=== PATIENT | female | born 1970 | race Caucasian/White ===

== ENCOUNTER 2019-05-10 12:49 | Emergency (ER) | payer OTHER, SELFPAY ==
[2019-05-10 13:05] VITALS: BP 131/86; PULSE 69; RESP 20; TEMP 37.6; O2SAT 100
--- NOTE | 2019-05-10 14:15 | ED.URI ---
HPI - URI/Sore Throat General Chief Complaint: Urogenital-Female Stated Complaint: chest cogestion/poss bladder infect Time Seen by Provider: 05/10/19 14:16 Source: patient and RN notes reviewed Mode of arrival: ambulatory Limitations: no limitations History of Present Illness HPI Narrative: 48 year old female who presents to express care with complaints of 3 day history of cough with expectoration of green mucous, itching ears, sinus congestion and headache, states that she has had some shortness of breath and wheezing when she lays down, has been taking Tylenol for her discomfort.She denies any shortness of breath or any wheezing at this time with lungs clear to auscultation, SAO2 100% on room air. Patient states also 3 days history of burning, frequency, urgency, dribbling,strong odor of urine and right lower abdomen pain which she rates as a 3/10. Patient denies any incidence of nausea or vomiting, or diarrhea or any flank pain, denies any known fevers at home.Patient denies any vaginal discharge or itching. MD elicited complaint: cough, rhinorrhea, nasal congestion and other (headache and UTI symptoms) Onset (ago): day(s) (3) Consistency: constant Severity: mild Pain scale (0-10): 3 Description of mucous: green Able to tolerate fluids by mouth: Yes Exacerbating factors: exertion and deep breaths Relieving factors: nothing Context: sick contacts (mother ill also) Associated symptoms: headache, rhinorrhea, nasal congestion, cough, abdominal pain, dysuria and other Treatments prior to arrival: acetaminophen Related Data Home Medications Medication Instructions Recorded Confirmed aripiprazole 20 mg PO DAILY 05/10/19 05/10/19 baclofen 20 mg PO TID 05/10/19 05/10/19 bupropion HCl 300 mg PO QAM 05/10/19 05/10/19 famotidine 20 mg PO BID 05/10/19 05/10/19 gabapentin 300 mg PO BID 05/10/19 05/10/19 levothyroxine 50 mcg PO DAILY 05/10/19 05/10/19 losartan 100 mg PO DAILY 05/10/19 05/10/19 mag [id number] rt xt tablet PO 05/10/19 omeprazole 40 mg PO DAILY 05/10/19 05/10/19 sertraline 100 mg PO DAILY 05/10/19 05/10/19 simvastatin 10 mg PO DAILY 05/10/19 05/10/19 trazodone 100 mg PO HS 05/10/19 05/10/19 triamterene-hydrochlorothiazid 1 tablet PO QAM 05/10/19 05/10/19 Allergies Allergy/AdvReac Type Severity Reaction Status Date / Time Sulfa (Sulfonamide Allergy Unknown Hives / Verified 09/15/18 11:47 Antibiotics) Red Face Review of Systems Review of Systems: Narrative: CONSTITUTIONAL: Reports no known fever, chills, or sweats. EYES: Denies visual changes, redness, or discharge. ENT:Positive rhinorrhea, congestion, no sore throat, itching ears. CARDIOVASCULAR: Denies chest pain, palpitations, or edema. RESPIRATORY:positive cough, reports dyspnea and wheezing when she lays down GASTROINTESTINAL: reports right lower abdominal pain,no nausea, vomiting, or diarrhea. GENITOURINARY: reports dysuria, urgency, dribbling strong odor to urine, no visible hematuria. SKIN: Denies rash or itching. MUSCULOSKELETAL: Denies back pain, joint pain, or myalgia. NEUROLOGIC:positive frontal headache, no numbness, or weakness. PSYCHIATRIC:History of anxiety or depression. All systems reviewed & are unremarkable except as noted in HPI and below PMFSH Past Medical History Medical History (Updated 05/13/19 @ 11:54 by Savanna Magallon NP) Arthritis Bipolar 1 disorder Chronic low back pain Depression GERD (gastroesophageal reflux disease) Hyperlipidemia Hypertension Hypothyroidism UTI (urinary tract infection) Vaginal yeast infection Surgical History Surgical History (Updated 05/13/19 @ 11:40 by Savanna Magallon NP) History of cholecystectomy Previous section Social History Social History (Updated 05/13/19 @ 11:46 by Savanna Magallon NP) Smoking status: Former smoker Living arrangements: with family Gender identity (if verbalized by the patient): Female Comments At time of signature, agree with nursing past me
--- NOTE | 2019-05-10 14:35 | PC.NURSE ---
NO UC ORDERED PER ANUEL
== END 2019-05-10 14:50 | disposition home or self-care (01) ==
PROVIDERS: Emergency Provider Registered Nurse; PCP Internal Medicine
DX: R30.0 Dysuria (principal); J06.9 Acute upper respiratory infection, unspecified; M19.90 Unspecified osteoarthritis, unspecified site; F32.9 Major depressive disorder, single episode, unspecified; K21.9 Gastro-esophageal reflux disease without esophagitis; E78.5 Hyperlipidemia, unspecified; I10 Essential (primary) hypertension; E03.9 Hypothyroidism, unspecified; Z87.891 Personal history of nicotine dependence
CPT/HCPCS: 81003; 87086; 87088; 99213; G0463

== ENCOUNTER 2021-07-02 15:39 | Emergency (ER) | payer OTHER, SELFPAY ==
--- NOTE | ~2021-07-02 | XR_ITS ---
EXAMINATION: XR chest 2V DATE: 07/02/2021 16:20 INDICATION: Cough TECHNIQUE: Frontal and lateral views of the chest are obtained COMPARISON: None available FINDINGS: The lungs are free of acute opacities. There is no pleural effusion or pneumothorax. The ca rdiomediastinal silhouette is normal. There is mild thoracic spondylosis. IMPRESSION: 1. No acute cardiopulmonary abnormality. Reviewed, dictated and finalized at location B.
[2021-07-02 15:47] VITALS: BP 130/82; PULSE 109; RESP 18; TEMP 36.8; O2SAT 98
--- NOTE | 2021-07-02 16:11 | ED.URI ---
HPI - URI/Sore Throat General Chief Complaint: Upper Respiratory Infection Stated Complaint: cough congestion Time Seen by Provider: 07/02/21 15:54 Source: patient and RN notes reviewed Mode of arrival: ambulatory Limitations: no limitations History of Present Illness HPI Narrative: Patient presents today complaining of a 4-day history of cough, mild shortness of breath, postnasal drip, nasal congestion. She has been taking Coricidin, Mucinex D with mild relief. Denies history of asthma, COPD. Denies fever. She is a non-smoker. MD elicited complaint: cough Related Data Home Medications Medication Instructions Recorded Confirmed aripiprazole 20 mg PO DAILY 05/10/19 07/02/21 baclofen 20 mg PO TID 05/10/19 07/02/21 levothyroxine 50 mcg PO DAILY 05/10/19 07/02/21 losartan 100 mg PO DAILY 05/10/19 07/02/21 simvastatin 10 mg PO DAILY 05/10/19 07/02/21 trazodone 100 mg PO HS 05/10/19 07/02/21 triamterene-hydrochlorothiazid 1 tablet PO QAM 05/10/19 07/02/21 diclofenac sodium 75 mg PO BID 07/02/21 07/02/21 dulaglutide [Trulicity] See Rx Instructions .ROUTE .COMPLEX 07/02/21 07/02/21 duloxetine [Cymbalta] 60 mg PO DAILY 07/02/21 07/02/21 fluconazole See Rx Instructions .ROUTE .COMPLEX 07/02/21 07/02/21 metoprolol succinate 12.5 mg PO DAILY 07/02/21 07/02/21 metronidazole See Rx Instructions .ROUTE .COMPLEX 07/02/21 07/02/21 omeprazole 40 mg PO DAILY 07/02/21 07/02/21 pregabalin 150 mg PO BID 07/02/21 07/02/21 sertraline 150 mg PO DAILY 07/02/21 07/02/21 Allergies Allergy/AdvReac Type Severity Reaction Status Date / Time Sulfa (Sulfonamide Allergy Unknown Hives / Verified 07/02/21 15:45 Antibiotics) Red Face Review of Systems Review of Systems: CONSTITUTIONAL: Denies body aches, fever, chills, or sweats. EYES: Denies visual changes, redness, or discharge. ENT: Denies rhinorrhea, sore throat, or otalgia.+ Congestion, postnasal drip CARDIOVASCULAR: Denies chest pain, palpitations, or edema. RESPIRATORY: + Cough, shortness of breath GASTROINTESTINAL: Denies abdominal pain, nausea, vomiting, or diarrhea. GENITOURINARY: Denies dysuria or hematuria. SKIN: Denies rash, itching, or wounds. MUSCULOSKELETAL: Denies back pain, joint pain, or myalgia. NEUROLOGIC: Denies headache, numbness, tingling, or weakness. PSYCH: Denies depression or anxiety. [facility] Past Medical History Medical History Arthritis Bipolar 1 disorder Chronic low back pain Depression GERD (gastroesophageal reflux disease) Hyperlipidemia Hypertension Hypothyroidism UTI (urinary tract infection) Vaginal yeast infection Surgical History Surgical History History of cholecystectomy Previous section Social History Social History Smoking status: Former smoker Gender identity (if verbalized by the patient): Female Comments At time of signature, I have reviewed and agree with nursing past medical, surgical, social and family history unless otherwise noted. Please see nursing chart for further information. There is no relevant family history pertinent to the presenting complaint Exam Narrative: GENERAL: Mildly ill-appearing, well-nourished, and in no acute distress. HEAD: Normocephalic, atraumatic. EYES: EOMI. No redness or drainage. Conjunctivae normal. ENT: Mucous membranes pink and moist. Nares clear. No rhinorrhea. TMs normal bilaterally. Throat normal. Uvula midline. NECK: Normal AROM. Supple. No lymphadenopathy. CHEST: No respiratory distress. Slight inspiratory wheeze in the left upper lobe. Slight end expiratory wheeze throughout. HEART: Regular rate and rhythm. No murmur appreciated. Normal peripheral pulses. EXTREMITIES: Normal range of motion. No edema. SKIN: Warm, dry, no rash. Capillary refill normal. Normal skin turgor. NEURO: No focal deficits
== END 2021-07-02 16:51 | disposition home or self-care (01) ==
PROVIDERS: Emergency Provider Nurse Practitioner; PCP Internal Medicine
DX: J40 Bronchitis, not specified as acute or chronic (principal); J06.9 Acute upper respiratory infection, unspecified; R05.9 Cough, unspecified; E78.5 Hyperlipidemia, unspecified; I10 Essential (primary) hypertension; E03.9 Hypothyroidism, unspecified; Z87.891 Personal history of nicotine dependence
CPT/HCPCS: 71046; 99213; G0463

== ENCOUNTER 2021-11-14 15:51 | Emergency (ER) | payer OTHER, SELFPAY ==
[2021-11-14 15:59] VITALS: PULSE 85; RESP 20; TEMP 36.4; O2SAT 100
[2021-11-14 16:00] VITALS: BP 150/70
--- NOTE | 2021-11-14 17:00 | ED.FEMALEGU ---
HPI - Female Genitourinary General Chief complaint: Urogenital-Female Stated complaint: poss bladder infection Source: patient, RN notes reviewed and old records reviewed Mode of arrival: ambulatory Limitations: no limitations History of Present Illness HPI Narrative: 50 year old female presents to express care with complaints of 3-week history of lower abdominal pain, burning with urination states history of urinary tract infections and trichomonas. Patient reports that she is sexually active without use of protection, denies present menses states has not had a period for 2 years. Patient reports that she has no vaginal discharge or any vaginal itching, denies any back pain. MD elicited complaint: dysuria, UTI and other (history of trichomonas) Onset (ago): week(s) (3) Severity scale (1-10): 5 Related Data Home Medications Medication Instructions Recorded Confirmed aripiprazole 20 mg tablet 20 mg PO DAILY 05/10/19 11/14/21 baclofen 5 mg tablet 20 mg PO TID 05/10/19 11/14/21 levothyroxine 50 mcg tablet 50 mcg PO DAILY 05/10/19 11/14/21 losartan 100 mg tablet 100 mg PO DAILY 05/10/19 11/14/21 simvastatin 10 mg tablet 10 mg PO DAILY 05/10/19 11/14/21 trazodone 100 mg tablet 100 mg PO HS 05/10/19 11/14/21 triamterene 37.5 1 tablet PO QAM 05/10/19 11/14/21 mg-hydrochlorothiazide 25 mg tablet diclofenac sodium 75 mg 75 mg PO BID 07/02/21 11/14/21 tablet,delayed release dulaglutide 0.75 mg/0.5 mL See Rx Instructions .Route .COMPLEX 07/02/21 11/14/21 subcutaneous pen injector (Trulicity) duloxetine 60 mg capsule,delayed 60 mg PO DAILY 07/02/21 11/14/21 release (Cymbalta) metoprolol succinate 25 mg 12.5 mg PO DAILY 07/02/21 11/14/21 tablet,extended release 24 hr metronidazole 500 mg tablet See Rx Instructions .Route .COMPLEX 07/02/21 11/14/21 omeprazole 40 mg capsule,delayed 40 mg PO DAILY 07/02/21 11/14/21 release pregabalin 150 mg capsule 150 mg PO BID 05/06/22 09/18/22 sertraline 150 mg capsule 150 mg PO DAILY 07/02/21 11/14/21 Allergies Allergy/AdvReac Type Severity Reaction Status Date / Time Sulfa (Sulfonamide Allergy Unknown Hives / Verified 11/14/21 16:21 Antibiotics) Red Face Review of Systems Review of Systems: CONSTITUTIONAL: Denies fever, chills, or sweats. EYES: Denies visual changes, redness, or discharge. ENT: Denies rhinorrhea, congestion, sore throat, or otalgia. CARDIOVASCULAR: Denies chest pain, palpitations, or edema. RESPIRATORY: Denies cough or dyspnea. GASTROINTESTINAL: lower medial abdominal pain, no nausea, vomiting, or diarrhea. GENITOURINARY: positive for dysuria no hematuria. SKIN: Denies rash or itching. MUSCULOSKELETAL: Denies back pain, joint pain, or myalgia. NEUROLOGIC: Denies headache, numbness, or weakness. PSYCHIATRIC:Positive history of anxiety or depression. All systems reviewed & are unremarkable except as noted in HPI and below PMFSH Past Medical History Medical History Arthritis Bipolar 1 disorder Chronic low back pain Depression GERD (gastroesophageal reflux disease) Hyperlipidemia Hypertension Hypothyroidism UTI (urinary tract infection) Vaginal yeast infection Surgical History Surgical History History of cholecystectomy Previous section Social History Social History Smoking status: Former smoker Gender identity (if verbalized by the patient): Female Comments At time of signature, agree with nursing past medical, surgical, social and family history. There is no relevant family history pertinent to the presenting complaint Exam Narrative: GENERAL: Well-appearing, well-nourished, and in no acute distress. HEAD: Normocephalic, atraumatic. EYES: PERRLA and EOMI. ENT: Nares clear, no rhinorrhea or epistaxis. Mucous membranes moist.TM's normal with good light reflex, throa
[2021-11-14] MEDS: cefTRIAXone 500 MG, LIDOCAINE HCL 1% LOCAL INJ 1 ML IM (17:16)
== END 2021-11-14 17:40 | disposition home or self-care (01) ==
PROVIDERS: Emergency Provider Registered Nurse; PCP Internal Medicine
DX: R30.0 Dysuria (principal); Z20.2 Contact with and (suspected) exposure to infections with a predominantly sexual mode of transmission; M19.90 Unspecified osteoarthritis, unspecified site; K21.9 Gastro-esophageal reflux disease without esophagitis; E78.5 Hyperlipidemia, unspecified; I10 Essential (primary) hypertension; E03.9 Hypothyroidism, unspecified; F32.A Depression, unspecified
CPT/HCPCS: 81003; 87077; 87086; 87186; 87491; 87591; 87661; 96372; 99214; G0463; J0696

== ENCOUNTER 2022-03-04 14:05 | Emergency (ER) | payer OTHER, SELFPAY ==
[2022-03-04 14:10] VITALS: BP 138/106; PULSE 123; RESP 24; TEMP 36.9; O2SAT 98
--- NOTE | 2022-03-04 14:15 | ED.URI ---
HPI - URI/Sore Throat General Chief Complaint: Upper Respiratory Infection Stated Complaint: cold cough Time Seen by Provider: 03/04/22 14:15 Source: patient Mode of arrival: ambulatory Limitations: no limitations History of Present Illness HPI Narrative: Alona is a 51-year-old female patient presenting to the clinic today with complaints of nasal congestion, cough, and sinus pressure x3 weeks. She reports she is having yellow nasal drainage and a productive cough with green phlegm. States she is slightly short of breath. MD elicited complaint: sore throat and nasal congestion Related Data Home Medications Medication Instructions Recorded Confirmed aripiprazole 20 mg tablet 20 mg PO DAILY 05/10/19 03/04/22 baclofen 5 mg tablet 20 mg PO TID 05/10/19 03/04/22 levothyroxine 50 mcg tablet 50 mcg PO DAILY 05/10/19 03/04/22 losartan 100 mg tablet 100 mg PO DAILY 05/10/19 03/04/22 simvastatin 10 mg tablet 10 mg PO DAILY 05/10/19 03/04/22 trazodone 100 mg tablet 100 mg PO HS 05/10/19 03/04/22 triamterene 37.5 1 tablet PO QAM 05/10/19 03/04/22 mg-hydrochlorothiazide 25 mg tablet diclofenac sodium 75 mg 75 mg PO BID 07/02/21 03/04/22 tablet,delayed release duloxetine 60 mg capsule,delayed 60 mg PO DAILY 07/02/21 03/04/22 release (Cymbalta) metoprolol succinate 25 mg 12.5 mg PO DAILY 07/02/21 03/04/22 tablet,extended release 24 hr omeprazole 40 mg capsule,delayed 40 mg PO DAILY 07/02/21 03/04/22 release pregabalin 150 mg capsule 150 mg PO BID 07/02/21 03/04/22 sertraline 150 mg capsule 150 mg PO DAILY 07/02/21 03/04/22 Allergies Allergy/AdvReac Type Severity Reaction Status Date / Time Sulfa (Sulfonamide Allergy Unknown Hives / Verified 03/04/22 14:15 Antibiotics) Red Face Review of Systems Review of Systems: Pertinent positives per HPI. Patient denies any fever, chills, rash, headache, visual changes, dizziness, cough, shortness of breath, chest pain, palpitations, nausea, vomiting, diarrhea, constipation, abdominal pain, or any urinary issues. PMFSH Past Medical History Medical History Arthritis Bipolar 1 disorder Chronic low back pain Depression GERD (gastroesophageal reflux disease) Hyperlipidemia Hypertension Hypothyroidism UTI (urinary tract infection) Vaginal yeast infection Surgical History Surgical History History of cholecystectomy Previous section Social History Social History Smoking status: Former smoker Gender identity (if verbalized by the patient): Female Comments At the time of my signature, I reviewed and agree with the nursing past medical, surgical, social, and family history. There is no relevant family history pertinent to the patient complaint. Exam Narrative: General: Well-developed, obese, in no apparent distress Head: Normocephalic, atraumatic Eyes: Pupils equally round and reactive to light bilaterally, EOM intact, sclera and conjunctive clear, no discharge, lids normal Ears: TMs intact and clear, ear canals clear, no drainage, grossly hearing normal. Nose: Nares patent, yellow nasal discharge, moderate inflammation, maxillary and frontal sinus tenderness. Mouth: Oral pharynx without lesions or masses, good dentition, MMM. postnasal drip, oropharynx red Neck: Supple, trachea midline, no enlargement of anterior or posterior cervical nodes, no thyroid masses or goiter palpable. Cardio: Regular rate and rhythm, s1 and s2 normal, no murmur appreciated. Resp: Clear to auscultation bilaterally, no rhonchi, rales, wheezing or rubs Course Course Emergency Course: Portions of this record may have been created with voice recognition software. Level of Care: Express Care Visit Vital Signs Vital signs: Vital Signs Temperature 36.9 C 03/04/22 14:10 Pulse Rate 1
== END 2022-03-04 14:28 | disposition home or self-care (01) ==
PROVIDERS: Emergency Provider Nurse Practitioner Family; PCP Internal Medicine
DX: J01.90 Acute sinusitis, unspecified (principal); M19.90 Unspecified osteoarthritis, unspecified site; K21.9 Gastro-esophageal reflux disease without esophagitis; E78.5 Hyperlipidemia, unspecified; I10 Essential (primary) hypertension; E03.9 Hypothyroidism, unspecified; F32.A Depression, unspecified
CPT/HCPCS: 99213; G0463

== ENCOUNTER 2022-07-13 14:11 | Emergency (ER) | payer OTHER, SELFPAY ==
[2022-07-13 14:15] VITALS: BP 130/80; PULSE 110; RESP 18; TEMP 37.4; O2SAT 98
--- NOTE | 2022-07-13 14:25 | ED.URI ---
HPI - URI/Sore Throat General Chief Complaint: Upper Respiratory Infection Stated Complaint: Headache/Congestion Time Seen by Provider: 07/13/22 14:25 Source: patient Mode of arrival: ambulatory Limitations: no limitations History of Present Illness HPI Narrative: 51 yo F presents with c/o nasal congestion, facial pain, bilateral ear pressure, PND and sore throat for 10 days. Has tried benadryl with no relief of symptoms. Afebrile. Also states had burning with urination this morning one time. No other urinary symptoms since. All systems reviewed and negative except as noted above. Related Data Home Medications Medication Instructions Recorded Confirmed aripiprazole 20 mg tablet 20 mg PO DAILY 05/10/19 03/04/22 baclofen 5 mg tablet 20 mg PO TID 05/10/19 03/04/22 levothyroxine 50 mcg tablet 50 mcg PO DAILY 05/10/19 03/04/22 losartan 100 mg tablet 100 mg PO DAILY 05/10/19 03/04/22 simvastatin 10 mg tablet 10 mg PO DAILY 05/10/19 03/04/22 trazodone 100 mg tablet 100 mg PO HS 05/10/19 03/04/22 triamterene 37.5 1 tablet PO QAM 05/10/19 03/04/22 mg-hydrochlorothiazide 25 mg tablet diclofenac sodium 75 mg 75 mg PO BID 07/02/21 03/04/22 tablet,delayed release duloxetine 60 mg capsule,delayed 60 mg PO DAILY 07/02/21 03/04/22 release (Cymbalta) metoprolol succinate 25 mg 12.5 mg PO DAILY 07/02/21 03/04/22 tablet,extended release 24 hr omeprazole 40 mg capsule,delayed 40 mg PO DAILY 07/02/21 03/04/22 release pregabalin 150 mg capsule 150 mg PO BID 07/02/21 03/04/22 sertraline 150 mg capsule 150 mg PO DAILY 07/02/21 03/04/22 Allergies Allergy/AdvReac Type Severity Reaction Status Date / Time Sulfa (Sulfonamide Allergy Unknown Hives / Verified 03/04/22 14:15 Antibiotics) Red Face Review of Systems Review of Systems: CONSTITUTIONAL: Denies fever, chills, or sweats. EYES: Denies visual changes, redness, or discharge. ENT: Reports rhinorrhea, congestion, facial pain sore throat, bilateral ear pressure. CARDIOVASCULAR: Denies chest pain, palpitations, or edema. RESPIRATORY: Denies cough or dyspnea. GASTROINTESTINAL: Denies abdominal pain, nausea, vomiting, or diarrhea. GENITOURINARY: Reports dysuria. Denies hematuria. SKIN: Denies rash or itching. MUSCULOSKELETAL: Denies back pain, joint pain, or myalgia. NEUROLOGIC: Denies headache, numbness, or weakness. PSYCHIATRIC: Denies anxiety or depression. All other systems reviewed are negative, except as documented in HPI. [facility] Past Medical History Medical History Arthritis Bipolar 1 disorder Chronic low back pain Depression GERD (gastroesophageal reflux disease) Hyperlipidemia Hypertension Hypothyroidism UTI (urinary tract infection) Vaginal yeast infection Surgical History Surgical History History of cholecystectomy Previous section Social History Social History Smoking status: Former smoker Living arrangements: with family Gender identity (if verbalized by the patient): Female Comments At time of signature, agree with nursing past medical, surgical, social and family history. There is no relevant family history pertinent to the presenting complaint. Exam Narrative: GENERAL: This is a well-nourished, well-developed patient, in no apparent distress. HEAD: normocephalic, atraumatic. EYES: PERRL. Sclera clear/white. Vision is grossly intact. EARS: External ears normal, auditory canals clear and without drainage, fluid bilateral TMs without perforation. NOSE: External nose normal with moderate congestion, clear nasal drainage. Bilateral maxillary sinus tenderness. THROAT: Mucous membranes moist, erythema with swelling, clear postnasal drainage. NECK: Neck supple, non-tender without lymphadenopathy, masses or thyromegaly. CARDIOVASCULAR: Regular rate a
== END 2022-07-13 14:39 | disposition home or self-care (01) ==
PROVIDERS: Emergency Provider Nurse Practitioner Family; PCP Internal Medicine
DX: J01.90 Acute sinusitis, unspecified (principal); R30.0 Dysuria; M19.90 Unspecified osteoarthritis, unspecified site; K21.9 Gastro-esophageal reflux disease without esophagitis; I10 Essential (primary) hypertension; E03.9 Hypothyroidism, unspecified; F32.A Depression, unspecified
CPT/HCPCS: 81003; 99213; G0463

== ENCOUNTER 2022-11-29 17:19 | Emergency (ER) | payer OTHER, SELFPAY ==
[2022-11-29 17:30] VITALS: BP 135/97; PULSE 89; RESP 20; TEMP 36.7; O2SAT 95
== END 2022-11-29 17:57 | disposition left against medical advice (07) ==
PROVIDERS: Emergency Provider Registered Nurse; PCP Internal Medicine
DX: R21 Rash and other nonspecific skin eruption (principal)
CPT/HCPCS: 99199

== ENCOUNTER 2023-05-10 14:05 | Emergency (ER) | payer OTHER, SELFPAY ==
[2023-05-10 14:10] VITALS: BP 143/119; PULSE 88; RESP 22; TEMP 36.5; O2SAT 99
[2023-05-10 14:16] VITALS: BP 153/109
[2023-05-10 14:24] VITALS: BP 153/109; PULSE 88; RESP 22; TEMP 36.5; O2SAT 99
--- NOTE | 2023-05-10 14:46 | ED.URI ---
HPI - URI/Sore Throat General Chief Complaint: Upper Respiratory Infection Stated Complaint: long time cold symptoms Time Seen by Provider: 05/10/23 14:40 Source: patient, RN notes reviewed and old records reviewed Mode of arrival: ambulatory Limitations: no limitations History of Present Illness HPI Narrative: 52 year old female who presents to [facility] care with complaints of being ill for about a month and was hospitalized at [facility] for low oxygen saturation and discharged home on . Patient reports that she was sent home with nebulizer machine and albuterol , tessalon Perles, and steroids. Patient reports that she has bad headache today and cough continues with sinus congestion and drainage, denies sore throat or recent fevers. Patient reports that she did nebulizer treatment at 0600 today and has been taking Mucinex, has completed steroids. MD elicited complaint: cough, sore throat, rhinorrhea and nasal congestion Pertinent past history: sinusitis Onset (ago): week(s) (sick she reports month) Severity: moderate Description of mucous: green Treatments prior to arrival: other (nebulizer this morning and mucinex) Related Data Home Medications Medication Instructions Recorded Confirmed levothyroxine 50 mcg tablet 50 mcg PO DAILY 05/10/19 05/10/23 simvastatin 10 mg tablet 10 mg PO DAILY 05/10/19 05/10/23 trazodone 100 mg tablet 100 mg PO HS 05/10/19 05/10/23 triamterene 37.5 1 tablet PO QAM 05/10/19 05/10/23 mg-hydrochlorothiazide 25 mg tablet duloxetine 60 mg capsule,delayed 60 mg PO DAILY 07/02/21 05/10/23 release (Cymbalta) metoprolol succinate 25 mg 25 mg PO DAILY 07/02/21 05/10/23 tablet,extended release 24 hr omeprazole 40 mg capsule,delayed 40 mg PO DAILY 07/02/21 05/10/23 release albuterol sulfate 2.5 mg/3 mL 2.5 mg continuous nebulization 05/10/23 05/10/23 (0.083 %) solution for nebulization Q4-6H PRN Shortness Of Breath Or Wheezing aripiprazole 400 mg intramuscular 400 mg IM MONTHLY 05/10/23 05/10/23 suspension,extended release (Fahad Gregorya) benzonatate 100 mg capsule 100 mg PO Q8H PRN Cough 05/10/23 05/10/23 benztropine 0.5 mg tablet 0.5 mg PO DAILY 05/10/23 05/10/23 gabapentin 600 mg tablet 600 mg PO TID 05/10/23 05/10/23 hydroxyzine HCl 25 mg tablet 25 mg PO BID 05/10/23 05/10/23 irbesartan 150 mg tablet 150 mg PO DAILY 05/10/23 05/10/23 metformin 500 mg tablet,extended 500 mg PO DAILY 05/10/23 05/10/23 release 24 hr tizanidine 4 mg tablet 4 mg PO TID PRN Muscle Spasm 05/10/23 05/10/23 Allergies Allergy/AdvReac Type Severity Reaction Status Date / Time Sulfa (Sulfonamide Allergy Unknown Hives / Verified 05/10/23 14:13 Antibiotics) Red Face Review of Systems Review of Systems: CONSTITUTIONAL: Reports malaise,no recent chills, sweats, or fever. EYES: Denies visual changes, redness, or discharge. ENT: Reports rhinorrhea, congestion, sinus pain,no otalgia and no sore throat. CARDIOVASCULAR: Denies chest pain, palpitations, or edema. RESPIRATORY: Reports acute cough.? Denies acute dyspnea. GASTROINTESTINAL: Denies abdominal pain, nausea, vomiting, diarrhea SKIN: Denies rash or itching. MUSCULOSKELETAL: Denies myalgia. NEUROLOGIC: Reports headache. All systems reviewed & are unremarkable except as noted in HPI and below PMFSH Past Medical History Medical History Arthritis Bipolar 1 disorder Chronic low back pain Depression GERD (gastroesophageal reflux disease) Hyperlipidemia Hypertension Hypothyroidism UTI (urinary tract infection) Vaginal yeast infection Surgical History Surgical History History of cholecystectomy Previous section Social History Social History Smoking status: Former smoker Living arrangements: with family Gender identity (if verbalize
== END 2023-05-10 15:10 | disposition home or self-care (01) ==
PROVIDERS: Emergency Provider Registered Nurse; PCP Internal Medicine
DX: J01.40 Acute pansinusitis, unspecified (principal); M19.90 Unspecified osteoarthritis, unspecified site; K21.9 Gastro-esophageal reflux disease without esophagitis; E78.5 Hyperlipidemia, unspecified; I10 Essential (primary) hypertension; E03.9 Hypothyroidism, unspecified; F32.A Depression, unspecified
CPT/HCPCS: 99213; G0463

== ENCOUNTER 2023-07-17 14:22 | Emergency (ER) | payer OTHER, SELFPAY | END 2023-07-17 14:55 | disposition left against medical advice (07) | LOC: EXPBETH 14:25 | PROVIDERS: Emergency Provider Nurse Practitioner Family; PCP Internal Medicine | DX: Z53.21 Procedure and treatment not carried out due to patient leaving prior to being seen by health care provider (principal) | CPT/HCPCS: 99199 ==

== ENCOUNTER 2023-09-18 12:01 | Emergency (ER) | payer OTHER, SELFPAY ==
[2023-09-18 12:06] VITALS: BP 152/100; PULSE 90; RESP 20; TEMP 37.5; O2SAT 97
--- NOTE | 2023-09-18 12:39 | ED.FEMALEGU ---
HPI - Female Genitourinary General Chief complaint: Urogenital-Female Stated complaint: Urinary Problem/Vaginal Issue Time Seen by Provider: 09/18/23 12:20 Source: patient, RN notes reviewed and old records reviewed Mode of arrival: ambulatory Limitations: no limitations History of Present Illness HPI Narrative: 52 year old female who [facility] with complaints of 3-4 day history of lower back discomfort and some frequency of urination, with burning with urination and some lower abdomen discomfort and some nausea. Patient reports that she has not taken any OTC medication for her symptoms.Patient reports that she does drink coffee and soda daily, encouraged her to increase water intake. MD elicited complaint: other (burning with urination, frequency of urination) Onset (ago): day(s) (3-4 days) Severity scale (1-10): 2 Vaginal discharge: none Vaginal bleeding: none Urinary symptoms: Dysuria and Frequency Treatment prior to arrival: none Related Data Home Medications Medication Instructions Recorded Confirmed levothyroxine 50 mcg tablet 50 mcg PO DAILY 05/10/19 05/10/23 simvastatin 10 mg tablet 10 mg PO DAILY 05/10/19 05/10/23 trazodone 100 mg tablet 100 mg PO HS 05/10/19 05/10/23 triamterene 37.5 1 tablet PO QAM 05/10/19 05/10/23 mg-hydrochlorothiazide 25 mg tablet duloxetine 60 mg capsule,delayed 60 mg PO DAILY 07/02/21 05/10/23 release (Cymbalta) metoprolol succinate 25 mg 25 mg PO DAILY 07/02/21 05/10/23 tablet,extended release 24 hr omeprazole 40 mg capsule,delayed 40 mg PO DAILY 07/02/21 05/10/23 release albuterol sulfate 2.5 mg/3 mL 2.5 mg continuous nebulization 05/10/23 05/10/23 (0.083 %) solution for nebulization Q4-6H PRN Shortness Of Breath Or Wheezing aripiprazole 400 mg intramuscular 400 mg IM MONTHLY 05/10/23 05/10/23 suspension,extended release (Abilify Maintena) benzonatate 100 mg capsule 100 mg PO Q8H PRN Cough 05/10/23 05/10/23 benztropine 0.5 mg tablet 0.5 mg PO DAILY 05/10/23 05/10/23 gabapentin 600 mg tablet 600 mg PO TID 05/10/23 05/10/23 hydroxyzine HCl 25 mg tablet 25 mg PO BID 05/10/23 05/10/23 irbesartan 150 mg tablet 150 mg PO DAILY 05/10/23 05/10/23 metformin 500 mg tablet,extended 500 mg PO DAILY 05/10/23 05/10/23 release 24 hr tizanidine 4 mg tablet 4 mg PO TID PRN Muscle Spasm 05/10/23 05/10/23 Allergies Allergy/AdvReac Type Severity Reaction Status Date / Time Sulfa (Sulfonamide Allergy Unknown Hives / Verified 05/10/23 14:13 Antibiotics) Red Face Review of Systems Review of Systems: CONSTITUTIONAL: Denies fever, chills, or sweats. CARDIOVASCULAR: Denies chest pain, palpitations, or edema. RESPIRATORY: Denies cough or dyspnea. GASTROINTESTINAL: Reports some suprapubic tenderness,positive nausea, no vomiting, or diarrhea. GENITOURINARY: Reports dysuria, frequency, urgency. Denies flank pain or hematuria. SKIN: Denies rash or itching. MUSCULOSKELETAL: Reports some lower back pain or myalgia. Denies CVA tenderness NEUROLOGIC: Denies headache All systems reviewed & are unremarkable except as noted in HPI and below PMFSH Past Medical History Medical History Arthritis Bipolar 1 disorder Chronic low back pain Depression GERD (gastroesophageal reflux disease) Hyperlipidemia Hypertension Hypothyroidism UTI (urinary tract infection) Vaginal yeast infection Surgical History Surgical History History of cholecystectomy Previous section Social History Social History Smoking status: Former smoker Living arrangements: with family Gender identity (if verbalized by the patient): Female Comments At time of signature, agree with nursing past medical, surgical, social and family history. There is no relevant family history pertinent to the presenting complaint Exam N
[2023-09-18 13:47] LABS: EDUAAPPEAR Clear; EDUABILI Negative; EDUABLOOD Negative; EDUACOLOR1 Yellow; EDUAGLUCOSE Negative; EDUAKETONE Negative; EDUALEUKO Negative; EDUANITRATE Negative; EDUAPH 7.5; EDUAPROTEIN Negative; EDUASPGRAVITY 1.015; EDUAUROBILI 0.2
== END 2023-09-18 13:06 | disposition home or self-care (01) ==
PROVIDERS: Emergency Provider Registered Nurse; PCP Internal Medicine
DX: R30.0 Dysuria (principal); R35.0 Frequency of micturition; R10.30 Lower abdominal pain, unspecified; Z87.891 Personal history of nicotine dependence; M19.90 Unspecified osteoarthritis, unspecified site; K21.9 Gastro-esophageal reflux disease without esophagitis; E78.5 Hyperlipidemia, unspecified; I10 Essential (primary) hypertension; E03.9 Hypothyroidism, unspecified
CPT/HCPCS: 81003; 87086; 87088; 99213; G0463

== ENCOUNTER 2023-11-28 15:42 | Emergency (ER) | payer OTHER, SELFPAY ==
--- NOTE | 2023-11-28 15:52 | ED.GENADULT ---
HPI - General Adult General Chief complaint: Dental/Oral Stated complaint: Tooth pain Time Seen by Provider: 11/28/23 15:53 Source: patient, RN notes reviewed and old records reviewed Mode of arrival: ambulatory Limitations: no limitations History of Present Illness HPI narrative: 52-year-old female to [facility] with complaint of right upper gingival pain with hypersensitivity to cold and heat since yesterday. Patient endorsing discomfort at 6 to 7/10. Patient reports treating at home with Tylenol with little relief. Patient denies dental caries, dental fractures, history of dental abscesses, Fever, recent illness, pertinent medical history. Patient hypertensive in triage. Patient resting in exam room in no acute distress. Respirations even and nonlabored. Patient able to speak in complete sentences without difficulty. Patient able to tolerate fluids by mouth. Related Data Home Medications Medication Instructions Recorded Confirmed levothyroxine 50 mcg tablet 50 mcg PO DAILY 05/10/19 11/28/23 simvastatin 10 mg tablet 10 mg PO DAILY 05/10/19 11/28/23 trazodone 100 mg tablet 100 mg PO HS 05/10/19 11/28/23 triamterene 37.5 1 tablet PO QAM 05/10/19 11/28/23 mg-hydrochlorothiazide 25 mg tablet duloxetine 60 mg capsule,delayed 60 mg PO DAILY 07/02/21 11/28/23 release (Cymbalta) metoprolol succinate 25 mg 25 mg PO DAILY 07/02/21 11/28/23 tablet,extended release 24 hr omeprazole 40 mg capsule,delayed 40 mg PO DAILY 07/02/21 11/28/23 release albuterol sulfate 2.5 mg/3 mL 2.5 mg continuous nebulization 05/10/23 11/28/23 (0.083 %) solution for nebulization Q4-6H PRN Shortness Of Breath Or Wheezing aripiprazole 400 mg intramuscular 400 mg IM MONTHLY 05/10/23 11/28/23 suspension,extended release (Abilifbritta Maintena) benztropine 0.5 mg tablet 0.5 mg PO DAILY 05/10/23 11/28/23 gabapentin 600 mg tablet 600 mg PO TID 05/10/23 11/28/23 hydroxyzine HCl 25 mg tablet 25 mg PO BID 05/10/23 11/28/23 irbesartan 150 mg tablet 150 mg PO DAILY 05/10/23 11/28/23 metformin 500 mg tablet,extended 500 mg PO DAILY 05/10/23 11/28/23 release 24 hr tizanidine 4 mg tablet 4 mg PO TID PRN Muscle Spasm 05/10/23 11/28/23 metformin 500 mg tablet,extended mg PO 11/28/23 11/28/23 release 24 hr Allergies Allergy/AdvReac Type Severity Reaction Status Date / Time Sulfa (Sulfonamide Allergy Unknown Hives / Verified 11/28/23 16:07 Antibiotics) Red Face Review of Systems Review of Systems: All systems reviewed & are unremarkable except as noted in HPI and below Constitutional: Constitutional: Reports no additional constitutional complaints Eyes: Eyes: Reports no additional eye complaints ENT: Reports system reviewed and no additional complaints, except as documented and Reports other ( Right upper gingival pain and sensitivity) Cardiovascular: Cardiovascular: Reports no additional cardiovascular complaints, Denies chest pain and Denies dyspnea Respiratory: Respiratory: Reports no additional respiratory complaints, Denies cough and Denies dyspnea Musculoskeletal: Musculoskeletal: Reports no additional musculoskeletal complaints Neurologic: Reports system reviewed and no additional complaints, except as documented Psychiatric: Psychiatric: Reports no additional psychiatric complaints [facility] Past Medical History Medical History Arthritis Bipolar 1 disorder Chronic low back pain Depression GERD (gastroesophageal reflux disease) Hyperlipidemia Hypertension Hypothyroidism UTI (urinary tract infection) Vaginal yeast infection Surgical History Surgical History History of cholecystectomy Previous section Social History Social History Smoking status: Former smoker Living arrangements: with family Gender identity (if verbalized
[2023-11-28 16:01] VITALS: BP 168/100; PULSE 99; RESP 20; O2SAT 98
== END 2023-11-28 16:30 | disposition home or self-care (01) ==
PROVIDERS: Emergency Provider Nurse Practitioner Family; PCP Internal Medicine
DX: K05.10 Chronic gingivitis, plaque induced (principal); Z87.891 Personal history of nicotine dependence; M19.90 Unspecified osteoarthritis, unspecified site; K21.9 Gastro-esophageal reflux disease without esophagitis; E78.5 Hyperlipidemia, unspecified; I10 Essential (primary) hypertension; E03.9 Hypothyroidism, unspecified; F32.A Depression, unspecified
CPT/HCPCS: 99211; G0463

== ENCOUNTER 2024-02-25 16:11 | Emergency (ER) | payer OTHER, SELFPAY ==
--- NOTE | 2024-02-25 16:30 | ED.FEMALEGU ---
HPI - Female Genitourinary General Chief complaint: Urogenital-Female Stated complaint: bladder inf History of Present Illness HPI Narrative: Patient is a 53-year-old female, past medical history significant for type 2 diabetes, obesity, hyperlipidemia and bipolar disorder, presents to [facility] with 2-3 day history of dysuria, increased frequency and urgency, without associated fevers chills or flank pain. She denies abnormal vaginal discharge or concern for STI. She does have history of UTI. She denies any additional associated symptoms modifying factors. Related Data Home Medications ?Medication ?Instructions ?Recorded ?Confirmed ?Last Taken ?Type levothyroxine 50 mcg tablet 50 mcg PO DAILY 05/10/19 11/28/23 Unknown History simvastatin 10 mg tablet 10 mg PO DAILY 05/10/19 11/28/23 Unknown History trazodone 100 mg tablet 100 mg PO HS 05/10/19 11/28/23 Unknown History triamterene 37.5 1 tablet PO QAM 05/10/19 11/28/23 Unknown History mg-hydrochlorothiazide 25 mg tablet duloxetine 60 mg capsule,delayed 60 mg PO DAILY 07/02/21 11/28/23 Unknown History release (Cymbalta) omeprazole 40 mg capsule,delayed 40 mg PO DAILY 07/02/21 11/28/23 Unknown History release aripiprazole 400 mg intramuscular 400 mg IM MONTHLY 05/10/23 11/28/23 Unknown History suspension,extended release (Abilify Maintena) benztropine 0.5 mg tablet 0.5 mg PO DAILY 05/10/23 11/28/23 Unknown History gabapentin 600 mg tablet 600 mg PO TID 05/10/23 11/28/23 Unknown History metformin 500 mg tablet,extended 500 mg PO DAILY 05/10/23 11/28/23 Unknown History release 24 hr tizanidine 4 mg tablet 4 mg PO TID PRN Muscle Spasm 05/10/23 11/28/23 Unknown History metformin 500 mg tablet,extended mg PO 11/28/23 11/28/23 Unknown History release 24 hr Allergies Allergy/AdvReac Type Severity Reaction Status Date / Time Sulfa (Sulfonamide Allergy Unknown Hives / Verified 02/25/24 16:23 Antibiotics) Red Face Review of Systems Genitourinary: Genitourinary: Reports as per [facility] Past Medical History Medical History Arthritis Bipolar 1 disorder Chronic low back pain Depression GERD (gastroesophageal reflux disease) Hyperlipidemia Hypertension Hypothyroidism UTI (urinary tract infection) Vaginal yeast infection Surgical History Surgical History History of cholecystectomy Previous section Social History Social History Smoking status: Former smoker Living arrangements: with family Gender identity (if verbalized by the patient): Female Exam Const: General: healthy appearing and no acute distress Nutritional Appearance: obese Orientation/consciousness: patient oriented x3 Limitations: no limitations HENMT: Head: normal to inspection Ears: external ears normal and TM's normal bilaterally Face/Nose/Sinus: Normal external nose present and Normal nares present Face and sinus: normal facial exam Mouth: Yes Normal oral and palatal mucosa present Teeth and gingiva: dentition normal Throat: posterior oropharynx normal Eyes: Conjunctivae: conjunctivae normal Pupils: Equal, round and reactive pupils present EOM: EOMs intact bilaterally Neck: Neck: normal visual inspection, no lymphadenopathy and no meningeal signs Chest: Chest palpation & inspection: normal inspection of the chest Resp: Effort & Inspection: normal respiratory effort Auscultation: clear to auscultation bilaterally Cardio: Rate: regular rate Rhythm: regular rhythm : General: Yes bladder normal to palpation Other: Mild suprapubic tenderness to palpation noted, no focal discomfort, no CVA tenderness to percussion Skin: General skin exam: normal color Rashes: no rashes Wounds: no wounds Neuro: General: patient oriented x3, moves all extremities, no meningeal signs, no focal motor deficits and CN's II-XI intact bilaterally Cranial nerves: Yes Nystagmus not present Speech: normal speech Gait exam (Neuro): Normal gait present Extrem: General: normal to inspection, no clubbing, cyanosis or edema and no pedal edema Psych: Appearance: grossly normal Course Course Emergency Course: Urine Culture Final 11/17/21 Q Organism 1 Escherichia Coli SOURCE: URINE, CLEAN CATCH STATUS: FINAL ISOLATE 1: 10,000-49,000 CFU/mL of Escherichia coli NOTE: THIS RESULT IS FLAGGED ABNORMAL THIS TEST WAS PERFORMED AT: [place] [address] PRATEEK KNUTSON MD 1. Escherichia Coli M.I.C. RX --------- --- Amoxicillin/Clavulanate 4 S Ampicillin <=2 S Ampicillin/Sulbactam <=2 S Cefazolin <=4 NR For infections other than uncomplicated UTI caused by E. coli, K. pneumoniae or P. mirabilis: Cefazolin is resistant if EZ > or = 8 mcg/mL. (Distinguishing susceptible versus intermediate for isolates with EZ < or = 4 mcg/mL requires additional testing.) For uncomplicated UTI caused by E. coli, K. pneumoniae or P. mirabilis: Cefazolin is susceptible if EZ <32 mcg/mL and predicts susceptible to the oral agents cefaclor, cefdinir, cefpodoxime, cefprozil, cefuroxime, cephalexin and loracarbef. Ceftazidime <=1 S Cefepime <=1 S Ceftriaxone <=1 S Ciprofloxacin <=0.25 S Levofloxacin <=0.12 S Gentamicin <=1 S Imipenem <=0.25 S Nitrofurantoin <=16 S Piperacillin/Tazobactam <=4 S Tobramycin <=1 S Trimethoprim/Sulfamethoxazole <=20 S Legend: S = Susceptible I = Intermediate R = Resistant NS = Not susceptible * = Not tested NR = Not reported NN = See antimicrobic comments Q - [facility] Microbiology Department Level of Care: Express Care Visit (04052) MDM - Female Genitourinary MDM Narrative Medical decision making narrative: will treat with Ceftin, urine culture will reflex, urinalysis is unremarkable here today However she does have a classic urinary tract infection symptoms. Patient is encouraged to follow-up with her PCP if symptoms are not improving to 3 days, ER if fevers or flank pain/vomiting arise or with any concerns or condition is worsening. Discharge Plan Discharge Clinical Impression: Dysuria Patient Disposition: Home, Self-Care Condition: Stable Instructions: Antibiotic Form, Dysuria (ED) Additional Instructions: PUSH FLUIDS AND REST, COMPLETE ANTIBIOTICS PRESCRIBED, CONTROL BLOOD SUGARS, ADHERE CLOSELY TO A DIABETIC DIET TO IMPROVE HEALING. SEE YOUR PRIMARY CARE PROVIDER IN 3 DAYS IF SYMPTOMS ARE NOT RESOLVING, ER IF YOU DEVELOP FEVERS, PAIN IN HER FLANK OR BEGAN VOMITING. Patient Language: Vietnamese Prescriptions: New cefuroxime axetil 500 mg tablet 500 mg PO Q12H Qty: 14 0RF No Action levothyroxine 50 mcg Tablet 50 mcg PO DAILY simvastatin 10 mg Tablet 10 mg PO DAILY trazodone 100 mg Tablet 100 mg PO HS triamterene-hydrochlorothiazid 37.5-25 mg Tablet 1 tablet PO QAM omeprazole 40 mg Capsule,Delayed Release(Dr/Ec) 40 mg PO DAILY duloxetine [Cymbalta] 60 mg Capsule,Delayed Release(Dr/Ec) 60 mg PO DAILY tizanidine 4 mg tablet 4 mg PO TID PRN (Reason: Muscle Spasm) metformin 500 mg tablet extended release 24 hr 500 mg PO DAILY benztropine 0.5 mg tablet 0.5 mg PO DAILY gabapentin 600 mg tablet 600 mg PO TID Abilify Maintena 400 mg suspension,extended rel recon 400 mg IM MONTHLY metformin 500 mg tablet extended release 24 hr PO Follow-up/Referrals: Concha,MD Daja [Primary Care Provider] - Time of Disposition: 16:52
[2024-02-25 16:38] LABS: EDUAAPPEAR Clear; EDUABILI Negative (Negative); EDUABLOOD Negative (Negative); EDUACOLOR1 Yellow; EDUAGLUCOSE Negative (Negative); EDUAKETONE Negative (Negative); EDUALEUKO Negative (Negative); EDUANITRATE Negative (Negative); EDUAPH 6.5; EDUAPROTEIN Negative (Negative); EDUAUROBILI 0.2
--- OUTSIDE RECORDS SUMMARY | 2024-03-03 19:25 | XMS_ITS | Encounter Summary ---
Author Organization [facility] Address [address] [place] [address] Phone Care Team Providers Care Client Application Support Engineer Name Role Phone Daja Kern MD Primary Care Provider [phone] Baron Vergara MD Unavailable Reason for Referral * Radiology Services (Routine) - Closed Specialty Diagnoses / Procedures Referred By Contac t Referred To Contact Radiology Diagnoses Mastodynia of left breast Procedures [facility] BREAST LIMITED Trupti Mejia MD [address] [place] [address] Phone: tel: fax: Referral ID Status Reason Start Date Expiration Date Visits Re quested Visits Authorized [id number] Closed 10/16/2023 1 1 Encounter Details Date Type Department Care Team (Late st Contact Info) Description 10/16/2023 Transcribe Orders [facility] Central Scheduling [address] [place] [address] Trupti Mejia MD [address] [place] [address] Mastodynia of left breast (Primary Dx) Social History Tobacco Use Types Packs/Day Years Used Date Smoking Tobacco: Never Smokeless Tobacco: Never Alcohol Use Standard Drinks/Week Comments No 0 (1 standard drink = 0.6 oz pur e alcohol) [facility] Utilities Answer Date Recorded In the past 12 months has th e electric, gas, oil, or water company threatened to shut off services in your home? Patient declined 05/22/2023 Social Connection and Isolation Panel [NHANES] A nswer Date Recorded In a typical week, how many times do you talk on the phone with family, friends, or neighbors? Patient declined 05/22/2023 How often do you get togethe r with friends or relatives? Patient declined 05/22/2023 How often do you attend bahai or taoist serv ices? Patient declined 05/22/2023 Do you belong to any clubs o r organizations such as bahai groups, unions, fraternal or athletic groups, or school groups? Patient declined 05/22/2023 How often do you attend meet ings of the clubs or organizations you belong to? Patient declined 05/22/2023 Are you , , di vorced, , never , or living with a partner? Patient declined 05/22/2023 AUDIT-C Answer Date Recorded Q1: How often do you have a drink containing alc ohol? Patient declined 05/22/2023 Q2: How many drinks containi ng alcohol do you have on a typical day when you are drinking? Patient declined 05/22/2023 Q3: How often do you have si x or more drinks on one occasion? Patient declined 05/22/2023 Overall Financial Resource Strain (CARDIA) Answe r Date Recorded How hard is it for you to pa y for the very basics like food, housing, medical care, and heating? Patient declined 05/22/2023 [facility] - Occupational Stress Questionnaire Answer Date Recorded Do you feel stress - tense, restless, nervous, or anxious, or unable to sleep at night because your mind is troubled all the time - these days? Patient declined 05/22/2023 Exercise Vital Sign Answer Date Recorde d On average, how many days pe r week do you engage in moderate to strenuous exercise (like a brisk walk)? Patient declined On average, how many minutes do you engage in exercise at this level? Patient declined 05/22/2023 Hunger Vital Sign Answer Date Recorded Within the past 12 months, y ou worried that your food would run out before you got the money to buy more. Patient declined Within the past 12 months, t he food you bought just didn't last and you didn't have money to get more. Patient declined PRAPARE - Transportation Answer Date Re corded In the past 12 months, has l ack of transportation kept you from medical appointments or from getting medications? Patient declined 05/22/2023 In the past 12 months, has l ack of transportation kept you from meetings, work, or from getting things needed for daily living? Patient declined 05/22/2023 Housing Stability Vital Sign Answer [place] e Recorded In the last 12 months, was t here a time when you were not able to pay the mortgage or rent on time? Patient declined 05/22/19 24 In the last 12 months, how many places have you lived? 1 05/22/2023 In the last 12 months, was t here a time when you did not have a steady place to sleep or slept in a custodial (including now)? Patient declined 05/22/2023 Sexually Active Control Partners Comments Yes None Male Comments No Sex and Gender Information Value Date Recorded Sex Assigned at Female 06/02/2023 1:39 AM CDT Legal Sex Female 11:06 PM CDT Gender Identity Female 06/02/2023 1:39 AM CDT Sexual Orientation Straight 06/02/2023 1: 39 AM CDT documented as of this encounter Plan of Treatment Upcoming Encounters Date Type Department Care Team (Late st Contact Info) Description 03/27/2024 8:30 AM ORDNANCE ENGINEER [facility] [address] [place] [address] Burt Eastman MD [address] [address] 03/27/2024 8:30 AM ORDNANCE ENGINEER - 03/27/2024 9:00 AM ORDNANCE ENGINEER [facility] [address] [place] [address] Burt Eastman MD [address] [address] COLONOSCOPY 04/09/2024 1:15 PM ORDNANCE ENGINEER Office Visit [facility] - Pulmonology & Sleep Medicine [facility] [address] [place] [address] Baron Vergara MD [address] [place] [address] Scheduled Procedures Name Priority Associated Diagnoses Date/Ti me COLONOSCOPY HISTORY OF COLON POLYPS 03/27/2024 8:30 AM ORDNANCE ENGINEER documented as of this encounter Results * KIMBERLY US BREAST LIMITED LT (11/16/2023 2:32 PM CDT) Anatomical Region Laterality Modality breast Left Ultrasound 11/16/2023 1:24 PM CDT Narrative 11/17/2023 10:26 AM CDT - KIMBERLY DIAG BILATERAL DIGITAL W CAD W CHELSEA - KIMBERLY US BREAST LIMITED LT BILATERAL DIGITAL DIAGNOSTIC MAMMOGRAM 3D/2D WITH CAD WITH MEDIOLATERAL OBLIQUE CRANIOCAUDAL AND LEFT ULTRASOUND: 11/16/2023 The study was acquired using digital technology and interpreted from soft copy. Current study was also evaluated with ICAD version 7.2. 2D digital mammographic views, as well as 3D digital tomosynthesis were performed in the CC and MLO projections. ?? CLINICAL: Diagnostic study. Focal pain left upper-outer breast near axilla, intermittent shooting pain to nipple also. Patient reports 30 pound weight increase since last mammogram. No personal history of cancer. No family history of breast cancer. ?? COMPARISONS: Comparison is made to exams dated: ??12/29/2018, 07/29/2020, and [facility]25/[facility]. ?? BREAST TISSUE:There are scattered areas of fibroglandular density. ?? FINDINGS: No significant masses or calcifications are seen in either breast on the mammogram or targeted left breast ultrasound. ??At the area of pain in the left axilla, benign-appearing lymph nodes are seen. IMPRESSION: OVERALL STUDY BIRADS: CATEGORY 1: NEGATIVE There is no mammographic or sonographic evidence of malignancy. A 1 year screening mammogram is recommended. ?? The results and recommendations were discussed with the patient. Electronically signed by: Nael Alvarenga M.D. ? ll/:11/16/2023 14:35:56 ?? Aging Room Operator(s): Tara ?? WELLINGTON DunnR)(M), [facility]; Rosemarie ??SEBASTIAN Villagran OBGYN, [facility] letter sent: Normal Exam ?? Reading location: [place] OVERALL STUDY BIRADS: Category 1: Negative Procedure Note Nael Alvarenga MD - 11/17/2023 - KIMBERLY DIAG BILATERAL DIGITAL W CAD W CHELSEA - KIMBERLY US BREAST LIMITED LT BILATERAL DIGITAL DIAGNOSTIC MAMMOGRAM 3D/2D WITH CAD WITH MEDIOLATERAL OBLIQUE CRANIOCAUDAL AND LEFT ULTRASOUND: 11/16/2023 The study was acquired using digital technology and interpreted from soft copy. Current study was also evaluated with ICAD version 7.2. 2D digital mammographic views, as well as 3D digital tomosynthesis were performed in the CC and MLO projections. CLINICAL: Diagnostic study. Focal pain left upper-outer breast near axilla, intermittent shooting pain to nipple also. Patient reports 30 pound weight increase since last mammogram. No personal history of cancer. No family history of breast cancer. COMPARISONS: Comparison is made to exams dated: 12/29/2018, 07/29/2020, and 08/25/2015 [facility]. BREAST TISSUE:There are scattered areas of fibroglandular density. FINDINGS: No significant masses or calcifications are seen in either breast on the mammogram or targeted left breast ultrasound. At the area of pain in the left axilla, benign-appearing lymph nodes are seen. IMPRESSION: OVERALL STUDY BIRADS: CATEGORY 1: NEGATIVE There is no mammographic or sonographic evidence of malignancy. A 1 year screening mammogram is recommended. The results and recommendations were discussed with the patient. Electronically signed by: Nael Alvarenga M.D. ll/:11/16/2023 14:35:56 Aging Room Operator(s): RT Maxine(R)(M), [facility]; Rosemarie Villagran, RDMS OBGYN, [facility] letter sent: Normal Exam Reading location: [place] OVERALL STUDY BIRADS: Category 1: Negative us Trupti Mejia MD IMG MAMMO ORDERABLES Final Re sult documented in this encounter Visit Diagnoses Diagnosis Mastodynia of left breast- Primary Mastodynia of left breast documented in this encounter Care Teams Client Application Support Engineer Relationship Specialty Start Date End Date Daja Kern MD [address] [place] [address] PCP - General Internal Medicine 03/13/15 Baron Vergara MD [address] [place] [address] Consulting Physician Pulmonary Disease 06/26/23 documented as of this encounter
--- OUTSIDE RECORDS SUMMARY | 2024-03-03 19:25 | XMS_ITS | Encounter Summary ---
Author Organization [facility] Address [facility]. [place], [place] [address] [place] [id number] Care Team Providers Care Switchman Name Role Phone None, Provider Primary Care Provider Unavaila ble Encounter Details Date Type Department Care Team (Latest Contact Info) Description 01/06/2023 Travel Social History Tobacco Use Types Packs/Day Years Used Date Smoking Tobacco: Never Assessed Comments No Sex and Gender Information Value Date Recorded Sex Assigned at Not on file Legal Sex Female 11:42 AM CAUSTICISER Gender Identity Not on file Sexual Orientation Not on file documented as of this encounter Plan of Treatment Not on file documented as of this encounter Visit Diagnoses Not on filedocumented in this encounter Care Teams Switchman Relationship Specialty Start Date End Date None, Provider, PCP - General UNKNOWN PHYSICIAN SPECIALTY 01/06/23 documented as of this encounter
--- OUTSIDE RECORDS SUMMARY | 2024-03-03 19:25 | XMS_ITS | Encounter Summary ---
Author Organization [facility] Address [address] [place] [address] Phone Care Team Providers Care Lab Support Tech Name Role Phone Daja Kern MD Primary Care Provider [phone] Baron Vergara MD Unavailable Encounter Details Date Type Department Care Team (Late st Contact Info) Description 11/16/2023 Telephone [facility] [address] [place] [address] Burt Eastman MD [address] [address] Social History Tobacco Use Types Packs/Day Years Used Date Smoking Tobacco: Never Smokeless Tobacco: Never Alcohol Use Standard Drinks/Week Comments No 0 (1 standard drink = 0.6 oz pur e alcohol) [facility] Utilities Answer Date Recorded In the past 12 months has [employer], gas, oil, or water [employer] threatened to shut off services in your home? Patient declined 05/22/2023 Social Connection and Isolation Panel [NHANES] A nswer Date Recorded In a typical week, how many times do you talk on the phone with family, friends, or neighbors? Patient declined 05/22/2023 How often do you get togethe r with friends or relatives? Patient declined 05/22/2023 How often do you attend mandaen or anabaptist serv ices? Patient declined 05/22/2023 Do you belong to any clubs o r organizations such as mandaen groups, unions, fraternal or athletic groups, or [...] medical care, and heating? Patient declined 05/22/2023 [facility] - Occupational Stress Questionnaire Answer Date Recorded [...] place to sleep or slept in a jail (including now)? Patient declined 05/22/2023 Sexually Active Control Partners Comments Yes None Male Comments No Sex and Gender Information Value Date Recorded Sex Assigned at Female 06/02/2023 1:39 AM CDT Legal Sex Female 11:06 PM CDT Gender Identity Female 06/02/2023 1:39 AM CDT Sexual Orientation Straight 06/02/2023 1: 39 AM CDT documented as of this encounter Miscellaneous Notes * Telephone Encounter - Eileen Pinedo CMA - 11/16/2023 8:32 AM CDT Colonoscopy prep instructions sent through [employer] documented in this encounter Plan of Treatment Upcoming Encounters Date Type Department Care Team (Late st Contact Info) Description 03/27/2024 8:30 AM CLOCK AND WATCH HANDS DIPPER [facility] [address] [place] [address] Burt Eastman MD [address] [address] 03/27/2024 8:30 AM CLOCK AND WATCH HANDS DIPPER - 03/27/2024 9:00 AM CLOCK AND WATCH HANDS DIPPER Surgery [facility] Per[facility] [address] [place] [address] Burt Eastman MD [address] [address] COLONOSCOPY 04/09/2024 1:15 PM CLOCK AND WATCH HANDS DIPPER [facility] - [place] [address] [place] [address] Baron Vergara MD [address] [place] [address] Scheduled Procedures Name Priority Associated Diagnoses Date/Ti me COLONOSCOPY HISTORY OF COLON POLYPS 03/27/2024 8:30 AM CLOCK AND WATCH HANDS DIPPER documented as of this encounter Visit Diagnoses Not on filedocumented in this encounter Care Teams Lab Support Tech Relationship Specialty Start Date End Date Daja Kern MD [address] [place], [place] [id number] PCP - General Internal Medicine 03/13/15 Baron Vergara MD [address] [place] [address] Consulting Physician Pulmonary Disease 06/26/23 documented as of this encounter
--- OUTSIDE RECORDS SUMMARY | 2024-03-03 19:25 | XMS_ITS | Encounter Summary ---
Author Organization [employer] Care Team Providers Care Strip Machine Tender Name Role Phone Daja Kern MD Primary Care Provider [phone] Baron Vergara MD Unavailable Encounter Details Date Type Department Care Team (Latest Contact Info) Description 11/16/2023 Travel Social History Tobacco Use Types Packs/Day Years Used Date Smoking Tobacco: Never Smokeless Tobacco: Never Alcohol Use Standard Drinks/Week Comments No 0 (1 standard drink = 0.6 oz pur e alcohol) [facility] Utilities Answer Date Recorded In the past 12 months has [employer] electric, gas, oil, or water company threatened [...] declined 05/22/2023 How often do you attend yarsanism or restoration serv ices? Patient declined 05/22/2023 Do you belong to any clubs o r organizations such as yarsanism groups, unions, fraternal or athletic groups, or [...] medical care, and heating? Patient declined 05/22/2023 [facility] - Occupational Stress Questionnaire Answer Date [...] place to sleep or slept in a prison (including now)? Patient declined 05/22/2023 Sexually Active [...] st Contact Info) Description 03/27/2024 8:30 AM FLOAT REMOVER [facility] 1 [place] [address] Burt Eastman MD [address] [address] 03/27/2024 8:30 AM FLOAT REMOVER - 03/27/2024 9:00 AM FLOAT REMOVER [facility] 1 [place] [address] Burt Eastman MD [address] [address] COLONOSCOPY 04/09/2024 1:15 PM FLOAT REMOVER Office Visit [facility] - Pulmonology & Sleep Medicine [facility] [address] [place] [address] Baron Vergara MD [address] [place] [address] Scheduled Procedures Name Priority Associated Diagnoses Date/Ti me COLONOSCOPY HISTORY OF COLON POLYPS 03/27/2024 8:30 AM FLOAT REMOVER documented as of this encounter Visit Diagnoses Not on filedocumented in this encounter Care Teams Strip Machine Tender Relationship Specialty Start Date End Date Daja Kern MD [address] [place] [address] PCP - General Internal Medicine 03/13/15 Baron Vergara MD [address] [place] [address] Consulting Physician Pulmonary Disease 06/26/23 documented as of this encounter
--- OUTSIDE RECORDS SUMMARY | 2024-03-03 19:25 | XMS_ITS | Encounter Summary ---
Author Organization [employer] Care Team Providers Care Railroad Car Truck Builder Name Role Phone Daja Kern MD Primary Care Provider [phone] Baron Vergara MD Unavailable Encounter Details Date Type Department Care Team (Latest Contact Info) Description 01/24/2024 Travel Social History Tobacco Use Types Packs/Day Years Used Date Smoking Tobacco: Never Smokeless Tobacco: Never Alcohol Use Standard Drinks/Week Comments No 0 (1 standard drink = 0.6 oz pur e alcohol) [facility] Utilities Answer Date Recorded In the past 12 months has [employer] electric, gas, oil, or water company threatened [...] declined 05/22/2023 How often do you attend adventist or holiness serv ices? Patient declined 05/22/2023 Do you belong to any clubs o r organizations such as adventist groups, unions, fraternal or athletic groups, or [...] medical care, and heating? Patient declined 05/22/2023 [facility] - Occupational Stress Questionnaire Answer Date [...] st Contact Info) Description 03/27/2024 8:30 AM PLANT WIRE CHIEF [facility] Per[facility] [address] [place] [address] Burt Eastman MD [address] [address] 03/27/2024 8:30 AM PLANT WIRE CHIEF - 03/27/2024 9:00 AM PLANT WIRE CHIEF [facility] Per[facility] [address] [place] [address] Burt Eastman MD [address] [address] COLONOSCOPY 04/09/2024 1:15 PM PLANT WIRE CHIEF Office Visit [facility] - Pulmonology & Sleep Medicine [facility] [address] [place] [address] Baron Vergara MD [address] [place] [address] Scheduled Procedures Name Priority Associated Diagnoses Date/Ti me COLONOSCOPY HISTORY OF COLON POLYPS 03/27/2024 8:30 AM PLANT WIRE CHIEF documented as of this encounter Visit Diagnoses Not on filedocumented in this encounter Care Teams Railroad Car Truck Builder Relationship Specialty Start Date End Date Daja Kern MD [address] [place] [address] PCP - General Internal Medicine 03/13/15 Baron Vergara MD [address] [place] [address] Consulting Physician Pulmonary Disease 06/26/23 documented as of this encounter
--- OUTSIDE RECORDS SUMMARY | 2024-03-03 19:25 | XMS_ITS | Clinical Summary ---
Author Organization [facility] Address [address] [place] [address] Phone Care Team Providers Care Commodity Analyst Name Role Phone Daja Kern MD Primary Care Provider [phone] Baron Vergara MD Unavailable Allergies Active Allergy Reactions Criticality Noted Date Comments Ziprasidone Hcl Other (see Comments) High 08/09/2017 Abnormal mouth movements Hydroxyzine Palpitations 01/29/2024 Risperidone Other (see Comments) High 08/09/2017 Violent and agitated. Sulfa Antibiotics Hives Medium 09/01/2015 Topiramate Other (see Comments) High 08/09/2017 Difficulty with speech and word finding. Medications * This document contains information received from the source organization and may not represent a complete record from that organization. traZODone (DESYREL) 50 MG Tablet Take 100 mg by mouth nightly. Active levothyroxine (SYNTHROID) 50 MCG TabletIndication s:Hypothyroidism Take 50 mcg by mouth daily. Indications: Underactive Thyroid 06/19/19 19 Active DULoxetine (CYMBALTA) [address] Particles Take 90 mg by mouth daily. Active irbesartan (AVAPRO) 150 MG Tablet Take 300 mg by mouth daily. 02/12/20 21 Active omeprazole (PriLOSEC) 40 MG CAPSULE DELAYED RELEASE Take 1 Capsule by mouth daily. 90 Capsule 06/03/19 22 Active metoprolol Succinate (TOPROL-XL) 25 MG TABLET SR 24 HR Take 50 mg by mouth daily. Active triamterene-hydr ochlorothiazide (DYAZIDE) 37.5-25 MG Capsule Take 1 Capsule by mouth every morning. Active simvastatin (ZOCOR) 10 MG Tablet Take 10 mg by mouth every evening. Active benztropine (COGENTIN) 0.5 MG Tablet Take 0.5 mg by mouth nightly. Active miconazole 2 % Powder Apply on the groin region. 71 g 01/06/20 Active Additional Information Patient taking differently: Topical PRN, Apply on the groin region and under breast., Reported on 01/29/2024 ondansetron (ZOFRAN-ODT) 4 MG TABLET DISPERSIBLE Take 1 Tablet by mouth every 6 hours as needed for Nausea - 1st line (for nausea or vomiting). 10 Tablet 01/06/20 Active albuterol (PROVENTIL, VENTOLIN) (2.5 MG/3ML) 0.083% Nebulizer SolnIndications: Acute respiratory failure with hypoxia (HCC),Asthma exacerbation 3 mL by Nebulization route every 6 hours as needed for Wheezing. 360 mL 05/02/19 24 Active ARIPiprazole extended release (Abilify Maintena) 400 MG Prefilled Syringe 400 mg by Intramuscular route every 28 days. Around the 8th of every month Active metFORMIN (GLUCOPHAGE-XR) 500 MG TABLET SR 24 HR Take 1,000 mg by mouth in the morning and at bedtime. 03/07/19 24 Active guaiFENesin (MUCINEX) 600 MG TABLET SR 12 HR Take 1 Tablet by mouth every 12 hours as needed for Cough or Congestion. 05/22/19 24 Active gabapentin (NEURONTIN) 300 MG Capsule Take 900 mg by mouth 3 times daily. Active diphenoxylate-at ropine (LOMOTIL) 2.5-0.025 MG/5ML LiquidIndication s:Diarrhea Take 5 mL by mouth 4 times daily as needed for Diarrhea. 60 mL 07/17/19 24 Active hydroCHLOROthiaz cintia 25 MG Tablet Take 1 Tablet by mouth daily. 01/26/20 24 Active albuterol 108 (90 Base) MCG/ACT Aerosol Solution take 2 Puffs by inhalation every 4 hours as needed for Wheezing or Cough. Active azithromycin (ZITHROMAX) 250 MG TabletIndication s:Community Acquired Pneumonia Take 1 Tablet by mouth daily for 3 days. Indications: Community Acquired Pneumonia 3 Tablet 02/01/20 24 024 cefdinir (OMNICEF) 300 MG Capsule Take 1 Capsule by mouth 2 times daily for 5 days. 10 Capsule 02/01/20 24 024 predniSONE (DELTASONE) 10 MG Tablet Take 3 Tablets by mouth daily for 2 days, THEN 2 Tablets daily for 2 days, THEN 1 Tablet daily for 2 days, THEN 0.5 Tablets daily for 2 days. 13 Tablet 02/02/20 24 024 Active Problems Problem Noted Date Diagnosed Date Vitamin D deficiency 01/02/2023 KWABENA (obstructive sleep apnea) 01/02/2023 Overview (01/02/2023): does not use cpap Nephrocalcinosis 01/02/2023 NAFLD (nonalcoholic fatty liver disease) 023 IBS (irritable bowel syndrome) 01/02/2023 Overview (01/02/2023): C/D HTN (hypertension) 01/02/2023 DDD (degenerative disc disease), lumbar 01/03/20 23 Overview (01/02/2023): back Cocaine abuse 01/02/2023 Adenomatous colon polyp 01/02/2023 Stimulant withdrawal 01/02/2023 Influenza A 02/09/2022 Influenza A H1N1 infection 02/08/2022 COVID-19 virus infection 02/08/2022 Small bowel obstruction 08/03/2021 Anxiety 08/03/2021 Type 2 diabetes mellitus, [facility] long-term current use of insulin 08/03/2021 Dehydration 08/03/2021 UTI (urinary tract infection) 08/03/2021 Morbid obesity 02/20/2021 Sepsis 10/03/2018 Enterocolitis 10/03/[address] scan 10/03/2018 SBO (small bowel obstruction) 09/27/2018 Lumbar pars defect 08/09/2017 Lumbar facet arthropathy 08/09/2017 GERD (gastroesophageal reflux disease) HLD (hyperlipidemia) Bipolar disorder Depression Hypothyroid Resolved Problems Problem Noted Date Diagnosed Date Resolved Date COPD exacerbation 01/29/2024 01/31/2024 COPD exacerbation 05/22/2023 05/22/2023 Asthma exacerbation 04/30/2023 05/02/19 Crack cocaine use 04/30/2023 10/03/2023 Morbid obesity 01/02/2023 06/26/2023 HLD (hyperlipidemia) 01/02/2023 Acute respiratory failure with hypoxia 02/08/2022 05/02/2023 SBO (small bowel obstruction) 02/20/2021 02/22/2021 Cocaine use 10/03/2018 10/03/2023 HTN (hypertension) Encounters Date Type Department Care Team Description 01/29/2024 9:04 AM TABLE KEEPER - 02/01/2024 12:53 PM [facility] Emergency [facility] Med Surg [address] [place] [phone] Sharon Quispe MD Patel, Satyen V, MD COPD exacerbation (HCC) Discharge Disposition: Discharged to home or Selfcare 01/29/2024 Travel 01/24/2024 5:02 AM TABLE KEEPER - 01/24/2024 8:40 AM [facility] Emergency [facility] Emergency [address] [place] [address] Cameron Aguilera MD Kuzelj, Denis, MD Vaginal bleeding Discharge Disposition: Discharged to home or Selfcare 01/24/2024 Travel 01/23/2024 1:12 PM TABLE KEEPER - 01/23/2024 1:41 PM [facility] Emergency [facility] Emergency [address] [place] [address] Discharge Disposition: LWBS 01/12/2024 5:21 PM TABLE KEEPER - 01/12/2024 7:04 PM [facility] Emergency [facility] Emergency [address] [place] [address] Discharge Disposition: LWBS from Last 3 Months Immunizations Immunization Administration Dates Next Due Influenza,Split Virus,Trivalent,Injectable,PF TDAP Vaccine 06/22/2022 Family History Medical History Relation Name Comments Depression Brother Obstructive Sleep Apnea Brother No Known Problems Daughter Diabetes Maternal Uncle Depression Mother Diabetes Mother Hypertension Mother Relation Name Status Comments Brother Alive Daughter gave her up for adoption Father Other unknown Maternal Uncle Mother Alive Social History Tobacco Use Types Packs/Day Years Used Date Smoking Tobacco: Never Smokeless Tobacco: Never Tobacco Cessation:Counseling Given: Not Answered Alcohol Use Standard Drinks/Week Comments No 0 (1 standard drink = 0.6 oz pur e alcohol) [facility] Utilities Answer Date Recorded In the past 12 months has e electric, gas, oil, or water company threatened to shut off services in your home? Patient declined 01/29/2024 Social Connection and Isolation Panel [NHANES] A nswer Date Recorded In a typical week, how many times do you talk on the phone with family, friends, or neighbors? Patient declined 01/29/2024 How often do you get togethe r with friends or relatives? Patient declined 01/29/2024 How often do you attend bahai or sabianism serv ices? Patient declined 01/29/2024 Do you belong to any clubs o r organizations such as bahai groups, unions, fraternal or athletic groups, or school groups? Patient declined 01/29/2024 How often do you attend meet ings of the clubs or organizations you belong to? Patient declined 01/29/2024 Are you , , di vorced, , never , or living with a partner? Patient declined 01/29/2024 AUDIT-C Answer Date Recorded Q1: How often do you have a drink containing alc ohol? Patient declined 01/29/2024 Q2: How many drinks containi ng alcohol do you have on a typical day when you are drinking? Patient declined 01/29/2024 Q3: How often do you have si x or more drinks on one occasion? Patient declined 01/29/2024 Overall Financial Resource Strain (CARDIA) Answe r Date Recorded How hard is it for you to pa y for the very basics like food, housing, medical care, and heating? Patient declined 01/29/2024 [facility] [place] [facility] - Occupational Stress Questionnaire Answer Date Recorded Do you feel stress - tense, restless, nervous, or anxious, or unable to sleep at night because your mind is troubled all the time - these days? Patient declined 01/29/2024 Exercise Vital Sign Answer Date Recorde d On average, how many days pe r week do you engage in moderate to strenuous exercise (like a brisk walk)? Patient declined On average, how many minutes do you engage in exercise at this level? Patient declined 01/29/2024 Hunger Vital Sign Answer Date Recorded Within the past 12 months, y ou worried that your food would run out before you got the money to buy more. Patient declined Within the past 12 months, t he food you bought just didn't last and you didn't have money to get more. Patient declined 03/2023 PRAPARE - Transportation Answer Date Re corded In the past 12 months, has l ack of transportation kept you from medical appointments or from getting medications? Patient declined 01/29/2024 In the past 12 months, has l ack of transportation kept you from meetings, work, or from getting things needed for daily living? Patient declined 01/29/2024 Housing Stability Vital Sign Answer [place] [...] place to sleep or slept in a half-way (including now)? Patient declined 05/22/2023 Housing Stability Vital Sign Answer [place] Recorded In the last 12 months, was t here a time when you were not able to pay the mortgage or rent on time? Patient declined 01/29/20 In the past 12 months, how m any times have you moved where you were living? 1 01/29/2024 At any time in the past 12 m [facility], were you homeless or living in a half-way (including now)? Patient declined 01/29/2024 Sexually Active Control Partners Comments Yes None Male Comments No Sex and Gender Information Value Date Recorded Sex Assigned at Female 06/02/2023 1:39 AM CDT Legal Sex Female 11:06 PM CDT Gender Identity Female 06/02/2023 1:39 AM CDT Sexual Orientation Straight 06/02/2023 1: 39 AM CDT Last Filed Vital Signs Vital Sign Reading Time Taken Comments Blood Pressure 150/90 02/01/2024 5:37 AM TABLE KEEPER Pulse 91 01/31/2024 1:09 PM TABLE KEEPER Temperature 35.6 ??C (96.1 ??F) 02/01/2024 5:37 AM CS T Respiratory Rate 18 02/01/2024 7:19 AM TABLE KEEPER Oxygen Saturation 97% 02/01/2024 7:19 AM TABLE KEEPER Inhaled Oxygen Concentration - - Weight 127 kg (280 lb) 01/29/2024 9:09 AM TABLE KEEPER Height 157.5 cm (5' 2 ) 01/29/2024 9:09 AM TABLE KEEPER Body Mass Index 51.21 01/29/2024 9:09 AM TABLE KEEPER Plan of Treatment Upcoming Encounters Date Type Department Care Team (Late st Contact Info) Description 03/27/2024 8:30 AM TABLE KEEPER Hospital Encounter [facility] Periop [address] [place] [address] Burt Eastman MD [address] [address] 03/27/2024 8:30 AM TABLE KEEPER - 03/27/2024 9:00 AM TABLE KEEPER Surgery [facility] Periop [address] [place] [address] Burt Eastman MD [address] [address] COLONOSCOPY 04/09/2024 1:15 PM TABLE KEEPER [facility] [address] [place] [address] Baron Vergara MD [address] [place] [address] Scheduled Procedures Name Priority Associated Diagnoses Date/Ti me COLONOSCOPY HISTORY OF COLON POLYPS 03/27/2024 8:30 AM TABLE KEEPER Health Maintenance Due Date Last Done Comments Diabetes: Eye Exam 1972 Diabetes: Foot Exam 1972 Hepatitis C Virus (HCV) Screening 1972 Hepatitis B Immunization (1 of 3 - 19+ 3-dose series) 12/16/1991 Pneumococcal Immunization (50+ years) (1 of 2 - PCV) 12/16/1991 Pap Smear 1993 Cervical Cancer Screening (CCS) 2002 HPV/Cotest 2002 Cologuard 2022 Immunochemical Fecal Occult Blood 2022 Zoster Immunization (1 of 2) 2022 SARS-COV-2 Immunization ( - season) 2023 02/10/2021, 08/05/2020 Colonoscopy 11/17/2023 11/16/2018, 11/16/2018 Colorectal Cancer Screening 11/17/2023 Diabetes: Hemoglobin A1c 07/29/2024 024, 05/01/2023, 02/13/2022, Additional history exists Diabetes: Nephropathy Screening 01/28/2025 01/29/2024, 01/24/2024, 08/13/2023, Additional history exists Mammogram 11/15/2025 11/16/2023, 06/0 03/2020, 12/29/2018, Additional history exists Colonoscopy High Risk 11/16/2028 11/16/2018, 019 Td Immunization Every 10 Years (Adults With 1 Tdap) 06/22/2032 06/22/2022, 08/13/2015 Respiratory Syncytial Virus (RSV) Immunization (Adult) (1 - 1-dose 75+ series) 12/16/2047 DTaP/Tdap/Td Immunization Discontinued 06/22/2022, Discussion re Starting/Frequency of Mammograms Discontinued 11/16/2023, 07/29/2020, 12/29/2018, Additional history exists Influenza Immunization Completed , 12/27/2022, 01/05/2021, Additional history exists Meningococcal Immunization (ACWY) Aged Out No longer eligible based on patient's age to complete this topic Rotavirus Immunization Aged Out No lo nger eligible based on patient's age to complete this topic Procedures Procedure Name Priority Date/Time Associated Diagnosis Comments POCT GLUCOSE Routine 02/01/2024 11:13 AM TABLE KEEPER POCT GLUCOSE Routine 02/01/2024 7:09 AM TABLE KEEPER CBC WITH AUTO DIFFERENTIAL Routine 02/01/2024 4:44 AM TABLE KEEPER COMPLETE BLOOD COUNT (CBC) WITH DIFF Routine 02/01/2024 4:44 AM TABLE KEEPER BASIC METABOLIC PANEL W/ CALCIUM TOTAL Routine 02/01/2024 4:44 AM TABLE KEEPER POCT GLUCOSE Routine 01/31/2024 7:41 PM TABLE KEEPER POCT GLUCOSE Routine 01/31/2024 5:01 PM TABLE KEEPER POCT GLUCOSE Routine 01/31/2024 11:03 AM TABLE KEEPER POCT GLUCOSE Routine 01/31/2024 7:35 AM TABLE KEEPER CBC WITH AUTO DIFFERENTIAL Routine 01/31/2024 5:31 AM TABLE KEEPER COMPLETE BLOOD COUNT (CBC) WITH DIFF Routine 01/31/2024 5:31 AM TABLE KEEPER BASIC METABOLIC PANEL W/ CALCIUM TOTAL Routine 01/31/2024 5:31 AM TABLE KEEPER POCT GLUCOSE Routine 01/30/2024 7:15 PM TABLE KEEPER POCT GLUCOSE Routine 01/30/2024 5:26 PM TABLE KEEPER POCT GLUCOSE Routine 01/30/2024 11:18 AM TABLE KEEPER POCT GLUCOSE Routine 01/30/2024 8:12 AM TABLE KEEPER CBC WITH AUTO DIFFERENTIAL Routine 01/30/2024 5:49 AM TABLE KEEPER LACTIC ACID (LACTATE) Routine 01/30/2024 5:49 AM TABLE KEEPER COMPLETE BLOOD COUNT (CBC) WITH DIFF Routine 01/30/2024 5:49 AM TABLE KEEPER BASIC METABOLIC PANEL W/ CALCIUM TOTAL Routine 01/30/2024 5:49 AM TABLE KEEPER TROPONIN I, HIGH SENSITIVITY (HSTRP) STAT 01/30/2024 5:49 AM TABLE KEEPER AEROSOL NEBULIZER-INITIAL Routine 01/30/2024 12:04 AM TABLE KEEPER POCT GLUCOSE Routine 01/29/2024 8:09 PM TABLE KEEPER POCT GLUCOSE Routine 01/29/2024 3:57 PM TABLE KEEPER GROUP A STREP BY PCR Routine 01/29/2024 3:43 PM TABLE KEEPER TROPONIN I, HIGH SENSITIVITY (HSTRP) STAT 01/29/2024 2:27 PM TABLE KEEPER B-TYPE NATRIURETIC PEPTIDE (BNP) STAT 01/29/2024 1:59 PM TABLE KEEPER CREATINE KINASE (CK) TOTAL STAT 01/29/2024 12:17 PM TABLE KEEPER C-REACTIVE PROTEIN (CRP) QUANT STAT 01/29/2024 12:17 PM TABLE KEEPER LACTIC ACID (LACTATE) STAT 01/29/2024 12:[address] ANGIO CHEST W/WO ABDOMEN PELVIS W CONTRAST Stat with Interpretation 01/29/2024 11:51 AM TABLE KEEPER UR LEGIONELLA ANTIGEN Routine 01/29/2024 11:34 AM TABLE KEEPER STREPTOCOCCUS PNEUMONIAE ANTIGEN, URINE Routine 01/29/2024 11:34 AM TABLE KEEPER URINALYSIS REFLEX IF INDICATED BY ABNORMAL RESULTS STAT 01/29/2024 11:34 AM TABLE KEEPER CULTURE, URINE STAT 01/29/2024 11:34 AM TABLE KEEPER XR CHEST SINGLE VIEW PORTABLE STAT 01/29/2024 10:29 AM TABLE KEEPER CULTURE, BLOOD STAT 01/29/2024 9:31 AM TABLE KEEPER GOLD TOP TUBE STAT 01/29/2024 9:22 AM TABLE KEEPER BLUE TOP TUBE STAT 01/29/2024 9:22 AM TABLE KEEPER EXTRA TUBES STAT 01/29/2024 9:22 AM TABLE KEEPER CULTURE, BLOOD STAT 01/29/2024 9:22 AM TABLE KEEPER CBC WITH AUTO DIFFERENTIAL STAT 01/29/2024 9:21 AM TABLE KEEPER HEMOGLOBIN A1C W/ ESTIMATED GLUCOSE STAT 01/29/2024 9:21 AM TABLE KEEPER LACTIC ACID (LACTATE) STAT 01/29/2024 9:21 AM TABLE KEEPER CMP (COMPREHENSIVE METABOLIC PANEL) STAT 01/29/2024 9:21 AM TABLE KEEPER COMPLETE BLOOD COUNT (CBC) WITH DIFF STAT 01/29/2024 9:21 AM TABLE KEEPER RSV,SARS-COV-2,INFL UENZA A&B BY PCR STAT 01/29/2024 9:21 AM TABLE KEEPER CRITICAL CARE Routine 01/29/2024 9:15 AM TABLE KEEPER EKG 12 LEAD STAT 01/29/2024 9:07 AM TABLE KEEPER RHYTHM STRIP 01/29/2024 12:00 AM TABLE KEEPER EKG SCAN 01/29/2024 12:00 AM TABLE KEEPER URINALYSIS REFLEX IF INDICATED BY ABNORMAL RESULTS STAT 01/24/2024 7:37 AM TABLE KEEPER APTT (PTT) STAT 01/24/2024 6:47 AM TABLE KEEPER PROTIME (PT) (PROTHROMBIN TIME) STAT 01/24/2024 6:47 AM TABLE KEEPER CBC WITH AUTO DIFFERENTIAL STAT 01/24/2024 5:31 AM TABLE KEEPER CMP (COMPREHENSIVE METABOLIC PANEL) STAT 01/24/2024 5:31 AM TABLE KEEPER COMPLETE BLOOD COUNT (CBC) WITH DIFF STAT 01/24/2024 5:31 AM TABLE KEEPER KIMBERLY DIAG BILATERAL DIGITAL W CAD W CHELSEA Routine 11/16/2023 1:57 PM CDT Breast pain, left from Last 3 Months or Most Recently Relevant to Health Maintenance Results * (ABNORMAL) POCT Glucose (02/01/2024 11:13 AM TABLE KEEPER) Only the most recent of12 resultswithin the time period is included. [facility] GLUCOSE,BEDSID E POCT 257(H) 70 - 99 mg/dL 02/01/2024 11:25 AM TABLE KEEPER [facility] Comment:Patient RN Performed Blood 02/01/2024 11:1 3 AM TABLE KEEPER 02/01/2024 11:25 AM TABLE KEEPER us None Provider POINT OF CARE TESTING Final Resu lt [facility] [address] [place] [address] * (ABNORMAL) CBC with Auto Differential (02/01/2024 4:44 AM TABLE KEEPER) Only the most recent of5 resultswithin the time period is included. [facility] WBC 15.31(H) 4.00 - 12.00 10(3)/mcL 02/01/2024 5:17 AM TABLE KEEPER [facility] RBC 4.48 3.80 - 5.30 10(6)/mcL 02/01/2024 5:17 AM TABLE KEEPER [facility] HEMOGLOBIN (HGB) 13.6 12.0 - 15.8 g/dL 02/01/2024 5:17 AM TABLE KEEPER [facility] HEMATOCRIT (HCT) 42.1 36.0 - 47.0 % 02/01/2024 5:17 AM [facility] MCV 94.0 82.0 - 96.0 fL 02/01/2024 5:17 AM [facility] MCH 30.4 26.0 - 34.0 pg 02/01/2024 5:17 AM [facility] MCHC 32.3 31.0 - 36.0 g/dL 02/01/2024 5:17 AM [facility] PLATELET COUNT 237 140 - 440 10(3)/[facility] 02/01/2024 5:17 AM [facility] RDW 13.0 11.8 - 15.5 % 02/01/2024 5:17 AM [facility] MPV 11.7 9.7 - 12.4 fL 02/01/2024 5:17 AM [facility] NEUTROPHILS 79.8(H) 47.0 - 73.0 % 02/01/2024 5:17 AM [facility] LYMPHOCYTES 14.1(L) 18.0 - 42.0 % 02/01/2024 5:17 AM [facility] MONOCYTES 5.6 4.0 - 12.0 % 02/01/2024 5:17 AM [facility] EOSINOPHILS 0.0 0.0 - 5.0 % 02/01/2024 5:17 AM [facility] BASOPHILS 0.5 0.0 - 1.0 % 02/01/2024 5:17 AM [facility] ABSOLUTE NEUTROPHILS 12.21(H) 1.60 - 7.70 10(3)/mcL 02/01/2024 5:17 AM [facility] ABSOLUTE LYMPHOCYTES 2.16 1.30 - 3.20 10(3)/mcL 02/01/2024 5:17 AM [facility] ABSOLUTE MONOCYTES 0.86 0.20 - 1.00 10(3)/mcL 02/01/2024 5:17 AM [facility] ABSOLUTE EOSINOPHIL 0.00 0.00 - 0.40 10(3)/mcL 02/01/2024 5:17 AM TABLE KEEPER [facility] ABSOLUTE BASOPHILS 0.08 0.00 - 0.10 10(3)/mcL 02/01/2024 5:17 AM [facility] NRBC PER 100 WBC 0 02/01/20 24 5:17 AM [facility] Blood BLOOD SPECIMEN / Unknown Venipuncture / Unknown 02/01/2024 4:44 AM TABLE KEEPER 02/01/2024 5:14 AM TABLE KEEPER us Alicia Sweet MD HEMATOLOGY ORDERABLES Final R esult [facility] [address] [place] [address] * (ABNORMAL) BMP AM (02/01/2024 4:44 AM TABLE KEEPER) Only the most recent of3 resultswithin the time period is included. SODIUM 135(L) 136 - 145 mmol/L 02/01/2024 5:38 AM [facility] POTASSIUM 4.5 3.5 - 5.1 mmol/L 02/01/2024 5:38 AM [facility] CHLORIDE 97(L) 98 - 107 mmol/L 02/01/2024 5:38 AM [facility] CO2, VENOUS 26 22 - 30 mmol/L 02/01/2024 5:38 AM [facility] ANION GAP 16.5 <18.0 mmol/L 02/01/2024 5:38 AM [facility] GLUCOSE 250(H) 70 - 99 mg/dL 02/01/2024 5:38 AM [facility] BUN 20 10 - 20 mg/dL 02/01/2024 5:38 AM [facility] CREATININE, BLOOD 0.79 0.60 - 1.00 mg/dL 02/01/2024 5:38 AM [facility] BUN/CREATININE RATIO 25(H) 12 - 20 ratio 02/01/2024 5:38 AM TABLE KEEPER [facility] CALCIUM 9.7 8.7 - 10.5 mg/dL 02/01/2024 5:38 AM TABLE KEEPER [facility] GFR, ESTIMATED >60 >=60 02/01/2024 5:38 AM TABLE KEEPER [facility] Comment: Creatinine Clearance is the preferred criteria for selecting drug dose adjustments in renally impaired patients. ??The GFR is provided as additional pertinent clinical information. GFR is reported in mL/min/1.73 sq m. Calculation based on the Chronic Kidney Disease Epidemiology Collaboration (CKD- EPI) equation refit without adjustment for race. GFR, EST. >60 >=60 024 5:38 AM TABLE KEEPER [facility] GFR, EST. NONAFRICAN >60 >=60 02/01/2024 5:38 AM TABLE KEEPER [facility] Blood BLOOD SPECIMEN / Unknown Venipuncture / Unknown 02/01/2024 4:44 AM TABLE KEEPER 02/01/2024 5:14 AM TABLE KEEPER us Alicai Sweet MD CHEMISTRY ORDERABLES Final Re sult [facility] [address] [place] [address] * TROPONIN I, HIGH SENSITIVITY (HSTRP) (01/30/2024 5:49 AM TABLE KEEPER) Only the most recent of2 resultswithin the time period is included. TROPONIN I, HIGH SENSITIVITY- [place] <3 <=14 ng/L 01/30/2024 6:54 AM TABLE KEEPER [facility] Comment: High-sensitivity troponin I results are reported in ng/L making the result appear to be 1,000 times higher than the contemporary troponin I value which is reported in ng/ml. Results from [facility]. Blood BLOOD SPECIMEN / Unknown Venipuncture / Unknown 01/30/2024 5:49 AM TABLE KEEPER 01/30/2024 5:54 AM TABLE KEEPER Alicia Sweet MD CHEMISTRY ORDERABLES Final Re sult Performing Organization Address [facility] Co de Phone Number [facility] [address] [place] [address] * Lactic Acid (Lactate) (01/30/2024 5:49 AM TABLE KEEPER) Only the most recent of3 resultswithin the time period is included. [facility] LACTIC ACID 1.9 0.7 - 2.0 mmol/L 01/30/2024 6:10 AM TABLE KEEPER [facility] Blood Venipuncture / Unknown 01/30/2024 5:49 AM TABLE KEEPER 01/30/2024 5:54 AM TABLE KEEPER Alicia Sweet MD CHEMISTRY ORDERABLES Final Re sult Performing Organization Address [facility] de Phone Number [facility] [address] [place] [address] * GROUP A STREP BY PCR (01/29/2024 3:43 PM TABLE KEEPER) [facility] GROUP A STREP BY PCR NOT DETECTED NOT DETECTED 01/29/2024 4:58 PM TABLE KEEPER [facility] Swab SPECIMEN FROM THROAT / Unknown Non-Phlebotomy Collection / Unknown 01/29/2024 3:43 PM TABLE KEEPER 01/29/2024 3:51 PM TABLE KEEPER Alicia Sweet MD MICROBIOLOGY - GENERAL ORDERA BLES Final Result Performing Organization Address [facility] Co de Phone Number [facility] [address] [place] [address] * B-Type Natriuretic Peptide (BNP) (01/29/2024 1:59 PM TABLE KEEPER) [facility] B TYPE NATRIURETIC PEPTIDE 43 <100 pg/mL 01/29/2024 2:27 PM TABLE KEEPER [facility] Blood Venipuncture / Unknown 01/29/2024 1:59 PM TABLE KEEPER 01/29/2024 2:13 PM TABLE KEEPER Alicia Sweet MD CHEMISTRY ORDERABLES Final Re sult Performing Organization Address [facility] Co de Phone Number [facility] [place] [address] * Creatine Kinase (CK) Total (01/29/2024 12:17 PM TABLE KEEPER) CK (CPK) 100 29 - 168 U/L 01/29/2024 2:31 PM TABLE KEEPER [facility] Blood Venipuncture / Unknown 01/29/2024 12:17 PM TABLE KEEPER 01/29/2024 1:42 PM TABLE KEEPER Alicia Sweet MD HEMATOLOGY ORDERABLES Final R esult Performing Organization Address [facility] Co de Phone Number [facility] [place] [address] * (ABNORMAL) C-Reactive Protein (CRP) Quant (01/29/2024 12:17 PM TABLE KEEPER) C-REACTIVE PROTEIN 6.96(H) <0.50 mg/dL 01/29/2024 2:11 PM TABLE KEEPER [facility] Blood Venipuncture / Unknown 01/29/2024 12:17 PM TABLE KEEPER 01/29/2024 1:42 PM TABLE KEEPER us Alicia Sweet MD CHEMISTRY ORDERABLES Final Re sult Performing Organization Address City/[facility] Co de Phone Number [facility] [place] [address] * CT ANGIO CHEST W/WO ABDOMEN PELVIS W CONTRAST (01/29/2024 11:51 AM TABLE KEEPER) Anatomical Region Laterality Modality Chest N/A Computed Tomogra phy 01/29/2024 12:5 6 PM TABLE KEEPER Impressions 01/29/2024 12:58 PM TABLE KEEPER IMPRESSION: Suboptimal opacification of the pulmonary arteries. The segmental pulmonary arteries are not well opacified and incompletely evaluated. No central pulmonary embolism. Diffuse bronchial wall thickening can be seen with bronchitis. No acute abnormality in the abdomen or pelvis. Hepatic steatosis. Narrative 01/29/2024 12:58 PM TABLE KEEPER EXAM DESCRIPTION: ?? CT ANGIO CHEST W/WO ABDOMEN PELVIS W CONTRAST REASON FOR STUDY: ?? Cough and shortness of breath for 3 days. ??Lower abdominal pain. TECHNIQUE: CTA scan of the chest and routine venous phase CT of the abdomen pelvis performed with intravenous and without oral contrast using helical scanning technique with dynamic intravenous contrast injection. Arterial phase images of the chest obtained as well as portal venous phase images of the abdomen and pelvis. Automated exposure control was used as a dose optimization technique for this examination. Reconstructed coronal and sagittal MPR images reviewed. All images stored on PACS. 3D MIP images were reviewed. CONTRAST TYPE/DOSE: ?? 100mL of IOPAMIDOL 76 % IV SOLN ??injected via ?? Intravenous COMPARISON: ?? CT abdomen and pelvis 09/06/2021 FINDINGS: VASCULATURE: ??Suboptimal opacification of the pulmonary arteries. ??The segmental pulmonary arteries are not well opacified and incompletely evaluated. ??No central pulmonary embolism. ??No thoracic aortic aneurysm. CHEST LUNGS: ?? Diffuse bronchial wall thickening. ??Expiratory exam. ?? Minimal ground-glass in the upper lobes likely related to atelectasis. PLEURAE: ?? No pleural effusion. No pneumothorax. MEDIASTINUM/REBA: ?? No mediastinal or hilar lymphadenopathy. ? HEART: ?? Heart size is normal with no pericardial effusion. AXILLAE: ?? No lymphadenopathy. CHEST WALL: ?? No masses. ??No subcutaneous air. HARDWARE/LINES/TUBES: ?? None. MUSCULOSKELETAL: ?? No significant abnormality. ABDOMEN/PELVIS LIVER: ?? Hepatic steatosis. ??Low-attenuation liver lesions are unchanged likely representing cysts or hemangiomas. ??No specific follow-up is required. GALLBLADDER: ?? Prior cholecystectomy. BILE DUCTS: ?? No intrahepatic or extrahepatic ductal dilatation. SPLEEN: ?? Normal size. ??No focal lesions. PANCREAS: ?? No masses. No adjacent inflammation or peripancreatic fluid collections. No pancreatic ductal dilatation. ?? ADRENALS: ?? Normal. KIDNEYS/URINARY TRACT: ?? No identified significant cystic or solid masses. No hydronephrosis or hydroureter. Symmetric nephrograms. ?? Urinary bladder is unremarkable. GI: ?? No dilated bowel loops. No obvious wall thickening. ??Normal appendix. ??No significant diverticular disease. PERITONEUM: ?? No ascites or free air. RETROPERITONEUM: ?? Prominent borderline enlarged inguinal lymph nodes are grossly similar and likely reactive. REPRODUCTIVE: ?? No significant abnormality. VASCULATURE: ?? No abdominal aortic aneurysm. MUSCULOSKELETAL: ?? Bilateral pars defects at L5 without significant associated spondylolisthesis. ??Severe endplate degenerative change at L5-S1 with vacuum disc phenomenon is grossly similar. ??Otherwise, mild diffuse thoracolumbar spondylosis. OTHER: ?? No other abnormality. ?? THIS IS AN ELECTRONICALLY VERIFIED FINAL REPORT 01/29/2024 12:56 PM - Electronically signed by ??Chuck Painter M.D. LB: ROSALEE D: ??01/29/2024 12:56 PM T: ??01/29/2024 12:56 PM Report ID: [id number] Reading Location: ??[id number] Procedure Note Chuck Painter MD - 01/29/2024 EXAM DESCRIPTION: CT ANGIO CHEST W/WO ABDOMEN PELVIS W CONTRAST REASON FOR STUDY: Cough and shortness of breath for 3 days. Lower abdominal pain. TECHNIQUE: CTA scan of the chest and routine venous phase CT of the abdomen pelvis performed with intravenous and without oral contrast using helical scanning technique with dynamic intravenous contrast injection. Arterial phase images of the chest obtained as well as portal venous phase images of the abdomen and pelvis. Automated exposure control was used as a dose optimization technique for this examination. Reconstructed coronal and sagittal MPR images reviewed. All images stored on PACS. 3D MIP images were reviewed. CONTRAST TYPE/DOSE: 100mL of IOPAMIDOL 76 % IV SOLN injected via Intravenous COMPARISON: CT abdomen and pelvis 09/06/2021 FINDINGS: VASCULATURE: Suboptimal opacification of the pulmonary arteries. The segmental pulmonary arteries are not well opacified and incompletely evaluated. No central pulmonary embolism. No thoracic aortic aneurysm. CHEST LUNGS: Diffuse bronchial wall thickening. Expiratory exam. Minimal ground-glass in the upper lobes likely related to atelectasis. PLEURAE: No pleural effusion. No pneumothorax. MEDIASTINUM/REBA: No mediastinal or hilar lymphadenopathy. HEART: Heart size is normal with no pericardial effusion. AXILLAE: No lymphadenopathy. CHEST WALL: No masses. No subcutaneous air. HARDWARE/LINES/TUBES: None. MUSCULOSKELETAL: No significant abnormality. ABDOMEN/PELVIS LIVER: Hepatic steatosis. Low-attenuation liver lesions are unchanged likely representing cysts or hemangiomas. No specific follow-up is required. GALLBLADDER: Prior cholecystectomy. BILE DUCTS: No intrahepatic or extrahepatic ductal dilatation. SPLEEN: Normal size. No focal lesions. PANCREAS: No masses. No adjacent inflammation or peripancreatic fluid collections. No pancreatic ductal dilatation. ADRENALS: Normal. KIDNEYS/URINARY TRACT: No identified significant cystic or solid masses. No hydronephrosis or hydroureter. Symmetric nephrograms. Urinary bladder is unremarkable. GI: No dilated bowel loops. No obvious wall thickening. Normal appendix. No significant diverticular disease. PERITONEUM: No ascites or free air. RETROPERITONEUM: Prominent borderline enlarged inguinal lymph nodes are grossly similar and likely reactive. REPRODUCTIVE: No significant abnormality. VASCULATURE: No abdominal aortic aneurysm. MUSCULOSKELETAL: Bilateral pars defects at L5 without significant associated spondylolisthesis. Severe endplate degenerative change at L5-S1 with vacuum disc phenomenon is grossly similar. Otherwise, mild diffuse thoracolumbar spondylosis. OTHER: No other abnormality. THIS IS AN ELECTRONICALLY VERIFIED FINAL REPORT 01/29/2024 12:56 PM - Electronically signed by Chuck Painter M.D. LB: ROSALEE Report ID: [id number] Reading Location: [id number] IMPRESSION: Suboptimal opacification of the pulmonary arteries. The segmental pulmonary arteries are not well opacified and incompletely evaluated. No central pulmonary embolism. Diffuse bronchial wall thickening can be seen with bronchitis. No acute abnormality in the abdomen or pelvis. Hepatic steatosis. us Sharon Quispe MD IMAustin CT ORDERABLES Final Resul t * (ABNORMAL) Urinalysis with Reflex (01/29/2024 11:34 AM TABLE KEEPER) Only the most recent of2 resultswithin the time period is included. SPECIFIC GRAVITY 1.005 1.003 - 1.030 01/29/2024 12:28 PM [facility] URINE PH 7.0 5.0 - 9.0 01/29/2024 12:28 PM [facility] WBC ESTERASE 25 /ul(A) Negative 01/29/2024 12:28 PM [facility] NITRITE Negative Negative 01/29/2024 12:28 PM [facility] PROTEIN, RANDOM URINE Negative Negative 01/29/2024 12:28 PM [facility] URINE GLUCOSE, QUAL Negative Negative 01/29/2024 12:28 PM [facility] URINE KETONES Negative Negative 01/29/2024 12:28 PM [facility] UROBILINOGEN Normal Normal mg/dL 01/29/2024 12:28 PM [facility] URINE BLOOD 150 /uL(A) Negative dylan/ul 01/29/2024 12:28 PM [facility] URINALYSIS COLOR Yellow 01/29/20 12:28 PM [facility] URINALYSIS CLARITY Slightly Cloudy 01/29/2024 12:28 PM [facility] WBC (Urine) 6-10(A) Negative, 0-5 /hpf 01/29/2024 12:28 PM [facility] URINE RBC'S 21-50(A) Negative, 0-2 /hpf 01/29/2024 12:28 PM [facility] EPITHELIAL CELLS Large amount squamous /lpf 01/29/2024 12:28 PM [facility] BACTERIA, URINE Few(A) Negative /hpf 01/29/2024 12:28 PM [facility] Urine URINE SPECIMEN / Unknown Non-Phlebotomy Collection / Unknown 01/29/2024 11:34 AM TABLE KEEPER 01/29/2024 11:44 AM [facility] us Sharon Quispe MD URINE ORDERABLES Final Result Performing Organization Address City/[facility]/ZIP Co de Phone Number [facility] [place] [address] * Streptococcus Pneumoniae Antigen, Urine (01/29/2024 11:34 AM TABLE KEEPER) STREP PNEUMO ANTIGEN Negative Negative 01/29/2024 9:58 PM TABLE KEEPER [facility] Comment:Negative result sugg ests no current or recent pneumococcal infection. Infection due to S. pneumoniae cannot be ruled out since the antigen present in the sample may be below the detection limit of the test. Other URINE SPECIMEN / Unknown Non-Phlebotomy Collection / Unknown 01/29/2024 11:34 AM TABLE KEEPER 01/29/2024 4:19 PM TABLE KEEPER Alicia Sweet MD URINE ORDERABLES Final Result Performing Organization Address [facility] Co de Phone Number [facility] [address] [place] [address], [place] * Ur Legionella Antigen (01/29/2024 11:34 AM TABLE KEEPER) LEGIONELLA URINE AG Negative Negative 01/29/2024 9:58 PM TABLE KEEPER [facility] Comment:Presumptive Negative for Legionella Pneumophila Serogroup 1 Antigen in urine, suggesting no recent or current infection. Infection due to Legionella cannot be ruled out since other serogroups and species may cause disease. Antigen may not be present in urine in early infection, and the level of antigen present in the urine may be below the detection limit of the test. Other Non-Phlebotomy Collection / Unknown 01/29/2024 11:34 AM TABLE KEEPER 01/29/2024 4:19 PM TABLE KEEPER Alicia Sweet MD URINE ORDERABLES Final Result Performing Organization Address City/[facility] Co de Phone Number [facility] [address] [place] [address], [place] * Culture, Urine (01/29/2024 11:34 AM TABLE KEEPER) CULTURE RESULTS Mixed Growth of One or More Distal Urethral Contaminants 01/31/2024 10:13 AM TABLE KEEPER [facility] Urine URINE SPECIMEN / Unknown Non-Phlebotomy Collection / Unknown 01/29/2024 11:34 AM TABLE KEEPER 01/29/2024 11:44 AM TABLE KEEPER Sharon Quispe MD MICROBIOLOGY - GENERAL ORDERA BLES Final Result [facility] [address] [place] [address], [place] * XR CHEST SINGLE VIEW PORTABLE (01/29/2024 10:29 AM TABLE KEEPER) Anatomical Region Laterality Modality Chest N/A Digital Radiogra phy 01/29/2024 10:5 4 AM TABLE KEEPER Impressions 01/29/2024 10:57 AM TABLE KEEPER IMPRESSION: No acute pulmonary process. Narrative 01/29/2024 10:57 AM TABLE KEEPER EXAM DESCRIPTION: XR CHEST SINGLE VIEW PORTABLE REASON FOR STUDY: cough, sob x 3 days, adb pain, diarreha hx. COPD, DM, HTN ?? TECHNIQUE: 1 ??radiographic view(s) of the chest. COMPARISON: 07/17/2023 FINDINGS: LUNGS: ??No focal opacity, pleural effusion, or pneumothorax. ?? HEART/MEDIASTINUM: ??Cardiac silhouette normal in size. Mediastinal and hilar contours appear normal. LINES/TUBES: ??None. BONES: ??No acute osseous abnormality. THIS IS AN ELECTRONICALLY VERIFIED FINAL REPORT 01/29/2024 10:54 AM - Electronically signed by ??Flynn Carrasco M.D. MM: MM D: ??01/29/2024 10:54 AM T: ??01/29/2024 10:54 AM Report ID: [id number] Reading Location: ??[id number] Procedure Note Flynn Carrasco MD - 01/29/2024 EXAM DESCRIPTION: XR CHEST SINGLE VIEW PORTABLE REASON FOR STUDY: cough, sob x 3 days, adb pain, diarreha hx. COPD, DM, HTN TECHNIQUE: 1 radiographic view(s) of the chest. COMPARISON: 07/17/2023 FINDINGS: LUNGS: No focal opacity, pleural effusion, or pneumothorax. HEART/MEDIASTINUM: Cardiac silhouette normal in size. Mediastinal and hilar contours appear normal. LINES/TUBES: None. BONES: No acute osseous abnormality. THIS IS AN ELECTRONICALLY VERIFIED FINAL REPORT 01/29/2024 10:54 AM - Electronically signed by Flynn Carrasco M.D. MM: MM Report ID: [id number] Reading Location: [id number] IMPRESSION: No acute pulmonary process. us Sharon Quispe MD IMG DIAGNOSTIC ORDERABLES Fin al Result * Blood Culture #2 (01/29/2024 9:31 AM TABLE KEEPER) Only the most recent of2 resultswithin the time period is included. CULTURE RESULTS NO GROWTH WITHIN 5 DAYS, FINAL RESULT 02/03/2024 10:01 AM TABLE KEEPER [facility] Culture BLOOD SPECIMEN / Unknown Venipuncture / Unknown 01/29/2024 9:31 AM TABLE KEEPER 01/29/2024 9:31 AM TABLE KEEPER us Sharon Quispe MD MICROBIOLOGY - GENERAL ORDERA BLES Final Result Performing Organization Address City/[facility]/ZIP Co de Phone Number [facility] [address] [place] [address], [place] * Gold Top Tube (01/29/2024 9:22 AM TABLE KEEPER) Blood No Phlebotomy Charged / Unknown 01/29/2024 9:22 AM TABLE KEEPER 01/29/2024 9:31 AM TABLE KEEPER us Sharon Quispe MD CHEMISTRY ORDERABLES Final Re sult [facility] [place] [address] * Blue Top Tube (01/29/2024 9:22 AM TABLE KEEPER) Blood No Phlebotomy Charged / Unknown 01/29/2024 9:22 AM TABLE KEEPER 01/29/2024 9:31 AM TABLE KEEPER us Sharon Quispe MD HEMATOLOGY ORDERABLES Final R esult Performing Organization Address City/[facility]/ZIP Co de Phone Number [facility] [place] [address] * (ABNORMAL) Hemoglobin A1C w/ Estimated Glucose (01/29/2024 9:21 AM TABLE KEEPER) HGB-A1C 7.5(H) 4.0 - 6.0 % 01/29/2024 5:21 PM TABLE KEEPER [facility] Est Average Glucose 168.6 mg/dL 01/29/2024 5:21 PM TABLE KEEPER [facility] Blood Venipuncture / Unknown 01/29/2024 9:21 AM TABLE KEEPER 01/29/2024 9:30 AM TABLE KEEPER Narrative [facility] - 01/29/2024 5:21 PM TABLE KEEPER HEMOGLOBIN A1C: DIABETIC PATIENTS: WELL-CONTROLLED: ?? 6.2 - 7.0 INTERMEDIATE WELL-CONTROLLED: ??7.0 - 9.0 POORLY-CONTROLLED: ??>9.0 us Alicia Sweet MD CHEMISTRY ORDERABLES Final Re sult Performing Organization Address City/[facility]/ZIP Co de Phone Number [facility] [place] [address] * RSV,SARS-COV-2,INFLUENZA A&B BY PCR (01/29/2024 9:21 AM TABLE KEEPER) FLU A Negative Negative, Error 01/29/2024 10:11 AM TABLE KEEPER [facility] FLU B Negative Negative 01/29/2024 10:11 AM TABLE KEEPER [facility] RESP SYNC VIRUS Negative Negative 10:11 AM [facility] SARSCOV2 NOT DETECTED (Reference Range for this test is Not Detected) 01/29/2024 10:11 AM [facility] Comment:This test was perfor med by a Reverse Engineering Faculty Member PCR Method. Swab NASOPHARYNGEAL SWAB / Unknown Non-Phlebotomy Collection / Unknown 01/29/2024 9:21 AM TABLE KEEPER 01/29/2024 9:29 AM TABLE KEEPER Narrative [facility] - 01/29/2024 10:11 AM TABLE KEEPER This test has not been FDA cleared or approved; the test has been authorized by FDA under an Emergency Use Authorization (EUA) for use by laboratories certified under the CLIA that meet the requirements to perform moderate, high or waived complexity tests. Authorized Fact Sheets about this test for providers and patients are available at: https://www.fda.gov/medical-devices/gwhdjqmpa-wikuiabkbf-faakjii-devices/emergen -us e-authorizations Result [facility] Sharon Quispe MD MICROBIOLOGY - GENERAL ORDERA BLES Final Result [facility] [place] [address] * (ABNORMAL) CMP (Comprehensive Metabolic Panel) (01/29/2024 9:21 AM TABLE KEEPER) Only the most recent of2 resultswithin the time period is included. SODIUM 138 136 - 145 mmol/L 01/29/2024 9:53 AM [facility] POTASSIUM 3.8 3.5 - 5.1 mmol/L 01/29/2024 9:53 AM [facility] CHLORIDE 97(L) 98 - 107 mmol/L 01/29/2024 9:53 AM [facility] CO2, VENOUS 29 22 - 30 mmol/L 01/29/2024 9:53 AM [facility] ANION GAP 15.8 <18.0 mmol/L 01/29/2024 9:53 AM [facility] GLUCOSE 155(H) 70 - 99 mg/dL 01/29/2024 9:53 AM [facility] BUN 9(L) 10 - 20 mg/dL 01/29/2024 9:53 AM [facility] CREATININE, BLOOD 0.70 0.60 - 1.00 mg/dL 01/29/2024 9:53 AM [facility] BUN/CREATININE RATIO 13 12 - 20 ratio 01/29/2024 9:53 AM [facility] TOTAL PROTEIN 7.1 6.3 - 8.2 g/dL 01/29/2024 9:53 AM [facility] ALBUMIN 4.0 3.5 - 5.0 g/dL 01/29/2024 9:53 AM [facility] A/G RATIO 1.3 1.0 - 2.2 01/29/2024 9:53 AM [facility] CALCIUM 10.2 8.7 - 10.5 mg/dL 01/29/2024 9:53 AM [facility] T BILI 0.9 0.2 - 1.2 mg/dL 01/29/2024 9:53 AM [facility] SGOT (AST) 20 5 - 34 U/L 01/29/2024 9:53 AM [facility] SGPT (ALT) 33 0 - 55 U/L 01/29/2024 9:53 AM [facility] ALKALINE PHOSPHATASE 84 40 - 150 U/L 01/29/2024 9:53 AM [facility] GFR, ESTIMATED >60 >=60 01/29/2024 9:53 AM [facility] Comment: Creatinine Clearance is the preferred criteria for selecting drug dose adjustments in renally impaired patients. ??The GFR is provided as additional pertinent clinical information. GFR is reported in mL/min/1.73 sq m. Calculation based on the Chronic Kidney Disease Epidemiology Collaboration (CKD- EPI) equation refit without adjustment for race. GFR, EST. >60 >=60 024 9:53 AM [facility] GFR, EST. NONAFRICAN >60 >=60 01/29/2024 9:53 AM TABLE KEEPER [facility] Blood Venipuncture / Unknown 01/29/2024 9:21 AM TABLE KEEPER 01/29/2024 9:30 AM TABLE KEEPER us Sharon Quispe MD CHEMISTRY ORDERABLES Final Re sult [facility] [address] [place] [address] * Critical Care (01/29/2024 9:15 AM TABLE KEEPER) Narrative Sharon Quispe MD - 01/29/2024 9:15 AM TABLE KEEPER Sharon Quispe MD ? 01/29/2024 ??6:47 PM Critical Care Performed by: Sharon Quispe MD Authorized by: Sharon Quispe MD ?? Critical care provider statement: ??Critical care time (minutes): ??35 ??Critical care time was exclusive of: ??Separately billable procedures and treating other patients ??Critical care was necessary to treat or prevent imminent or life-threatening deterioration of the following conditions: ??Sepsis ??Critical care was time spent personally by me on the following activities: ??Development of treatment plan with patient or surrogate, discussions with consultants, evaluation of patient's response to treatment, examination of patient, ordering and performing treatments and interventions, ordering and review of laboratory studies, ordering and review of radiographic studies, pulse oximetry and re-evaluation of patient's condition ??Care discussed with: admitting provider ?? Comments: ?? Blood culture and broad spectrum antibiotics us Sharon Quispe MD PROCEDURE/MINOR SURGICAL ORDE RABLES Final Result * EKG 12 LEAD (01/29/2024 9:07 AM TABLE KEEPER) Ventricular Rate 119 BPM EXTERNAL EKG Atrial Rate 119 BPM EXTERNAL EKG P-R Interval 136 ms EXTERNAL EKG QRS Duration 82 ms EXTERNAL EKG Q-T Duration 328 ms EXTERNAL EKG QTC CALCULATION 461 ms EXTERNAL EKG P [place] 41 degrees EXTERNAL EKG R [place] -20 degrees EXTERNAL EKG T [place] 46 degrees EXTERNAL EKG 01/29/2024 9:07 AM TABLE KEEPER Impressions EXTERNAL EKG - 02/03/2024 12:00 PM TABLE KEEPER Sinus tachycardia Minimal voltage criteria for LVH, may be normal variant ( R in aVL ) Borderline ECG No previous ECGs available Confirmed by Kizzy Darnell ([id number]) on 02/03/2024 12:00:02 PM Narrative Procedure Note Kizzy Darnell MD - 02/03/2024 IMPRESSION: Sinus tachycardia Minimal voltage criteria for LVH, may be normal variant ( R in aVL ) Borderline ECG No previous ECGs available Confirmed by Kizzy Darnell ([id number]) on 02/03/2024 12:00:02 PM us Sharon Quispe MD IMG ECG ORDERABLES Final Resu lt Performing Organization Address City/[facility]/ZIP Co de Phone Number EXTERNAL EKG * RHYTHM STRIP (01/29/2024 12:00 AM TABLE KEEPER) 01/29/2024 us Provider Scan IMG ECG ORDERABLES Final Result Performing Organization Address City/[facility]/ZIP Co de Phone Number RESULTING AGENCY * EKG SCAN (01/29/2024 12:00 AM TABLE KEEPER) 01/29/2024 us Provider Scan IMG ECG ORDERABLES Final Result Performing Organization Address City/[facility]/ZIP Co de Phone Number RESULTING AGENCY * PTT (01/24/2024 6:47 AM TABLE KEEPER) PTT 26 24 - 36 sec 01/24/2024 7:10 AM TABLE KEEPER [facility] Blood Venipuncture / Unknown 01/24/2024 6:47 AM TABLE KEEPER 01/24/2024 6:48 AM TABLE KEEPER Narrative [facility] - 01/24/2024 7:10 AM TABLE KEEPER Therapeutic range for unfractionated heparin at 0.3-0.7 U/mL is an aPTT value in the range of 71-100 seconds. Critical value for the PTT test is >= 122 seconds. John Prabhakar MD HEMATOLOGY ORDERABLES Final Resu lt Performing Organization Address [facility] de Phone Number [facility] [place] [address] * PT / INR (01/24/2024 6:47 AM TABLE KEEPER) PROTIME-PATIENT 14.2 11.6 - 14.8 sec 01/24/2024 7:10 AM TABLE KEEPER [facility] INR 1.0 0.9 - 1.2 01/24/2024 7:10 AM TABLE KEEPER [facility] Comment: Therapeutic Ranges INR = 2.0-3.0: Venous thromb, atrial fib, pul embolism, tissue heart valve, ami. INR = 2.5-3.5: Mechanical heart valve Critical value for INR is >/= 4.5 Blood Venipuncture / Unknown 01/24/2024 6:47 AM TABLE KEEPER 01/24/2024 6:48 AM TABLE KEEPER John Prabhakar MD HEMATOLOGY ORDERABLES Final Resu Performing Organization Address [facility] de Phone Number [facility] [place] [address] * KIMBERLY DIAG BILATERAL DIGITAL W CAD W CHELSEA (11/16/2023 1:57 PM CDT) Anatomical Region Laterality Modality breast Bilateral Mammography 11/16/2023 1:24 PM CDT Narrative 11/17/2023 10:26 [...] to exams dated: ??12/29/2018, 07/29/2020, and 08/25/2015 [facility]. ?? BREAST TISSUE:There are scattered areas of [...] Nael Alvarenga M.D. ? ll/:11/16/2023 14:35:56 ?? Chinchilla Farmer(s): Tara ?? RT Shaun(R)(M), [facility]; Rosemarie ??SEBASTAIN Villagran, [facility] letter sent: Normal Exam ?? Reading location: [...] to exams dated: 12/29/2018, 07/29/2020, and 08/25/2015 [facility]. BREAST TISSUE:There are scattered areas of fibroglandular [...] signed by: Nael Alvarenga M.D. ll/:11/16/2023 14:35:56 Chinchilla Farmer(s): Tara Dunn, RT(R)(M), [facility]; SEBASTIAN Bonds, [facility] letter sent: Normal Exam Reading location: [facility] BIRADS: Category 1: Negative Trupti Mejia MD IMG MAMMO ORDERABLES Final Re sult from Last 3 Months or Most Recently Relevant to Health Maintenance Insurance [place] Advance Directives * Full Code (Latest Code Status on File) Date Activated Date Inactivated Comments 01/29/2024 3:01 PM CPR-Full Treat ment: FULL ARREST: Attempt Resuscitation/CPR wit intubation and mechanical ventilation. PRE-ARREST: Use entire range of life support measures to stabilize the patient. * Full Code Date Activated Date Inactivated Comments 05/22/2023 12:30 AM 05/22/2023 7:33 PM CPR-Full Tr eatment: FULL ARREST: Attempt Resuscitation/CPR wit intubation and mechanical ventilation. PRE-ARREST: Use entire range of life support measures to stabilize the patient. * Full Code Date Activated Date Inactivated Comments 04/30/2023 7:12 PM 05/02/2023 3:32 PM CPR-Full Treat ment: FULL ARREST: Attempt Resuscitation/CPR wit intubation and mechanical ventilation. PRE-ARREST: Use entire range of life support measures to stabilize the patient. * Full Code Date Activated Date Inactivated Comments 01/05/2023 12:23 PM 01/05/2023 6:30 PM CPR-Full Tr eatment: FULL ARREST: Attempt Resuscitation/CPR wit intubation and mechanical ventilation. PRE-ARREST: Use entire range of life support measures to stabilize the patient. * Full Code Date Activated Date Inactivated Comments 02/18/2022 7:21 AM 04/29/2022 3:28 PM Healthcare Agents on File Name Relationship Healthcare Agent [facility] Communication [facility] POA Care Teams Commodity Analyst Relationship Specialty Start Date End Date Daja Kern MD [address] [place] [address] PCP - General Internal Medicine 03/13/15 Baron Vergara MD [address] [facility] [place] [address] Consulting Physician Pulmonary Disease 06/26/23
--- OUTSIDE RECORDS SUMMARY | 2024-03-03 19:25 | XMS_ITS | Clinical Summary ---
Author Organization [facility] Address [address] [place] [address]. [place], [place] [address] [place] [id number] Care Team Providers Care Braille Duplicating Machine Operator Name Role Phone None, Provider MD Primary Care Provider Unavaila ble Allergies Active Allergy Reactions Criticality Noted Date Comments Ziprasidone Hives 01/06/2023 Risperidone Hives 01/06/2023 Sulfa Antibiotics Hives 01/06/2023 Topiramate Hives 01/06/2023 Medications No known medications Social History Tobacco Use Types Packs/Day Years Used Date Smoking Tobacco: Never Assessed Comments No Sex and Gender Information Value Date Recorded Sex Assigned at Not on file Legal Sex Female 11:42 AM THEOLOGY PROFESSOR Gender Identity Not on file Sexual Orientation Not on file Last Filed Vital Signs Vital Sign Reading Time Taken Comments Blood Pressure 152/100 01/06/2023 11:46 AM THEOLOGY PROFESSOR Pulse 89 01/06/2023 1:25 PM THEOLOGY PROFESSOR Temperature 36.7 ??C (98.1 ??F) 01/06/2023 1 1:46 AM THEOLOGY PROFESSOR Respiratory Rate 20 01/06/2023 1:25 PM THEOLOGY PROFESSOR Oxygen Saturation 96% 01/06/2023 1:25 PM THEOLOGY PROFESSOR Inhaled Oxygen Concentration - - Weight 131.9 kg (290 lb 12.6 oz) 2022 11:46 AM THEOLOGY PROFESSOR Height 157.5 cm (5' 2 ) 01/06/2023 11:4 6 AM THEOLOGY PROFESSOR Body Mass Index 53.19 01/06/2023 11:46 AM THEOLOGY PROFESSOR Plan of Treatment Health Maintenance Due Date Last Done Comments Cervical Cancer Screening Pap Smear (Age 30 to 64) Every 3 Years 1972 Colorectal Cancer Screening Colonoscopy (10 Years) 1972 Annual Physical 12/16/1975 Hepatitis C 1990 Hepatitis B Vaccines (1 of 3 - 19+ 3-dose series) 12/16/1991 Cervical Cancer Screening Pap with HPV Testing (Age 30 to 64) Every 5 Years 2002 Cervical Cancer Screening with HPV 2002 Mammogram Screening 2012 Zoster Vaccines (1 of 2) 2022 COVID-19 Vaccine (3 - season) 2023 02/10/2021, 08/05/2020 Influenza Adult (#1) 2023 12/27/2022, 01/05/2021, 12/20/2017, Additional history exists DTaP, Tdap and Td Vaccines (3 - Td or Tdap) 06/22/2032 06/22/2022, 08/13/2015 Meningococcal Vaccine Aged Out No efrain curt eligible based on patient's age to complete this topic Pneumococcal Vaccine: Pediatrics (0 to 5 Years) and At-Risk Patients (6 to 64 Years) Aged Out No longer eligible based on patient's age to complete this topic RSV Immunizations Under 20 Months Aged Out No longer eligible based on patient's age to complete this topic Insurance [employer] Care Teams Braille Duplicating Machine Operator Relationship Specialty Start Date End Date None, Provider, MD PCP - General UNKNOWN PHYSICIAN SPECIALTY 01/06/23
--- OUTSIDE RECORDS SUMMARY | 2024-03-03 19:25 | XMS_ITS | Encounter Summary ---
Author Organization [employer] Care Team Providers Care Photo Booth Operator Name Role Phone Daja Kern MD Primary Care Provider [phone] Baron Vergara MD Unavailable Encounter Details Date Type Department Care Team (Latest Contact Info) Description 01/29/2024 Travel Social History Tobacco Use Types Packs/Day Years Used Date Smoking Tobacco: Never Smokeless Tobacco: Never Alcohol Use Standard Drinks/Week Comments No 0 (1 standard drink = 0.6 oz pur e alcohol) [facility] Utilities Answer Date Recorded In the past 12 months has [employer] electric, gas, oil, or water company threatened [...] declined 01/29/2024 How often do you attend worship or pentecostal serv ices? Patient declined 01/29/2024 Do you belong to any clubs o r organizations such as worship groups, unions, fraternal or athletic groups, or [...] medical care, and heating? Patient declined [facility] - Occupational Stress Questionnaire Answer [...] place to sleep or slept in a fpc (including now)? Patient declined 05/22/2023 Housing Stability Vital Sign Answer [place] e Recorded In the last 12 months, was t here a time when you were not able to pay the mortgage or rent on time? Patient declined 01/29/20 24 In the past 12 months, how m any times have you moved where you were living? 1 01/29/2024 At any time in the past 12 m onths, were you homeless or living in a fpc (including now)? Patient declined 01/29/2024 Sexually Active Control Partners Comments Yes None Male Comments No Sex and Gender Information Value Date Recorded Sex Assigned at Female 06/02/2023 1:39 AM CDT Legal Sex Female 11:06 PM CDT Gender Identity Female 06/02/2023 1:39 AM CDT Sexual Orientation Straight 06/02/2023 1: 39 AM CDT documented as of this encounter Functional Status * Audit-C Score Answer Date of Assessment Author -1 01/29/2024 3:24 PM Andria Jaimes RN * Within the last year, have you been humiliated or emotionally abused in other ways by your partner or ex-partner? Answer Date of Assessment Author Patient declined 01/29/2024 3:24 PM Andria Jaimes RN * Within the last year, have you been afraid of your partner or ex-partner? Answer Date of Assessment Author Patient declined 01/29/2024 3:24 PM Andria Jaimes RN * Within the last year, have you been raped or forced to have any kind of sexual activity by your partner or ex-partner? Answer Date of Assessment Author Patient declined 01/29/2024 3:24 PM Andria Jaimes RN * Within the last year, have you been kicked, hit, slapped, or otherwise physically hurt by your partner or ex-partner? Answer Date of Assessment Author Patient declined 01/29/2024 3:24 PM Andria Jaimes RN * Question Answer Date of Assessment Author Q1: How often do you have a drink containing alcohol? Patient declined 01/29/2024 3:24 PM Andria Jaimes RN Q2: How many drinks containing alcohol do you have on a typical day when you are drinking? Patient declined 01/29/2024 3:24 PM INFORMATICS DEVELOPER Claudine, Ramiro a L, RN Q3: How often do you have six or more drinks on one occasion? Patient declined 01/29/2024 3:24 PM INFORMATICS DEVELOPER Andria Chow RN documented as of this encounter Plan of Treatment Upcoming Encounters Date Type Department Care Team (Late st Contact Info) Description 03/27/2024 8:30 AM INFORMATICS DEVELOPER Hospital Encounter [facility] [address] [place] [address] Burt Eastman MD [address] [address] 03/27/2024 8:30 AM INFORMATICS DEVELOPER - 03/27/2024 9:00 AM INFORMATICS DEVELOPER Surgery [facility] [address] [address] [place] [address] Burt Eastman MD [address] [address] COLONOSCOPY 04/09/2024 1:15 PM INFORMATICS DEVELOPER Office Visit [facility] - Pulmonology & Sleep Medicine [facility] [address] [place] [phone] Baron Vergara MD [address] [place] [address] Scheduled Procedures Name Priority Associated Diagnoses Date/Ti me COLONOSCOPY HISTORY OF COLON POLYPS 03/27/2024 8:30 AM INFORMATICS DEVELOPER documented as of this encounter Visit Diagnoses Not on filedocumented in this encounter Additional Health Concerns Infection Onset Date Last Indicated Resolved Time COVID - 19 01/29/2024 01/29/2024 01/29/2024 10:1 1 AM INFORMATICS DEVELOPER documented as of this encounter Care Teams Photo Booth Operator Relationship Specialty Start Date End Date Daja Kern MD [address] [place], [place] [id number] PCP - General Internal Medicine 03/13/15 Baron Vergara MD [address] [place] [address] Consulting Physician Pulmonary Disease 06/26/23 documented as of this encounter
--- OUTSIDE RECORDS SUMMARY | 2024-03-03 19:25 | XMS_ITS | Encounter Summary ---
Author Organization [facility] Address [address] [place] [address] Phone Care Team Providers Care Camera Machinist Name Role Phone Daja Kern MD Primary Care Provider [phone] Baron Vergara MD Unavailable Reason for Referral * Radiology Services (Routine) - Closed Specialty Diagnoses / Procedures Referred By Contac t Referred To Contact Radiology Diagnoses Mastodynia of left breast Procedures [facility] BREAST LIMITED LT Trupti Mejia MD [address] [place] [address] Phone: tel: fax: Referral ID Status Reason Start Date Expiration Date Visits Re quested Visits Authorized [id number] Closed 10/16/2023 1 1 Reason for Visit * Radiology Services (Routine) - Closed Specialty Diagnoses / Procedures Referred By Ladi aguilar Referred To Contact Radiology Diagnoses Mastodynia of left breast Procedures [facility] BREAST LIMITED Trupti Mejia MD [address] [place] [address] Phone: tel: fax: Referral ID Status Reason Start Date Expiration Date Visits Re quested Visits Authorized [id number] Closed 10/16/2023 1 1 Encounter Details Date Type Department Care Team (Latest Contact Info) Description 11/16/2023 1:56 PM CDT - 11/16/2023 11:59 PM CDT Hospital Encounter [facility] Ultrasound [address] [facility] [place] [address] Trupti Mejia MD [address] [place] [address] Discharge Disposition: Discharged to home or Selfcare Social History Tobacco Use Types Packs/Day Years Used Date Smoking Tobacco: Never Smokeless Tobacco: Never Alcohol Use Standard Drinks/Week Comments No 0 (1 standard drink = 0.6 oz pur e alcohol) [facility] Utilities Answer Date Recorded In the past [...] declined 05/22/2023 How often do you attend sikhism or shinto serv ices? Patient declined 05/22/2023 Do you belong to any clubs o r organizations such as sikhism groups, unions, fraternal or athletic groups, or [...] medical care, and heating? Patient declined 05/22/2023 [facility] - Occupational Stress [...] place to sleep or slept in a skilled nursing (including now)? Patient declined 05/22/2023 Sexually Active Control Partners Comments Yes None Male Comments No Sex and Gender Information Value Date Recorded Sex Assigned at Female 06/02/2023 1:39 AM CDT Legal Sex Female 11:06 PM CDT Gender Identity Female 06/02/2023 1:39 AM CDT Sexual Orientation Straight 06/02/2023 1: 39 AM CDT documented as of this encounter Medications at Time of Discharge albuterol (PROVENTIL, VENTOLIN) (2.5 MG/3ML) 0.083% Nebulizer SolnIndications:A cute respiratory failure with hypoxia (HCC),Asthma exacerbation 3 mL by Nebulization route every 6 hours as needed for Wheezing. 360 mL 05/02/2023 ARIPiprazole extended release (Abilify Maintena) 400 MG Prefilled Syringe 400 mg by Intramuscular route every 28 days. Around the 8th of every month benztropine (COGENTIN) 0.5 MG Tablet Take 0.5 mg by mouth nightly. diphenoxylate-atr opine (LOMOTIL) 2.5-0.025 MG/5ML LiquidIndications :Diarrhea Take 5 mL by mouth 4 times daily as needed for Diarrhea. 60 mL 07/17/2023 DULoxetine (CYMBALTA) [address] Particles Take 90 mg by mouth daily. gabapentin (NEURONTIN) 300 MG Capsule Take 900 mg by mouth 3 times daily. guaiFENesin (MUCINEX) 600 MG TABLET SR 12 HR Take 1 Tablet by mouth every 12 hours as needed for Cough or Congestion. 05/22/2023 irbesartan (AVAPRO) 150 MG Tablet Take 300 mg by mouth daily. 02/11/2021 levothyroxine (SYNTHROID) 50 MCG TabletIndications :Hypothyroidism Take 50 mcg by mouth daily. Indications: Underactive Thyroid 06/18/2018 metFORMIN (GLUCOPHAGE-XR) 500 MG TABLET SR 24 HR Take 1,000 mg by mouth in the morning and at bedtime. 03/07/2023 metoprolol Succinate (TOPROL-XL) 25 MG TABLET SR 24 HR Take 50 mg by mouth daily. miconazole 2 % Powder Apply on the groin region. 71 g 01/05/2023 omeprazole (PriLOSEC) 40 MG CAPSULE DELAYED RELEASE Take 1 Capsule by mouth daily. 90 Capsule 06/02/2021 ondansetron (ZOFRAN-ODT) 4 MG TABLET DISPERSIBLE Take 1 Tablet by mouth every 6 hours as needed for Nausea - 1st line (for nausea or vomiting). 10 Tablet 01/05/2023 simvastatin (ZOCOR) 10 MG Tablet Take 10 mg by mouth every evening. traZODone (DESYREL) 50 MG Tablet Take 100 mg by mouth nightly. triamterene-hydro chlorothiazide (DYAZIDE) 37.5-25 MG Capsule Take 1 Capsule by mouth every morning. ALBUTEROL IN take by inhalation. 01/29/20 folic acid (FOLVITE) 1 MG Tablet Take 1 Tablet by mouth daily. 30 Tablet 01/06/2023 01/29/20 24 furosemide (LASIX) 20 MG Tablet Take 1 Tablet by mouth daily. 14 Tablet 01/07/2023 01/29/20 24 hydrOXYzine (ATARAX) 50 MG Tablet Take 1 Tablet by mouth every 6 hours as needed for Anxiety (Mild anxiety). 30 Tablet 01/05/2023 01/29/20 24 rOPINIRole (REQUIP) 0.5 MG Tablet Take 1 Tablet by mouth every 12 hours as needed for Other (For restless legs). 90 Tablet 01/05/2023 01/29/20 24 senna 8.6 MG Tablet Take 2 Tablets by mouth nightly as needed for Constipation - 1st line. 30 Tablet 01/05/2023 01/29/20 24 documented as of this encounter Plan of Treatment Upcoming Encounters Date Type Department Care Team (Late st Contact Info) Description 03/27/2024 8:30 AM FOSTER CARE CASE MANAGER [facility] [address] [place] [address] Burt Eastman MD [address] [address] 03/27/2024 8:30 AM FOSTER CARE CASE MANAGER - 03/27/2024 9:00 AM FOSTER CARE CASE MANAGER [facility] [address] [place] [address] Burt Eastman MD [address] [address] COLONOSCOPY 04/09/2024 1:15 PM FOSTER CARE CASE MANAGER Office Visit [facility] - Pulmonology & Sleep Medicine - [place] [address] [place] [phone] Baron Vergara MD [address] [place] [address] Scheduled Procedures Name Priority Associated Diagnoses Date/Ti me COLONOSCOPY HISTORY OF COLON POLYPS 03/27/2024 8:30 AM FOSTER CARE CASE MANAGER documented as of this encounter Procedures Procedure Name Priority Date/Time Associated Diagnosis Comments [facility] US BREAST LIMITED LT Routine 11/16/2023 2:32 PM CDT Mastodynia of left breast documented in this encounter Results * [facility] US BREAST LIMITED LT (11/16/2023 2:32 PM CDT) Anatomical Region Laterality Modality breast Left Ultrasound 11/16/2023 1:24 PM CDT Narrative 11/17/2023 10:26 AM CDT - [facility] DIAG BILATERAL DIGITAL W CAD W [place] - [facility] US BREAST LIMITED LT BILATERAL DIGITAL DIAGNOSTIC MAMMOGRAM 3D/2D WITH CAD WITH MEDIOLATERAL OBLIQUE CRANIOCAUDAL AND LEFT ULTRASOUND: 11/16/2023 The study was acquired using digital technology and interpreted from soft copy. Current study was also evaluated with [employer] version 7.2. 2D digital mammographic views, as [...] to exams dated: ??12/29/2018, 07[facility]29[facility]2020, [facility] ?? BREAST TISSUE:There are scattered areas of [...] Nael Alvarenga M.D. ? ll/:11/16/2023 14:35:56 ?? Software Requirements Engineer(s): Tara ?? RT Shaun(R)(M), [facility]; Rosemarie Ivy?SEBASTIAN Villagran, [facility] letter sent: Normal Exam ?? Reading location: [...] copy. Current study was also evaluated with [employer] version 7.2. 2D digital mammographic views, as [...] to exams dated: 12/29/2018, 07/29/2020, and 08/25/2015 [facility]. BREAST TISSUE:There are scattered areas of fibroglandular [...] signed by: Nael Alvarenga M.D. ll/:11/16/2023 14:35:56 Software Requirements Engineer(s): RT Maxine(R)(M), [facility]; SEBASTIAN Bonds, [facility] letter sent: Normal Exam Reading location: [facility] BIRADS: Category 1: Negative us Trupti Mejia MD IMG MAMMO ORDERABLES Final Re sult documented in this encounter Visit Diagnoses Diagnosis Mastodynia of left breast documented in this encounter Care Teams Camera Machinist Relationship Specialty Start Date End Date Daja Kern MD [address] [place] [address] PCP - General Internal Medicine 03/13/15 Baron Vergara MD [address] [place] [address] Consulting Physician Pulmonary Disease 06/26/23 documented as of this encounter
--- OUTSIDE RECORDS SUMMARY | 2024-03-03 19:25 | XMS_ITS | Encounter Summary ---
Author Organization [facility] Address [address] [place] [address] Phone Care Team Providers Care Handle Maker Name Role Phone Daja Carballo MD Primary Care Provider [phone] Baron Vergara MD Unavailable Reason for Visit * Reason Comments Shortness of Breath Cough * Auth/Cert (Routine) Specialty Diagnoses / Procedures Referred By Contac t Referred To Contact Diagnoses COPD exacerbation (HCC) Sepsis (HCC) Alicia Romero MD [address] [place] [address] Phone: tel: fax: Referral ID Status Reason Start Date Expiration Date Visits Re quested Visits Authorized [id number] 1 1 Encounter Details Date Type Department Care Team (Late st Contact Info) Description 01/29/2024 9:04 AM METEOROLOGIST LIAISON - 02/01/2024 12:53 PM METEOROLOGIST LIAISON Emergency [facility] Med Surg [address] [place] [address] Sharon Quispe MD [address] [place] [address] Alicia Romero MD [address] [place] [address] COPD exacerbation (HCC) Discharge Disposition: Discharged to home or Selfcare Social History Tobacco Use Types Packs/Day Years Used Date Smoking Tobacco: Never Smokeless Tobacco: Never Alcohol Use Standard Drinks/Week Comments No 0 (1 standard drink = 0.6 oz pur e alcohol) [facility] Utilities Answer Date Recorded In [...] declined 01/29/2024 How often do you attend rastafarian or anabaptism serv ices? Patient declined 01/29/2024 Do you belong to any clubs o r organizations such as rastafarian groups, unions, fraternal or athletic groups, or [...] medical care, and heating? Patient declined 01/29/2024 [facility] - [...] or rent on time? Patient declined 05/22/19 In the last 12 months, how many places have you lived? 1 05/22/2023 In the last 12 months, was t here a time when you did not have a steady place to sleep or slept in a fdc (including now)? Patient declined 05/22/2023 Housing Stability [...] any time in the past 12 m [facility], were you homeless or living in a fdc (including now)? Patient declined 01/29/2024 Sexually Active Control Partners Comments Yes None Male Comments No Sex and Gender Information Value Date Recorded Sex Assigned at Female 06/02/2023 1:39 AM CDT Legal Sex Female 11:06 PM CDT Gender Identity Female 06/02/2023 1:39 AM CDT Sexual Orientation Straight 06/02/2023 1: 39 AM CDT documented as of this encounter Last Filed Vital Signs Vital Sign Reading Time Taken Comments Blood Pressure 150/90 02/01/2024 5:37 AM METEOROLOGIST LIAISON Pulse 91 01/31/2024 1:09 PM METEOROLOGIST LIAISON Temperature 35.6 ??C (96.1 ??F) 02/01/2024 5:37 AM CS T Respiratory Rate 18 02/01/2024 7:19 AM METEOROLOGIST LIAISON Oxygen Saturation 97% 02/01/2024 7:19 AM METEOROLOGIST LIAISON Inhaled Oxygen Concentration - - Weight 127 kg (280 lb) 01/29/2024 9:09 AM METEOROLOGIST LIAISON Height 157.5 cm (5' 2 ) 01/29/2024 9:09 AM METEOROLOGIST LIAISON Body Mass Index 51.21 01/29/2024 9:09 AM METEOROLOGIST LIAISON documented in this encounter Functional Status * Audit-C Score [...] are drinking? Patient declined 01/29/2024 3:24 PM Ramiro Jaimes RN Q3: How often do you have six or more drinks on one occasion? Patient declined 01/29/2024 3:24 PM Andria Jaimes RN documented as of this encounter Discharge Summaries * Alicia Romero MD - 02/01/2024 9:59 AM CST Images from the original note were not included. [facility] DISCHARGE SUMMARY Name: Alona Kemp Age: 53 y.o. : 1970 Attending Physician: Alicia Romero MD Admission Date/Time: 01/29/2024 Discharge Date: 02/01/2024 Primary Care Physician: DAJA CARBALLO MD Discharging Provider: Alicia Romero MD INSTRUCTIONS FOR PHYSICIANS ON FOLLOW UP AFTER DISCHARGE: Follow-up with PCP: DAJA CARBALLO MD in 1 week Recommended Tests/Labs to order at follow-up: None Pending Labs/Path/Imaging: Blood culture x2 and urine culture x1 (all from 01/29/2024) Discharge Instructions: Discharge Condition: improved Disposition: Home Diet: Cardiac Diet Activity: activity as tolerated Primary Discharge Diagnosis: COPD exacerbation (HCC), sepsis, bronchitis, diabetes, hypothyroidism,BMI 51.21, hypertension Discharge Diagnoses: As above Active Hospital Problems No active problems to display. Resolved Hospital Problems Diagnosis Date Noted Date Resolved COPD exacerbation (HCC) [J44.1] 01/29/2024 01/31/2024 Admitting Diagnoses: As above HOSPITAL COURSE: Alona Kemp was admitted 01/29/2024 with COPD exacerbation (HCC) . Surgeries performed during stay: * No surgery found * Consults: A Patient was admitted on 01/29/2024 for evaluation of shortness of breath symptoms. Physical examination, laboratory testing imaging studies have identified patient suffering from acute COPD exacerbation and suspected sepsis related to bronchitis. With supportive management, breathing abilities havesince stabilized and was able to be discharged home on oral antibiotics and prednisone taper. Patient follow-up with blood culture x2 and urine culture testings (all from 01/29/2024) with PCP. Patient see PCP in 1 week. Prednisone taper and prescription for azithromycin Omnicef for provided as partof discharge management. Exam Day of Discharge: Temp Av.2 ??F (36.2 ??C) Min: 96.1 ??F (35.6 ??C) Max: 98.1 ??F (36.7 ??C) BP Min: 150/90 Max: 154/108 Pulse Av Min: 91 Max: 91 Heart Rate (Monitor) Av.5 Min: 86 Max: 104 Resp Av.8 Min: 18 Max: 20 SpO2 Av.4 % Min: 94 % Max: 100 % O2 Flow Rate (l/min): 2 l/min General: alert, and in no distress. Neck: No JVD. CVS: RRR, no murmur. Chest: clear to auscultation, no wheezes, rales or rhonchi, symmetric air entry. Heart: regular rate and rhythm, S1, S2 normal, no murmur, click, rub or gallop Abdominal: soft, nontender, nondistended. Positive Bowel sounds. Extremities: no edema, no clubbing or cyanosis. Urology: deferred Lab / Imaging Review: Lab Results Component Value Date WBC 15.31 (H) 02/01/2024 HEMOGLOBIN 13.6 02/01/2024 PLATELETCNT 237 02/01/2024 MCV 94.0 02/01/2024 Lab Results Component Value Date SODIUM 135 (L) 02/01/2024 POTASSIUM 4.5 02/01/2024 CHLORIDE 97 (L) 02/01/2024 CO2VEN 26 02/01/2024 ANIONGAP 16.5 02/01/2024 GLUCOSE 250 (H) 02/01/2024 BUN 20 02/01/2024 CREATININE 0.79 02/01/2024 BCRATIO8 25 (H) 02/01/2024 TOTALPROTEIN 7.1 01/29/2024 ALBUMIN 4.0 01/29/2024 CALCIUM 9.7 02/01/2024 TBIL 0.9 01/29/2024 SGOTAST 20 01/29/2024 SGPTALT 33 01/29/2024 ALKALINEPHO 84 01/29/2024 GFRNA >60 02/01/2024 GFRA >60 02/01/2024 Lab Results Component Value Date GLUCOSEPOCT 169 (H) 02/01/2024 Lab Results Component Value Date INR 1.0 01/24/2024 PTP 14.2 01/24/2024 Lab Results Component Value Date HGBA1C 7.5 (H) 01/29/2024 Lab Results Component Value Date [id number] 251 08/25/2015 Lab Results Component Value Date CPK 100 01/29/2024 CPK 67 10/02/2022 TROPONINI <0.300 02/08/2022 Lab Results Component Value Date FERRITIN 18 08/25/2015 No results found for: FOLATE Lab Results Component Value Date PHARTERIAL 7.37 04/30/2023 PO2ART 66 (L) 04/30/2023 [id number] 59 (H) 04/30/2023 O2ART 89 (L) 04/30/2023 Lab Results Component Value Date LACTICA 1.9 01/30/2024 CT ANGIO CHEST W/WO ABDOMEN PELVIS W CONTRAST Result Date: 01/29/2024 IMPRESSION: Suboptimal opacification of the pulmonary arteries. The segmental pulmonary arteries are not well opacified and incompletely evaluated. No central pulmonary embolism. Diffuse bronchial wall thickening can be seen with bronchitis. No acute abnormality in the abdomen or pelvis. Hepatic steatosis. XR CHEST SINGLE VIEW PORTABLE Result Date: 01/29/2024 IMPRESSION: No acute pulmonary process. XR Spine Lumbar Ap Lat Flex Ext min 4 Views Result Date: 01/03/2024 1. 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 Indications: Community Acquired Pneumonia cefdinir 300 MG Caps Commonly known as: OMNICEF Take 1 Capsule by mouth 2 times daily for 5 days. predniSONE 10 MG Tabs Commonly known as: DELTASONE Take 3 Tablets by mouth daily for 2 days, THEN 2 Tablets daily for 2 days, THEN 1 Tablet daily for 2 days, THEN 0.5 Tablets daily for 2 days. Start taking on: February 02, 2024 CHANGE how you take these medications miconazole 2 % Powd Apply on the groin region. What changed: how to take this when to take this reasons to take this additional instructions CONTINUE taking these medications Abilify Maintena 400 MG Prsy Generic drug: ARIPiprazole extended release * albuterol (2.5 MG/3ML) 0.083% Nebu Commonly known as: PROVENTIL, VENTOLIN 3 mL by Nebulization route every 6 hours as needed for Wheezing. * albuterol 108 (90 Base) MCG/ACT Aers Commonly known as: PROVENTIL HFA, VENTOLIN HFA benztropine 0.5 MG Tabs Commonly known as: COGENTIN diphenoxylate-atropine 2.5-0.025 MG/5ML Liqd Commonly known as: LOMOTIL Take 5 mL by mouth 4 times daily as needed for Diarrhea. DULoxetine 20 MG Cpep Commonly known as: CYMBALTA gabapentin 300 MG Caps Commonly known as: NEURONTIN guaiFENesin 600 MG Tab-sr-12hr Commonly known as: MUCINEX Take 1 Tablet by mouth every 12 hours as needed for Cough or Congestion. hydroCHLOROthiazide 25 MG Tabs irbesartan 150 MG Tabs Commonly known as: AVAPRO levothyroxine 50 MCG Tabs Commonly known as: SYNTHROID metFORMIN 500 MG Tab-sr-24hr Commonly known as: GLUCOPHAGE-XR metoprolol Succinate 25 MG Tab-sr-24hr Commonly known as: TOPROL-XL omeprazole 40 MG Cap-del-rel Commonly known as: PriLOSEC Take 1 Capsule by mouth daily. ondansetron 4 MG Tab-disperse Commonly known as: ZOFRAN-ODT Take 1 Tablet by mouth every 6 hours as needed for Nausea - 1st line (for nausea or vomiting). simvastatin 10 MG Tabs Commonly known as: ZOCOR traZODone 50 MG Tabs Commonly known as: DESYREL triamterene-hydrochlorothiazide 37.5-25 MG Caps Commonly known as: DYAZIDE * This list has 2 medication(s) that are the same as other medications prescribed for you. Read thedirections carefully, and ask your doctor or other care provider to review them with you. Where to Get Your Medications Information about where to get these medications is not yet available Ask your nurse or doctor about these medications azithromycin 250 MG Tabs cefdinir 300 MG Caps predniSONE 10 MG Tabs Time spent on interview, examination, final orders, recommendations, and care coordination for thishospital discharge: Greater than 30 minutes spent in coordinating care --- 33 minutes Thank you very much for allowing the [facility] Adult Hospitalist Service to participate in the care of this patient. If you have any questions, please don't hesitate to call. Signed: Alicia Romero MD, 02/01/2024, 9:59 AM METEOROLOGIST LIAISON OROLOGIST LIAISON documented in this encounter Discharge Instructions * Appointments* Alicia Romero MD - 01/31/2024 8:00 AM METEOROLOGIST LIAISON COPD exac --- prednisone taper. Pna --- treated with Rocephin and azithromycin. Discharge on azithromycin and Omnicef. Follow-up blood culture x2 and urine culture (01/29/2024) with PCP Follow up with PCP in 1 week OROLOGIST LIAISON documented in this encounter Medications at Time of Discharge albuterol (PROVENTIL, VENTOLIN) (2.5 MG/3ML) 0.083% Nebulizer SolnIndications:A cute respiratory failure with hypoxia (HCC),Asthma exacerbation 3 mL by Nebulization route every 6 hours as needed for Wheezing. 360 mL 05/02/2023 albuterol 108 (90 Base) MCG/ACT Aerosol Solution take 2 Puffs by inhalation every 4 hours as needed for Wheezing or Cough. ARIPiprazole extended release (Abilify Maintena) 400 MG [...] as needed for Cough or Congestion. 05/22/2023 hydroCHLOROthiazi de 25 MG Tablet Take 1 Tablet by mouth daily. 01/26/2024 irbesartan (AVAPRO) 150 MG Tablet Take 300 [...] Take 1 Capsule by mouth every morning. azithromycin (ZITHROMAX) 250 MG TabletIndications :Community Acquired Pneumonia Take 1 Tablet by mouth daily for 3 days. Indications: Community Acquired Pneumonia 3 Tablet 02/01/2024 02/04/20 24 cefdinir (OMNICEF) 300 MG Capsule Take 1 Capsule by mouth 2 times daily for 5 days. 10 Capsule 02/01/2024 02/06/20 24 predniSONE (DELTASONE) 10 MG Tablet Take 3 Tablets by mouth daily for 2 days, THEN 2 Tablets daily for 2 days, THEN 1 Tablet daily for 2 days, THEN 0.5 Tablets daily for 2 days. 13 Tablet 02/02/2024 02/10/20 24 documented as of this encounter Progress Notes * Alicia Romero MD - 01/31/2024 5:05 PM CST [facility] DAILY PROGRESS NOTE Alona Kemp is a 53 y.o. female at Hospital LOS: 2 days Assessment: Active Hospital Problems No active problems to display. Resolved Hospital Problems Diagnosis Date Noted Date Resolved COPD exacerbation (HCC) 01/29/2024 01/31/2024 Vitals: 01/31/24 0545 01/31/24 0708 01/31/24 0851 01/31/24 1309 Temp: 97.4 ??F (36.3 ??C) 97.4 ??F (36.3 ??C) 98.1 ??F (36.7 ??C) TempSrc: Tympanic Heart Rate (Monitor): 86 85 Pulse: 91 Resp: 20 16 20 BP: (!) 161/104 (!) 151/95 Height: Weight: SpO2: 95% 96% 96% I/O last 3 completed shifts: In: 240 [P.O.:240] Out: - Plan: Plan Sepsis Likely associated with bronchitis etiology versus other URI WBC 10.38K, lactic acid 2.9, heart rate 122, respiratory rate 26, CRP 6.96 Repeat lactate 2.5 Blood culture testing x2 sets sent Urine antigen markers pending Through swab pending IV fluid IV antibiotic with Rocephin and azithromycin 01/31/2024 --- no growth to date on blood culture testing x2 by day 2 Bronchitis Greenish phlegm production referred and sore throat IV antibiotics Pending follow-up blood culture results Pending follow-up of throat culture 01/30/2024 --- clinically improving. Continue current management. No growth to date and blood culture testing x2 Acute COPD exacerbation Patient not requiring oxygen supplementation Physical examination identifies coarse breath sounds bilaterally IV Solu-Medrol DuoNebs 01/30/2024 --- clinically improving, pending deescalation of steroid supplementation 01/31/2024 --- worsening COPD findings noted. Supplement IV Solu-Medrol and hold discharge Diabetes Hold home regimen of metformin, status post CT imaging with contrast Lantus insulin protocol Fingersticks q.a.c. and HS with sliding scale coverage at mealtime insulin A1c level add on test requested 01/30/2024 --- A1c 7.5 Hypothyroidism Continue home regimen Hypertension Continue home regimen IV hydralazine p.r.n. Monitor vital signs closely EKG pending Disposition: Possible discharge home in 1 days Code Status: Code Status: Full code 4. VTE Prophylaxis: Lovenox Expected discharge date: 02/02/2024 Subjective: Interval History: Patient seen at chair side. Slight worsening of COPD on evaluation of patient. Discharge will be held Review of Systems: A 14 point comprehensive review of systems was negative, except as documented in HPI. Objective: Exam: General: alert, oriented and in no acute distress. Skin: normal coloration and turgor, no rashes. HEENT: normocephalic, atraumatic. Pupils equal, round and reactive to light. Extraocular movements intact. Oronasopharynx pink and moist, no lesion or exudate. Neck: Supple. No JVD, lymphadenopathy thyromegaly or carotid bruits auscultated. CVS: RRR, S1/S2 normal, no murmurs, gallops or rubs. Chest: Room air, moderate rhonchi bilaterally. Abdominal: soft, nontender, nondistended. Positive Bowel sounds, no organomegaly appreciated. Extremities: no edema, no clubbing or cyanosis. Neuro: CN 2-12 grossly intact, normal speech, no focal findings or movement disorder noted. Gait not tested.. Lab Results: Lab Results Component Value Date PHARTERIAL 7.37 04/30/2023 PO2ART 66 (L) 04/30/2023 [id number] 59 (H) 04/30/2023 O2ART 89 (L) 04/30/2023 Lab Results Component Value Date WBC 11.21 01/31/2024 HEMOGLOBIN 12.6 01/31/2024 PLATELETCNT 217 01/31/2024 MCV 96.4 (H) 01/31/2024 Lab Results Component Value Date SODIUM 138 01/31/2024 POTASSIUM 4.0 01/31/2024 CHLORIDE 103 01/31/2024 CO2VEN 27 01/31/2024 ANIONGAP 12.0 01/31/2024 GLUCOSE 132 (H) 01/31/2024 BUN 17 01/31/2024 CREATININE 0.71 01/31/2024 BCRATIO8 24 (H) 01/31/2024 TOTALPROTEIN 7.1 01/29/2024 ALBUMIN 4.0 01/29/2024 CALCIUM 9.3 01/31/2024 TBIL 0.9 01/29/2024 SGOTAST 20 01/29/2024 SGPTALT 33 01/29/2024 ALKALINEPHO 84 01/29/2024 GFRNA >60 01/31/2024 GFRA >60 01/31/2024 Lab Results Component Value Date CPK 100 01/29/2024 TROPONINI <0.300 02/08/2022 No results found for: FOLATE Lab Results Component Value Date LACTICA 1.9 01/30/2024 Lab Results Component Value Date [id number] 251 08/25/2015 Lab Results Component Value Date FERRITIN 18 08/25/2015 Lab Results Component Value Date GLUCOSEPOCT 248 (H) 01/31/2024 EKG: EKG 12 LEAD Result Date: 08/18/2023 Normal sinus rhythm Moderate voltage criteria for LVH, may be normal variant ( R in aVL , Magnolia product ) Cannot rule out Anterior infarct , age undetermined Abnormal ECG When compared with ECG of 30-MAY-2023 13:11, No significant change was found Confirmed by James Brunson ([id number]) on 08/18/2023 12:45:32 PM EKG 12 LEAD Result Date: 05/30/2023 Normal sinus rhythm with sinus arrhythmia Moderate voltage criteria for LVH, may be normal variant ( R in aVL , Magnolia product ) Borderline ECG When compared with ECG of 21-MAY-2023 21:22, No significant change was found Confirmed by Antonio Kim ([id number]) on 05/30/2023 10:01:43 PM EKG 12 LEAD Result Date: 05/22/2023 Sinus tachycardia Minimal voltage criteria for LVH, may be normal variant ( R in aVL ) Borderline ECG When compared with ECG of 07-JAN-2023 09:12, No significant change was found Confirmed by Blane Sawyer ([id number]) on 05/22/2023 6:29:06 PM Imaging: No results found. By: Alicia Romero MD, 01/31/2024 5:05 PM METEOROLOGIST LIAISON OROLOGIST LIAISON * Alicia Romero MD - 01/30/2024 9:29 PM CST [facility] PROGRESS NOTE Alona Kemp is a 53 y.o. female at Hospital LOS: 1 day Assessment: Active Hospital Problems Diagnosis Date Noted COPD exacerbation (HCC) 01/29/2024 Resolved Hospital Problems No resolved problems to display. Vitals: 01/30/24 1315 01/30/24 1337 01/30/24 1600 01/30/24 1933 Temp: 98.6 ??F (37 ??C) 98.1 ??F (36.7 ??C) 98 ??F (36.7 ??C) TempSrc: Tympanic Tympanic Heart Rate (Monitor): (!) 116 Pulse: 102 96 87 Resp: 18 16 18 22 BP: (!) 139/99 141/76 (!) 150/92 Height: Weight: SpO2: 96% 95% 94% 96% I/O last 3 completed shifts: In: 2470 [P.O.:720; I.V.:1500; IV Piggyback:250] Out: - Plan: Plan Sepsis Likely associated with bronchitis etiology versus other URI WBC 10.38K, lactic acid 2.9, heart rate 122, respiratory rate 26, CRP 6.96 Repeat lactate 2.5 Blood culture testing x2 sets sent Urine antigen markers pending Through swab pending IV fluid IV antibiotic with Rocephin and azithromycin Bronchitis Greenish phlegm production referred and sore throat IV antibiotics Pending follow-up blood culture results Pending follow-up of throat culture 01/30/2024 --- clinically improving. Continue current management. No growth to date and blood culture testing x2 Acute COPD exacerbation Patient not requiring oxygen supplementation Physical examination identifies coarse breath sounds bilaterally IV Solu-Medrol DuoNebs 01/30/2024 --- clinically improving, pending deescalation of steroid supplementation Diabetes Hold home regimen of metformin, status post CT imaging with contrast Lantus insulin protocol Fingersticks q.a.c. and HS with sliding scale coverage at mealtime insulin A1c level add on test requested 01/30/2024 --- A1c 7.5 Hypothyroidism Continue home regimen Hypertension Continue home regimen IV hydralazine p.r.n. Monitor vital signs closely EKG pending Disposition: Possible discharge home in 1-2 days Code Status: Code Status: Full code 4. VTE Prophylaxis: Lovenox Expected discharge date: 02/02/2024 Subjective: Interval History: Patient seen at chair side. Improved breathing over prior day. Review of Systems: A 14 point comprehensive review of systems was negative, except as documented in HPI. Objective: Exam: General: alert, oriented and in no acute distress. Skin: normal coloration and turgor, no rashes. HEENT: normocephalic, atraumatic. Pupils equal, round and reactive to light. Extraocular movements intact. Oronasopharynx pink and moist, no lesion or exudate. Neck: Supple. No JVD, lymphadenopathy thyromegaly or carotid bruits auscultated. CVS: RRR, S1/S2 normal, no murmurs, gallops or rubs. Chest: Mild rhonchi bilaterally, no focal consolidation, on room air. Abdominal: soft, nontender, nondistended. Positive Bowel sounds, no organomegaly appreciated. Extremities: no edema, no clubbing or cyanosis. Neuro: CN 2-12 grossly intact, normal speech, no focal findings or movement disorder noted. Gait not tested.. Lab Results: Lab Results Component Value Date PHARTERIAL 7.37 04/30/2023 PO2ART 66 (L) 04/30/2023 [id number] 59 (H) 04/30/2023 O2ART 89 (L) 04/30/2023 Lab Results Component Value Date WBC 14.16 (H) 01/30/2024 HEMOGLOBIN 12.3 01/30/2024 PLATELETCNT 221 01/30/2024 MCV 95.6 01/30/2024 Lab Results Component Value Date SODIUM 137 01/30/2024 POTASSIUM 4.5 01/30/2024 CHLORIDE 104 01/30/2024 CO2VEN 22 01/30/2024 ANIONGAP 15.5 01/30/2024 GLUCOSE 266 (H) 01/30/2024 BUN 16 01/30/2024 CREATININE 0.72 01/30/2024 BCRATIO8 22 (H) 01/30/2024 TOTALPROTEIN 7.1 01/29/2024 ALBUMIN 4.0 01/29/2024 CALCIUM 9.6 01/30/2024 TBIL 0.9 01/29/2024 SGOTAST 20 01/29/2024 SGPTALT 33 01/29/2024 ALKALINEPHO 84 01/29/2024 GFRNA >60 01/30/2024 GFRA >60 01/30/2024 Lab Results Component Value Date CPK 100 01/29/2024 TROPONINI <0.300 02/08/2022 No results found for: FOLATE Lab Results Component Value Date LACTICA 1.9 01/30/2024 Lab Results Component Value Date [id number] 251 08/25/2015 Lab Results Component Value Date FERRITIN 18 08/25/2015 Lab Results Component Value Date GLUCOSEPOCT 295 (H) 01/30/2024 EKG: EKG 12 LEAD Result Date: 08/18/2023 Normal sinus rhythm Moderate voltage criteria for LVH, may be normal variant ( R in aVL , Magnolia product ) Cannot rule out Anterior infarct , age undetermined Abnormal ECG When compared with ECG of 30-MAY-2023 13:11, No significant change was found Confirmed by James Brunson ([id number]) on 08/18/2023 12:45:32 PM EKG 12 LEAD Result Date: 05/30/2023 Normal sinus rhythm with sinus arrhythmia Moderate voltage criteria for LVH, may be normal variant ( R in aVL , Magnolia product ) Borderline ECG When compared with ECG of 21-MAY-2023 21:22, No significant change was found Confirmed by Antonio Kim ([id number]) on 05/30/2023 10:01:43 PM EKG 12 LEAD Result Date: 05/22/2023 Sinus tachycardia Minimal voltage criteria for LVH, may be normal variant ( R in aVL ) Borderline ECG When compared with ECG of 07-JAN-2023 09:12, No significant change was found Confirmed by Blane Sawyer ([id number]) on 05/22/2023 6:29:06 PM Imaging: No results found. By: Alicia Romero MD, 01/30/2024 9:29 PM METEOROLOGIST LIAISON OROLOGIST LIAISON * Alicia Romero MD - 01/30/2024 12:40 PM CST Request for Documentation Clarification [facility] Alona Kemp ; VISIT [id number] Query Response Sent: 01/30/24 12:40 METEOROLOGIST LIAISON From: ALICIA ROMERO MD Query question: Based on the clinical indicators listed below and your professional judgement, can an associated diagnosis be provided? Please complete by selecting one of the options below. Provider response: Other explanation of clinical findings (please specify) Sepsis OROLOGIST LIAISON Original Query Sent: 01/30/24 12:38 METEOROLOGIST LIAISON From: Char Martinez To: ALICIA ROMERO MD By submitting this query, we are seeking further clarification of documentation to accurately reflect all conditions that you monitored, evaluated, treated, or that may have extended the hospitalization or utilization of additional resources for care. Reason for Clarification H&P by Alicia Romero at 01/29/2024 17:15 lactic acid 2.9 H&P by Alicia Romero at 01/29/2024 17:15 Repeat lactate 2.5 Based on the clinical indicators listed below and your professional judgement, can an associated diagnosis be provided? Please complete by selecting one of the options below. * Lactic acidosis * Metabolic acidosis (please clarify if acute or chronic) * No clinical significance of abnormal lab findings * Other explanation of clinical findings (please specify) Clinical Information * Signs and Symptoms * Shortness of breath: ED Provider Notes by Sharon Quispe at 01/29/2024 18:47 SOB * Labs: Lactic Acid 2.9 01/29/2024 09:21 Lactic Acid 2.5 01/29/2024 12:17 Lactic Acid 1.9 01/30/2024 05:49 * Risk Factors * COPD: H&P by Alicia Romero at 01/29/2024 17:15 Acute COPD exacerbation * Treatment * Normal saline: MEDICATION ADMINISTRATION sodium chloride 0.9 % 1,000 mL IV bolus MEDICATION ORDER SODIUM CHLORIDE 0.9 % IV SOLN - Dose: 100ml/hr - Route: IV Referenced Documents * ED Provider Notes [19] - 01/29/24 18:47 * H&P [4] - 01/29/24 17:15 OROLOGIST LIAISON documented in this encounter H&P Notes * Alicia Romero MD - 01/29/2024 1:39 PM CST [facility] ADMISSION HISTORY & PHYSICAL Aggregate [id number] time was spent discussing end-of-life care planning with patient/family and/or Power of Pull Up Hand. Approximately 20 was spent. Discussed CPR, Intubation, treatment goals, and Quality of life/Intensity of care. Patient desires CPR-Full Treatment Chief Complaint: Shortness of breath Assessment/Plan: There are no hospital problems to display for this patient. Plan Plan: Sepsis Likely associated with bronchitis etiology versus other URI WBC 10.38K, lactic acid 2.9, heart rate 122, respiratory rate 26, CRP 6.96 Repeat lactate 2.5 Blood culture testing x2 sets sent Urine antigen markers pending Through swab pending IV fluid IV antibiotic with Rocephin and azithromycin Bronchitis Greenish phlegm production referred and sore throat IV antibiotics Pending follow-up blood culture results Pending follow-up of throat culture Acute COPD exacerbation Patient not requiring oxygen supplementation Physical examination identifies coarse breath sounds bilaterally IV Solu-Medrol DuoNebs Diabetes Hold home regimen of metformin, status post CT imaging with contrast Lantus insulin protocol Fingersticks q.a.c. and HS with sliding scale coverage at mealtime insulin A1c level add on test requested Hypothyroidism Continue home regimen Hypertension Continue home regimen IV hydralazine p.r.n. Monitor vital signs closely EKG pending Disposition: Possible discharge home in 4 days Code Status: Code Status: Full code 4. VTE Prophylaxis: Lovenox Thank you very much for allowing the [facility] to participate in the care of this patient HPI: Alona Kemp is a 53 y.o. female who presented to [facility] with complaints of shortness of breath symptoms have been worsening since yesterday. Patient has indicated experiencing fever spike of 101?? F while in route with EMS personnel. Separately, chills and sweats have also been noted by patient, in addition to having nausea symptoms. A cough with green phlegm production hasdeveloped over the past several days, and during which time patient has had experienced chest discomfort primarily with deep inspiration on right side chest wall. Diarrhea symptoms were noted by patient several days ago and have since resolved. During this time patient has not experienced abdominal pain or bloating sensation. No urinary symptoms referred by patient. Patient has denied the presence of swelling of abdomen nor legs, however mild cramping pain symptoms on thighs and calves have persisted and have not changed from baseline. No recent travel history is referred, however patient hasbeen exposed to her mother who was ill with pneumonia in the past week. At present time patient also refers sore throat, nasal congestion and slight hoarseness to voice. There are no complaints of difficulty with chewing or swallowing. Recent treatment for urinary tract infection in the past month has noted, for which patient has completed antibiotic therapy. Separately, depression medication has been adjusted/reduced recently. Allergies: is allergic to geodon [ziprasidone hcl], risperdal [risperidone], topamax [topiramate], and sulfa antibiotics. As noted Home Medications: Prior to Admission Medications Prescriptions Last Dose Informant Patient Reported? Taking? ALBUTEROL IN Yes No Sig: take by inhalation. ARIPiprazole extended release (Abilify Maintena) 400 MG Prefilled Syringe Yes No Si mg by Intramuscular route every 28 days. Around the 8th of every month DULoxetine (CYMBALTA) [address] Particles Yes No Sig: Take 60 mg by mouth 2 times daily. albuterol (PROVENTIL, VENTOLIN) (2.5 MG/3ML) 0.083% Nebulizer Soln No No Si mL by Nebulization route every 6 hours as needed for Wheezing. benztropine (COGENTIN) 0.5 MG Tablet Yes No Sig: Take 0.5 mg by mouth 2 times daily. diphenoxylate-atropine (LOMOTIL) 2.5-0.025 MG/5ML Liquid No No Sig: Take 5 mL by mouth 4 times daily as needed for Diarrhea. folic acid (FOLVITE) 1 MG Tablet No No Sig: Take 1 Tablet by mouth daily. Patient not taking: Reported on 06/26/2023 furosemide (LASIX) 20 MG Tablet No No Sig: Take 1 Tablet by mouth daily. Patient not taking: Reported on 06/26/2023 gabapentin (NEURONTIN) 300 MG Capsule Yes No Sig: Take 900 mg by mouth 3 times daily. guaiFENesin (MUCINEX) 600 MG TABLET SR 12 HR No No Sig: Take 1 Tablet by mouth every 12 hours as needed for Cough or Congestion. hydrOXYzine (ATARAX) 50 MG Tablet No No Sig: Take 1 Tablet by mouth every 6 hours as needed for Anxiety (Mild anxiety). irbesartan (AVAPRO) 150 MG Tablet Yes No Sig: Take 300 mg by mouth daily. levothyroxine (SYNTHROID) 50 MCG Tablet Pharmacy Yes No Sig: Take 50 mcg by mouth daily. Indications: Underactive Thyroid metFORMIN (GLUCOPHAGE-XR) 500 MG TABLET SR 24 HR Yes No Sig: Take 500 mg by mouth 3 times daily. metoprolol Succinate (TOPROL-XL) 25 MG TABLET SR 24 HR Yes No Sig: Take 25 mg by mouth daily. miconazole 2 % Powder No No Sig: Apply on the groin region. Patient not taking: Reported on 06/26/2023 omeprazole (PriLOSEC) 40 MG CAPSULE DELAYED RELEASE No No Sig: Take 1 Capsule by mouth daily. ondansetron (ZOFRAN-ODT) 4 MG TABLET DISPERSIBLE No No Sig: Take 1 Tablet by mouth every 6 hours as needed for Nausea - 1st line (for nausea or vomiting). rOPINIRole (REQUIP) 0.5 MG Tablet No No Sig: Take 1 Tablet by mouth every 12 hours as needed for Other (For restless legs). Patient not taking: Reported on 06/26/2023 senna 8.6 MG Tablet No No Sig: Take 2 Tablets by mouth nightly as needed for Constipation - 1st line. Patient not taking: Reported on 06/26/2023 simvastatin (ZOCOR) 10 MG Tablet Yes No Sig: Take 10 mg by mouth every evening. traZODone (DESYREL) 50 MG Tablet Yes No Sig: Take 100 mg by mouth nightly. triamterene-hydrochlorothiazide (DYAZIDE) 37.5-25 MG Capsule Yes No Sig: Take 1 Capsule by mouth every morning. Facility-Administered Medications: None Past Medical History: She has a past medical history of Adenomatous colon polyp, Anxiety, Bipolar disorder ([facility]), Cocaine abuse ([facility]), COPD (chronic obstructive pulmonary disease) ([facility]), DDD (degenerative disc disease), lumbar, Depression, Diabetes mellitus ([facility]), GERD (gastroesophageal reflux disease), HLD (hyperlipidemia), HTN (hypertension), Hypothyroid, IBS (irritable bowel syndrome), Morbid obesity ([facility]), NAFLD (nonalcoholic fatty liver disease), Nephrocalcinosis, KWABENA (obstructive sleep apnea), SBO (small bowel obstruction) ([facility]) (09/2018), and Vitamin D deficiency. As noted Surgical History: has a past surgical history that includes Section (1994); Cholecystectomy (2004); EGD (2012?); Colonoscopy; [place] Tooth Extraction (1991); Colonoscopy (N/A, 11/16/2018); and Upper Gastrointestinal Endoscopy (N/A, 02/06/2019). As noted Social History: reports that she has never smoked. She has never used smokeless tobacco. She reports current drug use. Drug: Crack cocaine. She reports that she does not drink alcohol. Lives family, not working, positive smoking history secondary exposure from her mother and stepfather, no alcohol history, positive drug use for cocaine only Family History: family history includes Depression in her brother and mother; Diabetes in her maternal uncle and mother; Hypertension in her mother; No Known Problems in her daughter; Obstructive Sleep Apnea in her brother. Mother with skin cancer Review of Systems: All systems reviewed and are negative except what is mentioned in HPI. Physical Exam: VITALS:Temp Av ??F (37.2 ??C) Min: 99 ??F (37.2 ??C) Max: 99 ??F (37.2 ??C) BP Min: 121/95 Max: 186/100 Pulse Av.9 Min: 110 Max: 130 Heart Rate (Monitor) Av.9 Min: 112 Max: 134 Resp Av.2 Min: 13 Max: 29 SpO2 Av.4 % Min: 85 % Max: 99 % O2 Flow Rate (l/min): 2 l/min No intake/output data recorded. Weight: Wt Readings from Last 1 Encounters: 01/29/24 280 lb (127 kg) General: Morbidly obese and alert, oriented and in no acute distress. Skin: normal coloration and turgor, no rashes. HEENT: normocephalic, atraumatic. Pupils equal, round and reactive to light. Extraocular movements intact. Oronasopharynx pink and moist, no lesion or exudate, no erythema or discharge in either middle ear, mild tenderness to palpation of external ears bilaterally without signs of lesions or bleeding or discharge, tenderness to palpation on maxillary and frontal sinuses bilaterally Neck: Supple. No JVD, lymphadenopathy thyromegaly or carotid bruits auscultated. CVS: Rapid rate and rhythm. Chest: Moderate coarse breath sounds bilaterally, no focal consolidation. Abdominal: soft, nontender, nondistended. Positive Bowel sounds, no organomegaly appreciated. Extremities: Trace edema lower extremities bilaterally, nontender palpation of thighs or calves, distal pulses 1+ bilaterally full range motion of upper and lower extremities. Neuro: CN 2-12 grossly intact, normal speech, no focal findings or movement disorder noted. Gait not tested.. Data Review: CT ANGIO CHEST W/WO ABDOMEN PELVIS W CONTRAST Result Date: 01/29/2024 IMPRESSION: Suboptimal opacification of the pulmonary arteries. The segmental pulmonary arteries are not well opacified and incompletely evaluated. No central pulmonary embolism. Diffuse bronchial wall thickening can be seen with bronchitis. No acute abnormality in the abdomen or pelvis. Hepatic steatosis. XR CHEST SINGLE VIEW PORTABLE Result Date: 01/29/2024 IMPRESSION: No acute pulmonary process. XR Spine Lumbar Ap Lat Flex Ext min 4 Views Result Date: 01/03/2024 1. Severe L5-S1 spondylosis with grade 2 spondylolytic spondylolisthesis Electronically signed by: Shikha Barnes MD Lab Results Component Value Date WBC 10.38 01/29/2024 HEMOGLOBIN 13.2 01/29/2024 PLATELETCNT 212 01/29/2024 MCV 92.4 01/29/2024 Lab Results Component Value Date SODIUM 138 01/29/2024 POTASSIUM 3.8 01/29/2024 CHLORIDE 97 (L) 01/29/2024 CO2VEN 29 01/29/2024 ANIONGAP 15.8 01/29/2024 GLUCOSE 155 (H) 01/29/2024 BUN 9 (L) 01/29/2024 CREATININE 0.70 01/29/2024 BCRATIO8 13 01/29/2024 TOTALPROTEIN 7.1 01/29/2024 ALBUMIN 4.0 01/29/2024 CALCIUM 10.2 01/29/2024 TBIL 0.9 01/29/2024 SGOTAST 20 01/29/2024 SGPTALT 33 01/29/2024 ALKALINEPHO 84 01/29/2024 GFRNA >60 01/29/2024 GFRA >60 01/29/2024 Lab Results Component Value Date PHARTERIAL 7.37 04/30/2023 PO2ART 66 (L) 04/30/2023 UBV2BQG 59 (H) 04/30/2023 O2ART 89 (L) 04/30/2023 Lab Results Component Value Date CPK 67 10/02/2022 TROPONINI <0.300 02/08/2022 No results found for: AMYL , AMYLASE Lab Results Component Value Date LIPASE 20 07/17/2023 Lab Results Component Value Date CHOLESTEROL 131 02/21/2021 TRIGLYCRIDES 203 (H) 02/21/2021 HDLCHOLESTE 27.6 (L) 02/21/2021 LDL 63 02/21/2021 By: Alicia Romero MD, 01/29/2024, 1:40 PM METEOROLOGIST LIAISON Primary Care Physician: DAJA CARBALLO MD OROLOGIST LIAISON documented in this encounter ED Notes * Hernando Warren RN - 01/29/2024 2:51 PM CST Patient admitted. Patient is being taken up via stretcher by tech intern. No change in condition, all of thge pt's belongings are with the pt. Cardiac stripes printed off and scanned into pt's chart OROLOGIST LIAISON OROLOGIST LIAISON * Bethany Hernandez RN - 01/29/2024 12:18 PM CST Pt requesting to have something to eat. Provider aware and states that pt will need to wait till after her CT scan results. Pt aware and verbalizes understanding. Call light remains within reach. OROLOGIST LIAISON * Hernando Warren RN - 01/29/2024 9:57 AM CST Pt medicated per provider orders. Pt educated on intended effects and side effects of medication and verbalized understanding, able to provide teach back of education. OROLOGIST LIAISON * Hernando Warren RN - 01/29/2024 9:43 AM CST Pt medicated per provider orders. Pt educated on intended effects and side effects of medication and verbalized understanding, able to provide teach back of education. OROLOGIST LIAISON * Felicia Robert RN - 01/29/2024 9:17 AM CST Patient arrives via EMS from home with complaints of increased SOB since Monday. Patient endorsesproductive cough, fever, diarrhea with intermittent nausea, and occasional abdominal pain. Patient was administered 125mg solu- medrol, duo neb treatment, and 4mg oral Zofran via EMS. 18g LAC present. OROLOGIST LIAISON * Sharon Quispe MD - 01/29/2024 9:15 AM CSTAssociated Order(s): EKG 12 LEAD; Critical Care Chief Complaint Patient presents with Shortness of Breath Cough Patient is a 53 y/o female complaining of cough and SOB for last 3 days. She also has a fever. She has some lower abdominal pain and diarrhea. She has not chest pain. She was given Neb and Solumedrolby EMS. Shortness of Breath Associated symptoms: abdominal pain, cough and fever Associated symptoms: no chest pain, no headaches, no neck pain, no rash, no sore throat and no vomiting Cough Associated symptoms: chills, fever and shortness of breath Associated symptoms: no chest pain, no headaches, no rash and no sore throat No current facility-administered medications for this encounter. Current Outpatient Medications Medication Sig Dispense Refill albuterol (PROVENTIL, VENTOLIN) (2.5 MG/3ML) 0.083% Nebulizer Soln 3 mL by Nebulization route every6 hours as needed for Wheezing. 360 mL 0 ALBUTEROL IN take by inhalation. ARIPiprazole extended release (Abilify Maintena) 400 MG Prefilled Syringe 400 mg by Intramuscular route every 28 days. Around the 8th of every month benztropine (COGENTIN) 0.5 MG Tablet Take 0.5 mg by mouth 2 times daily. diphenoxylate-atropine (LOMOTIL) 2.5-0.025 MG/5ML Liquid Take 5 mL by mouth 4 times daily as neededfor Diarrhea. 60 mL 0 DULoxetine (CYMBALTA) [address] Particles Take 60 mg by mouth 2 times daily. folic acid (FOLVITE) 1 MG Tablet Take 1 Tablet by mouth daily. (Patient not taking: Reported on 06/26/2023) 30 Tablet 0 furosemide (LASIX) 20 MG Tablet Take 1 Tablet by mouth daily. (Patient not taking: Reported on 06/26/2023) 14 Tablet 0 gabapentin (NEURONTIN) 300 MG Capsule Take 900 mg by mouth 3 times daily. guaiFENesin (MUCINEX) 600 MG TABLET SR 12 HR Take 1 Tablet by mouth every 12 hours as needed for Cough or Congestion. hydrOXYzine (ATARAX) 50 MG Tablet Take 1 Tablet by mouth every 6 hours as needed for Anxiety (Mild anxiety). 30 Tablet 0 irbesartan (AVAPRO) 150 MG Tablet Take 300 mg by mouth daily. levothyroxine (SYNTHROID) 50 MCG Tablet Take 50 mcg by mouth daily. Indications: Underactive Thyroid metFORMIN (GLUCOPHAGE-XR) 500 MG TABLET SR 24 HR Take 500 mg by mouth 3 times daily. metoprolol Succinate (TOPROL-XL) 25 MG TABLET SR 24 HR Take 25 mg by mouth daily. miconazole 2 % Powder Apply on the groin region. (Patient not taking: Reported on 06/26/2023) 71 g 0 omeprazole (PriLOSEC) 40 MG CAPSULE DELAYED RELEASE Take 1 Capsule by mouth daily. 90 Capsule 0 ondansetron (ZOFRAN-ODT) 4 MG TABLET DISPERSIBLE Take 1 Tablet by mouth every 6 hours as needed forNausea - 1st line (for nausea or vomiting). 10 Tablet 0 rOPINIRole (REQUIP) 0.5 MG Tablet Take 1 Tablet by mouth every 12 hours as needed for Other (For restless legs). (Patient not taking: Reported on 06/26/2023) 90 Tablet 0 senna 8.6 MG Tablet Take 2 Tablets by mouth nightly as needed for Constipation - 1st line. (Patientnot taking: Reported on 06/26/2023) 30 Tablet 0 simvastatin (ZOCOR) 10 MG Tablet Take 10 mg by mouth every evening. traZODone (DESYREL) 50 MG Tablet Take 100 mg by mouth nightly. triamterene-hydrochlorothiazide (DYAZIDE) 37.5-25 MG Capsule Take 1 Capsule by mouth every morning. Allergies Allergen Reactions Geodon [Ziprasidone Hcl] Other (see Comments) Abnormal mouth movements Risperdal [Risperidone] Other (see Comments) Violent and agitated. Topamax [Topiramate] Other (see Comments) Difficulty with speech and word finding. Sulfa Antibiotics Hives Past Medical History Positives Diagnosis Date Adenomatous colon polyp Anxiety Bipolar disorder (HCC) Cocaine abuse (HCC) COPD (chronic obstructive pulmonary disease) (HCC) DDD (degenerative disc disease), lumbar back Depression Diabetes mellitus (HCC) GERD (gastroesophageal reflux disease) HLD (hyperlipidemia) HTN (hypertension) Hypothyroid IBS (irritable bowel syndrome) C/D Morbid obesity ([facility]) NAFLD (nonalcoholic fatty liver disease) Nephrocalcinosis KWABENA (obstructive sleep apnea) does not use cpap SBO (small bowel obstruction) ([facility]) 09/2018 Vitamin D deficiency Past Surgical History: Procedure Laterality Date SECTION 1994 CHOLECYSTECTOMY [address] [facility] (Does not remember the ) COLONOSCOPY N/A 11/16/2018 Procedure: COLONOSCOPY - POLYPS, BIOPSIES; Surgeon: Damian Gallardo DO; Location: [facility]; Service: Gastroenterology EGD 2012? [facility] UPPER GASTROINTESTINAL ENDOSCOPY N/A 02/06/2019 Procedure: EGD, SMALL BOWEL BIOSY, GASTRIC POLYP, SAMANTHA TEST; Surgeon: Damian Gallardo DO; Location: [facility]; Service: Gastroenterology [place] TOOTH EXTRACTION 1991 4 wisdom teeth removed. Social History Socioeconomic History Marital status: Spouse name: Not on file Number of children: Not on file Years of education: Not on file Highest education level: Not on file Occupational History Not on file Tobacco Use Smoking status: Never Smokeless tobacco: Never Vaping Use Vaping status: Never Used Substance and Sexual Activity Alcohol use: No Drug use: Yes Types: Crack cocaine Sexual activity: Yes Partners: Male control/protection: None Other Topics Concern Not on file Social History Narrative Not on file Social Determinants of Health Financial Resource Needs: Patient Declined (05/22/2023) Overall Financial Resource Strain (CARDIA) Difficulty of Paying Living Expenses: Patient declined Food Insecurity Needs: Patient Declined (05/22/2023) Hunger Vital Sign Worried About Running Out of Food in the Last Year: Patient declined Ran Out of Food in the Last Year: Patient declined Transportation Needs: Patient Declined (05/22/2023) PRAPARE - Transportation Lack of Transportation (Medical): Patient declined Lack of Transportation (Non-Medical): Patient declined Physical Activity: Patient Declined (05/22/2023) Exercise Vital Sign Days of Exercise per Week: Patient declined Minutes of Exercise per Session: Patient declined Stress: Patient Declined (05/22/2023) [employer] [place] [employer] - Occupational Stress Questionnaire Feeling of Stress : Patient declined Social Integration: Patient Declined (05/22/2023) Social Connection and Isolation Panel [NHANES] Frequency of Communication with Friends and Family: Patient declined Frequency of Social Gatherings with Friends and Family: Patient declined Attends Je[employer] Services: Patient declined Active Member of Clubs or Organizations: Patient declined Attends Club or Organization Meetings: Patient declined Marital Status: Patient declined Intimate Partner Violence: Patient Declined (05/22/2023) Humiliation, Afraid, Rape, and Kick questionnaire Fear of Current or Ex-Partner: Patient declined Emotionally Abused: Patient declined Physically Abused: Patient declined Sexually Abused: Patient declined Housing Stability: Patient Declined (05/22/2023) Housing Stability Vital Sign Unable to Pay for Housing in the Last Year: Patient declined Number of Places Lived in the Last Year: 1 Unstable Housing in the Last Year: Patient declined BP (!) 175/95 Pulse (!) 122 Temp 99 ??F (37.2 ??C) (Tympanic) Resp 26 Ht 5' 2 (1.575 m) Wt 280 lb (127 kg) LMP 11/12/2019 SpO2 95% BMI 51.21 kg/m?? Review of Systems Constitutional: Positive for chills and fever. HENT: Negative for congestion and sore throat. Eyes: Negative for visual disturbance. Respiratory: Positive for cough and shortness of breath. Cardiovascular: Negative for chest pain and palpitations. Gastrointestinal: Positive for abdominal pain and diarrhea. Negative for nausea and vomiting. Genitourinary: Negative for dysuria, frequency and vaginal bleeding. Musculoskeletal: Negative for back pain and neck pain. Skin: Negative for rash. Neurological: Negative for weakness and headaches. Psychiatric/Behavioral: Negative for hallucinations and suicidal ideas. Physical Exam Constitutional: General: She is not in acute distress. Appearance: She is obese. HENT: Head: Normocephalic and atraumatic. Nose: Nose normal. Eyes: Conjunctiva/sclera: Conjunctivae normal. Cardiovascular: Rate and Rhythm: Regular rhythm. Tachycardia present. Pulmonary: Effort: Pulmonary effort is normal. Breath sounds: Decreased air movement present. Wheezing present. Abdominal: Palpations: Abdomen is soft. Tenderness: There is no abdominal tenderness. Musculoskeletal: General: Normal range of motion. Cervical back: Normal range of motion. Skin: General: Skin is warm and dry. Neurological: General: No focal deficit present. Mental Status: She is alert and oriented to person, place, and time. Psychiatric: Mood and Affect: Mood normal. Sepsis Reassessment of Volume Status and Tissue Perfusion BP 138/64 Pulse (!) 119 Temp 99 ??F (37.2 ??C) (Tympanic) Resp 23 Ht 5' 2 (1.575 m) Wt 280 lb (127 kg) LMP 11/12/2019 SpO2 90% BMI 51.21 kg/m?? Heart: regular rate and rhythm Lungs: normal air entry Peripheral Perfusion: warm, well perfused, brisk capillary refill Recent Labs Units 01/29/24 1217 01/29/24 0921 LACTICA mmol/L 2.5* 2.9* Sepsis re-evaluation was performed. 01/29/2024 at 1:52 PM METEOROLOGIST LIAISON. EKG 12 LEAD Performed by: Sharon Quispe MD Authorized by: Sharon Quispe MD ECG interpreted by ED Physician in the absence of a shine worker: yes Interpretation: Interpretation: non-specific Details: Time 9:07 Rate: ECG rate: 119 ECG rate assessment: normal Rhythm: Rhythm: sinus tachycardia Ectopy: Ectopy: none QRS: QRS axis: Normal ST segments: ST segments: Normal Critical Care Performed by: Sharon Quispe MD Authorized by: Sharon Quispe MD Critical care provider statement: Critical care time (minutes): 35 Critical care time was exclusive of: Separately billable procedures and treating other patients Critical care was necessary to treat or prevent imminent or life-threatening deterioration of the following conditions: Sepsis Critical care was time spent personally by me on the following activities: Development of treatmentplan with patient or surrogate, discussions with consultants, evaluation of patient's response to treatment, examination of patient, ordering and performing treatments and interventions, ordering and review of laboratory studies, ordering and review of radiographic studies, pulse oximetry and re-evaluation of patient's condition Care discussed with: admitting provider Comments: Blood culture and broad spectrum antibiotics Recent Results (from the past 24 hour(s)) CMP (Comprehensive Metabolic Panel) Collection Time: 01/29/24 9:21 AM Result Value Ref Range SODIUM 138 136 - 145 mmol/L POTASSIUM 3.8 3.5 - 5.1 mmol/L CHLORIDE 97 (L) 98 - 107 mmol/L CO2, VENOUS 29 22 - 30 mmol/L ANION GAP 15.8 <18.0 mmol/L GLUCOSE 155 (H) 70 - 99 mg/dL BUN 9 (L) 10 - 20 mg/dL CREATININE, BLOOD 0.70 0.60 - 1.00 mg/dL BUN/CREATININE RATIO 13 12 - 20 ratio TOTAL PROTEIN 7.1 6.3 - 8.2 g/dL ALBUMIN 4.0 3.5 - 5.0 g/dL A/G RATIO 1.3 1.0 - 2.2 CALCIUM 10.2 8.7 - 10.5 mg/dL T BILI 0.9 0.2 - 1.2 mg/dL SGOT (AST) 20 5 - 34 U/L SGPT (ALT) 33 0 - 55 U/L ALKALINE PHOSPHATASE 84 40 - 150 U/L GFR, ESTIMATED >60 >=60 GFR, EST. >60 >=60 GFR, EST. NONAFRICAN >60 >=60 Lactic Acid (Lactate) Collection Time: 01/29/24 9:21 AM Result Value Ref Range LACTIC ACID 2.9 (H) 0.7 - 2.0 mmol/L RSV,SARS-COV-2,INFLUENZA A&B BY PCR Collection Time: 01/29/24 9:21 AM Specimen: Nasopharyngeal; Swab Result Value Ref Range FLU A Negative Negative, Error FLU B Negative Negative RESP SYNC VIRUS Negative Negative SARSCOV2 NOT DETECTED (Reference Range for this test is Not Detected) CBC with Auto Differential Collection Time: 01/29/24 9:21 AM Result Value Ref Range WBC 10.38 4.00 - 12.00 10(3)/mcL RBC 4.32 3.80 - 5.30 10(6)/mcL HEMOGLOBIN (HGB) 13.2 12.0 - 15.8 g/dL HEMATOCRIT (HCT) 39.9 36.0 - 47.0 % MCV 92.4 82.0 - 96.0 fL MCH 30.6 26.0 - 34.0 pg MCHC 33.1 31.0 - 36.0 g/dL PLATELET COUNT 212 140 - 440 10(3)/mcL RDW 13.2 11.8 - 15.5 % MPV 11.4 9.7 - 12.4 fL NEUTROPHILS 75.8 (H) 47.0 - 73.0 % LYMPHOCYTES 13.6 (L) 18.0 - 42.0 % MONOCYTES 6.3 4.0 - 12.0 % EOSINOPHILS 3.9 0.0 - 5.0 % BASOPHILS 0.4 0.0 - 1.0 % ABSOLUTE NEUTROPHILS 7.88 (H) 1.60 - 7.70 10(3)/mcL ABSOLUTE LYMPHOCYTES 1.41 1.30 - 3.20 10(3)/mcL ABSOLUTE MONOCYTES 0.65 0.20 - 1.00 10(3)/mcL ABSOLUTE EOSINOPHIL 0.40 0.00 - 0.40 10(3)/mcL ABSOLUTE BASOPHILS 0.04 0.00 - 0.10 10(3)/mcL NRBC PER 100 WBC 0 Hemoglobin A1C w/ Estimated Glucose Collection Time: 01/29/24 9:21 AM Result Value Ref Range HGB-A1C 7.5 (H) 4.0 - 6.0 % Est Average Glucose 168.6 mg/dL Urinalysis with Reflex Collection Time: 01/29/24 11:34 AM Result Value Ref Range SPECIFIC GRAVITY 1.005 1.003 - 1.030 URINE PH 7.0 5.0 - 9.0 WBC ESTERASE 25 /ul (A) Negative NITRITE Negative Negative PROTEIN, RANDOM URINE Negative Negative URINE GLUCOSE, QUAL Negative Negative URINE KETONES Negative Negative UROBILINOGEN Normal Normal mg/dL URINE BLOOD 150 /uL (A) Negative dylan/ul URINALYSIS COLOR Yellow URINALYSIS CLARITY Slightly Cloudy WBC (Urine) 6-10 (A) Negative, 0-5 /hpf URINE RBC'S 21-50 (A) Negative, 0-2 /hpf EPITHELIAL CELLS Large amount squamous /lpf BACTERIA, URINE Few (A) Negative /hpf Lactic Acid (Lactate) Collection Time: 01/29/24 12:17 PM Result Value Ref Range LACTIC ACID 2.5 (H) 0.7 - 2.0 mmol/L C-Reactive Protein (CRP) Quant Collection Time: 01/29/24 12:17 PM Result Value Ref Range C-REACTIVE PROTEIN 6.96 (H) <0.50 mg/dL Creatine Kinase (CK) Total Collection Time: 01/29/24 12:17 PM Result Value Ref Range CK (CPK) 100 29 - 168 U/L B-Type Natriuretic Peptide (BNP) Collection Time: 01/29/24 1:59 PM Result Value Ref Range B TYPE NATRIURETIC PEPTIDE 43 <100 pg/mL TROPONIN I, HIGH SENSITIVITY (HSTRP) Collection Time: 01/29/24 2:27 PM Result Value Ref Range TROPONIN I, HIGH SENSITIVITY- TREVINO 3 <=14 ng/L GROUP A STREP BY PCR Collection Time: 01/29/24 3:43 PM Specimen: Throat; Swab Result Value Ref Range GROUP A STREP BY PCR NOT DETECTED NOT DETECTED POCT Glucose Collection Time: 01/29/24 3:57 PM Result Value Ref Range GLUCOSE,BEDSIDE POCT 307 (H) 70 - 99 mg/dL Imaging Results CT ANGIO CHEST W/WO ABDOMEN PELVIS W CONTRAST (Final result) Result time 01/29/24 12:58:[address] ANGIO CHEST W/WO CONTRAST WITH PP (POST PROCESSING) Final result by Chuck Painter MD (01/29/24 12:58:42) Impression: IMPRESSION: Suboptimal opacification of the pulmonary arteries. The segmental pulmonary arteries are not well opacified and incompletely evaluated. No central pulmonary embolism. Diffuse bronchial wall thickening can be seen with bronchitis. No acute abnormality in the abdomen or pelvis. Hepatic steatosis. Narrative: EXAM DESCRIPTION: CT ANGIO CHEST W/WO ABDOMEN [...] Chuck Painter M.D. LB: [facility]AL[facility] Report ID: [id number] Reading Location: [id number] CT ANGIO CHEST W/WO CONTRAST WITH PP (POST PROCESSING) (Canceled) CT ABDOMEN PELVIS W/ CONTRAST (Canceled) XR CHEST SINGLE VIEW PORTABLE (Final result) Result time 01/29/24 10:57:16 Final result by Flynn Carrasco MD (01/29/24 10:57:16) Impression: IMPRESSION: No acute pulmonary process. Narrative: EXAM DESCRIPTION: XR CHEST SINGLE VIEW PORTABLE [...] Flynn Carrasco M.D. MM: MM Report ID: [id number] Reading Location: [place] [address] Medical Decision Making Problems Addressed: COPD exacerbation (HCC): chronic illness or injury with exacerbation, progression, or side effects of treatment Sepsis (HCC): acute illness or injury Amount and/or Complexity of Data Reviewed Labs: ordered. Radiology: ordered. ECG/medicine tests: ordered. Risk Prescription drug management. Decision regarding hospitalization. Critical Care Total time providing critical care: 35 minutes 1:[address] Romero, who agrees to admit. Clinical Impression 1. COPD exacerbation (HCC) 2. Sepsis (HCC) Disposition: Admit OROLOGIST LIAISON * Wendy Mobley - 01/29/2024 9:04 AM CST Bed: [place] [address] Expected date: 01/29/24 Expected time: 8:58 AM Means of arrival: Ambulance ([facility]) Comments: 4A72 [facility] 53F SOB X 1 DAY COUGH OROLOGIST LIAISON documented in this encounter Miscellaneous Notes * Interdisciplinary - Savanna Siu RN - 02/01/2024 12:52 PM CST Pt left per wheelchair to private car with staff. OROLOGIST LIAISON * Interdisciplinary - Marina Vázquez RN - 02/01/2024 11:08 AM CST Discharge instructions explained to patient. Specifically highlighted on COPD diagnosis. Education provided on activity, pursed lip breathing, and medications. Medication tool provided with patients home medications and new medications prescribed. Patient informed of what they are taking the medication for and possible side effects. Patient verbalized understanding. Patient given a folder with Discharge Navigator's phone number for any questions or concerns about discharge instructions. OROLOGIST LIAISON * [facility] Patient Instructions - Marina Vázquez RN - 02/01/2024 10:47 AM CST Images from the original note were not included. Patient Education Table of Contents Chronic Obstructive Pulmonary Disease Exacerbation To view videos and all your education online visit, [email or web address] or scan this QR code with your smartphone. Access to this content will in one year. Chronic Obstructive Pulmonary Disease Exacerbation Chronic obstructive pulmonary disease (COPD) is a long-term (chronic) lung problem. When you have COPD, it can feel harder to breathe in or out. COPD exacerbation is a flare-up of symptoms when breathing gets worse and more treatment may be needed. Without treatment, flare-ups can be life-threatening. If they happen often, your lungs can become more damaged. What are the causes? Not taking your usual COPD medicines as told by your health care provider. A cold or the flu, which can cause infection in your lungs. Being exposed to things that make your breathing worse, such as: ? Smoke. ? Air pollution. ? Fumes. ? Dust. ? Allergies. ? Weather changes. What are the signs or symptoms? Symptoms do not get better or get worse even if you take your medicines as told by your provider. Symptoms may include: More shortness of breath. You may only be able to speak one or two words at a time. More coughing or mucus from your lungs. More wheezing or chest tightness. Being more tired and having less energy. Confusion. How is this diagnosed? This condition is diagnosed based on: Symptoms that get worse. Your medical history. A physical exam. You may also have tests, including: A chest X-ray. Blood or mucus tests. How is this treated? You may be able to stay home or you may need to go to the hospital. Treatment may include: Taking medicines. These may include: ? Inhalers. These have medicines in them that you breathe in. These may be more of what you alreadytake or they may be new. ? Steroids. These reduce inflammation in the airways. These may be inhaled, taken by mouth, or given in an IV. ? Antibiotics. These treat infection. Using oxygen. Using a device to help you clear mucus. Follow these instructions at home: Medicines Take your medicines only as told by your provider. If you were given antibiotics or steroids, take them as told by your provider. Do not stop taking them even if you start to feel better. Lifestyle Several times a day, wash your hands with soap and water for at least 20 seconds. ? If you cannot use soap and water, use hand director of residence life. ? This may help keep you from getting an infection. Avoid being around crowds or people who are sick. Do not smoke or use any products that contain nicotine or tobacco. If you need help quitting, ask your provider. Return to your normal activities when your provider says that it's safe. Use breathing methods to control your stress and catch your breath. How is this prevented? Follow your COPD action plan. The action plan tells you what to do if you're feeling good and what to do when you start feeling worse. Discuss the plan often with your provider. Make sure you get all the shots, also called vaccines, that your provider recommends. Ask your provider about a flu shot and a pneumonia shot. Use oxygen therapy if told by your provider. If you need home oxygen therapy, ask your provider howoften to check your oxygen level with a device called an oximeter. Keep all follow-up visits to review your COPD action plan. Your provider will want to check on yourcondition often to keep you healthy and out of the hospital. Contact a health care provider if: Your COPD symptoms get worse. You have a fever or chills. You have trouble doing daily activities. You have trouble breathing even when you are resting. Get help right away if: You are short of breath and cannot: ? Talk in full sentences. ? Do normal activities. You have chest pain. You feel confused. These symptoms may be an emergency. Call 911 right away. Do not wait to see if the symptoms will go away. Do not drive yourself to the hospital. This information is not intended to replace advice given to you by your health care provider. Make sure you discuss any questions you have with your health care provider. Document Released: 2007-12-11 Document Updated: 2023-11-16 Document Reviewed: 2023-05-01 [employer] Patient Education ? 2023 [employer] OROLOGIST LIAISON * Bethany Johnston - 02/01/2024 10:44 AM CST Case Management Discharge Readiness Note Alona's readmission risk level (if calculated) is: 2-Medium Low Patient Class: Inpatient Consecutive Inpatient Midnights 3 Actual day(s) of hospital stay (compare to working DRG): 3 Discharge: Final home discharge arrangements: home with no services Mode of transportation at discharge:: Family car Additional Information regarding DC Plan: Patient is returning home without any discharge needs Discharge Plan Notification/ Verification Patient's Phone numbers: [phone] (home) Patient's preferred discharge phone number for follow up appointments, etc: (if different from above): N/A Information for bedside nurse to call report and fax PACT Document in Sticky Note?: Not applicable - no external home care agencies or hemodialysis Nursing notified: YES Savanna SHEEHAN and Marina RN via Circular Decision Maker / Caregiver Information Decision Maker: Patient is assumed to be the medical decision maker [employer]/Technical Healthcare Consultant Name: Lyla Kemp Patient/ Decision Maker and family notified: [place] Family/ Caregiver's readiness, willingness and ability to support patient with anticipated community discharge plan: Did not speak with family/caregiver during this contact. IM Letter Documentation, if applicable N/A - Payor is not Medicare OROLOGIST LIAISON * Plan of Care - Savanna Siu RN - 02/01/2024 10:21 AM CST Problem: Adult Inpatient Plan of Care Goal: Plan of Care Review Outcome: Outcome Achieved Goal: Optimal Comfort and Wellbeing Outcome: Outcome Achieved Goal: Readiness for Transition of Care Outcome: Outcome Achieved Problem: Fall Injury Risk Goal: Absence of Fall and Fall-Related Injury Outcome: Outcome Achieved Problem: Comorbidity Management Goal: Maintenance of COPD Symptom Control Outcome: Outcome Achieved Goal: Blood Glucose Levels Within Targeted Range Outcome: Outcome Achieved Goal: Blood Pressure in Desired Range Outcome: Outcome Achieved Problem: Pain Acute Goal: Optimal Pain Control and Function Outcome: Outcome Achieved OROLOGIST LIAISON * Interdisciplinary - Sujata Crenshaw RRT - 02/01/2024 8:33 AM CST Respiratory Therapy Assessment And Education Points 0 1 2 3 4 Score Pulmonary History No Smoking Smokes <1 ppd Smokes 1 ppd or more Pulmonary impairment (acute or chronic) Severe or Chronic exacerbation 3 Surgical Status None General Surgery Lower Abdominal Surgery Thoracic or Upper Abdominal Surgery Thoracic with Pulmonary Disease 0 CXR (from last 24 hrs) Clear Unavailable Infiltrates, Atelectasis or Pleural effusion Infiltrates in more than 1 lobe Infiltrates plus Atelectasis or Pleural effusion 1 Respirations Regular Pattern, RR 8-20 Increased, RR 21-25 Dyspnea on exertion, irregular pattern, RR 26-30 Use of accessory muscles, prolonged expiration, RR 31-35 Severe SOB with use of accessory muscles, RR >35 0 BS Clear Diminished Unilaterally Diminished Bilaterally Crackles in Bases Wheezing and/or Rhonchi 4 Cough Strong, Non- productive cough Strong, productive cough Weak, Non- productive cough Weak, productive cough No cough, may require suctioning 0 Mental status Alert and oriented Lethargic, follows commands Confused, does not follow commands Obtunded Comatose 0 Level of Activity Ambulatory Ambulatory with assistance Temporarily non-Ambulatory Bed rest, able to position self Bed rest, unable to position self 0 O2 required to keep SpO2 >=92% (or ordered goal) None 1-3 L/M or FiO2 25-35% 4-6 L/M or FiO2 35-50% >50% 100% 0 Total Score 8 Treatment Scoring Guide Frequency Utilize ORDER SET for all changes Severity Level 5 > 20 points Q2 and Q4 Albuterol Q2 and Ipratropium Q4 *Discontinue previous orders* Severity Level 4 16-20 points Q4 and PRN Duoneb Q4 and Albuterol Q2 PRN *Discontinue previous orders* Severity Level 3 11-15 points QID and PRN Duoneb QID and Albuterol Q4 PRN *Discontinue previous orders* Severity Level 2 6-10 points TID and Q6 PRN Albuterol only *Discontinue previous orders* Severity Level 1 0-5 points Q6 PRN Albuterol only *Discontinue previous orders* Home Regimen Home medication orders As per reconciled home medications Patient RTA Severity Level Is: 2 Patient Progression Since Admission: not changed Treatment Plan Adjusted: Yes Education Documented (within Education Tab): Yes Education Provided To: patient Comments: By: SUJATA CRENSHAW RRT; 02/01/2024, 8:33 AM METEOROLOGIST LIAISON OROLOGIST LIAISON * Interdisciplinary - Savanna Siu RN - 02/01/2024 7:10 AM CST Patient is awake and eating breakfast. Fall precautions in place OROLOGIST LIAISON * Plan of Care - Ryan Hernandez RN - 02/01/2024 5:34 AM CST Problem: Adult Inpatient Plan of Care Goal: Plan of Care Review Outcome: Ongoing (see interventions/notes) Flowsheets (Taken 02/01/2024 3328) Plan of Care Reviewed With: patient Progress: progress toward functional goals is gradual Today's Goal: decrease cough Outcome Evaluation: Patient rested well through most of the night with little coughing noted until this morning at which time she was given Mucinex and a breathing treatment. she continues to have some wheezing. Does the patient need assistance with discharge and/or transitioning to the next level of care?: Yes, case management already following Goal: Optimal Comfort and Wellbeing Outcome: Ongoing (see interventions/notes) Intervention: Monitor Pain and Promote Comfort Flowsheets (Taken 02/01/2024528) Pain Management Interventions: care clustered quiet environment facilitated position adjusted Intervention: Provide Person-Centered Care Flowsheets (Taken 02/01/2024528) Trust Relationship/Rapport: care explained choices provided therapeutic presence provided thoughts/feelings acknowledged safe/supportive environment facilitated Goal: Readiness for Transition of Care Outcome: Ongoing (see interventions/notes) Problem: Fall Injury Risk Goal: Absence of Fall and Fall-Related Injury Outcome: Ongoing (see interventions/notes) Intervention: Identify and Manage Contributors Flowsheets (Taken 02/01/2024528) Medication Review/Management: medications reviewed Self-Care Promotion: independence encouraged BADL personal objects within reach Intervention: Promote Injury-Free Environment Flowsheets (Taken 01/31/20242023) Safety Promotion/Fall Prevention: nonskid shoes/slippers when out of bed bed alarm chair alarm commode/urinal/bedpan at bedside lighting adjusted for task/safety low bed fall reduction program maintained Problem: Comorbidity Management Goal: Maintenance of COPD Symptom Control Outcome: Ongoing (see interventions/notes) Intervention: Maintain COPD Symptom Control Flowsheets (Taken 02/01/2024528) Supportive Measures: self-care encouraged Medication Review/Management: medications reviewed Note: Cough, turn, deep breath Goal: Blood Glucose Levels Within Targeted Range Outcome: Ongoing (see interventions/notes) Intervention: Monitor and Manage Glycemia Flowsheets (Taken 02/01/2024528) Glycemic Management: blood glucose monitored Medication Review/Management: medications reviewed Goal: Blood Pressure in Desired Range Outcome: Ongoing (see interventions/notes) Intervention: Maintain Blood Pressure Management Flowsheets (Taken 02/01/2024528) Medication Review/Management: medications reviewed Problem: Pain Acute Goal: Optimal Pain Control and Function Outcome: Ongoing (see interventions/notes) OROLOGIST LIAISON * Aleida - Palak Lagos - 01/31/2024 3:30 PM CST Case Management Patient / Patient Violin Repairer Contact Note Alona's readmission risk level (if calculated) is: 2-Medium Low Patient Class: Inpatient Consecutive Inpatient Midnights 2 Actual day(s) of hospital stay (compare to working DRG):2 New Consult for Case Management? No Summary: Decision Maker: Patient is assumed to be the medical decision maker [employer]/Technical Healthcare Consultant Name: Lyla Kemp Patient to discharge home with no needs via car Plan of Care:(Problem/ situation/ barrier + goals/ milestones + interventions + evaluation of progress = Plan of Care) Alona's primary medical problem this hospitalization is COPD exacerbation (HCC). Hospital Plan:pulmonology paramjit avila Anticipated Discharge Plan: Home Family/ Caregiver's readiness, willingness and ability to support patient with anticipated community discharge plan: Did not speak with family/caregiver during this contact. IM Letter Documentation, if applicable N/A - Payor is not Medicare No new referrals or updates for post-acute hospital services. OROLOGIST LIAISON * Plan of Care - Savanna Siu RN - 01/31/2024 12:56 PM CST Problem: Adult Inpatient Plan of Care Goal: Plan of Care Review Outcome: Ongoing (see interventions/notes) Flowsheets Taken 01/31/2024 1255 by SAVANNA Kraft Goal: decrease cough Outcome Evaluation: Pt is getting breathing treatments and IV jaguar medrol Prn medications given for pain. Taken 01/30/2024 1806 by TANJA Plan of Care Reviewed With: patient Progress: progress towards functional goals is fair Does the patient need assistance with discharge and/or transitioning to the next level of care?: Yes, case management already following Goal: Optimal Comfort and Wellbeing Outcome: Ongoing (see interventions/notes) Goal: Readiness for Transition of Care Outcome: Ongoing (see interventions/notes) Problem: Fall Injury Risk Goal: Absence of Fall and Fall-Related Injury Outcome: Ongoing (see interventions/notes) Problem: Comorbidity Management Goal: Maintenance of COPD Symptom Control Outcome: Ongoing (see interventions/notes) Goal: Blood Glucose Levels Within Targeted Range Outcome: Ongoing (see interventions/notes) Goal: Blood Pressure in Desired Range Outcome: Ongoing (see interventions/notes) Problem: Pain Acute Goal: Optimal Pain Control and Function Outcome: Ongoing (see interventions/notes) OROLOGIST LIAISON * Interdisciplinary - Molly Clarke RRT - 01/31/2024 7:56 AM CST Respiratory Therapy Assessment And Education Points 0 1 2 3 4 Score Pulmonary History No Smoking Smokes <1 ppd Smokes 1 ppd or more Pulmonary impairment (acute or chronic) Severe or Chronic exacerbation 3 Surgical Status None General Surgery Lower Abdominal Surgery Thoracic or Upper Abdominal Surgery Thoracic with Pulmonary Disease 0 CXR (from last 24 hrs) Clear Unavailable Infiltrates, Atelectasis or Pleural effusion Infiltrates in more than 1 lobe Infiltrates plus Atelectasis or Pleural effusion 1 Respirations Regular Pattern, RR 8-20 Increased, RR 21-25 Dyspnea on exertion, irregular pattern, RR 26-30 Use of accessory muscles, prolonged expiration, RR 31-35 Severe SOB with use of accessory muscles, RR >35 0 BS Clear Diminished Unilaterally Diminished Bilaterally Crackles in Bases Wheezing and/or Rhonchi 1 Cough Strong, Non- productive cough Strong, productive cough Weak, Non- productive cough Weak, productive cough No cough, may require suctioning 0 Mental status Alert and oriented Lethargic, follows commands Confused, does not follow commands Obtunded Comatose 0 Level of Activity Ambulatory Ambulatory with assistance Temporarily non-Ambulatory Bed rest, able to position self Bed rest, unable to position self 0 O2 required to keep SpO2 >=92% (or ordered goal) None 1-3 L/M or FiO2 25-35% 4-6 L/M or FiO2 35-50% >50% 100% 0 Total Score 5 Treatment Scoring Guide Frequency Utilize ORDER SET for all changes Severity Level 5 > 20 points Q2 and Q4 Albuterol Q2 and Ipratropium Q4 *Discontinue previous orders* Severity Level 4 16-20 points Q4 and PRN Duoneb Q4 and Albuterol Q2 PRN *Discontinue previous orders* Severity Level 3 11-15 points QID and PRN Duoneb QID and Albuterol Q4 PRN *Discontinue previous orders* Severity Level 2 6-10 points TID and Q6 PRN Albuterol only *Discontinue previous orders* Severity Level 1 0-5 points Q6 PRN Albuterol only *Discontinue previous orders* Home Regimen Home medication orders As per reconciled home medications Patient RTA Severity Level Is: 1 Patient Progression Since Admission: improved Treatment Plan Adjusted: Yes Education Documented (within Education Tab): Yes Education Provided To: patient Comments: na By: MOLLY CLARKE RRT; 01/31/2024, 7:56 AM METEOROLOGIST LIAISON OROLOGIST LIAISON * Interdisciplinary - Savanna Siu RN - 01/31/2024 7:29 AM CST Pt is awake and able to answer all questions. Fall precautions in place. OROLOGIST LIAISON * Plan of Care - Tanja Miller RN - 01/30/2024 6:12 PM CST Problem: Adult Inpatient Plan of Care Goal: Plan of Care Review Outcome: Ongoing (see interventions/notes) Flowsheets (Taken 01/30/20241805) Plan of Care Reviewed With: patient Progress: progress towards functional goals is fair Today's Goal: FSBS <200 Outcome Evaluation: Pt on Solumedrol. FSBS remains elevated. Received scheduled and Sliding scaled insulin for glucose control. 7am: 323 11am:308 5pm:287 Does the patient need assistance with discharge and/or transitioning to the next level of care?: Yes, case management already following Goal: Optimal Comfort and Wellbeing Outcome: Ongoing (see interventions/notes) Intervention: Monitor Pain and Promote Comfort Flowsheets (Taken 01/30/20241807) Pain Management Interventions: care clustered pain management plan reviewed with patient/caregiver pillow support provided pain medication given Intervention: Provide Person-Centered Care Flowsheets (Taken 01/30/2024 3757) Trust Relationship/Rapport: care explained choices provided questions answered questions encouraged reassurance provided thoughts/feelings acknowledged safe/supportive environment facilitated Goal: Readiness for Transition of Care Outcome: Ongoing (see interventions/notes) Problem: Fall Injury Risk Goal: Absence of Fall and Fall-Related Injury Outcome: Ongoing (see interventions/notes) Intervention: Identify and Manage Contributors Flowsheets Taken 01/30/20241807 Self-Care Promotion: independence encouraged BADL personal objects within reach BADL personal routines maintained meal set-up provided Taken 01/30/2024955 Medication Review/Management: medications reviewed Intervention: Promote Injury-Free Environment Flowsheets (Taken 01/30/2024955) Safety Promotion/Fall Prevention: bed alarm chair alarm nonskid shoes/slippers when out of bed fall reduction program maintained environmental modification lighting adjusted for task/safety Problem: Comorbidity Management Goal: Maintenance of COPD Symptom Control Outcome: Ongoing (see interventions/notes) Intervention: Maintain COPD Symptom Control Flowsheets Taken 01/30/20241807 Supportive Measures: active listening utilized decision-making supported goal-setting facilitated self-care encouraged verbalization of feelings encouraged Taken 01/30/2024955 Medication Review/Management: medications reviewed Goal: Blood Glucose Levels Within Targeted Range Outcome: Ongoing (see interventions/notes) Intervention: Monitor and Manage Glycemia Flowsheets Taken 01/30/20241807 Glycemic Management: blood glucose monitored supplemental insulin given Taken 01/30/2024955 Medication Review/Management: medications reviewed Goal: Blood Pressure in Desired Range Outcome: Ongoing (see interventions/notes) Intervention: Maintain Blood Pressure Management Flowsheets (Taken 01/30/2024955) Medication Review/Management: medications reviewed Problem: Pain Acute Goal: Optimal Pain Control and Function Outcome: Ongoing (see interventions/notes) Intervention: Develop Pain Management Plan Flowsheets (Taken 01/30/20241807) Pain Management Interventions: care clustered pain management plan reviewed with patient/caregiver pillow support provided pain medication given Intervention: Prevent or Manage Pain Flowsheets (Taken 01/30/2024955) Medication Review/Management: medications reviewed Intervention: Optimize Psychosocial Wellbeing Flowsheets Taken 01/30/20241807 Supportive Measures: active listening utilized decision-making supported goal-setting facilitated self-care encouraged verbalization of feelings encouraged Taken 01/30/2024955 Diversional Activities: television OROLOGIST LIAISON * Plan of Valerio - Bethany Licona - 01/30/2024 2:45 PM CST Case Management Comprehensive Assessment Alona's readmission risk level (if calculated) is: 2-Medium Low Patient Class: Inpatient Consecutive Inpatient Midnights 1 Actual day(s) of hospital stay (compare to working DRG): 1 Reason for [facility]: discharge planning Alona is in the hospital due to: COPD exacerbation, sepsis Prior to Admission (Support, Living Environment,ADLs IADLs, Transportation, Employment, Access to Care) CM spoke with patient by phone due to covering virtually. The patient lives in a one story home with a ramp to enter the home. The patient's mom assists her with ADL's and IADL's as needed. The patient has a nebulizer machine and cpap at home supplied by [facility]. She uses a cane, bath bench and grad bars. She uses [facility] in [place] to obtain her medications. She has no faced any financial barriers to obtain her medications. The patient has family that provides transportation and her insurance compnay provides transportation. The patient is established with Daja Carballo as PCP.She has [place] [employer] for insurance. She has a HCPOA on file listing Lyla as PCP. Patient is current with the following medical equipment company for their respiratory equipment: [facility] CPAP, nebulizer Home Oxygen/Respiratory Equipment Settings: cpap settings done by provider, nebulizer as needed Alona is not a 30 day re-hospitalization. Plan of Care (Problem/ situation/ barrier + goals/ milestones + interventions + evaluation of progress = Plan of Care) Hospital Plan:IV fluids, IV rocephin, lab(BMP, CBC), EXG 12 lead, respiratory,maintain IV site Anticipated Discharge Plan: Home 01/30/24 Patient/ patient entry level account representative's preferences regarding the discharge plan: Home with out services Family/ Caregiver's readiness, willingness and ability to support patient with anticipated community discharge plan: Did not speak with family/caregiver during this contact. SUMMARY (summary of interaction with patient/decision maker, family and interdisciplinary team) Decision Maker: Patient is assumed to be the medical decision maker [employer]/Technical Healthcare Consultant Name: Lyla Kemp By phone, spoke with Alona and introduced self and role and discussed plan of care. CM spoke with the patient regarding the plans for discharge. She plans to return home with out services. CM will continue to follow the patient while she is in the hospital. IM Letter Documentation, if applicable N/A - Medicare but Observation, Residential Inpatient, Emergency, or Ambulatory Surgery patientclass No new referrals or updates for post-acute hospital services. OROLOGIST LIAISON OROLOGIST LIAISON * lAeida - Tanja Miller RN - 01/30/2024 9:30 AM CST A/O. Resp unlabored. RA. SL patent. See flow sheet for complete assessment. Up in chair at bedside for breakfast. Alarms armed, call light in reach. Rounding continues. OROLOGIST LIAISON * Aleida - Leticia Brasher RT - 01/30/2024 7:57 AM METEOROLOGIST LIAISON Respiratory Therapy Assessment And Education Points 0 1 2 3 4 Score Pulmonary History No Smoking Smokes <1 ppd Smokes 1 ppd or more Pulmonary impairment (acute or chronic) Severe or Chronic exacerbation 3 Surgical Status None General Surgery Lower Abdominal Surgery Thoracic or Upper Abdominal Surgery Thoracic with Pulmonary Disease 0 CXR (from last 24 hrs) Clear Unavailable Infiltrates, Atelectasis or Pleural effusion Infiltrates in more than 1 lobe Infiltrates plus Atelectasis or Pleural effusion 0 Respirations Regular Pattern, RR 8-20 Increased, RR 21-25 Dyspnea on exertion, irregular pattern, RR 26-30 Use of accessory muscles, prolonged expiration, RR 31-35 Severe SOB with use of accessory muscles, RR >35 0 BS Clear Diminished Unilaterally Diminished Bilaterally Crackles in Bases Wheezing and/or Rhonchi 4 Cough Strong, Non- productive cough Strong, productive cough Weak, Non- productive cough Weak, productive cough No cough, may require suctioning 0 Mental status Alert and oriented Lethargic, follows commands Confused, does not follow commands Obtunded Comatose 0 Level of Activity Ambulatory Ambulatory with assistance Temporarily non-Ambulatory Bed rest, able to position self Bed rest, unable to position self 1 O2 required to keep SpO2 >=92% (or ordered goal) None 1-3 L/M or FiO2 25-35% 4-6 L/M or FiO2 35-50% >50% 100% 0 Total Score 8 Treatment Scoring Guide Frequency Utilize ORDER SET for all changes Severity Level 5 > 20 points Q2 and Q4 Albuterol Q2 and Ipratropium Q4 *Discontinue previous orders* Severity Level 4 16-20 points Q4 and PRN Duoneb Q4 and Albuterol Q2 PRN *Discontinue previous orders* Severity Level 3 11-15 points QID and PRN Duoneb QID and Albuterol Q4 PRN *Discontinue previous orders* Severity Level 2 6-10 points TID and Q6 PRN Albuterol only *Discontinue previous orders* Severity Level 1 0-5 points Q6 PRN Albuterol only *Discontinue previous orders* Home Regimen Home medication orders As per reconciled home medications Patient RTA Severity Level Is: Level 2 Patient Progression Since Admission: not changed Treatment Plan Adjusted: No: Education Documented (within Education Tab): Yes Education Provided To: patient Comments: By: LETICIA BRASHER, RT; 01/30/2024, 7:57 AM METEOROLOGIST LIAISON OROLOGIST LIAISON * Interdisciplinary - Sharri Zapata, ANSWERING SERVICE AGENT - 01/29/2024 11:57 PM METEOROLOGIST LIAISON Respiratory Therapy Assessment And Education Points 0 1 2 3 4 Score Pulmonary History No Smoking Smokes <1 ppd Smokes 1 ppd or more Pulmonary impairment (acute or chronic) Severe or Chronic exacerbation 3 Surgical Status None General Surgery Lower Abdominal Surgery Thoracic or Upper Abdominal Surgery Thoracic with Pulmonary Disease 0 CXR (from last 24 hrs) Clear Unavailable Infiltrates, Atelectasis or Pleural effusion Infiltrates in more than 1 lobe Infiltrates plus Atelectasis or Pleural effusion 0 Respirations Regular Pattern, RR 8-20 Increased, RR 21-25 Dyspnea on exertion, irregular pattern, RR 26-30 Use of accessory muscles, prolonged expiration, RR 31-35 Severe SOB with use of accessory muscles, RR >35 0 BS Clear Diminished Unilaterally Diminished Bilaterally Crackles in Bases Wheezing and/or Rhonchi 4 Cough Strong, Non- productive cough Strong, productive cough Weak, Non- productive cough Weak, productive cough No cough, may require suctioning 0 Mental status Alert and oriented Lethargic, follows commands Confused, does not follow commands Obtunded Comatose 0 Level of Activity Ambulatory Ambulatory with assistance Temporarily non-Ambulatory Bed rest, able to position self Bed rest, unable to position self 0 O2 required to keep SpO2 >=92% (or ordered goal) None 1-3 L/M or FiO2 25-35% 4-6 L/M or FiO2 35-50% >50% 100% 0 Total Score 7 Treatment Scoring Guide Frequency Utilize ORDER SET for all changes Severity Level 5 > 20 points Q2 and Q4 Albuterol Q2 and Ipratropium Q4 *Discontinue previous orders* Severity Level 4 16-20 points Q4 and PRN Duoneb Q4 and Albuterol Q2 PRN *Discontinue previous orders* Severity Level 3 11-15 points QID and PRN Duoneb QID and Albuterol Q4 PRN *Discontinue previous orders* Severity Level 2 6-10 points TID and Q6 PRN Albuterol only *Discontinue previous orders* Severity Level 1 0-5 points Q6 PRN Albuterol only *Discontinue previous orders* Home Regimen Home medication orders As per reconciled home medications Patient RTA Severity Level Is: Level 2 Patient Progression Since Admission: New Pt Treatment Plan Adjusted: Yes Education Documented (within Education Tab): Yes Education Provided To: patient Comments: Respiratory Protocols Initiated By: SHARRI ZAPATA CRT; 01/29/2024, 11:57 PM METEOROLOGIST LIAISON OROLOGIST LIAISON * Interdisciplinary - Krystal Rice RN - 01/29/2024 7:00 PM CST Report received from Tanja SHEEHAN. OROLOGIST LIAISON * Interdisciplinary - Tanja Miller RN - 01/29/2024 6:[address] Romero paged to request something to help pt sleep and something to help with diarrhea, awaiting call back. OROLOGIST LIAISON * Aleida - Tanja Miller RN - 01/29/2024 4:50 PM CST Admitted pt to 233. A/O. 02. IVF infusing as ordered without diff. See flow sheet for complete assessment. Up at heriberto. Sitting at side of bed for supper tray. Orders for meds pending. Encouraged to call for assist. Rounding continues. OROLOGIST LIAISON * Interdisciplinary - Andria Arroyo RN - 01/29/2024 3:28 PM CST Initial Skin Assessment Patient assessed with 2nd RN Tanja Wounds noted: excoriation under right breast PRESSURE INJURY AND MOISTURE MANAGEMENT RECOMMENDATIONS: Moisture Management: Patient is Continent and has no moisture problems at this time Pressure Injury Prevention Interventions: Patient is independent in Room and/or Bed Specialty Surface Selection: Moisture Score: 4-->rarely moist Mobility Score: 4-->no limitation Total Blas Score: 22 Patient has intact skin on the pelvis and trunk: Bed Selection based on Blas Moisture and Mobility: Moisture 4: Mobility 3 or 4: No Specialty Bed Indicated Wound care: N/A ANDRIA ARROYO RN OROLOGIST LIAISON * Aleida - Michell Monique RN - 01/29/2024 12:43 PM METEOROLOGIST LIAISON OnCall Sepsis Note Sepsis BPA alert received. Chart Reviewed, no action needed due to: All bundle components met at this time OROLOGIST LIAISON * Aleida - Michell Monique RN - 01/29/2024 10:02 AM METEOROLOGIST LIAISON OnCall Sepsis Note Sepsis BPA alert received. Chart Reviewed, no action needed due to: All bundle components met at this time OROLOGIST LIAISON documented in this encounter Plan of Treatment Upcoming Encounters Date Type Department Care Team (Late st Contact Info) Description 03/27/2024 8:30 AM METEOROLOGIST LIAISON Hospital [facility] [address] [place] [address] Burt Eastman MD [address] [address] 03/27/2024 8:30 AM METEOROLOGIST LIAISON - 03/27/2024 9:00 AM METEOROLOGIST LIAISON [facility] [address] [place] [address] Burt Eastman MD [address] [address] COLONOSCOPY 04/09/2024 1:15 PM METEOROLOGIST LIAISON Office Visit [facility] - Pulmonology & Sleep Medicine [facility] [address] [place] [address] Baron Vergara MD [address] [place] [address] Scheduled Orders Name Type Priority Associated Diagnoses Orde r Schedule EKG 12 LEAD ECG Stat with Interpretation One Time for 1 Occurrences starting 01/29/2024 until 01/29/2024 Scheduled Procedures Name Priority Associated Diagnoses Date/Ti me COLONOSCOPY HISTORY OF COLON POLYPS 03/27/2024 8:30 AM METEOROLOGIST LIAISON documented as of this encounter Procedures Procedure Name Priority Date/Time Associated Diagnosis Comments POCT GLUCOSE Routine 02/01/2024 11:13 AM METEOROLOGIST LIAISON POCT GLUCOSE Routine 02/01/2024 7:09 AM METEOROLOGIST LIAISON CBC WITH AUTO DIFFERENTIAL Routine 02/01/2024 4:44 AM METEOROLOGIST LIAISON COMPLETE BLOOD COUNT (CBC) WITH DIFF Routine 02/01/2024 4:44 AM METEOROLOGIST LIAISON BASIC METABOLIC PANEL W/ CALCIUM TOTAL Routine 02/01/2024 4:44 AM METEOROLOGIST LIAISON POCT GLUCOSE Routine 01/31/2024 7:41 PM METEOROLOGIST LIAISON POCT GLUCOSE Routine 01/31/2024 5:01 PM METEOROLOGIST LIAISON POCT GLUCOSE Routine 01/31/2024 11:03 AM METEOROLOGIST LIAISON POCT GLUCOSE Routine 01/31/2024 7:35 AM METEOROLOGIST LIAISON CBC WITH AUTO DIFFERENTIAL Routine 01/31/2024 5:31 AM METEOROLOGIST LIAISON COMPLETE BLOOD COUNT (CBC) WITH DIFF Routine 01/31/2024 5:31 AM METEOROLOGIST LIAISON BASIC METABOLIC PANEL W/ CALCIUM TOTAL Routine 01/31/2024 5:31 AM METEOROLOGIST LIAISON POCT GLUCOSE Routine 01/30/2024 7:15 PM METEOROLOGIST LIAISON POCT GLUCOSE Routine 01/30/2024 5:26 PM METEOROLOGIST LIAISON POCT GLUCOSE Routine 01/30/2024 11:18 AM METEOROLOGIST LIAISON POCT GLUCOSE Routine 01/30/2024 8:12 AM METEOROLOGIST LIAISON TROPONIN I, HIGH SENSITIVITY (HSTRP) STAT 01/30/2024 5:49 AM METEOROLOGIST LIAISON CBC WITH AUTO DIFFERENTIAL Routine 01/30/2024 5:49 AM METEOROLOGIST LIAISON LACTIC ACID (LACTATE) Routine 01/30/2024 5:49 AM METEOROLOGIST LIAISON COMPLETE BLOOD COUNT (CBC) WITH DIFF Routine 01/30/2024 5:49 AM METEOROLOGIST LIAISON BASIC METABOLIC PANEL W/ CALCIUM TOTAL Routine 01/30/2024 5:49 AM METEOROLOGIST LIAISON AEROSOL NEBULIZER-INITIAL Routine 01/30/2024 12:04 AM METEOROLOGIST LIAISON POCT GLUCOSE Routine 01/29/2024 8:09 PM METEOROLOGIST LIAISON POCT GLUCOSE Routine 01/29/2024 3:57 PM METEOROLOGIST LIAISON GROUP A STREP BY PCR Routine 01/29/2024 3:43 PM METEOROLOGIST LIAISON TROPONIN I, HIGH SENSITIVITY (HSTRP) STAT 01/29/2024 2:27 PM METEOROLOGIST LIAISON B-TYPE NATRIURETIC PEPTIDE (BNP) STAT 01/29/2024 1:59 PM METEOROLOGIST LIAISON LACTIC ACID (LACTATE) STAT 01/29/2024 12:17 PM METEOROLOGIST LIAISON CREATINE KINASE (CK) TOTAL STAT 01/29/2024 12:17 PM METEOROLOGIST LIAISON C-REACTIVE PROTEIN (CRP) QUANT STAT 01/29/2024 12:[address] ANGIO CHEST W/WO ABDOMEN PELVIS W CONTRAST Stat with Interpretation 01/29/2024 11:51 AM METEOROLOGIST LIAISON URINALYSIS REFLEX IF INDICATED BY ABNORMAL RESULTS STAT 01/29/2024 11:34 AM METEOROLOGIST LIAISON STREPTOCOCCUS PNEUMONIAE ANTIGEN, URINE Routine 01/29/2024 11:34 AM METEOROLOGIST LIAISON UR LEGIONELLA ANTIGEN Routine 01/29/2024 11:34 AM METEOROLOGIST LIAISON CULTURE, URINE STAT 01/29/2024 11:34 AM METEOROLOGIST LIAISON XR CHEST SINGLE VIEW PORTABLE STAT 01/29/2024 10:29 AM METEOROLOGIST LIAISON CULTURE, BLOOD STAT 01/29/2024 9:31 AM METEOROLOGIST LIAISON EXTRA TUBES STAT 01/29/2024 9:22 AM METEOROLOGIST LIAISON GOLD TOP TUBE STAT 01/29/2024 9:22 AM METEOROLOGIST LIAISON BLUE TOP TUBE STAT 01/29/2024 9:22 AM METEOROLOGIST LIAISON CULTURE, BLOOD STAT 01/29/2024 9:22 AM METEOROLOGIST LIAISON HEMOGLOBIN A1C W/ ESTIMATED GLUCOSE STAT 01/29/2024 9:21 AM METEOROLOGIST LIAISON RSV,SARS-COV-2,INFL UENZA A&B BY PCR STAT 01/29/2024 9:21 AM METEOROLOGIST LIAISON CBC WITH AUTO DIFFERENTIAL STAT 01/29/2024 9:21 AM METEOROLOGIST LIAISON LACTIC ACID (LACTATE) STAT 01/29/2024 9:21 AM METEOROLOGIST LIAISON CMP (COMPREHENSIVE METABOLIC PANEL) STAT 01/29/2024 9:21 AM METEOROLOGIST LIAISON COMPLETE BLOOD COUNT (CBC) WITH DIFF STAT 01/29/2024 9:21 AM METEOROLOGIST LIAISON CRITICAL CARE Routine 01/29/2024 9:15 AM METEOROLOGIST LIAISON EKG 12 LEAD STAT 01/29/2024 9:07 AM METEOROLOGIST LIAISON RHYTHM STRIP 01/29/2024 12:00 AM METEOROLOGIST LIAISON EKG SCAN 01/29/2024 12:00 AM METEOROLOGIST LIAISON documented in this encounter Results * (ABNORMAL) POCT Glucose (02/01/2024 11:13 AM METEOROLOGIST LIAISON) Only the most recent of12 resultswithin the time period is included. Pathologist Michelle GLUCOSE,BEDSID E POCT 257(H) 70 - 99 mg/dL 02/01/2024 11:25 AM METEOROLOGIST LIAISON [facility] Comment:Patient RN Performed Blood 02/01/2024 11:1 3 AM METEOROLOGIST LIAISON 02/01/2024 11:25 AM METEOROLOGIST LIAISON us None Provider POINT OF CARE TESTING Final Resu lt [facility] [address] [place] [address] * (ABNORMAL) CBC with Auto Differential (02/01/2024 4:44 AM METEOROLOGIST LIAISON) Only the most recent of4 resultswithin the time period is included. WBC 15.31(H) 4.00 - 12.00 10(3)/mcL 02/01/2024 5:17 AM [facility] RBC 4.48 3.80 - 5.30 10(6)/mcL 02/01/2024 5:17 AM [facility] HEMOGLOBIN (HGB) 13.6 12.0 - 15.8 g/dL 02/01/2024 5:17 AM [facility] HEMATOCRIT (HCT) 42.1 36.0 - 47.0 % 02/01/2024 5:17 AM [facility] MCV 94.0 82.0 - 96.0 fL 02/01/2024 5:17 AM [facility] MCH 30.4 26.0 - 34.0 pg 02/01/2024 5:17 AM [facility] MCHC 32.3 31.0 - 36.0 g/dL 02/01/2024 5:17 AM [facility] PLATELET COUNT 237 140 - 440 10(3)/mcL 02/01/2024 5:17 AM [facility] RDW 13.0 11.8 - 15.5 % 02/01/2024 5:17 AM [facility] MPV 11.7 9.7 - 12.4 fL 02/01/2024 5:17 AM [facility] NEUTROPHILS 79.8(H) 47.0 - 73.0 % 02/01/2024 5:17 AM [facility] LYMPHOCYTES 14.1(L) 18.0 - 42.0 % 02/01/2024 5:17 AM [facility] MONOCYTES 5.6 4.0 - 12.0 % 02/01/2024 5:17 AM [facility] EOSINOPHILS 0.0 0.0 - 5.0 % 02/01/2024 5:17 AM [facility] BASOPHILS 0.5 0.0 - 1.0 % 02/01/2024 5:17 AM [facility] ABSOLUTE NEUTROPHILS 12.21(H) 1.60 - 7.70 10(3)/[facility] 02/01/2024 5:17 AM [facility] ABSOLUTE LYMPHOCYTES 2.16 1.30 - 3.20 10(3)/[facility] 02/01/2024 5:17 AM [facility] ABSOLUTE MONOCYTES 0.86 0.20 - 1.00 10(3)/[facility] 02/01/2024 5:17 AM [facility] ABSOLUTE EOSINOPHIL 0.00 0.00 - 0.40 10(3)/[facility] 02/01/2024 5:17 AM [facility] ABSOLUTE BASOPHILS 0.08 0.00 - 0.10 10(3)/[facility] 02/01/2024 5:17 AM [facility] NRBC PER 100 WBC 0 02/01/20 24 5:17 AM [facility] Blood BLOOD SPECIMEN / Unknown Venipuncture / Unknown 02/01/2024 4:44 AM METEOROLOGIST LIAISON 02/01/2024 5:14 AM [facility] us Alicia Sweet MD HEMATOLOGY ORDERABLES Final R esult [facility] [address] [place] [address] * (ABNORMAL) BMP AM (02/01/2024 4:44 AM METEOROLOGIST LIAISON) Only the most recent of3 resultswithin the time period is included. SODIUM 135(L) 136 - 145 mmol/L 02/01/2024 5:38 AM [facility] POTASSIUM 4.5 3.5 - 5.1 mmol/L 02/01/2024 5:38 AM [facility] CHLORIDE 97(L) 98 - 107 mmol/L 02/01/2024 5:38 AM [facility] CO2, VENOUS 26 22 - 30 mmol/L 02/01/2024 5:38 AM [facility] ANION GAP 16.5 <18.0 mmol/L 02/01/2024 5:38 AM [facility] GLUCOSE 250(H) 70 - 99 mg/dL 02/01/2024 5:38 AM [facility] BUN 20 10 - 20 mg/dL 02/01/2024 5:38 AM [facility] CREATININE, BLOOD 0.79 0.60 - 1.00 mg/dL 02/01/2024 5:38 AM [facility] BUN/CREATININE RATIO 25(H) 12 - 20 ratio 02/01/2024 5:38 AM [facility] CALCIUM 9.7 8.7 - 10.5 mg/dL 02/01/2024 5:38 AM [facility] GFR, ESTIMATED >60 >=60 02/01/2024 5:38 AM [facility] Comment: Creatinine Clearance is the preferred criteria for selecting drug dose adjustments in renally impaired patients. ??The GFR is provided as additional pertinent clinical information. GFR is reported in mL/min/1.73 sq m. Calculation based on the Chronic Kidney Disease Epidemiology Collaboration (CKD- EPI) equation refit without adjustment for race. GFR, EST. >60 >=60 024 5:38 AM [facility] GFR, EST. NONAFRICAN >60 >=60 02/01/2024 5:38 AM [facility] Blood BLOOD SPECIMEN / Unknown Venipuncture / Unknown 02/01/2024 4:44 AM METEOROLOGIST LIAISON 02/01/2024 5:14 AM METEOROLOGIST LIAISON Alicia Sweet MD CHEMISTRY ORDERABLES Final Re sult Performing Organization Address City/[facility] Co de Phone Number [facility] [address] [place] [address] * Lactic Acid (Lactate) (01/30/2024 5:49 AM METEOROLOGIST LIAISON) Only the most recent of3 resultswithin the time period is included. LACTIC ACID 1.9 0.7 - 2.0 mmol/L 01/30/2024 6:10 AM METEOROLOGIST LIAISON [facility] Blood Venipuncture / Unknown 01/30/2024 5:49 AM METEOROLOGIST LIAISON 01/30/2024 5:54 AM METEOROLOGIST LIAISON Alicia Sweet MD CHEMISTRY ORDERABLES Final Re sult Performing Organization Address [facility] de Phone Number [facility] [address] [place] [address] * TROPONIN I, HIGH SENSITIVITY (HSTRP) (01/30/2024 5:49 AM METEOROLOGIST LIAISON) Only the most recent of2 resultswithin the time period is included. TROPONIN I, HIGH SENSITIVITY- [place] <3 <=14 ng/L 01/30/2024 6:54 AM METEOROLOGIST LIAISON [facility] Comment: High-sensitivity troponin I results are reported in ng/L making the result appear to be 1,000 times higher than the contemporary troponin I value which is reported in ng/ml. Results from [place]. Blood BLOOD SPECIMEN / Unknown Venipuncture / Unknown 01/30/2024 5:49 AM METEOROLOGIST LIAISON 01/30/2024 5:54 AM METEOROLOGIST LIAISON Alicia Sweet MD CHEMISTRY ORDERABLES Final Re sult Performing Organization Address [facility] Co de Phone Number [facility] [address] [place] [address] * GROUP A STREP BY PCR (01/29/2024 3:43 PM METEOROLOGIST LIAISON) GROUP A STREP BY PCR NOT DETECTED NOT DETECTED 01/29/2024 4:58 PM METEOROLOGIST LIAISON [facility] Swab SPECIMEN FROM THROAT / Unknown Non-Phlebotomy Collection / Unknown 01/29/2024 3:43 PM METEOROLOGIST LIAISON 01/29/2024 3:51 PM METEOROLOGIST LIAISON us Alicia Sweet MD MICROBIOLOGY - GENERAL ORDERA BLES Final Result Performing Organization Address [facility]/ZIP Co de Phone Number [facility] [address] [place] [address] * B-Type Natriuretic Peptide (BNP) (01/29/2024 1:59 PM METEOROLOGIST LIAISON) Pathologist [facility] [place] B TYPE NATRIURETIC PEPTIDE 43 <100 pg/mL 01/29/2024 2:27 PM METEOROLOGIST LIAISON [facility] Blood Venipuncture / Unknown 01/29/2024 1:59 PM METEOROLOGIST LIAISON 01/29/2024 2:13 PM METEOROLOGIST LIAISON us Alicia Sweet MD CHEMISTRY ORDERABLES Final Re sult Performing Organization Address [facility]/ZIP Co de Phone Number [facility] [address] [place] [address] * Creatine Kinase (CK) Total (01/29/2024 12:17 PM METEOROLOGIST LIAISON) Pathologist [facility] [place] CK (CPK) 100 29 - 168 U/L 01/29/2024 2:31 PM METEOROLOGIST LIAISON [facility] Blood Venipuncture / Unknown 01/29/2024 12:17 PM METEOROLOGIST LIAISON 01/29/2024 1:42 PM METEOROLOGIST LIAISON us Alicia Sweet MD HEMATOLOGY ORDERABLES Final R esult Performing Organization Address City/[facility]/ZIP Co de Phone Number [facility] [address] [place] [address] * (ABNORMAL) C-Reactive Protein (CRP) Quant (01/29/2024 12:17 PM METEOROLOGIST LIAISON) C-REACTIVE PROTEIN 6.96(H) <0.50 mg/dL 01/29/2024 2:11 PM METEOROLOGIST LIAISON [facility] Blood Venipuncture / Unknown 01/29/2024 12:17 PM METEOROLOGIST LIAISON 01/29/2024 1:42 PM METEOROLOGIST LIAISON us Alicia Sweet MD CHEMISTRY ORDERABLES Final Re sult [facility] [address] [place] [address] * CT ANGIO CHEST W/WO ABDOMEN PELVIS W CONTRAST (01/29/2024 11:51 AM METEOROLOGIST LIAISON) Anatomical Region Laterality Modality Chest N/A Computed Tomogra phy 01/29/2024 12:5 6 PM METEOROLOGIST LIAISON Impressions 01/29/2024 12:58 PM METEOROLOGIST LIAISON IMPRESSION: Suboptimal opacification of the pulmonary arteries. The segmental pulmonary arteries are not well opacified and incompletely evaluated. No central pulmonary embolism. Diffuse bronchial wall thickening can be seen with bronchitis. No acute abnormality in the abdomen or pelvis. Hepatic steatosis. Narrative 01/29/2024 12:58 PM METEOROLOGIST LIAISON EXAM DESCRIPTION: ?? CT ANGIO CHEST W/WO [...] PM T: ??01/29/2024 12:56 PM Report ID: [id number] Reading Location: ??[id number] Procedure Note Chuck Painter MD - 01/29/2024 [...] Electronically signed by Chuck Painter M.D. LB: LB Report ID: [id number] Reading Location: [id number] IMPRESSION: Suboptimal opacification of the pulmonary arteries. The segmental pulmonary arteries are not well opacified and incompletely evaluated. No central pulmonary embolism. Diffuse bronchial wall thickening can be seen with bronchitis. No acute abnormality in the abdomen or pelvis. Hepatic steatosis. Sharon Quispe MD IMG CT ORDERABLES Final Resul t * Ur Legionella Antigen (01/29/2024 11:34 AM METEOROLOGIST LIAISON) LEGIONELLA URINE AG Negative Negative 01/29/2024 9:58 PM METEOROLOGIST LIAISON [facility] Comment:Presumptive Negative for Legionella Pneumophila Serogroup 1 [...] Non-Phlebotomy Collection / Unknown 01/29/2024 11:34 AM METEOROLOGIST LIAISON 01/29/2024 4:19 PM METEOROLOGIST LIAISON us Alicia Sweet MD URINE ORDERABLES Final Result [facility] [address] [place] [address], [place] * Streptococcus Pneumoniae Antigen, Urine (01/29/2024 11:34 AM METEOROLOGIST LIAISON) STREP PNEUMO ANTIGEN Negative Negative 01/29/2024 9:58 PM METEOROLOGIST LIAISON [facility] Comment:Negative result sugg ests no current or recent pneumococcal infection. Infection due to S. pneumoniae cannot be ruled out since the antigen present in the sample may be below the detection limit of the test. Other URINE SPECIMEN / Unknown Non-Phlebotomy Collection / Unknown 01/29/2024 11:34 AM METEOROLOGIST LIAISON 01/29/2024 4:19 PM METEOROLOGIST LIAISON us Alicia Sweet MD URINE ORDERABLES Final Result Performing Organization Address City/[facility] Co de Phone Number [facility] [address] [place] [address], [place] * Culture, Urine (01/29/2024 11:34 AM METEOROLOGIST LIAISON) Pathologist [facility] [place] CULTURE RESULTS Mixed Growth of One or More Distal Urethral Contaminants 01/31/2024 10:13 AM METEOROLOGIST LIAISON [facility] Urine URINE SPECIMEN / Unknown Non-Phlebotomy Collection / Unknown 01/29/2024 11:34 AM METEOROLOGIST LIAISON 01/29/2024 11:44 AM METEOROLOGIST LIAISON us Sharon Quispe MD MICROBIOLOGY - GENERAL ORDERA BLES Final Result Performing Organization Address [facility] Co de Phone Number [facility] [address] [place] [address], [place] * (ABNORMAL) Urinalysis with Reflex (01/29/2024 11:34 AM METEOROLOGIST LIAISON) SPECIFIC GRAVITY 1.005 1.003 - 1.030 01/29/2024 12:28 PM METEOROLOGIST LIAISON [facility] URINE PH 7.0 5.0 - 9.0 01/29/2024 12:28 PM METEOROLOGIST LIAISON [facility] WBC ESTERASE 25 /ul(A) Negative 01/29/2024 12:28 PM METEOROLOGIST LIAISON [facility] NITRITE Negative Negative 01/29/2024 12:28 PM METEOROLOGIST LIAISON [facility] PROTEIN, RANDOM URINE Negative Negative 01/29/2024 12:28 PM METEOROLOGIST LIAISON [facility] URINE GLUCOSE, QUAL Negative Negative 01/29/2024 12:28 PM METEOROLOGIST LIAISON [facility] URINE KETONES Negative Negative 01/29/2024 12:28 PM METEOROLOGIST LIAISON [facility] UROBILINOGEN Normal Normal mg/dL 01/29/2024 12:28 PM METEOROLOGIST LIAISON [facility] URINE BLOOD 150 /uL(A) Negative dylan/ul 01/29/2024 12:28 PM METEOROLOGIST LIAISON [facility] URINALYSIS COLOR Yellow 01/29/20 12:28 PM METEOROLOGIST LIAISON [facility] URINALYSIS CLARITY Slightly Cloudy 01/29/2024 12:28 PM METEOROLOGIST LIAISON [facility] WBC (Urine) 6-10(A) Negative, 0-5 /hpf 01/29/2024 12:28 PM METEOROLOGIST LIAISON [facility] URINE RBC'S 21-50(A) Negative, 0-2 /hpf 01/29/2024 12:28 PM METEOROLOGIST LIAISON [facility] EPITHELIAL CELLS Large amount squamous /lpf 01/29/2024 12:28 PM METEOROLOGIST LIAISON [facility] BACTERIA, URINE Few(A) Negative /hpf 01/29/2024 12:28 PM METEOROLOGIST LIAISON [facility] Urine URINE SPECIMEN / Unknown Non-Phlebotomy Collection / Unknown 01/29/2024 11:34 AM METEOROLOGIST LIAISON 01/29/2024 11:44 AM METEOROLOGIST LIAISON us Sharon Quispe MD URINE ORDERABLES Final Result [facility] [address] [place] [address] * XR CHEST SINGLE VIEW PORTABLE (01/29/2024 10:29 AM METEOROLOGIST LIAISON) Anatomical Region Laterality Modality Chest N/A Digital Radiogra phy 01/29/2024 10:5 4 AM METEOROLOGIST LIAISON Impressions 01/29/2024 10:57 AM METEOROLOGIST LIAISON IMPRESSION: No acute pulmonary process. Narrative 01/29/2024 10:57 AM METEOROLOGIST LIAISON EXAM DESCRIPTION: XR CHEST SINGLE VIEW PORTABLE [...] AM T: ??01/29/2024 10:54 AM Report ID: [id number] Reading Location: ??[id number] Procedure Note Flynn Carrasco MD - 01/29/2024 [...] Flynn Carrasco M.D. MM: MM Report ID: [id number] Reading Location: [id number] IMPRESSION: No acute pulmonary process. us Sharon Quispe MD IMG DIAGNOSTIC ORDERABLES Fin al Result * Blood Culture #2 (01/29/2024 9:31 AM METEOROLOGIST LIAISON) Only the most recent of2 resultswithin the time period is included. CULTURE RESULTS NO GROWTH WITHIN 5 DAYS, FINAL RESULT 02/03/2024 10:01 AM METEOROLOGIST LIAISON [facility] Culture BLOOD SPECIMEN / Unknown Venipuncture / Unknown 01/29/2024 9:31 AM METEOROLOGIST LIAISON 01/29/2024 9:31 AM METEOROLOGIST LIAISON Sharon Quispe MD MICROBIOLOGY - GENERAL ORDERA BLES Final Result [facility] [address] [place] [address], [place] * Gold Top Tube (01/29/2024 9:22 AM METEOROLOGIST LIAISON) Blood No Phlebotomy Charged / Unknown 01/29/2024 9:22 AM METEOROLOGIST LIAISON 01/29/2024 9:31 AM METEOROLOGIST LIAISON Sharno Quispe MD CHEMISTRY ORDERABLES Final Re sult [facility] [address] [place] [address] * Blue Top Tube (01/29/2024 9:22 AM METEOROLOGIST LIAISON) Blood No Phlebotomy Charged / Unknown 01/29/2024 9:22 AM METEOROLOGIST LIAISON 01/29/2024 9:31 AM METEOROLOGIST LIAISON Sharon Quispe MD HEMATOLOGY ORDERABLES Final R esult Performing Organization Address City/[facility]/ZIP Co de Phone Number [facility] [address] [place] [address] * RSV,SARS-COV-2,INFLUENZA A&B BY PCR (01/29/2024 9:21 AM METEOROLOGIST LIAISON) FLU A Negative Negative, Error 01/29/2024 10:11 AM METEOROLOGIST LIAISON [facility] FLU B Negative Negative 01/29/2024 10:11 AM METEOROLOGIST LIAISON [facility] RESP SYNC VIRUS Negative Negative 10:11 AM METEOROLOGIST LIAISON [facility] SARSCOV2 NOT DETECTED (Reference Range for this test is Not Detected) 01/29/2024 10:11 AM METEOROLOGIST LIAISON [facility] Comment:This test was perfor med by a Reverse Open Hearth Helper PCR Method. Swab NASOPHARYNGEAL SWAB / Unknown Non-Phlebotomy Collection / Unknown 01/29/2024 9:21 AM METEOROLOGIST LIAISON 01/29/2024 9:29 AM METEOROLOGIST LIAISON Narrative [facility] - 01/29/2024 10:11 AM METEOROLOGIST LIAISON This test has not been FDA cleared or approved; the test has been authorized by FDA under an Emergency Use Authorization (EUA) for use by laboratories certified under the CLIA that meet the requirements to perform moderate, high or waived complexity tests. Authorized Fact Sheets about this test for providers and patients are available at: https://www.fda.gov/medical-devices/nryblbjhk-wqfxpgxmsr-gphhvpo-devices/emergen -us e-authorizations Sharon Quispe MD MICROBIOLOGY - GENERAL ORDERA BLES Final Result [facility] [address] [place] [address] * (ABNORMAL) CMP (Comprehensive Metabolic Panel) (01/29/2024 9:21 AM METEOROLOGIST LIAISON) SODIUM 138 136 - 145 mmol/L 01/29/2024 9:53 AM [facility] POTASSIUM 3.8 3.5 - 5.1 mmol/L 01/29/2024 9:53 AM [facility] CHLORIDE 97(L) 98 - 107 mmol/L 01/29/2024 9:53 AM [facility] CO2, VENOUS 29 22 - 30 mmol/L 01/29/2024 9:53 AM [facility] ANION GAP 15.8 <18.0 mmol/L 01/29/2024 9:53 AM [facility] GLUCOSE 155(H) 70 - 99 mg/dL 01/29/2024 9:53 AM [facility] BUN 9(L) 10 - 20 mg/dL 01/29/2024 9:53 AM [facility] CREATININE, BLOOD 0.70 0.60 - 1.00 mg/dL 01/29/2024 9:53 AM [facility] BUN/CREATININE RATIO 13 12 - 20 ratio 01/29/2024 9:53 AM [facility] TOTAL PROTEIN 7.1 6.3 - 8.2 g/dL 01/29/2024 9:53 AM [facility] ALBUMIN 4.0 3.5 - 5.0 g/dL 01/29/2024 9:53 AM [facility] A/G RATIO 1.3 1.0 - 2.2 01/29/2024 9:53 AM [facility] CALCIUM 10.2 8.7 - 10.5 mg/dL 01/29/2024 9:53 AM [facility] T BILI 0.9 0.2 - 1.2 mg/dL 01/29/2024 9:53 AM [facility] SGOT (AST) 20 5 - 34 U/L 01/29/2024 9:53 AM [facility] SGPT (ALT) 33 0 - 55 U/L 01/29/2024 9:53 AM [facility] ALKALINE PHOSPHATASE 84 40 - 150 U/L 01/29/2024 9:53 AM [facility] GFR, ESTIMATED >60 >=60 01/29/2024 9:53 AM [facility] Comment: Creatinine Clearance is the preferred criteria for selecting drug dose adjustments in renally impaired patients. ??The GFR is provided as additional pertinent clinical information. GFR is reported in mL/min/1.73 sq m. Calculation based on the Chronic Kidney Disease Epidemiology Collaboration (CKD- EPI) equation refit without adjustment for race. GFR, EST. >60 >=60 024 9:53 AM [facility] GFR, EST. NONAFRICAN >60 >=60 01/29/2024 9:53 AM [facility] Blood Venipuncture / Unknown 01/29/2024 9:21 AM METEOROLOGIST LIAISON 01/29/2024 9:30 AM METEOROLOGIST LIAISON us Sharon Quispe MD CHEMISTRY ORDERABLES Final Re sult Performing Organization Address [facility] Co de Phone Number [facility] [address] [place] [address] * (ABNORMAL) Hemoglobin A1C w/ Estimated Glucose (01/29/2024 9:21 AM METEOROLOGIST LIAISON) HGB-A1C 7.5(H) 4.0 - 6.0 % 01/29/2024 5:21 PM METEOROLOGIST LIAISON [facility] Est Average Glucose 168.6 mg/dL 01/29/2024 5:21 PM METEOROLOGIST LIAISON [facility] Blood Venipuncture / Unknown 01/29/2024 9:21 AM METEOROLOGIST LIAISON 01/29/2024 9:30 AM METEOROLOGIST LIAISON Narrative [facility] - 01/29/2024 5:21 PM METEOROLOGIST LIAISON HEMOGLOBIN A1C: DIABETIC PATIENTS: WELL-CONTROLLED: ?? 6.2 - 7.0 INTERMEDIATE WELL-CONTROLLED: ??7.0 - 9.0 POORLY-CONTROLLED: ??>9.0 us Alicia Sweet MD CHEMISTRY ORDERABLES Final Re sult Performing Organization Address [facility] Co de Phone Number [facility] [address] [place] [address] * Critical Care (01/29/2024 9:15 AM METEOROLOGIST LIAISON) Narrative Sharon Quispe MD - 01/29/2024 9:15 AM METEOROLOGIST LIAISON Sharon Quispe MD ? 01/29/2024 ??6:47 PM [...] * EKG 12 LEAD (01/29/2024 9:07 AM METEOROLOGIST LIAISON) Ventricular Rate 119 BPM EXTERNAL EKG Atrial Rate 119 BPM EXTERNAL EKG P-R Interval 136 ms EXTERNAL EKG QRS Duration 82 ms EXTERNAL EKG Q-T Duration 328 ms EXTERNAL EKG QTC CALCULATION 461 ms EXTERNAL EKG P [place] 41 degrees EXTERNAL EKG R [place] -20 degrees EXTERNAL EKG T [place] 46 degrees EXTERNAL EKG 01/29/2024 9:07 AM METEOROLOGIST LIAISON Impressions EXTERNAL EKG - 02/03/2024 12:00 PM METEOROLOGIST LIAISON Sinus tachycardia Minimal voltage criteria for LVH, may be normal variant ( R in aVL ) Borderline ECG No previous ECGs available Confirmed by Kizzy Darnell ([id number]) on 02/03/2024 12:00:02 PM Narrative Procedure Note Kizzy Darnell MD - 02/03/2024 IMPRESSION: Sinus tachycardia Minimal voltage criteria for LVH, may be normal variant ( R in aVL ) Borderline ECG No previous ECGs available Confirmed by Kizzy Darnell ([id number]) on 02/03/2024 12:00:02 PM us Sharon Quispe MD IMG ECG ORDERABLES Final Resu lt EXTERNAL EKG * RHYTHM STRIP (01/29/2024 12:00 AM METEOROLOGIST LIAISON) 01/29/2024 us Provider Scan IMG ECG ORDERABLES Final Result RESULTING AGENCY * EKG SCAN (01/29/2024 12:00 AM METEOROLOGIST LIAISON) 01/29/2024 us Provider Scan IMG ECG ORDERABLES Final Result Performing Organization Address City/State/[facility] Co de Phone Number RESULTING AGENCY documented in this encounter Visit Diagnoses Diagnosis COPD exacerbation (HCC)- Primary Obstructive chronic bronchitis with exacerbation COPD exacerbation (HCC) Obstructive chronic bronchitis with exacerbation Sepsis (HCC) documented in this encounter Administered Medications Inactive Administered Medications - up to 3 most recent administrations Medication Order MAR Action Action Date Dose Rate Site 0.9 % sodium chloride solution at 100 mL/hr, Intravenous, CONTINUOUS, Starting on Mon01/29/24 at 1530, Until Mon01/30/24 at 1529 New Bag 01/29/2024 3:24 PM METEOROLOGIST LIAISON 100 mL/hr acetaminophen (TYLENOL) tablet 650 mg 650 mg, Oral, EVERY 8 HOURS PRN, Starting on Mon01/29/24 at 1458, Until Mon02/01/24 at 1453, Fever, temp x>100.2 F, Maximum dose of acetaminophen is 4000 mg from all sources in 24 hours. acetaminophen (TYLENOL) tablet 975 mg 975 mg, Oral, ONCE, 1 dose, On Mon01/29/24 at 1000, Maximum dose of acetaminophen is 4000 mg from all sources in 24 hours.Indications:Pain or Fever Given 01/29/2024 9:43 AM METEOROLOGIST LIAISON 975 mg albuterol (PROVENTIL, VENTOLIN) (2.5 MG/3ML) 0.083% nebulizer solution 2.5 mg 2.5 mg, Nebulization, EVERY 8 HOURS, First dose on Mon01/29/24 at 1800, Until Discontinued Given 01/29/2024 8:13 PM METEOROLOGIST LIAISON 2.5 mg albuterol (PROVENTIL, VENTOLIN) (2.5 MG/3ML) 0.083% nebulizer solution 2.5 mg 2.5 mg, Nebulization, 3 TIMES DAILY, First dose on Mon01/30/24 at 0800, Until Discontinued, For RTA Severity Level 2Indications:COPD exacerbation (HCC) Given 01/31/2024 7:07 AM METEOROLOGIST LIAISON 2.5 mg Given 01/30/2024 7:43 PM METEOROLOGIST LIAISON 2.5 mg Given 01/30/2024 1:15 PM METEOROLOGIST LIAISON 2.5 mg albuterol (PROVENTIL, VENTOLIN) (2.5 MG/3ML) 0.083% nebulizer solution 2.5 mg 2.5 mg, Nebulization, EVERY 6 HOURS PRN, Starting on Mon01/31/24 at 0817, Until Natalie 02/01/24 at 0835, Wheezing, 1. For RTA Severity Level 1 2. Discontinue all albuterol and ipratropium ORDERS AND ORDER SET if assessment results for 2 consecutive days has been a level 1 and no PRN treatments have been administered in the same time period. 3. A new physician order is required to resume order set once discontinued.Indications:COPD exacerbation (HCC) Given 02/01/2024 4:05 AM METEOROLOGIST LIAISON 2.5 mg Given 01/31/2024 7:34 PM METEOROLOGIST LIAISON 2.5 mg albuterol (PROVENTIL, VENTOLIN) (2.5 MG/3ML) 0.083% nebulizer solution 2.5 mg 2.5 mg, Nebulization, 3 TIMES DAILY, First dose on Mon02/01/24 at 1300, Until Discontinued, For RTA Severity Level 2Indications:COPD exacerbation (HCC) albuterol (PROVENTIL, VENTOLIN) (2.5 MG/3ML) 0.083% nebulizer solution 2.5 mg 2.5 mg, Nebulization, EVERY 6 HOURS PRN, Starting on Mon02/01/24 at 0834, Until Mon02/01/24 at 1453, Wheezing, Shortness of Breath, For RTA Severity Level 2Indications:COPD exacerbation (HCC) azithromycin (ZITHROMAX) 500 mg in sodium chloride 0.9 % 250 mL IVPB 500 mg, Intravenous, ONCE, 1 dose, On Mon01/29/24 at 1000, Administer over 60 Minutes, Indications: Community Acquired Pneumonia, at 250 mL/hrIndications:Community Acquired Pneumonia New Bag 01/29/2024 9:55 AM METEOROLOGIST LIAISON 500 mg 250 mL/hr azithromycin (ZITHROMAX) tablet 250 mg 250 mg, Oral, DAILY, First dose on Mon01/30/24 at 0900, Until Discontinued, Indications: Community Acquired PneumoniaIndications:Community Acquired Pneumonia Given 02/01/2024 9:03 AM METEOROLOGIST LIAISON 250 mg Given 01/31/2024 8:45 AM METEOROLOGIST LIAISON 250 mg Given 01/30/2024 8:39 AM METEOROLOGIST LIAISON 250 mg benzonatate (TESSALON) capsule 100 mg 100 mg, Oral, 3 TIMES DAILY PRN, Starting on Mon01/29/24 at 1457, Until Mon01/30/24 at 1729, Cough, Swallow capsule whole (do not break, chew, dissolve, cut, or crush). If capsules are chewed or dissolved in the mouth, oral mucosa anesthesia may occur and could lead to choking. If numbness or tingling of the tongue, mouth, throat, or face occurs, refrain from oral ingestion of food or liquid until numbness has resolved. Given 01/30/2024 2:[address] 100 mg Given 01/30/2024 8:40 AM METEOROLOGIST LIAISON 100 mg benzonatate (TESSALON) capsule 100 mg 100 mg, Oral, 3 TIMES DAILY PRN, Starting on Mon01/30/24 at 1729, Until Mon02/01/24 at 1453, Cough, Swallow capsule whole (do not break, chew, dissolve, cut, or crush). If capsules are chewed or dissolved in the mouth, oral mucosa anesthesia may occur and could lead to choking. If numbness or tingling of the tongue, mouth, throat, or face occurs, refrain from oral ingestion of food or liquid until numbness has resolved. benztropine (COGENTIN) tablet 0.5 mg 0.5 mg, Oral, NIGHTLY, First dose on Mon01/29/24 at 2100, Until Discontinued Given 01/31/2024 9:26 PM METEOROLOGIST LIAISON 0.5 mg Given 01/30/2024 9:30 PM METEOROLOGIST LIAISON 0.5 mg Given 01/29/2024 9:08 PM METEOROLOGIST LIAISON 0.5 mg cefTRIAXone (ROCEPHIN) injection 2 g 2 g, Intravenous, ONCE, 1 dose, On Mon01/29/24 at 1000, OK to use for Penicillin Allergy, Indications: Systemic Bacterial Infection, SEPSISIndications:Systemic Bacterial Infection, SEPSIS Given 01/29/2024 9:56 AM METEOROLOGIST LIAISON 2 g cefTRIAXone (ROCEPHIN) injection 2 g 2 g, Intravenous, EVERY 24 HOURS, 5 doses, First dose on Mon01/29/24 at 1530, Last dose on Mon02/02/24 at 1530, If patient hemodynamically stable at 48 hours change ceftriaxone to oral beta-lactam for remainder of 5 day treatment., Indications: Community Acquired PneumoniaIndications:Community Acquired Pneumonia Given 01/31/2024 2:48 PM METEOROLOGIST LIAISON 2 g Given 01/30/2024 2:57 PM METEOROLOGIST LIAISON 2 g Given 01/29/2024 3:18 PM METEOROLOGIST LIAISON 2 g dextrose 50 % solution 12.5 g 12.5 g, Intravenous, PRN, Starting on Mon01/29/24 at 1655, Until Natalie 02/01/24 at 1453, Low blood sugar, If IV patent in patient with blood glucose of 50 or less, or Unconscious, Conscious but NPO or Unable to Swallow regardless of blood glucose, administer 1 dose of dextrose 50% solution. DULoxetine (CYMBALTA) capsule 90 mg 90 mg, Oral, DAILY, First dose on Mon01/29/24 at 1730, Until Discontinued, Do Not Crush Given 02/01/2024 9:03 AM METEOROLOGIST LIAISON 90 mg Given 01/31/2024 8:45 AM METEOROLOGIST LIAISON 90 mg Given 01/30/2024 8:39 AM METEOROLOGIST LIAISON 90 mg enoxaparin (LOVENOX) injection 40 mg 40 mg, Subcutaneous, EVERY 12 HOURS SCHEDULED, First dose on Mon01/29/24 at 2100, Until Discontinued Given 02/01/2024 9:04 AM METEOROLOGIST LIAISON 40 mg Left Abdomen Given 01/31/2024 9:26 PM METEOROLOGIST LIAISON 40 mg Le ft Abdomen Given 01/31/2024 8:46 AM METEOROLOGIST LIAISON 40 mg Le ft Abdomen furosemide (LASIX) injection 20 mg 20 mg, Intravenous, ONCE, 1 dose, On Mon01/31/24 at 1730 Given 01/31/2024 5:25 PM METEOROLOGIST LIAISON 20 mg gabapentin (NEURONTIN) capsule 900 mg 900 mg, Oral, 3 TIMES DAILY, First dose on Mon01/29/24 at 2100, Until Discontinued, Do Not Crush Given 02/01/2024 9:01 AM METEOROLOGIST LIAISON 900 mg Given 01/31/2024 9:26 PM METEOROLOGIST LIAISON 900 mg Given 01/31/2024 2:48 PM METEOROLOGIST LIAISON 900 mg Glucagon Emergency injection KIT 1 mg 1 mg, Intramuscular, PRN, Starting on Mon01/29/24 at 1655, Until Natalie 02/01/24 at 1453, If patient has no intravenous access and blood glucose of 50 or less, or Unconscious, Conscious but NPO or Unable to Swallow regardless of blood glucose administer 1 dose of glucagon. Glucagon may cause vomiting. Position patient on the side., Other, Low blood sugar Glucagon Emergency injection KIT 1 mg 1 mg, Subcutaneous, PRN, Starting on 01/29/24 at 1655, Until Natalie 12 at 1453, If patient has no intravenous access and blood glucose of 50 or less, or Unconscious, Conscious but NPO or Unable to Swallow regardless of blood glucose administer 1 dose of glucagon. Glucagon may cause vomiting. Position patient on the side., Other, Low blood sugar glucose (GLUTOSE) 40 % gel GEL 15 g 15 g, Oral, PRN, Starting on Mon01/29/24 at 1655, Until Natalie 12 at 1453, Low blood sugar, Dose is based on glucose. 37.5 g tube = 15 GRAMS of GLUCOSE. For 15 GRAM GLUCOSE dose, give entire 37.5 g size tube. Administer 1 dose if patient is unable to take food, but conscious and able to swallow. guaiFENesin (MUCINEX) SR tablet 600 mg 600 mg, Oral, EVERY 12 HOURS PRN, Starting on Mon01/29/24 at 1457, Until Natalie 02/01/24 at 1453, Congestion, Do Not Crush guaiFENesin (MUCINEX) SR tablet 600 mg 600 mg, Oral, EVERY 12 HOURS PRN, Starting on Mon01/29/24 at 1652, Until Natalie 02/01/24 at 1453, Congestion, Do Not Crush Given 02/01/2024 3:57 AM METEOROLOGIST LIAISON 600 mg Given 01/30/2024 8:40 AM METEOROLOGIST LIAISON 600 mg Given 01/29/2024 5:29 PM METEOROLOGIST LIAISON 600 mg hydrALAZINE (APRESOLINE) injection 5 mg 5 mg, Intravenous, EVERY 6 HOURS PRN, Starting on Mon01/29/24 at 1721, Until Natalie 02/01/24 at 1453, High Blood Pressure - 1st line, SBP x>160 OR DBP x>100 hydroCHLOROthiazide tablet 25 mg 25 mg, Oral, DAILY, First dose on Mon01/29/24 at 1730, Until Discontinued Given 02/01/2024 9:00 AM METEOROLOGIST LIAISON 25 mg Given 01/31/2024 8:45 AM METEOROLOGIST LIAISON 25 mg Given 01/30/2024 8:40 AM METEOROLOGIST LIAISON 25 mg HYDROcodone-acetaminophen (NORCO) 5-325 MG per tablet 1 Tablet 1 Tablet, Oral, EVERY 4 HOURS PRN, Starting on Mon01/31/24 at 0612, Until Mon02/01/24 at 1453, Moderate pain or more severe pain if patient requests, Maximum dose of acetaminophen is 4000 mg from all sources in 24 hours.If pain not effectively managed, then contact provider to discuss possibly 1) adding scheduled opioid dosing or non-opioid pain treatments, 2) increasing dosage, or 3) changing to [employer]. Given 01/31/2024 6:32 AM METEOROLOGIST LIAISON 1 Tablet insulin glargine (LANTUS) 100 UNIT/ML injection 40 Units 40 Units, Subcutaneous, EVERY MORNING, First dose on Mon01/29/24 at 1730, Until Discontinued Given 02/01/2024 9:05 AM METEOROLOGIST LIAISON 40 Units Left Abdomen Given 01/31/2024 8:46 AM METEOROLOGIST LIAISON 40 Units Le ft Abdomen Given 01/30/2024 8:40 AM METEOROLOGIST LIAISON 40 Units Le ft Abdomen insulin lispro (HumaLOG) 100 UNIT/ML injection 13 Units 13 Units (rounded from 12.7 Units = 0.1 Units/kg ? 127 kg), Subcutaneous, DAILY AFTER BREAKFAST, First dose on Mon01/30/24 at 0900, Until Discontinued, Give immediately after the meal (to be given together with correction dose). Decrease MEAL/PRANDIAL/NUTRITIONAL dose by 50% when less than 50% is eaten. If patient does not eat, DO NOT give MEAL/PRANDIAL/NUTRITIONAL insulin, but still give CORRECTION insulin based on mealtime capillary blood glucose. Round down partial doses to the nearest unit. Given 02/01/2024 9:25 AM METEOROLOGIST LIAISON 13 Units Right Abdomen Given 01/31/2024 11:24 AM METEOROLOGIST LIAISON 13 Units L eft Abdomen Given 01/30/2024 8:49 AM METEOROLOGIST LIAISON 13 Units Le ft Abdomen insulin lispro (HumaLOG) 100 UNIT/ML injection 13 Units 13 Units (rounded from 12.7 Units = 0.1 Units/kg ? 127 kg), Subcutaneous, DAILY AFTER LUNCH, First dose on Mon01/30/24 at 1300, Until Discontinued, Give immediately after the meal (to be given together with correction dose). Decrease MEAL/PRANDIAL/NUTRITIONAL dose by 50% when less than 50% is eaten. If patient does not eat, DO NOT give MEAL/PRANDIAL/NUTRITIONAL insulin, but still give CORRECTION insulin based on mealtime capillary blood glucose. Round down partial doses to the nearest unit. Given 02/01/2024 11:44 AM METEOROLOGIST LIAISON 13 Units Left Abdomen Given 01/30/2024 12:03 PM METEOROLOGIST LIAISON 13 Units L eft Abdomen insulin lispro (HumaLOG) 100 UNIT/ML injection 13 Units 13 Units (rounded from 12.7 Units = 0.1 Units/kg ? 127 kg), Subcutaneous, DAILY AFTER DINNER, First dose on Mon01/29/24 at 1800, Until Discontinued, Give immediately after the meal (to be given together with correction dose). Decrease MEAL/PRANDIAL/NUTRITIONAL dose by 50% when less than 50% is eaten. If patient does not eat, DO NOT give MEAL/PRANDIAL/NUTRITIONAL insulin, but still give CORRECTION insulin based on mealtime capillary blood glucose. Round down partial doses to the nearest unit. Given 01/31/2024 5:07 PM METEOROLOGIST LIAISON 13 Units Left Abdomen Given 01/30/2024 5:37 PM METEOROLOGIST LIAISON 13 Units Ri ght Abdomen Given 01/29/2024 5:42 PM METEOROLOGIST LIAISON 13 Units Le ft Lateral Upper Arm insulin lispro (HumaLOG) 100 UNIT/ML injection 2-12 Units 2-12 Units, Subcutaneous, 3 TIMES DAILY AFTER MEALS, First dose on Mon01/29/24 at 1800, Until Discontinued, If BS is: 70-180 give no correction Insulin; 181-200 give 2 Unit; 201-250 give 4 Units; 251-300 give 6 Units; 301-350 give 8 Units; 351-400 give 10 Units; 401 or greater give 12 units and call physician. Given 02/01/2024 11:45 AM METEOROLOGIST LIAISON 6 Units L eft Abdomen Given 01/31/2024 5:07 PM METEOROLOGIST LIAISON 8 Units Le ft Abdomen Given 01/31/2024 12:00 PM METEOROLOGIST LIAISON 4 Units L eft Abdomen insulin lispro (HumaLOG) 100 UNIT/ML injection 2-6 Units 2-6 Units, Subcutaneous, NIGHTLY, First dose on Mon01/29/24 at 2100, Until Discontinued, If BS is: 70-200 give no correction Insulin; 201-250 give 2 units; 251-300 give 3 units; 301-350 give 4 units; 351-400 give 5 units; 401 or greater give 6 units and call physician. Given 01/31/2024 9:27 PM METEOROLOGIST LIAISON 4 Units Right Abdomen Given 01/30/2024 9:30 PM METEOROLOGIST LIAISON 3 Units Ri ght Abdomen Given 01/29/2024 9:08 PM METEOROLOGIST LIAISON 4 Units Ri ght Abdomen iopamidol (ISOVUE-370) 76 % injection 100 mL 100 mL, Intravenous, ONCE, 1 dose, On Mon01/29/24 at 1200 Given 01/29/2024 11:46 AM METEOROLOGIST LIAISON 124 mL levothyroxine (SYNTHROID) tablet 50 mcg 50 mcg, Oral, EVERY MORNING BEFORE BREAKFAST, First dose on Mon01/30/24 at 0730, Until DiscontinuedIndications:Hypothyroidism Given 02/01/2024 7:07 AM METEOROLOGIST LIAISON 50 mc g Given 01/31/2024 7:34 AM METEOROLOGIST LIAISON 50 mcg Given 01/30/2024 8:40 AM METEOROLOGIST LIAISON 50 mcg losartan (COZAAR) tablet 50 mg 50 mg, Oral, DAILY, First dose on Mon01/29/24 at 1730, Until Discontinued Given 02/01/2024 9:02 AM METEOROLOGIST LIAISON 50 mg Given 01/31/2024 8:45 AM METEOROLOGIST LIAISON 50 mg Given 01/30/2024 8:40 AM METEOROLOGIST LIAISON 50 mg methylPREDNISolone Na Suc (PF) (Solu-MEDROL) injection 125 mg 125 mg, Intravenous, ONCE, 1 dose, On Mon01/29/24 at 1530 Given 01/29/2024 3:19 PM METEOROLOGIST LIAISON 125 mg methylPREDNISolone Na Suc (PF) (Solu-MEDROL) injection 40 mg 40 mg, Intravenous, DAILY, First dose on Mon01/30/24 at 0900, Until Discontinued Given 02/01/2024 9:03 AM METEOROLOGIST LIAISON 40 mg Given 01/31/2024 8:43 AM METEOROLOGIST LIAISON 40 mg Given 01/30/2024 8:39 AM METEOROLOGIST LIAISON 40 mg methylPREDNISolone Na Suc (PF) (Solu-MEDROL) injection 62.5 mg 62.5 mg, Intravenous, ONCE, 1 dose, On Mon01/31/24 at 1500 Given 01/31/2024 2:48 PM METEOROLOGIST LIAISON 62.5 mg metoprolol Succinate (TOPROL-XL) XL tablet 50 mg 50 mg, Oral, DAILY, First dose on Mon01/29/24 at 1730, Until Discontinued, Do Not Crush Given 02/01/2024 9:02 AM METEOROLOGIST LIAISON 50 mg Given 01/31/2024 8:45 AM METEOROLOGIST LIAISON 50 mg Given 01/30/2024 8:40 AM METEOROLOGIST LIAISON 50 mg metoprolol tartrate (LOPRESSOR) injection 2.5 mg 2.5 mg, Intravenous, ONCE, 1 dose, On Mon01/29/24 at 1800, Notify provider after one time dose given if tachycardia. Scheduled IV lopressor is permitted on general care units with house-wide telemetry.Bedside cardiac monitoring is required for PRN use and Once orders. In all cases, vitals should be taken before administration and 15 minutes after each dose. Administer by slow IV push over 5 minutes. Notify provider if patient is taking enteral medications so patient can be considered for transition off intravenous beta-pedro. Given 01/29/2024 5:29 PM METEOROLOGIST LIAISON 2.5 mg pantoprazole (PROTONIX) tablet 40 mg 40 mg, Oral, EVERY MORNING BEFORE BREAKFAST, First dose on Mon01/30/24 at 0730, Until Discontinued, Indications: Symptomatic Gastroesophageal Reflux DiseaseIndications:Symptomatic Gastroesophageal Reflux Disease Given 02/01/2024 7:08 AM METEOROLOGIST LIAISON 40 mg Given 01/31/2024 7:34 AM METEOROLOGIST LIAISON 40 mg Given 01/30/2024 8:40 AM METEOROLOGIST LIAISON 40 mg simvastatin (ZOCOR) tablet 10 mg 10 mg, Oral, EVERY EVENING, First dose on Mon01/29/24 at 1800, Until Discontinued Given 01/31/2024 5:07 PM METEOROLOGIST LIAISON 10 mg Given 01/30/2024 5:35 PM METEOROLOGIST LIAISON 10 mg Given 01/29/2024 5:29 PM METEOROLOGIST LIAISON 10 mg sodium chloride 0.9 % 1,000 mL IV bolus Intravenous, ONCE, 1 dose, On Mon01/29/24 at 1000, Administer over 1 Hours New Bag 01/29/2024 9:18 AM METEOROLOGIST LIAISON 1000 mL/hr sodium chloride 0.9 % 750 mL IV bolus 750 mL, Intravenous, ONCE, 1 dose, On Mon01/29/24 at 1000, Administer over 0.375 Hours, Patient is Obese (Body mass index is 51.21 kg/m??.). [place] Body Weight (50.1kg) is used for goal volume (1503 ml) calculation. New Bag 01/29/2024 9:56 AM METEOROLOGIST LIAISON 500 mL 2000 mL/ hr traZODone (DESYREL) tablet 100 mg 100 mg, Oral, NIGHTLY, First dose on Mon01/29/24 at 2100, Until Discontinued Given 01/31/2024 9:26 PM METEOROLOGIST LIAISON 100 mg Given 01/30/2024 9:30 PM METEOROLOGIST LIAISON 100 mg Given 01/29/2024 9:08 PM METEOROLOGIST LIAISON 100 mg triamterene-hydrochlorothiazide (MAXZIDE) 37.5-25 MG per tablet 1 Tablet 1 Tablet, Oral, EVERY MORNING, First dose on Mon01/29/24 at 1730, Until Discontinued Given 02/01/2024 9:00 A M METEOROLOGIST LIAISON 1 Tablet Given 01/31/2024 8:45 AM METEOROLOGIST LIAISON 1 Tablet Given 01/30/2024 8:39 AM METEOROLOGIST LIAISON 1 Tablet documented in this encounter Active and Recently Administered Medications Times are shown in METEOROLOGIST LIAISON. Scheduled Medication Order 01/30/2024 01/31/2024 02/01/2024 albuterol (PROVENTIL, VENTOLIN) (2.5 MG/3ML) 0.083% nebulizer solution 2.5 mg (CANCELED) 2.5 mg, Nebulization, 3 TIMES DAILY, First dose on Mon01/30/24 at 0800, Until Discontinued, For RTA Severity Level 2 0030 (Canceled Entry - Provider: Sharri Zapata CRT - Comment: Med schedule change. tx given prior)0753 (Given - Provider: Leticia Brasher, RT)1315 (Given - Provider: Sujata Crenshaw, CONDEMNATION ENGINEER)1943 (Given - Provider: Sharri Zapata, JOEL) 0707 (Given - Provider: Molly Clarke, JANICE) albuterol (PROVENTIL, VENTOLIN) (2.5 MG/3ML) 0.083% nebulizer solution 2.5 mg 2.5 mg, Nebulization, 3 TIMES DAILY, First dose on Mon02/01/24 at 1300, Until Discontinued, For RTA Severity Level 2 1200 (Due - Provider: Savanna Siu, RN) ARIPiprazole extended release (ABILIFY MAINTENA) injection 400 mg 400 mg, Intramuscular, EVERY 28 DAYS, First dose on Mon01/29/24 at 1730, Until Discontinued azithromycin (ZITHROMAX) tablet 250 mg 250 mg, Oral, DAILY, First dose on Mon01/30/24 at 0900, Until Discontinued, Indications: Community Acquired Pneumonia 0839 (Given - Provider: Tanja Miller RN) 0845 (Given - Provider: Savanna Siu, AGUILA) 09 (Given - Provider: Yenifer Ayala, Student) benztropine (COGENTIN) tablet 0.5 mg 0.5 mg, Oral, NIGHTLY, First dose on Mon01/29/24 at 2100, Until Discontinued 2129 (Given - Provider: Ryan Hernandez, AGUILA) 2125 (Given - Provider: Ryan Hernandez, AGUILA) cefTRIAXone (ROCEPHIN) injection 2 g 2 g, Intravenous, EVERY 24 HOURS, 5 doses, First dose on Mon01/29/24 at 1530, Last dose on Mon02/02/24 at 1530, If patient hemodynamically stable at 48 hours change ceftriaxone to oral beta-lactam for remainder of 5 day treatment., Indications: Community Acquired Pneumonia 1457 (Given - Provider: Tanja Miller RN) 1448 (Given - Provider: Savanna Siu RN) DULoxetine (CYMBALTA) capsule 90 mg 90 mg, Oral, DAILY, First dose on Mon01/29/24 at 1730, Until Discontinued, Do Not Crush 0839 (Given - Provider: Tanja Miller RN) 0845 (Given - Provider: Savanna Siu RN) 09 (Given - Provider: Yenifer Ayala, Christophe) enoxaparin (LOVENOX) injection 40 mg 40 mg, Subcutaneous, EVERY 12 HOURS SCHEDULED, First dose on Mon01/29/24 at 2100, Until Discontinued 0839 (Given - Provider: Tanja Miller RN)2129 (Given - Provider: Ryan Hernandez, AGUILA) 0846 (Given - Provider: Savanna Siu, AGUILA)2125 (Given - Provider: Ryan Hernandez, AGUILA) 09 (Given - Provider: Yenifer Ayala, Christophe) furosemide (LASIX) injection 20 mg (COMPLETED) 20 mg, Intravenous, ONCE, 1 dose, On Mon01/31/24 at 1730 1725 (Given - Provider: Savanna Siu, AGUILA) gabapentin (NEURONTIN) capsule 900 mg 900 mg, Oral, 3 TIMES DAILY, First dose on Mon01/29/24 at 2100, Until Discontinued, Do Not Crush 0839 (Given - Provider: Tanja Miller RN)1415 (Given - Provider: Tanja Miller RN)2130 (Given - Provider: Ryan Hernandez, AGUILA) 0845 (Given - Provider: Savanna Siu, AGUILA)1448 (Given - Provider: Savanna Siu RN)2126 (Given - Provider: yRan Hernandez RN) 0901 (Given - Provider: Christophe Barajas) hydroCHLOROthiazide tablet 25 mg 25 mg, Oral, DAILY, First dose on Mon01/29/24 at 1730, Until Discontinued 0840 (Given - Provider: Tanja Miller RN) 0845 (Given - Provider: Savanna Siu RN) 0900 (Given - Provider: Christophe Barajas) insulin glargine (LANTUS) 100 UNIT/ML injection 40 Units 40 Units, Subcutaneous, EVERY MORNING, First dose on Mon01/29/24 at 1730, Until Discontinued 0840 (Given - Provider: Tanja Miller RN) 0846 (Given - Provider: Savanna Siu RN) 0905 (Given - Provider: Christophe Barajas) insulin lispro (HumaLOG) 100 UNIT/ML injection 13 Units 13 Units (rounded from 12.7 Units = 0.1 Units/kg ? 127 kg), Subcutaneous, DAILY AFTER BREAKFAST, First dose on Mon01/30/24 at 0900, Until Discontinued, Give immediately after the meal (to be given together with correction dose). Decrease MEAL/PRANDIAL/NUTRITIONAL dose by 50% when less than 50% is eaten. If patient does not eat, DO NOT give MEAL/PRANDIAL/NUTRITIONAL insulin, but still give CORRECTION insulin based on mealtime capillary blood glucose. Round down partial doses to the nearest unit. 0849 (Given - Provider: Tanja Miller RN) 0900 (Not Given - Provider: Savanna Siu RN - Reason: Patient/family refused)1124 (Given - Provider: Savanna Siu RN) 0925 (Given - Provider: Yenifer M Jamie, Student) insulin lispro (HumaLOG) 100 UNIT/ML injection 13 Units 13 Units (rounded from 12.7 Units = 0.1 Units/kg ? 127 kg), Subcutaneous, DAILY AFTER LUNCH, First dose on Mon01/30/24 at 1300, Until Discontinued, Give immediately after the meal (to be given together with correction dose). Decrease MEAL/PRANDIAL/NUTRITIONAL dose by 50% when less than 50% is eaten. If patient does not eat, DO NOT give MEAL/PRANDIAL/NUTRITIONAL insulin, but still give CORRECTION insulin based on mealtime capillary blood glucose. Round down partial doses to the nearest unit. 1203 (Given - Provider: Tanja Miller RN) 1200 (Canceled Entry - Provider: Savanna Siu, AGUILA) 1144 (Given - Provider: Savanna Siu RN) insulin lispro (HumaLOG) 100 UNIT/ML injection 13 Units 13 Units (rounded from 12.7 Units = 0.1 Units/kg ? 127 kg), Subcutaneous, DAILY AFTER DINNER, First dose on Mon01/29/24 at 1800, Until Discontinued, Give immediately after the meal (to be given together with correction dose). Decrease MEAL/PRANDIAL/NUTRITIONAL dose by 50% when less than 50% is eaten. If patient does not eat, DO NOT give MEAL/PRANDIAL/NUTRITIONAL insulin, but still give CORRECTION insulin based on mealtime capillary blood glucose. Round down partial doses to the nearest unit. 1737 (Given - Provider: Tanja Miller RN) 1707 (Given - Provider: Savanna Siu, AGUILA) insulin lispro (HumaLOG) 100 UNIT/ML injection 2-12 Units 2-12 Units, Subcutaneous, 3 TIMES DAILY AFTER MEALS, First dose on Mon01/29/24 at 1800, Until Discontinued, If BS is: 70-180 give no correction Insulin; 181-200 give 2 Unit; 201-250 give 4 Units; 251-300 give 6 Units; 301-350 give 8 Units; 351-400 give 10 Units; 401 or greater give 12 units and call physician. 0848 (Given - Provider: Tanja Miller RN)1203 (Given - Provider: Tanja Miller RN)1737 (Given - Provider: Tanja Miller RN) 0900 (Not Given - Provider: Savanna Siu RN - Reason: Order parameters not met)1200 (Given - Provider: Savanna Siu RN)1707 (Given - Provider: Savanna Siu RN) 0900 (Not Given - Provider: Christophe Barajas - Reason: Order parameters not met)1145 (Given - Provider: Savanna Siu RN) insulin lispro (HumaLOG) 100 UNIT/ML injection 2-6 Units 2-6 Units, Subcutaneous, NIGHTLY, First dose on Mon01/29/24 at 2100, Until Discontinued, If BS is: 70-200 give no correction Insulin; 201-250 give 2 units; 251-300 give 3 units; 301-350 give 4 units; 351-400 give 5 units; 401 or greater give 6 units and call physician. 2129 (Given - Provider: Ryan Hernandez RN) 2126 (Given - Provider: Ryan Hernandez, AGUILA) levothyroxine (SYNTHROID) tablet 50 mcg 50 mcg, Oral, EVERY MORNING BEFORE BREAKFAST, First dose on Mon01/30/24 at 0730, Until Discontinued 0840 (Given - Provider: Tanja Miller RN) 0734 (Given - Provider: Savanna Siu RN) 0707 (Given - Provider: Savanna Siu RN) losartan (COZAAR) tablet 50 mg 50 mg, Oral, DAILY, First dose on Mon01/29/24 at 1730, Until Discontinued 0840 (Given - Provider: Tanja Miller, AGUILA) 0845 (Given - Provider: Savanna Siu RN) 0902 (Given - Provider: Yenifer Ayala, Student) methylPREDNISolone Na Suc (PF) (Solu-MEDROL) injection 40 mg 40 mg, Intravenous, DAILY, First dose on Mon01/30/24 at 0900, Until Discontinued 0839 (Given - Provider: Tanja Miller RN) 0843 (Given - Provider: Savanna Siu RN) 0903 (Given - Provider: Yenifer Ayala, Christophe) methylPREDNISolone Na Suc (PF) (Solu-MEDROL) injection 62.5 mg (COMPLETED) 62.5 mg, Intravenous, ONCE, 1 dose, On Mon01/31/24 at 1500 1448 (Given - Provider: Savanna Siu RN) metoprolol Succinate (TOPROL-XL) XL tablet 50 mg 50 mg, Oral, DAILY, First dose on Mon01/29/24 at 1730, Until Discontinued, Do Not Crush 0840 (Given - Provider: Tanja Miller, AGUILA) 0845 (Given - Provider: Savanna Siu, RN) 0902 (Given - Provider: Yenifer Ayala, Student) pantoprazole (PROTONIX) tablet 40 mg 40 mg, Oral, EVERY MORNING BEFORE BREAKFAST, First dose on Mon01/30/24 at 0730, Until Discontinued, Indications: Symptomatic Gastroesophageal Reflux Disease 0840 (Given - Provider: Tanja Miller, AGUILA) 0734 (Given - Provider: Savanna Siu, AGUILA) 0708 (Given - Provider: Savanna Siu, AGUILA) simvastatin (ZOCOR) tablet 10 mg 10 mg, Oral, EVERY EVENING, First dose on Mon01/29/24 at 1800, Until Discontinued 173 (Given - Provider: Tanja Miller RN) 170 (Given - Provider: Savanna Siu, AGUILA) traZODone (DESYREL) tablet 100 mg 100 mg, Oral, NIGHTLY, First dose on Mon01/29/24 at 2100, Until Discontinued 0 (Given - Provider: Ryan Hernandez RN) 2125 (Given - Provider: yRan Hernandez, AGUILA) triamterene-hydrochlorothi azide (MAXZIDE) 37.5-25 MG per tablet 1 Tablet 1 Tablet, Oral, EVERY MORNING, First dose on Mon01/29/24 at 1730, Until Discontinued 0839 (Given - Provider: Tanja Miller RN) 0845 (Given - Provider: Savanna Siu, AGUILA) 0900 (Given - Provider: Yenifer Ayala, Student) PRN Medication Order 01/30/2024 01/31/2024 02/01/2024 acetaminophen (TYLENOL) tablet 650 mg 650 mg, Oral, EVERY 8 HOURS PRN, Starting on Mon01/29/24 at 1458, Until Natalie 02/01/24 at 1453, Fever, temp x>100.2 F, Maximum dose of acetaminophen is 4000 mg from all sources in 24 hours. albuterol (PROVENTIL, VENTOLIN) (2.5 MG/3ML) 0.083% nebulizer solution 2.5 mg (CANCELED) 2.5 mg, Nebulization, EVERY 6 HOURS PRN, Starting on Mon01/31/24 at 0817, Until Mon02/01/24 at 0835, Wheezing, 1. For RTA Severity Level 1 2. Discontinue all albuterol and ipratropium ORDERS AND ORDER SET if assessment results for 2 consecutive days has been a level 1 and no PRN treatments have been administered in the same time period. 3. A new physician order is required to resume order set once discontinued. 1933 (Given - Provider: Sharri Zapata, ANSWERING SERVICE AGENT) 404 (Given - Provider: Rachael Pederson, JANICE) albuterol (PROVENTIL, VENTOLIN) (2.5 MG/3ML) 0.083% nebulizer solution 2.5 mg 2.5 mg, Nebulization, EVERY 6 HOURS PRN, Starting on Mon02/01/24 at 0834, Until Mon02/01/24 at 1453, Wheezing, Shortness of Breath, For RTA Severity Level 2 benzonatate (TESSALON) capsule 100 mg (CANCELED) 100 mg, Oral, 3 TIMES DAILY PRN, Starting on Mon01/29/24 at 1457, Until Mon01/30/24 at 1729, Cough, Swallow capsule whole (do not break, chew, dissolve, cut, or crush). If capsules are chewed or dissolved in the mouth, oral mucosa anesthesia may occur and could lead to choking. If numbness or tingling of the tongue, mouth, throat, or face occurs, refrain from oral ingestion of food or liquid until numbness has resolved. 0840 (Given - Provider: Tanja Miller RN)145 (Given - Provider: Tanja Miller RN) benzonatate (TESSALON) capsule 100 mg 100 mg, Oral, 3 TIMES DAILY PRN, Starting on Mon01/30/24 at 1729, Until Mon02/01/24 at 1453, Cough, Swallow capsule whole (do not break, chew, dissolve, cut, or crush). If capsules are chewed or dissolved in the mouth, oral mucosa anesthesia may occur and could lead to choking. If numbness or tingling of the tongue, mouth, throat, or face occurs, refrain from oral ingestion of food or liquid until numbness has resolved. dextrose 50 % solution 12.5 g(Linked Group 1) 12.5 g, Intravenous, PRN, Starting on Mon01/29/24 at 1655, Until Natalie 12 at 1453, Low blood sugar, If IV patent in patient with blood glucose of 50 or less, or Unconscious, Conscious but NPO or Unable to Swallow regardless of blood glucose, administer 1 dose of dextrose 50% solution. Glucagon Emergency injection KIT 1 mg(Linked Group 1) 1 mg, Intramuscular, PRN, Starting on Mon01/29/24 at 1655, Until Natalie 12 at 1453, If patient has no intravenous access and blood glucose of 50 or less, or Unconscious, Conscious but NPO or Unable to Swallow regardless of blood glucose administer 1 dose of glucagon. Glucagon may cause vomiting. Position patient on the side., Other, Low blood sugar Glucagon Emergency injection KIT 1 mg(Linked Group 1) 1 mg, Subcutaneous, PRN, Starting on Mon01/29/24 at 1655, Until Natalie 12 at 1453, If patient has no intravenous access and blood glucose of 50 or less, or Unconscious, Conscious but NPO or Unable to Swallow regardless of blood glucose administer 1 dose of glucagon. Glucagon may cause vomiting. Position patient on the side., Other, Low blood sugar glucose (GLUTOSE) 40 % gel GEL 15 g(Linked Group 1) 15 g, Oral, PRN, Starting on Mon01/29/24 at 1655, Until Natalie 12 at 1453, Low blood sugar, Dose is based on glucose. 37.5 g tube = 15 GRAMS of GLUCOSE. For 15 GRAM GLUCOSE dose, give entire 37.5 g size tube. Administer 1 dose if patient is unable to take food, but conscious and able to swallow. guaiFENesin (MUCINEX) SR tablet 600 mg 600 mg, Oral, EVERY 12 HOURS PRN, Starting on Mon01/29/24 at 1457, Until Natalie 12 at 1453, Congestion, Do Not Crush guaiFENesin (MUCINEX) SR tablet 600 mg 600 mg, Oral, EVERY 12 HOURS PRN, Starting on Mon01/29/24 at 1652, Until Natalie 02/01/24 at 1453, Congestion, Do Not Crush 0840 (Given - Provider: Tanja Miller RN) 0357 (Given - Provider: Ryan Hernandez, RN) hydrALAZINE (APRESOLINE) injection 5 mg 5 mg, Intravenous, EVERY 6 HOURS PRN, Starting on Mon01/29/24 at 1721, Until Natalie 02/01/24 at 1453, High Blood Pressure - 1st line, SBP x>160 OR DBP x>100 HYDROcodone-acetaminophe n (NORCO) 5-325 MG per tablet 1 Tablet 1 Tablet, Oral, EVERY 4 HOURS PRN, Starting on Mon01/31/24 at 0612, Until Mon02/01/24 at 1453, Moderate pain or more severe pain if patient requests, Maximum dose of acetaminophen is 4000 mg from all sources in 24 hours.If pain not effectively managed, then contact provider to discuss possibly 1) adding scheduled opioid dosing or non-opioid pain treatments, 2) increasing dosage, or 3) changing to CONVENTIONAL MORTGAGE UNDERWRITER. 0632 (Given - Provider: Ryan Hernandez, AGUILA) Linked Groups Order Group 1: glucose (GLUTOSE) 40 % gel GEL 15 gJump to med 15 g, Oral, PRN, Starting on Mon01/29/24 at 1655, Until Natalie 02/01/24 at 1453, Low blood sugar, Dose is based on glucose. 37.5 g tube = 15 GRAMS of GLUCOSE. For 15 GRAM GLUCOSE dose, give entire 37.5 g size tube. Administer 1 dose if patient is unable to take food, but conscious and able to swallow. Or dextrose 50 % solution 12.5 gJump to med 12.5 g, Intravenous, PRN, Starting on Mon01/29/24 at 1655, Until Natalie 02/01/24 at 1453, Low blood sugar, If IV patent in patient with blood glucose of 50 or less, or Unconscious, Conscious but NPO or Unable to Swallow regardless of blood glucose, administer 1 dose of dextrose 50% solution. Or Glucagon Emergency injection KIT 1 mgJump to med 1 mg, Intramuscular, PRN, Starting on Mon01/29/24 at 1655, Until Natalie 02/01/24 at 1453, If patient has no intravenous access and blood glucose of 50 or less, or Unconscious, Conscious but NPO or Unable to Swallow regardless of blood glucose administer 1 dose of glucagon. Glucagon may cause vomiting. Position patient on the side., Other, Low blood sugar Or Glucagon Emergency injection KIT 1 mgJump to med 1 mg, Subcutaneous, PRN, Starting on 01/29/24 at 1655, Until Natalie 02/01/24 at 1453, If patient has no intravenous access and blood glucose of 50 or less, or Unconscious, Conscious but NPO or Unable to Swallow regardless of blood glucose administer 1 dose of glucagon. Glucagon may cause vomiting. Position patient on the side., Other, Low blood sugar documented in this encounter Additional Health Concerns Infection Onset Date Last Indicated Resolved Time COVID - 19 01/29/2024 01/29/2024 01/29/2024 10:1 1 AM METEOROLOGIST LIAISON documented as of this encounter Care Teams Handle Maker Relationship Specialty Start Date End Date Daja Carballo MD [address] [place] [address] PCP - General Internal Medicine 03/13/15 Baron Vergara MD [address] [place] [address] Consulting Physician Pulmonary Disease 06/26/23 documented as of this encounter
--- OUTSIDE RECORDS SUMMARY | 2024-03-03 19:25 | XMS_ITS | Encounter Summary ---
Author Organization [facility] Address [address] [place] [address] Phone Care Team Providers Care On Car Supervisor Name Role Phone Daja Kern MD Primary Care Provider [phone] Baron Vergara MD Unavailable Encounter Details Date Type Department Care Team (Late st Contact Info) Description 01/23/2024 1:12 PM MOVE COORDINATOR - 01/23/2024 1:41 PM MOVE COORDINATOR Emergency [facility] Emergency [address] [place] [address] Discharge Disposition: LWBS Social History Tobacco Use Types Packs/Day Years Used Date Smoking Tobacco: Never Smokeless Tobacco: Never Alcohol Use Standard Drinks/Week Comments No 0 (1 standard drink = 0.6 oz pur e alcohol) [facility] Utilities Answer Date Recorded In the past 12 months has [employer], gas, oil, or water [employer] threatened to shut off services in your home? Patient declined 05/22/2023 Social Connection and Isolation Panel [NHANES] A nswer Date Recorded In a typical week, how many times do you talk on the phone with family, friends, or neighbors? Patient declined 05/22/2023 How often do you get togethe r with friends or relatives? Patient declined 05/22/2023 How often do you attend samaritan or yazidi serv ices? Patient declined 05/22/2023 Do you belong to any clubs o r organizations such as samaritan groups, unions, fraternal or athletic groups, or [...] medical care, and heating? Patient declined 05/22/2023 [facility] - Occupational [...] place to sleep or slept in a group home (including now)? Patient declined 05/22/2023 Sexually Active [...] morning. ALBUTEROL IN take by inhalation. 01/29/20 24 folic acid (FOLVITE) 1 MG Tablet Take [...] 01/29/20 24 documented as of this encounter ED Notes * Sandra Martinez RN - 01/23/2024 1:40 PM CST Patient not present for triage call #1. Per sheri, patient LWBS. COORDINATOR documented in this encounter Plan of Treatment Upcoming Encounters Date Type Department Care Team (Late st Contact Info) Description 03/27/2024 8:30 AM MOVE COORDINATOR [facility] [address] [place] [address] Burt Eastman MD [address] [address] 03/27/2024 8:30 AM MOVE COORDINATOR - 03/27/2024 9:00 AM MOVE COORDINATOR [facility] [address] [place] [address] Burt Eastman MD [address] [address] COLONOSCOPY 04/09/2024 1:15 PM MOVE COORDINATOR Office Visit [facility] Medical [facility] - Pulmonology & Sleep Medicine [facility] [address] [place] [address] Baron Vergara MD [address] [place] [address] Scheduled Procedures Name Priority Associated Diagnoses Date/Ti me COLONOSCOPY HISTORY OF COLON POLYPS 03/27/2024 8:30 AM MOVE COORDINATOR documented as of this encounter Visit Diagnoses Not on filedocumented in this encounter Care Teams On Car Supervisor Relationship Specialty Start Date End Date Daja Kern MD [address] [place] [address] PCP - General Internal Medicine 03/13/15 Baron Vergara MD [address] [place] [address] Consulting Physician Pulmonary Disease 06/26/23 documented as of this encounter
--- OUTSIDE RECORDS SUMMARY | 2024-03-03 19:25 | XMS_ITS | Encounter Summary ---
Author Organization [facility] Address [address] [place] [address] Phone Care Team Providers Care [employer] Professional Name Role Phone Daja Kern MD Primary Care Provider [phone] Baron Vergara MD Unavailable Encounter Details Date Type Department Care Team (Late st Contact Info) Description 01/12/2024 5:21 PM ACCOUNT SUPPORT SPECIALIST - 01/12/2024 7:04 PM ACCOUNT SUPPORT SPECIALIST Emergency [facility] Emergency 1 [place] [address] Discharge Disposition: LWBS Social History Tobacco Use Types Packs/Day Years Used Date Smoking Tobacco: Never Smokeless Tobacco: Never Alcohol Use Standard Drinks/Week Comments No 0 (1 standard drink = 0.6 oz pur e alcohol) [facility] Utilities Answer Date Recorded In the past 12 months has [employer], gas, oil, or water [id number] threatened to shut off services in your home? Patient declined 05/22/2023 Social Connection and Isolation Panel [NHANES] A nswer Date Recorded In a typical week, how many times do you talk on the phone with family, friends, or neighbors? Patient declined 05/22/2023 How often do you get togethe r with friends or relatives? Patient declined 05/22/2023 How often do you attend episcopal or mandaeism serv ices? Patient declined 05/22/2023 Do you belong to any clubs o r organizations such as episcopal groups, unions, fraternal or athletic groups, or [...] medical care, and heating? Patient declined 05/22/2023 [facility] - Occupational Stress [...] place to sleep or slept in a residential (including now)? Patient declined 05/22/2023 Sexually Active [...] as of this encounter ED Notes * Concepcion Carmichael RN - 01/12/2024 7:03 PM CST Pt called x2 without response to triage. LWBS. UNT SUPPORT SPECIALIST documented in this encounter Plan of Treatment Upcoming Encounters Date Type Department Care Team (Late st Contact Info) Description 03/27/2024 8:30 AM ACCOUNT SUPPORT SPECIALIST [facility] [address] [place] [address] Burt Eastman MD [address] [address] 03/27/2024 8:30 AM ACCOUNT SUPPORT SPECIALIST - 03/27/2024 9:00 AM ACCOUNT SUPPORT SPECIALIST [facility] Per[facility] [address] [place] [address] Burt Eastman MD [address] [address] COLONOSCOPY 04/09/2024 1:15 PM ACCOUNT SUPPORT SPECIALIST [facility] - Pulmonology & Sleep Medicine [facility] [address] [place] [address] Baron Vergara MD [address] [place] [address] Scheduled Procedures Name Priority Associated Diagnoses Date/Ti me COLONOSCOPY HISTORY OF COLON POLYPS 03/27/2024 8:30 AM ACCOUNT SUPPORT SPECIALIST documented as of this encounter Visit Diagnoses Not on filedocumented in this encounter Care Teams [employer] Parts Professional Relationship Specialty Start Date End Date Daja Kern MD [address] [place], [place] [id number] PCP - General Internal Medicine 03/13/15 Baron Vergara MD [address] [place] [address] Consulting Physician Pulmonary Disease 06/26/23 documented as of this encounter
--- OUTSIDE RECORDS SUMMARY | 2024-03-03 19:25 | XMS_ITS | Encounter Summary ---
Author Organization [facility] Address [address] [place] [address] Phone Care Team Providers Care Scheduling Clerk Name Role Phone Daja Kern MD Primary Care Provider [phone] Baron Vergara MD Unavailable Reason for Referral * Other (Routine) - Closed Specialty Diagnoses / Procedures Referred By Ladi aguilar Referred To Contact Gastroenterology Diagnoses History of colon polyps Procedures GASTRO PROCEDURE Nidhi Camargo APRN, CNP [address] [place] [address] Phone: tel: fax: Referral ID Status Reason Start Date Expiration Date Visits Re quested Visits Authorized [id number] Closed 11/10/2023 1 1 Reason for Visit * Reason Onset Date Comments Need Order 11/09/2023 Procedure 11/09/2023 Encounter Details Date Type Department Care Team (Late st Contact Info) Description 11/09/2023 [facility]phone [facility] - Gastroenterology - [place] [address] [place] [address] Nidhi Camargo APRN, TOXICOLOGY TEACHER [address] [place], [place] [id number] Need Order; Procedure Social History Tobacco Use Types Packs/Day Years [...] declined 05/22/2023 How often do you attend yazidism or christianity serv ices? Patient declined 05/22/2023 Do you belong to any clubs o r organizations such as yazidism groups, unions, fraternal or athletic groups, or [...] as of this encounter Miscellaneous Notes * Addendum Note - Nidhi Camargo APRN, DAVID - 11/10/2023 4:06 PM CDT Addended by: NIDHI CAMARGO on: 11/10/2023 04:06 PM Modules accepted: Orders * Addendum Note - Krystal Parsons RN - 11/10/2023 3:59 PM CDTAddended by: KRYSTAL PARSONS on: 11/10/2023 03:59 PM Modules accepted: Orders * Telephone Encounter - Krystal Parsons RN - 11/10/2023 3:57 PM CDT Colonoscopy order pended, please review. Patient received a recall letter. Damian Gallardo DO 11/20/2018 8:50 AM CDT Polyps show no cancer. Recheck colonoscopy in 5 years or so. [id number] Specimen Collection Information ID Source Type Collected By Time Frozen A Colon Tissue Damian Gallardo, DO 11/16/18 0844 No Description: SIGMOID POLYP B Colon Tissue Damian Gallardo, DO 11/16/18 0858 No Description: HEPATIC FLEXURE POLYP C Colon Tissue Damian Gallardo, DO 11/16/18 0903 No Description: RANDOM RIGHT COLON BIOPSIES D Colon Tissue Damian Gallardo, DO 11/16/18 0917 No Description: DISTAL DESCENDING POLYP Additional Information Comments: Requisition Comments Pre-Op Diagnosis: diarrhea Procedure Performed: Procedure(s): COLONOSCOPY - POLYPS, BIOPSIES Pathology Study: Examination Specimen Disposition: Lab Specimen Accuracy Confirmed: MD Result Copy To: Pathology Surgical: [id number] Order: [id number] Collected 11/16/2018 08:44 Status: Final result Visible to patient: Yes (not seen) 2 Result Notes 1 Follow-up Encounter Component Final Diagnosis A. Colon, sigmoid, polyp, biopsy: - Hyperplastic polyp. B. Colon, hepatic flexure, polyp, biopsy: - Hyperplastic polyp. C. Colon, random right biopsies: - Benign colonic mucosa with no significant histopathological changes. - Prominent lymphoid aggregates noted. - Negative for dysplasia or malignancy. D. Colon, distal descending, polyp, biopsy: - Hyperplastic polyp. at 1043 Clinical Information 47 year old female. Pre-Operative Diagnosis diarrhea Gross Description The specimens present in four formalin containers labeled with the patient's name, Alona Kemp. PART A: The specimen is designated as sigmoid colon polyp . In formalin is a single piece of pink-alicea to yellow-alicea tissue measuring 7 mm in greatest dimension. It will be inked with hematoxylin andall submitted in cassette A1 . PART B: The specimen is designated as hepatic flexure polyp . In formalin is a single piece of pink-alicea to yellow-alicea tissue measuring 5 mm in greatest dimension. It will be inked with hematoxylin and all submitted in cassette B1 . PART C: The specimen is designated as random right colon biopsies . In formalin are five pieces ofpink-alicea to yellow-alicea tissue measuring from a fraction of a millimeter up to 4 mm in greatest dimension. They will be inked with hematoxylin and all submitted in cassette C1 . Please note it is questionable whether or not all tissue will survive processing. PART D: The specimen is designated as distal descending colon polyp . In formalin are five pieces of pink-alciea to yellow-alicea tissue measuring from a fraction of a millimeter up to 7 mm in greatest dimension. They will be inked with hematoxylin and all submitted in cassette D1 . Please note it is qu estionable whether or not all tissue will survive processing. CP/dv * Telephone Encounter - Radha De Souza - 11/09/2023 9:51 AM CDT Patient received recall letter for colonoscopy Please place a new order. documented in this encounter Plan of Treatment Upcoming Encounters Date Type Department Care Team (Late st Contact Info) Description 03/27/2024 8:30 AM TEACHER AIDE CLERICAL Hospital Encounter [facility] Gi Lab Periop [address] [place] [address] Burt Eastman MD [address] [address] 03/27/2024 8:30 AM TEACHER AIDE CLERICAL - 03/27/2024 9:00 AM TEACHER AIDE CLERICAL [facility] Per[facility] 1 [place] [address] Burt Eastman MD [address] [address] COLONOSCOPY 04/09/2024 1:15 PM TEACHER AIDE CLERICAL Office Visit [facility] - Pulmonology & Sleep Medicine [facility] [address] [place] [address] Baron Vergara MD [address] [place] [phone] Scheduled Orders Name Type Priority Associated Diagnoses Orde r Schedule GASTRO PROCEDURE Procedures Routine History of colon polyps Expected: 11/10/2023 (Approximate), Expires: 11/09/2024 Scheduled Procedures Name Priority Associated Diagnoses Date/Ti me COLONOSCOPY HISTORY OF COLON POLYPS 03/27/2024 8:30 AM TEACHER AIDE CLERICAL documented as of this encounter Visit Diagnoses Diagnosis History of colon polyps- Primary Personal history of colonic polyps documented in this encounter Care Teams Scheduling Clerk Relationship Specialty Start Date End Date Daja Kern MD [address] [place] [address] PCP - General Internal Medicine 03/13/15 Baron Vergara MD [address] [place] [address] Consulting Physician Pulmonary Disease 06/26/23 documented as of this encounter
--- OUTSIDE RECORDS SUMMARY | 2024-03-03 19:25 | XMS_ITS | Encounter Summary ---
Author Organization [facility] Address [address] [place] [address] Phone Care Team Providers Care Control Electrician Name Role Phone Daja Kern MD Primary Care Provider [phone] Baron Vergara MD Unavailable Reason for Referral * Radiology Services (Routine) - Closed Specialty Diagnoses / Procedures Referred By Contac t Referred To Contact Radiology Diagnoses Breast pain, left Procedures KIMBERLY DIAG BILATERAL DIGITAL W CAD W Trupti Ramirez MD [address] [place] [address] Phone: tel: fax: Referral ID Status Reason Start Date Expiration Date Visits Re quested Visits Authorized [id number] Closed 10/05/2023 1 1 Reason for Visit * Radiology Services (Routine) - Closed Specialty Diagnoses / Procedures Referred By Contac t Referred To Contact Radiology Diagnoses Breast pain, left Procedures KIMBERLY DIAG BILATERAL DIGITAL W CAD W Trupti Ramirez MD [address] [place] [address] Phone: tel: fax: Referral ID Status Reason Start Date Expiration Date Visits Re quested Visits Authorized [id number] Closed 10/05/2023 1 1 Encounter Details Date Type Department Care Team (Latest Contact Info) Description 11/16/2023 12:55 PM CDT - 11/16/2023 1:55 PM CDT Hospital Encounter [facility] Mammography [address] [place] [address] Trupti Mejia MD [address] [place] [address] Discharge Disposition: Discharged to home or Selfcare Social History Tobacco Use Types Packs/Day Years Used Date Smoking Tobacco: Never Smokeless Tobacco: Never Alcohol Use Standard Drinks/Week Comments No 0 (1 standard drink = 0.6 oz pur e alcohol) [facility] Utilities Answer Date Recorded In the past 12 months has [employer], gas, oil, or water company threatened [...] How often do you attend samaritan or buddhist serv ices? Patient declined 05/22/2023 Do you [...] medical care, and heating? Patient declined 05/22/2023 [facility] of Occupat ional Health - Occupational Stress [...] place to sleep or slept in a penitentiary (including now)? Patient declined 05/22/2023 Sexually Active [...] st Contact Info) Description 03/27/2024 8:30 AM ELECTRICIAN SUPERVISOR SUBSTATION [facility] 1 [place] [address] Burt Eastman MD [address] [address] 03/27/2024 8:30 AM ELECTRICIAN SUPERVISOR SUBSTATION - 03/27/2024 9:00 AM ELECTRICIAN SUPERVISOR SUBSTATION [facility] 1 [place] [address] Burt Eastman MD [address] [address] COLONOSCOPY 04/09/2024 1:15 PM ELECTRICIAN SUPERVISOR SUBSTATION Office Visit [facility] - Pulmonology & Sleep Medicine - [place] [address] [place] [address] Baron Vergara MD [address] [place] [address] Scheduled Procedures Name Priority Associated Diagnoses Date/Ti md COLONOSCOPY HISTORY OF COLON POLYPS 03/27/2024 8:30 AM ELECTRICIAN SUPERVISOR SUBSTATION documented as of this encounter Procedures Procedure Name Priority Date/Time Associated Diagnosis Comments KIMBERLY DIAG BILATERAL DIGITAL W CAD W [place] Routine 11/16/2023 1:57 PM CDT Breast pain, left documented in this encounter Results * KIMBERLY DIAG BILATERAL DIGITAL W CAD W [place] (11/16/2023 1:57 PM CDT) Anatomical Region Laterality Modality breast Bilateral Mammography 11/16/2023 1:24 PM CDT Narrative 11/17/2023 10:26 AM CDT - KIMBERLY DIAG BILATERAL DIGITAL W CAD W [place] [facility] US BREAST LIMITED LT BILATERAL DIGITAL DIAGNOSTIC MAMMOGRAM 3D/2D WITH CAD WITH MEDIOLATERAL OBLIQUE CRANIOCAUDAL AND LEFT ULTRASOUND: 11/16/2023 The study was acquired using digital technology and interpreted from soft copy. Current study was also evaluated with [employer] version 7.2. 2D digital mammographic views, as [...] to exams dated: ??12/29/2018, 07/29/2020, and 08/25/2015 [facility]. ?? BREAST TISSUE:There are scattered areas of [...] Nael Alvarenga M.D. ? ll/:11/16/2023 14:35:56 ?? Iron Melter(s): Tara ?? RT Shaun(R)(M), [facility]; Rosemarie Ivy?SEBASTIAN Villagran, [facility] letter sent: Normal Exam ?? Reading location: [...] copy. Current study was also evaluated with [employer] version 7.2. 2D digital mammographic views, as [...] to exams dated: 12/29/2018, 07/29/2020, and 08/25/2015 [facility]. BREAST TISSUE:There are scattered areas of fibroglandular [...] signed by: Nael Alvarenga M.D. ll/:11/16/2023 14:35:56 Iron Melter(s): RT Maxine(R)(M), [facility]; SEBASTIAN Bonds, [facility] letter sent: Normal Exam Reading location: [facility] [employer]: Category 1: Negative Trupti Mejia MD IMG MAMMO ORDERABLES Final Re sult documented in this encounter Visit Diagnoses Diagnosis Breast pain, left Mastodynia documented in this encounter Care Teams Control Electrician Relationship Specialty Start Date End Date Daja Kern MD [address] [facility] [address] [place] [address] PCP - General Internal Medicine 03/13/15 Baron Vergara MD [address] [place] [address] Consulting Physician Pulmonary Disease 06/26/23 documented as of this encounter
--- OUTSIDE RECORDS SUMMARY | 2024-03-03 19:25 | XMS_ITS | Encounter Summary ---
Author Organization [facility] Address [address] [place] [address] Phone Care Team Providers Care Associate Professor Of Art History Name Role Phone Daja Kern MD Primary Care Provider [phone] Baron Vergara MD Unavailable Reason for Visit * Reason Comments Vaginal Bleeding Encounter Details Date Type Department Care Team ([facility] st Contact Info) Description 01/24/2024 5:02 AM PETROLEUM PRODUCTION ENGINEER - 01/24/2024 8:40 AM PETROLEUM PRODUCTION ENGINEER Emergency [facility] Emergency [address] [place] [address] Cameron Aguilera MD [address] [place] [address] John Prabhakar MD [address] [place] [address] Vaginal bleeding Discharge Disposition: Discharged to home or Selfcare Social History Tobacco Use Types Packs/Day Years Used Date Smoking Tobacco: Never Smokeless Tobacco: Never Alcohol Use Standard Drinks/Week Comments No 0 (1 standard drink = 0.6 oz pur e alcohol) [facility] Utilities Answer Date Recorded In the [...] declined 05/22/2023 How often do you attend voodoo or synagogue serv ices? Patient declined 05/22/2023 Do you belong to any clubs o r organizations such as voodoo groups, unions, fraternal or athletic groups, or [...] medical care, and heating? Patient declined 05/22/2023 [facility] - Occupational [...] place to sleep or slept in a usp (including now)? Patient declined 05/22/2023 Sexually Active [...] Sign Reading Time Taken Comments Blood Pressure 144/59 01/24/2024 8:14 AM PETROLEUM PRODUCTION ENGINEER Pulse 99 01/24/2024 8:14 AM PETROLEUM PRODUCTION ENGINEER Temperature 36.1 ??C (96.9 ??F) 01/24/2024 5:01 AM CS T Respiratory Rate 17 01/24/2024 6:45 AM PETROLEUM PRODUCTION ENGINEER Oxygen Saturation 97% 01/24/2024 8:14 AM PETROLEUM PRODUCTION ENGINEER Inhaled Oxygen Concentration - - Weight 127 kg (280 lb) 01/24/2024 5:01 AM PETROLEUM PRODUCTION ENGINEER Height 157.5 cm (5' 2 ) 01/24/2024 5:01 AM PETROLEUM PRODUCTION ENGINEER Body Mass Index 51.21 01/24/2024 5:01 AM PETROLEUM PRODUCTION ENGINEER documented in this encounter Medications at Time [...] as of this encounter ED Notes * Cameron Aguilera MD - 01/24/2024 8:40 AM CST Chief Complaint Patient presents with Vaginal Bleeding 53-year-old female presents to the emergency room with vaginal bleeding. She reports several days of bleeding that she describes as light. She reports she has been in menopause for several years in the bleeding began more than a week ago and she was seen her OBGYN who is arranging for her to get anend[facility]. This biopsy he was not yet been arranged. Tonight she noted passage of clots when she got up to go to the bathroom prompting her to call 911 to bebrought to the emergency room for further evaluation. She has no other complaints. No reports of lightheadedness or syncope. She was not on any blood thinners. The history is provided by the patient. Vaginal Bleeding No current facility-administered medications for this encounter. [...] IBS (irritable bowel syndrome) C/D Morbid obesity ([facility]) NAFLD (nonalcoholic fatty liver disease) Nephrocalcinosis KWABENA (obstructive sleep apnea) does not use cpap SBO (small bowel obstruction) ([facility]) 09/2018 Vitamin D deficiency Past Surgical History: Procedure Laterality Date SECTION 1994 CHOLECYSTECTOMY [address] [facility] (Does not remember the DRKyung) COLONOSCOPY N/A 11/16/2018 Procedure: COLONOSCOPY - POLYPS, BIOPSIES; Surgeon: Damian Gallardo DO; Location: [facility]; Service: Gastroenterology EGD 2012[facility] UPPER GASTROINTESTINAL ENDOSCOPY N/A 02/06/2019 Procedure: EGD, SMALL BOWEL BIOSY, GASTRIC POLYP, SAMANTHA TEST; Surgeon: Damian Gallardo DO; Location: [facility]; Service: Gastroenterology WISDOM TOOTH EXTRACTION [...] Session: Patient declined Stress: Patient Declined (05/22/2023) [employer] [place] [facility] Occupational [facility] - Occupational Stress Questionnaire Feeling of Stress : Patient declined Social Integration: Patient Declined (05/22/2023) Social Connection and Isolation Panel [NHANES] Frequency of Communication with Friends and Family: Patient declined Frequency of Social Gatherings with Friends and Family: Patient declined Attends Islam Services: Patient declined Active Member of Clubs [...] in the Last Year: Patient declined BP 144/59 Pulse 99 Temp 96.9 ??F (36.1 ??C) (Tympanic) Resp 17 Ht 5' 2 (1.575 m) Wt 280 lb (127 kg) LMP 11/12/2019 SpO2 97% BMI 51.21 kg/m?? Review of Systems All other systems reviewed and are negative. Physical Exam Vitals and nursing note reviewed. HENT: Head: Normocephalic and atraumatic. Nose: Nose normal. Mouth/Throat: Mouth: Mucous membranes are moist. Eyes: Extraocular Movements: Extraocular movements intact. Conjunctiva/sclera: Conjunctivae normal. Cardiovascular: Rate and Rhythm: Normal rate and regular rhythm. Pulmonary: Effort: Pulmonary effort is normal. Abdominal: General: There is no distension. Palpations: Abdomen is soft. Tenderness: There is no abdominal tenderness. Musculoskeletal: General: No swelling. Normal range of motion. Cervical back: Normal range of motion. Skin: General: Skin is warm and dry. Capillary Refill: Capillary refill takes less than 2 seconds. Coloration: Skin is not jaundiced. Neurological: General: No focal deficit present. Mental Status: She is alert and oriented to person, place, and time. Psychiatric: Mood and Affect: Mood normal. Behavior: Behavior normal. Procedures No results found for this or any previous visit (from the past 24 hour(s)). Imaging Results None Medical Decision Making 06:00 - Care endoresed to Dr Perkins at change of shift. Clinical Impression 1. Vaginal bleeding Disposition: Discharge ED Course as of 01/26/24 0548 MonJan 24, 2024 075 Patient care assumed at shift change, please refer to initial H and P for full history and physical. Patient is a 53-year-old female who started having postmenopausal bleeding. She reports this is painless bleeding, passed some clots. Since arriving to the emergency department patient has had only very tiny spotting. She does not have any other complaints. Patient reports she saw her OBGYN aweek ago and is waiting for an endometrial biopsy. At this time there is no evidence of major bleeding, H&H is fine, no evidence of coagulopathy. No further emergent workup is indicated. Patient needs to follow-up for endometrial biopsy and further management. [DK] ED Course User Index [DK] John Prabhakar MD OLEUM PRODUCTION ENGINEER * Joy Irby RN - 01/24/2024 8:39 AM CST Patient discharged. Discharge instructions and patient educational material reviewed with patient; questions and concerns addressed; patient verbalizes understanding, using teach back. Patient discharged per wheelchair/cane mode with self as responsible alliance party. SL D/C'ed with Chadwick cath intact. OLEUM PRODUCTION ENGINEER * John Prabhakar MD - 01/24/2024 7:53 AM CST ED Course as of 01/24/24 0753 MonJan 24, 2024 0751 Patient care assumed at shift change, please refer to initial H and P for full history and physical. Patient is a 53-year-old female who started having postmenopausal bleeding. She reports this is painless bleeding, passed some clots. Since arriving to the emergency department patient has had only very tiny spotting. She does not have any other complaints. Patient reports she saw her OBGYN aweek ago and is waiting for an endometrial biopsy. At this time there is no evidence of major bleeding, H&H is fine, no evidence of coagulopathy. No further emergent workup is indicated. Patient needs to follow-up for endometrial biopsy and further management. [DK] ED Course User Index [DK] John Prabhakar MD OLEUM PRODUCTION ENGINEER * Joy Irby RN - 01/24/2024 7:41 AM CST Pt assisted to restroom in wheelchair and was able to provide urine sample. Pt's bedding changed and pt now resting on stretcher. Pt provided with a soda and meal tray has been ordered. Pt denies anyother needs at this time; call light remains within reach. OLEUM PRODUCTION ENGINEER * Joy Irby RN - 01/24/2024 6:50 AM CST Pt resting on stretcher with lights turned down for comfort. Pt is well appearing with respirationseven and unlabored and in NAD at this time. Call light within reach. OLEUM PRODUCTION ENGINEER * Yaima Thakkar RN - 01/24/2024 6:38 AM CST Report given to Abel SHEEHAN OLEUM PRODUCTION ENGINEER * Yaima Thakkar RN - 01/24/2024 6:00 AM CST Pt medicated per provider orders. Pt educated on intended effects and side effects of medication and verbalized understanding, able to provide teach back of education. OLEUM PRODUCTION ENGINEER * Yaima Thakkar RN - 01/24/2024 5:44 AM CST Pt medicated per provider orders. Pt educated on intended effects and side effects of medication and verbalized understanding, able to provide teach back of education. OLEUM PRODUCTION ENGINEER * Allie Henry RN - 01/24/2024 5:02 AM CST Pt to ED via EMS with c/o vaginal bleeding for the past 4 days. Pt reports her last menstrual cyclewas about 5 years ago. Reports started to pass clots 2 days ago. Reports nausea without emesis. States she is waiting on a phone call from a [facility] to have a uterine biopsy due to the bleeding. OLEUM PRODUCTION ENGINEER documented in this encounter Miscellaneous Notes * PatientPass Patient Instructions - John Prabhakar MD - 01/24/2024 7:52 AM PETROLEUM PRODUCTION ENGINEER Images from the original note were not included. Patient Education Table of Contents Postmenopausal Bleeding To view videos and all your education online visit, [email or web address] or scan this QR code with your smartphone. Access to this content will in one year. Postmenopausal Bleeding Postmenopausal bleeding is any bleeding that occurs after menopause. Menopause is a time in a woman's life when monthly periods stop. Any type of bleeding after menopause should be checked by your doctor. Treatment will depend on the cause. This kind of bleeding can be caused by: Taking hormones during menopause. Low or high amounts of female hormones in the body. This can cause the lining of the womb (uterus) to become too thin or too thick. Cancer. Growths in the womb that are not cancer. Follow these instructions at home: Watch for any changes in your symptoms. Let your doctor know about them. Avoid using tampons and douches as told by your doctor. Change your pads regularly. Get regular pelvic exams. This includes Pap tests. Take iron pills as told by your doctor. Take xzyw-orn-xufzsdz and prescription medicines only as told by your doctor. Keep all follow-up visits. Contact a doctor if: You have new bleeding from the vagina after menopause. You have pain in your belly (abdomen). Get help right away if: You have a fever or chills. You have very bad pain with bleeding. You have clumps of blood (blood clots) coming from your vagina. You have a lot of bleeding, and: ? You use more than 1 pad an hour. ? This kind of bleeding has never happened before. You have headaches. You feel dizzy or you feel like you are going to pass out (faint). Summary Any type of bleeding after menopause should be checked by your doctor. Avoid using tampons or douches. Get regular pelvic exams. This includes Pap tests. Contact a doctor if you have new bleeding or pain in your belly. Watch for any changes in your symptoms. Let your doctor know about them. This information is not intended to replace advice given to you by your health care provider. Make sure you discuss any questions you have with your health care provider. Document Released: 2008-11-22 Document Updated: 2020-07-29 Document Reviewed: 2020-07-30 [employer] Patient Education ? 2023 [employer] OLEUM PRODUCTION ENGINEER documented in this encounter Plan of Treatment Upcoming Encounters Date Type Department Care Team (Late st Contact Info) Description 03/27/2024 8:30 AM PETROLEUM PRODUCTION ENGINEER Hospital Encounter [facility] Periop [address] [place] [address] Burt Eastman MD [address] [address] 03/27/2024 8:30 AM PETROLEUM PRODUCTION ENGINEER - 03/27/2024 9:00 AM PETROLEUM PRODUCTION ENGINEER Surgery [facility] Gi Lab Periop [address] [place] [address] Burt Eastman MD [address] [address] COLONOSCOPY 04/09/2024 1:15 PM PETROLEUM PRODUCTION ENGINEER Office Visit [facility] - Pulmonology & Sleep Medicine [facility] [address] [place] [phone] Baron Vergara MD [address] [place] [address] Scheduled Procedures Name Priority Associated Diagnoses Date/Ti me COLONOSCOPY HISTORY OF COLON POLYPS 03/27/2024 8:30 AM PETROLEUM PRODUCTION ENGINEER documented as of this encounter Procedures Procedure Name Priority Date/Time Associated Diagnosis Comments URINALYSIS REFLEX IF INDICATED BY ABNORMAL RESULTS STAT 01/24/2024 7:37 AM PETROLEUM PRODUCTION ENGINEER APTT (PTT) STAT 01/24/2024 6:47 AM PETROLEUM PRODUCTION ENGINEER PROTIME (PT) (PROTHROMBIN TIME) STAT 01/24/2024 6:47 AM PETROLEUM PRODUCTION ENGINEER CBC WITH AUTO DIFFERENTIAL STAT 01/24/2024 5:31 AM PETROLEUM PRODUCTION ENGINEER CMP (COMPREHENSIVE METABOLIC PANEL) STAT 01/24/2024 5:31 AM PETROLEUM PRODUCTION ENGINEER COMPLETE BLOOD COUNT (CBC) WITH DIFF STAT 01/24/2024 5:31 AM PETROLEUM PRODUCTION ENGINEER documented in this encounter Results * (ABNORMAL) Urinalysis w/ Reflex (01/24/2024 7:37 AM PETROLEUM PRODUCTION ENGINEER) SPECIFIC GRAVITY 1.010 1.003 - 1.030 01/24/2024 8:32 AM PETROLEUM PRODUCTION ENGINEER [facility] URINE PH 7.0 5.0 - 9.0 01/24/2024 8:32 AM PETROLEUM PRODUCTION ENGINEER [facility] WBC ESTERASE 25 /ul(A) Negative 01/24/2024 8:32 AM PETROLEUM PRODUCTION ENGINEER [facility] NITRITE Negative Negative 01/24/2024 8:32 AM PETROLEUM PRODUCTION ENGINEER [facility] PROTEIN, RANDOM URINE 30 mg/dL(A) Negative 01/24/2024 8:32 AM PETROLEUM PRODUCTION ENGINEER [facility] URINE GLUCOSE, QUAL Negative Negative 01/24/2024 8:32 AM PETROLEUM PRODUCTION ENGINEER [facility] URINE KETONES 5 mg/dL(A) Negative 01/24/2024 8:32 AM PETROLEUM PRODUCTION ENGINEER [facility] UROBILINOGEN 1 mg/dL(A) Normal mg/dL 01/24/2024 8:32 AM PETROLEUM PRODUCTION ENGINEER [facility] URINE BLOOD 250 /uL(A) Negative dylan/ul 01/24/2024 8:32 AM PETROLEUM PRODUCTION ENGINEER [facility] URINALYSIS COLOR Eleanor 01/24/20 8:32 AM PETROLEUM PRODUCTION ENGINEER [facility] URINALYSIS CLARITY Slightly Cloudy 01/24/2024 8:32 AM PETROLEUM PRODUCTION ENGINEER [facility] WBC (Urine) 0-5 Negative, 0-5 /hpf 01/24/2024 8:32 AM PETROLEUM PRODUCTION ENGINEER [facility] URINE RBC'S 51-150(A) Negative, 0-2 /hpf 01/24/2024 8:32 AM PETROLEUM PRODUCTION ENGINEER [facility] EPITHELIAL CELLS Large amount squamous /lpf 01/24/2024 8:32 AM PETROLEUM PRODUCTION ENGINEER [facility] BACTERIA, URINE Few(A) Negative /hpf 01/24/2024 8:32 AM PETROLEUM PRODUCTION ENGINEER [facility] Urine URINE SPECIMEN / Unknown Non-Phlebotomy Collection / Unknown 01/24/2024 7:37 AM PETROLEUM PRODUCTION ENGINEER 01/24/2024 7:50 AM PETROLEUM PRODUCTION ENGINEER us Cameron Aguilera MD URINE ORDERABLES Final Res ult [facility] [address] [place] [address] * PTT (01/24/2024 6:47 AM PETROLEUM PRODUCTION ENGINEER) PTT 26 24 - 36 sec 01/24/2024 7:10 AM PETROLEUM PRODUCTION ENGINEER [facility] Blood Venipuncture / Unknown 01/24/2024 6:47 AM PETROLEUM PRODUCTION ENGINEER 01/24/2024 6:48 AM PETROLEUM PRODUCTION ENGINEER Narrative [facility] - 01/24/2024 7:10 AM PETROLEUM PRODUCTION ENGINEER Therapeutic range for unfractionated heparin at 0.3-0.7 U/mL is an aPTT value in the range of 71-100 seconds. Critical value for the PTT test is >= 122 seconds. John Prabhakar MD HEMATOLOGY ORDERABLES Final Resu lt Performing Organization Address [facility] de Phone Number [facility] [address] [place] [address] * PT / INR (01/24/2024 6:47 AM PETROLEUM PRODUCTION ENGINEER) [facility] PROTIME-PATIENT 14.2 11.6 - 14.8 sec 01/24/2024 7:10 AM PETROLEUM PRODUCTION ENGINEER [facility] INR 1.0 0.9 - 1.2 01/24/2024 7:10 AM PETROLEUM PRODUCTION ENGINEER [facility] Comment: Therapeutic Ranges INR = 2.0-3.0: Venous thromb, atrial fib, pul embolism, tissue heart valve, ami. INR = 2.5-3.5: Mechanical heart valve Critical value for INR is >/= 4.5 Blood Venipuncture / Unknown 01/24/2024 6:47 AM PETROLEUM PRODUCTION ENGINEER 01/24/2024 6:48 AM PETROLEUM PRODUCTION ENGINEER John Prabhakar MD HEMATOLOGY ORDERABLES Final Resu lt Performing Organization Address [facility] de Phone Number [facility] [address] [place] [address] * (ABNORMAL) CBC with Auto Differential (01/24/2024 5:31 AM PETROLEUM PRODUCTION ENGINEER) [facility] WBC 11.74 4.00 - 12.00 10(3)/mcL 01/24/2024 6:37 AM PETROLEUM PRODUCTION ENGINEER [facility] RBC 4.46 3.80 - 5.30 10(6)/mcL 01/24/2024 6:37 AM [facility] HEMOGLOBIN (HGB) 13.7 12.0 - 15.8 g/dL 01/24/2024 6:37 AM [facility] HEMATOCRIT (HCT) 41.1 36.0 - 47.0 % 01/24/2024 6:37 AM [facility] MCV 92.2 82.0 - 96.0 fL 01/24/2024 6:37 AM [facility] MCH 30.7 26.0 - 34.0 pg 01/24/2024 6:37 AM [facility] MCHC 33.3 31.0 - 36.0 g/dL 01/24/2024 6:37 AM [facility] PLATELET COUNT 214 140 - 440 10(3)/[facility] 01/24/2024 6:37 AM [facility] RDW 13.0 11.8 - 15.5 % 01/24/2024 6:37 AM [facility] MPV 12.0 9.7 - 12.4 fL 01/24/2024 6:37 AM [facility] NEUTROPHILS 72.7 47.0 - 73.0 % 01/24/2024 6:37 AM [facility] LYMPHOCYTES 19.1 18.0 - 42.0 % 01/24/2024 6:37 AM [facility] MONOCYTES 6.6 4.0 - 12.0 % 01/24/2024 6:37 AM [facility] EOSINOPHILS 1.1 0.0 - 5.0 % 01/24/2024 6:37 AM [facility] BASOPHILS 0.5 0.0 - 1.0 % 01/24/2024 6:37 AM [facility] ABSOLUTE NEUTROPHILS 8.54(H) 1.60 - 7.70 10(3)/[facility] 01/24/2024 6:37 AM [facility] ABSOLUTE LYMPHOCYTES 2.24 1.30 - 3.20 10(3)/mcL 01/24/2024 6:37 AM [facility] ABSOLUTE MONOCYTES 0.77 0.20 - 1.00 10(3)/mcL 01/24/2024 6:37 AM PETROLEUM PRODUCTION ENGINEER [facility] ABSOLUTE EOSINOPHIL 0.13 0.00 - 0.40 10(3)/mcL 01/24/2024 6:37 AM [facility] ABSOLUTE BASOPHILS 0.06 0.00 - 0.10 10(3)/mcL 01/24/2024 6:37 AM [facility] NRBC PER 100 WBC 0 01/24/20 6:37 AM [facility] RESULTS ARE CONSISTENT WITH PERIPHERAL SMEAR REVIEW Yes 01/24/2024 6:37 AM [facility] Blood Venipuncture / Unknown 01/24/2024 5:31 AM PETROLEUM PRODUCTION ENGINEER 01/24/2024 5:41 AM PETROLEUM PRODUCTION ENGINEER us Cameron Aguilera MD HEMATOLOGY ORDERABLES Radha l Result [facility] [address] [place] [address] * (ABNORMAL) CMP (01/24/2024 5:31 AM PETROLEUM PRODUCTION ENGINEER) SODIUM 139 136 - 145 mmol/L 01/24/2024 6:05 AM [facility] POTASSIUM 4.1 3.5 - 5.1 mmol/L 01/24/2024 6:05 AM [facility] CHLORIDE 101 98 - 107 mmol/L 01/24/2024 6:05 AM [facility] CO2, VENOUS 26 22 - 30 mmol/L 01/24/2024 6:05 AM [facility] ANION GAP 16.1 <18.0 mmol/L 01/24/2024 6:05 AM [facility] GLUCOSE 171(H) 70 - 99 mg/dL 01/24/2024 6:05 AM [facility] BUN 15 10 - 20 mg/dL 01/24/2024 6:05 AM [facility] CREATININE, BLOOD 0.76 0.60 - 1.00 mg/dL 01/24/2024 6:05 AM [facility] BUN/CREATININE RATIO 20 12 - 20 ratio 01/24/2024 6:05 AM [facility] TOTAL PROTEIN 7.5 6.3 - 8.2 g/dL 01/24/2024 6:05 AM [facility] ALBUMIN 4.1 3.5 - 5.0 g/dL 01/24/2024 6:05 AM [facility] A/G RATIO 1.2 1.0 - 2.2 01/24/2024 6:05 AM [facility] CALCIUM 9.8 8.7 - 10.5 mg/dL 01/24/2024 6:05 AM [facility] T BILI 0.6 0.2 - 1.2 mg/dL 01/24/2024 6:05 AM [facility] SGOT (AST) 28 5 - 34 U/L 01/24/2024 6:05 AM [facility] SGPT (ALT) 40 0 - 55 U/L 01/24/2024 6:05 AM [facility] ALKALINE PHOSPHATASE 89 40 - 150 U/L 01/24/2024 6:05 AM [facility] GFR, ESTIMATED >60 >=60 01/24/2024 6:05 AM [facility] Comment: Creatinine Clearance is the preferred criteria for selecting drug dose adjustments in renally impaired patients. ??The GFR is provided as additional pertinent clinical information. GFR is reported in mL/min/1.73 sq m. Calculation based on the Chronic Kidney Disease Epidemiology Collaboration (CKD- EPI) equation refit without adjustment for race. GFR, EST. >60 >=60 024 6:05 AM [facility] GFR, EST. NONAFRICAN >60 >=60 01/24/2024 6:05 AM [facility] Blood Venipuncture / Unknown 01/24/2024 5:31 AM PETROLEUM PRODUCTION ENGINEER 01/24/2024 5:41 AM PETROLEUM PRODUCTION ENGINEER us Cameron Aguilera MD CHEMISTRY ORDERABLES Final Result [facility] [address] [place] [address] documented in this encounter Visit Diagnoses Diagnosis Vaginal bleeding- Primary Other specified noninflammatory disorder of vagina documented in this encounter Administered Medications Inactive Administered Medications - up to 3 most recent administrations Medication Order MAR Action Action Date Dose Rate Site ketorolac (TORADOL) injection 15 mg 15 mg, Intravenous, ONCE, 1 dose, On Mon01/24/24 at 0600 Given 01/24/2024 5:43 AM PETROLEUM PRODUCTION ENGINEER 15 mg tranexamic acid 1000 mg/100 mL 1,000 mg (1 g), Intravenous, ONCE, 1 dose, On Mon01/24/24 at 0600, Administer over 10 Minutes New Bag 01/24/2024 5:44 AM PETROLEUM PRODUCTION ENGINEER 1,000 mg tranexamic acid 1000 mg/100 mL 1,000 mg (1 g), Intravenous, ONCE, 1 dose, On Mon01/24/24 at 0600, Administer over 10 Minutes New Bag 01/24/2024 6:00 AM PETROLEUM PRODUCTION ENGINEER 1,000 mg documented in this encounter Active and Recently Administered Medications Times are shown in PETROLEUM PRODUCTION ENGINEER. Scheduled Medication Order 01/22/2024 01/23/2024 01/24/2024 ketorolac (TORADOL) injection 15 mg (COMPLETED) 15 mg, Intravenous, ONCE, 1 dose, On Mon01/24/24 at 0600 0543 (Given - Provid er: Yaima Thakkar RN) tranexamic acid 1000 mg/100 mL (COMPLETED)(Linked Group 1) 1,000 mg (1 g), Intravenous, ONCE, 1 dose, On Mon01/24/24 at 0600, Administer over 10 Minutes 0544 (New Bag - Prov ider: Yaima Thakkar RN)0559 (Stopped - Provider: Yaima Thakkar RN) tranexamic acid 1000 mg/100 mL (COMPLETED)(Linked Group 1) 1,000 mg (1 g), Intravenous, ONCE, 1 dose, On Mon01/24/24 at 0600, Administer over 10 Minutes 0600 (New Bag - Prov ider: Yaima Thakkar RN)0638 (Stopped - Provider: Yaima Thakkar RN) Linked Groups Order Group 1: tranexamic acid 1000 mg/100 mL (COMPLETED)Jump to med 1,000 mg (1 g), Intravenous, ONCE, 1 dose, On Mon01/24/24 at 0600, Administer over 10 Minutes Followed by tranexamic acid 1000 mg/100 mL (COMPLETED)Jump to med 1,000 mg (1 g), Intravenous, ONCE, 1 dose, On Mon01/24/24 at 0600, Administer over 10 Minutes documented in this encounter Care Teams Associate Professor Of Art History Relationship Specialty Start Date End Date Daja Kern MD [address] [place] [address] PCP - General Internal Medicine 03/13/15 Baron Vergara MD [address] [place] [id number] Consulting Physician Pulmonary Disease 06/26/23 documented as of this encounter
--- OUTSIDE RECORDS SUMMARY | 2024-03-03 19:25 | XMS_ITS | Encounter Summary ---
Author Organization [facility] Address [facility]. [place], [place] [id number] [place] [id number] Care Team Providers Care Combination Presser Name Role Phone None, Provider MD Primary Care Provider Unavaila ble Reason for Referral * Imaging (Emergency) - Closed Specialty Diagnoses / Procedures Referred By Contac t Referred To Contact RADIOLOGY Procedures CTA CHEST PE PROTOCOL Kodak Lora MD Phone: tel: fax: Referral ID Status Reason Start Date Expiration Date Visits Re quested Visits Authorized [id number] Closed 01/06/2023 01/07/2024 1 1 YER HELPER Reason for Visit * Reason Comments Shortness Of Breath Encounter Details Date Type Department Care Team (Late st Contact Info) Description 01/06/2023 11:42 AM ASSAYER HELPER - 01/06/2023 4:14 PM ASSAYER HELPER Emergency [facility] Emergency [address] [place] [address] Kodak Lora MD [address] [place] [id number] Shortness Of Breath Discharge Disposition: Left Against Medical Advice Social History Tobacco Use Types Packs/Day Years Used Date Smoking Tobacco: Never Assessed Comments No Sex and Gender Information Value Date Recorded Sex Assigned at Not on file Legal Sex Female 11:42 AM ASSAYER HELPER Gender Identity Not on file Sexual Orientation Not on file documented as of this encounter Last Filed Vital Signs Vital Sign Reading Time Taken Comments Blood Pressure 152/100 01/06/2023 11:46 AM ASSAYER HELPER Pulse 89 01/06/2023 1:25 PM ASSAYER HELPER Temperature 36.7 ??C (98.1 ??F) 01/06/2023 1 1:46 AM ASSAYER HELPER Respiratory Rate 20 01/06/2023 1:25 PM ASSAYER HELPER Oxygen Saturation 96% 01/06/2023 1:25 PM ASSAYER HELPER Inhaled Oxygen Concentration - - Weight 131.9 kg (290 lb 12.6 oz) 2022 11:46 AM ASSAYER HELPER Height 157.5 cm (5' 2 ) 01/06/2023 11:4 6 AM ASSAYER HELPER Body Mass Index 53.19 01/06/2023 11:46 AM ASSAYER HELPER documented in this encounter ED Notes * Abel Puckett RN - 01/06/2023 11:44 AM CST Patient was brought in by EMS from [facility] with reported SOB for 2 weeks.. As per EMS, patient was at [facility] for Cocaine Abuse treatment. AO x 4. YER HELPER * Kodak Lora MD - 01/06/2023 11:43 AM CST Chief Complaint Chief Complaint Patient presents with Shortness Of Breath History of Present Illness Patient is a 52-year-old female past medical history of hypertension crack cocaine abuse presentingthe emergency department for shortness of breath. Patient reports she has been having shortness of breath for over a week. Her shortness of breath is worse with exertion but denies any chest pain or chest tightness. She was admitted to [facility] yesterday and went there and started to complain that she is having shortness of breath and advised her to come here. Patient reports her shortness of breath has not changed over the last week. She had a negative COVID test denies fevers chills nausea or abdominal pain. She denies any known cardiac or pulmonary issues. Medical History ALLERGIES: Review of patient's allergies indicates: Allergen Reactions Geodon [Ziprasidone] Hives Risperdal [Risperidone] Hives Sulfa Antibiotics Hives Topamax [Topiramate] Hives MEDICATIONS: Prior to Admission medications Not on File PAST MEDICAL HISTORY: History reviewed. No pertinent past medical history. PAST SURGICAL HISTORY: No past surgical history on file. FAMILY HISTORY: No family history on file. SOCIAL HISTORY: Review of Systems Review of Systems Constitutional: Positive for fatigue. Negative for chills and fever. HENT: Negative for congestion, ear discharge and rhinorrhea. Eyes: Negative. Respiratory: Positive for shortness of breath. Negative for cough. Cardiovascular: Negative for chest pain and leg swelling. Gastrointestinal: Negative for abdominal pain, nausea and vomiting. Genitourinary: Negative for dysuria, flank pain and hematuria. Musculoskeletal: Negative for arthralgias, back pain, neck pain and neck stiffness. Skin: Negative for wound. Neurological: Negative for syncope, weakness and numbness. Psychiatric/Behavioral: Negative for confusion. Physical Exam Filed Vitals: 01/06/23 1146 01/06/23 1325 BP: (!) 152/100 Pulse: 91 89 Resp: 20 20 Temp: 98.1 ??F (36.7 ??C) TempSrc: Oral SpO2: 96% 96% Weight: 131.9 kg (290 lb 12.6 oz) Height: 1.575 m (5' 2 ) Physical Exam Constitutional: General: She is not in acute distress. Appearance: She is obese. She is not ill-appearing. HENT: Head: Normocephalic and atraumatic. Right Ear: External ear normal. Left Ear: External ear normal. Nose: Nose normal. No congestion or rhinorrhea. Mouth/Throat: Mouth: Mucous membranes are moist. Pharynx: Oropharynx is clear. Eyes: General: Right eye: No discharge. Left eye: No discharge. Extraocular Movements: Extraocular movements intact. Conjunctiva/sclera: Conjunctivae normal. Pupils: Pupils are equal, round, and reactive to light. Cardiovascular: Rate and Rhythm: Normal rate and regular rhythm. Pulses: Normal pulses. Pulmonary: Effort: Pulmonary effort is normal. Breath sounds: Normal breath sounds. No wheezing or rhonchi. Abdominal: General: Abdomen is flat. There is no distension. Palpations: Abdomen is soft. Tenderness: There is no abdominal tenderness. Musculoskeletal: General: No deformity or signs of injury. Normal range of motion. Cervical back: Normal range of motion. No rigidity or tenderness. Right lower leg: Edema present. Left lower leg: Edema present. Comments: mild bilateral lower extremity edema. Skin: General: Skin is warm and dry. Findings: No lesion or rash. Neurological: General: No focal deficit present. Mental Status: She is alert and oriented to person, place, and time. Mental status is at baseline. Sensory: No sensory deficit. Motor: No weakness. Diagnostic Studies / Procedures ELECTROCARDIOGRAMS: Results for orders placed or performed during the hospital encounter of 01/06/23 ECG 12 lead Narrative SJS-ED Test Date: 2023-01-06 Pat Name: ALONA KEMP Department: 70 Room: EXAM GG Gender: Female Oncology Navigator: Roger BUENROSTRO : 1970 Requested By: KODAK LORA Order Number: [id number] Reading MD: Hadley [facility] Measurements Intervals Bronson Rate: 85 P: 28 OK: 146 QRS: -8 QRSD: 94 T: 17 QT: 371 QTc: 441 Interpretive Statements SINUS RHYTHM MODERATE VOLTAGE CRITERIA FOR LVH, CONSIDER NORMAL VARIANT [MEETS CRITERIA IN ONE OF: R(aVL), S(V1), R(V5), R(V5/V6)+S(V1)] YER HELPER LABORATORY STUDIES: Results for orders placed or performed during the hospital encounter of 01/06/23 CBC W/DIFF AUTOMATED Result Value Ref Range WBC 8.52 4.00 - 10.80 x10'3/uL RBC 4.07 (L) 4.10 - 5.40 x10'6/uL HGB 12.2 12.0 - 16.0 G/DL HCT 38.2 36.0 - 47.0 % MCV 93.9 78.0 - 100.0 FL MCH 30.0 27.0 - 31.0 PG MCHC 31.9 (L) 33.0 - 36.0 G/DL RDW 13.6 11.5 - 14.5 % PLT 216 150 - 350 x10'3/uL MPV 11.4 (H) 7.4 - 10.4 FL ABS. NEUTROPHILS 6.62 1.60 - 8.30 x10'3/uL ABS. LYMPHOCYTES 1.18 0.80 - 4.70 x10'3/uL ABS. MONOCYTES 0.39 0.00 - 1.50 x10'3/uL ABS. EOSINOPHILS 0.24 0.00 - 0.40 x10'3/uL ABS. BASOPHILS 0.03 0.00 - 0.20 x10'3/uL ABS. IMMATURE GRANULOCYTES 0.06 (H) 0.00 - 0.03 x10'3/uL ABS. NUCLEATED RBC'S 0.00 0.0 x10'3/uL COMPREHENSIVE METABOLIC PANEL Result Value Ref Range SODIUM S/P/B 139 136 - 145 MMOL/L POTASSIUM S/P/B 3.9 3.5 - 5.1 MMOL/L CHLORIDE S/P/B 104 98 - 107 MMOL/L CO2 33.8 (H) 21.0 - 32.0 MMOL/L GLUCOSE 105 74 - 106 MG/DL BUN 10 7 - 18 MG/DL CREATININE S/P/B 0.60 0.55 - 1.02 MG/DL CALCIUM S/P/B 8.6 8.5 - 10.1 MG/DL BILIRUBIN TOTAL S/P/B 0.4 0.2 - 1.0 MG/DL ALKALINE PHOSPHATASE S/P/B 93 39 - 100 U/L AST 13 (L) 15 - 37 U/L ALT 22 13 - 56 U/L TOTAL PROTEIN S/P/B 6.8 6.4 - 8.2 G/DL ALBUMIN S/P/B 3.0 (L) 3.4 - 5.0 G/DL ANION GAP 1.2 (L) 5.0 - 15.0 MMOL/L OSMOLALITY (CALC) 287 MOSM/KG GFR ESTIMATE >90 >90 ML/MIN/1.73 M2 GFR NOTES GFR REFERENCES: MAGNESIUM Result Value Ref Range MAGNESIUM 2.0 1.6 - 2.6 MG/DL TROPONIN, QUANT Result Value Ref Range TROPONIN I HIGH SENSITIVITY 11 0 - 53 ng/L PRO-BRAIN NATRIURETIC PEPTIDE Result Value Ref Range PRO-B TYPE NATRIURETIC PEPTIDE 1,706 (H) <125 PG/ML Blood gas, venous Result Value Ref Range PH VENOUS 7.40 7.32 - 7.42 PCO2 VENOUS 55.5 (H) 41.0 - 51.0 MMHG PO2 VENOUS 32.3 25.0 - 40.0 MM HG BICARB VENOUS 33.8 (H) 24 - 28 MMOL/L TOTAL CO2 VENOUS 35.5 (H) 25.0 - 29.0 MMOL/L BASE EXCESS VENOUS 7.8 (H) 0 - 2 MMOL/L O2 SAT VENOUS 56 <75 % D-DIMER, QUANTITATIVE Result Value Ref Range D-DIMER 1,129 (H) 0 - 500 ng[FEU]/mL EXCLUSION STATEMENT IMAGING STUDIES CTA CHEST PE PROTOCOL Final Result by User, [id number] (01/06 1530) 01/06/2023, 1336 hours. HISTORY: Shortness of breath for 2 weeks. History of cocaine abuse treatment. EXAM: CTA of the chest, PE protocol. CT angiographic imaging of the chest was performed utilizing the intravenous administration of 70 mL Isovue-370 contrast. Images are submitted for review in the axial, the coronal and sagittal planes. Post processed MIP (maximum intensity projection) pulmonary angiographic imaging was performed in the coronal plane. A dose lowering technique was used for this procedure, which may include, but is not limited to, dose reduction technique, automated exposure control, the use of iterative reconstruction, and ALARA (As Low As Reasonably Achievable) / Image Gently techniques. No comparison. Correlation to chest radiograph earlier same date. FINDINGS: Good contrast opacification of the central pulmonary arteries. No intraluminal filling defect within the central pulmonary arteries and no evidence of central pulmonary embolism. The peripheral pulmonary vessels are more difficult to evaluate but I do not see definitive peripheral pulmonary embolism. The heart is mildly enlarged with a left ventricular configuration. No pericardial effusion. Small bilateral pleural effusions. No remarkable hilar nor mediastinal mass or adenopathy. Minor respiratory artifacts slightly degrades pulmonary parenchymal detail. This makes it difficult to evaluate for minor pulmonary congestion. No consolidating mass or infiltrate. No pneumothorax. 3.2 cm water density lesion posterior upper right lobe of the liver suggesting a simple hepatic cyst. Previous cholecystectomy with absent gallbladder and surgical clips in the gallbladder fossa of the liver. The liver has a slightly decreased contrast-enhanced density compared to the spleen which suggests fatty infiltration of the liver. No mass or enlargement of the spleen, pancreas nor adrenal glands. Minimal wispy change in the subcutaneous fat in the anterior upper abdominal wall. IMPRESSION: Mild cardiac enlargement with left ventricular configuration. No definite pulmonary embolism. Small bilateral pleural effusions. Question minimal pulmonary congestion versus respiratory artifact. 3.2 cm apparent simple cyst posterior upper right lobe of the liver. Probable fatty infiltration of the liver. Ordered By: KODAK LORA Interpreted By: Abe Vera MD, 01/06/2023 3:14 PM XR CHEST PA+LAT Final Result by User, [id number] (01/06 1232) EXAMINATION: XR CHEST PA+LAT EXAM DATE: 01/06/2023 12:02 PM CLINICAL HISTORY: Shortness of breath upon exertion. Feeling short of breath for 2 weeks. COMPARISON: None. TECHNIQUE: Upright AP and lateral views of the chest. FINDINGS: The cardiomediastinal silhouette is normal in size. There is the appearance of dextrocardia on the submitted image, however the contralateral hemidiaphragm appears slightly elevated relative to the anterolateral hemidiaphragm, suggesting that the image was horizontally inverted and in speaking to the performing technologist, this was confirmed. Pulmonary vasculature is appropriately distributed. There is mild interstitial prominence in both lungs without focal pulmonary consolidation, that is nonspecific, but can be seen in the setting of asthma, bronchitis, and/or viral illness. There is no pleural effusion or pneumothorax. IMPRESSION: Mild interstitial prominence in both lungs without focal pulmonary consolidation, that is nonspecific, but can be seen in the setting of asthma, bronchitis, and/or viral illness. Referred By: Interpreted By: Rdoney Yen DO, 01/06/2023 12:25 PM ED Course / Medical Decision Making Patient is in no acute distress with complaints of shortness of breath fatigue with exertion. She has a history of crack cocaine use concern for possible cardiomyopathy or pulmonary embolism. Patientdid have an elevated BNP her D- dimer was elevated and CTA did not show pulmonary embolism however did show concerns for cardiac enlargement bilateral pleural effusions. With elevated BNP stress echo was ordered however the patient left AMA with concerns that she may have had cardiomyopathy responsible ID in the past. Patient voiced understanding understand that she is AGAINST MEDICAL ADVICE couldhave a serious cardiac or respiratory event. This includes both me and the nursing staff. Medical Decision Making Clinical Impression Shortness of breath (Primary) Disposition: AMZulma Lora MD 01/07/239 YER HELPER * Floridalma Padilla RN - 01/06/2023 11:42 AM CST Bed: G Expected date: 01/06/23 Expected time: Means of arrival: Ambulance - [facility] Comments: [id number] YER HELPER documented in this encounter Plan of Treatment Not on file documented as of this encounter Procedures Procedure Name Priority Date/Time Associated Diagnosis Comments CTA CHEST PE PROTOCOL STAT 01/06/2023 1:35 PM ASSAYER HELPER XR CHEST PA+LAT STAT 01/06/2023 12:07 PM ASSAYER HELPER PRO-BRAIN NATRIURETIC PEPTIDE STAT 01/06/2023 12:07 PM ASSAYER HELPER BLOOD GAS, VENOUS STAT 01/06/2023 12: 07 PM ASSAYER HELPER COMPREHENSIVE METABOLIC PANEL STAT 01/06/2023 12:07 PM ASSAYER HELPER D-DIMER, QUANTITATIVE STAT 01/06/2023 12:07 PM ASSAYER HELPER CBC W/DIFF AUTOMATED STAT 01/06/2023 12:07 PM ASSAYER HELPER TROPONIN, QUANT STAT 01/06/2023 12:07 PM ASSAYER HELPER MAGNESIUM STAT 01/06/2023 12:07 PM ASSAYER HELPER ECG 12-LEAD STAT 01/06/2023 11:56 AM ASSAYER HELPER documented in this encounter Results * CTA CHEST PE PROTOCOL (01/06/2023 1:35 PM ASSAYER HELPER) Anatomical Region Laterality Modality Chest Computed Tomogra phy 01/06/2023 3:14 PM ASSAYER HELPER Impressions 01/06/2023 3:28 PM ASSAYER HELPER IMPRESSION: Mild cardiac enlargement with left ventricular configuration. No definite pulmonary embolism. Small bilateral pleural effusions. Question minimal pulmonary congestion versus respiratory artifact. 3.2 cm apparent simple cyst posterior upper right lobe of the liver. Probable fatty infiltration of the liver. Ordered By: KODAK LORA Interpreted By: Abe Vera MD, 01/06/2023 3:14 PM Narrative 01/06/2023 3:28 PM ASSAYER HELPER 01/06/2023, 1336 hours. HISTORY: Shortness of breath for 2 weeks. History of cocaine abuse treatment. EXAM: CTA of the chest, PE protocol. CT angiographic imaging of the chest was performed utilizing the intravenous administration of 70 mL Isovue-370 contrast. Images are submitted for review in the axial, the coronal and sagittal planes. Post processed MIP (maximum intensity projection) pulmonary angiographic imaging was performed in the coronal plane. A dose lowering technique was used for this procedure, which may include, but is not limited to, dose reduction technique, automated exposure control, the use of iterative reconstruction, and ALARA (As Low As Reasonably Achievable) / Image Gently techniques. No comparison. Correlation to chest radiograph earlier same date. FINDINGS: Good contrast opacification of the central pulmonary arteries. No intraluminal filling defect within the central pulmonary arteries and no evidence of central pulmonary embolism. The peripheral pulmonary vessels are more difficult to evaluate but I do not see definitive peripheral pulmonary embolism. The heart is mildly enlarged with a left ventricular configuration. No pericardial effusion. Small bilateral pleural effusions. No remarkable hilar nor mediastinal mass or adenopathy. Minor respiratory artifacts slightly degrades pulmonary parenchymal detail. This makes it difficult to evaluate for minor pulmonary congestion. No consolidating mass or infiltrate. No pneumothorax. 3.2 cm water density lesion posterior upper right lobe of the liver suggesting a simple hepatic cyst. Previous cholecystectomy with absent gallbladder and surgical clips in the gallbladder fossa of the liver. The liver has a slightly decreased contrast-enhanced density compared to the spleen which suggests fatty infiltration of the liver. No mass or enlargement of the spleen, pancreas nor adrenal glands. Minimal wispy change in the subcutaneous fat in the anterior upper abdominal wall. Procedure Note Abe Vera MD - 01/06/2023 01/06/2023, 1336 hours. HISTORY: Shortness of breath for 2 weeks. History of cocaine abusetreatment. EXAM: CTA of the chest, PE protocol. CT angiographic imaging of the chest was performed utilizing theintravenous administration of 70 mL Isovue-370 contrast. Images aresubmitted for review in the axial, the coronal and sagittal planes. Postprocessed MIP (maximum intensity projection) pulmonary angiographicimaging was performed in the coronal plane. A dose lowering technique was used for this procedure, which may include,but is not limited to, dose reduction technique, automated exposurecontrol, the use of iterative reconstruction, and ALARA (As Low AsReasonably Achievable) / Image Gently techniques. No comparison. Correlation to chest radiograph earlier same date. FINDINGS: Good contrast opacification of the central pulmonary arteries.No intraluminal filling defect within the central pulmonary arteries andno evidence of central pulmonary embolism. The peripheral pulmonaryvessels are more difficult to evaluate but I do not see definitiveperipheral pulmonary embolism. The heart is mildly enlarged with a leftventricular configuration. No pericardial effusion. Small bilateralpleural effusions. No remarkable hilar nor mediastinal mass or adenopathy.Minor respiratory artifacts slightly degrades pulmonary parenchymaldetail. This makes it difficult to evaluate for minor pulmonarycongestion. No consolidating mass or infiltrate. No pneumothorax. 3.2 cm water density lesion posterior upper right lobe of the liversuggesting a simple hepatic cyst. Previous cholecystectomy with absentgallbladder and surgical clips in the gallbladder fossa of the liver. Theliver has a slightly decreased contrast-enhanced density compared to thespleen which suggests fatty infiltration of the liver. No mass orenlargement of the spleen, pancreas nor adrenal glands. Minimal wispychange in the subcutaneous fat in the anterior upper abdominal wall. IMPRESSION: Mild cardiac enlargement with left ventricular configuration. No definitepulmonary embolism. Small bilateral pleural effusions. Question minimalpulmonary congestion versus respiratory artifact. 3.2 cm apparent simplecyst posterior upper right lobe of the liver. Probable fatty infiltrationof the liver. Ordered By: KODAK LORA Interpreted By: Abe Vera MD, 01/06/2023 3:14 PM Kodak Lora MD CT Final Result * (ABNORMAL) D-DIMER, QUANTITATIVE (01/06/2023 12:07 PM ASSAYER HELPER) D-DIMER 1,129(H) 0 - 500 ng{FEU}/mL 01/06/2023 12:44 PM ASSAYER HELPER [facility] EXCLUSION STATEMENT 01/06/2023 12:44 PM ASSAYER HELPER [facility] Comment: D-Dimer values less than or equal to 500 ng/mL FEU have a negative predictive value of >95% for exclusion of deep vein thrombosis and pulmonary embolism. In patients over 50 (who tend to have higher normal baseline D-Dimer values), recent studies suggest age-adjusted D-Dimer cutoff values (calculated as: age [years] x 10 ng/mL) result in equivalent outcomes and no additional false negative findings. 01/06/2023 12:0 7 PM ASSAYER HELPER us Kodak Lora MD LABORATORY Final Result Performing Organization Address [facility] de Phone Number [facility] [address] [place] [address], [phone] * (ABNORMAL) Blood gas, venous (01/06/2023 12:07 PM ASSAYER HELPER) PH VENOUS 7.40 7.32 - 7.42 01/06/2023 12:14 PM ASSAYER HELPER [facility] PCO2 VENOUS 55.5(H) 41.0 - 51.0 MMHG 01/06/2023 12:14 PM ASSAYER HELPER [facility] PO2 VENOUS 32.3 25.0 - 40.0 MM HG 01/06/2023 12:14 PM ASSAYER HELPER [facility] BICARB VENOUS 33.8(H) 24 - 28 MMOL/L 01/06/2023 12:14 PM ASSAYER HELPER [facility] TOTAL CO2 VENOUS 35.5(H) 25.0 - 29.0 MMOL/L 01/06/2023 12:14 PM ASSAYER HELPER [facility] BASE EXCESS VENOUS 7.8(H) 0 - 2 MMOL/L 01/06/2023 12:14 PM ASSAYER HELPER [facility] O2 SAT VENOUS 56 <75 % 01/06/2023 12:14 PM ASSAYER HELPER [facility] 01/06/2023 12:0 7 PM ASSAYER HELPER us Kodak Lora MD LABORATORY Final Result Performing Organization Address [facility] Co de Phone Number [facility] [address] [place] [address], [phone] * (ABNORMAL) PRO-BRAIN NATRIURETIC PEPTIDE (01/06/2023 12:07 PM ASSAYER HELPER) PRO-B TYPE NATRIURETIC PEPTIDE 1,706(H) <125 PG/ML 01/06/2023 12:47 PM ASSAYER HELPER [facility] Comment: AGE INDEPENDENT: <300 PG/ML HAS A 99% NEGATIVE PREDICTIVE VALUE FOR EXCLUDING ACUTE CHF <50 YEARS: >450 PG/ML IS CONSISTENT WITH ACUTE CHF 50-75 YEARS: >900 PG/ML IS CONSISTENT WITH ACUTE CHF >75 YEARS: >1800 PG/ML IS CONSISTENT WITH ACUTE CHF IN PATIENTS WITH RENAL INSUFFICIENCY (GFR <60), >1200 PG/ML YIELDS A DIAGNOSTIC SENSITIVITY AND SPECIFICITY OF 89% AND 72% FOR ACUTE CHF. 01/06/2023 12:0 7 PM ASSAYER HELPER us Kodak Lora MD LABORATORY Final Result Performing Organization Address [facility] Co de Phone Number [facility] [address] [place] [address], [phone] * TROPONIN, QUANT (01/06/2023 12:07 PM ASSAYER HELPER) Pathologist [facility] TROPONIN I HIGH SENSITIVITY 11 0 - 53 ng/L 01/06/2023 12:47 PM ASSAYER HELPER [facility] 01/06/2023 12:0 7 PM ASSAYER HELPER us Kodak Lora MD LABORATORY Final Result Performing Organization Address [facility] Co de Phone Number [facility] [address] [place] [address], [place] [phone] * MAGNESIUM (01/06/2023 12:07 PM ASSAYER HELPER) MAGNESIUM 2.0 1.6 - 2.6 MG/DL 01/06/2023 12:47 PM ASSAYER HELPER [facility] 01/06/2023 12:0 7 PM ASSAYER HELPER us Kodak Lora MD LABORATORY Final Result [facility] [address] [place] [address], [phone] * (ABNORMAL) COMPREHENSIVE METABOLIC PANEL (01/06/2023 12:07 PM ASSAYER HELPER) SODIUM S/P/B 139 136 - 145 MMOL/L 01/06/2023 12:47 PM [facility] POTASSIUM S/P/B 3.9 3.5 - 5.1 MMOL/L 01/06/2023 12:47 PM [facility] CHLORIDE S/P/B 104 98 - 107 MMOL/L 01/06/2023 12:47 PM [facility] CO2 33.8(H) 21.0 - 32.0 MMOL/L 01/06/2023 12:47 PM [facility] GLUCOSE 105 74 - 106 MG/DL 01/06/2023 12:47 PM [facility] BUN 10 7 - 18 MG/DL 01/06/2023 12:47 PM [facility] CREATININE S/P/B 0.60 0.55 - 1.02 MG/DL 01/06/2023 12:47 PM [facility] CALCIUM S/P/B 8.6 8.5 - 10.1 MG/DL 01/06/2023 12:47 PM [facility] BILIRUBIN TOTAL S/P/B 0.4 0.2 - 1.0 MG/DL 01/06/2023 12:47 PM [facility] ALKALINE PHOSPHATASE S/P/B 93 39 - 100 U/L 01/06/2023 12:47 PM [facility] AST 13(L) 15 - 37 U/L 01/06/2023 12:47 PM [facility] ALT 22 13 - 56 U/L 01/06/2023 12:47 PM [facility] TOTAL PROTEIN S/P/B 6.8 6.4 - 8.2 G/DL 01/06/2023 12:47 PM [facility] ALBUMIN S/P/B 3.0(L) 3.4 - 5.0 G/DL 01/06/2023 12:47 PM [facility] ANION GAP 1.2(L) 5.0 - 15.0 MMOL/L 01/06/2023 12:47 PM [facility] OSMOLALITY (CALC) 287 MOSM/KG 023 12:47 PM [facility] Comment:REFERENCE RANGE NOT ESTABLISHED GFR ESTIMATE >90 >90 ML/MIN/1. 75 M2 01/06/2023 12:47 PM [facility] GFR NOTES GFR REFERENCE S: 01/06/2023 12:47 PM [facility] Comment: THE ESTIMATED GFR IS CALCULATED USING THE 2020 CKD-EPI EQUATION. THE FOLLOWING CATEGORIES FOR GRADING RENAL FUNCTION ARE RECOMMENDED BY THE INTERNATIONAL SOCIETY OF NEPHROLOGY (KDIGO 2012 CLINICAL PRACTICE GUIDELINE). G1,NORMAL OR HIGH: >89 ml/min/1.73 m2 G2,MILDLY DECREASED: 60-89 ml/min/1.73 m2 G3A,MILDLY TO MODERATELY DECREASED: 45-59 ml/min/1.73 m2 G3B,MODERATELY TO SEVERELY DECREASED: 30-44 ml/min/1.73 m2 G4,SEVERELY DECREASED: 15-29 ml/min/1.73 m2 G5,KIDNEY FAILURE: <15 ml/min/1.73 m2 01/06/2023 12:0 7 PM ASSAYER HELPER Kodak Lora MD LABORATORY Final Result [facility] [address] [place] [address], [id number] * (ABNORMAL) CBC W/DIFF AUTOMATED (01/06/2023 12:07 PM ASSAYER HELPER) WBC 8.52 4.00 - 10.80 x10'3/uL 01/06/2023 12:15 PM [facility] RBC 4.07(L) 4.10 - 5.40 x10'6/uL 01/06/2023 12:15 PM [facility] HGB 12.2 12.0 - 16.0 G/DL 01/06/2023 12:15 PM [facility] HCT 38.2 36.0 - 47.0 % 01/06/2023 12:15 PM [facility] MCV 93.9 78.0 - 100.0 FL 01/06/2023 12:15 PM [facility] MCH 30.0 27.0 - 31.0 PG 01/06/2023 12:15 PM [facility] MCHC 31.9(L) 33.0 - 36.0 G/DL 01/06/2023 12:15 PM [facility] RDW 13.6 11.5 - 14.5 % 01/06/2023 12:15 PM [facility] PLT 216 150 - 350 x10'3/uL 01/06/2023 12:15 PM [facility] MPV 11.4(H) 7.4 - 10.4 FL 01/06/2023 12:15 PM [facility] ABS. NEUTROPHILS 6.62 1.60 - 8.30 x10'3/uL 01/06/2023 12:15 PM [facility] ABS. LYMPHOCYTES 1.18 0.80 - 4.70 x10'3/uL 01/06/2023 12:15 PM [facility] ABS. MONOCYTES 0.39 0.00 - 1.50 x10'3/uL 01/06/2023 12:15 PM [facility] ABS. EOSINOPHILS 0.24 0.00 - 0.40 x10'3/uL 01/06/2023 12:15 PM [facility] ABS. BASOPHILS 0.03 0.00 - 0.20 x10'3/uL 01/06/2023 12:15 PM ASSAYER HELPER [facility] ABS. IMMATURE GRANULOCYTES 0.06(H) 0.00 - 0.03 x10'3/uL 01/06/2023 12:15 PM ASSAYER HELPER [facility] ABS. NUCLEATED RBC'S 0.00 0.0 x10'3/uL 01/06/2023 12:15 PM ASSAYER HELPER [facility] 01/06/2023 12:0 7 PM ASSAYER HELPER Kodak Lora MD LABORATORY Final Result [facility] [address] [place] [address], [id number] * XR CHEST PA+LAT (01/06/2023 12:07 PM ASSAYER HELPER) Anatomical Region Laterality Modality Chest Radiographic Jessica ging 01/06/2023 12:2 5 PM ASSAYER HELPER Impressions 01/06/2023 12:31 PM ASSAYER HELPER IMPRESSION: Mild interstitial prominence in both lungs without focal pulmonary consolidation, that is nonspecific, but can be seen in the setting of asthma, bronchitis, and/or viral illness. Referred By: ?? Interpreted By: Rodney Yen DO, 01/06/2023 12:25 PM Narrative 01/06/2023 12:31 PM ASSAYER HELPER EXAMINATION: XR CHEST PA+LAT EXAM DATE: 01/06/2023 12:02 PM CLINICAL HISTORY: Shortness of breath upon exertion. ??Feeling short of breath for 2 weeks. COMPARISON: None. TECHNIQUE: Upright AP and lateral views of the chest. FINDINGS: The cardiomediastinal silhouette is normal in size. ??There is the appearance of dextrocardia on the submitted image, however the contralateral hemidiaphragm appears slightly elevated relative to the anterolateral hemidiaphragm, suggesting that the image was horizontally inverted and in speaking to the performing technologist, this was confirmed. ??Pulmonary vasculature is appropriately distributed. ??There is mild interstitial prominence in both lungs without focal pulmonary consolidation, that is nonspecific, but can be seen in the setting of asthma, bronchitis, and/or viral illness. ??There is no pleural effusion or pneumothorax. Procedure Note Rodney Yen DO - 01/06/2023 EXAMINATION: XR CHEST PA+LAT EXAM DATE: 01/06/2023 12:02 PM CLINICAL HISTORY: Shortness of breath upon exertion. Feeling short ofbreath for 2 weeks. COMPARISON: None. TECHNIQUE: Upright AP and lateral views of the chest. FINDINGS: The cardiomediastinal silhouette is normal in size. There is theappearance of dextrocardia on the submitted image, however thecontralateral hemidiaphragm appears slightly elevated relative to theanterolateral hemidiaphragm, suggesting that the image was horizontallyinverted and in speaking to the performing technologist, this wasconfirmed. Pulmonary vasculature is appropriately distributed. There ismild interstitial prominence in both lungs without focal pulmonaryconsolidation, that is nonspecific, but can be seen in the setting ofasthma, bronchitis, and/or viral illness. There is no pleural effusion orpneumothorax. IMPRESSION: Mild interstitial prominence in both lungs without focal pulmonaryconsolidation, that is nonspecific, but can be seen in the setting ofasthma, bronchitis, and/or viral illness. Referred By: Interpreted By: Rodney Yen DO, 01/06/2023 12:25 PM Kodak Lora MD GENERAL IMAGING Final Result * ECG 12 lead (01/06/2023 11:56 AM ASSAYER HELPER) 01/06/2023 11:5 6 AM ASSAYER HELPER Narrative [facility] - 01/06/2023 12:52 PM ASSAYER HELPER ?SJS-ED ? Test Date: ?2023-01-06 Pat Name: ? ALONA KEMP ?Department: ?? 70 ? Room: ? EXAM GG Gender: ? Female ? Oncology Navigator: ?? J PORTER : ?1970 ? Requested By: KODAK LORA Order Number: [id number] ? Reading MD: ?? Hadley Field ? Measurements Intervals ?Bronson ? Rate: ? 85 ? P: ?28 OK: ? 146 ?QRS: ?-8 QRSD: ? 94 ? T: ?17 QT: ? 371 ? QTc: ?441 ? Interpretive Statements SINUS RHYTHM MODERATE VOLTAGE CRITERIA FOR LVH, CONSIDER NORMAL VARIANT ??[MEETS CRITERIA IN ONE OF: R(aVL), S(V1), R(V5), R(V5/V6)+S(V1)] YER HELPER Procedure Note Hadley Field MD - 01/06/2023 SJS-ED Test Date: 2023-01-06 Pat Name: ALONA KEMP Department: 70 Room: EXAM GG Gender: Female Oncology Navigator: Roger BUENROSTRO : 1970 Requested By: KODAK LORA Order Number: [id number] Tessie MD: Hadley Field Measurements Intervals Bronson Rate: 85 P: 28 OK: 146 QRS: -8 QRSD: 94 T: 17 QT: 371 QTc: 441 Interpretive Statements SINUS RHYTHM MODERATE VOLTAGE CRITERIA FOR LVH, CONSIDER NORMAL VARIANT [MEETSCRITERIA IN ONE OF: R(aVL), S(V1), R(V5), R(V5/V6)+S(V1)] YER HELPER us Kodak Lora MD ECG ORDERABLES Final Result [facility] documented in this encounter Visit Diagnoses Diagnosis Shortness of breath- Primary documented in this encounter Administered Medications Inactive Administered Medications - up to 3 most recent administrations Medication Order MAR Action Action Date Dose Rate Site iopamidol (ISOVUE-370) 76 % injection 70 mL 70 mL, Intravenous, IMG once as needed, Contrast, 1 dose, Starting on Mon01/06/23 at 1335, Until Mon01/06/23 at 1335 Given 01/06/2023 1:35 PM ASSAYER HELPER 70 mLs documented in this encounter Active and Recently Administered Medications Times are shown in ASSAYER HELPER. PRN Medication Order 01/04/2023 01/05/2023 01/06/2023 iopamidol (ISOVUE-370) 76 % injection 70 mL (COMPLETED) 70 mL, Intravenous, IMG once as needed, Contrast, 1 dose, Starting on Mon01/06/23 at 1335, Until Mon01/06/23 at 1335 1335 (Given - Provid er: Radha Ibrahim, RTR) documented in this encounter Care Teams Combination Presser Relationship Specialty Start Date End Date None, Provider, MD PCP - General UNKNOWN PHYSICIAN SPECIALTY 01/06/23 documented as of this encounter
--- OUTSIDE RECORDS SUMMARY | 2024-03-03 19:25 | XMS_ITS | Encounter Summary ---
Author Organization [facility] Address [address] [place] [address] Phone Care Team Providers Care Herb Counselor Name Role Phone Daja Kern MD Primary Care Provider [phone] Baron Vergara MD Unavailable Reason for Referral * Radiology Services (Routine) - Closed Specialty Diagnoses / Procedures Referred By Ladi t Referred To Contact Radiology Diagnoses Breast pain, left Procedures KIMBERLY DIAG BILATERAL DIGITAL W CAD W Trupti Ramirez MD [address] [place] [address] Phone: tel: fax: Referral ID Status Reason Start Date Expiration Date Visits Re quested Visits Authorized [id number] Closed 10/05/2023 1 1 Encounter Details Date Type Department Care Team (Late st Contact Info) Description 10/05/2023 Transcribe Orders [facility] Central Scheduling [address] [place] [address] Trupti Mejia MD [address] [place] [address] Breast pain, left (Primary Dx) Social History Tobacco Use Types Packs/Day Years Used Date Smoking Tobacco: Never Smokeless Tobacco: Never Alcohol Use Standard Drinks/Week Comments No 0 (1 standard drink = 0.6 oz pur e alcohol) [facility] Utilities Answer Date Recorded In the [...] declined 05/22/2023 How often do you attend latter day or cheondoism serv ices? Patient declined 05/22/2023 Do you belong to any clubs o r organizations such as latter day groups, unions, fraternal or athletic groups, or [...] medical care, and heating? Patient declined 05/22/2023 [facility] - Occupational [...] a fdc (including now)? Patient declined 05/22/2023 Sexually Active [...] st Contact Info) Description 03/27/2024 8:30 AM TODDLER NANNY [facility] [address] [place] [address] Burt Eastman MD [address] [address] 03/27/2024 8:30 AM TODDLER NANNY - 03/27/2024 9:00 AM TODDLER NANNY [facility] 1 [facility] [place] [address] Burt Eastman MD [address] [place] [address] COLONOSCOPY 04/09/2024 1:15 PM TODDLER NANNY [facility] - [place] [address] [place] [address] Baron Vergara MD [address] [place] [address] Scheduled Procedures Name Priority Associated Diagnoses Date/Ti me COLONOSCOPY HISTORY OF COLON POLYPS 03/27/2024 8:30 AM TODDLER NANNY documented as of this encounter Results * KIMBERLY DIAG BILATERAL DIGITAL W CAD W [place] (11/16/2023 1:57 PM CDT) Anatomical Region Laterality Modality breast Bilateral Mammography 11/16/2023 1:24 PM CDT Narrative 11/17/2023 10:26 AM CDT - KIMBERLY DIAG BILATERAL DIGITAL W CAD W [facility] US BREAST LIMITED LT BILATERAL DIGITAL [...] to exams dated: ??12/29/2018, 07/29/2020, [facility] ?? BREAST TISSUE:There are scattered areas [...] Nael Alvarenga M.D. ? ll/:11/16/2023 14:35:56 ?? College Physics Instructor(s): Tara ?? RT Shaun(R)(M), [facility]; Rosemarie ??SEBASTIAN Villagran OBGYN, [facility] letter sent: Normal Exam ?? Reading location: [...] to exams dated: 12/29/2018, 07/29/2020, and 08/25/2015 [facility]. BREAST TISSUE:There are scattered areas of fibroglandular [...] signed by: Nael Alvarenga M.D. ll/:11/16/2023 14:35:56 College Physics Instructor(s): Tara Shaun, RT(R)(M), [facility]; Rosemarie Villagran, SEBASTIAN OBGYN, [facility] letter sent: Normal Exam Reading location: [facility] OVERALL STUDY BIRADS: Category 1: Negative us Trupti Mejia MD IMG MAMMO ORDERABLES Final Re sult documented in this encounter Visit Diagnoses Diagnosis Breast pain, left- Primary Mastodynia Breast pain, left Mastodynia documented in this encounter Care Teams Herb Counselor Relationship Specialty Start Date End Date Daja Kern MD [address] [place] [address] PCP - General Internal Medicine 03/13/15 Baron Vergara MD [address] [place] [address] Consulting Physician Pulmonary Disease 06/26/23 documented as of this encounter
--- OUTSIDE RECORDS SUMMARY | 2024-03-03 19:26 | XMS_ITS | Encounter Summary ---
Author Organization [facility] Address [address] [place] [address] Phone Care Team Providers Care Front End Developer Designer Name Role Phone Daja Kern MD Primary Care Provider [phone] Reason for Visit * Reason Onset Date Comments Follow-up 05/24/2023 Encounter Details Date Type Department Care Team (Late st Contact Info) Description 05/24/2023 Post Discharge Follow-up [facility] Nursing Services [address] [place] [address] Marina Vázquez, RN [place] Social History Tobacco Use Types Packs/Day Years [...] declined 05/22/2023 How often do you attend worship or synagogue serv ices? Patient declined 05/22/2023 [...] medical care, and heating? Patient declined 05/22/2023 [facility] - Occupational Stress [...] encounter Miscellaneous Notes * Telephone Encounter - Marina Vázquez RN - 05/24/2023 2:52 PM CDT Called patient to see how she is feeling post discharge from the hospital. Patient states she is getting better. Medications were picked up and are being taken as prescribed. Patient has PCP follow up appointment. Instructed patient to callback with any questions or concerns. documented in this encounter Plan of Treatment Upcoming Encounters Date Type Department Care Team (Late st Contact Info) Description 03/27/2024 8:30 AM CIGARETTE SELLER [facility] [address] [place] [address] Burt Eastman MD [address] [address] 03/27/2024 8:30 AM CIGARETTE SELLER - 03/27/2024 9:00 AM CIGARETTE SELLER [facility] [address] [place] [address] Burt Eastman MD [address] [address] COLONOSCOPY 04/09/2024 1:15 PM CIGARETTE SELLER Office Visit [facility] - Pulmonology & [facility] Medicine - [place] [address] [facility] [place] [address] Baron Vergara MD [address] [facility] [place] [phone] Scheduled Procedures Name Priority Associated Diagnoses Date/Ti me COLONOSCOPY HISTORY OF COLON POLYPS 03/27/2024 8:30 AM CIGARETTE SELLER documented as of this encounter Visit Diagnoses Not on filedocumented in this encounter Care Teams Front End Developer Designer Relationship Specialty Start Date End Date Daja Kern MD [address] [place] [address] PCP - General Internal Medicine 03/13/15 documented as of this encounter
--- OUTSIDE RECORDS SUMMARY | 2024-03-03 19:26 | XMS_ITS | Encounter Summary ---
Author Organization [facility] Address [address] [place] [address] Phone Care Team Providers Care Manager Inside Name Role Phone Daja Kern MD Primary Care Provider Baron Vergara MD Unavailable Reason for Visit * Reason Comments Sleep Apnea Encounter Details Date Type Department Care Team (Late st Contact Info) Description 10/03/2023 1:15 PM CDT Office Visit [facility] - Pulmonology & Sleep Medicine [facility] [address] [place] [address] Baron Vergara MD [address] [place] [id number] KWABENA (obstructive sleep apnea) (Primary Dx); Morbid obesity (HCC); Cocaine abuse (HCC); Primary hypertension; Anxiety Discharge Disposition: Discharged to home or Selfcare Social History Tobacco Use Types Packs/Day Years Used Date Smoking Tobacco: Never Smokeless Tobacco: Never Tobacco Cessation:Counseling Given: Not Answered Alcohol Use Standard Drinks/Week Comments No 0 (1 standard drink = 0.6 oz pur e alcohol) [facility] Utilities Answer Date Recorded In the past 12 months has e [employer], gas, oil, or water [employer] threatened to shut off services in your home? Patient declined 05/22/2023 Social Connection and Isolation Panel [NHANES] A nswer Date Recorded In a typical week, how many times do you talk on the phone with family, friends, or neighbors? Patient declined 05/22/2023 How often do you get togethe r with friends or relatives? Patient declined 05/22/2023 How often do you attend jainism or taoism serv ices? Patient declined 05/22/2023 Do you belong to any clubs o r organizations such as jainism groups, unions, fraternal or athletic groups, or [...] medical care, and heating? Patient declined 05/22/2023 [facility] - Occupational [...] place to sleep or slept in a [facility] (including now)? Patient declined 05/22/2023 Sexually Active [...] Sign Reading Time Taken Comments Blood Pressure 144/82 10/03/2023 1:25 PM CDT Pulse 89 10/03/2023 1:25 PM CDT Temperature 36.3 ??C (97.3 ??F) 10/03/2023 1:25 PM CD T Respiratory Rate 14 10/03/2023 1:25 PM CDT Oxygen Saturation 97% 10/03/2023 1:25 PM CDT Inhaled Oxygen Concentration - - Weight 126.4 kg (278 lb 11.2 oz) 10/03/2023 1:25 PM CDT Height 157.5 cm (5' 2 ) 10/03/2023 1:25 PM CDT Body Mass Index 50.97 10/03/2023 1:25 PM CDT documented in this encounter Progress Notes * Baron Vergara MD - 10/03/2023 1:15 PM CDT Images from the original note were not included. Progress Note Subjective: HPI: Alona Kemp is a 52 y.o. female with following problems came for a follow-up Occasional cough Non smoker Has SOB and ARTHUR Denies GERD Reviewed SD card data she using CPAP more than 4 hours 53% time CPAP is set at 12 cm water overall AHI is 4.1 Has nasal pillows Less EDS Sleep study done in July 17, 2023 showed rule 1A AHI is 89.1 overall SD be index is 89.8 patient needs a CPAP pressure of 12 cm water PFT's done in July 17, 2023 showed no evidence of airways obstruction or airways restriction diffusion capacity is normal Problem List: Patient Active Problem List Diagnosis Date Noted Vitamin D deficiency 01/02/2023 KWABENA (obstructive sleep apnea) 01/02/2023 Nephrocalcinosis 01/02/2023 NAFLD (nonalcoholic fatty liver disease) 01/02/2023 IBS (irritable bowel syndrome) 01/02/2023 HTN (hypertension) 01/02/2023 DDD (degenerative disc disease), lumbar 01/02/2023 Cocaine abuse ([facility]) 01/02/2023 Adenomatous colon polyp 01/02/2023 Stimulant withdrawal ([facility]) 01/02/2023 Influenza A 02/09/2022 Influenza A H1N1 infection 02/08/2022 COVID-19 virus infection 02/08/2022 Small bowel obstruction (HCC) 08/03/2021 Anxiety 08/03/2021 Type 2 diabetes mellitus, without long-term current use of insulin ([facility]) 08/03/2021 Dehydration 08/03/2021 UTI (urinary tract infection) 08/03/2021 Morbid obesity ([facility]) 02/20/2021 Sepsis ([facility]) 10/03/2018 Enterocolitis 10/03/[address] scan 10/03/2018 GERD (gastroesophageal reflux disease) HLD (hyperlipidemia) Bipolar disorder ([facility]) Depression Hypothyroid SBO (small bowel obstruction) ([facility]) 09/2018 Lumbar pars defect 08/09/2017 Lumbar facet arthropathy 08/09/2017 Past Medical History: has a past medical history of Adenomatous colon polyp, Anxiety, Bipolar disorder ([facility]), Cocaine abuse ([facility]), COPD (chronic obstructive pulmonary disease) ([facility]), DDD (degenerative disc disease), lumbar, Depression, Diabetes mellitus ([facility]), GERD (gastroesophageal reflux disease), HLD (hyperlipidemia), HTN (hypertension), Hypothyroid, IBS (irritable bowel syndrome), Morbid obesity ([facility]), NAFLD (nonalcoholic fatty liver disease), Nephrocalcinosis, KWABENA (obstructive sleep apnea), SBO (small bowel obstruction) ([facility]) (09/2018), and Vitamin D deficiency. Past Surgical History: has a past surgical history that includes Section (1994); Cholecystectomy (2004); EGD (2012?); Colonoscopy; [place] Tooth Extraction (1991); Colonoscopy (N/A, 11/16/2018); and Upper Gastrointestinal Endoscopy (N/A, 02/06/2019). Family History: family history includes Depression in her brother and mother; Diabetes in her maternal uncle and mother; Hypertension in her mother; No Known Problems in her daughter; Obstructive Sleep Apnea in her brother. Social History: reports that she has never smoked. She has never used smokeless tobacco. She reports current drug use. Drug: Crack cocaine. She reports that she does not drink alcohol. Allergies: Allergies Description Type Start Date End Date Comment Verified Lube Attendant Risperidone Intolerance 09-Aug-2017 Severity: High Reactions: Other (see Comments) Comment: Violentand agitated. Jarvis Hopkins PAC ([employer]) Sulfa Antibiotics Allergy 01-Sep-2015 Severity: Medium Reactions: Sandra Quinn RN Topiramate Intolerance 09-Aug-2017 Severity: High Reactions: Other (see Comments) Comment: Difficulty with speech and word finding. Jarvis Hopkins PAC ([employer]) Ziprasidone Hcl Unknown 09-Aug-2017 Severity: High Reactions: Other (see Comments) Comment: Abnormal mouth movements Jarvis Hopkins, PAC ([employer] Planner) Medication List: Current Outpatient Medications Medication Sig Dispense Refill [...] Take 1 Capsule by mouth every morning. No current facility-administered medications for this visit. Review of Systems Constitutional: negative Eyes: negative Ears, nose, mouth, throat, and face: negative Respiratory: negative Cardiovascular: negative Gastrointestinal: negative Genitourinary:negative Integument/breast: negative Hematologic/lymphatic: negative Musculoskeletal:negative Neurological: negative Behvioral/Psych: negative Endocrine: negative Allergic/Immunologic: Allergies Allergen Reactions Geodon [Ziprasidone Hcl] Other (see Comments) Abnormal mouth movements Risperdal [Risperidone] Other (see Comments) Violent and agitated. Topamax [Topiramate] Other (see Comments) Difficulty with speech and word finding. Sulfa Antibiotics Hives Objective: Vitals: Blood pressure 144/82, pulse 89, temperature 97.3 ??F (36.3 ??C), resp. rate 14, height 5' 2 (1.575 m), weight 278 lb 11.2 oz (126.4 kg), last menstrual period 11/12/2019, SpO2 97%. Gen/Constitutional: Obese no distress HEENT: Normocephalic, atraumatic. PERRLA, No oropharyngeal lesions or masses, external ears and nose shows no lesions or scars. Pupils reacted to light Neck: Supple, no JVD, no lymphadenopathy, no thyromegaly, no carotid bruits, no stridor, trachea midline Chest: non tender to palpation, without deformity Respiratory: No wheezing Heart: Regular rate and rhythm, no murmurs, clicks, gallops, or rubs, radial pulses bilaterally equal Abd: Soft, nontender, bowel sounds present, no hepatosplenomegaly. Ext: No edema Neuro: Alert, Oriented to person, place and time. Normal mood and affect. Skin: Warm and dry, without lesions Musculoskeletal: Normal gait and station, strength equal and normal and full ROM in all 4 extremities Assessment & Plan: ICD-10-CM 1. KWABENA (obstructive sleep apnea) G47.33 2. Morbid obesity (HCC) E66.01 3. Cocaine abuse (HCC) F14.10 4. Primary hypertension I10 5. Anxiety F41.9 Plan: Continue CPAP Discussed sleep hygiene Continue antihypertensives Anxiolytics Abstinence from cocaine Counseled on heart healthy diet and exercise Discuss results of sleep study and PFT's with her Return in about 6 months (around 04/04/2024). Documentation for this visit on October 02 was completed using a template. I have seen and examinedthe patient. Everything documented was personally performed at this visit with the necessary additions, deletions and changes made as appropriate. Baron Vergara MD 10/03/2023 1:53 PM CDT documented in this encounter Plan of Treatment Upcoming Encounters Date Type Department Care Team (Late st Contact Info) Description 03/27/2024 8:30 AM MAGNAFLUX OPERATOR Hospital Encounter [facility] [address] [place] [address] Burt Eastman MD [address] [id number] 03/27/2024 8:30 AM MAGNAFLUX OPERATOR - 03/27/2024 9:00 AM MAGNAFLUX OPERATOR Surgery [facility] [address] [place] [address] Burt Eastman MD [address] [address] COLONOSCOPY 04/09/2024 1:15 PM MAGNAFLUX OPERATOR Office Visit [facility] - Pulmonology & Sleep Medicine [facility] [address] [place] [address] Baron Vergara MD [address] [place] [address] Scheduled Procedures Name Priority Associated Diagnoses Date/Ti me COLONOSCOPY HISTORY OF COLON POLYPS 03/27/2024 8:30 AM MAGNAFLUX OPERATOR documented as of this encounter Visit Diagnoses Diagnosis KWABENA (obstructive sleep apnea)- Primary Obstructive sleep apnea (adult) (pediatric) Morbid obesity (HCC) Morbid obesity Cocaine abuse (HCC) Cocaine abuse, unspecified Primary hypertension Unspecified essential hypertension Anxiety Anxiety state, unspecified documented in this encounter Care Teams Manager Inside Relationship Specialty Start Date End Date Daja Kern MD [address] [place] [address] PCP - General Internal Medicine 03/13/15 Baron Vergara MD [address] [place] [address] Consulting Physician Pulmonary Disease 06/26/23 documented as of this encounter
--- OUTSIDE RECORDS SUMMARY | 2024-03-03 19:26 | XMS_ITS | Encounter Summary ---
Author Organization [facility] Address [address] [place] [address] Phone Care Team Providers Care Silk Screen Operator Name Role Phone Daja Carballo MD Primary Care Provider [phone] Reason for Visit * Reason Comments Chest Congestion * Auth/Cert (Routine) Specialty Diagnoses / Procedures Referred By Contnadira t Referred To Contact Diagnoses Mild intermittent asthma with acute exacerbation Acute on chronic respiratory failure with hypercapnia (HCC) Adeline Villalobos MD [address] [place] [address] Phone: tel: fax: Referral ID Status Reason Start Date Expiration Date Visits Re quested Visits Authorized [id number] 1 1 Encounter Details Date Type Department Care Team (Late st Contact Info) Description 04/30/2023 3:05 PM BLOOD DONOR RECRUITER SUPERVISOR - 05/02/2023 1:32 PM BLOOD DONOR RECRUITER SUPERVISOR Emergency [facility] Med Surg [address] [place] [address] Carlos Fuchs MD [address] [place] [address] Adeline Villalobos MD [address] [place] [address] Alicia Romero MD [address] [place] [address] Acute respiratory failure with hypoxia (HCC) Discharge Disposition: Home Health Care Svc Social History Tobacco Use Types Packs/Day Years Used Date Smoking Tobacco: Never Smokeless Tobacco: Never Alcohol Use Standard Drinks/Week Comments No 0 (1 standard drink = 0.6 oz pur e alcohol) [facility] Utilities Answer Date Recorded In the past 12 months has th e electric, gas, oil, or water company threatened to shut off services in your home? No 04/30/2023 Hunger Vital Sign Answer Date Recorded Within the past 12 months, y ou worried that your food would run out before you got the money to buy more. Never true 04/30/19 24 Within the past 12 months, t he food you bought just didn't last and you didn't have money to get more. Never true 04/30/2023 PRAPARE - Transportation Answer Date Re corded In the past 12 months, has l ack of transportation kept you from medical appointments or from getting medications? No 04/2023 In the past 12 months, has l ack of transportation kept you from meetings, work, or from getting things needed for daily living? No 04/30/2023 Housing Stability Vital Sign Answer [place] e Recorded In the last 12 months, was t here a time when you were not able to pay the mortgage or rent on time? No 04/30/2023 In the last 12 months, how many places have you lived? 1 04/30/2023 In the last 12 months, was t here a time when you did not have a steady place to sleep or slept in a penitentiary (including now)? No 04/30/2023 Sexually Active Control Partners Comments Yes None Male Comments No Sex and Gender Information Value Date Recorded Sex Assigned at Female 06/02/2023 1:39 AM CDT Legal Sex Female 11:06 PM CDT Gender Identity Female 06/02/2023 1:39 AM CDT Sexual Orientation Straight 06/02/2023 1: 39 AM CDT documented as of this encounter Last Filed Vital Signs Vital Sign Reading Time Taken Comments Blood Pressure 153/111 05/02/2023 5:04 AM BLOOD DONOR RECRUITER SUPERVISOR Pulse 96 05/02/2023 8:11 AM BLOOD DONOR RECRUITER SUPERVISOR Temperature 36.7 ??C (98 ??F) 05/02/2023 5:04 AM BLOOD DONOR RECRUITER SUPERVISOR Respiratory Rate 16 05/02/2023 8:11 AM BLOOD DONOR RECRUITER SUPERVISOR Oxygen Saturation 94% 05/02/2023 8:11 AM BLOOD DONOR RECRUITER SUPERVISOR Inhaled Oxygen Concentration - - Weight 122.1 kg (269 lb 1.6 oz) 05/02/2023 5:04 AM BLOOD DONOR RECRUITER SUPERVISOR Height 157.5 cm (5' 2 ) 04/30/2023 7:03 PM BLOOD DONOR RECRUITER SUPERVISOR Body Mass Index 49.22 04/30/2023 7:03 PM BLOOD DONOR RECRUITER SUPERVISOR documented in this encounter Functional Status * Within the last year, have you been humiliated or emotionally abused in other ways by your partner or ex-partner? Answer Date of Assessment Author No 04/30/2023 7:07 PM BLOOD DONOR RECRUITER SUPERVISOR Aryan Rodriguez RN * Within the last year, have you been afraid of your partner or ex-partner? Answer Date of Assessment Author No 04/30/2023 7:07 PM BLOOD DONOR RECRUITER SUPERVISOR Aryan Rodriguez RN * Within the last year, have you been raped or forced to have any kind of sexual activity by your partner or ex-partner? Answer Date of Assessment Author No 04/30/2023 7:07 PM BLOOD DONOR RECRUITER SUPERVISOR Aryan Rodriguez RN * Within the last year, have you been kicked, hit, slapped, or otherwise physically hurt by your partner or ex-partner? Answer Date of Assessment Author No 04/30/2023 7:07 PM BLOOD DONOR RECRUITER SUPERVISOR Aryan Rodriguez RN documented as of this encounter Discharge Summaries * Alicia Romero MD - 05/02/2023 9:21 AM CST [facility] DISCHARGE SUMMARY Name: Alona Kemp Age: 52 y.o. : 1970 Attending Physician: Alicia Romero MD Admission Date/Time: 04/30/2023 Discharge Date: 05/02/2023 Primary Care Physician: DAJA CARBALLO MD Discharging Provider: Alicia Romero MD INSTRUCTIONS FOR PHYSICIANS ON FOLLOW UP AFTER DISCHARGE: Follow-up with PCP: DAJA CARBALLO MD in 1 week Recommended Tests/Labs to order at follow-up: None Pending Labs/Path/Imaging: None Discharge Instructions: Discharge Condition: improved Disposition: Home Diet: Cardiac Diet Activity: activity as tolerated Primary Discharge Diagnosis: Acute respiratory failure with hypoxia (HCC), asthma exacerbation, anxiety, depression, hypertension, hyperlipidemia, crack cocaine use, hypothyroidism, GERD, diabetes type 2 Discharge Diagnoses: As above Active Hospital Problems Diagnosis Date Noted Crack cocaine use [F14.90] 04/30/2023 KWABENA (obstructive sleep apnea) [G47.33] 01/02/2023 HLD (hyperlipidemia) [E78.5] 01/02/2023 HTN (hypertension) [I10] 01/02/2023 Anxiety [F41.9] 08/03/2021 Depression [F32.A] Bipolar disorder (HCC) [F31.9] Hypothyroid [E03.9] GERD (gastroesophageal reflux disease) [K21.9] Resolved Hospital Problems Diagnosis Date Noted Date Resolved Acute respiratory failure with hypoxia (HCC) [J96.01] 02/08/2022 05/02/2023 Asthma exacerbation [J45.901] 04/30/2023 05/02/2023 Admitting Diagnoses: As above HOSPITAL COURSE: Alona Kemp was admitted 04/30/2023 with Acute respiratory failure with hypoxia (HCC) . Surgeries performed during stay: * No surgery found * Consults: Treatment Team: Consulting Physician: Braon Vergara MD Patient was admitted on 04/30/2023 for evaluation of shortness of breath symptoms. Acute respiratory failure with hypoxia due to asthma exacerbation was noted, and patient had received supportive management with nebulizers and IV steroids. Through which, patient's breathing abilities have returned back to baseline. Patient will complete course of prednisone taper as a part of discharge plan of care. Patient follow-up with PCP in 1 week and with credit collections rep in 2 weeks. During hospitalization, patient's home regimen metformin was held, A1c level has returned at 6.9. As part of discharge plan of care, patient will continue home regimen metformin. Exam Day of Discharge: Temp Av.4 ??F (36.9 ??C) Min: 98 ??F (36.7 ??C) Max: 98.6 ??F (37 ??C) BP Min: 123/75 Max: 153/111 Pulse Av.7 Min: 93 Max: 119 Resp Av Min: 22 Max: 24 SpO2 Av % Min: 93 % Max: 99 % O2 Flow Rate [...] Review: Lab Results Component Value Date WBC 14.19 (H) 05/02/2023 HEMOGLOBIN 12.7 05/02/2023 HEMATOCRIT 39.9 05/02/2023 PLATELETCNT 226 05/02/2023 MCV 93.4 05/02/2023 Lab Results Component Value Date SODIUM 136 05/02/2023 POTASSIUM 4.3 05/02/2023 CHLORIDE 99 05/02/2023 CO2VEN 29 05/02/2023 ANIONGAP 12.3 05/02/2023 GLUCOSE 233 (H) 05/02/2023 BUN 19 05/02/2023 CREATININE 0.78 05/02/2023 BCRATIO8 24 (H) 05/02/2023 TOTALPROTEIN 7.2 04/30/2023 ALBUMIN 3.3 (L) 04/30/2023 CALCIUM 8.5 (L) 05/02/2023 TBIL 0.6 04/30/2023 SGOTAST 14 04/30/2023 SGPTALT 21 04/30/2023 ALKALINEPHO 94 04/30/2023 GFRNA >60 05/02/2023 GFRA >60 05/02/2023 Lab Results Component Value Date GLUCOSEPOCT 175 (H) 05/02/2023 Lab Results Component Value Date INR 1.1 01/02/2023 PTP 13.8 01/02/2023 Lab Results Component Value Date HGBA1C 6.9 (H) 05/01/2023 Lab Results Component Value Date [id number] 251 08/25/2015 Lab Results Component Value Date CPK 67 10/02/2022 TROPONINI <0.300 02/08/2022 Lab Results Component Value Date FERRITIN 18 08/25/2015 No results found for: FOLATE Lab Results Component Value Date PHARTERIAL 7.37 04/30/2023 PO2ART 66 (L) 04/30/2023 [id number] 59 (H) 04/30/2023 O2ART 89 (L) 04/30/2023 Lab Results Component Value Date LACTICA 1.8 09/10/2022 XR CHEST SINGLE VIEW PORTABLE Result Date: 04/30/2023 IMPRESSION: No acute cardiopulmonary abnormality. No infiltrate. DISCHARGE MEDICATION LIST: Medication List START taking these medications albuterol (2.5 MG/3ML) 0.083% Nebu Commonly known as: PROVENTIL, VENTOLIN 3 mL by Nebulization route every 6 hours as needed for Wheezing. benzonatate 100 MG Caps Commonly known as: TESSALON Take 1 Capsule by mouth every 8 hours as needed for Cough for up to 10 days. predniSONE 10 MG Tabs Commonly known as: DELTASONE Take 4 Tablets by mouth daily for 2 days, THEN 3 Tablets daily for 2 days, THEN 2 Tablets daily for2 days, THEN 1 Tablet daily for 2 days, THEN 0.5 Tablets daily for 2 days. Start taking on: May 02, 2023 CONTINUE taking these medications benztropine 0.5 MG Tabs Commonly known as: COGENTIN DULoxetine 20 MG Cpep Commonly known as: CYMBALTA folic acid 1 MG Tabs Commonly known as: FOLVITE Take 1 Tablet by mouth daily. furosemide 20 MG Tabs Commonly known as: LASIX Take 1 Tablet by mouth daily. hydrOXYzine 50 MG Tabs Commonly known as: ATARAX Take 1 Tablet by mouth every 6 hours as needed for Anxiety (Mild anxiety). irbesartan 150 MG Tabs Commonly known as: AVAPRO levothyroxine 50 MCG Tabs Commonly known as: SYNTHROID metoprolol Succinate 25 MG Tab-sr-24hr Commonly known as: TOPROL-XL miconazole 2 % Powd Apply on the groin region. omeprazole 40 MG Cap-del-rel Commonly known as: PriLOSEC Take 1 Capsule by mouth daily. ondansetron 4 MG Tab-disperse Commonly known as: ZOFRAN-ODT Take 1 Tablet by mouth every 6 hours as needed for Nausea - 1st line (for nausea or vomiting). rOPINIRole 0.5 MG Tabs Commonly known as: REQUIP Take 1 Tablet by mouth every 12 hours as needed for Other (For restless legs). senna 8.6 MG Tabs Commonly known as: SENOKOT Take 2 Tablets by mouth nightly as needed for Constipation - 1st line. simvastatin 10 MG Tabs Commonly known as: ZOCOR traZODone 50 MG Tabs Commonly known as: DESYREL triamterene-hydrochlorothiazide 37.5-25 MG Caps Commonly known as: DYAZIDE Where to Get Your Medications Information about where to get these medications is not yet available Ask your nurse or doctor about these medications albuterol (2.5 MG/3ML) 0.083% Nebu benzonatate 100 MG Caps predniSONE 10 MG Tabs Time spent on interview, examination, final orders, recommendations, and care coordination for thishospital discharge: Greater than 30 minutes spent in coordinating care --- 32 minutes Thank you very much for allowing the [facility] Adult Hospitalist Service to participate in the care of this patient. If you have any questions, please don't hesitate to call. Signed: Alicia Romero MD, 05/02/2023, 9:21 AM BLOOD DONOR RECRUITER SUPERVISOR D DONOR RECRUITER SUPERVISOR documented in this encounter Discharge Instructions * Appointments* Alicia Romero MD - 05/02/2023 9:14 AM BLOOD DONOR RECRUITER SUPERVISOR Complete course of prednisone taper Follow-up with PCP 1 week Follow-up with credit collections rep in 2 weeks D DONOR RECRUITER SUPERVISOR documented in this encounter Medications at Time of Discharge albuterol (PROVENTIL, VENTOLIN) (2.5 MG/3ML) 0.083% Nebulizer SolnIndications:A cute respiratory failure with hypoxia (HCC),Asthma exacerbation 3 mL by Nebulization route every 6 hours as needed for Wheezing. 360 mL 05/02/2023 benztropine (COGENTIN) 0.5 MG Tablet Take 0.5 mg by mouth nightly. DULoxetine (CYMBALTA) [address] Particles Take 90 mg by mouth daily. irbesartan (AVAPRO) 150 MG Tablet Take 300 [...] Take 1 Capsule by mouth every morning. benzonatate (TESSALON) 100 MG Capsule Take 1 Capsule by mouth every 8 hours as needed for Cough for up to 10 days. 30 Capsule 05/02/2023 4 folic acid (FOLVITE) 1 MG Tablet Take 1 Tablet by mouth daily. 30 Tablet 01/06/2023 4 furosemide (LASIX) 20 MG Tablet Take 1 Tablet by mouth daily. 14 Tablet 01/07/2023 4 hydrOXYzine (ATARAX) 50 MG Tablet Take 1 Tablet by mouth every 6 hours as needed for Anxiety (Mild anxiety). 30 Tablet 01/05/2023 4 predniSONE (DELTASONE) 10 MG Tablet Take 4 Tablets by mouth daily for 2 days, THEN 3 Tablets daily for 2 days, THEN 2 Tablets daily for 2 days, THEN 1 Tablet daily for 2 days, THEN 0.5 Tablets daily for 2 days. 21 Tablet 05/02/2023 4 rOPINIRole (REQUIP) 0.5 MG Tablet Take 1 Tablet by mouth every 12 hours as needed for Other (For restless legs). 90 Tablet 01/05/2023 4 senna 8.6 MG Tablet Take 2 Tablets by mouth nightly as needed for Constipation - 1st line. 30 Tablet 01/05/2023 4 documented as of this encounter Progress Notes * Baron Vergara MD - 05/02/2023 9:15 AM CST PULMONARY PROGRESS NOTE Alona Kemp is a 52 y.o. female at Hospital Day (LOS: 1 day) Date of service: 05/02/23 Subjective: Patient is seen in follow-up for asthma and COPD exacerbation. Objective: The patient is appearing comfortable in NAD. Complaining of cough overnight remains on room air labs reviewed VITALS: BP (!) 153/111 Pulse 93 Temp 98 ??F (36.7 ??C) (Tympanic) Resp 22 Ht 5' 2 (1.575 m) Wt 269 lb 1.6 oz (122.1 kg) LMP 11/12/2019 SpO2 93% BMI 49.22 kg/m?? I&O: Intake/Output Summary (Last 24 hours) at 05/02/2023 0915 Last data filed at 05/01/2023 2100 Gross per 24 hour Intake 240 ml Output 0 ml Net 240 ml Body mass index is 49.22 kg/m??. Exam: General appearance: in no obvious distress. HEENT: Normocephalic, atraumatic, moist mucous membranes, eyes with anicteric sclera, corneas clear. Extraocular Movements intact. Pupils reactive to light and accomodation. No sinus tenderness.External inspection of ears and nose shows no lesion or scars. Neck: supple, symmetrical, trachea midline, no lymphadenopathy, thyroid: not enlarged, symmetric, no tenderness.. Thorax: the contour of the thorax is normal Lungs: no acute distress, normal percussion bilaterally. Clear breath sounds are auscultated bilaterally. No wheezes, crackles, rhonchi, or rubs were heard. There is no observed use of accessory muscles of breathing. Heart: regular rate and rhythm, S1, S2 normal, no murmur, click, rub or gallop, nondisplaced PMI. Abdomen: soft, non-tender, non-distended. There is no enlargement of the liver and spleen to palpation. Extremities: no cyanosis or clubbing. There is no edema of the lower extremities. Skin: warm, dry with no rash. Psych: the patient was , alert and oriented x3. Normal mood and effect. Current Facility-Administered Medications Medication Dose Route Frequency Provider Last Rate Last Admin acetaminophen (TYLENOL) tablet 650 mg 650 mg Oral Q4H PRN Adeline Villalobos MD 650 mg at 05/02/23 0707 albuterol (PROVENTIL, VENTOLIN) (2.5 MG/3ML) 0.083% nebulizer solution 2.5 mg 2.5 mg Nebulization Q6H PRN Adeline Villalobos MD 2.5 mg at 05/01/23 0730 benzonatate (TESSALON) capsule 100 mg 100 mg Oral TID PRN Adeline Villalobos MD 100 mg at 05/02/23 0839 benztropine (COGENTIN) tablet 0.5 mg 0.5 mg Oral BID Mable Higuera APRN, CNP 0.5 mg at 05/02/23 0839 calcium carbonate (TUMS) chewable tablet 1,000 mg 1,000 mg Oral Q8H PRN Adeline Villalobos MD glucose (GLUTOSE) 40 % gel GEL 15 g 15 g Oral PRN Alicia Romero MD Or dextrose 50 % solution 12.5 g 12.5 g Intravenous PRN Alicia Romero MD Or glucagon injection SOLR 1 mg 1 mg Intramuscular PRN Alicia Romero MD Or glucagon injection SOLR 1 mg 1 mg Subcutaneous PRN Alicia Romero MD DULoxetine (CYMBALTA) capsule 60 mg 60 mg Oral BID Mable Higuera APRN KNIFE CUTTER 60 mg at 05/02/23 0839 enoxaparin (LOVENOX) injection 40 mg 40 mg Subcutaneous Q12H JUAN Adeline Villalobos MD 40 mg at 05/02/23 0839 folic acid (FOLVITE) tablet 1 mg 1 mg Oral Daily Mable Higuera APRN, KNIFE CUTTER 1 mg at 05/02/23 0839 guaiFENesin (MUCINEX) SR tablet 600 mg 600 mg Oral BID Adeline Villalobos MD 600 mg at 05/02/23 0839 hydrOXYzine (ATARAX) tablet 50 mg 50 mg Oral Q6H PRN Adeline Villalobos MD insulin glargine (LANTUS) 100 UNIT/ML injection 10 Units 10 Units Subcutaneous Nightly Alicia Romero MD 10 Units at 05/01/23 2100 insulin lispro (HumaLOG) 100 UNIT/ML injection 2-12 Units 2-12 Units Subcutaneous TID PC Alicia Romero MD 4 Units at 05/01/23 1707 insulin lispro (HumaLOG) 100 UNIT/ML injection 2-6 Units 2-6 Units Subcutaneous Nightly Alicia Romero MD 4 Units at 05/01/23 204 IPRATROPIUM-ALBUTEROL 0.5-2.5 (3) MG/3ML IN SOLN levothyroxine (SYNTHROID) tablet 50 mcg 50 mcg Oral QAM AC Mable Higuera APRN, KNIFE CUTTER 50 mcg at 05/02/23 0707 magnesium hydroxide (MILK OF MAGNESIA) 400 MG/5ML suspension 30 mL 30 mL Oral Daily PRN Adeline Villalobos MD melatonin tablet 6 mg 6 mg Oral Nightly PRN Adeline Villalobos MD methylPREDNISolone Na Suc (PF) (Solu-MEDROL) injection 40 mg 40 mg Intravenous Q12H Baron Vergara MD 40 mg at 05/02/23 0839 metoclopramide (REGLAN) tablet 10 mg 10 mg Oral Q6H PRN Adeline Villalobos MD miconazole 2 % powder Topical BID Bridgette Faulkner APRN, KNIFE CUTTER Given at 05/02/23 0844 ondansetron (ZOFRAN-ODT) disintegrating tablet 4 mg 4 mg Oral Q6H PRN Adeline Villalobos MD Or ondansetron (ZOFRAN) injection 4 mg 4 mg Intravenous Q6H PRN Adeline Villalobos MD pantoprazole (PROTONIX) tablet 40 mg 40 mg Oral QAM AC Mable Higuera APRN, KNIFE CUTTER 40 mg at 05/02/23 0707 polyethylene glycol (GLYCOLAX, MIRALAX) packet 17 g 17 g Oral BID PRN Adeline Villalobos MD rOPINIRole (REQUIP) tablet 0.5 mg 0.5 mg Oral Q12H PRN Mable Higuera APRN, DAVID senna (SENOKOT) tablet 8.6 mg 1 Tablet Oral BID PRN Adeline Villalobos MD simvastatin (ZOCOR) tablet 10 mg 10 mg Oral QPM Mable Higuera APRN, KNIFE CUTTER 10 mg at 05/01/23 1707 traZODone (DESYREL) tablet 100 mg 100 mg Oral Nightly Mable Higuera APRN, CNP 100 mg at 05/01/232044 Data Review ABGs: Lab Results Component Value Date PHARTERIAL 7.37 04/30/2023 PO2ART 66 (L) 04/30/2023 [id number] 59 (H) 04/30/2023 O2ART 89 (L) 04/30/2023 CBC: Lab Results Component Value Date WBC 14.19 (H) 05/02/2023 RBC 4.27 05/02/2023 HEMOGLOBIN 12.7 05/02/2023 HEMATOCRIT 39.9 05/02/2023 PLATELETCNT 226 05/02/2023 BMP: Lab Results Component Value Date GLUCOSE 233 (H) 05/02/2023 SODIUM 136 05/02/2023 POTASSIUM 4.3 05/02/2023 CHLORIDE 99 05/02/2023 BUN 19 05/02/2023 CREATININE 0.78 05/02/2023 CALCIUM 8.5 (L) 05/02/2023 Lab Results Component Value Date MAGNESIUM 1.8 01/07/2023 Lab Results Component Value Date PHOSPHORUS 2.7 10/11/2018 Coagulation: Lab Results Component Value Date INR 1.1 01/02/2023 No results found for this visit on 04/30/23. Radiology: XR CHEST SINGLE VIEW PORTABLE Result Date: 04/30/2023 IMPRESSION: No acute cardiopulmonary abnormality. No infiltrate. Assessment: Acute hypoxemic respiratory failure due to underlying obstructive sleep apnea morbid obesity and crack cocaine use chest x-ray is clear Plan Continue IV steroids Nebulizers Physical therapy O2 desats study prior to discharge Antitussives Mucolytics Leukocytosis likely due to steroids she is clinically improving Plan Follow CBC Obstructive sleep apnea patient is noncompliant with CPAP Plan Repeat sleep study as an outpatient Discussed sleep hygiene Crack/cocaine use Noted Supportive care Morbid obesity Plan Encouraged to lose weight Documentation for this visit on May 01 was completed using a template. I have seen and examined the patient. Everything documented was personally performed at this visit with the necessary additions, deletions and changes made as appropriate. Baron Vergara MD 05/02/2023, 9:15 AM BLOOD DONOR RECRUITER SUPERVISOR D DONOR RECRUITER SUPERVISOR * Alicia Romero MD - 05/01/2023 1:37 PM CST [facility] INPATIENT DAILY PROGRESS NOTE Addendum note: Patient requires nebulizer for administration of albuterol due to Asthma therapy and concurrent presentation of thick pulmonary secretions J41.0-J70.9J12.0-J70.9 & R09.3 Alona Kemp is a 52 y.o. female at Hospital LOS: 22 hours Assessment: Active Hospital Problems Diagnosis Date Noted Asthma exacerbation 04/30/2023 Crack cocaine use 04/30/2023 KWABENA (obstructive sleep apnea) 01/02/2023 HLD (hyperlipidemia) 01/02/2023 HTN (hypertension) 01/02/2023 Acute respiratory failure with hypoxia (HCC) 02/08/2022 Anxiety 08/03/2021 Depression Bipolar disorder (HCC) Hypothyroid GERD (gastroesophageal reflux disease) Resolved Hospital Problems No resolved problems to display. Vitals: 04/30/23200405/01/23 0406 05/01/23 0730 05/01/23 0810 Temp: 98 ??F (36.7 ??C) 98.1 ??F (36.7 ??C) TempSrc: Tympanic Tympanic Heart Rate (Monitor): (!) 101 Pulse: 86 92 81 Resp: 16 20 16 18 BP: 99/67 124/86 Height: Weight: SpO2: 97% 100% 98% 97% No intake/output data recorded. Plan: Plan Acute respiratory failure with hypoxia -SpO2 in the upper 80s on room air while asleep. Hx of KWABENA not on CPAP. Requiring 2 L oxygen. -Not on home O2. -CXR revealed no acute abnormality. -ABG 7.37/59/66/34 -Pulmonology consult, appreciate recommendations. -Solumedrol IV. -Scheduled/PRN nebs. -Titrate O2 to keep O2 sats >92%. -Continuous pulse oximetry. 05/01/2023 --- clinically improving. Will attempt to wean down oxygen and reassess vital signs Asthma exacerbation -Wheezing noted on exam. Patient is out of her inhalers at home and has no PCP. -Scheduled/PRN nebs. -Solumedrol IV. -Titrate O2 to maintain sats greater than 92%. 05/01/2023 --- clinically improving. Pending deescalation of steroids Crack cocaine use -Endorses intermittent crack cocaine use, last smoked crack 2 days ago. -Encouraged cessation. -Monitor for withdrawal symptoms. -Supportive care. KWABENA not on CPAP- becomes hypoxic when sleeping with sats in the upper 80s. Continue with oxygen pernasal cannula as above. Pulmonology consulted. Hypertension- continue home antihypertensive medications. Hyperlipidemia- continue statin. GERD- continue PPI. Anxiety/depression/bipolar disorder- continue home medications. Diabetes 05/01/2023 --- A1c level 6.9. Home regimen of metformin currently held. Patient will receive Lantusinsulin and fingersticks q.a.c. and HS with sliding scale coverage. Code Status: CPR-Full Treatment DVT Prophylaxis: Lovenox 40mg every 12 hours Consult with: Pulmonology Expected discharge date: 05/03/2023 Subjective: Interval History: Patient seen at bedside. At present time O2 via nasal cannula therapy continues and patient refers improved breathing over prior day. Review of Systems: A 14 point comprehensive review of systems was negative, except as documented in HPI. Objective: Exam: General: O2 via nasal cannula at 1-2 L and alert, oriented and in no acute distress. Skin: normal coloration and turgor, no rashes. HEENT: normocephalic, atraumatic. Pupils equal, round and reactive to light. Extraocular movements intact. Oronasopharynx pink and moist, no lesion or exudate. Neck: Supple. No JVD, lymphadenopathy thyromegaly or carotid bruits auscultated. CVS: RRR, S1/S2 normal, no murmurs, gallops or rubs. Chest: Mild rhonchi bilaterally, using O2 via nasal cannula. Abdominal: soft, nontender, nondistended. Positive Bowel sounds, no organomegaly appreciated. Extremities: no edema, no clubbing or cyanosis. Neuro: CN 2-12 grossly intact, normal speech, no focal findings or movement disorder noted. Gait not tested.. Lab Results: Lab Results Component Value Date PHARTERIAL 7.37 04/30/2023 PO2ART 66 (L) 04/30/2023 [id number] 59 (H) 04/30/2023 O2ART 89 (L) 04/30/2023 Lab Results Component Value Date WBC 10.04 05/01/2023 HEMOGLOBIN 12.7 05/01/2023 HEMATOCRIT 40.2 05/01/2023 PLATELETCNT 223 05/01/2023 MCV 95.5 05/01/2023 Lab Results Component Value Date SODIUM 137 05/01/2023 POTASSIUM 4.3 05/01/2023 CHLORIDE 103 05/01/2023 CO2VEN 25 05/01/2023 ANIONGAP 13.3 05/01/2023 GLUCOSE 128 (H) 05/01/2023 BUN 15 05/01/2023 CREATININE 0.70 05/01/2023 BCRATIO8 21 (H) 05/01/2023 TOTALPROTEIN 7.2 04/30/2023 ALBUMIN 3.3 (L) 04/30/2023 CALCIUM 8.8 05/01/2023 TBIL 0.6 04/30/2023 SGOTAST 14 04/30/2023 SGPTALT 21 04/30/2023 ALKALINEPHO 94 04/30/2023 GFRNA >60 05/01/2023 GFRA >60 05/01/2023 Lab Results Component Value Date CPK 67 10/02/2022 TROPONINI <0.300 02/08/2022 No results found for: FOLATE Lab Results Component Value Date LACTICA 1.8 09/10/2022 Lab Results Component Value Date [id number] 251 08/25/2015 Lab Results Component Value Date FERRITIN 18 08/25/2015 Lab Results Component Value Date GLUCOSEPOCT 174 (H) 02/08/2022 EKG: EKG 12 LEAD Result Date: 01/09/2023 Normal sinus rhythm Moderate voltage criteria for LVH, may be normal variant ( R in aVL , Hartley product ) Borderline ECG When compared with ECG of 02-JAN-2023 14:40, Nonspecific T wave abnormality no longer evident in Lateral leads Confirmed by Antony Choudhury ([id number]) on 01/09/2023 1:05:08 PM EKG 12 LEAD Result Date: 01/03/2023 Sinus tachycardia Moderate voltage criteria for LVH, may be normal variant ( R in aVL , Hartley product ) Borderline ECG No previous ECGs available Confirmed by Antony Choudhury ([id number]) on 01/03/2023 9:55:15 AM EKG 12 LEAD Result Date: 09/12/2022 Sinus tachycardia Moderate voltage criteria for LVH, may be normal variant ( R in aVL , Hartley product ) Borderline ECG When compared with ECG of 15-FEB-2022 15:06, No significant change was found Confirmed by Antony Choudhury ([id number]) on 09/12/2022 4:11:29 PM Imaging: XR CHEST SINGLE VIEW PORTABLE Result Date: 04/30/2023 IMPRESSION: No acute cardiopulmonary abnormality. No infiltrate. By: Alicia Romero MD, 05/01/2023 1:37 PM BLOOD DONOR RECRUITER SUPERVISOR D DONOR RECRUITER SUPERVISOR D DONOR RECRUITER SUPERVISOR documented in this encounter H&P Notes * Mable Higuera APRN, KNIFE CUTTER - 04/30/2023 8:13 PM CST Images from the original note were not included. HOSPITALIST ADMISSION HISTORY & PHYSICAL EXAM PATIENT NAME: Alona Kemp, : 1970, MR#[id number] CHIEF COMPLAINT Shortness of breath HPI Alona Kemp is a 52 y.o. female with a PMHx of asthma, KWABENA not on CPAP, HTN, HLD, GERD, crack cocaine use, anxiety, depression, and bipolar disorder who presented to the ED with complaints of shortness a breath. Patient states she has been experiencing congestion, headache, and productive cough with yellow/green sputum for the past 2 weeks. Reports shortness of breath began today. Patient has ahistory of asthma however is out of her inhalers, stating that she has no primary care physician atthis time. She denies fever, chills, chest pain, abdominal pain, nausea, vomiting, and dysuria. Reports diarrhea which began yesterday. Of note, the patient endorses intermittently smoking crack cocaine, last use was 2 days ago. During the ED evaluation, the patient was noted to be hypoxic when sleeping with saturation in the upper 80s. She was placed on 2 L of oxygen by nasal cannula with improvement in her saturation. She was treated with IV Solu-Medrol, as well as nebulizer treatments. Lab analysis was essentially unremarkable. An ABG was obtained showing pH 7.37, pCO2 59, PO2 66, and bicarb 34. A chest x-ray was also obtained showing no acute abnormality. The patient has been admitted for further management. HOME MEDICATIONS: Prior to Admission Medications Prescriptions Last Dose Informant Patient Reported? Taking? DULoxetine (CYMBALTA) [address] Particles 04/30/2023 at 0800 Yes Yes Sig: Take 60 mg by mouth 2 times daily. benztropine (COGENTIN) 0.5 MG Tablet 04/30/2023 at 0800 Yes Yes Sig: Take 0.5 mg by mouth 2 times daily. folic acid (FOLVITE) 1 MG Tablet 04/30/2023 No Yes Sig: Take 1 Tablet by mouth daily. furosemide (LASIX) 20 MG Tablet 04/30/2023 No Yes Sig: Take 1 Tablet by mouth daily. hydrOXYzine (ATARAX) 50 MG Tablet Not Taking No No Sig: Take 1 Tablet by mouth every 6 hours as needed for Anxiety (Mild anxiety). irbesartan (AVAPRO) 150 MG Tablet 04/30/2023 Yes Yes Sig: Take 150 mg by mouth daily. levothyroxine (SYNTHROID) 50 MCG Tablet 04/30/2023 Pharmacy Yes Yes Sig: Take 50 mcg by mouth daily. Indications: Underactive Thyroid metoprolol Succinate (TOPROL-XL) 25 MG TABLET SR 24 HR 04/30/2023 Yes Yes Sig: Take 25 mg by mouth daily. miconazole 2 % Powder No No Sig: Apply on the groin region. omeprazole (PriLOSEC) 40 MG CAPSULE DELAYED RELEASE 04/30/2023 No Yes Sig: Take 1 Capsule by mouth daily. ondansetron (ZOFRAN-ODT) 4 MG TABLET DISPERSIBLE Not Taking No No Sig: Take 1 Tablet by mouth every 6 hours as needed for Nausea - 1st line (for nausea or vomiting). rOPINIRole (REQUIP) 0.5 MG Tablet No No Sig: Take 1 Tablet by mouth every 12 hours as needed for Other (For restless legs). senna 8.6 MG Tablet 04/29/2023 No Yes Sig: Take 2 Tablets by mouth nightly as needed for Constipation - 1st line. simvastatin (ZOCOR) 10 MG Tablet 04/29/2023 Yes Yes Sig: Take 10 mg by mouth every evening. traZODone (DESYREL) 50 MG Tablet 04/29/2023 Yes Yes Sig: Take 100 mg by mouth nightly. triamterene-hydrochlorothiazide (DYAZIDE) 37.5-25 MG Capsule 04/30/2023 Yes Yes Sig: Take 1 Capsule by mouth every morning. Facility-Administered Medications: None ALLERGIES: Allergies Description Type Start Date End Date Comment Verified Teacher Adult Education Risperidone Intolerance 09-Aug-2017 Severity: High Reactions: Other (see Comments) Comment: Violentand agitated. Jarvis Hopkins PAC (Physician Package Drier) Sulfa Antibiotics Allergy 01-Sep-2015 Severity: Medium Reactions: Sandra Quinn RN Topiramate Intolerance 09-Aug-2017 Severity: High Reactions: Other (see Comments) Comment: Difficulty with speech and word finding. Jarvis Hopkins PAC (Physician Package Drier) Ziprasidone Hcl Unknown 09-Aug-2017 Severity: High Reactions: Other (see Comments) Comment: Abnormal mouth movements Jarvis Hopkins PAC (Physician Package Drier) REVIEW OF SYSTEMS: Review of Systems HENT: Positive for congestion. Respiratory: Positive for cough, sputum production and shortness of breath. Neurological: Positive for headaches. All other systems reviewed and are negative. PAST MEDICAL HISTORY She has a past medical history of Adenomatous colon polyp, Anxiety, Bipolar disorder (HCC), Cocaineabuse (HCC), DDD (degenerative disc disease), lumbar, Depression, GERD (gastroesophageal reflux disease), HLD (hyperlipidemia), HTN (hypertension), Hypothyroid, IBS (irritable bowel syndrome), Morbidobesity (HCC), NAFLD (nonalcoholic fatty liver disease), Nephrocalcinosis, KWABENA (obstructive sleep apnea), SBO (small bowel obstruction) ([facility]) (09/2018), and Vitamin D deficiency. PAST SURGICAL HISTORY: has a past surgical history that includes Section (1994); Cholecystectomy (2004); EGD (2012?); Colonoscopy; Jackson Tooth Extraction (1991); Colonoscopy (N/A, 11/16/2018); and Upper Gastrointestinal Endoscopy (N/A, 02/06/2019). FAMILY HISTORY: family history includes Depression in her brother and mother; Diabetes in her maternal uncle and mother; Hypertension in her mother; No Known Problems in her daughter; Obstructive Sleep Apnea in her brother. SOCIAL HISTORY : reports that she has never smoked. She has never used smokeless tobacco. She reports current drug use. Drug: Crack cocaine. She reports that she does not drink alcohol. PHYSICAL EXAM : VITALS: BP 140/78 Pulse 88 Temp 97.7 ??F (36.5 ??C) (Tympanic) Resp 16 Ht 5' 2 (1.575 m) Wt 266 lb 12.8 oz (121 kg) LMP 11/12/2019 SpO2 98% BMI 48.80 kg/m?? Temp (24hrs), Av.2 ??F (36.2 ??C), Min:96.7 ??F (35.9 ??C), Max:97.7 ??F (36.5 ??C) Weight: Wt Readings from Last 1 Encounters: 04/30/23 266 lb 12.8 oz (121 kg) Body mass index is 48.8 kg/m??. EXAM: Physical Exam Constitutional: General: She is not in acute distress. Appearance: She is morbidly obese. She is ill-appearing. HENT: Head: Normocephalic and atraumatic. Mouth/Throat: Lips: [place]. Lesions present. Mouth: Mucous membranes are dry. Comments: Lips dry, cracked. Scabbed lesion to medial aspect of lower lip Eyes: General: Lids are normal. Extraocular Movements: Extraocular movements intact. Cardiovascular: Rate and Rhythm: Normal rate and regular rhythm. Heart sounds: Normal heart sounds. Pulmonary: Effort: Pulmonary effort is normal. Breath sounds: Wheezing present. Comments: Scattered faint expiratory wheezes Abdominal: General: Bowel sounds are normal. There is no distension. Palpations: Abdomen is soft. Tenderness: There is no abdominal tenderness. Musculoskeletal: Cervical back: Normal range of motion and neck supple. Right lower leg: No edema. Left lower leg: No edema. Skin: General: Skin is warm and dry. Neurological: General: No focal deficit present. Mental Status: She is alert, oriented to person, place, and time and easily aroused. GCS: GCS eye subscore is 4. GCS verbal subscore is 5. GCS motor subscore is 6. Cranial Nerves: Cranial nerves 2-12 are intact. Psychiatric: Behavior: Behavior is cooperative. DATA REVIEW : XR CHEST SINGLE VIEW PORTABLE Result Date: 04/30/2023 IMPRESSION: No acute cardiopulmonary abnormality. No infiltrate. EKG: UA: Results for orders placed or performed during the hospital encounter of 01/07/23 Urinalysis w/ Reflex Result Value Ref Range Status SPECIFIC GRAVITY 1.005 1.003 - 1.030 Final URINE PH 8.0 5.0 - 9.0 Final WBC ESTERASE Negative Negative Final NITRITE Negative Negative Final PROTEIN, RANDOM URINE Negative Negative Final URINE GLUCOSE, QUAL Negative Negative Final URINE KETONES Negative Negative Final UROBILINOGEN Normal Normal mg/dL Final URINE BLOOD Negative Negative dylan/ul Final URINALYSIS COLOR Yellow Final URINALYSIS CLARITY Clear Final Results for orders placed or performed during the hospital encounter of 11/30/22 Culture, Urine Specimen: Urine Clean Catch Result Value Ref Range Status CULTURE RESULTS Final MIXED GROWTH OF ONE OR MORE DISTAL URETHRAL CONTAMINANTS Results for orders placed or performed during the hospital encounter of 08/31/16 Urinalysis Microscopic If Indicated Result Value Ref Range Status SPECIFIC GRAVITY 1.005 1.003 - 1.030 Final URINE PH 7.0 5.0 - 9.0 Final WBC ESTERASE 100 /uL (A) Negative Final NITRITE Negative Negative Final PROTEIN, RANDOM URINE Negative Negative mg/dL Final URINE GLUCOSE, QUAL Normal Normal Final URINE KETONES Negative Negative mg/dL Final UROBILINOGEN Normal Normal mg/dL Final URINE BILIRUBIN Negative Negative Final URINE BLOOD 250 /uL (A) Negative dylan/ul Final URINALYSIS COLOR Pale yellow Final URINALYSIS CLARITY Slightly Cloudy Final WBC (Urine) 6-10 (A) Negative, 0-5 /hpf Final URINE RBC'S 6-10 (A) Negative, 0-5 /hpf Final EPITHELIAL CELLS Small amount /lpf Final BACTERIA, URINE Moderate (A) Negative /hpf Final URINE MUCOUS Few Final URINE MICRO REQUIRED No Final CBC: Lab Results Component Value Date WBC 8.12 04/30/2023 RBC 4.39 04/30/2023 HEMOGLOBIN 13.2 04/30/2023 HEMATOCRIT 41.2 04/30/2023 PLATELETCNT 225 04/30/2023 CMP: Lab Results Component Value Date SODIUM 137 04/30/2023 POTASSIUM 3.9 04/30/2023 CHLORIDE 103 04/30/2023 CO2VEN 28 04/30/2023 ANIONGAP 9.9 04/30/2023 GLUCOSE 111 (H) 04/30/2023 BUN 10 04/30/2023 CREATININE 0.68 04/30/2023 BCRATIO8 15 04/30/2023 TOTALPROTEIN 7.2 04/30/2023 ALBUMIN 3.3 (L) 04/30/2023 CALCIUM 8.9 04/30/2023 TBIL 0.6 04/30/2023 SGPTALT 21 04/30/2023 ALKALINEPHO 94 04/30/2023 GFRNA >60 04/30/2023 GFRA >60 04/30/2023 Coagulation: Lab Results Component Value Date PTP 13.8 01/02/2023 INR 1.1 01/02/2023 Cardiac markers: Lab Results Component Value Date CPK 67 10/02/2022 TROPONINI <0.300 02/08/2022 ABGs: Lab Results Component Value Date PHARTERIAL 7.37 04/30/2023 [id number] 59 (H) 04/30/2023 PO2ART 66 (L) 04/30/2023 O2ART 89 (L) 04/30/2023 Mg: Lab Results Component Value Date MAGNESIUM 1.8 01/07/2023 BNP: No results found for: NTPROBNP Thyroid: Lab Results Component Value Date TSH 1.490 02/21/2021 T4FREE 1.1 10/07/2018 Anti-Epileptics: No results found for: DILANTIN , ADJUSTEDDILA , PHENOBARBITA , VALP2 , VALPROICACTT , CARBAM , LAMI1 , ETHO1 , FEL1 , GABAPENTIN , LEVET1 , PRPH1 , TOPAR1 , ZONI1 , CLONS1 , OXCAM1 Rheumatology: Lab Results Component Value Date CRP 12.15 (H) 10/11/2018 Calcium-Ionized: No results found for: CALCIUMIONIZ Outside reports reviewed: ER records, radiology reports, lab reports, xray reports, historical medical records. ASSESSMENT: Active Hospital Problems Diagnosis Date Noted Asthma exacerbation 04/30/2023 Crack cocaine use 04/30/2023 KWABENA (obstructive sleep apnea) 01/02/2023 HLD (hyperlipidemia) 01/02/2023 HTN (hypertension) 01/02/2023 Acute respiratory failure with hypoxia (HCC) 02/08/2022 Anxiety 08/03/2021 Depression Bipolar disorder (HCC) Hypothyroid GERD (gastroesophageal reflux disease) Resolved Hospital Problems No resolved problems to display. PLAN: Acute respiratory failure with hypoxia -SpO2 in the upper 80s on room air while asleep. Hx of KWABENA not on CPAP. Requiring 2 L oxygen. -Not on home O2. -CXR revealed no acute abnormality. -ABG 7.37/59/66/34 -Pulmonology consult, appreciate recommendations. -Solumedrol IV. -Scheduled/PRN nebs. -Titrate O2 to keep O2 sats >92%. -Continuous pulse oximetry. Asthma exacerbation -Wheezing noted on exam. Patient is out of her inhalers at home and has no PCP. -Scheduled/PRN nebs. -Solumedrol IV. -Titrate O2 to maintain sats greater than 92%. Crack cocaine use -Endorses intermittent crack cocaine use, last smoked crack 2 days ago. -Encouraged cessation. -Monitor for withdrawal symptoms. -Supportive care. KWABENA not on CPAP- becomes hypoxic when sleeping with sats in the upper 80s. Continue with oxygen pernasal cannula as above. Pulmonology consulted. Hypertension- continue home antihypertensive medications. Hyperlipidemia- continue statin. GERD- continue PPI. Anxiety/depression/bipolar disorder- continue home medications. Home meds to be resumed as appropriate. Other changes to meds to be made based on progress during hospitalization. Code Status: CPR-Full Treatment DVT Prophylaxis: Lovenox 40mg every 12 hours Consult with: Pulmonology Advance Care Planning: Aggregate face to face time discussing end of life advance care planning with patient and/or family and/or Power of Assistant Quality Manager approximately 16 minutes. Discussed CPR/Intubation/Treatment Goals/Quality of life/Intensity of Care. Patient desires: CPR-Full Treatment Mable Higuera APRN, CNP 04/30/2023 8:35 PM BLOOD DONOR RECRUITER SUPERVISOR Primary Care Physician: DAJA CARBALLO MD Cosigned by Alicia Romero MD at 05/01/2023 1:36 PM BLOOD DONOR RECRUITER SUPERVISOR D DONOR RECRUITER SUPERVISOR D DONOR RECRUITER SUPERVISOR Associated attestation - Alicia Romero MD - 05/01/2023 1:36 PM BLOOD DONOR RECRUITER SUPERVISOR I have seen and have examined the patient as part of a split/shared visit with the EVGENY on 05/01/2023 and have reviewed and confirmed all history, exam, and medical decision making elements documented, with additions/changes as noted. I have performed the substantive portion of the visit as follows: Total time spent on this encounter on 05/01/2023 including jointly obtained history, [id number] interaction performing medically appropriate physical exam, patient counseling/education, interpretation of diagnostic results, care coordination and documentation was 40 minutes. This time is distinctly separate from services billed separately. documented in this encounter Consult Notes * Baron Vergara MD - 05/01/2023 3:13 PM CST Pulmonary Consult Referring Physician: Dr. Romero for asthma exacerbation Date of Service: 05/01/23 HPI: Ms. Alona Kemp is a 52-year-old morbidly obese female with BMI of 48 with a past medical historyof asthma obstructive sleep apnea and crack cocaine use presented with shortness of breath patient has a productive cough with yellowish phlegm for 2 weeks chest x-ray showed no acute cardiopulmonaryprocess patient intermittently smokes crack and cocaine last use was 2 days prior to admission she was noted to be hypoxic in the emergency room with oxygen saturation in the 80s she was placed on 2 L supplemental oxygen and was admitted to the hospital was started IV steroids She was diagnosed with obstructive sleep apnea year ago in [place] has not been followed up with the sleep physician has not been using her CPAP for over a year Denies chest pain or GERD has a nonproductive cough she is lifetime nonsmoker Is feeling better at the time of my evaluation Patient Medical/Surgical History: Past Medical History Positives Diagnosis Date Adenomatous colon polyp Anxiety Bipolar disorder (HCC) Cocaine abuse (HCC) DDD (degenerative disc disease), lumbar back Depression GERD (gastroesophageal reflux disease) HLD (hyperlipidemia) HTN (hypertension) Hypothyroid IBS (irritable bowel syndrome) C/D Morbid obesity (HCC) NAFLD (nonalcoholic fatty liver disease) Nephrocalcinosis KWABENA (obstructive sleep apnea) does not use cpap SBO (small bowel obstruction) ([facility]) 09/2018 Vitamin D deficiency Past Surgical History: Procedure Laterality Date SECTION 1994 CHOLECYSTECTOMY [address] [facility] (Does not remember the ) COLONOSCOPY N/A 11/16/2018 Procedure: COLONOSCOPY - POLYPS, BIOPSIES; Surgeon: Damian Gallardo DO; Location: [facility]; Service: Gastroenterology EGD 2012? [facility] UPPER GASTROINTESTINAL ENDOSCOPY N/A 02/06/2019 Procedure: EGD, SMALL BOWEL BIOSY, GASTRIC POLYP, SAMANTHA TEST; Surgeon: Damian aGllardo DO; Location: [facility]; Service: Gastroenterology WISDOM TOOTH EXTRACTION 1992 4 wisdom teeth removed. Family History: Family History Problem Relation Age of Onset Depression Mother Diabetes Mother Hypertension Mother Depression Brother Obstructive Sleep Apnea Brother No Known Problems Daughter Diabetes Maternal Uncle Social History: Social History Tobacco Use Smoking status: Never Smokeless tobacco: Never Vaping Use Vaping Use: Never used Substance Use Topics Alcohol use: No Drug use: Yes Types: Crack cocaine Medications: Current Facility-Administered Medications: acetaminophen (TYLENOL) tablet 650 mg albuterol (PROVENTIL, VENTOLIN) (2.5 MG/3ML) 0.083% nebulizer solution 2.5 mg benzonatate (TESSALON) capsule 100 mg benztropine (COGENTIN) tablet 0.5 mg calcium carbonate (TUMS) chewable tablet 1,000 mg glucose (GLUTOSE) 40 % gel GEL 15 g OR dextrose 50 % solution 12.5 g OR glucagon injection SOLR 1 mg OR glucagon injection SOLR 1 mg DULoxetine (CYMBALTA) capsule 60 mg enoxaparin (LOVENOX) injection 40 mg folic acid (FOLVITE) tablet 1 mg guaiFENesin (MUCINEX) SR tablet 600 mg hydrOXYzine (ATARAX) tablet 50 mg insulin lispro (HumaLOG) 100 UNIT/ML injection 2-12 Units insulin lispro (HumaLOG) 100 UNIT/ML injection 2-6 Units levothyroxine (SYNTHROID) tablet 50 mcg magnesium hydroxide (MILK OF MAGNESIA) 400 MG/5ML suspension 30 mL melatonin tablet 6 mg methylPREDNISolone Na Suc (PF) (Solu-MEDROL) injection 40 mg metoclopramide (REGLAN) tablet 10 mg ondansetron (ZOFRAN-ODT) disintegrating tablet 4 mg OR ondansetron (ZOFRAN) injection 4 mg pantoprazole (PROTONIX) tablet 40 mg polyethylene glycol (GLYCOLAX, MIRALAX) packet 17 g rOPINIRole (REQUIP) tablet 0.5 mg senna (SENOKOT) tablet 8.6 mg simvastatin (ZOCOR) tablet 10 mg traZODone (DESYREL) tablet 100 mg Allergies Allergen Reactions Geodon [Ziprasidone Hcl] Other (see Comments) Abnormal mouth movements Risperdal [Risperidone] Other (see Comments) Violent and agitated. Topamax [Topiramate] Other (see Comments) Difficulty with speech and word finding. Sulfa Antibiotics Hives REVIEW OF SYSTEMS: A complete 14 point ROS was negative except as mentioned in HPI. PHYSICAL EXAM: Vitals: 05/01/23 0730 05/01/23 0810 05/01/23 1345 05/01/23 1351 BP: 124/86 129/80 Pulse: 92 81 93 Resp: 16 18 Temp: 98.1 ??F (36.7 ??C) 98.5 ??F (36.9 ??C) TempSrc: Tympanic SpO2: 98% 97% 99% Weight: 266 lb 12.8 oz (121 kg) Height: Body mass index is 48.8 kg/m??. General appearance: in no obvious distress. HEENT: Normocephalic, atraumatic, moist mucous membranes, eyes with anicteric sclera, corneas clear. Extraocular Movements intact. Pupils reactive to light and accomodation. No sinus tenderness.External inspection of ears and nose shows no lesion or scars. Neck: supple, symmetrical, trachea midline, no lymphadenopathy, thyroid: not enlarged, symmetric, no tenderness.. Thorax: the contour of the thorax is normal Lungs: no acute distress, normal percussion bilaterally. Clear breath sounds are auscultated bilaterally. No wheezes, crackles, rhonchi, or rubs were heard. There is no observed use of accessory muscles of breathing. Heart: regular rate and rhythm, S1, S2 normal, no murmur, click, rub or gallop, nondisplaced PMI. Abdomen: soft, non-tender, non-distended. There is no enlargement of the liver and spleen to palpation. Extremities: no cyanosis or clubbing. There is no edema of the lower extremities. Skin: warm, dry with no rash. Psych: the patient was , alert and oriented x3. Normal mood and effect. Diagnostic Studies Lab Results Component Value Date SODIUM 137 05/01/2023 POTASSIUM 4.3 05/01/2023 CHLORIDE 103 05/01/2023 CO2VEN 25 05/01/2023 GLUCOSE 128 (H) 05/01/2023 ANIONGAP 13.3 05/01/2023 BUN 15 05/01/2023 CREATININE 0.70 05/01/2023 CALCIUM 8.8 05/01/2023 Lab Results Component Value Date MAGNESIUM 1.8 01/07/2023 Lab Results Component Value Date PHOSPHORUS 2.7 10/11/2018 Results for orders placed or performed during the hospital encounter of 09/10/22 Blood Culture #2 Specimen: Blood; Culture Result Value Ref Range Status CULTURE RESULTS Escherichia coli Final GRAM STAIN Final Comment: Aerobic bottle positive after 9 hours and 57 minutes. Gram stain read at 0833 on 09/11. Aal No site given. Susceptibility Escherichia coli - [facility] II Ampicillin Resistant mcg/ml Ampicillin/sulbactam Intermediate mcg/ml Cefepime Susceptible mcg/ml Ceftriaxone Susceptible mcg/ml Gentamicin Susceptible mcg/ml Levofloxacin Susceptible mcg/ml Meropenem Susceptible mcg/ml Piperacillin/Tazobactam Susceptible mcg/ml Tobramycin Susceptible mcg/ml Trimeth/Sulfamethoxazole Susceptible mcg/ml Blood Culture #1 Specimen: Blood; Culture Result Value Ref Range Status CULTURE RESULTS NO GROWTH WITHIN 5 DAYS, FINAL RESULT Final Lab Results Component Value Date WBC 10.04 05/01/2023 HEMOGLOBIN 12.7 05/01/2023 HEMATOCRIT 40.2 05/01/2023 PLATELETCNT 223 05/01/2023 MCV 95.5 05/01/2023 @ Lab Results Component Value Date INR 1.1 01/02/2023 PTP 13.8 01/02/2023 Recent Labs Units 04/30/23 1628 PHARTERIAL 7.37 [id number] mmHg 59* PO2ART mmHg 66* O2ART % 89* Radiology: XR CHEST SINGLE VIEW PORTABLE Result Date: 04/30/2023 IMPRESSION: No acute cardiopulmonary abnormality. No infiltrate. Impression: Patient Active Problem List Diagnosis Lumbar pars defect Lumbar facet arthropathy GERD (gastroesophageal reflux disease) HTN (hypertension) HLD (hyperlipidemia) Bipolar disorder (HCC) Depression Hypothyroid Sepsis (HCC) Enterocolitis Abnormal CT scan Cocaine use Morbid obesity (HCC) Small bowel obstruction (HCC) Anxiety Type 2 diabetes mellitus, without long-term current use of insulin (HCC) Dehydration UTI (urinary tract infection) Acute respiratory failure with hypoxia (HCC) Influenza A H1N1 infection COVID-19 virus infection Influenza A Vitamin D deficiency SBO (small bowel obstruction) (HCC) KWABENA (obstructive sleep apnea) Nephrocalcinosis NAFLD (nonalcoholic fatty liver disease) Morbid obesity (HCC) IBS (irritable bowel syndrome) HTN (hypertension) DDD (degenerative disc disease), lumbar Cocaine abuse (HCC) Adenomatous colon polyp HLD (hyperlipidemia) Stimulant withdrawal (HCC) Asthma exacerbation Crack cocaine use Acute hypoxemic respiratory failure due to underlying obstructive sleep apnea morbid obesity and crack cocaine use chest x-ray is clear Plan IV steroids Nebulizers Physical therapy O2 desats study prior to discharge Obstructive sleep apnea patient is noncompliant with CPAP Plan Repeat sleep study as an outpatient Discussed sleep hygiene Crack/cocaine use Noted Supportive care Morbid obesity Plan Encouraged to lose weight Thank you very much for this consultation I will follow with you Documentation for this visit on April 30 was completed using a template. I have seen and examined the patient. Everything documented was personally performed at this visit with the necessary additions, deletions and changes made as appropriate. Baron Vergara MD 05/01/2023 3:13 PM BLOOD DONOR RECRUITER SUPERVISOR D DONOR RECRUITER SUPERVISOR documented in this encounter ED Notes * Yulia Kemp RN - 04/30/2023 6:06 PM CST Patient changed into hospital gown, but declined hospital socks at this time. D DONOR RECRUITER SUPERVISOR * Lisandro Cardoza RN - 04/30/2023 5:58 PM CST Food tray delivered. Monitors removed so that pt can eat. D DONOR RECRUITER SUPERVISOR * Lexie Rdz RN - 04/30/2023 5:39 PM CST Dinner tray ordered for patient. D DONOR RECRUITER SUPERVISOR * Yulia Kemp RN - 04/30/2023 4:57 PM CST Tech helping patient change into gown and socks. D DONOR RECRUITER SUPERVISOR * Yulia Kemp RN - 04/30/2023 4:52 PM CST ERP at bedside informing patient of attempting to admit patient for asthma exacerbation. D DONOR RECRUITER SUPERVISOR * Yulia Kemp RN - 04/30/2023 4:05 PM CST Patient states the breathing tx x2 and solu-medrol hasn't improved her breathing. Patient has 2L NCapplied due to falling asleep and dropping down into the high 80%. ERP notified. D DONOR RECRUITER SUPERVISOR * Yulia Kemp RN - 04/30/2023 3:20 PM CST Xray in with patient D DONOR RECRUITER SUPERVISOR * Carlos Fuchs MD - 04/30/2023 3:12 PM CSTAssociated Order(s): Critical Care Chief Complaint Patient presents with Chest Congestion Patient is a 52 year white female with a history of chronic anxiety, bipolar, history of cocaine abuse, depression, GERD, hyperlipidemia, hypertension, morbid obesity, NAFLD, KWABENA and history of SBO presents to ED with shortness of breath. Patient reports respiratory symptoms for the last 2 weeks. Patient informed EMS that she does not have any inhalers and has not used any nebulizer in the long while. She appears to be unreliable historian. No current facility-administered medications for this encounter. Current Outpatient Medications Medication Sig Dispense Refill benztropine (COGENTIN) 0.5 MG Tablet Take 0.5 mg by mouth 2 times daily. DULoxetine (CYMBALTA) [address] Particles Take 60 mg by mouth 2 times daily. folic acid (FOLVITE) 1 MG Tablet Take 1 Tablet by mouth daily. 30 Tablet 0 furosemide (LASIX) 20 MG Tablet Take 1 Tablet by mouth daily. 14 Tablet 0 hydrOXYzine (ATARAX) 50 MG Tablet Take 1 Tablet by mouth every 6 hours as needed for Anxiety (Mild anxiety). 30 Tablet 0 irbesartan (AVAPRO) 150 MG Tablet Take 150 mg by mouth daily. levothyroxine (SYNTHROID) 50 MCG Tablet Take 50 mcg by mouth daily. Indications: Underactive Thyroid loperamide (IMODIUM) 2 MG Capsule Take 1 Capsule by mouth every 8 hours as needed for Diarrhea (give for continued diarrhea). 30 Capsule 0 metoprolol Succinate (TOPROL-XL) 25 MG TABLET SR 24 HR Take 25 mg by mouth daily. miconazole 2 % Powder Apply on the groin region. 71 g 0 Multivitamin-Minerals (multiple vitami/antioxidants) Tablet Take 1 Tablet by mouth daily. 90 Tablet0 omeprazole (PriLOSEC) 40 MG CAPSULE DELAYED RELEASE [...] for Other (For restless legs). 90 Tablet 0 senna 8.6 MG Tablet Take 2 Tablets by mouth nightly as needed for Constipation - 1st line. 30 Tablet 0 simvastatin (ZOCOR) 10 MG Tablet Take 10 mg by mouth every evening. Thiamine Mononitrate (THIAMINE) 100 MG Tablet Take 1 Tablet by mouth daily. 30 Tablet 0 traZODone (DESYREL) 50 MG Tablet Take 100 [...] Anxiety Bipolar disorder (HCC) Cocaine abuse (HCC) DDD (degenerative disc disease), lumbar back Depression GERD (gastroesophageal reflux disease) HLD (hyperlipidemia) HTN (hypertension) Hypothyroid IBS (irritable bowel syndrome) C/D Morbid obesity (HCC) NAFLD (nonalcoholic fatty liver disease) Nephrocalcinosis KWABENA (obstructive sleep apnea) does not use cpap SBO (small bowel obstruction) ([facility]) 09/2018 Vitamin D deficiency Past Surgical History: Procedure Laterality Date SECTION 1994 CHOLECYSTECTOMY [address] [facility] (Does not remember the ) COLONOSCOPY N/A 11/16/2018 Procedure: COLONOSCOPY - POLYPS, BIOPSIES; Surgeon: Damian Gallardo DO; Location: [facility]; Service: Gastroenterology EGD 2012? [facility] UPPER GASTROINTESTINAL ENDOSCOPY N/A 02/06/2019 Procedure: EGD, SMALL BOWEL BIOSY, GASTRIC POLYP, SAMANTHA TEST; Surgeon: Damian Gallardo DO; Location: [facility]; Service: Gastroenterology WISDOM TOOTH EXTRACTION 1991 4 wisdom teeth removed. Social History Socioeconomic History Marital status: Spouse name: Not on file Number of children: Not on file Years of education: Not on file Highest education level: Not on file Occupational History Not on file Tobacco Use Smoking status: Never Smokeless tobacco: Never Vaping Use Vaping Use: Never used Substance and Sexual Activity Alcohol use: No Drug use: Yes Types: Cocaine Sexual activity: Yes Partners: Male control/protection: None Other Topics Concern Not on file Social History Narrative Not on file Social Determinants of Health Financial Resource Needs: Not on file Food Insecurity Needs: Not on file Transportation Needs: Not on file Physical Activity: Not on file Stress: Not on file Social Integration: Not on file Intimate Partner Violence: Not on file Housing Stability: Not on file BP (!) 136/91 Pulse 100 Temp 96.7 ??F (35.9 ??C) (Tympanic) Resp 18 Ht 5' 2 (1.575 m) Wt250 lb (113.4 kg) LMP 11/12/2019 SpO2 99% BMI 45.73 kg/m?? Review of Systems Constitutional: Positive for fatigue. Negative for fever. Respiratory: Positive for cough and shortness of breath. Gastrointestinal: Negative. Genitourinary: Negative. Musculoskeletal: Negative. Neurological: Negative. Physical Exam Vitals and nursing note reviewed. Constitutional: General: She is in acute distress. Appearance: She is ill-appearing. Comments: Morbidly obese, Sick-appearing 52-year-old white female with very poor personal up keep, in mild respiratory distress. HENT: Nose: Nose normal. Eyes: Pupils: Pupils are equal, round, and reactive to light. Cardiovascular: Rate and Rhythm: Tachycardia present. Pulses: Normal pulses. Pulmonary: Effort: Respiratory distress present. Breath sounds: Rhonchi present. Abdominal: Palpations: Abdomen is soft. Musculoskeletal: General: Normal range of motion. Skin: General: Skin is warm and dry. Capillary Refill: Capillary refill takes less than 2 seconds. Neurological: General: No focal deficit present. Psychiatric: Mood and Affect: Mood normal. Critical Care Performed by: Carlos Fuchs MD Authorized by: Carlos Fuchs MD Critical care provider statement: Critical care time (minutes): 30 Critical care was time spent personally by me on the following activities: Ordering and performing treatments and interventions, ordering and review of laboratory studies, ordering and review of radiographic studies, pulse oximetry and re-evaluation of patient's condition Recent Results (from the past 24 hour(s)) RSV,SARS-COV-2,INFLUENZA A&B BY PCR Specimen: Nasopharyngeal; Swab Result Value Ref Range FLU A Negative Negative, Error FLU B Negative Negative RESP SYNC VIRUS Negative Negative SARSCOV2 NOT DETECTED (Reference Range for this test is Not Detected) Comprehensive Metabolic Panel (Cmp) [id number] Result Value Ref Range SODIUM 137 136 - 145 mmol/L POTASSIUM 3.9 3.5 - 5.1 mmol/L CHLORIDE 103 98 - 107 mmol/L CO2, VENOUS 28 22 - 30 mmol/L ANION GAP 9.9 <18.0 mmol/L GLUCOSE 111 (H) 70 - 99 mg/dL BUN 10 10 - 20 mg/dL CREATININE, BLOOD 0.68 0.60 - 1.00 mg/dL BUN/CREATININE RATIO 15 12 - 20 ratio TOTAL PROTEIN 7.2 6.3 - 8.2 g/dL ALBUMIN 3.3 (L) 3.5 - 5.0 g/dL A/G RATIO 0.8 (L) 1.0 - 2.2 CALCIUM 8.9 8.7 - 10.5 mg/dL T BILI 0.6 0.2 - 1.2 mg/dL SGOT (AST) 14 5 - 34 U/L SGPT (ALT) 21 0 - 55 U/L ALKALINE PHOSPHATASE 94 40 - 150 U/L GFR, ESTIMATED >60 >=60 GFR, EST. >60 >=60 GFR, EST. NONAFRICAN >60 >=60 CBC with Auto Differential Result Value Ref Range WBC 8.12 4.00 - 12.00 10(3)/mcL RBC 4.39 3.80 - 5.30 10(6)/mcL HEMOGLOBIN (HGB) 13.2 12.0 - 15.8 g/dL HEMATOCRIT (HCT) 41.2 36.0 - 47.0 % MCV 93.8 82.0 - 96.0 fL MCH 30.1 26.0 - 34.0 pg MCHC 32.0 31.0 - 36.0 g/dL PLATELET COUNT 225 140 - 440 10(3)/mcL RDW 13.3 11.8 - 15.5 % MPV 11.6 9.7 - 12.4 fL NEUTROPHILS 72.7 47.0 - 73.0 % LYMPHOCYTES 18.7 18.0 - 42.0 % MONOCYTES 6.5 4.0 - 12.0 % EOSINOPHILS 1.7 0.0 - 5.0 % BASOPHILS 0.4 0.0 - 1.0 % ABSOLUTE NEUTROPHILS 5.90 1.60 - 7.70 10(3)/mcL ABSOLUTE LYMPHOCYTES 1.52 1.30 - 3.20 10(3)/mcL ABSOLUTE MONOCYTES 0.53 0.20 - 1.00 10(3)/mcL ABSOLUTE EOSINOPHIL 0.14 0.00 - 0.40 10(3)/mcL ABSOLUTE BASOPHILS 0.03 0.00 - 0.10 10(3)/mcL NRBC PER 100 WBC 0 Blood Gases, Arterial w/ O2 Saturation [id number] Result Value Ref Range O2 STATUS 2 94 PH ARTERIAL 7.37 7.35 - 7.45 PC02 (ARTERIAL) 59 (H) 35 - 45 mmHg PO2 (ARTERIAL) 66 (L) 75 - 100 mmHg O2 SAT ART, MEASURED 89 (L) 94 - 100 % BASE ARTERIAL 7.2 (H) -2.0 - 2.0 mmol/L BICARBONATE 34.1 (H) 22.0 - 26.0 mmol/L KARL'S TEST RESULTS Positive - Left Radial CARBOXYHEMOGLOBIN 2.0 0.0 - 5.0 % METHEMOGLOBIN 0.4 0.0 - 1.5 % Imaging Results XR CHEST SINGLE VIEW PORTABLE (Final result) Result time 04/30/23 15:53:11 Final result by Conrad Sanchez MD (04/30/23 15:53:11) Impression: IMPRESSION: No acute cardiopulmonary abnormality. No infiltrate. Narrative: EXAM DESCRIPTION: XR CHEST SINGLE VIEW PORTABLE REASON FOR STUDY: SOB, cough, congestion x 2 weeks TECHNIQUE: Single radiographic view(s) of the chest. COMPARISON: 01/07/2023 and 02/13/2022 FINDINGS: LUNGS: No focal opacity, pleural effusion, or pneumothorax. HEART/MEDIASTINUM: Cardiac silhouette normal in size. Mediastinal and hilar contours appear normal. LINES/TUBES: None. BONES: No acute osseous abnormality. THIS IS AN ELECTRONICALLY VERIFIED FINAL REPORT 04/30/2023 3:48 PM - Electronically signed by Conrad Sanchez M.D. MJ: JAMES Report ID: [id number] Reading Location: [place] [address] Medical Decision Making Clinical Impression 1. Mild intermittent asthma with acute exacerbation 2. Acute on chronic respiratory failure with hypercapnia (HCC) Disposition: Admit ED Course as of 04/30/23 1658 Sun Apr 30, 2023 1654 History reviewed with patient. She is homebound and is a nonsmoker. She has remote history ofasthma, however she has not on any inhalers or nebulizers at this time. She is currently asymptomatic for 2 weeks and she has new oxygen requirement at this time. At this time patient is not in any distress and appears to be comfortable with 2 L O2. Discussed indetail with patient regarding need for hospitalization. Patient is agreeable for hospitalization. Discussed with Dr. Ramirez who agreed for medical floor admission. [KS] ED Course User Index [KS] Carlos Fuchs MD Kalugotla N Shivaram, MD D DONOR RECRUITER SUPERVISOR * Yulia Kemp RN - 04/30/2023 3:11 PM CST Patient to ED via [facility] for c/o SOB. Per [facility] patient has had sinus issues/ congestion x2 weeks. Patient has not seen her PCP for this issue. EMS states patient hasn't done breathing tx in month, but patient denies having nebulizer/albuterol at home. Patient has audible wheezing. EMS gave patient Duo-Reji harp. D DONOR RECRUITER SUPERVISOR * Wendy Mobley - 04/30/2023 3:05 PM CST Bed: [place] [address] Expected date: 04/30/23 Expected time: 3:03 PM Means of arrival: Ambulance (AFD) Comments: [facility] 60F SICK FOR 2 WEEKS D DONOR RECRUITER SUPERVISOR documented in this encounter Miscellaneous Notes * Interdisciplinary - Conrad Montalvo RN - 05/02/2023 1:13 PM CST Pt. Had discharge instructions taught by Marina SHEEHAN. Pt. Taken off the floor with discharge packet andall patient belongings. Pt. Taken off the floor by wheel chair to vehicle to go home. D DONOR RECRUITER SUPERVISOR * Interdisciplinary - Palak Lagos - 05/02/2023 11:53 AM CST Case Management Discharge Readiness Note Alona's readmission risk level (if calculated) is: 2-Medium Low Patient Class: Inpatient Consecutive Inpatient Midnights 2 Actual day(s) of hospital stay (compare to working DRG): 2 Discharge: Final home discharge arrangements: with durable medical equipment Durable Medical Equipment arranged: nebulizer Home no needs Mode of transportation at discharge:: Family car, Taxi Additional Information regarding DC Plan: Patient decline need for home health services Discharge Plan Notification/ Verification Patient's Phone numbers: [phone] (home) Patient's preferred discharge phone number for follow up appointments, etc: (if different from above): N/A Information for bedside nurse to call report and fax PACT Document in Sticky Note?: Not applicable - no external home care agencies or hemodialysis Nursing notified: YES Marvin Patient/ Decision Maker and family notified: Alona Family/ Caregiver's readiness, willingness and ability to support patient with anticipated community discharge plan: Did not speak with family/caregiver during this contact. IM Letter Documentation, if applicable N/A - Payor is not Medicare Decision Maker / Caregiver Information Medical Decision Maker Assessment: Patient is medical decision-maker Medical Decision Maker, if patient unable: Lyla Jolly, mother/POA Middle School Coach/Fire Control Mechanic Name: None D DONOR RECRUITER SUPERVISOR D DONOR RECRUITER SUPERVISOR D DONOR RECRUITER SUPERVISOR * Interdisciplinary - Marina Vázquez RN - 05/02/2023 11:48 AM CST Discharge instructions explained to patient. New meds explained to patient. She verbalized understanding. D DONOR RECRUITER SUPERVISOR * Plan of Care - Conrad Montalvo RN - 05/02/2023 11:42 AM CST Problem: Adult Inpatient Plan of Care Goal: Plan of Care Review Outcome: Outcome Achieved Goal: Patient-Specific Goal (Individualized) Outcome: Outcome Achieved Goal: Absence of Hospital-Acquired Illness or Injury Outcome: Outcome Achieved Goal: Optimal Comfort and Wellbeing Outcome: Outcome Achieved Goal: Readiness for Transition of Care Outcome: Outcome Achieved Problem: Fall Injury Risk Goal: Absence of Fall and Fall-Related Injury Outcome: Outcome Achieved Problem: Gas Exchange Impaired Goal: Optimal Gas Exchange Outcome: Outcome Achieved Problem: Excessive Substance Use Goal: Optimized Energy Level (Excessive Substance Use) Outcome: Outcome Achieved Problem: Asthma Comorbidity Goal: Maintenance of Asthma Control Outcome: Outcome Achieved Problem: Obstructive Sleep Apnea Risk or Actual Comorbidity Management Goal: Unobstructed Breathing During Sleep Outcome: Outcome Achieved D DONOR RECRUITER SUPERVISOR * PatientPass Patient Instructions - Marina Vázquez RN - 05/02/2023 11:30 AM CST Images from the original note were not included. Patient Education Table of Contents Asthma, Adult To view videos and all your education online visit, [email or web address] or scan this QR code with your smartphone. Access to this content will in one year. Asthma, Adult Asthma is a long-term (chronic) condition that causes recurrent episodes in which the lower airwaysin the lungs become tight and narrow. The narrowing is caused by inflammation and tightening of thesmooth muscle around the lower airways. Asthma episodes, also called asthma attacks or asthma flares, may cause coughing, making high-pitched whistling sounds when you breathe, most often when you breathe out (wheezing), shortness of breath, and chest pain. The airways may produce extra mucus caused by the inflammation and irritation. During an attack, it can be difficult to breathe. Asthma attacks can range from minor to life-threatening. Asthma cannot be cured, but medicines and lifestyle changes can help control it and treat acute attacks. It is important to keep your asthma well controlled so the condition does not interfere with your daily life. What are the causes? This condition is believed to be caused by inherited (genetic) and environmental factors, but its exact cause is not known. What can trigger an asthma attack? Many things can bring on an asthma attack or make symptoms worse. These triggers are different for every person. Common triggers include: Allergens and irritants like mold, dust, pet dander, cockroaches, pollen, air pollution, and chemical odors. Cigarette smoke. Weather changes and cold air. Stress and strong emotional responses such as crying or laughing hard. Certain medications such as aspirin or beta blockers. Infections and inflammatory conditions, such as the flu, a cold, pneumonia, or inflammation of the nasal membranes (rhinitis). Gastroesophageal reflux disease (GERD). What are the signs or symptoms? Symptoms may occur right after exposure to an asthma trigger or hours later and can vary by person.Common signs and symptoms include: Wheezing. Trouble breathing (shortness of breath). Excessive nighttime or donor recruiter coughing. Chest tightness. Tiredness (fatigue) with minimal activity. Difficulty talking in complete sentences. Poor exercise tolerance. How is this diagnosed? This condition is diagnosed based on: A physical exam and your medical history. Tests, which may include: ? Lung function studies to evaluate the flow of air in your lungs. ? Allergy tests. ? Imaging tests, such as X-rays. How is this treated? There is no cure, but symptoms can be controlled with proper treatment. Treatment usually involves: Identifying and avoiding your asthma triggers. Inhaled medicines. Two types are commonly used to treat asthma, depending on severity: ? Controller medicines. These help prevent asthma symptoms from occurring. They are taken every day. ? Fast-acting reliever or rescue medicines. These quickly relieve asthma symptoms. They are used asneeded and provide short-term relief. Using other medicines, such as: ? Allergy medicines, such as antihistamines, if your asthma attacks are triggered by allergens. ? Immune medicines (immunomodulators). These are medicines that help control the immune system. Using supplemental oxygen. This is only needed during a severe episode. Creating an asthma action plan. An asthma action plan is a written plan for managing and treating your asthma attacks. This plan includes: ? A list of your asthma triggers and how to avoid them. ? Information about when medicines should be taken and when their dosage should be changed. ? Instructions about using a device called a peak flow meter. A peak flow meter measures how well the lungs are working and the severity of your asthma. It helps you monitor your condition. Follow these instructions at home: Take luac-rrh-euvrsyn and prescription medicines only as told by your health care provider. Stay up to date on all vaccinations as recommended by your healthcare provider, including vaccines for the flu and pneumonia. Use a peak flow meter and keep track of your peak flow readings. Understand and use your asthma action plan to address any asthma flares. Do not smoke or allow anyone to smoke in your home. Contact a health care provider if: You have wheezing, shortness of breath, or a cough that is not responding to medicines. Your medicines are causing side effects, such as a rash, itching, swelling, or trouble breathing. You need to use a reliever medicine more than 2?3 times a week. Your peak flow reading is still at 50?79% of your personal best after following your action plan for 1 hour. You have a fever and shortness of breath. Get help right away if: You are getting worse and do not respond to treatment during an asthma attack. You are short of breath when at rest or when doing very little physical activity. You have difficulty eating, drinking, or talking. You have chest pain or tightness. You develop a fast heartbeat or palpitations. You have a bluish color to your lips or fingernails. You are light-headed or dizzy, or you faint. Your peak flow reading is less than 50% of your personal best. You feel too tired to breathe normally. These symptoms may be an emergency. Get help right away. Call 911. Do not wait to see if the symptoms will go away. Do not drive yourself to the hospital. Summary Asthma is a long-term (chronic) condition that causes recurrent episodes in which the airways become tight and narrow. Asthma episodes, also called asthma attacks or asthma flares, can cause coughing, wheezing, shortness of breath, and chest pain. Asthma cannot be cured, but medicines and lifestyle changes can help keep it well controlled and prevent asthma flares. Make sure you understand how to avoid triggers and how and when to use your medicines. Asthma attacks can range from minor to life-threatening. Get help right away if you have an asthma attack and do not respond to treatment with your usual rescue medicines. This information is not intended to replace advice given to you by your health care provider. Make sure you discuss any questions you have with your health care provider. Document Released: 2006-02-13 Document Updated: 2021-12-01 Document Reviewed: 2021-11-22 [email or web address] Patient Education ? 2023 [employer]. D DONOR RECRUITER SUPERVISOR * Plan of Care - Rachael Trejo PT - 05/02/2023 11:00 AM CST Attempted to see patient for PT evaluation. Patient alert and sitting up in chair. Patient reports she does not need PT and is going home today. Will d/c PT orders at this time. RN notified and aware. RACHAEL TREJO PT D DONOR RECRUITER SUPERVISOR * Home Care Referral - Alicia Romero MD - 05/02/2023 10:40 AM CST Images from the original note were not included. Face to Face Encounter Referral to Home Health made for Alona Kemp, : 1970. This patient has been under my care and I, or a nurse practitioner or physician???s bilingual administrative assistant working with me, had a [id number] encounter with her that meets the requirements on (date) 05/02/2023. Primary Reason for Home Health Care (description of the current medical condition): Deconditioning,strength, endurance (This encounter was in whole or in part for the patient???s medical condition and reason for Home Care) Based on my findings, the following services are medically necessary home health services (must have at least one primary service: Nursing, PT, Speech Language Pathology): Primary Services : Nursing and Physical Therapy Additional Services: Occupational Therapy and Physical Therapy To provide the following care / treatments: Rehabilitation Services and Gait Training My clinical findings support the need for the above services because of the following problems: Deconditioned due to hospitalization, requires further skilled services (Describe what the RN, PT, or LINING FOLDER and other services will be doing in the home Therapy services must be provided with the expectation that, based on the assessment made by the physician of the patient's restorative potential, the condition of the patient will improve materially in a reasonable and generally predictable period of time.) This patient is considered homebound because: Unsteady gait/frequent falls/poor/balance and Dyspneaat rest (The patient must either: Because of illness or injury, need the aid of supportive devices such as crutches, canes, wheelchairs, and walkers; the use of special transportation; or the assistance of another person in order to leave their place of residence, OR Have a condition such that leaving his or her home is medically contraindicated AND there must exist: A normal inability to leave home; ANDLeaving home must require a considerable and taxing effort.) Allergies: Allergies Description Type Start Date End Date Comment Verified Teacher Adult Education Risperidone Intolerance 09-Aug-2017 Severity: High Reactions: Other (see Comments) Comment: Violentand agitated. Jarvis Hopkins PAC (Physician Package Drier) Sulfa Antibiotics Allergy 01-Sep-2015 Severity: Medium Reactions: Sandra Quinn RN Topiramate Intolerance 09-Aug-2017 Severity: High Reactions: Other (see Comments) Comment: Difficulty with speech and word finding. Jarvis Hopkins PAC (Physician Package Drier) Ziprasidone Hcl Unknown 09-Aug-2017 Severity: High Reactions: Other (see Comments) Comment: Abnormal mouth movements Jarvis Hopkins PAC (Physician Package Drier) Immunizations: Immunization History Administered Date(s) Administered Covid-19 Vaccine, Vector-nr, [id number], Pf, 0.5 Ml (Wattage/J&J) 08/05/2020, 02/10/2021 TDAP Vaccine 06/22/2022 She has a past medical history of Adenomatous colon polyp, Anxiety, Bipolar disorder (HCC), Cocaineabuse (HCC), DDD (degenerative disc disease), lumbar, Depression, GERD (gastroesophageal reflux disease), HLD (hyperlipidemia), HTN (hypertension), Hypothyroid, IBS (irritable bowel syndrome), Morbidobesity ([facility]), NAFLD (nonalcoholic fatty liver disease), Nephrocalcinosis, KWABENA (obstructive sleep apnea), SBO (small bowel obstruction) (HCC) (09/2018), and Vitamin D deficiency. She has a past surgical history that includes Section (1994); Cholecystectomy (2004); EGD (2012?); Colonoscopy; Jackson Tooth Extraction (1991); Colonoscopy (N/A, 11/16/2018); and Upper Gastrointestinal Endoscopy (N/A,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 Department Care Team (Late st Contact Info) Description 03/27/2024 8:30 AM BLOOD DONOR RECRUITER SUPERVISOR Hospital Encounter [facility] Periop [address] [place] [address] Burt Eastman MD [address] [address] 03/27/2024 8:30 AM BLOOD DONOR RECRUITER SUPERVISOR - 03/27/2024 9:00 AM BLOOD DONOR RECRUITER SUPERVISOR Surgery [facility] Periop [address] [place] [address] Burt Eastman MD [address] [address] COLONOSCOPY 04/09/2024 1:15 PM BLOOD DONOR RECRUITER SUPERVISOR [facility] & [facility] - [place] [address] [place] [address] Baron Vergara MD [address] [place] [address] Scheduled Procedures Name Priority Associated Diagnoses Date/Ti me COLONOSCOPY HISTORY OF COLON POLYPS 03/27/2024 8:30 AM BLOOD DONOR RECRUITER SUPERVISOR documented as of this encounter Procedures Procedure Name Priority Date/Time Associated Diagnosis Comments POCT GLUCOSE Routine 05/02/2023 10:59 AM BLOOD DONOR RECRUITER SUPERVISOR POCT GLUCOSE Routine 05/02/2023 7:07 AM BLOOD DONOR RECRUITER SUPERVISOR CBC WITH AUTO DIFFERENTIAL Routine 05/02/2023 5:04 AM BLOOD DONOR RECRUITER SUPERVISOR COMPLETE BLOOD COUNT (CBC) WITH DIFF Routine 05/02/2023 5:04 AM BLOOD DONOR RECRUITER SUPERVISOR BASIC METABOLIC PANEL W/ CALCIUM TOTAL Routine 05/02/2023 5:04 AM BLOOD DONOR RECRUITER SUPERVISOR POCT GLUCOSE Routine 05/01/2023 7:50 PM BLOOD DONOR RECRUITER SUPERVISOR POCT GLUCOSE Routine 05/01/2023 5:01 PM BLOOD DONOR RECRUITER SUPERVISOR OT EVALUATE AND TREAT Routine 05/01/2023 3:34 PM BLOOD DONOR RECRUITER SUPERVISOR OT EVALUATE AND TREAT Routine 05/01/2023 3:34 PM BLOOD DONOR RECRUITER SUPERVISOR POCT GLUCOSE Routine 05/01/2023 2:31 PM BLOOD DONOR RECRUITER SUPERVISOR B-TYPE NATRIURETIC PEPTIDE (BNP) STAT 05/01/2023 2:25 PM BLOOD DONOR RECRUITER SUPERVISOR HEMOGLOBIN A1C W/ ESTIMATED GLUCOSE STAT 05/01/2023 5:22 AM BLOOD DONOR RECRUITER SUPERVISOR CBC WITH AUTO DIFFERENTIAL Routine 05/01/2023 5:22 AM BLOOD DONOR RECRUITER SUPERVISOR THYROID STIMULATING HORMONE (TSH) Routine 05/01/2023 5:22 AM BLOOD DONOR RECRUITER SUPERVISOR COMPLETE BLOOD COUNT (CBC) WITH DIFF Routine 05/01/2023 5:22 AM BLOOD DONOR RECRUITER SUPERVISOR BASIC METABOLIC PANEL W/ CALCIUM TOTAL Routine 05/01/2023 5:22 AM BLOOD DONOR RECRUITER SUPERVISOR MDI TREATMENT RT-INITIAL Routine 04/30/2023 11:33 PM BLOOD DONOR RECRUITER SUPERVISOR BLOOD GASES, ARTERIAL W/ O2 SATURATION STAT 04/30/2023 4:28 PM BLOOD DONOR RECRUITER SUPERVISOR AEROSOL NEBULIZER-INITIAL STAT 04/30/2023 3:37 PM BLOOD DONOR RECRUITER SUPERVISOR XR CHEST SINGLE VIEW PORTABLE STAT 04/30/2023 3:22 PM BLOOD DONOR RECRUITER SUPERVISOR RSV,SARS-COV-2,INFLUE NZA A&B BY PCR STAT 04/30/2023 3:20 PM BLOOD DONOR RECRUITER SUPERVISOR CBC WITH AUTO DIFFERENTIAL STAT 04/30/2023 3:20 PM BLOOD DONOR RECRUITER SUPERVISOR CMP (COMPREHENSIVE METABOLIC PANEL) STAT 04/30/2023 3:20 PM BLOOD DONOR RECRUITER SUPERVISOR COMPLETE BLOOD COUNT (CBC) WITH DIFF STAT 04/30/2023 3:20 PM BLOOD DONOR RECRUITER SUPERVISOR CRITICAL CARE Routine 04/30/2023 3:12 PM BLOOD DONOR RECRUITER SUPERVISOR documented in this encounter Results * (ABNORMAL) POCT Glucose (05/02/2023 10:59 AM BLOOD DONOR RECRUITER SUPERVISOR) Only the most recent of5 resultswithin the time period is included. [facility] GLUCOSE,BEDSID E POCT 245(H) 70 - 99 mg/dL 05/02/2023 11:06 AM BLOOD DONOR RECRUITER SUPERVISOR [facility] Blood 05/02/2023 10:5 9 AM BLOOD DONOR RECRUITER SUPERVISOR 05/02/2023 11:06 AM BLOOD DONOR RECRUITER SUPERVISOR us None Provider POINT OF CARE TESTING Final Resu lt [facility] [address] [place] [address] * (ABNORMAL) CBC with Auto Differential (05/02/2023 5:04 AM BLOOD DONOR RECRUITER SUPERVISOR) Only the most recent of3 resultswithin the time period is included. [facility] WBC 14.19(H) 4.00 - 12.00 10(3)/mcL 05/02/2023 5:50 AM [facility] RBC 4.27 3.80 - 5.30 10(6)/mcL 05/02/2023 5:50 AM [facility] HEMOGLOBIN (HGB) 12.7 12.0 - 15.8 g/dL 05/02/2023 5:50 AM [facility] HEMATOCRIT (HCT) 39.9 36.0 - 47.0 % 05/02/2023 5:50 AM [facility] MCV 93.4 82.0 - 96.0 fL 05/02/2023 5:50 AM [facility] MCH 29.7 26.0 - 34.0 pg 05/02/2023 5:50 AM [facility] MCHC 31.8 31.0 - 36.0 g/dL 05/02/2023 5:50 AM [facility] PLATELET COUNT 226 140 - 440 10(3)/[facility] 05/02/2023 5:50 AM [facility] RDW 12.9 11.8 - 15.5 % 05/02/2023 5:50 AM [facility] MPV 12.2 9.7 - 12.4 fL 05/02/2023 5:50 AM [facility] NEUTROPHILS 89.3(H) 47.0 - 73.0 % 05/02/2023 5:50 AM [facility] LYMPHOCYTES 7.9(L) 18.0 - 42.0 % 05/02/2023 5:50 AM [facility] MONOCYTES 2.7(L) 4.0 - 12.0 % 05/02/2023 5:50 AM [facility] EOSINOPHILS 0.0 0.0 - 5.0 % 05/02/2023 5:50 AM [facility] BASOPHILS 0.1 0.0 - 1.0 % 05/02/2023 5:50 AM BLOOD DONOR RECRUITER SUPERVISOR [facility] ABSOLUTE NEUTROPHILS 12.67(H) 1.60 - 7.70 10(3)/[facility] 05/02/2023 5:50 AM BLOOD DONOR RECRUITER SUPERVISOR [facility] ABSOLUTE LYMPHOCYTES 1.12(L) 1.30 - 3.20 10(3)/[facility] 05/02/2023 5:50 AM BLOOD DONOR RECRUITER SUPERVISOR [facility] ABSOLUTE MONOCYTES 0.38 0.20 - 1.00 10(3)/[facility] 05/02/2023 5:50 AM BLOOD DONOR RECRUITER SUPERVISOR [facility] ABSOLUTE EOSINOPHIL 0.00 0.00 - 0.40 10(3)/[facility] 05/02/2023 5:50 AM BLOOD DONOR RECRUITER SUPERVISOR [facility] ABSOLUTE BASOPHILS 0.02 0.00 - 0.10 10(3)/[facility] 05/02/2023 5:50 AM BLOOD DONOR RECRUITER SUPERVISOR [facility] NRBC PER 100 WBC 0 05/02/19 24 5:50 AM [facility] Blood Venipuncture / Unknown 05/02/2023 5:04 AM BLOOD DONOR RECRUITER SUPERVISOR 05/02/2023 5:44 AM BLOOD DONOR RECRUITER SUPERVISOR us Mable Higuera APRN, DAVID HEMATOLOGY ORDERABLES Final Result [facility] [address] [place] [address] * (ABNORMAL) BMP with Ca, Total (05/02/2023 5:04 AM BLOOD DONOR RECRUITER SUPERVISOR) Only the most recent of2 resultswithin the time period is included. SODIUM 136 136 - 145 mmol/L 05/02/2023 6:19 AM [facility] POTASSIUM 4.3 3.5 - 5.1 mmol/L 05/02/2023 6:19 AM [facility] CHLORIDE 99 98 - 107 mmol/L 05/02/2023 6:19 AM [facility] CO2, VENOUS 29 22 - 30 mmol/L 05/02/2023 6:19 AM [facility] ANION GAP 12.3 <18.0 mmol/L 05/02/2023 6:19 AM [facility] GLUCOSE 233(H) 70 - 99 mg/dL 05/02/2023 6:19 AM [facility] BUN 19 10 - 20 mg/dL 05/02/2023 6:19 AM [facility] CREATININE, BLOOD 0.78 0.60 - 1.00 mg/dL 05/02/2023 6:19 AM [facility] BUN/CREATININE RATIO 24(H) 12 - 20 ratio 05/02/2023 6:19 AM [facility] CALCIUM 8.5(L) 8.7 - 10.5 mg/dL 05/02/2023 6:19 AM [facility] GFR, ESTIMATED >60 >=60 05/02/2023 6:19 AM [facility] Comment: Creatinine Clearance is the preferred criteria for selecting drug dose adjustments in renally impaired patients. ??The GFR is provided as additional pertinent clinical information. GFR is reported in mL/min/1.73 sq m. Calculation based on the Chronic Kidney Disease Epidemiology Collaboration (CKD- EPI) equation refit without adjustment for race. GFR, EST. >60 >=60 024 6:19 AM [facility] GFR, EST. NONAFRICAN >60 >=60 05/02/2023 6:19 AM [facility] Blood Venipuncture / Unknown 05/02/2023 5:04 AM BLOOD DONOR RECRUITER SUPERVISOR 05/02/2023 5:45 AM BLOOD DONOR RECRUITER SUPERVISOR us Mable Higuera TRANSCRIPTER, KNIFE CUTTER CHEMISTRY ORDERABLES Final Result [facility] [address] [place] [address] * B-Type Natriuretic Peptide (BNP) (05/01/2023 2:25 PM BLOOD DONOR RECRUITER SUPERVISOR) B TYPE NATRIURETIC PEPTIDE 61 <100 pg/mL 05/01/2023 2:59 PM BLOOD DONOR RECRUITER SUPERVISOR [facility] Blood Venipuncture / Unknown 05/01/2023 2:25 PM BLOOD DONOR RECRUITER SUPERVISOR 05/01/2023 2:32 PM BLOOD DONOR RECRUITER SUPERVISOR Alicia Sweet MD CHEMISTRY ORDERABLES Final Re sult Performing Organization Address [facility] Co de Phone Number [facility] [address] [place] [address] * (ABNORMAL) Hemoglobin A1C w/ Estimated Glucose (05/01/2023 5:22 AM BLOOD DONOR RECRUITER SUPERVISOR) HGB-A1C 6.9(H) 4.0 - 6.0 % 05/01/2023 1:54 PM BLOOD DONOR RECRUITER SUPERVISOR [facility] Est Average Glucose 151.3 mg/dL 05/01/2023 1:54 PM BLOOD DONOR RECRUITER SUPERVISOR [facility] Blood Venipuncture / Unknown 05/01/2023 5:22 AM BLOOD DONOR RECRUITER SUPERVISOR 05/01/2023 6:06 AM BLOOD DONOR RECRUITER SUPERVISOR Narrative [facility] - 05/01/2023 1:54 PM BLOOD DONOR RECRUITER SUPERVISOR HEMOGLOBIN A1C: DIABETIC PATIENTS: WELL-CONTROLLED: ?? 6.2 - 7.0 INTERMEDIATE WELL-CONTROLLED: ??7.0 - 9.0 POORLY-CONTROLLED: ??>9.0 Alicia Sweet MD CHEMISTRY ORDERABLES Final Re sult Performing Organization Address [facility] Co de Phone Number [facility] [address] [place] [address] * Thyroid Stimulating Hormone (TSH) (05/01/2023 5:22 AM BLOOD DONOR RECRUITER SUPERVISOR) TSH 1.514 0.300 - 5.000 mIU/L 05/01/2023 6:56 AM BLOOD DONOR RECRUITER SUPERVISOR [facility] Blood Venipuncture / Unknown 05/01/2023 5:22 AM BLOOD DONOR RECRUITER SUPERVISOR 05/01/2023 6:06 AM BLOOD DONOR RECRUITER SUPERVISOR us Mable Jayden Higuera APRN, DAVID CHEMISTRY ORDERABLES Final Result [facility] [address] [place] [address] * (ABNORMAL) Blood Gases, Arterial w/ O2 Saturation [id number] (04/30/2023 4:28 PM BLOOD DONOR RECRUITER SUPERVISOR) O2 STATUS 2 94 04/30/2023 4:32 PM BLOOD DONOR RECRUITER SUPERVISOR [facility] PH ARTERIAL 7.37 7.35 - 7.45 04/30/2023 4:32 PM BLOOD DONOR RECRUITER SUPERVISOR [facility] PC02 (ARTERIAL) 59(H) 35 - 45 mmHg 04/30/2023 4:32 PM BLOOD DONOR RECRUITER SUPERVISOR [facility] PO2 (ARTERIAL) 66(L) 75 - 100 mmHg 04/30/2023 4:32 PM BLOOD DONOR RECRUITER SUPERVISOR [facility] O2 SAT ART, MEASURED 89(L) 94 - 100 % 04/30/2023 4:32 PM BLOOD DONOR RECRUITER SUPERVISOR [facility] BASE ARTERIAL 7.2(H) -2.0 - 2.0 mmol/L 04/30/2023 4:32 PM BLOOD DONOR RECRUITER SUPERVISOR [facility] BICARBONATE 34.1(H) 22.0 - 26.0 mmol/L 04/30/2023 4:32 PM BLOOD DONOR RECRUITER SUPERVISOR [facility] KARL'S TEST RESULTS Positive - Left Radial 04/30/2023 4:32 PM BLOOD DONOR RECRUITER SUPERVISOR [facility] CARBOXYHEMOGLOBIN 2.0 0.0 - 5.0 % 04/30/2023 4:32 PM BLOOD DONOR RECRUITER SUPERVISOR [facility] METHEMOGLOBIN 0.4 0.0 - 1.5 % 04/30/2023 4:32 PM [facility] ART Blood Gas Arterial Punctur e / Unknown 04/30/2023 4:28 PM BLOOD DONOR RECRUITER SUPERVISOR 04/30/2023 4:28 PM BLOOD DONOR RECRUITER SUPERVISOR Carlos Fuchs MD CHEMISTRY ORDERABLES Fin al Result [facility] [address] [place] [address] * XR CHEST SINGLE VIEW PORTABLE (04/30/2023 3:22 PM BLOOD DONOR RECRUITER SUPERVISOR) Anatomical Region Laterality Modality Chest N/A Digital Radiogra phy 04/30/2023 3:48 PM BLOOD DONOR RECRUITER SUPERVISOR Impressions 04/30/2023 3:53 PM BLOOD DONOR RECRUITER SUPERVISOR IMPRESSION: No acute cardiopulmonary abnormality. ?? No infiltrate. Narrative 04/30/2023 3:53 PM BLOOD DONOR RECRUITER SUPERVISOR EXAM DESCRIPTION: XR CHEST SINGLE VIEW PORTABLE REASON FOR STUDY: SOB, cough, congestion x 2 weeks ?? TECHNIQUE: Single ??radiographic view(s) of the chest. COMPARISON: 01/07/2023 and 02/13/2022 FINDINGS: LUNGS: ??No focal opacity, pleural effusion, or pneumothorax. ?? HEART/MEDIASTINUM: ??Cardiac silhouette normal in size. Mediastinal and hilar contours appear normal. LINES/TUBES: ??None. BONES: ??No acute osseous abnormality. THIS IS AN ELECTRONICALLY VERIFIED FINAL REPORT 04/30/2023 3:48 PM - Electronically signed by ??Conrad RAMIREZ: JAMES D: ??04/30/2023 3:48 PM T: ??04/30/2023 3:48 PM Report ID: [id number] Reading Location: ??[id number] Procedure Note Conrad Sanchez MD - 04/30/2023 EXAM DESCRIPTION: XR CHEST SINGLE VIEW PORTABLE REASON FOR STUDY: SOB, cough, congestion x 2 weeks TECHNIQUE: Single radiographic view(s) of the chest. COMPARISON: 01/07/2023 and 02/13/2022 FINDINGS: LUNGS: No focal opacity, pleural effusion, or pneumothorax. HEART/MEDIASTINUM: Cardiac silhouette normal in size. Mediastinal and hilar contours appear normal. LINES/TUBES: None. BONES: No acute osseous abnormality. THIS IS AN ELECTRONICALLY VERIFIED FINAL REPORT 04/30/2023 3:48 PM - Electronically signed by Conrad RAMIREZ: JAMES Report ID: [id number] Reading Location: [place] [address] IMPRESSION: No acute cardiopulmonary abnormality. No infiltrate. Carlos Fuchs MD IMG DIAGNOSTIC ORDERABLE S Final Result * (ABNORMAL) Comprehensive Metabolic Panel (Cmp) [id number] (04/30/2023 3:20 PM BLOOD DONOR RECRUITER SUPERVISOR) SODIUM 137 136 - 145 mmol/L 04/30/2023 3:52 PM BLOOD DONOR RECRUITER SUPERVISOR [facility] POTASSIUM 3.9 3.5 - 5.1 mmol/L 04/30/2023 3:52 PM [facility] CHLORIDE 103 98 - 107 mmol/L 04/30/2023 3:52 PM [facility] CO2, VENOUS 28 22 - 30 mmol/L 04/30/2023 3:52 PM [facility] ANION GAP 9.9 <18.0 mmol/L 04/30/2023 3:52 PM [facility] GLUCOSE 111(H) 70 - 99 mg/dL 04/30/2023 3:52 PM [facility] BUN 10 10 - 20 mg/dL 04/30/2023 3:52 PM [facility] CREATININE, BLOOD 0.68 0.60 - 1.00 mg/dL 04/30/2023 3:52 PM [facility] BUN/CREATININE RATIO 15 12 - 20 ratio 04/30/2023 3:52 PM [facility] TOTAL PROTEIN 7.2 6.3 - 8.2 g/dL 04/30/2023 3:52 PM [facility] ALBUMIN 3.3(L) 3.5 - 5.0 g/dL 04/30/2023 3:52 PM [facility] A/G RATIO 0.8(L) 1.0 - 2.2 04/30/2023 3:52 PM [facility] CALCIUM 8.9 8.7 - 10.5 mg/dL 04/30/2023 3:52 PM BLOOD DONOR RECRUITER SUPERVISOR [facility] T BILI 0.6 0.2 - 1.2 mg/dL 04/30/2023 3:52 PM BLOOD DONOR RECRUITER SUPERVISOR [facility] SGOT (AST) 14 5 - 34 U/L 04/30/2023 3:52 PM BLOOD DONOR RECRUITER SUPERVISOR [facility] SGPT (ALT) 21 0 - 55 U/L 04/30/2023 3:52 PM BLOOD DONOR RECRUITER SUPERVISOR [facility] ALKALINE PHOSPHATASE 94 40 - 150 U/L 04/30/2023 3:52 PM BLOOD DONOR RECRUITER SUPERVISOR [facility] GFR, ESTIMATED >60 >=60 04/30/2023 3:52 PM BLOOD DONOR RECRUITER SUPERVISOR [facility] Comment: Creatinine Clearance is the preferred criteria for selecting drug dose adjustments in renally impaired patients. ??The GFR is provided as additional pertinent clinical information. GFR is reported in mL/min/1.73 sq m. Calculation based on the Chronic Kidney Disease Epidemiology Collaboration (CKD- EPI) equation refit without adjustment for race. GFR, EST. >60 >=60 024 3:52 PM BLOOD DONOR RECRUITER SUPERVISOR [facility] GFR, EST. NONAFRICAN >60 >=60 04/30/2023 3:52 PM BLOOD DONOR RECRUITER SUPERVISOR [facility] Blood Venipuncture / Unknown 04/30/2023 3:20 PM BLOOD DONOR RECRUITER SUPERVISOR 04/30/2023 3:27 PM BLOOD DONOR RECRUITER SUPERVISOR Carlos Fuchs MD CHEMISTRY ORDERABLES Fin al Result [facility] [address] [place] [address] * RSV,SARS-COV-2,INFLUENZA A&B BY PCR (04/30/2023 3:20 PM BLOOD DONOR RECRUITER SUPERVISOR) FLU A Negative Negative, Error 04/30/2023 4:09 PM BLOOD DONOR RECRUITER SUPERVISOR [facility] FLU B Negative Negative 04/30/2023 4:09 PM BLOOD DONOR RECRUITER SUPERVISOR [facility] RESP SYNC VIRUS Negative Negative 4:09 PM BLOOD DONOR RECRUITER SUPERVISOR [facility] SARSCOV2 NOT DETECTED (Reference Range for this test is Not Detected) 04/30/2023 4:09 PM BLOOD DONOR RECRUITER SUPERVISOR [facility] Comment:This test was perfor med by a Reverse Car Salter PCR Method. Swab NASOPHARYNGEAL SWAB / Unknown Non-Phlebotomy Collection / Unknown 04/30/2023 3:20 PM BLOOD DONOR RECRUITER SUPERVISOR 04/30/2023 3:27 PM BLOOD DONOR RECRUITER SUPERVISOR Narrative [facility] - 04/30/2023 4:09 PM BLOOD DONOR RECRUITER SUPERVISOR This test has not been FDA cleared or approved; the test has been authorized by FDA under an Emergency Use Authorization (EUA) for use by laboratories certified under the CLIA that meet the requirements to perform moderate, high or waived complexity tests. Authorized Fact Sheets about this test for providers and patients are available at: https://www.fda.gov/medical-devices/kpohawupv-fmvkdhxhlm-ckdplct-devices/emergen cy-us e-authorizations us Carlos Fuchs MD MICROBIOLOGY - GENERAL O RDERABLES Final Result [facility] [address] [place] [address] * Critical Care (04/30/2023 3:12 PM BLOOD DONOR RECRUITER SUPERVISOR) Narrative Carlos Fuchs MD - 04/30/2023 3:12 PM BLOOD DONOR RECRUITER SUPERVISOR Carlos Fuchs MD ? 04/30/2023 ??4:58 PM Critical Care Performed by: Carlos Fuchs MD Authorized by: Carlos Fuchs MD ?? Critical care provider statement: ??Critical care time (minutes): ??30 ??Critical care was time spent personally by me on the following activities: ??Ordering and performing treatments and interventions, ordering and review of laboratory studies, ordering and review of radiographic studies, pulse oximetry and re-evaluation of patient's condition us Carlos Fuchs MD PROCEDURE/MINOR SURGICAL ORDERABLES Final Result documented in this encounter Visit Diagnoses Diagnosis Acute respiratory failure with hypoxia (HCC)- Primary Acute respiratory failure Mild intermittent asthma with acute exacerbation Unspecified asthma, with exacerbation Acute on chronic respiratory failure with hypercapnia (HCC) Acute respiratory failure with hypoxia (HCC) Acute respiratory failure Asthma exacerbation Unspecified asthma, with exacerbation Asthma exacerbation Unspecified asthma, with exacerbation Crack cocaine use Cocaine abuse, unspecified KWABENA (obstructive sleep apnea) Obstructive sleep apnea (adult) (pediatric) HLD (hyperlipidemia) Other and unspecified hyperlipidemia HTN (hypertension) Unspecified essential hypertension Anxiety Anxiety state, unspecified Depression Depressive disorder, not elsewhere classified Bipolar disorder (HCC) Bipolar disorder, unspecified Hypothyroid Unspecified hypothyroidism GERD (gastroesophageal reflux disease) Esophageal reflux documented in this encounter Admitting Diagnoses Diagnosis Mild intermittent asthma with acute exacerbation Unspecified asthma, with exacerbation documented in this encounter Administered Medications Inactive Administered Medications - up to 3 most recent administrations Medication Order MAR Action Action Date Dose Rate Site acetaminophen (TYLENOL) tablet 650 mg 650 mg, Oral, EVERY 4 HOURS PRN, Starting on Mon04/30/23 at 1856, Until Mon05/02/23 at 1532, Mild pain or more severe pain if patient requests, Maximum dose of acetaminophen is 4000 mg from all sources in 24 hours. Given 05/02/2023 7:07 AM BLOOD DONOR RECRUITER SUPERVISOR 650 mg albuterol (PROVENTIL, VENTOLIN) (2.5 MG/3ML) 0.083% nebulizer solution 2.5 mg 2.5 mg, Nebulization, EVERY 6 HOURS PRN, Starting on Mon04/30/23 at 2332, Until Mon05/02/23 at 1532, Wheezing, 1. For RTA Severity Level 1 2. Discontinue all albuterol and ipratropium ORDERS AND ORDER SET if assessment results for 2 consecutive days has been a level 1 and no PRN treatments have been administered in the same time period. 3. A new physician order is required to resume order set once discontinued.Indications:Acute respiratory failure with hypoxia (HCC),Asthma exacerbation Given 05/01/2023 7:30 AM BLOOD DONOR RECRUITER SUPERVISOR 2.5 mg benzonatate (TESSALON) capsule 100 mg 100 mg, Oral, 3 TIMES DAILY PRN, Starting on 04/30/23 at 1856, Until Mon05/02/23 at 1532, Cough, Swallow capsule whole (do not break, chew, dissolve, cut, or crush). If capsules are chewed or dissolved in the mouth, oral mucosa anesthesia may occur and could lead to choking. If numbness or tingling of the tongue, mouth, throat, or face occurs, refrain from oral ingestion of food or liquid until numbness has resolved. Given 05/02/2023 8:39 AM BLOOD DONOR RECRUITER SUPERVISOR 100 mg Given 05/01/2023 8:45 PM BLOOD DONOR RECRUITER SUPERVISOR 100 mg benzonatate (TESSALON) capsule 200 mg 200 mg, Oral, 3 TIMES DAILY, First dose on Mon05/02/23 at 1400, Until Discontinued, Do not crush. benztropine (COGENTIN) tablet 0.5 mg 0.5 mg, Oral, 2 TIMES DAILY, First dose on Mon04/30/23 at 2100, Until Discontinued Given 05/02/2023 8:39 AM BLOOD DONOR RECRUITER SUPERVISOR 0.5 m g Given 05/01/2023 8:46 PM BLOOD DONOR RECRUITER SUPERVISOR 0.5 mg Given 05/01/2023 8:17 AM BLOOD DONOR RECRUITER SUPERVISOR 0.5 mg dextrose 50 % solution 12.5 g 12.5 g, Intravenous, PRN, Starting on Mon05/01/23 at 1332, Until Mon05/02/23 at 1532, Low blood sugar, If IV patent in patient with blood glucose of 50 or less, or Unconscious, Conscious but NPO or Unable to Swallow regardless of blood glucose, administer 1 dose of dextrose 50% solution. DULoxetine (CYMBALTA) capsule 60 mg 60 mg, Oral, 2 TIMES DAILY, First dose on Mon05/01/23 at 0900, Until Discontinued, Do Not Crush Given 05/02/2023 8:39 AM BLOOD DONOR RECRUITER SUPERVISOR 60 mg Given 05/01/2023 8:45 PM BLOOD DONOR RECRUITER SUPERVISOR 60 mg Given 05/01/2023 8:17 AM BLOOD DONOR RECRUITER SUPERVISOR 60 mg enoxaparin (LOVENOX) injection 40 mg 40 mg, Subcutaneous, EVERY 12 HOURS SCHEDULED, First dose on Mon04/30/23 at 2100, Until DiscontinuedIndications:Prophylaxis of Venous Thromboembolism Given 05/02/2023 8:39 AM BLOOD DONOR RECRUITER SUPERVISOR 40 mg Left Abdomen Given 05/01/2023 8:45 PM BLOOD DONOR RECRUITER SUPERVISOR 40 mg Le ft Abdomen Given 05/01/2023 8:18 AM BLOOD DONOR RECRUITER SUPERVISOR 40 mg Le ft Abdomen folic acid (FOLVITE) tablet 1 mg 1 mg, Oral, DAILY, First dose on Mon05/01/23 at 0900, Until Discontinued Given 05/02/2023 8:39 AM BLOOD DONOR RECRUITER SUPERVISOR 1 mg Given 05/01/2023 8:17 AM BLOOD DONOR RECRUITER SUPERVISOR 1 mg furosemide (LASIX) injection 20 mg 20 mg, Intravenous, ONCE, 1 dose, On Mon05/01/23 at 1400 Given 05/01/2023 2:35 PM BLOOD DONOR RECRUITER SUPERVISOR 20 mg glucagon injection SOLR 1 mg 1 mg, Intramuscular, PRN, Starting on Mon05/01/23 at 1332, Until Mon05/02/23 at 1532, If patient has no intravenous access and blood glucose of 50 or less, or Unconscious, Conscious but NPO or Unable to Swallow regardless of blood glucose administer 1 dose of glucagon. Glucagon may cause vomiting. Position patient on the side., Other, Low blood sugar glucagon injection SOLR 1 mg 1 mg, Subcutaneous, PRN, Starting on Mon05/01/23 at 1332, Until Mon05/02/23 at 1532, If patient has no intravenous access and blood glucose of 50 or less, or Unconscious, Conscious but NPO or Unable to Swallow regardless of blood glucose administer 1 dose of glucagon. Glucagon may cause vomiting. Position patient on the side., Other, Low blood sugar glucose (GLUTOSE) 40 % gel GEL 15 g 15 g, Oral, PRN, Starting on Mon05/01/23 at 1332, Until Mon05/02/23 at 1532, Low blood sugar, Dose is based on glucose. 37.5 g tube = 15 GRAMS of GLUCOSE. For 15 GRAM GLUCOSE dose, give entire 37.5 g size tube. Administer 1 dose if patient is unable to take food, but conscious and able to swallow. guaiFENesin (MUCINEX) SR tablet 600 mg 600 mg, Oral, 2 TIMES DAILY, First dose on Mon04/30/23 at 2100, Until Discontinued, Do Not Crush Given 05/02/2023 8:39 AM BLOOD DONOR RECRUITER SUPERVISOR 600 mg Given 05/01/2023 8:45 PM BLOOD DONOR RECRUITER SUPERVISOR 600 mg Given 05/01/2023 8:17 AM BLOOD DONOR RECRUITER SUPERVISOR 600 mg insulin glargine (LANTUS) 100 UNIT/ML injection 10 Units 10 Units, Subcutaneous, NIGHTLY, First dose on Mon05/01/23 at 2100, Until Discontinued Given 05/01/2023 9:00 PM BLOOD DONOR RECRUITER SUPERVISOR 10 Units Left Abdomen insulin lispro (HumaLOG) 100 UNIT/ML injection 2-12 Units 2-12 Units, Subcutaneous, 3 TIMES DAILY AFTER MEALS, First dose on Mon05/01/23 at 1400, Until Discontinued, If BS is: 70-180, give no correction Insulin. 181-200, give 2 Unit. 201-250, give 4 Units. 251-300, give 6 Units. 301-350, give 8 Units. 351-400, give 10 Units. 401 or greater, give 12 units and call physician Given 05/01/2023 5:07 PM BLOOD DONOR RECRUITER SUPERVISOR 4 Units Left Lateral Upper A rm Given 05/01/2023 2:35 PM BLOOD DONOR RECRUITER SUPERVISOR 4 Units Le ft Abdomen insulin lispro (HumaLOG) 100 UNIT/ML injection 2-6 Units 2-6 Units, Subcutaneous, NIGHTLY, First dose on Mon05/01/23 at 2100, Until Discontinued, If BS is: 70-200, give no correction Insulin. 201-250, give 2 units. 251-300, give 3 units. 301-350, give 4 units. 351-400, give 5 units. 401 or greater, give 6 units and call physician Given 05/01/2023 8:45 PM BLOOD DONOR RECRUITER SUPERVISOR 4 Units Left Abdomen ipratropium-albuterol (COMBIVENT RESPIMAT) 20-100 MCG/ACT inhaler 2 Puff 2 Puff, Inhalation, 4 TIMES DAILY, First dose on Mon04/30/23 at 2100, Until Discontinued, For disposal - Place in Purple Disposal Bin or bag and return to Pharmacy Given 04/30/2023 8:35 PM BLOOD DONOR RECRUITER SUPERVISOR 2 Puffs ipratropium-albuterol (DUO-NEB) 0.5-2.5 (3) MG/3ML nebulizer solution 3 mL 3 mL, Nebulization, ONCE, 1 dose, On Mon04/30/23 at 1530 Given 04/30/2023 3:32 PM BLOOD DONOR RECRUITER SUPERVISOR 3 mL IPRATROPIUM-ALBUTEROL 0.5-2.5 (3) MG/3ML IN SOLN 1 dose, Starting on Mon04/30/23 at 1514, Until Mon05/02/23 at 1532, Created by jennie obrien levothyroxine (SYNTHROID) tablet 50 mcg 50 mcg, Oral, EVERY MORNING BEFORE BREAKFAST, First dose on Mon05/01/23 at 0730, Until DiscontinuedIndications:Hypothyro idism Given 05/02/2023 7:07 AM BLOOD DONOR RECRUITER SUPERVISOR 50 mcg Given 05/01/2023 8:17 AM BLOOD DONOR RECRUITER SUPERVISOR 50 mcg methylPREDNISolone Na Suc (PF) (Solu-MEDROL) injection 125 mg 125 mg, Intravenous, ONCE, 1 dose, On Mon04/30/23 at 1600 Given 04/30/2023 3:19 PM BLOOD DONOR RECRUITER SUPERVISOR 125 mg methylPREDNISolone Na Suc (PF) (Solu-MEDROL) injection 40 mg 40 mg, Intravenous, EVERY 12 HOURS, First dose (after last modification) on Mon05/01/23 at 2100, Until Discontinued Given 05/02/2023 8:39 AM BLOOD DONOR RECRUITER SUPERVISOR 40 mg Given 05/01/2023 8:45 PM BLOOD DONOR RECRUITER SUPERVISOR 40 mg methylPREDNISolone Na Suc (PF) (Solu-MEDROL) injection 62.5 mg 62.5 mg, Intravenous, EVERY 8 HOURS, First dose on Mon05/01/23 at 0900, Until Discontinued Given 05/01/2023 8:17 AM BLOOD DONOR RECRUITER SUPERVISOR 62.5 mg miconazole 2 % powder Topical, 2 TIMES DAILY, First dose on Mon05/02/23 at 0230, Until Discontinued, Application Site: skin folds Given 05/02/2023 8:44 AM BLOOD DONOR RECRUITER SUPERVISOR ondansetron (ZOFRAN) injection 4 mg 4 mg, Intravenous, EVERY 6 HOURS PRN, Starting on Mon04/30/23 at 1856, Until Mon05/02/23 at 1532, Nausea - 1st line, 1. First Line Antiemetic. 2. Use Injection only if patient unable to tolerate oral medications. ondansetron (ZOFRAN-ODT) disintegrating tablet 4 mg 4 mg, Oral, EVERY 6 HOURS PRN, Starting on Mon04/30/23 at 1856, Until Mon05/02/23 at 1532, Nausea - 1st line, 1. First Line Antiemetic. 2. Use PO form unless unable to tolerate PO medications, then use Injection pantoprazole (PROTONIX) tablet 40 mg 40 mg, Oral, EVERY MORNING BEFORE BREAKFAST, First dose on Mon05/01/23 at 0730, Until Discontinued, Indications: Symptomatic Gastroesophageal Reflux DiseaseIndications:Symptomatic Gastroesophageal Reflux Disease Given 05/02/2023 7:07 AM BLOOD DONOR RECRUITER SUPERVISOR 40 mg Given 05/01/2023 8:17 AM BLOOD DONOR RECRUITER SUPERVISOR 40 mg promethazine-codeine (PHENERGAN with CODEINE) 6.25-10 MG/5ML syrup 5 mL 5 mL, Oral, EVERY 12 HOURS, 14 doses, First dose on Mon05/02/23 at 1000, Last dose on Mon05/08/23 at 2200 simvastatin (ZOCOR) tablet 10 mg 10 mg, Oral, EVERY EVENING, First dose on Mon04/30/23 at 2000, Until Discontinued Given 05/01/2023 5:07 PM BLOOD DONOR RECRUITER SUPERVISOR 10 mg Given 04/30/2023 9:22 PM BLOOD DONOR RECRUITER SUPERVISOR 10 mg traZODone (DESYREL) tablet 100 mg 100 mg, Oral, NIGHTLY, First dose on Mon04/30/23 at 2100, Until Discontinued Given 05/01/2023 8:45 PM BLOOD DONOR RECRUITER SUPERVISOR 100 mg Given 04/30/2023 9:21 PM BLOOD DONOR RECRUITER SUPERVISOR 100 mg documented in this encounter Active and Recently Administered Medications Times are shown in BLOOD DONOR RECRUITER SUPERVISOR. Scheduled Medication Order 04/30/2023 05/01/2023 05/02/2023 benzonatate (TESSALON) capsule 200 mg 200 mg, Oral, 3 TIMES DAILY, First dose on Mon05/02/23 at 1400, Until Discontinued, Do not crush. benztropine (COGENTIN) tablet 0.5 mg 0.5 mg, Oral, 2 TIMES DAILY, First dose on Mon04/30/23 at 2100, Until Discontinued 2120 (Given - Provider: Audra Rodriguez RN) 08 (Given - Provider: Conrad Montalvo RN)2045 (Given - Provider: Mable Aguilar RN) 0839 (Given - Provider: Conrad Montalvo RN) DULoxetine (CYMBALTA) capsule 60 mg 60 mg, Oral, 2 TIMES DAILY, First dose on Mon05/01/23 at 0900, Until Discontinued, Do Not Crush 0817 (Given - Provider: Conrad Montalvo RN)2044 (Given - Provider: Mable Aguilar, AGUILA) 0839 (Given - Provider: Conrad Montalvo RN) enoxaparin (LOVENOX) injection 40 mg 40 mg, Subcutaneous, EVERY 12 HOURS SCHEDULED, First dose on Mon04/30/23 at 2100, Until Discontinued 2120 (Given - Provider: Audra Rodriguez RN) 0818 (Given - Provider: Conrad Montalvo RN)2044 (Given - Provider: Mable Aguilar RN) 0839 (Given - Provider: Conrad Montalvo RN) folic acid (FOLVITE) tablet 1 mg 1 mg, Oral, DAILY, First dose on Mon05/01/23 at 0900, Until Discontinued 08 (Given - Provider: Conrad Montalvo RN) 0839 (Given - Provider: Conrad Montalvo RN) furosemide (LASIX) injection 20 mg (COMPLETED) 20 mg, Intravenous, ONCE, 1 dose, On Mon05/01/23 at 1400 1435 (Given - Provider: Conrad Montalvo RN) guaiFENesin (MUCINEX) SR tablet 600 mg 600 mg, Oral, 2 TIMES DAILY, First dose on Mon04/30/23 at 2100, Until Discontinued, Do Not Crush 2120 (Given - Provider: Audra Rodriguez RN) 816 (Given - Provider: Conrad Montalvo RN)2044 (Given - Provider: Mable Aguilar RN) 0839 (Given - Provider: Conrad Montalvo RN) insulin glargine (LANTUS) 100 UNIT/ML injection 10 Units 10 Units, Subcutaneous, NIGHTLY, First dose on Mon05/01/23 at 2100, Until Discontinued 2100 (Given - Provider: Mable Aguilar, AGUILA) insulin lispro (HumaLOG) 100 UNIT/ML injection 2-12 Units 2-12 Units, Subcutaneous, 3 TIMES DAILY AFTER MEALS, First dose on Mon05/01/23 at 1400, Until Discontinued, If BS is: 70-180, give no correction Insulin. 181-200, give 2 Unit. 201-250, give 4 Units. 251-300, give 6 Units. 301-350, give 8 Units. 351-400, give 10 Units. 401 or greater, give 12 units and call physician 1435 (Given - Provider: Conrad Montalvo RN)1707 (Given - Provider: Conrad Montalvo, AGUILA) 0900 (Not Given - Provider: Conrad Montalvo RN - Reason: Order parameters not met)1300 (Due) insulin lispro (HumaLOG) 100 UNIT/ML injection 2-6 Units 2-6 Units, Subcutaneous, NIGHTLY, First dose on Mon05/01/23 at 2100, Until Discontinued, If BS is: 70-200, give no correction Insulin. 201-250, give 2 units. 251-300, give 3 units. 301-350, give 4 units. 351-400, give 5 units. 401 or greater, give 6 units and call physician 2044 (Given - Provider: Mable Aguilar, AGUILA) ipratropium-albuterol (COMBIVENT RESPIMAT) 20-100 MCG/ACT inhaler 2 Puff (CANCELED) 2 Puff, Inhalation, 4 TIMES DAILY, First dose on Mon04/30/23 at 2100, Until Discontinued, For disposal - Place in Purple Disposal Bin or bag and return to Pharmacy 2034 (Given - Provider: Lexie Zapata, DIRECTOR OF USER EXPERIENCE) ipratropium-albuterol (DUO-NEB) 0.5-2.5 (3) MG/3ML nebulizer solution 3 mL (COMPLETED) 3 mL, Nebulization, ONCE, 1 dose, On Mon04/30/23 at 1530 1532 (Given - Provider: Leticia Brasher, RT) levothyroxine (SYNTHROID) tablet 50 mcg 50 mcg, Oral, EVERY MORNING BEFORE BREAKFAST, First dose on Mon05/01/23 at 0730, Until Discontinued 816 (Given - Provider: Conrad Montalvo, AGUILA) 07 (Given - Provider: Conrad Montalvo, AGUILA) methylPREDNISolone Na Suc (PF) (Solu-MEDROL) injection 125 mg (COMPLETED) 125 mg, Intravenous, ONCE, 1 dose, On Mon04/30/23 at 1600 1519 (Given - Provider: Yulia Kemp RN) methylPREDNISolone Na Suc (PF) (Solu-MEDROL) injection 40 mg 40 mg, Intravenous, EVERY 12 HOURS, First dose (after last modification) on Mon05/01/23 at 2100, Until Discontinued 2044 (Given - Provider: Mable Aguilar, AGUILA) 08 (Given - Provider: Conrad Montalvo, AGUILA) methylPREDNISolone Na Suc (PF) (Solu-MEDROL) injection 62.5 mg (CANCELED) 62.5 mg, Intravenous, EVERY 8 HOURS, First dose on Mon05/01/23 at 0900, Until Discontinued 816 (Given - Provider: Conrad Montalvo, AGUILA) miconazole 2 % powder Topical, 2 TIMES DAILY, First dose on Mon05/02/23 at 0230, Until Discontinued, Application Site: skin folds 023 (Not Given - Provider: Dahlia Almanza - Reason: Medication not available)0844 (Given - Provider: Conrad Montalvo, AGUILA) pantoprazole (PROTONIX) tablet 40 mg 40 mg, Oral, EVERY MORNING BEFORE BREAKFAST, First dose on Mon05/01/23 at 0730, Until Discontinued, Indications: Symptomatic Gastroesophageal Reflux Disease 0817 (Given - Provider: Conrad Montalvo, AGUILA) 0707 (Given - Provider: Conrad Montalvo RN) promethazine-codeine (PHENERGAN with CODEINE) 6.25-10 MG/5ML syrup 5 mL 5 mL, Oral, EVERY 12 HOURS, 14 doses, First dose on Mon05/02/23 at 1000, Last dose on Mon05/08/23 at 2200 1000 (Not Given - Provider: Conrad Montalvo RN - Reason: Contraindicated) simvastatin (ZOCOR) tablet 10 mg 10 mg, Oral, EVERY EVENING, First dose on Mon04/30/23 at 2000, Until Discontinued 2121 (Given - Provider: Audra Rodriguez RN) 1706 (Given - Provider: Conrad Montalvo RN) traZODone (DESYREL) tablet 100 mg 100 mg, Oral, NIGHTLY, First dose on Mon04/30/23 at 2100, Until Discontinued 2120 (Given - Provider: Audra Rodriguez RN) 2044 (Given - Provider: Mable Aguilar RN) PRN Medication Order 04/30/2023 05/01/2023 05/02/2023 acetaminophen (TYLENOL) tablet 650 mg 650 mg, Oral, EVERY 4 HOURS PRN, Starting on Mon04/30/23 at 1856, Until Mon05/02/23 at 1532, Mild pain or more severe pain if patient requests, Maximum dose of acetaminophen is 4000 mg from all sources in 24 hours. 07 (Given - Provid er: Conrad Montalvo RN) albuterol (PROVENTIL, VENTOLIN) (2.5 MG/3ML) 0.083% nebulizer solution 2.5 mg 2.5 mg, Nebulization, EVERY 6 HOURS PRN, Starting on Mon04/30/23 at 2332, Until Mon05/02/23 at 1532, Wheezing, 1. For RTA Severity Level 1 2. Discontinue all albuterol and ipratropium ORDERS AND ORDER SET if assessment results for 2 consecutive days has been a level 1 and no PRN treatments have been administered in the same time period. 3. A new physician order is required to resume order set once discontinued. 729 (Given - Provider: Leticia Brasher, RT) benzonatate (TESSALON) capsule 100 mg 100 mg, Oral, 3 TIMES DAILY PRN, Starting on Mon04/30/23 at 1856, Until Mon05/02/23 at 1532, Cough, Swallow capsule whole (do not break, chew, dissolve, cut, or crush). If capsules are chewed or dissolved in the mouth, oral mucosa anesthesia may occur and could lead to choking. If numbness or tingling of the tongue, mouth, throat, or face occurs, refrain from oral ingestion of food or liquid until numbness has resolved. 2044 (Given - Provider: Mable Aguilar, AGUILA) 08 (Given - Provider: Conrad Montalvo RN) calcium carbonate (TUMS) chewable tablet 1,000 mg 1,000 mg, Oral, EVERY 8 HOURS PRN, Starting on Mon04/30/23 at 1856, Until Mon05/02/23 at 1532, Heartburn, Indigestion dextrose 50 % solution 12.5 g(Linked Group 1) 12.5 g, Intravenous, PRN, Starting on Mon05/01/23 at 1332, Until Mon05/02/23 at 1532, Low blood sugar, If IV patent in patient with blood glucose of 50 or less, or Unconscious, Conscious but NPO or Unable to Swallow regardless of blood glucose, administer 1 dose of dextrose 50% solution. glucagon injection SOLR 1 mg(Linked Group 1) 1 mg, Intramuscular, PRN, Starting on Mon05/01/23 at 1332, Until Mon05/02/23 at 1532, If patient has no intravenous access and blood glucose of 50 or less, or Unconscious, Conscious but NPO or Unable to Swallow regardless of blood glucose administer 1 dose of glucagon. Glucagon may cause vomiting. Position patient on the side., Other, Low blood sugar glucagon injection SOLR 1 mg(Linked Group 1) 1 mg, Subcutaneous, PRN, Starting on Mon05/01/23 at 1332, Until Mon05/02/23 at 1532, If patient has no intravenous access and blood glucose of 50 or less, or Unconscious, Conscious but NPO or Unable to Swallow regardless of blood glucose administer 1 dose of glucagon. Glucagon may cause vomiting. Position patient on the side., Other, Low blood sugar glucose (GLUTOSE) 40 % gel GEL 15 g(Linked Group 1) 15 g, Oral, PRN, Starting on 05/01/23 at 1332, Until 05/02/23 at 1532, Low blood sugar, Dose is based on glucose. 37.5 g tube = 15 GRAMS of GLUCOSE. For 15 GRAM GLUCOSE dose, give entire 37.5 g size tube. Administer 1 dose if patient is unable to take food, but conscious and able to swallow. hydrOXYzine (ATARAX) tablet 50 mg 50 mg, Oral, EVERY 6 HOURS PRN, Starting on 04/30/23 at 1856, Until 05/02/23 at 1532, Anxiety, Mild anxiety magnesium hydroxide (MILK OF MAGNESIA) 400 MG/5ML suspension 30 mL 30 mL, Oral, DAILY PRN, Starting on 04/30/23 at 1856, Until 05/02/23 at 1532, Constipation - 3rd line, Magnesium hydroxide 400 mg/5 ml = 166.7 mg elemental magnesium/5ml. Hold for loose stools (loose, liquid, mucoid, soft, watery stool that takes the shape of the container) or greater than 2 moderate or larger stools in 24hrs melatonin tablet 6 mg 6 mg, Oral, NIGHTLY PRN, Starting on 04/30/23 at 1856, Until 05/02/23 at 1532, Other, Sleep metoclopramide (REGLAN) tablet 10 mg 10 mg, Oral, EVERY 6 HOURS PRN, Starting on 04/30/23 at 1856, Until 05/02/23 at 1532, Nausea - 2nd line, Second Line Antiemetic Give if nausea/vomiting recurs after ondansetron. ondansetron (ZOFRAN) injection 4 mg(Linked Group 2) 4 mg, Intravenous, EVERY 6 HOURS PRN, Starting on 04/30/23 at 1856, Until 05/02/23 at 1532, Nausea - 1st line, 1. First Line Antiemetic. 2. Use Injection only if patient unable to tolerate oral medications. ondansetron (ZOFRAN-ODT) disintegrating tablet 4 mg(Linked Group 2) 4 mg, Oral, EVERY 6 HOURS PRN, Starting on Mon04/30/23 at 1856, Until Mon05/02/23 at 1532, Nausea - 1st line, 1. First Line Antiemetic. 2. Use PO form unless unable to tolerate PO medications, then use Injection polyethylene glycol (GLYCOLAX, MIRALAX) packet 17 g 17 g, Oral, 2 TIMES DAILY PRN, Starting on Mon04/30/23 at 1856, Until Mon05/02/23 at 1532, Constipation - 1st line, Dilute dose in 120 - 240 mL of beverage.Hold for loose stools (loose, liquid, mucoid, soft, watery stool that takes the shape of the container) or greater than 2 moderate or larger stools in 24hrs rOPINIRole (REQUIP) tablet 0.5 mg 0.5 mg, Oral, EVERY 12 HOURS PRN, Starting on Mon04/30/23 at 1921, Until Mon05/02/23 at 1532, Other, For restless legs senna (SENOKOT) tablet 8.6 mg 8.6 mg (1 Tablet), Oral, 2 TIMES DAILY PRN, Starting on Mon04/30/23 at 1856, Until Mon05/02/23 at 1532, Constipation - 2nd line No Frequency Medication Order 04/30/2023 05/01/2023 05/02/2023 IPRATROPIUM-ALBUTEROL 0.5-2.5 (3) MG/3ML IN SOLN 1 dose, Starting on Mon04/30/23 at 1514, Until Mon05/02/23 at 1532, Created by cabinet override Linked Groups Order Group 1: glucose (GLUTOSE) 40 % gel GEL 15 gJump to med 15 g, Oral, PRN, Starting on Mon05/01/23 at 1332, Until Mon05/02/23 at 1532, Low blood sugar, Dose is based on glucose. 37.5 g tube = 15 GRAMS of GLUCOSE. For 15 GRAM GLUCOSE dose, give entire 37.5 g size tube. Administer 1 dose if patient is unable to take food, but conscious and able to swallow. Or dextrose 50 % solution 12.5 gJump to med 12.5 g, Intravenous, PRN, Starting on Mon05/01/23 at 1332, Until Mon05/02/23 at 1532, Low blood sugar, If IV patent in patient with blood glucose of 50 or less, or Unconscious, Conscious but NPO or Unable to Swallow regardless of blood glucose, administer 1 dose of dextrose 50% solution. Or glucagon injection SOLR 1 mgJump to med 1 mg, Intramuscular, PRN, Starting on Mon05/01/23 at 1332, Until Mon05/02/23 at 1532, If patient has no intravenous access and blood glucose of 50 or less, or Unconscious, Conscious but NPO or Unable to Swallow regardless of blood glucose administer 1 dose of glucagon. Glucagon may cause vomiting. Position patient on the side., Other, Low blood sugar Or glucagon injection SOLR 1 mgJump to med 1 mg, Subcutaneous, PRN, Starting on Mon05/01/23 at 1332, Until Mon05/02/23 at 1532, If patient has no intravenous access and blood glucose of 50 or less, or Unconscious, Conscious but NPO or Unable to Swallow regardless of blood glucose administer 1 dose of glucagon. Glucagon may cause vomiting. Position patient on the side., Other, Low blood sugar Group 2: ondansetron (ZOFRAN-ODT) disintegrating tablet 4 mgJump to med 4 mg, Oral, EVERY 6 HOURS PRN, Starting on 04/30/23 at 1856, Until Mon05/02/23 at 1532, Nausea - 1st line, 1. First Line Antiemetic. 2. Use PO form unless unable to tolerate PO medications, then use Injection Or ondansetron (ZOFRAN) injection 4 mgJump to med 4 mg, Intravenous, EVERY 6 HOURS PRN, Starting on 04/30/23 at 1856, Until Tu05/02/23 at 1532, Nausea - 1st line, 1. First Line Antiemetic. 2. Use Injection only if patient unable to tolerate oral medications. documented in this encounter Additional Health Concerns Infection Onset Date Last Indicated Resolved Time COVID - 19 04/30/2023 04/30/2023 04/30/2023 4:09 PM BLOOD DONOR RECRUITER SUPERVISOR documented as of this encounter Care Teams Silk Screen Operator Relationship Specialty Start Date End Date Daja Carballo MD [address] [place], [place] [id number] PCP - General Internal Medicine 03/13/15 documented as of this encounter
--- OUTSIDE RECORDS SUMMARY | 2024-03-03 19:26 | XMS_ITS | Encounter Summary ---
Author Organization [facility] Address [address] [place] [address] Phone Care Team Providers Care Awning Hanger Name Role Phone Daja Kern MD Primary Care Provider Baron Vergara MD Unavailable Encounter Details Date Type Department Care Team (Late st Contact Info) Description 06/29/2023 Transcribe Orders [facility] [address] [place] [address] Baron Vergara MD [address] [place] [address] Social History Tobacco Use Types Packs/Day Years Used Date Smoking Tobacco: Never Smokeless Tobacco: Never Alcohol Use Standard Drinks/Week Comments No 0 (1 standard drink = 0.6 oz pur e alcohol) [facility] Utilities Answer Date Recorded In the past 12 months has [employer], gas, oil, or water [employer] threatened to shut off services in your home? Patient declined 05/22/2023 Social Connection and Isolation Panel [NHANES] A nswer Date Recorded In a typical week, how many times do you talk on the phone with family, friends, or neighbors? Patient declined 05/22/2023 How often do you get togethe r with friends or relatives? Patient declined 05/22/2023 How often do you attend alevism or church serv ices? Patient declined 05/22/2023 Do you belong to any clubs o r organizations such as alevism groups, unions, fraternal or athletic groups, or [...] medical care, and heating? Patient declined 05/22/2023 [facility] - Occupational Stress Questionnaire Answer Date [...] place to sleep or slept in a correction (including now)? Patient declined 05/22/2023 Sexually Active [...] st Contact Info) Description 03/27/2024 8:30 AM STORES CLERK Hospital [facility] [address] [place] [address] Burt Eastman MD [address] [id number] 03/27/2024 8:30 AM STORES CLERK - 03/27/2024 9:00 AM STORES CLERK [facility] [address] [place] [address] Burt Eastman MD [address] [address] COLONOSCOPY 04/09/2024 1:15 PM STORES CLERK Office Visit [facility] - Pulmonology & Sleep Medicine [facility] [address] [place] [id number] Baron Vergara MD [address] [place] [address] Scheduled Procedures Name Priority Associated Diagnoses Date/Ti me COLONOSCOPY HISTORY OF COLON POLYPS 03/27/2024 8:30 AM STORES CLERK documented as of this encounter Visit Diagnoses Not on filedocumented in this encounter Additional Health Concerns Infection Onset Date Last Indicated Resolved Time COVID - 19 07/17/2023 07/17/2023 07/17/2023 4:28 PM CDT COVID - 19 08/13/2023 08/13/2023 08/13/2023 3:59 PM CDT COVID - 19 01/29/2024 01/29/2024 01/29/2024 10:1 1 AM STORES CLERK documented as of this encounter Care Teams Awning Hanger Relationship Specialty Start Date End Date Daja Kern MD [address] [place] [address] PCP - General Internal Medicine 03/13/15 Baron Vergara MD [address] [place] [address] Consulting Physician Pulmonary Disease 06/26/23 documented as of this encounter
--- OUTSIDE RECORDS SUMMARY | 2024-03-03 19:26 | XMS_ITS | Encounter Summary ---
Author Organization [facility] Address [address] [place] [address] Phone Care Team Providers Care School Nurse Name Role Phone Daja Kern MD Primary Care Provider [phone] Reason for Visit * Reason Comments Chest Pain Cough Encounter Details Date Type Department Care Team ([facility] st Contact Info) Description 05/30/2023 2:36 PM CDT - 05/30/2023 5:23 PM CDT Emergency [facility] Emergency [address] [place] [address] Jadiel Longoria MD [address] [place] [address] COPD (chronic obstructive pulmonary disease) ([facility]) Discharge Disposition: Discharged to home or Selfcare Social History Tobacco Use Types Packs/Day Years Used Date Smoking Tobacco: Never Smokeless Tobacco: Never Alcohol Use Standard Drinks/Week Comments No 0 (1 standard drink = 0.6 oz pur e alcohol) [facility] Utilities Answer Date Recorded In the past 12 months has [employer], gas, oil, or water company threatened [...] declined 05/22/2023 How often do you attend presybeterian or buddhism serv ices? Patient declined 05/22/2023 Do you belong to any clubs o r organizations such as presybeterian groups, unions, fraternal or athletic groups, or [...] 05/22/2023 [facility] Occupat ional Health - Occupational Stress Questionnaire [...] place to sleep or slept in a assisted (including now)? Patient declined 05/22/2023 Sexually Active [...] Sign Reading Time Taken Comments Blood Pressure 121/98 05/30/2023 3:30 PM CDT Pulse 91 05/30/2023 5:00 PM CDT Temperature 36.1 ??C (97 ??F) 05/30/2023 1:16 PM CDT Respiratory Rate 24 05/30/2023 1:16 PM CDT Oxygen Saturation 95% 05/30/2023 5:00 PM CDT Inhaled Oxygen Concentration - - Weight 120.2 kg (265 lb) 05/30/2023 1:16 PM CDT Height 165.1 cm (5' 5 ) 05/30/2023 1:16 PM CDT Body Mass Index 44.1 05/30/2023 1:16 PM CDT documented in this encounter Medications at Time of Discharge albuterol (PROVENTIL, VENTOLIN) (2.5 MG/3ML) 0.083% Nebulizer SolnIndications:A cute respiratory failure with hypoxia (HCC),Asthma exacerbation 3 mL by Nebulization route every 6 hours as needed for Wheezing. 360 mL 05/02/2023 ARIPiprazole extended release (Abilifbritta Maintena) 400 MG Prefilled Syringe 400 mg by Intramuscular route every 28 days. Around the 8th of every month benztropine (COGENTIN) 0.5 MG Tablet Take 0.5 mg by mouth nightly. DULoxetine (CYMBALTA) [address] Particles Take 90 mg by mouth daily. guaiFENesin (MUCINEX) 600 MG TABLET SR [...] Take 1 Capsule by mouth every morning. folic acid (FOLVITE) 1 MG Tablet Take 1 Tablet by mouth daily. 30 Tablet 01/06/2023 01/29/20 24 furosemide (LASIX) 20 MG Tablet Take 1 Tablet by mouth daily. 14 Tablet 01/07/2023 01/29/20 24 gabapentin (NEURONTIN) 600 MG Tablet Take 600 mg by mouth 3 times daily. 05/03/2023 06/02/19 24 hydrOXYzine (ATARAX) 50 MG Tablet Take [...] 1st line. 30 Tablet 01/05/2023 01/29/20 24 tiZANidine (ZANAFLEX) 4 MG Tablet Take 4 mg by mouth every 6 hours as needed for Muscle spasms. 05/08/2023 08/06/19 24 documented as of this encounter ED Notes * Pari Delgado RN - 05/30/2023 5:22 PM CDT Patient verbalized understanding of dc instructions. No further needs noted. * Sharri Rdz RN - 05/30/2023 5:[address] Longoria at bedside to discuss results and treatment plan with patient. * Sharri Rdz RN - 05/30/2023 4:05 PM CDT Patient requesting food. Patient given sandwich. * Jadiel Longoria MD - 05/30/2023 2:54 PM CDT Chief Complaint Patient presents with Chest Pain Cough Alona Kemp is a 52 y.o. female who presents to the emergency department complaining of not feeling well. Patient states she has had a cold for over a month. She said she has been admitted twice. She has been on 3 courses of antibiotics. She said she continues to have a cough productive of green sputum. She has had some [id number] headache and some diffuse myalgias. She feels like she hasnot better. She said her hospitalizations last 2 times or secondary to hypoxia. Currently patient is saturating 98% on room air. Patient was not appear to be in distress Past medical history: Illnesses: Morbid obesity cocaine use disorder, COPD, bipolar disease, hypertension, hypothyroidism, hyperlipidemia, GERD, diabetes Medications: See list Allergies: Geodon, Risperdal, Topamax, sulfa Surgeries: , cholecystectomy Social History: Tobacco: Nonsmoker Alcohol: Nondrinker Drugs: Denies to me but history of and recent urine positive for cocaine This chart was created using a voice recognition program. There maybe grammatical and/or syntax errors that are unintentional. No current facility-administered medications for this encounter. Current Outpatient Medications Medication Sig Dispense Refill albuterol (PROVENTIL, VENTOLIN) (2.5 MG/3ML) 0.083% Nebulizer Soln 3 mL by Nebulization route every6 hours as needed for Wheezing. 360 mL 0 ARIPiprazole extended release (Abilify Maintena) 400 MG [...] Tablet by mouth daily. 14 Tablet 0 gabapentin (NEURONTIN) 600 MG Tablet Take 600 mg by mouth 3 times daily. guaiFENesin [...] 24 HR Take 500 mg by mouth daily. metoprolol Succinate (TOPROL-XL) 25 MG TABLET SR 24 HR Take 25 mg by mouth daily. miconazole 2 % Powder Apply on the groin region. 71 g 0 omeprazole (PriLOSEC) 40 MG [...] Take 10 mg by mouth every evening. tiZANidine (ZANAFLEX) 4 MG Tablet Take 4 mg by mouth every 6 hours as needed for Muscle spasms. traZODone (DESYREL) 50 MG Tablet Take 100 [...] not use cpap SBO (small bowel obstruction) ([facility]) 09/2018 Vitamin D deficiency Past Surgical History: Procedure Laterality Date SECTION 1994 CHOLECYSTECTOMY [address] [facility] (Does not remember the ) COLONOSCOPY N/A 11/16/2018 Procedure: COLONOSCOPY - POLYPS, BIOPSIES; Surgeon: Damian Gallardo DO; Location: [facility]; Service: Gastroenterology EGD 2012? [facility] UPPER GASTROINTESTINAL ENDOSCOPY N/A 02/06/2019 Procedure: EGD, SMALL BOWEL BIOSY, GASTRIC POLYP, SAMANTHA TEST; Surgeon: Damian Gallardo DO; Location: [facility]; Service: Gastroenterology WISDOM TOOTH EXTRACTION [...] Session: Patient declined Stress: Patient Declined (05/22/2023) [place] [place] [employer] - Occupational Stress Questionnaire Feeling of Stress : Patient declined Social Integration: Patient Declined (05/22/2023) Social Connection and Isolation Panel [NHANES] Frequency of Communication with Friends and Family: Patient declined Frequency of Social Gatherings with Friends and Family: Patient declined Attends [employer] Services: Patient declined Active Member of Clubs [...] the Last Year: Patient declined BP (!) 121/98 Pulse 103 Temp 97 ??F (36.1 ??C) (Temporal) Resp 24 Ht 5' 5 (1.651 m) Wt 265 lb (120.2 kg) LMP 11/12/2019 SpO2 98% BMI 44.10 kg/m?? Review of Systems Constitutional: Positive for fatigue. Negative for activity change, appetite change, chills, diaphoresis and fever. HENT: Negative for dental problem, rhinorrhea and sore throat. Eyes: Negative for visual disturbance. Respiratory: Positive for cough. Negative for chest tightness, shortness of breath and wheezing. Cardiovascular: Negative for chest pain, palpitations and leg swelling. Gastrointestinal: Negative for abdominal pain, constipation, diarrhea, nausea and vomiting. Genitourinary: Negative for difficulty urinating, flank pain, hematuria and urgency. Musculoskeletal: Positive for myalgias. Negative for arthralgias, back pain, neck pain and neck stiffness. Skin: Negative for color change and rash. Allergic/Immunologic: Negative for food allergies. Neurological: Positive for headaches. Negative for dizziness, syncope, weakness, light-headedness and numbness. Psychiatric/Behavioral: Negative for self-injury, sleep disturbance and suicidal ideas. All other systems reviewed and are negative. Physical Exam Vitals and nursing note reviewed. Constitutional: General: She is not in acute distress. Appearance: She is well-developed. She is obese. She is not diaphoretic. HENT: Head: Normocephalic and atraumatic. Right Ear: External ear normal. Left Ear: External ear normal. Nose: Nose normal. Mouth/Throat: Mouth: Mucous membranes are moist. Pharynx: No oropharyngeal exudate. Eyes: General: Right eye: No discharge. Left eye: No discharge. Conjunctiva/sclera: Conjunctivae normal. Pupils: Pupils are equal, round, and reactive to light. Neck: Thyroid: No thyromegaly. Vascular: No JVD. Trachea: No tracheal deviation. Cardiovascular: Rate and Rhythm: Normal rate and regular rhythm. Pulses: Carotid pulses are 1+ on the right side and 1+ on the left side. Radial pulses are 1+ on the right side and 1+ on the left side. Dorsalis pedis pulses are 1+ on the right side and 1+ on the left side. Posterior tibial pulses are 1+ on the right side and 1+ on the left side. Heart sounds: Normal heart sounds. No murmur heard. Pulmonary: Effort: Pulmonary effort is normal. No respiratory distress. Breath sounds: Normal breath sounds. No decreased breath sounds, wheezing, rhonchi or rales. Chest: Chest wall: No tenderness. Abdominal: General: Bowel sounds are normal. There is no distension. Palpations: Abdomen is soft. There is no mass. Tenderness: There is no abdominal tenderness. There is no guarding or rebound. Musculoskeletal: General: No tenderness. Normal range of motion. Cervical back: Normal range of motion and neck supple. Right lower leg: No edema. Left lower leg: No edema. Lymphadenopathy: Cervical: No cervical adenopathy. Skin: General: Skin is warm and dry. Capillary Refill: Capillary refill takes less than 2 seconds. Coloration: Skin is not pale. Findings: No erythema or rash. Neurological: General: No focal deficit present. Mental Status: She is alert and oriented to person, place, and time. Cranial Nerves: No cranial nerve deficit. Motor: No abnormal muscle tone. Coordination: Coordination normal. Deep Tendon Reflexes: Reflexes are normal and symmetric. Psychiatric: Mood and Affect: Mood normal. Behavior: Behavior normal. Thought Content: Thought content normal. Procedures Recent Results (from the past 24 hour(s)) RSV,SARS-COV-2,INFLUENZA A&B BY PCR Specimen: Nasopharyngeal; Swab Result Value Ref Range FLU A Negative Negative, Error FLU B Negative Negative RESP SYNC VIRUS Negative Negative SARSCOV2 NOT DETECTED (Reference Range for this test is Not Detected) CMP (Comprehensive Metabolic Panel) Result Value Ref Range SODIUM 138 136 - 145 mmol/L POTASSIUM 4.4 3.5 - 5.1 mmol/L CHLORIDE 103 98 - 107 mmol/L CO2, VENOUS 26 22 - 30 mmol/L ANION GAP 13.4 <18.0 mmol/L GLUCOSE 116 (H) 70 - 99 mg/dL BUN 16 10 - 20 mg/dL CREATININE, BLOOD 0.72 0.60 - 1.00 mg/dL BUN/CREATININE RATIO 22 (H) 12 - 20 ratio TOTAL PROTEIN 7.5 6.3 - 8.2 g/dL ALBUMIN 3.8 3.5 - 5.0 g/dL A/G RATIO 1.0 1.0 - 2.2 CALCIUM 9.6 8.7 - 10.5 mg/dL T BILI 0.7 0.2 - 1.2 mg/dL SGOT (AST) 22 5 - 34 U/L SGPT (ALT) 26 0 - 55 U/L ALKALINE PHOSPHATASE 73 40 - 150 U/L GFR, ESTIMATED >60 >=60 GFR, EST. >60 >=60 GFR, EST. NONAFRICAN >60 >=60 TROPONIN I, HIGH SENSITIVITY (HSTRP) Result Value Ref Range TROPONIN I, HIGH SENSITIVITY- TREVINO 3 <=14 ng/L CBC with Auto Differential Result Value Ref Range WBC 6.81 4.00 - 12.00 10(3)/mcL RBC 4.90 3.80 - 5.30 10(6)/mcL HEMOGLOBIN (HGB) 14.7 12.0 - 15.8 g/dL HEMATOCRIT (HCT) 44.7 36.0 - 47.0 % MCV 91.2 82.0 - 96.0 fL MCH 30.0 26.0 - 34.0 pg MCHC 32.9 31.0 - 36.0 g/dL PLATELET COUNT 313 140 - 440 10(3)/mcL RDW 13.2 11.8 - 15.5 % MPV 10.8 9.7 - 12.4 fL NEUTROPHILS 56.9 47.0 - 73.0 % LYMPHOCYTES 31.0 18.0 - 42.0 % MONOCYTES 5.9 4.0 - 12.0 % EOSINOPHILS 5.6 (H) 0.0 - 5.0 % BASOPHILS 0.6 0.0 - 1.0 % ABSOLUTE NEUTROPHILS 3.88 1.60 - 7.70 10(3)/mcL ABSOLUTE LYMPHOCYTES 2.11 1.30 - 3.20 10(3)/mcL ABSOLUTE MONOCYTES 0.40 0.20 - 1.00 10(3)/mcL ABSOLUTE EOSINOPHIL 0.38 0.00 - 0.40 10(3)/mcL ABSOLUTE BASOPHILS 0.04 0.00 - 0.10 10(3)/mcL NRBC PER 100 WBC 0 Urinalysis w/ Reflex Result Value Ref Range SPECIFIC GRAVITY 1.005 1.003 - 1.030 URINE PH 7.0 5.0 - 9.0 WBC ESTERASE 25 /ul (A) Negative NITRITE Negative Negative PROTEIN, RANDOM URINE 30 mg/dL (A) Negative URINE GLUCOSE, QUAL Negative Negative URINE KETONES Negative Negative UROBILINOGEN Normal Normal mg/dL URINE BLOOD Negative Negative dylan/ul URINALYSIS COLOR Yellow URINALYSIS CLARITY Clear WBC (Urine) 0-5 Negative, 0-5 /hpf URINE RBC'S Negative Negative, 0-2 /hpf EPITHELIAL CELLS Small amount /lpf BACTERIA, URINE Few (A) Negative /hpf Urine Drug Screen Result Value Ref Range UR AMPHETAMINE NON DETECTED NON DETECTED UR BENZODIAZEPINES NON DETECTED NON DETECTED UR COCAINE METABOLITE NON DETECTED NON DETECTED UR OPIATES DETECTED (A) NON DETECTED UR PHENCYCLIDINE NON DETECTED NON DETECTED UR CANNABINOID NON DETECTED NON DETECTED UR BARBITURATE NON DETECTED NON DETECTED Imaging Results XR CHEST 2 VIEWS (Final result) Result time 05/30/23 14:17:11 Final result by Faraz Owens MD (05/30/23 14:17:11) Impression: IMPRESSION: No radiographic evidence of acute cardiopulmonary disease. Narrative: EXAM DESCRIPTION: XR CHEST 2 VIEWS REASON FOR STUDY: pt is having productive cough with chest pain, body aches, fatigue, and headaches x 1 month. hx of COPD and HTN. TECHNIQUE: 2 radiographic view(s) of the chest. COMPARISON: Chest radiograph 05/21/2023 FINDINGS: The cardiomediastinal silhouette appears normal. There is no airspace consolidation or pleural effusion. THIS IS AN ELECTRONICALLY VERIFIED FINAL REPORT 05/30/2023 2:14 PM - Electronically signed by Faraz Owens M.D. JR: Report ID: [id number] Reading Location: [place] [address] Medical Decision Making EKG visualized and interpreted by me. Time is 1:11 p.m.. Normal sinus rhythm with sinus arrhythmia.Rate is 89. [place] is normal. Intervals are normal. LVH by voltage criteria. QRS complexes are unremarkable. ST segments are normal. T- waves are normal. There is no acute injury pattern. Compared to EKG dated 05/21/2023, no significant morphologic changes. Chest x-ray visualized and interpreted by me. No acute disease Impression: Patient presents with just not feeling well. Apparently admitted twice since did 3 courses of antibiotics in the last 4-6 weeks for COPD exacerbations. She was hypoxic at those times. Today it was concerning for COPD exacerbation, pneumonia. Notably, further history obtained outside records from to previous hospital stays were reviewed. Patient's history of COPD, history of cocaine use, bipolar disease and morbid obesity has impacted care and subsequent medical decision making. In the workup of these potential diagnoses I considered but did not pursue PE ACS due to signs and symptoms on exam and initial findings not consistent with these disease processes. Tests were independently reviewed and interpreted and imaging independently visualized and interpreted. This is notable for negative workup including chest x-ray. Patient was also saturating 98-100% on room air. Interventions and treatments in the ER DuoNeb I considered escalation of care including observation versus admission but not warranted due to stability of condition Plan for discharge to home. Discussed the case with patient. I will prescribe no new medicines. Reasons to return to the emergency room were discussed. Clinical Impression 1. COPD (chronic obstructive pulmonary disease) ([facility]) Disposition: Discharge The patient remained stable throughout their ED stay. My clinical impression was discussed with thepatient/caregiver. Any labs and radiology results were reviewed. Questions were addressed as completely as possible given the information available at present. The therapeutic plan was discussed, inst ructions were given and the importance of primary care follow up was stressed and encouraged. The patient/caregiver voiced understanding of the plan, indications to return, and the need for follow up. Reasons to return to the E.D. were discussed. New Medications: New Prescriptions No medications on file I have advised the patient to follow-up with: Daja Kern MD [address] [facility] [address] In 1 week As needed Dispostion: Discharge * Amber Lai RN - 05/30/2023 1:18 PM CDT Chest pain that comes with coughing. Pt describes productive cough with green sputum. She reports body aches, headaches, and feeling tired . documented in this encounter Miscellaneous Notes * PatientPass Patient Instructions - Jadiel Longoria MD - 05/30/2023 5:02 PM CDT Images from the original note were not included. Patient Education Table of Contents Chronic Obstructive Pulmonary Disease Exacerbation To view videos and all your education online visit, [email or web address] or scan this QR code with your smartphone. Access to this content will in one year. Chronic Obstructive Pulmonary Disease Exacerbation Chronic obstructive pulmonary disease (COPD) is a long-term (chronic) lung problem. In COPD, the flow of air from the lungs is limited. COPD exacerbations are times that breathing gets worse and you need more than your normal treatment. Without treatment, they can be life-threatening. If they happen often, your lungs can become more damaged. What are the causes? Having infections that affect your airways and lungs. Being exposed to: ? Smoke. ? Air pollution. ? Chemical fumes. ? Dust. ? Things that can cause an allergic reaction (allergens). Not taking your usual COPD medicines as told. Having medical problems already, such as heart failure or infections not involving the lungs. In many cases, the cause is not known. What increases the risk? Smoking. Being an older adult. Having frequent prior COPD exacerbations. What are the signs or symptoms? Increased coughing. Increased mucus from your lungs. Increased wheezing. Increased shortness of breath. Fast breathing and finding it hard to breathe. Chest tightness. Less energy than usual. Sleep disruption from symptoms. Confusion. Increased sleepiness. Often, these symptoms happen or get worse even with the use of medicines. How is this treated? Treatment for this condition depends on how bad it is and the cause of the symptoms. You may need to stay in the hospital for treatment. Treatment may include: Taking medicines. Using oxygen. Being treated with different ways to clear your airway, such as using a mask to deliver oxygen. Follow these instructions at home: Medicines Take dyqy-god-obmxhpb and prescription medicines only as told by your doctor. Use all inhaled medicines the correct way. If you were prescribed an antibiotic or steroid medicine, take it as told by your doctor. Do not stop taking it even if you start to feel better. Lifestyle Do not smoke or use any products that contain nicotine or tobacco. If you need help quitting, ask your doctor. Eat healthy foods. Exercise regularly. Get enough sleep. Most adults need 7 or more hours per night. Avoid tobacco smoke and other things that can bother your lungs. Several times a day, wash your hands with soap and water for at least 20 seconds. If you cannot usesoap and water, use hand websphere commerce architect. This may help keep you from getting an infection. During flu season, avoid areas that are crowded with people. General instructions Drink enough fluid to keep your pee (urine) pale yellow. Do not do this if your doctor has told younot to. Use a cool mist machine (vaporizer). If you use oxygen or a machine that turns medicine into a mist (nebulizer), continue to use it as told. Keep all follow-up visits. How is this prevented? Keep up with shots (vaccinations) as told by your doctor. Be sure to get a yearly flu (influenza) shot. If you smoke, quit smoking. Smoking makes the problem worse. Follow all instructions for rehabilitation. These are steps you can take to make your body work better. Work with your doctor to develop and follow an action plan. This tells you what steps to take when you experience certain symptoms. Contact a doctor if: Your COPD symptoms get worse than normal. Get help right away if: You are short of breath and it gets worse, even when you are resting. You have trouble talking. You have chest pain. You cough up blood. You have a fever. You keep vomiting. You feel weak or you pass out (faint). You feel confused. You are not able to sleep because of your symptoms. You have trouble doing daily activities. These symptoms may be an emergency. Get help right away. Call your local emergency services (911 int [place] Do not wait to see if the symptoms will go away. Do not drive yourself to the hospital. Summary COPD exacerbations are times that breathing gets worse and you need more treatment than normal. COPD exacerbations can be very serious and may cause your lungs to become more damaged. Do not smoke. If you need help quitting, ask your doctor. Stay up to date on your shots. Get a flu shot every year. This information is not intended to replace advice given to you by your health care provider. Make sure you discuss any questions you have with your health care provider. Document Released: 2012-02-02 Document Updated: 2021-01-06 Document Reviewed: 2020-12-22 [employer] Patient Education ? 2023 [employer] documented in this encounter Plan of Treatment Upcoming Encounters Date Type Department Care Team (Late st Contact Info) Description 03/27/2024 8:30 AM [facility] Periop [address] [place] [address] Burt Eastman MD [address] [address] 03/27/2024 8:30 AM INTER[employer] E [employer]ER[employer] SPECIALIST - 03/27/2024 9:00 AM INTER[employer] E [employer] SPECIALIST [facility] Periop [address] [place] [address] Burt Eastman MD [address] [address] COLONOSCOPY 04/09/2024 1:15 PM INTER[employer] E [employer]ERCE SPECIALIST Office Visit [facility] - Pulmonology & Sleep Medicine [facility] [address] [place] [address] Baron Vergara MD [address] [place] [address] Scheduled Procedures Name Priority Associated Diagnoses Date/Ti me COLONOSCOPY HISTORY OF COLON POLYPS 03/27/2024 8:30 AM INTER[employer] E [employer]ER[employer] SPECIALIST documented as of this encounter Procedures Procedure Name Priority Date/Time Associated Diagnosis Comments URINALYSIS REFLEX IF INDICATED BY ABNORMAL RESULTS STAT 05/30/2023 3:23 PM CDT URINE DRUG SCREEN STAT 05/30/2023 3:2 3 PM CDT XR CHEST 2 VIEWS STAT 05/30/2023 1:51 PM CDT TROPONIN I, HIGH SENSITIVITY (HSTRP) STAT 05/30/2023 1:44 PM CDT CBC WITH AUTO DIFFERENTIAL STAT 05/30/2023 1:44 PM CDT CMP (COMPREHENSIVE METABOLIC PANEL) STAT 05/30/2023 1:44 PM CDT COMPLETE BLOOD COUNT (CBC) WITH DIFF STAT 05/30/2023 1:44 PM CDT RSV,SARS-COV-2,INFLUE NZA A&B BY PCR STAT 05/30/2023 1:21 PM CDT EKG 12 LEAD STAT 05/30/2023 1:11 PM CDT documented in this encounter Results * (ABNORMAL) Urine Drug Screen (05/30/2023 3:23 PM CDT) UR AMPHETAMINE NON DETECTED NON DETECTED 05/30/2023 4:39 PM CDT [facility] Comment: FOR MEDICAL USE ONLY. CUTOFF CONCENTRATION FOR DETECTED RESULT: AMPHETAMINE: ??500 NG/ML UR BENZODIAZEPINES NON DETECTED NON DETECTED 05/30/2023 4:39 PM CDT [facility] Comment: FOR MEDICAL USE ONLY. CUTOFF CONCENTRATION FOR DETECTED RESULT: BENZODIAZAPINE: ??200 NG/ML UR COCAINE METABOLITE NON DETECTED NON DETECTED 05/30/2023 4:39 PM CDT [facility] Comment: FOR MEDICAL USE ONLY. CUTOFF CONCENTRATION FOR DETECTED RESULT: COCAINE: ??150 NG/ML UR OPIATES DETECTED(A) NON DETECTED 05/30/2023 4:39 PM CDT [facility] Comment: FOR MEDICAL USE ONLY. CUTOFF CONCENTRATION FOR DETECTED RESULT: OPIATES: ? 300 NG/ML UR PHENCYCLIDINE NON DETECTED NON DETECTED 05/30/2023 4:39 PM CDT [facility] Comment: FOR MEDICAL USE ONLY. CUTOFF CONCENTRATION FOR DETECTED RESULT: PCP: ? 25 NG/ML UR CANNABINOID NON DETECTED NON DETECTED 05/30/2023 4:39 PM CDT [facility] Comment: FOR MEDICAL USE ONLY. CUTOFF CONCENTRATION FOR DETECTED RESULT: THC (MARIJUANA): 50 NG/ML UR BARBITURATE NON DETECTED NON DETECTED 05/30/2023 4:39 PM CDT [facility] Comment: FOR MEDICAL USE ONLY. CUTOFF CONCENTRATION FOR DETECTED RESULT: BARBITUATES: ? 200 NG/ML Urine Non-Phlebotomy Collection / Unknown 05/30/2023 3:23 PM CDT 05/30/2023 3:48 PM CDT us Jadiel Longoria MD URINE ORDERABLES Final Result [facility] [address] [place] [address] * (ABNORMAL) Urinalysis w/ Reflex (05/30/2023 3:23 PM CDT) SPECIFIC GRAVITY 1.005 1.003 - 1.030 05/30/2023 4:53 PM CDT [facility] URINE PH 7.0 5.0 - 9.0 05/30/2023 4:53 PM CDT [facility] WBC ESTERASE 25 /ul(A) Negative 05/30/2023 4:53 PM CDT [facility] NITRITE Negative Negative 05/30/2023 4:53 PM CDT [facility] PROTEIN, RANDOM URINE 30 mg/dL(A) Negative 05/30/2023 4:53 PM CDT [facility] URINE GLUCOSE, QUAL Negative Negative 05/30/2023 4:53 PM CDT [facility] URINE KETONES Negative Negative 05/30/2023 4:53 PM CDT [facility] UROBILINOGEN Normal Normal mg/dL 05/30/2023 4:53 PM CDT [facility] URINE BLOOD Negative Negative dylan/ul 05/30/2023 4:53 PM CDT [facility] URINALYSIS COLOR Yellow 05/30/19 4:53 PM CDT [facility] URINALYSIS CLARITY Clear 05/30/2023 4:53 PM CDT [facility] WBC (Urine) 0-5 Negative, 0-5 /hpf 05/30/2023 4:53 PM CDT [facility] URINE RBC'S Negative Negative, 0-2 /hpf 05/30/2023 4:53 PM CDT [facility] EPITHELIAL CELLS Small amount /lpf 2023 4:53 PM CDT [facility] BACTERIA, URINE Few(A) Negative /hpf 05/30/2023 4:53 PM CDT [facility] Urine URINE SPECIMEN / Unknown Non-Phlebotomy Collection / Unknown 05/30/2023 3:23 PM CDT 05/30/2023 3:48 PM CDT Jadiel Longoria MD URINE ORDERABLES Final Result [facility] [address] [place] [address] * XR CHEST 2 VIEWS (05/30/2023 1:51 PM CDT) Anatomical Region Laterality Modality Chest N/A Digital Radiogra phy 05/30/2023 2:14 PM CDT Impressions 05/30/2023 2:17 PM CDT IMPRESSION: No radiographic evidence of acute cardiopulmonary disease. Narrative 05/30/2023 2:17 PM CDT EXAM DESCRIPTION: XR CHEST 2 VIEWS REASON FOR STUDY: pt is having productive cough with chest pain, body aches, fatigue, and headaches x 1 month. hx of COPD and HTN. ?? TECHNIQUE: 2 ??radiographic view(s) of the chest. COMPARISON: Chest radiograph 05/21/2023 FINDINGS: The cardiomediastinal silhouette appears normal. ?? There is no airspace consolidation or pleural effusion. ? THIS IS AN ELECTRONICALLY VERIFIED FINAL REPORT 05/30/2023 2:14 PM - Electronically signed by ??Faraz Owens M.D. JR: D: ??05/30/2023 2:14 PM T: ??05/30/2023 2:14 PM Report ID: [id number] Reading Location: ??[id number] Procedure Note Faraz Owens MD - 05/30/2023 EXAM DESCRIPTION: XR CHEST 2 VIEWS REASON FOR STUDY: pt is having productive cough with chest pain, body aches, fatigue, and headaches x 1 month. hx of COPD and HTN. TECHNIQUE: 2 radiographic view(s) of the chest. COMPARISON: Chest radiograph 05/21/2023 FINDINGS: The cardiomediastinal silhouette appears normal. There is no airspace consolidation or pleural effusion. THIS IS AN ELECTRONICALLY VERIFIED FINAL REPORT 05/30/2023 2:14 PM - Electronically signed by Faraz Owens M.D. JR: Report ID: [id number] Reading Location: [place] [address] IMPRESSION: No radiographic evidence of acute cardiopulmonary disease. Dhara Smith APRN, HEAD STILL OPERATOR IMG DIAGNOSTIC ORDERA BLES Final Result * (ABNORMAL) CBC with Auto Differential (05/30/2023 1:44 PM CDT) WBC 6.81 4.00 - 12.00 10(3)/mcL 05/30/2023 2:05 PM CDT [facility] RBC 4.90 3.80 - 5.30 10(6)/mcL 05/30/2023 2:05 PM CDT [facility] HEMOGLOBIN (HGB) 14.7 12.0 - 15.8 g/dL 05/30/2023 2:05 PM CDT [facility] HEMATOCRIT (HCT) 44.7 36.0 - 47.0 % 05/30/2023 2:05 PM CDT [facility] MCV 91.2 82.0 - 96.0 fL 05/30/2023 2:05 PM CDT [facility] MCH 30.0 26.0 - 34.0 pg 05/30/2023 2:05 PM CDT [facility] MCHC 32.9 31.0 - 36.0 g/dL 05/30/2023 2:05 PM CDT [facility] PLATELET COUNT 313 140 - 440 10(3)/mcL 05/30/2023 2:05 PM CDT [facility] RDW 13.2 11.8 - 15.5 % 05/30/2023 2:05 PM CDT [facility] MPV 10.8 9.7 - 12.4 fL 05/30/2023 2:05 PM CDT [facility] NEUTROPHILS 56.9 47.0 - 73.0 % 05/30/2023 2:05 PM CDT [facility] LYMPHOCYTES 31.0 18.0 - 42.0 % 05/30/2023 2:05 PM CDT [facility] MONOCYTES 5.9 4.0 - 12.0 % 05/30/2023 2:05 PM CDT [facility] EOSINOPHILS 5.6(H) 0.0 - 5.0 % 05/30/2023 2:05 PM CDT [facility] BASOPHILS 0.6 0.0 - 1.0 % 05/30/2023 2:05 PM CDT [facility] ABSOLUTE NEUTROPHILS 3.88 1.60 - 7.70 10(3)/[facility] 05/30/2023 2:05 PM CDT [facility] ABSOLUTE LYMPHOCYTES 2.11 1.30 - 3.20 10(3)/[facility] 05/30/2023 2:05 PM CDT [facility] ABSOLUTE MONOCYTES 0.40 0.20 - 1.00 10(3)/[facility] 05/30/2023 2:05 PM CDT [facility] ABSOLUTE EOSINOPHIL 0.38 0.00 - 0.40 10(3)/[facility] 05/30/2023 2:05 PM CDT [facility] ABSOLUTE BASOPHILS 0.04 0.00 - 0.10 10(3)/[facility] 05/30/2023 2:05 PM CDT [facility] NRBC PER 100 WBC 0 05/30/19 2:05 PM CDT [facility] Blood Venipuncture / Unknown 05/30/2023 1:44 PM CDT 05/30/2023 1:56 PM CDT us Dhara Smith AD OPERATIONS SPECIALIST, HEAD STILL OPERATOR HEMATOLOGY ORDERABLES Final Result [facility] [address] [place] [address] * TROPONIN I, HIGH SENSITIVITY (HSTRP) (05/30/2023 1:44 PM CDT) [facility] TROPONIN I, HIGH SENSITIVITY- [place] 3 <=14 ng/L 05/30/2023 2:27 PM CDT [facility] Comment: High-sensitivity troponin I results are reported in ng/L making the result appear to be 1,000 times higher than the contemporary troponin I value which is reported in ng/ml. Results from [place]. Blood Venipuncture / Unknown 05/30/2023 1:44 PM CDT 05/30/2023 1:56 PM CDT Dhara Smith AD OPERATIONS SPECIALIST, HEAD STILL OPERATOR CHEMISTRY ORDERABLES Final Result Performing Organization Address City/[facility]/ZIP Co de Phone Number [facility] [address] [place] [address] * (ABNORMAL) CMP (Comprehensive Metabolic Panel) (05/30/2023 1:44 PM CDT) [facility] SODIUM 138 136 - 145 mmol/L 05/30/2023 2:25 PM CDT [facility] POTASSIUM 4.4 3.5 - 5.1 mmol/L 05/30/2023 2:25 PM CDT [facility] CHLORIDE 103 98 - 107 mmol/L 05/30/2023 2:25 PM CDT [facility] CO2, VENOUS 26 22 - 30 mmol/L 05/30/2023 2:25 PM CDT [facility] ANION GAP 13.4 <18.0 mmol/L 05/30/2023 2:25 PM CDT [facility] GLUCOSE 116(H) 70 - 99 mg/dL 05/30/2023 2:25 PM CDT [facility] BUN 16 10 - 20 mg/dL 05/30/2023 2:25 PM CDT [facility] CREATININE, BLOOD 0.72 0.60 - 1.00 mg/dL 05/30/2023 2:25 PM CDT [facility] BUN/CREATININE RATIO 22(H) 12 - 20 ratio 05/30/2023 2:25 PM CDT [facility] TOTAL PROTEIN 7.5 6.3 - 8.2 g/dL 05/30/2023 2:25 PM CDT [facility] ALBUMIN 3.8 3.5 - 5.0 g/dL 05/30/2023 2:25 PM CDT [facility] A/G RATIO 1.0 1.0 - 2.2 05/30/2023 2:25 PM CDT [facility] CALCIUM 9.6 8.7 - 10.5 mg/dL 05/30/2023 2:25 PM CDT [facility] T BILI 0.7 0.2 - 1.2 mg/dL 05/30/2023 2:25 PM CDT [facility] SGOT (AST) 22 5 - 34 U/L 05/30/2023 2:25 PM CDT [facility] Comment: Specimen is hemolyzed. In vitro hemolysis could affect results. Clinical correlation advised. SGPT (ALT) 26 0 - 55 U/L 05/30/2023 2:25 PM CDT [facility] ALKALINE PHOSPHATASE 73 40 - 150 U/L 05/30/2023 2:25 PM CDT [facility] GFR, ESTIMATED >60 >=60 05/30/2023 2:25 PM CDT [facility] Comment: Creatinine Clearance is the preferred criteria for selecting drug dose adjustments in renally impaired patients. ??The GFR is provided as additional pertinent clinical information. GFR is reported in mL/min/1.73 sq m. Calculation based on the Chronic Kidney Disease Epidemiology Collaboration (CKD- EPI) equation refit without adjustment for race. GFR, EST. >60 >=60 024 2:25 PM CDT [facility] GFR, EST. NONAFRICAN >60 >=60 05/30/2023 2:25 PM CDT [facility] Blood Venipuncture / Unknown 05/30/2023 1:44 PM CDT 05/30/2023 1:56 PM CDT us Dhara Smith APRN, HEAD STILL OPERATOR CHEMISTRY ORDERABLES Final Result Performing Organization Address City/[facility]/ZIP Co de Phone Number [facility] [address] [place] [address] * RSV,SARS-COV-2,INFLUENZA A&B BY PCR (05/30/2023 1:21 PM CDT) FLU A Negative Negative, Error 05/30/2023 2:08 PM CDT [facility] FLU B Negative Negative 05/30/2023 2:08 PM CDT [facility] RESP SYNC VIRUS Negative Negative 2:08 PM CDT [facility] SARSCOV2 NOT DETECTED (Reference Range for this test is Not Detected) 05/30/2023 2:08 PM CDT [facility] Comment:This test was perfor med by a Reverse City Recorder PCR Method. Swab NASOPHARYNGEAL SWAB / Unknown Non-Phlebotomy Collection / Unknown 05/30/2023 1:21 PM CDT 05/30/2023 1:29 PM CDT Narrative [facility] - 05/30/2023 2:08 PM CDT This test has not been FDA cleared or approved; the test has been authorized by FDA under an Emergency Use Authorization (EUA) for use by laboratories certified under the CLIA that meet the requirements to perform moderate, high or waived complexity tests. Authorized Fact Sheets about this test for providers and patients are available at: https://www.fda.gov/medical-devices/vhpfzzfxp-twpdlspmsl-kzhomda-devices/emergen cy-us e-authorizations us Dhara Smith APRN, HEAD STILL OPERATOR MICROBIOLOGY - GENERA L ORDERABLES Final Result [facility] [address] [place] [address] * EKG 12 LEAD (05/30/2023 1:11 PM CDT) Ventricular Rate 89 BPM EXTERNAL EKG Atrial Rate 89 BPM EXTERNAL EKG P-R Interval 136 ms EXTERNAL EKG QRS Duration 84 ms EXTERNAL EKG Q-T Duration 360 ms EXTERNAL EKG QTC CALCULATION 438 ms EXTERNAL EKG P [place] 15 degrees EXTERNAL EKG R [place] -15 degrees EXTERNAL EKG T [place] 41 degrees EXTERNAL EKG 05/30/2023 1:11 PM CDT Impressions EXTERNAL EKG - 05/30/2023 10:01 PM CDT Normal sinus rhythm with sinus arrhythmia Moderate voltage criteria for LVH, may be normal variant ( R in aVL , [place] product ) Borderline ECG When compared with ECG of 21-MAY-2023 21:22, No significant change was found Confirmed by Antonio Kim ([id number]) on 05/30/2023 10:01:43 PM Narrative Procedure Note Antonio Kim MD PhD - 05/30/2023 IMPRESSION: Normal sinus rhythm with sinus arrhythmia Moderate voltage criteria for LVH, may be normal variant ( R in aVL ,[place] product ) Borderline ECG When compared with ECG of 21-MAY-2023 21:22, No significant change was found Confirmed by Antonio Kim ([id number]) on 05/30/2023 10:01:43 PM Dhara Smith AD OPERATIONS SPECIALIST, HEAD STILL OPERATOR IMG ECG ORDERABLES [facility] Result EXTERNAL EKG documented in this encounter Visit Diagnoses Diagnosis COPD (chronic obstructive pulmonary disease) (HCC)- Primary Chronic airway obstruction, not elsewhere classified documented in this encounter Administered Medications Inactive Administered Medications - up to 3 most recent administrations Medication Order MAR Action Action Date Dose Rate Site acetaminophen (TYLENOL) tablet 650 mg 650 mg, Oral, ONCE, 1 dose, On Mon05/30/23 at 1730, Maximum dose of acetaminophen is 4000 mg from all sources in 24 hours. documented in this encounter Active and Recently Administered Medications Times are shown in CDT. Scheduled Medication Order 05/28/2023 05/29/2023 05/30/2023 acetaminophen (TYLENOL) tablet 650 mg 650 mg, Oral, ONCE, 1 dose, On Mon05/30/23 at 1730, Maximum dose of acetaminophen is 4000 mg from all sources in 24 hours. 1730 (Not Given - Pr ovider: Pari Delgado RN - Reason: Order parameters not met) documented in this encounter Care Teams School Nurse Relationship Specialty Start Date End Date Daja Kern MD [address] [place] [address] PCP - General Internal Medicine 03/13/15 documented as of this encounter
--- OUTSIDE RECORDS SUMMARY | 2024-03-03 19:26 | XMS_ITS | Encounter Summary ---
Author Organization [facility] Care Team Providers Care Radio Electronics Technician Name Role Phone Daja Kern MD Primary Care Provider [phone] Baron Vergara MD Unavailable Encounter Details Date Type Department Care Team (Latest Contact Info) Description 07/06/2023 Travel Social History Tobacco Use Types Packs/Day Years Used Date Smoking Tobacco: Never Smokeless Tobacco: Never Alcohol Use Standard Drinks/Week Comments No 0 (1 standard drink = 0.6 oz pur e alcohol) [facility] Utilities Answer Date Recorded In the past 12 months has [employer] electric, gas, oil, or water company threatened [...] How often do you attend worship or mormonism serv ices? Patient declined 05/22/2023 Do you [...] medical care, and heating? [facility] Questionnaire Answer [...] place to sleep or slept in a care home (including now)? Patient declined 05/22/2023 Sexually [...] st Contact Info) Description 03/27/2024 8:30 AM LOSS PREVENTION ANALYST [facility] [address] [place] [address] Burt Eastman MD [address] [address] 03/27/2024 8:30 AM LOSS PREVENTION ANALYST - 03/27/2024 9:00 AM LOSS PREVENTION ANALYST [facility] [address] [place] [address] Burt Eastman MD [address] [address] COLONOSCOPY 04/09/2024 1:15 PM LOSS PREVENTION ANALYST Office Visit [facility] - Pulmonology & Sleep Medicine [facility] [address] [place] [address] Baron Vergara MD [address] [place] [address] Scheduled Procedures Name Priority Associated Diagnoses Date/Ti me COLONOSCOPY HISTORY OF COLON POLYPS 03/27/2024 8:30 AM LOSS PREVENTION ANALYST documented as of this encounter Visit Diagnoses Not on filedocumented in this encounter Care Teams Radio Electronics Technician Relationship Specialty Start Date End Date Daja Kern MD [address] [place] [address] PCP - General Internal Medicine 03/13/15 Baron Vergara MD [address] [place] [id number] Consulting Physician Pulmonary Disease 06/26/23 documented as of this encounter
--- OUTSIDE RECORDS SUMMARY | 2024-03-03 19:26 | XMS_ITS | Encounter Summary ---
Author Organization [facility] Address [address] [place] [address] Phone Care Team Providers Care Histological Illustrator Name Role Phone Daja Kern MD Primary Care Provider [phone] Baron Vergara MD Unavailable Reason for Visit * Consult, Test & Initiate Treatment (Routine) - Closed Specialty Diagnoses / Procedures Referred By Ladi aguilar Referred To Contact Sleep Center Diagnoses KWABENA (obstructive sleep apnea) Baron Vergara MD [address] [place] [address] Phone: tel: fax: [facility] [address] [place] [address] Phone: tel: fax: Referral ID Status Reason Start Date Expiration Date Visits Re quested Visits Authorized [id number] Closed 06/26/2023 1 1 Encounter Details Date Type Department Care Team (Late st Contact Info) Description 07/25/2023 7:30 PM CDT Sleep Lab [facility] [address] [place] [address] Baron Vergara MD [address] [place] [address] KWABENA (obstructive sleep apnea); Obstructive sleep apnea (adult) (pediatric) Discharge Disposition: Discharged to home or Selfcare Social History Tobacco Use Types Packs/Day Years Used Date Smoking Tobacco: Never Smokeless Tobacco: Never Alcohol Use Standard Drinks/Week Comments No 0 (1 standard drink = 0.6 oz pur e alcohol) [facility] Utilities Answer Date Recorded In the [...] declined 05/22/2023 How often do you attend zoroastrian or anabaptism serv ices? Patient declined 05/22/2023 Do you belong to any clubs o r organizations such as zoroastrian groups, unions, fraternal or athletic groups, or [...] medical care, and heating? Patient declined 05/22/2023 [facility] of Occupat ional Health - Occupational Stress [...] place to sleep or slept in a senior living (including now)? Patient declined 05/22/2023 Sexually Active Control Partners Comments Yes None Male Comments No Sex and Gender Information Value Date Recorded Sex Assigned at Female 06/02/2023 1:39 AM CDT Legal Sex Female 11:06 PM CDT Gender Identity Female 06/02/2023 1:39 AM CDT Sexual Orientation Straight 06/02/2023 1: 39 AM CDT documented as of this encounter Procedure Notes * Baron Vergara MD - 07/25/2023 7:30 PM CDT Evaluation Report Alona Kemp 07/25/2023 Ms. Alona Kemp, a 52 year old female (1970), was seen at the [facility] for a sleep apnea evaluation. She has a history significant for obstructive sleep apnea with CPAP use but needs new equipment. [facility] Scale is 10. Her current height is 62 inches and weight is 280 lbs, resulting in a BMI of 51.5. Her neck size is 19.5 inches. She is referred by Dr. Baron Vergara. SUMMARY: Severe obstructive sleep apnea (G47.33). Rule 1A and 1B: AHI=89.1/hr, Overall SDB index=89.8/hr. Oximetry showed average sleep saturation of 85%, lowest SaO2 was 57% and her saturations were above90% for 19.8% of the night. Sleep and respiration normalized at a CPAP setting of 12.0 cm of H2O. Overall AHI at optimal setting=10.0/hr. AHI is elevated due to sleep onset events. recommendations: Trial with Nasal CPAP 12.0 cm of H2O with a heated humidifier and a Respironics Dreamwear Under theNose Mask. Consider download 2 weeks after setup to further assess efficacy of setting due to slightly elevated AHI. She should follow up in 31-90 days to assess the efficacy and compliance with nasal CPAP. Should the patient have difficulty tolerating PAP, consider surgical evaluation of the upper airwayor a dental appliance should be considered. Obtain and maintain ideal body weight. Avoid alcohol and other BREAK UP WORKER depressants. If daytime sleepiness persists, despite the above recommendations, a reevaluation with daytime somnolence testing may be considered. POLYSOMNOGRAPHY: Nocturnal polysomnography was performed 07/25/2023 (8:50 p.m. to 6:17 a.m.), using standard recording parameters which include Frontal, Central and Occipital EEG,, left and right EOG, submental EMG, EKG, left and right anterior tibialis EMG, abdominal and thoracic respiratory effort, nasal/oral airflow, and oximetry. Data were interpreted following standard AASM criteria utilizing the 30% reduction in airflow resulting in at least a 4% desaturation definition of hypopnea (AASM Rule 1B) and a 3% desaturation (AASM Rule 1A). She estimated obtaining 9 hours of sleep the night before testing. BASELINE SLEEP DATA: During the baseline portion of the recording, Ms. Kemp slept 174.5 minutes out of 213.5 minutes for a sleep efficiency (total sleep time/total recording time) of 81.7%. Sleep latency was 3.5 minutes. Sleep architecture revealed Stage N1 sleep 6.6% of total sleep time. Stage N2 sleep was 68.8%, Stage N3 sleep was 24.6% and Stage R sleep was 0%. BASELINE RESPIRATORY MONITORINA and1B:Respiratory monitoring revealed 157 obstructive apneas, 0 mixed apneas, 0 central apnea and 102 partial upper airway obstructions (obstructive hypopneas) resulting in an overall apnea and hypopnea index (AHI) of 89.1 per hour of sleep. Her overall supine AHI was 107.5 events per hour of supine sleep (100.5 minutes total supine sleep) and lateral AHI was 64.1 events per hour of lateral sleep (74 minutes total lateral sleep). No REM sleep was noted during baseline. There were an additional 2 respiratory event related arousals (RERAs=hypopneas without a 4% oxygen desaturation) which resulted in an overall sleep disordered breathing (SDB) index of 89.8/hr. Baseline SaO2 was 85% and the lowest SaO2 was 57%. Technicians noted loud snores during sleep. TITRATION OF NASAL CPAP: Because of sleep apnea (327.23), the baseline recording was stopped and treatment testing was started. Nasal CPAP was administered with pressures ranging from 4.0 to 12.0 cm. The optimal pressure forresolution of obstructive breathing and snoring was determined to be 12.0 cm. At this pressure the patient slept 78.0 minutes out of 84.5 minutes for a sleep efficiency of 92.3%. Stage 1 sleep was reduced to 1.9% of total sleep time. The overall AHI at the optimal setting was 10.0 events per hour of sleep at this pressure. The lowest SaO2 at this pressure was 86%. SaO2 during REM sleep was usually between 86-97%. LIMB MOVEMENTS AND ECG: Anterior tibialis EMG monitoring revealed 96 periodic leg movements in sleep (12.1 per hour), 2 of which were associated with unambiguous EEG arousal (0.3 per hour). ECG showed Normal Sinus Rhythm with PVCs noted. Her average heart rate during wake was 97.5 beats per minutes and during sleep was 99 beats per minute. PATIENT ASSESSMENT: On the morning post sleep questionnaire, the patient noted that the sleep in the laboratory was better than her sleep at home. Baron Vergara MD Electronically signed by Baron Vergara 08/04/2023 You may have noticed a change in our reports and it may be confusing. [facility] is accredited by the [place] [employer] (AASM). These changes have been done to remain incompliance with the AASM accreditation rules. The AASM has 2 NEW rules for scoring hypopneas (partial upper airway obstructions). The criteria for Rule 1A: airflow reduction of 30% or greater for at least 10 seconds associated with a 3% or greater oxygen desaturation or an arousal. The criteria for Rule 1B: airflow reduction of 30% or greater for at least 10 seconds associated with a 4% or greater oxygen desaturation. With the Rule 1A criteria, the overall apnea + hypopnea index (AHI) will typically be higher than the 1B rule. As of February 26, 2023, the AASM requires all accredited sleep facilities to report hypopneas according to Rule1A. Medicare, as well as some other insurance, follows the Rule 1B criteria for diagnosing sleep apnea. [facility] will include both Rule 1A and Rule 1B in the report. Cosigned by Homer Beckham MD at 08/06/2023 9:00 AM CDT Associated attestation - Homer Beckham MD - 08/06/2023 9:00 AM CDT I have read the Sleep Report for this patient and attest that I am in agreement with it. documented in this encounter Plan of Treatment Upcoming Encounters Date Type Department Care Team (Late st Contact Info) Description 03/27/2024 8:30 AM METAL SHAPING MACHINE OPERATOR Hospital Encounter [facility] [address] [place] [address] Burt Eastman MD [address] [address] 03/27/2024 8:30 AM METAL SHAPING MACHINE OPERATOR - 03/27/2024 9:00 AM METAL SHAPING MACHINE OPERATOR Surgery [facility] [address] [place] [address] Burt Eastman MD [address] [address] COLONOSCOPY 04/09/2024 1:15 PM METAL SHAPING MACHINE OPERATOR Office Visit [facility] - Pulmonology & Sleep Medicine [facility] [address] [place] [id number] Baron Vergara MD [address] [place] [address] Scheduled Procedures Name Priority Associated Diagnoses Date/Ti me COLONOSCOPY HISTORY OF COLON POLYPS 03/27/2024 8:30 AM METAL SHAPING MACHINE OPERATOR documented as of this encounter Procedures Procedure Name Priority Date/Time Associated Diagnosis Comments SPLIT NIGHT POLYSOMNOGRAPHY - INCLUDES DIAGNOSTIC AND CPAP TITRATION Routine 07/26/2023 Obstructive sleep apnea (adult) (pediatric) documented in this encounter Results * SPLIT NIGHT PSG (07/26/2023) Baron Vergara MD SLEEP CENTER ORDERABLES Final Re sult documented in this encounter Visit Diagnoses Diagnosis KWABENA (obstructive sleep apnea) Obstructive sleep apnea (adult) (pediatric) Obstructive sleep apnea (adult) (pediatric) documented in this encounter Care Teams Histological Illustrator Relationship Specialty Start Date End Date Daja Kern MD [address] [place] [address] PCP - General Internal Medicine 03/13/15 Baron Vergara MD [address] [place] [id number] Consulting Physician Pulmonary Disease 06/26/23 documented as of this encounter
--- OUTSIDE RECORDS SUMMARY | 2024-03-03 19:26 | XMS_ITS | Encounter Summary ---
Author Organization [facility] Address [address] [place] [address] Phone Care Team Providers Care Railroad Inspector Name Role Phone Daja Kern MD Primary Care Provider [phone] Baron Vergara MD Unavailable Reason for Visit * Reason Comments Abdominal Pain Diarrhea Encounter Details Date Type Department Care Team ([facility] st Contact Info) Description 07/17/2023 3:29 PM CDT - 07/17/2023 6:45 PM CDT Emergency [facility] Emergency [address] [place] [id number] Sharri Harper, PAC [address] [place] [address] Diarrhea Discharge Disposition: Discharged to home or Selfcare Social History Tobacco Use Types Packs/Day Years Used Date Smoking Tobacco: Never Smokeless Tobacco: Never Alcohol Use Standard Drinks/Week Comments No 0 (1 standard drink = 0.6 oz pur e alcohol) [facility] Utilities Answer Date Recorded In the past 12 months has [employer], gas, oil, or water company threatened to [...] declined 05/22/2023 How often do you attend faith or temple serv ices? Patient declined 05/22/2023 Do you belong to any clubs o r organizations such as faith groups, unions, fraternal or athletic groups, or [...] care, and heating? Patient declined 05/22/2023 [facility]at ional [facility] - Occupational Stress Questionnaire Answer Date [...] place to sleep or slept in a fci (including now)? Patient declined 05/22/2023 Sexually Active [...] Sign Reading Time Taken Comments Blood Pressure 134/108 07/17/2023 3:23 PM CDT Pulse 109 07/17/2023 3:23 PM CDT Temperature 37 ??C (98.6 ??F) 07/17/2023 3:23 PM CDT Respiratory Rate 18 07/17/2023 3:23 PM CDT Oxygen Saturation 98% 07/17/2023 3:23 PM CDT Inhaled Oxygen Concentration - - Weight 125.6 kg (277 lb) 07/17/2023 3:23 PM CDT Height 157.5 cm (5' 2 ) 07/17/2023 3:23 PM CDT Body Mass Index 50.66 07/17/2023 3:23 PM CDT documented in this encounter Discharge Instructions * Discharge Instructions* Sharri Harper PAC - 07/17/2023 6:38 PM CDT Please push clear fluids for the next 24-48 hours and advance to a bland diet as tolerated. Return for reevaluation if your symptoms change or worsen. See your dentist for a follow up as soon as possible. documented in this encounter Medications at Time [...] ALBUTEROL IN take by inhalation. 01/29/20 24 amoxicillin (AMOXIL) 500 MG CapsuleIndication s:dental infection Take 1 Capsule by mouth 3 times daily for 10 days. Indications: dental infection 30 Capsule 07/17/2023 07/27/19 24 folic acid (FOLVITE) 1 MG Tablet [...] as of this encounter ED Notes * Vandana Bryson RN - 07/17/2023 6:44 PM CDT Patient refused vitals and discharged. Discharge instructions and patient educational material reviewed with patient; questions and concerns addressed; patient verbalizes understanding, using teach back. Patient was given 2 prescriptions. Patient discharged per ambulatory mode with self as responsible constitution party. * Vandana Bryson RN - 07/17/2023 5:10 PM CDT Pt wheeled to restroom to provide urine specimen. * Nhung Powell CNA - 07/17/2023 5:03 PM CDT Lab called regarding collected urine specimen. Informed lab urine has not been collected at this time. * Vandana Bryson RN - 07/17/2023 4:45 PM CDT ERP aware of unsuccessful IV and states pt may wait for lab work results to determine if IV is needed. No distress noted. * Vandana Bryson RN - 07/17/2023 4:30 PM CDT RN at bedside for IV access. RN attempted x2 without success, but lab work was collected successfully. Additional RN will attempt. * Sharri Harper PAC - 07/17/2023 4:21 PM CDT Chief Complaint Patient presents with Abdominal Pain Diarrhea HPI Alona Kemp is a 52 y.o. female who presents from home due to diarrhea which has been occurring for the past two days. Patient states that she has had some L sided abdominal cramping associatedwith it. She has also been experiencing R upper dental pain and has had recent headaches and a slight cough. She denies any fever, dysuria, chest pain, sob, or dizziness. She has taken imodium and pepto bismol without improvement. PMH includes hypothyroidism, depression, KWABENA, bipolar disorder, ERD,nephrocalcinosis, HTN, HLD, NAFLD, anxiety, SBO, DM, and COPD. Current Facility-Administered Medications Medication Dose Route Frequency Provider Last Rate Last Admin 0.9 % sodium chloride solution Intravenous Once Sharri Harper, MIKE Current Outpatient Medications Medication Sig Dispense Refill albuterol (PROVENTIL, VENTOLIN) (2.5 MG/3ML) 0.083% Nebulizer Soln 3 mL by Nebulization route every6 hours as needed for Wheezing. 360 mL 0 ALBUTEROL IN take by inhalation. amoxicillin (AMOXIL) 500 MG Capsule Take 1 Capsule by mouth 3 times daily for 10 days. Indications:dental infection 30 Capsule 0 ARIPiprazole extended release (Abilify Maintena) 400 [...] 0 gabapentin (NEURONTIN) 300 MG Capsule Take 600 mg by mouth 3 times [...] 6 hours as needed for Muscle spasms. (Patient not taking: Reported on 06/26/2023) traZODone (DESYREL) 50 MG Tablet Take 100 [...] not use cpap SBO (small bowel obstruction) ([facility]) 09/2018 Vitamin D deficiency Past Surgical History: Procedure Laterality Date SECTION 1994 CHOLECYSTECTOMY [address] [facility] (Does not remember the ) COLONOSCOPY N/A 11/16/2018 Procedure: COLONOSCOPY - POLYPS, BIOPSIES; Surgeon: Damian Gallardo DO; Location: [facility]; Service: Gastroenterology EGD 2012? [facility] UPPER GASTROINTESTINAL ENDOSCOPY N/A 02/06/2019 Procedure: EGD, SMALL BOWEL BIOSY, GASTRIC POLYP, SAMANTHA TEST; Surgeon: Damian Gallardo DO; Location: [facility]; Service: Gastroenterology WISDOM TOOTH [...] Session: Patient declined Stress: Patient Declined (05/22/2023) [employer] [facility] [employer] [facility] - Occupational Stress Questionnaire Feeling of Stress : Patient declined Social Integration: Patient Declined (05/22/2023) Social Connection and Isolation Panel [NHANES] Frequency of Communication with Friends and Family: Patient declined Frequency of Social Gatherings with Friends and Family: Patient declined Attends Orthodox Services: Patient declined Active Member of Clubs [...] the Last Year: Patient declined BP (!) 134/108 Pulse 109 Temp 98.6 ??F (37 ??C) (Tympanic) Resp 18 Ht 5' 2 (1.575 m) Wt 277 lb (125.6 kg) LMP 11/12/2019 SpO2 98% BMI 50.66 kg/m?? Review of Systems Constitutional: Negative for chills and fever. HENT: Positive for dental problem. Negative for congestion, ear pain, rhinorrhea and sore throat. Eyes: Negative for discharge. Respiratory: Positive for cough. Negative for chest tightness, shortness of breath and wheezing. Cardiovascular: Negative for chest pain and palpitations. Gastrointestinal: Positive for nausea. Negative for abdominal pain, diarrhea and vomiting. Genitourinary: Negative for difficulty urinating and menstrual problem. Musculoskeletal: Negative for arthralgias and myalgias. Skin: Negative for rash and wound. Neurological: Positive for headaches. Negative for dizziness and syncope. All other systems reviewed and are negative. Physical Exam Vitals and nursing note reviewed. Constitutional: General: She is not in acute distress. Appearance: She is well-developed. She is not diaphoretic. HENT: Head: Normocephalic and atraumatic. Right Ear: External ear normal. Left Ear: External ear normal. Eyes: Conjunctiva/sclera: Conjunctivae normal. Pupils: Pupils are equal, round, and reactive to light. Neck: Trachea: No tracheal deviation. Cardiovascular: Rate and Rhythm: Normal rate and regular rhythm. Heart sounds: Normal heart sounds. No murmur heard. Pulmonary: Effort: Pulmonary effort is normal. No respiratory distress. Breath sounds: Normal breath sounds. No wheezing or rales. Abdominal: General: Bowel sounds are normal. There is no distension. Palpations: Abdomen is soft. Tenderness: There is generalized abdominal tenderness and tenderness in the left upper quadrant andleft lower quadrant. There is no guarding or rebound. Musculoskeletal: General: Normal range of motion. Cervical back: Normal range of motion. Skin: General: Skin is warm and dry. Neurological: Mental Status: She is alert and oriented to person, place, and time. Cranial Nerves: No cranial nerve deficit. Labs Reviewed CMP (COMPREHENSIVE METABOLIC PANEL) - Abnormal; Notable for the following components: Result Value GLUCOSE 139 (*) All other components within normal limits URINALYSIS REFLEX IF INDICATED BY ABNORMAL RESULTS - Abnormal; Notable for the following components: WBC ESTERASE 25 /ul (*) PROTEIN, RANDOM URINE 30 mg/dL (*) WBC (Urine) 6-10 (*) BACTERIA, URINE Few (*) All other components within normal limits RSV,SARS-COV-2,INFLUENZA A&B BY PCR - Normal Narrative: This test has not been FDA cleared or approved; the test has been authorized by FDA under an Emergency Use Authorization (EUA) for use by laboratories certified under the CLIA that meet the requirements to perform moderate, high or waived complexity tests. Authorized Fact Sheets about this test for providers and patients are available at: https://www.fda. gov/medical-devices/ijptuylrd-cpslriwzur-mgezjzo-devices/ktebckigj-btw-xlgjiaxly tions LIPASE - Normal CULTURE, URINE COMPLETE BLOOD COUNT (CBC) WITH DIFF Narrative: The following orders were created for panel order CBC with Diff [id number]. Procedure Abnormality Status --------- ------ CBC with Auto Differential[[id number]] Final result Please view results for these tests on the individual orders. CBC WITH AUTO DIFFERENTIAL URINALYSIS REFLEX IF INDICATED BY ABNORMAL RESULTS Final Result XR ABDOMINAL SERIES WITH CHEST VIEW Final Result IMPRESSION: No acute cardiopulmonary abnormality. Nonobstructive bowel gas pattern. CMP (Comprehensive Metabolic Panel) Final Result CBC with Diff [id number] Final Result Lipase [id number] Final Result Procedures Recent Results (from the past 24 hour(s)) RSV,SARS-COV-2,INFLUENZA A&B BY PCR Specimen: Nasopharyngeal; Swab Result Value Ref Range FLU A Negative Negative, Error FLU B Negative Negative RESP SYNC VIRUS Negative Negative SARSCOV2 NOT DETECTED (Reference Range for this test is Not Detected) CMP (Comprehensive Metabolic Panel) Result Value Ref Range SODIUM 138 136 - 145 mmol/L POTASSIUM 3.9 3.5 - 5.1 mmol/L CHLORIDE 103 98 - 107 mmol/L CO2, VENOUS 22 22 - 30 mmol/L ANION GAP 16.9 <18.0 mmol/L GLUCOSE 139 (H) 70 - 99 mg/dL BUN 12 10 - 20 mg/dL CREATININE, BLOOD 0.72 0.60 - 1.00 mg/dL BUN/CREATININE RATIO 17 12 - 20 ratio TOTAL PROTEIN 7.4 6.3 - 8.2 g/dL ALBUMIN 3.8 3.5 - 5.0 g/dL A/G RATIO 1.1 1.0 - 2.2 CALCIUM 9.3 8.7 - 10.5 mg/dL T BILI 0.4 0.2 - 1.2 mg/dL SGOT (AST) 21 5 - 34 U/L SGPT (ALT) 29 0 - 55 U/L ALKALINE PHOSPHATASE 81 40 - 150 U/L GFR, ESTIMATED >60 >=60 GFR, EST. >60 >=60 GFR, EST. NONAFRICAN >60 >=60 Lipase [id number] Result Value Ref Range LIPASE 20 8 - 78 U/L CBC with Auto Differential Result Value Ref Range WBC 9.84 4.00 - 12.00 10(3)/mcL RBC 4.43 3.80 - 5.30 10(6)/mcL HEMOGLOBIN (HGB) 13.4 12.0 - 15.8 g/dL HEMATOCRIT (HCT) 39.8 36.0 - 47.0 % MCV 89.8 82.0 - 96.0 fL MCH 30.2 26.0 - 34.0 pg MCHC 33.7 31.0 - 36.0 g/dL PLATELET COUNT 212 140 - 440 10(3)/mcL RDW 13.4 11.8 - 15.5 % MPV 11.8 9.7 - 12.4 fL NEUTROPHILS 73.0 47.0 - 73.0 % LYMPHOCYTES 19.2 18.0 - 42.0 % MONOCYTES 6.3 4.0 - 12.0 % EOSINOPHILS 1.2 0.0 - 5.0 % BASOPHILS 0.3 0.0 - 1.0 % ABSOLUTE NEUTROPHILS 7.18 1.60 - 7.70 10(3)/mcL ABSOLUTE LYMPHOCYTES 1.89 1.30 - 3.20 10(3)/mcL ABSOLUTE MONOCYTES 0.62 0.20 - 1.00 10(3)/mcL ABSOLUTE EOSINOPHIL 0.12 0.00 - 0.40 10(3)/mcL ABSOLUTE BASOPHILS 0.03 0.00 - 0.10 10(3)/mcL NRBC PER 100 WBC 0 RESULTS ARE CONSISTENT WITH PERIPHERAL SMEAR REVIEW Yes URINALYSIS REFLEX IF INDICATED BY ABNORMAL RESULTS Result Value Ref Range SPECIFIC GRAVITY 1.010 1.003 - 1.030 URINE PH 6.0 5.0 - 9.0 WBC ESTERASE 25 /ul (A) Negative NITRITE Negative Negative PROTEIN, RANDOM URINE 30 mg/dL (A) Negative URINE GLUCOSE, QUAL Negative Negative URINE KETONES Negative Negative UROBILINOGEN Normal Normal mg/dL URINE BLOOD Negative Negative dylan/ul URINALYSIS COLOR Yellow URINALYSIS CLARITY Clear WBC (Urine) 6-10 (A) Negative, 0-5 /hpf URINE RBC'S 0-2 Negative, 0-2 /hpf EPITHELIAL CELLS Moderate amount /lpf BACTERIA, URINE Few (A) Negative /hpf Imaging Results XR ABDOMINAL SERIES WITH CHEST VIEW (Final result) Result time 07/17/23 17:13:13 Final result by Lavelle Le DO (07/17/23 17:13:13) Impression: IMPRESSION: No acute cardiopulmonary abnormality. Nonobstructive bowel gas pattern. Narrative: EXAM DESCRIPTION: XR ABDOMINAL SERIES WITH CHEST VIEW REASON FOR STUDY: c/o diarrhea w/ LT sided abd pain x 2 days. hx of IBS, GERD, COPD, and HTN sugerical hx of cholecystectomy TECHNIQUE: Single radiographic view of the chest with supine and upright views of the abdomen. COMPARISON: Chest radiographs dated 05/30/2023. FINDINGS: LUNGS: No focal opacity, pleural effusion, or pneumothorax. HEART/MEDIASTINUM: Cardiac silhouette normal in size. Mediastinal and hilar contours appear normal. FREE AIR: None. BOWEL: There is scattered stool and gas within the large bowel. No dilated small bowel loops are evident. SOFT TISSUES: No abnormal calcifications. LINES/TUBES: None. BONES: No acute osseous abnormality. THIS IS AN ELECTRONICALLY VERIFIED FINAL REPORT 07/17/2023 5:10 PM - Electronically signed by Lavelle Le M.D., D.O. Lavelle Le M.D., D.O. MW: BRIDGET Report ID: [id number] Reading Location: [place] [address] Medical Decision Making Clinical Impression 1. Pain, dental 2. Diarrhea 3. Urinary tract infection Disposition: Discharge Patient was started on a course of amoxicillin for a dental infection and UTI. She was prescribed lomotil for diarrhea. Advised pushing clear fluids for the next 24 hours and to advance to a bland diet as tolerated. Return for reevaluation if your symptoms change or worsen. Cosigned by Cameron Aguilera MD at 07/20/2023 3:37 AM CDT * Vandana Bryson RN - 07/17/2023 3:48 PM CDT Pt resting in stretcher and updated on plan of care. No distress noted. * Kit Gan RN - 07/17/2023 3:21 PM CDT Pt to ER triage w/c/o Diarrhea w/abd pain x 2 days. Pt also c/o headache and toothache. Pt alert and oriented x 4 with respirations that are even and unlabored. documented in this encounter Plan of Treatment Upcoming Encounters Date Type Department Care Team (Late st Contact Info) Description 03/27/2024 8:30 AM TURNER MACHINE Hospital Encounter [facility] Periop [address] [place] [address] Burt Eastman MD [address] [address] 03/27/2024 8:30 AM TURNER MACHINE - 03/27/2024 9:00 AM TURNER MACHINE Surgery [facility] Periop [address] [place] [address] Burt Eastman MD [address] [address] COLONOSCOPY 04/09/2024 1:15 PM TURNER MACHINE Office Visit [facility] - Pulmonology & Sleep Medicine - [place] [address] [place] [address] Baron Vergara MD [address] [place] [address] Scheduled Procedures Name Priority Associated Diagnoses Date/Ti me COLONOSCOPY HISTORY OF COLON POLYPS 03/27/2024 8:30 AM TURNER MACHINE documented as of this encounter Procedures Procedure Name Priority Date/Time Associated Diagnosis Comments URINALYSIS REFLEX IF INDICATED BY ABNORMAL RESULTS STAT 07/17/2023 5:12 PM CDT CULTURE, URINE STAT 07/17/2023 5:12 PM CDT XR ABDOMINAL SERIES WITH CHEST VIEW STAT 07/17/2023 5:02 PM CDT CBC WITH AUTO DIFFERENTIAL STAT 07/17/2023 4:35 PM CDT LIPASE STAT 07/17/2023 4:35 PM CDT CMP (COMPREHENSIVE METABOLIC PANEL) STAT 07/17/2023 4:35 PM CDT COMPLETE BLOOD COUNT (CBC) WITH DIFF STAT 07/17/2023 4:35 PM CDT RSV,SARS-COV-2,INFLUE NZA A&B BY PCR STAT 07/17/2023 3:28 PM CDT documented in this encounter Results * Culture, Urine (07/17/2023 5:12 PM CDT) CULTURE RESULTS ESCHERICHIA COLI 07/20/2023 9:30 AM CDT [facility] Comment:PRESUMPTIVE IDENTIFI CATION CULTURE RESULTS ALSO MIXED GROWTH OF DISTAL URETHRA CONTAMINANTS. 07/20/2023 9:30 AM CDT [facility] Urine URINE SPECIMEN COLLECTION, CLEAN CATCH / Unknown Non-Phlebotomy Collection / Unknown 07/17/2023 5:12 PM CDT 07/17/2023 5:27 PM CDT Narrative Organism Antibiotic Method Susceptibility Escherichia coli Ampicillin [facility] IIB 4 mcg/ml: Susceptible Escherichia coli Ampicillin/sulbactam [facility] IIB <=2 mcg/ml: Susceptible Escherichia coli Cefazolin [facility] IIB <=4 mcg/ml: Susceptible Escherichia coli Cefepime [facility] IIB <=1 mcg/ml: Susceptible Escherichia coli Ceftriaxone [facility] IIB <=1 mcg/ml: Susceptible Escherichia coli Gentamicin [facility] IIB <=1 mcg/ml: Susceptible Escherichia coli Levofloxacin [facility] IIB <=0.12 mcg/ml: Susceptible Escherichia coli Meropenem [facility] IIB <=0.25 mcg/ml: Susceptible Escherichia coli Nitrofurantoin [facility] IIB <=16 mcg/ml: Susceptible Escherichia coli Piperacillin/Tazobactam [facility] II B <=4 mcg/ml: Susceptible Escherichia coli Tobramycin [facility] IIB <=1 mcg/ml: Susceptible Escherichia coli Trimeth/Sulfamethoxazole [facility] I IB <=20 mcg/ml: Susceptible Sharri Oliver Page PAC MICROBIOLOGY - GENERAL ORDER ARMANDO Final Result [facility] [address] [place] [address], [place] * (ABNORMAL) URINALYSIS REFLEX IF INDICATED BY ABNORMAL RESULTS (07/17/2023 5:12 PM CDT) SPECIFIC GRAVITY 1.010 1.003 - 1.030 07/17/2023 5:45 PM CDT [facility] URINE PH 6.0 5.0 - 9.0 07/17/2023 5:45 PM CDT [facility] WBC ESTERASE 25 /ul(A) Negative 07/17/2023 5:45 PM CDT [facility] NITRITE Negative Negative 07/17/2023 5:45 PM CDT [facility] PROTEIN, RANDOM URINE 30 mg/dL(A) Negative 07/17/2023 5:45 PM CDT [facility] URINE GLUCOSE, QUAL Negative Negative 07/17/2023 5:45 PM CDT [facility] URINE KETONES Negative Negative 07/17/2023 5:45 PM CDT [facility] UROBILINOGEN Normal Normal mg/dL 07/17/2023 5:45 PM CDT [facility] URINE BLOOD Negative Negative dylan/ul 07/17/2023 5:45 PM CDT [facility] URINALYSIS COLOR Yellow 07/17/19 5:45 PM CDT [facility] URINALYSIS CLARITY Clear 07/17/2023 5:45 PM CDT [facility] WBC (Urine) 6-10(A) Negative, 0-5 /hpf 07/17/2023 5:45 PM CDT [facility] URINE RBC'S 0-2 Negative, 0-2 /hpf 07/17/2023 5:45 PM CDT [facility] EPITHELIAL CELLS Moderate amount /lpf 07/17/2023 5:45 PM CDT [facility] BACTERIA, URINE Few(A) Negative /hpf 07/17/2023 5:45 PM CDT [facility] Urine URINE SPECIMEN COLLECTION, CLEAN CATCH / Unknown Non-Phlebotomy Collection / Unknown 07/17/2023 5:12 PM CDT 07/17/2023 5:27 PM CDT us Sharri Oliver Page PAC URINE ORDERABLES Final Resul t [facility] [address] [place] [address] * XR ABDOMINAL SERIES WITH CHEST VIEW (07/17/2023 5:02 PM CDT) Anatomical Region Laterality Modality Abdomen N/A Digital Radiogra phy 07/17/2023 5:10 PM CDT Impressions 07/17/2023 5:13 PM CDT IMPRESSION: No acute cardiopulmonary abnormality. Nonobstructive bowel gas pattern. Narrative 07/17/2023 5:13 PM CDT EXAM DESCRIPTION: XR ABDOMINAL SERIES WITH CHEST VIEW REASON FOR STUDY: c/o diarrhea w/ LT sided abd pain x 2 days. hx of IBS, GERD, COPD, and HTN sugerical hx of cholecystectomy ?? TECHNIQUE: Single radiographic view of the chest with ??supine and upright views ??of the abdomen. COMPARISON: Chest radiographs dated 05/30/2023. FINDINGS: LUNGS: ??No focal opacity, pleural effusion, or pneumothorax. ?? HEART/MEDIASTINUM: ??Cardiac silhouette normal in size. Mediastinal and hilar contours appear normal. FREE AIR: ??None. BOWEL: ??There is scattered stool and gas within the large bowel. ??No dilated small bowel loops are evident. SOFT TISSUES: ??No abnormal calcifications. LINES/TUBES: ??None. BONES: ??No acute osseous abnormality. THIS IS AN ELECTRONICALLY VERIFIED FINAL REPORT 07/17/2023 5:10 PM - Electronically signed by ??Lavelle Le M.D., D.O. Chilo Sylvester M.D.OKyung GILL: BRIDGET D: ??07/17/2023 5:10 PM T: ??07/17/2023 5:10 PM Report ID: [id number] Reading Location: ??[id number] Procedure Note Lavelle Le, DO - 07/17/2023 EXAM DESCRIPTION: XR ABDOMINAL SERIES WITH CHEST VIEW REASON FOR STUDY: c/o diarrhea w/ LT sided abd pain x 2 days. hx of IBS, GERD, COPD, and HTN sugerical hx of cholecystectomy TECHNIQUE: Single radiographic view of the chest with supine and upright views of the abdomen. COMPARISON: Chest radiographs dated 05/30/2023. FINDINGS: LUNGS: No focal opacity, pleural effusion, or pneumothorax. HEART/MEDIASTINUM: Cardiac silhouette normal in size. Mediastinal and hilar contours appear normal. FREE AIR: None. BOWEL: There is scattered stool and gas within the large bowel. No dilated small bowel loops are evident. SOFT TISSUES: No abnormal calcifications. LINES/TUBES: None. BONES: No acute osseous abnormality. THIS IS AN ELECTRONICALLY VERIFIED FINAL REPORT 07/17/2023 5:10 PM - Electronically signed by Antwan Sylvester M.D..O. Chilo Sylvester M.D.OKyung GILL: BRIDGET Report ID: [id number] Reading Location: [id number] IMPRESSION: No acute cardiopulmonary abnormality. Nonobstructive bowel gas pattern. Sharri [place] Page PAC IMG DIAGNOSTIC ORDERABLES Fi nal Result * CBC with Auto Differential (07/17/2023 4:35 PM CDT) [facility] Signature WBC 9.84 4.00 - 12.00 10(3)/mcL 07/17/2023 5:32 PM CDT [facility] RBC 4.43 3.80 - 5.30 10(6)/mcL 07/17/2023 5:32 PM CDT [facility] HEMOGLOBIN (HGB) 13.4 12.0 - 15.8 g/dL 07/17/2023 5:32 PM CDT [facility] HEMATOCRIT (HCT) 39.8 36.0 - 47.0 % 07/17/2023 5:32 PM CDT [facility] MCV 89.8 82.0 - 96.0 fL 07/17/2023 5:32 PM CDT [facility] MCH 30.2 26.0 - 34.0 pg 07/17/2023 5:32 PM CDT [facility] MCHC 33.7 31.0 - 36.0 g/dL 07/17/2023 5:32 PM CDT [facility] PLATELET COUNT 212 140 - 440 10(3)/[facility] 07/17/2023 5:32 PM CDT [facility] RDW 13.4 11.8 - 15.5 % 07/17/2023 5:32 PM CDT [facility] MPV 11.8 9.7 - 12.4 fL 07/17/2023 5:32 PM CDT [facility] NEUTROPHILS 73.0 47.0 - 73.0 % 07/17/2023 5:32 PM CDT [facility] LYMPHOCYTES 19.2 18.0 - 42.0 % 07/17/2023 5:32 PM CDT [facility] MONOCYTES 6.3 4.0 - 12.0 % 07/17/2023 5:32 PM CDT [facility] EOSINOPHILS 1.2 0.0 - 5.0 % 07/17/2023 5:32 PM CDT [facility] BASOPHILS 0.3 0.0 - 1.0 % 07/17/2023 5:32 PM CDT [facility] ABSOLUTE NEUTROPHILS 7.18 1.60 - 7.70 10(3)/mcL 07/17/2023 5:32 PM CDT [facility] ABSOLUTE LYMPHOCYTES 1.89 1.30 - 3.20 10(3)/mcL 07/17/2023 5:32 PM CDT [facility] ABSOLUTE MONOCYTES 0.62 0.20 - 1.00 10(3)/[facility] 07/17/2023 5:32 PM CDT [facility] ABSOLUTE EOSINOPHIL 0.12 0.00 - 0.40 10(3)/[facility] 07/17/2023 5:32 PM CDT [facility] ABSOLUTE BASOPHILS 0.03 0.00 - 0.10 10(3)/[facility] 07/17/2023 5:32 PM CDT [facility] NRBC PER 100 WBC 0 07/17/19 5:32 PM CDT [facility] RESULTS ARE CONSISTENT WITH PERIPHERAL SMEAR REVIEW Yes 07/17/2023 5:32 PM CDT [facility] Blood Venipuncture / Unknown 07/17/2023 4:35 PM CDT 07/17/2023 4:54 PM CDT Sharri Harper PAC HEMATOLOGY ORDERABLES Final Result [facility] [address] [place] [address] * Lipase [id number] (07/17/2023 4:35 PM CDT) LIPASE 20 8 - 78 U/L 07/17/2023 5:41 PM CDT [facility] Blood Venipuncture / Unknown 07/17/2023 4:35 PM CDT 07/17/2023 4:54 PM CDT Sharri Harper PAC CHEMISTRY ORDERABLES Final R esult [facility] [address] [place] [address] * (ABNORMAL) CMP (Comprehensive Metabolic Panel) (07/17/2023 4:35 PM CDT) SODIUM 138 136 - 145 mmol/L 07/17/2023 5:20 PM CDT [facility] POTASSIUM 3.9 3.5 - 5.1 mmol/L 07/17/2023 5:20 PM CDT [facility] CHLORIDE 103 98 - 107 mmol/L 07/17/2023 5:20 PM CDT [facility] CO2, VENOUS 22 22 - 30 mmol/L 07/17/2023 5:20 PM CDT [facility] ANION GAP 16.9 <18.0 mmol/L 07/17/2023 5:20 PM CDT [facility] GLUCOSE 139(H) 70 - 99 mg/dL 07/17/2023 5:20 PM CDT [facility] BUN 12 10 - 20 mg/dL 07/17/2023 5:20 PM CDT [facility] CREATININE, BLOOD 0.72 0.60 - 1.00 mg/dL 07/17/2023 5:20 PM CDT [facility] BUN/CREATININE RATIO 17 12 - 20 ratio 07/17/2023 5:20 PM CDT [facility] TOTAL PROTEIN 7.4 6.3 - 8.2 g/dL 07/17/2023 5:20 PM CDT [facility] ALBUMIN 3.8 3.5 - 5.0 g/dL 07/17/2023 5:20 PM CDT [facility] A/G RATIO 1.1 1.0 - 2.2 07/17/2023 5:20 PM CDT [facility] CALCIUM 9.3 8.7 - 10.5 mg/dL 07/17/2023 5:20 PM CDT [facility] T BILI 0.4 0.2 - 1.2 mg/dL 07/17/2023 5:20 PM CDT [facility] SGOT (AST) 21 5 - 34 U/L 07/17/2023 5:20 PM CDT [facility] Comment: Specimen is hemolyzed. In vitro hemolysis could affect results. Clinical correlation advised. SGPT (ALT) 29 0 - 55 U/L 07/17/2023 5:20 PM CDT [facility] ALKALINE PHOSPHATASE 81 40 - 150 U/L 07/17/2023 5:20 PM CDT [facility] GFR, ESTIMATED >60 >=60 07/17/2023 5:20 PM CDT [facility] Comment: Creatinine Clearance is the preferred criteria for selecting drug dose adjustments in renally impaired patients. ??The GFR is provided as additional pertinent clinical information. GFR is reported in mL/min/1.73 sq m. Calculation based on the Chronic Kidney Disease Epidemiology Collaboration (CKD- EPI) equation refit without adjustment for race. GFR, EST. >60 >=60 024 5:20 PM CDT [facility] GFR, EST. NONAFRICAN >60 >=60 07/17/2023 5:20 PM CDT [facility] Blood Venipuncture / Unknown 07/17/2023 4:35 PM CDT 07/17/2023 4:54 PM CDT Sharri Oliver Page PAC CHEMISTRY ORDERABLES Final R esult [facility] [address] [place] [address] * RSV,SARS-COV-2,INFLUENZA A&B BY PCR (07/17/2023 3:28 PM CDT) FLU A Negative Negative, Error 07/17/2023 4:28 PM CDT [facility] FLU B Negative Negative 07/17/2023 4:28 PM CDT [facility] RESP SYNC VIRUS Negative Negative 4:28 PM CDT [facility] SARSCOV2 NOT DETECTED (Reference Range for this test is Not Detected) 07/17/2023 4:28 PM CDT [facility] Comment:This test was perfor med by a Reverse Platform Beater PCR Method. Swab NASOPHARYNGEAL SWAB / Unknown Non-Phlebotomy Collection / Unknown 07/17/2023 3:28 PM CDT 07/17/2023 3:50 PM CDT Narrative [facility] - 07/17/2023 4:28 PM CDT This test has not been FDA cleared or approved; the test has been authorized by FDA under an Emergency Use Authorization (EUA) for use by laboratories certified under the CLIA that meet the requirements to perform moderate, high or waived complexity tests. Authorized Fact Sheets about this test for providers and patients are available at: https://www.fda.gov/medical-devices/gopehppar-fsdinsjzrn-civsllc-devices/emergen -us e-authorizations Cameron Aguilera MD MICROBIOLOGY - GENERAL ORD ERABLES Final Result [facility] [address] [place] [address] documented in this encounter Visit Diagnoses Diagnosis Pain, dental- Primary Unspecified disorder of the teeth and supporting structures Diarrhea Urinary tract infection Urinary tract infection, site not specified documented in this encounter Active and Recently Administered Medications Times are shown in CDT. Scheduled Medication Order 07/15/2023 07/16/2023 07/17/2023 0.9 % sodium chloride solution at 1,000 mL/hr, Intravenous, ONCE, 1 dose, On 07/17/23 at 1630 1630 (Not Given - Pr ovider: Vandana Bryson RN - Reason: Patient/family refused) documented in this encounter Additional Health Concerns Infection Onset Date Last Indicated Resolved Time COVID - 19 07/17/2023 07/17/2023 07/17/2023 4:28 PM CDT documented as of this encounter Care Teams Railroad Inspector Relationship Specialty Start Date End Date Daja Kern MD [address] [place] [address] PCP - General Internal Medicine 03/13/15 Baron Vergara MD [address] [place] [address] Consulting Physician Pulmonary Disease 06/26/23 documented as of this encounter
--- OUTSIDE RECORDS SUMMARY | 2024-03-03 19:26 | XMS_ITS | Encounter Summary ---
Author Organization [email or web address] Care Team Providers Care Plywood Layup Line Core Feeder Name Role Phone Daja Kern MD Primary Care Provider [phone] Encounter Details Date Type Department Care Team (Latest Contact Info) Description 05/30/2023 Travel Social History Tobacco Use Types Packs/Day Years Used Date Smoking Tobacco: Never Smokeless Tobacco: Never Alcohol Use Standard Drinks/Week Comments No 0 (1 standard drink = 0.6 oz pur e alcohol) [facility] Utilities Answer Date Recorded In the past 12 months has [email or web address] electric, gas, oil, or water [email or web address] threatened to shut off services in your home? Patient declined 05/22/2023 Social Connection and Isolation Panel [NHANES] A nswer Date Recorded In a typical week, how many times do you talk on the phone with family, friends, or neighbors? Patient declined 05/22/2023 How often do you get togethe r with friends or relatives? Patient declined 05/22/2023 How often do you attend anglican or anabaptism serv ices? Patient declined 05/22/2023 Do you belong to any clubs o r organizations such as anglican groups, unions, fraternal or athletic groups, or [...] medical care, and heating? Patient declined [facility]/22/2023 [facility] - Occupational Stress Questionnaire Answer Date Recorded [...] place to sleep or slept in a halfway (including now)? Patient declined 05/22/2023 Sexually Active [...] st Contact Info) Description 03/27/2024 8:30 AM TELEMETRY RN [facility] [address] [place] [address] Burt Eastman MD [address] [address] 03/27/2024 8:30 AM TELEMETRY RN - 03/27/2024 9:00 AM TELEMETRY RN [facility] [address] [place] [address] Burt Eastman MD [address] [address] COLONOSCOPY 04/09/2024 1:15 PM TELEMETRY RN Office Visit [facility] - Pulmonology & Sleep Medicine [facility] [address] [place] [address] Baron Vergara MD [address] [place] [address] Scheduled Procedures Name Priority Associated Diagnoses Date/Ti me COLONOSCOPY HISTORY OF COLON POLYPS 03/27/2024 8:30 AM TELEMETRY RN documented as of this encounter Visit Diagnoses Not on filedocumented in this encounter Additional Health Concerns Infection Onset Date Last Indicated Resolved Time COVID - 19 05/30/2023 05/30/2023 05/30/2023 2:08 PM CDT documented as of this encounter Care Teams Ply[employer] Layup Line Core Feeder Relationship Specialty Start Date End Date Daja Kern MD [address] [place], [place] [id number] PCP - General Internal Medicine 03/13/15 documented as of this encounter
--- OUTSIDE RECORDS SUMMARY | 2024-03-03 19:26 | XMS_ITS | Encounter Summary ---
Author Organization [employer] Care Team Providers Care Manager Transplant Name Role Phone Daja Kern MD Primary Care Provider [phone] Baron Vergara MD Unavailable Encounter Details Date Type Department Care Team (Latest Contact Info) Description 07/17/2023 Travel Social History Tobacco Use Types Packs/Day Years Used Date Smoking Tobacco: Never Smokeless Tobacco: Never Alcohol Use Standard Drinks/Week Comments No 0 (1 standard drink = 0.6 oz pur e alcohol) [facility] Utilities Answer Date Recorded In the past 12 months has [employer] electric, gas, oil, or water company threatened [...] How often do you attend faith or tenriism serv ices? Patient declined 05/22/2023 Do you [...] care, and heating? Patient declined 05/22/2023 [facility] - Occupational Stress Questionnaire Answer Date [...] st Contact Info) Description 03/27/2024 8:30 AM TRAVEL SALES CONSULTANT [facility] [address] [address] [place] [address] Burt Eastman MD [address] [address] 03/27/2024 8:30 AM TRAVEL SALES CONSULTANT - 03/27/2024 9:00 AM TRAVEL SALES CONSULTANT [facility] [address] [address] [place] [address] Burt Eastman MD [address] [address] COLONOSCOPY 04/09/2024 1:15 PM TRAVEL SALES CONSULTANT Office Visit [facility] - Pulmonology & Sleep Medicine [facility] [address] [place] [address] Baron Vergara MD [address] [place] [address] Scheduled Procedures Name Priority Associated Diagnoses Date/Ti me COLONOSCOPY HISTORY OF COLON POLYPS 03/27/2024 8:30 AM TRAVEL SALES CONSULTANT documented as of this encounter Visit Diagnoses Not on filedocumented in this encounter Additional Health Concerns Infection Onset Date Last Indicated Resolved Time COVID - 19 07/17/2023 07/17/2023 07/17/2023 4:28 PM CDT documented as of this encounter Care Teams Manager Transplant Relationship Specialty Start Date End Date Daja Kern MD [address] [place] [address] PCP - General Internal Medicine 03/13/15 Baron Vergara MD [address] [place] [address] Consulting Physician Pulmonary Disease 06/26/23 documented as of this encounter
--- OUTSIDE RECORDS SUMMARY | 2024-03-03 19:26 | XMS_ITS | Encounter Summary ---
Author Organization [facility] Address [address] [place] [address] Phone Care Team Providers Care Branch Sales Manager Name Role Phone Daja Kern MD Primary Care Provider [phone] Reason for Visit * Reason Onset Date Comments Transition of Care 05/30/2023 Encounter Details Date Type Department Care Team (Late st Contact Info) Description 05/30/2023 Patient Outreach [facility]Care Drug Abuse Social Worker Management [address] [place] [address] Nithya Ruiz RN [place] Transition of Care Social History Tobacco Use Types Packs/Day Years Used Date Smoking Tobacco: Never Smokeless Tobacco: Never Alcohol Use Standard Drinks/Week Comments No 0 (1 standard drink = 0.6 oz pur e alcohol) [facility] Utilities Answer Date Recorded In [...] declined 05/22/2023 How often do you attend jehovah's witness or yazidi serv ices? Patient declined 05/22/2023 Do you belong to any clubs o r organizations such as jehovah's witness groups, unions, fraternal or athletic groups, or [...] medical care, and heating? Patient declined 05/22/2023 [facility] - Occupational Stress Questionnaire Answer Date [...] a fpc (including now)? Patient declined 05/22/2023 Sexually Active Control Partners Comments Yes None Male Comments No Sex and Gender Information Value Date Recorded Sex Assigned at Female 06/02/2023 1:39 AM CDT Legal Sex Female 11:06 PM CDT Gender Identity Female 06/02/2023 1:39 AM CDT Sexual Orientation Straight 06/02/2023 1: 39 AM CDT documented as of this encounter Progress Notes * Nithya Ruiz RN - 05/30/2023 3:18 PM CDT Transition of Care Week #1 - Follow up call Does not met criteria for weekly call, currently back in ER admitted documented in this encounter Plan of Treatment Upcoming Encounters Date Type Department Care Team (Late st Contact Info) Description 03/27/2024 8:30 AM BUSINESS EDUCATION TEACHER [facility] [address] [place] [address] Burt Eastman MD [address] [address] 03/27/2024 8:30 AM BUSINESS EDUCATION TEACHER - 03/27/2024 9:00 AM BUSINESS EDUCATION TEACHER [facility] [address] [address] [place] [address] Burt Eastman MD [address] [address] COLONOSCOPY 04/09/2024 1:15 PM BUSINESS EDUCATION TEACHER [facility] - [place] [address] [place] [address] Baron Vergara MD [address] [place] [address] Scheduled Procedures Name Priority Associated Diagnoses Date/Ti me COLONOSCOPY HISTORY OF COLON POLYPS 03/27/2024 8:30 AM BUSINESS EDUCATION TEACHER documented as of this encounter Visit Diagnoses Not on filedocumented in this encounter Additional Health Concerns Infection Onset Date Last Indicated Resolved Time COVID - 19 05/30/2023 05/30/2023 05/30/2023 2:08 PM CDT documented as of this encounter Care Teams Branch Sales Manager Relationship Specialty Start Date End Date Daja Kern MD [address] [place] [address] PCP - General Internal Medicine 03/13/15 documented as of this encounter
--- OUTSIDE RECORDS SUMMARY | 2024-03-03 19:26 | XMS_ITS | Encounter Summary ---
Author Organization [facility] Address [address] [place] [address] Phone Care Team Providers Care Glazier Apprentice Name Role Phone Daja Carballo MD Primary Care Provider [phone] Baron Vergara MD Unavailable Reason for Visit * Reason Comments Depression Encounter Details Date Type Department Care Team (Late st Contact Info) Description 08/13/2023 2:45 PM CDT - 08/14/2023 12:15 AM CDT Emergency [facility] Emergency [address] [place] [address] Mathew Pringle, ASSISTANT TEACHER, RN HOME CARE #1 [place] [address] Sushil Justin, DO [address] [place] [address] Suicidal ideations Discharge Disposition: Dis/Trans to Psych Hosp/Psych Unit Social History Tobacco Use Types Packs/Day Years [...] How often do you attend samaritan or pentecostal serv ices? Patient declined 05/22/2023 Do you [...] medical care, and heating? Patient declined 05/22/2023 [facility] - Occupational [...] place to sleep or slept in a detention (including now)? Patient declined 05/22/2023 Sexually Active [...] Sign Reading Time Taken Comments Blood Pressure 142/57 08/13/2023 9:36 PM CDT Pulse 97 08/13/2023 9:36 PM CDT Temperature 36.7 ??C (98.1 ??F) 08/13/2023 2:52 PM CD T Respiratory Rate 16 08/13/2023 9:36 PM CDT Oxygen Saturation 96% 08/13/2023 9:36 PM CDT Inhaled Oxygen Concentration - - Weight 127 kg (280 lb) 08/13/2023 2:52 PM CDT Height 157.5 cm (5' 2 ) 08/13/2023 2:52 PM CDT Body Mass Index 51.21 08/13/2023 2:52 PM CDT documented in this encounter Medications [...] as of this encounter ED Notes * Kit Gan RN - 08/14/2023 12:10 AM CDT Patient transferred, transfer instructions and patient educational material reviewed with patient; questions and concerns addressed; patient verbalizes understanding, using teach back. Patient transferred via stretcher with [facility] as responsible republican. Pt alert and oriented x 4 with respirations even and unlabored at at time of transfer. Belongings sent with EMS * Lachelle Higgins - 08/13/2023 11:48 PM CDT CALLED [facility] TO ARRANGE TRANSPORT TO [facility], THEY ACCEPTED. * Kit Gan RN - 08/13/2023 11:44 PM CDT Report given to Angela @ [facility]. C/o Dr Pollard to room 205 bed A * Kit Gan RN - 08/13/2023 11:03 PM CDT Spoke with Milind from [facility], who said there was no new updates at this time. * Kit Gan RN - 08/13/2023 10:29 PM CDT Pt medicated per provider orders. Pt educated on intended effects and side effects of medication and verbalized understanding, able to provide teach back of education. 1 to 1 obs cont * Kit Gan RN - 08/13/2023 9:32 PM CDT Love rodriguez [facility] called requesting further documentation. 1 to 1 obs cont * Sushil Justin DO - 08/13/2023 8:43 PM CDT 8:43 PM CDT I personally examined the patient, confirmed the history as documented in the chart by the residentphysician, reviewed orders and results, and discussed the plan with the resident provider and the patient. Physical Exam Vitals and nursing note reviewed. Constitutional: General: she is not in acute distress. Over nourished, positive SI, no family at the bedside. Appearance: she is well-developed. He is not diaphoretic. HENT: Head: Normocephalic and atraumatic. Right Ear: External ear normal. Left Ear: External ear normal. Eyes: General: No scleral icterus. Conjunctiva/sclera: Conjunctivae normal. Pupils: Pupils are equal, [...] soft. Tenderness: There is no abdominal tenderness. There is no guarding or rebound. Musculoskeletal: General: Normal range of motion. Cervical back: Normal range of motion. Skin: General: Skin is warm and dry. Neurological: Mental Status: she is alert and oriented to person, place, and time. Cranial Nerves: No cranial nerve deficit. Coordination: Coordination normal. Urine Drug Screen Final Result Urinalysis with Reflex if Indicated Final Result Ur Test Qual Final Result Complete Blood Count (CBC) WITH Diff Final Result CMP (Comprehensive Metabolic Panel) Final Result ETOH Level Final Result Magnesium (MG) Final Result Thyroid Stimulating Hormone (TSH) Final Result Acetaminophen Level Final Result Salicylate Level Final Result EKG 12 LEAD (Results Pending) Labs Reviewed CMP (COMPREHENSIVE METABOLIC PANEL) - Abnormal; Notable for the following components: Result Value GLUCOSE 188 (*) All other components within normal limits URINE DRUG SCREEN - Abnormal; Notable for the following components: UR COCAINE METABOLITE DETECTED (*) All other components within normal limits URINALYSIS REFLEX IF INDICATED BY ABNORMAL RESULTS - Abnormal; Notable for the following components: WBC ESTERASE 100 /uL (*) PROTEIN, RANDOM URINE 30 mg/dL (*) URINE KETONES 5 mg/dL (*) URINE BLOOD 10 /uL (*) WBC (Urine) 11-20 (*) BACTERIA, URINE Moderate (*) All other components within normal limits ACETAMINOPHEN (TYLENOL) - Abnormal; Notable for the following components: ACETAMINOPHEN <3 (*) All other components within normal limits SALICYLATE LEVEL - Abnormal; Notable for the following components: SALICYLATE <5.0 (*) All other components within normal limits POCT GLUCOSE - Abnormal; Notable for the following components: GLUCOSE,BEDSIDE POCT 159 (*) All other components within normal limits CBC WITH AUTO DIFFERENTIAL - Abnormal; Notable for the following components: NEUTROPHILS 73.8 (*) All other components within normal limits SARS-COV-2 BY MOLECULAR - Normal Narrative: Authorized Fact Sheets about this test for providers and patients are available at: https://www.fda. gov/medical-devices/tfyzpbkgi-drcripljvy-ayqioel-devices/qdcsuvrgw-yey-rmbnsjlak tions ETHYL ALCOHOL (ETHANOL) - Normal MAGNESIUM (MG) - Normal THYROID STIMULATING HORMONE (TSH) - Normal CULTURE, URINE COMPLETE BLOOD COUNT (CBC) WITH DIFF Narrative: The following orders were created for panel order Complete Blood Count (CBC) WITH Diff. Procedure Abnormality Status --------- ------ CBC with Auto Differential[[id number]] Abnormal Final result Please view results for these tests on the individual orders. UR TEST QUAL In reviewing the patient's chart, their primary care doctor is DAJA CARBALLO MD. I have reviewed the available labs, imaging, and nursing notes. Consults: See CRIMINAL COURT JUDGE/PA note A significant amount of the patient's care has been done by myself MDM: Transfer to [facility] for psych eval under Dr. pollard's care Disposition: transfer My clinical impression of the patient is: Diagnosis includes: No diagnosis found. Sushil Justin D.O. Emergency/Tactical Medicine * Eliana Carter RN - 08/13/2023 8:34 PM CDT Love with [facility] called stating that their last adult female bed has been filled and they no longer have any beds available at this time. Love states she will begin the referral and place patient on the wait list with the intention of a possible open bed in the morning. Informed Love that we will call back to cancel the referral if patient gets accepted elsewhere. * Kit Gan RN - 08/13/2023 7:51 PM CDT Pt on phone with [facility] for possible admission. * Yulia Kemp RN - 08/13/2023 7:20 PM CDT Pt medicated per provider orders. Pt educated on intended effects and side effects of medication and verbalized understanding, able to provide teach back of education. Patient crying/sobbing while RN in room, Patient abruptly stopped and stated, what about dinner Patient educated cafe is closed, and RN will be informed and sandwich/chips to be provided. * Mili De La Garza RN - 08/13/2023 7:00 PM CDT Faxed information to [facility]. * Kit Gan RN - 08/13/2023 5:37 PM CDT Pt medicated per provider orders. Pt educated on intended effects and side effects of medication and verbalized understanding, able to provide teach back of education. 1 to 1 obs cont * Kit Gan RN - 08/13/2023 4:38 PM CDT Pt resting quietly on cart. Sleeping at intervals, easily arousable. Cooperative.Denies C/O at present. Bathroom and nutrition offered. Continuous visualization via sitter. * Mathew Pringle APRN, RN HOME CARE - 08/13/2023 3:59 PM CDT Chief Complaint Patient presents with Depression Patient presents for evaluation depression suicidal ideations. She states she has felt depressed for several weeks. She has a history of bipolar disorder and states that she has not taken her medications for the past dew days. She is on extended released injectable abilify, trazodone and another unknown medication. She states she has contemplated taking a large amount of medication or laying downin traffic in order to hurt herself. Today she was taking a cab from her friend's house back to herresidence and informed the cable swager that she was feeling suicidal ideations. The cable swager took her to the police station, at which time they contacted EMS, who brought her to the hospital for further evaluation. She reports hearing voices over the past few weeks that have been telling her that she is no good . She smoked crack yesterday and states that could be contributing to her current symptoms. She does not drink ETOH. Depression Presenting symptoms: hallucinations and suicidal thoughts Presenting symptoms: no agitation Associated symptoms: anxiety Associated symptoms: no abdominal pain, no chest pain, no fatigue and no headaches No current facility-administered medications for this encounter. Current Outpatient Medications Medication Sig Dispense Refill albuterol (PROVENTIL, VENTOLIN) (2.5 MG/3ML) 0.083% Nebulizer Soln 3 mL by Nebulization route every6 hours as needed for Wheezing. 360 mL 0 ALBUTEROL IN take by inhalation. ARIPiprazole extended release (Abilifbritta Maintena) 400 MG [...] not use cpap SBO (small bowel obstruction) ([facility]) 09/2018 Vitamin D deficiency Past Surgical History: Procedure Laterality Date SECTION 1994 CHOLECYSTECTOMY [address] [facility] (Does not remember the ) COLONOSCOPY N/A 11/16/2018 Procedure: COLONOSCOPY - POLYPS, BIOPSIES; Surgeon: Damian Gallardo DO; Location: [facility] GI LAB; Service: Gastroenterology EGD 2012? [facility] UPPER GASTROINTESTINAL ENDOSCOPY N/A 02/06/2019 Procedure: EGD, SMALL BOWEL BIOSY, GASTRIC POLYP, SAMANTHA TEST; Surgeon: Damian Glalardo DO; Location: [facility] GI LAB; Service: Gastroenterology WISDOM TOOTH EXTRACTION 1992 4 wisdom teeth removed. Social History Socioeconomic [...] Session: Patient declined Stress: Patient Declined (05/22/2023) [facility] - Occupational Stress Questionnaire Feeling of Stress : Patient declined Social Integration: Patient Declined (05/22/2023) Social Connection and Isolation Panel [NHANES] Frequency of Communication with Friends and Family: Patient declined Frequency of Social Gatherings with Friends and Family: Patient declined Attends Episcopalian Services: Patient declined Active Member of Clubs [...] the Last Year: Patient declined BP (!) 128/92 Pulse 97 Temp 98.1 ??F (36.7 ??C) (Tympanic) Resp 18 Ht 5' 2 (1.575 m) Wt 280 lb (127 kg) LMP 11/12/2019 SpO2 97% BMI 51.21 kg/m?? Review of Systems Constitutional: Negative for activity change, chills, diaphoresis, fatigue and fever. HENT: Negative for congestion, dental problem, drooling, ear discharge, ear pain, facial swelling, mouth sores, rhinorrhea, sinus pressure, sneezing, sore throat, tinnitus and trouble swallowing. Eyes: Negative for photophobia, pain, discharge, redness, itching and visual disturbance. Respiratory: Negative for cough, chest tightness, shortness of breath, wheezing and stridor. Cardiovascular: Negative for chest pain, palpitations and leg swelling. Gastrointestinal: Negative for abdominal distention, abdominal pain, blood in stool, constipation, diarrhea, nausea and vomiting. Endocrine: Negative for cold intolerance, heat intolerance, polydipsia, polyphagia and polyuria. Genitourinary: Negative for decreased urine volume, difficulty urinating, dysuria, flank pain, frequency, hematuria, menstrual problem, pelvic pain, urgency, vaginal bleeding, vaginal discharge and vaginal pain. Musculoskeletal: Negative for arthralgias, back pain, gait problem, joint swelling, myalgias and neck pain. Skin: Negative for color change, pallor, rash and wound. Allergic/Immunologic: Negative for immunocompromised state. Neurological: Negative for dizziness, tremors, seizures, speech difficulty, weakness, light-headedness, numbness and headaches. Hematological: Negative for adenopathy. Does not bruise/bleed easily. Psychiatric/Behavioral: Positive for hallucinations and suicidal ideas. Negative for agitation, confusion and decreased concentration. The patient is nervous/anxious. Physical Exam Vitals and nursing note reviewed. Constitutional: General: She is not in acute distress. Appearance: She is well-developed. She is not diaphoretic. HENT: Head: Normocephalic and atraumatic. Right Ear: External ear normal. Left Ear: External ear normal. Nose: Nose normal. Mouth/Throat: Pharynx: No oropharyngeal exudate. Eyes: General: No scleral icterus. Right eye: No discharge. Left eye: No discharge. Conjunctiva/sclera: Conjunctivae normal. Pupils: Pupils are equal, round, and reactive to light. Neck: Thyroid: No thyromegaly. Vascular: No JVD. Trachea: No tracheal deviation. Cardiovascular: Rate and Rhythm: Normal rate and regular rhythm. Heart sounds: Normal heart sounds. No murmur heard. No friction rub. No gallop. Pulmonary: Effort: Pulmonary effort is normal. No respiratory distress. Breath sounds: Normal breath sounds. No stridor. No wheezing or rales. Chest: Chest wall: No tenderness. Abdominal: General: Bowel sounds are normal. There is no distension. Palpations: Abdomen is soft. There is no mass. Tenderness: There is no abdominal tenderness. There is no guarding or rebound. Musculoskeletal: General: No tenderness. Normal range of motion. Cervical back: Normal range of motion and neck supple. Lymphadenopathy: Cervical: No cervical adenopathy. Skin: General: Skin is warm and dry. Coloration: Skin is not pale. Findings: No erythema or rash. Neurological: Mental Status: She is alert and oriented to person, place, and time. Cranial Nerves: No cranial nerve deficit. Motor: No abnormal muscle tone. Coordination: Coordination normal. Deep Tendon Reflexes: Reflexes are normal and symmetric. Reflexes normal. Psychiatric: Behavior: Behavior normal. Thought Content: Thought content normal. Judgment: Judgment normal. Comments: Intermittently tearful Procedures EKG: Conducted at 1510 showed NSR, rate 95, LVH, nonspecific ST and T wave changes Recent Results (from the past 24 hour(s)) POCT Glucose Result Value Ref Range GLUCOSE,BEDSIDE POCT 159 (H) 70 - 99 mg/dL CMP (Comprehensive Metabolic Panel) Result Value Ref Range SODIUM 139 136 - 145 mmol/L POTASSIUM 3.6 3.5 - 5.1 mmol/L CHLORIDE 104 98 - 107 mmol/L CO2, VENOUS 23 22 - 30 mmol/L ANION GAP 15.6 <18.0 mmol/L GLUCOSE 188 (H) 70 - 99 mg/dL BUN 12 10 - 20 mg/dL CREATININE, BLOOD 0.82 0.60 - 1.00 mg/dL BUN/CREATININE RATIO 15 12 - 20 ratio TOTAL PROTEIN 7.1 6.3 - 8.2 g/dL ALBUMIN 3.8 3.5 - 5.0 g/dL A/G RATIO 1.2 1.0 - 2.2 CALCIUM 9.6 8.7 - 10.5 mg/dL T BILI 0.4 0.2 - 1.2 mg/dL SGOT (AST) 19 5 - 34 U/L SGPT (ALT) 31 0 - 55 U/L ALKALINE PHOSPHATASE 80 40 - 150 U/L GFR, ESTIMATED >60 >=60 GFR, EST. >60 >=60 GFR, EST. NONAFRICAN >60 >=60 ETOH Level Result Value Ref Range ETHANOL <10 <10 mg/dL Magnesium (MG) Result Value Ref Range MAGNESIUM 1.7 1.6 - 2.6 mg/dL Thyroid Stimulating Hormone (TSH) Result Value Ref Range TSH 1.105 0.300 - 5.000 mIU/L Acetaminophen Level Result Value Ref Range ACETAMINOPHEN <3 (L) 10 - 30 mcg/mL Salicylate Level Result Value Ref Range SALICYLATE <5.0 (L) 15.0 - 30.0 mg/dL CBC with Auto Differential Result Value Ref Range WBC 8.76 4.00 - 12.00 10(3)/mcL RBC 4.58 3.80 - 5.30 10(6)/mcL HEMOGLOBIN (HGB) 13.6 12.0 - 15.8 g/dL HEMATOCRIT (HCT) 42.8 36.0 - 47.0 % MCV 93.4 82.0 - 96.0 fL MCH 29.7 26.0 - 34.0 pg MCHC 31.8 31.0 - 36.0 g/dL PLATELET COUNT 243 140 - 440 10(3)/mcL RDW 13.5 11.8 - 15.5 % MPV 12.0 9.7 - 12.4 fL NEUTROPHILS 73.8 (H) 47.0 - 73.0 % LYMPHOCYTES 19.1 18.0 - 42.0 % MONOCYTES 4.7 4.0 - 12.0 % EOSINOPHILS 2.1 0.0 - 5.0 % BASOPHILS 0.3 0.0 - 1.0 % ABSOLUTE NEUTROPHILS 6.47 1.60 - 7.70 10(3)/mcL ABSOLUTE LYMPHOCYTES 1.67 1.30 - 3.20 10(3)/mcL ABSOLUTE MONOCYTES 0.41 0.20 - 1.00 10(3)/mcL ABSOLUTE EOSINOPHIL 0.18 0.00 - 0.40 10(3)/mcL ABSOLUTE BASOPHILS 0.03 0.00 - 0.10 10(3)/mcL NRBC PER 100 WBC 0 SARS-COV-2 BY MOLECULAR Specimen: Nasal; Other Result Value Ref Range SARSCOV2 NOT DETECTED (Reference Range for this test is Not Detected) Urine Drug Screen Result Value Ref Range UR AMPHETAMINE NON DETECTED NON DETECTED UR BENZODIAZEPINES NON DETECTED NON DETECTED UR COCAINE METABOLITE DETECTED (A) NON DETECTED UR OPIATES NON DETECTED NON DETECTED UR PHENCYCLIDINE NON DETECTED NON DETECTED UR CANNABINOID NON DETECTED NON DETECTED UR BARBITURATE NON DETECTED NON DETECTED Urinalysis with Reflex if Indicated Result Value Ref Range SPECIFIC GRAVITY 1.015 1.003 - 1.030 URINE PH 6.0 5.0 - 9.0 WBC ESTERASE 100 /uL (A) Negative NITRITE Negative Negative PROTEIN, RANDOM URINE 30 mg/dL (A) Negative URINE GLUCOSE, QUAL Negative Negative URINE KETONES 5 mg/dL (A) Negative UROBILINOGEN Normal Normal mg/dL URINE BLOOD 10 /uL (A) Negative dylan/ul URINALYSIS COLOR Yellow URINALYSIS CLARITY Slightly Cloudy WBC (Urine) 11-20 (A) Negative, 0-5 /hpf URINE RBC'S 0-2 Negative, 0-2 /hpf EPITHELIAL CELLS Large amount squamous /lpf BACTERIA, URINE Moderate (A) Negative /hpf Ur Test Qual Result Value Ref Range PREG TEST,MONOCLONAL Negative Imaging Results None Medical Decision Making Clinical Impression 1. Suicidal ideations Disposition: No Disposition Selected 2030 this is a 52-year-old female presented for evaluation suicidal ideations. She was medically cleared. She had some bacteria, WBC and leukocyte esterase in her urine however there were a large amount of squamous cells present. She was given ativan in the ER for anxiety. I have discussed all relevant facts of case with Dr Justin, who is in agreement with plans for transfer for psychiatric pertaining to suicidal ideations. Case endorsed to Dr Justin at the end of my shift. Placement pending. Cosigned by Sushil Justin DO at 08/13/2023 9:43 PM CDT * Kit Gan, RN - 08/13/2023 3:31 PM CDT Restriction Of Rights I have directly observed, and/or obtained history from pt who states that she wished to go to sleepand not wake up, pt states that she would accomplish this by taking pills . Because of these behaviors, I have ordered the restriction of rights to include (LIST ALL) Searching of the patient's personal property or removing belongings and Retaining personal property. I have explained the restriction of right to the patient, ensured completion of the Notice Regarding Restriction of Rights of Individual Form, and given the form to Patient. * Lisandro Cardoza RN - 08/13/2023 3:18 PM CDT Pt's belongings placed in locker # 5. * Kit Gan RN - 08/13/2023 2:46 PM CDT Pt to ER room 5b via afd ems w/c/o depression and statements of self harm heard today by cable swager, who then dropped her off at the police station. Pt states that she Just wants to lay down and . Pt states that she has previous hospitalizations for depression but is unsure about her last doseof psychiatric medication. * Wendy Mobley - 08/13/2023 2:45 PM CDT Bed: [place] [address] Expected date: 08/13/23 Expected time: 2:39 PM Means of arrival: Ambulance (AFD) Comments: AFD 52F SUICIDAL documented in this encounter Miscellaneous Notes * Restraint / Restriction of Rights - Mathew Pringle, ADELFO, RN HOME CARE - 08/13/2023 7:11 PM CDT Restriction of Rights Documentation: Restriction of rights were ordered based on behaviors directly observed, and/or history obtained from patient, who directly observed the following behaviors exhibited by Alona Kemp. Patient behaviors: Patient attempting to harm self Because of these behaviors, Restriction of Rights have been ordered with the following details for the time frame identified on the form. Restriction of Rights Order Details (From admission, onward) Ordered 08/13/23 1451 Restriction of Rights ONE TIME, Discontinued: -- Question Answer Comment Other Restrictions To retain personal property Other Restrictions To refuse search of person or living area The restriction of right(s) have been explained to the Patient, who participated in and understand the decision to restrict the right(s) listed above. documented in this encounter Plan of Treatment Upcoming Encounters Date Type Department Care Team (Late st Contact Info) Description 03/27/2024 8:30 AM CAR SUPPLIER Hospital Encounter [facility] Gi Lab Periop [address] [place] [address] Burt Eastman MD [address] [address] 03/27/2024 8:30 AM CAR SUPPLIER - 03/27/2024 9:00 AM CAR SUPPLIER [facility] Periop [address] [place] [address] Burt Eastman MD [address] [address] COLONOSCOPY 04/09/2024 1:15 PM CAR SUPPLIER Office Visit [facility] - Pulmonology & Sleep Medicine [facility] [address] [place] [address] Baron Vergara MD [address] [place] [address] Scheduled Procedures Name Priority Associated Diagnoses Date/Ti me COLONOSCOPY HISTORY OF COLON POLYPS 03/27/2024 8:30 AM CAR SUPPLIER documented as of this encounter Procedures Procedure Name Priority Date/Time Associated Diagnosis Comments POCT GLUCOSE STAT 08/13/2023 10:28 PM CDT URINALYSIS REFLEX IF INDICATED BY ABNORMAL RESULTS STAT 08/13/2023 4:50 PM CDT UR TEST QUAL STAT 4:50 PM CDT CULTURE, URINE STAT 08/13/2023 4:50 PM CDT URINE DRUG SCREEN STAT 08/13/2023 4:5 0 PM CDT SARS-COV-2 BY MOLECULAR STAT 08/13/2023 3:19 PM CDT CBC WITH AUTO DIFFERENTIAL STAT 08/13/2023 3:19 PM CDT ACETAMINOPHEN (TYLENOL) STAT 08/13/2023 3:19 PM CDT THYROID STIMULATING HORMONE (TSH) STAT 08/13/2023 3:19 PM CDT SALICYLATE LEVEL STAT 08/13/2023 3:19 PM CDT MAGNESIUM (MG) STAT 08/13/2023 3:19 PM CDT ETHYL ALCOHOL (ETHANOL) STAT 08/13/2023 3:19 PM CDT CMP (COMPREHENSIVE METABOLIC PANEL) STAT 08/13/2023 3:19 PM CDT COMPLETE BLOOD COUNT (CBC) WITH DIFF STAT 08/13/2023 3:19 PM CDT POCT GLUCOSE STAT 08/13/2023 3:12 PM CDT EKG 12 LEAD STAT 08/13/2023 3:10 PM CDT EKG SCAN 08/13/2023 12:00 AM CDT documented in this encounter Results * (ABNORMAL) POCT Glucose (08/13/2023 10:28 PM CDT) Only the most recent of2 resultswithin the time period is included. GLUCOSE,BEDSID E POCT 167(H) 70 - 99 mg/dL 08/13/2023 10:36 PM CDT [facility] Comment: Patient RN Performed RAPOFF Blood 08/13/2023 10:2 8 PM CDT 08/13/2023 10:36 PM CDT us None Provider POINT OF CARE TESTING Final Resu lt Performing Organization Address City/[facility]/ZIP Co de Phone Number [facility] [address] [place] [address] * Ur Test Qual (08/13/2023 4:50 PM CDT) PREG TEST,MONOCLONA L Negative 08/13/2023 7:57 PM CDT [facility] Urine Non-Phlebotomy Collection / Unknown 08/13/2023 4:50 PM CDT 08/13/2023 4:50 PM CDT us Mathew Pringle APRN, CNP URINE ORDERABLES Final Result Performing Organization Address [facility] Co de Phone Number [facility] [address] [place] [address] * Culture, Urine (08/13/2023 4:50 PM CDT) CULTURE RESULTS MIXED GROWTH OF ONE OR MORE DISTAL URETHRAL CONTAMINANTS 08/15/2023 3:15 PM CDT [facility] Urine URINE SPECIMEN / Unknown Non-Phlebotomy Collection / Unknown 08/13/2023 4:50 PM CDT 08/13/2023 4:50 PM CDT us Cameron Aguilera MD MICROBIOLOGY - GENERAL ORD ERABLES Final Result Performing Organization Address City/[facility]/ZIP Co de Phone Number [facility] [address] [place] [address], [place] * (ABNORMAL) Urinalysis with Reflex if Indicated (08/13/2023 4:50 PM CDT) SPECIFIC GRAVITY 1.015 1.003 - 1.030 08/13/2023 5:12 PM CDT [facility] URINE PH 6.0 5.0 - 9.0 08/13/2023 5:12 PM CDT [facility] WBC ESTERASE 100 /uL(A) Negative 08/13/2023 5:12 PM CDT [facility] NITRITE Negative Negative 08/13/2023 5:12 PM CDT [facility] PROTEIN, RANDOM URINE 30 mg/dL(A) Negative 08/13/2023 5:12 PM CDT [facility] URINE GLUCOSE, QUAL Negative Negative 08/13/2023 5:12 PM CDT [facility] URINE KETONES 5 mg/dL(A) Negative 08/13/2023 5:12 PM CDT [facility] UROBILINOGEN Normal Normal mg/dL 08/13/2023 5:12 PM CDT [facility] URINE BLOOD 10 /uL(A) Negative dylan/ul 08/13/2023 5:12 PM CDT [facility] URINALYSIS COLOR Yellow 08/13/19 24 5:12 PM CDT [facility] URINALYSIS CLARITY Slightly Cloudy 08/13/2023 5:12 PM CDT [facility] WBC (Urine) 11-20(A) Negative, 0-5 /hpf 08/13/2023 5:12 PM CDT [facility] URINE RBC'S 0-2 Negative, 0-2 /hpf 08/13/2023 5:12 PM CDT [facility] EPITHELIAL CELLS Large amount squamous /lpf 08/13/2023 5:12 PM CDT [facility] BACTERIA, URINE Moderate(A) Negative /hpf 08/13/2023 5:12 PM CDT [facility] Urine URINE SPECIMEN / Unknown Non-Phlebotomy Collection / Unknown 08/13/2023 4:50 PM CDT 08/13/2023 4:50 PM CDT us Cameron Aguilera MD URINE ORDERABLES Final Res ult [facility] [address] [place] [address] * (ABNORMAL) Urine Drug Screen (08/13/2023 4:50 PM CDT) UR AMPHETAMINE NON DETECTED NON DETECTED 08/13/2023 5:07 PM CDT [facility] Comment: FOR MEDICAL USE ONLY. CUTOFF CONCENTRATION FOR DETECTED RESULT: AMPHETAMINE: ??500 NG/ML UR BENZODIAZEPINES NON DETECTED NON DETECTED 08/13/2023 5:07 PM CDT [facility] Comment: FOR MEDICAL USE ONLY. CUTOFF CONCENTRATION FOR DETECTED RESULT: BENZODIAZAPINE: ??200 NG/ML UR COCAINE METABOLITE DETECTED(A) NON DETECTED 08/13/2023 5:07 PM CDT [facility] Comment: FOR MEDICAL USE ONLY. CUTOFF CONCENTRATION FOR DETECTED RESULT: COCAINE: ??150 NG/ML UR OPIATES NON DETECTED NON DETECTED 08/13/2023 5:07 PM CDT [facility] Comment: FOR MEDICAL USE ONLY. CUTOFF CONCENTRATION FOR DETECTED RESULT: OPIATES: ? 300 NG/ML UR PHENCYCLIDINE NON DETECTED NON DETECTED 08/13/2023 5:07 PM CDT [facility] Comment: FOR MEDICAL USE ONLY. CUTOFF CONCENTRATION FOR DETECTED RESULT: PCP: ? 25 NG/ML UR CANNABINOID NON DETECTED NON DETECTED 08/13/2023 5:07 PM CDT [facility] Comment: FOR MEDICAL USE ONLY. CUTOFF CONCENTRATION FOR DETECTED RESULT: THC (MARIJUANA): 50 NG/ML UR BARBITURATE NON DETECTED NON DETECTED 08/13/2023 5:07 PM CDT [facility] Comment: FOR MEDICAL USE ONLY. CUTOFF CONCENTRATION FOR DETECTED RESULT: BARBITUATES: ? 200 NG/ML Urine Non-Phlebotomy Collection / Unknown 08/13/2023 4:50 PM CDT 08/13/2023 4:50 PM CDT Result [facility] Cameron Aguilera MD URINE ORDERABLES Final Res ult Performing Organization Address [facility] Co de Phone Number [facility] [address] [place] [address] * SARS-COV-2 BY MOLECULAR (08/13/2023 3:19 PM CDT) Pathologist [facility] SARSCOV2 NOT DETECTED (Referenc e Range for this test is Not Detected) 08/13/2023 3:59 PM CDT [facility] Comment:This test was perfor med by a Reverse Welder [employer] PCR Method. Other NASOPHARYNGEAL SWAB / Unknown Non-Phlebotomy Collection / Unknown 08/13/2023 3:19 PM CDT 08/13/2023 3:19 PM CDT Narrative [facility] - 08/13/2023 3:59 PM CDT Authorized Fact Sheets about this test for providers and patients are available at: https://www.fda.gov/medical-devices/qncsqoimh-edaiavnefp-wgajssr-devices/emergen -us e-authorizations Result [facility] Cameron Aguilera MD MICROBIOLOGY - GENERAL ORD ERABLES Final Result Performing Organization Address City/[facility]/ZIP Co de Phone Number [facility] [address] [place] [address] * (ABNORMAL) CBC with Auto Differential (08/13/2023 3:19 PM CDT) WBC 8.76 4.00 - 12.00 10(3)/mcL 08/13/2023 3:22 PM CDT [facility] RBC 4.58 3.80 - 5.30 10(6)/mcL 08/13/2023 3:22 PM CDT [facility] HEMOGLOBIN (HGB) 13.6 12.0 - 15.8 g/dL 08/13/2023 3:22 PM CDT [facility] HEMATOCRIT (HCT) 42.8 36.0 - 47.0 % 08/13/2023 3:22 PM CDT [facility] MCV 93.4 82.0 - 96.0 fL 08/13/2023 3:22 PM CDT [facility] MCH 29.7 26.0 - 34.0 pg 08/13/2023 3:22 PM CDT [facility] MCHC 31.8 31.0 - 36.0 g/dL 08/13/2023 3:22 PM CDT [facility] PLATELET COUNT 243 140 - 440 10(3)/mcL 08/13/2023 3:22 PM CDT [facility] RDW 13.5 11.8 - 15.5 % 08/13/2023 3:22 PM CDT [facility] MPV 12.0 9.7 - 12.4 fL 08/13/2023 3:22 PM CDT [facility] NEUTROPHILS 73.8(H) 47.0 - 73.0 % 08/13/2023 3:22 PM CDT [facility] LYMPHOCYTES 19.1 18.0 - 42.0 % 08/13/2023 3:22 PM CDT [facility] MONOCYTES 4.7 4.0 - 12.0 % 08/13/2023 3:22 PM CDT [facility] EOSINOPHILS 2.1 0.0 - 5.0 % 08/13/2023 3:22 PM CDT [facility] BASOPHILS 0.3 0.0 - 1.0 % 08/13/2023 3:22 PM CDT [facility] ABSOLUTE NEUTROPHILS 6.47 1.60 - 7.70 10(3)/mcL 08/13/2023 3:22 PM CDT [facility] ABSOLUTE LYMPHOCYTES 1.67 1.30 - 3.20 10(3)/mcL 08/13/2023 3:22 PM CDT [facility] ABSOLUTE MONOCYTES 0.41 0.20 - 1.00 10(3)/mcL 08/13/2023 3:22 PM CDT [facility] ABSOLUTE EOSINOPHIL 0.18 0.00 - 0.40 10(3)/mcL 08/13/2023 3:22 PM CDT [facility] ABSOLUTE BASOPHILS 0.03 0.00 - 0.10 10(3)/mcL 08/13/2023 3:22 PM CDT [facility] NRBC PER 100 WBC 0 08/13/19 3:22 PM CDT [facility] Blood Venipuncture / Unknown 08/13/2023 3:19 PM CDT 08/13/2023 3:19 PM CDT Cameron Aguilera MD HEMATOLOGY ORDERABLES Radha l Result Performing Organization Address City/[facility]/ZIP Co de Phone Number [facility] [address] [place] [address] * (ABNORMAL) Salicylate Level (08/13/2023 3:19 PM CDT) SALICYLATE <5.0(L) 15.0 - 30.0 mg/dL 08/13/2023 3:48 PM CDT [facility] Blood Venipuncture / Unknown 08/13/2023 3:19 PM CDT 08/13/2023 3:19 PM CDT Cameron Aguilera MD CHEMISTRY ORDERABLES Final Result Performing Organization Address City/[facility]/ZIP Co de Phone Number [facility] [address] [place] [address] * (ABNORMAL) Acetaminophen Level (08/13/2023 3:19 PM CDT) ACETAMINOPHEN <3(L) 10 - 30 mcg/mL 08/13/2023 3:53 PM CDT [facility] Blood Venipuncture / Unknown 08/13/2023 3:19 PM CDT 08/13/2023 3:19 PM CDT Cameron Aguilera MD CHEMISTRY ORDERABLES Final Result Performing Organization Address City/[facility] Co de Phone Number [facility] [address] [place] [address] * Thyroid Stimulating Hormone (TSH) (08/13/2023 3:19 PM CDT) TSH 1.105 0.300 - 5.000 mIU/L 08/13/2023 4:04 PM CDT [facility] Blood Venipuncture / Unknown 08/13/2023 3:19 PM CDT 08/13/2023 3:19 PM CDT Cameron Aguilera MD CHEMISTRY ORDERABLES Final Result Performing Organization Address [facility] Co de Phone Number [facility] [address] [place] [address] * Magnesium (MG) (08/13/2023 3:19 PM CDT) Pathologist [facility] MAGNESIUM 1.7 1.6 - 2.6 mg/dL 08/13/2023 3:48 PM CDT [facility] Blood Venipuncture / Unknown 08/13/2023 3:19 PM CDT 08/13/2023 3:19 PM CDT Cameron Aguilera MD CHEMISTRY ORDERABLES Final Result Performing Organization Address City/[facility] Co de Phone Number [facility] [address] [place] [address] * ETOH Level (08/13/2023 3:19 PM CDT) ETHANOL <10 <10 mg/dL 08/13/2023 3:4 8 PM CDT [facility] Blood Venipuncture / Unknown 08/13/2023 3:19 PM CDT 08/13/2023 3:19 PM CDT us Cameron Aguilera MD CHEMISTRY ORDERABLES Final Result [facility] [address] [place] [address] * (ABNORMAL) CMP (Comprehensive Metabolic Panel) (08/13/2023 3:19 PM CDT) Pathologist [facility] SODIUM 139 136 - 145 mmol/L 08/13/2023 3:48 PM CDT [facility] POTASSIUM 3.6 3.5 - 5.1 mmol/L 08/13/2023 3:48 PM CDT [facility] CHLORIDE 104 98 - 107 mmol/L 08/13/2023 3:48 PM CDT [facility] CO2, VENOUS 23 22 - 30 mmol/L 08/13/2023 3:48 PM CDT [facility] ANION GAP 15.6 <18.0 mmol/L 08/13/2023 3:48 PM CDT [facility] GLUCOSE 188(H) 70 - 99 mg/dL 08/13/2023 3:48 PM CDT [facility] BUN 12 10 - 20 mg/dL 08/13/2023 3:48 PM CDT [facility] CREATININE, BLOOD 0.82 0.60 - 1.00 mg/dL 08/13/2023 3:48 PM CDT [facility] BUN/CREATININE RATIO 15 12 - 20 ratio 08/13/2023 3:48 PM CDT [facility] TOTAL PROTEIN 7.1 6.3 - 8.2 g/dL 08/13/2023 3:48 PM CDT [facility] ALBUMIN 3.8 3.5 - 5.0 g/dL 08/13/2023 3:48 PM CDT [facility] A/G RATIO 1.2 1.0 - 2.2 08/13/2023 3:48 PM CDT [facility] CALCIUM 9.6 8.7 - 10.5 mg/dL 08/13/2023 3:48 PM CDT [facility] T BILI 0.4 0.2 - 1.2 mg/dL 08/13/2023 3:48 PM CDT [facility] SGOT (AST) 19 5 - 34 U/L 08/13/2023 3:48 PM CDT [facility] SGPT (ALT) 31 0 - 55 U/L 08/13/2023 3:48 PM CDT [facility] ALKALINE PHOSPHATASE 80 40 - 150 U/L 08/13/2023 3:48 PM CDT [facility] GFR, ESTIMATED >60 >=60 08/13/2023 3:48 PM CDT [facility] Comment: Creatinine Clearance is the preferred criteria for selecting drug dose adjustments in renally impaired patients. ??The GFR is provided as additional pertinent clinical information. GFR is reported in mL/min/1.73 sq m. Calculation based on the Chronic Kidney Disease Epidemiology Collaboration (CKD- EPI) equation refit without adjustment for race. GFR, EST. >60 >=60 024 3:48 PM CDT [facility] GFR, EST. NONAFRICAN >60 >=60 08/13/2023 3:48 PM CDT [facility] Blood Venipuncture / Unknown 08/13/2023 3:19 PM CDT 08/13/2023 3:19 PM CDT us Cameron Aguilera MD CHEMISTRY ORDERABLES Final Result [facility] [address] [place] [address] * EKG 12 LEAD (08/13/2023 3:10 PM CDT) Ventricular Rate 95 BPM EXTERNAL EKG Atrial Rate 95 BPM EXTERNAL EKG P-R Interval 134 ms EXTERNAL EKG QRS Duration 88 ms EXTERNAL EKG Q-T Duration 352 ms EXTERNAL EKG QTC CALCULATION 442 ms EXTERNAL EKG P [place] 39 degrees EXTERNAL EKG R [place] -20 degrees EXTERNAL EKG T [place] 35 degrees EXTERNAL EKG 08/13/2023 3:10 PM CDT Impressions EXTERNAL EKG - 08/18/2023 12:45 PM CDT Normal sinus rhythm Moderate voltage criteria for LVH, may be normal variant ( R in aVL , Zachary product ) Cannot rule out Anterior infarct , age undetermined Abnormal ECG When compared with ECG of 30-MAY-2023 13:11, No significant change was found Confirmed by James Brunson ([id number]) on 08/18/2023 12:45:32 PM Narrative Procedure Note James Brunson MD - 08/18/2023 IMPRESSION: Normal sinus rhythm Moderate voltage criteria for LVH, may be normal variant ( R in aVL ,[place] product ) Cannot rule out Anterior infarct , age undetermined Abnormal ECG When compared with ECG of 30-MAY-2023 13:11, No significant change was found Confirmed by James Brunson ([id number]) on 08/18/2023 12:45:32 PM Cameron Aguilera MD IMG ECG ORDERABLES Final R esult EXTERNAL EKG * EKG SCAN (08/13/2023 12:00 AM CDT) 08/13/2023 us Provider Scan IMG ECG ORDERABLES Final Result RESULTING AGENCY documented in this encounter Visit Diagnoses Diagnosis Suicidal ideations- Primary Suicidal ideation documented in this encounter Administered Medications Inactive Administered Medications - up to 3 most recent administrations Medication Order MAR Action Action Date Dose Rate Site cephALEXin (KEFLEX) capsule 500 mg 500 mg, Oral, ONCE, 1 dose, On 08/13/23 at 1800, Indications: Urinary Tract InfectionIndications:Urinary Tract Infection Given 08/13/2023 5:37 PM CDT 500 mg LORazepam (ATIVAN) tablet 1 mg 1 mg, Oral, ONCE, 1 dose, On 08/13/23 at 1930 Given 08/13/2023 7:20 PM CDT 1 mg metFORMIN (GLUCOPHAGE) tablet 500 mg 500 mg, Oral, ONCE, 1 dose, On 08/13/23 at 2230 Given 08/13/2023 10:29 PM CDT 500 mg traZODone (DESYREL) tablet 100 mg 100 mg, Oral, NIGHTLY, First dose on 08/13/23 at 2230, Until Discontinued Given 08/13/2023 10:29 PM CDT 100 mg documented in this encounter Active and Recently Administered Medications Times are shown in CDT. Scheduled Medication Order 08/12/2023 08/13/2023 08/14/2023 cephALEXin (KEFLEX) capsule 500 mg (COMPLETED) 500 mg, Oral, ONCE, 1 dose, On 08/13/23 at 1800, Indications: Urinary Tract Infection 1737 (Given - Provider: Zhang Gan RN) LORazepam (ATIVAN) tablet 1 mg (COMPLETED) 1 mg, Oral, ONCE, 1 dose, On 08/13/23 at 1930 1920 (Given - Provider: Markel Kemp RN) metFORMIN (GLUCOPHAGE) tablet 500 mg (COMPLETED) 500 mg, Oral, ONCE, 1 dose, On 08/13/23 at 2230 2229 (Given - Provider: Zhang Gan RN) traZODone (DESYREL) tablet 100 mg 100 mg, Oral, NIGHTLY, First dose on 08/13/23 at 2230, Until Discontinued 2228 (Given - Provider: Zhang Gan RN) documented in this encounter Additional Health Concerns Infection Onset Date Last Indicated Resolved Time COVID - 19 08/13/2023 08/13/2023 08/13/2023 3:59 PM CDT documented as of this encounter Care Teams Glazier Apprentice Relationship Specialty Start Date End Date Daja Carballo MD [address] [place] [address] PCP - General Internal Medicine 03/13/15 Baron Vergara MD [address] [place] [address] Consulting Physician Pulmonary Disease 06/26/23 documented as of this encounter
--- OUTSIDE RECORDS SUMMARY | 2024-03-03 19:26 | XMS_ITS | Encounter Summary ---
Author Organization [facility] [employer] [facility] Care Team Providers Care Concrete Products Dispatcher Name Role Phone Daja Kern MD Primary Care Provider [phone] Encounter Details Date Type Department Care Team (Latest Contact Info) Description 04/05/2023 Travel Social History Tobacco Use Types Packs/Day Years Used Date Smoking Tobacco: Never Smokeless Tobacco: Never Alcohol Use Standard Drinks/Week Comments No 0 (1 standard drink = 0.6 oz pur e alcohol) Sexually Active Control Partners Comments Yes None [...] st Contact Info) Description 03/27/2024 8:30 AM HAT SPRAYER [facility] [address] [place] [address] Burt Eastman MD [address] [address] 03/27/2024 8:30 AM HAT SPRAYER - 03/27/2024 9:00 AM HAT SPRAYER [facility] [address] [place] [address] Burt Eastman MD [address] [address] COLONOSCOPY 04/09/2024 1:15 PM HAT SPRAYER Office Visit [facility] - Pulmonology & Sleep Medicine [facility] [address] [place] [address] Baron Vergara MD [address] [place] [address] Scheduled Procedures Name Priority Associated Diagnoses Date/Ti me COLONOSCOPY HISTORY OF COLON POLYPS 03/27/2024 8:30 AM HAT SPRAYER documented as of this encounter Visit Diagnoses Not on filedocumented in this encounter Care Teams Concrete Products Dispatcher Relationship Specialty Start Date End Date Daja Kern MD [address] [place] [address] PCP - General Internal Medicine 03/13/15 documented as of this encounter
--- OUTSIDE RECORDS SUMMARY | 2024-03-03 19:26 | XMS_ITS | Encounter Summary ---
Author Organization [employer] Care Team Providers Care Corporate Specialist Name Role Phone Daja Kern MD Primary Care Provider Encounter Details Date Type Department Care Team (Latest Contact Info) Description 04/30/2023 Travel Social History Tobacco Use Types Packs/Day Years Used Date Smoking Tobacco: Never Smokeless Tobacco: Never Alcohol Use Standard Drinks/Week Comments No 0 (1 standard drink = 0.6 oz pur e alcohol) [facility] Utilities Answer Date Recorded In [...] or slept in a detention (including now)? No 04/30/2023 Sexually Active Control Partners Comments Yes None Male Comments No Sex and Gender Information Value Date Recorded Sex Assigned at Female 06/02/2023 1:39 AM CDT Legal Sex Female 11:06 PM CDT Gender Identity Female 06/02/2023 1:39 AM CDT Sexual Orientation Straight 06/02/2023 1: 39 AM CDT documented as of this encounter Functional Status * Within the last year, have you been humiliated or emotionally abused in other ways by your partner or ex-partner? Answer Date of Assessment Author No 04/30/2023 7:07 PM Aryan Prescott RN * Within the last year, have you been afraid of your partner or ex-partner? Answer Date of Assessment Author No 04/30/2023 7:07 PM Aryan Prescott RN * Within the last year, have you been raped or forced to have any kind of sexual activity by your partner or ex-partner? Answer Date of Assessment Author No 04/30/2023 7:07 PM Aryan Prescott RN * Within the last year, have you been kicked, hit, slapped, or otherwise physically hurt by your partner or ex-partner? Answer Date of Assessment Author No 04/30/2023 7:07 PM Aryan Prescott RN documented as of this encounter Plan of Treatment Upcoming Encounters Date Type Department Care Team (Late st Contact Info) Description 03/27/2024 8:30 AM UI DESIGNER [facility] [address] [place] [address] Burt Eastman MD [address] [address] 03/27/2024 8:30 AM UI DESIGNER - 03/27/2024 9:00 AM UI DESIGNER [facility] [address] [place] [address] Burt Eastman MD [address] [address] COLONOSCOPY 04/09/2024 1:15 PM UI DESIGNER Office Visit [facility] - Pulmonology & Sleep Medicine [facility] [address] [place] [phone] Baron Vergara MD [address] [place] [address] Scheduled Procedures Name Priority Associated Diagnoses Date/Ti me COLONOSCOPY HISTORY OF COLON POLYPS 03/27/2024 8:30 AM UI DESIGNER documented as of this encounter Visit Diagnoses Not on filedocumented in this encounter Additional Health Concerns Infection Onset Date Last Indicated Resolved Time COVID - 19 04/30/2023 04/30/2023 04/30/2023 4:09 PM UI DESIGNER documented as of this encounter Care Teams Corporate Specialist Relationship Specialty Start Date End Date Daja Kern MD [address] [place] [address] PCP - General Internal Medicine 03/13/15 documented as of this encounter
--- OUTSIDE RECORDS SUMMARY | 2024-03-03 19:26 | XMS_ITS | Encounter Summary ---
Author Organization [facility] Address [address] [place] [address] Phone Care Team Providers Care Toppiece Cutter Name Role Phone Daja Kern MD Primary Care Provider [phone] Reason for Visit * Reason Onset Date Comments Follow-up 05/03/2023 Encounter Details Date Type Department Care Team (Late st Contact Info) Description 05/03/2023 Telephone [facility] Nursing [facility] [address] [place] [address] Marina Vázquez, RN [place] Follow-up Social History Tobacco Use Types Packs/Day Years Used Date Smoking Tobacco: Never Smokeless Tobacco: Never Alcohol Use Standard Drinks/Week Comments No 0 (1 standard drink = 0.6 oz pur e alcohol) [facility] Utilities Answer Date Recorded In the past [...] or slept in a fdc (including now)? No 04/30/2023 Sexually Active Control [...] Telephone Encounter - Marina Vázquez RN - 05/03/2023 3:04 PM CST Called patient to follow up after recent discharge from [facility] Med-Surg Unit. How are you feeling? Feeling a little better. Still have a cough Did you get your medications? Yes. I wanted cough syrup but they gave me Tessalon instead. They aren't helping much, but nebulizer is. Do you have the date of your follow up appointment? Yes Do you have a ride? Yes Have you heard from Home health? N/a Instructed patient to callback with any questions or concerns. ER GAGER documented in this encounter Plan of Treatment Upcoming Encounters Date Type Department Care Team (Late st Contact Info) Description 03/27/2024 8:30 AM PUMPER GAGER Hospital Encounter [facility] Lab Periop [address] [place] [address] Burt Eastman MD [address] [facility] [address] [address] 03/27/2024 8:30 AM PUMPER GAGER - 03/27/2024 9:00 AM PUMPER GAGER [facility] [address] [place] [address] Burt Eastman MD [address] [address] COLONOSCOPY 04/09/2024 1:15 PM PUMPER GAGER [facility] [address] [place] [address] Baron Vergara MD [address] [place] [address] Scheduled Procedures Name Priority Associated Diagnoses Date/Ti me COLONOSCOPY HISTORY OF COLON POLYPS 03/27/2024 8:30 AM PUMPER GAGER documented as of this encounter Visit Diagnoses Not on filedocumented in this encounter Care Teams Toppiece Cutter Relationship Specialty Start Date End Date Daja Kern MD [address] [place] [address] PCP - General Internal Medicine 03/13/15 documented as of this encounter
--- OUTSIDE RECORDS SUMMARY | 2024-03-03 19:26 | XMS_ITS | Encounter Summary ---
Author Organization [facility] Care Team Providers Care Retail Administrative Assistant Name Role Phone Daja Kern MD Primary Care Provider [phone] Baron Vergara MD Unavailable Encounter Details Date Type Department Care Team (Latest Contact Info) Description 06/26/2023 Travel Social History Tobacco Use Types Packs/Day Years Used Date Smoking Tobacco: Never Smokeless Tobacco: Never Alcohol Use Standard Drinks/Week Comments No 0 (1 standard drink = 0.6 oz pur e alcohol) [facility] Utilities Answer Date Recorded In the past 12 months has [employer] electric, gas, oil, or water company threatened [...] declined 05/22/2023 How often do you attend hindu or druze serv ices? Patient declined 05/22/2023 Do you belong to any clubs o r organizations such as hindu groups, unions, fraternal or athletic groups, or [...] medical care, and heating? Patient declined 05/22/2023 [facility] - Occupational Stress Questionnaire Answer Date [...] st Contact Info) Description 03/27/2024 8:30 AM JOB SITE SUPERINTENDENT [facility] [address] [place] [address] Burt Eastman MD [address] [address] 03/27/2024 8:30 AM JOB SITE SUPERINTENDENT - 03/27/2024 9:00 AM JOB SITE SUPERINTENDENT [facility] 1 [place] [address] Burt Eastman MD [address] [address] COLONOSCOPY 04/09/2024 1:15 PM JOB SITE SUPERINTENDENT Office Visit [facility] - Pulmonology & Sleep Medicine [facility] [address] [place] [address] Baron Vergara MD [address]2 [place] [address] Scheduled Procedures Name Priority Associated Diagnoses Date/Ti me COLONOSCOPY HISTORY OF COLON POLYPS 03/27/2024 8:30 AM JOB SITE SUPERINTENDENT documented as of this encounter Visit Diagnoses Not on filedocumented in this encounter Care Teams Retail Administrative Assistant Relationship Specialty Start Date End Date Daja Kern MD [address] [place] [address] PCP - General Internal Medicine 03/13/15 Baron Vergara MD [address]2 [place] [address] Consulting Physician Pulmonary Disease 06/26/23 documented as of this encounter
--- OUTSIDE RECORDS SUMMARY | 2024-03-03 19:26 | XMS_ITS | Encounter Summary ---
Author Organization [facility] Address [address] [place] [address] Phone Care Team Providers Care Paint Striping Machine Operator Name Role Phone Daja Kern MD Primary Care Provider [phone] Baron Vergara MD Unavailable Reason for Visit * Reason Onset Date Comments Results 08/04/2023 Encounter Details Date Type Department Care Team (Late st Contact Info) Description 08/04/2023 Telephone [facility] - Pulmonology & Sleep Medicine [facility] #2 [place] [address] Baron Vergara MD [address] [place] [address] Results Social History Tobacco Use Types Packs/Day Years Used Date Smoking Tobacco: Never Smokeless Tobacco: Never Alcohol Use Standard Drinks/Week Comments No 0 (1 standard drink = 0.6 oz pur e alcohol) [facility] Utilities Answer Date Recorded In the past 12 months has [employer] electric, gas, oil, or water company threatened [...] declined 05/22/2023 How often do you attend yazidi or roman catholic serv ices? Patient declined 05/22/2023 Do you belong to any clubs o r organizations such as yazidi groups, unions, fraternal or athletic groups, or [...] Patient declined 05/22/2023 [facility] - Occupational Stress Questionnaire Answer Date [...] encounter Miscellaneous Notes * Telephone Encounter - Kathrine Govea RN - 08/07/2023 3:29 PM CDT Patient is aware and verbalizes understanding. Orders faxed to [facility] * Telephone Encounter - Kathrine Govea RN - 08/04/2023 3:53 PM CDT Qwaya message sent to patient * Telephone Encounter - Kathrine Govea RN - 08/04/2023 3:19 PM CDT Attempted to call patient with results. No voicemail has been set up. Will attempt to call at a later time. Order for CPAP placed * Telephone Encounter - Kathrine Govea RN - 08/04/2023 3:13 PM CDT SUMMARY: Severe obstructive sleep apnea (G47.33). Rule 1A and 1B: AHI=89.1/hr, Overall SDB index=89.8/hr. Oximetry showed average sleep saturation of 85%, lowest SaO2 was 57% and her saturations were above90% for 19.8% of the night. Sleep and respiration normalized at a CPAP setting of 12.0 cm of H2O. Overall AHI at optimal setting=10.0/hr. AHI is elevated due to sleep onset events. RECOMMENDATIONS: Trial with Nasal CPAP 12.0 cm of [...] ideal body weight. Avoid alcohol and other MANAGER STAFFING depressants. documented in this encounter Plan of Treatment Upcoming Encounters Date Type Department Care Team (Late st Contact Info) Description 03/27/2024 8:30 AM SOFTWARE VALIDATION ENGINEER [facility] 1 [place] [address] Burt Eastman MD [address] [address] 03/27/2024 8:30 AM SOFTWARE VALIDATION ENGINEER - 03/27/2024 9:00 AM SOFTWARE VALIDATION ENGINEER [facility] 1 [place] [address] Burt Eastman MD [address] [address] COLONOSCOPY 04/09/2024 1:15 PM SOFTWARE VALIDATION ENGINEER Office Visit [facility] - Pulmonology & Sleep Medicine - [place] [address] [place] [address] Baron Vergara MD [address]2 [place] [address] Scheduled Procedures Name Priority Associated Diagnoses Date/Ti me COLONOSCOPY HISTORY OF COLON POLYPS 03/27/2024 8:30 AM SOFTWARE VALIDATION ENGINEER documented as of this encounter Visit Diagnoses Diagnosis KWABENA (obstructive sleep apnea)- Primary Obstructive sleep apnea (adult) (pediatric) documented in this encounter Care Teams Paint Striping Machine Operator Relationship Specialty Start Date End Date Daja Kern MD [address] [place] [address] PCP - General Internal Medicine 03/13/15 Baron Vergara MD [address] [place] [address] Consulting Physician Pulmonary Disease 06/26/23 documented as of this encounter
--- OUTSIDE RECORDS SUMMARY | 2024-03-03 19:26 | XMS_ITS | Encounter Summary ---
Author Organization [facility] Address [address] [place] [address] Phone Care Team Providers Care Inspector Repairer Sandstone Name Role Phone Daja Kern MD Primary Care Provider [phone] Baron Vergara MD Unavailable Reason for Referral * Radiology Services (Routine) - Authorized Specialty Diagnoses / Procedures Referred By Contac t Referred To Contact Radiology Diagnoses Encounter for screening mammogram for malignant neoplasm of breast Procedures KIMBERLY SCREENING BILATERAL DIGITAL W CAD W CHELSEA Trupti Mejia MD [address] [place] [address] Phone: tel: fax: Referral ID Status Reason Start Date Expiration Date V isits Requested Visits Authorized [id number] Authorized 10/03/2023 1 1 Encounter Details Date Type Department Care Team (Late st Contact Info) Description 10/03/[address] [facility] Scheduling 1 [place] [id number] Trupti Mejia MD [address] [place] [address] Encounter for screening mammogram for malignant neoplasm of breast (Primary Dx) Social History Tobacco Use Types Packs/Day Years Used Date Smoking Tobacco: Never Smokeless Tobacco: Never Alcohol Use Standard Drinks/Week Comments No 0 (1 standard drink = 0.6 oz pur e alcohol) [facility] Utilities Answer Date Recorded [...] declined 05/22/2023 How often do you attend religious or taoist serv ices? Patient declined 05/22/2023 Do you belong to any clubs o r organizations such as religious groups, unions, fraternal or athletic groups, or [...] medical care, and heating? Patient declined 05/22/2023 [facility] - Occupational Stress [...] place to sleep or slept in a [place] health care facility (including now)? Patient declined 05/22/2023 Sexually Active [...] st Contact Info) Description 03/27/2024 8:30 AM COLLEGE ADMINISTRATOR [facility] 1 [place] [address] Burt Eastman MD [address] [address] 03/27/2024 8:30 AM COLLEGE ADMINISTRATOR - 03/27/2024 9:00 AM COLLEGE ADMINISTRATOR [facility] 1 [place] [address] Burt Eastman MD [address] [address] COLONOSCOPY 04/09/2024 1:15 PM COLLEGE ADMINISTRATOR [facility]ology & Sleep Medicine [facility] #2 [place] [address] Baron Vergara MD [address] [place] [address] Scheduled Orders Name Type Priority Associated Diagnoses Orde r Schedule KIMBERLY SCREENING BILATERAL DIGITAL W CAD W CHELSEA Imaging Routine Encounter for screening mammogram for malignant neoplasm of breast Expected: 10/03/2023, Expires: 10/02/2024 Scheduled Procedures Name Priority Associated Diagnoses Date/Ti me COLONOSCOPY HISTORY OF COLON POLYPS 03/27/2024 8:30 AM COLLEGE ADMINISTRATOR documented as of this encounter Visit Diagnoses Diagnosis Encounter for screening mammogram for malignant neoplasm of breast- Primary Other screening mammogram documented in this encounter Care Teams Inspector Repairer Sandstone Relationship Specialty Start Date End Date Daja Kern MD [address] [place] [address] PCP - General Internal Medicine 03/13/15 Barno Vergara MD [address] [place] [address] Consulting Physician Pulmonary Disease 06/26/23 documented as of this encounter
--- OUTSIDE RECORDS SUMMARY | 2024-03-03 19:26 | XMS_ITS | Encounter Summary ---
Author Organization [facility] Care Team Providers Care Glass Grinder Name Role Phone Daja Kern MD Primary Care Provider [phone] Baron Vergara MD Unavailable Encounter Details Date Type Department Care Team (Latest Contact Info) Description 08/13/2023 Travel Social History Tobacco Use Types Packs/Day Years Used Date Smoking Tobacco: Never Smokeless Tobacco: Never Alcohol Use Standard Drinks/Week Comments No 0 (1 standard drink = 0.6 oz pur e alcohol) [facility] Utilities Answer Date Recorded In the past 12 months has [employer] electric, gas, oil, or water company threatened [...] declined 05/22/2023 How often do you attend buddhism or holiness serv ices? Patient declined 05/22/2023 Do you belong to any clubs o r organizations such as buddhism groups, unions, fraternal or athletic groups, or [...] medical care, and heating? Patient declined 05/22/2023 [facility] - Occupational Stress Questionnaire Answer Date [...] Contact Info) Description 03/27/2024 8:30 AM COLLEGE SPORTS COACH [facility] 1 [place] [address] Burt Eastman MD [address] [address] 03/27/2024 8:30 AM COLLEGE SPORTS COACH - 03/27/2024 9:00 AM COLLEGE SPORTS COACH [facility] 1 [place] [address] Burt Eastman MD [address] [address] COLONOSCOPY 04/09/2024 1:15 PM COLLEGE SPORTS COACH Office Visit [facility] - Pulmonology & Sleep Medicine [facility] #2 [place] [address] Baron Vergara MD [address]2 [place] [address] Scheduled Procedures Name Priority Associated Diagnoses Date/Ti me COLONOSCOPY HISTORY OF COLON POLYPS 03/27/2024 8:30 AM COLLEGE SPORTS COACH documented as of this encounter Visit Diagnoses Not on filedocumented in this encounter Additional Health Concerns Infection Onset Date Last Indicated Resolved Time COVID - 19 08/13/2023 08/13/2023 08/13/2023 3:59 PM CDT documented as of this encounter Care Teams Glass Grinder Relationship Specialty Start Date End Date Daja Kern MD [address] [place] [address] PCP - General Internal Medicine 03/13/15 Baron Vergara MD [address] [place] [address] Consulting Physician Pulmonary Disease 06/26/23 documented as of this encounter
--- OUTSIDE RECORDS SUMMARY | 2024-03-03 19:26 | XMS_ITS | Encounter Summary ---
Author Organization [facility] Care Team Providers Care Vault Clerk Name Role Phone Daja Kern MD Primary Care Provider [phone] Baron Vergara MD Unavailable Encounter Details Date Type Department Care Team (Latest Contact Info) Description 07/24/2023 Travel Social History Tobacco Use Types Packs/Day Years Used Date Smoking Tobacco: Never Smokeless Tobacco: Never Alcohol Use Standard Drinks/Week Comments No 0 (1 standard drink = 0.6 oz pur e alcohol) [facility] Utilities Answer Date Recorded In the past 12 months has [employer] electric, gas, oil, or water company threatened [...] declined 05/22/2023 How often do you attend taoism or catholic serv ices? Patient declined 05/22/2023 Do you belong to any clubs o r organizations such as taoism groups, unions, fraternal or athletic groups, or [...] Patient declined 05/22/2023 [facility] - Occupational Stress Questionnaire Answer [...] a half-way (including now)? Patient declined 05/22/2023 Sexually Active [...] st Contact Info) Description 03/27/2024 8:30 AM OUTPATIENT FACILITY PHYSICAL THERAPIST [facility] [address] [place] [address] Burt Eastman MD [address] [address] 03/27/2024 8:30 AM OUTPATIENT FACILITY PHYSICAL THERAPIST - 03/27/2024 9:00 AM OUTPATIENT FACILITY PHYSICAL THERAPIST [facility] Periop [address] [place] [address] Burt Eastman MD [address] [address] COLONOSCOPY 04/09/2024 1:15 PM OUTPATIENT FACILITY PHYSICAL THERAPIST Office Visit [facility] - Pulmonology & Sleep Medicine [facility] #2 [place] [address] Baron Vergara MD [address] [place] [address] Scheduled Procedures Name Priority Associated Diagnoses Date/Ti me COLONOSCOPY HISTORY OF COLON POLYPS 03/27/2024 8:30 AM OUTPATIENT FACILITY PHYSICAL THERAPIST documented as of this encounter Visit Diagnoses Not on filedocumented in this encounter Care Teams Vault Clerk Relationship Specialty Start Date End Date Daja Kern MD [address] [place] [address] PCP - General Internal Medicine 03/13/15 Baron Vergara MD [address] [place] [address] Consulting Physician Pulmonary Disease 06/26/23 documented as of this encounter
--- OUTSIDE RECORDS SUMMARY | 2024-03-03 19:26 | XMS_ITS | Encounter Summary ---
Author Organization [facility] Address [address] [place] [address] Phone Care Team Providers Care Communications Associate Name Role Phone Daja Kern MD Primary Care Provider [phone] Reason for Visit * Reason Onset Date Comments Transition of Care 05/23/2023 TCM 1st attem pt Encounter Details Date Type Department Care Team (Late st Contact Info) Description 05/23/2023 Patient Outreach [facility] Auxiliary Equipment Operator Management [address] [place], [place] [address] Carrie Zaragoza, RN [place] Transition of Care (TCM 1st attempt) Social History Tobacco Use Types Packs/Day Years Used Date Smoking Tobacco: Never Smokeless Tobacco: Never Alcohol Use Standard Drinks/Week Comments No 0 (1 standard drink = 0.6 oz pur e alcohol) [facility] Utilities Answer Date Recorded In [...] declined 05/22/2023 How often do you attend synagogue or confucianist serv ices? Patient declined 05/22/2023 Do you belong to any clubs o r organizations such as synagogue groups, unions, fraternal or athletic groups, or [...] medical care, and heating? Patient declined 05/22/2023 [facility] - Occupational [...] place to sleep or slept in a alf (including now)? Patient declined 05/22/2023 Sexually Active Control Partners Comments Yes None Male Comments No Sex and Gender Information Value Date Recorded Sex Assigned at Female 06/02/2023 1:39 AM CDT Legal Sex Female 11:06 PM CDT Gender Identity Female 06/02/2023 1:39 AM CDT Sexual Orientation Straight 06/02/2023 1: 39 AM CDT documented as of this encounter Progress Notes * Carrie Zaragoza - 05/23/2023 12:17 PM CDT TCM 1st attempt Called for Alona and voicemail is not set up. Alona discharged from [facility] on 05/21 with COPD. * Nithya Ruiz RN - 05/23/2023 12:17 PM CDT Images from the original note were not included. Care Management Post Discharge Follow-Up Call Discharge diagnosis: COPD Discharge facility: [facility] 05-20 to 05-22-2023 Patient's Current Condition: Spoke with Alona, she is doing ok, slept ok. Has medication and taking, doing nebulizer treatment multiple times a day. Lives with mother. Eating and drinking well. Has follow up OV with PCP , per hospital notes this is the soonest available appt, does not have chief recordist that she knows of. No new concerns at this time. Does the patient live alone? With mom Caregiver: self DME: none Diet: cardiac diet Daily weight: not taken Blood pressure: not taken Glucose: FBS 150 Oxygen: none Nebulizer: doing Medications: Did the patient pick pulling machine operator their medications from the pharmacy? Yes Is the patient compliant with the medication directions? Yes Follow Up Appointments: All Patient Appointments Provider Department Dept Phone 06/01/2023 1:00 PM Daja Kern PCP: [facility] 06-01-2023 Specialist: none Appointment scheduled within 7 days of Discharge (5 days for Heart Failure)? Over 7 days, first available with her PCP , set up by hospital Transportation: Patient plans to attend follow-up appointment and has transportation to follow up visit?no 60 Day utilization: ED: 2 Hospital Admissions: 2 Please call Campus Coordinator Nithya Ruiz RN at [phone] with any questions. documented in this encounter Plan of Treatment Upcoming Encounters Date Type Department Care Team (Late st Contact Info) Description 03/27/2024 8:30 AM LAY BROTHER [facility] [address] [place] [address] Burt Eastman MD [address] [address] 03/27/2024 8:30 AM LAY BROTHER - 03/27/2024 9:00 AM LAY BROTHER [facility] 1 [place] [address] Burt Eastman MD [address] [address] COLONOSCOPY 04/09/2024 1:15 PM LAY BROTHER Office Visit [facility] - Pulmonology & Sleep Medicine [facility] #2 [place] [address] Baron Vergara MD [address]2 [place] [address] Scheduled Procedures Name Priority Associated Diagnoses Date/Ti me COLONOSCOPY HISTORY OF COLON POLYPS 03/27/2024 8:30 AM LAY BROTHER documented as of this encounter Visit Diagnoses Not on filedocumented in this encounter Care Teams Communications Associate Relationship Specialty Start Date End Date Daja Kern MD [address] [place], [place] [id number] PCP - General Internal Medicine 03/13/15 documented as of this encounter
--- OUTSIDE RECORDS SUMMARY | 2024-03-03 19:26 | XMS_ITS | Encounter Summary ---
Author Organization [facility] Address [address] 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 Role Phone Daja Carballo MD Primary Care Provider [phone] Reason for Visit * Reason Comments Shortness of Breath Fever * Auth/Cert (Routine) Specialty Diagnoses / Procedures Referred By Contac t Referred To Contact Diagnoses Hypoxia COPD exacerbation (HCC) Fever, unspecified fever cause Alicia Romero MD [address] [place] [address] Phone: tel: fax: Referral ID Status Reason Start Date Expiration Date Visits Re quested Visits Authorized [id number] 1 1 Encounter Details Date Type Department Care Team (Late st Contact Info) Description 05/21/2023 9:20 PM CDT - 05/22/2023 5:27 PM CDT Emergency [facility] Med Surg [address] [place] [address] Abe Couch MD [address] [place] [address] Alicia Romero MD [address] [place] [address] COPD exacerbation (HCC) Discharge Disposition: Discharged to home or Selfcare Social History Tobacco Use Types Packs/Day Years Used Date Smoking Tobacco: Never Smokeless Tobacco: Never Tobacco Cessation:Counseling Given: Not Answered Alcohol Use Standard Drinks/Week Comments No 0 (1 standard drink = 0.6 oz pur e alcohol) [facility] Utilities Answer Date Recorded In the [...] declined 05/22/2023 How often do you attend lutheran or presybeterian serv ices? Patient declined 05/22/2023 Do you belong to any clubs o r organizations such as lutheran groups, unions, fraternal or athletic groups, or [...] medical care, and heating? Patient declined 05/22/2023 [facility] - Occupational Stress [...] Sign Reading Time Taken Comments Blood Pressure 138/81 05/22/2023 8:36 AM CDT Pulse 90 05/22/2023 8:36 AM CDT Temperature 37.2 ??C (98.9 ??F) 05/22/2023 4 :00 AM CDT Respiratory Rate 16 05/22/2023 7:18 AM CDT Oxygen Saturation 98% 05/22/2023 9:1 8 AM CDT post abulation to bathroom Inhaled Oxygen Concentration - - Weight 133.6 kg (294 lb 8 oz) 05/22/2023 12:37 AM CDT Height 157.5 cm (5' 2 ) 05/22/2023 12:3 7 AM CDT Body Mass Index 53.86 05/22/2023 12:37 AM CDT documented in this encounter Functional Status * Audit-C Score Answer Date of Assessment Author -1 05/22/2023 12:48 AM Jevon Dang RN * Within the last year, have you been humiliated or emotionally abused in other ways by your partner or ex-partner? Answer Date of Assessment Author Patient declined 05/22/2023 12:48 AM Jevon Dang RN * Within the last year, have you been afraid of your partner or ex-partner? Answer Date of Assessment Author Patient declined 05/22/2023 12:48 AM Jevon Dang RN * Within the last year, have you been raped or forced to have any kind of sexual activity by your partner or ex-partner? Answer Date of Assessment Author Patient declined 05/22/2023 12:48 AM Jevon Dang RN * Within the last year, have you been kicked, hit, slapped, or otherwise physically hurt by your partner or ex-partner? Answer Date of Assessment Author Patient declined 05/22/2023 12:48 AM Jevon Dang RN * Question Answer Date of Assessment Author Q1: How often do you have a drink containing alcohol? Patient declined 05/22/2023 12:48 AM Jevon Dang RN Q2: How many drinks containing alcohol do you have on a typical day when you are drinking? Patient declined 05/22/2023 12:48 AM Jevon Dang RN Q3: How often do you have six or more drinks on one occasion? Patient declined 05/22/2023 12:48 AM Jevon Dang RN documented as of this encounter Discharge Summaries * Alicia Romero MD - 05/22/2023 9:11 AM CDT [facility] DISCHARGE SUMMARY Name: Alona Kemp Age: 52 y.o. : 1970 Attending Physician: Alicia Romero MD Admission Date/Time: 05/21/2023 Discharge Date: 05/22/2023 Primary Care Physician: DAJA CARBALLO MD Discharging Provider: Alicia Romero MD INSTRUCTIONS FOR PHYSICIANS ON FOLLOW UP AFTER DISCHARGE: Follow-up with PCP: DAJA CARBALLO MD in 1 week Recommended Tests/Labs to order at follow-up: None Pending Labs/Path/Imaging: Cultures: Blood culture x2 (05/21/2023) Discharge Instructions: Discharge Condition: improved Disposition: Home Diet: Cardiac Diet Activity: activity as tolerated Primary Discharge Diagnosis: COPD exacerbation (HCC), pneumonia, acute respiratory failure with hypoxia, hyponatremia, diabetes type 2, hypertension, hyperlipidemia, crack cocaine use, anxiety, depression, bipolar disorder, obstructive apnea, GERD, BMI 53.8 Discharge Diagnoses: As above Active Hospital Problems No active problems to display. Resolved Hospital Problems Diagnosis Date Noted Date Resolved COPD exacerbation (HCC) [J44.1] 05/22/2023 05/22/2023 Admitting Diagnoses: As above HOSPITAL COURSE: Alona Kemp was admitted 05/21/2023 with COPD exacerbation (HCC) . Surgeries performed during stay: * No surgery found * Consults: Treatment Team: Consulting Physician: Baron Vergara MD Patient was admitted on 05/21/2023 for evaluation shortness of breath symptoms. Acute respiratory failure with hypoxia was identified attributed to COPD exacerbation and concurrent pneumonia presentation. With supportive care, breathing abilities have returned back to baseline and patient is deemedstable be discharged home with prescription for prednisone taper and oral antibiotics. Patient willfollow-up with PCP in 1 week and follow-up blood culture x2 (05/21/2023) with PCP. Exam Day of Discharge: Temp Av.5 ??F (37.5 ??C) Min: 97.4 ??F (36.3 ??C) Max: 101.6 ??F (38.7 ??C) BP Min: 114/74 Max: 159/114 Pulse Av.9 Min: 90 Max: 112 Heart Rate (Monitor) Av.1 Min: 103 Max: 112 Resp Av.5 Min: 16 Max: 30 SpO2 Av % Min: 87 % Max: 98 % O2 Flow Rate (l/min): 2 l/min [...] Review: Lab Results Component Value Date WBC 7.11 05/22/2023 HEMOGLOBIN 12.4 05/22/2023 HEMATOCRIT 38.5 05/22/2023 PLATELETCNT 182 05/22/2023 MCV 94.4 05/22/2023 Lab Results Component Value Date SODIUM 138 05/22/2023 POTASSIUM 4.9 05/22/2023 CHLORIDE 104 05/22/2023 CO2VEN 24 05/22/2023 ANIONGAP 14.9 05/22/2023 GLUCOSE 347 (H) 05/22/2023 BUN 12 05/22/2023 CREATININE 0.86 05/22/2023 BCRATIO8 14 05/22/2023 TOTALPROTEIN 7.0 05/21/2023 ALBUMIN 3.6 05/21/2023 CALCIUM 8.7 05/22/2023 TBIL 0.5 05/21/2023 SGOTAST 12 05/21/2023 SGPTALT 19 05/21/2023 ALKALINEPHO 84 05/21/2023 GFRNA >60 05/22/2023 GFRA >60 05/22/2023 Lab Results Component Value Date GLUCOSEPOCT 295 (H) 05/22/2023 Lab Results Component Value Date INR 1.1 01/02/2023 PTP 13.8 01/02/2023 Lab Results Component Value Date HGBA1C 6.9 (H) 05/01/2023 Lab Results Component Value Date [id number] 251 08/25/2015 Lab Results Component Value Date CPK 67 10/02/2022 TROPONINI <0.300 02/08/2022 Lab Results Component Value Date FERRITIN 18 08/25/2015 No results found for: FOLATE Lab Results Component Value Date PHARTERIAL 7.37 04/30/2023 PO2ART 66 (L) 04/30/2023 [id number] 59 (H) 04/30/2023 O2ART 89 (L) 04/30/2023 Lab Results Component Value Date LACTICA 1.7 05/21/2023 XR CHEST SINGLE VIEW PORTABLE Result Date: 05/21/2023 IMPRESSION: No acute cardiopulmonary abnormality. XR CHEST SINGLE VIEW PORTABLE Result Date: 04/30/2023 IMPRESSION: No acute cardiopulmonary abnormality. No infiltrate. DISCHARGE MEDICATION LIST: Medication List START taking these medications azithromycin 250 MG Tabs Commonly known as: ZITHROMAX Take 1 Tablet by mouth daily for 4 days. cefdinir 300 MG Caps Commonly known as: OMNICEF Take 2 Capsules by mouth daily for 6 days. guaiFENesin 600 MG Tab-sr-12hr Commonly known as: MUCINEX Take 1 Tablet by mouth every 12 hours as needed for Cough or Congestion. predniSONE 10 MG Tabs Commonly known as: DELTASONE Take 4 Tablets by mouth daily for 1 day, THEN 3 Tablets daily for 1 day, THEN 2 Tablets daily for 1day, THEN 1 Tablet daily for 1 day, THEN 0.5 Tablets daily for 1 day. Start taking on: May 23, 2023 CONTINUE taking these medications Abilify Maintena 400 MG Prsy Generic drug: ARIPiprazole extended release albuterol (2.5 MG/3ML) 0.083% Nebu Commonly known as: PROVENTIL, VENTOLIN 3 mL by Nebulization route every 6 hours as needed for Wheezing. benztropine 0.5 MG Tabs Commonly known as: COGENTIN DULoxetine 20 MG Cpep Commonly known as: CYMBALTA folic acid 1 MG Tabs Commonly known as: FOLVITE Take 1 Tablet by mouth daily. furosemide 20 MG Tabs Commonly known as: LASIX Take 1 Tablet by mouth daily. gabapentin 600 MG Tabs Commonly known as: NEURONTIN hydrOXYzine 50 MG Tabs Commonly known as: [...] 10 MG Tabs Commonly known as: ZOCOR tiZANidine 4 MG Tabs Commonly known as: ZANAFLEX traZODone 50 MG Tabs Commonly known as: DESYREL triamterene-hydrochlorothiazide 37.5-25 MG Caps Commonly known as: DYAZIDE Where to Get Your Medications Information about where to get these medications is not yet available Ask your nurse or doctor about these medications azithromycin 250 MG Tabs cefdinir 300 MG Caps guaiFENesin 600 MG Tab-sr-12hr predniSONE 10 MG Tabs Time spent on [...] hesitate to call. Signed: Alicia Romero MD, 05/22/2023, 9:11 AM CDT documented in this encounter Discharge Instructions * Appointments* Alicia Romero MD - 05/22/2023 9:10 AM CDT Complete course of oral antibiotics with Omnicef 600 mg daily x6 days + azithromycin 250 mg daily x4 days Complete course of prednisone taper Follow-up blood culture x2 (05/21/2023) with PCP Follow up with PCP 1 week documented in this encounter Medications at Time [...] mouth every morning. azithromycin (ZITHROMAX) 250 MG Tablet Take 1 Tablet by mouth daily for 4 days. 4 Tablet 05/22/2023 05/26/19 24 cefdinir (OMNICEF) 300 MG Capsule Take 2 Capsules by mouth daily for 6 days. 12 Capsule 05/22/2023 05/28/19 24 folic acid (FOLVITE) 1 MG Tablet [...] (Mild anxiety). 30 Tablet 01/05/2023 01/29/20 24 predniSONE (DELTASONE) 10 MG Tablet Take 4 Tablets by mouth daily for 1 day, THEN 3 Tablets daily for 1 day, THEN 2 Tablets daily for 1 day, THEN 1 Tablet daily for 1 day, THEN 0.5 Tablets daily for 1 day. 11 Tablet 05/23/2023 05/28/19 24 rOPINIRole (REQUIP) 0.5 MG Tablet Take [...] 08/06/19 24 documented as of this encounter H&P Notes * Vaishali Escobedo, VIDEOGAME DESIGNER, SLAT BASKET MAKER HELPER - 05/22/2023 12:22 AM CDT [facility] ADMISSION HISTORY & PHYSICAL Chief Complaint: Shortness of breath HPI: Alona Kemp is a 52 y.o. female who presented to [facility] with complaints of shortness with which started 1 month ago, and progressive worsening. Today, patient's O2 sat was 88% on room air prior to arrival. Associated symptoms include temperature 101.6??, headache, and green productive cough. Patient also reported patient has a chest pain when she coughs. Denies smoking, however she has a smoker in the house. She denies drinking ETOH. Patient smokes crack cocaine; last use3 days ago prior to arrival. Patient has a history of KWABENA, however he has not use CPAP. The patientdenies sick contact. Patient has not traveled recently.. 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 Initial vital sign was temperature 101.6??, pulse 108, respiratory rate 30, BP 153/109, O2 sat 93% on room air. The patient's O2 sat dropped to 88% while she was in the ED, and required 2 L of oxygen. ED workup showed normal WBC, sodium 133, chloride 97, glucose 140,. Lactate was unremarkable. Initial troponin was unremarkable. UA showed no signs of infection. The patient received Tylenol 975 mg,Zithromax 500 mg IV, Rocephin 2 g IV, DuoNeb, Toradol 30 mg IV, Solu-Medrol 62.5 mg IV, Zofran 4 mgIV, IV fluid bolus 1750 ml in ED. Review of Systems: All systems reviewed and are negative except what is mentioned in HPI. Allergies: is allergic to geodon [ziprasidone hcl], risperdal [risperidone], topamax [topiramate], and sulfa antibiotics. Home Medications: Prior to Admission Medications Prescriptions [...] daily. folic acid (FOLVITE) 1 MG Tablet No No Sig: Take 1 Tablet by mouth daily. furosemide (LASIX) 20 MG Tablet No No Sig: Take 1 Tablet by mouth daily. hydrOXYzine (ATARAX) 50 MG Tablet No No Sig: Take 1 Tablet by mouth every 6 hours as needed for Anxiety (Mild anxiety). irbesartan (AVAPRO) 150 MG Tablet Yes No Sig: Take 150 mg by mouth daily. [...] (For restless legs). senna 8.6 MG Tablet No No Sig: Take 2 Tablets by mouth nightly as needed for Constipation - 1st line. simvastatin (ZOCOR) 10 MG Tablet Yes No Sig: Take 10 mg by mouth every evening. traZODone (DESYREL) 50 MG Tablet Yes No Sig: Take 100 mg by mouth nightly. triamterene-hydrochlorothiazide (DYAZIDE) 37.5-25 MG Capsule Yes No Sig: Take 1 Capsule by mouth every morning. Facility-Administered Medications: None I reconciled the patient's medications and the following modifications apply Past Medical History: She has a past medical history of Adenomatous colon polyp, Anxiety, Bipolar disorder ([facility]), Cocaine abuse ([facility]), DDD (degenerative disc disease), lumbar, Depression, GERD (gastroesophageal reflux disease), HLD (hyperlipidemia), HTN (hypertension), Hypothyroid, IBS (irritable bowel syndrome), Morbid obesity ([facility]), NAFLD (nonalcoholic fatty liver disease), Nephrocalcinosis, KWABENA (obstructive sleep apnea), SBO (small bowel obstruction) ([facility]) (09/2018), and Vitamin D deficiency. Surgical History: has a past surgical history that includes Section (1994); Cholecystectomy (2004); EGD (2012?); Colonoscopy; [place] Tooth Extraction (1991); Colonoscopy (N/A, 11/16/2018); and Upper Gastrointestinal Endoscopy (N/A, 02/06/2019). Social History: reports that she has never smoked. She has never used smokeless tobacco. She reports current drug use. Drug: Crack cocaine. She reports that she does not drink alcohol. Family History: family history includes Depression in her brother and mother; Diabetes in her maternal uncle and mother; Hypertension in her mother; No Known Problems in her daughter; Obstructive Sleep Apnea in her brother. Physical Exam: VITALS:Temp Av.9 ??F (38.3 ??C) Min: 100.2 ??F (37.9 ??C) Max: 101.6 ??F (38.7 ??C) BP Min: 114/74 Max: 159/114 Pulse Av.5 Min: 99 Max: 112 Heart Rate (Monitor) Av.3 Min: 103 Max: 112 Resp Av.7 Min: 18 Max: 30 SpO2 Av % Min: 87 % Max: 98 % O2 Flow Rate (l/min): 2 l/min O2 Device: Nasal cannula No intake/output data recorded. Weight: Wt Readings from Last 1 Encounters: 05/21/23 270 lb (122.5 kg) BMI: Body mass index is 49.38 kg/m??. Exam: General: Obese Skin: Normal appearance, normal turgor, no rashes HEENT: Normocephalic, atraumatic, no flaring Eyes: nonicteric, intact extra occular movement, PERRL Neck: normal, supple, no lymphadenopathy Heart: regular rate and rhythm, S1, S2 normal, no murmur, click, rub or gallop Lungs: shallow breathing, + expiratory wheezing ant lobs Abdominal: soft, non-tender; bowel sounds normal; no masses, no organomegaly : external genitalia normal in appearance Extremities: no deformities, joint mobility appears intact, no clubbing Neuro: Non-focal, CN intact, sensory and motor intact Psychological: alert and oriented X3, appropriate mood and affect, Intact judgement and memory Data Review: XR CHEST SINGLE VIEW PORTABLE Result Date: 05/21/2023 IMPRESSION: No acute cardiopulmonary abnormality. XR CHEST SINGLE VIEW PORTABLE Result Date: 04/30/2023 IMPRESSION: No acute cardiopulmonary abnormality. No infiltrate. Lab Results Component Value Date WBC 8.35 05/21/2023 HEMOGLOBIN 12.8 05/21/2023 HEMATOCRIT 38.6 05/21/2023 PLATELETCNT 174 05/21/2023 MCV 91.5 05/21/2023 Lab Results Component Value Date SODIUM 133 (L) 05/21/2023 POTASSIUM 3.8 05/21/2023 CHLORIDE 97 (L) 05/21/2023 CO2VEN 28 05/21/2023 ANIONGAP 11.8 05/21/2023 GLUCOSE 140 (H) 05/21/2023 BUN 10 05/21/2023 CREATININE 0.70 05/21/2023 BCRATIO8 14 05/21/2023 TOTALPROTEIN 7.0 05/21/2023 ALBUMIN 3.6 05/21/2023 CALCIUM 9.4 05/21/2023 TBIL 0.5 05/21/2023 SGOTAST 12 05/21/2023 SGPTALT 19 05/21/2023 ALKALINEPHO 84 05/21/2023 GFRNA >60 05/21/2023 GFRA >60 05/21/2023 Lab Results Component Value Date PHARTERIAL 7.37 04/30/2023 PO2ART 66 (L) 04/30/2023 [id number] 59 (H) 04/30/2023 O2ART 89 (L) 04/30/2023 Lab Results Component Value Date CPK 67 10/02/2022 TROPONINI <0.300 02/08/2022 No results found for: AMYL , AMYLASE Lab Results Component Value Date LIPASE 30.7 12/16/2021 Lab Results Component Value Date CHOLESTEROL 131 02/21/2021 TRIGLYCRIDES 203 (H) 02/21/2021 HDLCHOLESTE 27.6 (L) 02/21/2021 LDL 63 02/21/2021 I reviewed images and test results. My personal interpretation is infiltration or effusion Assessment/Plan: Principal Problem: COPD exacerbation (HCC) Plan Acute asthma exacerbation - present upon admisison - pt may have undiagnosed obstructive pulmonary disease- may need PFT as an out pt - continue IV steroid, bronchodilator protocol - we will consult Pulmonary further recommendation Probable acute bronchitis - present upon admission. WBC was wnl. Viral cause is suspected. -Chest x-ray showed no signs of infiltration - influenza, RSV, COVID-19 PCR negative - p.r.n. Tylenol for fever, p.r.n. Tessalon, Robitussin for cough Acute respiratory failure with hypoxia due to probable acute bronchitis and asthma exacerbation - patient's RR 30, O2 sat 88% on room air, and required 2 L of oxygen while pt was in ED - try to wean off oxygen if possible - will check magnesium and replace accordingly Sepsis due to unknown organidm - met sepsis criteria in the ED: Temperature 101.6, tachycardia, tachypnea - qSOFA- 1 - blood culture results pending. - received Rocephin, zithromax in ED. Will continue Zithromax - repeat CBC in AM Mild hyponatremia - Na 133 upon admission - most likely due to diuretic use however unable to exclude viral pneumonia - will hold furosemide, HCTZ if the level worsens - repeat level in AM Hyperglycemia - serum glucose 140 in ED. The patient denies a history of diabetes, however type 2 DM was mentioned in medical record, patient's hemoglobin A1c was 6.9 on May 01, 2023, and on metformin - will administer a small dose of NPH, and continue while patient is receiving IV steroid - will hold metformin- will add Accu-Chek and SSI- adjust the dose accordingly HTN - continue furosemide, , Dyazide if Na remains stable - continue metoprolol - continue to monitor and treat accordingly Hyperlipidemia - fat chondral diet, simvastatin Crack cocaine use - last use was reported 3 days ago. Dicussed about wean off / cessation Anxiety/ depression/ Bipolar disorder - pt denies of SI/HI upon admission - continue abilify, cogentin, cymbalta, atarax, trazodone GERD - protonix daily KWABENA - non compliance with CPAP - KWABENA precaution Obesity - BMI 53.86 upon admission - discussed about life style cahnge Disposition: Admit to medical VTE Prophylaxis: Lovenox 40mg Q24h Advance Directives: Full Code- pt does not have living will/POA Advance Care Planning: Aggregate yhwf-fc-fwog time, greater than 16 minutes was spent discussing end-of-life care planning with patient/family and/or Power of Vice President Of Academic Affairs. Discussed CPR, Intubation, treatment goals, and Quality of life/Intensity of care. Patient desires CPR-Full Treatment I have discussed the treatment plan with Alona Kemp and patient appears to be compliant with care plan I thoroughly assessed the patient's condition and Level of care continue current level of care Treatment Team: Consulting Physician: Baron Vergara MD Thank you very much for allowing the [facility] Adult Hospitalist Service to participate in the care of this patient By: Vaishali Escobedo APRN, CNP, 05/22/2023, 12:22 AM CDT Primary Care Physician: DAJA CARBALLO MD Cosigned by Alicia Romero MD at 05/22/2023 9:13 AM CDT Associated attestation - Alicia Romero MD - 05/22/2023 9:13 AM CDT I have seen and have examined the patient as part of a split/shared visit with the EVGENY on 05/22/2023nd have reviewed and confirmed all history, exam, and medical decision making elements documented,with additions/changes as noted. I have performed the substantive portion of the visit as follows: Total time spent on this encounter on 05/22/2023 including jointly obtained history, qxfh-ck-sruu interaction performing medically appropriate physical exam, patient counseling/education, interpretation of diagnostic results, care coordination and documentation was 45 minutes. This time is distinctly separate from services billed separately. documented in this encounter Consult Notes * Braon Vergara MD - 05/22/2023 9:56 AM CDT Pulmonary Consult Referring Physician: Dr. Romero for asthma exacerbation Date of Service: 05/22/23 HPI: Ms. Alona Kemp is a 52-year-old morbidly obese female with BMI of 50 with a past medical historyof asthma current tobacco use and obstructive sleep apnea presented with increasing shortness of breath and dyspnea on exertion Chest x-ray showed no acute cardiopulmonary process O2 sat was 88% on room air patient also had a fever 101.6 everyone at home smokes patient was started IV antibiotics and was admitted the medical floor At the time of evaluation she was on room air feeling much better denies shortness of breath or cough She is noncompliant with her CPAP and she continue smokes about 2 packs of cigarettes per day Urine drug screen was positive for cocaine and amphetamine Viral panel was negative Normal WBC count Patient Medical/Surgical History: Past Medical History Positives [...] not use cpap SBO (small bowel obstruction) ([facility]) 09/2018 Vitamin D deficiency Past Surgical History: Procedure Laterality Date SECTION 1994 CHOLECYSTECTOMY 2004 laparoscopic [facility]ONOSCOPY [facility] (Does not remember the DRKyung) COLONOSCOPY N/A 11/16/2018 Procedure: COLONOSCOPY - POLYPS, BIOPSIES; Surgeon: Damian Gallardo DO; Location: [facility]; Service: Gastroenterology EGD 2012? [facility] UPPER GASTROINTESTINAL ENDOSCOPY N/A 02/06/2019 Procedure: EGD, SMALL BOWEL BIOSY, GASTRIC POLYP, SAMANTHA TEST; Surgeon: Damian Gallardo DO; Location: [facility]; Service: Gastroenterology WISDOM TOOTH EXTRACTION [...] (2.5 MG/3ML) 0.083% nebulizer solution 2.5 mg ARIPiprazole extended release (ABILIFY MAINTENA) injection 400 mg azithromycin (ZITHROMAX) 500 mg in sodium chloride 0.9 % 250 mL IVPB benzonatate (TESSALON) capsule 100 mg benztropine (COGENTIN) tablet 0.5 mg calcium carbonate (TUMS) chewable tablet 1,000 mg glucose (GLUTOSE) 40 % gel GEL 15 g OR dextrose 50 % solution 12.5 g OR glucagon injection SOLR 1 mg OR glucagon injection SOLR 1 mg DULoxetine (CYMBALTA) capsule 60 mg enoxaparin (LOVENOX) injection 40 mg folic acid (FOLVITE) tablet 1 mg furosemide (LASIX) tablet 20 mg gabapentin (NEURONTIN) capsule 600 mg guaiFENesin (ROBITUSSIN) 100 MG/5ML liquid 200 mg hydrOXYzine (ATARAX) tablet 50 mg insulin glargine (LANTUS) 100 UNIT/ML injection 20 Units insulin lispro (HumaLOG) 100 UNIT/ML injection 2-12 Units insulin lispro (HumaLOG) 100 UNIT/ML injection 2-6 Units levothyroxine (SYNTHROID) tablet 50 mcg losartan (COZAAR) tablet 50 mg magnesium hydroxide (MILK OF MAGNESIA) 400 MG/5ML suspension 30 mL melatonin tablet 6 mg methylPREDNISolone Na Suc (PF) (Solu-MEDROL) injection 62.5 mg metoprolol Succinate (TOPROL-XL) XL tablet 25 mg ondansetron (ZOFRAN-ODT) disintegrating tablet 4 mg OR ondansetron (ZOFRAN) injection 4 mg pantoprazole (PROTONIX) injection 40 mg polyethylene glycol (GLYCOLAX, MIRALAX) packet 17 g Prochlorperazine Edisylate (COMPAZINE) injection 10 mg rOPINIRole (REQUIP) tablet 0.5 mg senna (SENOKOT) tablet 17.2 mg senna (SENOKOT) tablet 8.6 mg simvastatin (ZOCOR) tablet 10 mg traZODone (DESYREL) tablet 100 mg triamterene-hydrochlorothiazide (MAXZIDE) 37.5-25 MG per tablet 1 Tablet Allergies Allergen Reactions Geodon [Ziprasidone Hcl] Other (see Comments) Abnormal mouth movements Risperdal [Risperidone] Other (see Comments) Violent and agitated. Topamax [Topiramate] Other (see Comments) Difficulty with speech and word finding. Sulfa Antibiotics Hives REVIEW OF SYSTEMS: A complete 14 point ROS was negative except as mentioned in HPI. PHYSICAL EXAM: Vitals: 05/22/23 0400 05/22/23 0718 05/22/23 0836 05/22/23 0918 BP: 137/82 138/81 Pulse: 108 90 Resp: 22 16 Temp: 98.9 ??F (37.2 ??C) TempSrc: Tympanic SpO2: 96% 94% 95% 98% Weight: Height: Body mass index is 53.86 kg/m??. General appearance: in no obvious distress. [...] Studies Lab Results Component Value Date SODIUM 138 05/22/2023 POTASSIUM 4.9 05/22/2023 CHLORIDE 104 05/22/2023 CO2VEN 24 05/22/2023 GLUCOSE 347 (H) 05/22/2023 ANIONGAP 14.9 05/22/2023 BUN 12 05/22/2023 CREATININE 0.86 05/22/2023 CALCIUM 8.7 05/22/2023 Lab Results Component Value Date MAGNESIUM 1.6 05/21/2023 Lab Results Component Value Date PHOSPHORUS 2.7 [...] No site given. Susceptibility Escherichia coli - [facility] II Ampicillin Resistant mcg/ml Ampicillin/sulbactam Intermediate mcg/ml Cefepime Susceptible mcg/ml Ceftriaxone Susceptible mcg/ml Gentamicin Susceptible mcg/ml Levofloxacin Susceptible mcg/ml Meropenem Susceptible mcg/ml Piperacillin/Tazobactam Susceptible mcg/ml Tobramycin Susceptible mcg/ml Trimeth/Sulfamethoxazole Susceptible mcg/ml Blood Culture #1 Specimen: Blood; Culture Result Value Ref Range Status CULTURE RESULTS NO GROWTH WITHIN 5 DAYS, FINAL RESULT Final Lab Results Component Value Date WBC 7.11 05/22/2023 HEMOGLOBIN 12.4 05/22/2023 HEMATOCRIT 38.5 05/22/2023 PLATELETCNT 182 05/22/2023 MCV 94.4 05/22/2023 @ Lab Results Component Value Date INR 1.1 01/02/2023 PTP 13.8 01/02/2023 No results for input(s): PHARTERIAL , CO2ART , CDU1YXC , PO2ART , O2ART in the last 72 hours. Radiology: XR CHEST SINGLE VIEW PORTABLE Result Date: 05/21/2023 IMPRESSION: No acute cardiopulmonary abnormality. Impression: Patient Active Problem List Diagnosis Lumbar pars defect Lumbar facet arthropathy GERD (gastroesophageal reflux disease) HTN (hypertension) HLD (hyperlipidemia) Bipolar disorder (HCC) Depression Hypothyroid Sepsis (HCC) Enterocolitis Abnormal CT scan Cocaine use Morbid obesity (HCC) Small bowel obstruction (HCC) Anxiety Type 2 diabetes mellitus, without long-term current use of insulin (HCC) Dehydration UTI (urinary tract infection) Influenza A H1N1 infection COVID-19 virus infection Influenza A Vitamin D deficiency SBO (small bowel obstruction) (HCC) KWABENA (obstructive sleep apnea) Nephrocalcinosis NAFLD (nonalcoholic fatty liver disease) Morbid obesity (HCC) IBS (irritable bowel syndrome) HTN (hypertension) DDD (degenerative disc disease), lumbar Cocaine abuse (HCC) Adenomatous colon polyp HLD (hyperlipidemia) Stimulant withdrawal (HCC) Crack cocaine use Asthma exacerbation Plan DC IV steroids Start p.o. prednisone Nebulizers Antitussives Obstructive sleep apnea Plan Sleep study as an outpatient Encouraged to lose weight Discussed sleep hygiene Tobacco use Plan Smoking cessation PFT's as an outpatient Drug abuse Plan Abstinence from cocaine and amphetamine Thank you very much for this consultation I will follow with you Discussed with Dr. Romero Documentation for this visit on May 21 was completed using a template. I have seen and examinedthe patient. Everything documented was personally performed at this visit with the necessary additions, deletions and changes made as appropriate. Baron Vergara MD 05/22/2023 9:56 AM CDT documented in this encounter ED Notes * Nikki Lugo RN - 05/22/2023 12:24 AM CDT Pt transferred to 2S via wheelchair. IV saline locked. VSS. Pt remains A&O x 4 and in stable condition upon transport. Pt belongings at bedside. * Nikki Lugo RN - 05/21/2023 11:00 PM CDT Pt wheezy and SOB after using commode. ERP notified. * Nikki Lugo RN - 05/21/2023 10:56 PM CDT Pt up to bedside commode. No signs of distress noted * Abe Couch MD - 05/21/2023 10:13 PM CDTAssociated Order(s): EKG 12 LEAD; Critical Care Chief Complaint Patient presents with Shortness of Breath Fever 52-year-old female presenting to the emergency department with shortness of breath. She states she has been having shortness of breath for a month however has been worse for the past few days, has a cough which is nonproductive, no chest pain, some nausea, no vomiting. During last hospitalization she was diagnosed with COPD, sent home on antibiotics and steroid, she completed the steroid, she went to a walk-in clinic was put on a new course of antibiotics which he finished yesterday. She was noted on arrival to be febrile today, she had not taken her temperature at home. There are no exacerbating or alleviating factors otherwise. She is not normally on oxygen. No current facility-administered medications for this encounter. Current Outpatient Medications Medication Sig Dispense Refill albuterol (PROVENTIL, VENTOLIN) (2.5 MG/3ML) 0.083% Nebulizer Soln 3 mL by Nebulization route every6 hours as needed for Wheezing. 360 mL 0 benztropine (COGENTIN) 0.5 MG Tablet Take 0.5 [...] not use cpap SBO (small bowel obstruction) (HCC) 09/2018 Vitamin D deficiency Past Surgical History: Procedure Laterality Date SECTION 1994 CHOLECYSTECTOMY [address] [facility] (Does not remember the DRKyung) COLONOSCOPY N/A 11/16/2018 Procedure: COLONOSCOPY - POLYPS, BIOPSIES; Surgeon: Damian Gallardo DO; Location: [facility]; Service: Gastroenterology EGD 2012? [facility] UPPER GASTROINTESTINAL ENDOSCOPY N/A 02/06/2019 Procedure: EGD, SMALL BOWEL BIOSY, GASTRIC POLYP, SAMANTHA TEST; Surgeon: Damian Gallardo DO; Location: [facility]; Service: Gastroenterology WISDOM TOOTH EXTRACTION [...] Needs: Not on file Food Insecurity Needs: No Food Insecurity (04/30/2023) Hunger Vital Sign Worried About Running Out of Food in the Last Year: Never true Ran Out of Food in the Last Year: Never true Transportation Needs: No Transportation Needs (04/30/2023) PRAPARE - Transportation Lack of Transportation (Medical): No Lack of Transportation (Non-Medical): No Physical Activity: Not on file Stress: Not on file Social Integration: Not on file Intimate Partner Violence: Not At Risk (04/30/2023) Humiliation, Afraid, Rape, and Kick questionnaire Fear of Current or Ex-Partner: No Emotionally Abused: No Physically Abused: No Sexually Abused: No Housing Stability: Low Risk (04/30/2023) Housing Stability Vital Sign Unable to Pay for Housing in the Last Year: No Number of Places Lived in the Last Year: 1 Unstable Housing in the Last Year: No BP 132/74 Pulse 100 Temp 100.2 ??F (37.9 ??C) (Tympanic) Resp 18 Ht 5' 2 (1.575 m) Wt 270 lb (122.5 kg) LMP 11/12/2019 SpO2 94% BMI 49.38 kg/m?? Review of Systems Constitutional: Positive for fatigue and fever. Negative for activity change and chills. Respiratory: Positive for cough, shortness of breath and wheezing. Negative for stridor. Gastrointestinal: Positive for nausea. Negative for abdominal pain and diarrhea. All other systems reviewed and are negative. Physical Exam Vitals and nursing note reviewed. Constitutional: Appearance: She is obese. She is ill-appearing. She is not toxic-appearing. HENT: Head: Normocephalic and atraumatic. Mouth/Throat: Mouth: Mucous membranes are moist. Eyes: Extraocular Movements: Extraocular movements intact. Conjunctiva/sclera: Conjunctivae normal. Cardiovascular: Rate and Rhythm: Normal rate and regular rhythm. Pulmonary: Effort: Pulmonary effort is normal. Tachypnea present. Breath sounds: Examination of the right-upper field reveals wheezing. Examination of the left-upperfield reveals wheezing. Examination of the right- middle field reveals wheezing. Examination of the left-middle field reveals wheezing. Examination of the right-lower field reveals decreased breath sounds and wheezing. Examination of the left-lower field reveals decreased breath sounds and wheezing.Decreased breath sounds and wheezing present. No rhonchi. Abdominal: General: Abdomen is flat. Palpations: Abdomen is soft. Musculoskeletal: General: Normal range of motion. Cervical back: Normal range of motion. Skin: General: Skin is warm and dry. Capillary Refill: Capillary refill takes less than 2 seconds. Neurological: General: No focal deficit present. Mental Status: She is alert and oriented to person, place, and time. Psychiatric: Behavior: Behavior normal. EKG 12 LEAD Performed by: Abe Couch MD Authorized by: Abe Couch MD Interpretation: Interpretation: abnormal Rate: ECG rate: 112 ECG rate assessment: tachycardic Rhythm: Rhythm: sinus rhythm and sinus tachycardia Ectopy: Ectopy: none QRS: QRS axis: Normal QRS intervals: Normal QRS conduction: normal ST segments: ST segments: Normal T waves: T waves: normal Q waves: Abnormal Q-waves: not present Other findings: Other findings: LVH Critical Care Performed by: Abe Couch MD Authorized by: Abe Couch MD Critical care provider statement: Critical care time (minutes): 40 Critical care was necessary to treat or prevent imminent or life-threatening deterioration of the following conditions: Sepsis Critical care was time spent personally by me on the following activities: Development of treatmentplan with patient or surrogate, examination of patient, evaluation of patient's response to treatment, obtaining history from patient or surrogate, review of old charts, re-evaluation of patient's condition, pulse oximetry, ordering and review of radiographic studies, ordering and review of laboratory studies and ordering and performing treatments and interventions I assumed direction of critical care for this patient from another provider in my specialty: no Care discussed with: admitting provider Recent Results (from the past 24 hour(s)) CMP (Comprehensive Metabolic Panel) Result Value Ref Range SODIUM 133 (L) 136 - 145 mmol/L POTASSIUM 3.8 3.5 - 5.1 mmol/L CHLORIDE 97 (L) 98 - 107 mmol/L CO2, VENOUS 28 22 - 30 mmol/L ANION GAP 11.8 <18.0 mmol/L GLUCOSE 140 (H) 70 - 99 mg/dL BUN 10 10 - 20 mg/dL CREATININE, BLOOD 0.70 0.60 - 1.00 mg/dL BUN/CREATININE RATIO 14 12 - 20 ratio TOTAL PROTEIN 7.0 6.3 - 8.2 g/dL ALBUMIN 3.6 3.5 - 5.0 g/dL A/G RATIO 1.1 1.0 - 2.2 CALCIUM 9.4 8.7 - 10.5 mg/dL T BILI 0.5 0.2 - 1.2 mg/dL SGOT (AST) 12 5 - 34 U/L SGPT (ALT) 19 0 - 55 U/L ALKALINE PHOSPHATASE 84 40 - 150 U/L GFR, ESTIMATED >60 >=60 GFR, EST. >60 >=60 GFR, EST. NONAFRICAN >60 >=60 Lactic Acid (Lactate) Result Value Ref Range LACTIC ACID 1.7 0.7 - 2.0 mmol/L TANIA-COV-2 Flu RSV - (Quad PCR) Specimen: Nasal; Swab Result Value Ref Range FLU A Negative Negative, Error FLU B Negative Negative RESP SYNC VIRUS Negative Negative SARSCOV2 NOT DETECTED (Reference Range for this test is Not Detected) B-Type Natriuretic Peptide (BNP) Result Value Ref Range B TYPE NATRIURETIC PEPTIDE 82 <100 pg/mL TROPONIN I, HIGH SENSITIVITY (HSTRP) Result Value Ref Range TROPONIN I, HIGH SENSITIVITY- TREVINO 3 <=14 ng/L CBC with Auto Differential Result Value Ref Range WBC 8.35 4.00 - 12.00 10(3)/mcL RBC 4.22 3.80 - 5.30 10(6)/mcL HEMOGLOBIN (HGB) 12.8 12.0 - 15.8 g/dL HEMATOCRIT (HCT) 38.6 36.0 - 47.0 % MCV 91.5 82.0 - 96.0 fL MCH 30.3 26.0 - 34.0 pg MCHC 33.2 31.0 - 36.0 g/dL PLATELET COUNT 174 140 - 440 10(3)/mcL RDW 13.5 11.8 - 15.5 % MPV 11.4 9.7 - 12.4 fL NEUTROPHILS 88.1 (H) 47.0 - 73.0 % LYMPHOCYTES 4.7 (L) 18.0 - 42.0 % MONOCYTES 4.7 4.0 - 12.0 % EOSINOPHILS 2.3 0.0 - 5.0 % BASOPHILS 0.2 0.0 - 1.0 % ABSOLUTE NEUTROPHILS 7.36 1.60 - 7.70 10(3)/mcL ABSOLUTE LYMPHOCYTES 0.39 (L) 1.30 - 3.20 10(3)/mcL ABSOLUTE MONOCYTES 0.39 0.20 - 1.00 10(3)/mcL ABSOLUTE EOSINOPHIL 0.19 0.00 - 0.40 10(3)/mcL ABSOLUTE BASOPHILS 0.02 0.00 - 0.10 10(3)/mcL NRBC PER 100 WBC 0 RESULTS ARE CONSISTENT WITH PERIPHERAL SMEAR REVIEW Yes POIKILOCYTOSIS 1+ OVALOCYTES Present Urinalysis w/ Reflex Result Value Ref Range SPECIFIC GRAVITY 1.005 1.003 - 1.030 URINE PH 7.0 5.0 - 9.0 WBC ESTERASE Negative Negative NITRITE Negative Negative PROTEIN, RANDOM URINE Negative Negative URINE GLUCOSE, QUAL Negative Negative URINE KETONES Negative Negative UROBILINOGEN Normal Normal mg/dL URINE BLOOD Negative Negative dylan/ul URINALYSIS COLOR Yellow URINALYSIS CLARITY Clear Urine Drug Screen Result Value Ref Range UR AMPHETAMINE NON DETECTED NON DETECTED UR BENZODIAZEPINES NON DETECTED NON DETECTED UR COCAINE METABOLITE DETECTED (A) NON DETECTED UR OPIATES DETECTED (A) NON DETECTED UR PHENCYCLIDINE NON DETECTED NON DETECTED UR CANNABINOID NON DETECTED NON DETECTED UR BARBITURATE NON DETECTED NON DETECTED Imaging Results XR CHEST SINGLE VIEW PORTABLE (Final result) Result time 05/21/23 22:59:59 Final result by Rosario Warren MD (05/21/23 22:59:59) Impression: IMPRESSION: No acute cardiopulmonary abnormality. Narrative: EXAM DESCRIPTION: XR CHEST SINGLE VIEW PORTABLE REASON FOR STUDY: c/o SOB, productive cough, nausea, and chest pain x 1 month. Fever today. HX: HTN, DM TECHNIQUE: Single radiographic view of the chest acquired. COMPARISON: Chest x-ray of April 30, 2023. FINDINGS: LUNGS/PLEURA: There is limited evaluation of the middle and lower lung zones secondary to overlying soft tissue density. No focal consolidation or pneumothorax. No pleural effusion. HEART/MEDIASTINUM: Cardiac silhouette is normal. Remaining mediastinal silhouettes are unremarkable. HARDWARE/LINES/TUBES: EKG leads overlie the film. BONES: No acute findings. THIS IS AN ELECTRONICALLY VERIFIED FINAL REPORT 05/21/2023 10:57 PM - Electronically signed by Rosario Warren M.D. SN: Report ID: [id number] Reading Location: [place] [address] Medical Decision Making Patient presenting with fever and shortness of breath, need to evaluate for COVID influenza and RSValong with pneumonia, will obtain chest x-ray with a viral swabs as above, will check a lactic acidlevel given fever and SIRS criteria. Will also check urinalysis to ensure that there was not an occult urinary tract infection causing the fever. Depending on her response to therapy she may or may not require admission. Amount and/or Complexity of Data Reviewed Labs: ordered. Radiology: ordered and independent interpretation performed. Decision-making details documented in ED Course. Details: No appreciable infiltrate on my visualization ECG/medicine tests: ordered and independent interpretation performed. Decision- making details documented in ED Course. Details: No acute ischemic changes 12:04 AM CDT No obvious source of fever, lactic acid is 1.7, she has not been hypotensive tachycardia has improved with IV fluid administration, she did receive empiric antibiotics, case discussed nurse practitioner Vaishali accepting of the hospitalist service on behalf of Dr. Romero, will place a pulmonary consult for a.m., no need to consult Pulmonary/speak with him this evening, will begin patient under observation status. IV steroids have been administered along breathing treatment. Patient does not require repeat lactic acid given normal see a 1st lactic acid, no hypotension, no evidence of septic shock, there was also no definitive evidence of source of infection at this time. Clinical Impression 1. Hypoxia 2. Fever, unspecified fever cause 3. COPD exacerbation (HCC) Disposition: Admit * Nikki Lugo RN - 05/21/2023 10:09 PM CDT Pt O2 dropped into high 80's. Pt placed on 2L NC. ERP made aware * Nikki Lugo RN - 05/21/2023 10:03 PM CDT Pt medicated per provider orders. Pt educated on intended effects and side effects of medication and verbalized understanding, able to provide teach back of education. * Nikki Lugo RN - 05/21/2023 9:28 PM CDT Pt to ED with c/o SOB, productive cough, nausea, and chest pain x 1 month. Pt reports she was hospitalized recently for same complaint and low O2. States her O2 dropped to 88% today. Expiratory wheezes noted. Pt O2 94% on RA. Temp 101.6F. EKG obtained. Pt placed on nurse monitoring, NIBP, and SpO2. Sepsis protocol initiated. documented in this encounter Miscellaneous Notes * Plan of Care - Sahara Harman RN - 05/22/2023 5:27 PM CDT Problem: Adult Inpatient Plan of Care Goal: Plan of Care Review Outcome: Outcome Achieved Goal: Patient-Specific Goal (Individualized) Outcome: Outcome Achieved Goal: Absence of Hospital-Acquired Illness or Injury Outcome: Outcome Achieved Goal: Optimal Comfort and Wellbeing Outcome: Outcome Achieved Goal: Readiness for Transition of Care Outcome: Outcome Achieved Problem: Fall Injury Risk Goal: Absence of Fall and Fall-Related Injury Outcome: Outcome Achieved Problem: Pneumonia Goal: Fluid Balance Outcome: Outcome Achieved Goal: Resolution of Infection Signs and Symptoms Outcome: Outcome Achieved Goal: Effective Oxygenation and Ventilation Outcome: Outcome Achieved Problem: COPD (Chronic Obstructive Pulmonary Disease) Goal: Optimal Chronic Illness Coping Outcome: Outcome Achieved Goal: Optimal Level of Functional [place] Outcome: Outcome Achieved Goal: Absence of Infection Signs and Symptoms Outcome: Outcome Achieved Goal: Improved Nutrition Intake Outcome: Outcome Achieved Goal: Effective Oxygenation and Ventilation Outcome: Outcome Achieved * Interdisciplinary - Sahara Harman RN - 05/22/2023 5:25 PM CDT aware of pt BS. Pt to DC. Pt wheeled out with all belongings and paperwork to family vehicle * Aleida - Sahara Harman RN - 05/22/2023 12:[address] Romero notified of the remained critically high BS. Per Dr Romero next sliding scale dose can be given when do and will recheck BS at 1430 * Interdisciplinary - Sahara Harman RN - 05/22/2023 11:[address] Romero notified of pt critically high BS. BMP to be ordered and 12units of SSI humalog. * Aleida - Marina Vázquez RN - 05/22/2023 11:15 AM CDT Discharge instructions explained to patient. New meds explained to patient. She verbalized understanding. Medication tool filled out with patient's medications. Given to patient and explained. * Aleida - Che Chow - 05/22/2023 11:04 AM CDT Director Of Cloud Services - Transition Arrangements Coordinated Note - Transition Specialists do not coordinate all transitions or aspects of transitions- CONFIRM PATIENT READINESS WITH HEEL BRUSHER PRIOR TO DISCHARGE Buffing Machine Tender notified: yes, notified Estefani at the following time 1105 via in person. Additional Details of Discharge Plan: N/A Hospital Follow-Up Appointment Information: Readmission risk level (if calculated) is: 3-Medium High (Note: TS makes the PRIMARY Hospital Follow Up appointment for Medium-High, High Risk and Heart Failure patients ONLY) Appointment(s) scheduled: with Concha Farnsworth M.D. on 05/31/ at 1300 (TS called to schedule an appointment and Suah at the MD office stated patient already has one on05/31 @ 1300. TS confirmed this was the earliest evgeny available). * Che Billingsley - 05/22/2023 11:02 AM CDT Director Of Cloud Services Coordination Note SUMMARY - Director Of Cloud Services currently working the potential transition plan(s): 05/22/2023 @ 11:02 AM CDT (PSH, TS) Follow Up Appointment (See detail within the referral type(s) below for information on what is needed to complete coordination Note - the Transition Specialists do not coordinate all transition types - please direct all question regarding hospital transition to the Buffing Machine Tender) Readmission risk level (if calculated) is: 3-Medium High Primary Care Provider: PCP: DAJA CARBALLO MD Primary Medical Coverage: [facility] Medicaid Secondary Medical Coverage: N/A Hospital Follow-Up appointment(s) scheduling status: Appointment(s) scheduled: with Daja Carballo M.D. on 05/31 at 1300 * Aleida - Estefani Crespo RN - 05/22/2023 10:44 AM CDT Case Management Discharge Readiness Note Alona's readmission risk level (if calculated) is: 3-Medium High Patient Class: Outpatient with Observation Services Consecutive Inpatient Midnights :none - not currently inpatient class Actual day(s) of hospital stay (compare to working DRG): 1 Discharge: Final home discharge arrangements: home with no services Mode of transportation at discharge:: Family car Additional Information regarding DC Plan: N/A Discharge Plan Notification/ Verification Patient's Phone numbers: [phone] (home) Patient's preferred discharge phone number for follow up appointments, etc: (if different from above): N/A Information for bedside nurse to call report and fax PACT Document in Sticky Note?: Not applicable - no external home care agencies or hemodialysis Nursing notified: YES . Patient/ Decision Maker and family notified: parent Lyla Family/ Caregiver's readiness, willingness and ability to support patient with anticipated community discharge plan: Spoke with family/caregiver(s) (Lyla), who is/are agreeable to anticipated discharge plan. No concerns expressed. IM Letter Documentation, if applicable N/A - Payor is not Medicare Decision Maker / Caregiver Information Medical Decision Maker Assessment: Patient is medical decision-maker Graphic Designer/Mobile Home Set Up Person Name: Lyla * Plan of Care - Estefani Crespo RN - 05/22/2023 10:27 AM CDT Case Management Comprehensive Assessment Alona's readmission risk level (if calculated) is: 3-Medium High Patient Class: Outpatient with Observation Services Consecutive Inpatient Midnights :none - not currently inpatient class Actual day(s) of hospital stay (compare to working DRG): 1 Reason for Buffing Machine TenderSenior Grants Officer: High Risk for Readmission (High, Medium- High) and Re-hospitalization Alona is in the hospital due to: asthma exacerbation Prior to Admission (Support, Living Environment,ADLs IADLs, Transportation, Employment, Access to Care) Patient is a 52-yo single, disabled, female with a PMHx of anxiety, depression, bipolar disorder, cocaine abuse, DDD, GERD, HLD, HTN, hypothyroid, IBS,NAFLD, KWABENA. Patient is A&OX3. Address and phone number verified. She states she lives with her mom and step dad in their single story home with a ramp to enter. She receives a disability income of $943 monthly and has a outsole caser through [employer] who assists her with managing finances. Patient is independent with bathing and dressing and has a shower chair. She has both a cane and a walker. States she assists with ip technology transactions attorney. Either her outsole caser or her mom takes her to and from appointments with PCP DAJA CARBALLO MD. She has health insurance and prescription coverage of Medicaid [place]. There are no difficulties obtaining or affording medications through her pharmacy [facility]. Her mother Lyla is HCPOA (copy on fie). nebulizer Alona is a 30 day re-hospitalization Index hospitalization dates: 04/29 - 05/01 Index hospitalization principle problem: acute respiratory failure with hypoxia Index Hospitalization Discharge disposition and services (ie., home health, SNF, equipment - include the names of the agency and services / equipment provided by agency ): DME of a nebulizer through [facility] Did patient declines services on index hospitalization?: No Alona/family's account of events from index hospital discharge leading to current hospitalization: Patient returned to [facility] ED with fever and satting 88% on room air. Last use of crack cocaine was 3 days prior to this admission. She has KWABENA, not compliant with CPAP, and is a 2 pack per day smoker. After last admission, patient canceled her follow up appointment with Dr. Vergara on 05/15. She statesshe did not follow up with her PCP either after her last admission. She states she did draft roller picker her medications after last admission. Plan of Care (Problem/ situation/ barrier + goals/ milestones + interventions + evaluation of progress = Plan of Care) Hospital Plan: Pulmonology following, steroids, nebs. Anticipated Discharge Plan: Home 05/22/23 Patient/ patient kiosk sales representative's preferences regarding the discharge plan: home Family/ Caregiver's readiness, willingness and ability to support patient with anticipated community discharge plan: Spoke with family/caregiver(s) (mother Lyla), who is/are agreeable to anticipated discharge plan. No concerns expressed. SUMMARY (summary of interaction with patient/decision maker, family and interdisciplinary team) Met with Alona and introduced self and role and discussed plan of care. PREMA met with patient who states she is returning home to her mother's house at discharge. Plan is home with no services needed. PREMA spoke to her mother Lyla by phone who agreed with this plan. IM Letter Documentation, if applicable Medicare Notice Given to Responsible Constitution Party: Decision Maker / Service Cleaner Information Patient is medical decision-maker Graphic Designer/Mobile Home Set Up Person Name: Lyla No new referrals for Director Of Cloud Services at this time. * Aleida - Sujata Crenshaw, JANICE - 05/22/2023 8:59 AM CDT Respiratory Therapy Assessment And Education Points 0 [...] To: patient Comments: By: SUJATA CRENSHAW RRT; 05/22/2023, 8:59 AM CDT * Interdisciplinary - Sahara Harman RN - 05/22/2023 8:04 AM CDT Pt in bed resting at this time. A&Ox4. C/o headache. No noted signs of distress. Call light in reach. Alarms active and audible. Will continue with assessment, documentation, and monitoring. * Plan of Care - Jevon Spann RN - 05/22/2023 1:12 AM CDT Problem: Adult Inpatient Plan of Care Goal: Plan of Care Review Flowsheets (Taken 05/22/2023 011) Plan of Care Reviewed With: patient Progress: progress toward functional goals is gradual Today's Goal: SpO2 above 88% Outcome Evaluation: SpO2 above 88% on 2L NC Does the patient need assistance with discharge and/or transitioning to the next level of care?: Yes, will consult case management Goal: Patient-Specific Goal (Individualized) Flowsheets (Taken 05/22/2023 0110) Today's Goal: SpO2 above 88% Goal: Absence of Hospital-Acquired Illness or Injury Intervention: Prevent and Manage VTE (Venous Thromboembolism) Risk Flowsheets (Taken 05/22/202357) VTE Prevention/Management: anticoagulant therapy initiated Goal: Optimal Comfort and Wellbeing Intervention: Monitor Pain and Promote Comfort Flowsheets (Taken 05/22/2023109) Pain Management Interventions: care clustered Intervention: Provide Person-Centered Care Flowsheets (Taken 05/22/202357) Trust Relationship/Rapport: care explained choices provided thoughts/feelings acknowledged Problem: Fall Injury Risk Goal: Absence of Fall and Fall-Related Injury Intervention: Identify and Manage Contributors Flowsheets Taken 05/22/2023109 Self-Care Promotion: independence encouraged BADL personal objects within reach Taken 05/22/202357 Medication Review/Management: medications reviewed Intervention: Promote Injury-Free Environment Flowsheets (Taken 05/22/2023109) Safety Promotion/Fall Prevention: bed alarm commode/urinal/bedpan at bedside fall reduction program maintained environmental modification lighting adjusted for task/safety low bed nonskid shoes/slippers when out of bed Problem: Pneumonia Goal: Fluid Balance Intervention: Monitor and Manage Fluid Balance Flowsheets (Taken 05/22/2023109) Fluid/Electrolyte Management: fluids provided Goal: Resolution of Infection Signs and Symptoms Intervention: Prevent Infection Progression Flowsheets (Taken 05/22/2023109) Infection Management: aseptic techniques maintained antimicrobials initiated Fever Reduction/Comfort Measures: lightweight clothing lightweight bedding Goal: Effective Oxygenation and Ventilation Intervention: Promote Airway Secretion Clearance Flowsheets (Taken 05/22/2023109) Cough And Deep Breathing: done independently per patient Intervention: Optimize Oxygenation and Ventilation Flowsheets (Taken 05/22/2023109) Head of Bed (HOB) Positioning: HOB at 30-45 degrees Airway/Ventilation Management: pulmonary hygiene promoted Problem: COPD (Chronic Obstructive Pulmonary Disease) Goal: Optimal Chronic Illness Coping Intervention: Support and Optimize Psychosocial Response Flowsheets Taken 05/22/2023109 Supportive Measures: active listening utilized verbalization of feelings encouraged self-responsibility promoted Taken 05/22/202357 Family/Support System Care: self-care encouraged support provided Goal: Optimal Level of Functional [place] Intervention: Optimize Functional Ability Flowsheets (Taken 05/22/2023109) Activity Management: activity adjusted per tolerance Environmental Support: calm environment promoted Self-Care Promotion: independence encouraged BADL personal objects within reach Goal: Absence of Infection Signs and Symptoms Intervention: Prevent or Manage Infection Flowsheets (Taken 05/22/2023 0110) Infection Management: aseptic techniques maintained antimicrobials initiated Fever Reduction/Comfort Measures: lightweight clothing lightweight bedding Goal: Improved Nutrition Intake Intervention: Promote and Optimize Oral Intake Flowsheets (Taken 05/22/2023 0110) Oral Nutrition Promotion: rest periods promoted Goal: Effective Oxygenation and Ventilation Intervention: Promote Airway Secretion Clearance Flowsheets (Taken 05/22/2023 011) Activity Management: activity adjusted per tolerance Cough And Deep Breathing: done independently per patient Intervention: Optimize Oxygenation and Ventilation Flowsheets (Taken 05/22/2023 0110) Fluid/Electrolyte Management: fluids provided Head of Bed (HOB) Positioning: HOB at 30-45 degrees Airway/Ventilation Management: pulmonary hygiene promoted * Aleida - Jevon Spann RN - 05/22/2023 1:03 AM CDT Initial Skin Assessment Patient assessed with 2nd RN Dhara Brower noted: cabezas on right fingers PRESSURE INJURY AND MOISTURE MANAGEMENT RECOMMENDATIONS: Moisture Management: Patient is Continent and has no moisture problems at this time Pressure Injury Prevention Interventions: Patient is independent in Room and/or Bed Specialty Surface Selection: Moisture Score: 4-->rarely moist Mobility Score: 3-->slightly limited Total Blas Score: 21 Patient has intact skin on the pelvis and trunk: Bed Selection based on Blas Moisture and Mobility: Moisture 4: Mobility 3 or 4: No Specialty Bed Indicated Wound care: N/A JEVON SPANN RN * Aleida - Jevon Spann RN - 05/22/2023 12:29 AM CDT Patient to room 232 via wheelchair from ED. A&OX4. Oriented to room. Belongings with patient. Call light in reach. * Aleida - Rosy Key RN - 05/21/2023 10:13 PM CDT OnCall Sepsis Note Sepsis BPA alert received. Chart Reviewed, no action needed due to: All bundle components met at this time documented in this encounter Plan of Treatment Upcoming Encounters Date Type Department Care Team (Late st Contact Info) Description 03/27/2024 8:30 AM DEEP FRYER ASSEMBLER [facility] [address] [place] [address] Burt Eastman MD [address] [address] 03/27/2024 8:30 AM DEEP FRYER ASSEMBLER - 03/27/2024 9:00 AM DEEP FRYER ASSEMBLER [facility] [address] [place] [address] Burt Eastman MD [address] [address] COLONOSCOPY 04/09/2024 1:15 PM DEEP FRYER ASSEMBLER Office Visit [facility] - Pulmonology & [facility] Medicine [facility] [address] [place] [address] Baron Vergara MD [address] [place] [address] Scheduled Orders Name Type Priority Associated Diagnoses Orde r Schedule Pulse Oximetry, Spot PFT Routine WITH VITALS until discontinued starting 05/22/2023 Scheduled Procedures Name Priority Associated Diagnoses Date/Ti me COLONOSCOPY HISTORY OF COLON POLYPS 03/27/2024 8:30 AM DEEP FRYER ASSEMBLER documented as of this encounter Procedures Procedure Name Priority Date/Time Associated Diagnosis Comments POCT GLUCOSE Routine 05/22/2023 4:13 PM CDT POCT GLUCOSE Routine 05/22/2023 2:53 PM CDT POCT GLUCOSE Routine 05/22/2023 12:36 PM CDT BASIC METABOLIC PANEL W/ CALCIUM TOTAL STAT 05/22/2023 11:31 AM CDT POCT GLUCOSE Routine 05/22/2023 11:10 AM CDT POCT GLUCOSE Routine 05/22/2023 8:01 AM CDT CBC WITH AUTO DIFFERENTIAL Routine 05/22/2023 6:34 AM CDT COMPLETE BLOOD COUNT (CBC) WITH DIFF Routine 05/22/2023 6:34 AM CDT BASIC METABOLIC PANEL W/ CALCIUM TOTAL Routine 05/22/2023 6:34 AM CDT POCT GLUCOSE Routine 05/22/2023 2:22 AM CDT POCT GLUCOSE Routine 05/22/2023 12:34 AM CDT AEROSOL NEBULIZER-INITIAL STAT 05/21/2023 11:20 PM CDT URINALYSIS REFLEX IF INDICATED BY ABNORMAL RESULTS STAT 05/21/2023 11:01 PM CDT URINE DRUG SCREEN STAT 05/21/2023 11: 01 PM CDT XR CHEST SINGLE VIEW PORTABLE STAT 05/21/2023 10:36 PM CDT CRITICAL CARE Routine 05/21/2023 10:13 PM CDT RSV,SARS-COV-2,INFLUE NZA A&B BY PCR STAT 05/21/2023 9:41 PM CDT TROPONIN I, HIGH SENSITIVITY (HSTRP) STAT 05/21/2023 9:41 PM CDT CBC WITH AUTO DIFFERENTIAL STAT 05/21/2023 9:41 PM CDT MAGNESIUM (MG) Routine 05/21/2023 9:41 PM CDT LACTIC ACID (LACTATE) STAT 05/21/2023 9:41 PM CDT CULTURE, BLOOD STAT 05/21/2023 9:41 PM CDT CULTURE, BLOOD STAT 05/21/2023 9:41 PM CDT CMP (COMPREHENSIVE METABOLIC PANEL) STAT 05/21/2023 9:41 PM CDT COMPLETE BLOOD COUNT (CBC) WITH DIFF STAT 05/21/2023 9:41 PM CDT B-TYPE NATRIURETIC PEPTIDE (BNP) STAT 05/21/2023 9:41 PM CDT EKG 12 LEAD STAT 05/21/2023 9:22 PM CDT documented in this encounter Results * (ABNORMAL) POCT Glucose (05/22/2023 4:13 PM CDT) Only the most recent of7 resultswithin the time period is included. [facility] GLUCOSE,BEDSID E POCT 232(H) 70 - 99 mg/dL 05/22/2023 4:20 PM CDT [facility] Comment: RN Notified NELSON Blood 05/22/2023 4:13 PM CDT 05/22/2023 4:19 PM CDT us None Provider POINT OF CARE TESTING Final Resu lt [facility] [address] [place] [address] * (ABNORMAL) Basic Metabolic Panel w/ Calcium Total (05/22/2023 11:31 AM CDT) Only the most recent of2 resultswithin the time period is included. [facility] SODIUM 132(L) 136 - 145 mmol/L 05/22/2023 12:15 PM CDT [facility] POTASSIUM 5.1 3.5 - 5.1 mmol/L 05/22/2023 12:15 PM CDT [facility] CHLORIDE 100 98 - 107 mmol/L 05/22/2023 12:15 PM CDT [facility] CO2, VENOUS 21(L) 22 - 30 mmol/L 05/22/2023 12:15 PM CDT [facility] ANION GAP 16.1 <18.0 mmol/L 05/22/2023 12:15 PM CDT [facility] GLUCOSE 487(HH) 70 - 99 mg/dL 05/22/2023 12:15 PM CDT [facility] BUN 13 10 - 20 mg/dL 05/22/2023 12:15 PM T [facility] CREATININE, BLOOD 0.88 0.60 - 1.00 mg/dL 05/22/2023 12:15 PM T [facility] BUN/CREATININE RATIO 15 12 - 20 ratio 05/22/2023 12:15 PM [facility] CALCIUM 9.0 8.7 - 10.5 mg/dL 05/22/2023 12:15 PM T [facility] GFR, ESTIMATED >60 >=60 05/22/2023 12:15 PM T [facility] Comment: Creatinine Clearance is the preferred criteria for selecting drug dose adjustments in renally impaired patients. ??The GFR is provided as additional pertinent clinical information. GFR is reported in mL/min/1.73 sq m. Calculation based on the Chronic Kidney Disease Epidemiology Collaboration (CKD- EPI) equation refit without adjustment for race. GFR, EST. >60 >=60 024 12:15 PM T [facility] GFR, EST. NONAFRICAN >60 >=60 05/22/2023 12:15 PM [facility] Blood Venipuncture / Unknown 05/22/2023 11:31 AM CDT 05/22/2023 11:36 AM CDT us Alicia Sweet MD CHEMISTRY ORDERABLES Final Re sult [facility] [address] [place] [address] * (ABNORMAL) CBC with Auto Differential (05/22/2023 6:34 AM CDT) Only the most recent of2 resultswithin the time period is included. WBC 7.11 4.00 - 12.00 10(3)/mcL 05/22/2023 7:47 AM CDT [facility] RBC 4.08 3.80 - 5.30 10(6)/mcL 05/22/2023 7:47 AM CDT [facility] HEMOGLOBIN (HGB) 12.4 12.0 - 15.8 g/dL 05/22/2023 7:47 AM CDT [facility] HEMATOCRIT (HCT) 38.5 36.0 - 47.0 % 05/22/2023 7:47 AM CDT [facility] MCV 94.4 82.0 - 96.0 fL 05/22/2023 7:47 AM CDT [facility] MCH 30.4 26.0 - 34.0 pg 05/22/2023 7:47 AM CDT [facility] MCHC 32.2 31.0 - 36.0 g/dL 05/22/2023 7:47 AM CDT [facility] PLATELET COUNT 182 140 - 440 10(3)/mcL 05/22/2023 7:47 AM CDT [facility] RDW 13.6 11.8 - 15.5 % 05/22/2023 7:47 AM CDT [facility] MPV 11.8 9.7 - 12.4 fL 05/22/2023 7:47 AM CDT [facility] NEUTROPHILS 94.3(H) 47.0 - 73.0 % 05/22/2023 7:47 AM CDT [facility] LYMPHOCYTES 3.9(L) 18.0 - 42.0 % 05/22/2023 7:47 AM CDT [facility] MONOCYTES 1.4(L) 4.0 - 12.0 % 05/22/2023 7:47 AM CDT [facility] EOSINOPHILS 0.1 0.0 - 5.0 % 05/22/2023 7:47 AM CDT [facility] BASOPHILS 0.3 0.0 - 1.0 % 05/22/2023 7:47 AM CDT [facility] ABSOLUTE NEUTROPHILS 6.70 1.60 - 7.70 10(3)/mcL 05/22/2023 7:47 AM CDT [facility] ABSOLUTE LYMPHOCYTES 0.28(L) 1.30 - 3.20 10(3)/mcL 05/22/2023 7:47 AM CDT [facility] ABSOLUTE MONOCYTES 0.10(L) 0.20 - 1.00 10(3)/mcL 05/22/2023 7:47 AM CDT [facility] ABSOLUTE EOSINOPHIL 0.01 0.00 - 0.40 10(3)/mcL 05/22/2023 7:47 AM CDT [facility] ABSOLUTE BASOPHILS 0.02 0.00 - 0.10 10(3)/mcL 05/22/2023 7:47 AM CDT [facility] NRBC PER 100 WBC 0 05/22/19 7:47 AM CDT [facility] RESULTS ARE CONSISTENT WITH PERIPHERAL SMEAR REVIEW Yes 05/22/2023 7:47 AM CDT [facility] Blood Venipuncture / Unknown 05/22/2023 6:34 AM CDT 05/22/2023 7:02 AM CDT us Vaishali Escobedo VIDEOGAME DESIGNER, SLAT BASKET MAKER HELPER HEMATOLOGY ORDERABLES Radha l Result [facility] [address] [place] [address] * (ABNORMAL) Urine Drug Screen (05/21/2023 11:01 PM CDT) UR AMPHETAMINE NON DETECTED NON DETECTED 05/21/2023 11:44 PM CDT [facility] Comment: FOR MEDICAL USE ONLY. CUTOFF CONCENTRATION FOR DETECTED RESULT: AMPHETAMINE: ??500 NG/ML UR BENZODIAZEPINES NON DETECTED NON DETECTED 05/21/2023 11:44 PM CDT [facility] Comment: FOR MEDICAL USE ONLY. CUTOFF CONCENTRATION FOR DETECTED RESULT: BENZODIAZAPINE: ??200 NG/ML UR COCAINE METABOLITE DETECTED(A) NON DETECTED 05/21/2023 11:44 PM CDT [facility] Comment: FOR MEDICAL USE ONLY. CUTOFF CONCENTRATION FOR DETECTED RESULT: COCAINE: ??150 NG/ML UR OPIATES DETECTED(A) NON DETECTED 05/21/2023 11:44 PM CDT [facility] Comment: FOR MEDICAL USE ONLY. CUTOFF CONCENTRATION FOR DETECTED RESULT: OPIATES: ? 300 NG/ML UR PHENCYCLIDINE NON DETECTED NON DETECTED 05/21/2023 11:44 PM CDT [facility] Comment: FOR MEDICAL USE ONLY. CUTOFF CONCENTRATION FOR DETECTED RESULT: PCP: ? 25 NG/ML UR CANNABINOID NON DETECTED NON DETECTED 05/21/2023 11:44 PM CDT [facility] Comment: FOR MEDICAL USE ONLY. CUTOFF CONCENTRATION FOR DETECTED RESULT: THC (MARIJUANA): 50 NG/ML UR BARBITURATE NON DETECTED NON DETECTED 05/21/2023 11:44 PM CDT [facility] Comment: FOR MEDICAL USE ONLY. CUTOFF CONCENTRATION FOR DETECTED RESULT: BARBITUATES: ? 200 NG/ML Urine Non-Phlebotomy Collection / Unknown 05/21/2023 11:01 PM CDT 05/21/2023 11:28 PM CDT us Abe Couch MD URINE ORDERABLES Final Result [facility] [address] [place] [address] * Urinalysis w/ Reflex (05/21/2023 11:01 PM CDT) SPECIFIC GRAVITY 1.005 1.003 - 1.030 05/21/2023 11:33 PM CDT [facility] URINE PH 7.0 5.0 - 9.0 05/21/2023 11:33 PM CDT [facility] WBC ESTERASE Negative Negative 05/21/2023 11:33 PM CDT [facility] NITRITE Negative Negative 05/21/2023 11:33 PM CDT [facility] PROTEIN, RANDOM URINE Negative Negative 05/21/2023 11:33 PM CDT [facility] URINE GLUCOSE, QUAL Negative Negative 05/21/2023 11:33 PM CDT [facility] URINE KETONES Negative Negative 05/21/2023 11:33 PM CDT [facility] UROBILINOGEN Normal Normal mg/dL 05/21/2023 11:33 PM CDT [facility] URINE BLOOD Negative Negative dylan/ul 05/21/2023 11:33 PM CDT [facility] URINALYSIS COLOR Yellow 05/21/19 11:33 PM CDT [facility] URINALYSIS CLARITY Clear 05/21/2023 11:33 PM CDT [facility] Urine URINE SPECIMEN / Unknown Non-Phlebotomy Collection / Unknown 05/21/2023 11:01 PM CDT 05/21/2023 11:28 PM CDT us Abe Couch MD URINE ORDERABLES Final Result [facility] [address] [place] [address] * XR CHEST SINGLE VIEW PORTABLE (05/21/2023 10:36 PM CDT) Anatomical Region Laterality Modality Chest N/A Digital Radiogra phy 05/21/2023 10:5 7 PM CDT Impressions 05/21/2023 10:59 PM CDT IMPRESSION: ?? No acute cardiopulmonary abnormality. Narrative 05/21/2023 10:59 PM CDT EXAM DESCRIPTION: ?? XR CHEST SINGLE VIEW PORTABLE REASON FOR STUDY: ?? c/o SOB, productive cough, nausea, and chest pain x 1 month. Fever today. HX: HTN, DM ?? TECHNIQUE: ?? Single ??radiographic view of the chest acquired. COMPARISON: ?? Chest x-ray of April 30, 2023. FINDINGS: LUNGS/PLEURA: ??There is limited evaluation of the middle and lower lung zones secondary to overlying soft tissue density. ?? No focal consolidation or pneumothorax. No pleural effusion. ?? HEART/MEDIASTINUM: Cardiac silhouette is ??normal. ??Remaining mediastinal silhouettes are unremarkable. HARDWARE/LINES/TUBES: ?? EKG leads overlie the film. BONES: ?? No acute findings. THIS IS AN ELECTRONICALLY VERIFIED FINAL REPORT 05/21/2023 10:57 PM - Electronically signed by ??Rosario Warren M.D. SN: SN D: ??05/21/2023 10:57 PM T: ??05/21/2023 10:57 PM Report ID: [id number] Reading Location: ??[id number] Procedure Note Rosario Warren MD - 05/21/2023 EXAM DESCRIPTION: XR CHEST SINGLE VIEW PORTABLE REASON FOR STUDY: c/o SOB, productive cough, nausea, and chest pain x 1 month. Fever today. HX: HTN, DM TECHNIQUE: Single radiographic view of the chest acquired. COMPARISON: Chest x-ray of April 30, 2023. FINDINGS: LUNGS/PLEURA: There is limited evaluation of the middle and lower lung zones secondary to overlying soft tissue density. No focal consolidation or pneumothorax. No pleural effusion. HEART/MEDIASTINUM: Cardiac silhouette is normal. Remaining mediastinal silhouettes are unremarkable. HARDWARE/LINES/TUBES: EKG leads overlie the film. BONES: No acute findings. THIS IS AN ELECTRONICALLY VERIFIED FINAL REPORT 05/21/2023 10:57 PM - Electronically signed by Rosario Warren M.D. SN: Report ID: [id number] Reading Location: [id number] IMPRESSION: No acute cardiopulmonary abnormality. Abe Couch MD IMG DIAGNOSTIC ORDERAB LES Final Result * Critical Care (05/21/2023 10:13 PM CDT) Narrative Abe Couch MD - 05/21/2023 10:13 PM CDT Abe Couch MD ? 05/22/2023 12:05 AM Critical Care Performed by: Abe Couch MD Authorized by: Abe Couch MD ?? Critical care provider statement: ??Critical care time (minutes): ??40 ??Critical care was necessary to treat or prevent imminent or life-threatening deterioration of the following conditions: ??Sepsis ??Critical care was time spent personally by me on the following activities: ??Development of treatment plan with patient or surrogate, examination of patient, evaluation of patient's response to treatment, obtaining history from patient or surrogate, review of old charts, re-evaluation of patient's condition, pulse oximetry, ordering and review of radiographic studies, ordering and review of laboratory studies and ordering and performing treatments and interventions ??I assumed direction of critical care for this patient from another provider in my specialty: no ?Care discussed with: admitting provider ?? us Abe Couch MD PROCEDURE/MINOR SURGIC AL ORDERABLES Final Result * MAGNESIUM (MG) (05/21/2023 9:41 PM CDT) MAGNESIUM 1.6 1.6 - 2.6 mg/dL 05/22/2023 3:06 AM CDT [facility] Blood Venipuncture / Unknown 05/21/2023 9:41 PM CDT 05/21/2023 9:53 PM CDT Vaishali Escobedo APRN, CNP CHEMISTRY ORDERABLES Final Result Performing Organization Address City/[facility]/ZIP Co de Phone Number [facility] [address] [place] [address] * TROPONIN I, HIGH SENSITIVITY (HSTRP) (05/21/2023 9:41 PM CDT) [facility] TROPONIN I, HIGH SENSITIVITY- TREVINO 3 <=14 ng/L 05/21/2023 10:25 PM CDT [facility] Comment: High-sensitivity troponin I results are reported in ng/L making the result appear to be 1,000 times higher than the contemporary troponin I value which is reported in ng/ml. Results from [place]. Blood Venipuncture / Unknown 05/21/2023 9:41 PM CDT 05/21/2023 9:53 PM CDT Abe Couch MD CHEMISTRY ORDERABLES F inal Result Performing Organization Address [facility]/ZIP Co de Phone Number [facility] [address] [place] [address] * B-Type Natriuretic Peptide (BNP) (05/21/2023 9:41 PM CDT) [facility] B TYPE NATRIURETIC PEPTIDE 82 <100 pg/mL 05/21/2023 10:21 PM CDT [facility] Blood Venipuncture / Unknown 05/21/2023 9:41 PM CDT 05/21/2023 9:53 PM CDT Abe Couch MD CHEMISTRY ORDERABLES F inal Result Performing Organization Address City/[facility]/ZIP Co de Phone Number [facility] [address] [place] [address] * TANIA-COV-2 Flu RSV - (Quad PCR) (05/21/2023 9:41 PM CDT) [facility] FLU A Negative Negative, Error 05/21/2023 10:35 PM CDT [facility] FLU B Negative Negative 05/21/2023 10:35 PM CDT [facility] RESP SYNC VIRUS Negative Negative 10:35 PM CDT [facility] SARSCOV2 NOT DETECTED (Reference Range for this test is Not Detected) 05/21/2023 10:35 PM CDT [facility] Comment:This test was perfor med by a Reverse Chemical Preparer PCR Method. Swab NASOPHARYNGEAL SWAB / Unknown Non-Phlebotomy Collection / Unknown 05/21/2023 9:41 PM CDT 05/21/2023 9:52 PM CDT Narrative [facility] - 05/21/2023 10:35 PM CDT This test has not been FDA cleared or approved; the test has been authorized by FDA under an Emergency Use Authorization (EUA) for use by laboratories certified under the CLIA that meet the requirements to perform moderate, high or waived complexity tests. Authorized Fact Sheets about this test for providers and patients are available at: https://www.fda.gov/medical-devices/jnbiucjwc-rbwpoagrur-sulranc-devices/emergen -us e-authorizations us Abe Couch MD MICROBIOLOGY - GENERAL ORDERABLES Final Result [facility] [address] [place] [address] * Blood Culture #2 (05/21/2023 9:41 PM CDT) Only the most recent of2 resultswithin the time period is included. CULTURE RESULTS NO GROWTH WITHIN 5 DAYS, FINAL RESULT 05/26/2023 10:01 PM CDT [facility] Culture BLOOD SPECIMEN / Unknown Venipuncture / Unknown 05/21/2023 9:41 PM CDT 05/21/2023 9:52 PM CDT us Abe Couch MD MICROBIOLOGY - GENERAL ORDERABLES Final Result [facility] [address] [place] [address], * Lactic Acid (Lactate) (05/21/2023 9:41 PM CDT) LACTIC ACID 1.7 0.7 - 2.0 mmol/L 05/21/2023 10:16 PM CDT [facility] Blood Venipuncture / Unknown 05/21/2023 9:41 PM CDT 05/21/2023 9:54 PM CDT Abe Couch MD CHEMISTRY ORDERABLES F inal Result [facility] [address] [place] [address] * (ABNORMAL) CMP (Comprehensive Metabolic Panel) (05/21/2023 9:41 PM CDT) Pathologist [facility] SODIUM 133(L) 136 - 145 mmol/L 05/21/2023 10:21 PM CDT [facility] POTASSIUM 3.8 3.5 - 5.1 mmol/L 05/21/2023 10:21 PM CDT [facility] CHLORIDE 97(L) 98 - 107 mmol/L 05/21/2023 10:21 PM CDT [facility] CO2, VENOUS 28 22 - 30 mmol/L 05/21/2023 10:21 PM CDT [facility] ANION GAP 11.8 <18.0 mmol/L 05/21/2023 10:21 PM CDT [facility] GLUCOSE 140(H) 70 - 99 mg/dL 05/21/2023 10:21 PM CDT [facility] BUN 10 10 - 20 mg/dL 05/21/2023 10:21 PM CDT [facility] CREATININE, BLOOD 0.70 0.60 - 1.00 mg/dL 05/21/2023 10:21 PM CDT [facility] BUN/CREATININE RATIO 14 12 - 20 ratio 05/21/2023 10:21 PM CDT [facility] TOTAL PROTEIN 7.0 6.3 - 8.2 g/dL 05/21/2023 10:21 PM CDT [facility] ALBUMIN 3.6 3.5 - 5.0 g/dL 05/21/2023 10:21 PM T [facility] A/G RATIO 1.1 1.0 - 2.2 05/21/2023 10:21 PM CDT [facility] CALCIUM 9.4 8.7 - 10.5 mg/dL 05/21/2023 10:21 PM T [facility] T BILI 0.5 0.2 - 1.2 mg/dL 05/21/2023 10:21 PM CDT [facility] SGOT (AST) 12 5 - 34 U/L 05/21/2023 10:21 PM T [facility] SGPT (ALT) 19 0 - 55 U/L 05/21/2023 10:21 PM CDT [facility] ALKALINE PHOSPHATASE 84 40 - 150 U/L 05/21/2023 10:21 PM T [facility] GFR, ESTIMATED >60 >=60 05/21/2023 10:21 PM T [facility] Comment: Creatinine Clearance is the preferred criteria for selecting drug dose adjustments in renally impaired patients. ??The GFR is provided as additional pertinent clinical information. GFR is reported in mL/min/1.73 sq m. Calculation based on the Chronic Kidney Disease Epidemiology Collaboration (CKD- EPI) equation refit without adjustment for race. GFR, EST. >60 >=60 024 10:21 PM T [facility] GFR, EST. NONAFRICAN >60 >=60 05/21/2023 10:21 PM [facility] Blood Venipuncture / Unknown 05/21/2023 9:41 PM CDT 05/21/2023 9:53 PM CDT us Abe Couch MD CHEMISTRY ORDERABLES F inal Result Performing Organization Address [facility] Co de Phone Number [facility] [place] [address] * EKG 12 LEAD (05/21/2023 9:22 PM CDT) Ventricular Rate 112 BPM EXTERNAL EKG Atrial Rate 112 BPM EXTERNAL EKG P-R Interval 126 ms EXTERNAL EKG QRS Duration 86 ms EXTERNAL EKG Q-T Duration 318 ms EXTERNAL EKG QTC CALCULATION 434 ms EXTERNAL EKG P [place] 45 degrees EXTERNAL EKG R [place] -8 degrees EXTERNAL EKG T [place] 53 degrees EXTERNAL EKG 05/21/2023 9:22 PM CDT Impressions EXTERNAL EKG - 05/22/2023 6:29 PM CDT Sinus tachycardia Minimal voltage criteria for LVH, may be normal variant ( R in aVL ) Borderline ECG When compared with ECG of 07-JAN-2023 09:12, No significant change was found Confirmed by Blane Sawyer ([id number]) on 05/22/2023 6:29:06 PM Narrative Procedure Note Blane Sawyer MD - 05/22/2023 IMPRESSION: Sinus tachycardia Minimal voltage criteria for LVH, may be normal variant ( R in aVL ) Borderline ECG When compared with ECG of 07-JAN-2023 09:12, No significant change was found Confirmed by Blane Sawyer ([id number]) on 05/22/2023 6:29:06 PM us Abe Couch MD IMG ECG ORDERABLES Fin al Result Performing Organization Address City/[facility]/ZIP Co de Phone Number EXTERNAL EKG documented in this encounter Visit Diagnoses Diagnosis COPD exacerbation (HCC)- Primary Obstructive chronic bronchitis with exacerbation Hypoxia Hypoxemia Fever, unspecified fever cause COPD exacerbation (HCC) Obstructive chronic bronchitis with exacerbation Obstructive chronic bronchitis with exacerbation (HCC) Obstructive chronic bronchitis with exacerbation Hypoxemia Shortness of breath Wheezing Fever of unknown origin (FUO) Fever, unspecified Nausea Nausea alone Hypertension, essential Unspecified essential hypertension Fatigue, unspecified type Type 2 diabetes mellitus without complication, without long-term current use of insulin (HCC) Adult hypothyroidism Unspecified hypothyroidism documented in this encounter Admitting Diagnoses Diagnosis COPD exacerbation (HCC) Obstructive chronic bronchitis with exacerbation documented in this encounter Administered Medications Inactive Administered Medications - up to 3 most recent administrations Medication Order MAR Action Action Date Dose Rate Site acetaminophen (TYLENOL) tablet 650 mg 650 mg, Oral, EVERY 4 HOURS PRN, Starting on Mon05/22/23 at 0030, Until Mon05/22/23 at 1928, Mild pain or more severe pain if patient requests, Maximum dose of acetaminophen is 4000 mg from all sources in 24 hours. Given 05/22/2023 8:38 AM CDT 650 mg acetaminophen (TYLENOL) tablet 975 mg 975 mg, Oral, ONCE, 1 dose, On Mon05/21/23 at 2200, Maximum dose of acetaminophen is 4000 mg from all sources in 24 hours.Indications:Pain or Fever Given 05/21/2023 9:56 PM CDT 975 mg albuterol (PROVENTIL, VENTOLIN) (2.5 MG/3ML) 0.083% nebulizer solution 2.5 mg 2.5 mg, Nebulization, EVERY 6 HOURS PRN, Starting on Mon05/22/23 at 0900, Until Mon05/22/23 at 1928, Wheezing, 1. For RTA Severity Level 1 2. Discontinue all albuterol and ipratropium ORDERS AND ORDER SET if assessment results for 2 consecutive days has been a level 1 and no PRN treatments have been administered in the same time period. 3. A new physician order is required to resume order set once discontinued.Indications:[place] PD exacerbation (HCC) azithromycin (ZITHROMAX) 500 mg in sodium chloride 0.9 % 250 mL IVPB 500 mg, Intravenous, ONCE, 1 dose, On Mon05/21/23 at 2200, Administer over 60 Minutes, Indications: Community Acquired Pneumonia, at 250 mL/hrIndications:Community Acquired Pneumonia New Bag 05/21/2023 9:55 PM CDT 500 mg 250 mL/hr azithromycin (ZITHROMAX) 500 mg in sodium chloride 0.9 % 250 mL IVPB 500 mg, Intravenous, EVERY 24 HOURS, 2 doses, First dose (after last reorder) on Mon05/22/23 at 2200, Last dose on Mon05/23/23 at 2200, Administer over 60 Minutes, Indications: Community Acquired Pneumonia, at 250 mL/hrIndications:Community Acquired Pneumonia benzonatate (TESSALON) capsule 100 mg 100 mg, Oral, 3 TIMES DAILY PRN, Starting on Mon05/22/23 at 0032, Until Mon05/22/23 at 1928, Cough, Swallow capsule whole (do not break, [...] Oral, 2 TIMES DAILY, First dose on Mon05/22/23 at 0900, Until Discontinued Given 05/22/2023 8:38 AM CDT 0.5 mg cefTRIAXone (ROCEPHIN) injection 2 g 2 g, Intravenous, ONCE, 1 dose, On Mon05/21/23 at 2200, OK to use for Penicillin Allergy, Indications: Systemic Bacterial Infection, SEPSISIndications:Systemic Bacterial Infection, SEPSIS Given 05/21/2023 9:56 PM CDT 2 g dextrose 50 % solution 12.5 g 12.5 g, Intravenous, PRN, Starting on Mon05/22/23 at 0220, Until Mon05/22/23 at 1928, Low blood sugar, If IV patent in patient with blood glucose of 50 or less, or Unconscious, Conscious but NPO or Unable to Swallow regardless of blood glucose, administer 1 dose of dextrose 50% solution. DULoxetine (CYMBALTA) capsule 60 mg 60 mg, Oral, 2 TIMES DAILY, First dose on Mon05/22/23 at 0900, Until Discontinued, Do Not Crush Given 05/22/2023 8:38 AM CDT 60 mg enoxaparin (LOVENOX) injection 40 mg 40 mg, Subcutaneous, EVERY 12 HOURS SCHEDULED, First dose on Mon05/22/23 at 0100, Until DiscontinuedIndications:Pro phylaxis of Venous Thromboembolism Given 05/22/2023 8:39 AM CDT 40 mg Left Abdomen Given 05/22/2023 2:20 AM CDT 40 mg Le ft Abdomen folic acid (FOLVITE) tablet 1 mg 1 mg, Oral, DAILY, First dose on Mon05/22/23 at 0900, Until Discontinued Given 05/22/2023 8:38 AM CDT 1 mg furosemide (LASIX) tablet 20 mg 20 mg, Oral, DAILY, First dose on Mon05/22/23 at 0900, Until Discontinued Given 05/22/2023 8:38 AM CDT 20 mg gabapentin (NEURONTIN) capsule 600 mg 600 mg, Oral, 3 TIMES DAILY, First dose on Mon05/22/23 at 0900, Until Discontinued, Do Not Crush Given 05/22/2023 1:26 PM CDT 600 mg Given 05/22/2023 8:38 AM CDT 600 mg glucagon injection SOLR 1 mg 1 mg, Intramuscular, PRN, Starting on Mon05/22/23 at 0220, Until Mon05/22/23 at 192, If patient has no intravenous access and blood glucose of 50 or less, or Unconscious, Conscious but NPO or Unable to Swallow regardless of blood glucose administer 1 dose of glucagon. Glucagon may cause vomiting. Position patient on the side., Other, Low blood sugar glucagon injection SOLR 1 mg 1 mg, Subcutaneous, PRN, Starting on Mon05/22/23 at 0220, Until Mon05/22/23 at 1928, If patient has no intravenous access and blood glucose of 50 or less, or Unconscious, Conscious but NPO or Unable to Swallow regardless of blood glucose administer 1 dose of glucagon. Glucagon may cause vomiting. Position patient on the side., Other, Low blood sugar glucose (GLUTOSE) 40 % gel GEL 15 g 15 g, Oral, PRN, Starting on Mon05/22/23 at 0220, Until Mon05/22/23 at 192, Low blood sugar, Dose is based on glucose. 37.5 g tube = 15 GRAMS of GLUCOSE. For 15 GRAM GLUCOSE dose, give entire 37.5 g size tube. Administer 1 dose if patient is unable to take food, but conscious and able to swallow. guaiFENesin (ROBITUSSIN) 100 MG/5ML liquid 200 mg 200 mg, Oral, EVERY 4 HOURS PRN, Starting on Mon05/22/23 at 0032, Until Mon05/22/23 at 1928, Cough, Congestion insulin glargine (LANTUS) 100 UNIT/ML injection 20 Units 20 Units, Subcutaneous, NIGHTLY, First dose on Mon05/22/23 at 0930, Until Discontinued Given 05/22/2023 9:17 AM CDT 20 Units Left Abdomen insulin lispro (HumaLOG) 100 UNIT/ML injection 12 Units 12 Units, Subcutaneous, ONCE, 1 dose, On Mon05/22/23 at 1200 Given 05/22/2023 11:32 AM CDT 12 Units Right Lateral Upper Arm insulin lispro (HumaLOG) 100 UNIT/ML injection 2-12 Units 2-12 Units, Subcutaneous, 3 TIMES DAILY AFTER MEALS, First dose on Mon05/22/23 at 0900, Until Discontinued, If BS is: 70-180, give no correction Insulin. 181-200, give 2 Unit. 201-250, give 4 Units. 251-300, give 6 Units. 301-350, give 8 Units. 351-400, give 10 Units. 401 or greater, give 12 units and call physician Given 05/22/2023 1:26 PM CDT 12 Units Left Abdomen Given 05/22/2023 8:40 AM CDT 6 Units Le ft Abdomen insulin lispro (HumaLOG) 100 UNIT/ML injection 2-6 Units 2-6 Units, Subcutaneous, NIGHTLY, First dose on Mon05/22/23 at 2100, Until Discontinued, If BS is: 70-200, give no correction Insulin. 201-250, give 2 units. 251-300, give 3 units. 301-350, give 4 units. 351-400, give 5 units. 401 or greater, give 6 units and call physician insulin NPH (HumuLIN N;NovoLIN N) injection 3 Units 3 Units, Subcutaneous, ONCE, 1 dose, On Mon05/22/23 at 0230 Given 05/22/2023 2:20 AM CDT 3 Units Left Abdomen insulin NPH (HumuLIN N;NovoLIN N) injection 5 Units 5 Units, Subcutaneous, EVERY MORNING, First dose on Mon05/22/23 at 0900, Until Discontinued, While pt is receiving IV steroid Given 05/22/2023 8:40 AM CDT 5 Units Left Abdomen ipratropium-albuterol (DUO-NEB) 0.5-2.5 (3) MG/3ML nebulizer solution 3 mL 3 mL, Nebulization, ONCE, 1 dose, On Mon05/21/23 at 2330 Given 05/21/2023 11:18 PM CDT 3 mL ketorolac (TORADOL) injection 30 mg 30 mg, Intravenous, ONCE, 1 dose, On Mon05/21/23 at 2200 Given 05/21/2023 9:55 PM CDT 30 mg levothyroxine (SYNTHROID) tablet 50 mcg 50 mcg, Oral, EVERY MORNING BEFORE BREAKFAST, First dose on Mon05/22/23 at 0730, Until DiscontinuedIndications:Hypot hyroidism Given 05/22/2023 8:38 AM CDT 50 mcg losartan (COZAAR) tablet 50 mg 50 mg, Oral, DAILY, First dose on Mon05/22/23 at 0900, Until Discontinued Given 05/22/2023 8:38 AM CDT 50 mg methylPREDNISolone Na Suc (PF) (Solu-MEDROL) injection 62.5 mg 62.5 mg, Intravenous, DAILY, First dose (after last reorder) on Mon05/22/23 at 0900, Until Discontinued Given 05/22/2023 8:38 AM CDT 62.5 mg methylPREDNISolone Na Suc (PF) (Solu-MEDROL) injection 81.25 mg 81.25 mg, Intravenous, ONCE, 1 dose, On Mon05/21/23 at 2330 Given 05/21/2023 11:10 PM CDT 81.25 mg metoprolol Succinate (TOPROL-XL) XL tablet 25 mg 25 mg, Oral, DAILY, First dose on Mon05/22/23 at 0900, Until Discontinued, Do Not Crush Given 05/22/2023 8:38 AM CDT 25 mg ondansetron (ZOFRAN) injection 4 mg 4 mg, Intravenous, ONCE, 1 dose, On Mon05/21/23 at 2230 Given 05/21/2023 9:56 PM CDT 4 mg ondansetron (ZOFRAN) injection 4 mg 4 mg, Intravenous, EVERY 6 HOURS PRN, Starting on Mon05/22/23 at 0030, Until Mon05/22/23 at 1928, Nausea - 1st line, 1. First Line Antiemetic. 2. Use Injection only if patient unable to tolerate oral medications. ondansetron (ZOFRAN-ODT) disintegrating tablet 4 mg 4 mg, Oral, EVERY 6 HOURS PRN, Starting on Mon05/22/23 at 0030, Until Mon05/22/23 at 1928, Nausea - 1st line, 1. First Line Antiemetic. 2. Use PO form unless unable to tolerate PO medications, then use Injection pantoprazole (PROTONIX) injection 40 mg 40 mg, Intravenous, DAILY, First dose on Mon05/22/23 at 0900, Until Discontinued, Administer over 3 Minutes, Indications: Symptomatic Gastroesophageal Reflux DiseaseIndications:Symptomati c Gastroesophageal Reflux Disease Given 05/22/2023 8:38 AM CDT 40 mg sodium chloride 0.9 % 1,000 mL IV bolus 1,000 mL, Intravenous, ONCE, 1 dose, On Mon05/21/23 at 2200, Administer over 1 Hours New Bag 05/21/2023 9:55 PM CDT 1,000 mL 1000 mL/hr sodium chloride 0.9 % 750 mL IV bolus 750 mL, Intravenous, ONCE, 1 dose, On Mon05/21/23 at 2200, Administer over 0.375 Hours, Patient is Obese (Body mass index is 49.38 kg/m??.). [place] Body Weight (50.1kg) is used for goal volume (1503 ml) calculation. New Bag 05/21/2023 10:20 PM CDT 750 mL 2000 mL/hr triamterene-hydrochlorothiazi de (MAXZIDE) 37.5-25 MG per tablet 1 Tablet 1 Tablet, Oral, DAILY, First dose on Mon05/22/23 at 0900, Until Discontinued Given 05/22/2023 8:49 AM CDT 1 Tablet documented in this encounter Active and Recently Administered Medications Times are shown in CDT. Scheduled Medication Order 05/20/2023 05/21/2023 05/22/2023 acetaminophen (TYLENOL) tablet 975 mg (COMPLETED) 975 mg, Oral, ONCE, 1 dose, On Mon05/21/23 at 2200, Maximum dose of acetaminophen is 4000 mg from all sources in 24 hours. 2155 (Given - Provider: Nikki Lugo RN) ARIPiprazole extended release (ABILIFY MAINTENA) injection 400 mg 400 mg, Intramuscular, EVERY 28 DAYS, First dose on Mon05/22/23 at 0300, Until Discontinued 0300 (Not Given - Provider: Jevon Spann RN - Reason: Other - see comment) azithromycin (ZITHROMAX) 500 mg in sodium chloride 0.9 % 250 mL IVPB (COMPLETED) 500 mg, Intravenous, ONCE, 1 dose, On Mon05/21/23 at 2200, Administer over 60 Minutes, Indications: Community Acquired Pneumonia, at 250 mL/hr 2154 (New Bag - Provider: Nikki Lugo RN)2254 (Stopped - Provider: Nikki Lugo RN) azithromycin (ZITHROMAX) 500 mg in sodium chloride 0.9 % 250 mL IVPB 500 mg, Intravenous, EVERY 24 HOURS, 2 doses, First dose (after last reorder) on Mon05/22/23 at 2200, Last dose on Mon05/23/23 at 2200, Administer over 60 Minutes, Indications: Community Acquired Pneumonia, at 250 mL/hr benztropine (COGENTIN) tablet 0.5 mg 0.5 mg, Oral, 2 TIMES DAILY, First dose on Mon05/22/23 at 0900, Until Discontinued 837 (Given - Provider: Sahara Harman RN) cefTRIAXone (ROCEPHIN) injection 2 g (COMPLETED) 2 g, Intravenous, ONCE, 1 dose, On Mon05/21/23 at 2200, OK to use for Penicillin Allergy, Indications: Systemic Bacterial Infection, SEPSIS 2155 (Given - Provider: Nikki Lugo RN) DULoxetine (CYMBALTA) capsule 60 mg 60 mg, Oral, 2 TIMES DAILY, First dose on Mon05/22/23 at 0900, Until Discontinued, Do Not Crush 38 (Given - Provider: Sahara Harman RN) enoxaparin (LOVENOX) injection 40 mg 40 mg, Subcutaneous, EVERY 12 HOURS SCHEDULED, First dose on Mon05/22/23 at 0100, Until Discontinued 219 (Given - Provider: Jevon Spann RN)0839 (Given - Provider: Sahara Harman RN) folic acid (FOLVITE) tablet 1 mg 1 mg, Oral, DAILY, First dose on Mon05/22/23 at 0900, Until Discontinued 0838 (Given - Provider: Sahara Harman RN) furosemide (LASIX) tablet 20 mg 20 mg, Oral, DAILY, First dose on Mon05/22/23 at 0900, Until Discontinued 38 (Given - Provider: Sahara Harman RN) gabapentin (NEURONTIN) capsule 600 mg 600 mg, Oral, 3 TIMES DAILY, First dose on Mon05/22/23 at 0900, Until Discontinued, Do Not Crush 0838 (Given - Provider: Sahara Harman RN)1326 (Given - Provider: Sahara Harman RN) insulin glargine (LANTUS) 100 UNIT/ML injection 20 Units 20 Units, Subcutaneous, NIGHTLY, First dose on Mon05/22/23 at 0930, Until Discontinued 09 (Given - Provider: Sahara Harman RN) insulin lispro (HumaLOG) 100 UNIT/ML injection 12 Units (COMPLETED) 12 Units, Subcutaneous, ONCE, 1 dose, On Mon05/22/23 at 1200 1132 (Given - Provider: Sahara Harman RN) insulin lispro (HumaLOG) 100 UNIT/ML injection 2-12 Units 2-12 Units, Subcutaneous, 3 TIMES DAILY AFTER MEALS, First dose on Mon05/22/23 at 0900, Until Discontinued, If BS is: 70-180, give no correction Insulin. 181-200, give 2 Unit. 201-250, give 4 Units. 251-300, give 6 Units. 301-350, give 8 Units. 351-400, give 10 Units. 401 or greater, give 12 units and call physician 0840 (Given - Provider: Sahara Harman RN)1326 (Given - Provider: Sahara Harman RN) insulin lispro (HumaLOG) 100 UNIT/ML injection 2-6 Units 2-6 Units, Subcutaneous, NIGHTLY, First dose on Mon05/22/23 at 2100, Until Discontinued, If BS is: 70-200, give no correction Insulin. 201-250, give 2 units. 251-300, give 3 units. 301-350, give 4 units. 351-400, give 5 units. 401 or greater, give 6 units and call physician insulin NPH (HumuLIN N;NovoLIN N) injection 3 Units (COMPLETED) 3 Units, Subcutaneous, ONCE, 1 dose, On Mon05/22/23 at 0230 0220 (Given - Provider: Jevon Spann RN) insulin NPH (HumuLIN N;NovoLIN N) injection 5 Units (CANCELED) 5 Units, Subcutaneous, EVERY MORNING, First dose on Mon05/22/23 at 0900, Until Discontinued, While pt is receiving IV steroid 0840 (Given - Provider: Sahara Harman RN) ipratropium-albuterol (DUO-NEB) 0.5-2.5 (3) MG/3ML nebulizer solution 3 mL (COMPLETED) 3 mL, Nebulization, ONCE, 1 dose, On Mon05/21/23 at 2330 2318 (Given - Provider: Sharri Cox, RADIOLOGY TECHNOLOGIST) ketorolac (TORADOL) injection 30 mg (COMPLETED) 30 mg, Intravenous, ONCE, 1 dose, On Mon05/21/23 at 2200 2155 (Given - Provider: Nikki Lugo RN) levothyroxine (SYNTHROID) tablet 50 mcg 50 mcg, Oral, EVERY MORNING BEFORE BREAKFAST, First dose on Mon05/22/23 at 0730, Until Discontinued 0838 (Given - Provider: Sahara Harman RN) losartan (COZAAR) tablet 50 mg 50 mg, Oral, DAILY, First dose on Mon05/22/23 at 0900, Until Discontinued 08 (Given - Provider: Sahara Harman RN) methylPREDNISolone Na Suc (PF) (Solu-MEDROL) injection 62.5 mg 62.5 mg, Intravenous, DAILY, First dose (after last reorder) on Mon05/22/23 at 0900, Until Discontinued 08 (Given - Provider: Sahara Harman RN) methylPREDNISolone Na Suc (PF) (Solu-MEDROL) injection 81.25 mg (COMPLETED) 81.25 mg, Intravenous, ONCE, 1 dose, On Mon05/21/23 at 2330 2310 (Given - Provider: Nikki Lugo RN) metoprolol Succinate (TOPROL-XL) XL tablet 25 mg 25 mg, Oral, DAILY, First dose on Mon05/22/23 at 0900, Until Discontinued, Do Not Crush 0838 (Given - Provider: Sahara Harman RN) ondansetron (ZOFRAN) injection 4 mg (COMPLETED) 4 mg, Intravenous, ONCE, 1 dose, On Mon05/21/23 at 2230 2156 (Given - Provider: Nikki Lugo RN) pantoprazole (PROTONIX) injection 40 mg 40 mg, Intravenous, DAILY, First dose on Mon05/22/23 at 0900, Until Discontinued, Administer over 3 Minutes, Indications: Symptomatic Gastroesophageal Reflux Disease 0838 (Given - Provider: Sahara Harman RN) simvastatin (ZOCOR) tablet 10 mg 10 mg, Oral, EVERY EVENING, First dose on Mon05/22/23 at 1800, Until Discontinued sodium chloride 0.9 % 1,000 mL IV bolus (COMPLETED) 1,000 mL, Intravenous, ONCE, 1 dose, On Mon05/21/23 at 2200, Administer over 1 Hours 2155 (New Bag - Provider: Nikki Lugo RN)225 (Stopped - Provider: Nikki Lugo RN) sodium chloride 0.9 % 750 mL IV bolus (COMPLETED) 750 mL, Intravenous, ONCE, 1 dose, On Mon05/21/23 at 2200, Administer over 0.375 Hours, Patient is Obese (Body mass index is 49.38 kg/m??.). [place] Body Weight (50.1kg) is used for goal volume (1503 ml) calculation. 2219 (New Bag - Provider: Nikki Lugo RN)2254 (Stopped - Provider: Nikki Lugo RN) traZODone (DESYREL) tablet 100 mg 100 mg, Oral, NIGHTLY, First dose on Mon05/22/23 at 2100, Until Discontinued triamterene-hydrochlorothiazi de (MAXZIDE) 37.5-25 MG per tablet 1 Tablet 1 Tablet, Oral, DAILY, First dose on Mon05/22/23 at 0900, Until Discontinued 0849 (Given - Provider: Sahara Harman RN) PRN Medication Order 05/20/2023 05/21/2023 05/22/2023 acetaminophen (TYLENOL) tablet 650 mg 650 mg, Oral, EVERY 4 HOURS PRN, Starting on Mon05/22/23 at 0030, Until Mon05/22/23 at 1928, Mild pain or more severe pain if patient requests, Maximum dose of acetaminophen is 4000 mg from all sources in 24 hours. 0838 (Given - Provid er: Sahara Harman RN) albuterol (PROVENTIL, VENTOLIN) (2.5 MG/3ML) 0.083% nebulizer solution 2.5 mg 2.5 mg, Nebulization, EVERY 6 HOURS PRN, Starting on Mon05/22/23 at 0900, Until Mon05/22/23 at 1928, Wheezing, 1. For RTA Severity Level 1 2. Discontinue all albuterol and ipratropium ORDERS AND ORDER SET if assessment results for 2 consecutive days has been a level 1 and no PRN treatments have been administered in the same time period. 3. A new physician order is required to resume order set once discontinued. benzonatate (TESSALON) capsule 100 mg 100 mg, Oral, 3 TIMES DAILY PRN, Starting on Mon05/22/23 at 0032, Until Mon05/22/23 at 1928, Cough, Swallow capsule whole (do not break, chew, dissolve, cut, or crush). If capsules are chewed or dissolved in the mouth, oral mucosa anesthesia may occur and could lead to choking. If numbness or tingling of the tongue, mouth, throat, or face occurs, refrain from oral ingestion of food or liquid until numbness has resolved. calcium carbonate (TUMS) chewable tablet 1,000 mg 1,000 mg, Oral, EVERY 8 HOURS PRN, Starting on Mon05/22/23 at 0030, Until Mon05/22/23 at 1928, Heartburn, Indigestion dextrose 50 % solution 12.5 g(Linked Group 1) 12.5 g, Intravenous, PRN, Starting on Mon05/22/23 at 0220, Until Mon05/22/23 at 1927, Low blood sugar, If IV patent in patient with blood glucose of 50 or less, or Unconscious, Conscious but NPO or Unable to Swallow regardless of blood glucose, administer 1 dose of dextrose 50% solution. glucagon injection SOLR 1 mg(Linked Group 1) 1 mg, Intramuscular, PRN, Starting on Mon05/22/23 at 0220, Until Mon05/22/23 at 1928, If patient has no intravenous access and blood glucose of 50 or less, or Unconscious, Conscious but NPO or Unable to Swallow regardless of blood glucose administer 1 dose of glucagon. Glucagon may cause vomiting. Position patient on the side., Other, Low blood sugar glucagon injection SOLR 1 mg(Linked Group 1) 1 mg, Subcutaneous, PRN, Starting on Mon05/22/23 at 0220, Until Mon05/22/23 at 1927, If patient has no intravenous access and blood glucose of 50 or less, or Unconscious, Conscious but NPO or Unable to Swallow regardless of blood glucose administer 1 dose of glucagon. Glucagon may cause vomiting. Position patient on the side., Other, Low blood sugar glucose (GLUTOSE) 40 % gel GEL 15 g(Linked Group 1) 15 g, Oral, PRN, Starting on Mon05/22/23 at 0220, Until Mon05/22/23 at 1927, Low blood sugar, Dose is based on glucose. 37.5 g tube = 15 GRAMS of GLUCOSE. For 15 GRAM GLUCOSE dose, give entire 37.5 g size tube. Administer 1 dose if patient is unable to take food, but conscious and able to swallow. guaiFENesin (ROBITUSSIN) 100 MG/5ML liquid 200 mg 200 mg, Oral, EVERY 4 HOURS PRN, Starting on Mon05/22/23 at 0032, Until Mon05/22/23 at 1927, Cough, Congestion hydrOXYzine (ATARAX) tablet 50 mg 50 mg, Oral, EVERY 6 HOURS PRN, Starting on Mon05/22/23 at 0227, Until Mon05/22/23 at 1927, Anxiety, Mild anxiety magnesium hydroxide (MILK OF MAGNESIA) 400 MG/5ML suspension 30 mL 30 mL, Oral, DAILY PRN, Starting on Mon05/22/23 at 0030, Until Mon05/22/23 at 1927, Constipation - 3rd line, Magnesium hydroxide 400 mg/5 ml = 166.7 mg elemental magnesium/5ml. Hold for loose stools (loose, liquid, mucoid, soft, watery stool that takes the shape of the container) or greater than 2 moderate or larger stools in 24hrs melatonin tablet 6 mg 6 mg, Oral, NIGHTLY PRN, Starting on Mon05/22/23 at 0030, Until Mon05/22/23 at 1927, Other, Sleep ondansetron (ZOFRAN) injection 4 mg(Linked Group 2) 4 mg, Intravenous, EVERY 6 HOURS PRN, Starting on Mon05/22/23 at 0030, Until Mon05/22/23 at 1927, Nausea - 1st line, 1. First Line Antiemetic. 2. Use Injection only if patient unable to tolerate oral medications. ondansetron (ZOFRAN-ODT) disintegrating tablet 4 mg(Linked Group 2) 4 mg, Oral, EVERY 6 HOURS PRN, Starting on Mon05/22/23 at 0030, Until Mon05/22/23 at 192, Nausea - 1st line, 1. First Line Antiemetic. 2. Use PO form unless unable to tolerate PO medications, then use Injection polyethylene glycol (GLYCOLAX, MIRALAX) packet 17 g 17 g, Oral, 2 TIMES DAILY PRN, Starting on Mon05/22/23 at 0030, Until Mon05/22/23 at 1927, Constipation - 1st line, Dilute dose in 120 - 240 mL of beverage.Hold for loose stools (loose, liquid, mucoid, soft, watery stool that takes the shape of the container) or greater than 2 moderate or larger stools in 24hrs Prochlorperazine Edisylate (COMPAZINE) injection 10 mg 10 mg, Intravenous, EVERY 6 HOURS PRN, Starting on Mon05/22/23 at 0030, Until Mon05/22/23 at 1927, Nausea - 2nd line, headache, Second Line Antiemetic Give if nausea/vomiting recurs after ondansetron. rOPINIRole (REQUIP) tablet 0.5 mg 0.5 mg, Oral, EVERY 12 HOURS PRN, Starting on Mon05/22/23 at 0227, Until Mon05/22/23 at 192, Other, For restless legs senna (SENOKOT) tablet 17.2 mg 17.2 mg (2 Tablet), Oral, NIGHTLY PRN, Starting on Mon05/22/23 at 0227, Until Mon05/22/23 at 1927, Constipation - 1st line senna (SENOKOT) tablet 8.6 mg 8.6 mg (1 Tablet), Oral, 2 TIMES DAILY PRN, Starting on Mon05/22/23 at 0030, Until Mon05/22/23 at 192, Constipation - 2nd line Linked Groups Order Group 1: glucose (GLUTOSE) 40 % gel GEL 15 gJump to med 15 g, Oral, PRN, Starting on Mon05/22/23 at 0220, Until Mon05/22/23 at 1927, Low blood sugar, Dose is based on glucose. 37.5 g tube = 15 GRAMS of GLUCOSE. For 15 GRAM GLUCOSE dose, give entire 37.5 g size tube. Administer 1 dose if patient is unable to take food, but conscious and able to swallow. Or dextrose 50 % solution 12.5 gJump to med 12.5 g, Intravenous, PRN, Starting on Mon05/22/23 at 0220, Until Mon05/22/23 at 192, Low blood sugar, If IV patent in patient with blood glucose of 50 or less, or Unconscious, Conscious but NPO or Unable to Swallow regardless of blood glucose, administer 1 dose of dextrose 50% solution. Or glucagon injection SOLR 1 mgJump to med 1 mg, Intramuscular, PRN, Starting on Mon05/22/23 at 0220, Until Mon05/22/23 at 192, If patient has no intravenous access and blood glucose of 50 or less, or Unconscious, Conscious but NPO or Unable to Swallow regardless of blood glucose administer 1 dose of glucagon. Glucagon may cause vomiting. Position patient on the side., Other, Low blood sugar Or glucagon injection SOLR 1 mgJump to med 1 mg, Subcutaneous, PRN, Starting on Mon05/22/23 at 0220, Until Mon05/22/23 at 192, If patient has no intravenous access and blood glucose of 50 or less, or Unconscious, Conscious but NPO or Unable to Swallow regardless of blood glucose administer 1 dose of glucagon. Glucagon may cause vomiting. Position patient on the side., Other, Low blood sugar Group 2: ondansetron (ZOFRAN-ODT) disintegrating tablet 4 mgJump to med 4 mg, Oral, EVERY 6 HOURS PRN, Starting on Mon05/22/23 at 0030, Until Mon05/22/23 at 192, Nausea - 1st line, 1. First Line Antiemetic. 2. Use PO form unless unable to tolerate PO medications, then use Injection Or ondansetron (ZOFRAN) injection 4 mgJump to med 4 mg, Intravenous, EVERY 6 HOURS PRN, Starting on Mon05/22/23 at 0030, Until Mon05/22/23 at 1928, Nausea - 1st line, 1. First Line Antiemetic. 2. Use Injection only if patient unable to tolerate oral medications. 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
--- OUTSIDE RECORDS SUMMARY | 2024-03-03 19:26 | XMS_ITS | Encounter Summary ---
Author Organization [employer] Care Team Providers Care Director Skills Name Role Phone Daja Kern MD Primary Care Provider [phone] Encounter Details Date Type Department Care Team (Latest Contact Info) Description 05/21/2023 Travel Social History Tobacco Use Types Packs/Day Years Used Date Smoking Tobacco: Never Smokeless Tobacco: Never Alcohol Use Standard Drinks/Week Comments No 0 (1 standard drink = 0.6 oz pur e alcohol) [facility] Utilities Answer Date Recorded In the past 12 months has [employer] electric, gas, oil, or water [employer] threatened to shut off services in your home? Patient declined 05/22/2023 Social Connection and Isolation Panel [NHANES] A nswer Date Recorded In a typical week, how many times do you talk on the phone with family, friends, or neighbors? Patient declined 05/22/2023 How often do you get togethe r with friends or relatives? Patient declined 05/22/2023 How often do you attend jew or mandaen serv ices? Patient declined 05/22/2023 Do you belong to any clubs o r organizations such as jew groups, unions, fraternal or athletic groups, or [...] heating? Patient declined 05/22/2023 [facility] - [facility] Stress Questionnaire Answer Date Recorded [...] place to sleep or slept in a nursing home (including now)? Patient declined 05/22/2023 Sexually [...] st Contact Info) Description 03/27/2024 8:30 AM WEEKEND CAREGIVER [facility] [address] [place] [address] Burt Eastman MD [address] [address] 03/27/2024 8:30 AM WEEKEND CAREGIVER - 03/27/2024 9:00 AM WEEKEND CAREGIVER [facility] [address] [place] [address] Burt Eastman MD [address] [address] COLONOSCOPY 04/09/2024 1:15 PM WEEKEND CAREGIVER Office Visit [facility] - Pulmonology & Sleep Medicine [facility] [address]2 [place] [address] Baron Vergara MD [address] [place] [address] Scheduled Procedures Name Priority Associated Diagnoses Date/Ti me COLONOSCOPY HISTORY OF COLON POLYPS 03/27/2024 8:30 AM WEEKEND CAREGIVER documented as of this encounter Visit Diagnoses Not on filedocumented in this encounter Additional Health Concerns Infection Onset Date Last Indicated Resolved Time COVID - 19 05/21/2023 05/21/2023 05/21/2023 10:3 5 PM CDT documented as of this encounter Care Teams Director Skills Relationship Specialty Start Date End Date Daja Kern MD [address] [place] [address] PCP - General Internal Medicine 03/13/15 documented as of this encounter
--- OUTSIDE RECORDS SUMMARY | 2024-03-03 19:26 | XMS_ITS | Encounter Summary ---
Author Organization [facility] Address [address] [place] [address] Phone Care Team Providers Care Preventive Medicine Specialist Name Role Phone Daja Kern MD Primary Care Provider [phone] Baron Vergara MD Unavailable Reason for Referral * Consult, Test & Initiate Treatment (Routine) - Closed Specialty Diagnoses / Procedures Referred By Ladi aguilar Referred To Contact Sleep Center Diagnoses KWABENA (obstructive sleep apnea) Baron Vergara MD [address] [place] [address] Phone: tel: fax: [facility] Lab [address] [place] [address] Phone: tel: fax: Referral ID Status Reason Start Date Expiration Date Visits Re quested Visits Authorized [id number] Closed 06/26/2023 1 1 Scheduling Instructions Alona is being referred for sleep. Please contact patient for scheduling questions or concerns. * Other (Routine) - Closed Specialty Diagnoses / Procedures Referred By Ladi t Referred To Contact Pulmonology Diagnoses Cocaine use Procedures COMPLETE PFT W + W/O BRONCHODILATOR Baron Vergara MD [address] [place] [address] Phone: tel: fax: Referral ID Status Reason Start Date Expiration Date Visits Re quested Visits Authorized [id number] Closed 06/26/2023 1 1 Reason for Visit * Reason Comments Post-Hospital Follow-up For COPD Encounter Details Date Type Department Care Team (Late st Contact Info) Description 06/26/2023 1:15 PM CDT Office Visit [facility] - Pulmonology & Sleep Medicine [facility] [address] [place] [id number] Baron Vergara MD [address] [place] [address] KWABENA (obstructive sleep apnea) (Primary Dx); Morbid obesity (HCC); Primary hypertension; Cocaine use; Anxiety Discharge Disposition: Discharged to home or Selfcare Social History Tobacco Use Types Packs/Day Years Used Date Smoking Tobacco: Never Smokeless Tobacco: Never Tobacco Cessation:Counseling Given: Not Answered Alcohol Use Standard Drinks/Week Comments No 0 (1 standard drink = 0.6 oz pur e alcohol) [facility] Utilities Answer Date Recorded In the [...] often do you attend latter day or caodaism serv ices? Patient declined 05/22/2023 Do you [...] medical care, and heating? Patient declined 05/22/2023 [facility] - Occupational [...] Sign Reading Time Taken Comments Blood Pressure 124/84 06/26/2023 1:37 PM CDT Pulse 79 06/26/2023 1:37 PM CDT Temperature 36.3 ??C (97.3 ??F) 06/26/2023 1:37 PM CD T Respiratory Rate 16 06/26/2023 1:37 PM CDT Oxygen Saturation 95% 06/26/2023 1:37 PM CDT Inhaled Oxygen Concentration - - Weight 125.8 kg (277 lb 4.8 oz) 06/26/2023 1:37 PM CDT Height 157.5 cm (5' 2 ) 06/26/2023 1:37 PM CDT Body Mass Index 50.72 06/26/2023 1:37 PM CDT documented in this encounter Progress Notes * Baron Vergara MD - 06/26/2023 1:15 PM CDT Images from the original note were not included. Progress Note Subjective: HPI: Alona Kemp is a 52 y.o. female with following problems came for a follow-up after hospital discharge he was admitted in April with COPD exacerbation. Sleep study was done 5 years ago at [facility] CPAP is working off and on Occasional cough Non smoker Has SOB and ARTHUR Denies GERD Used cocaine in April Problem List: Patient Active Problem List Diagnosis Date Noted Crack cocaine use 04/30/2023 Vitamin D deficiency 01/02/2023 KWABENA (obstructive sleep apnea) 01/02/2023 Nephrocalcinosis 01/02/2023 NAFLD (nonalcoholic fatty liver disease) 01/02/2023 IBS (irritable bowel syndrome) 01/02/2023 HTN (hypertension) 01/02/2023 DDD (degenerative disc disease), lumbar 01/02/2023 Cocaine abuse (HCC) 01/02/2023 Adenomatous colon polyp 01/02/2023 Stimulant withdrawal (HCC) 01/02/2023 Influenza A 02/09/2022 Influenza A H1N1 infection 02/08/2022 COVID-19 virus infection 02/08/2022 Small bowel obstruction (HCC) 08/03/2021 Anxiety 08/03/2021 Type 2 diabetes mellitus, without long-term current use of insulin ([facility]) 08/03/2021 Dehydration 08/03/2021 UTI (urinary tract infection) 08/03/2021 Morbid obesity ([facility]) 02/20/2021 Sepsis ([facility]) 10/03/2018 Enterocolitis 10/03/[address] scan 10/03/2018 Cocaine use 10/03/2018 GERD (gastroesophageal reflux disease) HLD (hyperlipidemia) Bipolar disorder ([facility]) Depression Hypothyroid SBO (small bowel obstruction) ([facility]) 09/2018 Lumbar pars defect 08/09/2017 Lumbar facet arthropathy 08/09/2017 Past Medical History: has a past medical history of Adenomatous colon polyp, Anxiety, Bipolar disorder ([facility]), Cocaine abuse ([facility]), COPD (chronic obstructive pulmonary disease) ([facility]), DDD (degenerative disc disease), lumbar, Depression, Diabetes mellitus ([facility]), GERD (gastroesophageal reflux disease), HLD (hyperlipidemia), HTN (hypertension), Hypothyroid, IBS (irritable bowel syndrome), Morbid obesity ([facility]), NAFLD (nonalcoholic fatty liver disease), Nephrocalcinosis, KWABENA (obstructive sleep apnea), SBO (small bowel obstruction) ([facility]) (09/2018), and Vitamin D deficiency. Past Surgical History: has a past surgical history that includes Section (1994); Cholecystectomy (2004); EGD (2012?); Colonoscopy; [place] Tooth Extraction (1991); Colonoscopy (N/A, 11/16/2018); and [...] Type Start Date End Date Comment Verified Manager Sales Support Risperidone Intolerance 09-Aug-2017 Severity: High Reactions: Other (see Comments) Comment: Violentand agitated. Jarvis Hopkins PAC (Physician Emblem Fuser Tender) Sulfa Antibiotics Allergy 01-Sep-2015 Severity: Medium Reactions: Sandra Quinn RN Topiramate Intolerance 09-Aug-2017 Severity: High Reactions: Other (see Comments) Comment: Difficulty with speech and word finding. Jarvis Hopkins, MIKE (Physician Emblem Fuser Tender) Ziprasidone Hcl Unknown 09-Aug-2017 Severity: High Reactions: Other (see Comments) Comment: Abnormal mouth movements Jarvis Hopkins, PAC (Physician Emblem Fuser Tender) Medication List: Current Outpatient Medications Medication Sig [...] Sulfa Antibiotics Hives Objective: Vitals: Blood pressure 124/84, pulse 79, temperature 97.3 ??F (36.3 ??C), resp. rate 16, height 5' 2 (1.575 m), weight 277 lb 4.8 oz (125.8 kg), last menstrual period 11/12/2019, SpO2 95%. Gen/Constitutional: Obese no distress HEENT: Normocephalic, atraumatic. [...] nontender, bowel sounds present, no hepatosplenomegaly. Ext: Trace edema Neuro: Alert, Oriented to person, place and time. Normal mood and affect. Skin: Warm and dry, without lesions Musculoskeletal: Normal gait and station, strength equal and normal and full ROM in all 4 extremities Assessment & Plan: ICD-10-CM 1. KWABENA (obstructive sleep apnea) G47.33 SLEEP STUDY REFERRAL 2. Morbid obesity (HCC) E66.01 3. Primary hypertension I10 4. Cocaine use F14.90 COMPLETE PFT W + W/O BRONCHODILATOR 5. Anxiety F41.9 Plan: Continue CPAP Discussed sleep hygiene Continue antihypertensives Abstinence from cocaine Continue anxiolytics Encouraged to loose weight Return in about 3 months (around 09/25/2023). Documentation for this visit on June 25 was completed using a template. I have seen and examinedthe patient. Everything documented was personally performed at this visit with the necessary additions, deletions and changes made as appropriate. Baron Vergara MD 06/26/2023 1:50 PM CDT documented in this encounter Plan of Treatment Upcoming Encounters Date Type Department Care Team (Late st Contact Info) Description 03/27/2024 8:30 AM TECHNICIAN SEMICONDUCTOR DEVELOPMENT Hospital Encounter [facility] Lab Periop [address] [place] [address] Burt Eastman MD 2 [facility] [address] [address] 03/27/2024 8:30 AM TECHNICIAN SEMICONDUCTOR DEVELOPMENT - 03/27/2024 9:00 AM TECHNICIAN SEMICONDUCTOR DEVELOPMENT [facility] 1 [facility] [place] [address] Burt Eastman MD 2 [facility]UC [address] [address] COLONOSCOPY 04/09/2024 1:15 PM TECHNICIAN SEMICONDUCTOR DEVELOPMENT Office Visit [facility] - Pulmonology & Sleep Medicine [facility] [address] [place] [address] Baron Vergara MD [address] [place] [address] Scheduled Procedures Name Priority Associated Diagnoses Date/Ti me COLONOSCOPY HISTORY OF COLON POLYPS 03/27/2024 8:30 AM TECHNICIAN SEMICONDUCTOR DEVELOPMENT Scheduled Referrals Name Type Priority Associated Diagnoses Orde r Schedule SLEEP STUDY REFERRAL Outpatient Referral Routine KWABENA (obstructive sleep apnea) Expected: 06/26/2023, Expires: 07/26/2023 documented as of this encounter Results * Complete PFT W + W/O Bronchodilator (07/07/2023) FVC 2.75 L FVC %Predicted 92 % FVC Post-Bronchodila tor na (L) FEV1 2.26 L FEV1 %Predicted 91 % FEV1 Post-Bronchodila tor na (L) FEV1/FVC 100 % FEF 25-75% 2.49 L/sec TLC 5.14 L TLC %Predicted 110 (Pleth) (L) RV 2.17 L RV %Predicted 128 (Pleth) (L) Airway Resistance 5.78 cmH2O/L/s DLCO 21.06 ml/min/mmH g DLCO %Predicted 92 (ml/min/mm Hg) Baron Vergara MD PFT ORDERABLES Final Result documented in this encounter Visit Diagnoses Diagnosis KWABENA (obstructive sleep apnea)- Primary Obstructive sleep apnea (adult) (pediatric) Morbid obesity (HCC) Morbid obesity Primary hypertension Unspecified essential hypertension Cocaine use Cocaine abuse, unspecified Anxiety Anxiety state, unspecified documented in this encounter Care Teams Preventive Medicine Specialist Relationship Specialty Start Date End Date Daja Kern MD [address] [place] [address] PCP - General Internal Medicine 03/13/15 Baron Vergara MD [address] [place] [address] Consulting Physician Pulmonary Disease 06/26/23 documented as of this encounter
--- OUTSIDE RECORDS SUMMARY | 2024-03-03 19:26 | XMS_ITS | Encounter Summary ---
Author Organization [employer] Care Team Providers Care Seat Covers Trimmer Name Role Phone Daja Kern MD Primary Care Provider Baron Vergara MD Unavailable Encounter Details Date Type Department Care Team (Latest Contact Info) Description 10/03/2023 Travel Social History Tobacco Use Types Packs/Day Years Used Date Smoking Tobacco: Never Smokeless Tobacco: Never Alcohol Use Standard Drinks/Week Comments No 0 (1 standard drink = 0.6 oz pur e alcohol) [facility] Utilities Answer Date Recorded In the past 12 months has [facility] electric, gas, oil, or water company threatened [...] How often do you attend voodoo or latter day serv ices? Patient declined 05/22/2023 Do you [...] medical care, and heating? Patient declined 05/22/2023 [facility] - Occupational Stress Questionnaire Answer [...] st Contact Info) Description 03/27/2024 8:30 AM DESIGN SPECIALIST [facility] Periop [address] [place] [address] Burt Eastman MD [address] [address] 03/27/2024 8:30 AM DESIGN SPECIALIST - 03/27/2024 9:00 AM DESIGN SPECIALIST [facility] Periop [address] [place] [address] Burt Eastman MD [address] [address] COLONOSCOPY 04/09/2024 1:15 PM DESIGN SPECIALIST Office Visit [facility] - Pulmonology & Sleep Medicine [facility] #2 [place] [address] Baron Vergara MD [address] [place] [address] Scheduled Procedures Name Priority Associated Diagnoses Date/Ti me COLONOSCOPY HISTORY OF COLON POLYPS 03/27/2024 8:30 AM DESIGN SPECIALIST documented as of this encounter Visit Diagnoses Not on filedocumented in this encounter Care Teams Seat Covers Trimmer Relationship Specialty Start Date End Date Daja Kern MD [address] [place] [address] PCP - General Internal Medicine 03/13/15 Baron Vergara MD [address] [place] [address] Consulting Physician Pulmonary Disease 06/26/23 documented as of this encounter
--- OUTSIDE RECORDS SUMMARY | 2024-03-03 19:26 | XMS_ITS | Encounter Summary ---
Author Organization [facility] Address [address] [place] [address] Phone Care Team Providers Care Liaison Engineer Name Role Phone Daja Kern MD Primary Care Provider [phone] Baron Vergara MD Unavailable Reason for Referral * Other (Routine) - Closed Specialty Diagnoses / Procedures Referred By Contac t Referred To Contact Pulmonology Diagnoses Cocaine use Procedures COMPLETE PFT W + W/O BRONCHODILATOR Baron Vergara MD [address] [place] [address] Phone: tel: fax: Referral ID Status Reason Start Date Expiration Date Visits Re quested Visits Authorized [id number] Closed 06/26/2023 1 1 Reason for Visit * Other (Routine) - Closed Specialty Diagnoses / Procedures Referred By Ladi aguilar Referred To Contact Pulmonology Diagnoses Cocaine use Procedures COMPLETE PFT W + W/O BRONCHODILATOR Baron Vergara MD [address] [place] [address] Phone: tel: fax: Referral ID Status Reason Start Date Expiration Date Visits Re quested Visits Authorized [id number] Closed 06/26/2023 1 1 Encounter Details Date Type Department Care Team (Latest Contact Info) Description 07/07/2023 2:47 PM CDT - 07/07/2023 11:59 PM CDT Hospital Encounter [facility] [address] [place] [address] Baron Vergara MD [address] [place] [address] Discharge Disposition: Discharged to home or Selfcare Social History Tobacco Use Types Packs/Day Years Used Date Smoking Tobacco: Never Smokeless Tobacco: Never Alcohol Use Standard Drinks/Week Comments No 0 (1 standard drink = 0.6 oz pur e alcohol) [facility] Utilities Answer Date Recorded In the [...] How often do you attend taoism or quaker serv ices? Patient declined 05/22/2023 Do you [...] medical care, and heating? Patient declined 05/22/2023 [facility] - Occupational Stress [...] 08/06/19 24 documented as of this encounter Procedure Notes * Baron Vergara MD - 07/07/2023 11:59 PM CDT PULMONARY FUNCTION TEST Admit: 07/07/2023 CSN: [id number] Dictating Provider: [id number] Baron Vergara MD DATE OF STUDY: 07/07/2023 FVC is 92% predicted. FEV1 is 91% predicted. FEV1/FVC ratio is 82. There is no post bronchodilator spirometry done. Total lung capacity is 110% predicted. There is evidence of hyperinflation and air trapping. Upper airways resistance is increased. Diffusion capacity is normal. Good patient effort was seen. Flow volume loop is consistent with spirometry. No previous studies to compare. INTERPRETATION: No evidence of airways obstruction or airways restriction. Diffusion capacity is normal. NA/MODL /[id number] documented in this encounter Plan of Treatment Upcoming Encounters Date Type Department Care Team (Late st Contact Info) Description 03/27/2024 8:30 AM STARCHER AND TENTER RANGE FEEDER Hospital Encounter [facility] Periop 1 [place] [address] Burt Eastman MD [address] [address] 03/27/2024 8:30 AM STARCHER AND TENTER RANGE FEEDER - 03/27/2024 9:00 AM STARCHER AND TENTER RANGE FEEDER [facility] 1 [place] [address] Burt Eastman MD [address] [address] COLONOSCOPY 04/09/2024 1:15 PM STARCHER AND TENTER RANGE FEEDER Office Visit [facility] - Pulmonology & Sleep Medicine [facility] #[address] [place] [address] Baron Vergara MD [address] [place] [address] Scheduled Procedures Name Priority Associated Diagnoses Date/Ti me COLONOSCOPY HISTORY OF COLON POLYPS 03/27/2024 8:30 AM STARCHER AND TENTER RANGE FEEDER documented as of this encounter Procedures Procedure Name Priority Date/Time Associated Diagnosis Comments COMPLETE PFT W + W/O BRONCHODILATOR Routine 07/07/2023 Cocaine use documented in this encounter Results * Complete PFT W [...] documented in this encounter Visit Diagnoses Diagnosis Cocaine use Cocaine abuse, unspecified documented in this encounter Care Teams Liaison Engineer Relationship Specialty Start Date End Date Daja Kern MD [address] [place] [address] PCP - General Internal Medicine 03/13/15 Baron Vergara MD [address] [place] [address] Consulting Physician Pulmonary Disease 06/26/23 documented as of this encounter
--- OUTSIDE RECORDS SUMMARY | 2024-03-03 19:26 | XMS_ITS | Encounter Summary ---
Author Organization [facility] Address [address] [place] [address] Phone Care Team Providers Care Laundry Operator Wash Room Name Role Phone Daja Kern MD Primary Care Provider [phone] Baron Vergara MD Unavailable Reason for Referral * Sleep Medicine (Routine) - Canceled Specialty Diagnoses / Procedures Referred By Ladi aguilar Referred To Contact Diagnoses Obstructive sleep apnea (adult) (pediatric) Procedures SPLIT NIGHT PSG Baron Vergara MD [address] [place] [address] Phone: tel: fax: Referral ID Status Reason Start Date Expiration Date V isits Requested Visits Authorized [id number] Canceled 06/29/2023 1 1 Encounter Details Date Type Department Care Team (Late st Contact Info) Description 06/29/2023 Transcribe [facility] [address] [place] [address] Baron Vergara MD [address] [place] [address] Obstructive sleep apnea (adult) (pediatric) (Primary Dx) Social History Tobacco Use Types Packs/Day Years Used Date Smoking Tobacco: Never Smokeless Tobacco: Never Alcohol Use Standard Drinks/Week Comments No 0 (1 standard drink = 0.6 oz pur e alcohol) [facility] Utilities Answer Date Recorded In the past [...] declined 05/22/2023 How often do you attend rastafari or mormonism serv ices? Patient declined 05/22/2023 Do you belong to any clubs o r organizations such as rastafari groups, unions, fraternal or athletic groups, or [...] medical care, and heating? Patient declined 05/22/2023 [facility] - Occupational [...] st Contact Info) Description 03/27/2024 8:30 AM [facility] Periop [address] [place] [address] Burt Eastman MD [address] [address] 03/27/2024 8:30 AM CHAPLAINCY - 03/27/2024 9:00 AM [facility] Periop [address] [place] [id number] Burt Eastman MD [address] [address] COLONOSCOPY 04/09/2024 1:15 PM [facility]LAIN[facility] Office Visit [facility] - Pulmonology & Sleep Medicine [facility] [address] [place] [phone] Baron Vergara MD [address] [place] [phone] Scheduled Procedures Name Priority Associated Diagnoses Date/Ti me COLONOSCOPY HISTORY OF COLON POLYPS 03/27/2024 8:30 AM CHAPLAINCY documented as of this encounter Results * SPLIT NIGHT PSG (07/26/2023) Baron Vergara MD SLEEP CENTER ORDERABLES Final Re sult documented in this encounter Visit Diagnoses Diagnosis Obstructive sleep apnea (adult) (pediatric)- Primary documented in this encounter Care Teams Laundry Operator Wash Room Relationship Specialty Start Date End Date Daja Kern MD [address] [place] [address] PCP - General Internal Medicine 03/13/15 Baron Vergara MD [address] [place] [phone] Consulting Physician Pulmonary Disease 06/26/23 documented as of this encounter
--- OUTSIDE RECORDS SUMMARY | 2024-03-03 19:27 | XMS_ITS | Encounter Summary ---
Author Organization [facility] [employer] [facility] Care Team Providers Care Computer Forensics Investigator Name Role Phone Daja Kern MD Primary Care Provider [phone] Encounter Details Date Type Department Care Team (Latest Contact Info) Description 05/02/2022 Travel Social History Tobacco Use Types Packs/Day [...] Orientation Straight 06/02/2023 1: 39 AM CDT COVID-19 Exposure Response Date Recorded In the last 10 days, have yo u been in contact with someone who was confirmed or suspected to have Coronavirus/COVID-19? No / Unsure 05/02/2022 9:59 AM FACULTY SUPPORT COORDINATOR documented as of this encounter Plan of Treatment Upcoming Encounters Date Type Department Care Team (Late st Contact Info) Description 03/27/2024 8:30 AM FACULTY SUPPORT COORDINATOR [facility] Per[facility] [address] [place] [address] Burt Eastman MD 2 [facility] [address] [address] 03/27/2024 8:30 AM FACULTY SUPPORT COORDINATOR - 03/27/2024 9:00 AM FACULTY SUPPORT COORDINATOR [facility] [address] [place] [address] Burt Eastman MD [address] [address] COLONOSCOPY 04/09/2024 1:15 PM FACULTY SUPPORT COORDINATOR [facility] [address] [place] [address] Baron Vergara MD [address] [place] [address] Scheduled Procedures Name Priority Associated Diagnoses Date/Ti me COLONOSCOPY HISTORY OF COLON POLYPS 03/27/2024 8:30 AM FACULTY SUPPORT COORDINATOR documented as of this encounter Visit Diagnoses Not on filedocumented in this encounter Care Teams Computer Forensics Investigator Relationship Specialty Start Date End Date Daja Kern MD [address] [place] [address] PCP - General Internal Medicine 03/13/15 documented as of this encounter
--- OUTSIDE RECORDS SUMMARY | 2024-03-03 19:27 | XMS_ITS | Encounter Summary ---
Author Organization [facility] Address [address] [place] [address] Phone Care Team Providers Care Special Police Name Role Phone Daja Kern MD Primary Care Provider [phone] Reason for Visit * Auth/Cert (Routine) Specialty Diagnoses / Procedures Referred By Contac t Referred To Contact Referral ID Status Reason Start Date Expiration Date Visits Re quested Visits Authorized [id number] 1 1 Encounter Details Date Type Department Care Team (Late st Contact Info) Description 02/24/2022 12:00 PM INTEGRITY CONSULTANT [facility] [address] [place] [address] Dhara Mendez[place] - [place]IS[place] Social History Tobacco Use Types Packs/Day Years [...] suspected to have Coronavirus/COVID-19? No / Unsure 02/24/2022 12:13 PM INTEGRITY CONSULTANT documented as of this encounter Last Filed Vital Signs Vital Sign [place] Time Taken Comments Blood Pressure 141/90 02/24/2022 12:10 PM INTEGRITY CONSULTANT Pulse 91 02/24/2022 12:10 PM INTEGRITY CONSULTANT Temperature 36.7 ??C (98 ??F) 02/24/2022 12:10 PM INTEGRITY CONSULTANT Respiratory Rate 18 02/24/2022 12:10 PM INTEGRITY CONSULTANT Oxygen Saturation 96% 02/24/2022 12:10 PM INTEGRITY CONSULTANT Inhaled Oxygen Concentration - - Weight - - Height - - Body Mass Index - - documented in this encounter Plan of Treatment Upcoming Encounters Date Type Department Care Team (Late st Contact Info) Description 03/27/2024 8:30 AM INTEGRITY CONSULTANT [facility] [address] [place] [address] Burt Eastman MD [address] [address] 03/27/2024 8:30 AM INTEGRITY CONSULTANT - 03/27/2024 9:00 AM INTEGRITY CONSULTANT [facility] [address] [place] [address] Burt Eastman MD [address] [address] COLONOSCOPY 04/09/2024 1:15 PM INTEGRITY CONSULTANT Office Visit [facility] - Pulmonology & Sleep Medicine [facility] [address] [place] [address] Baron Vergara MD [address] [place] [address] Scheduled Procedures Name Priority Associated Diagnoses Date/Ti me COLONOSCOPY HISTORY OF COLON POLYPS 03/27/2024 8:30 AM INTEGRITY CONSULTANT documented as of this encounter Visit Diagnoses Not on filedocumented in this encounter Additional Health Concerns Infection Onset Date Last Indicated Resolved Time Respiratory Rule-Out 02/08/2022 02/08/2022 023 12:16 AM INTEGRITY CONSULTANT COVID - 19 Confirmed 02/08/2022 02/08/2022 023 12:16 AM INTEGRITY CONSULTANT documented as of this encounter Home Health Visit - Care Plan Visit Details Visit Type -SN - Home Health Visit Discipline -Detention Problems Problem Description Start Date Status Goals Interve ntions FALL PREVENTION (O) Disciplines: SN, PT, OT, HYDRAULIC PUNCH PRESS OPERATOR, HCA, FINISHER FIBERGL[employer]AT PARTS, RT 02/11/2022 Active 1 goal linked to scheduled/documen arnulfo intervention 1 goal intervention scheduled/document ed in this visit ALL VITAL SIGN PARAMETERS Disciplines: All Home Care 02/11/2022 Active - 1 problem intervention scheduled/document ed in this visit /[facility] COVID-19 Disciplines: SN, PT, OT, HYDRAULIC PUNCH PRESS OPERATOR, FINISHER F[employer]AT [employer]S, RT 02/11/2022 Active 1 goal linked to scheduled/documen arnulfo intervention 1 goal intervention scheduled/document ed in this visit DEPRESSION Disciplines: Detention Depression Risk 02/11/2022 Active 1 goal linked to scheduled/documen arnulfo intervention 1 goal intervention scheduled/document ed in this visit HYPERTENSION ORDERS Disciplines: Detention Hypertension Orders 02/11/2022 Active 1 goal linked to scheduled/documen arnulfo intervention 1 goal intervention scheduled/document ed in this visit PAIN-MANAGEMENT /EDUCATION Disciplines: Skilled Clinicians 02/11/2022 Active 1 goal linked to scheduled/documen arnulfo intervention 1 goal intervention scheduled/document ed in this visit SN GENERAL ORDERS Disciplines: Detention SN General Orders 02/11/2022 Active 1 goal linked to scheduled/documen arnulfo intervention 2 goal interventions scheduled/document ed in this visit Goals Goal Associated Problem Outcome Goal Met? Visit Notes Fall Prevention Description: Shared goal applicable to all disciplines with a visit frequency order. Patient/ Caregiver will verbalize understanding of identified fall risk based on MAHC-10 Fall Risk assessment and methods to prevent falls. Target date: by 03/05/22 (date) FALL PREVENTION (O) No COVID-19 Description: Patient/caregivers will verbalize understanding of COVID-19 and symptoms to report and home management strategies by date 02/26/22 /[facility] COVID-19 No Depression Description: Patient will verbalize understanding of depression self help measures. Target date: by 03/19/22 (date) DEPRESSION No Hypertension Description: Patient will demonstrate knowledge of Hypertension disease process, treatment goals and self-care management. Target date: by 03/19/22 (date) HYPERTENSION ORDERS No Pain Management/Education Description: Shared goal applicable to all disciplines with visit frequency order. Patient's pain level will remain at an acceptable level of 3 or lower with current pain medications/interventions. Target date: by 04/02/22 PAIN-MANAGEMENT/EDUCATION No SN General Description: After assessing the patient and discussing the patient's goals the following were identified: 1. Patient will demonstrate effective self-care management including understanding of ordered medication regimen, signs and symptoms to report, and recommended follow up with physician. Target date: by 02/19/22. 2. Patient will verbalize understanding of medication regimen including name, actions, reason for use, evaluation of effectiveness, side effects, and administration instructions. Target date: by 02/19/22. 3. Patient centered long-term goal to get over this covid. Target date: by 03/05/22 SN GENERAL ORDERS No Interventions Intervention Associated Problem/Goal Status Variance Visit Notes Fall (Order Only) Description: Shared intervention applicable to all disciplines with a visit frequency order.Patient meets criteria for Fall Risk based on MAHC-10 score. Instruct patient/caregiver on fall prevention measures. Problem:FALL PREVENTION (O) Goal:Fall Prevention Completed All Vital Sign Parameters (Order Only) Description: Standard parameters to report to physician (unless patient specific parameters are ordered) - Applicable to all disciplines involved in patient's plan of care: Systolic blood pressure less than 90 Systolic blood pressure greater than 160 and/or diastolic blood pressure greater than 100 at rest unless due to uncontrolled pain or missed dose of antihypertensive medication. Blood Pressure greater than 140/90 for 3 consecutive readings occurring in at least two separate visits. Pulse greater than 110 at rest or less than 50 Respirations greater than 24 at rest or less than 10 Temperature greater than 101 degrees Fahrenheit New or increased edema Pulse ox less than 90% at rest on room air or while wearing prescribed oxygen, if ordered. Uncontrolled pain: chronic pain that changes in character or increases, pain that interferes with activity daily, or pain that is reported as unacceptable by the patient after use of prescribed pain control measures. Problem:ALL VITAL SIGN PARAMETERS Completed COVID-19 Evaluation/Education Description: Perform COVID-19 monitoring and education including symptoms to report, social distancing, aerosolizing procedures, and COVID-19 precautions. Problem:/[facility] COVID-19 Goal:COVID-19 Completed Is patient experiencing any new or worsening COVID-19 symptoms? No COVID-19 education provided: Check Pulse Oximetry twice daily and if experiencing breathing difficulty, also encouraged after performing activities, Call Home Care if pulse ox remains below 90%, Report new or worsening symptoms: Fever 100.4F/38C or above, cough, shortness of breath, Seek urgent care if unable to breathe, persistent chest pain or pressure, new confusion/ unable to arouse, blue lips/ face and Home isolation for physician recommended timeframe. Instruction provided to Patient. Response verbalize understanding Depression (O) Description: Patient at risk for depression. Skilled nurse to instruct on signs and symptoms to report, and self help measures. Problem:DEPRESSION Goal:Depression Completed Depression Education Provided: Activity- Engage in mild activity or exercise, set realistic goals for yourself, break up large tasks into small ones and Medication- Do not stop taking medication without notifying your physician, most medications take 2-3 weeks before you notice changes in the way you feel Instruction provided to: Patient. Response verbalize understanding. Hypertension (O) Description: Instruct on hypertension, signs/symptoms, complications and methods to prevent. Problem:HYPERTENSI ON ORDERS Goal:Hypertension Completed Hypertension education provided: None at this visit Instruction provided to Patient. Response verbalize understanding. Pain Management/Education (O) Description: Instruct patient/ caregiver on strategies to manage pain. Problem:PAIN-MANAG EMENT/EDUCATION Goal:Pain Management/Educati on Completed Pain management plan: 1. Set a realistic goal for the day. 2. Plan rest periods. 3. Do not wait until pain is severe before doing something to relieve it. 4. Take your medicine regularly as directed. 5. Perform exercises as instructed. 6. Do something that makes you feel productive each day. 7. Make contact with family and friends. 8. Try non drug methods such as massage, aromatherapy, relaxation, and deep breathing. 9. Relaxation/ Breathing instructions: Relaxation helps to decrease muscle tension and stress. Sit in a relaxed position and focus on breathing, close your eyes. Breathe deeply and slowly (not too deeply to avoid muscle tension). If needed, count while breathing to assist with focus. Instruction provided daily pain plan. Instruction provided to Patient. Response verbalize understanding. General Nursing Plan of Care (Order Only) Description: Admission Certification: 51 y.o female admitted to Home Care Services for Acute respiratory failure with hypoxia . Estimation of how long skilled services will be required 60 days. Face to Face encounter occurred on 02/10/[address] contacted and agrees with plan of care. Clinical findings: Patient was inpatient for 3 days w/ covid-19 and influenza A. At present pt is a&o x4 but starts falling asleep repeatedly during interview, wakes upon name being called once or twice. Pt c/o feeling so sick , coughing - at times productive, pt reports green thick sputum, lungs diminished throughout, O2 sat 97% on room air but short of breath with minimal exertion. Reports having pain to back rating 5 on 0-10 pain scale due to diagnosis of disc degeneration. Pt states that she has never been diagnosed w/ diabetes but is borderline. Verbalizes good understanding of medications. Skilled Nurse Focus: education and disease management of covid-19 Physical Therapy to evaluate and treat for: strengthening, mobility, balance, safety w/ walking, transfers and stairs Occupational Therapy to evaluate and treat for: ADLs and IADLs, balance, safety, DME Speech Therapy to evaluate and treat for: not ordered Social Work Focus: ACP, depression, financial resources Civil Preparedness Training Officer to provide: not ordered Past Medical History: Lumbar pars defect [M43.06], Lumbar facet arthropathy [M47.816] 08/09/2017, GERD (gastroesophageal reflux disease) [K21.9], Hypertension [I10], Hyperlipidemia [E78.5], Bipolar disorder ([facility]) [F31.9], Depression [F32.A], Hypothyroid [E03.9], Sepsis ([facility]) [A41.9] 10/03/2018, Enterocolitis [K52.9] 10/03/2018, Abnormal CT scan [R93.89] 10/03/2018, Cocaine use [F14.90] 10/03/2018, SBO (small bowel obstruction) ([facility]) [K56.609] 02/20/2021, Morbid obesity with BMI of 45.0-49.9, adult ([facility]) [E66.01, Z68.42] 02/20/2021 Other contributing issues: no caregiver available, lives alone, weakness Skilled Nurse to instruct patient/caregiver on signs and symptoms to report, emergency measures, safety measures, diet, and activity. Instruct on medication regime, and patient management. Perform physical assessment including vital signs and pain assessment. Perform pulse oximetry PRN for intermittent assessment and/ or respiratory distress. Homebound Criteria 1- Patient has illness/injury: covid-19, and needs/has: unsteady gait/frequent falls/poor balance and medical contraindication due to covid-19 Homebound Criteria 2- Inability to leave the home and leaving the home requires a taxing and considerable effort due to: dyspnea with ambulation greater than 10 feet and leaving home exacerbates symptoms fatigue Patient has the following structural impairments: Structures of the nervous system and Structures related to movement Patient has the following functional impairments: Functions of the cardiovascular system, Functions of the respiratory system and Neuromusculoskeletal and movement related functions The patient's activity limitation affects the following: Communication, Mobility, Self-care, Domestic life and Interpersonal interactions and relationships Telehealth contact via video or phone by any discipline as needed to assess/monitor condition related to current diagnoses, to assist with achieving identified goals. Problem:SN GENERAL ORDERS Goal:SN General Completed Additional Disease Management (O) Description: SN to monitor for signs and symptoms of exacerbation or complications of Hypertension and Depression. Problem:SN GENERAL ORDERS Goal:SN General Completed Exacerbation/ complications noted at this visit: none documented in this encounter Care Teams Special Police Relationship Specialty Start Date End Date Daja Kern MD [address] [place] [address] PCP - General Internal Medicine 03/13/15 documented as of this encounter
--- OUTSIDE RECORDS SUMMARY | 2024-03-03 19:27 | XMS_ITS | Encounter Summary ---
Author Organization [facility] Address [address] [place] [address] Phone Care Team Providers Care Client Advocate Name Role Phone Daja Kern MD Primary Care Provider Reason for Visit * Auth/Cert (Routine) Specialty Diagnoses / Procedures Referred By Contac t Referred To Contact Referral ID Status Reason Start Date Expiration Date Visits Re quested Visits Authorized 1 1 Encounter Details Date Type Department Care Team (Late st Contact Info) Description 03/15/2022 3:30 PM MASON APPRENTICE [facility] [address] [place] [address] Bailey Hoover OTA PR OT - HOME VISIT Social History Tobacco Use [...] suspected to have Coronavirus/COVID-19? No / Unsure 03/15/2022 2:52 PM MASON APPRENTICE documented as of this encounter Last Filed Vital Signs Vital Sign Reading Time Taken Comments Blood Pressure 144/92 03/15/2022 3:08 PM MASON APPRENTICE Pulse 120 03/15/2022 3:08 PM MASON APPRENTICE Temperature 36.6 ??C (97.9 ??F) 03/15/2022 3:08 PM CS T Respiratory Rate 18 03/15/2022 3:08 PM MASON APPRENTICE Oxygen Saturation 96% 03/15/2022 3:08 PM MASON APPRENTICE Inhaled Oxygen Concentration - - Weight - - Height - - Body Mass Index - - documented in this encounter Plan of Treatment Upcoming Encounters Date Type Department Care Team (Late st Contact Info) Description 03/27/2024 8:30 AM MASON APPRENTICE [facility] [address] [place] [address] Burt Eastman MD [address] [address] 03/27/2024 8:30 AM MASON APPRENTICE - 03/27/2024 9:00 AM MASON APPRENTICE [facility] [address] [place] [address] Burt Eastman MD [address] [address] COLONOSCOPY 04/09/2024 1:15 PM MASON APPRENTICE Office Visit [facility] - Pulmonology & Sleep Medicine [facility] [address] [place] [address] Baron Vergara MD [address] [place] [address] Scheduled Procedures Name Priority Associated Diagnoses Date/Ti me COLONOSCOPY HISTORY OF COLON POLYPS 03/27/2024 8:30 AM MASON APPRENTICE documented as of this encounter Visit Diagnoses Not on filedocumented in this encounter Home Health Visit - Care Plan Visit Details Visit Type -OT - HOME VISIT Discipline -Occupational Therapy Problems Problem Description Start Date Status Goals Interve ntions ALL VITAL SIGN PARAMETERS Disciplines: All Home Care 02/11/2022 Active - 1 problem intervention scheduled/document ed in this visit OCCUPATIONAL THERAPY GENERAL ORDER (O) Disciplines: Occupational Therapy Occupational Therapy General Order 02/24/2022 Active 1 goal linked to scheduled/document ed intervention 1 goal intervention scheduled/document ed in this visit OT COMPREHENSIVE Disciplines: Occupational Therapy 02/24/2022 Active 2 goals linked to scheduled/document ed interventions 2 goal interventions scheduled/document ed in this visit Goals Goal Associated Problem Outcome Goal Met? Visit Notes Occupational Therapy General Description: After assessing the patient and discussing the patient's goals the following were identified. Patient Centered Car Salter Goal: safely be able to shower on her own Target date: 03/18/22 OCCUPATIONAL THERAPY GENERAL ORDER (O) No OT Homemaking Description: Short Term Goal: Patient will simulate laundry at standing level with cane with independence and good understanding of safety/technique. To be met by 03/18/22 OT COMPREHENSIVE No OT Meal Prep Description: Short Term Goal: Patient will complete meal preparation at standing level with cane with HC OT ASSIST: independence and good understanding of safety/technique. To be met by 03/18/22. OT COMPREHENSIVE No Interventions Intervention Associated Problem/Goal Status Variance Visit Notes All HH Vital Sign Parameters (Order Only) Description: Standard [...] use of prescribed pain control measures. Problem:ALL HH VITAL SIGN PARAMETERS Completed OT Evaluation (Order Only) Description: 51 year old female inpatient 02/08/22-02/10/22 with hypoxia and acute respiratory failure. She was found to have Covid-19 and influenza A on 02/08/22. Patient was back in ED on 02/13/22 with headache, dizziness and cough. Past Medical History: Lumbar pars defect, GERD (gastroesophageal reflux disease), Hypertension, Hyperlipidemia [E78.5], Bipolar disorder, Depression, Hypothyroid, Sepsis, Enterocolitis, Abnormal CT scan, Cocaine use, SBO (small bowel obstruction), Morbid obesity with BMI of 45.0-49.9, adult Clinical findings: Pt. answered door with cane and was short of breath. She demo. mobility in her apartment with SBA. It was recommended to remove clutter from pathways due to fall risk. Pt. able to step in and out of tub with grab bars and seat with SBA. Occupational therapy for ADLs,bathroom transfers, IADLs, and energy conservation/safety recommendations Other contributing issues: no caregiver Perform pulse oximetry PRN for intermittent assessment and/ or respiratory distress. Patient and Evelio Kern MD are in agreement with plan of care. Perform pulse oximetry PRN for intermittent assessment and/ or respiratory distress. Problem:OCCUPATIONAL THERAPY GENERAL ORDER (O) Goal:Occupational Therapy General Completed OT Homemaking Description: Instruct on homemaking techniques and safety. Equipment as needed. Problem:OT COMPREHENSIVE Goal:OT Homemaking Completed Patient performed verbal walk through homemaking for laundry with cane with verbal cues and good activity tolerance. Caregiver training provided NA. Skill provided to improve this function consisted of Pt reports completing laundry task at her Mothers home with utilizing the following EC - sitting to fold laundry, use of laundry basket with wheels and use of laundry pods in place of heavy liquid bottles. Pt education on use of paper winder or long tongs to retrieve hard to reach laundry with good verbal understanding. Compliance of follow through is good. Progress toward goal: MET per Pt report OT Meal Prep Description: Instruct on meal prep techniques and safety. Equipment as needed. Problem:OT COMPREHENSIVE Goal:OT Meal Prep Completed Patient performed simulated/verbal walk through of meal prep with cane with verbal cues and good activity tolerance. Caregiver training provided NA. Skill provided to improve this function consisted of Pt completed verbal walk-through/simulat ed meal prep with focus on EC education. Pt verbalized EC currently used including sitting while meal is heating, sitting to assemble and/or prep meals such as chopping fruit/vegatables, use of pre-cut/pre-made meals. Pt education on meal prepping large amounts then storing/freezing in smaller portions for later consumption, scooting heavy containers across counter rather than carrying, and use of disposable containers and containers with lids to avoid risk of spills/clean up. Pt reports and displayed good understanding of EC and safety with meal prep task. Compliance of follow through is good. Progress toward goal: MET documented in this encounter Care Teams Client Advocate Relationship Specialty Start Date End Date Daja Kern MD [address] [place] [address] PCP - General Internal Medicine 03/13/15 documented as of this encounter
--- OUTSIDE RECORDS SUMMARY | 2024-03-03 19:27 | XMS_ITS | Encounter Summary ---
Author Organization [facility] Address [address] [place] [address] Phone Care Team Providers Care Manager Sustainability Name Role Phone Daja Kern MD Primary Care Provider Reason for Visit * Reason Comments Back Pain Leg Pain Encounter Details Date Type Department Care Team (Late st Contact Info) Description 04/29/2022 3:56 PM CRUSHER MACHINE OPERATOR - 04/29/2022 8:07 PM CRUSHER MACHINE OPERATOR Emergency [facility] Emergency [address] [place] [address] Sharri Harper, PAC [address] [place] [address] Lumbar degenerative disc disease Discharge Disposition: Discharged to home or Selfcare [...] suspected to have Coronavirus/COVID-19? No / Unsure 04/29/2022 3:51 PM CRUSHER MACHINE OPERATOR documented as of this encounter Last Filed Vital Signs Vital Sign Reading Time Taken Comments Blood Pressure 144/90 04/29/2022 3:52 PM CRUSHER MACHINE OPERATOR Pulse 80 04/29/2022 8:06 PM CRUSHER MACHINE OPERATOR Temperature 36.7 ??C (98 ??F) 04/29/2022 3:52 PM CRUSHER MACHINE OPERATOR Respiratory Rate 16 04/29/2022 8:06 PM CRUSHER MACHINE OPERATOR Oxygen Saturation 98% 04/29/2022 8:06 PM CRUSHER MACHINE OPERATOR Inhaled Oxygen Concentration - - Weight 120.2 kg (265 lb) 04/29/2022 3:52 PM CRUSHER MACHINE OPERATOR Height 157.5 cm (5' 2 ) 04/29/2022 3:52 PM CRUSHER MACHINE OPERATOR Body Mass Index 48.47 04/29/2022 3:52 PM CRUSHER MACHINE OPERATOR documented in this encounter Discharge Instructions * Discharge Instructions* Sharri Harper PAC - 04/29/2022 8:01 PM CRUSHER MACHINE OPERATOR Please follow up with your primary care provider. Return for reevaluation if your symptoms change or worsen. HER MACHINE OPERATOR * Attachments The following attachments cannot be sent through Care Everywhere. * Degenerative Disk Disease ([place]) documented in this encounter Medications at Time of Discharge DULoxetine (CYMBALTA) [address] Particles Take 90 mg by mouth daily. irbesartan (AVAPRO) 150 MG Tablet Take 300 mg by mouth daily. 02/11/2021 levothyroxine (SYNTHROID) 50 MCG TabletIndications: Hypothyroidism Take 50 mcg by mouth daily. Indications: Underactive Thyroid 06/18/2018 omeprazole (PriLOSEC) 40 MG CAPSULE DELAYED RELEASE Take 1 Capsule by mouth daily. 90 Capsule 06/02/2021 traZODone (DESYREL) 50 MG Tablet Take 100 mg by mouth nightly. albuterol 108 (90 Base) MCG/ACT Aerosol SolutionIndication s:Acute respiratory failure with hypoxia (HCC) take 2 Puffs by inhalation every 6 hours as needed for Wheezing or Cough. 6.7 g 02/10/2022 3 Aripiprazole 20 MG Tablet Take 20 mg by mouth daily. 3 baclofen (LIORESAL) 20 MG Tablet Take 20 mg by mouth 2 times daily as needed. 3 hydrOXYzine (ATARAX) 25 MG Tablet Take 25 mg by mouth 2 times daily as needed for Anxiety. Take 1 tablet by mouth twice daily as needed for anxiety 03/17/2022 3 methylPREDNISolone (MEDROL DOSPACK) 4 MG Tablet Therapy Pack See product package insert for dosing schedule 21 Tablet 04/29/2022 3 pregabalin (LYRICA) 75 MG Capsule Take 75 mg by mouth 2 times daily. 3 sertraline (ZOLOFT) 100 MG Tablet Take 150 mg by mouth daily. Take 100mg by mouth daily 3 sertraline (ZOLOFT) 50 MG Tablet Take 50 mg by mouth daily. 09/02/2021 3 traMADol (ULTRAM) 50 MG TabletIndications: Lumbar degenerative disc disease Take 1 Tablet by mouth every 8 hours as needed for Moderate or more severe pain. 15 Tablet 04/29/2022 3 documented as of this encounter ED Notes * Adeline Lozano RN - 04/29/2022 8:06 PM CST Patient discharged. Discharge instructions and patient educational material reviewed with patient; questions and concerns addressed; patient verbalizes understanding, using teach back. Patient was given 2 prescriptions. Patient discharged ambulatory with steady gait with cane to exit with no distress noted. HER MACHINE OPERATOR * Adeline Lozano RN - 04/29/2022 7:45 PM CST Patient resting in chair with no distress noted. Denies needs at this time. Call light within reach. Continue to monitor HER MACHINE OPERATOR * Sharri Harper PAC - 04/29/2022 7:12 PM CST Chief Complaint Patient presents with ??? Back Pain ??? 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 female who presents due to low back pain radiating to bilateral legswhich became worse in the past few days. She states that she has chronic low back pain and has beendiagnosed with degenerative disc disease. She denies any fall or injury. She denies any abdominal pain, dysuria, bowel/bladder dysfunction, vomiting, or a fever. She states she is able to ambulate but her bilateral lower extremities feel weaker than normal. She has taken tylenol without relief of symptoms. No current facility-administered medications for this encounter. Current Outpatient Medications Medication Sig Dispense Refill ??? albuterol 108 (90 Base) MCG/ACT Aerosol Solution take 2 Puffs by inhalation every 6 hours as needed for Wheezing or Cough. 6.7 g 0 ??? Aripiprazole 20 MG Tablet Take 20 mg by mouth daily. ??? baclofen (LIORESAL) 20 MG Tablet Take 20 mg by mouth 2 times daily as needed. ??? DULoxetine (CYMBALTA) [address] Particles Take 60 mg by mouth nightly. ??? hydrOXYzine (ATARAX) 25 MG Tablet Take 25 mg by mouth 2 times daily as needed for Anxiety. Take1 tablet by mouth twice daily as needed for anxiety ??? irbesartan (AVAPRO) 150 MG Tablet Take 150 mg by mouth daily. ??? levothyroxine (SYNTHROID) 50 MCG Tablet Take 50 mcg by mouth daily. Indications: Underactive Thyroid ??? methylPREDNISolone (MEDROL DOSPACK) 4 MG Tablet Therapy Pack See product package insert for dosing schedule 21 Tablet 0 ??? omeprazole (PriLOSEC) 40 MG CAPSULE DELAYED RELEASE Take 1 Capsule by mouth daily. 90 Capsule 0 ??? pregabalin (LYRICA) 75 MG Capsule Take 75 mg by mouth 2 times daily. ??? sertraline (ZOLOFT) 100 MG Tablet Take 150 mg by mouth daily. Take 100mg by mouth daily ??? sertraline (ZOLOFT) 50 MG Tablet Take 50 mg by mouth daily. ??? traMADol (ULTRAM) 50 MG Tablet Take 1 Tablet by mouth every 8 hours as needed for Moderate or more severe pain. 15 Tablet 0 ??? traZODone (DESYREL) 50 MG Tablet Take 100 mg by mouth nightly. Allergies Allergen Reactions ??? Geodon [Ziprasidone Hcl] Other (see Comments) Abnormal mouth movements ??? Risperdal [Risperidone] Other (see Comments) Violent and agitated. ??? Topamax [Topiramate] Other (see Comments) Difficulty with speech and word finding. ??? Sulfa Antibiotics Hives Past Medical History Positives Diagnosis Date ??? Adenomatous colon polyp ??? Anxiety ??? Bipolar disorder (HCC) ??? Cocaine abuse (HCC) ??? DDD (degenerative disc disease), lumbar back ??? Depression ??? GERD (gastroesophageal reflux disease) ??? HLD (hyperlipidemia) ??? HTN (hypertension) ??? Hypothyroid ??? IBS (irritable bowel syndrome) C/D ??? Morbid obesity (HCC) ??? NAFLD (nonalcoholic fatty liver disease) ??? Nephrocalcinosis ??? KWABENA (obstructive sleep apnea) does not use cpap ??? SBO (small bowel obstruction) (HCC) 09/2018 ??? Vitamin D deficiency Past Surgical History: Procedure Laterality Date ??? SECTION 1994 ??? CHOLECYSTECTOMY 2005 laparoscopic ??? COLONOSCOPY [facility] (Does not remember the ) ??? COLONOSCOPY N/A 11/16/2018 Procedure: COLONOSCOPY - POLYPS, BIOPSIES; Surgeon: Damian Gallardo DO; Location: [facility]; Service: Gastroenterology ??? EGD 2012? [facility] ??? UPPER GASTROINTESTINAL ENDOSCOPY N/A 02/06/2019 Procedure: EGD, SMALL BOWEL BIOSY, GASTRIC POLYP, SAMANTHA TEST; Surgeon: Damian Gallardo DO; Location: [facility]; Service: Gastroenterology ??? WISDOM TOOTH EXTRACTION 1991 4 wisdom teeth removed. Social History Socioeconomic History ??? Marital status: Spouse name: Not on file ??? Number of children: Not on file ??? Years of education: Not on file ??? Highest education level: Not on file Occupational History ??? Not on file Tobacco Use ??? Smoking status: Never ??? Smokeless tobacco: Never Vaping Use ??? Vaping Use: Never used Substance and Sexual Activity ??? Alcohol use: No ??? Drug use: Yes Types: Cocaine ??? Sexual activity: Yes Partners: Male control/protection: None Other Topics Concern ??? Not on file Social History Narrative ??? Not on file BP 144/90 Pulse 80 Temp 98 ??F (36.7 ??C) (Tympanic) Resp 16 Ht 5' 2 (1.575 m) Wt 265 lb(120.2 kg) LMP 11/12/2019 SpO2 98% BMI 48.47 kg/m?? Review of Systems Constitutional: Negative for chills and fever. HENT: Negative for congestion, ear pain, rhinorrhea and sore throat. Eyes: Negative for discharge. Respiratory: Negative for cough, chest tightness, shortness of breath and wheezing. Cardiovascular: Negative for chest pain and palpitations. Gastrointestinal: Negative for abdominal pain, diarrhea, nausea and vomiting. Genitourinary: Negative for difficulty urinating and menstrual problem. Musculoskeletal: Positive for back pain. Negative for arthralgias and myalgias. Skin: Negative for rash and wound. Neurological: Negative for dizziness, syncope and headaches. All other systems reviewed and are [...] is no guarding or rebound. Musculoskeletal: General: Tenderness (to lumbar spine. No LE weakness. DP pulses intact. No LE edema. ) present. Normal range of motion. Cervical back: Normal range of motion. Skin: General: Skin is warm and dry. Neurological: Mental Status: She is alert and oriented to person, place, and time. Cranial Nerves: No cranial nerve deficit. Labs Reviewed - No data to display XR LUMBAR SPINE 2 OR 3 VIEWS Final Result IMPRESSION: Severe degenerative change at L5-S1 with grade 1/borderline grade 2 anterolisthesis of L5 on S1. Pars defects at L5. No significant change. Procedures Imaging Results XR LUMBAR SPINE 2 OR 3 VIEWS (Final result) Result time 04/29/22 19:50:27 Final result by Marlon Senior MD (04/29/22 19:50:27) Impression: IMPRESSION: Severe degenerative change at L5-S1 with grade 1/borderline grade 2 anterolisthesis of L5 on S1. Pars defects at L5. No significant change. Narrative: EXAM DESCRIPTION: XR LUMBAR SPINE 2 OR 3 VIEWS REASON FOR STUDY: low back pain radiates into legsx 1 wk on injury or surgery TECHNIQUE: 3 radiographic views acquired of the lumbar spine. COMPARISON: 09/03/2021 FINDINGS: SEGMENTATION: Normal. No transitional anatomy. ALIGNMENT: Grade 1 borderline grade 2 anterolisthesis of L5 on S1 stable. VERTEBRAE: Pars defects at L5. No acute fracture. Facet arthropathy worse at L5-S1 and L4-L5. DISCS: Severe degenerative disc space narrowing at L5-S1. OTHER: Cholecystectomy clips. THIS IS AN ELECTRONICALLY VERIFIED FINAL REPORT 04/29/2022 7:47 PM - Electronically signed by Marlon Senior M.D. RW: GABINO Report ID: [id number] Reading Location: [id number] Labs Reviewed - No data to display MDM Coding Clinical Impression 1. Lumbar degenerative disc disease Patient was given hydrocodone while in the ED and was discharged home with a medrol dose thomas and small quantity of tramadol. Encouraged close f/u with his pmd and to return for reevaluation if sx change or worsen. Patient expressed understanding and agreement to the tx plan. Cosigned by Jhon Smith MD at 05/23/2022 5:48 AM CDT * Adeline Lozano RN - 04/29/2022 6:53 PM CST Pt medicated per provider orders. Pt educated on intended effects and side effects of medication and verbalized understanding, able to provide teach back of education. HER MACHINE OPERATOR * Adeline Lozano RN - 04/29/2022 6:40 PM CST Patient is resting in room with call light at bedside. Patient informed about wait time and verbalizes understanding. Patient denies needs at this time and verbalizes understanding that RN will complete hourly rounding. HER MACHINE OPERATOR * Lisandro Cardoza RN - 04/29/2022 3:55 PM CST Pt to triage with c/o bilateral leg pain and difficulty walking. PT states hx of DDD and that is what she believes is making it more difficult to walk. Takes OTC and prescribed medications with no relief. Denies any other sx at this time. HER MACHINE OPERATOR documented in this encounter Plan of Treatment Upcoming Encounters Date Type Department Care Team (Late st Contact Info) Description 03/27/2024 8:30 AM CRUSHER MACHINE OPERATOR [facility] [address] [place] [address] Burt Eastman MD [address] [address] 03/27/2024 8:30 AM CRUSHER MACHINE OPERATOR - 03/27/2024 9:00 AM CRUSHER MACHINE OPERATOR [facility] [address] [place] [address] Burt Eastman MD [address] [address] COLONOSCOPY 04/09/2024 1:15 PM CRUSHER MACHINE OPERATOR [facility] - [place] [address] [place] [address] Baron Vergara MD [address] [place] [address] Scheduled Procedures Name Priority Associated Diagnoses Date/Ti me COLONOSCOPY HISTORY OF COLON POLYPS 03/27/2024 8:30 AM CRUSHER MACHINE OPERATOR documented as of this encounter Procedures Procedure Name Priority Date/Time Associated Diagnosis Comments XR LUMBAR SPINE 2 OR 3 VIEWS STAT 04/29/2022 7:04 PM CRUSHER MACHINE OPERATOR documented in this encounter Results * XR LUMBAR SPINE 2 OR 3 VIEWS (04/29/2022 7:04 PM CRUSHER MACHINE OPERATOR) Anatomical Region Laterality Modality Spine, L-spine N/A Digital Radiogra phy 04/29/2022 7:47 PM CRUSHER MACHINE OPERATOR Impressions 04/29/2022 7:50 PM CRUSHER MACHINE OPERATOR IMPRESSION: ?? Severe degenerative change at L5-S1 with grade 1/borderline grade 2 anterolisthesis of L5 on S1. ??Pars defects at L5. ??No significant change. Narrative 04/29/2022 7:50 PM CRUSHER MACHINE OPERATOR EXAM DESCRIPTION: ?? XR LUMBAR SPINE 2 OR 3 VIEWS REASON FOR STUDY: ?? low back pain radiates into legsx 1 wk on injury or surgery ?? TECHNIQUE: ?? 3 ??radiographic views acquired of the lumbar spine. COMPARISON: 09/03/2021 FINDINGS: SEGMENTATION: ?? Normal. ??No transitional anatomy. ALIGNMENT: ?? Grade 1 borderline grade 2 anterolisthesis of L5 on S1 stable. VERTEBRAE: ?? Pars defects at L5. ??No acute fracture. ?Facet arthropathy worse at L5-S1 and L4-L5. DISCS: ?? Severe degenerative disc space narrowing at L5-S1. OTHER: ?? Cholecystectomy clips. THIS IS AN ELECTRONICALLY VERIFIED FINAL REPORT 04/29/2022 7:47 PM - Electronically signed by ??Marlon Senior M.D. RW: GABINO D: ??04/29/2022 7:47 PM T: ??04/29/2022 7:47 PM Report ID: [id number] Reading Location: ??[id number] Procedure Note Marlon Senior MD - 04/29/2022 EXAM DESCRIPTION: XR LUMBAR SPINE 2 OR 3 VIEWS REASON FOR STUDY: low back pain radiates into legsx 1 wk on injury or surgery TECHNIQUE: 3 radiographic views acquired of the lumbar spine. COMPARISON: 09/03/2021 FINDINGS: SEGMENTATION: Normal. No transitional anatomy. ALIGNMENT: Grade 1 borderline grade 2 anterolisthesis of L5 on S1 stable. VERTEBRAE: Pars defects at L5. No acute fracture. Facet arthropathy worse at L5-S1 and L4-L5. DISCS: Severe degenerative disc space narrowing at L5-S1. OTHER: Cholecystectomy clips. THIS IS AN ELECTRONICALLY VERIFIED FINAL REPORT 04/29/2022 7:47 PM - Electronically signed by Marlon Senior M.D. RW: GABINO Report ID: [id number] Reading Location: [id number] IMPRESSION: Severe degenerative change at L5-S1 with grade 1/borderline grade 2 anterolisthesis of L5 on S1. Pars defects at L5. No significant change. Sharri Oliver Page PAC IMG DIAGNOSTIC ORDERABLES Fi nal Result documented in this encounter Visit Diagnoses Diagnosis Lumbar degenerative disc disease- Primary Degeneration of lumbar or lumbosacral intervertebral disc documented in this encounter Administered Medications Inactive Administered Medications - up to 3 most recent administrations Medication Order MAR Action Action Date Dose Rate Site HYDROcodone-acetaminophen (NORCO) 5-325 MG per tablet 1 Tablet 1 Tablet, Oral, ONCE, 1 dose, On Mon04/29/22 at 1900, Maximum dose of acetaminophen is 4000 mg from all sources in 24 hours.If pain not effectively managed, then contact provider to discuss possibly 1) adding scheduled opioid dosing or non-opioid pain treatments, 2) increasing dosage, or 3) changing to CARPENTERS. Given 04/29/2022 6:52 PM CRUSHER MACHINE OPERATOR 1 Tablet documented in this encounter Active and Recently Administered Medications Times are shown in CRUSHER MACHINE OPERATOR. Scheduled Medication Order 04/27/2022 04/28/2022 04/29/2022 HYDROcodone-acetaminophen (NORCO) 5-325 MG per tablet 1 Tablet (COMPLETED) 1 Tablet, Oral, ONCE, 1 dose, On Mon04/29/22 at 1900, Maximum dose of acetaminophen is 4000 mg from all sources in 24 hours.If pain not effectively managed, then contact provider to discuss possibly 1) adding scheduled opioid dosing or non-opioid pain treatments, 2) increasing dosage, or 3) changing to CARPENTERS. 1851 (Given - Provid er: Adeline Lozano RN) documented in this encounter Care Teams Manager Sustainability Relationship Specialty Start Date End Date Daja Kern MD [address] [place] [address] PCP - General Internal Medicine 03/13/15 documented as of this encounter
--- OUTSIDE RECORDS SUMMARY | 2024-03-03 19:27 | XMS_ITS | Encounter Summary ---
Author Organization [facility] Artify It [facility] Care Team Providers Care Np Name Role Phone Daja Kern MD Primary Care Provider [phone] Encounter Details Date Type Department Care Team (Latest Contact Info) Description 10/02/2022 Travel Social History Tobacco Use Types Packs/Day [...] suspected to have Coronavirus/COVID-19? No / Unsure 10/02/2022 8:21 PM CDT documented as of this encounter Plan of Treatment Upcoming Encounters Date Type Department Care Team (Late st Contact Info) Description 03/27/2024 8:30 AM SR. OPERATIONS MANAGER [facility] [address] [place] [id number] Burt Eastman MD 2 [facility] [place] [address] [address] 03/27/2024 8:30 AM SR. OPERATIONS MANAGER - 03/27/2024 9:00 AM SR. OPERATIONS MANAGER [facility] [address] [place] [address] Burt Eastman MD [address] [address] COLONOSCOPY 04/09/2024 1:15 PM SR. OPERATIONS MANAGER [facility] #2 [place] [address] Baron Vergara MD #2 [place] [address] Scheduled Procedures Name Priority Associated Diagnoses Date/Ti me COLONOSCOPY HISTORY OF COLON POLYPS 03/27/2024 8:30 AM SR. OPERATIONS MANAGER documented as of this encounter Visit Diagnoses Not on filedocumented in this encounter Care Teams Np Relationship Specialty Start Date End Date Daja Kern MD [address] [place] [address] PCP - General Internal Medicine 03/13/15 documented as of this encounter
--- OUTSIDE RECORDS SUMMARY | 2024-03-03 19:27 | XMS_ITS | Encounter Summary ---
Author Organization [facility] Insiders [facility] Care Team Providers Care Drug Clerk Name Role Phone Daja Kern MD Primary Care Provider [phone] Encounter Details Date Type Department Care Team (Latest Contact Info) Description 02/24/2022 Travel Social History Tobacco Use Types Packs/Day [...] Coronavirus/COVID-19? No / Unsure 02/24/2022 12:13 PM SIGNALS ANALYST documented as of this encounter Plan of Treatment Upcoming Encounters Date Type Department Care Team (Late st Contact Info) Description 03/27/2024 8:30 AM SIGNALS ANALYST [facility] [address] [place] [address] Burt Eastman MD 2 [facility] [address] [address] 03/27/2024 8:30 AM SIGNALS ANALYST - 03/27/2024 9:00 AM SIGNALS ANALYST Surgery [facility] Lab Periop [address] [place] [address] Burt Eastman MD 2 [facility] [address] [address] COLONOSCOPY 04/09/2024 1:15 PM SIGNALS ANALYST [facility] [address]2 [place] [address] Baron Vergara MD #2 [place] [address] Scheduled Procedures Name Priority Associated Diagnoses Date/Ti me COLONOSCOPY HISTORY OF COLON POLYPS 03/27/2024 8:30 AM SIGNALS ANALYST documented as of this encounter Visit Diagnoses Not on filedocumented in this encounter Additional Health Concerns Infection Onset Date Last Indicated Resolved Time Respiratory Rule-Out 02/08/2022 02/08/2022 023 12:16 AM SIGNALS ANALYST COVID - 19 Confirmed 02/08/2022 02/08/2022 023 12:16 AM SIGNALS ANALYST documented as of this encounter Care Teams Drug Clerk Relationship Specialty Start Date End Date Daja Kern MD [address] [place] [address] PCP - General Internal Medicine 03/13/15 documented as of this encounter
--- OUTSIDE RECORDS SUMMARY | 2024-03-03 19:27 | XMS_ITS | Encounter Summary ---
Author Organization [facility] [employer] [facility] Care Team Providers Care Under Trimmer Name Role Phone Daja Kern MD Primary Care Provider [phone] Encounter Details Date Type Department Care Team (Latest Contact Info) Description 01/07/2023 Travel Social History Tobacco Use Types Packs/Day [...] suspected to have Coronavirus/COVID-19? No / Unsure 01/02/2023 1:06 PM RADIOLOGY TECHNOLOGIST documented as of this encounter Plan of Treatment Upcoming Encounters Date Type Department Care Team (Late st Contact Info) Description 03/27/2024 8:30 AM RADIOLOGY TECHNOLOGIST [facility] [address] [place] [address] Burt Eastman MD [address] [address] 03/27/2024 8:30 AM RADIOLOGY TECHNOLOGIST - 03/27/2024 9:00 AM RADIOLOGY TECHNOLOGIST [facility] [address] [place] [address] Burt Eastman MD [address] [address] COLONOSCOPY 04/09/2024 1:15 PM RADIOLOGY TECHNOLOGIST [facility] #2 [place] [address] Baron Vergara MD #2 [place] [address] Scheduled Procedures Name Priority Associated Diagnoses Date/Ti me COLONOSCOPY HISTORY OF COLON POLYPS 03/27/2024 8:30 AM RADIOLOGY TECHNOLOGIST documented as of this encounter Visit Diagnoses Not on filedocumented in this encounter Care Teams Under Trimmer Relationship Specialty Start Date End Date Daja Kern MD [address] [place] [address] PCP - General Internal Medicine 03/13/15 documented as of this encounter
--- OUTSIDE RECORDS SUMMARY | 2024-03-03 19:27 | XMS_ITS | Encounter Summary ---
Author Organization [facility] Address [address] [place] [address] Phone Care Team Providers Care Social Media Marketing Manager Name Role Phone Daja Kern MD Primary Care Provider [phone] Reason for Visit * Auth/Cert (Routine) Specialty Diagnoses / Procedures Referred By Contac t Referred To Contact Referral ID Status Reason Start Date Expiration Date Visits Re quested Visits Authorized 1 1 Encounter Details Date Type Department Care Team (Late st Contact Info) Description 02/23/2022 9:00 AM COMPUTER TRAINER [facility] [address] [place] [address] Tami Healy, HVAC MECHANICAL ENGINEER PT - HOME VISIT Social History Tobacco Use [...] suspected to have Coronavirus/COVID-19? No / Unsure 02/23/2022 10:03 AM COMPUTER TRAINER documented as of this encounter Last Filed Vital Signs Vital Sign Reading Time Taken Comments Blood Pressure 160/90 02/23/2022 9:17 AM COMPUTER TRAINER Pulse 93 02/23/2022 9:17 AM COMPUTER TRAINER Temperature 36.3 ??C (97.4 ??F) 02/23/2022 9:17 AM CS T Respiratory Rate 20 02/23/2022 9:17 AM COMPUTER TRAINER Oxygen Saturation 96% 02/23/2022 9:17 AM COMPUTER TRAINER Inhaled Oxygen Concentration - - Weight - - Height - - Body Mass Index - - documented in this encounter Plan of Treatment Upcoming Encounters Date Type Department Care Team (Late st Contact Info) Description 03/27/2024 8:30 AM COMPUTER TRAINER [facility] 1 [place] [address] Burt Eastman MD [address] [address] 03/27/2024 8:30 AM COMPUTER TRAINER - 03/27/2024 9:00 AM COMPUTER TRAINER [facility] 1 [place] [address] Burt Eastman MD [address] [address] COLONOSCOPY 04/09/2024 1:15 PM COMPUTER TRAINER Office Visit [facility] - Pulmonology & Sleep Medicine [facility] #2 [place] [address] Baron Vergara MD #2 [place] [address] Scheduled Procedures Name Priority Associated Diagnoses Date/Ti me COLONOSCOPY HISTORY OF COLON POLYPS 03/27/2024 8:30 AM COMPUTER TRAINER documented as of this encounter Visit Diagnoses Not on filedocumented in this encounter Additional Health Concerns Infection Onset Date Last Indicated Resolved Time Respiratory Rule-Out 02/08/2022 02/08/2022 023 12:16 AM COMPUTER TRAINER COVID - 19 Confirmed 02/08/2022 02/08/2022 023 12:16 AM COMPUTER TRAINER documented as of this encounter Home Health Visit - Care Plan Visit Details Visit Type -PT - HOME VISIT Discipline -Physical Therapy Problems Problem Description Start Date Status Goals Interve ntions [facility] COVID-19 Disciplines: SN, PT, OT, SENIOR ACCOUNTING ANALYST, SUGAR LABORATORY ASSISTANT, RT 02/11/2022 Active 1 goal linked to scheduled/document ed intervention 1 goal intervention scheduled/documen arnulfo in this visit THERAPY DISEASE MANAGEMENT (O) Disciplines: Physical Therapy 02/15/2022 Active - 1 problem intervention scheduled/documen arnulfo in this visit PHYSICAL THERAPY EVALUATION (O) Disciplines: Physical Therapy PT Evaluation 02/15/2022 Active 1 goal linked to scheduled/document ed intervention 1 goal intervention scheduled/documen arnulfo in this visit PT COMPREHENSIVE Disciplines: Physical Therapy 02/15/2022 Active 4 goals linked to scheduled/document ed interventions 4 goal interventions scheduled/documen arnulfo in this visit Goals Goal Associated Problem Outcome Goal Met? Visit Notes COVID-19 Description: Patient/caregivers will verbalize understanding of COVID-19 and symptoms to report and home management strategies by date 02/26/22 [facility] COVID-19 No Physical Therapy Evaluation Description: After assessing the patient and discussing the patient's goals the following were identified: Patient centered detention goal: walk longer distances with appropriate vital sign response. Target Date: within 3 weeks PHYSICAL THERAPY EVALUATION (O) No PT Balance Description: Short Term Goal: Patient will show improved dynamic standing balance as demonstrated by improved Tinetti score from not tested28 to 19 in order to lower risk for falls. To be met by 03/05/22. PT COMPREHENSIVE Ongoing (see interventions/not es) No PT Bed Mobility Description: Short Term Goal Patient will be independent with supine to sit, sit to supine and repositioning in order to increase independence with functional mobility. To be met by 03/05/22. PT COMPREHENSIVE No PT Ambulation Description: Short Term Goal: Patient will ambulate Independently 200 feet with use of Straight cane, over even surfaces and uneven surfaces with the following improved gait characteristics good posture, appropriate vital signs following in order to safely navigate her apartement complex. To be met by 03/05/22. PT COMPREHENSIVE Therapy: Goal partially met No x 1 trial met PT Transfers Description: Short Term Goal: Patient will perform sit to stand/pivot transfers independently with use of device as needed ; in order to safely negotiate home. To be met by 03/05/22. PT COMPREHENSIVE No Interventions Intervention Associated Problem/Goal Status Variance Visit Notes COVID-19 Evaluation/Education Description: Perform COVID-19 monitoring and education including symptoms to report, social distancing, aerosolizing procedures, and COVID-19 precautions. Problem:/[facility] COVID-19 Goal:COVID-19 Completed Is patient experiencing any new or worsening COVID-19 symptoms? No COVID-19 education provided: Report new or worsening symptoms: Fever 100.4F/38C or above, cough, shortness of breath Instruction provided to Patient. Response verbalize understanding Therapy Depression (O) Description: Assess and monitor for signs and symptoms of depression. Problem:THERAPY DISEASE MANAGEMENT (O) Completed Patient shows signs of depression yes Symptoms reported to physician no Dr aware or situation Physical Therapy General (Order Only) Description: Clinical findings: 51 year old female inpatient 02/08/22-02/10/22 with hypoxia and acute respiratory failure. She was found to have Covid-19 and influenza A on 02/08/22. Patient was back in ED on 02/13/22 with headache, dizziness and cough. Patient answers the door to [facility] walking with cane CGA. She ambulates 100 feet unsteady reaching for cotto. Patient is short of breath at rest and increased with activity. Patient has blood pressure reading of 183/106 and 154/110 and patient reports headache, ringing in ears and sweating. Called Dr. Kern and reported BP reading and symptoms and Dr. Kern's nurse recommended she go to ED. Phoned emergency services and awaited their arrival. Patient was transported by ambulance to ED. Patient to benefit from PT for strengthening, endurance, safety with gait and transfers once medically stable. Past Medical History: Lumbar pars defect, GERD (gastroesophageal reflux disease), Hypertension, Hyperlipidemia [E78.5], Bipolar disorder, Depression, Hypothyroid, Sepsis, Enterocolitis, Abnormal CT scan, Cocaine use, SBO (small bowel obstruction), Morbid obesity with BMI of 45.0-49.9, adult Therapy Focus: strengthening, transfers, walking safety and balance Other contributing issues: no caregiver Perform pulse oximetry PRN for intermittent assessment and/ or respiratory distress. Problem:PHYSICAL THERAPY EVALUATION (O) Goal:Physical Therapy Evaluation Completed PT Balance Description: Provide balance training for safety and reduced fall risk. Problem:PT COMPREHENSIVE Goal:PT Balance Completed Balance training provided this date Static standing feet together/eyes closed, tandem stance and single leg standing holding each position for 15-30 seconds as tolerated. Level of support required for safety with stand by assist. Special Test performed this date unsupported standing balance 180 seconds. Skill provided Initial instruction in technique, reps, and frequency to perform . Patient had most difficulty with single leg stance with only 3 seconds demonstrated on both legs Instruction provided to Patient. Written instruction to practice single leg standing at sink or near back of chair for safety. Response verbalize understanding. Progress toward goal: intiated balance exercises PT Bed Mobility Description: Instruct on bed mobility techniques and safety. Equipment as needed. Problem:PT COMPREHENSIVE Goal:PT Bed Mobility Completed Bed mobility training consisting of: education of need for bed rail to assist with sit><supine. Assistance required: be independent With use of No assistive device. Skills provided: Verbal cues consisting of may consider bed rail to assist transfers as patient reports she has trouble at times getting up Tolerance to activity: verbally reviewed today not physically performed Instruction provided to Patient. Response verbalize understanding. Progress toward goal: ongoing PT Ambulation Description: Provide gait training for increased safety and efficiency. Progress per patient tolerance and safety. Problem:PT COMPREHENSIVE Goal:PT Ambulation Completed Patient ambulated With supervision 200 feet with use of Straight cane. WBAT Bilateral lower extremity over even surfaces with the following gait characteristics moderate pacing, step thru pattern, O2 sats dropped to 92% from 97% at rest. HR increased from 90-114. DEMARCUS 7/10 . Skills provided: Verbal cues consisting of breath into nose while walking. . Tolerance to activity Modified Demarcus Rating 7/10. Instruction provided to Patient. Use straight cane when legs feel weak or unsteady Response verbalize understanding and return demonstration. Progress toward goal: goal met x 1 PT Transfers Description: Instruct in proper safety and transfer technique. Problem:PT COMPREHENSIVE Goal:PT Transfers Completed Transfer training provided this date Sit to/from stand . Level of support required for safety independently. Assistive devices used: Cane Skill provided Proper hand placement and Safety instructions raised cane on notch to improve stability Tolerance to activity fair Instruction provided to Patient. Response verbalize understanding and return demonstration. Progress toward goal: ongoing but mostly met from functional levels in home toliet and chair levels documented in this encounter Care Teams Social Media Marketing Manager Relationship Specialty Start Date End Date Daja Kern MD [address] [place] [address] PCP - General Internal Medicine 03/13/15 documented as of this encounter
--- OUTSIDE RECORDS SUMMARY | 2024-03-03 19:27 | XMS_ITS | Encounter Summary ---
Author Organization [facility] Address [address] [place] [address] Phone Care Team Providers Care Solder Sprayer Name Role Phone Daja Kern MD Primary Care Provider [phone] Reason for Referral * Radiology Services (Routine) - Closed Specialty Diagnoses / Procedures Referred By Contac t Referred To Contact Radiology Diagnoses Abdominal pain, right upper quadrant Procedures US ABDOMEN LIMITED LEVEL 3 THREE ORGAN Daja Kern MD [address] [place] [address] Phone: tel: fax: Referral ID Status Reason Start Date Expiration Date Visits Re quested Visits Authorized [id number] Closed 04/18/2022 1 1 PERSON Reason for Visit * Radiology Services (Routine) - Closed Specialty Diagnoses / Procedures Referred By Contac t Referred To Contact Radiology Diagnoses Abdominal pain, right upper quadrant Procedures US ABDOMEN LIMITED LEVEL 3 THREE ORGAN Daja Kern MD [address] [place] [address] Phone: tel: fax: Referral ID Status Reason Start Date Expiration Date Visits Re quested Visits Authorized [id number] Closed 04/18/2022 1 1 Encounter Details Date Type Department Care Team (Latest Contact Info) Description 05/02/2022 10:04 AM BELLPERSON - 05/02/2022 11:59 PM BELLPERSON Hospital Encounter [facility] Ultrasound 1 [facility] [place] [address] Daja Kern MD [address] [place] [address] Discharge Disposition: Discharged to home or Selfcare [...] Coronavirus/COVID-19? No / Unsure 05/02/2022 9:59 AM BELLPERSON documented as of this encounter Medications at [...] 04/29/2022 3 documented as of this encounter Plan of Treatment Upcoming Encounters Date Type Department Care Team (Late st Contact Info) Description 03/27/2024 8:30 AM BELLPERSON [facility] [address] [place] [address] Burt Eastman MD [address] [address] 03/27/2024 8:30 AM BELLPERSON - 03/27/2024 9:00 AM BELLPERSON [facility] [address] [place] [address] Burt Eastman MD [address] [address] COLONOSCOPY 04/09/2024 1:15 PM BELLPERSON Office Visit [facility] - Pulmonology & Sleep Medicine - [place] [address] [place] [address] Baron Vergara MD #2 [facility] [place] [place] [address] Scheduled Procedures Name Priority Associated Diagnoses Date/Ti me COLONOSCOPY HISTORY OF COLON POLYPS 03/27/2024 8:30 AM BELLPERSON documented as of this encounter Procedures Procedure Name Priority Date/Time Associated Diagnosis Comments US ABDOMEN LIMITED LEVEL 3 THREE ORGAN Routine 05/02/2022 10:32 AM BELLPERSON Abdominal pain, right upper quadrant documented in this encounter Results * US ABDOMEN LIMITED LEVEL 3 THREE ORGAN (05/02/2022 10:32 AM BELLPERSON) Anatomical Region Laterality Modality Abdomen N/A Ultrasound 05/02/2022 6:34 PM BELLPERSON Impressions 05/02/2022 6:37 PM BELLPERSON IMPRESSION: ?? 1. ?? Mild hepatomegaly and mild hepatic steatosis. Narrative 05/02/2022 6:37 PM BELLPERSON EXAM DESCRIPTION: ?? US ABDOMEN LIMITED LEVEL 3 THREE ORGAN REASON FOR STUDY: ?? Right upper quadrant pain for 1 year. TECHNIQUE: Ultrasound of the right upper quadrant of the abdomen was performed with grayscale and color doppler. COMPARISON: ?? CT dated 09/07/2021. FINDINGS: PANCREAS: ?? The pancreas is mostly obscured by overlying bowel gas, limiting evaluation. ??Visualized portions of the pancreatic head are unremarkable. LIVER: ?? The liver is mildly enlarged, and the parenchymal echogenicity is increased, suggesting mild steatosis. ??There is a 9 mm cyst in the right hepatic lobe. ??No solid liver masses identified on the provided images. ??The portal veins have normal antegrade flow. GALLBLADDER: ?? Surgically absent. ?? BILIARY: No intrahepatic ductal dilatation is noted. ??The common bile duct is not well seen, but appears to measure approximally 5 mm. RIGHT KIDNEY: ?? Normal size. Normal echogenicity. No solid mass or cyst. ??No hydronephrosis. ??Measures ??10.7 ??cm in length. OTHER: ?? No other significant findings. THIS IS AN ELECTRONICALLY VERIFIED FINAL REPORT 05/02/2022 6:34 PM - Electronically signed by ??Gallo Vazquez M.D. RL: RL D: ??05/02/2022 6:34 PM T: ??05/02/2022 6:34 PM Report ID: [id number] Reading Location: ??[id number] Procedure Note Gallo Vazquez MD - 05/02/2022 EXAM DESCRIPTION: US ABDOMEN LIMITED LEVEL 3 THREE ORGAN REASON FOR STUDY: Right upper quadrant pain for 1 year. TECHNIQUE: Ultrasound of the right upper quadrant of the abdomen was performed with grayscale and color doppler. COMPARISON: CT dated 09/07/2021. FINDINGS: PANCREAS: The pancreas is mostly obscured by overlying bowel gas, limiting evaluation. Visualized portions of the pancreatic head are unremarkable. LIVER: The liver is mildly enlarged, and the parenchymal echogenicity is increased, suggesting mild steatosis. There is a 9 mm cyst in the right hepatic lobe. No solid liver masses identified on the provided images. The portal veins have normal antegrade flow. GALLBLADDER: Surgically absent. BILIARY: No intrahepatic ductal dilatation is noted. The common bile duct is not well seen, but appears to measure approximally 5 mm. RIGHT KIDNEY: Normal size. Normal echogenicity. No solid mass or cyst. No hydronephrosis. Measures 10.7 cm in length. OTHER: No other significant findings. THIS IS AN ELECTRONICALLY VERIFIED FINAL REPORT 05/02/2022 6:34 PM - Electronically signed by Gallo Vazquez M.D. RL: RL Report ID: [id number] Reading Location: [id number] IMPRESSION: 1. Mild hepatomegaly and mild hepatic steatosis. us Daja Kern MD IMG US ORDERABLES Final Resul t documented in this encounter Visit Diagnoses Diagnosis Abdominal pain, right upper quadrant documented in this encounter Care Teams Solder Sprayer Relationship Specialty Start Date End Date Daja Kern MD [address] [place] [address] PCP - General Internal Medicine 03/13/15 documented as of this encounter
--- OUTSIDE RECORDS SUMMARY | 2024-03-03 19:27 | XMS_ITS | Encounter Summary ---
Author Organization [facility] Address [address] [place] [address] Phone Care Team Providers Care Freight Breaker Name Role Phone Daja Kern MD Primary Care Provider [phone] Reason for Visit * Auth/Cert (Routine) Specialty Diagnoses / Procedures Referred By Contac t Referred To Contact Referral ID Status Reason Start Date Expiration Date Visits Re quested Visits Authorized [id number] 1 1 Encounter Details Date Type Department Care Team (Latest Contact Info) Description 02/23/2022 9:30 AM MOTEL FRONT DESK CLERK [facility] [address] [place] [address] Ginette Joy, TIRE SHOP MANAGER MS TIRE SHOP MANAGER - INITIAL EVALUATION Social History Tobacco Use Types Packs/Day Years [...] Coronavirus/COVID-19? No / Unsure 02/23/2022 10:03 AM MOTEL FRONT DESK CLERK documented as of this encounter Miscellaneous Notes * Home Health - Ginette Joy TIRE SHOP MANAGER - 02/23/2022 9:36 AM CST Care summary for TIRE SHOP MANAGER. Summary of care 1) completed initial evaluation and needs assessment 2) electronic submission of DORS DZZOMmaker application 3) POA HC completed and scanned into medical record 4) provided education regarding [employer]omin transportation benefit. SMART goal Alona will have access to in-home help. Plan for next visit follow-up on DORS homemaker application status. Plan of care updates completed and provided to patient/caregiver: No, no updates today L FRONT DESK CLERK documented in this encounter Plan of Treatment Upcoming Encounters Date Type Department Care Team (Late st Contact Info) Description 03/27/2024 8:30 AM MOTEL FRONT DESK CLERK [facility] [address] [place] [address] Burt Eastman MD [address] [address] 03/27/2024 8:30 AM MOTEL FRONT DESK CLERK - 03/27/2024 9:00 AM MOTEL FRONT DESK CLERK [facility] [address] [place] [address] Burt Eastman MD [address] [address] COLONOSCOPY 04/09/2024 1:15 PM MOTEL FRONT DESK CLERK [facility] - [place] [address] [place] [address] Baron Vergara MD [address] [place] [id number] Scheduled Procedures Name Priority Associated Diagnoses Date/Ti me COLONOSCOPY HISTORY OF COLON POLYPS 03/27/2024 8:30 AM MOTEL FRONT DESK CLERK documented as of this encounter Visit Diagnoses Not on filedocumented in this encounter Additional Health Concerns Infection Onset Date Last Indicated Resolved Time Respiratory Rule-Out 02/08/2022 02/08/2022 023 12:16 AM MOTEL FRONT DESK CLERK COVID - 19 Confirmed 02/08/2022 02/08/2022 023 12:16 AM MOTEL FRONT DESK CLERK documented as of this encounter Home Health Visit - Care Plan Visit Details Visit Type -TIRE SHOP MANAGER - INITIAL EV ALUATION Discipline -Medical Social Work Problems Problem Description Start Date Status Goals Interve ntions /[facility] COVID-19 Disciplines: SN, PT, OT, HYDRAULIC TESTER, TIRE SHOP MANAGER, RT 02/11/2022 Active 1 goal linked to scheduled/documente d intervention 1 goal intervention scheduled/documente d in this visit TIRE SHOP MANAGER Disciplines: Disability Aide TIRE SHOP MANAGER 02/23/2022 Active 1 goal linked to scheduled/documente d intervention 4 goal interventions scheduled/documente d in this visit Goals Goal Associated Problem Outcome Goal Met? Visit Notes COVID-19 Description: Patient/caregivers will verbalize understanding of COVID-19 and symptoms to report and home management strategies by date 02/26/22 /[facility] COVID-19 No TIRE SHOP MANAGER Description: 1. Patient will demonstrate motivation toward recovery or improved functioning. within 2 visits 2. Patient will verbalize understanding of methods to obtain adequate financial support to meet identified health needs. within 2 visits 3. Patient/caregiver will demonstrate how and when to call for help/assistance. within 1 visits 4. Patient will verbalize understanding of how to access community resources to meet long-term care needs. within 2 visits 5. Patient centered intermediate goal: Alona will have access to in-home help. TIRE SHOP MANAGER No Interventions Intervention Associated Problem/Goal Status Variance Visit Notes COVID-19 Evaluation/Education Description: Perform COVID-19 monitoring and education including symptoms to report, social distancing, aerosolizing procedures, and COVID-19 precautions. Problem:/[facility] COVID-19 Goal:COVID-19 Completed Is patient experiencing any new or worsening COVID-19 symptoms? No COVID-19 education provided: Report new or worsening symptoms: Fever 100.4F/38C or above, cough, shortness of breath Instruction provided to Patient. Response verbalize understanding TIRE SHOP MANAGER Pain Problem:TIRE SHOP MANAGER Goal:TIRE SHOP MANAGER Completed Is the patient in physical pain or do they have other symptoms to be reported to the returned case inspector? no. Notified N/A. TIRE SHOP MANAGER Advanced Care Planning Description: Educate/ explore/ facilitate advanced care planning. Problem:TIRE SHOP MANAGER Goal:TIRE SHOP MANAGER Completed Assistance provided with Power of Journeyman Wireman. TIRE SHOP MANAGER In-Home Services Description: Educate/ explore/ facilitate in home services. Problem:TIRE SHOP MANAGER Goal:TIRE SHOP MANAGER Completed In home services facilitated electronic submission of DORS homemaker application. TIRE SHOP MANAGER Transportation Needs Description: Educate/ explore/ facilitate transportation assistance. Problem:TIRE SHOP MANAGER Goal:TIRE SHOP MANAGER Completed Transportation assistance provided education regarding [employer]omin transportation benefit. Response pending documented in this encounter Home Health Visit - Actions and Narratives Actions Care summary for TIRE SHOP MANAGER. Summary of care 1) completed initial evaluation and needs assessment 2) electronic submission of DORS homemaker application 3) POA HC completed and scanned into medical record 4) provided education regarding [employer]omin transportation benefit. SMART goal Alona will have access to in-home help. Plan for next visit follow-up on DORS homemaker application status. Plan of care updates completed and provided to patient/caregiver: No, no updates today documented in this encounter Care Teams Freight Breaker Relationship Specialty Start Date End Date Daja Kern MD [address] [place] [address] PCP - General Internal Medicine 03/13/15 documented as of this encounter
--- OUTSIDE RECORDS SUMMARY | 2024-03-03 19:27 | XMS_ITS | Encounter Summary ---
Author Organization [facility] Address [address] [place] [address] Phone Care Team Providers Care Fractionation Plant Supervisor Name Role Phone Daja Kern MD Primary Care Provider [phone] Reason for Visit * Auth/Cert (Routine) Specialty Diagnoses / Procedures Referred By Contac t Referred To Contact Referral ID Status Reason Start Date Expiration Date Visits Re quested Visits Authorized [id number] 1 1 Encounter Details Date Type Department Care Team (Latest Contact Info) Description 03/08/2022 1:00 AM GENERAL MAGISTRATE [facility] [address] [place] [address] Sr Jeana Butcher RN [place] - DISCIPLINE DISCHARGE Social History Tobacco Use Types Packs/Day Years [...] suspected to have Coronavirus/COVID-19? No / Unsure 03/09/2022 10:02 AM GENERAL MAGISTRATE documented as of this encounter Last Filed Vital Signs Vital Sign Reading Time Taken Comments Blood Pressure 132/90 03/08/2022 12:21 PM GENERAL MAGISTRATE Pulse 98 03/08/2022 12:21 PM GENERAL MAGISTRATE Temperature 36.1 ??C (96.9 ??F) 03/08/2022 12:[address] Respiratory Rate 20 03/08/2022 12:21 PM GENERAL MAGISTRATE Oxygen Saturation 97% 03/08/2022 12:21 PM GENERAL MAGISTRATE Inhaled Oxygen Concentration - - Weight - - Height - - Body Mass Index - - documented in this encounter Plan of Treatment Upcoming Encounters Date Type Department Care Team (Late st Contact Info) Description 03/27/2024 8:30 AM GENERAL MAGISTRATE [facility] [address] [place] [address] Burt Eastman MD [address] [address] 03/27/2024 8:30 AM GENERAL MAGISTRATE - 03/27/2024 9:00 AM GENERAL MAGISTRATE [facility] [address] [place] [address] Burt Eastman MD [address] [address] COLONOSCOPY 04/09/2024 1:15 PM GENERAL MAGISTRATE Office [facility] - Pulmonology & Sleep Medicine [facility] [address] [place] [address] Baron Vergara MD [address] [place] [address] Scheduled Procedures Name Priority Associated Diagnoses Date/Ti me COLONOSCOPY HISTORY OF COLON POLYPS 03/27/2024 8:30 AM GENERAL MAGISTRATE documented as of this encounter Visit Diagnoses Not on filedocumented in this encounter Home Health Visit - Care Plan Visit Details Visit Type -SN - DISCIPLINE DISCHARGE Discipline -Shelter Problems Problem Description Start Date Status Goals Interve ntions SN GENERAL ORDERS Disciplines: Shelter SN General Orders 02/11/2022 Active 1 goal linked to scheduled/documen arnulfo intervention 1 goal intervention scheduled/document ed in this visit Goals Goal Associated Problem Outcome Goal Met? Visit Notes SN General Description: After assessing the patient [...] over this covid. Target date: by 03/05/22 GENERAL ORDERS No Interventions Intervention Associated Problem/Goal Status Variance Visit Notes General Nursing Plan of Care (Order Only) [...] Social Work Focus: ACP, depression, financial resources Ophthalmic Aide to provide: not ordered Past Medical History: Lumbar pars defect [M43.06], Lumbar facet arthropathy [M47.816] 08/09/2017, GERD (gastroesophageal reflux disease) [K21.9], Hypertension [I10], Hyperlipidemia [E78.5], Bipolar disorder ([facility]) [F31.9], Depression [F32.A], Hypothyroid [E03.9], Sepsis ([facility]) [A41.9] 10/03/2018, Enterocolitis [K52.9] 10/03/2018, Abnormal CT scan [R93.89] 10/03/2018, Cocaine use [F14.90] 10/03/2018, SBO (small bowel obstruction) ([facility]) [K56.609] 02/20/2021, Morbid obesity with BMI of 45.0-49.9, adult ([facility]) [E66.01, Z68.42] 02/20/2021 Other contributing issues: no [...] goals. Problem:SN GENERAL ORDERS Goal:SN General Completed documented in this encounter Care Teams Fractionation Plant Supervisor Relationship Specialty Start Date End Date Daja Kern MD [address] [place] [address] PCP - General Internal Medicine 03/13/15 documented as of this encounter
--- OUTSIDE RECORDS SUMMARY | 2024-03-03 19:27 | XMS_ITS | Encounter Summary ---
Author Organization [facility] Care Team Providers Care Kaiako Kohanga Reo Name Role Phone Daja Kern MD Primary Care Provider [phone] Encounter Details Date Type Department Care Team (Latest Contact Info) Description 02/23/2022 Travel Social History Tobacco Use Types Packs/Day [...] Coronavirus/COVID-19? No / Unsure 02/23/2022 10:03 AM DENTAL PATIENT COORDINATOR documented as of this encounter Plan of Treatment Upcoming Encounters Date Type Department Care Team (Late st Contact Info) Description 03/27/2024 8:30 AM DENTAL PATIENT COORDINATOR [facility] [address] [place] [address] Burt Eastman MD 2 [facility] [address] [address] 03/27/2024 8:30 AM DENTAL PATIENT COORDINATOR - 03/27/2024 9:00 AM DENTAL PATIENT COORDINATOR Surgery [facility] [address] [place] [address] Burt Eastman MD 2 [facility] [address] [address] COLONOSCOPY 04/09/2024 1:15 PM DENTAL PATIENT COORDINATOR [facility] [address] [place] [address] Baron Vergara MD [address] [place] [address] Scheduled Procedures Name Priority Associated Diagnoses Date/Ti me COLONOSCOPY HISTORY OF COLON POLYPS 03/27/2024 8:30 AM DENTAL PATIENT COORDINATOR documented as of this encounter Visit Diagnoses Not on filedocumented in this encounter Additional Health Concerns Infection Onset Date Last Indicated Resolved Time Respiratory Rule-Out 02/08/2022 02/08/2022 023 12:16 AM DENTAL PATIENT COORDINATOR COVID - 19 Confirmed 02/08/2022 02/08/2022 023 12:16 AM DENTAL PATIENT COORDINATOR documented as of this encounter Care Teams Kaiako Kohanga Reo Relationship Specialty Start Date End Date Daja Kern MD [address] [place] [address] PCP - General Internal Medicine 03/13/15 documented as of this encounter
--- OUTSIDE RECORDS SUMMARY | 2024-03-03 19:27 | XMS_ITS | Encounter Summary ---
Author Organization [facility] Address [address] [place] [address] Phone Care Team Providers Care Wirer Name Role Phone Daja Kern MD Primary Care Provider [phone] Reason for Visit * Auth/Cert (Routine) Specialty Diagnoses / Procedures Referred By Contac t Referred To Contact Referral ID Status Reason Start Date Expiration Date Visits Re quested Visits Authorized [id number] 1 1 Encounter Details Date Type Department Care Team (Late st Contact Info) Description 03/24/2022 10:30 AM WET WHEELER [facility] [address] [place] [address] Tea Sutherland, MARCOS OT - OASIS DISCHARGE Social History Tobacco Use Types Packs/Day [...] suspected to have Coronavirus/COVID-19? No / Unsure 03/24/2022 10:26 AM WET WHEELER documented as of this encounter Last Filed Vital Signs Vital Sign Reading Time Taken Comments Blood Pressure - - Pulse 115 03/24/2022 10:45 AM [facility] Temperature 36.6 ??C (97.9 ??F) 03/24/2022 10:45 AM C Respiratory Rate 18 03/24/2022 10:45 AM WET WHEELER Oxygen Saturation 95% 03/24/2022 10:45 AM WET WHEELER room air Inhaled Oxygen Concentration - - Weight - - Height - - Body Mass Index - - documented in this encounter Plan of Treatment Upcoming Encounters Date Type Department Care Team (Late st Contact Info) Description 03/27/2024 8:30 AM WET WHEELER [facility] [address] [place] [address] Burt Eastman MD [address] [address] 03/27/2024 8:30 AM WET WHEELER - 03/27/2024 9:00 AM WET WHEELER [facility] [address] [place] [address] Burt Eastman MD [address] [address] COLONOSCOPY 04/09/2024 1:15 PM WET WHEELER Office Visit [facility] - Pulmonology & Sleep Medicine [facility] [address] [place] [address] Baron Vergara MD [address] [place] [address] Scheduled Procedures Name Priority Associated Diagnoses Date/Ti me COLONOSCOPY HISTORY OF COLON POLYPS 03/27/2024 8:30 AM WET WHEELER documented as of this encounter Visit Diagnoses Not on filedocumented in this encounter Home Health Visit - Care Plan Visit Details Visit Type -OT - OASIS DISCH ARGE Discipline -Occupational Therapy Problems Problem Description Start Date Status Goals Interve ntions OCCUPATIONAL THERAPY GENERAL ORDER (O) Disciplines: Occupational Therapy Occupational Therapy General Order 02/24/2022 Active 1 goal linked to scheduled/document ed intervention 1 goal intervention scheduled/document ed in this visit OT COMPREHENSIVE Disciplines: Occupational Therapy 02/24/2022 Active 7 goals linked to scheduled/document ed interventions 1 goal intervention scheduled/document ed in this visit Goals Goal Associated Problem Outcome Goal Met? Visit Notes Occupational Therapy General Description: After assessing the patient and discussing the patient's goals the following were identified. Patient Centered Nurse Practitioner Home Assessments Goal: safely be able to shower on her own Target date: 03/18/22 OCCUPATIONAL THERAPY GENERAL ORDER (O) No OT Homemaking Description: Short Term Goal: Patient will simulate laundry at standing level with cane with independence and good understanding of safety/technique. To be met by 03/18/22 OT COMPREHENSIVE Therapy: Goal met Yes STG: met per pt. report OT Meal Prep Description: Short Term Goal: Patient will complete meal preparation at standing level with cane with HC OT ASSIST: independence and good understanding of safety/technique. To be met by 03/18/22. OT COMPREHENSIVE Therapy: Goal met Yes Stg: met per pt. report OT Toileting Description: Short Term Goal: Patient will complete toileting to include clothing management and hygiene at sitting position with grab bars with independence and good understanding of safety/technique. To be met by 03/18/22. OT COMPREHENSIVE Therapy: Goal met Yes stg: met per pt. report OT Dressing Description: Short Term Goal: Patient will complete total body dressing with independence and good understanding of safety/technique. To be met by 03/18/22. OT COMPREHENSIVE Therapy: Goal met Yes stg: met per pt. report OT Bathing Description: Short Term Goal: Patient will complete total body bathing at tub level while sitting with shower seat and grab bars with independence and good understanding of safety/technique. To be met by 03/18/22. OT COMPREHENSIVE Therapy: Goal met Yes STG: met per pt. report OT Energy Conservation Description: Short Term Goal: Patient will teach back 4/4 energy conservation principles for rest breaks, diaphragmatic breathing, pursed mouth breathing and activity planning with independence with handout in order to complete dressing and bathing with good understanding of safety/technique. To be met by 03/18/22. OT COMPREHENSIVE Therapy: Goal met Yes stg: met OT Transfers Description: Short Term Goal: Patient will complete toilet transfer with adaptive equipment of grab bar and cane with independence and good understanding of safety/technique. To be met by 03/13/22. Nurse Practitioner Home Assessments Goal: Patient will complete tub transfer with adaptive equipment of grab bars and seat with independence and good understanding of safety/technique. To be met by 03/18/22. OT COMPREHENSIVE Therapy: Goal met Yes stg: met per pt. report ltg: met per pt. report Interventions Intervention Associated Problem/Goal Status Variance Visit Notes OT Evaluation (Order Only) Description: 51 year [...] assessment and/ or respiratory distress. Patient and N MD Concha are in agreement with plan of care. Perform pulse oximetry PRN for intermittent assessment and/ or respiratory distress. Problem:OCCUPATIONAL THERAPY GENERAL ORDER (O) Goal:Occupational Therapy General Completed OT Transfers Description: Instruct on transfer techniques and safety. Equipment as needed. Problem:OT COMPREHENSIVE Goal:OT Transfers Completed Pt. answered the door independently and ambulated to her apartment from the guest entrance using her straight cane. SHe was short of breath, but oxygen sat remained 955. Pt. was able to get up and down from the sofa, toilet, and reports she gets in the shower independently using a shower seat. Goals met documented in this encounter Care Teams Wirer Relationship Specialty Start Date End Date Daja Kern MD [address] [place] [address] PCP - General Internal Medicine 03/13/15 documented as of this encounter
--- OUTSIDE RECORDS SUMMARY | 2024-03-03 19:27 | XMS_ITS | Encounter Summary ---
Author Organization [facility] [facility] Care Team Providers Care Customer Care Assistant Name Role Phone Daja Kern MD Primary Care Provider [phone] Encounter Details Date Type Department Care Team (Latest Contact Info) Description 04/29/2022 Travel Social History Tobacco Use Types Packs/Day [...] Coronavirus/COVID-19? No / Unsure 04/29/2022 3:51 PM SENIOR ACCOUNTANT ANALYST documented as of this encounter Plan of Treatment Upcoming Encounters Date Type Department Care Team (Late st Contact Info) Description 03/27/2024 8:30 AM SENIOR ACCOUNTANT ANALYST [facility] [address] [place] [address] Burt Eastman MD 2 [facility] [address] [address] 03/27/2024 8:30 AM SENIOR ACCOUNTANT ANALYST - 03/27/2024 9:00 AM SENIOR ACCOUNTANT ANALYST [facility] [address] [place] [address] Burt Eastman MD [address] [address] COLONOSCOPY 04/09/2024 1:15 PM SENIOR ACCOUNTANT ANALYST [facility] [address] [place] [address] Baron Vergara MD [address] [place] [address] Scheduled Procedures Name Priority Associated Diagnoses Date/Ti me COLONOSCOPY HISTORY OF COLON POLYPS 03/27/2024 8:30 AM SENIOR ACCOUNTANT ANALYST documented as of this encounter Visit Diagnoses Not on filedocumented in this encounter Care Teams Customer Care Assistant Relationship Specialty Start Date End Date Daja Kern MD [address] [place] [address] PCP - General Internal Medicine 03/13/15 documented as of this encounter
--- OUTSIDE RECORDS SUMMARY | 2024-03-03 19:27 | XMS_ITS | Encounter Summary ---
Author Organization [facility] Address [address] [place] [address] Phone Care Team Providers Care Product Design Engineer Name Role Phone Daja Kern MD Primary Care Provider [phone] Reason for Visit * Reason Comments Shortness of Breath Encounter Details Date Type Department Care Team ([facility] st Contact Info) Description 01/07/2023 9:04 AM PUBLIC SPEAKING PROFESSOR - 01/07/2023 2:05 PM PUBLIC SPEAKING PROFESSOR Emergency [facility] Emergency [address] [place] [address] Robert Ball MD [address] [place] [address] Shortness of breath Discharge Disposition: Discharged to home or Selfcare [...] Coronavirus/COVID-19? No / Unsure 01/02/2023 1:06 PM PUBLIC SPEAKING PROFESSOR documented as of this encounter Last Filed Vital Signs Vital Sign Reading Time Taken Comments Blood Pressure 137/88 01/07/2023 1:45 PM PUBLIC SPEAKING PROFESSOR Pulse 104 01/07/2023 1:45 PM PUBLIC SPEAKING PROFESSOR Temperature 36.8 ??C (98.3 ??F) 01/07/2023 9:16 AM CS T Respiratory Rate 25 01/07/2023 1:00 PM PUBLIC SPEAKING PROFESSOR Oxygen Saturation 95% 01/07/2023 1:45 PM PUBLIC SPEAKING PROFESSOR Inhaled Oxygen Concentration - - Weight 124.7 kg (275 lb) 01/07/2023 9:10 AM PUBLIC SPEAKING PROFESSOR Height 157.5 cm (5' 2 ) 01/07/2023 9:10 AM PUBLIC SPEAKING PROFESSOR Body Mass Index 50.3 01/07/2023 9:10 AM PUBLIC SPEAKING PROFESSOR documented in this encounter Discharge Instructions * Attachments The following attachments cannot be sent through Care Everywhere. * Hypertension Adult (Samoan) * Shortness of Breath Adult (Samoan) documented in this encounter Medications at Time of Discharge benztropine (COGENTIN) 0.5 MG Tablet Take 0.5 mg by mouth nightly. DULoxetine (CYMBALTA) [address] Particles Take 90 mg by mouth daily. irbesartan (AVAPRO) 150 MG Tablet Take 300 mg by mouth daily. 02/11/2021 levothyroxine (SYNTHROID) 50 MCG TabletIndications :Hypothyroidism Take 50 mcg by mouth daily. Indications: Underactive Thyroid 06/18/2018 metoprolol Succinate (TOPROL-XL) 25 MG TABLET SR [...] Anxiety (Mild anxiety). 30 Tablet 01/05/2023 4 loperamide (IMODIUM) 2 MG Capsule Take 1 Capsule by mouth every 8 hours as needed for Diarrhea (give for continued diarrhea). 30 Capsule 01/05/2023 4 Multivitamin-Mine rals (multiple vitami/antioxidan ts) Tablet Take 1 Tablet by mouth daily. 90 Tablet 01/06/2023 4 rOPINIRole (REQUIP) 0.5 MG Tablet Take 1 Tablet by mouth every 12 hours as needed for Other (For restless legs). 90 Tablet 01/05/2023 4 senna 8.6 MG Tablet Take 2 Tablets by mouth nightly as needed for Constipation - 1st line. 30 Tablet 01/05/2023 4 Thiamine Mononitrate (THIAMINE) 100 MG Tablet Take 1 Tablet by mouth daily. 30 Tablet 01/06/2023 4 documented as of this encounter ED Notes * Abel Andres RN - 01/07/2023 2:05 PM CST pt understands not to take lasix. she states she did not receive her routine meds while at [facility] for rehab medicine. she understands she will start her routine meds tomorrow as stated by dr ball. she understands she needs to avoid extra salt intake with her meals. no new questions or c/o's. to lobby phone per w/c [facility] rn. resp unlabored. IC SPEAKING PROFESSOR * Abel Andres, AGUILA - 01/07/2023 1:10 PM CST explained purpose and common side effects of medications ordered. she understands this is one of her meds that she normally takes and has not been taking as directed. pt's meds [facility] to discharge to rehab facility. no new questions or c/o's. IC SPEAKING PROFESSOR * Abel Andres RN - 01/07/2023 12:03 PM CST pt voided per bedside commode. urine sample collected and sent to lab. pt c/o's sob with exertion and c/o's being light headed and hungry. dr ball aware. IC SPEAKING PROFESSOR * Abel Andres RN - 01/07/2023 11:20 AM CST pt attempted to give urine sample and passed stool in speci hat. she c/o's sob with exertion. IC SPEAKING PROFESSOR * Abel Andres RN - 01/07/2023 11:10 AM CST explained purpose and common side effects of medications ordered. no new questions or c/o's. IC SPEAKING PROFESSOR * Robert Ball MD - 01/07/2023 10:30 AM CST Chief Complaint Patient presents with ??? Shortness of Breath HPI 52 yo female w/ h/o HTN, hypothyroid, Bipolar, cocaine abuse presents to the ED c/o shortness of breath. She reports feeling unwell for the past 2-3 days. Symptoms include SOB, cough, pleuritic chestpain and headache. Symptoms started while she was receiving treatment for cocaine addiction in [place]. She reports that they wanted to admit her there for her breathing, but she could not stay because her ride was ready to go. She has not been taking any of her usual medications for several days. No current facility-administered medications for this encounter. Current Outpatient Medications Medication Sig Dispense Refill ??? benztropine (COGENTIN) 0.5 MG Tablet Take 0.5 mg by mouth 2 times daily. ??? DULoxetine (CYMBALTA) [address] Particles Take 60 mg by mouth 2 times daily. ??? folic acid (FOLVITE) 1 MG Tablet Take 1 Tablet by mouth daily. 30 Tablet 0 ??? furosemide (LASIX) 20 MG Tablet Take 1 Tablet by mouth daily. 14 Tablet 0 ??? hydrOXYzine (ATARAX) 50 MG Tablet Take 1 Tablet by mouth every 6 hours as needed for Anxiety (Mild anxiety). 30 Tablet 0 ??? irbesartan (AVAPRO) 150 MG Tablet Take 150 mg by mouth daily. ??? levothyroxine (SYNTHROID) 50 MCG Tablet Take 50 mcg by mouth daily. Indications: Underactive Thyroid ??? loperamide (IMODIUM) 2 MG Capsule Take 1 Capsule by mouth every 8 hours as needed for Diarrhea (give for continued diarrhea). 30 Capsule 0 ??? metoprolol Succinate (TOPROL-XL) 25 MG TABLET SR 24 HR Take 25 mg by mouth daily. ??? miconazole 2 % Powder Apply on the groin region. 71 g 0 ??? Multivitamin-Minerals (multiple vitami/antioxidants) Tablet Take 1 Tablet by mouth daily. 90 Tablet 0 ??? omeprazole (PriLOSEC) 40 MG CAPSULE DELAYED RELEASE Take 1 Capsule by mouth daily. 90 Capsule 0 ??? ondansetron (ZOFRAN-ODT) 4 MG TABLET DISPERSIBLE Take 1 Tablet by mouth every 6 hours as neededfor Nausea - 1st line (for nausea or vomiting). 10 Tablet 0 ??? rOPINIRole (REQUIP) 0.5 MG Tablet Take 1 Tablet by mouth every 12 hours as needed for Other (For restless legs). 90 Tablet 0 ??? senna 8.6 MG Tablet Take 2 Tablets by mouth nightly as needed for Constipation - 1st line. 30 Tablet 0 ??? simvastatin (ZOCOR) 10 MG Tablet Take 10 mg by mouth every evening. ??? Thiamine Mononitrate (THIAMINE) 100 MG Tablet Take 1 Tablet by mouth daily. 30 Tablet 0 ??? traZODone (DESYREL) 50 MG Tablet Take 100 mg by mouth nightly. ??? triamterene-hydrochlorothiazide (DYAZIDE) 37.5-25 MG Capsule Take 1 Capsule by mouth every morning. Allergies Allergen Reactions ??? Geodon [Ziprasidone Hcl] [...] CHOLECYSTECTOMY 2005 laparoscopic ??? COLONOSCOPY [facility] (Does not remember the ) ??? COLONOSCOPY N/A 11/16/2018 Procedure: COLONOSCOPY - POLYPS, BIOPSIES; Surgeon: Damian Gallardo DO; Location: [facility] GI [facility]; Service: Gastroenterology ??? EGD 2012? [facility] ??? UPPER GASTROINTESTINAL ENDOSCOPY N/A 02/06/2019 Procedure: EGD, SMALL BOWEL BIOSY, GASTRIC POLYP, SAMANTHA TEST; Surgeon: Damian Gallardo DO; Location: [facility] GI [facility]; Service: Gastroenterology ??? WISDOM TOOTH EXTRACTION 1992 4 wisdom teeth [...] History Narrative ??? Not on file BP 137/88 Pulse 104 Temp 98.3 ??F (36.8 ??C) (Tympanic) Resp 25 Ht 5' 2 (1.575 m) Wt 275lb (124.7 kg) LMP 11/12/2019 SpO2 95% BMI 50.30 kg/m?? Review of Systems Constitutional: Positive for chills, fatigue and fever. HENT: Positive for congestion. Respiratory: Positive for cough and shortness of breath. Cardiovascular: Positive for chest pain. Negative for leg swelling. Gastrointestinal: Negative. Genitourinary: Negative. Musculoskeletal: Positive for myalgias. Skin: Negative. Neurological: Negative. All other systems reviewed and are negative. [...] is normal. No respiratory distress. Breath sounds: Wheezing present. No rales. Abdominal: General: Bowel sounds are normal. There is no distension. Palpations: Abdomen is soft. Tenderness: There is no abdominal tenderness. There is no guarding or rebound. Musculoskeletal: General: Normal range of motion. Cervical back: Normal range of motion. Right lower leg: No edema. Left lower leg: No edema. Skin: General: Skin is warm and dry. Neurological: Mental Status: She is alert and oriented to person, place, and time. Cranial Nerves: No cranial nerve deficit. Psychiatric: Mood and Affect: Mood is anxious. Procedures Labs Reviewed CMP (COMPREHENSIVE METABOLIC PANEL) - Abnormal; Notable for the following components: Result Value GLUCOSE 121 (*) BUN 6 (*) BUN/CREATININE RATIO 9 (*) All other components within normal limits B-TYPE NATRIURETIC PEPTIDE (BNP) - Abnormal; Notable for the following components: B TYPE NATRIURETIC PEPTIDE 307 (*) All other components within normal limits CBC WITH AUTO DIFFERENTIAL - Abnormal; Notable for the following components: NEUTROPHILS 73.4 (*) LYMPHOCYTES 16.8 (*) ABSOLUTE LYMPHOCYTES 1.15 (*) All other components within normal limits MAGNESIUM (MG) - Normal TROPONIN I, HIGH SENSITIVITY (HSTRP) - Normal URINE DRUG SCREEN - Normal TROPONIN I, HIGH SENSITIVITY (HSTRP) - Normal COMPLETE BLOOD COUNT (CBC) WITH DIFF Narrative: The following orders were created for panel order CBC w/ Diff. Procedure Abnormality Status --------- ------ CBC with Auto Differential[[id number]] Abnormal Final result Please view results for these tests on the individual orders. URINALYSIS REFLEX IF INDICATED BY ABNORMAL RESULTS EXTRA TUBES Narrative: The following orders were created for panel order Extra Tubes. Procedure Abnormality Status --------- ------ Blue Top Tube[[id number]] Final result Gold Top Tube[[id number]] Final result Please view results for these tests on the individual orders. BLUE TOP TUBE GOLD TOP TUBE Imaging Results XR CHEST SINGLE VIEW PORTABLE (Final result) Result time 01/07/23 09:41:46 Final result by Jeff Aden MD (01/07/23 09:41:46) Impression: IMPRESSION: No acute cardiopulmonary findings. Narrative: EXAM DESCRIPTION: XR CHEST SINGLE VIEW PORTABLE REASON FOR STUDY: Complaints of shortness of breath, chest pain when coughing, and headache for last 2-3 days. HX: HTN TECHNIQUE: 1 radiographic view(s) of the chest. COMPARISON: 09/10/2022 FINDINGS: LUNGS: There is no pneumonic consolidation, pulmonary edema, pleural effusion or pneumothorax. HEART/MEDIASTINUM: Size and cardiomediastinal contours are unchanged and within normal limits for technique. LINES/TUBES: None. BONES: No acute osseous abnormality. THIS IS AN ELECTRONICALLY VERIFIED FINAL REPORT 01/07/2023 9:39 AM - Electronically signed by Jeff Aden M.D. MZ: MARCO ANTONIO Report ID: [id number] Reading Location: [id number] ECG Report Time:911 Rhythm: NSR Rate: 91 Interpretation:Moderate voltage criteria for LVH, may be normal variant. When compared with ECG of 02-JAN-2023 14:40, Nonspecific T wave abnormality no longer evident in Lateral leads Medical Decision Making DDx: CHF, htn emergency, pneumonia, URI, cocaine abuse, other BNP elevated. Likely related to untreated chronic issues. Symptoms improved with treatment. Will have her resume home meds. Amount and/or Complexity of Data Reviewed External Data Reviewed: labs, radiology, ECG and notes. Labs: ordered. Decision-making details documented in ED Course. Radiology: ordered and independent interpretation performed. Decision-making details documented in ED Course. ECG/medicine tests: ordered and independent interpretation performed. Decision- making details documented in ED Course. Clinical Impression 1. Shortness of breath 2. Hypertension Disposition: Discharge The patient remained stable throughout their ED stay. My clinical impression was discussed with thepatient/family. Labs and radiology results were reviewed with them. I gave them the opportunity to ask questions, and addressed them as completely as possible given the information available at present. The therapeutic plan was discussed, instructions were given and the importance of primary care follow up was stressed and encouraged. The patient/family voiced understanding of the plan, indications to return, and the need for follow up. IC SPEAKING PROFESSOR * Abel Andres RN - 01/07/2023 10:21 AM CST pt states she missed the speci hat. no urine sample collected. pt c/o'd sob upon returning to room. IC SPEAKING PROFESSOR IC SPEAKING PROFESSOR * Abel Andres, AGUILA - 01/07/2023 10:15 AM CST pt c/o's wheezing is returning. dr ball aware. to restroom per w/c to collect urine sample. IC SPEAKING PROFESSOR * Abel Andres, AGUILA - 01/07/2023 9:20 AM CST estimated time frame on blood tests. call light on rail. no new questions. resp are unlabored at rest. IC SPEAKING PROFESSOR * Adeline Lozano RN - 01/07/2023 9:07 AM CST Arrived via [facility] with complaints of shortness of breath, chest pain when coughing, and headache for last 2-3 days. Per EMS initial blood pressure 164/140 and then 106/48, heart rate 92 with sinus rhythm on monitor, o2 saturation 95% on 2 liters per nasal cannula and respiration 18. Upon arrival patient placed on cardiac, NIBP, and pulse ox monitors. Labs drawn and EKG completed. Dr. Ball at bedside IC SPEAKING PROFESSOR * Wendy Mobley - 01/07/2023 9:04 AM CST Bed: ED10-01 Expected date: 01/07/23 Expected time: 9:02 AM Means of arrival: Ambulance ([facility]) Comments: 4A22 [facility] 57F CHEST PAIN HEADACHE IC SPEAKING PROFESSOR documented in this encounter Plan of Treatment Upcoming Encounters Date Type Department Care Team (Late st Contact Info) Description 03/27/2024 8:30 AM PUBLIC SPEAKING PROFESSOR [facility] [address] [place] [address] Burt Eastman MD [address] [address] 03/27/2024 8:30 AM PUBLIC SPEAKING PROFESSOR - 03/27/2024 9:00 AM PUBLIC SPEAKING PROFESSOR [facility] [address] [place] [address] Burt Eastman MD 2 [facility] [address] [address] COLONOSCOPY 04/09/2024 1:15 PM PUBLIC SPEAKING PROFESSOR [facility] [address] [place] [address] Baron Vergara MD [address] [place] [phone] Scheduled Procedures Name Priority Associated Diagnoses Date/Ti me COLONOSCOPY HISTORY OF COLON POLYPS 03/27/2024 8:30 AM PUBLIC SPEAKING PROFESSOR documented as of this encounter Procedures Procedure Name Priority Date/Time Associated Diagnosis Comments URINALYSIS REFLEX IF INDICATED BY ABNORMAL RESULTS STAT 01/07/2023 12:00 PM PUBLIC SPEAKING PROFESSOR URINE DRUG SCREEN STAT 01/07/2023 12: 00 PM PUBLIC SPEAKING PROFESSOR TROPONIN I, HIGH SENSITIVITY (HSTRP) STAT 01/07/2023 10:14 AM PUBLIC SPEAKING PROFESSOR XR CHEST SINGLE VIEW PORTABLE STAT 01/07/2023 9:32 AM PUBLIC SPEAKING PROFESSOR EKG 12 LEAD STAT 01/07/2023 9:12 AM PUBLIC SPEAKING PROFESSOR EXTRA TUBES STAT 01/07/2023 9:10 AM PUBLIC SPEAKING PROFESSOR TROPONIN I, HIGH SENSITIVITY (HSTRP) STAT 01/07/2023 9:10 AM PUBLIC SPEAKING PROFESSOR GOLD TOP TUBE STAT 01/07/2023 9:10 AM PUBLIC SPEAKING PROFESSOR BLUE TOP TUBE STAT 01/07/2023 9:10 AM PUBLIC SPEAKING PROFESSOR CBC WITH AUTO DIFFERENTIAL STAT 01/07/2023 9:10 AM PUBLIC SPEAKING PROFESSOR MAGNESIUM (MG) STAT 01/07/2023 9:10 AM PUBLIC SPEAKING PROFESSOR CMP (COMPREHENSIVE METABOLIC PANEL) STAT 01/07/2023 9:10 AM PUBLIC SPEAKING PROFESSOR COMPLETE BLOOD COUNT (CBC) WITH DIFF STAT 01/07/2023 9:10 AM PUBLIC SPEAKING PROFESSOR B-TYPE NATRIURETIC PEPTIDE (BNP) STAT 01/07/2023 9:10 AM PUBLIC SPEAKING PROFESSOR EKG SCAN 01/07/2023 12:00 AM PUBLIC SPEAKING PROFESSOR documented in this encounter Results * Urinalysis w/ Reflex (01/07/2023 12:00 PM PUBLIC SPEAKING PROFESSOR) SPECIFIC GRAVITY 1.005 1.003 - 1.030 01/07/2023 12:45 PM PUBLIC SPEAKING PROFESSOR [facility] URINE PH 8.0 5.0 - 9.0 01/07/2023 12:45 PM PUBLIC SPEAKING PROFESSOR [facility] WBC ESTERASE Negative Negative 01/07/2023 12:45 PM PUBLIC SPEAKING PROFESSOR [facility] NITRITE Negative Negative 01/07/2023 12:45 PM PUBLIC SPEAKING PROFESSOR [facility] PROTEIN, RANDOM URINE Negative Negative 01/07/2023 12:45 PM PUBLIC SPEAKING PROFESSOR [facility] URINE GLUCOSE, QUAL Negative Negative 01/07/2023 12:45 PM PUBLIC SPEAKING PROFESSOR [facility] URINE KETONES Negative Negative 01/07/2023 12:45 PM PUBLIC SPEAKING PROFESSOR [facility] UROBILINOGEN Normal Normal mg/dL 01/07/2023 12:45 PM PUBLIC SPEAKING PROFESSOR [facility] URINE BLOOD Negative Negative dylan/ul 01/07/2023 12:45 PM PUBLIC SPEAKING PROFESSOR [facility] URINALYSIS COLOR Yellow 01/08/20 12:45 PM PUBLIC SPEAKING PROFESSOR [facility] URINALYSIS CLARITY Clear 01/07/2023 12:45 PM PUBLIC SPEAKING PROFESSOR [facility] Urine URINE SPECIMEN / Unknown Non-Phlebotomy Collection / Unknown 01/07/2023 12:00 PM PUBLIC SPEAKING PROFESSOR 01/07/2023 12:03 PM PUBLIC SPEAKING PROFESSOR Robert Ball MD URINE ORDERABLES Final Result [facility] [address] [place] [address] * Urine Drug Screen (01/07/2023 12:00 PM PUBLIC SPEAKING PROFESSOR) UR AMPHETAMINE NON DETECTED NON DETECTED 01/07/2023 12:30 PM PUBLIC SPEAKING PROFESSOR [facility] Comment: FOR MEDICAL USE ONLY. CUTOFF CONCENTRATION FOR DETECTED RESULT: AMPHETAMINE: ??500 NG/ML UR BENZODIAZEPINES NON DETECTED NON DETECTED 01/07/2023 12:30 PM PUBLIC SPEAKING PROFESSOR [facility] Comment: FOR MEDICAL USE ONLY. CUTOFF CONCENTRATION FOR DETECTED RESULT: BENZODIAZAPINE: ??100 NG/ML UR COCAINE METABOLITE NON DETECTED NON DETECTED 01/07/2023 12:30 PM PUBLIC SPEAKING PROFESSOR [facility] Comment: FOR MEDICAL USE ONLY. CUTOFF CONCENTRATION FOR DETECTED RESULT: COCAINE: ??300 NG/ML UR OPIATES NON DETECTED NON DETECTED 01/07/2023 12:30 PM PUBLIC SPEAKING PROFESSOR [facility] Comment: FOR MEDICAL USE ONLY. CUTOFF CONCENTRATION FOR DETECTED RESULT: OPIATES: ? 300 NG/ML UR PHENCYCLIDINE NON DETECTED NON DETECTED 01/07/2023 12:30 PM PUBLIC SPEAKING PROFESSOR [facility] Comment: FOR MEDICAL USE ONLY. CUTOFF CONCENTRATION FOR DETECTED RESULT: PCP: ? 25 NG/ML UR CANNABINOID NON DETECTED NON DETECTED 01/07/2023 12:30 PM PUBLIC SPEAKING PROFESSOR [facility] Comment: FOR MEDICAL USE ONLY. CUTOFF CONCENTRATION FOR DETECTED RESULT: THC (MARIJUANA): 50 NG/ML UR BARBITURATE NON DETECTED NON DETECTED 01/07/2023 12:30 PM PUBLIC SPEAKING PROFESSOR [facility] Comment: FOR MEDICAL USE ONLY. CUTOFF CONCENTRATION FOR DETECTED RESULT: BARBITUATES: ? 200 NG/ML Urine Non-Phlebotomy Collection / Unknown 01/07/2023 12:00 PM PUBLIC SPEAKING PROFESSOR 01/07/2023 12:03 PM PUBLIC SPEAKING PROFESSOR Robert Ball MD URINE ORDERABLES Final Result [facility] [address] [place] [address] * TROPONIN I, HIGH SENSITIVITY (HSTRP) (01/07/2023 10:14 AM PUBLIC SPEAKING PROFESSOR) Only the most recent of2 resultswithin the time period is included. TROPONIN I, HIGH SENSITIVITY- TREVINO 4 <=14 ng/L 01/07/2023 10:53 AM PUBLIC SPEAKING PROFESSOR [facility] Comment: High-sensitivity troponin I results are reported in ng/L making the result appear to be 1,000 times higher than the contemporary troponin I value which is reported in ng/ml. Results from [place]. Blood Venipuncture / Unknown 01/07/2023 10:14 AM PUBLIC SPEAKING PROFESSOR 01/07/2023 10:24 AM PUBLIC SPEAKING PROFESSOR Robert Ball MD CHEMISTRY ORDERABLES F inal Result [facility] [address] [place] [address] * XR CHEST SINGLE VIEW PORTABLE (01/07/2023 9:32 AM PUBLIC SPEAKING PROFESSOR) Anatomical Region Laterality Modality Chest N/A Digital Radiogra phy 01/07/2023 9:39 AM PUBLIC SPEAKING PROFESSOR Impressions 01/07/2023 9:41 AM PUBLIC SPEAKING PROFESSOR IMPRESSION: No acute cardiopulmonary findings. Narrative 01/07/2023 9:41 AM PUBLIC SPEAKING PROFESSOR EXAM DESCRIPTION: XR CHEST SINGLE VIEW PORTABLE REASON FOR STUDY: Complaints of shortness of breath, chest pain when coughing, and headache for last 2-3 days. HX: HTN ?? TECHNIQUE: 1 ??radiographic view(s) of the chest. COMPARISON: 09/10/2022 FINDINGS: LUNGS: ??There is no pneumonic consolidation, pulmonary edema, pleural effusion or pneumothorax. ?? HEART/MEDIASTINUM: ??Size and cardiomediastinal contours are unchanged and within normal limits for technique. LINES/TUBES: ??None. BONES: ??No acute osseous abnormality. THIS IS AN ELECTRONICALLY VERIFIED FINAL REPORT 01/07/2023 9:39 AM - Electronically signed by ??Jeff MaresD. MZ: MZ D: ??01/07/2023 9:39 AM T: ??01/07/2023 9:39 AM Report ID: [id number] Reading Location: ??[id number] Procedure Note Jeff Aden MD - 01/07/2023 EXAM DESCRIPTION: XR CHEST SINGLE VIEW PORTABLE REASON FOR STUDY: Complaints of shortness of breath, chest pain when coughing, and headache for last 2-3 days. HX: HTN TECHNIQUE: 1 radiographic view(s) of the chest. COMPARISON: 09/10/2022 FINDINGS: LUNGS: There is no pneumonic consolidation, pulmonary edema, pleural effusion or pneumothorax. HEART/MEDIASTINUM: Size and cardiomediastinal contours are unchanged and within normal limits for technique. LINES/TUBES: None. BONES: No acute osseous abnormality. THIS IS AN ELECTRONICALLY VERIFIED FINAL REPORT 01/07/2023 9:39 AM - Electronically signed by Jeff Aden M.D. MZ: MARCO ANTONIO Report ID: [id number] Reading Location: [id number] IMPRESSION: No acute cardiopulmonary findings. Robert Ball MD IMG DIAGNOSTIC ORDERAB LES Final Result * EKG 12 LEAD (01/07/2023 9:12 AM PUBLIC SPEAKING PROFESSOR) Ventricular Rate 91 BPM EXTERNAL EKG Atrial Rate 91 BPM EXTERNAL EKG P-R Interval 140 ms EXTERNAL EKG QRS Duration 90 ms EXTERNAL EKG Q-T Duration 382 ms EXTERNAL EKG QTC CALCULATION 469 ms EXTERNAL EKG P Snook 15 degrees EXTERNAL EKG R Snook -19 degrees EXTERNAL EKG T Snook 16 degrees EXTERNAL EKG 01/07/2023 9:12 AM PUBLIC SPEAKING PROFESSOR Impressions EXTERNAL EKG - 01/09/2023 1:05 PM PUBLIC SPEAKING PROFESSOR Normal sinus rhythm Moderate voltage criteria for LVH, may be normal variant ( R in aVL , Zachary product ) Borderline ECG When compared with ECG of 02-JAN-2023 14:40, Nonspecific T wave abnormality no longer evident in Lateral leads Confirmed by Antony Choudhury ([id number]) on 01/09/2023 1:05:08 PM Narrative Procedure Note Antony Carroll MD - 01/09/2023 IMPRESSION: Normal sinus rhythm Moderate voltage criteria for LVH, may be normal variant ( R in aVL ,[place] product ) Borderline ECG When compared with ECG of 02-JAN-2023 14:40, Nonspecific T wave abnormality no longer evident in Lateral leads Confirmed by Antony Choudhury ([id number]) on 01/09/2023 1:05:08 PM Robert Ball MD IMG ECG ORDERABLES Fin al Result Performing Organization Address City/[facility] Co de Phone Number EXTERNAL EKG * Gold Top Tube (01/07/2023 9:10 AM PUBLIC SPEAKING PROFESSOR) Blood No Phlebotomy Charged / Unknown 01/07/2023 9:10 AM PUBLIC SPEAKING PROFESSOR 01/07/2023 9:28 AM PUBLIC SPEAKING PROFESSOR Robert Ball MD CHEMISTRY ORDERABLES F inal Result Performing Organization Address [facility]/ZIP Co de Phone Number [facility] [address] [place] [address] * Blue Top Tube (01/07/2023 9:10 AM PUBLIC SPEAKING PROFESSOR) Blood No Phlebotomy Charged / Unknown 01/07/2023 9:10 AM PUBLIC SPEAKING PROFESSOR 01/07/2023 9:28 AM PUBLIC SPEAKING PROFESSOR Robert Ball MD HEMATOLOGY ORDERABLES Final Result Performing Organization Address [facility] Co de Phone Number [facility] [address] [place] [address] * (ABNORMAL) CBC with Auto Differential (01/07/2023 9:10 AM PUBLIC SPEAKING PROFESSOR) WBC 6.85 4.00 - 12.00 10(3)/mcL 01/07/2023 9:33 AM PUBLIC SPEAKING PROFESSOR [facility] RBC 4.17 3.80 - 5.30 10(6)/mcL 01/07/2023 9:33 AM [facility] HEMOGLOBIN (HGB) 12.4 12.0 - 15.8 g/dL 01/07/2023 9:33 AM [facility] HEMATOCRIT (HCT) 38.8 36.0 - 47.0 % 01/07/2023 9:33 AM [facility] MCV 93.0 82.0 - 96.0 fL 01/07/2023 9:33 AM [facility] MCH 29.7 26.0 - 34.0 pg 01/07/2023 9:33 AM [facility] MCHC 32.0 31.0 - 36.0 g/dL 01/07/2023 9:33 AM [facility] PLATELET COUNT 222 140 - 440 10(3)/[facility] 01/07/2023 9:33 AM [facility] RDW 13.5 11.8 - 15.5 % 01/07/2023 9:33 AM [facility] MPV 11.4 9.7 - 12.4 fL 01/07/2023 9:33 AM [facility] NEUTROPHILS 73.4(H) 47.0 - 73.0 % 01/07/2023 9:33 AM [facility] LYMPHOCYTES 16.8(L) 18.0 - 42.0 % 01/07/2023 9:33 AM [facility] MONOCYTES 6.0 4.0 - 12.0 % 01/07/2023 9:33 AM [facility] EOSINOPHILS 3.4 0.0 - 5.0 % 01/07/2023 9:33 AM [facility] BASOPHILS 0.4 0.0 - 1.0 % 01/07/2023 9:33 AM [facility] ABSOLUTE NEUTROPHILS 5.03 1.60 - 7.70 10(3)/[facility] 01/07/2023 9:33 AM [facility] ABSOLUTE LYMPHOCYTES 1.15(L) 1.30 - 3.20 10(3)/[facility] 01/07/2023 9:33 AM PUBLIC SPEAKING PROFESSOR [facility] ABSOLUTE MONOCYTES 0.41 0.20 - 1.00 10(3)/[facility] 01/07/2023 9:33 AM PUBLIC SPEAKING PROFESSOR [facility] ABSOLUTE EOSINOPHIL 0.23 0.00 - 0.40 10(3)/[facility] 01/07/2023 9:33 AM PUBLIC SPEAKING PROFESSOR [facility] ABSOLUTE BASOPHILS 0.03 0.00 - 0.10 10(3)/[facility] 01/07/2023 9:33 AM PUBLIC SPEAKING PROFESSOR [facility] NRBC PER 100 WBC 0 01/08/20 9:33 AM PUBLIC SPEAKING PROFESSOR [facility] Blood Venipuncture / Unknown 01/07/2023 9:10 AM PUBLIC SPEAKING PROFESSOR 01/07/2023 9:27 AM PUBLIC SPEAKING PROFESSOR Robert Ball MD HEMATOLOGY ORDERABLES Final Result Performing Organization Address City/[facility]/ZIP Co de Phone Number [facility] [address] [place] [address] * (ABNORMAL) B-Type Natriuretic Peptide (BNP) (01/07/2023 9:10 AM PUBLIC SPEAKING PROFESSOR) [facility] B TYPE NATRIURETIC PEPTIDE 307(H) <100 pg/mL 01/07/2023 10:16 AM PUBLIC SPEAKING PROFESSOR [facility] Blood Venipuncture / Unknown 01/07/2023 9:10 AM PUBLIC SPEAKING PROFESSOR 01/07/2023 9:27 AM PUBLIC SPEAKING PROFESSOR Robert Ball MD CHEMISTRY ORDERABLES F inal Result [facility] [address] [place] [address] * Magnesium (01/07/2023 9:10 AM PUBLIC SPEAKING PROFESSOR) Pathologist [facility] MAGNESIUM 1.8 1.6 - 2.6 mg/dL 01/07/2023 9:50 AM PUBLIC SPEAKING PROFESSOR [facility] Blood Venipuncture / Unknown 01/07/2023 9:10 AM PUBLIC SPEAKING PROFESSOR 01/07/2023 9:27 AM PUBLIC SPEAKING PROFESSOR Robert Ball MD CHEMISTRY ORDERABLES F inal Result [facility] [address] [place] [address] * (ABNORMAL) CMP (01/07/2023 9:10 AM PUBLIC SPEAKING PROFESSOR) SODIUM 141 136 - 145 mmol/L 01/07/2023 9:50 AM PUBLIC SPEAKING PROFESSOR [facility] POTASSIUM 3.8 3.5 - 5.1 mmol/L 01/07/2023 9:50 AM [facility] CHLORIDE 102 98 - 107 mmol/L 01/07/2023 9:50 AM [facility] CO2, VENOUS 29 22 - 30 mmol/L 01/07/2023 9:50 AM [facility] ANION GAP 13.8 <18.0 mmol/L 01/07/2023 9:50 AM [facility] GLUCOSE 121(H) 70 - 99 mg/dL 01/07/2023 9:50 AM [facility] BUN 6(L) 10 - 20 mg/dL 01/07/2023 9:50 AM [facility] CREATININE, BLOOD 0.65 0.60 - 1.00 mg/dL 01/07/2023 9:50 AM [facility] BUN/CREATININE RATIO 9(L) 12 - 20 ratio 01/07/2023 9:50 AM [facility] TOTAL PROTEIN 6.8 6.3 - 8.2 g/dL 01/07/2023 9:50 AM [facility] ALBUMIN 3.6 3.5 - 5.0 g/dL 01/07/2023 9:50 AM [facility] A/G RATIO 1.1 1.0 - 2.2 01/07/2023 9:50 AM [facility] CALCIUM 9.2 8.7 - 10.5 mg/dL 01/07/2023 9:50 AM PUBLIC SPEAKING PROFESSOR [facility] T BILI 0.7 0.2 - 1.2 mg/dL 01/07/2023 9:50 AM PUBLIC SPEAKING PROFESSOR [facility] SGOT (AST) 17 5 - 34 U/L 01/07/2023 9:50 AM PUBLIC SPEAKING PROFESSOR [facility] SGPT (ALT) 19 0 - 55 U/L 01/07/2023 9:50 AM PUBLIC SPEAKING PROFESSOR [facility] ALKALINE PHOSPHATASE 93 40 - 150 U/L 01/07/2023 9:50 AM PUBLIC SPEAKING PROFESSOR [facility] GFR, ESTIMATED >60 >=60 01/07/2023 9:50 AM [facility] Comment: Creatinine Clearance is the preferred criteria for selecting drug dose adjustments in renally impaired patients. ??The GFR is provided as additional pertinent clinical information. GFR is reported in mL/min/1.73 sq m. Calculation based on the Chronic Kidney Disease Epidemiology Collaboration (CKD- EPI) equation refit without adjustment for race. GFR, EST. >60 >=60 023 9:50 AM PUBLIC SPEAKING PROFESSOR [facility] GFR, EST. NONAFRICAN >60 >=60 01/07/2023 9:50 AM PUBLIC SPEAKING PROFESSOR [facility] Blood Venipuncture / Unknown 01/07/2023 9:10 AM PUBLIC SPEAKING PROFESSOR 01/07/2023 9:27 AM PUBLIC SPEAKING PROFESSOR us Robert Ball MD CHEMISTRY ORDERABLES F inal Result [facility] [address] [place] [address] * EKG SCAN (01/07/2023 12:00 AM PUBLIC SPEAKING PROFESSOR) 01/07/2023 us Provider Scan IMG ECG ORDERABLES Final Result SCAN documented in this encounter Visit Diagnoses Diagnosis Shortness of breath- Primary Hypertension Unspecified essential hypertension documented in this encounter Administered Medications Inactive Administered Medications - up to 3 most recent administrations Medication Order MAR Action Action Date Dose Rate Site furosemide (LASIX) injection 40 mg 40 mg, Intravenous, ONCE, 1 dose, On 01/07/23 at 1130 Given 01/07/2023 11:15 AM PUBLIC SPEAKING PROFESSOR 40 mg hydrALAZINE (APRESOLINE) injection 20 mg 20 mg, Intravenous, ONCE, 1 dose, On 01/07/23 at 1100 Given 01/07/2023 11:09 AM PUBLIC SPEAKING PROFESSOR 20 mg metoprolol tartrate (LOPRESSOR) injection 5 mg 5 mg, Intravenous, ONCE, 1 dose, On 01/07/23 at 1330, Scheduled IV lopressor is permitted on general [...] considered for transition off intravenous beta-pedro. Given 01/07/2023 1:11 PM PUBLIC SPEAKING PROFESSOR 5 mg documented in this encounter Active and Recently Administered Medications Times are shown in PUBLIC SPEAKING PROFESSOR. Scheduled Medication Order 01/05/2023 01/06/2023 01/07/2023 furosemide (LASIX) injection 40 mg (COMPLETED) 40 mg, Intravenous, ONCE, 1 dose, On 01/07/23 at 1130 1115 (Given - Provid er: Abel Andres RN) hydrALAZINE (APRESOLINE) injection 20 mg (COMPLETED) 20 mg, Intravenous, ONCE, 1 dose, On 01/07/23 at 1100 1109 (Given - Provid er: Abel Andres RN) metoprolol tartrate (LOPRESSOR) injection 5 mg (COMPLETED) 5 mg, Intravenous, ONCE, 1 dose, On 01/07/23 at 1330, Scheduled IV lopressor is permitted on general care units with house-wide telemetry.Bedside cardiac monitoring is required for PRN use and Once orders. In all cases, vitals should be taken before administration and 15 minutes after each dose. Administer by slow IV push over 5 minutes. Notify provider if patient is taking enteral medications so patient can be considered for transition off intravenous beta-pedro. 1311 (Given - Provid er: Abel Andres, RN) documented in this encounter Care Teams Product Design Engineer Relationship Specialty Start Date End Date Daja Kern MD [address] [place] [address] PCP - General Internal Medicine 03/13/15 documented as of this encounter
--- OUTSIDE RECORDS SUMMARY | 2024-03-03 19:27 | XMS_ITS | Encounter Summary ---
Author Organization [facility] Address [address] [address] Phone Care Team Providers Care Automotive Airconditioning Mechanic Name Role Phone Daja Kern MD Primary Care Provider [phone] Reason for Visit * Auth/Cert (Routine) Specialty Diagnoses / Procedures Referred By Contac t Referred To Contact Referral ID Status Reason Start Date Expiration Date Visits Re quested Visits Authorized 1 1 Encounter Details Date Type Department Care Team (Late st Contact Info) Description 03/09/2022 9:30 AM INSPECTOR PACKAGER [facility] [address] [place] [address] Bailey Hoover OTA [place] OT - HOME VISIT Social History Tobacco [...] Coronavirus/COVID-19? No / Unsure 03/09/2022 10:02 AM INSPECTOR PACKAGER documented as of this encounter Last Filed Vital Signs Vital Sign Reading Time Taken Comments Blood Pressure 123/88 03/09/2022 10:16 AM INSPECTOR PACKAGER Pulse 104 03/09/2022 10:16 AM INSPECTOR PACKAGER Temperature 36.7 ??C (98 ??F) 03/09/2022 10:16 AM INSPECTOR PACKAGER Respiratory Rate 18 03/09/2022 10:16 AM INSPECTOR PACKAGER Oxygen Saturation 92% 03/09/2022 10:16 AM INSPECTOR PACKAGER Inhaled Oxygen Concentration - - Weight - - Height - - Body Mass Index - - documented in this encounter Plan of Treatment Upcoming Encounters Date Type Department Care Team (Late st Contact Info) Description 03/27/2024 8:30 AM INSPECTOR PACKAGER [facility] [address] [place] [address] Burt Eastman MD [address] [address] 03/27/2024 8:30 AM INSPECTOR PACKAGER - 03/27/2024 9:00 AM INSPECTOR PACKAGER [facility] [address] [place] [address] Burt Eastman MD [address] [address] COLONOSCOPY 04/09/2024 1:15 PM INSPECTOR PACKAGER Office Visit [facility] - Pulmonology & Sleep Medicine [facility] [address] [place] [address] Barno Vergara MD [address] [place] [address] Scheduled Procedures Name Priority Associated Diagnoses Date/Ti me COLONOSCOPY HISTORY OF COLON POLYPS 03/27/2024 8:30 AM INSPECTOR PACKAGER documented as of this encounter Visit Diagnoses [...] OT COMPREHENSIVE Disciplines: Occupational Therapy 02/24/2022 Active 3 goals linked to scheduled/document ed interventions 3 goal interventions scheduled/document ed in this visit Goals Goal Associated Problem Outcome Goal Met? Visit Notes Occupational Therapy General Description: After assessing the patient and discussing the patient's goals the following were identified. Patient Centered Shelter Goal: safely be able to shower on her own Target date: 03/18/22 OCCUPATIONAL THERAPY GENERAL ORDER (O) No OT Dressing Description: Short Term Goal: Patient will complete total body dressing with independence and good understanding of safety/technique. To be met by 03/18/22. OT COMPREHENSIVE No OT Bathing Description: Short Term Goal: Patient will complete total body bathing at tub level while sitting with shower seat and grab bars with independence and good understanding of safety/technique. To be met by 03/18/22. OT COMPREHENSIVE No OT Transfers Description: Short Term Goal: Patient will complete toilet transfer with adaptive equipment of grab bar and cane with independence and good understanding of safety/technique. To be met by 03/13/22. Shelter Goal: Patient will complete tub transfer with [...] ORDER (O) Goal:Occupational Therapy General Completed OT Dressing Description: Instruct on dressing techniques and safety. ADL equipment as needed. Problem:OT COMPREHENSIVE Goal:OT Dressing Completed Patient performed dressing for upper body and lower body with verbal cues and fair activity tolerance. Caregiver training provided NA. Skill provided to improve this function consisted of Pt completed UB dressing of doffing robe and night gown prior to shower with SBA of v/c to complete while seated. Pt displayed good understanding and follow through with completion of dressing tasks of donning night gown while seated following shower. Compliance of follow through is good. Progress toward goal: MET with UB dressing OT Bathing Description: Instruct on bathing techniques and safety. ADL equipment as needed. Problem:OT COMPREHENSIVE Goal:OT Bathing Completed Patient performed bathing for total body and hair washing at shower level while sitting with shower seat and grab bars with verbal cues and fair activity tolerance. Caregiver training provided for NA. Skill provided to improve this function consisted of Pt completed shower task with SUP/SBA of safety and EC education prior to task including gathering all needed items and placing at seated reach, monitoring of humidity in bathroom, avoid or limit need to bending over and reach overhead, visual demonstration on hair washing technique of keeping arms bent at elbows and leaning head forward instead of raising arms overhead, use of long handled bath sponge or loofah to wash BLE and back, completion of drying task while seated and inside shower, completing task at slower pace, taking rest breaks and performing PLB as needed. Pt displayed good understanding and follow through. Compliance of follow through is fair. Progress toward goal: progressing OT Transfers Description: Instruct on transfer techniques and safety. Equipment as needed. Problem:OT COMPREHENSIVE Goal:OT Transfers Completed Patient performed transfer with adaptive equipment of grab bar, shower seat with supervision and fair activity tolerance. Caregiver training provided NA. Skill provided to improve this function consisted of Pt completed shower transfer including stepping over tub threshold and sit <> stand transfer from shower seat with SUP/Mod I for safety and 100% return on previous safety instruction. Compliance of follow through is good. Progress toward goal: MET documented in this encounter Care Teams Automotive Airconditioning Mechanic Relationship Specialty Start Date End Date Daja Kern MD [address] [place] [address] PCP - General Internal Medicine 03/13/15 documented as of this encounter
--- OUTSIDE RECORDS SUMMARY | 2024-03-03 19:27 | XMS_ITS | Encounter Summary ---
Author Organization [facility] Address [address] [place] [address] Phone Care Team Providers Care Legal Recovery Specialist Name Role Phone Daja Kern MD Primary Care Provider [phone] Reason for Visit * Auth/Cert (Routine) Specialty Diagnoses / Procedures Referred By Contac t Referred To Contact Referral ID Status Reason Start Date Expiration Date Visits Re quested Visits Authorized 1 1 Encounter Details Date Type Department Care Team (Late st Contact Info) Description 03/07/2022 3:30 PM TABLE WORKER PACKAGER [facility] [address] [place] [address] Bailey Hoover OTA [place] OT - HOME VISIT Social History Tobacco [...] Coronavirus/COVID-19? No / Unsure 02/24/2022 12:13 PM TABLE WORKER PACKAGER documented as of this encounter Last Filed Vital Signs Vital Sign Reading Time Taken Comments Blood Pressure 127/87 03/07/2022 3:32 PM TABLE WORKER PACKAGER Pulse 99 03/07/2022 3:32 PM TABLE WORKER PACKAGER Temperature 36.1 ??C (96.9 ??F) 03/07/2022 3 :32 PM TABLE WORKER PACKAGER Respiratory Rate 20 03/07/2022 3:32 PM TABLE WORKER PACKAGER Oxygen Saturation 94% 03/07/2022 3:3 2 PM TABLE WORKER PACKAGER Inhaled Oxygen Concentration - - Weight 120.2 kg (265 lb) 03/07/2022 3:3 2 PM TABLE WORKER PACKAGER Pt stated weight - no scale at home Height - - Body Mass Index 48.47 02/15/2022 3:12 PM TABLE WORKER PACKAGER documented in this encounter Plan of Treatment Upcoming Encounters Date Type Department Care Team (Late st Contact Info) Description 03/27/2024 8:30 AM TABLE WORKER PACKAGER [facility] [address] [place] [address] Burt Eastman MD [address] [address] 03/27/2024 8:30 AM TABLE WORKER PACKAGER - 03/27/2024 9:00 AM TABLE WORKER PACKAGER [facility] [address] [place] [address] Burt Eastman MD [address] [address] COLONOSCOPY 04/09/2024 1:15 PM TABLE WORKER PACKAGER [facility] [address] [place] [address] Baron Vergara MD [address] [place] [id number] Scheduled Procedures Name Priority Associated Diagnoses Date/Ti me COLONOSCOPY HISTORY OF COLON POLYPS 03/27/2024 8:30 AM TABLE WORKER PACKAGER documented as of this encounter Visit Diagnoses Not on filedocumented in this encounter Home Health Visit - Care Plan Visit Details Visit Type -OT - HOME VISIT Discipline -Occupational Therapy Problems Problem Description Start Date Status Goals Interve ntions ALL VITAL SIGN PARAMETERS Disciplines: All Home Care 02/11/2022 Active - 1 problem intervention scheduled/document ed in this visit [facility] COVID-19 Disciplines: SN, PT, OT, INBOUND CALL CENTER AGENT, EMERGENCY ROOM PHYSICIAN ASSISTANT, RT 02/11/2022 Active 1 goal linked to scheduled/document ed intervention 1 goal intervention scheduled/document ed in this visit OCCUPATIONAL [...] and home management strategies by date 02/26/22 /[facility] COVID-19 No Occupational Therapy General Description: After assessing the patient and discussing the patient's goals the following were identified. Patient Centered Variety Saw Operator Goal: safely be able to shower on her own Target date: 03/18/22 OCCUPATIONAL THERAPY GENERAL ORDER (O) No OT Energy Conservation Description: Short Term Goal: [...] of safety/technique. To be met by 03/13/22. Snf Goal: Patient will complete tub transfer with adaptive equipment of grab bars and seat with independence and good understanding of safety/technique. To be met by 03/18/22. OT COMPREHENSIVE No Interventions Intervention Associated Problem/Goal Status Variance Visit Notes All Vital Sign Parameters (Order Only) Description: [...] measures. Problem:ALL HH VITAL SIGN PARAMETERS Completed COVID-19 Evaluation/Education Description: Perform COVID-19 monitoring and education including symptoms to report, social distancing, aerosolizing procedures, and COVID-19 precautions. Problem:/[facility] COVID-19 Goal:COVID-19 Completed no longer infectious OT Evaluation (Order Only) Description: 51 year [...] ORDER (O) Goal:Occupational Therapy General Completed OT Energy Conservation Description: Instruct on energy conservation techniques. Problem:OT COMPREHENSIVE Goal:OT Energy Conservation Completed Patient educated on utilizing energy conservation principles for rest breaks, diaphragmatic breathing, pursed mouth breathing and activity planning with verbal cues and good verbal understanding Caregiver training provided NA Skill provided to improve this function consisted of Pt issued EC handout with education on basic EC principles for ADL and IADL tasks including allowing increased time to complete tasks, avoid rushing, do not schedule multiple tasks in one day, breaking heavy work tasks into smaller tasks, planning ahead, prioritizing tasks by importance, using AE, avoiding positions that expend energy, sit to complete tasks when possible, use good posture and good body mechanics and PLB technique to perform when SOB occurs. Pt displayed good verbal understanding. Will continue to address task specific EC principles at OT goals are addressed. Compliance of follow through is good. Progress toward goal: progressing OT Transfers Description: Instruct on transfer techniques and safety. Equipment as needed. Problem:OT COMPREHENSIVE Goal:OT Transfers Completed Patient performed transfer with adaptive equipment of shower seat, grab bars with supervision and good activity tolerance. Caregiver training provided NA. Skill provided to improve this function consisted of Pt completed shower transfer with SBA of safety education on technique to step over threshold with RLE/stronger leg, then sit to lift LLE/weaker leg over threshold while holding grab bar for increased safety. Pt displayed good return on instruction and verbalized safety with task. Pt completed sit <> stand transfer from toilet with Mod I and good use of grab bar for stability. Compliance of follow through is good. Progress toward goal: progressing documented in this encounter Care Teams Legal Recovery Specialist Relationship Specialty Start Date End Date Daja Kern MD [address] [place] [address] PCP - General Internal Medicine 03/13/15 documented as of this encounter
--- OUTSIDE RECORDS SUMMARY | 2024-03-03 19:27 | XMS_ITS | Encounter Summary ---
Author Organization [facility] Address [address] [place] [address] Phone Care Team Providers Care Brick Tosser Name Role Phone Daja Kern MD Primary Care Provider [phone] Encounter Details Date Type Department Care Team (Late st Contact Info) Description 12/20/2022 4:53 PM CDT - 12/20/2022 5:14 PM CDT Emergency [facility] Emergency [address] [place] [address] Discharge Disposition: LWBS Social History [...] suspected to have Coronavirus/COVID-19? No / Unsure 11/29/2022 2:59 PM CDT documented as of this encounter Medications [...] mouth 2 times daily as needed. 3 diazePAM (VALIUM) 5 MG TabletIndications: Muscle cramp Take 1 Tablet by mouth every 8 hours as needed for Muscle spasms. 8 Tablet 10/02/2022 3 hydrOXYzine (ATARAX) 25 MG Tablet Take [...] st Contact Info) Description 03/27/2024 8:30 AM SURGICAL TECHNOLOGY INSTRUCTOR Hospital Encounter [facility] Lab [address]iop [address] [place] [address] Burt Eastman MD [address] [address] 03/27/2024 8:30 AM SURGICAL TECHNOLOGY INSTRUCTOR - 03/27/2024 9:00 AM SURGICAL TECHNOLOGY INSTRUCTOR [facility] [address] [place] [address] Burt Eastman MD [address] [address] COLONOSCOPY 04/09/2024 1:15 PM SURGICAL TECHNOLOGY INSTRUCTOR [facility] [address] [place] [address] Baron Vergara MD [address] [place] [address] Scheduled Procedures Name Priority Associated Diagnoses Date/Ti me COLONOSCOPY HISTORY OF COLON POLYPS 03/27/2024 8:30 AM SURGICAL TECHNOLOGY INSTRUCTOR documented as of this encounter Visit Diagnoses Not on filedocumented in this encounter Care Teams Brick Tosser Relationship Specialty Start Date End Date Daja Kern MD [address] [place], [place] [id number] PCP - General Internal Medicine 03/13/15 documented as of this encounter
--- OUTSIDE RECORDS SUMMARY | 2024-03-03 19:27 | XMS_ITS | Encounter Summary ---
Author Organization [facility] C4 Imaging [facility] Care Team Providers Care Knitting Teacher Name Role Phone Daja Kern MD Primary Care Provider [phone] Encounter Details Date Type Department Care Team (Latest Contact Info) Description 03/09/2022 Travel Social History Tobacco Use Types Packs/Day [...] Coronavirus/COVID-19? No / Unsure 03/09/2022 10:02 AM PSYCHOLOGY PHYSICIAN documented as of this encounter Plan of Treatment Upcoming Encounters Date Type Department Care Team (Late st Contact Info) Description 03/27/2024 8:30 AM PSYCHOLOGY PHYSICIAN [facility] [place] [address] Burt Eastman MD 2 [facility] [address] [address] 03/27/2024 8:30 AM PSYCHOLOGY PHYSICIAN - 03/27/2024 9:00 AM PSYCHOLOGY PHYSICIAN [facility] 1 [place] [address] Burt Eastman MD [address] [address] COLONOSCOPY 04/09/2024 1:15 PM PSYCHOLOGY PHYSICIAN [facility] #2 [place] [address] Baron Vergara MD #2 [place] [address] Scheduled Procedures Name Priority Associated Diagnoses Date/Ti me COLONOSCOPY HISTORY OF COLON POLYPS 03/27/2024 8:30 AM PSYCHOLOGY PHYSICIAN documented as of this encounter Visit Diagnoses Not on filedocumented in this encounter Care Teams Knitting Teacher Relationship Specialty Start Date End Date Daja Kern MD [address] [place] [address] PCP - General Internal Medicine 03/13/15 documented as of this encounter
--- OUTSIDE RECORDS SUMMARY | 2024-03-03 19:27 | XMS_ITS | Encounter Summary ---
Author Organization [facility] [employer] [facility] Care Team Providers Care Pension Agent Name Role Phone Daja Kern MD Primary Care Provider [phone] Encounter Details Date Type Department Care Team (Latest Contact Info) Description 01/02/2023 Travel Social History Tobacco Use Types Packs/Day [...] Coronavirus/COVID-19? No / Unsure 01/02/2023 1:06 PM WEBSPHERE PROCESS SERVER DEVELOPER documented as of this encounter Plan of Treatment Upcoming Encounters Date Type Department Care Team (Late st Contact Info) Description 03/27/2024 8:30 AM WEBSPHERE PROCESS SERVER DEVELOPER [facility] 1 [place] [address] Burt Eastman MD [address] [address] 03/27/2024 8:30 AM WEBSPHERE PROCESS SERVER DEVELOPER - 03/27/2024 9:00 AM WEBSPHERE PROCESS SERVER DEVELOPER [facility] 1 [place] [address] Burt Eastman MD [address] [address] COLONOSCOPY 04/09/2024 1:15 PM WEBSPHERE PROCESS SERVER DEVELOPER [facility] #2 [place] [address] Baron Vergara MD #2 [place] [address] Scheduled Procedures Name Priority Associated Diagnoses Date/Ti me COLONOSCOPY HISTORY OF COLON POLYPS 03/27/2024 8:30 AM WEBSPHERE PROCESS SERVER DEVELOPER documented as of this encounter Visit Diagnoses Not on filedocumented in this encounter Care Teams Pension Agent Relationship Specialty Start Date End Date Daja Kern MD [address] [place] [address] PCP - General Internal Medicine 03/13/15 documented as of this encounter
--- OUTSIDE RECORDS SUMMARY | 2024-03-03 19:27 | XMS_ITS | Encounter Summary ---
Author Organization [facility] [employer] [facility] Care Team Providers Care Performance Improvement Coordinator Name Role Phone Daja Kern MD Primary Care Provider [phone] Encounter Details Date Type Department Care Team (Latest Contact Info) Description 11/29/2022 Travel Social History Tobacco Use Types Packs/Day [...] st Contact Info) Description 03/27/2024 8:30 AM MEDICAL RECORD TECHNICIAN [facility] 1 [facility] [place] [address] Burt Eastman MD 2 [facility] [address] [address] 03/27/2024 8:30 AM MEDICAL RECORD TECHNICIAN - 03/27/2024 9:00 AM MEDICAL RECORD TECHNICIAN [facility] 1 [place] [address] Burt Eastman MD [address] [address] COLONOSCOPY 04/09/2024 1:15 PM MEDICAL RECORD TECHNICIAN [facility] #2 [place] [address] Baron Vergara MD #2 [place] [address] Scheduled Procedures Name Priority Associated Diagnoses Date/Ti me COLONOSCOPY HISTORY OF COLON POLYPS 03/27/2024 8:30 AM MEDICAL RECORD TECHNICIAN documented as of this encounter Visit Diagnoses Not on filedocumented in this encounter Care Teams Performance Improvement Coordinator Relationship Specialty Start Date End Date Daja Kern MD [address] [place] [address] PCP - General Internal Medicine 03/13/15 documented as of this encounter
--- OUTSIDE RECORDS SUMMARY | 2024-03-03 19:27 | XMS_ITS | Encounter Summary ---
Author Organization [facility] Address [address] [place] [address] Phone Care Team Providers Care General Scrap Worker Name Role Phone Daja Kern MD Primary Care Provider [phone] Reason for Visit * Auth/Cert (Routine) Specialty Diagnoses / Procedures Referred By Contac t Referred To Contact Referral ID Status Reason Start Date Expiration Date Visits Re quested Visits Authorized 1 1 Encounter Details Date Type Department Care Team (Late Contact Info) Description 03/15/2022 [facility] [address] [place] [address] Bailey Hoover OTA MA CASE COMMUNICATION Social History Tobacco Use Types Packs/Day Years [...] Coronavirus/COVID-19? No / Unsure 03/15/2022 2:52 PM STROBOSCOPE OPERATOR documented as of this encounter Plan of Treatment Upcoming Encounters Date Type Department Care Team (Late Contact Info) Description 03/27/2024 8:30 AM STROBOSCOPE OPERATOR [facility] 1 [place] [address] Burt Eastman MD [address] [address] 03/27/2024 8:30 AM STROBOSCOPE OPERATOR - 03/27/2024 9:00 AM STROBOSCOPE OPERATOR [facility] 1 [place] [address] Burt Eastman MD [address] [address] COLONOSCOPY 04/09/2024 1:15 PM STROBOSCOPE OPERATOR [facility] #2 [place] [address] Baron Vergara MD #2 [place] [address] Scheduled Procedures Name Priority Associated Diagnoses Date/Ti me COLONOSCOPY HISTORY OF COLON POLYPS 03/27/2024 8:30 AM STROBOSCOPE OPERATOR documented as of this encounter Visit Diagnoses Not on filedocumented in this encounter Care Teams General Scrap Worker Relationship Specialty Start Date End Date Daja Kern MD [address] [place] [address] PCP - General Internal Medicine 03/13/15 documented as of this encounter
--- OUTSIDE RECORDS SUMMARY | 2024-03-03 19:27 | XMS_ITS | Encounter Summary ---
Author Organization [facility] Address [address] [place] [address] Phone Care Team Providers Care Press Breaker Name Role Phone Daja Kern MD Primary Care Provider [phone] Reason for Visit * Auth/Cert (Routine) Specialty Diagnoses / Procedures Referred By Contac t Referred To Contact Referral ID Status Reason Start Date Expiration Date Visits Re quested Visits Authorized 1 1 Encounter Details Date Type Department Care Team (Late Contact Info) Description 03/09/2022 [facility] [address] [place] [address] Jessie Ramírez, PT [place] PT - DISCHARGE SUMMARY Social History Tobacco Use Types Packs/Day Years [...] Coronavirus/COVID-19? No / Unsure 02/24/2022 12:13 PM GELATIN DYNAMITE PACKING OPERATOR documented as of this encounter Plan of Treatment Upcoming Encounters Date Type Department Care Team (Late Contact Info) Description 03/27/2024 8:30 AM GELATIN DYNAMITE PACKING OPERATOR [facility] 1 [place] [address] Burt Eastman MD [address] [address] 03/27/2024 8:30 AM GELATIN DYNAMITE PACKING OPERATOR - 03/27/2024 9:00 AM GELATIN DYNAMITE PACKING OPERATOR [facility] [address] [place] [address] Burt Eastman MD [address] [address] COLONOSCOPY 04/09/2024 1:15 PM GELATIN DYNAMITE PACKING OPERATOR [facility] #2 [place] [address] Baron Vergara MD #2 [place] [address] Scheduled Procedures Name Priority Associated Diagnoses Date/Ti me COLONOSCOPY HISTORY OF COLON POLYPS 03/27/2024 8:30 AM GELATIN DYNAMITE PACKING OPERATOR documented as of this encounter Visit Diagnoses Not on filedocumented in this encounter Home Health Visit - Care Plan Visit Details Visit Type -PT - Discharge S chemo Discipline -Physical Therapy Problems Problem Description Start Date Status Goals Interve ntions THERAPY DISEASE MANAGEMENT (O) Disciplines: Physical Therapy 02/15/2022 Active - 1 problem intervention scheduled/document ed in this visit PHYSICAL THERAPY EVALUATION (O) Disciplines: Physical Therapy PT Evaluation 02/15/2022 Active 1 goal linked to scheduled/documen arnulfo intervention 1 goal intervention scheduled/document ed in this visit Goals Goal Associated Problem Outcome Goal Met? Visit Notes Physical Therapy Evaluation Description: After assessing the patient and discussing the patient's goals the following were identified: Patient centered termite treater helper goal: walk longer distances with appropriate vital sign response. Target Date: within 3 weeks PHYSICAL THERAPY EVALUATION (O) No Interventions Intervention Associated Problem/Goal Status Variance Visit Notes Therapy Depression (O) Description: Assess and monitor for signs and symptoms of depression. Problem:THERAPY DISEASE MANAGEMENT (O) Scheduled Physical Therapy General (Order Only) Description: Clinical findings: 51 year old female inpatient 02/08/22-02/10/22 with hypoxia and acute respiratory failure. She was found to have Covid-19 and influenza A on 02/08/22. Patient was back in ED on 02/13/22 with headache, dizziness and cough. Patient answers the door to [facility] walking with cane CGA. She ambulates 100 [...] Problem:PHYSICAL THERAPY EVALUATION (O) Goal:Physical Therapy Evaluation Scheduled documented in this encounter Care Teams Press Breaker Relationship Specialty Start Date End Date Daja Kern MD [address] [place] [address] PCP - General Internal Medicine 03/13/15 documented as of this encounter
--- OUTSIDE RECORDS SUMMARY | 2024-03-03 19:27 | XMS_ITS | Encounter Summary ---
Author Organization [facility] Address [address] [place] [address] Phone Care Team Providers Care Tour Leader Name Role Phone Daja Kern MD Primary Care Provider [phone] Reason for Visit * Auth/Cert (Routine) Specialty Diagnoses / Procedures Referred By Contac t Referred To Contact Referral ID Status Reason Start Date Expiration Date Visits Re quested Visits Authorized [id number] 1 1 Encounter Details Date Type Department Care Team (Late st Contact Info) Description 03/16/2022 12:00 PM TRIP FOLLOWER [facility] [address] [place] [address] Ginette Joy, WATCH AND CLOCK REPAIRER CT WATCH AND CLOCK REPAIRER - HOME VISIT Social History Tobacco Use [...] Coronavirus/COVID-19? No / Unsure 03/15/2022 2:52 PM TRIP FOLLOWER documented as of this encounter Miscellaneous Notes * [facility] - Ginette Joy, WATCH AND CLOCK REPAIRER - 03/16/2022 12:45 PM CST Care summary for WATCH AND CLOCK REPAIRER. Summary of care 1) completed needs assessment 2) Alona signed a Dept of Rehab Release of Information and document was faxed to Dr. Concha MD. SMART goal Alona will have access to in-home help. Plan for next visit goals met, no additional WATCH AND CLOCK REPAIRER visits scheduled. Plan of care updates completed and provided to patient/caregiver: No, no updates today FOLLOWER documented in this encounter Plan of Treatment Upcoming Encounters Date Type Department Care Team (Late st Contact Info) Description 03/27/2024 8:30 AM TRIP FOLLOWER [facility] 1 [place] [address] Burt Eastman MD [address] [address] 03/27/2024 8:30 AM TRIP FOLLOWER - 03/27/2024 9:00 AM TRIP FOLLOWER [facility] 1 [place] [address] Burt Eastman MD [address] [address] COLONOSCOPY 04/09/2024 1:15 PM TRIP FOLLOWER Office Visit [facility] - Pulmonology & Sleep Medicine - [place] [address] [place] [address] Baron Vergara MD #2 [facility] [place] [address] Scheduled Procedures Name Priority Associated Diagnoses Date/Ti me COLONOSCOPY HISTORY OF COLON POLYPS 03/27/2024 8:30 AM TRIP FOLLOWER documented as of this encounter Visit Diagnoses Not on filedocumented in this encounter Home Health Visit - Care Plan Visit Details Visit Type -WATCH AND CLOCK REPAIRER - HOME VISIT Discipline -Medical Social Work Problems Problem Description Start Date Status Goals Interve ntions WATCH AND CLOCK REPAIRER Disciplines: Staff Mechanical Engineer WATCH AND CLOCK REPAIRER 02/23/2022 Active 1 goal linked to scheduled/documente d intervention 2 goal interventions scheduled/documente d in this visit Goals Goal Associated Problem Outcome Goal Met? Visit Notes WATCH AND CLOCK REPAIRER Description: 1. Patient will demonstrate motivation toward [...] needs. within 2 visits 5. Patient centered snf goal: Alona will have access to in-home help. WATCH AND CLOCK REPAIRER No Interventions Intervention Associated Problem/Goal Status Variance Visit Notes WATCH AND CLOCK REPAIRER Pain Problem:WATCH AND CLOCK REPAIRER Goal:WATCH AND CLOCK REPAIRER Completed Is the patient in physical pain or do they have other symptoms to be reported to the rn field case manager? yes. Notified Sr. Jeana Butcher RN. WATCH AND CLOCK REPAIRER In-Home Services Description: Educate/ explore/ facilitate in home services. Problem:WATCH AND CLOCK REPAIRER Goal:WATCH AND CLOCK REPAIRER Completed In home services facilitated Alona's signature on Dept of Rehab Release of Information and document was faxed to Dr. Concha MD. documented in this encounter Home Health Visit - Actions and Narratives Actions Care summary for WATCH AND CLOCK REPAIRER. Summary of care 1) completed needs assessment 2) Alona signed a Dept of Rehab Release of Information and document was faxed to Dr. Concha MD. SMART goal Alona will have access to in-home help. Plan for next visit goals met, no additional WATCH AND CLOCK REPAIRER visits scheduled. Plan of care updates completed and provided to patient/caregiver: No, no updates today documented in this encounter Care Teams Tour Leader Relationship Specialty Start Date End Date Daja Kern MD [address] [place] [address] PCP - General Internal Medicine 03/13/15 documented as of this encounter
--- OUTSIDE RECORDS SUMMARY | 2024-03-03 19:27 | XMS_ITS | Encounter Summary ---
Author Organization [facility] Address [address] [place] [address] Phone Care Team Providers Care Outdoor Power Equipment Mechanic Name Role Phone Daja Kern MD Primary Care Provider [phone] Reason for Visit * Auth/Cert (Routine) Specialty Diagnoses / Procedures Referred By Contac t Referred To Contact Referral ID Status Reason Start Date Expiration Date Visits Re quested Visits Authorized 1 1 Encounter Details Date Type Department Care Team (Late st Contact Info) Description 03/03/2022 1:00 PM CHIEF CLERK SHELTER [facility] [address] [place] [address] Sr Jeana Butcher RN [place] DISEASE MGT PHONE Social History Tobacco Use Types Packs/Day Years [...] Coronavirus/COVID-19? No / Unsure 02/24/2022 12:13 PM CHIEF CLERK SHELTER documented as of this encounter Last Filed Vital Signs Vital Sign Reading Time Taken Comments Blood Pressure 156/90 03/03/2022 10:40 AM CHIEF CLERK SHELTER Pulse - - Temperature - - Respiratory Rate - - Oxygen Saturation 97% 03/03/2022 10:40 AM CHIEF CLERK SHELTER Inhaled Oxygen Concentration - - Weight - - Height - - Body Mass Index - - documented in this encounter Plan of Treatment Upcoming Encounters Date Type Department Care Team (Late st Contact Info) Description 03/27/2024 8:30 AM CHIEF CLERK SHELTER [facility] [address] [place] [address] Burt Eastman MD [address] [address] 03/27/2024 8:30 AM CHIEF CLERK SHELTER - 03/27/2024 9:00 AM CHIEF CLERK SHELTER [facility] 1 [place] [address] Burt Eastman MD [address] [address] COLONOSCOPY 04/09/2024 1:15 PM CHIEF CLERK SHELTER Office Visit [facility] - Pul[facility]ology & Sleep Medicine [facility] [address] [place] [address] Baron Vergara MD #2 [place] [address] Scheduled Procedures Name Priority Associated Diagnoses Date/Ti me COLONOSCOPY HISTORY OF COLON POLYPS 03/27/2024 8:30 AM CHIEF CLERK SHELTER documented as of this encounter Visit Diagnoses Not on filedocumented in this encounter Care Teams Outdoor Power Equipment Mechanic Relationship Specialty Start Date End Date Daja Kern MD [address] [place], [place] [id number] PCP - General Internal Medicine 03/13/15 documented as of this encounter
--- OUTSIDE RECORDS SUMMARY | 2024-03-03 19:27 | XMS_ITS | Encounter Summary ---
Author Organization [facility] [employer] [facility] Care Team Providers Care Superintendent Water And Sewer Systems Name Role Phone Daja Kern MD Primary Care Provider [phone] Encounter Details Date Type Department Care Team (Latest Contact Info) Description 06/22/2022 Travel Social History Tobacco Use Types Packs/Day [...] suspected to have Coronavirus/COVID-19? No / Unsure 06/22/2022 1:15 PM CDT documented as of this encounter Plan of Treatment Upcoming Encounters Date Type Department Care Team (Late st Contact Info) Description 03/27/2024 8:30 AM BEARING GRINDER [facility] 1 [facility] [place] [address] Burt Eastman MD 2 [facility] [address] [address] 03/27/2024 8:30 AM BEARING GRINDER - 03/27/2024 9:00 AM BEARING GRINDER [facility] 1 [place] [address] Burt Eastman MD [address] [address] COLONOSCOPY 04/09/2024 1:15 PM BEARING GRINDER [facility] #2 [place] [address] Baron Vergara MD #2 [place] [address] Scheduled Procedures Name Priority Associated Diagnoses Date/Ti me COLONOSCOPY HISTORY OF COLON POLYPS 03/27/2024 8:30 AM BEARING GRINDER documented as of this encounter Visit Diagnoses Not on filedocumented in this encounter Additional Health Concerns Infection Onset Date Last Indicated Resolved Time COVID - 19 06/22/2022 06/22/2022 07/02/2022 12:1 6 AM CDT documented as of this encounter Care Teams Superintendent Water And Sewer Systems Relationship Specialty Start Date End Date Daja Kern MD [address] [place] [address] PCP - General Internal Medicine 03/13/15 documented as of this encounter
--- OUTSIDE RECORDS SUMMARY | 2024-03-03 19:27 | XMS_ITS | Encounter Summary ---
Author Organization [facility] Address [address] [place] [address] Phone Care Team Providers Care Social Studies Teacher Name Role Phone Daja Kern MD Primary Care Provider [phone] Reason for Visit * Auth/Cert (Routine) Specialty Diagnoses / Procedures Referred By Contac t Referred To Contact Referral ID Status Reason Start Date Expiration Date Visits Re quested Visits Authorized [id number] 1 1 Encounter Details Date Type Department Care Team (Late st Contact Info) Description 03/11/2022 8:30 AM GEOSCIENCES FACULTY MEMBER [facility] [address] [place] [address] Ginette Joy, PULP PRESS TENDER [place] PULP PRESS TENDER - HOME VISIT Social History Tobacco Use [...] Coronavirus/COVID-19? No / Unsure 03/09/2022 10:02 AM GEOSCIENCES FACULTY MEMBER documented as of this encounter Miscellaneous Notes * Home Health - Ginette Joy MSW - 03/11/2022 2:30 PM CST Care summary for PULP PRESS TENDER. Summary of care 1) completed needs assessment 2) provided education regarding [employer] homemaker service application process. SMART goal Alona will have access to in-home help. Plan for next visit goals met, no additional PULP PRESS TENDER visits scheduled. Plan of care updates completed and provided to patient/caregiver: No, no updates today. CIENCES FACULTY MEMBER documented in this encounter Plan of Treatment Upcoming Encounters Date Type Department Care Team (Late st Contact Info) Description 03/27/2024 8:30 AM GEOSCIENCES FACULTY MEMBER [facility] [address] [place] [address] Burt Eastman MD [address] [address] 03/27/2024 8:30 AM GEOSCIENCES FACULTY MEMBER - 03/27/2024 9:00 AM GEOSCIENCES FACULTY MEMBER [facility] [address] [place] [address] Burt Eastman MD [address] [address] COLONOSCOPY 04/09/2024 1:15 PM GEOSCIENCES FACULTY MEMBER [facility] #2 [place] [address] Baron Vergara MD #2 [place] [address] Scheduled Procedures Name Priority Associated Diagnoses Date/Ti me COLONOSCOPY HISTORY OF COLON POLYPS 03/27/2024 8:30 AM GEOSCIENCES FACULTY MEMBER documented as of this encounter Visit Diagnoses Not on filedocumented in this encounter Home Health Visit - Care Plan Visit Details Visit Type -PULP PRESS TENDER - HOME VISIT Discipline -Medical Social Work Problems Problem Description Start Date Status Goals Interve ntions PULP PRESS TENDER Disciplines: Marketing Planner PULP PRESS TENDER 02/23/2022 Active 1 goal linked to scheduled/documente d intervention 2 goal interventions scheduled/documente d in this visit Goals Goal Associated Problem Outcome Goal Met? Visit Notes PULP PRESS TENDER Description: 1. Patient will demonstrate motivation toward [...] needs. within 2 visits 5. Patient centered fpc goal: Alona will have access to in-home help. PULP PRESS TENDER No Interventions Intervention Associated Problem/Goal Status Variance Visit Notes PULP PRESS TENDER Pain Problem:PULP PRESS TENDER Goal:PULP PRESS TENDER Completed Is the patient in physical pain or do they have other symptoms to be reported to the supervisor case loading? yes. Notified Sr. Jeana Butcher RN. PULP PRESS TENDER In-Home Services Description: Educate/ explore/ facilitate in home services. Problem:PULP PRESS TENDER Goal:PULP PRESS TENDER Completed In home services facilitated education regarding [employer] homemaker service application process. documented in this encounter Home Health Visit - Actions and Narratives Actions Care summary for PULP PRESS TENDER. Summary of care 1) completed needs assessment 2) provided education regarding [employer] homemaker service application process. SMART goal Alona will have access to in-home help. Plan for next visit goals met, no additional PULP PRESS TENDER visits scheduled. Plan of care updates completed and provided to patient/caregiver: No, no updates today. documented in this encounter Care Teams Social Studies Teacher Relationship Specialty Start Date End Date Daja Kern MD [address] [place] [address] PCP - General Internal Medicine 03/13/15 documented as of this encounter
--- OUTSIDE RECORDS SUMMARY | 2024-03-03 19:27 | XMS_ITS | Encounter Summary ---
Author Organization [facility] Address [address] [place] [address] Phone Care Team Providers Care Clinical Tech Name Role Phone Daja Kern MD Primary Care Provider [phone] Reason for Visit * Auth/Cert (Routine) Specialty Diagnoses / Procedures Referred By Contac t Referred To Contact Referral ID Status Reason Start Date Expiration Date Visits Re quested Visits Authorized 1 1 Encounter Details Date Type Department Care Team (Latest Contact Info) Description 03/03/2022 9:00 AM AUTOMOTIVE FLEET SUPERVISOR [facility] [address] [place] [address] Tami Healy, SENIOR PHP DEVELOPER PT - DISCIPLINE DISCHARGE Social History Tobacco Use [...] Coronavirus/COVID-19? No / Unsure 02/24/2022 12:13 PM AUTOMOTIVE FLEET SUPERVISOR documented as of this encounter Last Filed Vital Signs Vital Sign Reading Time Taken Comments Blood Pressure 105/92 03/03/2022 9:20 AM AUTOMOTIVE FLEET SUPERVISOR Pulse 110 03/03/2022 9:20 AM AUTOMOTIVE FLEET SUPERVISOR Temperature 36.7 ??C (98.1 ??F) 03/03/2022 9:20 AM CS T Respiratory Rate 18 03/03/2022 9:20 AM AUTOMOTIVE FLEET SUPERVISOR Oxygen Saturation 94% 03/03/2022 9:20 AM AUTOMOTIVE FLEET SUPERVISOR Inhaled Oxygen Concentration - - Weight - - Height - - Body Mass Index - - documented in this encounter Plan of Treatment Upcoming Encounters Date Type Department Care Team (Late st Contact Info) Description 03/27/2024 8:30 AM AUTOMOTIVE FLEET SUPERVISOR [facility] [address] [place] [address] Burt Eastman MD [address] [address] 03/27/2024 8:30 AM AUTOMOTIVE FLEET SUPERVISOR - 03/27/2024 9:00 AM AUTOMOTIVE FLEET SUPERVISOR [facility] [address] [place] [address] Burt Eastman MD [address] [address] COLONOSCOPY 04/09/2024 1:15 PM AUTOMOTIVE FLEET SUPERVISOR Office Visit [facility] - Pulmonology & Sleep Medicine [facility] [address] [place] [address] Baron Vergara MD [address] [place] [address] Scheduled Procedures Name Priority Associated Diagnoses Date/Ti me COLONOSCOPY HISTORY OF COLON POLYPS 03/27/2024 8:30 AM AUTOMOTIVE FLEET SUPERVISOR documented as of this encounter Visit Diagnoses Not on filedocumented in this encounter Home Health Visit - Care Plan Visit Details Visit Type -PT - DISCIPLINE DISCHARGE Discipline -Physical Therapy Problems Problem Description Start Date Status Goals Interve ntions FALL PREVENTION (O) Disciplines: SN, PT, OT, TALENT ACQUISITION SPECIALIST, HCA, CAREER DISCOVERY TEACHER, RT 02/11/2022 Active 1 goal linked to scheduled/document ed intervention [facility] COVID-19 Disciplines: SN, PT, OT, TALENT ACQUISITION SPECIALIST, CAREER DISCOVERY TEACHER, RT 02/11/2022 Active 1 goal linked to scheduled/document ed intervention 1 goal intervention scheduled/documen arnulfo in this visit THERAPY DISEASE MANAGEMENT (O) Disciplines: Physical Therapy 02/15/2022 Active - 1 problem intervention scheduled/documen arnulfo in this visit PT DISCHARGE/REASS ESSMENT Disciplines: Physical Therapy PT Discharge 02/15/2022 Active - 1 problem intervention scheduled/documen arnulfo in this visit PHYSICAL THERAPY EVALUATION (O) Disciplines: Physical Therapy PT Evaluation 02/15/2022 Active 1 goal linked to scheduled/document ed intervention 1 goal intervention scheduled/documen arnulfo in this visit PT COMPREHENSIVE Disciplines: Physical Therapy 02/15/2022 Active 6 goals linked to scheduled/document ed interventions 3 goal interventions scheduled/documen arnulfo in this visit Goals Goal Associated Problem Outcome Goal Met? Visit Notes Fall Prevention Description: Shared goal applicable to all disciplines with a visit frequency order. Patient/ Caregiver will verbalize understanding of identified fall risk based on [facility]-10 Fall Risk assessment and methods to prevent falls. Target date: by 03/05/22 (date) FALL PREVENTION (O) Therapy: Goal partially met No COVID-19 Description: Patient/caregivers will verbalize understanding of COVID-19 and symptoms to report and home management strategies by date 02/26/22 [facility] COVID-19 No Physical Therapy Evaluation Description: After assessing the patient and discussing the patient's goals the following were identified: Patient centered chcf goal: walk longer distances with appropriate vital sign response. Target Date: within 3 weeks PHYSICAL THERAPY EVALUATION (O) No PT Balance Description: Short Term Goal: Patient will show improved dynamic standing balance as demonstrated by improved Tinetti score from not to in order to lower risk for falls. To be met by 03/05/22. PT COMPREHENSIVE Therapy: Goal partially met No Recommeded to patient to use cane out of apartment for safety-patient compliant with this recommendation PT Stairs and Home Exit Description: Short Term Goal: Patient will be independent on Ramp with use of cane while maintaining ordered precautions to allow for ability to enter/exit home safely . To be met by 03/05/22. PT COMPREHENSIVE Therapy: Goal partially met No Patient reports she is able to get out to bus as needed when she feels good. Patient reports she thinks she has a sinus infection and is using nasal spray. PT Bed Mobility Description: Short Term Goal Patient will be independent with supine to sit, sit to supine and repositioning in order to increase independence with functional mobility. To be met by 03/05/22. PT COMPREHENSIVE Therapy: Goal partially met No Recommended bed rail as needed to assist with exertion of transfer in><out of bed Patient denies need at this time PT Ambulation Description: Short Term Goal: Patient will ambulate Independently 200 feet with use of Straight cane, over even surfaces and uneven surfaces with the following improved gait characteristics good posture, appropriate vital signs following in order to safely navigate her apartement complex. To be met by 03/05/22. PT COMPREHENSIVE Therapy: Goal partially met No Patient has demonstrated this in prior visits. Not demonstrated today as patients reports she is congested, tired, and sore throat. PT Transfers Description: Short Term Goal: Patient will perform sit to stand/pivot transfers independently with use of device as needed ; in order to safely negotiate home. To be met by 03/05/22. PT COMPREHENSIVE Therapy: Goal partially met No Demonstrated from functional levels in apartment home PT HEP/Strength and Exercise Description: HEP Goals: Short Term Goal: Patient will independently with initial HEP of strengthening, balance training and conditioning in order to progress strength and functional mobility. To be met by 03/05/22. PT COMPREHENSIVE Therapy: Goal partially met No Patient verbalizes a good understanding of HEP and has handouts for reference Interventions Intervention Associated Problem/Goal Status Variance Visit Notes COVID-19 Evaluation/Education Description: Perform COVID-19 monitoring and education including symptoms to report, social distancing, aerosolizing procedures, and COVID-19 precautions. Problem:/[facility] COVID-19 Goal:COVID-19 Completed Is patient experiencing any new or worsening COVID-19 symptoms? No COVID-19 education provided: Call Home Care if pulse ox remains below 90% Instruction provided to Patient. Response verbalize understanding Therapy Depression (O) Description: Assess and monitor for signs and symptoms of depression. Problem:THERAPY DISEASE MANAGEMENT (O) Completed Patient shows signs of depression yes Symptoms reported to physician no PT Discharge Problem:PT DISCHARGE/REASSESSMEN T Completed Medication list reviewed and left in home. Medicare notice of discharge signed on n/a. Discharge Instructions provided to Patient. Response verbalize understanding. Physical Therapy General (Order Only) Description: Clinical findings: 51 year old female inpatient 02/08/22-02/10/22 with hypoxia and acute respiratory failure. She was found to have Covid-19 and influenza A on 02/08/22. Patient was back in ED on 02/13/22 with headache, dizziness and cough. Patient answers the door to RETIREMENT walking with cane CGA. She ambulates 100 [...] EVALUATION (O) Goal:Physical Therapy Evaluation Completed PT Bed Mobility Description: Instruct on bed mobility techniques and safety. Equipment as needed. Problem:PT COMPREHENSIVE Goal:PT Bed Mobility Completed Bed mobility training consisting of: rolling right, rolling left, supine to sit, sit to supine, repositioning, scooting and raising feet onto bed. Assistance required: be independent With use of No assistive device. Skills provided: Safety instruction recommend bed rail if getting in><and out of bed becomes difficulty . Tolerance to activity: Pulse ox reading 94% Instruction provided to Patient. Response verbalize understanding. Progress toward goal: met PT Ambulation Description: Provide gait training for increased safety and efficiency. Progress per patient tolerance and safety. Problem:PT COMPREHENSIVE Goal:PT Ambulation Completed Patient ambulated Independently 50 feet with use of no device. WBAT Bilateral lower extremity over uneven surfaces with the following gait characteristics moderate pace, step thru, no balance losses. Skills provided: Safety instruction use cane as needed for safety . Tolerance to activity Decreased assistance required. Instruction provided to Patient. Response return demonstration. Progress toward goal: met PT Transfers Description: Instruct in proper safety and transfer technique. Problem:PT COMPREHENSIVE Goal:PT Transfers Completed Transfer training provided this date Sit to/from stand . Level of support required for safety independently. Assistive devices used: none or mattress or arm rest if in bed or chair Skill provided Safety instructions push up and reach back for optimal transition safety. Tolerance to activity good Instruction provided to Patient. Response verbalize understanding. Progress toward goal: met documented in this encounter Care Teams Clinical Tech Relationship Specialty Start Date End Date Daja Kern MD [address] [place] [address] PCP - General Internal Medicine 03/13/15 documented as of this encounter
--- OUTSIDE RECORDS SUMMARY | 2024-03-03 19:27 | XMS_ITS | Encounter Summary ---
Author Organization [facility] Care Team Providers Care Records Manager Name Role Phone Daja Kern MD Primary Care Provider [phone] Encounter Details Date Type Department Care Team (Latest Contact Info) Description 03/24/2022 Travel Social History Tobacco Use Types Packs/Day [...] Coronavirus/COVID-19? No / Unsure 03/24/2022 10:26 AM ATHLETIC MONITOR documented as of this encounter Plan of Treatment Upcoming Encounters Date Type Department Care Team (Late st Contact Info) Description 03/27/2024 8:30 AM ATHLETIC MONITOR [facility] [address] [place] [address] Burt Eastman MD 2 [facility] [address] [address] 03/27/2024 8:30 AM ATHLETIC MONITOR - 03/27/2024 9:00 AM ATHLETIC MONITOR [facility] [address] [place] [address] Burt Eastman MD [address] [address] COLONOSCOPY 04/09/2024 1:15 PM ATHLETIC MONITOR [facility] [address] [place] [address] Baron Vergara MD [address] [place] [address] Scheduled Procedures Name Priority Associated Diagnoses Date/Ti me COLONOSCOPY HISTORY OF COLON POLYPS 03/27/2024 8:30 AM ATHLETIC MONITOR documented as of this encounter Visit Diagnoses Not on filedocumented in this encounter Care Teams Records Manager Relationship Specialty Start Date End Date Daja Kern MD [address] [place] [address] PCP - General Internal Medicine 03/13/15 documented as of this encounter
--- OUTSIDE RECORDS SUMMARY | 2024-03-03 19:27 | XMS_ITS | Encounter Summary ---
Author Organization [email or web address] Care Team Providers Care Media Specialist Name Role Phone Daja Kern MD Primary Care Provider [phone] Encounter Details Date Type Department Care Team (Latest Contact Info) Description 03/18/2022 Travel Social History Tobacco Use Types Packs/Day [...] suspected to have Coronavirus/COVID-19? No / Unsure 03/18/2022 9:23 AM ELECTRIC RANGE PREPARER documented as of this encounter Plan of Treatment Upcoming Encounters Date Type Department Care Team (Late st Contact Info) Description 03/27/2024 8:30 AM ELECTRIC RANGE PREPARER [facility] [address] [place] [address] Burt Eastman MD 2 [facility] [address] [address] 03/27/2024 8:30 AM ELECTRIC RANGE PREPARER - 03/27/2024 9:00 AM ELECTRIC RANGE PREPARER [facility] [address] [place] [address] Burt Eastman MD [address] [address] COLONOSCOPY 04/09/2024 1:15 PM ELECTRIC RANGE PREPARER [facility] [address] [place] [address] Baron Vergara MD [address] [place] [address] Scheduled Procedures Name Priority Associated Diagnoses Date/Ti me COLONOSCOPY HISTORY OF COLON POLYPS 03/27/2024 8:30 AM ELECTRIC RANGE PREPARER documented as of this encounter Visit Diagnoses Not on filedocumented in this encounter Care Teams Media Specialist Relationship Specialty Start Date End Date Daja Kern MD [address] [place] [address] PCP - General Internal Medicine 03/13/15 documented as of this encounter
--- OUTSIDE RECORDS SUMMARY | 2024-03-03 19:27 | XMS_ITS | Encounter Summary ---
Author Organization [facility] Address [address] [place] [address] Phone Care Team Providers Care Individualized Education Plan Aide Name Role Phone Daja Kern MD Primary Care Provider [phone] Reason for Visit * Auth/Cert (Routine) Specialty Diagnoses / Procedures Referred By Contac t Referred To Contact Referral ID Status Reason Start Date Expiration Date Visits Re quested Visits Authorized 1 1 Encounter Details Date Type Department Care Team (Late Contact Info) Description 03/15/2022 [facility] [address] [place] [address] Bailey Hoover OTA NE TELEPHONE ENCOUNTER Social History Tobacco Use Types Packs/Day Years [...] Coronavirus/COVID-19? No / Unsure 03/15/2022 2:52 PM MACHINE REPAIRER documented as of this encounter Plan of Treatment Upcoming Encounters Date Type Department Care Team (Late Contact Info) Description 03/27/2024 8:30 AM MACHINE REPAIRER [facility] [address] [place] [address] Burt Eastman MD [address] [address] 03/27/2024 8:30 AM MACHINE REPAIRER - 03/27/2024 9:00 AM MACHINE REPAIRER [facility] [address] [place] [address] Burt Eastman MD [address] [address] COLONOSCOPY 04/09/2024 1:15 PM MACHINE REPAIRER Office Visit [facility] - Pulmonology & Sleep Medicine [facility] [address] [place] [address] Baron Vergara MD [address] [place] [address] Scheduled Procedures Name Priority Associated Diagnoses Date/Ti me COLONOSCOPY HISTORY OF COLON POLYPS 03/27/2024 8:30 AM MACHINE REPAIRER documented as of this encounter Visit Diagnoses Not on filedocumented in this encounter Home Health Visit - Actions and Narratives Actions Call to Kristine at Dr. Marisol ornelas's office to report elevated BP of 144/92 and elevated HR of 120 bpm - Pt is reporting no associated symptoms including headache, dizziness, blurred vision, chest pain, or SOB. Pt instructed by RN at MD's office to seek medical attention if any symptoms arise. Kristine will consult with tomorrow and call Pt with any additional instruction. documented in this encounter Care Teams Individualized Education Plan Aide Relationship Specialty Start Date End Date Daja Kern MD [address] [place], [place] [id number] PCP - General Internal Medicine 03/13/15 documented as of this encounter
--- OUTSIDE RECORDS SUMMARY | 2024-03-03 19:27 | XMS_ITS | Encounter Summary ---
Author Organization [facility] Address [address] [place] [address] Phone Care Team Providers Care Returned Telephone Equipment Appraiser Name Role Phone Daja Kern MD Primary Care Provider [phone] Encounter Details Date Type Department Care Team (Late st Contact Info) Description 07/07/2022 6:31 PM CDT - 07/07/2022 7:03 PM CDT Emergency [facility] Emergency [address] [place] [address] Discharge Disposition: LWBS Social History [...] st Contact Info) Description 03/27/2024 8:30 AM WASHHOUSE HAND Hospital Encounter [facility] Lab Periop [address] [place] [address] Burt Eastman MD [address] [address] 03/27/2024 8:30 AM WASHHOUSE HAND - 03/27/2024 9:00 AM WASHHOUSE HAND [facility] [address] [place] [address] Burt Eastman MD [address] [address] COLONOSCOPY 04/09/2024 1:15 PM WASHHOUSE HAND [facility] - [place] [address] [place] [address] Baron Vergara MD [address] [place] [address] Scheduled Procedures Name Priority Associated Diagnoses Date/Ti me COLONOSCOPY HISTORY OF COLON POLYPS 03/27/2024 8:30 AM WASHHOUSE HAND documented as of this encounter Visit Diagnoses Not on filedocumented in this encounter Care Teams Returned Telephone Equipment Appraiser Relationship Specialty Start Date End Date Daja Kern MD [address] [place] [address] PCP - General Internal Medicine 03/13/15 documented as of this encounter
--- OUTSIDE RECORDS SUMMARY | 2024-03-03 19:27 | XMS_ITS | Encounter Summary ---
Author Organization [facility] Address [address] [place] [address] Phone Care Team Providers Care Order Expediter Name Role Phone Daja Kern MD Primary Care Provider [phone] Reason for Visit * Auth/Cert (Routine) Specialty Diagnoses / Procedures Referred By Contac t Referred To Contact Referral ID Status Reason Start Date Expiration Date Visits Re quested Visits Authorized [id number] 1 1 Encounter Details Date Type Department Care Team (Late st Contact Info) Description 02/24/2022 9:30 AM MASSAGE THERAPIST [facility] [address] [place] [address] Tea Sutherland, MARCOS OT - INITIAL EVALUATION Social History Tobacco Use [...] Coronavirus/COVID-19? No / Unsure 02/23/2022 10:03 AM MASSAGE THERAPIST documented as of this encounter Last Filed Vital Signs Vital Sign Reading Time Taken Comments Blood Pressure 148/94 02/24/2022 10:03 AM MASSAGE THERAPIST pt. had not taken her meds Pulse 123 02/24/2022 10:34 AM MASSAGE THERAPIST Temperature 36.2 ??C (97.2 ??F) 02/24/2022 1 0:03 AM MASSAGE THERAPIST Respiratory Rate 19 02/24/2022 10:0 3 AM MASSAGE THERAPIST Oxygen Saturation 97% 02/24/2022 10: 34 AM MASSAGE THERAPIST room air Inhaled Oxygen Concentration - - Weight - - Height - - Body Mass Index - - documented in this encounter Plan of Treatment Upcoming Encounters Date Type Department Care Team (Late st Contact Info) Description 03/27/2024 8:30 AM MASSAGE THERAPIST [facility] [address] [place] [address] Burt Eastman MD [address] [address] 03/27/2024 8:30 AM MASSAGE THERAPIST - 03/27/2024 9:00 AM MASSAGE THERAPIST [facility] [address] [place] [address] Burt Eastman MD [address] [address] COLONOSCOPY 04/09/2024 1:15 PM MASSAGE THERAPIST [facility] [address] [place] [address] Baron Vergara MD [address] [place] [address] Scheduled Procedures Name Priority Associated Diagnoses Date/Ti me COLONOSCOPY HISTORY OF COLON POLYPS 03/27/2024 8:30 AM MASSAGE THERAPIST documented as of this encounter Visit Diagnoses Not on filedocumented in this encounter Additional Health Concerns Infection Onset Date Last Indicated Resolved Time Respiratory Rule-Out 02/08/2022 02/08/2022 023 12:16 AM MASSAGE THERAPIST COVID - 19 Confirmed 02/08/2022 02/08/2022 023 12:16 AM MASSAGE THERAPIST documented as of this encounter Home Health Visit - Care Plan Visit Details Visit Type -OT - INITIAL [facility] [facility] Discipline -Occupational Therapy Problems Problem Description Start Date Status Goals Interve ntions /[facility] COVID-19 Disciplines: SN, PT, OT, RESOURCE ROOM SPECIAL EDUCATION TEACHER, PRODUCT BUILDER, RT 02/11/2022 Active 1 goal linked to scheduled/documen arnulfo intervention 1 goal intervention scheduled/document ed in this visit OCCUPATIONAL THERAPY GENERAL ORDER (O) Disciplines: Occupational Therapy Occupational Therapy General Order 02/24/2022 Active 1 goal linked to scheduled/documen arnulfo intervention 1 goal intervention scheduled/document ed in this visit OT COMPREHENSIVE Disciplines: Occupational Therapy 02/24/2022 Active 1 goal linked to scheduled/documen arnulfo intervention 1 goal intervention scheduled/document ed in this visit Goals Goal Associated Problem Outcome Goal Met? Visit Notes COVID-19 Description: Patient/caregivers will verbalize understanding of COVID-19 and symptoms to report and home management strategies by date 02/26/22 [facility] COVID-19 No Occupational Therapy General Description: After assessing the patient and discussing the patient's goals the following were identified. Patient Centered Dam Tender Goal: safely be able to shower on her own Target date: 03/18/22 OCCUPATIONAL THERAPY GENERAL ORDER (O) No OT Transfers Description: Short Term Goal: Patient will complete toilet transfer with adaptive equipment of grab bar and cane with independence and good understanding of safety/technique. To be met by 03/13/22. [facility] Goal: Patient will complete tub transfer with adaptive equipment of grab bars and seat with independence and good understanding of safety/technique. To be met by 03/18/22. OT COMPREHENSIVE No Interventions Intervention Associated Problem/Goal Status Variance Visit Notes COVID-19 Evaluation/Education Description: Perform COVID-19 monitoring and education including symptoms to report, social distancing, aerosolizing procedures, and COVID-19 precautions. Problem:/[facility] COVID-19 Goal:COVID-19 Completed Is patient experiencing [...] new confusion/ unable to arouse, blue lips/ face, Home isolation for physician recommended timeframe., Social Distancing precautions including location in home, separation from family/ pets and communication strategies and PPE: wear a facemask around others in the room, the car and before entering a public place Instruction provided to Patient. Response verbalize understanding OT Evaluation (Order Only) Description: 51 year [...] as needed. Problem:OT COMPREHENSIVE Goal:OT Transfers Completed It was recommended that pt. get a rubber-backed rug to step out of the tub/shower onto and only put it down when taking a shower so that she does not trip when using the sink. pt. verbalized understanding. Follow-up is required. documented in this encounter Care Teams Order Expediter Relationship Specialty Start Date End Date Daja Kern MD [address] [place] [address] PCP - General Internal Medicine 03/13/15 documented as of this encounter
--- OUTSIDE RECORDS SUMMARY | 2024-03-03 19:27 | XMS_ITS | Encounter Summary ---
Author Organization [facility] Address [address] [place] [address] Phone Care Team Providers Care Roads Supervisor Name Role Phone Daja Kern MD Primary Care Provider [phone] Reason for Visit * Reason Comments Fall Encounter Details Date Type Department Care Team ([facility] st Contact Info) Description 04/05/2023 3:55 AM LABORATORY EQUIPMENT INSTALLER - 04/05/2023 5:59 AM LABORATORY EQUIPMENT INSTALLER Emergency [facility] Emergency [address] [place] [address] Jhon Smith MD [address] [place] [address] Substance abuse (HCC) Discharge Disposition: Discharged to home or [...] Sign Reading Time Taken Comments Blood Pressure 195/136 04/05/2023 5:45 AM LABORATORY EQUIPMENT INSTALLER Pulse 73 04/05/2023 5:45 AM LABORATORY EQUIPMENT INSTALLER Temperature 36.3 ??C (97.4 ??F) 04/05/2023 4:02 AM CS T Respiratory Rate 16 04/05/2023 4:02 AM LABORATORY EQUIPMENT INSTALLER Oxygen Saturation 100% 04/05/2023 5:45 AM LABORATORY EQUIPMENT INSTALLER Inhaled Oxygen Concentration - - Weight 127 kg (280 lb) 04/05/2023 4:02 AM LABORATORY EQUIPMENT INSTALLER Height 157.5 cm (5' 2 ) 04/05/2023 4:02 AM LABORATORY EQUIPMENT INSTALLER Body Mass Index 51.21 04/05/2023 4:02 AM LABORATORY EQUIPMENT INSTALLER documented in this encounter Discharge Instructions * Attachments The following attachments cannot be sent through Care Everywhere. * Substance Use Disorder (Nepalese) documented in this encounter Medications at Time [...] as of this encounter ED Notes * Lorin Littlejohn RN - 04/05/2023 5:57 AM CST Patient discharged. Discharge instructions and patient educational material reviewed with patient; questions and concerns addressed; patient verbalizes understanding, using teach back. Patient was given a New [employer] Flyer. Patient discharged per ambulatory mode with a cane with self as responsible green party. RATORY EQUIPMENT INSTALLER * Lorin Littlejohn RN - 04/05/2023 5:00 AM CST Patient is resting in room with call light at bedside. Patient informed about wait time and verbalizes understanding. Patient denies needs at this time and verbalizes understanding that RN will complete hourly rounding. RATORY EQUIPMENT INSTALLER * Jhon Smith MD - 04/05/2023 4:51 AM CST Chief Complaint Patient presents with ??? Fall Patient is a 52-year-old female comes emergency room after falling on a sidewalk. She states she was out early this a.m. going to the EDI to get some money out. She states she has not eaten for 2 days. When asked why she states she is depressed and has not felt like it. She has history of substance abuse and recently has use cocaine. She was mentioned that she would like to try to get into detox. In regards to her fall she fell down onto her hands No current facility-administered medications for this encounter. [...] use cpap ??? SBO (small bowel obstruction) ([facility]) 09/2018 ??? Vitamin D deficiency Past Surgical History: Procedure Laterality Date ??? SECTION 1994 ??? CHOLECYSTECTOMY 2005 laparoscopic ??? COLONOSCOPY [facility] (Does not remember the ) ??? COLONOSCOPY N/A 11/16/2018 Procedure: COLONOSCOPY - POLYPS, BIOPSIES; Surgeon: Damian Gallardo DO; Location: [facility]; Service: Gastroenterology ??? EGD 2012? [facility] ??? UPPER GASTROINTESTINAL ENDOSCOPY N/A 02/06/2019 Procedure: EGD, SMALL BOWEL BIOSY, GASTRIC POLYP, SAMANTHA TEST; Surgeon: Damian Gallardo DO; Location: [facility]; Service: Gastroenterology ??? WISDOM TOOTH [...] Social History Narrative ??? Not on file Social Determinants of Health Financial Resource Needs: Not on file Food Insecurity Needs: Not on file Transportation Needs: Not on file Physical Activity: Not on file Stress: Not on file Social Integration: Not on file Intimate Partner Violence: Not on file Housing Stability: Not on file BP (!) 195/136 Pulse 73 Temp 97.4 ??F (36.3 ??C) (Tympanic) Resp 16 Ht 5' 2 (1.575 m) Wt280 lb (127 kg) LMP 11/12/2019 SpO2 100% BMI 51.21 kg/m?? Review of Systems Constitutional: Negative for activity change, appetite change, chills and fever. HENT: Negative for congestion, ear pain, rhinorrhea, sore throat and trouble swallowing. Eyes: Negative for pain and visual disturbance. Respiratory: Negative for cough, shortness of breath and wheezing. Cardiovascular: Negative for chest pain. Gastrointestinal: Negative for abdominal pain, diarrhea, nausea and vomiting. Genitourinary: Negative for difficulty urinating and dysuria. Musculoskeletal: Negative for arthralgias and back pain. Skin: Negative for pallor. Neurological: Negative for headaches. Hematological: Negative for adenopathy. Psychiatric/Behavioral: Negative for confusion. All other systems reviewed and are negative. [...] no guarding or rebound. Musculoskeletal: General: No deformity. Normal range of motion. Right hand: Tenderness (Mild) present. No swelling, deformity or bony tenderness. Normal range of motion. Normal pulse. Left hand: Tenderness ( mild) present. No swelling, deformity or bony tenderness. Normal range of motion. Normal pulse. Cervical back: Normal range of motion and neck supple. Lymphadenopathy: Cervical: No cervical adenopathy. Skin: General: Skin is warm and dry. Coloration: Skin is not pale. Findings: No erythema or rash. Neurological: Mental Status: She is alert and oriented to person, place, and time. Cranial Nerves: No cranial nerve deficit. Psychiatric: Behavior: Behavior normal. Thought Content: Thought content normal. Judgment: Judgment normal. Procedures No results found for this or any previous visit (from the past 24 hour(s)). Imaging Results None Medical Decision Making Clinical Impression 1. Substance abuse (HCC) Disposition: Discharge Patient had a fall which is only a minor injury to her hands. They did not warrant any x-rays at this time. Patient was in agreement to this. After talking with the patient is noted that she has history of substance abuse and was looking to possibly seek detox. We talked to her about our new [facility] at [facility] RATORY EQUIPMENT INSTALLER * Yaima Thakkar RN - 04/05/2023 4:05 AM CST Patient to ER via AFD c/o GLF. States she was walking to th EDI and fell. Denies LOC or hitting head. Reports bilateral hand pain. Patient also reports having cocaine in her system. RATORY EQUIPMENT INSTALLER * Lachelle Higgins - 04/05/2023 3:56 AM CST Bed: [place] [id number] Expected date: 04/05/23 Expected time: 3:54 AM Means of arrival: Ambulance (AFD) Comments: AFD F50 RATORY EQUIPMENT INSTALLER documented in this encounter Plan of Treatment Upcoming Encounters Date Type Department Care Team (Late st Contact Info) Description 03/27/2024 8:30 AM LABORATORY EQUIPMENT INSTALLER Hospital Encounter [facility] Periop [address] [place] [address] Burt Eastman MD [address] [address] 03/27/2024 8:30 AM LABORATORY EQUIPMENT INSTALLER - 03/27/2024 9:00 AM LABORATORY EQUIPMENT INSTALLER Surgery [facility] [address] [place] [address] Burt Eastman MD [address] [address] COLONOSCOPY 04/09/2024 1:15 PM LABORATORY EQUIPMENT INSTALLER Office Visit [facility] - Pulmonology & Sleep Medicine [facility] [address] [place] [address] Baron Vergara MD [address] [place] [address] Scheduled Procedures Name Priority Associated Diagnoses Date/Ti me COLONOSCOPY HISTORY OF COLON POLYPS 03/27/2024 8:30 AM LABORATORY EQUIPMENT INSTALLER documented as of this encounter Procedures Procedure Name Priority Date/Time Associated Diagnosis Comments EKG SCAN 05/21/2023 12:00 AM CDT documented in this encounter Results * EKG SCAN (05/21/2023 12:00 AM CDT) 05/21/2023 us Provider Scan IMG ECG ORDERABLES Final Result RESULTING AGENCY documented in this encounter Visit Diagnoses Diagnosis Substance abuse (HCC)- Primary Other, mixed, or unspecified nondependent drug abuse, unspecified documented in this encounter Care Teams Roads Supervisor Relationship Specialty Start Date End Date Daja Kern MD [address] [place] [address] PCP - General Internal Medicine 03/13/15 documented as of this encounter
--- OUTSIDE RECORDS SUMMARY | 2024-03-03 19:27 | XMS_ITS | Encounter Summary ---
Author Organization [facility] Address [address] [place] [address] Phone Care Team Providers Care Building Pressure Washer Name Role Phone Daja Kern MD Primary Care Provider [phone] Reason for Visit * Reason Comments Urinary Tract Infection Encounter Details Date Type Department Care Team ([facility] Contact Info) Description 11/30/2022 2:42 PM CDT - 11/30/2022 5:56 PM CDT Emergency [facility] Emergency [address] [place] [address] Sharri Harper, PAC [address] [place] [address] Urinary tract infection Discharge Disposition: Discharged to home or Selfcare [...] PM CDT documented as of this encounter Last Filed Vital Signs Vital Sign Reading Time Taken Comments Blood Pressure 134/88 11/30/2022 5:45 PM CDT Pulse 71 11/30/2022 5:45 PM CDT Temperature 36.1 ??C (97 ??F) 11/30/2022 5:45 PM CDT Respiratory Rate 16 11/30/2022 2:37 PM CDT Oxygen Saturation 99% 11/30/2022 5:45 PM CDT Inhaled Oxygen Concentration - - Weight 120.2 kg (265 lb) 11/30/2022 2:37 PM CDT Height 157.5 cm (5' 2 ) 11/30/2022 2:37 PM CDT Body Mass Index 48.47 11/30/2022 2:37 PM CDT documented in this encounter Discharge Instructions * Discharge Instructions* Sharri Harper PAC - 11/30/2022 5:35 PM CDT Please follow up with your primary care provider. It is important to get a mammogram scheduled if you are due. Push fluids and rest. Return for reevaluation if your symptoms change or worsen. * Attachments The following attachments cannot be sent through Care Everywhere. * Urinary Tract Infection Adult (Togolese) * Skin Yeast Infection (Togolese) documented in this encounter Medications at Time [...] for Wheezing or Cough. 6.7 g 02/10/2022 11/06/202 3 amoxicillin-clavul anate (AUGMENTIN) 875-125 MG TabletIndications: Skin and Soft Tissue Infection Take 1 Tablet by mouth 2 times daily for 10 days. Indications: Infection of the Skin and/or Soft Tissue 20 Tablet 11/30/2022 3 Aripiprazole 20 MG Tablet Take 20 [...] for dosing schedule 21 Tablet 04/29/2022 3 nystatin (MYCOSTATIN) 152405 UNIT/GM Cream Apply 3 times daily for 14 days. Application Site: apply to R breast three times daily 60 g 11/30/2022 3 pregabalin (LYRICA) 75 MG Capsule Take [...] as of this encounter ED Notes * Bethany Hernandez RN - 11/30/2022 5:55 PM CDT Patient discharged. Discharge instructions and patient educational material reviewed with patient; questions and concerns addressed; patient verbalizes understanding, using teach back. Patient was given 2 prescriptions. Patient discharged per wheelchair mode with self as responsible constitution party. * Bethany Hernandez RN - 11/30/2022 5:53 PM CDT Pt reports that her mother will be coming to get her and is allowing her to stay with her tonight. Pt still given additional resources for shelters around area. * Bethany Hernandez RN - 11/30/2022 5:48 PM CDT Pt medicated per provider orders. Pt educated on intended effects and side effects of medication and verbalized understanding, able to provide teach back of education. * Sharri Harper PAC - 11/30/2022 4:14 PM CDT Chief Complaint Patient presents with ??? Urinary Tract Infection HPI Alona Kemp is a 51 y.o. female who presents from home due to concern due to a painful rash to her R breast and also dysuria. She states she has had burning with urination and blood in her urine for the past few days. She states she has had a yeast infection inferior to her R breast but she does not have any medication to put on it. She denies a fever. She states she is feeling well otherwise but is upset because she is homeless and does not have anywhere to stay tonight. She states that her mother kicked her out of her house. PMH includes hypothyroidism, depression, KWABENA, bipolar disorder, GERD, HLD, HTN, NAFLD, cocaine abuse, anxiety, IBS. Patient is a nonsmoker. She has a hx of cocaine use. Current Facility-Administered Medications Medication Dose Route Frequency Provider Last Rate Last Admin ??? amoxicillin-clavulanate (AUGMENTIN) 875-125 MG per tablet 1 Tablet 1 Tablet Oral Once Sharri Harper PAC ??? fluconazole (DIFLUCAN) tablet 200 mg 200 mg Oral Once Sharri Harper PAC Current Outpatient Medications Medication Sig Dispense Refill ??? albuterol 108 (90 Base) MCG/ACT Aerosol Solution take 2 Puffs by inhalation every 6 hours as needed for Wheezing or Cough. 6.7 g 0 ??? amoxicillin-clavulanate (AUGMENTIN) 875-125 MG Tablet Take 1 Tablet by mouth 2 times daily for 10 days. Indications: Infection of the Skin and/or Soft Tissue 20 Tablet 0 ??? Aripiprazole 20 MG Tablet Take 20 mg by mouth daily. ??? baclofen (LIORESAL) 20 MG Tablet Take 20 mg by mouth 2 times daily as needed. ??? diazePAM (VALIUM) 5 MG Tablet Take 1 Tablet by mouth every 8 hours as needed for Muscle spasms.8 Tablet 0 ??? DULoxetine (CYMBALTA) [address] [...] for dosing schedule 21 Tablet 0 ??? nystatin (MYCOSTATIN) 421800 UNIT/GM Cream Apply 3 times daily for 14 days. Application Site: apply to R breast three times daily 60 g 0 ??? omeprazole (PriLOSEC) 40 MG CAPSULE [...] POLYPS, BIOPSIES; Surgeon: Damian Gallardo DO; Location: [facility]; Service: Gastroenterology ??? EGD 2012? [facility] ??? UPPER GASTROINTESTINAL ENDOSCOPY N/A 02/06/2019 Procedure: EGD, SMALL BOWEL BIOSY, GASTRIC POLYP, SAMANTHA TEST; Surgeon: Damian Gallardo DO; Location: [facility]; Service: Gastroenterology ??? WISDOM [...] History Narrative ??? Not on file BP 132/76 Pulse 74 Temp (!) 96 ??F (35.6 ??C) (Tympanic) Resp 16 Ht 5' 2 (1.575 m) Wt 265 lb (120.2 kg) LMP 11/12/2019 SpO2 97% BMI 48.47 kg/m?? Review of Systems Constitutional: Negative for chills and fever. HENT: Negative for congestion, ear pain, rhinorrhea and sore throat. Eyes: Negative for discharge. Respiratory: Negative for cough, chest tightness, shortness of breath and wheezing. Cardiovascular: Negative for chest pain and palpitations. Gastrointestinal: Negative for abdominal pain, diarrhea, nausea and vomiting. Genitourinary: Positive for dysuria and hematuria. Negative for difficulty urinating and menstrual problem. Musculoskeletal: Negative for arthralgias and myalgias. Skin: Positive for rash. Negative for wound. Neurological: Negative for dizziness, syncope and [...] Skin: General: Skin is warm and dry. Comments: Redness inferior to R breast with a hotel sales manager red extending to lateral mid breast. No palpable lumps. No rash drainage. Neurological: Mental Status: She is alert and oriented to person, place, and time. Cranial Nerves: No cranial nerve deficit. Labs Reviewed URINALYSIS REFLEX IF INDICATED BY ABNORMAL RESULTS - Abnormal; Notable for the following components: Result Value WBC ESTERASE 100 /uL (*) PROTEIN, RANDOM URINE 15 mg/dL (*) WBC (Urine) 21-50 (*) BACTERIA, URINE Many (*) All other components within normal limits CULTURE, URINE URINALYSIS REFLEX IF INDICATED BY ABNORMAL RESULTS Final Result Procedures Recent Results (from the past 24 hour(s)) URINALYSIS REFLEX IF INDICATED BY ABNORMAL RESULTS Result Value Ref Range SPECIFIC GRAVITY 1.010 1.003 - 1.030 URINE PH 7.0 5.0 - 9.0 WBC ESTERASE 100 /uL (A) Negative NITRITE Negative Negative PROTEIN, RANDOM URINE 15 mg/dL (A) Negative URINE GLUCOSE, QUAL Negative Negative URINE KETONES Negative Negative UROBILINOGEN Normal Normal mg/dL URINE BLOOD Negative Negative dylan/ul URINALYSIS COLOR Yellow URINALYSIS CLARITY Clear WBC (Urine) 21-50 (A) Negative, 0-5 /hpf URINE RBC'S 0-2 Negative, 0-2 /hpf EPITHELIAL CELLS Moderate amount /lpf BACTERIA, URINE Many (A) Negative /hpf Imaging Results None MDM Clinical Impression 1. Urinary tract infection 2. Cellulitis of right breast 3. Candidiasis of breast Disposition: Discharged Patient was started on augmentin for a urinary tract infection and cellulitis of her breast. She was also given diflucan and nystatin. Advised close f/u with her pmd and to get a mammogram scheduled if she is due. She was given homeless senior care resources and has a phone to call. Cosigned by Carlos Fuchs MD at 12/04/2022 11:20 AM CDT * Erin Wesley RN - 11/30/2022 3:35 PM CDT Patient to ER with c/o blood in urine and burning with urination starting 2 weeks ago. Patient denies fevers. Denies nausea and vomiting. Patient also c/o redness and burning to right breast x 1 week. * Adeline Lozano RN - 11/30/2022 2:39 PM CDT Arrived ambulatory through triage with complaints of UTI symptoms including blood in urine. Report rash under right breast documented in this encounter Plan of Treatment Upcoming Encounters Date Type Department Care Team (Late st Contact Info) Description 03/27/2024 8:30 AM ELECTRIFIER OPERATOR [facility] Per[facility] [address] [place] [address] Burt Eastman MD [address] [address] 03/27/2024 8:30 AM ELECTRIFIER OPERATOR - 03/27/2024 9:00 AM ELECTRIFIER OPERATOR [facility] [address] [place] [address] Burt Eastman MD [address] [address] COLONOSCOPY 04/09/2024 1:15 PM ELECTRIFIER OPERATOR Office Visit [facility] - Pulmonology & Sleep Medicine [facility] [address] [place] [address] Baron Vergara MD [address] [place] [address] Scheduled Procedures Name Priority Associated Diagnoses Date/Ti me COLONOSCOPY HISTORY OF COLON POLYPS 03/27/2024 8:30 AM ELECTRIFIER OPERATOR documented as of this encounter Procedures Procedure Name Priority Date/Time Associated Diagnosis Comments URINALYSIS REFLEX IF INDICATED BY ABNORMAL RESULTS STAT 11/30/2022 4:27 PM CDT CULTURE, URINE STAT 11/30/2022 4:27 PM CDT documented in this encounter Results * Culture, Urine (11/30/2022 4:27 PM CDT) Pathologist [facility] CULTURE RESULTS MIXED GROWTH OF ONE OR MORE DISTAL URETHRAL CONTAMINANTS 12/02/2022 11:17 AM CDT [facility] Urine URINE SPECIMEN COLLECTION, CLEAN CATCH / Unknown Non-Phlebotomy Collection / Unknown 11/30/2022 4:27 PM CDT 11/30/2022 4:27 PM CDT us Sharri Oliver Page PAC MICROBIOLOGY - GENERAL ORDER ARMANDO Final Result [facility] [address] [place] [address], * (ABNORMAL) URINALYSIS REFLEX IF INDICATED BY ABNORMAL RESULTS (11/30/2022 4:27 PM CDT) Pathologist [facility] SPECIFIC GRAVITY 1.010 1.003 - 1.030 11/30/2022 5:08 PM CDT [facility] URINE PH 7.0 5.0 - 9.0 11/30/2022 5:08 PM CDT [facility] WBC ESTERASE 100 /uL(A) Negative 11/30/2022 5:08 PM CDT [facility] NITRITE Negative Negative 11/30/2022 5:08 PM CDT [facility] PROTEIN, RANDOM URINE 15 mg/dL(A) Negative 11/30/2022 5:08 PM CDT [facility] URINE GLUCOSE, QUAL Negative Negative 11/30/2022 5:08 PM CDT [facility] URINE KETONES Negative Negative 11/30/2022 5:08 PM CDT [facility] UROBILINOGEN Normal Normal mg/dL 11/30/2022 5:08 PM CDT [facility] URINE BLOOD Negative Negative dylan/ul 11/30/2022 5:08 PM CDT [facility] URINALYSIS COLOR Yellow 12/01/19 5:08 PM CDT [facility] URINALYSIS CLARITY Clear 11/30/2022 5:08 PM CDT [facility] WBC (Urine) 21-50(A) Negative, 0-5 /hpf 11/30/2022 5:08 PM CDT [facility] URINE RBC'S 0-2 Negative, 0-2 /hpf 11/30/2022 5:08 PM CDT [facility] EPITHELIAL CELLS Moderate amount /lpf 11/30/2022 5:08 PM CDT [facility] BACTERIA, URINE Many(A) Negative /hpf 11/30/2022 5:08 PM CDT [facility] Urine URINE SPECIMEN COLLECTION, CLEAN CATCH / Unknown Non-Phlebotomy Collection / Unknown 11/30/2022 4:27 PM CDT 11/30/2022 4:27 PM CDT us Sharri Oliver Page PAC URINE ORDERABLES Final Resul t [facility] #[address] [place] [address] documented in this encounter Visit Diagnoses Diagnosis Urinary tract infection- Primary Urinary tract infection, site not specified Cellulitis of right breast Candidiasis of breast Candidiasis of other urogenital sites documented in this encounter Administered Medications Inactive Administered Medications - up to 3 most recent administrations Medication Order MAR Action Action Date Dose Rate Site amoxicillin-clavulanate (AUGMENTIN) 875-125 MG per tablet 1 Tablet 1 Tablet, Oral, ONCE, 1 dose, On Mon11/30/22 at 1800, If unable to swallow, may crush., Indications: Skin and Soft Tissue InfectionIndications:Skin and Soft Tissue Infection Given 11/30/2022 5:49 PM CDT 1 Tablet fluconazole (DIFLUCAN) tablet 200 mg 200 mg, Oral, ONCE, 1 dose, On Mon11/30/22 at 1800, Indications: Skin and Soft Tissue InfectionIndications:Skin and Soft Tissue Infection Given 11/30/2022 5:49 PM CDT 200 mg documented in this encounter Active and Recently Administered Medications Times are shown in CDT. Scheduled Medication Order 11/28/2022 11/29/2022 11/30/2022 amoxicillin-clavulanate (AUGMENTIN) 875-125 MG per tablet 1 Tablet (COMPLETED) 1 Tablet, Oral, ONCE, 1 dose, On Mon11/30/22 at 1800, If unable to swallow, may crush., Indications: Skin and Soft Tissue Infection 1749 (Given - Provid er: Bethany Hernandez RN) fluconazole (DIFLUCAN) tablet 200 mg (COMPLETED) 200 mg, Oral, ONCE, 1 dose, On Mon11/30/22 at 1800, Indications: Skin and Soft Tissue Infection 1749 (Given - Provid er: Bethany Hernandez RN) documented in this encounter Care Teams Building Pressure Washer Relationship Specialty Start Date End Date Daja Kern MD [address] [place] [address] PCP - General Internal Medicine 03/13/15 documented as of this encounter
--- OUTSIDE RECORDS SUMMARY | 2024-03-03 19:27 | XMS_ITS | Encounter Summary ---
Author Organization [facility] Address [address] [place] [address] Phone Care Team Providers Care Catering Director Name Role Phone Daja Kern MD Primary Care Provider [phone] Reason for Visit * Reason Comments Fever Encounter Details Date Type Department Care Team ([facility] Contact Info) Description 09/10/2022 12:51 PM CDT - 09/10/2022 3:17 PM CDT Emergency [facility] Emergency [address] [place] [address] Abe Couch MD [address] [place] [address] Jadiel Longoria MD [address] [place] [address] Tachycardia Discharge Disposition: Discharged to home or Selfcare [...] Recorded In the last 10 days, have bruce borges been in contact with someone who was confirmed or suspected to have Coronavirus/COVID-19? No / Unsure 09/10/2022 1:04 PM CDT documented as of this encounter Last Filed Vital Signs Vital Sign Reading Time Taken Comments Blood Pressure 167/89 09/10/2022 3:00 PM CDT Pulse 118 09/10/2022 3:00 PM CDT Temperature 38.3 ??C (101 ??F) 09/10/2022 12 :59 PM CDT Respiratory Rate 13 09/10/2022 3:00 PM CDT Oxygen Saturation 95% 09/10/2022 3:00 PM CDT Inhaled Oxygen Concentration - - Weight 119.3 kg (263 lb 0.1 oz) 023 12:59 PM CDT Height 157.5 cm (5' 2 ) 09/10/2022 12:5 9 PM CDT Body Mass Index 48.1 09/10/2022 12:59 PM CDT documented in this encounter Discharge Instructions * Attachments The following attachments cannot be sent through Care Everywhere. * Influenza Adult ([place] Islander) documented in this encounter Medications at Time [...] for dosing schedule 21 Tablet 04/29/2022 3 oseltamivir (TAMIFLU) 75 MG Capsule Take 1 Capsule by mouth 2 times daily for 5 days. 10 Capsule 09/10/2022 3 pregabalin (LYRICA) 75 MG Capsule Take [...] ED Notes * Abel Andres RN - 09/10/2022 3:17 PM CDT thankful for care. she understands use of prescribed med. pt states she is supposed to use a c-pap at night, but chooses not to. she walked out of er using her cane. resp unlabored. * Jadiel Longoria MD - 09/10/2022 3:08 PM CDT Report from Dr. Couch. Patient presents with 48 hours of generalized malaise, fevers some myalgias, headache, fever and nausea. No vomiting noted. Occasional shortness of breath. No productive cough. No chest pain. Patient states it does feel similar to when she had the flu and COVID at same time. Workup is in progress. Chest x-ray visualized and interpreted by me. No acute disease Patient is positive for influenza B. we will treat her with Tamiflu. Patient will do symptomatic relief. She will practice social isolation. The patient remained stable throughout their ED [...] E.D. were discussed. New Medications: New Prescriptions OSELTAMIVIR (TAMIFLU) 75 MG CAPSULE Take 1 Capsule by mouth 2 times daily for 5 days. I have advised the patient to follow-up with: Daja Kern MD [address] [address] In 3 days As needed Dispostion: Discharge * Abel Andres RN - 09/10/2022 2:38 PM CDT pt napping and o2 sat drops below 89%. o2 applied at 2lpm/nc. * Abel Andres RN - 09/10/2022 2:10 PM CDT pt laying quietly on cart. resp unlabored. lights turned down in room per request. no new questions. * Abel Andres RN - 09/10/2022 1:25 PM CDT estimated time frame on test results. pt reports occasional dry cough. she c/o's nasal congestion with yellow drainage. she c/o's nausea without emesis. she denies any abd pain. * Niru Duarte RN - 09/10/2022 1:06 PM CDT Patient presents to ED room 9 from home with complaints of N/V, fever, headache and diarrhea onset two days ago. Patient states that she last took Tylenol around 0900 this morning. Temperature currently 101. HR 124. Sepsis alert initiated. EKG obtained. * Abe Couch MD - 09/10/2022 12:57 PM CDTAssociated Order(s): Critical Care; EKG 12 LEAD Chief Complaint Patient presents with ??? Fever 51-year-old female presenting emergency department with generalized malaise and fever ongoing for the past 48+ hours. She has been having headache, generalized body aches, fever, nausea, no active vomiting, denies dysuria, occasional shortness of breath but denies cough sputum production or chest pain. She has no ill contacts of which he is aware. She is had poor appetite with poor p.o. intake over the past 2 days as well. She is been taking [id number] medication for fever control but otherwise has not been on any focal interventions or treatments otherwise. Current Facility-Administered Medications Medication Dose Route Frequency Provider Last Rate Last Admin ??? acetaminophen (TYLENOL) tablet 975 mg 975 mg Oral Once Abe Couch MD ??? ondansetron (ZOFRAN) injection 4 mg 4 mg Intravenous Once Abe Couch MD ??? sodium chloride 0.9 % 1,000 mL IV bolus 1,000 mL Intravenous Once Abe Couch MD ??? sodium chloride 0.9 % 1,000 mL IV bolus 1,000 mL Intravenous Once Abe Couch MD Followed by ??? sodium chloride 0.9 % 1,000 mL IV bolus 1,000 mL Intravenous Once Abe Couch MD Followed by ??? sodium chloride 0.9 % 750 mL IV bolus 750 mL Intravenous Once Abe Couch MD Current Outpatient Medications Medication Sig Dispense Refill [...] ??? CHOLECYSTECTOMY 2005 laparoscopic ??? COLONOSCOPY [facility] (Does not remember the DRKyung) ??? COLONOSCOPY N/A 11/16/2018 Procedure: COLONOSCOPY - POLYPS, BIOPSIES; Surgeon: Damian Gallardo DO; Location: [facility]; Service: Gastroenterology ??? EGD 2012? [facility] ??? UPPER GASTROINTESTINAL ENDOSCOPY N/A 02/06/2019 Procedure: EGD, SMALL BOWEL BIOSY, GASTRIC POLYP, SAMANTHA TEST; Surgeon: Damian Gallardo DO; Location: [facility]; Service: Gastroenterology ??? WISDOM TOOTH [...] History Narrative ??? Not on file BP (!) 156/124 Pulse (!) 124 Temp (!) 101 ??F (38.3 ??C) (Tympanic) Resp 21 Ht 5' 2 (1.575m) Wt 263 lb 0.1 oz (119.3 kg) LMP 11/12/2019 SpO2 94% BMI 48.10 kg/m?? Review of Systems Constitutional: Positive for chills, diaphoresis, fatigue and fever. Negative for activity change. Respiratory: Negative for shortness of breath, wheezing and stridor. Gastrointestinal: Positive for nausea. Negative for abdominal pain and diarrhea. Neurological: Positive for light-headedness and headaches. All other systems reviewed and are negative. Physical Exam Vitals and nursing note reviewed. Constitutional: Appearance: She is obese. She is ill-appearing. She is not toxic-appearing. HENT: Head: Normocephalic and atraumatic. Mouth/Throat: Mouth: Mucous membranes are moist. Eyes: Extraocular Movements: Extraocular movements intact. Conjunctiva/sclera: Conjunctivae normal. Cardiovascular: Rate and Rhythm: Regular rhythm. Tachycardia present. Pulmonary: Effort: Pulmonary effort is normal. No respiratory distress. Abdominal: General: Abdomen is flat. Palpations: Abdomen is soft. Tenderness: There is no abdominal tenderness. There is no guarding. Musculoskeletal: General: Normal range of motion. Cervical back: Normal range of motion. Skin: General: Skin is warm and dry. Capillary Refill: Capillary refill takes less than 2 seconds. Neurological: General: No focal deficit present. Mental Status: She is alert and oriented to person, place, and time. Psychiatric: Behavior: Behavior normal. EKG 12 LEAD Performed by: Abe Couch MD Authorized by: Abe Couch MD ECG reviewed by ED Physician in the absence of a dye lab technician: yes Interpretation: Interpretation: abnormal Rate: ECG rate: 123 ECG rate assessment: tachycardic Rhythm: Rhythm: sinus [...] Critical care time (minutes): 35 Critical care was necessary to treat or prevent imminent or life-threatening deterioration of the following conditions: Sepsis Critical care was time spent personally by me on the following activities: Evaluation of patient's response to treatment, examination of patient, obtaining history from patient or surrogate, orderingand performing treatments and interventions, ordering and review of laboratory studies, ordering and review of radiographic studies, pulse oximetry, re-evaluation of patient's condition and review ofold charts I assumed direction of critical care for this patient from another provider in my specialty: no Imaging Results XR CHEST SINGLE VIEW PORTABLE (No Result on File) Labs Reviewed CMP (COMPREHENSIVE METABOLIC PANEL) - Abnormal; Notable for the following components: Result Value SODIUM 131 (*) CHLORIDE 92 (*) GLUCOSE 144 (*) All other components within normal limits CBC WITH AUTO DIFFERENTIAL - Abnormal; Notable for the following components: NEUTROPHILS 87.5 (*) LYMPHOCYTES 6.1 (*) ABSOLUTE LYMPHOCYTES 0.52 (*) All other components within normal limits LACTIC ACID (LACTATE) - Normal CULTURE, BLOOD CULTURE, BLOOD SARS-COV-2 BY MOLECULAR COMPLETE BLOOD COUNT (CBC) WITH DIFF Narrative: The following orders were created for panel order Complete Blood Count (CBC) with Diff. Procedure Abnormality Status --------- ------ CBC with Auto Differential[[id number]] Abnormal Final result Please view results for these tests on the individual orders. URINALYSIS REFLEX IF INDICATED BY ABNORMAL RESULTS EXTRA TUBES Narrative: The following orders were created for panel order Extra Tubes. Procedure Abnormality Status --------- ------ Blue Top Tube[[id number]] In process Gold Top Tube[[id number]] In process Lavender Top Tube[[id number]] In process Please view results for these tests on the individual orders. POCT INFLUENZA A & B BLUE TOP TUBE GOLD TOP TUBE LAVENDER TOP TUBE Medical Decision Making 51-year-old female presenting with fever, tachycardia. She will undergo sepsis evaluation and treatment per protocol, IV fluids ordered, epic/order set placed orders for actual body weight versus ideal, per patient's ideal body weight should she receive at least 1600 mL of IV fluid she will [id number] milliliters/kilogram, she will likely obtain more. She is not hypotensive however, so does not meet septic shock criteria. Will obtain urine chest x-ray to search for source, in the interim empiric ceftriaxone will be administered to cover for community-acquired pneumonia and urinary tract infection went to the most common mediation items, she does not have any skin changes or lesions to indicate cellulitis or skin soft tissue as source. Will also test for COVID-19 and influenza Amount and/or Complexity of Data Reviewed Labs: ordered. Details: Lactic acid and white blood cell count are normal Radiology: ordered and independent interpretation performed. ECG/medicine tests: ordered and independent interpretation performed. Details: See HPI for detailed interpretation Risk Decision regarding hospitalization. 1:47 PM CDT Signing out to Dr. Longoria for completion of care and follow-up. Clinical Impression 1. Fever, unspecified fever cause 2. Tachycardia documented in this encounter Miscellaneous Notes * Interdisciplinary - Nerissa Isbell, RN - 09/10/2022 2:09 PM CDT OnCall Sepsis Note Sepsis BPA alert received. Chart Reviewed, no action needed due to: All bundle components met at this time documented in this encounter Plan of Treatment Upcoming Encounters Date Type Department Care Team (Late st Contact Info) Description 03/27/2024 8:30 AM [employer]CH [employer]ER Hospital [facility] Periop [address] [place] [address] Burt Eastman MD [address] [address] 03/27/2024 8:30 AM [employer]ER - 03/27/2024 9:00 AM [employer] Surgery [facility] Periop [address] [place] [address] Burt Eastman MD [address] [address] COLONOSCOPY 04/09/2024 1:15 PM [employer] [facility] [place] [address] [place] [address] Baron Vergara MD [address] [place] [address] Scheduled Procedures Name Priority Associated Diagnoses Date/Ti me COLONOSCOPY HISTORY OF COLON POLYPS 03/27/2024 8:30 AM [employer]CH [employer] WE[employer] documented as of this encounter Procedures Procedure Name Priority Date/Time Associated Diagnosis Comments POCT INFLUENZA A & B STAT 09/10/2022 2:17 PM CDT SARS-COV-2 BY MOLECULAR STAT 09/10/2022 2:14 PM CDT XR CHEST SINGLE VIEW PORTABLE STAT 09/10/2022 1:55 PM CDT CULTURE, BLOOD STAT 09/10/2022 1:25 PM CDT CULTURE, BLOOD STAT 09/10/2022 1:24 PM CDT CMP (COMPREHENSIVE METABOLIC PANEL) STAT 09/10/2022 1:21 PM CDT CBC WITH AUTO DIFFERENTIAL STAT 09/10/2022 1:20 PM CDT LACTIC ACID (LACTATE) STAT 09/10/2022 1:20 PM CDT COMPLETE BLOOD COUNT (CBC) WITH DIFF STAT 09/10/2022 1:20 PM CDT EXTRA TUBES STAT 09/10/2022 1:13 PM CDT URINALYSIS REFLEX IF INDICATED BY ABNORMAL RESULTS STAT 09/10/2022 1:13 PM CDT GOLD TOP TUBE STAT 09/10/2022 1:13 PM CDT BLUE TOP TUBE STAT 09/10/2022 1:13 PM CDT LAVENDER TOP TUBE STAT 09/10/2022 1:1 3 PM CDT CULTURE, URINE STAT 09/10/2022 1:13 PM CDT EKG 12 LEAD STAT 09/10/2022 1:03 PM CDT CRITICAL CARE Routine 09/10/2022 12:57 PM CDT EKG SCAN 09/10/2022 12:00 AM CDT documented in this encounter Results * (ABNORMAL) POCT Influenza A & B (09/10/2022 2:17 PM CDT) POC INFLU A Presumptive negative Group A Presumptive negative Group A, Invalid, VOID POC INFLU B Positive Group B(A) Presumptive negative Group B, Invalid, VOID POC INFLUENZA CONTROL Neurosurgical Nurse Practitioner Pass 09/10/2022 2:17 PM CDT Abe Couch MD POINT OF CARE TESTING (MANUAL) Final Result * SARS-COV-2 BY MOLECULAR (09/10/2022 2:14 PM CDT) [facility] SARSCOV2 NOT DETECTED (Referenc e Range for this test is Not Detected) [facility] TREVINO ID NOW B 09/10/2022 2:59 PM CDT [facility] Comment:This test was perfor med by a MOLECULAR, NON-PCR method Other NASAL STRUCTURE / Unknown Non-Phlebotomy Collection / Unknown 09/10/2022 2:14 PM CDT 09/10/2022 2:44 PM CDT Narrative [facility] - 09/10/2022 2:59 PM CDT This test has been authorized by the FDA under an Emergency Use Authorization (EUA) only. Negative results should be treated as presumptive and, if inconsistent with clinical signs and symptoms or necessary for patient management, the patient should be tested with an alternative molecular assay. Negative results do not preclude SARS-CoV-2 infection or any other respiratory pathogen. Additional information for Clinicians can be found at: https://www.fda.gov/media/973838/download Additional information for Patients can be found at: https://www.fda.gov/media/682245/download Abe Couch MD MICROBIOLOGY - GENERAL ORDERABLES Final Result [facility] [address] [place] [address] * XR CHEST SINGLE VIEW PORTABLE (09/10/2022 1:55 PM CDT) Anatomical Region Laterality Modality Chest N/A Digital Radiogra phy 09/10/2022 2:18 PM CDT Impressions 09/10/2022 2:21 PM CDT IMPRESSION: No acute cardiopulmonary abnormality. Narrative 09/10/2022 2:21 PM CDT EXAM DESCRIPTION: XR CHEST SINGLE VIEW PORTABLE REASON FOR STUDY: Sepsis-nausea, vomiting, headache, fever x 2 days- some shortness of breath with walking today-HX HTN ?? TECHNIQUE: Single ??radiographic view(s) of the chest. COMPARISON: 02/13/2022 FINDINGS: The examination is slightly limited secondary to motion. ?? LUNGS: ??No focal opacity, pleural effusion, or pneumothorax. ?? HEART/MEDIASTINUM: ??Cardiac silhouette normal in size. Mediastinal and hilar contours appear normal. LINES/TUBES: ??None. BONES: ??No acute osseous abnormality. THIS IS AN ELECTRONICALLY VERIFIED FINAL REPORT 09/10/2022 2:18 PM - Electronically signed by ??Nael Alvarenga M.D. LL: LL D: ??09/10/2022 2:18 PM T: ??09/10/2022 2:18 PM Report ID: [id number] [place] Location: ??[id number] Procedure Note Nael Alvarenga MD - 09/10/2022 EXAM DESCRIPTION: XR CHEST SINGLE VIEW PORTABLE REASON FOR STUDY: Sepsis-nausea, vomiting, headache, fever x 2 days- some shortness of breath with walking today-HX HTN TECHNIQUE: Single radiographic view(s) of the chest. COMPARISON: 02/13/2022 FINDINGS: The examination is slightly limited secondary to motion. LUNGS: No focal opacity, pleural effusion, or pneumothorax. HEART/MEDIASTINUM: Cardiac silhouette normal in size. Mediastinal and hilar contours appear normal. LINES/TUBES: None. BONES: No acute osseous abnormality. THIS IS AN ELECTRONICALLY VERIFIED FINAL REPORT 09/10/2022 2:18 PM - Electronically signed by Nael Alvarenga M.D. LL: LL Report ID: [id number] [place] Location: [id number] IMPRESSION: No acute cardiopulmonary abnormality. Abe Couch MD IMG DIAGNOSTIC ORDERAB LES Final Result * Blood Culture #1 (09/10/2022 1:25 PM CDT) Only the most recent of2 resultswithin the time period is included. Pathologist [facility] CULTURE RESULTS NO GROWTH WITHIN 5 DAYS, FINAL RESULT 09/15/2022 3:02 PM CDT [facility] Culture BLOOD SPECIMEN / Unknown Venipuncture / Unknown 09/10/2022 1:25 PM CDT 09/10/2022 2:08 PM CDT Abe Couch MD MICROBIOLOGY - GENERAL ORDERABLES Final Result Performing Organization Address City/State/[facility] Co de Phone Number [facility] [address] [place] [address], * (ABNORMAL) CMP (Comprehensive Metabolic Panel) (09/10/2022 1:21 PM CDT) [facility] SODIUM 131(L) 136 - 144 mmol/L 09/10/2022 1:47 PM CDT [facility] POTASSIUM 3.9 3.5 - 5.1 mmol/L 09/10/2022 1:47 PM CDT [facility] CHLORIDE 92(L) 100 - 110 mmol/L 09/10/2022 1:47 PM CDT [facility] CO2, VENOUS 27 22 - 32 mmol/L 09/10/2022 1:47 PM CDT [facility] ANION GAP 15.9 8.0 - 20.0 mmol/L 09/10/2022 1:47 PM CDT [facility] GLUCOSE 144(H) 70 - 99 mg/dL 09/10/2022 1:47 PM CDT [facility] BUN 12 6 - 20 mg/dL 09/10/2022 1:47 PM CDT [facility] CREATININE, BLOOD 0.69 0.60 - 1.10 mg/dL 09/10/2022 1:47 PM [facility] BUN/CREATININE RATIO 17 12 - 20 ratio 09/10/2022 1:47 PM [facility] TOTAL PROTEIN 7.9 6.0 - 8.3 g/dL 09/10/2022 1:47 PM T [facility] ALBUMIN 3.9 3.5 - 5.0 g/dL 09/10/2022 1:47 PM [facility] Comment: The colormetric methods used for the determination of Albumin may lead to falsely elevated test results in patients suffering from renal failure or insufficiency due to interference with other proteins. A/G RATIO 1.0 1.0 - 2.0 09/10/2022 1:47 PM [facility] CALCIUM 9.3 8.7 - 10.5 mg/dL 09/10/2022 1:47 PM [facility] T BILI 0.4 0.2 - 1.2 mg/dL 09/10/2022 1:47 PM [facility] SGOT (AST) 15 <=32 U/L 09/10/2022 1:47 PM [facility] SGPT (ALT) 18 <=41 U/L 09/10/2022 1:47 PM [facility] ALKALINE PHOSPHATASE 97 35 - 105 U/L 09/10/2022 1:47 PM [facility] GFR, ESTIMATED >60 >=60 09/10/2022 1:47 PM [facility] Comment: Creatinine Clearance is the preferred criteria for selecting drug dose adjustments in renally impaired patients. ??The GFR is provided as additional pertinent clinical information. GFR is reported in mL/min/1.73 sq m. Calculation based on the Chronic Kidney Disease Epidemiology Collaboration (CKD- EPI) equation refit without adjustment for race. GFR, EST. >60 >=60 023 1:47 PM T [facility] GFR, EST. NONAFRICAN >60 >=60 09/10/2022 1:47 PM CDT [facility] Blood Venipuncture / Unknown 09/10/2022 1:21 PM CDT 09/10/2022 1:21 PM CDT us Abe Couch MD CHEMISTRY ORDERABLES F inal Result [facility] [address] [place] [address] * (ABNORMAL) CBC with Auto Differential (09/10/2022 1:20 PM CDT) WBC 8.57 4.00 - 12.00 10(3)/mcL 09/10/2022 1:26 PM CDT [facility] RBC 4.55 3.80 - 5.30 10(6)/mcL 09/10/2022 1:26 PM CDT [facility] HEMOGLOBIN (HGB) 13.2 12.0 - 15.8 g/dL 09/10/2022 1:26 PM CDT [facility] HEMATOCRIT (HCT) 42.2 36.0 - 47.0 % 09/10/2022 1:26 PM CDT [facility] MCV 92.7 82.0 - 96.0 fL 09/10/2022 1:26 PM CDT [facility] MCH 29.0 26.0 - 34.0 pg 09/10/2022 1:26 PM CDT [facility] MCHC 31.3 31.0 - 36.0 g/dL 09/10/2022 1:26 PM CDT [facility] PLATELET COUNT 198 140 - 440 10(3)/mcL 09/10/2022 1:26 PM CDT [facility] RDW 14.5 11.8 - 15.5 % 09/10/2022 1:26 PM CDT [facility] MPV 11.4 9.7 - 12.4 fL 09/10/2022 1:26 PM CDT [facility] NEUTROPHILS 87.5(H) 47.0 - 73.0 % 09/10/2022 1:26 PM CDT [facility] LYMPHOCYTES 6.1(L) 18.0 - 42.0 % 09/10/2022 1:26 PM CDT [facility] MONOCYTES 5.8 4.0 - 12.0 % 09/10/2022 1:26 PM CDT [facility] EOSINOPHILS 0.1 0.0 - 5.0 % 09/10/2022 1:26 PM CDT [facility] BASOPHILS 0.5 0.0 - 1.0 % 09/10/2022 1:26 PM CDT [facility] ABSOLUTE NEUTROPHILS 7.50 1.60 - 7.70 10(3)/[facility] 09/10/2022 1:26 PM CDT [facility] ABSOLUTE LYMPHOCYTES 0.52(L) 1.30 - 3.20 10(3)/[facility] 09/10/2022 1:26 PM CDT [facility] ABSOLUTE MONOCYTES 0.50 0.20 - 1.00 10(3)/[facility] 09/10/2022 1:26 PM CDT [facility] ABSOLUTE EOSINOPHIL 0.01 0.00 - 0.40 10(3)/[facility] 09/10/2022 1:26 PM CDT [facility] ABSOLUTE BASOPHILS 0.04 0.00 - 0.10 10(3)/[facility] 09/10/2022 1:26 PM CDT [facility] NRBC PER 100 WBC 0 09/11/19 1:26 PM CDT [facility] Blood Venipuncture / Unknown 09/10/2022 1:20 PM CDT 09/10/2022 1:20 PM CDT us Abe Couch MD HEMATOLOGY ORDERABLES Final Result [facility] [address] [place] [address] * Lactic Acid (Lactate) (09/10/2022 1:20 PM CDT) LACTIC ACID 1.8 0.5 - 2.0 mmol/L 09/10/2022 1:43 PM CDT [facility] Blood Venipuncture / Unknown 09/10/2022 1:20 PM CDT 09/10/2022 1:34 PM CDT us Abe Couch MD CHEMISTRY ORDERABLES F inal Result [facility] [address] [place] [address] * Culture, Urine (09/10/2022 1:13 PM CDT) [facility] CULTURE RESULTS ESCHERICHIA COLI 09/12/2022 3:36 PM CDT [facility] CULTURE RESULTS ALSO MIXED GROWTH OF DISTAL URETHRA CONTAMINANTS. 09/12/2022 3:36 PM CDT [facility] Urine URINE SPECIMEN / Unknown Non-Phlebotomy Collection / Unknown 09/10/2022 1:13 PM CDT 09/10/2022 1:21 PM CDT Narrative Organism Antibiotic Method Susceptibility Escherichia coli Ampicillin [facility] VITEK IIB >=32 mcg/ml: Resistant Escherichia coli Ampicillin/sulbactam [facility] IIB 16 mcg/ml: Intermediate Escherichia coli Cefazolin [facility] IIB <=4 [...] IIB <=16 mcg/ml: Susceptible Escherichia coli Piperacillin/Tazobactam [facility] VITEK II B <=4 mcg/ml: Susceptible Escherichia coli Tobramycin [facility] VITEK IIB <=1 mcg/ml: Susceptible Escherichia coli Trimeth/Sulfamethoxazole [facility] VITEK I IB <=20 mcg/ml: Susceptible us Abe Couch MD MICROBIOLOGY - GENERAL ORDERABLES Final Result [facility] [address] [place] [address], [place] * Lavender Top Tube (09/10/2022 1:13 PM CDT) Blood No Phlebotomy Charged / Unknown 09/10/2022 1:13 PM CDT 09/10/2022 1:23 PM CDT us Abe Couch MD HEMATOLOGY ORDERABLES Final Result Performing Organization Address City/[facility] [address]/ZIP Co de Phone Number [facility] [address] [place] [address] * Gold Top Tube (09/10/2022 1:13 PM CDT) Blood No Phlebotomy Charged / Unknown 09/10/2022 1:13 PM CDT 09/10/2022 1:23 PM CDT us Abe Couch MD CHEMISTRY ORDERABLES F inal Result Performing Organization Address City/[facility] [address]/ZIP Co de Phone Number [facility] [address] [place] [address] * Blue Top Tube (09/10/2022 1:13 PM CDT) Blood No Phlebotomy Charged / Unknown 09/10/2022 1:13 PM CDT 09/10/2022 1:23 PM CDT us Abe Couch MD HEMATOLOGY ORDERABLES Final Result Performing Organization Address City/[facility] [address]/ZIP Co de Phone Number [facility] [address] [place] [address] * (ABNORMAL) Urinalysis with Reflex (09/10/2022 1:13 PM CDT) SPECIFIC GRAVITY 1.010 1.003 - 1.030 09/10/2022 2:03 PM CDT [facility] URINE PH 8.0 5.0 - 9.0 09/10/2022 2:03 PM CDT [facility] WBC ESTERASE 100 /uL(A) Negative 09/10/2022 2:03 PM CDT [facility] NITRITE Negative Negative 09/10/2022 2:03 PM CDT [facility] PROTEIN, RANDOM URINE 15 mg/dL(A) Negative 09/10/2022 2:03 PM CDT [facility] URINE GLUCOSE, QUAL Negative Negative 09/10/2022 2:03 PM CDT [facility] URINE KETONES Negative Negative 09/10/2022 2:03 PM CDT [facility] UROBILINOGEN 1 mg/dL(A) Normal mg/dL 09/10/2022 2:03 PM CDT [facility] URINE BLOOD 10 /uL(A) Negative dylan/ul 09/10/2022 2:03 PM CDT [facility] URINALYSIS COLOR Yellow 09/11/19 23 2:03 PM CDT [facility] URINALYSIS CLARITY Slightly Cloudy 09/10/2022 2:03 PM CDT [facility] WBC (Urine) 11-20(A) Negative, 0-5 /hpf 09/10/2022 2:03 PM CDT [facility] URINE RBC'S 0-2 Negative, 0-2 /hpf 09/10/2022 2:03 PM CDT [facility] EPITHELIAL CELLS Large amount squamous /lpf 09/10/2022 2:03 PM CDT [facility] BACTERIA, URINE Few(A) Negative /hpf 09/10/2022 2:03 PM CDT [facility] Urine URINE SPECIMEN / Unknown Non-Phlebotomy Collection / Unknown 09/10/2022 1:13 PM CDT 09/10/2022 1:21 PM CDT us Abe Couch MD URINE ORDERABLES Final Result [facility] [address] [place] [address] * EKG 12 LEAD (09/10/2022 1:03 PM CDT) Ventricular Rate 123 BPM EXTERNAL EKG Atrial Rate 123 BPM EXTERNAL EKG P-R Interval 130 ms EXTERNAL EKG QRS Duration 92 ms EXTERNAL EKG Q-T Duration 302 ms EXTERNAL EKG QTC CALCULATION 432 ms EXTERNAL EKG P [place] 49 degrees EXTERNAL EKG R [place] -17 degrees EXTERNAL EKG T [place] 53 degrees EXTERNAL EKG 09/10/2022 1:03 PM CDT Impressions EXTERNAL EKG - 09/12/2022 4:11 PM CDT Sinus tachycardia Moderate voltage criteria for LVH, may be normal variant ( R in aVL , [place] product ) Borderline ECG When compared with ECG of 15-FEB-2022 15:06, No significant change was found Confirmed by Antony Choudhury ([id number]) on 09/12/2022 4:11:29 PM Narrative Procedure Note Antony Carroll MD - 09/12/2022 IMPRESSION: Sinus tachycardia Moderate voltage criteria for LVH, may be normal variant ( R in aVL ,[place] product ) Borderline ECG When compared with ECG of 15-FEB-2022 15:06, No significant change was found Confirmed by Antony Choudhury ([id number]) on 09/12/2022 4:11:29 PM us Abe Couch MD IMG ECG ORDERABLES Fin al Result EXTERNAL EKG * Critical Care (09/10/2022 12:57 PM CDT) Narrative Abe Couch MD - 09/10/2022 12:57 PM CDT Abe Couch MD ? 09/10/2022 ??1:48 PM Critical Care Performed by: Abe Couch MD Authorized by: Abe Couch MD Critical care provider statement: ??Critical care time (minutes): ??35 ??Critical care was necessary to treat or prevent imminent or life-threatening deterioration of the following conditions: ??Sepsis ??Critical care was time spent personally by me on the following activities: ??Evaluation of patient's response to treatment, examination of patient, obtaining history from patient or surrogate, ordering and performing treatments and interventions, ordering and review of laboratory studies, ordering and review of radiographic studies, pulse oximetry, re-evaluation of patient's condition and review of old charts ??I assumed direction of critical care for this patient from another provider in my specialty: no ?? Abe Couch MD PROCEDURE/MINOR SURGIC AL ORDERABLES Final Result * EKG SCAN (09/10/2022 12:00 AM CDT) 09/10/2022 Provider Scan IMG ECG ORDERABLES Final Result SCAN documented in this encounter Visit Diagnoses Diagnosis Influenza B- Primary Influenza with other respiratory manifestations Fever, unspecified fever cause Tachycardia Tachycardia, unspecified documented in this encounter Administered Medications Inactive Administered Medications - up to 3 most recent administrations Medication Order MAR Action Action Date Dose Rate Site acetaminophen (TYLENOL) tablet 975 mg 975 mg, Oral, ONCE, 1 dose, On 09/10/22 at 1330, Maximum dose of acetaminophen is 4000 mg from all sources in 24 hours.Indications:Pain or Fever Given 09/10/2022 2:07 PM CDT 975 mg cefTRIAXone (ROCEPHIN) injection 2 g 2 g, Intravenous, ONCE, 1 dose, On 09/10/22 at 1330, OK to use for Penicillin Allergy, Indications: Systemic Bacterial Infection, SEPSISIndications:Systemic Bacterial Infection, SEPSIS Given 09/10/2022 1:43 PM CDT 2 g ondansetron (ZOFRAN) injection 4 mg 4 mg, Intravenous, ONCE, 1 dose, On 09/10/22 at 1400 Given 09/10/2022 1:55 PM CDT 4 mg sodium chloride 0.9 % 1,000 mL IV bolus 1,000 mL, Intravenous, ONCE, 1 dose, On 09/10/22 at 1330, Administer over 1 Hours New Bag 09/10/2022 2:02 PM CDT 500 mL 1000 mL/hr sodium chloride 0.9 % 1,000 mL IV bolus 1,000 mL, Intravenous, ONCE, 1 dose, On 09/10/22 at 1330, Administer over 0.5 Hours, Patient is Obese (Body mass index is 48.1 kg/m??.). [place] Body Weight (119.3kg) is used for goal volume (3579 ml) calculation. New Bag 09/10/2022 2:00 PM CDT 1,000 mL 2000 mL/hr documented in this encounter Active and Recently Administered Medications Times are shown in CDT. Scheduled Medication Order 09/08/2022 09/09/2022 09/10/2022 acetaminophen (TYLENOL) tablet 975 mg (COMPLETED) 975 mg, Oral, ONCE, 1 dose, On 09/10/22 at 1330, Maximum dose of acetaminophen is 4000 mg from all sources in 24 hours. 1407 (Given - Provid er: Abel Andres RN) cefTRIAXone (ROCEPHIN) injection 2 g (COMPLETED) 2 g, Intravenous, ONCE, 1 dose, On 09/10/22 at 1330, OK to use for Penicillin Allergy, Indications: Systemic Bacterial Infection, SEPSIS 1343 (Given - Provid er: Abel Andres RN) ondansetron (ZOFRAN) injection 4 mg (COMPLETED) 4 mg, Intravenous, ONCE, 1 dose, On 09/10/22 at 1400 1355 (Given - Provid er: Abel Andres RN) sodium chloride 0.9 % 1,000 mL IV bolus (COMPLETED) 1,000 mL, Intravenous, ONCE, 1 dose, On 09/10/22 at 1330, Administer over 1 Hours 1402 (New Bag - Prov ider: Abel Andres RN - Comment: based on ideal body weight)1440 (Stopped - Provider: Abel Andres RN) sodium chloride 0.9 % 1,000 mL IV bolus(Linked Group 1) 1,000 mL, Intravenous, ONCE, 1 dose, On 09/10/22 at 1330, Administer over 0.5 Hours, Patient is Obese (Body mass index is 48.1 kg/m??.). [place] Body Weight (119.3kg) is used for goal volume (3579 ml) calculation. 1330 (Not Given - Pr ovider: Abel Andres RN - Reason: Order parameters not met - Comment: basing on ideal body weight) sodium chloride 0.9 % 1,000 mL IV bolus (COMPLETED)(Linked Group 1) 1,000 mL, Intravenous, ONCE, 1 dose, On 09/10/22 at 1330, Administer over 0.5 Hours, Patient is Obese (Body mass index is 48.1 kg/m??.). [place] Body Weight (119.3kg) is used for goal volume (3579 ml) calculation. 1400 (New Bag - Prov ider: Abel Andres RN)1440 (Stopped - Provider: Abel Andres RN) sodium chloride 0.9 % 750 mL IV bolus(Linked Group 1) 750 mL, Intravenous, ONCE, 1 dose, On 09/10/22 at 1330, Administer over 0.375 Hours, Patient is Obese (Body mass index is 48.1 kg/m??.). [place] Body Weight (119.3kg) is used for goal volume (3579 ml) calculation. 1330 (Not Given - Pr ovider: Abel Andres RN - Reason: Other - see comment - Comment: basing on ideal body weight) Linked Groups Order Group 1: sodium chloride 0.9 % 1,000 mL IV bolusJump to med 1,000 mL, Intravenous, ONCE, 1 dose, On 09/10/22 at 1330, Administer over 0.5 Hours, Patient is Obese (Body mass index is 48.1 kg/m??.). [place] Body Weight (119.3kg) is used for goal volume (3579 ml) calculation. Followed by sodium chloride 0.9 % 1,000 mL IV bolus (COMPLETED)Jump to med 1,000 mL, Intravenous, ONCE, 1 dose, On 09/10/22 at 1330, Administer over 0.5 Hours, Patient is Obese (Body mass index is 48.1 kg/m??.). [place] Body Weight (119.3kg) is used for goal volume (3579 ml) calculation. Followed by sodium chloride 0.9 % 750 mL IV bolusJump to med 750 mL, Intravenous, ONCE, 1 dose, On 09/10/22 at 1330, Administer over 0.375 Hours, Patient is Obese (Body mass index is 48.1 kg/m??.). [place] Body Weight (119.3kg) is used for goal volume (3579 ml) calculation. documented in this encounter Additional Health Concerns Infection Onset Date Last Indicated Resolved Time COVID - 19 09/10/2022 09/10/2022 09/20/2022 12:1 8 AM CDT Respiratory Rule-Out 09/10/2022 09/10/2022 023 12:18 AM CDT Influenza 09/10/2022 09/10/2022 09/17/2022 12:1 7 AM CDT documented as of this encounter Care Teams Catering Director Relationship Specialty Start Date End Date Daja Kern MD [address] [place] [address] PCP - General Internal Medicine 03/13/15 documented as of this encounter
--- OUTSIDE RECORDS SUMMARY | 2024-03-03 19:27 | XMS_ITS | Encounter Summary ---
Author Organization [facility] Address [address] [place] [address] Phone Care Team Providers Care Lean Manufacturing Coordinator Name Role Phone Daja Kern MD Primary Care Provider [phone] Reason for Visit * Reason Onset Date Comments ED Follow-up 09/11/2022 Encounter Details Date Type Department Care Team (Late st Contact Info) Description 09/11/2022 Telephone [facility] Emergency [address] [place] [id number] Rachael Osman RN [place] ED Follow-up Social History Tobacco Use Types Packs/Day [...] PM CDT documented as of this encounter Miscellaneous Notes * Telephone Encounter - Rachael Osman RN - 09/11/2022 6:[address] Longoria reviewed patient's positive blood culture and originally ordered bactrim DS however patient has a sulfa allergy therefore he would now like to start patient on Keflex. Patient contacted and results discussed and patient requesting prescription to be sent to [facility] in [place]. documented in this encounter Plan of Treatment Upcoming Encounters Date Type Department Care Team (Late st Contact Info) Description 03/27/2024 8:30 AM PANEL CUTTER [facility] [address] [place] [address] Burt Eastman MD [address] [address] 03/27/2024 8:30 AM PANEL CUTTER - 03/27/2024 9:00 AM PANEL CUTTER [facility] [address] [place] [address] Burt Eastman MD [address] [address] COLONOSCOPY 04/09/2024 1:15 PM PANEL CUTTER Office Visit [facility] - Pulmonology & Sleep Medicine [facility] [address] [place] [address] Baron Vergara MD [address] [place] [address] Scheduled Procedures Name Priority Associated Diagnoses Date/Ti me COLONOSCOPY HISTORY OF COLON POLYPS 03/27/2024 8:30 AM PANEL CUTTER documented as of this encounter Visit Diagnoses Not on filedocumented in this encounter Additional Health Concerns Infection Onset Date Last Indicated Resolved Time COVID - 19 09/10/2022 09/10/2022 09/20/2022 12:1 8 AM CDT Respiratory Rule-Out 09/10/2022 09/10/2022 023 12:18 AM CDT Influenza 09/10/2022 09/10/2022 09/17/2022 12:1 7 AM CDT documented as of this encounter Care Teams Lean Manufacturing Coordinator Relationship Specialty Start Date End Date Daja Kern MD [address] [place] [id number] PCP - General Internal Medicine 03/13/15 documented as of this encounter
--- OUTSIDE RECORDS SUMMARY | 2024-03-03 19:27 | XMS_ITS | Encounter Summary ---
Author Organization [facility] Address [address] [place] [address] Phone Care Team Providers Care Feed Crusher Operator Name Role Phone Daja Kern MD Primary Care Provider [phone] Reason for Visit * Auth/Cert (Routine) Specialty Diagnoses / Procedures Referred By Contac t Referred To Contact Referral ID Status Reason Start Date Expiration Date Visits Re quested Visits Authorized [id number] 1 1 Encounter Details Date Type Department Care Team (Late st Contact Info) Description 02/25/2022 10:00 AM RECEIVING DOCK CHECKER [facility] [address] [place] [address] Tami Healy, BEDSPREAD CUTTER HAND PT - HOME VISIT Social History Tobacco [...] Coronavirus/COVID-19? No / Unsure 02/24/2022 12:13 PM RECEIVING DOCK CHECKER documented as of this encounter Last Filed Vital Signs Vital Sign Reading Time Taken Comments Blood Pressure 124/90 02/25/2022 9:16 AM RECEIVING DOCK CHECKER Pulse 113 02/25/2022 9:16 AM RECEIVING DOCK CHECKER Temperature 36.9 ??C (98.4 ??F) 02/25/2022 9:16 AM CS T Respiratory Rate 18 02/25/2022 9:16 AM RECEIVING DOCK CHECKER Oxygen Saturation 94% 02/25/2022 9:16 AM RECEIVING DOCK CHECKER Inhaled Oxygen Concentration - - Weight - - Height - - Body Mass Index - - documented in this encounter Plan of Treatment Upcoming Encounters Date Type Department Care Team (Late st Contact Info) Description 03/27/2024 8:30 AM RECEIVING DOCK CHECKER [facility] [address] [place] [address] Burt Eastman MD [address] [address] 03/27/2024 8:30 AM RECEIVING DOCK CHECKER - 03/27/2024 9:00 AM RECEIVING DOCK CHECKER [facility] [address] [place] [address] Burt Eastman MD [address] [address] COLONOSCOPY 04/09/2024 1:15 PM RECEIVING DOCK CHECKER Office Visit [facility] - Pulmonology & Sleep Medicine [facility] [address] [place] [address] Baron Vergara MD [address] [place] [address] Scheduled Procedures Name Priority Associated Diagnoses Date/Ti me COLONOSCOPY HISTORY OF COLON POLYPS 03/27/2024 8:30 AM RECEIVING DOCK CHECKER documented as of this encounter Visit Diagnoses Not on filedocumented in this encounter Additional Health Concerns Infection Onset Date Last Indicated Resolved Time Respiratory Rule-Out 02/08/2022 02/08/2022 023 12:16 AM RECEIVING DOCK CHECKER COVID - 19 Confirmed 02/08/2022 02/08/2022 023 12:16 AM RECEIVING DOCK CHECKER documented as of this encounter Home Health Visit - Care Plan Visit Details Visit Type -PT - HOME VISIT Discipline -Physical Therapy Problems Problem Description Start Date Status Goals Interve ntions [facility] COVID-19 Disciplines: SN, PT, OT, IMAGE ARCHIVIST, COOLING PAN TENDER, RT 02/11/2022 Active 1 goal linked to scheduled/document ed intervention 1 goal intervention scheduled/documen arnulfo in this visit PAIN-MANAGEMENT /EDUCATION Disciplines: Skilled Clinicians 02/11/2022 Active 1 goal linked to scheduled/document [...] and home management strategies by date 02/26/22 [facility] COVID-19 No Pain Management/Education Description: Shared goal applicable to all disciplines with visit frequency order. Patient's pain level will remain at an acceptable level of 3 or lower with current pain medications/interventions. Target date: by 04/02/22 PAIN-MANAGEMENT/EDUCATION No Physical Therapy Evaluation Description: After assessing the patient and discussing the patient's goals the following were identified: Patient centered termite control representative goal: walk longer distances with appropriate vital sign response. Target Date: within 3 weeks PHYSICAL THERAPY EVALUATION (O) No PT Bed Mobility Description: Short Term [...] met by 03/05/22. PT COMPREHENSIVE No PT Transfers Description: Short Term Goal: Patient will perform sit to stand/pivot transfers independently with use of device as needed ; in order to safely negotiate home. To be met by 03/05/22. PT COMPREHENSIVE No PT HEP/Strength and Exercise Description: HEP Goals: [...] social distancing, aerosolizing procedures, and COVID-19 precautions. Problem:/[facility] COVID-19 Goal:COVID-19 Completed Is patient experiencing any new or worsening COVID-19 symptoms? No COVID-19 education provided: Call Home Care if pulse ox remains below 90% Instruction provided to Patient. Response verbalize understanding Pain Management/Education (O) Description: Instruct patient/ caregiver on strategies to manage pain. Problem:PAIN-MANAGEME NT/EDUCATION Goal:Pain Management/Education Completed Pain management plan: 1. Set a [...] breathing to assist with focus. Instruction provided consider using rollator when going out to walk longer distances ([employer]) for pain control of back/left hip and a seat prn Instruction provided to Patient. Response verbalize understanding. Therapy Depression (O) Description: Assess and monitor for signs and symptoms of depression. Problem:THERAPY DISEASE MANAGEMENT (O) Completed Patient shows signs of depression yes Symptoms reported to physician no aware of situation Physical Therapy General (Order Only) Description: Clinical findings: 51 year old female inpatient 02/08/22-02/10/22 with hypoxia and acute respiratory failure. She was found to have Covid-19 and influenza A on 02/08/22. Patient was back in ED on 02/13/22 with headache, dizziness and cough. Patient answers the door to [facility] walking with cane CGA. She ambulates 100 [...] Mobility Completed Bed mobility training consisting of: supine to sit, sit to supine and raising feet onto bed. Assistance required: be independent With use of head board and mattress as needed. Skills provided: Safety instruction consider bed rail . Tolerance to activity: Pulse ox reading stayed above 90% during therapy session Instruction provided to Patient. Response return demonstration. Progress toward goal: met PT Ambulation Description: Provide gait training for increased safety and efficiency. Progress per patient tolerance and safety. Problem:PT COMPREHENSIVE Goal:PT Ambulation Completed Patient ambulated Independently 100 feet with use of Straight cane. WBAT Bilateral lower extremity over even surfaces with the following gait characteristics moderate pace, no balance losses, reports of pain in left hip, feet passing each other, breathing heavy audible, O2 sats stayed above 90% during therapy session. Skills provided: Safety instruction may consider rollator for long distance walking and resting potential as needed . Tolerance to activity Pulse ox reading 94% and higher. Instruction provided to Patient. Response return demonstration. Progress toward goal: partially met. Patient does has high resting heart rate. Patient reported probably because I'm in pain PT Transfers Description: Instruct in proper safety and transfer technique. Problem:PT COMPREHENSIVE Goal:PT Transfers Completed Transfer training provided this date Sit to/from stand . Level of support required for safety independently. Assistive devices used: Arm rest Skill provided Proper hand placement and Safety instructions have cane next to chair to use as needed after getting into standing position ready to walk. Tolerance to activity good Instruction provided to Patient. Response verbalize understanding. Progress toward goal: partially met PT HEP/Strength and Exercise Description: Instruct on therapeutic exercises and home exercise program. Progress as tolerated. Problem:PT COMPREHENSIVE Goal:PT HEP/Strength and Exercise Completed Therapeutic exercise instruction this date laying on back in bed performing B L/E's AROM x 10-20 consisting of ankle DF/PF, partial bridging, assisted straight leg raises on L L/E active straight leg raises on right, heel slides, and hip abduction with left hip pain reported 6/10. Patients motions were fast with decreased relaxation of muscle between reps. Skills provided: Initial instruction in technique, reps, and frequency to perform Home Exercise Program issued supine handouts to be given to patient next visit Instruction provided to Patient. Response verbalize understanding and return demonstration. Progress toward goal: partially met documented in this encounter Care Teams Feed Crusher Operator Relationship Specialty Start Date End Date Daja Kern MD [address] [place] [address] PCP - General Internal Medicine 03/13/15 documented as of this encounter
--- OUTSIDE RECORDS SUMMARY | 2024-03-03 19:27 | XMS_ITS | Encounter Summary ---
Author Organization [facility] Address [address] [place] [address] Phone Care Team Providers Care Rouge Sifter And Miller Name Role Phone Daja Kern MD Primary Care Provider [phone] Encounter Details Date Type Department Care Team (Late st Contact Info) Description 05/30/2022 6:58 PM CDT - 05/30/2022 9:12 PM CDT Emergency [facility] Emergency [address] [place] [address] Discharge Disposition: LWBS Social History [...] Coronavirus/COVID-19? No / Unsure 05/02/2022 9:59 AM ASSISTANT MANAGER documented as of this encounter Medications at [...] st Contact Info) Description 03/27/2024 8:30 AM ASSISTANT MANAGER Hospital Encounter [facility] Periop [facility] [place] [address] Burt Eastman MD [address] [address] 03/27/2024 8:30 AM ASSISTANT MANAGER - 03/27/2024 9:00 AM ASSISTANT MANAGER [facility] [address] [place] [address] Burt Eastman MD [address] [address] COLONOSCOPY 04/09/2024 1:15 PM ASSISTANT MANAGER [facility] - [place] [address] [place] [address] Baron Vergara MD [address] [place] [address] Scheduled Procedures Name Priority Associated Diagnoses Date/Ti me COLONOSCOPY HISTORY OF COLON POLYPS 03/27/2024 8:30 AM ASSISTANT MANAGER documented as of this encounter Visit Diagnoses Not on filedocumented in this encounter Care Teams Rouge Sifter And Miller Relationship Specialty Start Date End Date Daja Kern MD [address] [place] [address] PCP - General Internal Medicine 03/13/15 documented as of this encounter
--- OUTSIDE RECORDS SUMMARY | 2024-03-03 19:27 | XMS_ITS | Encounter Summary ---
Author Organization [facility] Address [address] [place] [address] Phone Care Team Providers Care Puttier Name Role Phone Daja Kern MD Primary Care Provider [phone] Reason for Visit * Reason Comments Wound Check Encounter Details Date Type Department Care Team (Late st Contact Info) Description 11/29/2022 3:02 PM CDT - 11/29/2022 4:48 PM CDT Emergency [facility] Emergency [address] [place] [address] Discharge Disposition: LWBS Social History [...] Sign Reading Time Taken Comments Blood Pressure 116/60 11/29/2022 3:00 PM CDT Pulse 99 11/29/2022 3:00 PM CDT Temperature 36.1 ??C (96.9 ??F) 11/29/2022 3:00 PM CD T Respiratory Rate 16 11/29/2022 3:00 PM CDT Oxygen Saturation 97% 11/29/2022 3:00 PM CDT Inhaled Oxygen Concentration - - Weight 120.2 kg (265 lb) 11/29/2022 3:00 PM CDT Height 157.5 cm (5' 2 ) 11/29/2022 3:00 PM CDT Body Mass Index 48.47 11/29/2022 3:00 PM CDT documented in this encounter Medications [...] as of this encounter ED Notes * Destiny Mai RN - 11/29/2022 4:48 PM CDT Pt told siding stapler she has a ride on the way and was leaving. LWBS. * Sharri Rdz RN - 11/29/2022 3:01 PM CDT Patient to ED with complaints of pain and redness to skin under right breast. Patient states it started on week ago. She denies fevers or chills. documented in this encounter Plan of Treatment Upcoming Encounters Date Type Department Care Team (Late st Contact Info) Description 03/27/2024 8:30 AM [facility] [address] [place] [address] Burt Eastman MD [address] [address] 03/27/2024 8:30 AM NURSE CASE MANAGER - 03/27/2024 9:00 AM [facility] [address] [place] [address] Burt Eastman MD [address] [address] COLONOSCOPY 04/09/2024 1:15 PM NURSE CASE MANAGER Office Visit [facility] - Pulmonology & Sleep Medicine [facility] [address] [place] [address] Baron Vergara MD [address] [place] [address] Scheduled Procedures Name Priority Associated Diagnoses Date/Ti me COLONOSCOPY HISTORY OF COLON POLYPS 03/27/2024 8:30 AM NURSE CASE MANAGER documented as of this encounter Visit Diagnoses Not on filedocumented in this encounter Care Teams Puttier Relationship Specialty Start Date End Date Daja Kern MD [address] [place] [address] PCP - General Internal Medicine 03/13/15 documented as of this encounter
--- OUTSIDE RECORDS SUMMARY | 2024-03-03 19:27 | XMS_ITS | Encounter Summary ---
Author Organization [facility] Address [address] [place] [address] Phone Care Team Providers Care Glass Bender Name Role Phone Daja Kern MD Primary Care Provider [phone] Reason for Referral * Radiology Services (Routine) - Closed Specialty Diagnoses / Procedures Referred By Contac t Referred To Contact Radiology Diagnoses Abdominal pain, right upper quadrant Procedures US ABDOMEN LIMITED LEVEL 3 THREE ORGAN Daja Kern MD [address] [place] [address] Phone: tel: fax: Referral ID Status Reason Start Date Expiration Date Visits Re quested Visits Authorized [id number] Closed 04/18/2022 1 1 RONMENTAL ENGINEERING INTERN Encounter Details Date Type Department Care Team (Late st Contact Info) Description 04/18/2022 Transcribe Orders [facility] Scheduling 1 [place] [id number] Daja Kern MD [address] [place] [address] Abdominal pain, right upper quadrant (Primary Dx) Social History Tobacco Use Types [...] Coronavirus/COVID-19? No / Unsure 03/24/2022 10:26 AM ENVIRONMENTAL ENGINEERING INTERN documented as of this encounter Plan of Treatment Upcoming Encounters Date Type Department Care Team (Late st Contact Info) Description 03/27/2024 8:30 AM ENVIRONMENTAL ENGINEERING INTERN Hospital [facility] [address] [place] [address] Burt Eastman MD [address] [address] 03/27/2024 8:30 AM ENVIRONMENTAL ENGINEERING INTERN - 03/27/2024 9:00 AM ENVIRONMENTAL ENGINEERING INTERN [facility] [address] [place] [address] Burt Eastman MD [address] [address] COLONOSCOPY 04/09/2024 1:15 PM ENVIRONMENTAL ENGINEERING INTERN [facility] [address] [place] [address] Baron Vergara MD [address] [place] [address] Scheduled Procedures Name Priority Associated Diagnoses Date/Ti me COLONOSCOPY HISTORY OF COLON POLYPS 03/27/2024 8:30 AM ENVIRONMENTAL ENGINEERING INTERN documented as of this encounter Results * US ABDOMEN LIMITED LEVEL 3 THREE ORGAN (05/02/2022 10:32 AM ENVIRONMENTAL ENGINEERING INTERN) Anatomical Region Laterality Modality Abdomen N/A Ultrasound 05/02/2022 6:34 PM ENVIRONMENTAL ENGINEERING INTERN Impressions 05/02/2022 6:37 PM ENVIRONMENTAL ENGINEERING INTERN IMPRESSION: ?? 1. ?? Mild hepatomegaly and mild hepatic steatosis. Narrative 05/02/2022 6:37 PM ENVIRONMENTAL ENGINEERING INTERN EXAM DESCRIPTION: ?? US ABDOMEN LIMITED LEVEL [...] Electronically signed by ??Gallo Vazquez M.D. RL: GUILLE D: ??05/02/2022 6:34 PM T: ??05/02/2022 6:34 PM Report ID: [id number] Reading Location: ??[id number] Procedure Note Gallo Vazquez MD - 05/02/2022 [...] Electronically signed by Gallo Vazquez M.D. RL: GUILLE Report ID: [id number] Reading Location: [place] [address] IMPRESSION: 1. Mild hepatomegaly and mild hepatic steatosis. Daja Kern MD [facility] US ORDERABLES Final Resul t documented in this encounter Visit Diagnoses Diagnosis Abdominal pain, right upper quadrant- Primary Abdominal pain, right upper quadrant documented in this encounter Care Teams Glass Bender Relationship Specialty Start Date End Date Daja Kern MD [address] [place] [address] PCP - General Internal Medicine 03/13/15 documented as of this encounter
--- OUTSIDE RECORDS SUMMARY | 2024-03-03 19:27 | XMS_ITS | Encounter Summary ---
Author Organization [facility] [facility] Care Team Providers Care Computer Systems Designer Name Role Phone Daja Kern MD Primary Care Provider [phone] Encounter Details Date Type Department Care Team (Latest Contact Info) Description 03/15/2022 Travel Social History Tobacco Use Types Packs/Day [...] Coronavirus/COVID-19? No / Unsure 03/15/2022 2:52 PM FOOD AND DRINK FACTORY WORKERS documented as of this encounter Plan of Treatment Upcoming Encounters Date Type Department Care Team (Late st Contact Info) Description 03/27/2024 8:30 AM FOOD AND DRINK FACTORY WORKERS [facility] [address] [place] [address] Burt Eastman MD [address] [address] 03/27/2024 8:30 AM FOOD AND DRINK FACTORY WORKERS - 03/27/2024 9:00 AM FOOD AND DRINK FACTORY WORKERS [facility] [address] [place] [address] Burt Eastman MD [address] [address] COLONOSCOPY 04/09/2024 1:15 PM FOOD AND DRINK FACTORY WORKERS [facility] [address] [place] [address] Baron Vergara MD [address] [place] [address] Scheduled Procedures Name Priority Associated Diagnoses Date/Ti me COLONOSCOPY HISTORY OF COLON POLYPS 03/27/2024 8:30 AM [employer] AND DRINK FACTORY WORKERS documented as of this encounter Visit Diagnoses Not on filedocumented in this encounter Care Teams Computer Systems Designer Relationship Specialty Start Date End Date Daja Kern MD [address] [place] [address] PCP - General Internal Medicine 03/13/15 documented as of this encounter
--- OUTSIDE RECORDS SUMMARY | 2024-03-03 19:27 | XMS_ITS | Encounter Summary ---
Author Organization [facility] Address [address] [place] [address] Phone Care Team Providers Care Manual Lathe Machinist Name Role Phone Daja Kern MD Primary Care Provider [phone] Reason for Visit * Auth/Cert (Routine) Specialty Diagnoses / Procedures Referred By Contac t Referred To Contact Referral ID Status Reason Start Date Expiration Date Visits Re quested Visits Authorized 1 1 Encounter Details Date Type Department Care Team (Late Contact Info) Description 03/07/2022 [facility] [address] [place] [address] Bailey Hoover OTA IN CASE COMMUNICATION Social History Tobacco Use Types [...] Coronavirus/COVID-19? No / Unsure 02/24/2022 12:13 PM AUTOMATIC BEADING LATHE OPERATOR documented as of this encounter Plan of Treatment Upcoming Encounters Date Type Department Care Team (Late Contact Info) Description 03/27/2024 8:30 AM AUTOMATIC BEADING LATHE OPERATOR [facility] [address] [place] [address] Burt Eastman MD [address] [address] 03/27/2024 8:30 AM AUTOMATIC BEADING LATHE OPERATOR - 03/27/2024 9:00 AM AUTOMATIC BEADING LATHE OPERATOR [facility] [address] [place] [address] Burt Eastman MD [address] [address] COLONOSCOPY 04/09/2024 1:15 PM AUTOMATIC BEADING LATHE OPERATOR [facility] [place] [facility] [address] [place] [address] Baron Vergara MD [address] [place] [address] Scheduled Procedures Name Priority Associated Diagnoses Date/Ti me COLONOSCOPY HISTORY OF COLON POLYPS 03/27/2024 8:30 AM AUTOMATIC BEADING LATHE OPERATOR documented as of this encounter Visit Diagnoses Not on filedocumented in this encounter Care Teams Manual Lathe Machinist Relationship Specialty Start Date End Date Daja Kern MD [address] [place] [address] PCP - General Internal Medicine 03/13/15 documented as of this encounter
--- OUTSIDE RECORDS SUMMARY | 2024-03-03 19:27 | XMS_ITS | Encounter Summary ---
Author Organization [facility] Address [address] [place] [address] Phone Care Team Providers Care Animal Rides Manager Name Role Phone Daja Kern MD Primary Care Provider [phone] Reason for Visit * Reason Comments Leg Problem Encounter Details Date Type Department Care Team ([facility] Contact Info) Description 10/02/2022 8:17 PM CDT - 10/02/2022 10:38 PM CDT Emergency [facility] Emergency [address] [place] [address] Mathew Pringle, PRODUCTION MACHINE SHOP SUPERVISOR, STERILIZATION TECH [address] [place] [address] Hypomagnesemia Discharge Disposition: Discharged to home or Selfcare [...] Sign Reading Time Taken Comments Blood Pressure 138/98 10/02/2022 10:30 PM CDT Pulse 90 10/02/2022 10:30 PM CDT Temperature 36.7 ??C (98 ??F) 10/02/2022 8:22 PM CDT Respiratory Rate 18 10/02/2022 10:30 PM CDT Oxygen Saturation 99% 10/02/2022 10:30 PM CDT Inhaled Oxygen Concentration - - Weight 115.7 kg (255 lb) 10/02/2022 8:22 PM CDT Height 157.5 cm (5' 2 ) 10/02/2022 8:22 PM CDT Body Mass Index 46.64 10/02/2022 8:22 PM CDT documented in this encounter Discharge Instructions * Attachments The following attachments cannot be sent through Care Everywhere. * Hypomagnesemia (Irish) * Muscle Cramps and Spasms (Irish) documented in this encounter Medications at Time [...] as of this encounter ED Notes * Mukesh Sue RN - 10/02/2022 10:35 PM CDT Patient discharged. Discharge instructions and patient educational material reviewed with patient; questions and concerns addressed; patient verbalizes understanding, using teach back. Patient was given 1 prescriptions. Patient was informed no drinking alcohol, driving or operating heavy machinery while taking narcotics or muscle relaxants. Patient discharged per ambulatory mode with self as responsible alliance party. SL D/C'ed with Chadwick cath intact. * Mukesh Sue RN - 10/02/2022 10:30 PM CDT Pt medicated per provider orders. Pt educated on intended effects and side effects of medication and verbalized understanding, able to provide teach back of education. * Mukesh Sue RN - 10/02/2022 10:00 PM CDT Patient is resting in room with call light at bedside. Patient informed about wait time and verbalizes understanding. Patient denies needs at this time and verbalizes understanding that RN will complete hourly rounding. * Mukesh Sue RN - 10/02/2022 9:25 PM CDT Pt medicated per provider orders. Pt educated on intended effects and side effects of medication and verbalized understanding, able to provide teach back of education. Pt medicated per provider orders. * Mathew Pringle APRN, STERILIZATION TECH - 10/02/2022 9:00 PM CDT Chief Complaint Patient presents with ??? Leg Problem Patient presents for evaluation of muscle cramping in the posterior aspect of both lower legs as well as in her feet since yesterday. No history of similar symptoms. She has previously taken baclofenfor low back pain but states that was ineffective. She believes she has been well hydrated, reporting intake of 1/2 gallon of cranberry juice and several bottles of water today. No change in her medications as of late. Denies any heat exposure. Reports some swelling in lower legs yesterday. No lossof ROM but states she has been walking with a walker due to muscle spasms. She normally ambulates with a cane. Current Facility-Administered Medications Medication Dose Route Frequency Provider Last Rate Last Admin ??? magnesium oxide (MAG-OX) tablet 400 mg 400 mg Oral Once Mathew Pringle APRN, STERILIZATION TECH Current Outpatient Medications Medication Sig Dispense Refill [...] POLYPS, BIOPSIES; Surgeon: Damian Gallardo DO; Location: [facility]; Service: Gastroenterology ??? EGD 2012? [facility] ??? UPPER GASTROINTESTINAL ENDOSCOPY N/A 02/06/2019 Procedure: EGD, SMALL BOWEL BIOSY, GASTRIC POLYP, SAMANTHA TEST; Surgeon: Damian Gallardo DO; Location: [facility]; Service: Gastroenterology ??? WISDOM TOOTH [...] Narrative ??? Not on file BP (!) 142/92 Pulse 93 Temp 98 ??F (36.7 ??C) (Tympanic) Resp 16 Ht 5' 2 (1.575 m) Wt 255 lb (115.7 kg) LMP 11/12/2019 SpO2 97% BMI 46.64 kg/m?? Review of Systems Constitutional: Negative for [...] bleeding, vaginal discharge and vaginal pain. Musculoskeletal: Positive for myalgias. Negative for arthralgias, back pain, gait problem, joint swelling and neck pain. Reports muscle spasms in posterior aspect of both lower legs as well as in her feet Skin: Negative for color change, pallor, rash and wound. Allergic/Immunologic: Negative for immunocompromised state. Neurological: Negative for dizziness, tremors, seizures, speech difficulty, weakness, light-headedness, numbness and headaches. Hematological: Negative for adenopathy. Does not bruise/bleed easily. Psychiatric/Behavioral: Negative for agitation, confusion, decreased concentration, hallucinations and suicidal ideas. The patient is not nervous/anxious. Physical Exam Vitals and nursing note [...] Normal range of motion and neck supple. Comments: I do not appreciate swelling lower extremities. No posterior calf tenderness No cords Lymphadenopathy: Cervical: No cervical adenopathy. Skin: General: [...] Thought content normal. Judgment: Judgment normal. Procedures Imaging Results None Labs Reviewed CMP (COMPREHENSIVE METABOLIC PANEL) - Abnormal; Notable for the following components: Result Value SODIUM 135 (*) CHLORIDE 97 (*) GLUCOSE 153 (*) CREATININE, BLOOD 0.55 (*) BUN/CREATININE RATIO 25 (*) All other components within normal limits MAGNESIUM (MG) - Abnormal; Notable for the following components: MAGNESIUM 1.4 (*) All other components within normal limits COMPLETE BLOOD COUNT (CBC) WITH DIFF Narrative: The following orders were created for panel order CBC with Diff [id number]. Procedure Abnormality Status --------- ------ CBC with Auto Differential[[id number]] Final result Please view results for these tests on the individual orders. CREATINE KINASE (CK) TOTAL CBC WITH AUTO DIFFERENTIAL MDM Clinical Impression 1. Hypomagnesemia 2. Muscle cramp Disposition: No Disposition Selected 2199 this is a 51-year-old female that presented for evaluation of cramping in bilateral lower extremities. Renal function normal. Potassium level normal. Magnesium was low and replaced. Patient was hydrated. She was given a dose of Valium with improvement in her pain thereafter. I have personally reviewed all diagnostic data with the patient. [address] Couch at the end of my shift. CPK pending Cosigned by Abe Couch MD at 10/20/2022 6:33 AM CDT Associated attestation - Abe Couch MD - 10/20/2022 6:33 AM CDT I saw and examined the patient with the PLAYGROUND AIDE/PA on 10/02/2022. I personally performed the exam and medical decision making. I agree with the PLAYGROUND AIDE/PA???s chief complaint, history, exam, and medical decision with the following additions/revisions: - CPK is unremarkable, patient can be discharged * Mukesh Sue RN - 10/02/2022 9:00 PM CDT Patient is resting in room with call light at bedside. Patient informed about wait time and verbalizes understanding. Patient denies needs at this time and verbalizes understanding that RN will complete hourly rounding. * Kit Gan RN - 10/02/2022 8:20 PM CDT Pt to ER room 10 w/c/o pain and cramping in bilateral legs starting yesterday. Pt denies recent injury or Hx of problem but states that she has degenerative disk disease. Pt alert and oriented x 4 with respirations that are even and ulabored documented in this encounter Plan of Treatment Upcoming Encounters Date Type Department Care Team (Late st Contact Info) Description 03/27/2024 8:30 AM COMMERCIAL SHRIMPING CAPTAIN Hospital En[facility] Periop [address] [place] [address] Burt Eastman MD [address] [address] 03/27/2024 8:30 AM COMMERCIAL SHRIMPING CAPTAIN - 03/27/2024 9:00 AM COMMERCIAL SHRIMPING CAPTAIN Surgery [facility] Per[facility] [address] [place] [address] Burt Eastman MD [address] [address] COLONOSCOPY 04/09/2024 1:15 PM COMMERCIAL SHRIMPING CAPTAIN Office Visit [facility] - Pulmonology & Sleep Medicine - [place] [address] [facility] [id number] Baron Vergara MD [address] [place] [address] Scheduled Procedures Name Priority Associated Diagnoses Date/Ti me COLONOSCOPY HISTORY OF COLON POLYPS 03/27/2024 8:30 AM COMMERCIAL SHRIMPING CAPTAIN documented as of this encounter Procedures Procedure Name Priority Date/Time Associated Diagnosis Comments CBC WITH AUTO DIFFERENTIAL STAT 10/02/2022 8:25 PM CDT MAGNESIUM (MG) STAT 10/02/2022 8:25 PM CDT CREATINE KINASE (CK) TOTAL STAT 10/02/2022 8:25 PM CDT CMP (COMPREHENSIVE METABOLIC PANEL) STAT 10/02/2022 8:25 PM CDT COMPLETE BLOOD COUNT (CBC) WITH DIFF STAT 10/02/2022 8:25 PM CDT documented in this encounter Results * CBC with Auto Differential (10/02/2022 8:25 PM CDT) WBC 7.23 4.00 - 12.00 10(3)/mcL 10/02/2022 9:20 PM CDT [facility] RBC 4.08 3.80 - 5.30 10(6)/mcL 10/02/2022 9:20 PM CDT [facility] HEMOGLOBIN (HGB) 12.2 12.0 - 15.8 g/dL 10/02/2022 9:20 PM CDT [facility] HEMATOCRIT (HCT) 38.9 36.0 - 47.0 % 10/02/2022 9:20 PM CDT [facility] MCV 95.3 82.0 - 96.0 fL 10/02/2022 9:20 PM CDT [facility] MCH 29.9 26.0 - 34.0 pg 10/02/2022 9:20 PM CDT [facility] MCHC 31.4 31.0 - 36.0 g/dL 10/02/2022 9:20 PM CDT [facility] PLATELET COUNT 221 140 - 440 10(3)/mcL 10/02/2022 9:20 PM CDT [facility] RDW 14.7 11.8 - 15.5 % 10/02/2022 9:20 PM CDT [facility] MPV 11.7 9.7 - 12.4 fL 10/02/2022 9:20 PM CDT [facility] NEUTROPHILS 64.4 47.0 - 73.0 % 10/02/2022 9:20 PM CDT [facility] LYMPHOCYTES 25.4 18.0 - 42.0 % 10/02/2022 9:20 PM CDT [facility] MONOCYTES 6.9 4.0 - 12.0 % 10/02/2022 9:20 PM CDT [facility] EOSINOPHILS 3.0 0.0 - 5.0 % 10/02/2022 9:20 PM CDT [facility] BASOPHILS 0.3 0.0 - 1.0 % 10/02/2022 9:20 PM CDT [facility] ABSOLUTE NEUTROPHILS 4.65 1.60 - 7.70 10(3)/mcL 10/02/2022 9:20 PM CDT [facility] ABSOLUTE LYMPHOCYTES 1.84 1.30 - 3.20 10(3)/mcL 10/02/2022 9:20 PM CDT [facility] ABSOLUTE MONOCYTES 0.50 0.20 - 1.00 10(3)/mcL 10/02/2022 9:20 PM CDT [facility] ABSOLUTE EOSINOPHIL 0.22 0.00 - 0.40 10(3)/mcL 10/02/2022 9:20 PM CDT [facility] ABSOLUTE BASOPHILS 0.02 0.00 - 0.10 10(3)/mcL 10/02/2022 9:20 PM CDT [facility] NRBC PER 100 WBC 0 10/03/19 9:20 PM CDT [facility] Blood Venipuncture / Unknown 10/02/2022 8:25 PM CDT 10/02/2022 9:18 PM CDT Mathew Pringle APRN, CNP HEMATOLOGY ORDERABLES F inal Result Performing Organization Address City/[facility]/ZIP Co de Phone Number [facility] [address] [place] [address] * Creatine Kinase (CK) Total (10/02/2022 8:25 PM CDT) CK (CPK) 67 26 - 192 U/L 10/02/2022 10:34 PM CDT [facility] Blood Venipuncture / Unknown 10/02/2022 8:25 PM CDT 10/02/2022 9:18 PM CDT Mathew Pringle APRN, CNP HEMATOLOGY ORDERABLES F inal Result [facility] [address] [place] [address] * (ABNORMAL) Magnesium (Mg) [id number] (10/02/2022 8:25 PM CDT) MAGNESIUM 1.4(L) 1.8 - 2.5 mg/dL 10/02/2022 9:44 PM CDT [facility] Blood Venipuncture / Unknown 10/02/2022 8:25 PM CDT 10/02/2022 9:18 PM CDT us Mathew Pringle PRODUCTION MACHINE SHOP SUPERVISOR, DAVID CHEMISTRY ORDERABLES Fi nal Result [facility] [address] [place] [address] * (ABNORMAL) Comprehensive Metabolic Panel (Cmp) [id number] (10/02/2022 8:25 PM CDT) Pathologist [facility] SODIUM 135(L) 136 - 144 mmol/L 10/02/2022 9:44 PM CDT [facility] POTASSIUM 3.9 3.5 - 5.1 mmol/L 10/02/2022 9:44 PM CDT [facility] CHLORIDE 97(L) 100 - 110 mmol/L 10/02/2022 9:44 PM CDT [facility] CO2, VENOUS 30 22 - 32 mmol/L 10/02/2022 9:44 PM CDT [facility] ANION GAP 11.9 8.0 - 20.0 mmol/L 10/02/2022 9:44 PM CDT [facility] GLUCOSE 153(H) 70 - 99 mg/dL 10/02/2022 9:44 PM CDT [facility] BUN 14 6 - 20 mg/dL 10/02/2022 9:44 PM CDT [facility] CREATININE, BLOOD 0.55(L) 0.60 - 1.10 mg/dL 10/02/2022 9:44 PM CDT [facility] BUN/CREATININE RATIO 25(H) 12 - 20 ratio 10/02/2022 9:44 PM CDT [facility] TOTAL PROTEIN 6.4 6.0 - 8.3 g/dL 10/02/2022 9:44 PM CDT [facility] ALBUMIN 3.6 3.5 - 5.2 g/dL 10/02/2022 9:44 PM CDT [facility] Comment: The colormetric methods used for the determination of Albumin may lead to falsely elevated test results in patients suffering from renal failure or insufficiency due to interference with other proteins. A/G RATIO 1.3 1.0 - 2.0 10/02/2022 9:44 PM CDT [facility] CALCIUM 9.3 8.7 - 10.5 mg/dL 10/02/2022 9:44 PM CDT [facility] T BILI 0.2 0.2 - 1.2 mg/dL 10/02/2022 9:44 PM CDT [facility] SGOT (AST) 11 <=32 U/L 10/02/2022 9:44 PM CDT [facility] SGPT (ALT) 14 <=41 U/L 10/02/2022 9:44 PM CDT [facility] ALKALINE PHOSPHATASE 99 35 - 105 U/L 10/02/2022 9:44 PM CDT [facility] GFR, ESTIMATED >60 >=60 10/02/2022 9:44 PM CDT [facility] Comment: Creatinine Clearance is the preferred criteria for selecting drug dose adjustments in renally impaired patients. ??The GFR is provided as additional pertinent clinical information. GFR is reported in mL/min/1.73 sq m. Calculation based on the Chronic Kidney Disease Epidemiology Collaboration (CKD- EPI) equation refit without adjustment for race. GFR, EST. >60 >=60 023 9:44 PM CDT [facility] GFR, EST. NONAFRICAN >60 >=60 10/02/2022 9:44 PM CDT [facility] Blood Venipuncture / Unknown 10/02/2022 8:25 PM CDT 10/02/2022 9:18 PM CDT us Mathew Pringle APRN, CNP CHEMISTRY ORDERABLES Fi nal Result [facility] [address] [place] [address] documented in this encounter Visit Diagnoses Diagnosis Hypomagnesemia- Primary Disorders of magnesium metabolism Muscle cramp Cramp of limb documented in this encounter Administered Medications Inactive Administered Medications - up to 3 most recent administrations Medication Order MAR Action Action Date Dose Rate Site 0.9 % sodium chloride solution at 1,000 mL/hr, Intravenous, ONCE, 1 dose, On 10/02/22 at 2130 New Bag 10/02/2022 9:24 PM CDT 1000 mL/hr diazePAM (VALIUM) injection 5 mg 5 mg, Intravenous, ONCE, 1 dose, On 10/02/22 at 2130, For IV administration - give undiluted as an IV push to avoid precipitation. Maximum rate of IV administration is 5 mg/min. Given 10/02/2022 9:24 PM CDT 5 mg magnesium oxide (MAG-OX) tablet 400 mg 400 mg, Oral, ONCE, 1 dose, On 10/02/22 at 2230 Given 10/02/2022 10:29 PM CDT 400 mg documented in this encounter Active and Recently Administered Medications Times are shown in CDT. Scheduled Medication Order 09/30/2022 10/01/2022 10/02/2022 0.9 % sodium chloride solution (COMPLETED) at 1,000 mL/hr, Intravenous, ONCE, 1 dose, On 10/02/22 at 2130 2123 (New Bag - Prov ider: Mukesh Sue RN)2233 (Stopped - Provider: Mukesh Sue RN) diazePAM (VALIUM) injection 5 mg (COMPLETED) 5 mg, Intravenous, ONCE, 1 dose, On 10/02/22 at 2130, For IV administration - give undiluted as an IV push to avoid precipitation. Maximum rate of IV administration is 5 mg/min. 2123 (Given - Provid er: Mukesh Sue RN) magnesium oxide (MAG-OX) tablet 400 mg (COMPLETED) 400 mg, Oral, ONCE, 1 dose, On 10/02/22 at 2230 2228 (Given - Provid er: Mukesh Sue RN) documented in this encounter Care Teams Animal Rides Manager Relationship Specialty Start Date End Date Daja Kern MD [address] [place] [address] PCP - General Internal Medicine 03/13/15 documented as of this encounter
--- OUTSIDE RECORDS SUMMARY | 2024-03-03 19:27 | XMS_ITS | Encounter Summary ---
Author Organization [facility] Address [address] [place] [address] Phone Care Team Providers Care Licensed Bondsman Name Role Phone Daja Kern MD Primary Care Provider [phone] Reason for Visit * Reason Comments Laceration Encounter Details Date Type Department Care Team ([facility] Contact Info) Description 06/22/2022 1:15 PM CDT - 06/22/2022 2:49 PM CDT Emergency [facility] Emergency [address] [place] [address] Dhara Smith, CHIEF SERVICE DISPATCHER, PRODUCTION ASSEMBLY OPERATOR [address] [place] [address] Laceration of right middle finger without foreign body without damage to nail, initial encounter Discharge Disposition: Discharged to home or Selfcare [...] Sign Reading Time Taken Comments Blood Pressure 169/95 06/22/2022 2:30 PM CDT Pulse 90 06/22/2022 2:45 PM CDT Temperature 37.1 ??C (98.7 ??F) 06/22/2022 1:16 PM CD T Respiratory Rate 20 06/22/2022 1:22 PM CDT Oxygen Saturation 96% 06/22/2022 2:45 PM CDT Inhaled Oxygen Concentration - - Weight 120.2 kg (265 lb) 06/22/2022 1:16 PM CDT Height 157.5 cm (5' 2 ) 06/22/2022 1:16 PM CDT Body Mass Index 48.47 06/22/2022 1:16 PM CDT documented in this encounter Discharge Instructions * Discharge Instructions* Dhara Smith APRN, CNP - 06/22/2022 2:45 PM CDT Keep wound clean and dry. Monitor for signs of infection. Follow-up with primary care physician. * Attachments The following attachments cannot be sent through Care Everywhere. * Nonsutured Laceration Care (Malaysian) documented in this encounter Medications at Time [...] as of this encounter ED Notes * Yaima Walker RN - 06/22/2022 2:49 PM CDT Patient discharged. Discharge instructions and patient educational material reviewed with patient; questions and concerns addressed; patient verbalizes understanding, using teach back. Patient discharged per ambulatory mode with self as responsible democrat. * Yaima Walker RN - 06/22/2022 2:44 PM CDT ERP KA to bedside at this time for laceration repair. * Yaima Walker RN - 06/22/2022 2:09 PM CDT Pt medicated per provider orders. Pt educated on intended effects and side effects of medication and verbalized understanding, able to provide teach back of education. * Yaima Walker RN - 06/22/2022 1:58 PM CDT Patients wound was cleaned at this time * Dhara Smith APRN, PRODUCTION ASSEMBLY OPERATOR - 06/22/2022 1:45 PM CDTAssociated Order(s): Laceration Repair Chief Complaint Patient presents with ??? Laceration Alona Kemp is a 51 y.o. female who presents to the ED c/o laceration to her right middle finger.Patient states that she was washing dishes just prior to arrival, and there was a piece of glass inhis saying that she did not know about. There is a 0.5 cm laceration noted to the tip of the right middle finger. Bleeding is controlled at this time. Patient is tearful and states that she does not know why she is crying, but she is been crying for the past 2 days. States that she has a headache from crying so much. Cap refill is normal distal to the injury. Sensation is intact. Past Medical History Positives No date: Adenomatous colon polyp No date: Anxiety No date: Bipolar disorder ([facility]) No date: Cocaine abuse ([facility]) No date: DDD (degenerative disc disease), lumbar Comment: back No date: Depression No date: GERD (gastroesophageal reflux disease) No date: HLD (hyperlipidemia) No date: HTN (hypertension) No date: Hypothyroid No date: IBS (irritable bowel syndrome) Comment: C/D No date: Morbid obesity ([facility]) No date: NAFLD (nonalcoholic fatty liver disease) No date: Nephrocalcinosis No date: KWABENA (obstructive sleep apnea) Comment: does not use cpap 09/2018: SBO (small bowel obstruction) ([facility]) No date: Vitamin D deficiency No current facility-administered medications for this encounter. [...] Surgical History: Procedure Laterality Date ??? SECTION 1995 ??? CHOLECYSTECTOMY 2005 laparoscopic ??? COLONOSCOPY [facility] (Does not remember the ) ??? COLONOSCOPY N/A 11/16/2018 Procedure: COLONOSCOPY - POLYPS, BIOPSIES; Surgeon: Damian Gallardo DO; Location: [facility]; Service: Gastroenterology ??? EGD 2012? [facility] ??? UPPER GASTROINTESTINAL ENDOSCOPY N/A 02/06/2019 Procedure: EGD, SMALL BOWEL BIOSY, GASTRIC POLYP, SAMANTHA TEST; Surgeon: Damian Gallardo DO; Location: [facility]; Service: Gastroenterology ??? WISDOM [...] Narrative ??? Not on file BP (!) 162/126 Pulse 93 Temp 98.7 ??F (37.1 ??C) (Tympanic) Resp 20 Ht 5' 2 (1.575 m) Wt265 lb (120.2 kg) LMP 11/12/2019 SpO2 97% [...] for arthralgias and myalgias. Skin: Positive for wound (0.5 cm laceration to tip of right middle finger). Negative for rash. Neurological: Positive for headaches. Negative for dizziness, syncope, weakness, light-headedness and numbness. All other systems reviewed and are negative. [...] rate and regular rhythm. Pulses: Normal pulses. Heart sounds: Normal heart sounds. No murmur [...] Capillary refill takes less than 2 seconds. Findings: Laceration (0.5 cm superficial laceration to tip of right middle finger with no active bleeding) present. Neurological: Mental Status: She is alert and oriented to person, place, and time. GCS: GCS eye subscore is 4. GCS verbal subscore is 5. GCS motor subscore is 6. Cranial Nerves: Cranial nerves 2-12 are intact. No cranial nerve deficit. Sensory: Sensation is intact. Motor: Motor function is intact. Coordination: Coordination is intact. Gait: Gait is intact. Psychiatric: Mood and Affect: Affect is tearful. Thought Content: Thought content does not include homicidal or suicidal ideation. Thought content does not include homicidal or suicidal plan. Laceration Repair Performed by: Dhara Smith, CHIEF SERVICE DISPATCHER, PRODUCTION ASSEMBLY OPERATOR Authorized by: Dhara Smith, ADELFO, DAVID Consent: Verbal consent obtained. Risks and benefits: risks, benefits and alternatives were discussed Consent given by: patient Body area: upper extremity Location details: right long finger Laceration length: 0.5 cm Foreign bodies: no foreign bodies Tendon involvement: none Nerve involvement: none Vascular damage: no Sedation: Patient sedated: no Preparation: Patient was prepped and draped in the usual sterile fashion. Irrigation solution: saline Irrigation method: syringe Amount of cleaning: standard Debridement: none Degree of undermining: none Skin closure: glue Approximation: close Approximation difficulty: simple Patient tolerance: patient tolerated the procedure well with no immediate complications Imaging Results None Labs Reviewed SARS-COV-2 BY MOLECULAR - Normal Narrative: This test has been authorized by the FDA under an Emergency Use Authorization (EUA) only. Negative results should be treated as presumptive and, if inconsistent with clinical signs and symptoms or necessary for patient management, the patient should be tested with an alternative molecularassay. Negative results do not preclude SARS-CoV-2 infection or any other respiratory pathogen. Additional information for Clinicians can be found at: https://www.fda.gov/media/937694/download Additional information for Patients can be found at: https://www.fda.gov/media/665284/download Medical Decision Making Amount and/or Complexity of Data Reviewed Labs: ordered. Clinical Impression 1. Laceration of right middle finger without foreign body without damage to nail, initial encounter Disposition: Discharged Patient presents with 0.5 cm laceration to the tip of the right middle finger. Wound was cleaned and repaired with skin glue. Patient was advised to monitor for signs of infection and return to the ED with any of those signs. Tetanus was updated. Recommended follow-up with primary care physician. The patient remained stable throughout their ED stay. My clinical impression was discussed with thepatient/family. Labs and radiology results were reviewed with them. I gave them the opportunity to ask questions, and addressed them as completely as possible given the information available at present. The therapeutic plan was discussed, advised to take medications as instructed, instructions weregiven and the importance of primary care follow up was stressed and encouraged. The patient/family voiced understanding of the plan, indications to return, and the need for follow up. Cosigned by Robert Manuel MD at 06/23/2022 4:06 PM CDT * Yaima Walker, RN - 06/22/2022 1:20 PM CDT Present to ED via [facility]. Patient was washing dishes prior arrival and cut her right middle finger. States there was a piece of glass in the sink that she didn't know about. Patient is very tearful at this time states she has been crying for the last two days and doesn't know why. * Wendy Mobley - 06/22/2022 1:16 PM CDT Bed: ED09-01 Expected date: 06/22/22 Expected time: 1:06 PM Means of arrival: Ambulance ([facility]) Comments: 4A76 [facility] 51F LACERATION TO RIGHT FINGER AND ANXIETY documented in this encounter Plan of Treatment Upcoming Encounters Date Type Department Care Team (Late st Contact Info) Description 03/27/2024 8:30 AM ORDNANCE KEEPER Hospital En[facility] Periop [address] [place] [address] Burt Eastman MD [address] [address] 03/27/2024 8:30 AM ORDNANCE KEEPER - 03/27/2024 9:00 AM ORDNANCE KEEPER Surgery [facility] Periop [address] [place] [address] Burt Eastman MD [address] [address] COLONOSCOPY 04/09/2024 1:15 PM ORDNANCE KEEPER Office Visit [facility] Medical [facility] - Pulmonology & Sleep Medicine [facility] [address] [place] [address] Baron Vergara MD [address] [place] [address] Scheduled Procedures Name Priority Associated Diagnoses Date/Ti me COLONOSCOPY HISTORY OF COLON POLYPS 03/27/2024 8:30 AM ORDNANCE KEEPER documented as of this encounter Procedures Procedure Name Priority Date/Time Associated Diagnosis Comments LACERATION REPAIR Routine 06/22/2022 1:4 5 PM CDT SARS-COV-2 BY MOLECULAR STAT 06/22/2022 1:42 PM CDT documented in this encounter Results * Laceration Repair (06/22/2022 1:45 PM CDT) Narrative Robert Manuel MD - 06/22/2022 1:45 PM CDT Dhara Smith APRN, CNP ? 06/22/2022 ??2:46 PM Laceration Repair Performed by: Dhara Smith APRN, CNP Authorized by: Dhara Smith APRN, CNP Consent: Verbal consent obtained. Risks and benefits: risks, benefits and alternatives were discussed Consent given by: patient Body area: upper extremity Location details: right long finger Laceration length: 0.5 cm Foreign bodies: no foreign bodies Tendon involvement: none Nerve involvement: none Vascular damage: no Sedation: Patient sedated: no Preparation: Patient was prepped and draped in the usual sterile fashion. Irrigation solution: saline Irrigation method: syringe Amount of cleaning: standard Debridement: none Degree of undermining: none Skin closure: glue Approximation: close Approximation difficulty: simple Patient tolerance: patient tolerated the procedure well with no immediate complications Dhara Smith APRN, CNP PROCEDURE/MINOR SURGI ROSALIO ORDERABLES Final Result * SARS-COV-2 BY MOLECULAR (06/22/2022 1:42 PM CDT) SARSCOV2 NOT DETECTED (Referenc e Range for this test is Not Detected) [facility] ID NOW B 06/22/2022 2:32 PM CDT [facility] Comment:This test was perfor med by a MOLECULAR, NON-PCR method Other NASAL STRUCTURE / Unknown Non-Phlebotomy Collection / Unknown 06/22/2022 1:42 PM CDT 06/22/2022 2:00 PM CDT Narrative [facility] - 06/22/2022 2:32 PM CDT This test has been authorized [...] information for Clinicians can be found at: https://www.fda.gov/media/405438/download Additional information for Patients can be found at: https://www.fda.gov/media/313428/download us Dhara Smtih APRN, PRODUCTION ASSEMBLY OPERATOR MICROBIOLOGY - GENERA L ORDERABLES Final Result [facility] [address] [place] [address] documented in this encounter Visit Diagnoses Diagnosis Laceration of right middle finger without foreign body without damage to nail, initial encounter- Primary documented in this encounter Administered Medications Inactive Administered Medications - up to 3 most recent administrations Medication Order MAR Action Action Date Dose Rate Site ketorolac (TORADOL) injection 60 mg 60 mg, Intramuscular, ONCE, 1 dose, On Mon06/22/22 at 1400 Given 06/22/2022 2:03 PM CDT 60 mg Left Deltoid documented in this encounter Active and Recently Administered Medications Times are shown in CDT. Scheduled Medication Order 06/20/2022 06/21/2022 06/22/2022 ketorolac (TORADOL) injection 60 mg (COMPLETED) 60 mg, Intramuscular, ONCE, 1 dose, On Mon06/22/22 at 1400 1403 (Given - Provid er: Yaima Walker RN) documented in this encounter Additional Health Concerns Infection Onset Date Last Indicated Resolved Time COVID - 19 06/22/2022 06/22/2022 07/02/2022 12:1 6 AM CDT documented as of this encounter Care Teams Licensed Bondsman Relationship Specialty Start Date End Date Daja Kern MD [address] [place] [address] PCP - General Internal Medicine 03/13/15 documented as of this encounter
--- OUTSIDE RECORDS SUMMARY | 2024-03-03 19:27 | XMS_ITS | Encounter Summary ---
Author Organization [facility] [employer] [facility] Care Team Providers Care Communications Tech Name Role Phone Daja Kern MD Primary Care Provider [phone] Encounter Details Date Type Department Care Team (Latest Contact Info) Description 09/10/2022 Travel Social History Tobacco Use Types Packs/Day [...] st Contact Info) Description 03/27/2024 8:30 AM MACHINE REPAIR PERSON [facility] 1 [place] [phone] Burt Eastman MD [address] [facility] [address] [address] 03/27/2024 8:30 AM MACHINE REPAIR PERSON - 03/27/2024 9:00 AM MACHINE REPAIR PERSON Surgery [facility] Periop 1 [place] [address] Burt Eastman MD 2 [facility] [address] [address] COLONOSCOPY 04/09/2024 1:15 PM MACHINE REPAIR PERSON [facility] [address] [place] [address] Baron Vergara MD [address] [place] [address] Scheduled Procedures Name Priority Associated Diagnoses Date/Ti me COLONOSCOPY HISTORY OF COLON POLYPS 03/27/2024 8:30 AM MACHINE REPAIR PERSON documented as of this encounter Visit Diagnoses Not on filedocumented in this encounter Additional Health Concerns Infection Onset Date Last Indicated Resolved Time COVID - 19 09/10/2022 09/10/2022 09/20/2022 12:1 8 AM CDT Respiratory Rule-Out 09/10/2022 09/10/2022 08/ 023 12:18 AM CDT Influenza 09/10/2022 09/10/2022 09/17/2022 12:1 7 AM CDT documented as of this encounter Care Teams Communications Tech Relationship Specialty Start Date End Date Daja Kern MD [address] [place] [address] PCP - General Internal Medicine 03/13/15 documented as of this encounter
--- OUTSIDE RECORDS SUMMARY | 2024-03-03 19:27 | XMS_ITS | Encounter Summary ---
Author Organization [facility] Address [address] [place] [address] Phone Care Team Providers Care Ski Patrol Director Name Role Phone Daja Kern MD Primary Care Provider [phone] Reason for Visit * Reason Onset Date Comments ED Follow-up 09/12/2022 Test results Encounter Details Date Type Department Care Team (Late st Contact Info) Description 09/12/2022 Telephone [facility] Emergency 1 [place] [phone] Erin Wesley RN [place] ED Follow-up (Test results) Social History Tobacco Use Types Packs/Day Years [...] encounter Miscellaneous Notes * Telephone Encounter - Erin Wesley RN - 09/12/2022 4:09 PM CDT Contacted patient regarding urine culture results and new prescription for Macrobid 100 mg PO BID x7 days. Patient verbalized understanding. All questions answered. Prescription called in to [facility] in [place] as requested by patient. documented in this encounter Plan of Treatment Upcoming Encounters Date Type Department Care Team (Late st Contact Info) Description 03/27/2024 8:30 AM STORE STOCKER Hospital En[facility] Lab Periop [address] [place] [address] Burt Eastman MD [address] [address] 03/27/2024 8:30 AM STORE STOCKER - 03/27/2024 9:00 AM STORE STOCKER Surgery [facility] Lab Periop [address] [place] [address] Burt Eastman MD [address] [address] COLONOSCOPY 04/09/2024 1:15 PM STORE STOCKER Office Visit [facility] - Pulmonology & Sleep Medicine [facility] [address] [place] [address] Baron Vergara MD [address] [place] [address] Scheduled Procedures Name Priority Associated Diagnoses Date/Ti me COLONOSCOPY HISTORY OF COLON POLYPS 03/27/2024 8:30 AM STORE STOCKER documented as of this encounter Visit Diagnoses Not on filedocumented in this encounter Additional Health Concerns Infection Onset Date Last Indicated Resolved Time COVID - 19 09/10/2022 09/10/2022 09/20/2022 12:1 8 AM CDT Respiratory Rule-Out 09/10/2022 09/10/2022 023 12:18 AM CDT Influenza 09/10/2022 09/10/2022 09/17/2022 12:1 7 AM CDT documented as of this encounter Care Teams Ski Patrol Director Relationship Specialty Start Date End Date Daja Kern MD [address] [facility] [address] [place] [address] PCP - General Internal Medicine 03/13/15 documented as of this encounter
--- OUTSIDE RECORDS SUMMARY | 2024-03-03 19:28 | XMS_ITS | Encounter Summary ---
Author Organization [facility] [employer] [facility] Care Team Providers Care Foreign Languages Department Chair Name Role Phone Daja Kern MD Primary Care Provider [phone] Encounter Details Date Type Department Care Team (Latest Contact Info) Description 09/06/2021 Travel Social History Tobacco Use Types Packs/Day Years Used Date Smoking Tobacco: Never Smokeless Tobacco: Never Alcohol Use Standard Drinks/Week Comments No 0 (1 standard drink = 0.6 oz pur e alcohol) Sexually Active Control Partners Comments Not Currently Male Comments No Sex and Gender Information [...] suspected to have Coronavirus/COVID-19? No / Unsure 09/06/2021 10:31 PM CDT documented as of this encounter Plan of Treatment Upcoming Encounters Date Type Department Care Team (Late st Contact Info) Description 03/27/2024 8:30 AM CONE CLASSIFIER TENDER [facility] 1 [facility] [place] [phone] Burt Eastman MD 2 [facility] [address] [address] 03/27/2024 8:30 AM CONE CLASSIFIER TENDER - 03/27/2024 9:00 AM CONE CLASSIFIER TENDER [facility] Periop 1 [place] [address] Burt Eastman MD [address] [address] COLONOSCOPY 04/09/2024 1:15 PM CONE CLASSIFIER TENDER [facility] #[address] [place] [address] Baron Vergara MD [address] [place] [address] Scheduled Procedures Name Priority Associated Diagnoses Date/Ti me COLONOSCOPY HISTORY OF COLON POLYPS 03/27/2024 8:30 AM CONE CLASSIFIER TENDER documented as of this encounter Visit Diagnoses Not on filedocumented in this encounter Care Teams Foreign Languages Department Chair Relationship Specialty Start Date End Date Daja Kern MD [address] [place] [address] PCP - General Internal Medicine 03/13/15 documented as of this encounter
--- OUTSIDE RECORDS SUMMARY | 2024-03-03 19:28 | XMS_ITS | Encounter Summary ---
Author Organization [facility] [employer] [facility] Care Team Providers Care Branch General Manager Name Role Phone Daja Kern MD Primary Care Provider [phone] Encounter Details Date Type Department Care Team (Latest Contact Info) Description 08/02/2021 Travel Social History Tobacco Use Types Packs/Day [...] suspected to have Coronavirus/COVID-19? No / Unsure 08/02/2021 2:39 PM CDT documented as of this encounter Plan of Treatment Upcoming Encounters Date Type Department Care Team (Late st Contact Info) Description 03/27/2024 8:30 AM CLIENT PARTNER [facility] 1 [facility] [place] [phone] Burt Eastman MD 2 [facility] [address] [address] 03/27/2024 8:30 AM CLIENT PARTNER - 03/27/2024 9:00 AM CLIENT PARTNER [facility] 1 [place] [address] Burt Eastman MD [address] [address] COLONOSCOPY 04/09/2024 1:15 PM CLIENT PARTNER [facility] & [facility] Medicine [facility] [address] [place] [address] Baron Vergara MD [address] [place] [address] Scheduled Procedures Name Priority Associated Diagnoses Date/Ti me COLONOSCOPY HISTORY OF COLON POLYPS 03/27/2024 8:30 AM CLIENT PARTNER documented as of this encounter Visit Diagnoses Not on filedocumented in this encounter Care Teams Branch General Manager Relationship Specialty Start Date End Date Daja Kern MD [address] [place] [address] PCP - General Internal Medicine 03/13/15 documented as of this encounter
--- OUTSIDE RECORDS SUMMARY | 2024-03-03 19:28 | XMS_ITS | Encounter Summary ---
Author Organization [facility] Address [address] [place] [address] Phone Care Team Providers Care Clerical Order Filler Name Role Phone Daja Kern MD Primary Care Provider [phone] Reason for Referral * Radiology Services (Routine) - Closed Specialty Diagnoses / Procedures Referred By Contac t Referred To Contact Radiology Diagnoses Sacroiliitis, not elsewhere classified (HCC) Procedures XR SACROILIAC JOINTS, COMPLETE Laxmi Houston APRN, CNP [address] [place] [address] Phone: tel: fax: Referral ID Status Reason Start Date Expiration Date Visits Re quested Visits Authorized [id number] Closed 09/03/2021 1 1 * Radiology Services (Routine) - Closed Specialty Diagnoses / Procedures Referred By Contac t Referred To Contact Radiology Diagnoses Spondylosis without myelopathy or radiculopathy, lumbar region Procedures XR LUMBAR SPINE 2 OR 3 VIEWS Laxmi Houston APRN, CNP [address] [place] [address] Phone: tel: fax: Referral ID Status Reason Start Date Expiration Date Visits Re quested Visits Authorized [id number] Closed 09/03/2021 1 1 Encounter Details Date Type Department Care Team (Latest Contact Info) Description 09/03/2021 [facility] 1 [place] [address] Laxmi Houston, RECORDER OF DEEDS, WEIGH BOX TENDER [address] [place] [address] Spondylosis without myelopathy or radiculopathy, lumbar region (Primary Dx); Sacroiliitis, not elsewhere classified (HCC) Social History Tobacco Use Types Packs/Day Years [...] st Contact Info) Description 03/27/2024 8:30 AM AUTOMATED PROCESS OPERATOR [facility] [address] [place] [address] Burt Eastman MD [address] [address] 03/27/2024 8:30 AM AUTOMATED PROCESS OPERATOR - 03/27/2024 9:00 AM AUTOMATED PROCESS OPERATOR [facility] 1 [place] [address] Burt Eastman MD [address] [address] COLONOSCOPY 04/09/2024 1:15 PM AUTOMATED PROCESS OPERATOR [facility] [address] [place] [address] Baron Vergara MD [address] [place] [address] Scheduled Procedures Name Priority Associated Diagnoses Date/Ti me COLONOSCOPY HISTORY OF COLON POLYPS 03/27/2024 8:30 AM AUTOMATED PROCESS OPERATOR documented as of this encounter Results * XR LUMBAR SPINE 2 OR 3 VIEWS (09/03/2021 12:42 PM CDT) Anatomical Region Laterality Modality Spine, L-spine N/A Digital Radiogra phy 09/06/2021 7:25 AM CDT Impressions 09/06/2021 7:28 AM CDT IMPRESSION: ?? 1. ?? Grade 1 anterolisthesis of L5-S1 with severe degenerative disc disease at that level. Narrative 09/06/2021 7:28 AM CDT EXAM DESCRIPTION: ?? XR LUMBAR SPINE 2 OR 3 VIEWS REASON FOR STUDY: ?? Spondylosis without myelopathy or radiculopathy, lumbar region TECHNIQUE: ?? 3 ??radiographic views acquired of the lumbar spine. COMPARISON: ?? CT dated 08/03/2021 FINDINGS: Grade 1 anterolisthesis L5-S1. ??Straightening of the lumbar lordosis. ??No acute fracture seen. ??Degenerative sclerosis of L5-S1, better evaluated on recent CT. ??Severe L5-S1 degenerative disc disease. ??Minimal degenerative disc disease elsewhere. THIS IS AN ELECTRONICALLY VERIFIED FINAL REPORT 09/06/2021 7:25 AM - Electronically signed by ??Lisandro Zafar M.D. AG: ALONSO D: ??09/06/2021 7:25 AM T: ??09/06/2021 7:25 AM Report ID: [id number] Reading Location: ??[id number] Procedure Note Lisandro Zafar MD - 09/06/2021 EXAM DESCRIPTION: XR LUMBAR SPINE 2 OR 3 VIEWS REASON FOR STUDY: Spondylosis without myelopathy or radiculopathy, lumbar region TECHNIQUE: 3 radiographic views acquired of the lumbar spine. COMPARISON: CT dated 08/03/2021 FINDINGS: Grade 1 anterolisthesis L5-S1. Straightening of the lumbar lordosis. No acute fracture seen. Degenerative sclerosis of L5-S1, better evaluated on recent CT. Severe L5-S1 degenerative disc disease. Minimal degenerative disc disease elsewhere. THIS IS AN ELECTRONICALLY VERIFIED FINAL REPORT 09/06/2021 7:25 AM - Electronically signed by Lisandro Zafar M.D. AG: ALONSO Report ID: [id number] Reading Location: [id number] IMPRESSION: 1. Grade 1 anterolisthesis of L5-S1 with severe degenerative disc disease at that level. Laxmi Houston RECORDER OF DEEDS, WEIGH BOX TENDER IMG DIAGNOSTIC ORDERA BLES Final Result * XR SACROILIAC JOINTS, COMPLETE (09/03/2021 12:40 PM CDT) Anatomical Region Laterality Modality Spine, Sacroiliac joint N/A Digital Radiography 09/06/2021 7:26 AM CDT Impressions 09/06/2021 7:29 AM CDT IMPRESSION: 1. ?? Mild sacroiliac joint osteoarthritis. Narrative 09/06/2021 7:29 AM CDT EXAM DESCRIPTION: ?? XR SACROILIAC JOINTS, COMPLETE REASON FOR STUDY: ?? Sacroiliitis, not elsewhere classified TECHNIQUE: ??AP and oblique ??views of the sacroiliac joints. COMPARISON: ?? None FINDINGS: Normal bony alignment. ??No acute fracture seen. ??Mild bilateral sacroiliac joint osteoarthritis. THIS IS AN ELECTRONICALLY VERIFIED FINAL REPORT 09/06/2021 7:26 AM - Electronically signed by ??Lisandro Zafar M.D. AG: ALONSO D: ??09/06/2021 7:26 AM T: ??09/06/2021 7:26 AM Report ID: [id number] Reading Location: ??[id number] Procedure Note Lisandro Zafar MD - 09/06/2021 EXAM DESCRIPTION: XR SACROILIAC JOINTS, COMPLETE REASON FOR STUDY: Sacroiliitis, not elsewhere classified TECHNIQUE: AP and oblique views of the sacroiliac joints. COMPARISON: None FINDINGS: Normal bony alignment. No acute fracture seen. Mild bilateral sacroiliac joint osteoarthritis. THIS IS AN ELECTRONICALLY VERIFIED FINAL REPORT 09/06/2021 7:26 AM - Electronically signed by Lisandro Zafar M.D. AG: ALONSO Report ID: [id number] Reading Location: [id number] IMPRESSION: 1. Mild sacroiliac joint osteoarthritis. Laxmi Houston APRN, DAVID IMG DIAGNOSTIC ORDERA BLES Final Result documented in this encounter Visit Diagnoses Diagnosis Spondylosis without myelopathy or radiculopathy, lumbar region- Primary Sacroiliitis, not elsewhere classified (HCC) Sacroiliitis, not elsewhere classified Sacroiliitis, not elsewhere classified (HCC) Sacroiliitis, not elsewhere classified Spondylosis without myelopathy or radiculopathy, lumbar region documented in this encounter Care Teams Clerical Order Filler Relationship Specialty Start Date End Date Daja Kern MD [address] [place] [address] PCP - General Internal Medicine 03/13/15 documented as of this encounter
--- OUTSIDE RECORDS SUMMARY | 2024-03-03 19:28 | XMS_ITS | Encounter Summary ---
Author Organization [facility] Care Team Providers Care Production Control Scheduler Name Role Phone Daja Kern MD Primary Care Provider [phone] Encounter Details Date Type Department Care Team (Latest Contact Info) Description 02/15/2022 Travel Social History Tobacco Use Types Packs/Day [...] was confirmed or suspected to have Coronavirus/COVID-19? Yes 02/15/2022 3:14 PM HARDWOOD FALLER documented as of this encounter Plan of Treatment Upcoming Encounters Date Type Department Care Team (Late st Contact Info) Description 03/27/2024 8:30 AM HARDWOOD FALLER [facility] 1 [place] [address] Burt Eastman MD 2 [facility] [address] [address] 03/27/2024 8:30 AM HARDWOOD FALLER - 03/27/2024 9:00 AM HARDWOOD FALLER Surgery [facility] Lab Periop 1 [place] [address] Burt Eastman MD 2 [facility] [address] [address] COLONOSCOPY 04/09/2024 1:15 PM HARDWOOD FALLER [facility] #2 [place] [address] Baron Vergara MD [address] [place] [address] Scheduled Procedures Name Priority Associated Diagnoses Date/Ti me COLONOSCOPY HISTORY OF COLON POLYPS 03/27/2024 8:30 AM HARDWOOD FALLER documented as of this encounter Visit Diagnoses Not on filedocumented in this encounter Additional Health Concerns Infection Onset Date Last Indicated Resolved Time Respiratory Rule-Out 02/08/2022 02/08/2022 023 12:16 AM HARDWOOD FALLER Influenza 02/08/2022 02/08/2022 02/15/2022 12:1 9 AM HARDWOOD FALLER COVID - 19 Confirmed 02/08/2022 02/08/2022 023 12:16 AM HARDWOOD FALLER documented as of this encounter Care Teams Production Control Scheduler Relationship Specialty Start Date End Date Daja Kern MD [address] [place] [address] PCP - General Internal Medicine 03/13/15 documented as of this encounter
--- OUTSIDE RECORDS SUMMARY | 2024-03-03 19:28 | XMS_ITS | Encounter Summary ---
Author Organization [facility] Address [address] [place] [address] Phone Care Team Providers Care Production Support Specialist Name Role Phone Daja Kern MD Primary Care Provider [phone] Reason for Visit * Reason Onset Date Comments Medication Refill 06/01/2021 Encounter Details Date Type Department Care Team (Late st Contact Info) Description 06/01/2021 Refill [facility]ology [facility] #2 [place] [address] Breanna Joya, [facility] [address] [place] [address] Medication Refill Social History Tobacco Use Types Packs/Day Years [...] encounter Miscellaneous Notes * Telephone Encounter - Hanna Chao - 06/02/2021 11:21 AM CDT Sent my chart message * Telephone Encounter - Breanna Joya PAC - 06/02/2021 8:10 AM CDT I approved 90 day refill. As she has never been seen in office, she needs to get all further refills from her primary care provider. * Telephone Encounter - Krystal Parsons RN - 06/01/2021 4:06 PM CDT Pharmacy requesting refill of: Requested Prescriptions Pending Prescriptions Disp Refills ??? omeprazole (PriLOSEC) 40 MG CAPSULE DELAYED RELEASE 90 Capsule Sig: Take 1 Capsule by mouth daily. Last fill: 05/07/[address] Gallardo Patients last OV with GI: patient not ever seen in office Next Office Visit with GI: None scheduled. Omeprazole order pended, please review. Per EGD pathology report on 02/06/2019: Damian Gallardo, DO 02/07/2019 ??1:41 PM CHILD WELFARE MANAGER Biopsies show no cancer. ??Review routine office visit in 3-4 months. * Telephone Encounter - Eileen Shaver CMA - 06/01/2021 3:25 PM CDT Received fax from [facility] requesting refill documented in this encounter Plan of Treatment Upcoming Encounters Date Type Department Care Team (Late st Contact Info) Description 03/27/2024 8:30 AM CHILD WELFARE MANAGER Hospital [facility] Gi Lab Periop 1 [place] [address] Burt Eastman MD [address] [address] 03/27/2024 8:30 AM CHILD WELFARE MANAGER - 03/27/2024 9:00 AM CHILD WELFARE MANAGER [facility] 1 [place] [address] Burt Eastman MD [address] [address] COLONOSCOPY 04/09/2024 1:15 PM CHILD WELFARE MANAGER Office [facility] - Pulmonology & Sleep Medicine [facility] [address] [place] [address] Baron Vergara MD [address] [place] [address] Scheduled Procedures Name Priority Associated Diagnoses Date/Ti me COLONOSCOPY HISTORY OF COLON POLYPS 03/27/2024 8:30 AM CHILD WELFARE MANAGER documented as of this encounter Visit Diagnoses Not on filedocumented in this encounter Care Teams Production Support Specialist Relationship Specialty Start Date End Date Daja Kern MD [address] [place], [place] [phone] PCP - General Internal Medicine 03/13/15 documented as of this encounter
--- OUTSIDE RECORDS SUMMARY | 2024-03-03 19:28 | XMS_ITS | Encounter Summary ---
Author Organization [facility] Address [address] [place] [address] Phone Care Team Providers Care Prefitter Doors Name Role Phone Daja Kern MD Primary Care Provider [phone] Baron Vergara MD Unavailable Reason for Visit * Reason Comments Medication Refill Encounter Details Date Type Department Care Team (Late st Contact Info) Description 08/02/2021 Refill [facility] - Gastroenterology [facility] #2 [place] [address] Breanna Joya, [facility] #2 [place] [address] Medication Refill Social History Tobacco Use Types [...] st Contact Info) Description 03/27/2024 8:30 AM HYPERBARIC TECH [facility] 1 [facility] [place] [address] Burt Eastman MD [address] [address] 03/27/2024 8:30 AM HYPERBARIC TECH - 03/27/2024 9:00 AM HYPERBARIC TECH [facility] 1 [place] [address] Burt Eastman MD [address] [address] COLONOSCOPY 04/09/2024 1:15 PM HYPERBARIC TECH Office [facility] - Pulmonology & Sleep Medicine [facility] [address]2 [place] [address] Baron Vergara MD #[address] [place] [address] Scheduled Procedures Name Priority Associated Diagnoses Date/Ti me COLONOSCOPY HISTORY OF COLON POLYPS 03/27/2024 8:30 AM HYPERBARIC TECH documented as of this encounter Visit Diagnoses Not on filedocumented in this encounter Additional Health Concerns Infection Onset Date Last Indicated Resolved Time COVID - 19 02/08/2022 02/08/2022 02/08/2022 10:2 9 AM HYPERBARIC TECH Respiratory Rule-Out 02/08/2022 02/08/2022 023 12:16 AM HYPERBARIC TECH Influenza 02/08/2022 02/08/2022 02/15/2022 12:1 9 AM HYPERBARIC TECH COVID - 19 Confirmed 02/08/2022 02/08/2022 023 12:16 AM HYPERBARIC TECH COVID - 19 06/22/2022 06/22/2022 07/02/2022 12:1 6 AM CDT COVID - 19 09/10/2022 09/10/2022 09/20/2022 12:1 8 AM CDT Respiratory Rule-Out 09/10/2022 09/10/2022 023 12:18 AM CDT Influenza 09/10/2022 09/10/2022 09/17/2022 12:1 7 AM CDT COVID - 19 04/30/2023 04/30/2023 04/30/2023 4:09 PM HYPERBARIC TECH COVID - 19 05/21/2023 05/21/2023 05/21/2023 10:3 5 PM CDT COVID - 19 05/30/2023 05/30/2023 05/30/2023 2:08 PM CDT COVID - 19 07/17/2023 07/17/2023 07/17/2023 4:28 PM CDT COVID - 19 08/13/2023 08/13/2023 08/13/2023 3:59 PM CDT COVID - 19 01/29/2024 01/29/2024 01/29/2024 10:1 1 AM HYPERBARIC TECH documented as of this encounter Care Teams Prefitter Doors Relationship Specialty Start Date End Date Daja Kern MD [address] [address] PCP - General Internal Medicine 03/13/15 Baron Vergara MD #[address] [place] [address] Consulting Physician Pulmonary Disease 06/26/23 documented as of this encounter
--- OUTSIDE RECORDS SUMMARY | 2024-03-03 19:28 | XMS_ITS | Encounter Summary ---
Author Organization [facility] Address [address] [place] [address] Phone Care Team Providers Care Jigger Crown Pouncing Machine Operator Name Role Phone Daja Kern MD Primary Care Provider [phone] Reason for Visit * Reason Onset Date Comments Transition of Care 02/11/2022 Post Discharg e Encounter Details Date Type Department Care Team ([facility] st Contact Info) Description 02/11/2022 Post Discharge [facility]-up [facility] Tool Straightener Management [address] [place] [address] Liz Francois RN NE Social History Tobacco Use Types Packs/Day Years [...] suspected to have Coronavirus/COVID-19? No / Unsure 02/08/2022 9:35 AM WEB APPLICATIONS ADMINISTRATOR documented as of this encounter Miscellaneous Notes * Telephone Encounter - Liz Francois RN - 02/11/2022 8:32 AM WEB APPLICATIONS ADMINISTRATOR Care Management Post Discharge Follow-Up Call Discharge diagnosis: acute respiratory failure with hypoxia. Discharge facility: [facility] 02/08-02/10 Client's Current Condition: RN spoke to Alona for Post Discharge call. Alona has a cough and could barely talk between the coughing. She states that she has thick green sputum. She is sob at rest and more so with activity. She states that she is using her inhaler. Patient has a headache r/t the coughing. She denies edema. Alona states that she will make her own f/u apt with her PCP. Med list sent via [facility]. Does the patient live alone? Yes Caregiver: self DME: none Diet: DM Medications: Did the patient continuous pickling line pickler their medications from the pharmacy? Yes Is the patient compliant with the medication directions? Yes Follow Up Appointments: All Patient Appointments Provider Department Dept Phone 02/11/2022 Sr Jeana Schaefer Elizabeth [facility] [phone] 02/14/2022 Krystal Mock [facility] [phone] 02/15/2022 Jessie Obando [facility] [phone] Appointment scheduled within 7 days of Discharge (5 days for Heart Failure)? no- pt will make own hospital f/u Transportation: Patient has transportation to follow up visit? Yes 60 Day utilization: ED: 2 Hospital Admissions: 1 Please call [employer] Liz SHEEHAN at [phone] with any questions. APPLICATIONS ADMINISTRATOR documented in this encounter Plan of Treatment Upcoming Encounters Date Type Department Care Team (Late st Contact Info) Description 03/27/2024 8:30 AM WEB APPLICATIONS ADMINISTRATOR Hospital Encounter [facility] Gi Lab Periop 1 [facility] [place] [address] Burt Eastman MD 2 [facility] [address] [address] 03/27/2024 8:30 AM WEB APPLICATIONS ADMINISTRATOR - 03/27/2024 9:00 AM WEB APPLICATIONS ADMINISTRATOR Surgery [facility] Gi Lab Periop 1 [place] [address] Burt Eastman MD [address] [address] COLONOSCOPY 04/09/2024 1:15 PM WEB APPLICATIONS ADMINISTRATOR [facility] #2 [place] [address] Baron Vergara MD [address] [place] [address] Scheduled Procedures Name Priority Associated Diagnoses Date/Ti me COLONOSCOPY HISTORY OF COLON POLYPS 03/27/2024 8:30 AM WEB APPLICATIONS ADMINISTRATOR documented as of this encounter Visit Diagnoses Not on filedocumented in this encounter Additional Health Concerns Infection Onset Date Last Indicated Resolved Time Respiratory Rule-Out 02/08/2022 02/08/2022 023 12:16 AM WEB APPLICATIONS ADMINISTRATOR Influenza 02/08/2022 02/08/2022 02/15/2022 12:1 9 AM WEB APPLICATIONS ADMINISTRATOR COVID - 19 Confirmed 02/08/2022 02/08/2022 023 12:16 AM WEB APPLICATIONS ADMINISTRATOR documented as of this encounter Care Teams Jigger Crown Pouncing Machine Operator Relationship Specialty Start Date End Date Daja Kern MD [address] [place] [address] PCP - General Internal Medicine 03/13/15 documented as of this encounter
--- OUTSIDE RECORDS SUMMARY | 2024-03-03 19:28 | XMS_ITS | Encounter Summary ---
Author Organization [facility] Address [address] [place] [address] Phone Care Team Providers Care Electronic Service Technician Name Role Phone Daja Kern MD Primary Care Provider [phone] Reason for Visit * Auth/Cert (Routine) Specialty Diagnoses / Procedures Referred By Contac t Referred To Contact Referral ID Status Reason Start Date Expiration Date Visits Re quested Visits Authorized [id number] 1 1 Encounter Details Date Type Department Care Team (Latest Contact Info) Description 02/15/2022 1:30 PM MANAGER FINANCE [facility] [address] [place] [address] Jessie Ramírez, PT [place] PT - INITIAL EVALUATION Social History Tobacco Use [...] to have Coronavirus/COVID-19? Yes 02/15/2022 3:14 PM MANAGER FINANCE documented as of this encounter Last Filed Vital Signs Vital Sign Reading Time Taken Comments Blood Pressure 154/110 02/15/2022 2:21 PM MANAGER FINANCE Pulse 90 02/15/2022 2:05 PM MANAGER FINANCE Temperature 36.1 ??C (96.9 ??F) 02/15/2022 2:05 PM CS T Respiratory Rate 18 02/15/2022 2:21 PM MANAGER FINANCE Oxygen Saturation 100% 02/15/2022 2:05 PM MANAGER FINANCE Inhaled Oxygen Concentration - - Weight - - Height - - Body Mass Index - - documented in this encounter Plan of Treatment Upcoming Encounters Date Type Department Care Team (Late st Contact Info) Description 03/27/2024 8:30 AM MANAGER FINANCE [facility] 1 [place] [address] Burt Eastman MD [address] [address] 03/27/2024 8:30 AM MANAGER FINANCE - 03/27/2024 9:00 AM MANAGER FINANCE [facility] 1 [place] [address] Burt Eastman MD [address] [address] COLONOSCOPY 04/09/2024 1:15 PM MANAGER FINANCE Office Visit [facility] - Pulmonology & Sleep Medicine [facility] #2 [place] [address] Baron Vergara MD #2 [place] [address] Scheduled Procedures Name Priority Associated Diagnoses Date/Ti me COLONOSCOPY HISTORY OF COLON POLYPS 03/27/2024 8:30 AM MANAGER FINANCE documented as of this encounter Visit Diagnoses Not on filedocumented in this encounter Additional Health Concerns Infection Onset Date Last Indicated Resolved Time Respiratory Rule-Out 02/08/2022 02/08/2022 023 12:16 AM MANAGER FINANCE COVID - 19 Confirmed 02/08/2022 02/08/2022 023 12:16 AM MANAGER FINANCE documented as of this encounter Home Health Visit - Care Plan Visit Details Visit Type -PT - INITIAL [facility] Discipline -Physical Therapy Problems Problem Description Start Date Status Goals Interve ntions [facility] COVID-19 Disciplines: SN, PT, OT, DOMESTIC VIOLENCE ADVOCATE, LIFT BUILDER WHOLE, RT 02/11/2022 Active 1 goal linked to scheduled/documen arnulfo intervention 1 goal intervention scheduled/document ed in this visit THERAPY DISEASE MANAGEMENT (O) [...] management strategies by date 02/26/22 [facility] COVID-19 No Physical Therapy Evaluation Description: After assessing the patient and discussing the patient's goals the following were identified: Patient centered termite renewal inspector goal: walk longer distances with appropriate vital sign response. Target Date: within 3 weeks PHYSICAL THERAPY EVALUATION (O) No Interventions Intervention Associated Problem/Goal Status Variance Visit Notes COVID-19 Evaluation/Education Description: Perform COVID-19 monitoring and education including symptoms to report, social distancing, aerosolizing procedures, and COVID-19 precautions. Problem:/[facility] COVID-19 Goal:COVID-19 Completed Is patient experiencing [...] home, separation from family/ pets and communication strategies, Medical care: notify all providers of COVID-19 status before appointments., Aerosolizing procedure precautions: avoid interaction with others for 45 minutes after nebulizer, high flow O2, CPAP or BIPAP, PPE: wear a facemask around others in the room, the car and before entering a public place, Cover coughs and sneezes, dispose of tissues in a lined trashcan and wash hands., Wash hands often with soap and water for 20+ seconds or alcohol diamond sawer until hands feel dry., Avoid touching your face with unwashed hands. and Clean all high touch surfaces daily (counters, tables, electronics, toilets, bathroom fixtures, phones, etc.) Instruction provided to Patient. Response verbalize understanding Therapy Depression (O) Description: Assess and monitor for signs and symptoms of depression. Problem:THERAPY DISEASE MANAGEMENT (O) Completed Patient shows signs of depression no Symptoms reported to physician (no, no symptoms). Physical Therapy General (Order Only) Description: Clinical findings: 51 year old female inpatient 02/08/22-02/10/22 with hypoxia and acute respiratory failure. She was found to have Covid-19 and influenza A on 02/08/22. Patient was back in ED on 02/13/22 with headache, dizziness and cough. Patient answers the door to [facility] walking with cane CGA. She ambulates [...] THERAPY EVALUATION (O) Goal:Physical Therapy Evaluation Completed documented in this encounter Care Teams Electronic Service Technician Relationship Specialty Start Date End Date Daja Kern MD [address] [place] [address] PCP - General Internal Medicine 03/13/15 documented as of this encounter
--- OUTSIDE RECORDS SUMMARY | 2024-03-03 19:28 | XMS_ITS | Encounter Summary ---
Author Organization [facility] Address [address] [place] [address] Phone Care Team Providers Care Mining Consultant Name Role Phone Daja Kern MD Primary Care Provider [phone] Reason for Visit * Auth/Cert (Routine) Specialty Diagnoses / Procedures Referred By Contac t Referred To Contact Referral ID Status Reason Start Date Expiration Date Visits Re quested Visits Authorized [id number] 1 1 Encounter Details Date Type Department Care Team (Late st Contact Info) Description 02/18/2022 1:00 AM HAT CONE INSPECTOR [facility] [address] [place] [address] Sr Jeana Butcher RN [place] DISEASE MGT [...] to have Coronavirus/COVID-19? Yes 02/15/2022 3:14 PM HAT CONE INSPECTOR documented as of this encounter Last Filed Vital Signs Vital Sign Reading Time Taken Comments Blood Pressure 144/90 02/18/2022 9:55 AM HAT CONE INSPECTOR Pulse 87 02/18/2022 9:55 AM HAT CONE INSPECTOR Temperature 36.7 ??C (98 ??F) 02/18/2022 9:55 AM HAT CONE INSPECTOR Respiratory Rate - - Oxygen Saturation 97% 02/18/2022 9:55 AM HAT CONE INSPECTOR Inhaled Oxygen Concentration - - Weight - - Height - - Body Mass Index - - documented in this encounter Plan of Treatment Upcoming Encounters Date Type Department Care Team (Late st Contact Info) Description 03/27/2024 8:30 AM HAT CONE INSPECTOR [facility] [address] [place] [address] Burt Eastman MD [address] [address] 03/27/2024 8:30 AM HAT CONE INSPECTOR - 03/27/2024 9:00 AM HAT CONE INSPECTOR [facility] [address] [place] [address] Burt Eastman MD [address] [address] COLONOSCOPY 04/09/2024 1:15 PM HAT CONE INSPECTOR Office Visit [facility] - Pulmonology & [facility] Medicine [facility] [address] [place] [address] Baron Vergara MD [address] [place] [address] Scheduled Procedures Name Priority Associated Diagnoses Date/Ti me COLONOSCOPY HISTORY OF COLON POLYPS 03/27/2024 8:30 AM HAT CONE INSPECTOR documented as of this encounter Visit Diagnoses Not on filedocumented in this encounter Additional Health Concerns Infection Onset Date Last Indicated Resolved Time Respiratory Rule-Out 02/08/2022 02/08/2022 023 12:16 AM HAT CONE INSPECTOR COVID - 19 Confirmed 02/08/2022 02/08/202202/28/2 023 12:16 AM HAT CONE INSPECTOR documented as of this encounter Care Teams Mining Consultant Relationship Specialty Start Date End Date Daja Kern MD [address] [facility] [address] [place] [address] PCP - General Internal Medicine 03/13/15 documented as of this encounter
--- OUTSIDE RECORDS SUMMARY | 2024-03-03 19:28 | XMS_ITS | Encounter Summary ---
Author Organization [facility] [employer] [facility] Care Team Providers Care Industrial Engineering Name Role Phone Daja Kern MD Primary Care Provider [phone] Encounter Details Date Type Department Care Team (Latest Contact Info) Description 02/13/2022 Travel Social History Tobacco Use Types Packs/Day [...] confirmed or suspected to have Coronavirus/COVID-19? Yes 02/13/2022 9:33 PM CAREER CENTER ADVISOR documented as of this encounter Plan of Treatment Upcoming Encounters Date Type Department Care Team (Late st Contact Info) Description 03/27/2024 8:30 AM CAREER CENTER ADVISOR [facility] [address] [place] [id number] Burt Eastman MD [address] [facility] [address] [address] 03/27/2024 8:30 AM CAREER CENTER ADVISOR - 03/27/2024 9:00 AM CAREER CENTER ADVISOR Surgery [facility] [address] [place] [phone] Burt Eastman MD 2 [facility] [address] [address] [address] COLONOSCOPY 04/09/2024 1:15 PM CAREER CENTER ADVISOR [facility] [address] [place] [address] Baron Vergara MD [address] [place] [phone] Scheduled Procedures Name Priority Associated Diagnoses Date/Ti me COLONOSCOPY HISTORY OF COLON POLYPS 03/27/2024 8:30 AM CAREER CENTER ADVISOR documented as of this encounter Visit Diagnoses Not on filedocumented in this encounter Additional Health Concerns Infection Onset Date Last Indicated Resolved Time Respiratory Rule-Out 02/08/2022 02/08/2022 023 12:16 AM CAREER CENTER ADVISOR Influenza 02/08/2022 02/08/2022 02/15/2022 12:1 9 AM CAREER CENTER ADVISOR COVID - 19 Confirmed 02/08/2022 02/08/2022 023 12:16 AM CAREER CENTER ADVISOR documented as of this encounter Care Teams Industrial Engineering Relationship Specialty Start Date End Date Daja Kern MD [address] [place] [address] PCP - General Internal Medicine 03/13/15 documented as of this encounter
--- OUTSIDE RECORDS SUMMARY | 2024-03-03 19:28 | XMS_ITS | Encounter Summary ---
Author Organization [facility] Address [address] [place] [address] Phone Care Team Providers Care Special Equipment Technician Name Role Phone Daja Kern MD Primary Care Provider [phone] Reason for Visit * Reason Comments Abdominal Pain Exposure to STD Encounter Details Date Type Department Care Team ([facility] st Contact Info) Description 12/16/2021 2:44 PM CDT - 12/16/2021 4:49 PM CDT Emergency [facility] Emergency [address] [place] [address] Dhara Smith APRN, GLAZIER APPRENTICE [address] [place] [address] Lower abdominal pain Discharge Disposition: Discharged to home or Selfcare [...] suspected to have Coronavirus/COVID-19? No / Unsure 12/16/2021 2:46 PM CDT documented as of this encounter Last Filed Vital Signs Vital Sign Reading Time Taken Comments Blood Pressure 150/88 12/16/2021 4:30 PM CDT Pulse 89 12/16/2021 4:30 PM CDT Temperature 36.6 ??C (97.9 ??F) 12/16/2021 2:47 PM CD T Respiratory Rate 22 12/16/2021 2:47 PM CDT Oxygen Saturation 96% 12/16/2021 4:30 PM CDT Inhaled Oxygen Concentration - - Weight 120.2 kg (265 lb) 12/16/2021 2:47 PM CDT Height 157.5 cm (5' 2 ) 12/16/2021 2:47 PM CDT Body Mass Index 48.47 12/16/2021 2:47 PM CDT documented in this encounter Discharge Instructions * Discharge Instructions* Dhara Smith APRN, CNP - 12/16/2021 4:17 PM CDT Please follow-up with PCP. * Attachments The following attachments cannot be sent through Care Everywhere. * Syphilis (Slovak) * Abdominal Pain Adult Jkyz-ye-Qalq (Slovak) documented in this encounter Medications at Time [...] Tablet Take 100 mg by mouth nightly. Aripiprazole 20 MG Tablet Take 20 mg by mouth daily. 3 baclofen (LIORESAL) 20 MG Tablet Take 20 mg by mouth 2 times daily as needed. 3 ondansetron (Zofran ODT) 4 MG TABLET DISPERSIBLE Take 1 Tablet by mouth every 8 hours as needed for Nausea - 1st line. 10 Tablet 12/16/2021 2 pregabalin (LYRICA) 75 MG Capsule Take 75 mg by mouth 2 times daily. 3 sertraline (ZOLOFT) 100 MG Tablet Take 150 mg by mouth daily. Take 100mg by mouth daily 3 sertraline (ZOLOFT) 50 MG Tablet Take 50 mg by mouth daily. 09/02/2021 3 simvastatin (ZOCOR) 10 MG Tablet Take 10 mg by mouth every evening. 12/13/2018 2 triamterene-hydro chlorothiazide (MAXZIDE) 37.5-25 MG Tablet Take 1 Tab by mouth daily. 2 Trulicity 1.5 MG/0.5ML Solution Pen-injector 1.5 mg by Subcutaneous route once a week. On sundays07/08/2021 2 documented as of this encounter ED Notes * Lisandro Cardoza RN - 12/16/2021 4:48 PM CDT Patient discharged. Discharge instructions and patient educational material reviewed with patient; questions and concerns addressed; patient verbalizes understanding, using teach back. Patient was given 1 prescriptions. Patient was informed no drinking alcohol, driving or operating heavy machinery while taking narcotics or muscle relaxants. * Kit Gan RN - 12/16/2021 4:32 PM CDT Pt medicated per provider orders. Pt educated on intended effects and side effects of medication and verbalized understanding, able to provide teach back of education. * Dhara Smith APRN, GLAZIER APPRENTICE - 12/16/2021 3:08 PM CDT Chief Complaint Patient presents with ??? Abdominal Pain ??? Exposure to STD Alona Kemp is a 51 y.o. female who presents to the ED c/o multiple complaints. Patient states that she is been having lower abdominal pain that has been present for about a month. Patient states that the lower abdominal pain radiates into the left side of her back. She reports dysuria but denies hematuria. Patient also reports white vaginal discharge that is been present for 3 weeks. Patient states that she had sexual intercourse with an individual who she later found out had syphilis. She denies rash or lesions. Patient also endorses increased fatigue and nausea. She denies diarrhea or blood in her stool. Past Medical History Positives No date: Adenomatous colon polyp No date: Anxiety No date: Bipolar disorder (HCC) No date: Cocaine abuse (HCC) No date: DDD (degenerative disc disease), lumbar Comment: back No date: Depression No date: GERD (gastroesophageal reflux disease) No date: HLD (hyperlipidemia) No date: HTN (hypertension) No date: Hypothyroid No date: IBS (irritable bowel syndrome) Comment: C/D No date: Morbid obesity (HCC) No date: NAFLD (nonalcoholic fatty liver disease) No date: Nephrocalcinosis No date: KWABENA (obstructive sleep apnea) Comment: does not use cpap 09/2018: SBO (small bowel obstruction) ([facility]) No date: Vitamin D deficiency Current Facility-Administered Medications Medication Dose Route Frequency Provider Last Rate Last Admin ??? azithromycin (ZITHROMAX) tablet 250 mg 250 mg Oral Once Dhara Smith APRN, GLAZIER APPRENTICE ??? cefTRIAXone (ROCEPHIN) injection 500 mg 500 mg Intramuscular Once Dhara Smith APRN, GLAZIER APPRENTICE ??? penicillin G benzathine (BICILLIN LA) [id number] UNIT/2ML injection 2.4 Million Units 2.4 Million Units Intramuscular Once Dhara Smith APRN, GLAZIER APPRENTICE Current Outpatient Medications Medication Sig Dispense Refill ??? Aripiprazole 20 MG Tablet Take 20 mg by mouth daily. ??? baclofen (LIORESAL) 20 MG Tablet Take 20 mg by mouth 2 times daily as needed. ??? DULoxetine (CYMBALTA) [address] Particles Take 60 mg by mouth nightly. ??? irbesartan (AVAPRO) 150 MG Tablet Take 150 mg by mouth daily. ??? levothyroxine (SYNTHROID) 50 MCG Tablet Take 50 mcg by mouth daily. Indications: Underactive Thyroid ??? omeprazole (PriLOSEC) 40 MG CAPSULE DELAYED RELEASE Take 1 Capsule by mouth daily. 90 Capsule 0 ??? ondansetron (Zofran ODT) 4 MG TABLET DISPERSIBLE Take 1 Tablet by mouth every 8 hours as neededfor Nausea - 1st line. 10 Tablet 0 ??? pregabalin (LYRICA) 75 MG Capsule Take 75 mg by mouth 2 times daily. ??? sertraline (ZOLOFT) 100 MG Tablet Take 150 mg by mouth daily. ??? sertraline (ZOLOFT) 50 MG Tablet Take 50 mg by mouth daily. ??? simvastatin (ZOCOR) 10 MG Tablet Take 10 mg by mouth every evening. ??? traZODone (DESYREL) 50 MG Tablet Take 100 mg by mouth nightly. ??? triamterene-hydrochlorothiazide (MAXZIDE) 37.5-25 MG Tablet Take 1 Tab by mouth daily. ??? Trulicity 1.5 MG/0.5ML Solution Pen-injector 1.5 mg by Subcutaneous route once a week. On sundays Allergies Allergen Reactions ??? Geodon [Ziprasidone Hcl] [...] POLYPS, BIOPSIES; Surgeon: Damian Gallardo DO; Location: [facility]; Service: Gastroenterology ??? EGD 2012? [facility] ??? UPPER GASTROINTESTINAL ENDOSCOPY N/A 02/06/2019 Procedure: EGD, SMALL BOWEL BIOSY, GASTRIC POLYP, SAMANTHA TEST; Surgeon: Damian Gallardo DO; Location: [facility]; Service: Gastroenterology ??? WISDOM TOOTH EXTRACTION 1992 4 wisdom teeth removed. Social History Socioeconomic History ??? Marital status: Spouse name: Not on file ??? Number of children: Not on file ??? Years of education: Not on file ??? Highest education level: Not on file Occupational History ??? Not on file Tobacco Use ??? Smoking status: Never Smoker ??? Smokeless tobacco: Never Used Vaping Use ??? Vaping Use: Never used Substance and Sexual Activity ??? Alcohol use: No ??? Drug use: Yes Types: Cocaine ??? Sexual activity: Not Currently Partners: Male Other Topics Concern ??? Not on file Social History Narrative ??? Not on file BP (!) 164/112 Pulse 100 Temp 97.9 ??F (36.6 ??C) (Tympanic) Resp 22 Ht 5' 2 (1.575 m) Wt 265 lb (120.2 kg) LMP 11/12/2019 SpO2 96% BMI 48.47 kg/m?? Review of Systems Constitutional: Positive for fatigue. Negative for chills and fever. HENT: Negative for congestion, ear pain, rhinorrhea and sore throat. Eyes: Negative for discharge. Respiratory: Negative for cough, chest tightness, shortness of breath and wheezing. Cardiovascular: Negative for chest pain and palpitations. Gastrointestinal: Positive for abdominal pain and nausea. Negative for diarrhea and vomiting. Genitourinary: Positive for dysuria, flank pain, frequency and vaginal discharge. Negative for difficulty urinating, hematuria, menstrual problem and vaginal bleeding. Musculoskeletal: Negative for arthralgias and myalgias. Skin: Negative for rash and wound. Neurological: Negative for dizziness, syncope, weakness, numbness and headaches. All other systems reviewed and [...] Palpations: Abdomen is soft. Tenderness: There is abdominal tenderness in the suprapubic area. There is left CVA tenderness. There is no right CVA tenderness, guarding or rebound. Musculoskeletal: General: Normal range of motion. Cervical back: Normal range of motion. Skin: General: Skin is warm and dry. Capillary Refill: Capillary refill takes less than 2 seconds. Neurological: Mental Status: She is alert and oriented to person, place, and time. Cranial Nerves: No cranial nerve deficit. Procedures Imaging Results None Labs Reviewed CMP (COMPREHENSIVE METABOLIC PANEL) - Abnormal; Notable for the following components: Result Value GLUCOSE 158 (*) CREATININE, BLOOD 0.53 (*) BUN/CREATININE RATIO 26 (*) All other components within normal limits HEMOGLOBIN A1C W/ ESTIMATED GLUCOSE - Abnormal; Notable for the following components: HGB-A1C 6.1 (*) All other components within normal limits Narrative: HEMOGLOBIN A1C: DIABETIC PATIENTS: WELL-CONTROLLED: 6.2 - 7.0 INTERMEDIATE WELL-CONTROLLED: 7.0 - 9.0 POORLY-CONTROLLED: >9.0 CBC WITH AUTO DIFFERENTIAL - Abnormal; Notable for the following components: WBC 12.77 (*) NEUTROPHILS 85.0 (*) LYMPHOCYTES 9.1 (*) ABSOLUTE NEUTROPHILS 10.86 (*) ABSOLUTE LYMPHOCYTES 1.16 (*) All other components within normal limits LIPASE - Normal COMPLETE BLOOD COUNT (CBC) WITH DIFF Narrative: The following orders were created for panel order CBC with Diff [id number]. Procedure Abnormality Status --------- ------ CBC with Auto Differential[[id number]] Abnormal Final result Please view results for these tests on the individual orders. URINALYSIS REFLEX IF INDICATED BY ABNORMAL RESULTS CHLAMYDIA & GC DNA PROBE Narrative: The following orders were created for panel order Chlamydia & Gc Dna Probe [id number]. Procedure Abnormality Status --------- ------ CHLAMYDIA & GC DNA PROBE...[[id number]] In process Please view results for these tests on the individual orders. RPR, DILUTION IF POSITIVE CHLAMYDIA & GC DNA PROBE > 12 EXTRA TUBES Narrative: The following orders were created for panel order Extra Tubes. Procedure Abnormality Status --------- ------ Blue Top Tube[[id number]] In process Please view results for these tests on the individual orders. POCT URINE HCG () BLUE TOP TUBE Labs Reviewed CMP (COMPREHENSIVE METABOLIC PANEL) - Abnormal; Notable for the following components: Result Value GLUCOSE 158 (*) CREATININE, BLOOD 0.53 (*) BUN/CREATININE RATIO 26 (*) All other components within normal limits HEMOGLOBIN A1C W/ ESTIMATED GLUCOSE - Abnormal; Notable for the following components: HGB-A1C 6.1 (*) All other components within normal limits Narrative: HEMOGLOBIN A1C: DIABETIC PATIENTS: WELL-CONTROLLED: 6.2 - 7.0 INTERMEDIATE WELL-CONTROLLED: 7.0 - 9.0 POORLY-CONTROLLED: >9.0 CBC WITH AUTO DIFFERENTIAL - Abnormal; Notable for the following components: WBC 12.77 (*) NEUTROPHILS 85.0 (*) LYMPHOCYTES 9.1 (*) ABSOLUTE NEUTROPHILS 10.86 (*) ABSOLUTE LYMPHOCYTES 1.16 (*) All other components within normal limits LIPASE - Normal COMPLETE BLOOD COUNT (CBC) WITH DIFF Narrative: The following orders were created for panel order CBC with Diff [id number]. Procedure Abnormality Status --------- ------ CBC with Auto Differential[[id number]] Abnormal Final result Please view results for these tests on the individual orders. URINALYSIS REFLEX IF INDICATED BY ABNORMAL RESULTS CHLAMYDIA & GC DNA PROBE Narrative: The following orders were created for panel order Chlamydia & Gc Dna Probe [id number]. Procedure Abnormality Status --------- ------ CHLAMYDIA & GC DNA PROBE...[[id number]] In process Please view results for these tests on the individual orders. RPR, DILUTION IF POSITIVE CHLAMYDIA & GC DNA PROBE > 12 EXTRA TUBES Narrative: The following orders were created for panel order Extra Tubes. Procedure Abnormality Status --------- ------ Blue Top Tube[[id number]] In process Please view results for these tests on the individual orders. POCT URINE HCG () BLUE TOP TUBE CBC with Diff [id number] Final Result Comprehensive Metabolic Panel (Cmp) [id number] Final Result Lipase [id number] Final Result Hemoglobin A1C w/ Estimated Glucose Final Result URINALYSIS REFLEX IF INDICATED BY ABNORMAL RESULTS Final Result Chlamydia & Gc Dna Probe [id number] (Results Pending) RPR, Dilution If Positive (Results Pending) CHLAMYDIA & GC DNA PROBE > 12 (Results Pending) Extra Tubes (Results Pending) MDM Number of Diagnoses or Management Options Amount and/or Complexity of Data Reviewed Clinical lab tests: ordered and reviewed Review and summarize past medical records: yes Reviewed: previous chart, nursing note and vitals Reviewed previous: labs Interpretation: labs Clinical Impression 1. Exposure to STD 2. Lower abdominal pain Patient opted for treatment of syphilis, gonorrhea going to chlamydia. Will treat with penicillin, Rocephin and azithromycin. Recommended follow-up with primary care physician. Advised patient to return to the ED with worsening symptoms. The patient remained stable throughout their ED [...] the need for follow up. Cosigned by Sushil Justin DO at 12/16/2021 5:34 PM CDT * Lisandro Cardoza RN - 12/16/2021 2:53 PM CDT Pt to ED room 10 via [facility] ems with abdominal pain that has been ongoing for the past month along with intermittent SYED. Pt states that she has just overall not been feeling well. States concern for possible exposure to syphilis. She states that she was with someone about three weeks ago that later contacted her and made her aware that they had syphilis. PT states that she has also been having a thick white discharge, and nausea without emesis. Dhara Smith APRN at bedside for assessment at timeor arrival. * Niyah Campa EMT - 12/16/2021 2:45 PM CDT Bed: ED10-01 Expected date: 12/16/21 Expected time: 2:44 PM Means of arrival: Ambulance Comments: [facility] [age] Y/O F ABD PAIN, ANXIETY documented in this encounter Plan of Treatment Upcoming Encounters Date Type Department Care Team (Late st Contact Info) Description 03/27/2024 8:30 AM DRYWALL HANGER HELPER Hospital Encounter [facility] Periop [address] [place] [address] Burt Eastman MD [address] [address] 03/27/2024 8:30 AM DRYWALL HANGER HELPER - 03/27/2024 9:00 AM DRYWALL HANGER HELPER Surgery [facility] [address] [place] [address] Burt Eastman MD [address] [address] COLONOSCOPY 04/09/2024 1:15 PM DRYWALL HANGER HELPER Office Visit [facility] - Pulmonology & Sleep Medicine [facility] [address] [place] [address] Baron Vergara MD [address] [place] [address] Scheduled Procedures Name Priority Associated Diagnoses Date/Ti me COLONOSCOPY HISTORY OF COLON POLYPS 03/27/2024 8:30 AM DRYWALL HANGER HELPER documented as of this encounter Procedures Procedure Name Priority Date/Time Associated Diagnosis Comments EKG SCAN 02/08/2022 12:00 AM DRYWALL HANGER HELPER EXTRA TUBES STAT 12/16/2021 4:08 PM CDT BLUE TOP TUBE STAT 12/16/2021 4:08 PM CDT HEMOGLOBIN A1C W/ ESTIMATED GLUCOSE STAT 12/16/2021 3:04 PM CDT CBC WITH AUTO DIFFERENTIAL STAT 12/16/2021 3:04 PM CDT RPR, DILUTION IF POSITIVE STAT 12/16/2021 3:04 PM CDT LIPASE STAT 12/16/2021 3:04 PM CDT CMP (COMPREHENSIVE METABOLIC PANEL) STAT 12/16/2021 3:04 PM CDT COMPLETE BLOOD COUNT (CBC) WITH DIFF STAT 12/16/2021 3:04 PM CDT CHLAMYDIA & GC DNA PROBE > 12 STAT 12/16/2021 2:55 PM CDT URINALYSIS REFLEX IF INDICATED BY ABNORMAL RESULTS STAT 12/16/2021 2:55 PM CDT CHLAMYDIA & GC DNA PROBE STAT 12/16/2021 2:55 PM CDT documented in this encounter Results * EKG SCAN (02/08/2022 12:00 AM DRYWALL HANGER HELPER) 02/08/2022 us Not On File Provider IMG ECG ORDERABLES Final Re sult SCAN * Blue Top Tube (12/16/2021 4:08 PM CDT) Blood No Phlebotomy Charged / Unknown 12/16/2021 4:08 PM CDT 12/16/2021 4:08 PM CDT us Sushil Justin DO HEMATOLOGY ORDERABLES F inal Result [facility] [address] [place] [address] * (ABNORMAL) CBC with Auto Differential (12/16/2021 3:04 PM CDT) WBC 12.77(H) 4.00 - 12.00 10(3)/mcL 12/16/2021 3:20 PM CDT [facility] RBC 4.62 3.80 - 5.30 10(6)/mcL 12/16/2021 3:20 PM CDT [facility] HEMOGLOBIN (HGB) 13.6 12.0 - 15.8 g/dL 12/16/2021 3:20 PM CDT [facility] HEMATOCRIT (HCT) 42.6 36.0 - 47.0 % 12/16/2021 3:20 PM CDT [facility] MCV 92.2 82.0 - 96.0 fL 12/16/2021 3:20 PM CDT [facility] MCH 29.4 26.0 - 34.0 pg 12/16/2021 3:20 PM CDT [facility] MCHC 31.9 31.0 - 36.0 g/dL 12/16/2021 3:20 PM CDT [facility] PLATELET COUNT 226 140 - 440 10(3)/mcL 12/16/2021 3:20 PM CDT [facility] RDW 13.7 11.8 - 15.5 % 12/16/2021 3:20 PM CDT [facility] MPV 11.5 9.7 - 12.4 fL 12/16/2021 3:20 PM CDT [facility] NEUTROPHILS 85.0(H) 47.0 - 73.0 % 12/16/2021 3:20 PM CDT [facility] LYMPHOCYTES 9.1(L) 18.0 - 42.0 % 12/16/2021 3:20 PM CDT [facility] MONOCYTES 5.5 4.0 - 12.0 % 12/16/2021 3:20 PM CDT [facility] EOSINOPHILS 0.2 0.0 - 5.0 % 12/16/2021 3:20 PM CDT [facility] BASOPHILS 0.2 0.0 - 1.0 % 12/16/2021 3:20 PM CDT [facility] ABSOLUTE NEUTROPHILS 10.86(H) 1.60 - 7.70 10(3)/mcL 12/16/2021 3:20 PM CDT [facility] ABSOLUTE LYMPHOCYTES 1.16(L) 1.30 - 3.20 10(3)/mcL 12/16/2021 3:20 PM CDT [facility] ABSOLUTE MONOCYTES 0.70 0.20 - 1.00 10(3)/mcL 12/16/2021 3:20 PM CDT [facility] ABSOLUTE EOSINOPHIL 0.02 0.00 - 0.40 10(3)/mcL 12/16/2021 3:20 PM CDT [facility] ABSOLUTE BASOPHILS 0.03 0.00 - 0.10 10(3)/mcL 12/16/2021 3:20 PM CDT [facility] NRBC PER 100 WBC 0 12/17/19 3:20 PM CDT [facility] Blood Venipuncture / Unknown 12/16/2021 3:04 PM CDT 12/16/2021 3:16 PM CDT us Dhara Smith PATROL CAPTAIN, GLAZIER APPRENTICE HEMATOLOGY ORDERABLES Final Result [facility] [address] [place] [address] * RPR, Dilution If Positive (12/16/2021 3:04 PM CDT) RPR SCRN, TITR IF POS NONREACTIVE NONREACTIVE 12/17/2021 9:56 AM CDT [facility]GG [facility]CREEN BEEN ORDERED No 12/17/2021 9:56 AM CDT [facility] Blood Venipuncture / Unknown 12/16/2021 3:04 PM CDT 12/16/2021 3:15 PM CDT us Dhara Smith PATROL CAPTAIN, GLAZIER APPRENTICE IMMUNOLOGY ORDERABLES Final Result Performing Organization Address City/[facility] Co de Phone Number [facility] [address] [place] [address], [facility] [address] [place] [address] * (ABNORMAL) Hemoglobin A1C w/ Estimated Glucose (12/16/2021 3:04 PM CDT) HGB-A1C 6.1(H) 4.0 - 6.0 % 12/16/2021 3:51 PM CDT [facility] Est Average Glucose 128.4 mg/dL 12/16/2021 3:51 PM CDT [facility] Blood Venipuncture / Unknown 12/16/2021 3:04 PM CDT 12/16/2021 3:15 PM CDT Narrative [facility] - 12/16/2021 3:51 PM CDT HEMOGLOBIN A1C: DIABETIC PATIENTS: WELL-CONTROLLED: ?? 6.2 - 7.0 INTERMEDIATE WELL-CONTROLLED: ??7.0 - 9.0 POORLY-CONTROLLED: ??>9.0 us Dhara Smith PATROL CAPTAIN, GLAZIER APPRENTICE CHEMISTRY ORDERABLES Final Result [facility] [address] [place] [address] * Lipase [id number] (12/16/2021 3:04 PM CDT) LIPASE 30.7 13 - 60 U/L 12/16/2021 3:47 PM CDT [facility] Blood Venipuncture / Unknown 12/16/2021 3:04 PM CDT 12/16/2021 3:16 PM CDT us Dhara Smith PATROL CAPTAIN, GLAZIER APPRENTICE CHEMISTRY ORDERABLES Final Result Performing Organization Address [facility] Co de Phone Number [facility] [address] [place] [address] * (ABNORMAL) Comprehensive Metabolic Panel (Cmp) [id number] (12/16/2021 3:04 PM CDT) Pathologist [facility] SODIUM 140 136 - 144 mmol/L 12/16/2021 3:47 PM CDT [facility] POTASSIUM 3.6 3.5 - 5.1 mmol/L 12/16/2021 3:47 PM CDT [facility] CHLORIDE 103 100 - 110 mmol/L 12/16/2021 3:47 PM CDT [facility] CO2, VENOUS 26 22 - 32 mmol/L 12/16/2021 3:47 PM CDT [facility] ANION GAP 14.6 8.0 - 20.0 mmol/L 12/16/2021 3:47 PM CDT [facility] GLUCOSE 158(H) 70 - 99 mg/dL 12/16/2021 3:47 PM CDT [facility] BUN 14 6 - 20 mg/dL 12/16/2021 3:47 PM CDT [facility] CREATININE, BLOOD 0.53(L) 0.60 - 1.10 mg/dL 12/16/2021 3:47 PM [facility] BUN/CREATININE RATIO 26(H) 12 - 20 ratio 12/16/2021 3:47 PM [facility] TOTAL PROTEIN 7.4 6.0 - 8.3 g/dL 12/16/2021 3:47 PM [facility] ALBUMIN 4.3 3.5 - 5.2 g/dL 12/16/2021 3:47 PM [facility] Comment: The colormetric methods used for the determination of Albumin may lead to falsely elevated test results in patients suffering from renal failure or insufficiency due to interference with other proteins. A/G RATIO 1.4 1.0 - 2.0 12/16/2021 3:47 PM [facility] CALCIUM 10.0 8.9 - 10.3 mg/dL 12/16/2021 3:47 PM [facility] T BILI 0.3 <=1.2 mg/dL 12/16/2021 3:47 PM [facility] SGOT (AST) 9 <=32 U/L 12/16/2021 3:47 PM [facility] SGPT (ALT) 17 <=41 U/L 12/16/2021 3:47 PM [facility] ALKALINE PHOSPHATASE 95 35 - 105 U/L 12/16/2021 3:47 PM [facility] GFR, ESTIMATED >60 >=60 12/16/2021 3:47 PM [facility] Comment: Creatinine Clearance is the preferred criteria for selecting drug dose adjustments in renally impaired patients. ??The GFR is provided as additional pertinent clinical information. GFR is reported in mL/min/1.73 sq m. Calculation based on the Chronic Kidney Disease Epidemiology Collaboration (CKD- EPI) equation refit without adjustment for race. GFR, EST. >60 >=60 022 3:47 PM CDT [facility] GFR, EST. NONAFRICAN >60 >=60 12/16/2021 3:47 PM CDT [facility] Blood Venipuncture / Unknown 12/16/2021 3:04 PM CDT 12/16/2021 3:16 PM CDT us Dhara Smith APRN, DAVID CHEMISTRY ORDERABLES Final Result Performing Organization Address City/[facility]/ZIP Co de Phone Number [facility] [address] [place] [address] * CHLAMYDIA & GC DNA PROBE > 12 (12/16/2021 2:55 PM CDT) [facility] CHLAMYDIA DNA NEGATIVE NEGATIVE 12/17/2021 1:10 PM CDT [facility] Comment: Presumed negative for C. trachomatis. ??A negative result does not preclude C. trachomatis infection because results are dependent on adequate specimen collection, absence of inhibitors, and sufficient DNA to be detected. This test was performed using Polymerase Chain Reaction (PCR) on the [employer]00 System. GC DNA NEGATIVE NEGATIVE 12/17/2021 1:10 PM CDT [facility] Comment: Presumed negative for N. gonorrhoeae. ??A negative result does not preclude N. gonorrhoeae infection because results are dependent on adequate specimen collection, absence of inhibitors, and sufficient DNA to be detected. This test was performed using Polymerase Chain Reaction (PCR) on the [employer] 4800 System. Other URINE / Unknown Non-Phlebotomy Collection / Unknown 12/16/2021 2:55 PM CDT 12/16/2021 3:13 PM CDT Dhara Smith APRN, DAVID MICROBIOLOGY - GENERA L ORDERABLES Final Result Performing Organization Address [facility] [facility]/ZIP Co de Phone Number [facility] [address] [place] [address], [place] * URINALYSIS REFLEX IF INDICATED BY ABNORMAL RESULTS (12/16/2021 2:55 PM CDT) Pathologist [facility] [place] SPECIFIC GRAVITY 1.010 1.003 - 1.030 12/16/2021 3:31 PM CDT [facility] UR[facility] PH 7.0 5.0 - 9.0 12/16/2021 3:31 PM CDT [facility] WBC ESTERASE Negative Negative 12/16/2021 3:31 PM CDT [facility] NITRITE Negative Negative 12/16/2021 3:31 PM CDT [facility] PROTEIN, RANDOM URINE Negative Negative 12/16/2021 3:31 PM CDT [facility] URINE GLUCOSE, QUAL Negative Negative 12/16/2021 3:31 PM CDT [facility] URINE KETONES Negative Negative 12/16/2021 3:31 PM CDT [facility] UROBILINOGEN Normal Normal mg/dL 12/16/2021 3:31 PM CDT [facility] URINE BLOOD Negative Negative dylan/ul 12/16/2021 3:31 PM CDT [facility] URINALYSIS COLOR Yellow 12/17/19 3:31 PM CDT [facility] URINALYSIS CLARITY Clear 12/16/2021 3:31 PM CDT [facility] Urine URINE SPECIMEN COLLECTION, CLEAN CATCH / Unknown Non-Phlebotomy Collection / Unknown 12/16/2021 2:55 PM CDT 12/16/2021 3:13 PM CDT us Dhara Smith PATROL CAPTAIN, GLAZIER APPRENTICE URINE ORDERABLES Radha l Result [facility] [address] [place] [address] documented in this encounter Visit Diagnoses Diagnosis Exposure to STD- Primary Contact with or exposure to venereal diseases Lower abdominal pain Abdominal pain, other specified site documented in this encounter Administered Medications Inactive Administered Medications - up to 3 most recent administrations Medication Order MAR Action Action Date Dose Rate Site 0.9 % sodium chloride solution at 999 mL/hr, Intravenous, ONCE, 1 dose, On Natalie 12/16/21 at 1530 New Bag 12/16/2021 3:33 PM CDT 1,000 mL 999 mL/hr azithromycin (ZITHROMAX) tablet 1,000 mg 1,000 mg, Oral, ONCE, 1 dose, On Natalie 12/16/21 at 1700, Indications: std exposureIndication s:std exposure Given 12/16/2021 4:31 PM CDT 1,000 mg cefTRIAXone (ROCEPHIN) injection 500 mg 500 mg, Intramuscular, ONCE, 1 dose, On Natalie 12/16/21 at 1630, Indications: Sexually Transmitted DiseaseIndications :Sexually Transmitted Disease Given 12/16/2021 4:31 PM CDT 500 mg Left Ventrogluteal ketorolac (TORADOL) injection 30 mg 30 mg, Intravenous, ONCE, 1 dose, On Natalie 12/16/21 at 1530 Given 12/16/2021 3:33 PM CDT 30 mg lidocaine (PF) 2 % injection SOLN 5 mL 5 mL, Injection, ONCE, 1 dose, On Natalie 12/16/21 at 1700 Given 12/16/2021 4:31 PM CDT 5 mL LIDOCAINE HCL (PF) 2 % IJ SOLN 1 dose, Starting on Natalie 12/16/21 at 1623, Until Natalie 12/16/21 at 1631, Created by cabinet override penicillin G benzathine (BICILLIN LA) [id number] UNIT/2ML injection 2.4 Million Units 2.4 Million Units, Intramuscular, ONCE, 1 dose, On Natalie 12/16/21 at 1630, Indications: syphilis exposureIndication s:syphilis exposure Given 12/16/2021 4:31 PM CDT 2.4 Million Units Right Ventrogluteal documented in this encounter Active and Recently Administered Medications Times are shown in CDT. Scheduled Medication Order 12/14/2021 2021 12/16/2021 0.9 % sodium chloride solution (COMPLETED) at 999 mL/hr, Intravenous, ONCE, 1 dose, On Natalie 12/16/21 at 1530 1533 (New Bag - Prov ider: Lisandro Cardoza RN)1633 (Stopped - Provider: Lisandro Cardoza RN) azithromycin (ZITHROMAX) tablet 1,000 mg (COMPLETED) 1,000 mg, Oral, ONCE, 1 dose, On Natalie 12/16/21 at 1700, Indications: std exposure 1631 (Given - Provid er: Kit Gan RN) cefTRIAXone (ROCEPHIN) injection 500 mg (COMPLETED) 500 mg, Intramuscular, ONCE, 1 dose, On Natalie 12/16/21 at 1630, Indications: Sexually Transmitted Disease 1631 (Given - Provid er: Kit Gan RN) ketorolac (TORADOL) injection 30 mg (COMPLETED) 30 mg, Intravenous, ONCE, 1 dose, On Natalie 12/16/21 at 1530 1533 (Given - Provid er: Lisandro Cardoza RN) lidocaine (PF) 2 % injection SOLN 5 mL (COMPLETED) 5 mL, Injection, ONCE, 1 dose, On Natalie 12/16/21 at 1700 1631 (Given - Provid er: Kit Gan RN) penicillin G benzathine (BICILLIN LA) [id number] UNIT/2ML injection 2.4 Million Units (COMPLETED) 2.4 Million Units, Intramuscular, ONCE, 1 dose, On Natalie 12/16/21 at 1630, Indications: syphilis exposure 163 (Given - Provid er: Kit Gan RN) documented in this encounter Care Teams Special Equipment Technician Relationship Specialty Start Date End Date Daja Kern MD [address] [place] [address] PCP - General Internal Medicine 03/13/15 documented as of this encounter
--- OUTSIDE RECORDS SUMMARY | 2024-03-03 19:28 | XMS_ITS | Encounter Summary ---
Author Organization [facility] Address [address] [place] [address] Phone Care Team Providers Care Director Environmental Name Role Phone Daja Kern MD Primary Care Provider [phone] Reason for Referral * Radiology Services (Routine) - Closed Specialty Diagnoses / Procedures Referred By Contac t Referred To Contact Radiology Diagnoses Pain in left hip Procedures XR HIP 2 VIEWS UNILATERAL LEFT Laxmi Houston APRN, CNP [address] [place] [address] Phone: tel: fax: Referral ID Status Reason Start Date Expiration Date Visits Re quested Visits Authorized [id number] Closed 10/12/2021 1 1 Reason for Visit * Radiology Services (Routine) - Closed Specialty Diagnoses / Procedures Referred By Contac t Referred To Contact Radiology Diagnoses Pain in left hip Procedures XR HIP 2 VIEWS UNILATERAL LEFT Laxmi Houston APRN MAG[employer]O ELECTRICIAN [address] [place] [address] Phone: tel: fax: Referral ID Status Reason Start Date Expiration Date Visits Re quested Visits Authorized [id number] Closed 10/12/2021 1 1 Encounter Details Date Type Department Care Team (Latest Contact Info) Description 10/12/2021 2:45 PM CDT - 10/12/2021 11:59 PM CDT Hospital Encounter [facility] Diagnostic Radiology [address] [place] [address] Laxmi Houston, [employer] INSTRUCTOR, MAGNETO ELECTRICIAN [address] [place] [address] Discharge Disposition: Discharged to home or Selfcare [...] suspected to have Coronavirus/COVID-19? No / Unsure 10/12/2021 2:44 PM CDT documented as of this encounter [...] 2 times daily as needed. 3 ondansetron (ZOFRAN-ODT) 4 MG TABLET DISPERSIBLE Take 1 Tablet by mouth every 6 hours as needed for Nausea - 1st line. 10 Tablet 08/05/2021 2 pregabalin (LYRICA) 75 MG Capsule Take [...] sundays07/08/2021 2 documented as of this encounter Plan of Treatment Upcoming Encounters Date Type Department Care Team (Late st Contact Info) Description 03/27/2024 8:30 AM TIMBER FALLER [facility] [address] [place] [address] Burt Eastman MD [address] [address] 03/27/2024 8:30 AM TIMBER FALLER - 03/27/2024 9:00 AM TIMBER FALLER [facility] Per[facility] [address] [place] [address] Burt Eastman MD [address] [address] COLONOSCOPY 04/09/2024 1:15 PM TIMBER FALLER [facility] - [place] [address] [place] [address] Baron Vergara MD [address] [place] [address] Scheduled Procedures Name Priority Associated Diagnoses Date/Ti me COLONOSCOPY HISTORY OF COLON POLYPS 03/27/2024 8:30 AM TIMBER FALLER documented as of this encounter Procedures Procedure Name Priority Date/Time Associated Diagnosis Comments XR HIP 2 VIEWS UNILATERAL LEFT Routine 10/12/2021 3:11 PM CDT Pain in left hip documented in this encounter Results * XR HIP 2 VIEWS UNILATERAL LEFT (10/12/2021 3:11 PM CDT) Anatomical Region Laterality Modality LOWER EXTREMITY, hip Left Digital Rad iography 10/14/2021 8:22 AM CDT Impressions 10/14/2021 8:24 AM CDT IMPRESSION: Minimal left hip osteoarthritis. Narrative 10/14/2021 8:24 AM CDT EXAM DESCRIPTION: XR HIP 2 VIEWS UNILATERAL LEFT REASON FOR STUDY: Pain in left hip ?? TECHNIQUE: Two views submitted with comparison CT 09/06/2021. FINDINGS: There are no fractures. ??The femoral head is well seated. ?? Alignment is normal. ??There is minimal left hip osteoarthritis. THIS IS AN ELECTRONICALLY VERIFIED FINAL REPORT 10/14/2021 8:22 AM - Electronically signed by ??Lavelle Justice M.D. MF: [id number] D: ??10/14/2021 8:22 AM T: ??10/14/2021 8:22 AM Report ID: [id number] Reading Location: ??[id number] Procedure Note Lavelle Justice MD - 10/14/2021 EXAM DESCRIPTION: XR HIP 2 VIEWS UNILATERAL LEFT REASON FOR STUDY: Pain in left hip TECHNIQUE: Two views submitted with comparison CT 09/06/2021. FINDINGS: There are no fractures. The femoral head is well seated. Alignment is normal. There is minimal left hip osteoarthritis. THIS IS AN ELECTRONICALLY VERIFIED FINAL REPORT 10/14/2021 8:22 AM - Electronically signed by Lavelle BULLOCK: KOBE Report ID: [id number] Reading Location: [id number] IMPRESSION: Minimal left hip osteoarthritis. Laxmi Houston APRN, DAVID IMG DIAGNOSTIC ORDERA BLES Final Result documented in this encounter Visit Diagnoses Diagnosis Pain in left hip Pain in joint, pelvic region and thigh documented in this encounter Care Teams Director Environmental Relationship Specialty Start Date End Date Daja Kern MD [address] [place] [address] PCP - General Internal Medicine 03/13/15 documented as of this encounter
--- OUTSIDE RECORDS SUMMARY | 2024-03-03 19:28 | XMS_ITS | Encounter Summary ---
Author Organization [facility] Care Team Providers Care Life Enrichment Assistant Name Role Phone Daja Kern MD Primary Care Provider [phone] Encounter Details Date Type Department Care Team (Latest Contact Info) Description 12/16/2021 Travel Social History Tobacco Use Types Packs/Day [...] Contact Info) Description 03/27/2024 8:30 AM CHILD DEVELOPMENT ASSOCIATE TEACHER [facility] 1 [facility] [place] [id number] Burt Eastman MD 2 [facility] [address] [address] 03/27/2024 8:30 AM CHILD DEVELOPMENT ASSOCIATE TEACHER - 03/27/2024 9:00 AM CHILD DEVELOPMENT ASSOCIATE TEACHER [facility] [address] [place] [address] Burt Eastman MD [address] [address] COLONOSCOPY 04/09/2024 1:15 PM CHILD DEVELOPMENT ASSOCIATE TEACHER [facility] [address] [place] [address] Baron Vergara MD [address] [place] [address] Scheduled Procedures Name Priority Associated Diagnoses Date/Ti me COLONOSCOPY HISTORY OF COLON POLYPS 03/27/2024 8:30 AM CHILD DEVELOPMENT ASSOCIATE TEACHER documented as of this encounter Visit Diagnoses Not on filedocumented in this encounter Care Teams Life Enrichment Assistant Relationship Specialty Start Date End Date Daja Kern MD [address] [place] [address] PCP - General Internal Medicine 03/13/15 documented as of this encounter
--- OUTSIDE RECORDS SUMMARY | 2024-03-03 19:28 | XMS_ITS | Encounter Summary ---
Author Organization [facility] Address [address] [place] [address] Phone Care Team Providers Care Hr Leader Name Role Phone Daja Carballo MD Primary Care Provider [phone] Reason for Visit * Reason Comments High Blood Pressure Encounter Details Date Type Department Care Team ([facility] st Contact Info) Description 02/15/2022 3:03 PM HAUL TRUCK DRIVER - 02/15/2022 5:57 PM HAUL TRUCK DRIVER Emergency [facility] Emergency [address] [place] [address] Mathew Batres, PAC [address] [place] [address] Influenza A Discharge Disposition: Discharged to home or Selfcare [...] to have Coronavirus/COVID-19? Yes 02/15/2022 3:14 PM HAUL TRUCK DRIVER documented as of this encounter Last Filed Vital Signs Vital Sign Reading Time Taken Comments Blood Pressure 164/93 02/15/2022 5:45 PM HAUL TRUCK DRIVER Pulse 84 02/15/2022 5:45 PM HAUL TRUCK DRIVER Temperature 36.9 ??C (98.4 ??F) 02/15/2022 3:[address] Respiratory Rate 19 02/15/2022 5:45 PM HAUL TRUCK DRIVER Oxygen Saturation 99% 02/15/2022 5:45 PM HAUL TRUCK DRIVER Inhaled Oxygen Concentration - - Weight 120.2 kg (265 lb) 02/15/2022 3:12 PM HAUL TRUCK DRIVER Height 157.5 cm (5' 2 ) 02/15/2022 3:12 PM HAUL TRUCK DRIVER Body Mass Index 48.47 02/15/2022 3:12 PM HAUL TRUCK DRIVER documented in this encounter Discharge Instructions * Attachments The following attachments cannot be sent through Care Everywhere. * Symptoms of COVID-19 - CDC (04/20/2020) (Estonian) documented in this encounter Medications at Time [...] nightly. albuterol 108 (90 Base) MCG/ACT Aerosol SolutionIndicatio ns:Acute respiratory failure with hypoxia (HCC) take 2 Puffs by inhalation every 6 hours as needed for Wheezing or Cough. 6.7 g 02/10/2022 3 Aripiprazole 20 MG Tablet Take 20 mg by mouth daily. 3 baclofen (LIORESAL) 20 MG Tablet Take 20 mg by mouth 2 times daily as needed. 3 benzonatate (TESSALON) 100 MG Capsule Take 1 Capsule by mouth 3 times daily as needed for Cough for up to 10 days. 30 Capsule 02/10/2022 2 dexamethasone 6 MG Tablet Take 1 Tablet by mouth daily after breakfast for 7 days. 7 Tablet 02/11/2022 2 ketorolac (TORADOL) 10 MG Tablet Take 1 Tablet by mouth every 6 hours as needed for Moderate or more severe pain. 20 Tablet 02/13/2022 3 pregabalin (LYRICA) 75 MG Capsule Take 75 mg by mouth 2 times daily. 3 sertraline (ZOLOFT) 100 MG Tablet Take 150 mg by mouth daily. Take 100mg by mouth daily 3 sertraline (ZOLOFT) 50 MG Tablet Take 50 mg by mouth daily. 09/02/2021 3 documented as of this encounter ED Notes * Jarvis Alvarez - 02/15/2022 5:55 PM CST Patient discharged. Discharge instructions and patient educational material reviewed with patient; questions and concerns addressed; patient verbalizes understanding, using teach back. Patient was given 0 prescriptions. Patient discharged per ambulatory mode with self as responsible green party. SL D/C'ed with Chadwick cath intact. No distress noted at this time. TRUCK DRIVER * Milagro Hedrick RN - 02/15/2022 3:59 PM CST Case Management Comprehensive Assessment Alona's readmission risk level (if calculated) is: 3-Medium High Patient Class: Emergency Consecutive Inpatient Midnights :none - not currently inpatient class Actual day(s) of hospital stay (compare to working DRG): 0 Reason for Technology Adoption ManagerLift Slab Operator: High Risk for Readmission (High, Medium- High) and Re-hospitalization Alona is in the hospital due to: High blood pressure Prior to Admission (Support, Living Environment,ADLs IADLs, Transportation, Employment, Access to Care) Patient is a 51 yo , disabled, female with a PMHx of morbid obesity, depression, anxiety, bipolar disorder, hypothyroid, GERD, hyperlipidemia, hypertension, and diabetes type 2. Patient lives alone in a rented ground level apartment ([employer] [facility] in [place]). She receives disability income of $840 per month and manages her own finances. Patient is independent with ADL'sand does her own cooking, cleaning, and laundry. She doesn't drive and her mother provides transportation. She uses DME of a cane and also owns a CPAP but does not use it. Her PCP is DAJA CARBALLO MD. She has Medicaid [place] insurance and denies issues affording/obtaining medications. She receives her medications through mail order from [facility] pharmacy. Patient does not have a HC-POA on file and declines information at this time. Patient is current with the following home health agency: [facility] nursing, physical therapy, occupational therapy Alona is a 30 day re-hospitalization Index hospitalization dates: 02/08/22- 02/10/22 Index hospitalization principle problem: Acute Respiratory Failure with hypoxia Index Hospitalization Discharge disposition and services (ie., home health, SNF, equipment - include the names of the agency and services / equipment provided by agency ): [facility] Did patient declines services on index hospitalization?: No Alona/family's account of events from index hospital discharge leading to current hospitalization: Patient's home health RN took her blood pressure and told her she needed to go to the ED because it was high. Per patient, her home health RN also called her PCP and notified him. Patient filled her medication at discharge and has been taking as directed. She has a follow-up appointment scheduled with her PCP for March 10. Plan of Care (Problem/ situation/ barrier + goals/ milestones + interventions + evaluation of progress = Plan of Care) Hospital Plan: Treat in ED, likely discharge after treatment Anticipated Discharge Plan: Home Health () 02/15/22 Patient/ patient health and safety representative's preferences regarding the discharge plan: Home with [facility] of [facility] SUMMARY (summary of interaction with patient/decision maker, family and interdisciplinary team) Met with Alona and introduced self and role and discussed plan of care. CM met with patient and she plans to return home with [facility] of [facility] once she is discharged from the ED. She has a follow-up appointment scheduled with her PCP for March 10 and states she will be able to attend. Per patient, her PCP is aware she had to go to the ED for increased blood pressure and her home health RN has been in contact with him. Patient was tearful and CM provided emotional support. Patient states her mother will drive her home and denies any additional discharge planning needs. IM Letter Documentation, if applicable N/A - Payor is not Medicare Decision Maker / Social Services Manager Information Patient is medical decision-maker No new referrals for Kid Club Attendant at this time. TRUCK DRIVER * Jarvis Alvarez - 02/15/2022 3:46 PM CST Case management at bedside. TRUCK DRIVER * Mathew Batres PAC - 02/15/2022 3:37 PM CST Chief Complaint Patient presents with ??? High Blood Pressure Alona Kemp is a 51 y.o. female who presents to the ED c/o SYED, HTN and influenza/COVID positive. Patient seen here 2 days ago for same. BP at home reported 160/110, currently 155/113. Past Medical History Positives No date: Adenomatous [...] use cpap 09/2018: SBO (small bowel obstruction) (HCC) No date: Vitamin D deficiency No current [...] Take 150 mg by mouth daily. ??? ketorolac (TORADOL) 10 MG Tablet Take 1 Tablet by mouth every 6 hours as needed for Moderate ormore severe pain. 20 Tablet 0 ??? levothyroxine (SYNTHROID) 50 MCG Tablet Take [...] Take 50 mg by mouth daily. ??? traZODone (DESYREL) 50 MG Tablet Take [...] POLYPS, BIOPSIES; Surgeon: Damian Gallardo DO; Location: [facility]; Service: Gastroenterology ??? EGD 2012? [facility] ??? UPPER GASTROINTESTINAL ENDOSCOPY N/A 02/06/2019 Procedure: EGD, SMALL BOWEL BIOSY, GASTRIC POLYP, SAMANTHA TEST; Surgeon: Damian Gallardo DO; Location: [facility]; Service: Gastroenterology ??? [...] Narrative ??? Not on file BP (!) 164/93 Pulse 84 Temp 98.4 ??F (36.9 ??C) Resp 19 Ht 5' 2 (1.575 m) Wt 265 lb (120.2 kg) LMP 11/12/2019 SpO2 99% BMI 48.47 kg/m?? Review of Systems Constitutional: Positive for fatigue. Negative for chills and fever. HENT: Positive for congestion. Respiratory: Positive for cough. Neurological: Positive for headaches. All other systems reviewed and are negative. Physical Exam Vitals and nursing note reviewed. Constitutional: General: She is not in acute distress. Appearance: She is well-developed. She is obese. She is not diaphoretic. HENT: Head: Normocephalic and atraumatic. Eyes: Pupils: Pupils are equal, round, and reactive to light. Neck: Thyroid: No thyromegaly. Cardiovascular: Rate and Rhythm: Normal rate and regular rhythm. Heart sounds: Normal heart sounds. No murmur heard. Pulmonary: Effort: Pulmonary effort is normal. No respiratory distress. Breath sounds: Normal breath sounds. No wheezing, rhonchi or rales. Abdominal: General: Bowel sounds are normal. There is no distension. Palpations: Abdomen is soft. Tenderness: There is no abdominal tenderness. There is no guarding. Musculoskeletal: General: No tenderness. Normal range of motion. Cervical back: Normal range of motion and neck supple. Skin: General: Skin is warm and dry. Coloration: Skin is not pale. Findings: No erythema or rash. Neurological: General: No focal deficit present. Mental Status: She is alert and oriented to person, place, and time. Cranial Nerves: No cranial nerve deficit. Psychiatric: Mood and Affect: Mood normal. Behavior: Behavior normal. Urinalysis w/ Reflex Final Result CBC w/ Diff Final Result CMP Final Result EKG 12 LEAD Final Result Normal sinus rhythm Moderate voltage criteria for LVH, may be normal variant ( R in aVL , Zachary product ) Borderline ECG When compared with ECG of 08-FEB-2022 09:45, No significant change was found Confirmed by Antony Choudhury ([id number]) on 02/16/2022 11:07:40 AM EKG SCAN Final Result Hemoglobin A1C w/ Estimated Glucose Final Result Procedures Imaging Results None Labs Reviewed CMP (COMPREHENSIVE METABOLIC PANEL) - Abnormal; Notable for the following components: Result Value SODIUM 129 (*) CHLORIDE 95 (*) GLUCOSE 214 (*) BUN 25 (*) BUN/CREATININE RATIO 34 (*) All other components within normal limits URINALYSIS REFLEX IF INDICATED BY ABNORMAL RESULTS - Abnormal; Notable for the following components: WBC ESTERASE 25 /ul (*) PROTEIN, RANDOM URINE 15 mg/dL (*) WBC (Urine) 6-10 (*) BACTERIA, URINE Few (*) All other components within normal limits HEMOGLOBIN A1C W/ ESTIMATED GLUCOSE - Abnormal; Notable for the following components: HGB-A1C 6.7 (*) All other components within normal limits Narrative: HEMOGLOBIN A1C: DIABETIC PATIENTS: WELL-CONTROLLED: 6.2 - 7.0 INTERMEDIATE WELL-CONTROLLED: 7.0 - 9.0 POORLY-CONTROLLED: >9.0 CBC WITH AUTO DIFFERENTIAL - Abnormal; Notable for the following components: WBC 17.20 (*) NEUTROPHILS 88.7 (*) LYMPHOCYTES 7.6 (*) MONOCYTES 3.2 (*) ABSOLUTE NEUTROPHILS 15.26 (*) All other components within normal limits CULTURE, URINE COMPLETE BLOOD COUNT (CBC) WITH DIFF Narrative: The following orders were created for panel order CBC w/ Diff. Procedure Abnormality Status --------- ------ CBC with Auto Differential[[id number]] Abnormal Final result Please view results for these tests on the individual orders. MDM Coding Clinical Impression 1. COVID-19 2. Influenza A BP normalized without intervention in the ED. Patient was hydrated with 1L NS while in the ED. PCP follow up in 1-2 days. Return to ED for worsening sxs The patient remained stable throughout their ED [...] up. Cosigned by Sushil Justin DO at 03/07/2022 5:34 PM HAUL TRUCK DRIVER TRUCK DRIVER TRUCK DRIVER TRUCK DRIVER * Jarvis Alvarez - 02/15/2022 3:09 PM CST Pt arrived to ED via AFD with c/o high blood pressure with a headache. Pt states her home health nurse took her blood pressure and got a result of 150/110. Pt was recently diagnosed with covid and the flu and has a hx of hypertension. Cardiac protocol initiated, Barry SIERRA at bedside. TRUCK DRIVER * Wendy Mobley - 02/15/2022 3:04 PM CST Bed: ED06-01 Expected date: 02/15/22 Expected time: 2:59 PM Means of arrival: Ambulance ([facility]) Comments: 4A77 [facility] 51F HTN HEADACHE TRUCK DRIVER documented in this encounter Plan of Treatment Upcoming Encounters Date Type Department Care Team (Late st Contact Info) Description 03/27/2024 8:30 AM HAUL TRUCK DRIVER [facility] [address] [place] [address] Burt Eastman MD [address] [address] 03/27/2024 8:30 AM HAUL TRUCK DRIVER - 03/27/2024 9:00 AM HAUL TRUCK DRIVER [facility] [address] [place] [address] Burt Eastman MD [address] [address] COLONOSCOPY 04/09/2024 1:15 PM HAUL TRUCK DRIVER [facility] [place] [address] [place] [address] Baron Vergara MD [address] [place] [address] Scheduled Procedures Name Priority Associated Diagnoses Date/Ti me COLONOSCOPY HISTORY OF COLON POLYPS 03/27/2024 8:30 AM HAUL TRUCK DRIVER documented as of this encounter Procedures Procedure Name Priority Date/Time Associated Diagnosis Comments URINALYSIS REFLEX IF INDICATED BY ABNORMAL RESULTS STAT 02/15/2022 3:33 PM HAUL TRUCK DRIVER CULTURE, URINE STAT 02/15/2022 3:33 PM HAUL TRUCK DRIVER CBC WITH AUTO DIFFERENTIAL STAT 02/15/2022 3:17 PM HAUL TRUCK DRIVER CMP (COMPREHENSIVE METABOLIC PANEL) STAT 02/15/2022 3:17 PM HAUL TRUCK DRIVER COMPLETE BLOOD COUNT (CBC) WITH DIFF STAT 02/15/2022 3:17 PM HAUL TRUCK DRIVER EKG 12 LEAD STAT 02/15/2022 3:06 PM HAUL TRUCK DRIVER EKG SCAN 02/15/2022 12:00 AM HAUL TRUCK DRIVER HEMOGLOBIN A1C W/ ESTIMATED GLUCOSE STAT 02/13/2022 9:47 PM HAUL TRUCK DRIVER documented in this encounter Results * Culture, Urine (02/15/2022 3:33 PM HAUL TRUCK DRIVER) Pathologist [facility] CULTURE RESULTS MIXED GROWTH OF 3 OR MORE ORGANISMS, PROBABLE COLLECTION CONTAMINATION, SUGGEST REPEAT URINE CULTURE. 02/16/2022 4:02 PM HAUL TRUCK DRIVER [facility] Urine URINE SPECIMEN / Unknown Non-Phlebotomy Collection / Unknown 02/15/2022 3:33 PM HAUL TRUCK DRIVER 02/15/2022 3:45 PM HAUL TRUCK DRIVER us Mathew Batres PAC MICROBIOLOGY - GENER AL ORDERABLES Final Result [facility] [address] [place] [address], * (ABNORMAL) Urinalysis w/ Reflex (02/15/2022 3:33 PM HAUL TRUCK DRIVER) SPECIFIC GRAVITY 1.015 1.003 - 1.030 02/15/2022 4:04 PM [facility] URINE PH 8.0 5.0 - 9.0 02/15/2022 4:04 PM [facility] WBC ESTERASE 25 /ul(A) Negative 02/15/2022 4:04 PM [facility] NITRITE Negative Negative 02/15/2022 4:04 PM [facility] PROTEIN, RANDOM URINE 15 mg/dL(A) Negative 02/15/2022 4:04 PM [facility] URINE GLUCOSE, QUAL Negative Negative 02/15/2022 4:04 PM [facility] URINE KETONES Negative Negative 02/15/2022 4:04 PM [facility] UROBILINOGEN Normal Normal mg/dL 02/15/2022 4:04 PM [facility] URINE BLOOD Negative Negative dylan/ul 02/15/2022 4:04 PM [facility] URINALYSIS COLOR Yellow 02/16/20 4:04 PM [facility] URINALYSIS CLARITY Slightly Cloudy 02/15/2022 4:04 PM [facility] WBC (Urine) 6-10(A) Negative, 0-5 /hpf 02/15/2022 4:04 PM [facility] URINE RBC'S 0-2 Negative, 0-2 /hpf 02/15/2022 4:04 PM [facility] EPITHELIAL CELLS Moderate amount /lpf 02/15/2022 4:04 PM [facility] BACTERIA, URINE Few(A) Negative /hpf 02/15/2022 4:04 PM [facility] Urine URINE SPECIMEN / Unknown Non-Phlebotomy Collection / Unknown 02/15/2022 3:33 PM HAUL TRUCK DRIVER 02/15/2022 3:45 PM HAUL TRUCK DRIVER us Mathew Batres PAC URINE ORDERABLES Fin al Result [facility] [address] [place] [address] * (ABNORMAL) CBC with Auto Differential (02/15/2022 3:17 PM HAUL TRUCK DRIVER) [facility] WBC 17.20(H) 4.00 - 12.00 10(3)/mcL 02/15/2022 3:49 PM HAUL TRUCK DRIVER [facility] RBC 4.91 3.80 - 5.30 10(6)/mcL 02/15/2022 3:49 PM HAUL TRUCK DRIVER [facility] HEMOGLOBIN (HGB) 14.2 12.0 - 15.8 g/dL 02/15/2022 3:49 PM HAUL TRUCK DRIVER [facility] HEMATOCRIT (HCT) 44.7 36.0 - 47.0 % 02/15/2022 3:49 PM HAUL TRUCK DRIVER [facility] MCV 91.0 82.0 - 96.0 fL 02/15/2022 3:49 PM HAUL TRUCK DRIVER [facility] MCH 28.9 26.0 - 34.0 pg 02/15/2022 3:49 PM HAUL TRUCK DRIVER [facility] MCHC 31.8 31.0 - 36.0 g/dL 02/15/2022 3:49 PM HAUL TRUCK DRIVER [facility] PLATELET COUNT 224 140 - 440 10(3)/mcL 02/15/2022 3:49 PM [facility] RDW 13.4 11.8 - 15.5 % 02/15/2022 3:49 PM HAUL TRUCK DRIVER [facility] MPV 11.3 9.7 - 12.4 fL 02/15/2022 3:49 PM [facility] NEUTROPHILS 88.7(H) 47.0 - 73.0 % 02/15/2022 3:49 PM HAUL TRUCK DRIVER [facility] LYMPHOCYTES 7.6(L) 18.0 - 42.0 % 02/15/2022 3:49 PM HAUL TRUCK DRIVER [facility] MONOCYTES 3.2(L) 4.0 - 12.0 % 02/15/2022 3:49 PM [facility] EOSINOPHILS 0.2 0.0 - 5.0 % 02/15/2022 3:49 PM HAUL TRUCK DRIVER [facility] BASOPHILS 0.3 0.0 - 1.0 % 02/15/2022 3:49 PM HAUL TRUCK DRIVER [facility] ABSOLUTE NEUTROPHILS 15.26(H) 1.60 - 7.70 10(3)/[facility] 02/15/2022 3:49 PM HAUL TRUCK DRIVER [facility] ABSOLUTE LYMPHOCYTES 1.30 1.30 - 3.20 10(3)/[facility] 02/15/2022 3:49 PM HAUL TRUCK DRIVER [facility] ABSOLUTE MONOCYTES 0.55 0.20 - 1.00 10(3)/[facility] 02/15/2022 3:49 PM HAUL TRUCK DRIVER [facility] ABSOLUTE EOSINOPHIL 0.03 0.00 - 0.40 10(3)/[facility] 02/15/2022 3:49 PM [facility] ABSOLUTE BASOPHILS 0.06 0.00 - 0.10 10(3)/[facility] 02/15/2022 3:49 PM [facility] NRBC PER 100 WBC 0 02/16/20 3:49 PM [facility] Blood Venipuncture / Unknown 02/15/2022 3:17 PM HAUL TRUCK DRIVER 02/15/2022 3:45 PM HAUL TRUCK DRIVER us Mathew Batres PAC HEMATOLOGY ORDERABLE S Final Result [facility] [address] [place] [address] * (ABNORMAL) CMP (02/15/2022 3:17 PM HAUL TRUCK DRIVER) SODIUM 129(L) 136 - 144 mmol/L 02/15/2022 4:17 PM HAUL TRUCK DRIVER [facility] POTASSIUM 4.8 3.5 - 5.1 mmol/L 02/15/2022 4:17 PM [facility] CHLORIDE 95(L) 100 - 110 mmol/L 02/15/2022 4:17 PM HAUL TRUCK DRIVER [facility] CO2, VENOUS 22 22 - 32 mmol/L 02/15/2022 4:17 PM [facility] ANION GAP 16.8 8.0 - 20.0 mmol/L 02/15/2022 4:17 PM [facility] GLUCOSE 214(H) 70 - 99 mg/dL 02/15/2022 4:17 PM [facility] BUN 25(H) 6 - 20 mg/dL 02/15/2022 4:17 PM [facility] CREATININE, BLOOD 0.74 0.60 - 1.10 mg/dL 02/15/2022 4:17 PM [facility] BUN/CREATININE RATIO 34(H) 12 - 20 ratio 02/15/2022 4:17 PM [facility] TOTAL PROTEIN 7.3 6.0 - 8.3 g/dL 02/15/2022 4:17 PM [facility] ALBUMIN 3.8 3.5 - 5.2 g/dL 02/15/2022 4:17 PM [facility] Comment: The colormetric methods used for the determination of Albumin may lead to falsely elevated test results in patients suffering from renal failure or insufficiency due to interference with other proteins. A/G RATIO 1.1 1.0 - 2.0 02/15/2022 4:17 PM [facility] CALCIUM 10.3 8.9 - 10.3 mg/dL 02/15/2022 4:17 PM [facility] T BILI <0.3 <=1.2 mg/dL 02/15/2022 4:17 PM [facility] SGOT (AST) 15 <=32 U/L 02/15/2022 4:17 PM [facility] SGPT (ALT) 26 <=41 U/L 02/15/2022 4:17 PM [facility] ALKALINE PHOSPHATASE 78 35 - 105 U/L 02/15/2022 4:17 PM [facility] GFR, ESTIMATED >60 >=60 02/15/2022 4:17 PM [facility] Comment: Creatinine Clearance is the preferred criteria for selecting drug dose adjustments in renally impaired patients. ??The GFR is provided as additional pertinent clinical information. GFR is reported in mL/min/1.73 sq m. Calculation based on the Chronic Kidney Disease Epidemiology Collaboration (CKD- EPI) equation refit without adjustment for race. GFR, EST. >60 >=60 022 4:17 PM HAUL TRUCK DRIVER [facility] GFR, EST. NONAFRICAN >60 >=60 02/15/2022 4:17 PM HAUL TRUCK DRIVER [facility] Blood Venipuncture / Unknown 02/15/2022 3:17 PM HAUL TRUCK DRIVER 02/15/2022 3:45 PM HAUL TRUCK DRIVER Mathew Batres PAC CHEMISTRY ORDERABLES Final Result [facility] [address] [place] [address] * EKG 12 LEAD (02/15/2022 3:06 PM HAUL TRUCK DRIVER) Ventricular Rate 90 BPM EXTERNAL EKG Atrial Rate 90 BPM EXTERNAL EKG P-R Interval 118 ms EXTERNAL EKG QRS Duration 82 ms EXTERNAL EKG Q-T Duration 336 ms EXTERNAL EKG QTC CALCULATION 411 ms EXTERNAL EKG P [place] 10 degrees EXTERNAL EKG R [place] -16 degrees EXTERNAL EKG T [place] 14 degrees EXTERNAL EKG 02/15/2022 3:06 PM HAUL TRUCK DRIVER Impressions EXTERNAL EKG - 02/16/2022 11:07 AM HAUL TRUCK DRIVER Normal sinus rhythm Moderate voltage criteria for LVH, may be normal variant ( R in aVL , Zachary product ) Borderline ECG When compared with ECG of 08-FEB-2022 09:45, No significant change was found Confirmed by Antony Choudhury ([id number]) on 02/16/2022 11:07:40 AM Narrative Procedure Note Antony Carroll MD - 02/16/2022 IMPRESSION: Normal sinus rhythm Moderate voltage criteria for LVH, may be normal variant ( R in aVL ,[place] product ) Borderline ECG When compared with ECG of 08-FEB-2022 09:45, No significant change was found Confirmed by Antony Choudhury ([id number]) on 02/16/2022 11:07:40 AM us Sushil Justin DO IMG ECG ORDERABLES Radha l Result Performing Organization Address City/[facility]/ZIP Co de Phone Number EXTERNAL EKG * EKG SCAN (02/15/2022 12:00 AM HAUL TRUCK DRIVER) 02/15/2022 Provider Scan IMG ECG ORDERABLES Final Result Performing Organization Address [facility] de Phone Number SCAN * (ABNORMAL) Hemoglobin A1C w/ Estimated Glucose (02/13/2022 9:47 PM HAUL TRUCK DRIVER) HGB-A1C 6.7(H) 4.0 - 6.0 % 02/15/2022 3:58 PM HAUL TRUCK DRIVER [facility] Est Average Glucose 145.6 mg/dL 02/15/2022 3:58 PM HAUL TRUCK DRIVER [facility] Blood Venipuncture / Unknown 02/13/2022 9:47 PM HAUL TRUCK DRIVER 02/13/2022 9:53 PM HAUL TRUCK DRIVER Narrative [facility] - 02/15/2022 3:58 PM HAUL TRUCK DRIVER HEMOGLOBIN A1C: DIABETIC PATIENTS: WELL-CONTROLLED: ?? 6.2 - 7.0 INTERMEDIATE WELL-CONTROLLED: ??7.0 - 9.0 POORLY-CONTROLLED: ??>9.0 us Mathew Batres PAC CHEMISTRY ORDERABLES Final Result Performing Organization Address [facility] de Phone Number [facility] [address] [place] [address] documented in this encounter Visit Diagnoses Diagnosis COVID-19- Primary Influenza A Influenza with other respiratory manifestations documented in this encounter Administered Medications Inactive Administered Medications - up to 3 most recent administrations Medication Order MAR Action Action Date Dose Rate Site 0.9 % sodium chloride solution at 999 mL/hr, Intravenous, ONCE, 1 dose, On Mon02/15/22 at 1730 New Bag 02/15/2022 4:51 PM HAUL TRUCK DRIVER 999 mL/hr documented in this encounter Active and Recently Administered Medications Times are shown in HAUL TRUCK DRIVER. Scheduled Medication Order 02/13/2022 02/14/2022 02/15/2022 0.9 % sodium chloride solution (COMPLETED) at 999 mL/hr, Intravenous, ONCE, 1 dose, On Mon02/15/22 at 1730 [id number] (New Bag - Prov ider: Jarvis Alvarez)[id number] (Stopped - Provider: Jarvis Alvarez) documented in this encounter Additional Health Concerns Infection Onset Date Last Indicated Resolved Time Respiratory Rule-Out 02/08/2022 02/08/2022 023 12:16 AM HAUL TRUCK DRIVER COVID - 19 Confirmed 02/08/2022 02/08/2022 023 12:16 AM HAUL TRUCK DRIVER documented as of this encounter Care Teams Hr Leader Relationship Specialty Start Date End Date Daja Carballo MD [address] [place] [address] PCP - General Internal Medicine 03/13/15 documented as of this encounter
--- OUTSIDE RECORDS SUMMARY | 2024-03-03 19:28 | XMS_ITS | Encounter Summary ---
Author Organization [facility] Address [address] [place] [address] Phone Care Team Providers Care Operations Lieutenant Name Role Phone Daja Kern MD Primary Care Provider [phone] Reason for Visit * Auth/Cert (Routine) Specialty Diagnoses / Procedures Referred By Contac t Referred To Contact Referral ID Status Reason Start Date Expiration Date Visits Re quested Visits Authorized 1 1 Encounter Details Date Type Department Care Team (Late Contact Info) Description 02/17/2022 [facility] [address] [place] [address] Tea Sutherland, MARCOS TELEPHONE ENCOUNTER Social History Tobacco Use Types [...] to have Coronavirus/COVID-19? Yes 02/15/2022 3:14 PM KEG HEADER documented as of this encounter Plan of Treatment Upcoming Encounters Date Type Department Care Team (Late Contact Info) Description 03/27/2024 8:30 AM KEG HEADER [facility] [address] [place] [address] Burt Eastman MD [address] [address] 03/27/2024 8:30 AM KEG HEADER - 03/27/2024 9:00 AM KEG HEADER [facility] [address] [place] [address] Burt Eastman MD [address] [address] COLONOSCOPY 04/09/2024 1:15 PM KEG HEADER Office Visit [facility] - Pulmonology & Sleep Medicine [facility] [address] [place] [address] Baron Vergara MD [address] [place] [address] Scheduled Procedures Name Priority Associated Diagnoses Date/Ti me COLONOSCOPY HISTORY OF COLON POLYPS 03/27/2024 8:30 AM KEG HEADER documented as of this encounter Visit Diagnoses Not on filedocumented in this encounter Additional Health Concerns Infection Onset Date Last Indicated Resolved Time Respiratory Rule-Out 02/08/2022 02/08/2022 023 12:16 AM KEG HEADER COVID - 19 Confirmed 02/08/2022 02/08/2022 023 12:16 AM KEG HEADER documented as of this encounter Care Teams Operations Lieutenant Relationship Specialty Start Date End Date Daja Kern MD [address] [place] [address] PCP - General Internal Medicine 03/13/15 documented as of this encounter
--- OUTSIDE RECORDS SUMMARY | 2024-03-03 19:28 | XMS_ITS | Encounter Summary ---
Author Organization [facility] Address [address] [place] [address] Phone Care Team Providers Care Health Counselor Name Role Phone Daja Kern MD Primary Care Provider [phone] Reason for Referral * Radiology Services (Routine) - Closed Specialty Diagnoses / Procedures Referred By Contac t Referred To Contact Radiology Diagnoses Chronic cough Procedures XR CHEST 2 VIEWS Daja Kern MD [address] [place] [address] Phone: tel: fax: Referral ID Status Reason Start Date Expiration Date Visits Re quested Visits Authorized [id number] Closed 08/02/2021 1 1 Encounter Details Date Type Department Care Team (Late st Contact Info) Description 08/02/2021 Transcribe Orders [facility] Patient Access Admitting 1 [place] [address] Daja Kern MD [address] [place] [address] Chronic cough (Primary Dx) Social History Tobacco Use Types [...] st Contact Info) Description 03/27/2024 8:30 AM HEALTH CARE FACILITY ADMINISTRATOR [facility] [address] [place] [address] Burt Eastman MD [address] [address] 03/27/2024 8:30 AM HEALTH CARE FACILITY ADMINISTRATOR - 03/27/2024 9:00 AM HEALTH CARE FACILITY ADMINISTRATOR [facility] [address] [place] [address] Burt Eastman MD [address] [address] COLONOSCOPY 04/09/2024 1:15 PM HEALTH CARE FACILITY ADMINISTRATOR Office Visit [facility] - Pulmonology & Sleep Medicine [facility] [address] [place] [address] Baron Vergara MD [address] [place] [address] Scheduled Procedures Name Priority Associated Diagnoses Date/Ti me COLONOSCOPY HISTORY OF COLON POLYPS 03/27/2024 8:30 AM HEALTH CARE FACILITY ADMINISTRATOR documented as of this encounter Results * XR CHEST 2 VIEWS (08/02/2021 3:07 PM CDT) Anatomical Region Laterality Modality Chest N/A Digital Radiogra phy 08/02/2021 5:11 PM CDT Impressions 08/02/2021 5:14 PM CDT IMPRESSION: ?? No acute findings. Narrative 08/02/2021 5:14 PM CDT EXAM DESCRIPTION: ?? XR CHEST 2 VIEWS REASON FOR STUDY: ?? Chronic cough . ??Productive cough with shortness of breath and chest pain for 1 month, history of asthma and hypertension TECHNIQUE: ?? Frontal ??and lateral radiographic views of the chest acquired. COMPARISON: ?? Chest and abdomen radiographs 02/21/2021 FINDINGS: LUNGS/PLEURA: ?? No focal consolidation or pneumothorax. No pleural effusion. HEART/MEDIASTINUM: ?? Heart size is normal. Normal mediastinal and hilar contours. HARDWARE/LINES/TUBES: ?? None. BONES: ?? No acute findings. OTHER: ?? No other significant finding. THIS IS AN ELECTRONICALLY VERIFIED FINAL REPORT 08/02/2021 5:11 PM - Electronically signed by ??Faraz Owens M.D., JR: D: ??08/02/2021 5:11 PM T: ??08/02/2021 5:11 PM Report ID: [id number] Reading Location: ??[id number] Procedure Note Faraz Owens MD - 08/02/2021 EXAM DESCRIPTION: XR CHEST 2 VIEWS REASON FOR STUDY: Chronic cough . Productive cough with shortness of breath and chest pain for 1 month, history of asthma and hypertension TECHNIQUE: Frontal and lateral radiographic views of the chest acquired. COMPARISON: Chest and abdomen radiographs 02/21/2021 FINDINGS: LUNGS/PLEURA: No focal consolidation or pneumothorax. No pleural effusion. HEART/MEDIASTINUM: Heart size is normal. Normal mediastinal and hilar contours. HARDWARE/LINES/TUBES: None. BONES: No acute findings. OTHER: No other significant finding. THIS IS AN ELECTRONICALLY VERIFIED FINAL REPORT 08/02/2021 5:11 PM - Electronically signed by Faraz Owens M.D., JR: Report ID: [id number] Reading Location: [id number] IMPRESSION: No acute findings. Daja Kern MD IMG DIAGNOSTIC ORDERABLES Fin al Result documented in this encounter Visit Diagnoses Diagnosis Chronic cough- Primary Cough Chronic cough Cough documented in this encounter Care Teams Health Counselor Relationship Specialty Start Date End Date Daja Kern MD [address] [place] [id number] PCP - General Internal Medicine 03/13/15 documented as of this encounter
--- OUTSIDE RECORDS SUMMARY | 2024-03-03 19:28 | XMS_ITS | Encounter Summary ---
Author Organization [facility] Address [address] [place] [address] Phone Care Team Providers Care Packing Line Worker Name Role Phone Daja Kern MD Primary Care Provider [phone] Reason for Referral * Radiology Services (Routine) - Closed Specialty Diagnoses / Procedures Referred By Contac t Referred To Contact Radiology Diagnoses Spondylosis without myelopathy or radiculopathy, lumbar region Procedures XR LUMBAR SPINE 2 OR 3 VIEWS Laxmi Houston APRN, CNP [address] [place] [address] Phone: tel: fax: Referral ID Status Reason Start Date Expiration Date Visits Re quested Visits Authorized [id number] Closed 09/03/2021 1 1 * Radiology Services (Routine) - Closed Specialty Diagnoses / Procedures Referred By Contac t Referred To Contact Radiology Diagnoses Sacroiliitis, not elsewhere classified (HCC) Procedures XR SACROILIAC JOINTS, COMPLETE Laxmi Houston APRN, CNP [address] [place] [address] Phone: tel: fax: Referral ID Status Reason Start Date Expiration Date Visits Re quested Visits Authorized [id number] Closed 09/03/2021 1 1 Reason for Visit * Radiology Services (Routine) - Closed Specialty Diagnoses / Procedures Referred By Contac t Referred To Contact Radiology Diagnoses Sacroiliitis, not elsewhere classified (HCC) Procedures XR SACROILIAC JOINTS, COMPLETE Laxmi Houston APRN, FIELD CROP I FARMWORKER [address] [place] [address] Phone: tel: fax: Referral ID Status Reason Start Date Expiration Date Visits Re quested Visits Authorized [id number] Closed 09/03/2021 1 1 Encounter Details Date Type Department Care Team (Latest Contact Info) Description 09/03/2021 1:00 PM CDT - 09/03/2021 11:59 PM CDT Hospital Encounter [facility] Diagnostic Radiology [address] [place] [address] Laxmi Houston APRN, FIELD CROP I FARMWORKER [address] [place] [address] Discharge Disposition: Discharged to home or Selfcare [...] suspected to have Coronavirus/COVID-19? No / Unsure 09/03/2021 12:19 PM CDT documented as of this encounter [...] mouth 2 times daily as needed. 3 metoprolol Succinate (TOPROL-XL) 25 MG TABLET SR 24 HR Take by mouth daily. 01/31/2021 2 ondansetron (ZOFRAN-ODT) 4 MG TABLET DISPERSIBLE Take [...] st Contact Info) Description 03/27/2024 8:30 AM DYE AND CHEMICAL COORDINATOR Hospital Encounter [facility] Gi Lab Periop [address] [place] [address] Burt Eastman MD [address] [address] 03/27/2024 8:30 AM DYE AND CHEMICAL COORDINATOR - 03/27/2024 9:00 AM DYE AND CHEMICAL COORDINATOR [facility] [address] [place] [address] Burt Eastman MD [address] [address] COLONOSCOPY 04/09/2024 1:15 PM DYE AND CHEMICAL COORDINATOR Office Visit [facility] - Pulmonology & [facility] Medicine [facility] [address] [place] [address] Baron Vergara MD [address] [place] [address] Scheduled Procedures Name Priority Associated Diagnoses Date/Ti me COLONOSCOPY HISTORY OF COLON POLYPS 03/27/2024 8:30 AM DYE AND CHEMICAL COORDINATOR documented as of this encounter Procedures Procedure Name Priority Date/Time Associated Diagnosis Comments XR LUMBAR SPINE 2 OR 3 VIEWS Routine 09/03/2021 12:42 PM CDT Spondylosis without myelopathy or radiculopathy, lumbar region XR SACROILIAC JOINTS, COMPLETE Routine 09/03/2021 12:40 PM CDT Sacroiliitis, not elsewhere classified (HCC) documented in this encounter Results * XR [...] AM T: ??09/06/2021 7:25 AM Report ID: [id number] Reading Location: ??[id number] Procedure Note Lisandro Zafar MD - 09/06/2021 [...] Lisandro Zafar M.D. AG: ALONSO Report ID: [id number] Reading Location: [id number] IMPRESSION: 1. Grade 1 anterolisthesis of L5-S1 with severe degenerative disc disease at that level. Laxmi Houston ARTIFICIAL STONE APPLICATOR, FIELD CROP I FARMWORKER IMG DIAGNOSTIC ORDERA BLES Final Result * [...] AM T: ??09/06/2021 7:26 AM Report ID: [id number] Reading Location: ??[id number] Procedure Note Lisandro Zafar MD - 09/06/2021 [...] Lisandro Zafar M.D. AG: ALONSO Report ID: [id number] Reading Location: [id number] IMPRESSION: 1. Mild sacroiliac joint osteoarthritis. Laxmi Houston APRN, DAVID IMG DIAGNOSTIC ORDERA BLES Final Result documented in this encounter Visit Diagnoses Diagnosis Sacroiliitis, not elsewhere classified (HCC) Sacroiliitis, not elsewhere classified Spondylosis without myelopathy or radiculopathy, lumbar region documented in this encounter Care Teams Packing Line Worker Relationship Specialty Start Date End Date Daja Kern MD [address] [place] [address] PCP - General Internal Medicine 03/13/15 documented as of this encounter
--- OUTSIDE RECORDS SUMMARY | 2024-03-03 19:28 | XMS_ITS | Encounter Summary ---
Author Organization [facility] [employer] [facility] Care Team Providers Care Value Stream Leader Name Role Phone Daja Kern MD Primary Care Provider [phone] Encounter Details Date Type Department Care Team (Latest Contact Info) Description 02/08/2022 Travel Social History Tobacco Use Types Packs/Day [...] Coronavirus/COVID-19? No / Unsure 02/08/2022 9:35 AM LATEX RIBBON MACHINE OPERATOR documented as of this encounter Plan of Treatment Upcoming Encounters Date Type Department Care Team (Late st Contact Info) Description 03/27/2024 8:30 AM LATEX RIBBON MACHINE OPERATOR [facility] [address] [place] [address] Burt Eastman MD 2 [facility] [address] [address] 03/27/2024 8:30 AM LATEX RIBBON MACHINE OPERATOR - 03/27/2024 9:00 AM LATEX RIBBON MACHINE OPERATOR [facility] 1 [place] [address] Burt Eastman MD 2 [facility] [address] [address] [address] COLONOSCOPY 04/09/2024 1:15 PM LATEX RIBBON MACHINE OPERATOR [facility] [address] [place] [address] Baron Vergara MD [address] [place] [address] Scheduled Procedures Name Priority Associated Diagnoses Date/Ti me COLONOSCOPY HISTORY OF COLON POLYPS 03/27/2024 8:30 AM LATEX RIBBON MACHINE OPERATOR documented as of this encounter Visit Diagnoses Not on filedocumented in this encounter Additional Health Concerns Infection Onset Date Last Indicated Resolved Time COVID - 19 02/08/2022 02/08/2022 02/08/2022 10:2 9 AM LATEX RIBBON MACHINE OPERATOR Respiratory Rule-Out 02/08/2022 02/08/2022 023 12:16 AM LATEX RIBBON MACHINE OPERATOR Influenza 02/08/2022 02/08/2022 02/15/2022 12:1 9 AM LATEX RIBBON MACHINE OPERATOR COVID - 19 Confirmed 02/08/2022 02/08/2022 023 12:16 AM LATEX RIBBON MACHINE OPERATOR documented as of this encounter Care Teams Value Stream Leader Relationship Specialty Start Date End Date Daja Kern MD [address] [place] [address] PCP - General Internal Medicine 03/13/15 documented as of this encounter
--- OUTSIDE RECORDS SUMMARY | 2024-03-03 19:28 | XMS_ITS | Encounter Summary ---
Author Organization [facility] Address [address] [place] [address] Phone Care Team Providers Care Field Court Researcher Name Role Phone Daja Kern MD Primary Care Provider [phone] Reason for Visit * Auth/Cert (Routine) Specialty Diagnoses / Procedures Referred By Contac t Referred To Contact Referral ID Status Reason Start Date Expiration Date Visits Re quested Visits Authorized 1 1 Encounter Details Date Type Department Care Team (Late Contact Info) Description 02/13/2022 [facility] [address] [place] [address] Capri Larson RN MS SN-CLINICAL SUPPORT/TRIAGE Social History Tobacco Use Types Packs/Day Years [...] Coronavirus/COVID-19? No / Unsure 02/08/2022 9:35 AM DRILL GRINDER documented as of this encounter Plan of Treatment Upcoming Encounters Date Type Department Care Team (Late Contact Info) Description 03/27/2024 8:30 AM DRILL GRINDER [facility] [address] [place] [address] Burt Eastman MD [address] [address] 03/27/2024 8:30 AM DRILL GRINDER - 03/27/2024 9:00 AM DRILL GRINDER [facility] [address] [place] [address] Burt Eastman MD [address] [address] COLONOSCOPY 04/09/2024 1:15 PM DRILL GRINDER Office Visit [facility] - Pulmonology & Sleep Medicine [facility] [address] [place] [address] Baron Vergara MD [address] [place] [address] Scheduled Procedures Name Priority Associated Diagnoses Date/Ti me COLONOSCOPY HISTORY OF COLON POLYPS 03/27/2024 8:30 AM DRILL GRINDER documented as of this encounter Visit Diagnoses Not on filedocumented in this encounter Additional Health Concerns Infection Onset Date Last Indicated Resolved Time Respiratory Rule-Out 02/08/2022 02/08/2022 023 12:16 AM DRILL GRINDER Influenza 02/08/2022 02/08/2022 02/15/2022 12:1 9 AM DRILL GRINDER COVID - 19 Confirmed 02/08/2022 02/08/2022 023 12:16 AM DRILL GRINDER documented as of this encounter Home Health Visit - Care Plan Visit Details Visit Type -SN-CLINICAL SUPP ORT/TRIAGE Discipline -Retirement Problems Problem Description Start Date Status Goals Interve ntions HH/[facility] COVID-19 Disciplines: SN, PT, OT, PRESSURE SEALER AND TESTER, PRODUCTION RECORDER, RT 02/11/2022 Active 1 goal linked to scheduled/documen arnulfo intervention 1 goal intervention scheduled/document ed in this visit GENERAL ORDERS Disciplines: Retirement General Orders 02/11/2022 Active 1 goal linked to scheduled/documen arnulfo intervention 1 goal intervention scheduled/document ed in this visit Goals Goal Associated Problem Outcome Goal Met? Visit Notes COVID-19 Description: Patient/caregivers will verbalize understanding of COVID-19 and symptoms to report and home management strategies by date 02/26/22 /[facility] COVID-19 No SN General Description: After assessing the [...] COVID-19 precautions. Problem:/[facility] COVID-19 Goal:COVID-19 Scheduled General Nursing Plan of Care (Order Only) [...] Social Work Focus: ACP, depression, financial resources [employer] to provide: not ordered Past Medical History: Lumbar pars defect [M43.06], Lumbar facet arthropathy [M47.816] 08/09/2017, GERD (gastroesophageal reflux disease) [K21.9], Hypertension [I10], Hyperlipidemia [E78.5], Bipolar disorder ([facility]) [F31.9], Depression [F32.A], Hypothyroid [E03.9], Sepsis ([facility]) [A41.9] 10/03/2018, Enterocolitis [K52.9] 10/03/2018, Abnormal CT scan [R93.89] 10/03/2018, Cocaine use [F14.90] 10/03/2018, SBO (small bowel obstruction) ([facility]) [K56.609] 02/20/2021, Morbid obesity with BMI of 45.0-49.9, adult ([facility]) [E66.01, Z68.42] 02/20/2021 Other contributing issues: no [...] identified goals. Problem:SN GENERAL ORDERS Goal:SN General Scheduled documented in this encounter Care Teams Field Court Researcher Relationship Specialty Start Date End Date Daja Kern MD [address] [place] [address] PCP - General Internal Medicine 03/13/15 documented as of this encounter
--- OUTSIDE RECORDS SUMMARY | 2024-03-03 19:28 | XMS_ITS | Encounter Summary ---
Author Organization [facility] Address [address] [place] [address] Phone Care Team Providers Care Brass Pourer Name Role Phone Daja Kern MD Primary Care Provider Reason for Visit * Reason Onset Date Comments Care Management 09/09/2021 Post Hospital Di jen f/u Call Encounter Details Date Type Department Care Team (Late st Contact Info) Description 09/09/2021 Post Discharge Follow-up [facility] Laundromat Worker Management [address] [place], [place] [id number] Dianna Headley, RN [place] Social History Tobacco Use Types Packs/Day Years [...] encounter Miscellaneous Notes * Telephone Encounter - Perlita Olivarez RN - 09/10/2021 2:13 PM CDT Transition of care-post discharge follow up call attempt #2 Background: Discharged on 09/08 from [facility] after 2 day stay with a primary diagnosis of Small bowel obstruction. Unable to reach Sent post discharge letter to pt margarito * Telephone Encounter - Dianna Headley RN - 09/09/2021 9:59 AM CDT Transition of Care Post Discharge - Follow up call Background: Discharged on 09/08 from [facility] after 2 day stay with a primary diagnosis of Small bowel obstruction. Alona Kemp is a 50 y.o. female with a pmhx of diabetes type 2, HTN, hypothyroid, HLD, GERD, depression, anxiety, bipolar, and hx of cocaine use who presented to the ED with c/o increased abdominalpain and distension. She noted the pain started yesterday morning with 8/[address] was notable for moderate dilatation of the proximal and mid small bowel with multiple air-fluid levels identified suggesting at least partial small-bowel obstruction. General surgery was consulted, per recommendations, NGT was placed and was NPO through the night. Her follow up small bowel obstruction films show that contrast is moving into the colon. General surgery okay'd the removal NGT and starting a clear l iquid diet. Her abdomen is distended but active bowel sounds present and no pain to palpation. She was admitted to the hospital for the same problem about one month ago, education provided on how herweight, decreased mobility, and cocaine use are all factors into why she has had recurrent small bowel obstructions. ?? Client's Current Condition: Call placed to Alona. No answer. Left message for call back. Will attemptagain at a later time. documented in this encounter Plan of Treatment Upcoming Encounters Date Type Department Care Team (Late st Contact Info) Description 03/27/2024 8:30 AM MORTGAGE PROTECTION SPECIALIST Hospital Encounter [facility] Gi Lab Periop [address] [place] [address] Burt Eastman MD [address] [address] 03/27/2024 8:30 AM MORTGAGE PROTECTION SPECIALIST - 03/27/2024 9:00 AM MORTGAGE PROTECTION SPECIALIST [facility] [address] [place] [address] Burt Eastman MD [address] [address] COLONOSCOPY 04/09/2024 1:15 PM MORTGAGE PROTECTION SPECIALIST [facility] [place] [address] [place] [address] Baron Vergara MD [address] [place] [address] Scheduled Procedures Name Priority Associated Diagnoses Date/Ti me COLONOSCOPY HISTORY OF COLON POLYPS 03/27/2024 8:30 AM MORTGAGE PROTECTION SPECIALIST documented as of this encounter Visit Diagnoses Not on filedocumented in this encounter Care Teams Brass Pourer Relationship Specialty Start Date End Date Daja Kern MD [address] [place] [address] PCP - General Internal Medicine 03/13/15 documented as of this encounter
--- OUTSIDE RECORDS SUMMARY | 2024-03-03 19:28 | XMS_ITS | Encounter Summary ---
Author Organization [facility] Address [address] [place] [address] Phone Care Team Providers Care Quality Assurance Monitor Chassis Name Role Phone Daja Kern MD Primary Care Provider [phone] Reason for Visit * Auth/Cert (Routine) Specialty Diagnoses / Procedures Referred By Contac t Referred To Contact Referral ID Status Reason Start Date Expiration Date Visits Re quested Visits Authorized 1 1 Encounter Details Date Type Department Care Team (Late st Contact Info) Description 02/18/2022 11:00 AM CANDLE MAKER [facility] [address] [place] [address] Tami Healy, EXERCISER HORSE DISEASE MGT PHONE Social History Tobacco Use [...] to have Coronavirus/COVID-19? Yes 02/15/2022 3:14 PM CANDLE MAKER documented as of this encounter Plan of Treatment Upcoming Encounters Date Type Department Care Team (Late st Contact Info) Description 03/27/2024 8:30 AM CANDLE MAKER [facility] [address] [place] [address] Burt Eastman MD [address] [address] 03/27/2024 8:30 AM CANDLE MAKER - 03/27/2024 9:00 AM CANDLE MAKER [facility] [address] [place] [address] Burt Eastman MD [address] [address] COLONOSCOPY 04/09/2024 1:15 PM CANDLE MAKER [facility] #[address] [place] [address] Baron Vergara MD #[address] [place] [address] Scheduled Procedures Name Priority Associated Diagnoses Date/Ti me COLONOSCOPY HISTORY OF COLON POLYPS 03/27/2024 8:30 AM CANDLE MAKER documented as of this encounter Visit Diagnoses Not on filedocumented in this encounter Additional Health Concerns Infection Onset Date Last Indicated Resolved Time Respiratory Rule-Out 02/08/2022 02/08/2022 023 12:16 AM CANDLE MAKER COVID - 19 Confirmed 02/08/2022 02/08/2022 023 12:16 AM CANDLE MAKER documented as of this encounter Care Teams Quality Assurance Monitor Chassis Relationship Specialty Start Date End Date Daja Kern MD [address] [place] [address] PCP - General Internal Medicine 03/13/15 documented as of this encounter
--- OUTSIDE RECORDS SUMMARY | 2024-03-03 19:28 | XMS_ITS | Encounter Summary ---
Author Organization [facility] Address [address] [place] [address] Phone Care Team Providers Care Weight Yardage Checker Name Role Phone Daja Carballo MD Primary Care Provider [phone] Reason for Visit * Reason Comments Cough * Auth/Cert (Routine) Specialty Diagnoses / Procedures Referred By Contac t Referred To Contact Diagnoses Respiratory failure (HCC) Influenza A Acute respiratory failure with hypoxia (HCC) COVID-19 Alicia Romero MD [address] [place] [address] Phone: tel: fax: Referral ID Status Reason Start Date Expiration Date Visits Re quested Visits Authorized [id number] 1 1 Encounter Details Date Type Department Care Team (Late st Contact Info) Description 02/08/2022 9:33 AM PHYSICAL MEDICINE PHYSICIAN - 02/10/2022 3:09 PM PHYSICAL MEDICINE PHYSICIAN Emergency [facility] [address] [place] [address] John Prabhakar MD [address] [place] [address] Bridgette Faulkner, DESULPHURING OPERATOR, WHEELCHAIR DRIVER [address] [place] [address] Helen Bernstein MD [address] [place] [address] Acute respiratory failure with hypoxia (HCC) Discharge [...] Coronavirus/COVID-19? No / Unsure 02/08/2022 9:35 AM PHYSICAL MEDICINE PHYSICIAN documented as of this encounter Last Filed Vital Signs Vital Sign Reading Time Taken Comments Blood Pressure 149/86 02/10/2022 5:44 AM PHYSICAL MEDICINE PHYSICIAN Pulse 98 02/10/2022 7:43 AM PHYSICAL MEDICINE PHYSICIAN Temperature 36.2 ??C (97.1 ??F) 02/10/2022 5:44 AM CS T Respiratory Rate 20 02/10/2022 7:43 AM PHYSICAL MEDICINE PHYSICIAN Oxygen Saturation 99% 02/10/2022 7:43 AM PHYSICAL MEDICINE PHYSICIAN Inhaled Oxygen Concentration - - Weight 117.9 kg (260 lb) 02/08/2022 12:45 PM PHYSICAL MEDICINE PHYSICIAN Height 157.5 cm (5' 2 ) 02/08/2022 12:45 PM PHYSICAL MEDICINE PHYSICIAN Body Mass Index 47.55 02/08/2022 12:45 PM PHYSICAL MEDICINE PHYSICIAN documented in this encounter Discharge Summaries * Bridgette Faulkner APRN, CNP - 02/10/2022 1:46 PM CST Images from the original note were not included. [facility] DISCHARGE SUMMARY Name: Alona Kemp Age: 51 y.o. : 1970 Attending Physician: Bridgette Faulkner APRN, CNP Admission Date/Time: 02/08/2022 Discharge Date: 02/10/2022 Primary Care Physician: DAJA CARBALLO MD Discharging Provider: Bridgette Faulkner APRN, WHEELCHAIR DRIVER INSTRUCTIONS FOR PHYSICIANS ON FOLLOW UP AFTER DISCHARGE: Follow-up Information Follow up With Specialties Details Why Contact Info Daja Carballo MD Internal Medicine Schedule an appointment as soon as possible for a visit Patient is to make own follow up appt. per office staff. [address] [place] [address] [facility] [address] [facility] [address] [place] [address] HOSPITAL COURSE: Acute respiratory failure with hypoxia -SpO2 upon ER arrival=??89%.??Has since resolved.?? -Not on home O2 -CXR??negative?? -Decadron PO -Albuterol inhaler -Titrate O2 to keep O2 sats >92% -Supportive treatment 02/09 weaned to ROOM air 02/10 Walk test performed and did not require oxygen. Discharged on RA. ?? COVID-19??and influenza A viral infection? -Tested positive on??admission?? -Decadron PO -Albuterol by inhaler -Pt is out of window for Tamiflu?? -Contact/airborne isolation -Supportive care with PRN O2 02/09 weaned to RA, started on Tamiflu 75mg bid 02/10 to complete a 10 day course of Decadron and 5 day course of Tamiflu ?? Diabetes mellitus type 2 -Jgetsab=515 -Diet controlled?? -JjgX1J=4.1 on 12/16/21 -Diabetic diet ?? HTN -Stable, last YY=212/83 -Continue home dose medications -Monitor hemodynamic status ?? Hyperlipidemia -Continue home dose statin ?? GERD -Continue home dose PPI ?? Hypothyroidism -Continue home dose levothyroxine ?? Depression/Anxiety/bipolar?? -Stable -Continue home dose medication ?? Morbid obesity -BMI=??47.55 -Pt would benefit from weight loss through diet and exercise?? Pt stable to DC to home with home health. ?? Discharge Instructions: Discharge Condition: improved Disposition: Home with home health Diet: Regular Diet Activity: activity as tolerated Discharge Diagnoses: 1. Acute hypoxic respiratory failure 2. covid 19 viral illness 3. Influenza A 4. Dm type 2 5. HTN/HLD 6. GERD 7. Hypothyroid 8. Depression/anxiety/bipolar 9. Morbid obesity Present on Admission: ??? (Resolved) Acute respiratory failure with hypoxia (HCC) ??? Bipolar disorder (HCC) ??? Anxiety ??? Depression ??? GERD (gastroesophageal reflux disease) ??? Hypothyroid ??? Hypertension ??? Hyperlipidemia ??? Morbid obesity with BMI of 45.0-49.9, adult (HCC) ??? Type 2 diabetes mellitus, without long-term current use of insulin (HCC) ??? Influenza A H1N1 infection ??? COVID-19 virus infection Admitting Diagnoses: SOB HOSPITAL COURSE: Alona Kemp was admitted 02/08/2022 with Acute respiratory failure with hypoxia (HCC) . Surgeries performed during stay: * No surgery found * Consults: Exam Day of Discharge: Temp Av.5 ??F (36.4 ??C) Min: 97.1 ??F (36.2 ??C) Max: 97.8 ??F (36.6 ??C) BP Min: 146/82 Max: 149/86 Pulse Av.8 Min: 79 Max: 98 Heart Rate (Monitor) Av Min: 84 Max: 84 Resp Av.6 Min: 18 Max: 20 SpO2 Av.6 % Min: 96 % Max: 100 % O2 Flow Rate (l/min): 2 l/min (placed on room air) Body mass index is 47.55 kg/m??. Exam: General: well developed well nourished, alert, oriented and in no acute distress Skin: normal coloration and turgor, no rashes HEENT: normocephalic, atraumatic. Pupils equal, round and reactive to light. Extraocular movements intact. Oronasopharynx pink and moist, no lesion or exudate. Neck: Supple. No JVD, lymphadenopathy thyromegaly or carotid bruits auscultated CVS: RRR, S1/S2 normal, no murmurs, gallops or rubs Chest: clear to auscultation, no wheezes, rales or rhonchi, symmetric air entry and normal respiratory effort Abdominal: soft, nontender, nondistended. Positive Bowel sounds, no organomegaly appreciated Extremities: no edema, no clubbing or cyanosis Neuro: CN 2-12 grossly intact, normal speech, no focal findings or movement disorder noted. Gait not tested Lab / Imaging Review: Lab Results Component Value Date WBC 5.74 02/10/2022 HEMOGLOBIN 12.5 02/10/2022 HEMATOCRIT 40.2 02/10/2022 PLATELETCNT 151 02/10/2022 MCV 93.3 02/10/2022 Lab Results Component Value Date SODIUM 138 02/09/2022 POTASSIUM 4.3 02/09/2022 CHLORIDE 98 (L) 02/09/2022 CO2VEN 29 02/09/2022 ANIONGAP 15.3 02/09/2022 GLUCOSE 173 (H) 02/09/2022 BUN 20 02/09/2022 CREATININE 0.82 02/09/2022 BCRATIO8 24 (H) 02/09/2022 TOTALPROTEIN 6.6 02/09/2022 ALBUMIN 3.8 02/09/2022 CALCIUM 9.4 02/09/2022 TBIL <0.3 02/09/2022 SGOTAST 12 02/09/2022 SGPTALT 11 02/09/2022 ALKALINEPHO 93 02/09/2022 GFRNA >60 02/09/2022 GFRA >60 02/09/2022 Lab Results Component Value Date GLUCOSEPOCT 174 (H) 02/08/2022 Lab Results Component Value Date INR 1.0 02/09/2022 PTP 12.8 02/09/2022 Lab Results Component Value Date HGBA1C 6.1 (H) 12/16/2021 Lab Results Component Value Date HMGGDLLH43 251 08/25/2015 Lab Results Component Value Date TROPONINI <0.300 02/08/2022 Lab Results Component Value Date FERRITIN 18 08/25/2015 No components found for: FOLATE No results found for: PHARTERIAL, PO2ART, WLS8HAR, CO2ART, O2ART Lab Results Component Value Date LACTICA 0.6 02/22/2021 XR CHEST SINGLE VIEW PORTABLE Result Date: 02/08/2022 IMPRESSION: No acute pulmonary abnormality. DISCHARGE MEDICATION LIST: Medication List START taking these medications albuterol 108 (90 Base) MCG/ACT Aers Commonly known as: PROVENTIL HFA, VENTOLIN HFA take 2 Puffs by inhalation every 6 hours as needed for Wheezing or Cough. benzonatate 100 MG Caps Commonly known as: TESSALON Take 1 Capsule by mouth 3 times daily as needed for Cough for up to 10 days. dexamethasone 6 MG Tabs Take 1 Tablet by mouth daily after breakfast for 7 days. Start taking on: February 11, 2022 oseltamivir 75 MG Caps Commonly known as: TAMIFLU Take 1 Capsule by mouth 2 times daily for 4 days. Indications: influenza CONTINUE taking these medications Aripiprazole 20 MG Tabs baclofen 20 MG Tabs Commonly known as: LIORESAL DULoxetine 20 MG Cpep Commonly known as: CYMBALTA irbesartan 150 MG Tabs Commonly known as: AVAPRO levothyroxine 50 MCG Tabs Commonly known as: SYNTHROID omeprazole 40 MG Cap-del-rel Commonly known as: PriLOSEC Take 1 Capsule by mouth daily. pregabalin 75 MG Caps Commonly known as: LYRICA * sertraline 100 MG Tabs Commonly known as: ZOLOFT * sertraline 50 MG Tabs Commonly known as: ZOLOFT traZODone 50 MG Tabs Commonly known as: DESYREL * This list has 2 medication(s) that are the same as other medications prescribed for you. Read thedirections carefully, and ask your doctor or other care provider to review them with you. STOP taking these medications ondansetron 4 MG Tab-disperse Commonly known as: Zofran ODT simvastatin 10 MG Tabs Commonly known as: ZOCOR triamterene-hydrochlorothiazide 37.5-25 MG Tabs Commonly known as: MAXZIDE Trulicity 1.5 MG/0.5ML Sopn Generic drug: Dulaglutide Where to Get Your Medications These medications were sent to [id number] - [place], [place] - [facility] [address] AT [place] [address], [place] [address] ?? albuterol 108 (90 Base) MCG/ACT Aers ?? benzonatate 100 MG Caps ?? dexamethasone 6 MG Tabs ?? oseltamivir 75 MG Caps I have spent time coordinating care for this hospital discharge: Greater than 30 minutes spent in coordinating care Thank you very much for allowing the [facility] Adult Hospitalist Service to participate in the care of this patient. If you have any questions, please don't hesitate to call. Signed: Bridgette Faulkner APRN, CNP, 02/10/2022, 1:46 PM PHYSICAL MEDICINE PHYSICIAN Cosigned by Helen Bernstein MD at 02/11/2022 12:43 AM PHYSICAL MEDICINE PHYSICIAN ICAL MEDICINE PHYSICIAN ICAL MEDICINE PHYSICIAN documented in this encounter Discharge Instructions * Discharge Instructions* Alona Mccord - 02/10/2022 12:39 PM PHYSICAL MEDICINE PHYSICIAN You have chosen [facility] for the [place] [facility] [place], physical therapy, occupational therapy services your doctor has ordered. The agency will call you to schedule initial visit prior to your hospital discharge or within a business day of your hospital discharge. If you have not been contacted to schedule your initial visit or need to contact the agency, pleasecall [facility] [phone] ICAL MEDICINE PHYSICIAN * Attachments The following attachments cannot be sent through Care Everywhere. * Influenza Adult Ozeo-zy-Pqar (Cypriot) * Acute Respiratory Failure Adult (Cypriot) * 10 Things You Can Do to Manage Your COVID-19 Symptoms at Home - [facility] (09/11/2020) (Cypriot) documented in this encounter Medications at Time [...] for 7 days. 7 Tablet 02/11/2022 2 oseltamivir (TAMIFLU) 75 MG CapsuleIndication s:influenza Take 1 Capsule by mouth 2 times daily for 4 days. Indications: influenza 8 Capsule 02/10/2022 2 pregabalin (LYRICA) 75 MG Capsule Take 75 mg by mouth 2 times daily. 3 sertraline (ZOLOFT) 100 MG Tablet Take 150 mg by mouth daily. Take 100mg by mouth daily 3 sertraline (ZOLOFT) 50 MG Tablet Take 50 mg by mouth daily. 09/02/2021 3 documented as of this encounter Progress Notes * Bridgette Faulkner, DESULPHURING OPERATOR, WHEELCHAIR DRIVER - 02/09/2022 8:41 AM CST [facility] Alona Kmep is a 51 y.o. female at Hospital Day (LOS: 23 hours) HPI: Patient on room air, eating and drinking okay. Subjective: This patient is being seen for chief c/o of Acute respiratory failure with hypoxia (HCC) Patient seen and examined, notes were reviewed. No Fever, Not in respiratory distress. Objective: Patient Vitals for the past 24 hrs: BP Temp Pulse Heart Rate (Monitor) Resp SpO2 Height Weight Temp src 02/09/22 0745 -- -- -- (!) 104 16 94 % -- -- -- 02/09/22 0508 142/83 97.2 ??F (36.2 ??C) 89 -- 20 100 % -- -- Tympanic 02/09/22 0058 -- -- 105 -- -- 94 % -- -- -- 02/08/22 2129 131/78 98 ??F (36.7 ??C) 94 -- 20 96 % -- -- Tympanic 02/08/22 1859 -- -- 100 -- 18 99 % -- -- -- 02/08/22 1400 120/63 97.8 ??F (36.6 ??C) (!) 111 -- 16 94 % -- -- Tympanic 02/08/22 1335 -- -- -- (!) 110 18 92 % -- -- -- 02/08/22 1315 -- -- -- -- -- 97 % -- -- -- 02/08/22 1245 135/83 98.2 ??F (36.8 ??C) 102 -- 18 97 % 5' 2 (1.575 m) 260 lb (117.9 kg) Tympanic 02/08/22 1127 -- -- -- -- -- 95 % -- -- -- 02/08/22 1114 110/76 -- 99 100 20 (!) 89 % -- -- -- 02/08/22 1059 -- -- 101 (!) 102 29 99 % -- -- -- 02/08/22 1030 110/76 -- 107 (!) 108 21 95 % -- -- -- 02/08/22 1015 109/70 -- 107 (!) 109 24 97 % -- -- -- 02/08/22 1002 -- -- -- (!) 111 21 99 % -- -- -- 02/08/22 0945 122/85 -- 109 (!) 105 24 100 % -- -- -- 02/08/22 0940 (!) 118/91 -- -- -- -- -- -- -- -- 02/08/22 0937 -- 98 ??F (36.7 ??C) 109 (!) 109 18 98 % 5' 2 (1.575 m) 260 lb (117.9 kg) Tympanic Temp (48hrs), Av.8 ??F (36.6 ??C), Min:97.2 ??F (36.2 ??C), Max:98.2 ??F (36.8 ??C) I&O: No intake/output data recorded. Weights: Wt Readings from Last 3 Encounters: 02/08/22 260 lb (117.9 kg) 12/16/21 265 lb (120.2 kg) 09/07/21 264 lb 2 oz (119.8 kg) No intake or output data in the 24 hours ending 02/09/22 0841 General: well developed well nourished, alert, oriented and in no acute distress Skin: normal coloration and turgor, no rashes HEENT: normocephalic, atraumatic. Pupils equal, round and reactive to light. Extraocular movements intact. Oronasopharynx pink and moist, no lesion or exudate. Neck: Supple. No JVD, lymphadenopathy thyromegaly or carotid bruits auscultated CVS: RRR, S1/S2 normal, no murmurs, gallops or rubs Chest: scattered wheezing, otherwise, diminished Abdominal: soft, nontender, nondistended. Positive Bowel sounds, no organomegaly appreciated Extremities: no edema, no clubbing or cyanosis Neuro: alert and orient x 3. Moves all extremities well. No neurological deficits noted. Gait not tested Active Scheduled and PRN meds albuterol, 2 Puff, TID ARIPiprazole, 20 mg, Daily dexamethasone, 6 mg, QAM PC DULoxetine, 60 mg, Nightly enoxaparin, 40 mg, Q12H JUAN levothyroxine, 50 mcg, QAM AC losartan, 50 mg, Daily pantoprazole, 40 mg, Daily pregabalin, 75 mg, BID sertraline, 150 mg, Daily simvastatin, 10 mg, Nightly traZODone, 100 mg, Nightly acetaminophen, 650 mg, Q4H PRN Or acetaminophen, 650 mg, Q4H PRN albuterol, 2 Puff, Q6H PRN aluminum & magnesium hydroxide-simethicone, 20 mL, Q6H PRN baclofen, 20 mg, BID PRN benzonatate, 100 mg, TID PRN calcium carbonate, 1,000 mg, Q8H PRN magnesium hydroxide, 30 mL, Daily PRN melatonin, 6 mg, Nightly PRN ondansetron, 4 mg, Q6H PRN Or ondansetron, 4 mg, Q6H PRN polyethylene glycol, 17 g, BID PRN senna, 1 Tablet, BID PRN Lab Review and radiology Recent Labs Units 02/09/22 0432 02/08/22 0944 SODIUM mmol/L 136 137 POTASSIUM mmol/L 4.0 4.2 CHLORIDE mmol/L 99* 100 CO2VEN mmol/L 28 25 GLUCOSE mg/dL 154* 127* ANIONGAP mmol/L 13.0 16.2 BUN mg/dL 17 13 CREATININE mg/dL 0.63 0.61 CALCIUM mg/dL 9.7 9.7 Recent Labs Units 02/09/22 04302/08/22 1052 WBC 10(3)/mcL 4.87 6.04 HEMOGLOBIN g/dL 13.7 14.0 HEMATOCRIT % 43.9 43.2 PLATELETCNT 10(3)/mcL 171 161 MCV fL 93.2 90.8 Lab Results Component Value Date TROPONINI <0.300 02/08/2022 Recent Labs Units 02/08/22 1310 GLUCOSEPOCT mg/dL 174* No results for input(s): INR, PTP in the last 72 hours. XR CHEST SINGLE VIEW PORTABLE Result Date: 02/08/2022 IMPRESSION: No acute pulmonary abnormality. Assessment : Overall condition: stable Active Hospital Problems Diagnosis Date Noted ??? Acute respiratory failure with hypoxia ([facility]) 02/08/2022 ??? Influenza A H1N1 infection 02/08/2022 ??? COVID-19 virus infection 02/08/2022 ??? Anxiety 08/03/2021 ??? Type 2 diabetes mellitus, without long-term current use of insulin ([facility]) 08/03/2021 ??? Morbid obesity with BMI of 45.0-49.9, adult ([facility]) 02/20/2021 ??? Bipolar disorder ([facility]) ??? Depression ??? GERD (gastroesophageal reflux disease) ??? Hypothyroid ??? Hypertension ??? Hyperlipidemia Resolved Hospital Problems No resolved problems to display. Labs/chart/meds and notes reviewed. PLAN: Acute respiratory failure with hypoxia -SpO2 upon ER arrival= 89%. Has since resolved. -Not on home O2 -CXR negative -Decadron PO -Albuterol inhaler -Titrate O2 to keep O2 sats >92% -Supportive treatment 02/09 weaned to ROOM air ?? COVID-19 and influenza A viral infection -Tested positive on admission -Decadron PO -Albuterol by inhaler -Pt is out of window for Tamiflu -Contact/airborne isolation -Supportive care with PRN O2 02/09 weaned to RA, started on Tamiflu 75mg bid ?? Diabetes mellitus type 2 -Buwcujc=965 -Diet controlled -HqmH7D=6.1 on 12/16/21 -Diabetic diet ?? HTN -Stable, last UV=047/83 -Continue home dose medications -Monitor hemodynamic status ?? Hyperlipidemia -Continue home dose statin ?? GERD -Continue home dose PPI ?? Hypothyroidism -Continue home dose levothyroxine ?? Depression/Anxiety/bipolar -Stable -Continue home dose medication ?? Morbid obesity -BMI= 47.55 -Pt would benefit from weight loss through diet and exercise ?? Dispo: poss DC to home tomorrow. Code status: full code Advance Care Planning: Aggregate face to face time discussing end of life advance care planning with patient and/or family and/or Power of Face Painter approximately 17 minutes. Discussed CPR/Intubation/Treatment Goals/Quality of life/Intensity of Care. Patient desires: Full Code DVT Prophylaxis: lovenox Bridgette Faulkner NP [facility] Cosigned by Helen Bernstein MD at 02/09/2022 9:18 PM PHYSICAL MEDICINE PHYSICIAN ICAL MEDICINE PHYSICIAN ICAL MEDICINE PHYSICIAN documented in this encounter H&P Notes * Eleanor Whittaker APRN, CNP - 02/08/2022 11:51 AM CST Images from the original note were not included. HOSPITALIST ADMISSION HISTORY & PHYSICAL EXAM PATIENT NAME: Alona Kemp, : 1970, MR#[id number] CHIEF COMPLAINT Cough HPI Alona Kemp is a 51 y.o. female with a pmhx of morbid obesity, depression, anxiety, bipolar disorder, hypothyroid, GERD, hyperlipidemia, hypertension, and diabetes type 2 who presented to the ED with c/o cough and congestion x1 week. Patient reports associated fever, chills, diaphoresis, body aches, fatigue, headache, chest pain, shortness breath nausea, diarrhea, weakness, and lightheadedness.Patient reports the chest pain is an intermittent burning sensation with coughing in her upper chest. On admission, patient tested positive for influenza a and COVID-19. Patient had 1 episode of hypoxia with SpO2 89%. Patient started on steroids, and albuterol inhalers and admitted for further management of COVID-19 a infection. HOME MEDICATIONS: Prior to Admission Medications Prescriptions Last Dose Informant Patient Reported? Taking? Aripiprazole 20 MG Tablet 02/07/2022 at 0900 Yes Yes Sig: Take 20 mg by mouth daily. DULoxetine (CYMBALTA) [address] Particles 02/07/2022 at 1900 Yes Yes Sig: Take 60 mg by mouth nightly. Trulicity 1.5 MG/0.5ML Solution Pen-injector Not Taking Yes No Si.5 mg by Subcutaneous route once a week. On sundays Patient not taking: Reported on 02/08/2022 baclofen (LIORESAL) 20 MG Tablet 02/01/2022 Yes Yes Sig: Take 20 mg by mouth 2 times daily as needed. irbesartan (AVAPRO) 150 MG Tablet 02/07/2022 at 0900 Yes Yes Sig: Take 150 mg by mouth daily. levothyroxine (SYNTHROID) 50 MCG Tablet 02/07/2022 at 0900 Pharmacy Yes Yes Sig: Take 50 mcg by mouth daily. Indications: Underactive Thyroid omeprazole (PriLOSEC) 40 MG CAPSULE DELAYED RELEASE 02/07/2022 at 0900 No Yes Sig: Take 1 Capsule by mouth daily. ondansetron (Zofran ODT) 4 MG TABLET DISPERSIBLE 01/09/2022 No Yes Sig: Take 1 Tablet by mouth every 8 hours as needed for Nausea - 1st line. pregabalin (LYRICA) 75 MG Capsule 02/07/2022 at 1900 Yes Yes Sig: Take 75 mg by mouth 2 times daily. sertraline (ZOLOFT) 100 MG Tablet 02/07/2022 at 1900 Yes Yes Sig: Take 150 mg by mouth daily. sertraline (ZOLOFT) 50 MG Tablet 02/07/2022 at 1900 Yes Yes Sig: Take 50 mg by mouth daily. simvastatin (ZOCOR) 10 MG Tablet Not Taking Yes No Sig: Take 10 mg by mouth every evening. Patient not taking: Reported on 02/08/2022 traZODone (DESYREL) 50 MG Tablet 02/07/2022 at 1900 Yes Yes Sig: Take 100 mg by mouth nightly. triamterene-hydrochlorothiazide (MAXZIDE) 37.5-25 MG Tablet Not Taking Yes No Sig: Take 1 Tab by mouth daily. Patient not taking: Reported on 02/08/2022 Facility-Administered Medications: None ALLERGIES: Allergies Description Type Start Date End Date Comment Verified Assistant Education Director Risperidone Intolerance 09-Aug-2017 Severity: High Reactions: Other (see Comments) Comment: Violentand agitated. Jarvis Hopkins PAC (Physician Business Development Manager) Sulfa Antibiotics Allergy 01-Sep-2015 Severity: Medium Reactions: Sandra Quinn RN Topiramate Intolerance 09-Aug-2017 Severity: High Reactions: Other (see Comments) Comment: Difficulty with speech and word finding. Jarvis Hopkins PAC (Physician Business Development Manager) Ziprasidone Hcl Unknown 09-Aug-2017 Severity: High Reactions: Other (see Comments) Comment: Abnormal mouth movements Jarvis Hopkins PAC (Physician Business Development Manager) REVIEW OF SYSTEMS: Review of Systems Constitutional: Positive for chills, diaphoresis, fever and malaise/fatigue. HENT: Positive for congestion. Eyes: Negative for blurred vision and double vision. Respiratory: Positive for cough, sputum production, shortness of breath and wheezing. Cardiovascular: Positive for chest pain. Negative for leg swelling. Gastrointestinal: Positive for diarrhea and nausea. Negative for abdominal pain, constipation and vomiting. Genitourinary: Negative for dysuria, frequency and urgency. Musculoskeletal: Positive for myalgias. Negative for falls. Neurological: Positive for dizziness, weakness and headaches. Negative for tingling, sensory changeand loss of consciousness. PAST MEDICAL HISTORY She has a past medical history of Adenomatous colon polyp, Anxiety, Bipolar disorder (HCC), Cocaineabuse (HCC), DDD (degenerative disc disease), lumbar, Depression, GERD (gastroesophageal reflux disease), HLD (hyperlipidemia), HTN (hypertension), Hypothyroid, IBS (irritable bowel syndrome), Morbidobesity (HCC), NAFLD (nonalcoholic fatty liver disease), Nephrocalcinosis, KWABENA (obstructive sleep apnea), SBO (small bowel obstruction) ([facility]) (09/2018), and Vitamin D deficiency. PAST SURGICAL HISTORY: has a past surgical history that includes Section (1994); Cholecystectomy (2004); EGD (2012?); Colonoscopy; [employer] Tooth Extraction (1991); Colonoscopy (N/A, 11/16/2018); and [...] tobacco. She reports current drug use. Drug: Cocaine. She reports that she does not drink alcohol. PHYSICAL EXAM : VITALS: BP 135/83 Pulse 102 Temp 98.2 ??F (36.8 ??C) (Tympanic) Resp 18 Ht 5' 2 (1.575 m) Wt 260 lb (117.9 kg) LMP 11/12/2019 SpO2 97% BMI 47.55 kg/m?? Temp (24hrs), Av.1 ??F (36.7 ??C), Min:98 ??F (36.7 ??C), Max:98.2 ??F (36.8 ??C) Weight: Wt Readings from Last 1 Encounters: 02/08/22 260 lb (117.9 kg) Body mass index is 47.55 kg/m??. EXAM: Physical Exam Vitals and nursing note reviewed. Constitutional: Appearance: Normal appearance. Comments: Adult female sitting on side of bed eating lunch tray in no acute distress HENT: Head: Normocephalic and atraumatic. Eyes: General: Lids are normal. Conjunctiva/sclera: Conjunctivae normal. Neck: Trachea: Trachea normal. Cardiovascular: Rate and Rhythm: Normal rate and regular rhythm. Pulses: Normal pulses. Heart sounds: Normal heart sounds. Pulmonary: Effort: Pulmonary effort is normal. Breath sounds: Examination of the right-upper field reveals wheezing. Examination of the left-upperfield reveals wheezing. Examination of the right- lower field reveals decreased breath sounds. Examination of the left-lower field reveals wheezing. Decreased breath sounds and wheezing present. Abdominal: General: Bowel sounds are normal. Palpations: Abdomen is soft. Tenderness: There is no abdominal tenderness. Musculoskeletal: General: Normal range of motion. Cervical back: Normal range of motion. Skin: General: Skin is warm and dry. Neurological: Mental Status: She is alert and oriented to person, place, and time. Motor: Motor function is intact. Psychiatric: Mood and Affect: Mood normal. Affect is flat. Cognition and Memory: Memory normal. Judgment: Judgment normal. DATA REVIEW : XR CHEST SINGLE VIEW PORTABLE Result Date: 02/08/2022 IMPRESSION: No acute pulmonary abnormality. EKG: ST, rate 106 CBC: Lab Results Component Value Date WBC 6.04 02/08/2022 RBC 4.76 02/08/2022 HEMOGLOBIN 14.0 02/08/2022 HEMATOCRIT 43.2 02/08/2022 PLATELETCNT 161 02/08/2022 CMP: Lab Results Component Value Date SODIUM 137 02/08/2022 POTASSIUM 4.2 02/08/2022 CHLORIDE 100 02/08/2022 CO2VEN 25 02/08/2022 ANIONGAP 16.2 02/08/2022 GLUCOSE 127 (H) 02/08/2022 BUN 13 02/08/2022 CREATININE 0.61 02/08/2022 BCRATIO8 21 (H) 02/08/2022 TOTALPROTEIN 7.3 02/08/2022 ALBUMIN 4.0 02/08/2022 CALCIUM 9.7 02/08/2022 TBIL 0.3 02/08/2022 SGPTALT 13 02/08/2022 ALKALINEPHO 100 02/08/2022 GFRNA >60 02/08/2022 GFRA >60 02/08/2022 Cardiac markers: Lab Results Component Value Date TROPONINI <0.300 02/08/2022 Outside reports reviewed: ER records, radiology reports, lab reports, xray reports, historical medical records. ASSESSMENT: Active Hospital Problems Diagnosis Date Noted ??? Acute respiratory failure with hypoxia (HCC) 02/08/2022 ??? Influenza A H1N1 infection 02/08/2022 ??? COVID-19 virus infection 02/08/2022 ??? Anxiety 08/03/2021 ??? Type 2 diabetes mellitus, without long-term current use of insulin (HCC) 08/03/2021 ??? Morbid obesity with BMI of 45.0-49.9, adult ([facility]) 02/20/2021 ??? Bipolar disorder (HCC) ??? Depression ??? GERD (gastroesophageal reflux disease) ??? Hypothyroid ??? Hypertension ??? Hyperlipidemia Resolved Hospital Problems No resolved problems to display. PLAN: Acute respiratory failure with hypoxia -SpO2 upon ER arrival= 89%. Has since resolved. -Not on home O2 -CXR negative -Decadron PO -Albuterol inhaler -Titrate O2 to keep O2 sats >92% -Supportive treatment COVID-19 and influenza A viral infection -Tested positive on admission -Decadron PO -Albuterol by inhaler -Pt is out of window for Tamiflu -Contact/airborne isolation -Supportive care with PRN O2 Diabetes mellitus -Type 2 -Edcviul=371 -Diet controlled -VaxA4A=4.1 on 12/16/21 -Diabetic diet HTN -Stable, last JT=772/83 -Continue home dose medications -Monitor hemodynamic status Hyperlipidemia -Continue home dose statin GERD -Continue home dose PPI Hypothyroidism -Continue home dose levothyroxine Depression/Anxiety/bipolar -Stable -Continue home dose medication Morbid obesity -BMI= 47.55 -Pt would benefit from weight loss through diet and exercise Home meds to be resumed as appropriate. Other changes to meds to be made based on progress during hospitalization. Code Status: CPR-Full Treatment DVT Prophylaxis: Sequential Compression Devices and Lovenox 1mg/kg every 12 hours Consult with: None Advance Care Planning: Aggregate face to face time discussing end of life advance care planning with patient 16 minutes. Discussed CPR/Intubation/Treatment Goals/Quality of life/Intensity of Care. Patient desires: CPR-Full Treatment Eleanor Whittaker APRN, DAVID 02/08/2022 3:25 PM PHYSICAL MEDICINE PHYSICIAN Primary Care Physician: DAJA CARBALLO MD Cosigned by Helen Bernstein MD at 02/11/2022 12:40 AM PHYSICAL MEDICINE PHYSICIAN ICAL MEDICINE PHYSICIAN ICAL MEDICINE PHYSICIAN ICAL MEDICINE PHYSICIAN documented in this encounter ED Notes * Sharri Rdz RN - 02/08/2022 11:58 AM CST Pt is being transferred to room 237 per tech. Belongings being sent with patient. No changes in condition. VS and condition stable at time of transfer to floor. ICAL MEDICINE PHYSICIAN * Sharri Rdz RN - 02/08/2022 11:30 AM CST Pt medicated per provider orders. Pt educated on intended effects and side effects of medication and verbalized understanding, able to provide teach back of education. ICAL MEDICINE PHYSICIAN * Sharri Rdz RN - 02/08/2022 11:20 AM CST SpO2 did improve to 95% on room air. No supplemental oxygen needed at this time. ICAL MEDICINE PHYSICIAN * John Prabhakar MD - 02/08/2022 11:17 AM CST Chief Complaint Patient presents with ??? Cough Patient is a very pleasant 51-year-old female with past medical history of GERD, dyslipidemia, hypertension, IBS, bipolar disorder, obstructive sleep apnea, asthma who presents with complaint of congestion, cough and shortness of breath that has been ongoing for the last week. Patient reports progressively worsening symptoms and it got significantly worse today to where she could no longer tolerate it so she came to emergency department. She denies any chest pain, abdominal pain, reports nauseabut no vomiting. No urinary symptoms. No other complaints. Current Facility-Administered Medications Medication Dose Route Frequency Provider Last Rate Last Admin ??? ondansetron (ZOFRAN) injection 4 mg 4 mg Intravenous Once John Prabhakar MD ??? [START ON 02/09/2022] Remdesivir 100 mg in 0.9 % sodium chloride 270 mL Total Volume IVPB 100 mg Intravenous Q24H John Prabhakar MD ??? Remdesivir 200 mg in 0.9 % sodium chloride 290 mL Total Volume IVPB 200 mg Intravenous Once John Prabhakar MD Current Outpatient Medications Medication Sig Dispense [...] Laterality Date ??? SECTION 1994 ??? CHOLECYSTECTOMY 2004 laparoscopic ??? COLONOSCOPY [facility] (Does not remember the ) ??? COLONOSCOPY N/A 11/16/2018 Procedure: COLONOSCOPY - POLYPS, BIOPSIES; Surgeon: Damian Gallardo DO; Location: [facility]; Service: Gastroenterology ??? EGD 2012? [facility] ??? UPPER GASTROINTESTINAL ENDOSCOPY N/A 02/06/2019 Procedure: EGD, SMALL BOWEL BIOSY, GASTRIC POLYP, SAMANTHA TEST; Surgeon: Damian Gallardo DO; Location: [facility]; Service: Gastroenterology ??? WISDOM [...] History Narrative ??? Not on file BP 110/76 Pulse 99 Temp 98 ??F (36.7 ??C) (Tympanic) Resp 20 Ht 5' 2 (1.575 m) Wt 260 lb(117.9 kg) LMP 11/12/2019 SpO2 95% BMI 47.55 kg/m?? Review of Systems Constitutional: Positive for chills, diaphoresis and fatigue. HENT: Positive for congestion and rhinorrhea. Respiratory: Positive for cough, shortness of breath and wheezing. Gastrointestinal: Positive for nausea. Negative for diarrhea and vomiting. Genitourinary: Negative. Skin: Negative. All other systems reviewed and are negative. Physical Exam Vitals and nursing note reviewed. Constitutional: General: She is not in acute distress. Appearance: Normal appearance. She is well-developed. She is ill-appearing. She is not diaphoretic. HENT: Head: Normocephalic and atraumatic. Right Ear: External ear normal. Left Ear: External ear normal. Nose: Nose normal. Eyes: Extraocular Movements: Extraocular movements intact. Conjunctiva/sclera: Conjunctivae normal. Pupils: Pupils are equal, round, and reactive to light. Neck: Trachea: No tracheal deviation. Cardiovascular: Rate and Rhythm: Normal rate and regular rhythm. Heart sounds: Normal heart sounds. No murmur heard. Pulmonary: Effort: Pulmonary effort is normal. No respiratory distress. Breath sounds: Wheezing present. No rales. Abdominal: Tenderness: There is no abdominal tenderness. There is no guarding or rebound. Musculoskeletal: General: Normal range of motion. Cervical back: Normal range of motion. Skin: General: Skin is warm. Neurological: General: No focal deficit present. Mental Status: She is alert and oriented to person, place, and time. Psychiatric: Mood and Affect: Mood normal. Procedures Imaging Results XR CHEST SINGLE VIEW PORTABLE (Final result) Result time 02/08/22 10:55:13 Final result by Yessenia May DO Jo-Ann (02/08/22 10:55:13) Impression: IMPRESSION: No acute pulmonary abnormality. Narrative: EXAM DESCRIPTION: XR CHEST SINGLE VIEW PORTABLE REASON FOR STUDY: SOB x today. Patient states coughing up green sputum x 3 days. HX: Asthma, HTN TECHNIQUE: One radiographic view of the chest acquired. COMPARISON: Chest radiograph February 20, 2021 through August 02, 2021 FINDINGS: LUNGS/PLEURA: No pleural effusion, airspace consolidation, or pneumothorax. HEART/MEDIASTINUM: Cardiomediastinal silhouette is unremarkable. HARDWARE/LINES/TUBES: None. BONES: No acute findings. OTHER: No other significant finding. THIS IS AN ELECTRONICALLY VERIFIED FINAL REPORT 02/08/2022 10:52 AM - Electronically signed by Claudia Casas D.O. AC: FELIX Report ID: [id number] Reading Location: [place] [address] Labs Reviewed SARS-COV-2 BY MOLECULAR - Abnormal; Notable for the following components: Result Value SARSCOV2 DETECTED (*) All other components within normal limits Narrative: This test has been authorized by [...] information for Clinicians can be found at: https://www.fda.gov/media/271674/download Additional information for Patients can be found at: https://www.fda.gov/media/878520/download CMP (COMPREHENSIVE METABOLIC PANEL) - Abnormal; Notable for the following components: GLUCOSE 127 (*) BUN/CREATININE RATIO 21 (*) All other components within normal limits POCT INFLUENZA A & B - Abnormal; Notable for the following components: POC INFLU A Positive Group A (*) All other components within normal limits TROPONIN I (TRP I) - Normal COMPLETE BLOOD COUNT (CBC) WITH DIFF Narrative: The following orders were created for panel order CBC w/ Diff. Procedure Abnormality Status --------- ------ CBC with Auto Differential[[id number]] Final result Please view results for these tests on the individual orders. EXTRA TUBES Narrative: The following orders were created for panel order Extra Tubes. Procedure Abnormality Status --------- ------ Blue Top Tube[[id number]] In process Gold Top Tube[[id number]] In process Please view results for these tests on the individual orders. EXTRA TUBES Narrative: The following orders were created for panel order Extra Tubes. Procedure Abnormality Status --------- ------ Lavender Top Tube[[id number]] In process MINMARS ESQUIVEL HEPARIN/S...[[id number]] In process Please view results for these tests on the individual orders. CBC WITH AUTO DIFFERENTIAL BLUE TOP TUBE GOLD TOP TUBE LAVENDER TOP TUBE MINT GREENMARS HEPARIN/SST TOP TUBE MDM Coding Clinical Impression 1. COVID-19 2. Influenza A 3. Acute respiratory failure with hypoxia (HCC) ED Course as of 02/08/22 1134 Tue Feb 08, 2022 1057 XR CHEST SINGLE VIEW PORTABLE IMPRESSION: No acute pulmonary abnormality. [DK] 1120 Patient is mostly staying around 90% O2 sats but does drop to 89 intermittently at rest. She will be admitted for observation and further management. [DK] ED Course User Index [DK] John Prabhakar MD ICAL MEDICINE PHYSICIAN * Sharri Rdz RN - 02/08/2022 11:15 AM CST SpO2 dropped to 89% on room air while resting on stretcher. ICAL MEDICINE PHYSICIAN * Sharri Rdz RN - 02/08/2022 11:08 AM CST SpO2 maintained above 95% while marching in place. ICAL MEDICINE PHYSICIAN * Sharri Rdz RN - 02/08/2022 10:22 AM CST Pt medicated per provider orders. Pt educated on intended effects and side effects of medication and verbalized understanding, able to provide teach back of education. ICAL MEDICINE PHYSICIAN * Sharri Rdz RN - 02/08/2022 9:[address] Prabhakar at bedside for patient assessment. ICAL MEDICINE PHYSICIAN * Pari Delgado RN - 02/08/2022 9:38 AM CST Patient arrives to ed from home via [facility] for productive cough and fever for three days.Productive cough with green sputum reported. Patient called ems for sob starting today. Hx of asthma. Denies flu/covid exposures. Vss. Patient has hx of drug abuse and admits to using crack yesterday. ICAL MEDICINE PHYSICIAN * Melissa Monique - 02/08/2022 9:33 AM CST Bed: [facility] Expected date: 02/08/22 Expected time: 9:31 AM Means of arrival: Ambulance ([facility]) Comments: 1342 51f sob cough ICAL MEDICINE PHYSICIAN documented in this encounter Miscellaneous Notes * Interdisciplinary - Derrek Nowak RN - 02/10/2022 3:09 PM CST Patient has been given discharge instructions and is able to provide teach back of education including use of incentive spirometer. Patient verbalized understanding of hand outs on flu, covid, and respiratory failure. Patient verbalized calling with any questions or concerns. Patient was taken downby wheelchair with all of her belongings to leave by family car. ICAL MEDICINE PHYSICIAN * Plan of Care - Derrek Nowak RN - 02/10/2022 2:30 PM CST Problem: Infection Goal: Absence of Infection Signs and Symptoms Outcome: Outcome Achieved Problem: Adult Inpatient Plan of Care Goal: Plan of Care Review Outcome: Outcome Achieved Goal: Patient-Specific Goal (Individualized) Outcome: Outcome Achieved Goal: Absence of Hospital-Acquired Illness or Injury Outcome: Outcome Achieved Goal: Optimal Comfort and Wellbeing Outcome: Outcome Achieved Goal: Readiness for Transition of Care Outcome: Outcome Achieved Problem: Fall Injury Risk Goal: Absence of Fall and Fall-Related Injury Outcome: Outcome Achieved ICAL MEDICINE PHYSICIAN * Aleida - Milagro Hedrick RN - 02/10/2022 1:23 PM CST Case Management Discharge Readiness Note Alona's readmission risk level (if calculated) is: 3-Medium High Patient Class: Inpatient Consecutive Inpatient Midnights 1 Actual day(s) of hospital stay (compare to working DRG): 2 Discharge: Final home discharge arrangements: home with Home Health Mode of transportation at discharge:: Family car Additional Information regarding DC Plan: Plan is for patient to discharge home today with [facility] via family care. Patient is not requiring oxygen and denies any additional discharge planning needs. Discharge Plan Notification/ Verification 1. Patient's Phone numbers: [phone] (home) 2. Patient's preferred discharge phone number for follow up appointments, etc: (if different from above): N/A 3. Information for bedside nurse to call report and fax PACT Document in Sticky Note?: Not applicable - no external home care agencies or hemodialysis 4. Nursing notified: YES AGUILA Carrera 5. Patient/ Decision Maker and family notified: Alona IM Letter Documentation, if applicable N/A - Payor is not Medicare Decision Maker / Caregiver Information Medical Decision Maker Assessment: Patient is medical decision-maker ICAL MEDICINE PHYSICIAN * Aleida - Alona Mccord - 02/10/2022 12:42 PM CST Metal Riveter - Transition Arrangements Coordinated Note - Transition Specialists do not coordinate all transitions or aspects of transitions- CONFIRM PATIENT READINESS WITH ACCOUNTING TECHNICIAN PRIOR TO DISCHARGE Straightener And Aligner notified: yes, notified PREMA Humphrey at the following time 1240 via in person. Additional Details of Discharge Plan: DC home via family car with [facility] Home Health - coordination complete with [facility] (Home Health Agency) Updates for Alona???s discharge sent to agencies and agency personnel notified: yes, notified [facility] at the following time 1242 via Epic IB. Home Agency added to/ verified on patient's [facility] Care Team? Agency does not have a Direct Messaging Digital Address Agency is [facility] Follow-Up Appointment Information: Readmission risk level (if calculated) is: 3-Medium High (Note: TS makes the PRIMARY Hospital Follow Up appointment for Medium-High, High Risk and Heart Failure patients ONLY) ???The following role is responsible for scheduling this patient's hospital follow up appointment: PATIENT. Called Dr Hernandez office and was told by Katharine that the pt needs to call and make the appointment herself. PREMA Humphrey is aware ICAL MEDICINE PHYSICIAN * Interdisciplinary - Alona Mccord - 02/10/2022 12:41 PM CST Metal Riveter Coordination Note SUMMARY - Metal Riveter currently working the potential transition plan(s): ??? 02/09/2022 @ 2:06 PM PHYSICAL MEDICINE PHYSICIAN ([facility], TS) Home Health [[facility]] and Follow Up Appointment (See detail within the referral type(s) below for information on what is needed to complete coordination Note - the Transition Specialists do not coordinate all transition types - please direct all question regarding hospital transition to the Straightener And Aligner) Readmission risk level (if calculated) is: 3-Medium High Primary Care Provider: PCP: DAJA CARBALLO MD Primary Medical Coverage: [facility] [place] Medicaid Secondary Medical Coverage: N/A Hospital Follow-Up appointment(s) scheduling status: ??? The following role is responsible for scheduling this patient's hospital follow up appointment:Called Dr Hernandez office and was told by Katharine that the pt needs to call and make the appointment herself. Informed PREMA Jara in person. Home Health Referral Status: coordination complete Referral Type: New Provider who will sign on-going Home Health Plan of Care: PCP: DAJA CARBALLO MD Home Health Services Ne[facility], physical therapy, occupational therapy Needed Information / Documentation to complete Home Health coordination: ??? None [facility] - ACCEPTED - pending orders [facility] ??? 02/10/2022 @ 12:40 PM PHYSICAL MEDICINE PHYSICIAN ([facility], TS) Pt is ready for discharge. Informed [facility] via Epic IB. Pt will transport via family car. Pending IP Consult to Home Health. Secure chat to Dr Bridgette Faulkner requesting order placement. PREMA Humphrey included. ??? 02/09/2022 @ 2:07 PM PHYSICAL MEDICINE PHYSICIAN ([facility], TS) Set referral to [facility] via [employer] In Basket. ICAL MEDICINE PHYSICIAN * Interdisciplinary - Marguerite Paul, VISITOR SERVICES ASSISTANT - 02/10/2022 10:04 AM CST Respiratory Therapy Assessment And Education [...] FiO2 35-50% >50% 100% 0 Total Score 4 Treatment Scoring Guide Frequency [...] medications Patient RTA Severity Level Is: level 2 per protocol Patient Progression Since Admission: not changed Treatment Plan Adjusted: No: Education Documented (within Education Tab): Yes Education Provided To: patient Comments: no changes needed at this time By: MARGUERITE PAUL CRT; 02/10/2022, 10:04 AM PHYSICAL MEDICINE PHYSICIAN ICAL MEDICINE PHYSICIAN * Interdisciplinary - Derrek Nowak RN - 02/10/2022 6:45 AM CST Patient awake in room. Patient has call light in reach. RN will continue to monitor patient. ICAL MEDICINE PHYSICIAN * Plan of Care - Wilian Shaw RN - 02/10/2022 5:09 AM CST Patient resting in bed. COVID precautions maintained. Pt c/o headache and cough treated per APR. Call light belongings within reach. Problem: Infection Goal: Absence of Infection Signs and Symptoms Outcome: Ongoing (see interventions/notes) Problem: Adult Inpatient Plan of Care Goal: Plan of Care Review Outcome: Ongoing (see interventions/notes) Goal: Patient-Specific Goal (Individualized) Outcome: Ongoing (see interventions/notes) Goal: Absence of Hospital-Acquired Illness or Injury Outcome: Ongoing (see interventions/notes) Goal: Optimal Comfort and Wellbeing Outcome: Ongoing (see interventions/notes) Goal: Readiness for Transition of Care Outcome: Ongoing (see interventions/notes) Problem: Fall Injury Risk Goal: Absence of Fall and Fall-Related Injury Outcome: Ongoing (see interventions/notes) ICAL MEDICINE PHYSICIAN * Interdisciplinary - Wilian Shaw, RN - 02/09/2022 7:40 PM CST Report received. Patient A&Ox4. No needs at this time. COVID precautions maintained. Call lightand belongings within reach. ICAL MEDICINE PHYSICIAN * Plan of Care - Derrek Nowak RN - 02/09/2022 5:08 PM CST Problem: Infection Goal: Absence of Infection Signs and Symptoms Outcome: Ongoing (see interventions/notes) Problem: Adult Inpatient Plan of Care Goal: Plan of Care Review Outcome: Ongoing (see interventions/notes) Flowsheets (Taken 02/08/20221611) Plan of Care Reviewed With: patient Progress: progress toward functional goals as expected Today's Goal: decreased shortness of breath Outcome Evaluation: Patient is alert and oriented x4. Patient has had no c/o pain. Patient remains on room air. Patient has call light in reach. Does the patient need assistance with discharge and/or transitioning to the next level of care?: No, no needs anticipated Goal: Patient-Specific Goal (Individualized) Outcome: Ongoing (see interventions/notes) Flowsheets (Taken 02/08/20221611) Today's Goal: decreased shortness of breath Anxieties, Fears or Concerns: none Individualized Care Needs: wants tv off Goal: Absence of Hospital-Acquired Illness or Injury Outcome: Ongoing (see interventions/notes) Intervention: Prevent and Manage VTE (Venous Thromboembolism) Risk Flowsheets (Taken 02/09/2022 0738) VTE Prevention/Management: ambulation encouraged Goal: Optimal Comfort and Wellbeing Outcome: Ongoing (see interventions/notes) Intervention: Provide Person-Centered Care Flowsheets (Taken 02/09/2022 0738) Trust Relationship/Rapport: care explained choices provided emotional support provided empathic listening provided questions answered Goal: Readiness for Transition of Care Outcome: Ongoing (see interventions/notes) ICAL MEDICINE PHYSICIAN * Interdisciplinary - Alona Mccord - 02/09/2022 2:06 PM CST Metal Riveter Coordination Note SUMMARY - Metal Riveter currently working the potential transition plan(s): ??? 02/09/2022 @ 2:06 PM PHYSICAL MEDICINE PHYSICIAN ([facility], TS) Home Health [[facility]] and Follow Up Appointment (See detail within the referral type(s) below for information on what is needed to complete coordination Note - the Transition Specialists do not coordinate all transition types - please direct all question regarding hospital transition to the Straightener And Aligner) Readmission risk level (if calculated) is: 3-Medium High Primary Care Provider: PCP: DAJA CARBALLO MD Primary Medical Coverage: [facility] [place] Medicaid Secondary Medical Coverage: N/A Hospital Follow-Up appointment(s) scheduling status: ??? The following role is responsible for scheduling this patient's hospital follow up appointment:Called Dr Hernandez office and was told by Katharine that the pt needs to call and make the appointment herself. Informed PREMA Jara in person. Home Health Referral Status: pending Referral Type: New Provider who will sign on-going Home Health Plan of Care: PCP: DAJA CARBALLO MD Home Health Services Ne[facility] [facility], physical therapy, occupational therapy Needed Information / Documentation to complete Home Health coordination: ??? IP Consult to Home Health ??? Confirmed Discharge Date [facility] - [facility] Contact [facility] ??? 02/09/2022 @ 2:07 PM PHYSICAL MEDICINE PHYSICIAN ([facility], TS) Set referral to [facility] via [facility] In Basket. ICAL MEDICINE PHYSICIAN ICAL MEDICINE PHYSICIAN ICAL MEDICINE PHYSICIAN * Plan of Care - Estefani Crespo RN - 02/09/2022 12:46 PM CST Case Management Comprehensive Assessment Alona's readmission risk level (if calculated) is: 3-Medium High Patient Class: Outpatient with Observation Services Consecutive Inpatient Midnights :none - not currently inpatient class Actual day(s) of hospital stay (compare to working DRG): 1 Reason for Straightener And AlignerGroup Billing Coordinator: COVID positive Alona is in the hospital due to: Acute respiratory failure with hypoxia Prior to Admission (Support, Living Environment,ADLs IADLs, Transportation, Employment, Access to Care) Patient is a 51 yo single, disabled, female with a PMHx of morbid obesity, depression, anxiety, bipolar disorder, hypothyroid, GERD, hyperlipidemia, hypertension, and diabetes type 2. Patient is A&Ox4. She states she lives alone in a rented ground floor apartment in the [facility]. She receives a disability income of $841 monthly and manages her own finances. She does her own cooking, cleaning and laundry. She does not drive and her mom provides her transportationwhere she needs to go. She uses a cane to ambulate. She has home DME of a CPAP however she hasn't used it in a long time due to it aggrevates her. She states she has attempted to apply for home make rs through [facility] twice in the past, however she was denied. Patient has health insurance and prescription coverage of Medicaid [place]. There are no difficulties obtaining or affording medications through her pharmacy [facility]. She manages her own medications and receives them per mail order. She does not have advanced directives on file. CPAP Alona is not a 30 day re-hospitalization. Plan of Care (Problem/ situation/ barrier + goals/ milestones + interventions + evaluation of progress = Plan of Care) Hospital Plan: IV remdesivir, oxygen supplementation Anticipated Discharge Plan: Home Health (HH) 02/09/22 Patient/ patient access services representative's preferences regarding the discharge plan: home SUMMARY (summary of interaction with patient/decision maker, family and interdisciplinary team) By phone, spoke with Alona and introduced self and role and discussed plan of care. She states she will benefit from home health care when she gets home. Her preference is [facility]. Shewill transport home by family car. Suspected or Confirmed COVID-19 Home Assessment Does patient have ability to self isolate? Please explain. YES lives alone Does the patient have a mask or other [facility] approved covering to cover their mouth and nose when caregivers are present? YES . Will patient have access to a private bathroom not shared with others? YES lives alone Does patient have adequate care giving? YES attention and support from her mother Are those caregivers able to adhere to the isolation precautions needed? YES . Does patient need home health? YES . Does patient have access to adequate food, water, and medications? YES reports has plenty of groceries in the house IM Letter Documentation, if applicable N/A - Payor is not Medicare Decision Maker / De Alcoholizer Information Patient is medical decision-maker New referral(s) for [facility] [[facility]] Agency Choice(s) ??? [facility] List of Medicare approved HH agencies with quality measures and resource data, serving the patient's geographic area (with any financial affiliations disclosed and/ or in network providers identifiedas applicable) provided to patient / family: Yes Provider who will be signing the ongoing Home Health plan of care: DAJA CARBALLO MD (Note: at least one PRIMARY service of [place] [facility], physical therapy or speech is required to meet medical necessity criteria for [facility]) Home Health Services Needed: [place] [facility], physical therapy, occupational therapy Anticipated Needs: disease management and education, post hospital rehabilitation services (PT, OT,SP) ICAL MEDICINE PHYSICIAN * Sujata Bashir RRT - 02/09/2022 8:44 AM CST Respiratory Therapy Assessment And Education [...] FiO2 35-50% >50% 100% 1 Total Score 8 Treatment Scoring Guide Frequency [...] Level Is: 2 Patient Progression Since Admission: improved Treatment Plan Adjusted: No: Education Documented (within Education Tab): Yes Education Provided To: patient Comments: By: SUJATA CRENSHAW, POOL NURSE; 02/09/2022, 8:45 AM PHYSICAL MEDICINE PHYSICIAN ICAL MEDICINE PHYSICIAN * Interdisciplinary - Derrek Nowak RN - 02/09/2022 6:59 AM CST Patient is asleep in bed. Patient has call light in reach. RN will continue to monitor patient. ICAL MEDICINE PHYSICIAN * Plan of Care - Wilian Shaw RN - 02/09/2022 5:44 AM CST Patient resting in bed. 2L O2 on for comfort. Pt in no pain or distress. COVID precautions maintained. Call light belongings within reach. Problem: Infection Goal: Absence of Infection Signs and Symptoms Outcome: Ongoing (see interventions/notes) Problem: Adult Inpatient Plan of Care Goal: Plan of Care Review Outcome: Ongoing (see interventions/notes) Goal: Patient-Specific Goal (Individualized) Outcome: Ongoing (see interventions/notes) Goal: Absence of Hospital-Acquired Illness or Injury Outcome: Ongoing (see interventions/notes) Goal: Optimal Comfort and Wellbeing Outcome: Ongoing (see interventions/notes) Goal: Readiness for Transition of Care Outcome: Ongoing (see interventions/notes) ICAL MEDICINE PHYSICIAN * Interdisciplinary - Wilian Shaw RN - 02/08/2022 9:54 PM CST Report received. Patient A&Ox4. No needs at this time. Fall risk discussed with patient, patient agreeable to use call light prior to getting up. Call light and belongings within reach. ICAL MEDICINE PHYSICIAN * Interdisciplinary - Derrek Nowak RN - 02/08/2022 4:22 PM CST Initial Skin Assessment Patient assessed with 2nd RN Hanna Wounds noted: PRESSURE INJURY AND MOISTURE MANAGEMENT RECOMMENDATIONS: Moisture Management: Patient is Continent and has no moisture problems at this time Pressure Injury Prevention Interventions: Patient is independent in Room and/or Bed Specialty Surface Selection: Moisture Score: 4-->rarely moist Mobility Score: 4-->no limitation Total Blas Score: 23 Patient has intact skin on the pelvis and trunk: Bed Selection based on Blas Moisture and Mobility: Moisture 4: Mobility 3 or 4: No Specialty Bed Indicated Wound care: N/A DERREK NOWAK RN ICAL MEDICINE PHYSICIAN * Plan of Care - Derrek Nowak RN - 02/08/2022 4:14 PM CST Problem: Infection Goal: Absence of Infection Signs and Symptoms Outcome: Ongoing (see interventions/notes) Problem: Adult Inpatient Plan of Care Goal: Plan of Care Review Outcome: Ongoing (see interventions/notes) Flowsheets (Taken 02/08/20221611) Plan of Care Reviewed With: patient Progress: progress toward functional goals as expected Today's Goal: decreased shortness of breath Outcome Evaluation: Patient is alert and oriented x4. Patient has had no c/o pain. Patient remains on room air. Patient has call light in reach. Does the patient need assistance with discharge and/or transitioning to the next level of care?: No, no needs anticipated Goal: Patient-Specific Goal (Individualized) Outcome: Ongoing (see interventions/notes) Flowsheets (Taken 02/08/2022 161) Today's Goal: decreased shortness of breath Anxieties, Fears or Concerns: none Individualized Care Needs: wants tv off Goal: Absence of Hospital-Acquired Illness or Injury Outcome: Ongoing (see interventions/notes) Intervention: Prevent and Manage VTE (Venous Thromboembolism) Risk Flowsheets (Taken 02/08/2022 161) VTE Prevention/Management: anticoagulant therapy initiated Goal: Optimal Comfort and Wellbeing Outcome: Ongoing (see interventions/notes) Intervention: Provide Person-Centered Care Flowsheets (Taken 02/08/2022 1315) Trust Relationship/Rapport: care explained choices provided emotional support provided empathic listening provided questions answered Goal: Readiness for Transition of Care Outcome: Ongoing (see interventions/notes) ICAL MEDICINE PHYSICIAN * Interdisciplinary - aGrima Fabian RRT - 02/08/2022 3:40 PM CST Respiratory Therapy Assessment And Education Points 0 1 2 3 4 Score Pulmonary History No Smoking Smokes <1 ppd Smokes 1 ppd or more Pulmonary impairment (acute or chronic) Severe or Chronic exacerbation 0 Surgical Status None General Surgery Lower Abdominal [...] with use of accessory muscles, RR >35 1 BS Clear Diminished Unilaterally Diminished Bilaterally Crackles [...] FiO2 35-50% >50% 100% 0 Total Score 6 Treatment Scoring Guide Frequency Utilize ORDER SET [...] Tab): Yes Education Provided To: patient Comments: Changing to mdi albuterol 2puffs TID and Q6prn. By: GARIMA FABIAN, POOL NURSE; 02/08/2022, 3:40 PM PHYSICAL MEDICINE PHYSICIAN ICAL MEDICINE PHYSICIAN * Interdisciplinary - Derrek Nowak RN - 02/08/2022 12:00 PM CST Patient arrived to unit. Patient has been oriented to room and surroundings. Patient has no c/o pain. Anticoagulation therapy will be initiated. Patient has call light in reach. RN will continue to monitor patient. ICAL MEDICINE PHYSICIAN documented in this encounter Plan of Treatment Upcoming Encounters Date Type Department Care Team (Late st Contact Info) Description 03/27/2024 8:30 AM PHYSICAL MEDICINE PHYSICIAN [facility] [address] [place] [address] Burt Eastman MD [address] [address] 03/27/2024 8:30 AM PHYSICAL MEDICINE PHYSICIAN - 03/27/2024 9:00 AM PHYSICAL MEDICINE PHYSICIAN [facility] [address] [place] [address] Burt Eastman MD [address] [address] COLONOSCOPY 04/09/2024 1:15 PM PHYSICAL MEDICINE PHYSICIAN Office Visit [facility] - Pulmonology & Sleep Medicine [facility] [address] [place] [address] Baron Vergara MD [address] [place] [address] Scheduled Orders Name Type Priority Associated Diagnoses Orde r Schedule Pulse Oximetry, Spot PFT Routine WITH VITALS until discontinued starting 02/08/2022 Scheduled Procedures Name Priority Associated Diagnoses Date/Ti me COLONOSCOPY HISTORY OF COLON POLYPS 03/27/2024 8:30 AM PHYSICAL MEDICINE PHYSICIAN documented as of this encounter Procedures Procedure Name Priority Date/Time Associated Diagnosis Comments CBC WITH AUTO DIFFERENTIAL Routine 02/10/2022 4:25 AM PHYSICAL MEDICINE PHYSICIAN COMPLETE BLOOD COUNT (CBC) WITH DIFF Routine 02/10/2022 4:25 AM PHYSICAL MEDICINE PHYSICIAN LAVENDER TOP TUBE Routine 02/09/2022 10: 57 AM PHYSICAL MEDICINE PHYSICIAN PROTIME (PT) (PROTHROMBIN TIME) Routine 02/09/2022 10:46 AM PHYSICAL MEDICINE PHYSICIAN CMP (COMPREHENSIVE METABOLIC PANEL) Routine 02/09/2022 10:46 AM PHYSICAL MEDICINE PHYSICIAN CBC WITH AUTO DIFFERENTIAL Routine 02/09/2022 4:32 AM PHYSICAL MEDICINE PHYSICIAN COMPLETE BLOOD COUNT (CBC) WITH DIFF Routine 02/09/2022 4:32 AM PHYSICAL MEDICINE PHYSICIAN BASIC METABOLIC PANEL W/ CALCIUM TOTAL Routine 02/09/2022 4:32 AM PHYSICAL MEDICINE PHYSICIAN POCT GLUCOSE Routine 02/08/2022 1:10 PM PHYSICAL MEDICINE PHYSICIAN EXTRA TUBES STAT 02/08/2022 11:12 AM PHYSICAL MEDICINE PHYSICIAN MARS PERALTA HEPARIN/SST TOP TUBE STAT 02/08/2022 11:12 AM PHYSICAL MEDICINE PHYSICIAN LAVENDER TOP TUBE STAT 02/08/2022 11: 12 AM PHYSICAL MEDICINE PHYSICIAN CBC WITH AUTO DIFFERENTIAL STAT 02/08/2022 10:52 AM PHYSICAL MEDICINE PHYSICIAN COMPLETE BLOOD COUNT (CBC) WITH DIFF STAT 02/08/2022 10:52 AM PHYSICAL MEDICINE PHYSICIAN EXTRA TUBES STAT 02/08/2022 10:19 AM PHYSICAL MEDICINE PHYSICIAN GOLD TOP TUBE STAT 02/08/2022 10:19 AM PHYSICAL MEDICINE PHYSICIAN BLUE TOP TUBE STAT 02/08/2022 10:19 AM PHYSICAL MEDICINE PHYSICIAN XR CHEST SINGLE VIEW PORTABLE STAT 02/08/2022 10:02 AM PHYSICAL MEDICINE PHYSICIAN EKG 12 LEAD STAT 02/08/2022 9:45 AM PHYSICAL MEDICINE PHYSICIAN SARS-COV-2 BY MOLECULAR STAT 02/08/2022 9:44 AM PHYSICAL MEDICINE PHYSICIAN POCT INFLUENZA A & B STAT 02/08/2022 9:44 AM PHYSICAL MEDICINE PHYSICIAN TROPONIN I (TRP I) STAT 02/08/2022 9: 44 AM PHYSICAL MEDICINE PHYSICIAN CMP (COMPREHENSIVE METABOLIC PANEL) STAT 02/08/2022 9:44 AM PHYSICAL MEDICINE PHYSICIAN documented in this encounter Results * CBC with Auto Differential (02/10/2022 4:25 AM PHYSICAL MEDICINE PHYSICIAN) Only the most recent of3 resultswithin the time period is included. WBC 5.74 4.00 - 12.00 10(3)/mcL 02/10/2022 5:05 AM PHYSICAL MEDICINE PHYSICIAN [facility] RBC 4.31 3.80 - 5.30 10(6)/mcL 02/10/2022 5:05 AM [facility] HEMOGLOBIN (HGB) 12.5 12.0 - 15.8 g/dL 02/10/2022 5:05 AM [facility] HEMATOCRIT (HCT) 40.2 36.0 - 47.0 % 02/10/2022 5:05 AM [facility] MCV 93.3 82.0 - 96.0 fL 02/10/2022 5:05 AM PHYSICAL MEDICINE PHYSICIAN [facility] MCH 29.0 26.0 - 34.0 pg 02/10/2022 5:05 AM PHYSICAL MEDICINE PHYSICIAN [facility] MCHC 31.1 31.0 - 36.0 g/dL 02/10/2022 5:05 AM [facility] PLATELET COUNT 151 140 - 440 10(3)/mcL 02/10/2022 5:05 AM [facility] RDW 13.6 11.8 - 15.5 % 02/10/2022 5:05 AM [facility] MPV 11.8 9.7 - 12.4 fL 02/10/2022 5:05 AM [facility] NEUTROPHILS 70.6 47.0 - 73.0 % 02/10/2022 5:05 AM [facility] LYMPHOCYTES 22.8 18.0 - 42.0 % 02/10/2022 5:05 AM [facility] MONOCYTES 6.4 4.0 - 12.0 % 02/10/2022 5:05 AM [facility] EOSINOPHILS 0.0 0.0 - 5.0 % 02/10/2022 5:05 AM [facility] BASOPHILS 0.2 0.0 - 1.0 % 02/10/2022 5:05 AM [facility] ABSOLUTE NEUTROPHILS 4.05 1.60 - 7.70 10(3)/[facility] 02/10/2022 5:05 AM [facility] ABSOLUTE LYMPHOCYTES 1.31 1.30 - 3.20 10(3)/[facility] 02/10/2022 5:05 AM [facility] ABSOLUTE MONOCYTES 0.37 0.20 - 1.00 10(3)/[facility] 02/10/2022 5:05 AM [facility] ABSOLUTE EOSINOPHIL 0.00 0.00 - 0.40 10(3)/[facility] 02/10/2022 5:05 AM [facility] ABSOLUTE BASOPHILS 0.01 0.00 - 0.10 10(3)/[facility] 02/10/2022 5:05 AM [facility] NRBC PER 100 WBC 0 02/11/20 5:05 AM [facility] Blood Venipuncture / Unknown 02/10/2022 4:[address] [facility] 02/10/2022 5:00 AM PHYSICAL MEDICINE PHYSICIAN us Eleanor Whittaker DESULPHURING OPERATOR, WHEELCHAIR DRIVER HEMATOLOGY ORDERABLES Final Result [facility] [address] [place] [address] * Lavender Top Tube (02/09/2022 10:57 AM PHYSICAL MEDICINE PHYSICIAN) Only the most recent of2 resultswithin the time period is included. Blood No Phlebotomy Charged / Unknown 02/09/2022 10:57 AM PHYSICAL MEDICINE PHYSICIAN 02/09/2022 10:57 AM PHYSICAL MEDICINE PHYSICIAN us Bridgette Faulkner DESULPHURING OPERATOR, WHEELCHAIR DRIVER HEMATOLOGY ORDERABLES F inal Result [facility] [address] [place] [address] * (ABNORMAL) Comprehensive Metabolic Panel (CMP) (02/09/2022 10:46 AM PHYSICAL MEDICINE PHYSICIAN) Only the most recent of2 resultswithin the time period is included. SODIUM 138 136 - 144 mmol/L 02/09/2022 11:19 AM [facility] POTASSIUM 4.3 3.5 - 5.1 mmol/L 02/09/2022 11:19 AM [facility] CHLORIDE 98(L) 100 - 110 mmol/L 02/09/2022 11:19 AM [facility] CO2, VENOUS 29 22 - 32 mmol/L 02/09/2022 11:19 AM [facility] ANION GAP 15.3 8.0 - 20.0 mmol/L 02/09/2022 11:19 AM [facility] GLUCOSE 173(H) 70 - 99 mg/dL 02/09/2022 11:19 AM [facility] BUN 20 6 - 20 mg/dL 02/09/2022 11:19 AM [facility] CREATININE, BLOOD 0.82 0.60 - 1.10 mg/dL 02/09/2022 11:19 AM [facility] BUN/CREATININE RATIO 24(H) 12 - 20 ratio 02/09/2022 11:19 AM [facility] TOTAL PROTEIN 6.6 6.0 - 8.3 g/dL 02/09/2022 11:19 AM [facility] ALBUMIN 3.8 3.5 - 5.2 g/dL 02/09/2022 11:19 AM [facility] Comment: The colormetric methods used for the determination of Albumin may lead to falsely elevated test results in patients suffering from renal failure or insufficiency due to interference with other proteins. A/G RATIO 1.4 1.0 - 2.0 02/09/2022 11:19 AM [facility] CALCIUM 9.4 8.9 - 10.3 mg/dL 02/09/2022 11:19 AM [facility] T BILI <0.3 <=1.2 mg/dL 02/09/2022 11:19 AM [facility] SGOT (AST) 12 <=32 U/L 02/09/2022 11:19 AM [facility] SGPT (ALT) 11 <=41 U/L 02/09/2022 11:19 AM [facility] ALKALINE PHOSPHATASE 93 35 - 105 U/L 02/09/2022 11:19 AM [facility] GFR, ESTIMATED >60 >=60 02/09/2022 11:19 AM [facility] Comment: Creatinine Clearance is the preferred criteria for selecting drug dose adjustments in renally impaired patients. ??The GFR is provided as additional pertinent clinical information. GFR is reported in mL/min/1.73 sq m. Calculation based on the Chronic Kidney Disease Epidemiology Collaboration (CKD- EPI) equation refit without adjustment for race. GFR, EST. >60 >=60 022 11:19 AM [facility] GFR, EST. NONAFRICAN >60 >=60 02/09/2022 11:19 AM [facility] Blood Venipuncture / Unknown 02/09/2022 10:46 AM PHYSICAL MEDICINE PHYSICIAN 02/09/2022 10:50 AM PHYSICAL MEDICINE PHYSICIAN us Bridgette Faulkner DESULPHURING OPERATOR, WHEELCHAIR DRIVER CHEMISTRY ORDERABLES Fi nal Result [facility] [address] [place] [address] * PROTIME (PT) (PROTHROMBIN TIME) (02/09/2022 10:46 AM PHYSICAL MEDICINE PHYSICIAN) Pathologist [facility] PROTIME-PATIENT 12.8 11.6 - 14.8 sec 02/09/2022 11:08 AM PHYSICAL MEDICINE PHYSICIAN [facility] INR 1.0 0.9 - 1.2 02/09/2022 11:08 AM PHYSICAL MEDICINE PHYSICIAN [facility] Comment: Therapeutic Ranges INR = 2.0-3.0: Venous thromb, atrial fib, pul embolism, tissue heart valve, ami. INR = 2.5-3.5: Mechanical heart valve Critical value for INR is >/= 4.5 Blood Venipuncture / Unknown 02/09/2022 10:46 AM PHYSICAL MEDICINE PHYSICIAN 02/09/2022 10:50 AM PHYSICAL MEDICINE PHYSICIAN Bridgette Faulkner DESULPHURING OPERATOR, WHEELCHAIR DRIVER HEMATOLOGY ORDERABLES F inal Result [facility] [address] [place] [address] * (ABNORMAL) BMP with Ca, Total (02/09/2022 4:32 AM PHYSICAL MEDICINE PHYSICIAN) Pathologist [facility] SODIUM 136 136 - 144 mmol/L 02/09/2022 6:31 AM PHYSICAL MEDICINE PHYSICIAN [facility] POTASSIUM 4.0 3.5 - 5.1 mmol/L 02/09/2022 6:31 AM PHYSICAL MEDICINE PHYSICIAN [facility] CHLORIDE 99(L) 100 - 110 mmol/L 02/09/2022 6:31 AM [facility] CO2, VENOUS 28 22 - 32 mmol/L 02/09/2022 6:31 AM [facility] ANION GAP 13.0 8.0 - 20.0 mmol/L 02/09/2022 6:31 AM PHYSICAL MEDICINE PHYSICIAN [facility] GLUCOSE 154(H) 70 - 99 mg/dL 02/09/2022 6:31 AM PHYSICAL MEDICINE PHYSICIAN [facility] BUN 17 6 - 20 mg/dL 02/09/2022 6:31 AM PHYSICAL MEDICINE PHYSICIAN [facility] CREATININE, BLOOD 0.63 0.60 - 1.10 mg/dL 02/09/2022 6:31 AM PHYSICAL MEDICINE PHYSICIAN [facility] BUN/CREATININE RATIO 27(H) 12 - 20 ratio 02/09/2022 6:31 AM [facility] CALCIUM 9.7 8.9 - 10.3 mg/dL 02/09/2022 6:31 AM PHYSICAL MEDICINE PHYSICIAN [facility] GFR, ESTIMATED >60 >=60 02/09/2022 6:31 AM PHYSICAL MEDICINE PHYSICIAN [facility] Comment: Creatinine Clearance is the preferred criteria for selecting drug dose adjustments in renally impaired patients. ??The GFR is provided as additional pertinent clinical information. GFR is reported in mL/min/1.73 sq m. Calculation based on the Chronic Kidney Disease Epidemiology Collaboration (CKD- EPI) equation refit without adjustment for race. GFR, EST. >60 >=60 022 6:31 AM PHYSICAL MEDICINE PHYSICIAN [facility] GFR, EST. NONAFRICAN >60 >=60 02/09/2022 6:31 AM PHYSICAL MEDICINE PHYSICIAN [facility] Blood Venipuncture / Unknown 02/09/2022 4:32 AM PHYSICAL MEDICINE PHYSICIAN 02/09/2022 5:28 AM PHYSICAL MEDICINE PHYSICIAN Eleanor Whittaker APRN, WHEELCHAIR DRIVER CHEMISTRY ORDERABLES Final Result [facility] [address] [place] [address] * (ABNORMAL) POCT Glucose (02/08/2022 1:10 PM PHYSICAL MEDICINE PHYSICIAN) GLUCOSE,BEDSID E POCT 174(H) 70 - 99 mg/dL 02/08/2022 1:16 PM PHYSICAL MEDICINE PHYSICIAN [facility] Comment:RN Notified Blood 02/08/2022 1:10 PM PHYSICAL MEDICINE PHYSICIAN 02/08/2022 1:16 PM PHYSICAL MEDICINE PHYSICIAN us None Provider POINT OF CARE TESTING Final Resu lt Performing Organization Address City/[facility] Co de Phone Number [facility] [address] [place] [address] * MARS PERALTA HEPARIN/SST TOP TUBE (02/08/2022 11:12 AM PHYSICAL MEDICINE PHYSICIAN) Blood No Phlebotomy Charged / Unknown 02/08/2022 11:12 AM PHYSICAL MEDICINE PHYSICIAN 02/08/2022 11:13 AM PHYSICAL MEDICINE PHYSICIAN us John Prabhakar MD HEMATOLOGY ORDERABLES Final Resu lt Performing Organization Address [facility] Co de Phone Number [facility] [address] [place] [address] * Gold Top Tube (02/08/2022 10:19 AM PHYSICAL MEDICINE PHYSICIAN) Blood No Phlebotomy Charged / Unknown 02/08/2022 10:19 AM PHYSICAL MEDICINE PHYSICIAN 02/08/2022 10:20 AM PHYSICAL MEDICINE PHYSICIAN us John Prabhakar MD CHEMISTRY ORDERABLES Final Resul t Performing Organization Address [facility] Co de Phone Number [facility] [address] [place] [address] * Blue Top Tube (02/08/2022 10:19 AM PHYSICAL MEDICINE PHYSICIAN) Blood No Phlebotomy Charged / Unknown 02/08/2022 10:19 AM PHYSICAL MEDICINE PHYSICIAN 02/08/2022 10:20 AM PHYSICAL MEDICINE PHYSICIAN us John Prabhakar MD HEMATOLOGY ORDERABLES Final Resu lt Performing Organization Address [facility] Co de Phone Number [facility] [address] [place] [address] * XR CHEST SINGLE VIEW PORTABLE (02/08/2022 10:02 AM PHYSICAL MEDICINE PHYSICIAN) Anatomical Region Laterality Modality Chest N/A Digital Radiogra phy 02/08/2022 10:5 2 AM PHYSICAL MEDICINE PHYSICIAN Impressions 02/08/2022 10:55 AM PHYSICAL MEDICINE PHYSICIAN IMPRESSION: ?? No acute pulmonary abnormality. Narrative 02/08/2022 10:55 AM PHYSICAL MEDICINE PHYSICIAN EXAM DESCRIPTION: ?? XR CHEST SINGLE VIEW PORTABLE REASON FOR STUDY: ?? SOB x today. Patient states coughing up ??green sputum x 3 days. HX: Asthma, HTN ?? TECHNIQUE: ?? One ??radiographic view of the chest acquired. COMPARISON: ?? Chest radiograph February 20, 2021 through August 02, 2021 FINDINGS: LUNGS/PLEURA: ?? No pleural effusion, airspace consolidation, or pneumothorax. HEART/MEDIASTINUM: ?? Cardiomediastinal silhouette is unremarkable. HARDWARE/LINES/TUBES: ?? None. BONES: ?? No acute findings. OTHER: ?? No other significant finding. THIS IS AN ELECTRONICALLY VERIFIED FINAL REPORT 02/08/2022 10:52 AM - Electronically signed by ??Claudia Casas D.O. AC: FELIX D: ??02/08/2022 10:52 AM T: ??02/08/2022 10:52 AM Report ID: [id number] Reading Location: ??[id number] Procedure Note Claudia Casas DO - 02/08/2022 EXAM DESCRIPTION: XR CHEST SINGLE VIEW PORTABLE REASON FOR STUDY: SOB x today. Patient states coughing up green sputum x 3 days. HX: Asthma, HTN TECHNIQUE: One radiographic view of the chest acquired. COMPARISON: Chest radiograph February 20, 2021 through August 02, 2021 FINDINGS: LUNGS/PLEURA: No pleural effusion, airspace consolidation, or pneumothorax. HEART/MEDIASTINUM: Cardiomediastinal silhouette is unremarkable. HARDWARE/LINES/TUBES: None. BONES: No acute findings. OTHER: No other significant finding. THIS IS AN ELECTRONICALLY VERIFIED FINAL REPORT 02/08/2022 10:52 AM - Electronically signed by Claudia Casas D.O. AC: FELIX Report ID: [id number] Reading Location: [id number] IMPRESSION: No acute pulmonary abnormality. us John Prabhakar MD IMG DIAGNOSTIC ORDERABLES Final Result * EKG 12 LEAD (02/08/2022 9:45 AM PHYSICAL MEDICINE PHYSICIAN) Ventricular Rate 106 BPM EXTERNAL EKG Atrial Rate 106 BPM EXTERNAL EKG P-R Interval 124 ms EXTERNAL EKG QRS Duration 84 ms EXTERNAL EKG Q-T Duration 340 ms EXTERNAL EKG QTC CALCULATION 451 ms EXTERNAL EKG P Adams 29 degrees EXTERNAL EKG R Adams -23 degrees EXTERNAL EKG T Adams 34 degrees EXTERNAL EKG 02/08/2022 9:45 AM PHYSICAL MEDICINE PHYSICIAN Impressions EXTERNAL EKG - 02/09/2022 9:35 AM PHYSICAL MEDICINE PHYSICIAN Sinus tachycardia Possible Left atrial enlargement Left ventricular hypertrophy ( R in aVL , [place] product ) Abnormal ECG No previous ECGs available Confirmed by Antony Choudhury ([id number]) on 02/09/2022 9:35:26 AM Narrative Procedure Note Antony Carroll MD - 02/09/2022 IMPRESSION: Sinus tachycardia Possible Left atrial enlargement Left ventricular hypertrophy ( R in aVL , [place] product ) Abnormal ECG No previous ECGs available Confirmed by Antony Choudhury ([id number]) on 02/09/2022 9:35:26 AM us John Prabhakar MD IMG ECG ORDERABLES Final Result EXTERNAL EKG * Troponin I (Trp I) (02/08/2022 9:44 AM PHYSICAL MEDICINE PHYSICIAN) TROPONIN I <0.300 <=0.300 ng/mL 02/08/2022 10:40 AM PHYSICAL MEDICINE PHYSICIAN [facility] Blood Venipuncture / Unknown 02/08/2022 9:44 AM PHYSICAL MEDICINE PHYSICIAN 02/08/2022 10:18 AM PHYSICAL MEDICINE PHYSICIAN us John Prabhakar MD CHEMISTRY ORDERABLES Final Resul t [facility] [address] [place] [address] * (ABNORMAL) POCT Influenza A & B (02/08/2022 9:44 AM PHYSICAL MEDICINE PHYSICIAN) POC INFLU A Positive Group A(A) Presumptive negative Group A, Invalid POC INFLU B Presumptive negative Group B Presumptive negative Group B, Invalid POC INFLUENZA CONTROL Dry Heat Cabinet Attendant Pass 02/08/2022 9:44 AM PHYSICAL MEDICINE PHYSICIAN us John Prabhakar MD POINT OF CARE TESTING (MANUAL) F inal Result * (ABNORMAL) SARS-COV-2 BY MOLECULAR (02/08/2022 9:44 AM PHYSICAL MEDICINE PHYSICIAN) SARSCOV2 DETECTED(A ) (Reference Range for this test is Not Detected) [facility] ID NOW 02/08/2022 10:29 AM PHYSICAL MEDICINE PHYSICIAN [facility] Comment:This test was perfor med by a MOLECULAR, NON-PCR method Other NASOPHARYNGEAL STRUCTURE / Unknown Non-Phlebotomy Collection / Unknown 02/08/2022 9:44 AM PHYSICAL MEDICINE PHYSICIAN 02/08/2022 10:18 AM PHYSICAL MEDICINE PHYSICIAN Narrative [facility] - 02/08/2022 10:29 AM PHYSICAL MEDICINE PHYSICIAN This test has been authorized by the [...] information for Clinicians can be found at: https://www.fda.gov/media/354537/download Additional information for Patients can be found at: https://www.fda.gov/media/151246/download us John Prabhakar MD MICROBIOLOGY - GENERAL ORDERABLE S Final Result [facility] [place] [address] documented in this encounter Visit Diagnoses Diagnosis Acute respiratory failure with hypoxia (HCC)- Primary Acute respiratory failure COVID-19 Influenza A Influenza with other respiratory manifestations Acute respiratory failure with hypoxia (HCC) Acute respiratory failure Bipolar disorder (HCC) Bipolar disorder, unspecified Anxiety Anxiety state, unspecified Depression Depressive disorder, not elsewhere classified GERD (gastroesophageal reflux disease) Esophageal reflux Hypothyroid Unspecified hypothyroidism Hypertension Unspecified essential hypertension Hyperlipidemia Other and unspecified hyperlipidemia Morbid obesity with BMI of 45.0-49.9, adult ([facility]) Type 2 diabetes mellitus, without long-term current use of insulin (HCC) Influenza A H1N1 infection Influenza due to identified 2008 H1N1 influenza virus with other respiratory manifestations COVID-19 virus infection Influenza A Influenza with other respiratory manifestations documented in this encounter Admitting Diagnoses Diagnosis Respiratory failure (HCC) Acute respiratory failure Influenza A Influenza with other respiratory manifestations documented in this encounter Administered Medications Inactive Administered Medications - up to 3 most recent administrations Medication Order MAR Action Action Date Dose Rate Site acetaminophen (TYLENOL) suppository 650 mg 650 mg, Rectal, EVERY 4 HOURS PRN, Starting on Mon02/08/22 at 1155, Until Natalie 02/10/22 at 1722, Mild pain or more severe pain if patient requests, Fever, If patient is taking oral intake without complications and both PO/TX orders are active, administer through the oral route. acetaminophen (TYLENOL) tablet 650 mg 650 mg, Oral, EVERY 4 HOURS PRN, Starting on Mon02/08/22 at 1155, Until Natalie 02/10/22 at 1722, Mild pain or more severe pain if patient requests, Fever, If patient is taking oral intake without complications and both PO/TX orders are active, administer through the oral route. Given 02/10/2022 7:37 AM PHYSICAL MEDICINE PHYSICIAN 650 mg Given 02/09/2022 9:57 PM PHYSICAL MEDICINE PHYSICIAN 650 mg Given 02/09/2022 4:56 PM PHYSICAL MEDICINE PHYSICIAN 650 mg albuterol (PROVENTIL HFA, VENTOLIN HFA) inhaler 2 Puff 2 Puff, Inhalation, EVERY 4 HOURS PRN, Starting on Mon02/08/22 at 1155, Until Mon02/08/22 at 1543, Shortness of Breath, Wheezing, For disposal - Place in Purple Disposal Bin or bag and return to Pharmacy Given 02/08/2022 1:35 PM CS T 2 Puffs albuterol (PROVENTIL HFA, VENTOLIN HFA) inhaler 2 Puff 2 Puff, Inhalation, EVERY 6 HOURS PRN, Starting on Mon02/08/22 at 1542, Until Mon02/10/22 at 1722, Shortness of Breath, Wheezing, For disposal - Place in Purple Disposal Bin or bag and return to PharmacyIndications:Acute respiratory failure with hypoxia (HCC) Given 02/10/2022 1:43 AM PHYSICAL MEDICINE PHYSICIAN 2 Puffs Given 02/09/2022 12:56 AM PHYSICAL MEDICINE PHYSICIAN 2 Puffs albuterol (PROVENTIL HFA, VENTOLIN HFA) inhaler 2 Puff 2 Puff, Inhalation, 3 TIMES DAILY, First dose on Mon02/08/22 at 1900, Until Discontinued, For disposal - Place in Purple Disposal Bin or bag and return to PharmacyIndications:Acute respiratory failure with hypoxia (HCC) Given 02/10/2022 1:34 PM PHYSICAL MEDICINE PHYSICIAN 2 Puffs Given 02/10/2022 7:43 AM PHYSICAL MEDICINE PHYSICIAN 2 Puffs Given 02/09/2022 7:08 PM PHYSICAL MEDICINE PHYSICIAN 2 Puffs aluminum & magnesium hydroxide-simethicone (MAALOX, MYLANTA) 200-200-20 MG/5ML SUSP 20 mL 20 mL, Oral, EVERY 6 HOURS PRN, Starting on Mon02/08/22 at 1155, Until Mon02/10/22 at 1722, Indigestion, Shake well. ARIPiprazole (ABILIFY) tablet 20 mg 20 mg, Oral, DAILY, First dose on Mon02/08/22 at 1600, Until Discontinued Given 02/10/2022 7:38 AM PHYSICAL MEDICINE PHYSICIAN 20 mg Given 02/09/2022 8:12 AM PHYSICAL MEDICINE PHYSICIAN 20 mg Given 02/08/2022 5:04 PM PHYSICAL MEDICINE PHYSICIAN 20 mg baclofen (LIORESAL) tablet 20 mg 20 mg, Oral, 2 TIMES DAILY PRN, Starting on Mon02/08/22 at 1529, Until Mon02/10/22 at 1722, Muscle spasms Given 02/10/2022 7:37 AM PHYSICAL MEDICINE PHYSICIAN 20 mg Given 02/09/2022 4:56 PM PHYSICAL MEDICINE PHYSICIAN 20 mg benzonatate (TESSALON) capsule 100 mg 100 mg, Oral, 3 TIMES DAILY PRN, Starting on Mon02/08/22 at 1858, Until Mon02/10/22 at 1722, Cough, Swallow capsule whole (do not break, chew, dissolve, cut, or crush). If capsules are chewed or dissolved in the mouth, oral mucosa anesthesia may occur and could lead to choking. If numbness or tingling of the tongue, mouth, throat, or face occurs, refrain from oral ingestion of food or liquid until numbness has resolved. Given 02/10/2022 7:[address] 100 mg Given 02/09/2022 10:43 PM PHYSICAL MEDICINE PHYSICIAN 100 mg Given 02/09/2022 8:12 AM PHYSICAL MEDICINE PHYSICIAN 100 mg calcium carbonate (TUMS) chewable tablet 1,000 mg 1,000 mg, Oral, EVERY 8 HOURS PRN, Starting on Mon02/08/22 at 1155, Until Mon02/10/22 at 1722, Heartburn dexamethasone (DECADRON) tablet 6 mg 6 mg, Oral, DAILY AFTER BREAKFAST, First dose on Mon02/09/22 at 0900, Until Discontinued Given 02/10/2022 7:37 AM PHYSICAL MEDICINE PHYSICIAN 6 mg Given 02/09/2022 8:12 AM PHYSICAL MEDICINE PHYSICIAN 6 mg DULoxetine (CYMBALTA) capsule 60 mg 60 mg, Oral, NIGHTLY, First dose on Mon02/08/22 at 2100, Until Discontinued, Do not crush. Given 02/09/2022 8:05 PM PHYSICAL MEDICINE PHYSICIAN 60 mg Given 02/08/2022 8:34 PM PHYSICAL MEDICINE PHYSICIAN 60 mg enoxaparin (LOVENOX) injection 40 mg 40 mg, Subcutaneous, EVERY 12 HOURS SCHEDULED, First dose on Mon02/08/22 at 1230, Until DiscontinuedIndications:Prophylaxis of Venous Thromboembolism Given 02/10/2022 7:37 AM PHYSICAL MEDICINE PHYSICIAN 40 mg Left Abdomen Given 02/09/2022 8:05 PM PHYSICAL MEDICINE PHYSICIAN 40 mg Ri ght Abdomen Given 02/09/2022 8:12 AM PHYSICAL MEDICINE PHYSICIAN 40 mg Le ft Abdomen guaiFENesin (ROBITUSSIN) 100 MG/5ML liquid 200 mg 200 mg, Oral, EVERY 4 HOURS PRN, Starting on Mon02/09/22 at 1358, Until Mon02/10/22 at 1722, Cough, Congestion Given 02/10/2022 7:37 AM PHYSICAL MEDICINE PHYSICIAN 200 mg Given 02/10/2022 3:01 AM PHYSICAL MEDICINE PHYSICIAN 200 mg Given 02/09/2022 2:25 PM PHYSICAL MEDICINE PHYSICIAN 200 mg ipratropium-albuterol (DUO-NEB) 0.5-2.5 (3) MG/3ML nebulizer solution 3 mL 3 mL, Nebulization, ONCE, 1 dose, On Mon02/08/22 at 1030 Given 02/08/2022 10:02 AM PHYSICAL MEDICINE PHYSICIAN 3 mL levothyroxine (SYNTHROID) tablet 50 mcg 50 mcg, Oral, EVERY MORNING BEFORE BREAKFAST, First dose on Mon02/09/22 at 0730, Until DiscontinuedIndications:Hypothyroidism Given 02/10/2022 7:37 AM PHYSICAL MEDICINE PHYSICIAN 50 mc g Given 02/09/2022 8:12 AM PHYSICAL MEDICINE PHYSICIAN 50 mcg losartan (COZAAR) tablet 50 mg 50 mg, Oral, DAILY, First dose on Mon02/08/22 at 1600, Until Discontinued Given 02/10/2022 7:37 AM PHYSICAL MEDICINE PHYSICIAN 50 mg Given 02/09/2022 8:12 AM PHYSICAL MEDICINE PHYSICIAN 50 mg Given 02/08/2022 5:04 PM PHYSICAL MEDICINE PHYSICIAN 50 mg magnesium hydroxide (MILK OF MAGNESIA) 400 MG/5ML suspension 30 mL 30 mL, Oral, DAILY PRN, Starting on Mon02/08/22 at 1155, Until Mon02/10/22 at 1722, Constipation - 2nd line, Magnesium hydroxide 400 mg/5 ml = 166.7 mg elemental magnesium/5ml. Hold for loose stools (loose, liquid, mucoid, soft, watery stool that takes the shape of the container) or greater than 2 moderate or larger stools in 24hrsIndications:Constipation melatonin tablet 3 mg 3 mg, Oral, NIGHTLY PRN, Starting on Mon02/09/22 at 1359, Until Mon02/10/22 at 1722, Other, Sleep Given 02/09/2022 10:45 PM PHYSICAL MEDICINE PHYSICIAN 3 mg methylPREDNISolone sodium succinate (Solu-MEDROL) injection 125 mg 125 mg, Intravenous, ONCE, 1 dose, On Mon02/08/22 at 1030 Given 02/08/2022 10:22 AM PHYSICAL MEDICINE PHYSICIAN 125 mg ondansetron (ZOFRAN) injection 4 mg 4 mg, Intravenous, ONCE, 1 dose, On Mon02/08/22 at 1200 Given 02/08/2022 11:29 AM PHYSICAL MEDICINE PHYSICIAN 4 mg ondansetron (ZOFRAN) injection 4 mg 4 mg, Intravenous, EVERY 6 HOURS PRN, Starting on Mon02/08/22 at 1155, Until Mon02/10/22 at 1722, Nausea - 1st line, 1. First Line Antiemetic. 2. Use Injection only if patient unable to tolerate oral medications. ondansetron (ZOFRAN-ODT) disintegrating tablet 4 mg 4 mg, Oral, EVERY 6 HOURS PRN, Starting on Mon02/08/22 at 1155, Until Mon02/10/22 at 1722, Nausea - 1st line, 1. First Line Antiemetic. 2. Use PO form unless unable to tolerate PO medications, then use Injection oseltamivir (TAMIFLU) capsule 75 mg 75 mg, Oral, 2 TIMES DAILY, 10 doses, First dose on Mon02/09/22 at 1100, Last dose on Mon02/13/22 at 2100, If patient is NPO and NG, OG, OR G-Tube administration required, open capsules and dissolve powder in 20 mL of sterile water and administer down the tube; follow with a 10 mL sterile water flush., Indications: influenzaIndications:influenza Given 02/10/2022 7:38 AM PHYSICAL MEDICINE PHYSICIAN 75 mg Given 02/09/2022 8:05 PM PHYSICAL MEDICINE PHYSICIAN 75 mg Given 02/09/2022 12:48 PM PHYSICAL MEDICINE PHYSICIAN 75 mg oxymetazoline (AFRIN) 0.05 % nasal spray 2 [place] 2 [place], Nasal, ONCE, 1 dose, On Mon02/08/22 at 1030 Given 02/08/2022 10:22 AM PHYSICAL MEDICINE PHYSICIAN 2 Sprays pantoprazole (PROTONIX) tablet 40 mg 40 mg, Oral, DAILY, First dose on Mon02/08/22 at 1600, Until Discontinued, Indications: Symptomatic Gastroesophageal Reflux DiseaseIndications:Symptomatic Gastroesophageal Reflux Disease Given 02/10/2022 7:37 AM PHYSICAL MEDICINE PHYSICIAN 40 mg Given 02/09/2022 8:12 AM PHYSICAL MEDICINE PHYSICIAN 40 mg Given 02/08/2022 5:04 PM PHYSICAL MEDICINE PHYSICIAN 40 mg polyethylene glycol (GLYCOLAX, MIRALAX) packet 17 g 17 g, Oral, 2 TIMES DAILY PRN, Starting on Mon02/08/22 at 1155, Until Mon02/10/22 at 1722, Constipation - 1st line, Dilute dose in 120 - 240 mL of beverage.Hold for loose stools (loose, liquid, mucoid, soft, watery stool that takes the shape of the container) or greater than 2 moderate or larger stools in 24hrsIndications:Constipation pregabalin (LYRICA) capsule 75 mg 75 mg, Oral, 2 TIMES DAILY, First dose on Mon02/08/22 at 2100, Until Discontinued Given 02/10/2022 7:37 AM PHYSICAL MEDICINE PHYSICIAN 75 mg Given 02/09/2022 8:05 PM PHYSICAL MEDICINE PHYSICIAN 75 mg Given 02/09/2022 8:12 AM PHYSICAL MEDICINE PHYSICIAN 75 mg senna (SENOKOT) tablet 8.6 mg 8.6 mg (1 Tablet), Oral, 2 TIMES DAILY PRN, Starting on Mon02/08/22 at 1155, Until Mon02/10/22 at 1722, Constipation - 3rd line sertraline (ZOLOFT) tablet 150 mg 150 mg, Oral, DAILY, First dose on Mon02/08/22 at 1600, Until Discontinued Given 02/10/2022 7:37 AM PHYSICAL MEDICINE PHYSICIAN 150 mg Given 02/09/2022 8:12 AM PHYSICAL MEDICINE PHYSICIAN 150 mg Given 02/08/2022 5:04 PM PHYSICAL MEDICINE PHYSICIAN 150 mg simvastatin (ZOCOR) tablet 10 mg 10 mg, Oral, NIGHTLY, First dose on Mon02/08/22 at 2100, Until Discontinued Given 02/09/2022 8:05 PM PHYSICAL MEDICINE PHYSICIAN 10 mg Given 02/08/2022 8:34 PM PHYSICAL MEDICINE PHYSICIAN 10 mg traZODone (DESYREL) tablet 100 mg 100 mg, Oral, NIGHTLY, First dose on Mon02/08/22 at 2100, Until Discontinued Given 02/09/2022 8:05 PM PHYSICAL MEDICINE PHYSICIAN 100 mg Given 02/08/2022 8:34 PM PHYSICAL MEDICINE PHYSICIAN 100 mg documented in this encounter Active and Recently Administered Medications Times are shown in PHYSICAL MEDICINE PHYSICIAN. Scheduled Medication Order 02/08/2022 02/09/2022 02/10/2022 albuterol (PROVENTIL HFA, VENTOLIN HFA) inhaler 2 Puff 2 Puff, Inhalation, 3 TIMES DAILY, First dose on Mon02/08/22 at 1900, Until Discontinued, For disposal - Place in Purple Disposal Bin or bag and return to Pharmacy 1856 (Given - Provider: Cammy Kinney, JANICE) 0745 (Given - Provider: Sujata Crenshaw, JANICE)1353 (Given - Provider: Garima Fabian, JANICE)1908 (Given - Provider: Seema Zuniga, VISITOR SERVICES ASSISTANT) 0743 (Given - Provider: Marguerite Paul, VISITOR SERVICES ASSISTANT)1334 (Given - Provider: Sujata Crenshaw, JANICE) ARIPiprazole (ABILIFY) tablet 20 mg 20 mg, Oral, DAILY, First dose on Mon02/08/22 at 1600, Until Discontinued 170 (Given - Provider: Derrek Nowak RN) 811 (Given - Provider: Derrek Nowak RN) 737 (Given - Provider: Derrek Nowak RN) dexamethasone (DECADRON) tablet 6 mg 6 mg, Oral, DAILY AFTER BREAKFAST, First dose on Mon02/09/22 at 0900, Until Discontinued 811 (Given - Provider: Derrek Nowak RN) 736 (Given - Provider: Derrek Nowak RN) DULoxetine (CYMBALTA) capsule 60 mg 60 mg, Oral, NIGHTLY, First dose on Mon02/08/22 at 2100, Until Discontinued, Do not crush. 2033 (Given - Provider: Wilian Shaw RN) 2004 (Given - Provider: Wilian Shaw RN) enoxaparin (LOVENOX) injection 40 mg 40 mg, Subcutaneous, EVERY 12 HOURS SCHEDULED, First dose on Mon02/08/22 at 1230, Until Discontinued 151 (Given - Provider: Derrek Nowak RN)2033 (Given - Provider: Wilian Shaw, AGUILA) 811 (Given - Provider: Derrek Nowak RN)2004 (Given - Provider: Wilian Shaw RN) 736 (Given - Provider: Derrek Nowak RN) ipratropium-albuterol (DUO-NEB) 0.5-2.5 (3) MG/3ML nebulizer solution 3 mL (COMPLETED) 3 mL, Nebulization, ONCE, 1 dose, On Mon02/08/22 at 1030 1002 (Given - Provider: Garima Fabian, JANICE) levothyroxine (SYNTHROID) tablet 50 mcg 50 mcg, Oral, EVERY MORNING BEFORE BREAKFAST, First dose on Mon02/09/22 at 0730, Until Discontinued 811 (Given - Provider: Derrek Nowak RN) 736 (Given - Provider: Derrek Nowak RN) losartan (COZAAR) tablet 50 mg 50 mg, Oral, DAILY, First dose on Mon02/08/22 at 1600, Until Discontinued 1703 (Given - Provider: Derrek Nowak RN) 08 (Given - Provider: Derrek Nowak RN) 0737 (Given - Provider: Derrek Nowak RN) methylPREDNISolone sodium succinate (Solu-MEDROL) injection 125 mg (COMPLETED) 125 mg, Intravenous, ONCE, 1 dose, On Mon02/08/22 at 1030 1022 (Given - Provider: Sharri Rdz, AGUILA) ondansetron (ZOFRAN) injection 4 mg (COMPLETED) 4 mg, Intravenous, ONCE, 1 dose, On Mon02/08/22 at 1200 1129 (Given - Provider: Sharri Rdz RN) oseltamivir (TAMIFLU) capsule 75 mg 75 mg, Oral, 2 TIMES DAILY, 10 doses, First dose on Mon02/09/22 at 1100, Last dose on Mon02/13/22 at 2100, If patient is NPO and NG, OG, OR G-Tube administration required, open capsules and dissolve powder in 20 mL of sterile water and administer down the tube; follow with a 10 mL sterile water flush., Indications: influenza 1248 (Given - Provider: Derrek Nowak RN)2004 (Given - Provider: Wilian Shaw RN) 0738 (Given - Provider: Derrek Nowak RN) oxymetazoline (AFRIN) 0.05 % nasal spray 2 [place] (COMPLETED) 2 [place], Nasal, ONCE, 1 dose, On Mon02/08/22 at 1030 1022 (Given - Provider: Sharri Rdz RN) pantoprazole (PROTONIX) tablet 40 mg 40 mg, Oral, DAILY, First dose on Mon02/08/22 at 1600, Until Discontinued, Indications: Symptomatic Gastroesophageal Reflux Disease 1703 (Given - Provider: Derrek Nowak RN) 08 (Given - Provider: Derrek Nowak RN) 0737 (Given - Provider: Derrek Nowak RN) pregabalin (LYRICA) capsule 75 mg 75 mg, Oral, 2 TIMES DAILY, First dose on Mon02/08/22 at 2100, Until Discontinued 2033 (Given - Provider: Wilian Shaw RN) 08 (Given - Provider: Derrek Nowak RN)2004 (Given - Provider: Wilian Shaw RN) 0737 (Given - Provider: Derrek Nowak RN) sertraline (ZOLOFT) tablet 150 mg 150 mg, Oral, DAILY, First dose on Mon02/08/22 at 1600, Until Discontinued 1703 (Given - Provider: Derrek Nowak RN) 811 (Given - Provider: Derrek Nowak RN) 0737 (Given - Provider: Derrek Nowak RN) simvastatin (ZOCOR) tablet 10 mg 10 mg, Oral, NIGHTLY, First dose on Mon02/08/22 at 2100, Until Discontinued 2033 (Given - Provider: Wilian Shaw, AGUILA) 2004 (Given - Provider: Wilian Shaw, RN) traZODone (DESYREL) tablet 100 mg 100 mg, Oral, NIGHTLY, First dose on Mon02/08/22 at 2100, Until Discontinued 2033 (Given - Provider: Wilian Shaw RN) 2004 (Given - Provider: Wilian Shaw, RN) PRN Medication Order 02/08/2022 02/09/2022 02/10/2022 acetaminophen (TYLENOL) suppository 650 mg(Linked Group 1) 650 mg, Rectal, EVERY 4 HOURS PRN, Starting on Mon02/08/22 at 1155, Until Natalie 02/10/22 at 1722, Mild pain or more severe pain if patient requests, Fever, If patient is taking oral intake without complications and both PO/TX orders are active, administer through the oral route. 0821 (See Alternative - Provider: Derrek Nowak RN)1655 (See Alternative - Provider: Derrek Nowak RN)2156 (See Alternative - Provider: Wilian Shaw RN) 0737 (See Alternative - Provider: Derrek Nowak RN) acetaminophen (TYLENOL) tablet 650 mg(Linked Group 1) 650 mg, Oral, EVERY 4 HOURS PRN, Starting on Mon02/08/22 at 1155, Until Natalie 02/10/22 at 1722, Mild pain or more severe pain if patient requests, Fever, If patient is taking oral intake without complications and both PO/TX orders are active, administer through the oral route. 0821 (Given - Provider: Derrek Nowak RN)1655 (Given - Provider: Derrek Nowak RN)2156 (Given - Provider: Wilian Shaw RN) 0737 (Given - Provider: Derrek Nowak RN) albuterol (PROVENTIL HFA, VENTOLIN HFA) inhaler 2 Puff (CANCELED) 2 Puff, Inhalation, EVERY 4 HOURS PRN, Starting on Mon02/08/22 at 1155, Until Mon02/08/22 at 1543, Shortness of Breath, Wheezing, For disposal - Place in Purple Disposal Bin or bag and return to Pharmacy 1335 (Given - Provider: Garima Fabian, JANICE) albuterol (PROVENTIL HFA, VENTOLIN HFA) inhaler 2 Puff 2 Puff, Inhalation, EVERY 6 HOURS PRN, Starting on Mon02/08/22 at 1542, Until Mon02/10/22 at 1722, Shortness of Breath, Wheezing, For disposal - Place in Purple Disposal Bin or bag and return to Pharmacy 0056 (Given - Provider: Cammy Kinney, JANICE) 0143 (Given - Provider: Seema Zuniga, VISITOR SERVICES ASSISTANT) aluminum & magnesium hydroxide-simethicone (MAALOX, MYLANTA) 200-200-20 MG/5ML SUSP 20 mL 20 mL, Oral, EVERY 6 HOURS PRN, Starting on Mon02/08/22 at 1155, Until Mon02/10/22 at 1722, Indigestion, Shake well. baclofen (LIORESAL) tablet 20 mg 20 mg, Oral, 2 TIMES DAILY PRN, Starting on Mon02/08/22 at 1529, Until Mon02/10/22 at 1722, Muscle spasms 1656 (Given - Provider: Derrek Nowak RN) 0737 (Given - Provider: Derrek Nowak RN) benzonatate (TESSALON) capsule 100 mg 100 mg, Oral, 3 TIMES DAILY PRN, Starting on Mon02/08/22 at 1858, Until Mon02/10/22 at 1722, Cough, Swallow capsule whole (do not break, chew, dissolve, cut, or crush). If capsules are chewed or dissolved in the mouth, oral mucosa anesthesia may occur and could lead to choking. If numbness or tingling of the tongue, mouth, throat, or face occurs, refrain from oral ingestion of food or liquid until numbness has resolved. 2033 (Given - Provider: Wilian Shaw, RN) 0812 (Given - Provider: Derrek Nowak, RN)2243 (Given - Provider: Wilian Shaw, RN) 0737 (Given - Provider: Derrek Nowak, RN) calcium carbonate (TUMS) chewable tablet 1,000 mg 1,000 mg, Oral, EVERY 8 HOURS PRN, Starting on Mon02/08/22 at 1155, Until Mon02/10/22 at 1722, Heartburn guaiFENesin (ROBITUSSIN) 100 MG/5ML liquid 200 mg 200 mg, Oral, EVERY 4 HOURS PRN, Starting on Mon02/09/22 at 1358, Until Mon02/10/22 at 1722, Cough, Congestion 1425 (Given - Provider: Derrek Nowak RN) 0301 (Given - Provider: Wilian Shaw, RN)0737 (Given - Provider: Derrek Nowak, RN) magnesium hydroxide (MILK OF MAGNESIA) 400 MG/5ML suspension 30 mL 30 mL, Oral, DAILY PRN, Starting on Mon02/08/22 at 1155, Until Mon02/10/22 at 1722, Constipation - 2nd line, Magnesium hydroxide 400 mg/5 ml = 166.7 mg elemental magnesium/5ml. Hold for loose stools (loose, liquid, mucoid, soft, watery stool that takes the shape of the container) or greater than 2 moderate or larger stools in 24hrs melatonin tablet 3 mg 3 mg, Oral, NIGHTLY PRN, Starting on Mon02/09/22 at 1359, Until Mon02/10/22 at 1722, Other, Sleep 2245 (Given - Provider: Wilian Shaw, RN) ondansetron (ZOFRAN) injection 4 mg(Linked Group 2) 4 mg, Intravenous, EVERY 6 HOURS PRN, Starting on Mon02/08/22 at 1155, Until Mon02/10/22 at 1722, Nausea - 1st line, 1. First Line Antiemetic. 2. Use Injection only if patient unable to tolerate oral medications. ondansetron (ZOFRAN-ODT) disintegrating tablet 4 mg(Linked Group 2) 4 mg, Oral, EVERY 6 HOURS PRN, Starting on Mon02/08/22 at 1155, Until Natalie 02/10/22 at 1722, Nausea - 1st line, 1. First Line Antiemetic. 2. Use PO form unless unable to tolerate PO medications, then use Injection polyethylene glycol (GLYCOLAX, MIRALAX) packet 17 g 17 g, Oral, 2 TIMES DAILY PRN, Starting on Mon02/08/22 at 1155, Until Natalie 02/10/22 at 1722, Constipation - 1st line, Dilute dose in 120 - 240 mL of beverage.Hold for loose stools (loose, liquid, mucoid, soft, watery stool that takes the shape of the container) or greater than 2 moderate or larger stools in 24hrs senna (SENOKOT) tablet 8.6 mg 8.6 mg (1 Tablet), Oral, 2 TIMES DAILY PRN, Starting on Mon02/08/22 at 1155, Until Natalie 02/10/22 at 1722, Constipation - 3rd line Linked Groups Order Group 1: acetaminophen (TYLENOL) tablet 650 mgJump to med 650 mg, Oral, EVERY 4 HOURS PRN, Starting on Mon02/08/22 at 1155, Until Natalie 02/10/22 at 1722, Mild pain or more severe pain if patient requests, Fever, If patient is taking oral intake without complications and both PO/TX orders are active, administer through the oral route. Or acetaminophen (TYLENOL) suppository 650 mgJump to med 650 mg, Rectal, EVERY 4 HOURS PRN, Starting on Mon02/08/22 at 1155, Until Natalie 02/10/22 at 1722, Mild pain or more severe pain if patient requests, Fever, If patient is taking oral intake without complications and both PO/TX orders are active, administer through the oral route. Group 2: ondansetron (ZOFRAN-ODT) disintegrating tablet 4 mgJump to med 4 mg, Oral, EVERY 6 HOURS PRN, Starting on Mon02/08/22 at 1155, Until Natalie 02/10/22 at 1722, Nausea - 1st line, 1. First Line Antiemetic. 2. Use PO form unless unable to tolerate PO medications, then use Injection Or ondansetron (ZOFRAN) injection 4 mgJump to med 4 mg, Intravenous, EVERY 6 HOURS PRN, Starting on Mon02/08/22 at 1155, Until Natalie 02/10/22 at 1722, Nausea - 1st line, 1. First Line Antiemetic. 2. Use Injection only if patient unable to tolerate oral medications. documented in this encounter Additional Health Concerns Infection Onset Date Last Indicated Resolved Time COVID - 19 02/08/2022 02/08/2022 02/08/2022 10:2 9 AM PHYSICAL MEDICINE PHYSICIAN Respiratory Rule-Out 02/08/2022 02/08/2022 023 12:16 AM PHYSICAL MEDICINE PHYSICIAN Influenza 02/08/2022 02/08/2022 02/15/2022 12:1 9 AM PHYSICAL MEDICINE PHYSICIAN COVID - 19 Confirmed 02/08/2022 02/08/2022 023 12:16 AM PHYSICAL MEDICINE PHYSICIAN documented as of this encounter Care Teams Weight Yardage Checker Relationship Specialty Start Date End Date Daja Carballo MD [address] [place] [address] PCP - General Internal Medicine 03/13/15 documented as of this encounter
--- OUTSIDE RECORDS SUMMARY | 2024-03-03 19:28 | XMS_ITS | Encounter Summary ---
Author Organization [facility] Address [address] [place] [address] Phone Care Team Providers Care Staff Physical Therapy Assistant Name Role Phone Daja Kern MD Primary Care Provider [phone] Reason for Visit * Auth/Cert (Routine) Specialty Diagnoses / Procedures Referred By Contac t Referred To Contact Referral ID Status Reason Start Date Expiration Date Visits Re quested Visits Authorized 1 1 Encounter Details Date Type Department Care Team (Late Contact Info) Description 02/16/2022 1:00 PM FOUNDRY MOLDER [facility] [address] [place] [address] Sr Jeana Butcher RN [place] CASE COMMUNICATION Social History Tobacco Use Types [...] to have Coronavirus/COVID-19? Yes 02/15/2022 3:14 PM FOUNDRY MOLDER documented as of this encounter Plan of Treatment Upcoming Encounters Date Type Department Care Team (Late st Contact Info) Description 03/27/2024 8:30 AM FOUNDRY MOLDER [facility] [address] [place] [address] Burt Eastman MD [address] [address] 03/27/2024 8:30 AM FOUNDRY MOLDER - 03/27/2024 9:00 AM FOUNDRY MOLDER [facility] [address] [place] [address] Burt Eastman MD [address] [address] COLONOSCOPY 04/09/2024 1:15 PM FOUNDRY MOLDER Office Visit [facility] - Pulmonology & Sleep Medicine [facility] [address] [place] [address] Baron Vergara MD [address] [place] [address] Scheduled Procedures Name Priority Associated Diagnoses Date/Ti me COLONOSCOPY HISTORY OF COLON POLYPS 03/27/2024 8:30 AM FOUNDRY MOLDER documented as of this encounter Visit Diagnoses Not on filedocumented in this encounter Additional Health Concerns Infection Onset Date Last Indicated Resolved Time Respiratory Rule-Out 02/08/2022 02/08/2022 023 12:16 AM FOUNDRY MOLDER COVID - 19 Confirmed 02/08/2022 02/08/2022 023 12:16 AM FOUNDRY MOLDER documented as of this encounter Care Teams Staff Physical Therapy Assistant Relationship Specialty Start Date End Date Daja Kern MD [address] [place] [address] PCP - General Internal Medicine 03/13/15 documented as of this encounter
--- OUTSIDE RECORDS SUMMARY | 2024-03-03 19:28 | XMS_ITS | Encounter Summary ---
Author Organization [facility] Address [address] [place] [address] Phone Care Team Providers Care Payroll Human Resources Assistant Name Role Phone Daja Kern MD Primary Care Provider [phone] Reason for Referral * Radiology Services (Routine) - Closed Specialty Diagnoses / Procedures Referred By Ladi aguilar Referred To Contact Radiology Diagnoses Chronic cough Procedures XR CHEST 2 VIEWS Daja Kern MD [address] [place] [address] Phone: tel: fax: Referral ID Status Reason Start Date Expiration Date Visits Re quested Visits Authorized [id number] Closed 08/02/2021 1 1 Reason for Visit * Radiology Services (Routine) - Closed Specialty Diagnoses / Procedures Referred By Ladi aguilar Referred To Contact Radiology Diagnoses Chronic cough Procedures XR CHEST 2 VIEWS Daja Kern MD [address] [place] [address] Phone: tel: fax: Referral ID Status Reason Start Date Expiration Date Visits Re quested Visits Authorized [id number] Closed 08/02/2021 1 1 Encounter Details Date Type Department Care Team (Latest Contact Info) Description 08/02/2021 2:47 PM CDT - 08/02/2021 11:59 PM CDT Hospital Encounter [facility] Diagnostic Radiology [address] [place] [address] Daja Kern MD [address] [place] [address] Discharge Disposition: Discharged to home or Selfcare [...] mouth daily. 02/11/2021 levothyroxine (SYNTHROID) 50 MCG TabletIndication s:Hypothyroidism Take [...] mouth 2 times daily as needed. 3 diclofenac (CATAFLAM) 50 MG Tablet Take 75 mg by mouth 2 times daily. 2 diphenhydrAMINE (BENADRYL) 50 MG Capsule Take 50 mg by mouth nightly as needed. 2 ibuprofen (MOTRIN) 600 MG Tablet Take 1 Tablet by mouth every 6 hours as needed for Moderate or more severe pain or Fever. 30 Tablet 04/30/2021 2 metoprolol Succinate (TOPROL-XL) 25 MG TABLET SR 24 HR Take by mouth daily. 01/31/2021 2 pregabalin (LYRICA) 75 MG Capsule Take 75 mg by mouth 2 times daily. 3 sertraline (ZOLOFT) 100 MG Tablet Take 150 mg by mouth daily. Take 100mg by mouth daily 3 simvastatin (ZOCOR) 10 MG Tablet Take 10 mg by mouth every evening. 12/13/2018 2 triamterene-hydr ochlorothiazide (MAXZIDE) 37.5-25 MG Tablet Take 1 Tab by mouth daily. 2 Trulicity 1.5 MG/0.5ML Solution Pen-injector 1.5 mg by Subcutaneous route once a week. On sundays07/08/2021 2 documented as of this encounter Plan of Treatment Upcoming Encounters Date Type Department Care Team (Late st Contact Info) Description 03/27/2024 8:30 AM SUPERVISOR ROVING [facility] [address] [place] [address] Burt Eastman MD [address] [address] 03/27/2024 8:30 AM SUPERVISOR ROVING - 03/27/2024 9:00 AM SUPERVISOR ROVING [facility] [address] [place] [address] Burt Eastman MD [address] [address] COLONOSCOPY 04/09/2024 1:15 PM SUPERVISOR ROVING [facility] [place] [address] [place] [address] Baron Vergara MD [address] [place] [address] Scheduled Procedures Name Priority Associated Diagnoses Date/Ti me COLONOSCOPY HISTORY OF COLON POLYPS 03/27/2024 8:30 AM SUPERVISOR ROVING documented as of this encounter Procedures Procedure Name Priority Date/Time Associated Diagnosis Comments XR CHEST 2 VIEWS Routine 08/02/2021 3:07 PM CDT Chronic cough documented in this encounter Results * XR CHEST 2 [...] signed by ??Faraz Owens M.D. JR: D: ??08/02/2021 5:11 PM T: ??08/02/2021 5:11 PM Report ID: [id number] Reading Location: ??[id number] Procedure Note Faraz Owens MD - 08/02/2021 [...] by Faraz Owens M.D. JR: Report ID: [id number] Reading Location: [id number] IMPRESSION: No acute findings. Daja Kern MD IMG DIAGNOSTIC ORDERABLES Fin al Result documented in this encounter Visit Diagnoses Diagnosis Chronic cough Cough documented in this encounter Care Teams Payroll Human Resources Assistant Relationship Specialty Start Date End Date Daja Kern MD [address] [place] [address] PCP - General Internal Medicine 03/13/15 documented as of this encounter
--- OUTSIDE RECORDS SUMMARY | 2024-03-03 19:28 | XMS_ITS | Encounter Summary ---
Author Organization [facility] Address [address] [place] [address] Phone Care Team Providers Care Television Actor Name Role Phone Daja Kern MD Primary Care Provider [phone] Reason for Referral * Radiology Services (Routine) - Closed Specialty Diagnoses / Procedures Referred By Contac t Referred To Contact Radiology Diagnoses Pain in left hip Procedures XR HIP 2 VIEWS UNILATERAL LEFT Laxmi Houston APRN, CNP [address] [place] [address] Phone: tel: fax: Referral ID Status Reason Start Date Expiration Date Visits Re quested Visits Authorized [id number] Closed 10/12/2021 1 1 Encounter Details Date Type Department Care Team (Latest Contact Info) Description 10/12/2021 Transcribe Orders [facility] Patient Access Admitting 1 [place] [id number] Laxmi Houston APRN, CNP [address] [place] [address] Pain in left hip (Primary Dx) Social History Tobacco Use Types [...] st Contact Info) Description 03/27/2024 8:30 AM OFFAL ROLLER [facility] [address] [place] [address] Burt Eastman MD [address] [address] 03/27/2024 8:30 AM OFFAL ROLLER - 03/27/2024 9:00 AM OFFAL ROLLER [facility] [address] [place] [address] Burt Eastman MD [address] [address] COLONOSCOPY 04/09/2024 1:15 PM OFFAL ROLLER Office Visit [facility] - Pulmonology & Sleep Medicine [facility] [address] [place] [address] Baron Vergara MD [address] [place] [address] Scheduled Procedures Name Priority Associated Diagnoses Date/Ti me COLONOSCOPY HISTORY OF COLON POLYPS 03/27/2024 8:30 AM OFFAL ROLLER documented as of this encounter Results * XR HIP 2 [...] AM T: ??10/14/2021 8:22 AM Report ID: [id number] Reading Location: ??[id number] Procedure Note Lavelle Justice MD - 10/14/2021 [...] 8:22 AM - Electronically signed by Lavelle Justice M.D. MF: [id number] Report ID: [id number] Reading Location: [id number] IMPRESSION: Minimal left hip osteoarthritis. Laxmi Houston APRN, [employer] SUPERVISOR IMG DIAGNOSTIC ORDERA BLES Final Result documented in this encounter Visit Diagnoses Diagnosis Pain in left hip- Primary Pain in joint, pelvic region and thigh Pain in left hip Pain in joint, pelvic region and thigh documented in this encounter Care Teams Television Actor Relationship Specialty Start Date End Date Daja Kern MD [address] [place] [address] PCP - General Internal Medicine 03/13/15 documented as of this encounter
--- OUTSIDE RECORDS SUMMARY | 2024-03-03 19:28 | XMS_ITS | Encounter Summary ---
Author Organization [facility] Address [address] [place] [address] Phone Care Team Providers Care [employer]derer [employer] Name Role Phone Daja Carballo MD Primary Care Provider Reason for Visit * Reason Comments Abdominal Pain * Auth/Cert Specialty Diagnoses / Procedures Referred By Ladi t Referred To Contact Diagnoses Small bowel obstruction (HCC) Helen Bernstein MD [address] [place] [address] Phone: tel: fax: Referral ID Status Reason Start Date Expiration Date Visits Re quested Visits Authorized [id number] 1 1 Encounter Details Date Type Department Care Team (Late st Contact Info) Description 09/06/2021 10:28 PM CDT - 09/08/2021 2:45 PM CDT Emergency [facility] Med Surg [address] [place] [phone] Jhon Smith MD [address] [place] [address] Lashae Higuera APRN, HOSPITAL INSURANCE CLERK [address] [place] [address] Helen Bernstein MD [address] [place] [address] Small bowel obstruction (HCC) Discharge Disposition: Discharged to home or [...] Sign Reading Time Taken Comments Blood Pressure 142/76 09/08/2021 8:00 AM CDT Pulse 100 09/08/2021 8:00 AM CDT Temperature 36.2 ??C (97.2 ??F) 09/08/2021 8:00 AM CD T Respiratory Rate 20 09/08/2021 8:00 AM CDT Oxygen Saturation 98% 09/08/2021 8:00 AM CDT Inhaled Oxygen Concentration - - Weight 119.8 kg (264 lb 2 oz) 09/07/2021 3:01 AM CDT Height 157.5 cm (5' 2 ) 09/07/2021 3:01 AM CDT Body Mass Index 48.31 09/07/2021 3:01 AM CDT documented in this encounter Discharge Summaries * Helen Bernstein MD - 09/08/2021 10:56 AM CDT Images from the original note were not included. [facility] DISCHARGE SUMMARY Name: Alona Kemp Age: 50 y.o. : 1970 Attending Physician: Helen Bernstein MD Admission Date/Time: 09/06/2021 Expected Discharge Date: 09/08/2021 Primary Care Physician: DAJA CARBALLO MD Discharging Provider: Helen Bernstein MD INSTRUCTIONS FOR PHYSICIANS ON FOLLOW UP AFTER DISCHARGE: Follow-up Information Follow up With Specialties Details Why Contact Info Daja Carballo MD Internal Medicine Follow up in 1 week(s) [address] [facility] [id number] Discharge Instructions: Discharge Condition: improved Disposition: Home Diet: Regular Diet Activity: activity as tolerated Discharge Diagnoses: Small-bowel obstruction Present on Admission: ??? Small bowel obstruction (HCC) ??? GERD (gastroesophageal reflux disease) ??? Hypertension ??? Hyperlipidemia ??? Bipolar disorder (HCC) ??? Depression ??? Hypothyroid ??? Cocaine use ??? Morbid obesity with BMI of 45.0-49.9, adult (HCC) ??? Anxiety ??? Type 2 diabetes mellitus, without long-term current use of insulin (HCC) Admitting Diagnoses: Nausea and vomiting and abdominal pain and small-bowel obstruction HOSPITAL COURSE: Alona Kemp was admitted 09/06/2021 with nausea and vomiting and abdominal pain and was diagnosed with small-bowel obstruction based on the CT scan of the abdomen. The patient had abdominal pain anddistension. This is a recurrent issue and she has had similar conditions in the past. An NG-tube was placed and the patient was transferred to the medical floor for further management. A significant amount of gastric contents were drained. The patient was also treated with IV fluids. As her symptoms improved by the morning of admission, after being seen by surgery, decision was made to do a small-bowel follow- through. The test showed that the contrast material that was given through the NG tube, appeared in the colon after 4 hours and did not show any evidence of a mechanical obstruction. This appears to have been a functional obstruction and mostly associated with consumption of cocaine. The patient was advised against the cocaine consumption and will be discharged to home in stable condition and should follow-up with her PCP as outpatient. The patient has multiple other medical issues including morbid obesity, hypertension, hyperlipidemia, bipolar disorder, hypothyroidism, anxiety and depression and non insulin requiring diabetes mellitus and cocaine abuse. Counseling regarding the morbid obesity and the necessity of following a healt hier diet and lifestyle as well as necessity of abstinence from cocaine was given. The patient has already been on medical therapy for her other medical issues which were continued. Disposition. The patient will be discharged to home in stable condition. She will follow-up with her PCP as outpatient. Again her problems are primarily due to a poor lifestyle and until she does notbring significant improvement in her life habits, she is at risk of having similar problems over and over. Surgeries performed during stay: * No surgery found * Consults: Treatment Team: Consulting Physician: Sedrick Ramirez Jr., MD Exam Day of Discharge: Temp Av.7 ??F (36.5 ??C) Min: 97.2 ??F (36.2 ??C) Max: 98.1 ??F (36.7 ??C) BP Min: 133/78 Max: 142/76 Pulse Av.7 Min: 98 Max: 110 Resp Av Min: 20 Max: 20 SpO2 Av % Min: 94 % Max: 99 % Body mass index is 48.31 kg/m??. Exam: General: Well developed, well nourished, in no distress, morbidly obese Skin: Normal appearance, normal turgor, no rashes HEENT: Normocephalic, atraumatic, no flaring Eyes: nonicteric, intact extra occular movement, PERRL Neck: normal, supple, no lymphadenopathy Heart: regular rate and rhythm, S1, S2 normal, no murmur, click, rub or gallop Lungs: clear to ausculation, normal respirations, normal precautions Abdominal: Distended, bowel sounds are present but hypoactive : external genitalia normal in appearance Extremities: no deformities, joint mobility appears intact, no clubbing Neuro: Non-focal, CN intact, sensory and motor intact Psychological: alert and oriented X3, appropriate mood and affect, Intact judgement and memory Lab / Imaging Review: Lab Results Component Value Date WBC 8.25 09/08/2021 HEMOGLOBIN 11.9 (L) 09/08/2021 HEMATOCRIT 37.9 09/08/2021 PLATELETCNT 220 09/08/2021 MCV 95.9 09/08/2021 Lab Results Component Value Date SODIUM 140 09/08/2021 POTASSIUM 3.6 09/08/2021 CHLORIDE 104 09/08/2021 CO2VEN 27 09/08/2021 ANIONGAP 12.6 09/08/2021 GLUCOSE 133 (H) 09/08/2021 BUN 10 09/08/2021 CREATININE 0.46 (L) 09/08/2021 BCRATIO8 22 (H) 09/08/2021 TOTALPROTEIN 7.4 09/06/2021 ALBUMIN 4.3 09/06/2021 CALCIUM 8.1 (L) 09/08/2021 TBIL <0.3 09/06/2021 SGOTAST 17 09/06/2021 SGPTALT 24 09/06/2021 ALKALINEPHO 100 09/06/2021 GFRNA >60 09/08/2021 GFRA >60 09/08/2021 Lab Results Component Value Date GLUCOSEPOCT 110 (H) 09/08/2021 Lab Results Component Value Date INR 1.4 (H) 10/11/2018 PTP 16.8 (H) 10/11/2018 Lab Results Component Value Date HGBA1C 5.7 08/04/2021 Lab Results Component Value Date EYWBKGAV34 251 08/25/2015 No results found for: CPK, CPKI, CKMB, CKMBNI, CKMBPOCT, CKMBRELINDX, TROPONINI, POCTRP Lab Results Component Value Date FERRITIN 18 08/25/2015 No components found for: FOLATE No results found for: PHARTERIAL, PO2ART, XNI2LIP, CO2ART, O2ART Lab Results Component Value Date LACTICA 0.6 02/22/2021 XR ABDOMEN KUB FLAT PLATE Result Date: 09/07/2021 IMPRESSION: Enteric tube terminates in the stomach. XR LUMBAR SPINE 2 OR 3 VIEWS Result Date: 09/06/2021 IMPRESSION: 1. Grade 1 anterolisthesis of L5-S1 with severe degenerative disc disease at that level. XR SACROILIAC JOINTS, COMPLETE Result Date: 09/06/2021 IMPRESSION: 1. Mild sacroiliac joint osteoarthritis. XR SMALL BOWEL FOLLOW THROUGH Result Date: 09/07/2021 IMPRESSION: Small-bowel obstruction. Oral contrast reaches the colon in 4 hours, indicating lack ofcomplete obstruction. CT ABDOMEN PELVIS W/ CONTRAST Result Date: 09/07/2021 IMPRESSION: 1. Moderate dilatation of the proximal and mid small bowel with multiple air-fluid levels identified. There is a transition zone in the mid abdomen, and the distal small bowel is decompressed. The findings suggest at least partial small-bowel obstruction. Consider adhesions. The findings were called to Dr. Smith at 12:40 a.m. on 09/07/2021. 2. Multiple hepatic cysts. 3. Surgical absence of the gallbladder. 4. Diverticulosis. No evidence of diverticulitis. DISCHARGE MEDICATION LIST: Medication List CONTINUE taking these medications Aripiprazole 20 MG [...] needed for Nausea - 1st line. pregabalin 75 MG Caps Commonly known as: LYRICA * sertraline 100 MG Tabs Commonly known as: ZOLOFT * sertraline 50 MG Tabs Commonly known as: ZOLOFT simvastatin 10 MG Tabs Commonly known as: ZOCOR traZODone 50 MG Tabs Commonly known as: DESYREL triamterene-hydrochlorothiazide 37.5-25 MG Tabs Commonly known as: MAXZIDE Trulicity 1.5 MG/0.5ML Sopn Generic drug: Dulaglutide * This list has 2 medication(s) that are the same as other medications prescribed for you. Read thedirections carefully, and ask your doctor or other care provider to review them with you. STOP taking these medications metoprolol Succinate 25 MG Tab-sr-24hr Commonly known as: TOPROL-XL I have spent time coordinating care for this hospital discharge: Greater than 30 minutes spent in coordinating care Thank you very much for allowing the [facility] Adult Hospitalist Service to participate in the care of this patient. If you have any questions, please don't hesitate to call. Signed: Helen Bernstein MD, 09/08/2021, 10:56 AM CDT documented in this encounter Medications at [...] sundays07/08/2021 2 documented as of this encounter Progress Notes * Romel Brice MD - 09/08/2021 11:29 AM CDT General surgery progress note 50-year-old morbid obese female with history of cocaine abuse, admitted with concerns of small-bowel obstruction No major events reported overnight Denies any abdominal pain No nausea or vomiting Passing gas and having diarrhea On exam Awake and alert Chest clear Abdomen soft, not distended not tender Plan Advanced diet to regular Okay to be discharged from surgical standpoint of doing well Needs to stop cocaine abuse Needs to lose weight By: Romel Brice MD; 09/08/2021, 11:30 AM CDT documented in this encounter H&P Notes * Eleanor Whittaker, CORPORATE RELATIONS DIRECTOR, HOSPITAL INSURANCE CLERK - 09/07/2021 2:03 PM CDT Images from the original note were not included. HOSPITALIST ADMISSION HISTORY & PHYSICAL EXAM PATIENT NAME: Alona Kemp, : 1970, MR#[id number] CHIEF COMPLAINT Abdominal pain HPI Alona Kemp is a 50 y.o. female [...] she has had recurrent small bowel obstructions. HOME MEDICATIONS: Prior to Admission Medications Prescriptions Last Dose Informant Patient Reported? Taking? Aripiprazole 20 MG Tablet 09/06/2021 at 8 pm Yes Yes Sig: Take 20 mg by mouth daily. DULoxetine (CYMBALTA) [address] Yael 09/06/2021 at 8am Yes Yes Sig: Take 60 mg by mouth nightly. Trulicity 1.5 MG/0.5ML Solution Pen-injector 09/06/2021 at 8 am Yes Yes Si.5 mg by Subcutaneous route once a week. On sundays baclofen (LIORESAL) 20 MG Tablet 09/06/2021 at 8 pm Yes Yes Sig: Take 20 mg by mouth 2 times daily as needed. irbesartan (AVAPRO) 150 MG Tablet 09/06/2021 at 8 am Yes Yes Sig: Take 150 mg by mouth daily. levothyroxine (SYNTHROID) 50 MCG Tablet 09/06/2021 at 7 am Pharmacy Yes Yes Sig: Take 50 mcg by mouth daily. Indications: Underactive Thyroid metoprolol Succinate (TOPROL-XL) 25 MG TABLET SR 24 HR Not Taking at Unknown time Yes No Sig: Take by mouth daily. Patient not taking: Reported on 09/07/2021 omeprazole (PriLOSEC) 40 MG CAPSULE DELAYED RELEASE 09/06/2021 at 9 pm No Yes Sig: Take 1 Capsule by mouth daily. ondansetron (ZOFRAN-ODT) 4 MG TABLET DISPERSIBLE 09/06/2021 at 8pm No Yes Sig: Take 1 Tablet by mouth every 6 hours as needed for Nausea - 1st line. pregabalin (LYRICA) 75 MG Capsule 09/06/2021 at 8 am Yes Yes Sig: Take 75 mg by mouth 2 times daily. sertraline (ZOLOFT) 100 MG Tablet 09/06/2021 at 8 am Yes Yes Sig: Take 150 mg by mouth daily. sertraline (ZOLOFT) 50 MG Tablet Yes No Sig: Take 50 mg by mouth daily. simvastatin (ZOCOR) 10 MG Tablet 09/06/2021 at 8 pm Yes Yes Sig: Take 10 mg by mouth every evening. traZODone (DESYREL) 50 MG Tablet 09/06/2021 at 8 am Yes Yes Sig: Take 100 mg by mouth nightly. triamterene-hydrochlorothiazide (MAXZIDE) 37.5-25 MG Tablet 09/06/2021 at 8 am Yes Yes Sig: Take 1 Tab by mouth daily. Facility-Administered Medications: None ALLERGIES: Allergies Description Type Start Date End Date Comment Verified Academic Dean Risperidone Intolerance 09-Aug-2017 Severity: High Reactions: Other (see Comments) Comment: Violentand agitated. Jarvis Hopkins, PAC (Physician Foundation Drill Operator Helper) Sulfa Antibiotics Allergy 01-Sep-2015 Severity: Medium Reactions: Sandra Quinn RN Topiramate Intolerance 09-Aug-2017 Severity: High Reactions: Other (see Comments) Comment: Difficulty with speech and word finding. Jarvis Hopkins, MIKE (Physician Foundation Drill Operator Helper) Ziprasidone Hcl Unknown 09-Aug-2017 Severity: High Reactions: Other (see Comments) Comment: Abnormal mouth movements Jarvis Hopkins, MIKE (Physician Foundation Drill Operator Helper) REVIEW OF SYSTEMS: Review of Systems Constitutional: Positive for malaise/fatigue. Negative for chills, diaphoresis and fever. Eyes: Negative for blurred vision and double vision. Respiratory: Positive for shortness of breath. Negative for cough. Cardiovascular: Negative for chest pain and leg swelling. Gastrointestinal: Positive for nausea. Negative for abdominal pain, constipation, diarrhea and vomiting. Genitourinary: Negative for dysuria, frequency and urgency. Musculoskeletal: Positive for myalgias. Negative for falls. Neurological: Positive for dizziness and headaches. Negative for tingling, sensory change, loss of consciousness and weakness. PAST MEDICAL HISTORY She has a past medical history of Adenomatous colon polyp, Anxiety, Bipolar disorder ([facility]), Cocaineabuse ([facility]), DDD (degenerative disc disease), lumbar, Depression, GERD (gastroesophageal reflux disease), HLD (hyperlipidemia), HTN (hypertension), Hypothyroid, IBS (irritable bowel syndrome), Morbidobesity ([facility]), NAFLD (nonalcoholic fatty liver disease), Nephrocalcinosis, KWABENA (obstructive sleep apnea), SBO (small bowel obstruction) ([facility]) (09/2018), and Vitamin D deficiency. PAST SURGICAL HISTORY: has a past surgical history that includes Section (1994); Cholecystectomy (2004); EGD (2012?); Colonoscopy; [place] Tooth Extraction (1991); Colonoscopy (N/A, 11/16/2018); and [...] drink alcohol. PHYSICAL EXAM : VITALS: BP 133/86 Pulse (!) 111 Temp 98.1 ??F (36.7 ??C) Resp 20 Ht 5' 2 (1.575 m) Wt 264 lb 2 oz (119.8 kg) LMP 11/12/2019 SpO2 97% BMI 48.31 kg/m?? Temp (24hrs), Av.2 ??F (36.8??C), Min:97.9 ??F (36.6 ??C), Max:98.5 ??F (36.9 ??C) Weight: Wt Readings from Last 1 Encounters: 09/07/21 264 lb 2 oz (119.8 kg) Body mass index is 48.31 kg/m??. EXAM: Physical Exam Vitals and nursing note reviewed. Constitutional: Appearance: Normal appearance. She is morbidly obese. Comments: Adult female, lying in bed in no acute distress HENT: Head: Normocephalic and atraumatic. Nose: Left Nostril: Foreign body present. Comments: NGT in place Eyes: General: Lids are normal. Conjunctiva/sclera: Conjunctivae normal. Neck: Trachea: Trachea normal. Cardiovascular: Rate and Rhythm: Regular rhythm. Tachycardia present. Pulses: Normal pulses. Heart sounds: Normal heart sounds. Pulmonary: Effort: Pulmonary effort is normal. Breath sounds: Normal breath sounds. Abdominal: General: Bowel sounds are normal. There is distension. Palpations: Abdomen is soft. Tenderness: There [...] Judgment: Judgment normal. DATA REVIEW : XR ABDOMEN KUB FLAT PLATE Result Date: 09/07/2021 IMPRESSION: Enteric tube terminates in the stomach. XR LUMBAR SPINE 2 OR 3 VIEWS Result Date: 09/06/2021 IMPRESSION: 1. Grade 1 anterolisthesis of L5-S1 with severe degenerative disc disease at that level. XR SACROILIAC JOINTS, COMPLETE Result Date: 09/06/2021 IMPRESSION: 1. Mild sacroiliac joint osteoarthritis. XR SMALL BOWEL FOLLOW THROUGH Result Date: 09/07/2021 IMPRESSION: Small-bowel obstruction. Oral contrast reaches the colon in 4 hours, indicating lack ofcomplete obstruction. CT ABDOMEN PELVIS W/ CONTRAST Result Date: 09/07/2021 IMPRESSION: 1. Moderate dilatation of the proximal and mid small bowel with multiple air-fluid levels identified. There is a transition zone in the mid abdomen, and the distal small bowel is decompressed. The findings suggest at least partial small-bowel obstruction. Consider adhesions. The findings were called to Dr. Smith at 12:40 a.m. on 09/07/2021. 2. Multiple hepatic cysts. 3. Surgical absence of the gallbladder. 4. Diverticulosis. No evidence of diverticulitis. EK11/03/2020 Sinus Tachycardia 113 UA: Results for orders placed or performed during the hospital encounter of 09/06/21 URINALYSIS REFLEX IF INDICATED BY ABNORMAL RESULTS Result Value Ref Range Status SPECIFIC GRAVITY 1.010 1.003 - 1.030 Final URINE PH 5.0 5.0 - 9.0 Final WBC ESTERASE 25 /ul (A) Negative Final NITRITE Negative Negative Final PROTEIN, RANDOM URINE 30 mg/dL (A) Negative Final URINE GLUCOSE, QUAL Negative Negative Final URINE KETONES Negative Negative Final UROBILINOGEN Normal Normal mg/dL Final URINE BLOOD 10 /uL (A) Negative dylan/ul Final URINALYSIS COLOR Yellow Final URINALYSIS CLARITY Slightly Cloudy Final WBC (Urine) 11-20 (A) Negative, 0-5 /hpf Final URINE RBC'S 6-10 (A) Negative, 0-2 /hpf Final EPITHELIAL CELLS Large amount squamous /lpf Final BACTERIA, URINE Moderate (A) Negative /hpf Final CBC: Lab Results Component Value Date WBC 16.07 (H) 09/07/2021 RBC 4.47 09/07/2021 HEMOGLOBIN 13.6 09/07/2021 HEMATOCRIT 42.2 09/07/2021 PLATELETCNT 274 09/07/2021 CMP: Lab Results Component Value Date SODIUM 142 09/07/2021 POTASSIUM 3.9 09/07/2021 CHLORIDE 102 09/07/2021 CO2VEN 27 09/07/2021 ANIONGAP 16.9 09/07/2021 GLUCOSE 139 (H) 09/07/2021 BUN 17 09/07/2021 CREATININE 0.62 09/07/2021 BCRATIO8 27 (H) 09/07/2021 TOTALPROTEIN 7.4 09/06/2021 ALBUMIN 4.3 09/06/2021 CALCIUM 9.2 09/07/2021 TBIL <0.3 09/06/2021 SGPTALT 24 09/06/2021 ALKALINEPHO 100 09/06/2021 GFRNA >60 09/07/2021 GFRA >60 09/07/2021 Outside reports reviewed: ER records, radiology reports, lab reports, xray reports, historical medical records. ASSESSMENT: Active Hospital Problems Diagnosis Date Noted ??? Small bowel obstruction (HCC) 08/03/2021 ??? Anxiety 08/03/2021 ??? Type 2 diabetes mellitus, without long-term current use of insulin (HCC) 08/03/2021 ??? Morbid obesity with BMI of 45.0-49.9, adult ([facility]) 02/20/2021 ??? Cocaine use 10/03/2018 ??? GERD (gastroesophageal reflux disease) ??? Hypertension ??? Hyperlipidemia ??? Bipolar disorder (HCC) ??? Depression ??? Hypothyroid Resolved Hospital Problems No resolved problems to display. PLAN: Small Bowel Obstruction -CT abd/pelvis revealed moderate dilatation of the proximal and mid small bowel with multiple air-fluid levels identified, there is a transition zone in the mid abdomen, and the distal small bowel isdecompressed.The findings suggest at least partial small-bowel obstruction. -General surgery consult, appreciate recommendations -initially NPO with bowel rest; follow up SBO films indicate movement of contrast into the colon. -NGT removal with clear liquid diet -IVF -Anti-emetics -Pain control -Monitor CBC Diabetes mellitus -Type 2 -Glucose= 139 -On weekly Trulicity, last dose 09/05/21 -Initiate low dose meal time Humalog -Mild, modified nightly SSI -Accu checks AC/HS -Diabetic diet once diet is advanced HTN -Stable BP, last BP= 133/86 -Continue home dose medications -Monitor hemodynamic status Hyperlipidemia -Continue home dose statin GERD -Convert to IV PPI Hypothyroidism -Continue home dose levothyroxine Depression/Anxiety -Stable -Continue home dose medication Morbid obesity -BMI= 48.31 -Patient would benefit from weight loss through diet and exercise Home meds to be resumed as appropriate. Other changes to meds to be made based on progress during hospitalization. Code Status: CPR-Full Treatment DVT Prophylaxis: Sequential Compression Devices and Lovenox 40mg every 12 hours Consult with: General surgery Advance Care Planning: Aggregate face to face time discussing end of life advance care planning with patient 16 minutes. Discussed CPR/Intubation/Treatment Goals/Quality of life/Intensity of Care. Patient desires: CPR-Full Treatment Eleanor Whittaker APRN, CNP 09/07/2021 2:04 PM CDT Primary Care Physician: DAJA CARBALLO MD Cosigned by Helen Bernstein MD at 09/07/2021 4:55 PM CDT Associated attestation - Helen Bernstein MD - 09/07/2021 4:55 PM CDT ADULT HOSPITALIST ATTENDING I have seen and evaluated the patient and discussed the patient's management with BUILDING RENTAL SUPERINTENDENT Eleanor Whittaker. I agree with the history, physical, assessment, and plan as outlined in the attached note. The patient is now tolerating clear liquids. The NG tube is clamped and it can potentially be removed if there is evidence of bowel activity. Helen Bernstein MD 09/07/2021 4:55 PM CDT documented in this encounter Consult Notes * Romel Brice MD - 09/07/2021 11:57 AM CDTAssociated Order(s): IP CONSULT TO GENERAL SURGERY Images from the original note were not included. GENERAL SURGERY CONSULTATION NOTE Admit Date: 09/06/2021 Date of Consultation: 09/07/2021 Admitting Diagnosis: Small bowel obstruction (HCC) [P20.711] Reason for Consultation: management recommendations. Assessment Assessment: Abdominal pain Consult for small-bowel obstruction Morbid obese Cocaine abuse Bipolar disorder Hypertension and hyperlipidemia Obstructive sleep apnea History of cholecystectomy History of Co-morbidities include: HTN, IBS. Prior Anesthesia problems: None Advance Directives: Full Code Plan Recommendations: No acute surgical intervention required at this time I have personally review her imaging with our radiologist Small-bowel follow-through today Serial abdominal exams She needs to lose weight, stop cocaine abuse Diagnostic Studies: CT scan reviewed by me, no free air, some bowel distension Thank you very much, for allowing me to participate in the care of this patient. If you have any questions, please do not hesitate to call. Subjective Subjective: Alona Kemp is a 50 y.o. female admitted by Helen Bernstein MD, and consultation requested by ER physician. HPI: This is a 50-year-old morbid obese patient with history of cocaine abuse, cholecystectomy and , seen by me 1 month ago with complaints of small- bowel obstruction. At that time she had small-bowel follow-through which was normal. Now she presents via the emergency department with complaints of diffuse abdominal pain, no nausea, no vomiting, had normal bowel movement yesterday. CT scan was concerning for small-bowel obstruction and general surgery was consulted. She last took cocaine 5 days ago. Principal Problem: Small bowel obstruction (HCC) PMHx: She has a past medical history of Adenomatous colon polyp, Anxiety, Bipolar disorder (HCC), Cocaine abuse (HCC), DDD (degenerative disc disease), lumbar, Depression, GERD (gastroesophageal reflux disease), HLD (hyperlipidemia), HTN (hypertension), Hypothyroid, IBS (irritable bowel syndrome), Morbid obesity (HCC), NAFLD (nonalcoholic fatty liver disease), Nephrocalcinosis, KWABENA (obstructive sleep apnea), SBO (small bowel obstruction) ([facility]) (09/2018), and Vitamin D deficiency. PSHx: Her has a past surgical history that includes Section (1994); Cholecystectomy (2004); EGD (2012?); Colonoscopy; [place] Tooth Extraction (1991); Colonoscopy (N/A, 11/16/2018); and Upper Gastrointestinal Endoscopy (N/A, 02/06/2019). SHx: She reports that she has never smoked. She has never used smokeless tobacco. She reports current drug use. Drug: Cocaine. She reports that she does not drink alcohol. FHx: Her family history includes Depression in her brother and mother; Diabetes in her maternal uncle and mother; Hypertension in her mother; No Known Problems in her daughter; Obstructive Sleep Apnea in her brother. Allergies: Allergies Description Type Start Date End Date Comment Verified Academic Dean Risperidone Intolerance 09-Aug-2017 Severity: High Reactions: Other (see Comments) Comment: Violentand agitated. Jarvis Hopkins PAC (Physician Foundation [employer]) Sulfa Antibiotics Allergy 01-Sep-2015 Severity: Medium Reactions: Hives Sandra Bautista RN Topiramate Intolerance 09-Aug-2017 Severity: High Reactions: Other (see Comments) Comment: Difficulty with speech and word finding. Jarvis Hopkins PAC ([employer]) Ziprasidone Hcl Unknown 09-Aug-2017 Severity: High Reactions: Other (see Comments) Comment: Abnormal mouth movements Jarvis Hopkins PAC ([employer]) MEDS: Current Facility-Administered Medications: ??? 0.9 % sodium chloride solution ??? acetaminophen (TYLENOL) tablet 650 mg OR acetaminophen (TYLENOL) suppository 650 mg ??? Morphine Sulfate (PF) SOLN 2 mg ??? pantoprazole (PROTONIX) injection 40 mg ??? Prochlorperazine Edisylate (COMPAZINE) injection 10 mg Prior to Admission Medications Prescriptions Last Dose Informant Patient Reported? Taking? Aripiprazole 20 MG Tablet 09/06/2021 at 8 pm Yes Yes Sig: Take 20 mg by mouth daily. DULoxetine (CYMBALTA) [address] Conley 09/06/2021 at 8am Yes Yes Sig: Take 60 mg by mouth nightly. Trulicity 1.5 MG/0.5ML Solution Pen-injector 09/06/2021 at 8 am Yes Yes Si.5 mg by Subcutaneous route once a week. On sundays baclofen (LIORESAL) 20 MG Tablet 09/06/2021 at 8 pm Yes Yes Sig: Take 20 mg by mouth 2 times daily as needed. irbesartan (AVAPRO) 150 MG Tablet 09/06/2021 at 8 am Yes Yes Sig: Take 150 mg by mouth daily. levothyroxine (SYNTHROID) 50 MCG Tablet 09/06/2021 at 7 am Pharmacy Yes Yes Sig: Take 50 mcg by mouth daily. Indications: Underactive Thyroid metoprolol Succinate (TOPROL-XL) 25 MG TABLET SR 24 HR Not Taking at Unknown time Yes No Sig: Take by mouth daily. Patient not taking: Reported on 09/07/2021 omeprazole (PriLOSEC) 40 MG CAPSULE DELAYED RELEASE 09/06/2021 at 9 pm No Yes Sig: Take 1 Capsule by mouth daily. ondansetron (ZOFRAN-ODT) 4 MG TABLET DISPERSIBLE 09/06/2021 at 8pm No Yes Sig: Take 1 Tablet by mouth every 6 hours as needed for Nausea - 1st line. pregabalin (LYRICA) 75 MG Capsule 09/06/2021 at 8 am Yes Yes Sig: Take 75 mg by mouth 2 times daily. sertraline (ZOLOFT) 100 MG Tablet 09/06/2021 at 8 am Yes Yes Sig: Take 150 mg by mouth daily. sertraline (ZOLOFT) 50 MG Tablet Yes No Sig: Take 50 mg by mouth daily. simvastatin (ZOCOR) 10 MG Tablet 09/06/2021 at 8 pm Yes Yes Sig: Take 10 mg by mouth every evening. traZODone (DESYREL) 50 MG Tablet 09/06/2021 at 8 am Yes Yes Sig: Take 100 mg by mouth nightly. triamterene-hydrochlorothiazide (MAXZIDE) 37.5-25 MG Tablet 09/06/2021 at 8 am Yes Yes Sig: Take 1 Tab by mouth daily. Facility-Administered Medications: None Review of Systems: A 14 point comprehensive review of systems was negative, except as documented in HPI. Objective Objective: VITALS: BP 133/86 Pulse (!) 111 Temp 98.1 ??F (36.7 ??C) Resp 20 Ht 5' 2 (1.575 m) Wt 264 lb 2 oz (119.8 kg) LMP 11/12/2019 SpO2 97% BMI 48.31 kg/m?? Physical Exam: BP 133/86 Pulse (!) 111 Temp 98.1 ??F (36.7 ??C) Resp 20 Ht 5' 2 (1.575 m) Wt 264 lb 2 oz (119.8 kg) LMP 11/12/2019 SpO2 97% BMI 48.31 kg/m?? General appearance alert, cooperative, no distress, appears stated age Head Normocephalic, without obvious abnormality, atraumatic Eyes conjunctivae/corneas clear. PERRL, EOM's intact. Ears normal Nose Nares normal. Septum midline. Mucosa normal. No drainage or sinus tenderness. NG tube in placeclamped at this moment. Throat Lips, mucosa, and tongue normal. Teeth and gums normal Neck supple, symmetrical, trachea midline, no adenopathy, thyroid: not enlarged, symmetric, no tenderness/mass/nodules, no carotid bruit and no JVD Back symmetric, no curvature. ROM normal. No CVA tenderness Lungs clear to auscultation bilaterally Breasts no masses, tenderness Heart regular rate and rhythm, S1, S2 normal, no murmur, click, rub or gallop Abdomen soft, on-tendern. Bowel sounds normal. No masses, No organomegaly Pelvic Deferred Extremities extremities normal, atraumatic, no cyanosis or edema Pulses 2+ and symmetric Skin Skin color, texture, turgor normal. No rashes or lesions Lymph nodes Cervical, supraclavicular, and axillary nodes normal. Neurologic Normal I&O: Intake/Output Summary (Last 24 hours) at 09/07/2021 1157 Last data filed at 09/07/2021 0737 Gross per 24 hour Intake 1328.33 ml Output 150 ml Net 1178.33 ml Data Review: CBC: Lab Results Component Value Date WBC 16.07 (H) 09/07/2021 RBC 4.47 09/07/2021 HEMOGLOBIN 13.6 09/07/2021 HEMATOCRIT 42.2 09/07/2021 PLATELETCNT 274 09/07/2021 BMP: Lab Results Component Value Date GLUCOSE 139 (H) 09/07/2021 SODIUM 142 09/07/2021 POTASSIUM 3.9 09/07/2021 CHLORIDE 102 09/07/2021 CO2VEN 27 09/07/2021 BUN 17 09/07/2021 CREATININE 0.62 09/07/2021 CALCIUM 9.2 09/07/2021 Coagulation: Lab Results Component Value Date PTP 16.8 (H) 10/11/2018 INR 1.4 (H) 10/11/2018 Outside reports reviewed: none. Additional Comments: None By: Romel Brice MD, 09/07/2021, 11:57 AM CDT Attending Provider: Helen Bernstein MD Primary Care Physician: DAJA CARBALLO MD documented in this encounter ED Notes * Yaima Thakkar RN - 09/07/2021 2:41 AM CDT Patient transported to room 244 via wheelchair. No distress or deterioration noted. PIV and NG intact. All belongings sent with patient. * Yaima Thakkar RN - 09/07/2021 2:07 AM CDT Xray at bedside * Yaima Thakkar RN - 09/07/2021 1:55 AM CDT NG tube placed at 50cm. Patient tolerated well. KUB being ordered for placement confirmation. * Yaima Thakkar RN - 09/07/2021 1:21 AM CDT Pt medicated per provider orders. Pt educated on intended effects and side effects of medication and verbalized understanding, able to provide teach back of education. * Jhon Smith MD - 09/06/2021 11:16 PM CDTAssociated Order(s): Critical Care Chief Complaint Patient presents with ??? Abdominal Pain Patient is a 50-year-old female history of small-bowel obstruction approximately a month ago who returns again today with distention of her abdomen. She states the symptoms have been going on for thepast 4-5 hours. She denies being able have a bowel movement or passing any gas at this time. She has had associated nausea. She has not had any fever or chills. No current facility-administered medications for this encounter. [...] by mouth daily. Indications: Underactive Thyroid ??? metoprolol Succinate (TOPROL-XL) 25 MG TABLET SR 24 HR Take by mouth daily. ??? omeprazole (PriLOSEC) 40 MG CAPSULE DELAYED RELEASE Take 1 Capsule by mouth daily. 90 Capsule 0 ??? ondansetron (ZOFRAN-ODT) 4 MG TABLET DISPERSIBLE Take 1 Tablet by mouth every 6 hours as neededfor Nausea - 1st line. 10 Tablet 0 ??? pregabalin (LYRICA) 75 MG Capsule Take 75 mg by mouth 2 times daily. ??? sertraline (ZOLOFT) 100 MG Tablet Take 150 mg by mouth daily. ??? simvastatin (ZOCOR) [...] CHOLECYSTECTOMY 2005 laparoscopic ??? COLONOSCOPY [facility] (Does not remember the ) ??? COLONOSCOPY N/A 11/16/2018 Procedure: COLONOSCOPY - POLYPS, BIOPSIES; Surgeon: Damian Gallardo DO; Location: [facility]; Service: Gastroenterology ??? EGD 2012? [facility] ??? UPPER GASTROINTESTINAL ENDOSCOPY N/A 02/06/2019 Procedure: EGD, SMALL BOWEL BIOSY, GASTRIC POLYP, SAMANTHA TEST; Surgeon: Damian Gallardo DO; Location: [facility]; Service: Gastroenterology ??? WISDOM [...] Narrative ??? Not on file BP (!) 130/99 Pulse (!) 119 Temp 98.5 ??F (36.9 ??C) (Tympanic) Resp 18 Ht 5' 2 (1.575 m) Wt 248 lb (112.5 kg) LMP 11/12/2019 SpO2 95% BMI 45.36 kg/m?? Review of Systems Constitutional: Negative for activity change, appetite change, chills and fever. HENT: Negative for congestion, ear pain, rhinorrhea, sore throat and trouble swallowing. Eyes: Negative for pain and visual disturbance. Respiratory: Negative for cough, shortness of breath and wheezing. Cardiovascular: Negative for chest pain. Gastrointestinal: Positive for abdominal pain and nausea. Negative for diarrhea and vomiting. Genitourinary: Negative for difficulty [...] diaphoretic. HENT: Head: Normocephalic and atraumatic. Eyes: Conjunctiva/sclera: Conjunctivae normal. Pupils: Pupils are equal, round, and reactive to light. Cardiovascular: Rate and Rhythm: Normal rate and regular rhythm. Heart sounds: Normal heart sounds. No murmur heard. No friction rub. No gallop. Pulmonary: Effort: Pulmonary effort is normal. No respiratory distress. Breath sounds: Normal breath sounds. No wheezing or rales. Abdominal: General: Bowel sounds are decreased. There is distension. Palpations: Abdomen is soft. There is no hepatomegaly or splenomegaly. Tenderness: There is generalized abdominal tenderness. There is no guarding or rebound. Hernia: No hernia is present. Musculoskeletal: General: No tenderness or deformity. Normal range of motion. Cervical back: Normal range of motion and neck supple. Lymphadenopathy: Cervical: No cervical adenopathy. Skin: General: Skin is warm and dry. Coloration: Skin is not pale. Findings: No erythema or rash. Neurological: Mental Status: She is alert and oriented to person, place, and time. Psychiatric: Behavior: Behavior normal. Thought Content: Thought content normal. Judgment: Judgment normal. Critical Care Performed by: Jhon Smith MD Authorized by: Jhon Smith MD Critical care provider statement: Critical care time (minutes): 35 Critical care time was exclusive of: Separately billable procedures and treating other patients Critical care was necessary to treat or prevent imminent or life-threatening deterioration of the following conditions: Small-bowel obstruction. Critical care was time spent personally by me on the following activities: Development of treatmentplan with patient or surrogate, discussions with consultants, evaluation of patient's response to treatment, examination of patient, obtaining history from patient or surrogate, review of old charts,re- evaluation of patient's condition, ordering and review of radiographic studies, ordering and review of laboratory studies and ordering and performing treatments and interventions I assumed direction of critical care for this patient from another provider in my specialty: no Care discussed with: admitting provider Imaging Results CT ABDOMEN PELVIS W/ CONTRAST (Final result) Result time 09/07/21 00:44:20 Final result by Anjum Pantoja MD (09/07/21 00:44:20) Impression: IMPRESSION: 1. Moderate dilatation of the proximal and mid small bowel with multiple air-fluid levels identified. There is a transition zone in the mid abdomen, and the distal small bowel is decompressed. The findings suggest at least partial small-bowel obstruction. Consider adhesions. The findings were called to Dr. Smith at 12:40 a.m. on 09/07/2021. 2. Multiple hepatic cysts. 3. Surgical absence of the gallbladder. 4. Diverticulosis. No evidence of diverticulitis. Narrative: EXAM DESCRIPTION: CT ABDOMEN PELVIS W/ CONTRAST REASON FOR STUDY: Bowel obstruction high-grade suspected . Upper abdominal pain for 5 hours. Previous history of partial obstruction. Upper abdomen firm upon palpation. Nausea. TECHNIQUE: CT scan of the abdomen and pelvis performed with intravenous and without oral contrast using helical scanning technique with dynamic intravenous contrast injection. Reconstructed coronal and sagittal MPR images reviewed. All images stored on PACS. Automated exposure control was used as a dose optimization technique for this examination. CONTRAST TYPE/DOSE: 125 cc Isovue 370 injected via right antecubital COMPARISON: 08/03/2021 FINDINGS: LOWER CHEST: No significant pulmonary abnormalities. No effusion. LIVER: Normal size. Multiple hepatic cysts are unchanged. GALLBLADDER: Surgically absent. BILE DUCTS: No intrahepatic or extrahepatic ductal dilatation. SPLEEN: Normal size. No focal lesions. PANCREAS: No identified cystic or solid masses. No significant calcifications. No adjacent inflammation or peripancreatic fluid collections. Pancreatic duct not dilated. ADRENALS: Normal. KIDNEYS/URINARY TRACT: No identified significant cystic or solid masses. Punctate nonobstructing bilateral renal stones. No hydronephrosis or hydroureter. Symmetric enhancement. Urinary bladder is unremarkable. GI: There is moderate dilatation of the proximal and mid small bowel with multiple air-fluid levels identified. There is a transition zone in the mid abdomen, and the distal small bowel is decompressed. Findings suggest at least partial small-bowel obstruction. Consider adhesions. The colon is fluid filled and normal in caliber. Minimal diverticulosis without evidence of diverticulitis. Normal appendix. PERITONEUM: No ascites or free air. RETROPERITONEUM: No mass or adenopathy. REPRODUCTIVE: No significant abnormality. VASCULATURE: No abdominal aortic aneurysm. MUSCULOSKELETAL: No significant abnormality. 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 There is significant degenerative change at the L5-S1 disc space with vacuum phenomenon and endplate sclerosis and cyst formation. OTHER: No other abnormality. THIS IS AN ELECTRONICALLY VERIFIED FINAL REPORT 09/07/2021 12:41 AM - Electronically signed by Anjum Pantoja M.D. KT: JARRED Report ID: [id number] Reading Location: [place] [address] Labs Reviewed CMP (COMPREHENSIVE METABOLIC PANEL) - Abnormal; Notable for the following components: Result Value CHLORIDE 98 (*) GLUCOSE 134 (*) BUN/CREATININE RATIO 23 (*) All other components within normal limits CBC WITH AUTO DIFFERENTIAL - Abnormal; Notable for the following components: WBC 16.73 (*) NEUTROPHILS 88.9 (*) LYMPHOCYTES 6.8 (*) MONOCYTES 3.1 (*) ABSOLUTE NEUTROPHILS 14.87 (*) ABSOLUTE LYMPHOCYTES 1.13 (*) All other components within normal limits LIPASE - Normal COMPLETE BLOOD COUNT (CBC) WITH DIFF Narrative: The following orders were created for panel order CBC with Diff [id number]. Procedure Abnormality Status --------- ------ CBC with Auto Differential[[id number]] Abnormal Final result Please view results for these tests on the individual orders. URINALYSIS REFLEX IF INDICATED BY ABNORMAL RESULTS MDM Number of Diagnoses or Management Options Amount and/or Complexity of Data Reviewed Clinical lab tests: ordered and reviewed Tests in the radiology section of CPT??: ordered and reviewed Risk of Complications, Morbidity, and/or Mortality Presenting problems: moderate Diagnostic procedures: moderate Management options: moderate General comments: Differential diagnosis: Small-bowel obstruction, diverticulitis cuff of perforated above Reviewed: previous chart, nursing note and vitals Interpretation: labs and CT scan Clinical Impression 1. Small bowel obstruction (HCC) Patient presents emergency room with abdominal pain. Labs were obtained came back with an elevated white count of 16.73 1000 a left shift. CMP was unremarkable. Lipase was normal. CT scan with contrast revealed moderate dilation of the proximal and mid small bowel with multiple air-fluid levels cons istent with small-bowel obstruction. I reviewed these findings with Dr. Ramirez our surgeon on-call. He accepts the patient for consultation I spoke to Carrie [facility] for Dr. Bernstein. She accepts patient for full admission. * Yaima Thakkar RN - 09/06/2021 10:33 PM CDT Patient to ER via [facility] c/o upper abdominal pain x 5 hours. Hx of partial obstruction. Upper abdomen firm upon palpation. States she has regular bowel movements but some nausea. A&Ox4. PIV established by EMS. Labs being drawn. * Natalie Oleary CNA - 09/06/2021 10:28 PM CDT Bed: [place] [address] Expected date: 09/06/21 Expected time: 10:28 PM Means of arrival: Ambulance Comments: documented in this encounter Miscellaneous Notes * Interdisciplinary - Tawanna Herrera RN - 09/08/2021 2:41 PM CDT Discharge education gone over with patient. IV removed. Belongings sent home. Patient taken down tofamily car by pulling unit floorhand. * Plan of Care - Tawanna Herrera RN - 09/08/2021 2:41 PM CDT Problem: Adult Inpatient Plan of Care Goal: Plan of Care Review Outcome: Outcome Achieved Goal: Absence of Hospital-Acquired Illness or Injury Outcome: Outcome Achieved Goal: Optimal Comfort and Wellbeing Outcome: Outcome Achieved Goal: Readiness for Transition of Care Outcome: Outcome Achieved Problem: Fluid Deficit (Intestinal Obstruction) Goal: Fluid Balance Outcome: Outcome Achieved Problem: Infection (Intestinal Obstruction) Goal: Absence of Infection Signs and Symptoms Outcome: Outcome Achieved Problem: Nausea and Vomiting (Intestinal Obstruction) Goal: Nausea and Vomiting Relief Outcome: Outcome Achieved Problem: Pain (Intestinal Obstruction) Goal: Acceptable Pain Control Outcome: Outcome Achieved * Interdisciplinary - Tawanna Herrera RN - 09/08/2021 7:47 AM CDT Patient with no c/os of pain, on clear liquid diet. Patient stated she had two BMs last night. Abdomen distended with hypoactive bowel sounds * Plan of Care - Niru Lackey RN - 09/08/2021 5:24 AM CDT Problem: Adult Inpatient Plan of Care Goal: Plan of Care Review Outcome: Ongoing (see interventions/notes) Goal: Absence of Hospital-Acquired Illness or Injury Outcome: Ongoing (see interventions/notes) Goal: Optimal Comfort and Wellbeing Outcome: Ongoing (see interventions/notes) Intervention: Provide Person-Centered Care Flowsheets (Taken 09/08/2021 0241) Trust Relationship/Rapport: care explained Goal: Readiness for Transition of Care Outcome: Ongoing (see interventions/notes) Problem: Fluid Deficit (Intestinal Obstruction) Goal: Fluid Balance Outcome: Ongoing (see interventions/notes) Problem: Infection (Intestinal Obstruction) Goal: Absence of Infection Signs and Symptoms Outcome: Ongoing (see interventions/notes) Problem: Nausea and Vomiting (Intestinal Obstruction) Goal: Nausea and Vomiting Relief Outcome: Ongoing (see interventions/notes) Problem: Pain (Intestinal Obstruction) Goal: Acceptable Pain Control Outcome: Ongoing (see interventions/notes) * Interdisciplinary - Niru Lackey RN - 09/07/2021 8:06 PM CDT PT is resting in bed with her call light in reach and she also has her personal items in reach as also. RN removed PT NG tube this evening and the pt tolerated it well and has had no other issues. Will continue to monitor. * Plan of Care - Romel Brice MD - 09/07/2021 1:40 PM CDT Small-bowel follow-through evaluated by me Contrast reaches colon in 4 hours I am okay with discontinuing nasogastric tube Start clear liquid diet and advanced as tolerated She needs to stop drug abuse Needs weight loss By: Romel Brice MD; 09/07/2021, 1:40 PM CDT * Interdisciplinary - Tawanna Herrera RN - 09/07/2021 1:19 PM CDT Patient walked in hallway by RN NG tube hooked back up to LIS. * Interdisciplinary - Tawanna Herrera RN - 09/07/2021 9:15 AM CDT NG tube clamped for small bowel follow through. * Aleida - Tawanna Herrera RN - 09/07/2021 7:44 AM CDT Patient laying in bed up to C with help. NG tube hooked ot LIS with thick light brown drainage. Patient remains NPO at this time. * Interdisciplinary - Jelani Sears RN - 09/07/2021 4:09 AM CDT Initial Skin Assessment Patient assessed and Plan of Care discussed with Saritha SHEEHAN Wounds noted: none Pressure Prevention and Moisture Management interventions to implement: none Wound care: N/A JELANI SEARS RN documented in this encounter Plan of Treatment Upcoming Encounters Date Type Department Care Team (Late st Contact Info) Description 03/27/2024 8:30 AM [employer] [facility] [address] [place] [address] Burt Eastman MD [address] [address] 03/27/2024 8:30 AM [employer] - 03/27/2024 9:00 AM [employer] [facility] [address] [place] [address] Burt Eastman MD [address] [address] COLONOSCOPY 04/09/2024 1:15 PM [employer] [facility] - [place] [address] [place] [address] Baron Vergara MD [address] [place] [address] Scheduled Orders Name Type Priority Associated Diagnoses Orde r Schedule Pulse Oximetry, Spot PFT Routine WITH VITALS until discontinued starting 09/07/2021 Scheduled Procedures Name Priority Associated Diagnoses Date/Ti me COLONOSCOPY HISTORY OF COLON POLYPS 03/27/2024 8:30 AM [employer] documented as of this encounter Procedures Procedure Name Priority Date/Time Associated Diagnosis Comments POCT GLUCOSE Routine 09/08/2021 11:27 AM CDT POCT GLUCOSE Routine 09/08/2021 7:19 AM CDT CBC WITH AUTO DIFFERENTIAL Routine 09/08/2021 5:15 AM CDT COMPLETE BLOOD COUNT (CBC) WITH DIFF Routine 09/08/2021 5:15 AM CDT BASIC METABOLIC PANEL W/ CALCIUM TOTAL Routine 09/08/2021 5:15 AM CDT POCT GLUCOSE Routine 09/07/2021 8:35 PM CDT POCT GLUCOSE Routine 09/07/2021 4:26 PM CDT POCT GLUCOSE Routine 09/07/2021 3:10 PM CDT SARS-COV-2 BY MOLECULAR Routine 09/07/2021 2:47 PM CDT XR SMALL BOWEL FOLLOW THROUGH Routine 09/07/2021 1:07 PM CDT URINE DRUG SCREEN Routine 09/07/2021 11: 22 AM CDT CBC WITH AUTO DIFFERENTIAL Routine 09/07/2021 4:30 AM CDT COMPLETE BLOOD COUNT (CBC) WITH DIFF Routine 09/07/2021 4:30 AM CDT BASIC METABOLIC PANEL W/ CALCIUM TOTAL Routine 09/07/2021 4:30 AM CDT XR ABDOMEN KUB FLAT PLATE STAT 09/07/2021 2:15 AM CDT URINALYSIS REFLEX IF INDICATED BY ABNORMAL RESULTS STAT 09/07/2021 1:57 AM CDT CULTURE, URINE STAT 09/07/2021 1:[address] ABDOMEN PELVIS W/ CONTRAST STAT 09/07/2021 12:02 AM CDT CRITICAL CARE Routine 09/06/2021 11:16 PM CDT CBC WITH AUTO DIFFERENTIAL STAT 09/06/2021 10:43 PM CDT LIPASE STAT 09/06/2021 10:43 PM CDT CMP (COMPREHENSIVE METABOLIC PANEL) STAT 09/06/2021 10:43 PM CDT COMPLETE BLOOD COUNT (CBC) WITH DIFF STAT 09/06/2021 10:43 PM CDT documented in this encounter Results * (ABNORMAL) POCT Glucose (09/08/2021 11:27 AM CDT) Only the most recent of5 resultswithin the time period is included. Pathologist [facility] GLUCOSE,BEDSID E POCT 117(H) 70 - 99 mg/dL 09/08/2021 11:34 AM CDT [facility] Blood 09/08/2021 11:2 7 AM CDT 09/08/2021 11:34 AM CDT us None Provider POINT OF CARE TESTING Final Resu lt [facility] [address] [place] [address] * (ABNORMAL) CBC with Auto Differential (09/08/2021 5:15 AM CDT) Only the most recent of3 resultswithin the time period is included. Pathologist [facility] WBC 8.25 4.00 - 12.00 10(3)/mcL 09/08/2021 5:38 AM CDT [facility] RBC 3.95 3.80 - 5.30 10(6)/mcL 09/08/2021 5:38 AM CDT [facility] HEMOGLOBIN (HGB) 11.9(L) 12.0 - 15.8 g/dL 09/08/2021 5:38 AM CDT [facility] HEMATOCRIT (HCT) 37.9 36.0 - 47.0 % 09/08/2021 5:38 AM CDT [facility] MCV 95.9 82.0 - 96.0 fL 09/08/2021 5:38 AM CDT [facility] MCH 30.1 26.0 - 34.0 pg 09/08/2021 5:38 AM CDT [facility] MCHC 31.4 31.0 - 36.0 g/dL 09/08/2021 5:38 AM CDT [facility] PLATELET COUNT 220 140 - 440 10(3)/mcL 09/08/2021 5:38 AM CDT [facility] RDW 13.7 11.8 - 15.5 % 09/08/2021 5:38 AM CDT [facility] MPV 11.6 9.7 - 12.4 fL 09/08/2021 5:38 AM CDT [facility] NEUTROPHILS 80.4(H) 47.0 - 73.0 % 09/08/2021 5:38 AM CDT [facility] LYMPHOCYTES 11.9(L) 18.0 - 42.0 % 09/08/2021 5:38 AM CDT [facility] MONOCYTES 5.6 4.0 - 12.0 % 09/08/2021 5:38 AM CDT [facility] EOSINOPHILS 1.9 0.0 - 5.0 % 09/08/2021 5:38 AM CDT [facility] BASOPHILS 0.2 0.0 - 1.0 % 09/08/2021 5:38 AM CDT [facility] ABSOLUTE NEUTROPHILS 6.63 1.60 - 7.70 10(3)/mcL 09/08/2021 5:38 AM CDT [facility] ABSOLUTE LYMPHOCYTES 0.98(L) 1.30 - 3.20 10(3)/mcL 09/08/2021 5:38 AM CDT [facility] ABSOLUTE MONOCYTES 0.46 0.20 - 1.00 10(3)/[facility] 09/08/2021 5:38 AM CDT [facility] ABSOLUTE EOSINOPHIL 0.16 0.00 - 0.40 10(3)/[facility] 09/08/2021 5:38 AM CDT [facility] ABSOLUTE BASOPHILS 0.02 0.00 - 0.10 10(3)/[facility] 09/08/2021 5:38 AM CDT [facility] NRBC PER 100 WBC 0 09/09/19 5:38 AM CDT [facility] Blood Venipuncture / Unknown 09/08/2021 5:15 AM CDT 09/08/2021 5:30 AM CDT us Lashae Higuera CORPORATE RELATIONS DIRECTOR, HOSPITAL INSURANCE CLERK HEMATOLOGY ORDERABLES Final Result [facility] [place] [address] * (ABNORMAL) BMP with Ca, Total (09/08/2021 5:15 AM CDT) Only the most recent of2 resultswithin the time period is included. SODIUM 140 136 - 144 mmol/L 09/08/2021 6:27 AM CDT [facility] POTASSIUM 3.6 3.5 - 5.1 mmol/L 09/08/2021 6:27 AM CDT [facility] CHLORIDE 104 100 - 110 mmol/L 09/08/2021 6:27 AM CDT [facility] CO2, VENOUS 27 22 - 32 mmol/L 09/08/2021 6:27 AM CDT [facility] ANION GAP 12.6 8.0 - 20.0 mmol/L 09/08/2021 6:27 AM CDT [facility] GLUCOSE 133(H) 70 - 99 mg/dL 09/08/2021 6:27 AM CDT [facility] BUN 10 6 - 20 mg/dL 09/08/2021 6:27 AM CDT [facility] CREATININE, BLOOD 0.46(L) 0.60 - 1.10 mg/dL 09/08/2021 6:27 AM CDT [facility] BUN/CREATININE RATIO 22(H) 12 - 20 ratio 09/08/2021 6:27 AM CDT [facility] CALCIUM 8.1(L) 8.9 - 10.3 mg/dL 09/08/2021 6:27 AM CDT [facility] GFR, EST. NONAFRICAN >60 >=60 09/08/2021 6:27 AM CDT [facility] GFR, EST. >60 >=60 09/08/2021 6:27 AM CDT [facility] Comment: Creatinine Clearance is the preferred criteria for selecting drug dose adjustments in renally impaired patients. ??The GFR is provided as additional pertinent clinical information. GFR is reported in mL/min/1.73 sq m. Blood Venipuncture / Unknown 09/08/2021 5:15 AM CDT 09/08/2021 5:31 AM CDT us Lashae Higuera CORPORATE RELATIONS DIRECTOR, HOSPITAL INSURANCE CLERK CHEMISTRY ORDERABLES Final Result [facility] [place] [address] * SARS-COV-2 BY MOLECULAR (09/07/2021 2:47 PM CDT) SARSCOV2 NOT DETECTED (Referenc e Range for this test is Not Detected) [facility] TRE[facility]INO ID NOW 09/07/2021 3:06 PM CDT [facility] Comment:This test was perfor med by a MOLECULAR, NON-PCR method Other NASAL STRUCTURE / Unknown Non-Phlebotomy Collection / Unknown 09/07/2021 2:47 PM CDT 09/07/2021 2:48 PM CDT Narrative [facility] - 09/07/2021 3:06 PM CDT This test has been authorized [...] information for Clinicians can be found at: https://www.fda.gov/media/983532/download Additional information for Patients can be found at: https://www.fda.gov/media/273398/download [facility] Amandeep QUICK MICROBIOLOGY - GENERAL ORDERAB LES Final Result [facility] [place] [address] * XR SMALL BOWEL FOLLOW THROUGH (09/07/2021 1:07 PM CDT) Anatomical Region Laterality Modality GI, Abdomen N/A Digital Radiogra phy 09/07/2021 1:11 PM CDT Impressions 09/07/2021 1:13 PM CDT IMPRESSION: ?? Small-bowel obstruction. ??Oral contrast reaches the colon in 4 hours, indicating lack of complete obstruction. Narrative 09/07/2021 1:13 PM CDT EXAM DESCRIPTION: ?? XR SMALL BOWEL FOLLOW THROUGH REASON FOR STUDY: ?? Sbo COMPARISON: ?? CT abdomen and pelvis 09/06/2021, abdomen radiographs 09/07/2021 FLUOROSCOPY TIME/IMAGE COUNT: Fluoro Time: ??None Image Count: ?? 3 PROCEDURE: Initial radiograph following administration of oral contrast, with subsequent 4 hour radiograph. FINDINGS: There are dilated small bowel loops in keeping with small bowel obstruction. ?? Oral contrast reaches the colon within 4 hours. THIS IS AN ELECTRONICALLY VERIFIED FINAL REPORT 09/07/2021 1:11 PM - Electronically signed by ??Faraz Owens M.D. JR: D: ??09/07/2021 1:11 PM T: ??09/07/2021 1:11 PM Report ID: [id number] Reading Location: ??[id number] Procedure Note Faraz Owens MD - 09/07/2021 EXAM DESCRIPTION: XR SMALL BOWEL FOLLOW THROUGH REASON FOR STUDY: Sbo COMPARISON: CT abdomen and pelvis 09/06/2021, abdomen radiographs 09/07/2021 FLUOROSCOPY TIME/IMAGE COUNT: Fluoro Time: None Image Count: 3 PROCEDURE: Initial radiograph following administration of oral contrast, with subsequent 4 hour radiograph. FINDINGS: There are dilated small bowel loops in keeping with small bowel obstruction. Oral contrast reaches the colon within 4 hours. THIS IS AN ELECTRONICALLY VERIFIED FINAL REPORT 09/07/2021 1:11 PM - Electronically signed by Faraz Owens M.D. JR: Report ID: [id number] Reading Location: [id number] IMPRESSION: Small-bowel obstruction. Oral contrast reaches the colon in 4 hours, indicating lack of complete obstruction. Julito Choudhury MD [facility] FLUOROSCOPY ORDERABLES Final Result * (ABNORMAL) Urine Drug Screen (09/07/2021 11:22 AM CDT) UR AMPHETAMINE NON DETECTED NON DETECTED 09/07/2021 12:11 PM CDT [facility] Comment: FOR MEDICAL USE ONLY. CUTOFF CONCENTRATION FOR DETECTED RESULT: AMPHETAMINE: ??500 NG/ML UR BENZODIAZEPINES NON DETECTED NON DETECTED 09/07/2021 12:11 PM CDT [facility] Comment: FOR MEDICAL USE ONLY. CUTOFF CONCENTRATION FOR DETECTED RESULT: BENZODIAZAPINE: ??100 NG/ML UR COCAINE METABOLITE DETECTED(A) NON DETECTED 09/07/2021 12:11 PM CDT [facility] Comment: FOR MEDICAL USE ONLY. CUTOFF CONCENTRATION FOR DETECTED RESULT: COCAINE: ??300 NG/ML UR OPIATES DETECTED(A) NON DETECTED 09/07/2021 12:11 PM CDT [facility] Comment: FOR MEDICAL USE ONLY. CUTOFF CONCENTRATION FOR DETECTED RESULT: OPIATES: ? 300 NG/ML UR PHENCYCLIDINE NON DETECTED NON DETECTED 09/07/2021 12:11 PM CDT [facility] Comment: FOR MEDICAL USE ONLY. CUTOFF CONCENTRATION FOR DETECTED RESULT: PCP: ? 25 NG/ML UR CANNABINOID NON DETECTED NON DETECTED 09/07/2021 12:11 PM CDT [facility] Comment: FOR MEDICAL USE ONLY. CUTOFF CONCENTRATION FOR DETECTED RESULT: THC (MARIJUANA): 50 NG/ML UR TRICYCLIC ANTIDEPRESS SCREEN NON DETECTED NON DETECTED 09/07/2021 12:11 PM CDT [facility] Comment: FOR MEDICAL USE ONLY. CUTOFF CONCENTRATION FOR DETECTED RESULT: TCA: ??300 NG/ML UR BARBITURATE NON DETECTED NON DETECTED 09/07/2021 12:11 PM CDT [facility] Comment: FOR MEDICAL USE ONLY. CUTOFF CONCENTRATION FOR DETECTED RESULT: BARBITUATES: ? 200 NG/ML Urine Non-Phlebotomy Collection / Unknown 09/07/2021 11:22 AM CDT 09/07/2021 11:27 AM CDT Julito Choudhury MD URINE ORDERABLES Final Result Performing Organization Address City/State/[facility] Co de Phone Number [facility] [address] [place] [address] * XR ABDOMEN KUB FLAT PLATE (09/07/2021 2:15 AM CDT) Anatomical Region Laterality Modality Abdomen N/A Digital Radiogra phy 09/07/2021 2:38 AM CDT Impressions 09/07/2021 2:41 AM CDT IMPRESSION: Enteric tube terminates in the stomach. ?? Narrative 09/07/2021 2:41 AM CDT EXAM DESCRIPTION: ?? XR ABDOMEN KUB FLAT PLATE REASON FOR STUDY: ?? NG tube placement confirmation; ??c/o upper abdominal pain x 5 hours. Hx of partial obstruction. Upper abdomen firm upon palpation. States she has regular bowel movements but some nausea. TECHNIQUE: ??KUB COMPARISON: 09/06/2021 FINDINGS: LINES/TUBES: ??Enteric tube terminates within the stomach. BOWEL: ??Distended small bowel loops. ?? OTHER SOFT TISSUES: ?? Unremarkable. ? BONES: ??Unremarkable. ?? THIS IS AN ELECTRONICALLY VERIFIED FINAL REPORT 09/07/2021 2:38 AM - Electronically signed by ??Ilya Mason M.D. AR: GISSELLE D: ??09/07/2021 2:38 AM T: ??09/07/2021 2:38 AM Report ID: [id number] Reading Location: ??[id number] Procedure Note Ilya Mason MD - 09/07/2021 EXAM DESCRIPTION: XR ABDOMEN KUB FLAT PLATE REASON FOR STUDY: NG tube placement confirmation; c/o upper abdominal pain x 5 hours. Hx of partial obstruction. Upper abdomen firm upon palpation. States she has regular bowel movements but some nausea. TECHNIQUE: KUB COMPARISON: 09/06/2021 FINDINGS: LINES/TUBES: Enteric tube terminates within the stomach. BOWEL: Distended small bowel loops. OTHER SOFT TISSUES: Unremarkable. BONES: Unremarkable. THIS IS AN ELECTRONICALLY VERIFIED FINAL REPORT 09/07/2021 2:38 AM - Electronically signed by Ilya Mason M.D. AR: GISSELLE Report ID: [id number] Reading Location: [id number] IMPRESSION: Enteric tube terminates in the stomach. Jhon Smith MD IMG DIAGNOSTIC ORDERABLES Final Result * Culture, Urine (09/07/2021 1:57 AM CDT) CULTURE RESULTS ESCHERICHIA COLI 09/09/2021 8:47 AM CDT [facility] Comment:PRESUMPTIVE IDENTIFI CATION Urine URINE SPECIMEN COLLECTION, CLEAN CATCH / Unknown Non-Phlebotomy Collection / Unknown 09/07/2021 1:57 AM CDT 09/07/2021 2:00 AM CDT Narrative Organism Antibiotic Method Susceptibility Escherichia coli Ampicillin [facility] V[facility] II <=2 mcg/ml: Susceptible Escherichia coli Ampicillin/sulbactam [facility] VITEK II <=2 mcg/ml: Susceptible Escherichia coli Cefazolin [facility] II <=4 mcg/ml: Susceptible Escherichia coli Cefepime [facility] II <=1 mcg/ml: Susceptible Escherichia coli Ceftriaxone [facility] II <=1 mcg/ml: Susceptible Escherichia coli Gentamicin [facility] II <=1 mcg/ml: Susceptible Escherichia coli Levofloxacin [facility] II <=0.12 mcg/ml: Susceptible Escherichia coli Meropenem [facility] II <=0.25 mcg/ml: Susceptible Escherichia coli Nitrofurantoin [facility] II <=16 mcg/ml: Susceptible Escherichia coli Piperacillin/Tazobactam [facility] II <=4 mcg/ml: Susceptible Escherichia coli Tobramycin [facility] II <=1 mcg/ml: Susceptible Escherichia coli Trimeth/Sulfamethoxazole [facility] I I <=20 mcg/ml: Susceptible us Jhon Smith MD MICROBIOLOGY - GENERAL OR DERABLES Final Result Performing Organization Address City/State/[facility] Co de Phone Number [facility] [address] [place] [address], * (ABNORMAL) URINALYSIS REFLEX IF INDICATED BY ABNORMAL RESULTS (09/07/2021 1:57 AM CDT) SPECIFIC GRAVITY 1.010 1.003 - 1.030 09/07/2021 2:22 AM CDT [facility] URINE PH 5.0 5.0 - 9.0 09/07/2021 2:22 AM CDT [facility] WBC ESTERASE 25 /ul(A) Negative 09/07/2021 2:22 AM CDT [facility] NITRITE Negative Negative 09/07/2021 2:22 AM CDT [facility] PROTEIN, RANDOM URINE 30 mg/dL(A) Negative 09/07/2021 2:22 AM CDT [facility] URINE GLUCOSE, QUAL Negative Negative 09/07/2021 2:22 AM CDT [facility] URINE KETONES Negative Negative 09/07/2021 2:22 AM CDT [facility] UROBILINOGEN Normal Normal mg/dL 09/07/2021 2:22 AM CDT [facility] URINE BLOOD 10 /uL(A) Negative dylan/ul 09/07/2021 2:22 AM CDT [facility] URINALYSIS COLOR Yellow 09/08/19 2:22 AM CDT [facility] URINALYSIS CLARITY Slightly Cloudy 09/07/2021 2:22 AM CDT [facility] WBC (Urine) 11-20(A) Negative, 0-5 /hpf 09/07/2021 2:22 AM CDT [facility] URINE RBC'S 6-10(A) Negative, 0-2 /hpf 09/07/2021 2:22 AM CDT [facility] EPITHELIAL CELLS Large amount squamous /lpf 09/07/2021 2:22 AM CDT [facility] BACTERIA, URINE Moderate(A) Negative /hpf 09/07/2021 2:22 AM CDT [facility] Urine URINE SPECIMEN COLLECTION, CLEAN CATCH / Unknown Non-Phlebotomy Collection / Unknown 09/07/2021 1:57 AM CDT 09/07/2021 2:00 AM CDT us Jhon Smith MD URINE ORDERABLES Final Re sult [facility] [address] [place] [address] * CT ABDOMEN PELVIS W/ CONTRAST (09/07/2021 12:02 AM CDT) Anatomical Region Laterality Modality Abdomen N/A Computed Tomogra phy 09/07/2021 12:4 1 AM CDT Impressions 09/07/2021 12:44 AM CDT IMPRESSION: ?? 1. ?? Moderate dilatation of the proximal and mid small bowel with multiple air-fluid levels identified. ??There is a transition zone in the mid abdomen, and the distal small bowel is decompressed. ??The findings suggest at least partial small-bowel obstruction. ??Consider adhesions. ??The findings were called to Dr. Smith at 12:40 a.m. on 09/07/2021. 2. ?? Multiple hepatic cysts. 3. ?? Surgical absence of the gallbladder. 4. ?? Diverticulosis. ??No evidence of diverticulitis. Narrative 09/07/2021 12:44 AM CDT EXAM DESCRIPTION: ?? CT ABDOMEN PELVIS W/ CONTRAST REASON FOR STUDY: ?? Bowel obstruction high-grade suspected . ??Upper abdominal pain for 5 hours. ??Previous history of partial obstruction. ??Upper abdomen firm upon palpation. ??Nausea. TECHNIQUE: CT scan of the abdomen and pelvis performed with intravenous and ?? without ??oral contrast using helical scanning technique with dynamic intravenous contrast injection. Reconstructed coronal and sagittal MPR images reviewed. All images stored on PACS. Automated exposure control was used as a dose optimization technique for this examination. CONTRAST TYPE/DOSE: ?? 125 cc Isovue 370 ??injected via ?? right antecubital COMPARISON: ?? 08/03/2021 FINDINGS: LOWER CHEST: ?? No significant pulmonary abnormalities. No effusion. LIVER: ?? Normal size. ??Multiple hepatic cysts are unchanged. GALLBLADDER: ?? Surgically absent. BILE DUCTS: ?? No intrahepatic or extrahepatic ductal dilatation. SPLEEN: ?? Normal size. ??No focal lesions. PANCREAS: ?? No identified cystic or solid masses. No significant calcifications. No adjacent inflammation or peripancreatic fluid collections. Pancreatic duct not dilated. ?? ADRENALS: ?? Normal. KIDNEYS/URINARY TRACT: ?? No identified significant cystic or solid masses. ??Punctate nonobstructing bilateral renal stones. ??No hydronephrosis or hydroureter. Symmetric enhancement. ?Urinary bladder is unremarkable. GI: ?? There is moderate dilatation of the proximal and mid small bowel with multiple air-fluid levels identified. ??There is a transition zone in the mid abdomen, and the distal small bowel is decompressed. ??Findings suggest at least partial small-bowel obstruction. ??Consider adhesions. ??The colon is fluid filled and normal in caliber. ??Minimal diverticulosis without evidence of diverticulitis. ??Normal appendix. PERITONEUM: ?? No ascites or free air. RETROPERITONEUM: ?? No mass or adenopathy. REPRODUCTIVE: ?? No significant abnormality. VASCULATURE: ?? No abdominal aortic aneurysm. MUSCULOSKELETAL: ?? No significant abnormality. ?? 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 ??There is significant degenerative change at the L5-S1 disc space with vacuum phenomenon and endplate sclerosis and cyst formation. OTHER: ?? No other abnormality. THIS IS AN ELECTRONICALLY VERIFIED FINAL REPORT 09/07/2021 12:41 AM - Electronically signed by ??Anjum Pantoja M.D. KT: JARRED D: ??09/07/2021 12:41 AM T: ??09/07/2021 12:41 AM Report ID: [id number] Reading Location: ??[id number] Procedure Note Anjum Pantoja MD - 09/07/2021 EXAM DESCRIPTION: CT ABDOMEN PELVIS W/ CONTRAST REASON FOR STUDY: Bowel obstruction high-grade suspected . Upper abdominal pain for 5 hours. Previous history of partial obstruction. Upper abdomen firm upon palpation. Nausea. TECHNIQUE: CT scan of the abdomen and pelvis performed with intravenous and without oral contrast using helical scanning technique with dynamic intravenous contrast injection. Reconstructed coronal and sagittal MPR images reviewed. All images stored on PACS. Automated exposure control was used as a dose optimization technique for this examination. CONTRAST TYPE/DOSE: 125 cc Isovue 370 injected via right antecubital COMPARISON: 08/03/2021 FINDINGS: LOWER CHEST: No significant pulmonary abnormalities. No effusion. LIVER: Normal size. Multiple hepatic cysts are unchanged. GALLBLADDER: Surgically absent. BILE DUCTS: No intrahepatic or extrahepatic ductal dilatation. SPLEEN: Normal size. No focal lesions. PANCREAS: No identified cystic or solid masses. No significant calcifications. No adjacent inflammation or peripancreatic fluid collections. Pancreatic duct not dilated. ADRENALS: Normal. KIDNEYS/URINARY TRACT: No identified significant cystic or solid masses. Punctate nonobstructing bilateral renal stones. No hydronephrosis or hydroureter. Symmetric enhancement. Urinary bladder is unremarkable. GI: There is moderate dilatation of the proximal and mid small bowel with multiple air-fluid levels identified. There is a transition zone in the mid abdomen, and the distal small bowel is decompressed. Findings suggest at least partial small-bowel obstruction. Consider adhesions. The colon is fluid filled and normal in caliber. Minimal diverticulosis without evidence of diverticulitis. Normal appendix. PERITONEUM: No ascites or free air. RETROPERITONEUM: No mass or adenopathy. REPRODUCTIVE: No significant abnormality. VASCULATURE: No abdominal aortic aneurysm. MUSCULOSKELETAL: No significant abnormality. 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 There is significant degenerative change at the L5-S1 disc space with vacuum phenomenon and endplate sclerosis and cyst formation. OTHER: No other abnormality. THIS IS AN ELECTRONICALLY VERIFIED FINAL REPORT 09/07/2021 12:41 AM - Electronically signed by Anjum Pantoja M.D. KT: JARRED Report ID: [id number] Reading Location: [place] [id number] IMPRESSION: 1. Moderate dilatation of the proximal and mid small bowel with multiple air-fluid levels identified. There is a transition zone in the mid abdomen, and the distal small bowel is decompressed. The findings suggest at least partial small-bowel obstruction. Consider adhesions. The findings were called to Dr. Smith at 12:40 a.m. on 09/07/2021. 2. Multiple hepatic cysts. 3. Surgical absence of the gallbladder. 4. Diverticulosis. No evidence of diverticulitis. us Jhon Smith MD IMG CT ORDERABLES Final R esult * Critical Care (09/06/2021 11:16 PM CDT) Narrative Jhon Smith MD - 09/06/2021 11:16 PM CDT Jhon Smith MD ? 09/07/2021 ??1:35 AM Critical Care Performed by: Jhon Smith MD Authorized by: Jhon Smith MD Critical care provider statement: ??Critical care time (minutes): ??35 ??Critical care time was exclusive of: ??Separately billable procedures and treating other patients ??Critical care was necessary to treat or prevent imminent or life-threatening deterioration of the following conditions: Small-bowel obstruction. ??Critical care was time spent personally by me on the following activities: ??Development of treatment plan with patient or surrogate, discussions with consultants, evaluation of patient's response to treatment, examination of patient, obtaining history from patient or surrogate, review of old charts, re-evaluation of patient's condition, ordering and review of radiographic studies, ordering and review of laboratory studies and ordering and performing treatments and interventions ??I assumed direction of critical care for this patient from another provider in my specialty: no ?Care discussed with: admitting provider ?? Jhon Smith MD PROCEDURE/MINOR SURGICAL ORDERABLES Final Result * Lipase [id number] (09/06/2021 10:43 PM CDT) Pathologist [facility] LIPASE 29.8 13 - 60 U/L 09/06/2021 11:36 PM CDT [facility] Blood Venipuncture / Unknown 09/06/2021 10:43 PM CDT 09/06/2021 11:10 PM CDT Jhon Smith MD CHEMISTRY ORDERABLES Radha l Result [facility] [place] [address] * (ABNORMAL) Comprehensive Metabolic Panel (Cmp) [id number] (09/06/2021 10:43 PM CDT) [facility] SODIUM 137 136 - 144 mmol/L 09/06/2021 11:36 PM CDT [facility] POTASSIUM 4.0 3.5 - 5.1 mmol/L 09/06/2021 11:36 PM CDT [facility] CHLORIDE 98(L) 100 - 110 mmol/L 09/06/2021 11:36 PM CDT [facility] CO2, VENOUS 28 22 - 32 mmol/L 09/06/2021 11:36 PM CDT [facility] ANION GAP 15.0 8.0 - 20.0 mmol/L 09/06/2021 11:36 PM CDT [facility] GLUCOSE 134(H) 70 - 99 mg/dL 09/06/2021 11:36 PM CDT [facility] BUN 15 6 - 20 mg/dL 09/06/2021 11:36 PM CDT [facility] CREATININE, BLOOD 0.64 0.60 - 1.10 mg/dL 09/06/2021 11:36 PM [facility] BUN/CREATININE RATIO 23(H) 12 - 20 ratio 09/06/2021 11:36 PM [facility] TOTAL PROTEIN 7.4 6.0 - 8.3 g/dL 09/06/2021 11:36 PM [facility] ALBUMIN 4.3 3.5 - 5.2 g/dL 09/06/2021 11:36 PM [facility] Comment: The colormetric methods used for the determination of Albumin may lead to falsely elevated test results in patients suffering from renal failure or insufficiency due to interference with other proteins. A/G RATIO 1.4 1.0 - 2.0 09/06/2021 11:36 PM [facility] CALCIUM 9.9 8.9 - 10.3 mg/dL 09/06/2021 11:36 PM [facility] T BILI <0.3 <=1.2 mg/dL 09/06/2021 11:36 PM [facility] SGOT (AST) 17 <=32 U/L 09/06/2021 11:36 PM [facility] SGPT (ALT) 24 <=41 U/L 09/06/2021 11:36 PM [facility] ALKALINE PHOSPHATASE 100 35 - 105 U/L 09/06/2021 11:36 PM [facility] GFR, EST. NONAFRICAN >60 >=60 09/06/2021 11:36 PM [facility] GFR, EST. >60 >=60 022 11:36 PM [facility] Comment: Creatinine Clearance is the preferred criteria for selecting drug dose adjustments in renally impaired patients. ??The GFR is provided as additional pertinent clinical information. GFR is reported in mL/min/1.73 sq m. Blood Venipuncture / Unknown 09/06/2021 10:43 PM CDT 09/06/2021 11:10 PM CDT us Jhon Smith MD CHEMISTRY ORDERABLES Radha anand Result [facility] [address] [place] [address] documented in this encounter Visit Diagnoses Diagnosis Small bowel obstruction (HCC)- Primary Unspecified intestinal obstruction Small bowel obstruction (HCC) Unspecified intestinal obstruction GERD (gastroesophageal reflux disease) Esophageal reflux Hypertension Unspecified essential hypertension Hyperlipidemia Other and unspecified hyperlipidemia Bipolar disorder (HCC) Bipolar disorder, unspecified Depression Depressive disorder, not elsewhere classified Hypothyroid Unspecified hypothyroidism Cocaine use Cocaine abuse, unspecified Morbid obesity with BMI of 45.0-49.9, adult (HCC) Anxiety Anxiety state, unspecified Type 2 diabetes mellitus, without long-term current use of insulin (HCC) documented in this encounter Admitting Diagnoses Diagnosis Small bowel obstruction (HCC) Unspecified intestinal obstruction documented in this encounter Administered Medications Inactive Administered Medications - up to 3 most recent administrations Medication Order MAR Action Action Date Dose Rate Site 0.9 % sodium chloride solution at 500 mL/hr, Intravenous, ONCE, 1 dose, On Mon09/07/21 at 0000 New 09/06/2021 11:37 PM CDT 1,000 mL 500 mL/hr 0.9 % sodium chloride solution at 100 mL/hr, Intravenous, CONTINUOUS, Starting on Mon09/07/21 at 0400, Until Mon09/08/21 at 1645 New 09/07/2021 3:38 PM CDT 100 mL/hr New 09/07/2021 3:58 AM CDT 100 mL/hr acetaminophen (TYLENOL) suppository 650 mg 650 mg, Rectal, EVERY 4 HOURS PRN, Starting on Mon09/07/21 at 0320, Until Mon09/08/21 at 1645, Mild pain or more severe pain if patient requests, Fever, If patient is taking oral intake without complications and both PO/FL orders are active, administer through the oral route. acetaminophen (TYLENOL) tablet 650 mg 650 mg, Oral, EVERY 4 HOURS PRN, Starting on Mon09/07/21 at 0320, Until Mon09/08/21 at 1645, Mild pain or more severe pain if patient requests, Fever, If patient is taking oral intake without complications and both PO/FL orders are active, administer through the oral route. Given 09/07/2021 3:38 PM CDT 650 mg ARIPiprazole (ABILIFY) tablet 20 mg 20 mg, Oral, NIGHTLY, First dose on Mon09/07/21 at 2100, Until Discontinued Given 09/07/2021 8:17 PM CDT 20 mg dextrose 50 % solution 12.5 g 12.5 g, Intravenous, PRN, Starting on Mon09/07/21 at 1420, Until Mon09/08/21 at 1645, Low blood sugar, If IV patent in patient with blood glucose of 50 or less, or Unconscious, Conscious but NPO or Unable to Swallow regardless of blood glucose, administer 1 dose of dextrose 50% solution. diatrizoate meglumine-sodium (GASTROGRAFIN) 66-10 % solution 180 mL 180 mL, Oral, ONCE, 1 dose, On Mon09/07/21 at 0930 Given 09/07/2021 8:50 AM CDT 180 mL DULoxetine (CYMBALTA) capsule 60 mg 60 mg, Oral, DAILY, First dose on Mon09/07/21 at 1430, Until Discontinued, Do not crush. Given 09/08/2021 8:38 AM CDT 6 0 mg Given 09/07/2021 3:38 PM CDT 60 mg enoxaparin (LOVENOX) injection 40 mg 40 mg, Subcutaneous, EVERY 12 HOURS SCHEDULED, First dose on Mon09/07/21 at 1430, Until DiscontinuedIndications:Prophylaxis of Venous Thromboembolism Given 09/08/2021 8:38 AM CDT 40 mg Left Abdomen Given 09/07/2021 8:18 PM CDT 40 mg Le ft Abdomen Given 09/07/2021 3:38 PM CDT 40 mg Le ft Abdomen glucagon injection SOLR 1 mg 1 mg, Intramuscular, PRN, Starting on Mon09/07/21 at 1420, Until Mon09/08/21 at 1645, Low blood sugar, If patient has no intravenous access and blood glucose of 50 or less, or Unconscious, Conscious but NPO or Unable to Swallow regardless of blood glucose administer 1 dose of glucagon. Glucagon may cause vomiting. Position patient on the side. glucagon injection SOLR 1 mg 1 mg, Subcutaneous, PRN, Starting on Mon09/07/21 at 1420, Until Mon09/08/21 at 1645, Low blood sugar, If patient has no intravenous access and blood glucose of 50 or less, or Unconscious, Conscious but NPO or Unable to Swallow regardless of blood glucose administer 1 dose of glucagon. Glucagon may cause vomiting. Position patient on the side. glucose (INSTA-GLUCOSE) 77.4 % gel 15 g 15 g, Oral, PRN, Starting on Mon09/07/21 at 1420, Until Mon09/08/21 at 1645, Low blood sugar, Dose is based on glucose. 37.5 g tube = 15 GRAMS of GLUCOSE. For 15 GRAM GLUCOSE dose, give entire 37.5 g size tube. Administer 1 dose if patient is unable to take food, but conscious and able to swallow. insulin lispro (HumaLOG) 100 UNIT/ML injection 1-6 Units 1-6 Units, Subcutaneous, 3 TIMES DAILY AFTER MEALS, First dose on Mon09/07/21 at 1500, Until Discontinued, To be given together with nutritional dose immediately after the meal. LOW dose algorithm: If BS = 70-180, give no correction Insulin. ?? If BS = 181-200, give 1 Unit. ?? If BS = 201-250, give 2 Units. ?? If BS = 251-300, give 3 Units. If BS = 301-350, give 4 Units. If BS = 351-400, give 5 Units. ? If BS is greater than 400, give 6 units and call physician. insulin lispro (HumaLOG) 100 UNIT/ML injection 2-6 Units 2-6 Units, Subcutaneous, NIGHTLY, First dose on Mon09/07/21 at 2100, Until Discontinued, LOW dose algorithm: A) If BS=70-200, give no correction Insulin. B) If XI=335-302, give 2 units. C) If EE=965-618, give 3 units. D) If IZ=808-191, give 4 units. E) If US=172-031, give 5 units. F) If BS is greater than 400, give 6 units and call physician. iopamidol (ISOVUE-370) 76 % injection 125 mL 125 mL, Intravenous, ONCE, 1 dose, On Mon09/07/21 at 0030 Given 09/07/2021 12:01 AM CDT 125 mL levothyroxine (SYNTHROID) tablet 50 mcg 50 mcg, Oral, EVERY MORNING BEFORE BREAKFAST, First dose on Mon09/07/21 at 1430, Until DiscontinuedIndications:Hypothyroidism Given 09/08/2021 8:38 AM CDT 50 mc g Given 09/07/2021 3:38 PM CDT 50 mcg losartan (COZAAR) tablet 50 mg 50 mg, Oral, DAILY, First dose on Mon09/07/21 at 1430, Until Discontinued Given 09/08/2021 8:38 AM CDT 50 mg Given 09/07/2021 3:38 PM CDT 50 mg Morphine Sulfate (PF) SOLN 2 mg 2 mg, Intravenous, EVERY 2 HOURS PRN, Starting on Mon09/07/21 at 0325, Until Mon09/08/21 at 0324, Moderate pain or more severe pain if patient requests, Severe pain Given 09/07/2021 12:10 PM CDT 2 mg Given 09/07/2021 5:26 AM CDT 2 mg Morphine Sulfate (PF) SOLN 4 mg 4 mg, Intravenous, ONCE, 1 dose, On Mon09/07/21 at 0130 Given 09/07/2021 1:21 AM CDT 4 mg ondansetron (ZOFRAN) injection 4 mg 4 mg, Intravenous, ONCE, 1 dose, On Mon09/07/21 at 0130 Given 09/07/2021 1:21 AM CDT 4 mg pantoprazole (PROTONIX) injection 40 mg 40 mg, Intravenous, DAILY, First dose on Mon09/07/21 at 0900, Until Discontinued, Administer over 3 Minutes, Indications: Symptomatic Gastroesophageal Reflux DiseaseIndications:Symptomatic Gastroesophageal Reflux Disease Given 09/08/2021 8:38 AM CDT 40 mg Given 09/07/2021 8:17 AM CDT 40 mg pregabalin (LYRICA) capsule 75 mg 75 mg, Oral, 2 TIMES DAILY, First dose on Mon09/07/21 at 2100, Until Discontinued Given 09/08/2021 8:38 AM CDT 75 mg Given 09/07/2021 8:17 PM CDT 75 mg Prochlorperazine Edisylate (COMPAZINE) injection 10 mg 10 mg, Intravenous, EVERY 6 HOURS PRN, Starting on Mon09/07/21 at 0320, Until Mon09/08/21 at 1645, Nausea - 1st line, Second Line Antiemetic Give if nausea/vomiting recurs after ondansetron. Given 09/07/2021 5:22 AM CDT 10 mg sertraline (ZOLOFT) tablet 150 mg 150 mg, Oral, DAILY, First dose on Mon09/08/21 at 0900, Until Discontinued Given 09/08/2021 8:38 AM CDT 150 mg simvastatin (ZOCOR) tablet 10 mg 10 mg, Oral, NIGHTLY, First dose on Mon09/07/21 at 2100, Until Discontinued Given 09/07/2021 8:18 PM CDT 10 mg traZODone (DESYREL) tablet 100 mg 100 mg, Oral, NIGHTLY, First dose on Mon09/07/21 at 2100, Until Discontinued Given 09/07/2021 8:18 PM CDT 100 mg triamterene-hydrochlorothiazide (MAXZIDE) 37.5-25 MG per tablet 1 Tablet 1 Tablet, Oral, DAILY, First dose on Mon09/07/21 at 1400, Until Discontinued Given 09/08/2021 8:38 AM CDT 1 Tablet Given 09/07/2021 3:38 PM CDT 1 Tablet documented in this encounter Active and Recently Administered Medications Times are shown in CDT. Scheduled Medication Order 09/06/2021 09/07/2021 09/08/2021 0.9 % sodium chloride solution (COMPLETED) at 500 mL/hr, Intravenous, ONCE, 1 dose, On Mon09/07/21 at 0000 2337 (New Bag - Provider: Mili De La Garza, AGUILA) 0156 (Stopped - Provider: Yaima Thakkar RN) ARIPiprazole (ABILIFY) tablet 20 mg 20 mg, Oral, NIGHTLY, First dose on Mon09/07/21 at 2100, Until Discontinued 2016 (Given - Provider: Niru Lackey, AGUILA) diatrizoate meglumine-sodium (GASTROGRAFIN) 66-10 % solution 180 mL (COMPLETED) 180 mL, Oral, ONCE, 1 dose, On Mon09/07/21 at 0930 0850 (Given - Provider: Elen White, RTR) DULoxetine (CYMBALTA) capsule 60 mg 60 mg, Oral, DAILY, First dose on Mon09/07/21 at 1430, Until Discontinued, Do not crush. 153 (Given - Provider: Tawanna Herrera RN) 0838 (Given - Provider: Tawanna Herrera RN) enoxaparin (LOVENOX) injection 40 mg 40 mg, Subcutaneous, EVERY 12 HOURS SCHEDULED, First dose on Mon09/07/21 at 1430, Until Discontinued 1537 (Given - Provider: Tawanna Herrera RN)2017 (Given - Provider: Niru Lackey RN) 0838 (Given - Provider: Tawanna Herrera RN) insulin lispro (HumaLOG) 100 UNIT/ML injection 1-6 Units 1-6 Units, Subcutaneous, 3 TIMES DAILY AFTER MEALS, First dose on Mon09/07/21 at 1500, Until Discontinued, To be given together with nutritional dose immediately after the meal. LOW dose algorithm: If BS = 70-180, give no correction Insulin. ?? If BS = 181-200, give 1 Unit. ?? If BS = 201-250, give 2 Units. ?? If BS = 251-300, give 3 Units. If BS = 301-350, give 4 Units. If BS = 351-400, give 5 Units. ? If BS is greater than 400, give 6 units and call physician. 1500 (Not Given - Provider: Tawanna Herrera RN - Reason: Order parameters not met)1800 (Not Given - Provider: Tawanna Herrera RN - Reason: Order parameters not met) 0900 (Not Given - Provider: Tawanna Herrera RN - Reason: Order parameters not met)1300 (Not Given - Provider: Tawanna Herrera RN - Reason: Order parameters not met) insulin lispro (HumaLOG) 100 UNIT/ML injection 2-6 Units 2-6 Units, Subcutaneous, NIGHTLY, First dose on Mon09/07/21 at 2100, Until Discontinued, LOW dose algorithm: A) If BS=70-200, give no correction Insulin. B) If MK=862-913, give 2 units. C) If YM=286-697, give 3 units. D) If CJ=375-968, give 4 units. E) If EG=471-176, give 5 units. F) If BS is greater than 400, give 6 units and call physician. 2100 (Not Given - Provider: Niru Lackey RN - Reason: Order parameters not met - Comment: BS 175) iopamidol (ISOVUE-370) 76 % injection 125 mL (COMPLETED) 125 mL, Intravenous, ONCE, 1 dose, On Mon09/07/21 at 0030 0001 (Given - Provider: Pradeep Peraza, RTR) levothyroxine (SYNTHROID) tablet 50 mcg 50 mcg, Oral, EVERY MORNING BEFORE BREAKFAST, First dose on Mon09/07/21 at 1430, Until Discontinued 1537 (Given - Provider: Tawanna Herrera RN) 0838 (Given - Provider: Tawanna Herrera RN) losartan (COZAAR) tablet 50 mg 50 mg, Oral, DAILY, First dose on Mon09/07/21 at 1430, Until Discontinued 1537 (Given - Provider: Tawanna Herrera RN) 0838 (Given - Provider: Tawanna Herrera RN) Morphine Sulfate (PF) SOLN 4 mg (COMPLETED) 4 mg, Intravenous, ONCE, 1 dose, On Mon09/07/21 at 0130 0121 (Given - Provider: Yaima Thakkar RN) ondansetron (ZOFRAN) injection 4 mg (COMPLETED) 4 mg, Intravenous, ONCE, 1 dose, On Mon09/07/21 at 0130 0121 (Given - Provider: Yaima Thakkar RN) pantoprazole (PROTONIX) injection 40 mg 40 mg, Intravenous, DAILY, First dose on Mon09/07/21 at 0900, Until Discontinued, Administer over 3 Minutes, Indications: Symptomatic Gastroesophageal Reflux Disease 0817 (Given - Provider: Tawanna Herrera RN) 0838 (Given - Provider: Tawanna Herrera RN) pregabalin (LYRICA) capsule 75 mg 75 mg, Oral, 2 TIMES DAILY, First dose on Mon09/07/21 at 2100, Until Discontinued 2016 (Given - Provider: Niru Lackey RN) 0838 (Given - Provider: Tawanna Herrera RN) sertraline (ZOLOFT) tablet 150 mg 150 mg, Oral, DAILY, First dose on Mon09/08/21 at 0900, Until Discontinued 08 (Given - Provider: Tawanna Herrera RN) simvastatin (ZOCOR) tablet 10 mg 10 mg, Oral, NIGHTLY, First dose on Mon09/07/21 at 2100, Until Discontinued 2017 (Given - Provider: Niru Lackey RN) traZODone (DESYREL) tablet 100 mg 100 mg, Oral, NIGHTLY, First dose on Mon09/07/21 at 2100, Until Discontinued 2017 (Given - Provider: Niru Lackey RN) triamterene-hydrochlorothi azide (MAXZIDE) 37.5-25 MG per tablet 1 Tablet 1 Tablet, Oral, DAILY, First dose on Mon09/07/21 at 1400, Until Discontinued 153 (Given - Provider: Tawanna Herrera RN) 0838 (Given - Provider: Tawanna Herrera RN) Continuous Medication Order 09/06/2021 09/07/2021 09/08/2021 0.9 % sodium chloride solution at 100 mL/hr, Intravenous, CONTINUOUS, Starting on Mon09/07/21 at 0400, Until Mon09/08/21 at 1645 0358 (New Bag - Provider: Niru Lackey RN)1538 (New Bag - Provider: Tawanna Herrera RN) 1257 (Stopped - Provider: Tawanna Herrera RN) PRN Medication Order 09/06/2021 09/07/2021 09/08/2021 acetaminophen (TYLENOL) suppository 650 mg(Linked Group 1) 650 mg, Rectal, EVERY 4 HOURS PRN, Starting on Mon09/07/21 at 0320, Until Mon09/08/21 at 1645, Mild pain or more severe pain if patient requests, Fever, If patient is taking oral intake without complications and both PO/FL orders are active, administer through the oral route. 1538 (See Alternative - Provider: Tawanna Herrera RN) acetaminophen (TYLENOL) tablet 650 mg(Linked Group 1) 650 mg, Oral, EVERY 4 HOURS PRN, Starting on Mon09/07/21 at 0320, Until Mon09/08/21 at 1645, Mild pain or more severe pain if patient requests, Fever, If patient is taking oral intake without complications and both PO/FL orders are active, administer through the oral route. 1538 (Given - Provider: Linda Herrera RN) baclofen (LIORESAL) tablet 20 mg 20 mg, Oral, 2 TIMES DAILY PRN, Starting on Mon09/07/21 at 1343, Until Mon09/08/21 at 1645, Muscle spasms dextrose 50 % solution 12.5 g(Linked Group 2) 12.5 g, Intravenous, PRN, Starting on Mon09/07/21 at 1420, Until Mon09/08/21 at 1645, Low blood sugar, If IV patent in patient with blood glucose of 50 or less, or Unconscious, Conscious but NPO or Unable to Swallow regardless of blood glucose, administer 1 dose of dextrose 50% solution. glucagon injection SOLR 1 mg(Linked Group 2) 1 mg, Intramuscular, PRN, Starting on Mon09/07/21 at 1420, Until Mon09/08/21 at 1645, Low blood sugar, If patient has no intravenous access and blood glucose of 50 or less, or Unconscious, Conscious but NPO or Unable to Swallow regardless of blood glucose administer 1 dose of glucagon. Glucagon may cause vomiting. Position patient on the side. glucagon injection SOLR 1 mg(Linked Group 2) 1 mg, Subcutaneous, PRN, Starting on Mon09/07/21 at 1420, Until Mon09/08/21 at 1645, Low blood sugar, If patient has no intravenous access and blood glucose of 50 or less, or Unconscious, Conscious but NPO or Unable to Swallow regardless of blood glucose administer 1 dose of glucagon. Glucagon may cause vomiting. Position patient on the side. glucose (INSTA-GLUCOSE) 77.4 % gel 15 g(Linked Group 2) 15 g, Oral, PRN, Starting on Mon09/07/21 at 1420, Until Mon09/08/21 at 1645, Low blood sugar, Dose is based on glucose. 37.5 g tube = 15 GRAMS of GLUCOSE. For 15 GRAM GLUCOSE dose, give entire 37.5 g size tube. Administer 1 dose if patient is unable to take food, but conscious and able to swallow. Morphine Sulfate (PF) SOLN 2 mg 2 mg, Intravenous, EVERY 2 HOURS PRN, Starting on Mon09/07/21 at 0325, Until Mon09/08/21 at 0324, Moderate pain or more severe pain if patient requests, Severe pain 0526 (Given - Provider: Niru Lackey, RN)1210 (Given - Provider: Tawanna Herrera RN) Prochlorperazine Edisylate (COMPAZINE) injection 10 mg 10 mg, Intravenous, EVERY 6 HOURS PRN, Starting on Mon09/07/21 at 0320, Until Mon09/08/21 at 1645, Nausea - 1st line, Second Line Antiemetic Give if nausea/vomiting recurs after ondansetron. 0522 (Given - Provider: Niru Lackey, AGUILA) Linked Groups Order Group 1: acetaminophen (TYLENOL) tablet 650 mgJump to med 650 mg, Oral, EVERY 4 HOURS PRN, Starting on Mon09/07/21 at 0320, Until Mon09/08/21 at 1645, Mild pain or more severe pain if patient requests, Fever, If patient is taking oral intake without complications and both PO/FL orders are active, administer through the oral route. Or acetaminophen (TYLENOL) suppository 650 mgJump to med 650 mg, Rectal, EVERY 4 HOURS PRN, Starting on Mon09/07/21 at 0320, Until Mon09/08/21 at 1645, Mild pain or more severe pain if patient requests, Fever, If patient is taking oral intake without complications and both PO/FL orders are active, administer through the oral route. Group 2: glucose (INSTA-GLUCOSE) 77.4 % gel 15 gJump to med 15 g, Oral, PRN, Starting on Mon09/07/21 at 1420, Until Mon09/08/21 at 1645, Low blood sugar, Dose is based on glucose. 37.5 g tube = 15 GRAMS of GLUCOSE. For 15 GRAM GLUCOSE dose, give entire 37.5 g size tube. Administer 1 dose if patient is unable to take food, but conscious and able to swallow. Or dextrose 50 % solution 12.5 gJump to med 12.5 g, Intravenous, PRN, Starting on Mon09/07/21 at 1420, Until Mon09/08/21 at 1645, Low blood sugar, If IV patent in patient with blood glucose of 50 or less, or Unconscious, Conscious but NPO or Unable to Swallow regardless of blood glucose, administer 1 dose of dextrose 50% solution. Or glucagon injection SOLR 1 mgJump to med 1 mg, Intramuscular, PRN, Starting on Mon09/07/21 at 1420, Until Mon09/08/21 at 1645, Low blood sugar, If patient has no intravenous access and blood glucose of 50 or less, or Unconscious, Conscious but NPO or Unable to Swallow regardless of blood glucose administer 1 dose of glucagon. Glucagon may cause vomiting. Position patient on the side. Or glucagon injection SOLR 1 mgJump to med 1 mg, Subcutaneous, PRN, Starting on Mon09/07/21 at 1420, Until Mon09/08/21 at 1645, Low blood sugar, If patient has no intravenous access and blood glucose of 50 or less, or Unconscious, Conscious but NPO or Unable to Swallow regardless of blood glucose administer 1 dose of glucagon. Glucagon may cause vomiting. Position patient on the side. documented in this encounter Care Teams [employer] Relationship Specialty Start Date End Date Daja Carballo MD [address] [place] [address] PCP - General Internal Medicine 03/13/15 documented as of this encounter
--- OUTSIDE RECORDS SUMMARY | 2024-03-03 19:28 | XMS_ITS | Encounter Summary ---
Author Organization [facility] Address [address] [place] [address] Phone Care Team Providers Care Stained Glass Artist Name Role Phone Daja Kern MD Primary Care Provider [phone] Reason for Visit * Reason Comments Headache Encounter Details Date Type Department Care Team ([facility] st Contact Info) Description 02/13/2022 9:32 PM REPRODUCTIVE SURGEON - 02/13/2022 11:45 PM REPRODUCTIVE SURGEON Emergency [facility] Emergency [address] [place] [address] Mathew Batres, PAC [address] [place] [address] Influenza Discharge Disposition: Discharged to home or Selfcare [...] to have Coronavirus/COVID-19? Yes 02/13/2022 9:33 PM REPRODUCTIVE SURGEON documented as of this encounter Last Filed Vital Signs Vital Sign Reading Time Taken Comments Blood Pressure 140/64 02/13/2022 10:15 PM REPRODUCTIVE SURGEON Pulse 104 02/13/2022 11:44 PM REPRODUCTIVE SURGEON Temperature 37.2 ??C (98.9 ??F) 02/13/2022 9:33 PM CS T Respiratory Rate 21 02/13/2022 11:44 PM REPRODUCTIVE SURGEON Oxygen Saturation 98% 02/13/2022 11:44 PM REPRODUCTIVE SURGEON Inhaled Oxygen Concentration - - Weight 117.9 kg (260 lb) 02/13/2022 9:33 PM REPRODUCTIVE SURGEON Height 157.5 cm (5' 2 ) 02/13/2022 9:33 PM REPRODUCTIVE SURGEON Body Mass Index 47.55 02/13/2022 9:33 PM REPRODUCTIVE SURGEON documented in this encounter Discharge Instructions * Attachments The following attachments cannot be sent through Care Everywhere. * Symptoms of COVID-19 - CDC (04/20/2020) (Czech) * Influenza Adult Bisl-gb-Njce (Czech) documented in this encounter Medications at Time [...] more severe pain. 20 Tablet 02/13/2022 3 oseltamivir (TAMIFLU) 75 MG CapsuleIndication s:influenza Take [...] as of this encounter ED Notes * Mac Holden RN - 02/13/2022 11:45 PM CST Patient discharged. Discharge instructions and patient educational material reviewed with patient; questions and concerns addressed; patient verbalizes understanding, using teach back. Patient was given 1 prescriptions. Patient was informed no drinking alcohol, driving or operating heavy machinery while taking narcotics or muscle relaxants. Patient discharged per ambulatory mode with mother as responsible republican. D/C'ed with Chadwick cath intact. ODUCTIVE SURGEON * Mac Holden RN - 02/13/2022 10:46 PM CST Pt medicated per provider orders. Pt educated on intended effects and side effects of medication and verbalized understanding, able to provide teach back of education. ODUCTIVE SURGEON * Mathew Batres PAC - 02/13/2022 9:53 PM CST Chief Complaint Patient presents with ??? Headache Alona Kemp is a 51 y.o. female who presents to the ED c/o SYED, dizziness, cough and SOB. Patient is currently influenza and COVID positive. Patient was recently admitted at this facility for respiratory failure, discharged 02/08. Patient was outside tamiflu treatment window and is compliant with supportive care. SYED started today. No neuro changes. VSS. No acute distress. Past Medical History Positives No date: Adenomatous colon polyp No date: Anxiety No date: Bipolar disorder ([facility]) No date: Cocaine abuse ([facility]) No date: DDD (degenerative disc disease), lumbar Comment: back No date: Depression No date: GERD (gastroesophageal reflux disease) No date: HLD (hyperlipidemia) No date: HTN (hypertension) No date: Hypothyroid No date: IBS (irritable bowel syndrome) Comment: C/D No date: Morbid obesity ([facility]) No date: NAFLD (nonalcoholic fatty liver disease) No date: Nephrocalcinosis No date: KWABENA (obstructive sleep apnea) Comment: does not use cpap 09/2018: SBO (small bowel obstruction) ([facility]) No date: Vitamin D deficiency No current [...] mouth 2 times daily as needed. ??? benzonatate (TESSALON) 100 MG Capsule Take 1 Capsule by mouth 3 times daily as needed for Coughfor up to 10 days. 30 Capsule 0 ??? dexamethasone 6 MG Tablet Take 1 Tablet by mouth daily after breakfast for 7 days. 7 Tablet 0 ??? DULoxetine (CYMBALTA) 20 MG [...] by mouth daily. 90 Capsule 0 ??? oseltamivir (TAMIFLU) 75 MG Capsule Take 1 Capsule by mouth 2 times daily for 4 days. Indications: influenza 8 Capsule 0 ??? pregabalin (LYRICA) 75 MG [...] SAMANTHA TEST; Surgeon: Damian Gallardo DO; Location: [facility] [...] History Narrative ??? Not on file BP 140/64 Pulse 103 Temp 98.9 ??F (37.2 ??C) (Tympanic) Resp 22 Ht 5' 2 (1.575 m) Wt 260lb (117.9 kg) LMP 11/12/2019 SpO2 97% BMI 47.55 kg/m?? Review of Systems Constitutional: Positive for fatigue. Negative for chills and fever. HENT: Negative for congestion and sore throat. Respiratory: Positive for cough and shortness of breath. Negative for chest tightness. Cardiovascular: Negative for chest pain. Gastrointestinal: Negative for abdominal pain, constipation, diarrhea, nausea and vomiting. Genitourinary: Negative for dysuria, frequency and urgency. Musculoskeletal: Negative for arthralgias, back pain and myalgias. Skin: Negative for color change and wound. Neurological: Positive for dizziness and headaches. All other systems reviewed and are negative. Physical Exam Vitals and nursing note reviewed. Constitutional: General: She is not in acute distress. Appearance: She is well-developed. She is morbidly obese. She is not diaphoretic. HENT: Head: Normocephalic and atraumatic. Eyes: General: No visual field deficit. Pupils: Pupils are equal, round, and reactive [...] GCS motor subscore is 6. Cranial Nerves: No cranial nerve deficit, dysarthria or facial asymmetry. Sensory: No sensory deficit. Motor: No weakness. Psychiatric: Behavior: Behavior normal. XR CHEST SINGLE VIEW PORTABLE Final Result IMPRESSION: No acute cardiopulmonary abnormality. CBC w/ Diff Final Result CMP Final Result Procedures Imaging Results XR CHEST SINGLE VIEW PORTABLE (Final result) Result time 02/13/22 22:43:18 Final result by Anjum Pantoja MD (02/13/22 22:43:18) Impression: IMPRESSION: No acute cardiopulmonary abnormality. Narrative: EXAM DESCRIPTION: XR CHEST SINGLE VIEW PORTABLE REASON FOR STUDY: COVID + x 3 days, SOB today. HX: HTN TECHNIQUE: One radiographic view of the chest acquired. COMPARISON: 02/08/2022 FINDINGS: LUNGS/PLEURA: No focal consolidation or pneumothorax. No pleural effusion. HEART/MEDIASTINUM: Heart size is normal. Normal mediastinal and hilar contours. HARDWARE/LINES/TUBES: None. BONES: No acute findings. OTHER: No other significant finding. THIS IS AN ELECTRONICALLY VERIFIED FINAL REPORT 02/13/2022 10:40 PM - Electronically signed by Anjum Pantoja M.D. KT: KT Report ID: [id number] Reading Location: [place] [address] Labs Reviewed CMP (COMPREHENSIVE METABOLIC PANEL) - Abnormal; Notable for the following components: Result Value SODIUM 134 (*) CHLORIDE 97 (*) GLUCOSE 206 (*) BUN/CREATININE RATIO 29 (*) SGPT (ALT) 43 (*) All other components within normal limits CBC WITH AUTO DIFFERENTIAL - Abnormal; Notable for the following components: WBC 13.51 (*) NEUTROPHILS 82.4 (*) LYMPHOCYTES 11.5 (*) ABSOLUTE NEUTROPHILS 11.13 (*) All other components within normal limits COMPLETE BLOOD COUNT (CBC) WITH DIFF Narrative: The following orders were created for panel order CBC w/ Diff. Procedure Abnormality Status --------- ------ CBC with Auto Differential[[id number]] Abnormal Final result Please view results for these tests on the individual orders. [facility] Coding Clinical Impression 1. COVID-19 2. Influenza 3. Headache Reviewed labs and imaging with patient. Headache is much improved, 04/08 currently. Will continue toradol at home. PCP follow up in 1-2 days. Return [...] the need for follow up. Cosigned by Jhon Smith MD at 02/25/2022 6:22 AM REPRODUCTIVE SURGEON ODUCTIVE SURGEON ODUCTIVE SURGEON * Mac Holden RN - 02/13/2022 9:36 PM CST Pt to ED with c/o headache and high blood pressure. Pt is A&ox4. She states she tested positivefor covid and flu A - 3 days ago at this facility. ODUCTIVE SURGEON * Lachelle Higgins - 02/13/2022 9:32 PM CST Bed: ED02-01 Expected date: 02/13/22 Expected time: 9:19 PM Means of arrival: Ambulance ([facility]) Comments: [facility] 51F COVID + DIZZINESS ODUCTIVE SURGEON documented in this encounter Plan of Treatment Upcoming Encounters Date Type Department Care Team (Late st Contact Info) Description 03/27/2024 8:30 AM REPRODUCTIVE SURGEON [facility] [address] [place] [address] Burt Eastman MD [address] [address] 03/27/2024 8:30 AM REPRODUCTIVE SURGEON - 03/27/2024 9:00 AM REPRODUCTIVE SURGEON [facility] [address] [place] [address] Burt Eastman MD [address] [address] COLONOSCOPY 04/09/2024 1:15 PM REPRODUCTIVE SURGEON Office Visit [facility] - Pulmonology & Sleep Medicine [facility] [address] [place] [address] Baron Vergara MD [address] [place] [address] Scheduled Procedures Name Priority Associated Diagnoses Date/Ti me COLONOSCOPY HISTORY OF COLON POLYPS 03/27/2024 8:30 AM REPRODUCTIVE SURGEON documented as of this encounter Procedures Procedure Name Priority Date/Time Associated Diagnosis Comments XR CHEST SINGLE VIEW PORTABLE STAT 02/13/2022 9:55 PM REPRODUCTIVE SURGEON CBC WITH AUTO DIFFERENTIAL STAT 02/13/2022 9:47 PM REPRODUCTIVE SURGEON CMP (COMPREHENSIVE METABOLIC PANEL) STAT 02/13/2022 9:47 PM REPRODUCTIVE SURGEON COMPLETE BLOOD COUNT (CBC) WITH DIFF STAT 02/13/2022 9:47 PM REPRODUCTIVE SURGEON documented in this encounter Results * XR CHEST SINGLE VIEW PORTABLE (02/13/2022 9:55 PM REPRODUCTIVE SURGEON) Anatomical Region Laterality Modality Chest N/A Digital Radiogra phy 02/13/2022 10:4 0 PM REPRODUCTIVE SURGEON Impressions 02/13/2022 10:43 PM REPRODUCTIVE SURGEON IMPRESSION: ?? No acute cardiopulmonary abnormality. Narrative 02/13/2022 10:43 PM REPRODUCTIVE SURGEON EXAM DESCRIPTION: ?? XR CHEST SINGLE VIEW PORTABLE REASON FOR STUDY: ?? COVID + x 3 days, SOB today. HX: HTN TECHNIQUE: ?? One ??radiographic view of the chest acquired. COMPARISON: ?? 02/08/2022 FINDINGS: LUNGS/PLEURA: ?? No focal consolidation or pneumothorax. No pleural effusion. HEART/MEDIASTINUM: ?? Heart size is normal. Normal mediastinal and hilar contours. HARDWARE/LINES/TUBES: ?? None. BONES: ?? No acute findings. OTHER: ?? No other significant finding. THIS IS AN ELECTRONICALLY VERIFIED FINAL REPORT 02/13/2022 10:40 PM - Electronically signed by ??Anjum Pantoja M.D. KT: JARRED D: ??02/13/2022 10:40 PM T: ??02/13/2022 10:40 PM Report ID: [id number] Reading Location: ??[id number] Procedure Note Anjum Pantoja MD - 02/13/2022 EXAM DESCRIPTION: XR CHEST SINGLE VIEW PORTABLE REASON FOR STUDY: COVID + x 3 days, SOB today. HX: HTN TECHNIQUE: One radiographic view of the chest acquired. COMPARISON: 02/08/2022 FINDINGS: LUNGS/PLEURA: No focal consolidation or pneumothorax. No pleural effusion. HEART/MEDIASTINUM: Heart size is normal. Normal mediastinal and hilar contours. HARDWARE/LINES/TUBES: None. BONES: No acute findings. OTHER: No other significant finding. THIS IS AN ELECTRONICALLY VERIFIED FINAL REPORT 02/13/2022 10:40 PM - Electronically signed by Anjum Pantoja M.D. KT: JARRED Report ID: [id number] Reading Location: [id number] IMPRESSION: No acute cardiopulmonary abnormality. Mathew Batres [facility] IM DIAGNOSTIC ORDER ARMANDO Final Result * (ABNORMAL) CBC with Auto Differential (02/13/2022 9:47 PM REPRODUCTIVE SURGEON) [facility] WBC 13.51(H) 4.00 - 12.00 10(3)/mcL 02/13/2022 9:55 PM REPRODUCTIVE SURGEON [facility] RBC 4.77 3.80 - 5.30 10(6)/mcL 02/13/2022 9:55 PM [facility] HEMOGLOBIN (HGB) 14.1 12.0 - 15.8 g/dL 02/13/2022 9:55 PM REPRODUCTIVE SURGEON [facility] HEMATOCRIT (HCT) 42.7 36.0 - 47.0 % 02/13/2022 9:55 PM [facility] MCV 89.5 82.0 - 96.0 fL 02/13/2022 9:55 PM [facility] MCH 29.6 26.0 - 34.0 pg 02/13/2022 9:55 PM [facility] MCHC 33.0 31.0 - 36.0 g/dL 02/13/2022 9:55 PM [facility] PLATELET COUNT 224 140 - 440 10(3)/[facility] 02/13/2022 9:55 PM [facility] RDW 13.0 11.8 - 15.5 % 02/13/2022 9:55 PM [facility] MPV 10.8 9.7 - 12.4 fL 02/13/2022 9:55 PM [facility] NEUTROPHILS 82.4(H) 47.0 - 73.0 % 02/13/2022 9:55 PM [facility] LYMPHOCYTES 11.5(L) 18.0 - 42.0 % 02/13/2022 9:55 PM REPRODUCTIVE SURGEON [facility] MONOCYTES 5.7 4.0 - 12.0 % 02/13/2022 9:55 PM [facility] EOSINOPHILS 0.0 0.0 - 5.0 % 02/13/2022 9:55 PM [facility] BASOPHILS 0.4 0.0 - 1.0 % 02/13/2022 9:55 PM REPRODUCTIVE SURGEON [facility] ABSOLUTE NEUTROPHILS 11.13(H) 1.60 - 7.70 10(3)/[facility] 02/13/2022 9:55 PM REPRODUCTIVE SURGEON [facility] ABSOLUTE LYMPHOCYTES 1.55 1.30 - 3.20 10(3)/[facility] 02/13/2022 9:55 PM REPRODUCTIVE SURGEON [facility] ABSOLUTE MONOCYTES 0.77 0.20 - 1.00 10(3)/[facility] 02/13/2022 9:55 PM REPRODUCTIVE SURGEON [facility] ABSOLUTE EOSINOPHIL 0.00 0.00 - 0.40 10(3)/[facility] 02/13/2022 9:55 PM REPRODUCTIVE SURGEON [facility] ABSOLUTE BASOPHILS 0.06 0.00 - 0.10 10(3)/[facility] 02/13/2022 9:55 PM REPRODUCTIVE SURGEON [facility] NRBC PER 100 WBC 0 02/14/20 9:55 PM REPRODUCTIVE SURGEON [facility] Blood Venipuncture / Unknown 02/13/2022 9:47 PM REPRODUCTIVE SURGEON 02/13/2022 9:53 PM REPRODUCTIVE SURGEON Mathew Batres PAC HEMATOLOGY ORDERABLE S Final Result [facility] [address] [place] [address] * (ABNORMAL) CMP (02/13/2022 9:47 PM REPRODUCTIVE SURGEON) SODIUM 134(L) 136 - 144 mmol/L 02/13/2022 10:13 PM REPRODUCTIVE SURGEON [facility] POTASSIUM 4.0 3.5 - 5.1 mmol/L 02/13/2022 10:13 PM REPRODUCTIVE SURGEON [facility] CHLORIDE 97(L) 100 - 110 mmol/L 02/13/2022 10:13 PM REPRODUCTIVE SURGEON [facility] CO2, VENOUS 26 22 - 32 mmol/L 02/13/2022 10:13 PM REPRODUCTIVE SURGEON [facility] ANION GAP 15.0 8.0 - 20.0 mmol/L 02/13/2022 10:13 PM [facility] GLUCOSE 206(H) 70 - 99 mg/dL 02/13/2022 10:13 PM [facility] BUN 19 6 - 20 mg/dL 02/13/2022 10:13 PM [facility] CREATININE, BLOOD 0.65 0.60 - 1.10 mg/dL 02/13/2022 10:13 PM [facility] BUN/CREATININE RATIO 29(H) 12 - 20 ratio 02/13/2022 10:13 PM [facility] TOTAL PROTEIN 7.0 6.0 - 8.3 g/dL 02/13/2022 10:13 PM [facility] ALBUMIN 4.1 3.5 - 5.2 g/dL 02/13/2022 10:13 PM [facility] Comment: The colormetric methods used for the determination of Albumin may lead to falsely elevated test results in patients suffering from renal failure or insufficiency due to interference with other proteins. A/G RATIO 1.4 1.0 - 2.0 02/13/2022 10:13 PM [facility] CALCIUM 10.3 8.9 - 10.3 mg/dL 02/13/2022 10:13 PM [facility] T BILI <0.3 <=1.2 mg/dL 02/13/2022 10:13 PM [facility] SGOT (AST) 18 <=32 U/L 02/13/2022 10:13 PM [facility] SGPT (ALT) 43(H) <=41 U/L 02/13/2022 10:13 PM [facility] ALKALINE PHOSPHATASE 87 35 - 105 U/L 02/13/2022 10:13 PM [facility] GFR, ESTIMATED >60 >=60 02/13/2022 10:13 PM [facility] Comment: Creatinine Clearance is the preferred criteria for selecting drug dose adjustments in renally impaired patients. ??The GFR is provided as additional pertinent clinical information. GFR is reported in mL/min/1.73 sq m. Calculation based on the Chronic Kidney Disease Epidemiology Collaboration (CKD- EPI) equation refit without adjustment for race. GFR, EST. >60 >=60 022 10:13 PM REPRODUCTIVE SURGEON [facility] GFR, EST. NONAFRICAN >60 >=60 02/13/2022 10:13 PM REPRODUCTIVE SURGEON [facility] Blood Venipuncture / Unknown 02/13/2022 9:47 PM REPRODUCTIVE SURGEON 02/13/2022 9:53 PM REPRODUCTIVE SURGEON us Mathew Batres PAC CHEMISTRY ORDERABLES Final Result [facility] [address] [place] [address] documented in this encounter Visit Diagnoses Diagnosis COVID-19- Primary Influenza Influenza with other respiratory manifestations Headache documented in this encounter Administered Medications Inactive Administered Medications - up to 3 most recent administrations Medication Order MAR Action Action Date Dose Rate Site 0.9 % sodium chloride solution at 250 mL/hr, Intravenous, ONCE, 1 dose, On 02/13/22 at 2230 New Bag 02/13/2022 10:46 PM REPRODUCTIVE SURGEON 250 mL/hr ipratropium-albuterol (COMBIVENT RESPIMAT) 20-100 MCG/ACT inhaler 2 Puff 2 Puff, Inhalation, ONCE, 1 dose, On 02/13/22 at 2230, For disposal - Place in Purple Disposal Bin or bag and return to Pharmacy Given 02/13/2022 11:14 PM REPRODUCTIVE SURGEON 2 Puffs ketorolac (TORADOL) injection 15 mg 15 mg, Intravenous, ONCE, 1 dose, On 02/13/22 at 2230 Given 02/13/2022 10:46 PM REPRODUCTIVE SURGEON 15 mg magnesium oxide (MAG-OX) tablet 800 mg 800 mg, Oral, ONCE, 1 dose, On 02/13/22 at 2230 Given 02/13/2022 10:46 PM REPRODUCTIVE SURGEON 800 mg metoclopramide (REGLAN) tablet 10 mg 10 mg, Oral, ONCE, 1 dose, On 02/13/22 at 2230 Given 02/13/2022 10:46 PM REPRODUCTIVE SURGEON 10 mg documented in this encounter Active and Recently Administered Medications Times are shown in REPRODUCTIVE SURGEON. Scheduled Medication Order 02/11/2022 02/12/2022 02/13/2022 0.9 % sodium chloride solution (COMPLETED) at 250 mL/hr, Intravenous, ONCE, 1 dose, On 02/13/22 at 2230 2246 (New Bag - Prov ider: Mac Holden RN)2345 (Stopped - Provider: Mac Holden RN) ipratropium-albuterol (COMBIVENT RESPIMAT) 20-100 MCG/ACT inhaler 2 Puff (COMPLETED) 2 Puff, Inhalation, ONCE, 1 dose, On 02/13/22 at 2230, For disposal - Place in Purple Disposal Bin or bag and return to Pharmacy 2314 (Given - Provid er: Seema Zuniga, BOAT DETAILER) ketorolac (TORADOL) injection 15 mg (COMPLETED) 15 mg, Intravenous, ONCE, 1 dose, On 02/13/22 at 2230 2246 (Given - Provid er: Mac Holden RN) magnesium oxide (MAG-OX) tablet 800 mg (COMPLETED) 800 mg, Oral, ONCE, 1 dose, On 02/13/22 at 2230 2246 (Given - Provid er: Mac Holden RN) metoclopramide (REGLAN) tablet 10 mg (COMPLETED) 10 mg, Oral, ONCE, 1 dose, On 02/13/22 at 2230 2246 (Given - Provid er: Mac Holden RN) documented in this encounter Additional Health Concerns Infection Onset Date Last Indicated Resolved Time Respiratory Rule-Out 02/08/2022 02/08/2022 023 12:16 AM REPRODUCTIVE SURGEON Influenza 02/08/2022 02/08/2022 02/15/2022 12:1 9 AM REPRODUCTIVE SURGEON COVID - 19 Confirmed 02/08/2022 02/08/2022 023 12:16 AM REPRODUCTIVE SURGEON documented as of this encounter Care Teams Stained Glass Artist Relationship Specialty Start Date End Date Daja Kern MD [address] [place] [address] PCP - General Internal Medicine 03/13/15 documented as of this encounter
--- OUTSIDE RECORDS SUMMARY | 2024-03-03 19:28 | XMS_ITS | Encounter Summary ---
Author Organization [facility] Address [address] [place] [address] Phone Care Team Providers Care Consumer Safety Inspector Name Role Phone Daja Kern MD Primary Care Provider [phone] Encounter Details Date Type Department Care Team (Late Contact Info) Description 02/11/2022 Plan of Care Documentation [facility] [address] [place] [address] Social History Tobacco Use Types Packs/Day Years [...] Coronavirus/COVID-19? No / Unsure 02/08/2022 9:35 AM SHOTBLAST OPERATOR documented as of this encounter Plan of Treatment Upcoming Encounters Date Type Department Care Team (Late Contact Info) Description 03/27/2024 8:30 AM SHOTBLAST OPERATOR [facility] [address] [place] [id number] Burt Eastman MD [address] [address] 03/27/2024 8:30 AM SHOTBLAST OPERATOR - 03/27/2024 9:00 AM SHOTBLAST OPERATOR Surgery [facility] Periop [address] [place] [address] Burt Eastman MD [address] [address] COLONOSCOPY 04/09/2024 1:15 PM SHOTBLAST OPERATOR [facility] [address] [place] [address] Baron Vergara MD [address] [place] [address] Scheduled Procedures Name Priority Associated Diagnoses Date/Ti me COLONOSCOPY HISTORY OF COLON POLYPS 03/27/2024 8:30 AM SHOTBLAST OPERATOR documented as of this encounter Visit Diagnoses Not on filedocumented in this encounter Additional Health Concerns Infection Onset Date Last Indicated Resolved Time Respiratory Rule-Out 02/08/2022 02/08/2022 023 12:16 AM SHOTBLAST OPERATOR Influenza 02/08/2022 02/08/2022 02/15/2022 12:1 9 AM SHOTBLAST OPERATOR COVID - 19 Confirmed 02/08/2022 02/08/2022 023 12:16 AM SHOTBLAST OPERATOR documented as of this encounter Care Teams Consumer Safety Inspector Relationship Specialty Start Date End Date Daja Kern MD [address] [place], [place] [id number] PCP - General Internal Medicine 03/13/15 documented as of this encounter
--- OUTSIDE RECORDS SUMMARY | 2024-03-03 19:28 | XMS_ITS | Encounter Summary ---
Author Organization [facility] [employer] [facility] Care Team Providers Care Jewelry Mold Maker Name Role Phone Daja Kern MD Primary Care Provider [phone] Encounter Details Date Type Department Care Team (Latest Contact Info) Description 10/12/2021 Travel Social History Tobacco Use Types Packs/Day [...] st Contact Info) Description 03/27/2024 8:30 AM LAYUP WORKER [facility] 1 [facility] [place] [phone] Burt Eastman MD 2 [facility] [address] [address] 03/27/2024 8:30 AM LAYUP WORKER - 03/27/2024 9:00 AM LAYUP WORKER [facility] Periop [address] [place] [address] Burt Eastman MD [address] [address] COLONOSCOPY 04/09/2024 1:15 PM LAYUP WORKER [facility] [address] [place] [address] Baron Vergara MD [address] [place] [address] Scheduled Procedures Name Priority Associated Diagnoses Date/Ti me COLONOSCOPY HISTORY OF COLON POLYPS 03/27/2024 8:30 AM LAYUP WORKER documented as of this encounter Visit Diagnoses Not on filedocumented in this encounter Care Teams Jewelry Mold Maker Relationship Specialty Start Date End Date Daja Kern MD [address] [place] [address] PCP - General Internal Medicine 03/13/15 documented as of this encounter
--- OUTSIDE RECORDS SUMMARY | 2024-03-03 19:28 | XMS_ITS | Encounter Summary ---
Author Organization [facility] Address [address] [place] [address] Phone Care Team Providers Care Route Delivery Driver Name Role Phone Daja Carballo MD Primary Care Provider [phone] Reason for Visit * Reason Comments Abdominal Pain * Auth/Cert Specialty Diagnoses / Procedures Referred By Contac t Referred To Contact Diagnoses Leukocytosis Small bowel obstruction (HCC) Referral ID Status Reason Start Date Expiration Date Visits Re quested Visits Authorized [id number] 1 1 Encounter Details Date Type Department Care Team (Late st Contact Info) Description 08/03/2021 2:02 PM CDT - 08/05/2021 2:28 PM CDT Emergency [facility] Med Surg [address] [place] [phone] Chepe Gongora MD [address] [place] [address] Small bowel obstruction (HCC) Discharge Disposition: Discharged [...] Sign Reading Time Taken Comments Blood Pressure 126/82 08/05/2021 7:10 AM CDT Pulse 94 08/05/2021 7:10 AM CDT Temperature 36.3 ??C (97.3 ??F) 08/05/2021 7:10 AM CD T Respiratory Rate 18 08/05/2021 7:10 AM CDT Oxygen Saturation 97% 08/05/2021 7:10 AM CDT Inhaled Oxygen Concentration - - Weight 117.8 kg (259 lb 12.8 oz) 08/03/2021 6:57 PM CDT Height 157.5 cm (5' 2 ) 08/03/2021 6:57 PM CDT Body Mass Index 47.52 08/03/2021 6:57 PM CDT documented in this encounter Discharge Summaries * Chepe Gongora MD - 08/05/2021 1:08 PM CDT [facility] DISCHARGE SUMMARY Name: Alona Kemp Age: 50 y.o. : 1970 Attending Physician: Chepe Gongora MD Admission Date/Time: 08/03/2021 Expected Discharge Date: Primary Care Physician: DAJA CARBALLO MD Discharging Provider: Chepe Gongora MD INSTRUCTIONS FOR PHYSICIANS ON FOLLOW UP AFTER DISCHARGE: Follow-up Information Follow up With Specialties Details Why Contact Info Daja Carballo MD Internal Medicine Schedule an appointment as soon as possible for a visit in 5day(s) Please call and make hospital follow up appointment within 3-5 days after discharge. Called to schedule appointment and office requested patient makes their own appointment. [address] [facility] [address] Romel Brice MD General Surgery Call in 1 week(s) #1 [facility] [address] Discharge Instructions: Discharge Condition: improved Disposition: Home Diet: Cardiac Diet Activity: activity as tolerated Primary Diagnosis: Small bowel obstruction (HCC) Principal Problem: Small bowel obstruction (HCC) Active Problems: GERD (gastroesophageal reflux disease) Hypertension Hyperlipidemia Bipolar disorder (HCC) Depression Hypothyroid Morbid obesity with BMI of 45.0-49.9, adult (HCC) Anxiety Type 2 diabetes mellitus, without long-term current use of insulin (HCC) Dehydration UTI (urinary tract infection) Present on Admission: ??? Small bowel obstruction (HCC) ??? Hypertension ??? GERD (gastroesophageal reflux disease) ??? Hyperlipidemia ??? Bipolar disorder (HCC) ??? Depression ??? Hypothyroid ??? Morbid obesity with BMI of 45.0-49.9, adult (HCC) ??? Anxiety ??? Type 2 diabetes mellitus, without long-term current use of insulin (HCC) ??? Dehydration ??? UTI (urinary tract infection) Admitting Diagnoses: Small-bowel obstruction , abdominal pain HOSPITAL COURSE: Alona Kemp was admitted 08/03/2021 with Small bowel obstruction (HCC) . Alona Kemp is a 50 y.o.female with a pmhx of diabetes type 2, KWABENA, morbid obesity, hypothyroid, hyperlipidemia, hypertension, GERD, depression, bipolar, anxiety, and cocaine use who presented to the ED with c/o abdominal pain since 99 today. Patient reports associated diaphoresis, decreased appetite, fatigue, headache,dry cough, nausea, diarrhea, weakness, dizziness, and lightheadedness. Patient describes the abdominal pain as a generalized aching/cramping pain rated 8/10 at its worst currently 2/10. Patient has ahistory of small-bowel obstruction in January of last year in which she had an NG-tube placed. The small bowel obstruction at that time resolved with medical management. CT of the abdomen pelvis on this admission revealed moderately severe distension mid small bowel as evidence of developing obstruction. General surgery consult was obtained and an NG tube was placed. Patient reports that her pain has improved since the NG. patient was evaluated by surgery, and underwent small-bowel follow-through the following morning, by the time obstruction had resolved. Patient UA was also positive for pyuria and was started on Rocephin however urine culture was negative, patient was also morbidly obesewith BMI of 47, lifestyle modification with diet and exercise recommended. Patient was discharged to follow-up with primary care physician in 1 week and surgery in 1-2 weeks. Patient advised to return to the ER for worsening symptoms. All the questions by the patient were answered. Surgeries performed during stay: * No surgery found * Consults: Exam Day of Discharge: Temp Av.8 ??F (36.6 ??C) Min: 97.3 ??F (36.3 ??C) Max: 98.4 ??F (36.9 ??C) BP Min: 121/88 Max: 145/96 Pulse Av.8 Min: 94 Max: 106 Resp Av.5 Min: 16 Max: 20 SpO2 Av.5 % Min: 95 % Max: 97 % BMI: Body mass index is 47.52 kg/m??. Exam: General: alert, morbid obesity, not in any distress Skin: Normal skin turgor, no rashes Head: ??Normocephalic, without obvious abnormality HEENT: PERRLA, sclera anicteric Neck: normal, supple, no thyromegaly Heart: ??regular rate and rhythm, S1, S2 normal, no murmur, click, rub or gallop Lungs: ?? clear to auscultation bilaterally, no rhonchi or wheezes ? Abdominal: soft, diffuse tenderness; bowel sounds normal; no masses, ??no organomegaly Extremities: normal strength, tone, and muscle mass Neuro: oriented x3, CN II-XII intact Psychological: ??appropriate Lab / Imaging Review: Lab Results Component Value Date WBC 6.89 08/05/2021 HEMOGLOBIN 12.6 08/05/2021 HEMATOCRIT 41.2 08/05/2021 PLATELETCNT 180 08/05/2021 MCV 97.9 (H) 08/05/2021 Lab Results Component Value Date SODIUM 140 08/05/2021 POTASSIUM 3.6 08/05/2021 CHLORIDE 107 08/05/2021 CO2VEN 25 08/05/2021 ANIONGAP 11.6 08/05/2021 GLUCOSE 89 08/05/2021 BUN 14 08/05/2021 CREATININE 0.47 (L) 08/05/2021 BCRATIO8 30 (H) 08/05/2021 TOTALPROTEIN 7.6 08/03/2021 ALBUMIN 4.2 08/03/2021 CALCIUM 8.7 (L) 08/05/2021 TBIL 0.4 08/03/2021 SGOTAST 16 08/03/2021 SGPTALT 21 08/03/2021 ALKALINEPHO 111 (H) 08/03/2021 GFRNA >60 08/05/2021 GFRA >60 08/05/2021 Lab Results Component Value Date GLUCOSEPOCT 100 (H) 08/05/2021 Lab Results Component Value Date INR 1.4 (H) 10/11/2018 PTP 16.8 (H) 10/11/2018 Lab Results Component Value Date HGBA1C 5.7 08/04/2021 Lab Results Component Value Date [id number] 251 08/25/2015 No results found for: CPK, CPKI, CKMB, CKMBNI, CKMBPOCT, CKMBRELINDX, TROPONINI, POCTRP Lab Results Component Value Date FERRITIN 18 08/25/2015 No components found for: FOLATE No results found for: PHARTERIAL, PO2ART, ANY5CEO, CO2ART, O2ART Lab Results Component Value Date LACTICA 0.6 02/22/2021 XR ABDOMEN KUB FLAT PLATE Result Date: 08/03/2021 IMPRESSION: NG tube projects over gastric body appropriately. XR ABDOMEN KUB FLAT PLATE Result Date: 08/03/2021 IMPRESSION: 1. The tip of the nasogastric tube loops within the gastroesophageal junction with tip terminating cephalad within the distal esophagus. Recommend repositioning. Findings discussed with Sharri tillman at approximately 6:20 p.m. on 08/03/2021. XR ABDOMINAL SERIES WITH CHEST VIEW Result Date: 08/03/2021 IMPRESSION: Gaseous distension primarily small bowel with air-fluid levels raises concern for earlysmall-bowel obstruction as discussed above. No acute chest abnormality. XR CHEST 2 VIEWS Result Date: 08/02/2021 IMPRESSION: No acute findings. XR SMALL BOWEL FOLLOW THROUGH Result Date: 08/04/2021 IMPRESSION: No complete small bowel obstruction. Mildly dilated small bowel loops which may reflectpartial obstruction. CT ABDOMEN PELVIS W/ CONTRAST Result Date: 08/03/2021 IMPRESSION: Moderately severe distension mid small bowel as evidence of developing obstruction withtransition point in the mid to distal segments without definite underlying etiology identified. No change probable hepatic cysts. DISCHARGE MEDICATION LIST: Medication List START taking these medications ondansetron 4 MG Tab-disperse Commonly known as: ZOFRAN-ODT Take 1 Tablet by mouth every 6 hours as needed for Nausea - 1st line. CONTINUE taking these medications Aripiprazole 20 MG [...] 75 MG Caps Commonly known as: LYRICA sertraline 100 MG Tabs Commonly known as: ZOLOFT simvastatin 10 MG Tabs Commonly known as: ZOCOR traZODone 50 MG Tabs Commonly known as: DESYREL triamterene-hydrochlorothiazide 37.5-25 MG Tabs Commonly known as: MAXZIDE Trulicity 1.5 MG/0.5ML Sopn Generic drug: Dulaglutide STOP taking these medications diclofenac 50 MG Tabs Commonly known as: CATAFLAM diphenhydrAMINE 50 MG Caps Commonly known as: BENADRYL ibuprofen 600 MG Tabs Commonly known as: MOTRIN Where to Get Your Medications Information about where to get these medications is not yet available Ask your nurse or doctor about these medications ?? ondansetron 4 MG Tab-disperse Time spent on interview, examination, final orders, recommendations, and care coordination for thishospital discharge: Greater than 30 minutes spent in coordinating care Thank you very much for allowing the [facility] Adult [facility]ist [facility] to participate in the care of this patient. If you have any questions, please don't hesitate to call. Signed: Chepe Gongora MD, 08/05/2021, 1:08 PM CDT documented in this encounter Medications [...] Progress Notes * Romel Brice MD - 08/05/2021 8:07 AM CDT General surgery progress note This is a 50-year-old morbid obese female, presented with suspicious small-bowel obstruction Small-bowel follow-through was normal No major events overnight Denies any nausea or vomiting On exam She is awake and alert Chest clear Abdomen soft Plan Okay to be discharged from surgical standpoint Patient needs to quit cocaine abuse By: Romel Brice MD; 08/05/2021, 8:07 AM CDT * Chepe Gongora MD - 08/04/2021 3:56 PM CDT [facility] INPATIENT DAILY PROGRESS NOTE Alona Kemp is a 50 y.o. female at Hospital LOS: 1 day Assessment: Active Hospital Problems Diagnosis Date Noted ??? Small bowel obstruction (HCC) 08/03/2021 ??? Anxiety 08/03/2021 ??? Type 2 diabetes mellitus, without long-term current use of insulin (HCC) 08/03/2021 ??? Dehydration 08/03/2021 ??? UTI (urinary tract infection) 08/03/2021 ??? Morbid obesity with BMI of 45.0-49.9, adult (HCC) 02/20/2021 ??? Hypertension ??? GERD (gastroesophageal reflux disease) ??? Hyperlipidemia ??? Bipolar disorder (HCC) ??? Depression ??? Hypothyroid Resolved Hospital Problems No resolved problems to display. Vitals: 08/03/21 2136 08/04/21 0706 08/04/21 0754 08/04/21 1406 Temp: 97.3 ??F (36.3 ??C) 97.9 ??F (36.6 ??C) 98.4 ??F (36.9 ??C) TempSrc: Tympanic Tympanic Tympanic Heart Rate (Monitor): 93 Pulse: 106 94 106 Resp: 18 18 20 BP: 122/79 122/82 (!) 145/96 Height: Weight: SpO2: 94% 94% 95% 95% O2 Device: None (Room air) Body mass index is 47.52 kg/m??. I/O last 3 completed shifts: In: 2958.3 [I.V.:2838.3; NG/GT:120] Out: 350 [Emesis/NG output:350] Plan: Plan Assessment & Plan: 1. Small-bowel obstruction: CT scan of the abdomen and pelvis showed distention of small bowel withair-fluid levels, possibility of early bowel obstruction, patient was kept NPO and started on NG suctioning, pain control with narcotics, patient was evaluated by surgery underwent small-bowel follow-through, obstruction resolved. 2. UTI: UA was positive, patient also symptomatic, urine culture pending, currently on Rocephin IV. 3. Diabetes mellitus type 2: Blood glucose was well controlled, hemoglobin A1c 5.7, discontinue insulin. 4. Morbid obesity: Patient has BMI of 47, lifestyle modification with diet and exercise recommended. 5. Hypothyroidism: Continue Synthroid 6. Hypertension: Blood pressure was initially elevated however later stabilized. Continue home medication. 7. Dyslipidemia: Continue statin 8. Disposition: Home tomorrow 9. VTE Prophylaxis: Lovenox 40mg Q24h 10. Code Status: Code Status: Full Code Plan for discharge tomorrow Subjective: Interval History: No acute events overnight. Patient does not complain of any new symptoms. Feels better, strict small-bowel obstruction resolved, patient on trial of clear liquid and advance as tolerated Review of Systems: A 14 point comprehensive review of systems was negative, except as documented in HPI. Intake/Output Summary (Last 24 hours) at 08/04/2021 1556 Last data filed at 08/04/2021 0600 Gross per 24 hour Intake 2958.33 ml Output 350 ml Net 2608.33 ml Inpatient Scheduled Medications: [START ON 08/05/2021] ARIPiprazole, 20 mg, Daily DULoxetine, 60 mg, Nightly famotidine (PEPCID) IV, 20 mg, BID insulin lispro (HumaLOG) injection, 1-6 Units, Q6H [START ON 08/05/2021] levothyroxine, 50 mcg, Daily [START ON 08/05/2021] losartan, 50 mg, Daily metoprolol tartrate, 12.5 mg, BID naproxen, 250 mg, BID pregabalin, 75 mg, BID [START ON 08/05/2021] sertraline, 150 mg, Daily simvastatin, 10 mg, Nightly traZODone, 100 mg, Nightly [START ON 08/05/2021] triamterene-hydrochlorothiazide, 1 Tablet, Daily Inpatient PRN Medications: acetaminophen, 650 mg, Q4H PRN Or acetaminophen, 650 mg, Q4H PRN aluminum & magnesium hydroxide-simethicone, 20 mL, Q6H PRN baclofen, 20 mg, BID PRN calcium carbonate, 1,000 mg, Q8H PRN glucose, 15 g, PRN Or dextrose, 12.5 g, PRN Or glucagon, 1 mg, PRN Or glucagon, 1 mg, PRN ondansetron, 4 mg, Q6H PRN Or ondansetron, 4 mg, Q6H PRN phenol, 1 [place], PRN Inpatient IV Infusions: sodium chloride, Last Rate: 100 mL/hr at 08/04/21 1435 Objective: Exam: General: alert, morbid obesity, not in any distress Skin: Normal skin turgor, no rashes Head: Normocephalic, without obvious abnormality HEENT: PERRLA, sclera anicteric Neck: normal, supple, no thyromegaly Heart: regular rate and rhythm, S1, S2 normal, no murmur, click, rub or gallop Lungs: clear to auscultation bilaterally, no rhonchi or wheezes Abdominal: soft, diffuse tenderness; bowel sounds normal; no masses, no organomegaly Extremities: normal strength, tone, and muscle mass Neuro: oriented x3, CN II-XII intact Psychological: appropriate Lab Results: No results found for: PHARTERIAL, PO2ART, HYJ1BBB, CO2ART, O2ART Lab Results Component Value Date WBC 14.69 (H) 08/03/2021 HEMOGLOBIN 15.3 08/03/2021 HEMATOCRIT 48.3 (H) 08/03/2021 PLATELETCNT 333 08/03/2021 MCV 95.3 08/03/2021 Lab Results Component Value Date SODIUM 133 (L) 08/03/2021 POTASSIUM 4.0 08/03/2021 CHLORIDE 97 (L) 08/03/2021 CO2VEN 21 (L) 08/03/2021 ANIONGAP 19.0 08/03/2021 GLUCOSE 112 (H) 08/03/2021 BUN 20 08/03/2021 CREATININE 0.72 08/03/2021 BCRATIO8 28 (H) 08/03/2021 TOTALPROTEIN 7.6 08/03/2021 ALBUMIN 4.2 08/03/2021 CALCIUM 9.7 08/03/2021 TBIL 0.4 08/03/2021 SGOTAST 16 08/03/2021 SGPTALT 21 08/03/2021 ALKALINEPHO 111 (H) 08/03/2021 GFRNA >60 08/03/2021 GFRA >60 08/03/2021 No results found for: CPK, CPKI, CKMB, CKMBNI, CKMBPOCT, CKMBRELINDX, TROPONINI, POCTRP No components found for: FOLATE Lab Results Component Value Date LACTICA 0.6 02/22/2021 Lab Results Component Value Date [id number] 251 08/25/2015 Lab Results Component Value Date FERRITIN 18 08/25/2015 Lab Results Component Value Date GLUCOSEPOCT 102 (H) 08/04/2021 EKG: EKG 12 LEAD Result Date: 11/04/2020 Sinus tachycardia Left ventricular hypertrophy by voltage only Comparison Summary: No serial comparison made Summary: Abnormal ECG Confirmed by Heath Pickens [id number] on 11/04/2020 11:31:50 AM Imaging: XR ABDOMEN KUB FLAT PLATE Result Date: 08/03/2021 IMPRESSION: NG tube projects over gastric body appropriately. XR ABDOMEN KUB FLAT PLATE Result Date: 08/03/2021 IMPRESSION: 1. The tip of the nasogastric tube loops within the gastroesophageal junction with tip terminating cephalad within the distal esophagus. Recommend repositioning. Findings discussed with Sharri tillman at approximately 6:20 p.m. on 08/03/2021. XR SMALL BOWEL FOLLOW THROUGH Result Date: 08/04/2021 IMPRESSION: No complete small bowel obstruction. Mildly dilated small bowel loops which may reflectpartial obstruction. CT ABDOMEN PELVIS W/ CONTRAST Result Date: 08/03/2021 IMPRESSION: Moderately severe distension mid small bowel as evidence of developing obstruction withtransition point in the mid to distal segments without definite underlying etiology identified. No change probable hepatic cysts. By: Chepe Gongora MD, 08/04/2021 3:56 PM CDT documented in this encounter H&P Notes * Eleanor Whittaker, ACADEMIC ASSOCIATE, CORRESPONDENCE SPECIALIST - 08/03/2021 7:55 PM CDT Images from the original note were not included. HOSPITALIST ADMISSION HISTORY & PHYSICAL EXAM PATIENT NAME: Alona Kemp, : 1970, MR#[id number] CHIEF COMPLAINT Abdominal pain HPI Alona Kemp is a 50 y.o. female with a pmhx of diabetes type 2, KWABENA, morbid obesity, hypothyroid,hyperlipidemia, hypertension, GERD, depression, bipolar, anxiety, and cocaine use who presented to the ED with c/o abdominal pain since 0100 today. Patient reports associated diaphoresis, decreased appetite, fatigue, headache, dry cough, nausea, diarrhea, weakness, dizziness, and lightheadedness. Patient describes the abdominal pain as a generalized aching/cramping pain rated 8/10 at its worst currently 2/10. Patient has a history of small-bowel obstruction in January of last year in which shehad an NG-tube placed. The small bowel obstruction at that time resolved with medical management. CT of the abdomen pelvis on this admission revealed moderately severe distension mid small bowel as evidence of developing obstruction. General surgery consult was obtained and an NG tube was placed. Patient reports that her pain has improved since the NG. Patient lives at home alone a cane to ambulate. HOME MEDICATIONS: Prior to Admission Medications Prescriptions Last Dose Informant Patient Reported? Taking? Aripiprazole 20 MG Tablet 08/02/2021 at 0800 Yes Yes Sig: Take 20 mg by mouth daily. DULoxetine (CYMBALTA) [address] Yael 08/02/2021 at 2100 Yes Yes Sig: Take 60 mg by mouth nightly. Trulicity 1.5 MG/0.5ML Solution Pen-injector 08/01/2021 at Unknown time Yes Yes Si.5 mg by Subcutaneous route once a week. On sundays baclofen (LIORESAL) 20 MG Tablet 08/02/2021 at 2200 Yes Yes Sig: Take 20 mg by mouth 2 times daily as needed. diclofenac (CATAFLAM) 50 MG Tablet 07/27/2021 at Unknown time Yes Yes Sig: Take 75 mg by mouth 2 times daily. diphenhydrAMINE (BENADRYL) 50 MG Capsule 07/03/2021 at Unknown time Yes Yes Sig: Take 50 mg by mouth nightly as needed. ibuprofen (MOTRIN) 600 MG Tablet 07/27/2021 at Unknown time No Yes Sig: Take 1 Tablet by mouth every 6 hours as needed for Moderate or more severe pain or Fever. irbesartan (AVAPRO) 150 MG Tablet 08/02/2021 at 0800 Yes Yes Sig: Take 150 mg by mouth daily. levothyroxine (SYNTHROID) 50 MCG Tablet 08/02/2021 at 0800 Pharmacy Yes Yes Sig: Take 50 mcg by mouth daily. Indications: Underactive Thyroid metoprolol Succinate (TOPROL-XL) 25 MG TABLET SR 24 HR 08/02/2021 at 0800 Yes Yes Sig: Take by mouth daily. omeprazole (PriLOSEC) 40 MG CAPSULE DELAYED RELEASE 08/02/2021 at 0800 No Yes Sig: Take 1 Capsule by mouth daily. pregabalin (LYRICA) 75 MG Capsule 07/27/2021 at Unknown time Yes Yes Sig: Take 75 mg by mouth 2 times daily. sertraline (ZOLOFT) 100 MG Tablet 08/02/2021 at 0800 Yes Yes Sig: Take 150 mg by mouth daily. simvastatin (ZOCOR) 10 MG Tablet 07/27/2021 at Unknown time Yes Yes Sig: Take 10 mg by mouth every evening. traZODone (DESYREL) 50 MG Tablet 07/27/2021 at 2100 Yes Yes Sig: Take 100 mg by mouth nightly. triamterene-hydrochlorothiazide (MAXZIDE) 37.5-25 MG Tablet 08/02/2021 at 0800 Yes Yes Sig: Take 1 Tab by mouth daily. 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 Jarvis Hopkins, PAC (Physician Linen Room Attendant) Sulfa Antibiotics Allergy 01-Sep-2015 Severity: Medium Reactions: Sandra Quinn RN Topiramate Intolerance 09-Aug-2017 Severity: High Reactions: Other (see Comments) Comment: Difficulty with speech and word finding. Jarvis Hopkins, PAC (Physician Linen Room Attendant) Ziprasidone Hcl Unknown 09-Aug-2017 Severity: High Reactions: Other (see Comments) Comment: Abnormal mouth movements Jarvis Hopkins, PAC (Physician Linen Room Attendant) REVIEW OF SYSTEMS: Review of Systems Constitutional: Positive for diaphoresis and malaise/fatigue. Negative for chills and fever. Decreased appetite Eyes: Negative for blurred vision and double vision. Respiratory: Positive for cough. Negative for shortness of breath. Cardiovascular: Negative for chest pain and leg swelling. Gastrointestinal: Positive for abdominal pain, diarrhea and nausea. Negative for constipation and vomiting. Genitourinary: Negative for dysuria, frequency and urgency. Musculoskeletal: Negative for falls and myalgias. Neurological: Positive for dizziness, weakness and headaches. Negative for tingling, sensory changeand loss of consciousness. PAST MEDICAL HISTORY She has a past medical history of Adenomatous colon polyp, Anxiety, Bipolar disorder ([facility]), Cocaineabuse ([facility]), DDD (degenerative disc disease), lumbar, Depression, GERD (gastroesophageal reflux disease), HLD (hyperlipidemia), HTN (hypertension), Hypothyroid, IBS (irritable bowel syndrome), Morbidobesity ([facility]), NAFLD (nonalcoholic fatty liver disease), Nephrocalcinosis, KWABENA (obstructive sleep apnea), SBO (small bowel obstruction) ([facility]) (09/2018), and Vitamin D deficiency. PAST SURGICAL HISTORY: has a past surgical history that includes Section (1994); Cholecystectomy (2004); EGD (2012?); Colonoscopy; Zap Tooth Extraction (1991); Colonoscopy (N/A, 11/16/2018); and [...] drink alcohol. PHYSICAL EXAM : VITALS: BP 122/79 Pulse 106 Temp 97.3 ??F (36.3 ??C) (Tympanic) Resp 18 Ht 5' 2 (1.575 m) Wt 259 lb 12.8 oz (117.8 kg) LMP 11/12/2019 SpO2 94% BMI 47.52 kg/m?? Temp (24hrs), Av.9??F (36.6 ??C), Min:97.3 ??F (36.3 ??C), Max:98.6 ??F (37 ??C) Weight: Wt Readings from Last 1 Encounters: 08/03/21 259 lb 12.8 oz (117.8 kg) Body mass index is 47.52 kg/m??. EXAM: Physical Exam Vitals and nursing note reviewed. Constitutional: Appearance: She is morbidly obese. She is ill-appearing. Comments: Adult female sitting up in bed in no acute distress. HENT: Nose: Comments: NG tube to right nare, secured. Abdominal: General: Bowel sounds are decreased. Tenderness: There is generalized abdominal tenderness. Neurological: Mental Status: She is alert. DATA REVIEW : XR ABDOMEN KUB FLAT PLATE Result Date: 08/03/2021 IMPRESSION: NG tube projects over gastric body appropriately. XR ABDOMEN KUB FLAT PLATE Result Date: 08/03/2021 IMPRESSION: 1. The tip of the nasogastric tube loops within the gastroesophageal junction with tip terminating cephalad within the distal esophagus. Recommend repositioning. Findings discussed with Sharri tillman at approximately 6:20 p.m. on 08/03/2021. XR ABDOMINAL SERIES WITH CHEST VIEW Result Date: 08/03/2021 IMPRESSION: Gaseous distension primarily small bowel with air-fluid levels raises concern for earlysmall-bowel obstruction as discussed above. No acute chest abnormality. CT ABDOMEN PELVIS W/ CONTRAST Result Date: 08/03/2021 IMPRESSION: Moderately severe distension mid small bowel as evidence of developing obstruction withtransition point in the mid to distal segments without definite underlying etiology identified. No change probable hepatic cysts. UA: Results for orders placed or performed during the hospital encounter of 08/03/21 URINALYSIS REFLEX IF INDICATED BY ABNORMAL RESULTS Result Value Ref Range Status SPECIFIC GRAVITY 1.015 1.003 - 1.030 Final URINE PH 6.0 5.0 - 9.0 Final WBC ESTERASE 25 /ul (A) Negative Final NITRITE Negative Negative Final PROTEIN, RANDOM URINE 30 mg/dL (A) Negative Final URINE GLUCOSE, QUAL Negative Negative Final URINE KETONES Negative Negative Final UROBILINOGEN Normal Normal mg/dL Final URINE BLOOD Negative Negative dylan/ul Final URINALYSIS COLOR Yellow Final URINALYSIS CLARITY Very Cloudy Final WBC (Urine) 6-10 (A) Negative, 0-5 /hpf Final URINE RBC'S 0-2 Negative, 0-2 /hpf Final EPITHELIAL CELLS Large amount squamous /lpf Final BACTERIA, URINE Moderate (A) Negative /hpf Final CBC: Lab Results Component Value Date WBC 14.69 (H) 08/03/2021 RBC 5.07 08/03/2021 HEMOGLOBIN 15.3 08/03/2021 HEMATOCRIT 48.3 (H) 08/03/2021 PLATELETCNT 333 08/03/2021 CMP: Lab Results Component Value Date SODIUM 133 (L) 08/03/2021 POTASSIUM 4.0 08/03/2021 CHLORIDE 97 (L) 08/03/2021 CO2VEN 21 (L) 08/03/2021 ANIONGAP 19.0 08/03/2021 GLUCOSE 112 (H) 08/03/2021 BUN 20 08/03/2021 CREATININE 0.72 08/03/2021 BCRATIO8 28 (H) 08/03/2021 TOTALPROTEIN 7.6 08/03/2021 ALBUMIN 4.2 08/03/2021 CALCIUM 9.7 08/03/2021 TBIL 0.4 08/03/2021 SGPTALT 21 08/03/2021 ALKALINEPHO 111 (H) 08/03/2021 GFRNA >60 08/03/2021 GFRA >60 08/03/2021 Mg: Lab Results Component Value Date MAGNESIUM 2.0 08/03/2021 Outside reports reviewed: ER records, radiology reports, lab reports, xray reports, historical medical records. ASSESSMENT: Active Hospital Problems Diagnosis Date Noted ??? Small bowel obstruction (HCC) 08/03/2021 ??? Anxiety 08/03/2021 ??? Type 2 diabetes mellitus, without long-term current use of insulin (HCC) 08/03/2021 ??? Dehydration 08/03/2021 ??? UTI (urinary tract infection) 08/03/2021 ??? Morbid obesity with BMI of 45.0-49.9, adult ([facility]) 02/20/2021 ??? Hypertension ??? GERD (gastroesophageal reflux disease) ??? Hyperlipidemia ??? Bipolar disorder ([facility]) ??? Depression ??? Hypothyroid Resolved Hospital Problems No resolved problems to display. PLAN: Small Bowel Obstruction -CT abd/pelvis revealed gaseous distension primarily small bowel with air-fluid levels raises concern for early small-bowel obstruction -General surgery consult, appreciate recommendations -NPO; bowel rest -IVF -NGT to LIWS -Anti-emetics -Pain control -Monitor CBC -SBFT in AM UTI -Positive u/a and symptomatic -Urine cx pending -Will treat empirically until receive cx results; Treating with Rocephin IV Dehydration -IVF Diabetes mellitus -Type 2 -Qsohdxd=887 -Accu checks Q6 -Hold trulicity -Mild with accu checks -HgbA1C= -Diabetic diet when tolerating PO Anxiety/bipolar/depression -Continue home dose medications GERD -Convert to IV PPI HTN -Elevated BP (supsect 2/2 pain), last DS=869/79 -Continue home dose medications -Monitor hemodynamic status Hyperlipidemia -Continue home dose statin Hypothyroidism -Continue home dose levothyroxine Morbid obesity -BMI= 47.52 -the patient would benefit from weight loss with diet and exercise Home meds to be resumed as appropriate. Other changes to meds to be made based on progress during hospitalization. Code Status: CPR-Full Treatment DVT Prophylaxis: Sequential Compression Devices Consult with: Surgery Advance Care Planning: Aggregate face to face time discussing end of life advance care planning with patient 16 minutes. Discussed CPR/Intubation/Treatment Goals/Quality of life/Intensity of Care. Patient desires: CPR-Full Treatment Eleanor Whittaker APRN, CNP 08/04/2021 12:49 AM CDT Primary Care Physician: DAJA CARBALLO MD Cosigned by Chepe Gongora MD at 08/04/2021 8:55 AM CDT Associated attestation - Chepe Gongora MD - 08/04/2021 8:55 AM CDT I saw and examined the patient with the OPERATIONS AND MAINTENANCE TECHNICIAN/PA on 08/04/2021. I personally performed the exam and medical decision making. I agree with the OPERATIONS AND MAINTENANCE TECHNICIAN/PA???s chief complaint, history, exam, and medical decision. documented in this encounter Consult Notes * Romel Brice MD - 08/03/2021 8:18 PM CDTAssociated Order(s): IP CONSULT TO GENERAL SURGERY Images from the original note were not included. GENERAL SURGERY CONSULTATION NOTE Admit Date: 08/03/2021 Date of Consultation: 08/04/2021 Admitting Diagnosis: Leukocytosis [D72.829] Small bowel obstruction (HCC) [K56.609] Reason for Consultation: management recommendations. Assessment Assessment: Consult for SBO Obesity Bipolar disorder Cocaine abuse GERD HLD HTN KWABENA Hx of lap carlton and c section Hepatic cysts Co-morbidities include: GERD, obesity, cocaine abuse last use 1 week ago. Prior Anesthesia problems: None Advance Directives: Full Code Plan Recommendations: No acute surgical intervention needed ast this time Serial abdominal exams Small-bowel follow-through reviewed, contrast in colon at 4:00 a.m. No evidence of bowel obstruction, DC NG and advanced diet as tolerated Discussed with nurse Diagnostic Studies: CT was reviewed by me, possible SBO, no free air. Hepatic cysts. Procedures: None Thank you very much for allowing me to participate in the care of this patient. If you have any questions, please do not hesitate to call. Subjective Subjective: Alona Kemp is a 50 y.o. female admitted by Chepe Gongora MD, and consultation requested by hospitalist. HPI: This is a very pleasant 50 yo female, with hx of multiple medical issues, including cocaine abuse, morbid obesity, HLD, HTN and KWABENA, hx of lap carlton and c section, last colonoscopy 2018 with some polyps, know to surgery service seen on January 2021, SBFT showed possible ileous. She presented this time via the ED with complains of abdominal pain, epigastric, associated with nausea and loose stools. Denies fever or emesis. CT showed possible SBO, surgery consulted. Principal Problem: Small bowel obstruction (HCC) Active Problems: GERD (gastroesophageal reflux disease) Hypertension Hyperlipidemia Bipolar disorder (HCC) Depression Hypothyroid Morbid obesity with BMI of 45.0-49.9, adult ([facility]) Anxiety Type 2 diabetes mellitus, without long-term current use of insulin ([facility]) Dehydration UTI (urinary tract infection) PMHx: She has a past medical history of Adenomatous colon polyp, Anxiety, Bipolar disorder ([facility]), Cocaine abuse ([facility]), DDD (degenerative disc disease), lumbar, Depression, GERD (gastroesophageal reflux disease), HLD (hyperlipidemia), HTN (hypertension), Hypothyroid, IBS (irritable bowel syndrome), Morbid obesity ([facility]), NAFLD (nonalcoholic fatty liver disease), Nephrocalcinosis, KWABENA (obstructive sleep apnea), SBO (small bowel obstruction) ([facility]) (09/2018), and Vitamin D deficiency. 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 Jarvis Hopkins PAC (Physician Linen Room Attendant) Sulfa Antibiotics Allergy 01-Sep-2015 Severity: Medium Reactions: Sandra Quinn RN Topiramate Intolerance 09-Aug-2017 Severity: High Reactions: Other (see Comments) Comment: Difficulty with speech and word finding. Jarvis Hopkins PAC (Physician Linen Room Attendant) Ziprasidone Hcl Unknown 09-Aug-2017 Severity: High Reactions: Other (see Comments) Comment: Abnormal mouth movements Jarvis Hopkins PAC (Physician Linen Room Attendant) MEDS: Current Facility-Administered Medications: ??? 0.9 % sodium chloride solution ??? acetaminophen (TYLENOL) 650 MG/20.3ML solution 650 mg OR acetaminophen (TYLENOL) suppository 650 mg ? ? aluminum & magnesium hydroxide-simethicone (MAALOX, MYLANTA) 200-200-20 MG/5ML SUSP 20 mL ??? [START ON 08/05/2021] ARIPiprazole (ABILIFY) tablet 20 mg ??? baclofen (LIORESAL) tablet 20 mg ??? calcium carbonate (TUMS) chewable tablet 1,000 mg ??? glucose (INSTA-GLUCOSE) 77.4 % gel 15 g OR dextrose 50 % solution 12.5 g OR glucagon injection SOLR 1 mg OR glucagon injection SOLR 1 mg ??? DULoxetine (CYMBALTA) capsule 60 mg ??? famotidine (PF) (PEPCID) injection 20 mg ??? insulin lispro (HumaLOG) 100 UNIT/ML injection 1-6 Units ??? [START ON 08/05/2021] levothyroxine (SYNTHROID) tablet 50 mcg ??? [START ON 08/05/2021] losartan (COZAAR) tablet 50 mg ??? metoprolol tartrate (LOPRESSOR) per half tablet 12.5 mg ??? naproxen (NAPROSYN) tablet 250 mg ??? ondansetron (ZOFRAN-ODT) disintegrating tablet 4 mg OR ondansetron (ZOFRAN) injection 4 mg ??? phenol (CHLORASEPTIC) 1.4 % 1 [place] ??? pregabalin (LYRICA) capsule 75 mg ??? [START ON 08/05/2021] sertraline (ZOLOFT) tablet 150 mg ??? simvastatin (ZOCOR) tablet 10 mg ??? traZODone (DESYREL) tablet 100 mg ??? [START ON 08/05/2021] triamterene-hydrochlorothiazide (MAXZIDE) 37.5-25 MG per tablet 1 Tablet Prior to Admission Medications Prescriptions Last Dose Informant Patient Reported? Taking? Aripiprazole 20 MG Tablet 08/02/2021 at 0800 Yes Yes Sig: Take 20 mg by mouth daily. DULoxetine (CYMBALTA) [address] Yael 08/02/2021 at 2100 Yes Yes Sig: Take 60 mg by mouth nightly. Trulicity 1.5 MG/0.5ML Solution Pen-injector 08/01/2021 at Unknown time Yes Yes Si.5 mg by Subcutaneous route once a week. On sundays baclofen (LIORESAL) 20 MG Tablet 08/02/2021 at 2200 Yes Yes Sig: Take 20 mg by mouth 2 times daily as needed. diclofenac (CATAFLAM) 50 MG Tablet 07/27/2021 at Unknown time Yes Yes Sig: Take 75 mg by mouth 2 times daily. diphenhydrAMINE (BENADRYL) 50 MG Capsule 07/03/2021 at Unknown time Yes Yes Sig: Take 50 mg by mouth nightly as needed. ibuprofen (MOTRIN) 600 MG Tablet 07/27/2021 at Unknown time No Yes Sig: Take 1 Tablet by mouth every 6 hours as needed for Moderate or more severe pain or Fever. irbesartan (AVAPRO) 150 MG Tablet 08/02/2021 at 0800 Yes Yes Sig: Take 150 mg by mouth daily. levothyroxine (SYNTHROID) 50 MCG Tablet 08/02/2021 at 0800 Pharmacy Yes Yes Sig: Take 50 mcg by mouth daily. Indications: Underactive Thyroid metoprolol Succinate (TOPROL-XL) 25 MG TABLET SR 24 HR 08/02/2021 at 0800 Yes Yes Sig: Take by mouth daily. omeprazole (PriLOSEC) 40 MG CAPSULE DELAYED RELEASE 08/02/2021 at 0800 No Yes Sig: Take 1 Capsule by mouth daily. pregabalin (LYRICA) 75 MG Capsule 07/27/2021 at Unknown time Yes Yes Sig: Take 75 mg by mouth 2 times daily. sertraline (ZOLOFT) 100 MG Tablet 08/02/2021 at 0800 Yes Yes Sig: Take 150 mg by mouth daily. simvastatin (ZOCOR) 10 MG Tablet 07/27/2021 at Unknown time Yes Yes Sig: Take 10 mg by mouth every evening. traZODone (DESYREL) 50 MG Tablet 07/27/2021 at 2100 Yes Yes Sig: Take 100 mg by mouth nightly. triamterene-hydrochlorothiazide (MAXZIDE) 37.5-25 MG Tablet 08/02/2021 at 0800 Yes Yes Sig: Take 1 Tab by mouth daily. Facility-Administered Medications: None Review of Systems: A 14 point comprehensive review of systems was negative, except as documented in HPI. Objective Objective: VITALS: BP (!) 145/96 Pulse 106 Temp 98.4 ??F (36.9 ??C) (Tympanic) Resp 20 Ht 5' 2 (1.575m) Wt 259 lb 12.8 oz (117.8 kg) LMP 11/12/2019 SpO2 95% BMI 47.52 kg/m?? Physical Exam: BP (!) 145/96 Pulse 106 Temp 98.4 ??F (36.9 ??C) (Tympanic) Resp 20 Ht 5' 2 (1.575 m) Wt259 lb 12.8 oz (117.8 kg) LMP 11/12/2019 SpO2 95% BMI 47.52 kg/m?? General appearance alert, cooperative, no distress, appears stated age Head Normocephalic, without obvious abnormality, atraumatic Eyes conjunctivae/corneas clear. PERRL, EOM's intact. Ears normal Nose Nares normal. Septum midline. Mucosa normal. No drainage or sinus tenderness. NG tube in placewith clear output. Throat Lips, mucosa, and tongue normal. Teeth and gums normal Neck supple, symmetrical, trachea midline, no adenopathy, thyroid: not enlarged, symmetric, no tenderness/mass/nodules, no carotid bruit and no JVD Back symmetric, no curvature. ROM normal. No CVA tenderness Lungs clear to auscultation bilaterally Breasts no masses, tenderness Heart regular rate and rhythm, S1, S2 normal, no murmur, click, rub or gallop Abdomen soft, obese, no peritonitis Pelvic Deferred Extremities extremities normal, atraumatic, no cyanosis or edema Pulses 2+ and symmetric Skin Skin color, texture, turgor normal. No rashes or lesions Lymph nodes Cervical, supraclavicular, and axillary nodes normal. Neurologic Normal I&O: Intake/Output Summary (Last 24 hours) at 08/04/2021 1529 Last data filed at 08/04/2021 0600 Gross per 24 hour Intake 2958.33 ml Output 350 ml Net 2608.33 ml Data Review: CBC: Lab Results Component Value Date WBC 14.69 (H) 08/03/2021 RBC 5.07 08/03/2021 HEMOGLOBIN 15.3 08/03/2021 HEMATOCRIT 48.3 (H) 08/03/2021 PLATELETCNT 333 08/03/2021 BMP: Lab Results Component Value Date GLUCOSE 112 (H) 08/03/2021 SODIUM 133 (L) 08/03/2021 POTASSIUM 4.0 08/03/2021 CHLORIDE 97 (L) 08/03/2021 CO2VEN 21 (L) 08/03/2021 BUN 20 08/03/2021 CREATININE 0.72 08/03/2021 CALCIUM 9.7 08/03/2021 Coagulation: Lab Results Component Value Date PTP 16.8 (H) 10/11/2018 INR 1.4 (H) 10/11/2018 Outside reports reviewed: none. Additional Comments: I reviewed the patients new imaging test results. Small- bowel follow-through showed contrast in colon at 4:00 hours after ingestion. By: Romel Brice MD, 08/04/2021, 3:29 PM CDT Attending Provider: Chepe Gongora MD Primary Care Physician: DAJA CARBALLO MD documented in this encounter ED Notes * Jaylin Najera RN - 08/03/2021 6:22 PM CDT Patient to room 240 via stretcher. NG tube in place. IV access in place. Patient belongings in place. No distress noted. * Jaylin Najera RN - 08/03/2021 5:30 PM CDT Ng tube inserted at this time. * Jaylin Najera RN - 08/03/2021 4:11 PM CDT Patient to CT. * Sharri Tillman PAC - 08/03/2021 3:00 PM CDT Chief Complaint Patient presents with ??? Abdominal Pain HPI Alona Kemp is a 50 y.o. female who presents via EMS due to abdominal pain which started at 1300 today. Patient states that the pain is in her epigastric and mid abdomen. She has associated nausea. She states that she also had four episodes of loose stool today. She denies any fever, vomiting, chest pain, sob, dysuria. She has a history of a small bowel obstruction in 01/2021 and had a NG tube at that time. She has PSH of cholecystectomy and a c section. Current Facility-Administered Medications Medication Dose Route Frequency Provider Last Rate Last Admin ??? 0.9 % sodium chloride solution Intravenous Once Sharri Tillman, MIKE Current Outpatient Medications Medication Sig Dispense Refill ??? Aripiprazole 20 MG Tablet Take 20 mg by mouth daily. ??? baclofen (LIORESAL) 20 MG Tablet Take 20 mg by mouth 2 times daily as needed. ??? diclofenac (CATAFLAM) 50 MG Tablet Take 75 mg by mouth 2 times daily. ??? diphenhydrAMINE (BENADRYL) 50 MG Capsule Take 50 mg by mouth nightly as needed. ??? DULoxetine (Cymbalta) [address] Particles Take 60 mg by mouth nightly. ??? ibuprofen (MOTRIN) 600 MG Tablet Take 1 Tablet by mouth every 6 hours as needed for Moderate ormore severe pain or Fever. 30 Tablet 0 ??? irbesartan (AVAPRO) 150 MG Tablet Take 150 mg by mouth daily. ??? levothyroxine (SYNTHROID) 50 MCG Tablet Take 50 mcg by mouth daily. Indications: Underactive Thyroid ??? metoprolol Succinate (TOPROL-XL) 25 MG TABLET SR 24 HR Take 25 mg by mouth daily. ??? omeprazole (PriLOSEC) 40 [...] Tablet Take 1 Tab by mouth daily. Allergies Allergen Reactions ??? Geodon [Ziprasidone Hcl] [...] POLYPS, BIOPSIES; Surgeon: Damian Gallardo DO; Location: [facility]; Service: Gastroenterology ??? EGD 2012? [facility] ??? UPPER GASTROINTESTINAL ENDOSCOPY N/A 02/06/2019 Procedure: EGD, SMALL BOWEL BIOSY, GASTRIC POLYP, SAMANTHA TEST; Surgeon: Damian Gallardo DO; Location: [facility]; Service: Gastroenterology ??? WISDOM [...] History Narrative ??? Not on file BP 142/88 Pulse 110 Temp 98.6 ??F (37 ??C) (Tympanic) Resp 19 Ht 5' 2 (1.575 m) Wt 255 lb (115.7 kg) LMP 11/12/2019 SpO2 96% BMI 46.64 kg/m?? Review of Systems Constitutional: Negative for chills and fever. HENT: Negative for congestion, ear pain, rhinorrhea and sore throat. Eyes: Negative for discharge. Respiratory: Negative for cough, chest tightness, shortness of breath and wheezing. Cardiovascular: Negative for chest pain and palpitations. Gastrointestinal: Positive for abdominal pain, diarrhea and nausea. Negative for vomiting. Genitourinary: Negative for difficulty urinating and [...] Tenderness: There is abdominal tenderness in the right upper quadrant and epigastric area. There isno guarding or rebound. Musculoskeletal: General: Normal range of motion. Cervical back: Normal range of motion. Skin: General: Skin is warm and dry. Neurological: Mental Status: She is alert and oriented to person, place, and time. Cranial Nerves: No cranial nerve deficit. Labs Reviewed CMP (COMPREHENSIVE METABOLIC PANEL) - Abnormal; Notable for the following components: Result Value SODIUM 133 (*) CHLORIDE 97 (*) CO2, VENOUS 21 (*) GLUCOSE 112 (*) BUN/CREATININE RATIO 28 (*) ALKALINE PHOSPHATASE 111 (*) All other components within normal limits URINALYSIS REFLEX IF INDICATED BY ABNORMAL RESULTS - Abnormal; Notable for the following components: WBC ESTERASE 25 /ul (*) PROTEIN, RANDOM URINE 30 mg/dL (*) WBC (Urine) 6-10 (*) BACTERIA, URINE Moderate (*) All other components within normal limits CBC WITH AUTO DIFFERENTIAL - Abnormal; Notable for the following components: WBC 14.69 (*) HEMATOCRIT (HCT) 48.3 (*) NEUTROPHILS 81.6 (*) LYMPHOCYTES 10.8 (*) ABSOLUTE NEUTROPHILS 11.99 (*) All other components within normal limits LIPASE - Normal CULTURE, URINE COMPLETE BLOOD COUNT (CBC) WITH DIFF Narrative: The following orders were created for panel order CBC with Diff [id number]. Procedure Abnormality Status --------- ------ CBC with Auto Differential[[id number]] Abnormal Final result Please view results for these tests on the individual orders. URINE DRUG SCREEN CT ABDOMEN PELVIS W/ CONTRAST Final Result IMPRESSION: Moderately severe distension mid small bowel as evidence of developing obstruction with transition point in the mid to distal segments without definite underlying etiology identified. No change probable hepatic cysts. URINALYSIS REFLEX IF INDICATED BY ABNORMAL RESULTS Final Result XR ABDOMINAL SERIES WITH CHEST VIEW Final Result IMPRESSION: Gaseous distension primarily small bowel with air-fluid levels raises concern for early small-bowel obstruction as discussed above. No acute chest abnormality. CMP (Comprehensive Metabolic Panel) Final Result CBC with Diff [id number] Final Result Lipase [id number] Final Result Urine Drug Screen (Results Pending) Procedures Imaging Results CT ABDOMEN PELVIS W/ CONTRAST (Final result) Result time 08/03/21 16:58:54 Final result by Armando Cobb MD (08/03/21 16:58:54) Impression: IMPRESSION: Moderately severe distension mid small bowel as evidence of developing obstruction with transition point in the mid to distal segments without definite underlying etiology identified. No change probable hepatic cysts. Narrative: EXAM DESCRIPTION: CT ABDOMEN PELVIS W/ CONTRAST REASON FOR STUDY: Abdominal infection suspected , diarrhea since last night. TECHNIQUE: CT scan of the abdomen and pelvis performed with intravenous and without oral contrast using helical scanning technique with dynamic intravenous contrast injection. Reconstructed coronal and sagittal MPR images reviewed. All images stored on PACS. Automated exposure control was used as a dose optimization technique for this examination. CONTRAST TYPE/DOSE: 80 mL Isovue 370 injected via intravenous COMPARISON: 12/21/2020 FINDINGS: LOWER CHEST: No significant pulmonary abnormalities. No effusion. LIVER: Normal size. Several hypodensities most suggestive of cysts or hemangiomas unchanged from previous. Largest identified in the right lobe greatest dimension of 3.4 cm unchanged. GALLBLADDER: Surgically absent with clips in place. BILE DUCTS: No intrahepatic or extrahepatic ductal dilatation. SPLEEN: Normal size. No focal lesions. PANCREAS: No identified cystic or solid masses. No significant calcifications. No adjacent inflammation or peripancreatic fluid collections. Pancreatic duct not dilated. ADRENALS: Normal. KIDNEYS/URINARY TRACT: Right kidney demonstrates no hydronephrosis. Punctate 0.1 cm upper and lower pole caliceal nonobstructing stones. No hydro ureter. Left kidney demonstrates no hydronephrosis. Punctate nonobstructive lower pole caliceal stone without surrounding induration. No hydroureter. Urinary bladder is unremarkable. GI: The stomach and transverse duodenum appear unremarkable. Proximal small bowel has a normal caliber. Mid small bowel demonstrates moderate fluid and air filled distention extending to the mid to distal segment anteriorly where a transition to a normal caliber distal small bowel is identified. No mass or adenopathy in the region. No induration or unusual fluid collection. The anterior abdominal wall here appears intact without hernia formation. No unusual enhancing portions of bowel, no pneumatosis identified. Cecum, terminal ileum and appendix appear normal. Remainder of colon has a normal caliber. PERITONEUM: No ascites or free air. RETROPERITONEUM: Nonenlarged lymph nodes retroperitoneum, portacaval space likely reactive in nature. REPRODUCTIVE: No significant abnormality. VASCULATURE: No abdominal aortic aneurysm. MUSCULOSKELETAL: No acute findings. Grade 1 anterolisthesis lumbosacral junction with severe endplate degenerative changes, bilateral spondylolysis. OTHER: No other abnormality. THIS IS AN ELECTRONICALLY VERIFIED FINAL REPORT 08/03/2021 4:56 PM - Electronically signed by Armando Cobb M.D. RB: ANANDA Report ID: [id number] Reading Location: [id number] XR ABDOMINAL SERIES WITH CHEST VIEW (Final result) Result time 08/03/21 15:14:52 Final result by Armando Cobb MD (08/03/21 15:14:52) Impression: IMPRESSION: Gaseous distension primarily small bowel with air-fluid levels raises concern for early small-bowel obstruction as discussed above. No acute chest abnormality. Narrative: EXAM DESCRIPTION: XR ABDOMINAL SERIES WITH CHEST VIEW REASON FOR STUDY: abdominal pain starting last night. Patient abdomen is distended and experiencing diarrhea. Patient states that she has history of bowel obstruction TECHNIQUE: Supine and upright views of the abdomen with frontal view chest COMPARISON: 08/02/2021 chest radiograph FINDINGS: Upright view demonstrates severe gaseous distension of primarily small bowel. Moderate distension large bowel in the region of the transverse colon. Multiple air-fluid levels are noted which could be related to ileus with a developing small bowel or proximal large bowel obstruction not excluded. No free intraperitoneal air. Supine views demonstrate gaseous distension most severe in the small bowel. No unusual calcifications or acute bony defects. Frontal view chest demonstrates central vascularity not grossly enlarged. Aortic arch well-defined on the left. Lungs well expanded without consolidation, effusion or pneumothorax. Bony hypertrophic changes obscures the apices. THIS IS AN ELECTRONICALLY VERIFIED FINAL REPORT 08/03/2021 3:12 PM - Electronically signed by Armando Cobb M.D. RB: ANANDA Report ID: [id number] Reading Location: [id number] Labs Reviewed CMP (COMPREHENSIVE METABOLIC PANEL) - Abnormal; Notable for the following components: Result Value SODIUM 133 (*) CHLORIDE 97 (*) CO2, VENOUS 21 (*) GLUCOSE 112 (*) BUN/CREATININE RATIO 28 (*) ALKALINE PHOSPHATASE 111 (*) All other components within normal limits URINALYSIS REFLEX IF INDICATED BY ABNORMAL RESULTS - Abnormal; Notable for the following components: WBC ESTERASE 25 /ul (*) PROTEIN, RANDOM URINE 30 mg/dL (*) WBC (Urine) 6-10 (*) BACTERIA, URINE Moderate (*) All other components within normal limits CBC WITH AUTO DIFFERENTIAL - Abnormal; Notable for the following components: WBC 14.69 (*) HEMATOCRIT (HCT) 48.3 (*) NEUTROPHILS 81.6 (*) LYMPHOCYTES 10.8 (*) ABSOLUTE NEUTROPHILS 11.99 (*) All other components within normal limits LIPASE - Normal CULTURE, URINE COMPLETE BLOOD COUNT (CBC) WITH DIFF Narrative: The following orders were created for panel order CBC with Diff [id number]. Procedure Abnormality Status --------- ------ CBC with Auto Differential[[id number]] Abnormal Final result Please view results for these tests on the individual orders. URINE DRUG SCREEN MDM Coding Clinical Impression 1. Small bowel obstruction (HCC) 2. Leukocytosis Discussed patient with Dr. Brice. He requests an NG tube, hydration, and a small bowel follow through series in the AM. Spoke to Bridgette Faulkner whom accepts admission. Cosigned by John Prabhakar MD at 08/08/2021 4:26 PM CDT Associated attestation - John Prabhakar MD - 08/08/2021 4:26 PM CDT I was available for consultation but was not asked by the ACADEMIC ASSOCIATE/PA to evaluate this patient. I did not personally examine this patient. I defer to the attached note. I have the following additions/revisions: * Jaylin Najera RN - 08/03/2021 2:12 PM CDT Patient states that she did not take her blood pressure medication due to not feeling well * Jaylin Najera RN - 08/03/2021 2:07 PM CDT Patient presents to ED room 10 via [facility] ems with complaint of abdominal pain starting last night. Patient abdomin is distended and experiencing diarrhea. Patient states that she has of bowel obstruction. No distress noted. EMS established 18 gauge left bicep gave 4 mg of zofran and 4 mg of morphine. * Wendy Mobley - 08/03/2021 2:03 PM CDT Bed: [place] [id number] Expected date: 08/03/21 Expected time: 1:58 PM Means of arrival: Ambulance ([facility]) Comments: 4A22 AMH 50F ABD PAIN X 1 DAY OBSTRUCTION documented in this encounter Miscellaneous Notes * Interdisciplinary - Rosina Sheridan RN - 08/05/2021 2:11 PM CDT Patient discharging per private vehicle with family. Education given, no questions or concerns per patient. Patient left at baseline. * Plan of Care - Rosina Sheridan RN - 08/05/2021 10:18 AM CDT Problem: Adult Inpatient Plan of [...] Goal: Acceptable Pain Control Outcome: Outcome Achieved Problem: Pain Acute Goal: Acceptable Pain Control and Functional Ability Outcome: Outcome Achieved * Interdisciplinary - Pb Rodriguez RN - 08/05/2021 5:00 AM CDT Patient resting in bed per shift. Pt complaints of pain medicated per APR. Pt denies SOB per shift.IV fluids infusing. Call light in reach, will continue to monitor. * Plan of Care - Pb Rodriguez RN - 08/05/2021 2:00 AM CDT Problem: Adult Inpatient Plan of Care Goal: Plan of Care Review Outcome: Ongoing (see interventions/notes) Flowsheets Taken 08/05/2021 0624 by Pb Rodriguez RN Outcome Summary: patient denies emesis per shift. pt tolerating regular diet. Taken 08/04/20211999 by Pb Rodriguez RN Today's Goal: no nausea vomiting per shift Taken 08/04/2021 1700 by Maame Benjamin RN Does the patient need assistance with discharge and/or transitioning to the next level of care?: No, no needs anticipated Taken 08/04/2021 0619 by Monika Redmond RN Progress: improving Plan of Care Reviewed With: patient Goal: Absence of Hospital-Acquired Illness or Injury Outcome: Ongoing (see interventions/notes) Intervention: Prevent and Manage VTE (Venous Thromboembolism) Risk Flowsheets (Taken 08/04/20211999) VTE Prevention/Management: sequential compression devices on Goal: Optimal Comfort and Wellbeing Outcome: Ongoing (see interventions/notes) Intervention: Provide Person-Centered Care Flowsheets (Taken 08/04/20211999) Trust Relationship/Rapport: care explained choices provided emotional support provided empathic listening provided questions answered questions encouraged respect patient/family decisions provided safe/supportive environment facilitated nonverbal communication acknowledged thoughts/feelings acknowledged Goal: Readiness for Transition of Care Outcome: Ongoing (see interventions/notes) Problem: Fluid Deficit (Intestinal Obstruction) Goal: Fluid Balance Outcome: Ongoing (see interventions/notes) Problem: Infection (Intestinal Obstruction) Goal: Absence of Infection Signs and Symptoms Outcome: Ongoing (see interventions/notes) Intervention: Prevent or Manage Infection Flowsheets (Taken 08/03/2021 2240 by Monika Redmond RN) Fever Reduction/Comfort Measures: lightweight bedding lightweight clothing Problem: Nausea and Vomiting (Intestinal Obstruction) Goal: Nausea and Vomiting Relief Outcome: Ongoing (see interventions/notes) Problem: Pain (Intestinal Obstruction) Goal: Acceptable Pain Control Outcome: Ongoing (see interventions/notes) Intervention: Monitor and Manage Pain Flowsheets (Taken 08/03/20210 by Monika Redmond, RN) Pain Management Interventions: care clustered pain management plan reviewed with patient/caregiver pillow support provided quiet environment facilitated relaxation techniques promoted Problem: Pain Acute Goal: Acceptable Pain Control and Functional Ability Outcome: Ongoing (see interventions/notes) Intervention: Develop Pain Management Plan Flowsheets (Taken 08/03/20210 by Monika Redmond, RN) Pain Management Interventions: care clustered pain management plan reviewed with patient/caregiver pillow support provided quiet environment facilitated relaxation techniques promoted Intervention: Prevent or Manage Pain Flowsheets (Taken 08/03/20210 by Monika Redmond, RN) Sleep/Rest Enhancement: awakenings minimized regular sleep/rest pattern promoted relaxation techniques promoted * Plan of Care - Maame Benjamin RN - 08/04/2021 8:52 PM CDT Problem: Adult Inpatient Plan of Care Goal: Plan of Care Review Flowsheets Taken 08/04/2021 1700 by Maame Benjamin, RN Outcome Summary: patient had no N/V this shift and she did have BM X2 this shift. NG removed after Xray SBFT completed and resulted. Does the patient need assistance with discharge and/or transitioning to the next level of care?: No, no needs anticipated Taken 08/04/2021 0619 by Monika Redmond, AGUILA Progress: improving Plan of Care Reviewed With: patient Note: Alert and oriented, gets anxious at times. Had NG tube in and clamped most all shift patient had X-ray Sm Bowel Follow through. Dr. Brice seen patient after X-ray resulted, orders to remove NG and advance diet obtained. Patients diet advanced to regular after being clear liquid and full liquid. Patient talerated advance in diet. Continues to have IVF NS 100 ml/hr. Medicated once for headache. Patient had BM X2 this shift small amount liquid with some formed with undigested food after she had X-ray. Patient up ad heriberto in room after NG not to LIS. * Interdisciplinary - Maame Benjamin RN - 08/04/2021 6:15 PM CDT Diet advanced to regular and patient tolerating. Patient has had two loose brown stools this shift and no further abdominal pain. IVF infusing. * Maame Rodriguez RN - 08/04/2021 5:15 PM CDT Patient tolerated clear liquid diet, diet advanced to full liquid. * Maame Rodriguez RN - 08/04/2021 3:20 PM CDT NG discontinued per Dr. Brice orders. Diet advanced to clear liquid. * Maame Rodriguez RN - 08/04/2021 7:55 AM CDT Patient off unit for X-ray SBFT. NG clamped. Remained clamp till testing done. Approximately till 1500 due to AM medications given via NG and kept it clamped post instillation. * Plan of Care - Monika Redmond RN - 08/04/2021 6:20 AM CDT Problem: Adult Inpatient Plan of Care Goal: Plan of Care Review Outcome: Ongoing (see interventions/notes) Flowsheets Taken 08/04/2021 0619 Progress: improving Plan of Care Reviewed With: patient Outcome Summary: Patient had no nausea through 5 am, goal met. Taken 08/03/20212014 Today's Goal: no nausea through 5 am Goal: Absence of Hospital-Acquired Illness or Injury [...] Acceptable Pain Control Outcome: Ongoing (see interventions/notes) Problem: Pain Acute Goal: Acceptable Pain Control and Functional Ability Outcome: Ongoing (see interventions/notes) * Interdisciplinary - Monika Redmond RN - 08/03/2021 9:23 PM CDT Discussed crushable medications with epharmacy. Everything scheduled can be crushed and or opened except cybalta. Eleanor VIERA notified. * Interdisciplinary - Maame Benjamin RN - 08/03/2021 6:30 PM CDT Received patient from ED. Oriented to room. Lizandro propellant charge zone assembler nurse with patient. Call received from ED that Radiologist said that NG is coiled in the esophagus and needed to be pulled out and reinserted. Xray will be done for placement conformation. IVF infusing. * Plan of Care - Romel Brice MD - 08/03/2021 5:26 PM CDT Discussed with ed. I recommend NG tube placement. NPO Correct ellectrolytes SBFT in am documented in this encounter Plan of Treatment Upcoming Encounters Date Type Department Care Team (Late st Contact Info) Description 03/27/2024 8:30 AM HAND TUBE BENDER Hospital Encounter [facility] Periop [address] [place] [address] Burt Eastman MD [address] [address] 03/27/2024 8:30 AM HAND TUBE BENDER - 03/27/2024 9:00 AM HAND TUBE BENDER [facility] [address] [place] [address] Burt Eastman MD [address] [address] COLONOSCOPY 04/09/2024 1:15 PM HAND TUBE BENDER Office Visit [facility] - Pulmonology & [facility] Medicine [facility] [address] [place] [address] Baron Vergara MD [address] [place] [address] Scheduled Orders Name Type Priority Associated Diagnoses Orde r Schedule Pulse Oximetry, Spot PFT Routine WITH VITALS until discontinued starting 08/03/2021 CBC with Diff Lab Routine Small bowel obstruction (HCC) Expected: 08/12/2021, Expires: 10/05/2021 BMP with Ca, Total Lab Routine Small bowel obstruction (HCC) Expected: 08/12/2021, Expires: 10/05/2021 Scheduled Procedures Name Priority Associated Diagnoses Date/Ti me COLONOSCOPY HISTORY OF COLON POLYPS 03/27/2024 8:30 AM HAND TUBE BENDER documented as of this encounter Procedures Procedure Name Priority Date/Time Associated Diagnosis Comments POCT GLUCOSE Routine 08/05/2021 7:36 AM CDT CBC WITH AUTO DIFFERENTIAL Routine 08/05/2021 5:11 AM CDT COMPLETE BLOOD COUNT (CBC) WITH DIFF Routine 08/05/2021 5:11 AM CDT BASIC METABOLIC PANEL W/ CALCIUM TOTAL Routine 08/05/2021 5:11 AM CDT XR SMALL BOWEL FOLLOW THROUGH Routine 08/04/2021 2:00 PM CDT POCT GLUCOSE Routine 08/04/2021 12:02 PM CDT EXTRA TUBES Routine 08/04/2021 7:55 AM CDT HEMOGLOBIN A1C W/ ESTIMATED GLUCOSE Routine 08/04/2021 7:55 AM CDT MINT GREEN LI HEPARIN/SST TOP TUBE Routine 08/04/2021 7:55 AM CDT LAVENDER TOP TUBE Routine 08/04/2021 7:5 5 AM CDT POCT GLUCOSE Routine 08/04/2021 5:41 AM CDT POCT GLUCOSE Routine 08/04/2021 1:19 AM CDT XR ABDOMEN KUB FLAT PLATE STAT 08/03/2021 7:48 PM CDT XR ABDOMEN KUB FLAT PLATE Routine 08/03/2021 5:51 PM CDT MAGNESIUM (MG) STAT 08/03/2021 5:32 PM CDT URINE DRUG SCREEN STAT 08/03/2021 5:[address] ABDOMEN PELVIS W/ CONTRAST STAT 08/03/2021 4:15 PM CDT URINALYSIS REFLEX IF INDICATED BY ABNORMAL RESULTS STAT 08/03/2021 3:52 PM CDT CULTURE, URINE STAT 08/03/2021 3:52 PM CDT XR ABDOMINAL SERIES WITH CHEST VIEW STAT 08/03/2021 2:54 PM CDT CBC WITH AUTO DIFFERENTIAL STAT 08/03/2021 2:14 PM CDT LIPASE STAT 08/03/2021 2:14 PM CDT CMP (COMPREHENSIVE METABOLIC PANEL) STAT 08/03/2021 2:14 PM CDT COMPLETE BLOOD COUNT (CBC) WITH DIFF STAT 08/03/2021 2:14 PM CDT documented in this encounter Results * (ABNORMAL) POCT Glucose (08/05/2021 7:36 AM CDT) Only the most recent of4 resultswithin the time period is included. [facility] GLUCOSE,BEDSID E POCT 100(H) 70 - 99 mg/dL 08/05/2021 7:42 AM CDT [facility] Blood 08/05/2021 7:36 AM CDT 08/05/2021 7:42 AM CDT us None Provider POINT OF CARE TESTING Final Resu lt [facility] [address] [place] [address] * (ABNORMAL) CBC with Auto Differential (08/05/2021 5:11 AM CDT) Only the most recent of2 resultswithin the time period is included. [facility] WBC 6.89 4.00 - 12.00 10(3)/mcL 08/05/2021 7:34 AM CDT [facility] RBC 4.21 3.80 - 5.30 10(6)/mcL 08/05/2021 7:34 AM CDT [facility] HEMOGLOBIN (HGB) 12.6 12.0 - 15.8 g/dL 08/05/2021 7:34 AM CDT [facility] HEMATOCRIT (HCT) 41.2 36.0 - 47.0 % 08/05/2021 7:34 AM CDT [facility] MCV 97.9(H) 82.0 - 96.0 fL 08/05/2021 7:34 AM CDT [facility] MCH 29.9 26.0 - 34.0 pg 08/05/2021 7:34 AM CDT [facility] MCHC 30.6(L) 31.0 - 36.0 g/dL 08/05/2021 7:34 AM CDT [facility] PLATELET COUNT 180 140 - 440 10(3)/mcL 08/05/2021 7:34 AM CDT [facility] RDW 13.9 11.8 - 15.5 % 08/05/2021 7:34 AM CDT [facility] MPV 11.8 9.7 - 12.4 fL 08/05/2021 7:34 AM CDT [facility] NEUTROPHILS 64.3 47.0 - 73.0 % 08/05/2021 7:34 AM CDT [facility] LYMPHOCYTES 23.8 18.0 - 42.0 % 08/05/2021 7:34 AM CDT [facility] MONOCYTES 7.3 4.0 - 12.0 % 08/05/2021 7:34 AM CDT [facility] EOSINOPHILS 4.2 0.0 - 5.0 % 08/05/2021 7:34 AM CDT [facility] BASOPHILS 0.4 0.0 - 1.0 % 08/05/2021 7:34 AM CDT [facility] ABSOLUTE NEUTROPHILS 4.43 1.60 - 7.70 10(3)/mcL 08/05/2021 7:34 AM CDT [facility] ABSOLUTE LYMPHOCYTES 1.64 1.30 - 3.20 10(3)/mcL 08/05/2021 7:34 AM CDT [facility] ABSOLUTE MONOCYTES 0.50 0.20 - 1.00 10(3)/mcL 08/05/2021 7:34 AM CDT [facility] ABSOLUTE EOSINOPHIL 0.29 0.00 - 0.40 10(3)/mcL 08/05/2021 7:34 AM CDT [facility] ABSOLUTE BASOPHILS 0.03 0.00 - 0.10 10(3)/mcL 08/05/2021 7:34 AM CDT [facility] NRBC PER 100 WBC 0 08/06/19 7:34 AM CDT [facility] RESULTS ARE CONSISTENT WITH PERIPHERAL SMEAR REVIEW Yes 08/05/2021 7:34 AM CDT [facility] POLYCHROMASIA 1+ 08/05/2021 7:34 AM CDT [facility] Blood Venipuncture / Unknown 08/05/2021 5:11 AM CDT 08/05/2021 6:07 AM CDT us Chepe Gongora MD HEMATOLOGY ORDERABLES Fi nal Result [facility] [address] [place] [address] * (ABNORMAL) BMP with Ca, Total (08/05/2021 5:11 AM CDT) SODIUM 140 136 - 144 mmol/L 08/05/2021 6:53 AM CDT [facility] POTASSIUM 3.6 3.5 - 5.1 mmol/L 08/05/2021 6:53 AM CDT [facility] CHLORIDE 107 100 - 110 mmol/L 08/05/2021 6:53 AM CDT [facility] CO2, VENOUS 25 22 - 32 mmol/L 08/05/2021 6:53 AM CDT [facility] ANION GAP 11.6 8.0 - 20.0 mmol/L 08/05/2021 6:53 AM CDT [facility] GLUCOSE 89 70 - 99 mg/dL 08/05/2021 6:53 AM CDT [facility] BUN 14 6 - 20 mg/dL 08/05/2021 6:53 AM CDT [facility] CREATININE, BLOOD 0.47(L) 0.60 - 1.10 mg/dL 08/05/2021 6:53 AM CDT [facility] BUN/CREATININE RATIO 30(H) 12 - 20 ratio 08/05/2021 6:53 AM CDT [facility] CALCIUM 8.7(L) 8.9 - 10.3 mg/dL 08/05/2021 6:53 AM CDT [facility] GFR, EST. NONAFRICAN >60 >=60 08/05/2021 6:53 AM CDT [facility] GFR, EST. >60 >=60 08/05/2021 6:53 AM CDT [facility] Comment: Creatinine Clearance is the preferred criteria for selecting drug dose adjustments in renally impaired patients. ??The GFR is provided as additional pertinent clinical information. GFR is reported in mL/min/1.73 sq m. Blood Venipuncture / Unknown 08/05/2021 5:11 AM CDT 08/05/2021 6:08 AM CDT Chepe Gongora MD CHEMISTRY ORDERABLES Fin al Result [facility] [address] [place] [address] * XR SMALL BOWEL FOLLOW THROUGH (08/04/2021 2:00 PM CDT) Anatomical Region Laterality Modality GI, Abdomen N/A Digital Radiogra phy 08/04/2021 2:23 PM CDT Impressions 08/04/2021 2:26 PM CDT IMPRESSION: ??No complete small bowel obstruction. ??Mildly dilated small bowel loops which may reflect partial obstruction. Narrative 08/04/2021 2:26 PM CDT EXAM DESCRIPTION: ?? XR SMALL BOWEL FOLLOW THROUGH REASON FOR STUDY: ?? Small-bowel obstruction, abdominal pain and distension since yesterday TECHNIQUE: ??Sequential radiographs obtained before and after administration of 180 mL Gastrografin COMPARISON: ??Correlation is made with CT abdomen and pelvis performed 08/03/2021 FINDINGS: ??Fitness And Wellness Coordinator radiograph demonstrates gas-filled colonic loops. ?? No dilated gas-filled small bowel loops are seen. ??There is iodinated contrast in the urinary bladder and an endogastric tube. Following administration of oral contrast, contrast sequentially opacifies small bowel loops which appear mildly dilated up to 4 cm diameter suggestive of small bowel obstruction. ??By 4 hours, oral contrast has reached the colon. THIS IS AN ELECTRONICALLY VERIFIED FINAL REPORT 08/04/2021 2:23 PM - Electronically signed by ??Faraz Owens M.D. JR: D: ??08/04/2021 2:23 PM T: ??08/04/2021 2:23 PM Report ID: [id number] Reading Location: ??[id number] Procedure Note Faraz Owens MD - 08/04/2021 EXAM DESCRIPTION: XR SMALL BOWEL FOLLOW THROUGH REASON FOR STUDY: Small-bowel obstruction, abdominal pain and distension since yesterday TECHNIQUE: Sequential radiographs obtained before and after administration of 180 mL Gastrografin COMPARISON: Correlation is made with CT abdomen and pelvis performed 08/03/2021 FINDINGS: Fitness And Wellness Coordinator radiograph demonstrates gas-filled colonic loops. No dilated gas-filled small bowel loops are seen. There is iodinated contrast in the urinary bladder and an endogastric tube. Following administration of oral contrast, contrast sequentially opacifies small bowel loops which appear mildly dilated up to 4 cm diameter suggestive of small bowel obstruction. By 4 hours, oral contrast has reached the colon. THIS IS AN ELECTRONICALLY VERIFIED FINAL REPORT 08/04/2021 2:23 PM - Electronically signed by Faraz Owens M.D., JR: Report ID: [id number] Reading Location: [id number] IMPRESSION: No complete small bowel obstruction. Mildly dilated small bowel loops which may reflect partial obstruction. us Eleanor Whittaker APRN, CORRESPONDENCE SPECIALIST IMG FLUOROSCOPY ORDER ARMANDO Final Result * MARS PERALTA HEPARIN/SST TOP TUBE (08/04/2021 7:55 AM CDT) Blood No Phlebotomy Charged / Unknown 08/04/2021 7:55 AM CDT 08/04/2021 9:08 AM CDT Chepe Gongora MD HEMATOLOGY ORDERABLES Fi nal Result Performing Organization Address City/[facility]/ZIP Co de Phone Number [facility] [address] [place] [address] * Lavender Top Tube (08/04/2021 7:55 AM CDT) Blood No Phlebotomy Charged / Unknown 08/04/2021 7:55 AM CDT 08/04/2021 9:08 AM CDT Chepe Gongora MD HEMATOLOGY ORDERABLES Fi nal Result Performing Organization Address [facility] Co de Phone Number [facility] [address] [place] [address] * Hemoglobin A1C w/ Estimated Glucose (08/04/2021 7:55 AM CDT) HGB-A1C 5.7 4.0 - 6.0 % 08/04/2021 9:24 AM CDT [facility] Est Average Glucose 116.9 mg/dL 08/04/2021 9:24 AM CDT [facility] Blood Venipuncture / Unknown 08/04/2021 7:55 AM CDT 08/04/2021 9:06 AM CDT Narrative [facility] - 08/04/2021 9:24 AM CDT HEMOGLOBIN A1C: DIABETIC PATIENTS: WELL-CONTROLLED: ?? 6.2 - 7.0 INTERMEDIATE WELL-CONTROLLED: ??7.0 - 9.0 POORLY-CONTROLLED: ??>9.0 Chepe Gongora MD CHEMISTRY ORDERABLES Fin al Result Performing Organization Address City/[facility] Co de Phone Number [facility] [address] [place] [address] * XR ABDOMEN KUB FLAT PLATE (08/03/2021 7:48 PM CDT) Only the most recent of2 resultswithin the time period is included. Anatomical Region Laterality Modality Abdomen N/A Digital Radiogra phy 08/03/2021 7:59 PM CDT Impressions 08/03/2021 8:02 PM CDT IMPRESSION: ??NG tube projects over gastric body appropriately. Narrative 08/03/2021 8:02 PM CDT EXAM DESCRIPTION: ?? XR ABDOMEN KUB FLAT PLATE REASON FOR STUDY: ?? NG tube placement ??today TECHNIQUE: ??Single-view COMPARISON: ??08/03/2021 at 5:39 p.m. FINDINGS: ??Single-view at 7:33 p.m. on 08/03/2021 demonstrates nasogastric tube with tip coiled over gastric body, side port below GE junction appropriately. Central vascularity have normal caliber. ??Aortic arch well-defined on the left. Lungs are well expanded without consolidations, effusions or pneumothorax. Bony hypertrophic changes obscures the apices. THIS IS AN ELECTRONICALLY VERIFIED FINAL REPORT 08/03/2021 7:59 PM - Electronically signed by ??Armando Cobb M.D. RB: RB D: ??08/03/2021 7:59 PM T: ??08/03/2021 7:59 PM Report ID: [id number] Reading Location: ??[id number] Procedure Note Armando Cobb MD - 08/03/2021 EXAM DESCRIPTION: XR ABDOMEN KUB FLAT PLATE REASON FOR STUDY: NG tube placement today TECHNIQUE: Single-view COMPARISON: 08/03/2021 at 5:39 p.m. FINDINGS: Single-view at 7:33 p.m. on 08/03/2021 demonstrates nasogastric tube with tip coiled over gastric body, side port below GE junction appropriately. Central vascularity have normal caliber. Aortic arch well-defined on the left. Lungs are well expanded without consolidations, effusions or pneumothorax. Bony hypertrophic changes obscures the apices. THIS IS AN ELECTRONICALLY VERIFIED FINAL REPORT 08/03/2021 7:59 PM - Electronically signed by Armando Cobb M.D. RB: RB Report ID: [id number] Reading Location: [id number] IMPRESSION: NG tube projects over gastric body appropriately. us Chepe Gongora MD IMG DIAGNOSTIC ORDERABLE S Final Result * MAGNESIUM (MG) (08/03/2021 5:32 PM CDT) Pathologist [facility] MAGNESIUM 2.0 1.8 - 2.5 mg/dL 08/03/2021 5:43 PM CDT [facility] Blood Venipuncture / Unknown 08/03/2021 5:32 PM CDT 08/03/2021 5:32 PM CDT us Sharri Oliver Page PAC CHEMISTRY ORDERABLES Final R esult [facility] [address] [place] [address] * (ABNORMAL) Urine Drug Screen (08/03/2021 5:15 PM CDT) Pathologist [facility] UR AMPHETAMINE NON DETECTED NON DETECTED 08/03/2021 5:37 PM CDT [facility] Comment: FOR MEDICAL USE ONLY. CUTOFF CONCENTRATION FOR DETECTED RESULT: AMPHETAMINE: ??500 NG/ML UR BENZODIAZEPINES NON DETECTED NON DETECTED 08/03/2021 5:37 PM CDT [facility] Comment: FOR MEDICAL USE ONLY. CUTOFF CONCENTRATION FOR DETECTED RESULT: BENZODIAZAPINE: ??100 NG/ML UR COCAINE METABOLITE DETECTED(A) NON DETECTED 08/03/2021 5:37 PM CDT [facility] Comment: FOR MEDICAL USE ONLY. CUTOFF CONCENTRATION FOR DETECTED RESULT: COCAINE: ??300 NG/ML UR OPIATES DETECTED(A) NON DETECTED 08/03/2021 5:37 PM CDT [facility] Comment: FOR MEDICAL USE ONLY. CUTOFF CONCENTRATION FOR DETECTED RESULT: OPIATES: ? 300 NG/ML UR PHENCYCLIDINE NON DETECTED NON DETECTED 08/03/2021 5:37 PM CDT [facility] Comment: FOR MEDICAL USE ONLY. CUTOFF CONCENTRATION FOR DETECTED RESULT: PCP: ? 25 NG/ML UR CANNABINOID NON DETECTED NON DETECTED 08/03/2021 5:37 PM CDT [facility] Comment: FOR MEDICAL USE ONLY. CUTOFF CONCENTRATION FOR DETECTED RESULT: THC (MARIJUANA): 50 NG/ML UR TRICYCLIC ANTIDEPRESS SCREEN NON DETECTED NON DETECTED 08/03/2021 5:37 PM CDT [facility] Comment: FOR MEDICAL USE ONLY. CUTOFF CONCENTRATION FOR DETECTED RESULT: TCA: ??300 NG/ML UR BARBITURATE NON DETECTED NON DETECTED 08/03/2021 5:37 PM CDT [facility] Comment: FOR MEDICAL USE ONLY. CUTOFF CONCENTRATION FOR DETECTED RESULT: BARBITUATES: ? 200 NG/ML Urine Non-Phlebotomy Collection / Unknown 08/03/2021 5:15 PM CDT 08/03/2021 5:15 PM CDT Sharri Oliver Page PAC URINE ORDERABLES Final Resul t [facility] [address] [place] [address] * CT ABDOMEN PELVIS W/ CONTRAST (08/03/2021 4:15 PM CDT) Anatomical Region Laterality Modality Abdomen N/A Computed Tomogra phy 08/03/2021 4:56 PM CDT Impressions 08/03/2021 4:58 PM CDT IMPRESSION: ?? Moderately severe distension mid small bowel as evidence of developing obstruction with transition point in the mid to distal segments without definite underlying etiology identified. No change probable hepatic cysts. Narrative 08/03/2021 4:58 PM CDT EXAM DESCRIPTION: ?? CT ABDOMEN PELVIS W/ CONTRAST REASON FOR STUDY: ?? Abdominal infection suspected , diarrhea since last night. TECHNIQUE: CT scan of the abdomen and pelvis performed with intravenous and ?? without ??oral contrast using helical scanning technique with dynamic intravenous contrast injection. Reconstructed coronal and sagittal MPR images reviewed. All images stored on PACS. Automated exposure control was used as a dose optimization technique for this examination. CONTRAST TYPE/DOSE: ?? 80 mL Isovue 370 ??injected via ?? intravenous COMPARISON: ?? 12/21/2020 FINDINGS: LOWER CHEST: ?? No significant pulmonary abnormalities. No effusion. LIVER: ?? Normal size. ??Several hypodensities most suggestive of cysts or hemangiomas unchanged from previous. ??Largest identified in the right lobe greatest dimension of 3.4 cm unchanged. GALLBLADDER: ?? Surgically absent with clips in place. BILE DUCTS: ?? No intrahepatic or extrahepatic ductal dilatation. SPLEEN: ?? Normal size. ??No focal lesions. PANCREAS: ?? No identified cystic or solid masses. No significant calcifications. No adjacent inflammation or peripancreatic fluid collections. Pancreatic duct not dilated. ?? ADRENALS: ?? Normal. KIDNEYS/URINARY TRACT: ?? Right kidney demonstrates no hydronephrosis. ??Punctate 0.1 cm upper and lower pole caliceal nonobstructing stones. ??No hydro ureter. Left kidney demonstrates no hydronephrosis. ??Punctate nonobstructive lower pole caliceal stone without surrounding induration. ??No hydroureter. ?Urinary bladder is unremarkable. GI: ?? The stomach and transverse duodenum appear unremarkable. ?? Proximal small bowel has a normal caliber. ??Mid small bowel demonstrates moderate fluid and air filled distention extending to the mid to distal segment anteriorly where a transition to a normal caliber distal small bowel is identified. ??No mass or adenopathy in the region. ??No induration or unusual fluid collection. ??The anterior abdominal wall here appears intact without hernia formation. ??No unusual enhancing portions of bowel, no pneumatosis identified. Cecum, terminal ileum and appendix appear normal. ??Remainder of colon has a normal caliber. PERITONEUM: ?? No ascites or free air. RETROPERITONEUM: ?? Nonenlarged lymph nodes retroperitoneum, portacaval space likely reactive in nature. REPRODUCTIVE: ?? No significant abnormality. VASCULATURE: ?? No abdominal aortic aneurysm. MUSCULOSKELETAL: ?? No acute findings. ??Grade 1 anterolisthesis lumbosacral junction with severe endplate degenerative changes, bilateral spondylolysis. OTHER: ?? No other abnormality. THIS IS AN ELECTRONICALLY VERIFIED FINAL REPORT 08/03/2021 4:56 PM - Electronically signed by ??Armando Cobb M.D. RB: RB D: ??08/03/2021 4:56 PM T: ??08/03/2021 4:56 PM Report ID: [id number] Reading Location: ??[id number] Procedure Note Armando Cobb MD - 08/03/2021 EXAM DESCRIPTION: CT ABDOMEN PELVIS W/ CONTRAST REASON FOR STUDY: Abdominal infection suspected , diarrhea since last night. TECHNIQUE: CT scan of the abdomen and pelvis performed with intravenous and without oral contrast using helical scanning technique with dynamic intravenous contrast injection. Reconstructed coronal and sagittal MPR images reviewed. All images stored on PACS. Automated exposure control was used as a dose optimization technique for this examination. CONTRAST TYPE/DOSE: 80 mL Isovue 370 injected via intravenous COMPARISON: 12/21/2020 FINDINGS: LOWER CHEST: No significant pulmonary abnormalities. No effusion. LIVER: Normal size. Several hypodensities most suggestive of cysts or hemangiomas unchanged from previous. Largest identified in the right lobe greatest dimension of 3.4 cm unchanged. GALLBLADDER: Surgically absent with clips in place. BILE DUCTS: No intrahepatic or extrahepatic ductal dilatation. SPLEEN: Normal size. No focal lesions. PANCREAS: No identified cystic or solid masses. No significant calcifications. No adjacent inflammation or peripancreatic fluid collections. Pancreatic duct not dilated. ADRENALS: Normal. KIDNEYS/URINARY TRACT: Right kidney demonstrates no hydronephrosis. Punctate 0.1 cm upper and lower pole caliceal nonobstructing stones. No hydro ureter. Left kidney demonstrates no hydronephrosis. Punctate nonobstructive lower pole caliceal stone without surrounding induration. No hydroureter. Urinary bladder is unremarkable. GI: The stomach and transverse duodenum appear unremarkable. Proximal small bowel has a normal caliber. Mid small bowel demonstrates moderate fluid and air filled distention extending to the mid to distal segment anteriorly where a transition to a normal caliber distal small bowel is identified. No mass or adenopathy in the region. No induration or unusual fluid collection. The anterior abdominal wall here appears intact without hernia formation. No unusual enhancing portions of bowel, no pneumatosis identified. Cecum, terminal ileum and appendix appear normal. Remainder of colon has a normal caliber. PERITONEUM: No ascites or free air. RETROPERITONEUM: Nonenlarged lymph nodes retroperitoneum, portacaval space likely reactive in nature. REPRODUCTIVE: No significant abnormality. VASCULATURE: No abdominal aortic aneurysm. MUSCULOSKELETAL: No acute findings. Grade 1 anterolisthesis lumbosacral junction with severe endplate degenerative changes, bilateral spondylolysis. OTHER: No other abnormality. THIS IS AN ELECTRONICALLY VERIFIED FINAL REPORT 08/03/2021 4:56 PM - Electronically signed by Armando Cobb M.D. RB: RB Report ID: [id number] Reading Location: [id number] IMPRESSION: Moderately severe distension mid small bowel as evidence of developing obstruction with transition point in the mid to distal segments without definite underlying etiology identified. No change probable hepatic cysts. us Sharri Oliver Page PAC IMG CT ORDERABLES Final Resu lt * Culture, Urine (08/03/2021 3:52 PM CDT) Pathologist [facility] CULTURE RESULTS MIXED GROWTH OF 3 OR MORE ORGANISMS, PROBABLE COLLECTION CONTAMINATION, SUGGEST REPEAT URINE CULTURE. 08/04/2021 3:34 PM CDT [facility] Urine URINE SPECIMEN COLLECTION, CLEAN CATCH / Unknown Non-Phlebotomy Collection / Unknown 08/03/2021 3:52 PM CDT 08/03/2021 3:58 PM CDT us Sharri Oliver Page PAC MICROBIOLOGY - GENERAL ORDER ARMANDO Final Result [facility] [address] [place] [address], [place] * (ABNORMAL) URINALYSIS REFLEX IF INDICATED BY ABNORMAL RESULTS (08/03/2021 3:52 PM CDT) [facility] SPECIFIC GRAVITY 1.015 1.003 - 1.030 08/03/2021 4:32 PM CDT [facility] URINE PH 6.0 5.0 - 9.0 08/03/2021 4:32 PM CDT [facility] WBC ESTERASE 25 /ul(A) Negative 08/03/2021 4:32 PM CDT [facility] NITRITE Negative Negative 08/03/2021 4:32 PM CDT [facility] PROTEIN, RANDOM URINE 30 mg/dL(A) Negative 08/03/2021 4:32 PM CDT [facility] URINE GLUCOSE, QUAL Negative Negative 08/03/2021 4:32 PM CDT [facility] URINE KETONES Negative Negative 08/03/2021 4:32 PM CDT [facility] UROBILINOGEN Normal Normal mg/dL 08/03/2021 4:32 PM CDT [facility] URINE BLOOD Negative Negative dylan/ul 08/03/2021 4:32 PM CDT [facility] URINALYSIS COLOR Yellow 08/04/19 4:32 PM CDT [facility] URINALYSIS CLARITY Very Cloudy 08/03/2021 4:32 PM CDT [facility] WBC (Urine) 6-10(A) Negative, 0-5 /hpf 08/03/2021 4:32 PM CDT [facility] URINE RBC'S 0-2 Negative, 0-2 /hpf 08/03/2021 4:32 PM CDT [facility] EPITHELIAL CELLS Large amount squamous /lpf 08/03/2021 4:32 PM CDT [facility] BACTERIA, URINE Moderate(A) Negative /hpf 08/03/2021 4:32 PM CDT [facility] Urine URINE SPECIMEN COLLECTION, CLEAN CATCH / Unknown Non-Phlebotomy Collection / Unknown 08/03/2021 3:52 PM CDT 08/03/2021 3:58 PM CDT us Sharri Oliver Page PAC URINE ORDERABLES Final Resul t [facility] [address] [place] [address] * XR ABDOMINAL SERIES WITH CHEST VIEW (08/03/2021 2:54 PM CDT) Anatomical Region Laterality Modality Abdomen N/A Digital Radiogra phy 08/03/2021 3:12 PM CDT Impressions 08/03/2021 3:14 PM CDT IMPRESSION: ??Gaseous distension primarily small bowel with air-fluid levels raises concern for early small-bowel obstruction as discussed above. No acute chest abnormality. Narrative 08/03/2021 3:14 PM CDT EXAM DESCRIPTION: ?? XR ABDOMINAL SERIES WITH CHEST VIEW REASON FOR STUDY: ?? abdominal pain starting last night. Patient abdomen is distended and experiencing diarrhea. Patient states that she has history of bowel obstruction TECHNIQUE: ??Supine and upright views of the abdomen with frontal view chest COMPARISON: ??08/02/2021 chest radiograph FINDINGS: ??Upright view demonstrates severe gaseous distension of primarily small bowel. ??Moderate distension large bowel in the region of the transverse colon. ??Multiple air-fluid levels are noted which could be related to ileus with a developing small bowel or proximal large bowel obstruction not excluded. No free intraperitoneal air. Supine views demonstrate gaseous distension most severe in the small bowel. ??No unusual calcifications or acute bony defects. Frontal view chest demonstrates central vascularity not grossly enlarged. ??Aortic arch well-defined on the left. ??Lungs well expanded without consolidation, effusion or pneumothorax. ??Bony hypertrophic changes obscures the apices. THIS IS AN ELECTRONICALLY VERIFIED FINAL REPORT 08/03/2021 3:12 PM - Electronically signed by ??Armando Cobb M.D. RB: ANANDA D: ??08/03/2021 3:12 PM T: ??08/03/2021 3:12 PM Report ID: [id number] Reading Location: ??[id number] Procedure Note Armando Cobb MD - 08/03/2021 EXAM DESCRIPTION: XR ABDOMINAL SERIES WITH CHEST VIEW REASON FOR STUDY: abdominal pain starting last night. Patient abdomen is distended and experiencing diarrhea. Patient states that she has history of bowel obstruction TECHNIQUE: Supine and upright views of the abdomen with frontal view chest COMPARISON: 08/02/2021 chest radiograph FINDINGS: Upright view demonstrates severe gaseous distension of primarily small bowel. Moderate distension large bowel in the region of the transverse colon. Multiple air-fluid levels are noted which could be related to ileus with a developing small bowel or proximal large bowel obstruction not excluded. No free intraperitoneal air. Supine views demonstrate gaseous distension most severe in the small bowel. No unusual calcifications or acute bony defects. Frontal view chest demonstrates central vascularity not grossly enlarged. Aortic arch well-defined on the left. Lungs well expanded without consolidation, effusion or pneumothorax. Bony hypertrophic changes obscures the apices. THIS IS AN ELECTRONICALLY VERIFIED FINAL REPORT 08/03/2021 3:12 PM - Electronically signed by Armando Cobb M.D. RB: RB Report ID: [id number] Reading Location: [id number] IMPRESSION: Gaseous distension primarily small bowel with air-fluid levels raises concern for early small-bowel obstruction as discussed above. No acute chest abnormality. Sharri Oliver Page PAC IMG DIAGNOSTIC ORDERABLES Fi nal Result * Lipase [id number] (08/03/2021 2:14 PM CDT) Pathologist [facility] LIPASE 25.6 13 - 60 U/L 08/03/2021 3:06 PM CDT [facility] Blood Venipuncture / Unknown 08/03/2021 2:14 PM CDT 08/03/2021 2:39 PM CDT Sharri Oliver Page PAC CHEMISTRY ORDERABLES Final R esult [facility] [address] [place] [address] * (ABNORMAL) CMP (Comprehensive Metabolic Panel) (08/03/2021 2:14 PM CDT) SODIUM 133(L) 136 - 144 mmol/L 08/03/2021 3:06 PM CDT [facility] POTASSIUM 4.0 3.5 - 5.1 mmol/L 08/03/2021 3:06 PM CDT [facility] CHLORIDE 97(L) 100 - 110 mmol/L 08/03/2021 3:06 PM CDT [facility] CO2, VENOUS 21(L) 22 - 32 mmol/L 08/03/2021 3:06 PM [facility] ANION GAP 19.0 8.0 - 20.0 mmol/L 08/03/2021 3:06 PM [facility] GLUCOSE 112(H) 70 - 99 mg/dL 08/03/2021 3:06 PM [facility] BUN 20 6 - 20 mg/dL 08/03/2021 3:06 PM [facility] CREATININE, BLOOD 0.72 0.60 - 1.10 mg/dL 08/03/2021 3:06 PM [facility] BUN/CREATININE RATIO 28(H) 12 - 20 ratio 08/03/2021 3:06 PM [facility] TOTAL PROTEIN 7.6 6.0 - 8.3 g/dL 08/03/2021 3:06 PM [facility] ALBUMIN 4.2 3.5 - 5.2 g/dL 08/03/2021 3:06 PM [facility] Comment: The colormetric methods used for the determination of Albumin may lead to falsely elevated test results in patients suffering from renal failure or insufficiency due to interference with other proteins. A/G RATIO 1.2 1.0 - 2.0 08/03/2021 3:06 PM [facility] CALCIUM 9.7 8.9 - 10.3 mg/dL 08/03/2021 3:06 PM [facility] T BILI 0.4 <=1.2 mg/dL 08/03/2021 3:06 PM [facility] SGOT (AST) 16 <=32 U/L 08/03/2021 3:06 PM [facility] SGPT (ALT) 21 <=41 U/L 08/03/2021 3:06 PM [facility] ALKALINE PHOSPHATASE 111(H) 35 - 105 U/L 08/03/2021 3:06 PM [facility] GFR, EST. NONAFRICAN >60 >=60 08/03/2021 3:06 PM CDT [facility] GFR, EST. >60 >=60 022 3:06 PM CDT [facility] Comment: Creatinine Clearance is the preferred criteria for selecting drug dose adjustments in renally impaired patients. ??The GFR is provided as additional pertinent clinical information. GFR is reported in mL/min/1.73 sq m. Blood Venipuncture / Unknown 08/03/2021 2:14 PM CDT 08/03/2021 2:39 PM CDT us Sharri [place] Page PAC CHEMISTRY ORDERABLES Final R esult [facility] [address] [place] [address] documented in this encounter Visit Diagnoses Diagnosis Small bowel obstruction (HCC)- Primary Unspecified intestinal obstruction Small bowel obstruction (HCC) Unspecified intestinal obstruction Leukocytosis Leukocytosis, unspecified Hypertension Unspecified essential hypertension GERD (gastroesophageal reflux disease) Esophageal reflux Hyperlipidemia Other and unspecified hyperlipidemia Bipolar disorder (HCC) Bipolar disorder, unspecified Depression Depressive disorder, not elsewhere classified Hypothyroid Unspecified hypothyroidism Morbid obesity with BMI of 45.0-49.9, adult (HCC) Anxiety Anxiety state, unspecified Type 2 diabetes mellitus, without long-term current use of insulin (HCC) Dehydration UTI (urinary tract infection) Urinary tract infection, site not specified documented in this encounter Admitting Diagnoses Diagnosis Small bowel obstruction (HCC) Unspecified intestinal obstruction documented in this encounter Administered Medications Inactive Administered Medications - up to 3 most recent administrations Medication Order MAR Action Action Date Dose Rate Site 0.9 % sodium chloride solution at 1,000 mL/hr, Intravenous, ONCE, 1 dose, On Mon08/03/21 at 1500 New Bag 08/03/2021 3:00 PM CDT 1000 mL/hr 0.9 % sodium chloride solution at 1,000 mL/hr, Intravenous, ONCE, 1 dose, On Mon08/03/21 at 1730 New Bag 08/03/2021 5:18 PM CDT 1000 mL/hr 0.9 % sodium chloride solution at 100 mL/hr, Intravenous, CONTINUOUS, Starting on Mon08/03/21 at 2030, Until Mon08/05/21 at 1628 New Bag 08/04/2021 11:54 PM CDT 100 mL/hr New Bag 08/04/2021 2:35 PM CDT 100 mL/hr New Bag 08/03/2021 9:37 PM CDT 100 mL/hr acetaminophen (TYLENOL) 650 MG/20.3ML solution 650 mg 650 mg, Per NG tube, EVERY 4 HOURS PRN, Starting on Mon08/03/21 at 1956, Until Mon08/04/21 at 1528, Mild pain or more severe pain if patient requests, Fever, If patient is taking oral intake without complications and both PO/VA orders are active, administer through the oral route. Given 08/04/2021 2:20 PM CDT 650 mg acetaminophen (TYLENOL) 650 MG/20.3ML solution 650 mg 650 mg, Oral, EVERY 4 HOURS PRN, Starting on Mon08/04/21 at 1526, Until Mon08/05/21 at 1628, Mild pain or more severe pain if patient requests, Fever, If patient is taking oral intake without complications and both PO/VA orders are active, administer through the oral route. Given 08/05/2021 1:14 AM CDT 650 mg acetaminophen (TYLENOL) suppository 650 mg 650 mg, Rectal, EVERY 4 HOURS PRN, Starting on Mon08/04/21 at 1526, Until Mon08/05/21 at 1628, Mild pain or more severe pain if patient requests, Fever, If patient is taking oral intake without complications and both PO/VA orders are active, administer through the oral route. aluminum & magnesium hydroxide-simethicone (MAALOX, MYLANTA) 200-200-20 MG/5ML SUSP 20 mL 20 mL, Oral, EVERY 6 HOURS PRN, Starting on Mon08/04/21 at 1526, Until Mon08/05/21 at 1628, Indigestion, Heartburn, Shake well. ARIPiprazole (ABILIFY) tablet 20 mg 20 mg, Per NG tube, DAILY, First dose on Mon08/04/21 at 0900, Until Discontinued Given 08/04/2021 2:10 PM CDT 20 mg ARIPiprazole (ABILIFY) tablet 20 mg 20 mg, Oral, DAILY, First dose (after last modification) on Mon08/05/21 at 0900, Until Discontinued Given 08/05/2021 9:03 AM CDT 20 mg baclofen (LIORESAL) tablet 20 mg 20 mg, Oral, 2 TIMES DAILY PRN, Starting on Mon08/04/21 at 1526, Until Mon08/05/21 at 1628, Muscle spasms Given 08/05/2021 9:08 AM CDT 20 mg Given 08/05/2021 1:14 AM CDT 20 mg calcium carbonate (TUMS) chewable tablet 1,000 mg 1,000 mg, Oral, EVERY 8 HOURS PRN, Starting on Mon08/04/21 at 1526, Until Mon08/05/21 at 1628, Heartburn, Indigestion dextrose 50 % solution 12.5 g 12.5 g, Intravenous, PRN, Starting on Mon08/04/21 at 0047, Until Mon08/05/21 at 1628, Low blood sugar, If IV patent in patient with blood glucose of 50 or less, or Unconscious, Conscious but NPO or Unable to Swallow regardless of blood glucose, administer 1 dose of dextrose 50% solution. diatrizoate meglumine-sodium (GASTROGRAFIN) 66-10 % solution 180 mL 180 mL, Oral, ONCE, 1 dose, On Mon08/04/21 at 0930 Given 08/04/2021 8:45 AM CDT 180 mL Other (See comment) diphenhydrAMINE (BENADRYL) injection 25 mg 25 mg, Intravenous, ONCE, 1 dose, On Mon08/04/21 at 0030 Given 08/04/2021 12:06 AM CDT 25 mg DULoxetine (CYMBALTA) capsule 60 mg 60 mg, Oral, NIGHTLY, First dose (after last modification) on Mon08/04/21 at 2100, Until Discontinued, Do not crush. Given 08/04/2021 9:28 PM CDT 60 mg famotidine (PF) (PEPCID) injection 20 mg 20 mg, Intravenous, 2 TIMES DAILY, First dose on Mon08/03/21 at 2100, Until Discontinued, Indications: Stress Ulcer Prophylaxis, Symptomatic Gastroesophageal Reflux DiseaseIndications:Stress Ulcer Prophylaxis,Symptomatic Gastroesophageal Reflux Disease Given 08/05/2021 9:03 AM CDT 20 mg Given 08/04/2021 9:28 PM CDT 20 mg Given 08/04/2021 2:31 PM CDT 20 mg glucagon injection SOLR 1 mg 1 mg, Intramuscular, PRN, Starting on Mon08/04/21 at 0047, Until Natalie 08/05/21 at 1628, Low blood sugar, If patient has no intravenous access and blood glucose of 50 or less, or Unconscious, Conscious but NPO or Unable to Swallow regardless of blood glucose administer 1 dose of glucagon. Glucagon may cause vomiting. Position patient on the side. glucagon injection SOLR 1 mg 1 mg, Subcutaneous, PRN, Starting on Mon08/04/21 at 0047, Until Natalie 08/05/21 at 1628, Low blood sugar, If patient has no intravenous access and blood glucose of 50 or less, or Unconscious, Conscious but NPO or Unable to Swallow regardless of blood glucose administer 1 dose of glucagon. Glucagon may cause vomiting. Position patient on the side. glucose (INSTA-GLUCOSE) 77.4 % gel 15 g 15 g, Oral, PRN, Starting on Mon08/04/21 at 0047, Until Natalie 08/05/21 at 1628, Low blood sugar, Dose is based on glucose. 37.5 g tube = 15 GRAMS of GLUCOSE. For 15 GRAM GLUCOSE dose, give entire 37.5 g size tube. Administer 1 dose if patient is unable to take food, but conscious and able to swallow. insulin lispro (HumaLOG) 100 UNIT/ML injection 1-6 Units 1-6 Units, Subcutaneous, EVERY 6 HOURS, First dose on Mon08/04/21 at 0130, Until Discontinued, To be given together with [...] call physician. iopamidol (ISOVUE-370) 76 % injection 120 mL 120 mL, Intravenous, ONCE, 1 dose, On Mon08/03/21 at 1630 Given 08/03/2021 4:13 PM CDT 120 mL levothyroxine (SYNTHROID) tablet 50 mcg 50 mcg, Per NG tube, DAILY, First dose on Mon08/04/21 at 0900, Until DiscontinuedIndications:Hypothyroidism Given 08/04/2021 2:11 PM CDT 50 mc g levothyroxine (SYNTHROID) tablet 50 mcg 50 mcg, Oral, DAILY, First dose (after last modification) on Mon08/05/21 at 0900, Until DiscontinuedIndications:Hypothyroidism Given 08/05/2021 9:04 AM CDT 50 mc g losartan (COZAAR) tablet 50 mg 50 mg, Per NG tube, DAILY, First dose on Mon08/03/21 at 2100, Until Discontinued Given 08/04/2021 2:11 PM CDT 50 mg Given 08/03/2021 9:40 PM CDT 50 mg losartan (COZAAR) tablet 50 mg 50 mg, Oral, DAILY, First dose (after last modification) on Mon08/05/21 at 0900, Until Discontinued Given 08/05/2021 9:03 AM CDT 50 mg metoprolol tartrate (LOPRESSOR) per half tablet 12.5 mg 12.5 mg, Per NG tube, 2 TIMES DAILY, First dose on Mon08/03/21 at 2100, Until Discontinued Given 08/04/2021 2:11 PM CDT 12.5 mg Given 08/03/2021 9:40 PM CDT 12.5 mg metoprolol tartrate (LOPRESSOR) per half tablet 12.5 mg 12.5 mg, Oral, 2 TIMES DAILY, First dose (after last modification) on Mon08/04/21 at 2100, Until Discontinued Given 08/05/2021 9:03 AM CDT 12.5 mg Given 08/04/2021 9:28 PM CDT 12.5 mg morphine sulfate (PF) injection 2 mg 2 mg, Intravenous, ONCE, 1 dose, On Mon08/03/21 at 1730 Given 08/03/2021 5:09 PM CDT 2 mg naproxen (NAPROSYN) tablet 250 mg 250 mg, Per NG tube, 2 TIMES DAILY, First dose on Mon08/03/21 at 2100, Until Discontinued Given 08/04/2021 2:11 PM CDT 250 mg Given 08/03/2021 9:40 PM CDT 250 mg naproxen (NAPROSYN) tablet 250 mg 250 mg, Oral, 2 TIMES DAILY, First dose (after last modification) on Mon08/04/21 at 2100, Until Discontinued Given 08/05/2021 9:03 AM CDT 250 mg Given 08/04/2021 9:28 PM CDT 250 mg ondansetron (ZOFRAN) injection 4 mg 4 mg, Intravenous, EVERY 6 HOURS PRN, Starting on Mon08/04/21 at 1527, Until Mon08/05/21 at 1628, Nausea - 1st line, 1. First Line Antiemetic. 2. Use Injection only if patient unable to tolerate oral medications. ondansetron (ZOFRAN-ODT) disintegrating tablet 4 mg 4 mg, Oral, EVERY 6 HOURS PRN, Starting on Mon08/04/21 at 1527, Until Mon08/05/21 at 1628, Nausea - 1st line, 1. First Line Antiemetic. 2. Use PO form unless unable to tolerate PO medications, then use Injection phenol (CHLORASEPTIC) 1.4 % 1 [place] 1 [place], Mouth/Throat, PRN, Starting on Mon08/03/21 at 2353, Until Mon08/05/21 at 1628, Sore Throat, Irritation pregabalin (LYRICA) capsule 75 mg 75 mg, Per NG tube, 2 TIMES DAILY, First dose on Mon08/03/21 at 2100, Until Discontinued Given 08/03/2021 9:40 PM CDT 75 mg pregabalin (LYRICA) capsule 75 mg 75 mg, Oral, 2 TIMES DAILY, First dose (after last modification) on Mon08/04/21 at 2100, Until Discontinued Given 08/05/2021 9:03 AM CDT 75 mg Given 08/04/2021 9:28 PM CDT 75 mg sertraline (ZOLOFT) tablet 150 mg 150 mg, Per NG tube, DAILY, First dose on Mon08/03/21 at 2100, Until Discontinued Given 08/04/2021 2:11 PM CDT 150 mg Given 08/03/2021 9:40 PM CDT 150 mg sertraline (ZOLOFT) tablet 150 mg 150 mg, Oral, DAILY, First dose (after last modification) on Mon08/05/21 at 0900, Until Discontinued Given 08/05/2021 9:03 AM CDT 150 mg simvastatin (ZOCOR) tablet 10 mg 10 mg, Per NG tube, NIGHTLY, First dose on Mon08/03/21 at 2100, Until Discontinued Given 08/03/2021 9:40 PM CDT 10 mg simvastatin (ZOCOR) tablet 10 mg 10 mg, Oral, NIGHTLY, First dose (after last modification) on Mon08/04/21 at 2100, Until Discontinued Given 08/04/2021 9:28 PM CDT 10 mg traZODone (DESYREL) tablet 100 mg 100 mg, Per NG tube, NIGHTLY, First dose on Mon08/03/21 at 2100, Until Discontinued Given 08/03/2021 9:40 PM CDT 100 m g traZODone (DESYREL) tablet 100 mg 100 mg, Oral, NIGHTLY, First dose (after last modification) on Mon08/04/21 at 2100, Until Discontinued Given 08/04/2021 9:28 PM CDT 100 mg triamterene-hydrochlorothiazide (MAXZIDE) 37.5-25 MG per tablet 1 Tablet 1 Tablet, Per NG tube, DAILY, First dose on Mon08/03/21 at 2100, Until Discontinued Given 08/04/2021 2:10 PM CDT 1 Tab let Given 08/03/2021 9:40 PM CDT 1 Tablet triamterene-hydrochlorothiazide (MAXZIDE) 37.5-25 MG per tablet 1 Tablet 1 Tablet, Oral, DAILY, First dose (after last modification) on Mon08/05/21 at 0900, Until Discontinued Given 08/05/2021 9:03 AM CDT 1 Tablet documented in this encounter Active and Recently Administered Medications Times are shown in CDT. Scheduled Medication Order 08/03/2021 08/04/2021 08/05/2021 0.9 % sodium chloride solution (COMPLETED) at 1,000 mL/hr, Intravenous, ONCE, 1 dose, On Mon08/03/21 at 1500 1500 (New Bag - Provider: Jaylin Najera, AGUILA)1611 (Stopped - Provider: Jaylin Najera RN) 0.9 % sodium chloride solution (COMPLETED) at 1,000 mL/hr, Intravenous, ONCE, 1 dose, On Mon08/03/21 at 1730 1718 (New Bag - Provider: Jaylin Najera, AGUILA)1826 (Stopped - Provider: Jaylin Najera, AGUILA) ARIPiprazole (ABILIFY) tablet 20 mg (CANCELED) 20 mg, Per NG tube, DAILY, First dose on Mon08/04/21 at 0900, Until Discontinued 1410 (Given - Provider: Maame Benjamin, RN - Comment: Patient having test) ARIPiprazole (ABILIFY) tablet 20 mg 20 mg, Oral, DAILY, First dose (after last modification) on Mon08/05/21 at 0900, Until Discontinued 0903 (Given - Provider: Rosina Sheridan, AGUILA) diatrizoate meglumine-sodium (GASTROGRAFIN) 66-10 % solution 180 mL (COMPLETED) 180 mL, Oral, ONCE, 1 dose, On Mon08/04/21 at 0930 0845 (Given - Provider: Cely Ybarra, RTR - Comment: via NG) diphenhydrAMINE (BENADRYL) injection 25 mg (COMPLETED) 25 mg, Intravenous, ONCE, 1 dose, On Mon08/04/21 at 0030 0006 (Given - Provider: Monika Redmond RN) DULoxetine (CYMBALTA) capsule 60 mg 60 mg, Oral, NIGHTLY, First dose (after last modification) on Mon08/04/21 at 2100, Until Discontinued, Do not crush. 2127 (Given - Provider: Pb Rodriguez, AGUILA) famotidine (PF) (PEPCID) injection 20 mg 20 mg, Intravenous, 2 TIMES DAILY, First dose on Mon08/03/21 at 2100, Until Discontinued, Indications: Stress Ulcer Prophylaxis, Symptomatic Gastroesophageal Reflux Disease 2137 (Given - Provider: Monika Redmond, AGUILA) 143 (Given - Provider: Maame Benjamin, AGUILA - Comment: pt at testing)2127 (Given - Provider: Pb Rodriguez RN) 09 (Given - Provider: Rosina Sheridan, AGUILA) insulin lispro (HumaLOG) 100 UNIT/ML injection 1-6 Units 1-6 Units, Subcutaneous, EVERY 6 HOURS, First dose on Mon08/04/21 at 0130, Until Discontinued, To be given together with [...] 400, give 6 units and call physician. 0130 (Not Given - Provider: Monika Redmond RN - Reason: Order parameters not met)0730 (Not Given - Provider: Maame Benjamin RN - Reason: Order parameters not met)1330 (Not Given - Provider: Maame Benjamin RN - Reason: Order parameters not met)1930 (Not Given - Provider: Pb Rodriguez RN - Reason: Patient/family refused) 0130 (Not Given - Provider: Pb Rodriguez RN - Reason: Patient/family refused)0730 (Not Given - Provider: Rosina Sheridan RN - Reason: Order parameters not met)1330 (Not Given - Provider: Rosina Sheridan RN - Reason: Patient/family refused) iopamidol (ISOVUE-370) 76 % injection 120 mL (COMPLETED) 120 mL, Intravenous, ONCE, 1 dose, On Mon08/03/21 at 1630 1613 (Given - Provider: Krystal Spann, RT(R) (CT)) levothyroxine (SYNTHROID) tablet 50 mcg (CANCELED) 50 mcg, Per NG tube, DAILY, First dose on Mon08/04/21 at 0900, Until Discontinued 141 (Given - Provider: Maame Benjamin RN - Comment: Patient having test) levothyroxine (SYNTHROID) tablet 50 mcg 50 mcg, Oral, DAILY, First dose (after last modification) on Mon08/05/21 at 0900, Until Discontinued 0904 (Given - Provider: Rosina Sheridan RN) losartan (COZAAR) tablet 50 mg (CANCELED) 50 mg, Per NG tube, DAILY, First dose on Mon08/03/21 at 2100, Until Discontinued 2140 (Given - Provider: Monika Redmond RN) 1411 (Given - Provider: Maame Benjamin RN - Comment: Patient having test) losartan (COZAAR) tablet 50 mg 50 mg, Oral, DAILY, First dose (after last modification) on Mon08/05/21 at 0900, Until Discontinued 902 (Given - Provider: Rosina Sheridan RN) metoprolol tartrate (LOPRESSOR) per half tablet 12.5 mg (CANCELED) 12.5 mg, Per NG tube, 2 TIMES DAILY, First dose on Mon08/03/21 at 2100, Until Discontinued 2139 (Given - Provider: Monika Redmond RN) 141 (Given - Provider: Maame Benjamin, AGUILA - Comment: Patient having test) metoprolol tartrate (LOPRESSOR) per half tablet 12.5 mg 12.5 mg, Oral, 2 TIMES DAILY, First dose (after last modification) on Mon08/04/21 at 2100, Until Discontinued 2127 (Given - Provider: Pb Rodriguez RN) 902 (Given - Provider: Rosina Sheridan, AGUILA) morphine sulfate (PF) injection 2 mg (COMPLETED) 2 mg, Intravenous, ONCE, 1 dose, On Mon08/03/21 at 1730 1709 (Given - Provider: Jaylin Najera RN) naproxen (NAPROSYN) tablet 250 mg (CANCELED) 250 mg, Per NG tube, 2 TIMES DAILY, First dose on Mon08/03/21 at 2100, Until Discontinued 2139 (Given - Provider: Monika Redmond RN) 141 (Given - Provider: Maame Benjamin RN - Comment: Patient having test) naproxen (NAPROSYN) tablet 250 mg 250 mg, Oral, 2 TIMES DAILY, First dose (after last modification) on Mon08/04/21 at 2100, Until Discontinued 2127 (Given - Provider: Pb Rodriguez RN) 09 (Given - Provider: Rosina Sheridan RN) pregabalin (LYRICA) capsule 75 mg (CANCELED) 75 mg, Per NG tube, 2 TIMES DAILY, First dose on Mon08/03/21 at 2100, Until Discontinued 2139 (Given - Provider: Monika Redmond RN) 141 (Not Given - Provider: Maame Benjamin RN - Reason: Patient/family refused - Comment: Patient having test) pregabalin (LYRICA) capsule 75 mg 75 mg, Oral, 2 TIMES DAILY, First dose (after last modification) on Mon08/04/21 at 2100, Until Discontinued 2127 (Given - Provider: Pb Rodriguez RN) 902 (Given - Provider: Rosina Sheridan RN) sertraline (ZOLOFT) tablet 150 mg (CANCELED) 150 mg, Per NG tube, DAILY, First dose on Mon08/03/21 at 2100, Until Discontinued 2139 (Given - Provider: Monika Redmond RN) 141 (Given - Provider: Maame Benjamin RN - Comment: Patient having test) sertraline (ZOLOFT) tablet 150 mg 150 mg, Oral, DAILY, First dose (after last modification) on Mon08/05/21 at 0900, Until Discontinued 902 (Given - Provider: Rosina Sheridan RN) simvastatin (ZOCOR) tablet 10 mg (CANCELED) 10 mg, Per NG tube, NIGHTLY, First dose on Mon08/03/21 at 2100, Until Discontinued 2139 (Given - Provider: Monika Redmond RN) simvastatin (ZOCOR) tablet 10 mg 10 mg, Oral, NIGHTLY, First dose (after last modification) on Mon08/04/21 at 2100, Until Discontinued 2127 (Given - Provider: Pb Rodriguez RN) traZODone (DESYREL) tablet 100 mg (CANCELED) 100 mg, Per NG tube, NIGHTLY, First dose on Mon08/03/21 at 2100, Until Discontinued 2139 (Given - Provider: Monika Redmond RN) traZODone (DESYREL) tablet 100 mg 100 mg, Oral, NIGHTLY, First dose (after last modification) on Mon08/04/21 at 2100, Until Discontinued 2127 (Given - Provider: Pb Rodriguez RN) triamterene-hydrochlorothi azide (MAXZIDE) 37.5-25 MG per tablet 1 Tablet (CANCELED) 1 Tablet, Per NG tube, DAILY, First dose on Mon08/03/21 at 2100, Until Discontinued 2139 (Given - Provider: Monika Redmond RN) 141 (Given - Provider: Maame Benjamin RN - Comment: Patient having test) triamterene-hydrochlorothi azide (MAXZIDE) 37.5-25 MG per tablet 1 Tablet 1 Tablet, Oral, DAILY, First dose (after last modification) on Mon08/05/21 at 0900, Until Discontinued 0903 (Given - Provider: Rosina Sheridan, AGUILA) Continuous Medication Order 08/03/2021 08/04/2021 08/05/2021 0.9 % sodium chloride solution at 100 mL/hr, Intravenous, CONTINUOUS, Starting on Mon08/03/21 at 2030, Until Mon08/05/21 at 1628 2137 (New Bag - Provider: Monika Redmond, AGUILA) 1434 (Stopped - Provider: Maame Benjamin, AGUILA)1435 (New Bag - Provider: Maame Benjamin RN)2353 (Stopped - Provider: Pb Rodriguez, AGUILA)2354 (New Bag - Provider: Pb Rodriguez, AGUILA) 0945 (Stopped - Provider: Rosina Sheridan RN) PRN Medication Order 08/03/2021 08/04/2021 08/05/2021 acetaminophen (TYLENOL) 650 MG/20.3ML solution 650 mg (CANCELED) 650 mg, Per NG tube, EVERY 4 HOURS PRN, Starting on Mon08/03/21 at 1956, Until Mon08/04/21 at 1528, Mild pain or more severe pain if patient requests, Fever, If patient is taking oral intake without complications and both PO/VA orders are active, administer through the oral route. 1420 (Given - Provider: Maame Benjamin RN) acetaminophen (TYLENOL) 650 MG/20.3ML solution 650 mg(Linked Group 1) 650 mg, Oral, EVERY 4 HOURS PRN, Starting on Mon08/04/21 at 1526, Until Mon08/05/21 at 1628, Mild pain or more severe pain if patient requests, Fever, If patient is taking oral intake without complications and both PO/VA orders are active, administer through the oral route. 0114 (Given - Provid er: Pb Rodriguez RN) acetaminophen (TYLENOL) suppository 650 mg(Linked Group 1) 650 mg, Rectal, EVERY 4 HOURS PRN, Starting on Mon08/04/21 at 1526, Until Mon08/05/21 at 1628, Mild pain or more severe pain if patient requests, Fever, If patient is taking oral intake without complications and both PO/VA orders are active, administer through the oral route. 0114 (See Alternativ e - Provider: Pb Rodriguez RN) aluminum & magnesium hydroxide-simethicone (MAALOX, MYLANTA) 200-200-20 MG/5ML SUSP 20 mL 20 mL, Oral, EVERY 6 HOURS PRN, Starting on Mon08/04/21 at 1526, Until Mon08/05/21 at 1628, Indigestion, Heartburn, Shake well. baclofen (LIORESAL) tablet 20 mg 20 mg, Oral, 2 TIMES DAILY PRN, Starting on Mon08/04/21 at 1526, Until Mon08/05/21 at 1628, Muscle spasms 0114 (Given - Provid er: Pb Rodriguez RN)0908 (Given - Provider: Rosina Sheridan RN) calcium carbonate (TUMS) chewable tablet 1,000 mg 1,000 mg, Oral, EVERY 8 HOURS PRN, Starting on Mon08/04/21 at 1526, Until Natalie 08/05/21 at 1628, Heartburn, Indigestion dextrose 50 % solution 12.5 g(Linked Group 2) 12.5 g, Intravenous, PRN, Starting on Mon08/04/21 at 0047, Until Natalie 08/05/21 at 1628, Low blood sugar, If IV patent in patient with blood glucose of 50 or less, or Unconscious, Conscious but NPO or Unable to Swallow regardless of blood glucose, administer 1 dose of dextrose 50% solution. glucagon injection SOLR 1 mg(Linked Group 2) 1 mg, Intramuscular, PRN, Starting on Mon08/04/21 at 0047, Until Natalie 08/05/21 at 1628, Low blood sugar, If patient has no intravenous access and blood glucose of 50 or less, or Unconscious, Conscious but NPO or Unable to Swallow regardless of blood glucose administer 1 dose of glucagon. Glucagon may cause vomiting. Position patient on the side. glucagon injection SOLR 1 mg(Linked Group 2) 1 mg, Subcutaneous, PRN, Starting on Mon08/04/21 at 0047, Until Natalie 08/05/21 at 1628, Low blood sugar, If patient has no intravenous access and blood glucose of 50 or less, or Unconscious, Conscious but NPO or Unable to Swallow regardless of blood glucose administer 1 dose of glucagon. Glucagon may cause vomiting. Position patient on the side. glucose (INSTA-GLUCOSE) 77.4 % gel 15 g(Linked Group 2) 15 g, Oral, PRN, Starting on Mon08/04/21 at 0047, Until Natalie 08/05/21 at 1628, Low blood sugar, Dose is based on glucose. 37.5 g tube = 15 GRAMS of GLUCOSE. For 15 GRAM GLUCOSE dose, give entire 37.5 g size tube. Administer 1 dose if patient is unable to take food, but conscious and able to swallow. ondansetron (ZOFRAN) injection 4 mg(Linked Group 3) 4 mg, Intravenous, EVERY 6 HOURS PRN, Starting on Mon08/04/21 at 1527, Until Natalie 08/05/21 at 1628, Nausea - 1st line, 1. First Line Antiemetic. 2. Use Injection only if patient unable to tolerate oral medications. ondansetron (ZOFRAN-ODT) disintegrating tablet 4 mg(Linked Group 3) 4 mg, Oral, EVERY 6 HOURS PRN, Starting on Mon08/04/21 at 1527, Until Natalie 08/05/21 at 1628, Nausea - 1st line, 1. First Line Antiemetic. 2. Use PO form unless unable to tolerate PO medications, then use Injection phenol (CHLORASEPTIC) 1.4 % 1 [place] 1 [place], Mouth/Throat, PRN, Starting on Mon08/03/21 at 2353, Until Mon08/05/21 at 1628, Sore Throat, Irritation Linked Groups Order Group 1: acetaminophen (TYLENOL) 650 MG/20.3ML solution 650 mgJump to med 650 mg, Oral, EVERY 4 HOURS PRN, Starting on Mon08/04/21 at 1526, Until Natalie 08/05/21 at 1628, Mild pain or more severe pain if patient requests, Fever, If patient is taking oral intake without complications and both PO/VA orders are active, administer through the oral route. Or acetaminophen (TYLENOL) suppository 650 mgJump to med 650 mg, Rectal, EVERY 4 HOURS PRN, Starting on Mon08/04/21 at 1526, Until Mon08/05/21 at 1628, Mild pain or more severe pain if patient requests, Fever, If patient is taking oral intake without complications and both PO/VA orders are active, administer through the oral route. Group 2: glucose (INSTA-GLUCOSE) 77.4 % gel 15 gJump to med 15 g, Oral, PRN, Starting on Mon08/04/21 at 0047, Until Natalie 08/05/21 at 1628, Low blood sugar, Dose is based on glucose. 37.5 g tube = 15 GRAMS of GLUCOSE. For 15 GRAM GLUCOSE dose, give entire 37.5 g size tube. Administer 1 dose if patient is unable to take food, but conscious and able to swallow. Or dextrose 50 % solution 12.5 gJump to med 12.5 g, Intravenous, PRN, Starting on Mon08/04/21 at 0047, Until Natalie 08/05/21 at 1628, Low blood sugar, If IV patent in patient with blood glucose of 50 or less, or Unconscious, Conscious but NPO or Unable to Swallow regardless of blood glucose, administer 1 dose of dextrose 50% solution. Or glucagon injection SOLR 1 mgJump to med 1 mg, Intramuscular, PRN, Starting on Mon08/04/21 at 0047, Until Natalie 08/05/21 at 1628, Low blood sugar, If patient has no intravenous access and blood glucose of 50 or less, or Unconscious, Conscious but NPO or Unable to Swallow regardless of blood glucose administer 1 dose of glucagon. Glucagon may cause vomiting. Position patient on the side. Or glucagon injection SOLR 1 mgJump to med 1 mg, Subcutaneous, PRN, Starting on Mon08/04/21 at 0047, Until Natalie 08/05/21 at 1628, Low blood sugar, If patient has no intravenous access and blood glucose of 50 or less, or Unconscious, Conscious but NPO or Unable to Swallow regardless of blood glucose administer 1 dose of glucagon. Glucagon may cause vomiting. Position patient on the side. Group 3: ondansetron (ZOFRAN-ODT) disintegrating tablet 4 mgJump to med 4 mg, Oral, EVERY 6 HOURS PRN, Starting on Mon08/04/21 at 1527, Until Natalie 08/05/21 at 1628, Nausea - 1st line, 1. First Line Antiemetic. 2. Use PO form unless unable to tolerate PO medications, then use Injection Or ondansetron (ZOFRAN) injection 4 mgJump to med 4 mg, Intravenous, EVERY 6 HOURS PRN, Starting on Mon08/04/21 at 1527, Until Natalie 08/05/21 at 1628, Nausea - 1st line, 1. First Line Antiemetic. 2. Use Injection only if patient unable to tolerate oral medications. documented in this encounter Care Teams Route Delivery Driver Relationship Specialty Start Date End Date Daja Carballo MD [address] [place] [address] PCP - General Internal Medicine 03/13/15 documented as of this encounter
--- OUTSIDE RECORDS SUMMARY | 2024-03-03 19:28 | XMS_ITS | Encounter Summary ---
Author Organization [facility] Address [address] [place] [address] Phone Care Team Providers Care It Project Lead Name Role Phone Daja Kern MD Primary Care Provider Reason for Visit * Auth/Cert (Routine) Specialty Diagnoses / Procedures Referred By Contac t Referred To Contact Referral ID Status Reason Start Date Expiration Date Visits Re quested Visits Authorized [id number] 1 1 Encounter Details Date Type Department Care Team (Latest Contact Info) Description 02/11/2022 12:00 PM BUTCHER ASSISTANT [facility] [address] [place] [address] Sr Jeana Butcher RN MD SN - [facility] Social History Tobacco Use Types Packs/Day Years [...] to have Coronavirus/COVID-19? Yes 02/15/2022 3:14 PM BUTCHER ASSISTANT documented as of this encounter Last Filed Vital Signs Vital Sign Reading Time Taken Comments Blood Pressure 148/82 02/11/2022 11:50 AM BUTCHER ASSISTANT Pulse 74 02/11/2022 11:50 AM BUTCHER ASSISTANT Temperature 36.4 ??C (97.5 ??F) 02/11/2022 11:[address] Respiratory Rate 16 02/11/2022 11:50 AM BUTCHER ASSISTANT Oxygen Saturation 97% 02/11/2022 11:50 AM BUTCHER ASSISTANT Inhaled Oxygen Concentration - - Weight 72.6 kg (160 lb) 02/11/2022 11:50 AM BUTCHER ASSISTANT Height 157.5 cm (5' 2 ) 02/11/2022 11:50 AM BUTCHER ASSISTANT Body Mass Index 29.26 02/11/2022 11:50 AM BUTCHER ASSISTANT documented in this encounter Plan of Treatment Upcoming Encounters Date Type Department Care Team (Late st Contact Info) Description 03/27/2024 8:30 AM BUTCHER ASSISTANT [facility] [address] [place] [address] Burt Eastman MD [address] [address] 03/27/2024 8:30 AM BUTCHER ASSISTANT - 03/27/2024 9:00 AM BUTCHER ASSISTANT [facility] [address] [place] [address] Burt Eastman MD [address] [address] COLONOSCOPY 04/09/2024 1:15 PM BUTCHER ASSISTANT [facility] - [place] [address] [place] [address] Baron Vergara MD [address] [place] [address] Scheduled Procedures Name Priority Associated Diagnoses Date/Ti me COLONOSCOPY HISTORY OF COLON POLYPS 03/27/2024 8:30 AM BUTCHER ASSISTANT documented as of this encounter Visit Diagnoses Not on filedocumented in this encounter Additional Health Concerns Infection Onset Date Last Indicated Resolved Time Respiratory Rule-Out 02/08/2022 02/08/2022 023 12:16 AM BUTCHER ASSISTANT Influenza 02/08/2022 02/08/2022 02/15/2022 12:1 9 AM BUTCHER ASSISTANT COVID - 19 Confirmed 02/08/2022 02/08/2022 023 12:16 AM BUTCHER ASSISTANT documented as of this encounter Home Health Visit - Care Plan Visit Details Visit Type -SN - [facility] Discipline -[facility] Problems Problem Description Start Date Status Goals Interve ntions /[facility] COVID-19 Disciplines: SN, PT, OT, COMPUTER TECHNICAL SUPPORT SPECIALIST, PRODUCTION CONTROL PEGBOARD CLERK, RT 02/11/2022 Active 1 goal linked to scheduled/documen arnulfo intervention 1 goal intervention scheduled/document ed in this visit SN GENERAL ORDERS Disciplines: [facility] SN General Orders 02/11/2022 Active 1 goal linked to scheduled/documen arnulfo intervention 1 goal intervention scheduled/document ed in this visit Goals Goal Associated Problem Outcome Goal Met? Visit Notes COVID-19 Description: Patient/caregivers will verbalize understanding of COVID-19 and symptoms to report and home management strategies by date 02/26/22 /[facility] COVID-19 No SN General Description: After [...] social distancing, aerosolizing procedures, and COVID-19 precautions. Problem:/[facility] COVID-19 Goal:COVID-19 Completed Is patient experiencing [...] separation from family/ pets and communication strategies, PPE: wear a facemask around others in the room, the car and before entering a public place, Cover coughs and sneezes, dispose of tissues in a lined trashcan and wash hands., Wash hands often with soap and water for 20+ seconds or alcohol organisational psychologist until hands feel dry. and Avoid touching your face with unwashed hands. Instruction provided to Patient. Response verbalize understanding General Nursing Plan of Care (Order Only) [...] Social Work Focus: ACP, depression, financial resources Medical Records Manager to provide: not ordered Past Medical History: Lumbar pars defect [M43.06], Lumbar facet arthropathy [M47.816] 08/09/2017, GERD (gastroesophageal reflux disease) [K21.9], Hypertension [I10], Hyperlipidemia [E78.5], Bipolar disorder (HCC) [F31.9], Depression [F32.A], Hypothyroid [E03.9], Sepsis ([facility]) [A41.9] 10/03/2018, Enterocolitis [K52.9] 10/03/2018, Abnormal CT scan [R93.89] 10/03/2018, Cocaine use [F14.90] 10/03/2018, SBO (small bowel obstruction) ([facility]) [K56.609] 02/20/2021, Morbid obesity with BMI of 45.0-49.9, adult ([facility]) [E66.01, Z68.42] 02/20/2021 Other contributing issues: no [...] Completed documented in this encounter Care Teams It Project Lead Relationship Specialty Start Date End Date Daja Kern MD [address] [place] [address] PCP - General Internal Medicine 03/13/15 documented as of this encounter
--- OUTSIDE RECORDS SUMMARY | 2024-03-03 19:28 | XMS_ITS | Encounter Summary ---
Author Organization [facility] Address [address] [place] [address] Phone Care Team Providers Care Rn Navigator Name Role Phone Daja Kern MD Primary Care Provider [phone] Reason for Visit * Auth/Cert (Routine) Specialty Diagnoses / Procedures Referred By Contac t Referred To Contact Referral ID Status Reason Start Date Expiration Date Visits Re quested Visits Authorized [id number] 1 1 Encounter Details Date Type Department Care Team (Late st Contact Info) Description 02/14/2022 8:00 AM SCREW MACHINE OPERATOR [facility] [address] [place] [address] Sr Jeana Butcher RN [place] - [place] VISIT Social [...] to have Coronavirus/COVID-19? Yes 02/15/2022 3:14 PM SCREW MACHINE OPERATOR documented as of this encounter Last Filed Vital Signs Vital Sign Reading Time Taken Comments Blood Pressure 164/110 02/14/2022 1:35 PM SCREW MACHINE OPERATOR Pulse 96 02/14/2022 1:35 PM SCREW MACHINE OPERATOR Temperature 36.6 ??C (97.8 ??F) 02/14/2022 1:35 PM CS T Respiratory Rate 20 02/14/2022 1:35 PM SCREW MACHINE OPERATOR Oxygen Saturation 97% 02/14/2022 1:35 PM SCREW MACHINE OPERATOR Inhaled Oxygen Concentration - - Weight - - Height - - Body Mass Index - - documented in this encounter Plan of Treatment Upcoming Encounters Date Type Department Care Team (Late st Contact Info) Description 03/27/2024 8:30 AM SCREW MACHINE OPERATOR [facility] [place] [address] Burt Eastman MD [address] [address] 03/27/2024 8:30 AM SCREW MACHINE OPERATOR - 03/27/2024 9:00 AM SCREW MACHINE OPERATOR [facility] [address] [place] [address] Burt Eastman MD [address] [address] COLONOSCOPY 04/09/2024 1:15 PM SCREW MACHINE OPERATOR Office Visit [facility] - Pulmonology & Sleep Medicine [facility] [address] [place] [address] Baron Vergara MD [address]2 [place] [address] Scheduled Procedures Name Priority Associated Diagnoses Date/Ti me COLONOSCOPY HISTORY OF COLON POLYPS 03/27/2024 8:30 AM SCREW MACHINE OPERATOR documented as of this encounter Visit Diagnoses Not on filedocumented in this encounter Additional Health Concerns Infection Onset Date Last Indicated Resolved Time Respiratory Rule-Out 02/08/2022 02/08/2022 023 12:16 AM SCREW MACHINE OPERATOR Influenza 02/08/2022 02/08/2022 02/15/2022 12:1 9 AM SCREW MACHINE OPERATOR COVID - 19 Confirmed 02/08/2022 02/08/2022 023 12:16 AM SCREW MACHINE OPERATOR documented as of this encounter Home Health Visit - Care Plan Visit Details Visit Type -SN - Home Health Visit Discipline -Senior Living Problems Problem Description Start Date Status Goals Interve ntions /[facility] COVID-19 Disciplines: SN, PT, OT, PRINT FINISHING WORKER, CLOTH CALENDER, RT 02/11/2022 Active 1 goal linked to scheduled/documen arnulfo intervention 1 goal intervention scheduled/document ed in this visit SN GENERAL ORDERS Disciplines: Senior Living SN General Orders 02/11/2022 Active 1 goal linked to scheduled/documen arnulfo intervention 2 goal interventions scheduled/document ed in this visit Goals Goal Associated Problem Outcome Goal Met? Visit Notes COVID-19 Description: Patient/caregivers will verbalize understanding of COVID-19 and symptoms to report and home management strategies by date 02/26/22 /[facility] COVID-19 No SN General Description: After assessing [...] social distancing, aerosolizing procedures, and COVID-19 precautions. Problem:/[facility] COVID-19 Goal:COVID-19 Completed Is patient experiencing any new or worsening COVID-19 symptoms? No COVID-19 education provided: Check Pulse Oximetry twice daily and if experiencing breathing difficulty, also encouraged after performing activities, Call Home Care if pulse ox remains below 90%, Report new or worsening symptoms: Fever 100.4F/38C or above, cough, shortness of breath and Home isolation for physician recommended timeframe. [...] Social Work Focus: ACP, depression, financial resources Logistics And Planning Manager to provide: not ordered Past Medical History: Lumbar pars defect [M43.06], Lumbar facet arthropathy [M47.816] 08/09/2017, GERD (gastroesophageal reflux disease) [K21.9], Hypertension [I10], Hyperlipidemia [E78.5], Bipolar disorder ([facility]) [F31.9], Depression [F32.A], Hypothyroid [E03.9], Sepsis ([facility]) [A41.9] 10/03/2018, Enterocolitis [K52.9] 10/03/2018, Abnormal CT scan [R93.89] 10/03/2018, Cocaine use [F14.90] 10/03/2018, SBO (small bowel obstruction) ([facility]) [K56.609] 02/20/2021, Morbid obesity with BMI of 45.0-49.9, adult ([facility]) [E66.01, Z68.42] 02/20/2021 Other contributing issues: [...] Completed Exacerbation/ complications noted at this visit: HTN bp 164/110 documented in this encounter Care Teams Rn Navigator Relationship Specialty Start Date End Date Daja Kern MD [address] [place] [address] PCP - General Internal Medicine 03/13/15 documented as of this encounter
--- OUTSIDE RECORDS SUMMARY | 2024-03-03 19:28 | XMS_ITS | Encounter Summary ---
Author Organization [facility] [employer] [facility] Care Team Providers Care Water Hydrant Installer Name Role Phone Daja Kern MD Primary Care Provider [phone] Encounter Details Date Type Department Care Team (Latest Contact Info) Description 09/03/2021 Travel Social History Tobacco Use Types Packs/Day [...] st Contact Info) Description 03/27/2024 8:30 AM MILK TANKER DRIVER [facility] 1 [facility] [place] [address] Burt Eastman MD 2 [facility] [address] [address] 03/27/2024 8:30 AM MILK TANKER DRIVER - 03/27/2024 9:00 AM MILK TANKER DRIVER [facility] 1 [place] [address] Burt Eastman MD [address] [address] COLONOSCOPY 04/09/2024 1:15 PM MILK TANKER DRIVER [facility] [address] [place] [address] Baron Vergara MD [address] [place] [address] Scheduled Procedures Name Priority Associated Diagnoses Date/Ti me COLONOSCOPY HISTORY OF COLON POLYPS 03/27/2024 8:30 AM MILK TANKER DRIVER documented as of this encounter Visit Diagnoses Not on filedocumented in this encounter Care Teams Water Hydrant Installer Relationship Specialty Start Date End Date Daja Kern MD [address] [place] [address] PCP - General Internal Medicine 03/13/15 documented as of this encounter
--- OUTSIDE RECORDS SUMMARY | 2024-03-03 19:29 | XMS_ITS | Encounter Summary ---
Author Organization [facility] [employer] [facility] Care Team Providers Care Campaign Coordinator Name Role Phone Daja Kern MD Primary Care Provider [phone] Encounter Details Date Type Department Care Team (Latest Contact Info) Description 07/29/2020 Travel Social History Tobacco Use Types Packs/Day [...] Exposure Response Date Recorded In the last month, have you been in contact with someone who was confirmed or suspected to have Coronavirus / COVID-19? No / Unsure 07/29/2020 12:59 PM CDT documented as of this encounter Plan of Treatment Upcoming Encounters Date Type Department Care Team (Late st Contact Info) Description 03/27/2024 8:30 AM BENCH ASSEMBLER [facility] [address] [place] [address] Burt Eastman MD [address] [address] 03/27/2024 8:30 AM BENCH ASSEMBLER - 03/27/2024 9:00 AM BENCH ASSEMBLER [facility] 1 [place] [address] Burt Eastman MD [address] [address] COLONOSCOPY 04/09/2024 1:15 PM BENCH ASSEMBLER Office Visit [facility] - Pulmonology & [facility] [address] [place] [address] Baron Vergara MD [address] [place] [address] Scheduled Procedures Name Priority Associated Diagnoses Date/Ti me COLONOSCOPY HISTORY OF COLON POLYPS 03/27/2024 8:30 AM BENCH ASSEMBLER documented as of this encounter Visit Diagnoses Not on filedocumented in this encounter Care Teams Campaign Coordinator Relationship Specialty Start Date End Date Daja Kern MD [address] [place] [address] PCP - General Internal Medicine 03/13/15 documented as of this encounter
--- OUTSIDE RECORDS SUMMARY | 2024-03-03 19:29 | XMS_ITS | Encounter Summary ---
Author Organization [facility] [email or web address] [facility] Care Team Providers Care Cheese Specialist Name Role Phone Daja Kern MD Primary Care Provider [phone] Encounter Details Date Type Department Care Team (Latest Contact Info) Description 02/20/2021 Travel Social History Tobacco Use Types Packs/Day [...] have Coronavirus / COVID-19? No / Unsure 02/20/2021 2:32 PM POWDER MILL OPERATOR documented as of this encounter Plan of Treatment Upcoming Encounters Date Type Department Care Team (Late st Contact Info) Description 03/27/2024 8:30 AM POWDER MILL OPERATOR [facility] 1 [place] [address] Burt Eastman MD [address] [address] 03/27/2024 8:30 AM POWDER MILL OPERATOR - 03/27/2024 9:00 AM POWDER MILL OPERATOR [facility] 1 [place] [address] Burt Eastman MD [address] [address] COLONOSCOPY 04/09/2024 1:15 PM POWDER MILL OPERATOR Office Visit [facility] - Pulmonology & Sleep Medicine [facility] [address] [place] [address] Baron Vergara MD [address] [place] [address] Scheduled Procedures Name Priority Associated Diagnoses Date/Ti me COLONOSCOPY HISTORY OF COLON POLYPS 03/27/2024 8:30 AM POWDER MILL OPERATOR documented as of this encounter Visit Diagnoses Not on filedocumented in this encounter Care Teams Cheese Specialist Relationship Specialty Start Date End Date Daja Kern MD [address] [place] [address] PCP - General Internal Medicine 03/13/15 documented as of this encounter
--- OUTSIDE RECORDS SUMMARY | 2024-03-03 19:29 | XMS_ITS | Encounter Summary ---
Author Organization [facility] Address [address] [place] [address] Phone Care Team Providers Care Windows Migration Technician Name Role Phone Daja Kern MD Primary Care Provider [phone] Reason for Visit * Reason Onset Date Comments Transition of Care 02/23/2021 Encounter Details Date Type Department Care Team (Late Contact Info) Description 02/23/2021 Post Discharge Follow-up [facility] [address] [place] [address] [place] [address] Daja Kern MD [address] [place] [address] Social History Tobacco Use Types Packs/Day Years [...] COVID-19? No / Unsure 02/20/2021 2:32 PM FLATWORK SUPERVISOR documented as of this encounter Plan of Treatment Upcoming Encounters Date Type Department Care Team (Late Contact Info) Description 03/27/2024 8:30 AM FLATWORK SUPERVISOR [facility] [address] [place] [address] Burt Eastman MD [address] [address] 03/27/2024 8:30 AM FLATWORK SUPERVISOR - 03/27/2024 9:00 AM FLATWORK SUPERVISOR [facility] 1 [place] [address] Burt Eastman MD [address] [address] COLONOSCOPY 04/09/2024 1:15 PM FLATWORK SUPERVISOR Office Visit [facility] - Pulmonology & Sleep Medicine [facility] #[address] [place] [address] Baron Vergara MD [address] [place] [address] Scheduled Procedures Name Priority Associated Diagnoses Date/Ti me COLONOSCOPY HISTORY OF COLON POLYPS 03/27/2024 8:30 AM FLATWORK SUPERVISOR documented as of this encounter Visit Diagnoses Not on filedocumented in this encounter Care Teams Windows Migration Technician Relationship Specialty Start Date End Date aDja Kern MD [address] [place] [address] PCP - General Internal Medicine 03/13/15 documented as of this encounter
--- OUTSIDE RECORDS SUMMARY | 2024-03-03 19:29 | XMS_ITS | Encounter Summary ---
Author Organization [facility] Address [address] [place] [address] Phone Care Team Providers Care Methods Examiner Name Role Phone Daja Kern MD Primary Care Provider [phone] Reason for Referral * Radiology Services (Routine) - Closed Specialty Diagnoses / Procedures Referred By Contac t Referred To Contact Radiology Diagnoses Tachycardia, unspecified Procedures EKG 12 LEAD Daja Kern MD [address] [place] [address] Phone: tel: fax: Referral ID Status Reason Start Date Expiration Date Visits Re quested Visits Authorized [id number] Closed 10/22/2020 1 1 Encounter Details Date Type Department Care Team (Late st Contact Info) Description 10/22/2020 Transcribe Orders [facility] Scheduling 1 [place] [address] Daja Kern MD [address] [place] [address] Tachycardia, unspecified (Primary Dx) Social History Tobacco Use Types [...] st Contact Info) Description 03/27/2024 8:30 AM APPLICATIONS SUPPORT SPECIALIST [facility] 1 [place] [address] Burt Eastman MD [address] [address] 03/27/2024 8:30 AM APPLICATIONS SUPPORT SPECIALIST - 03/27/2024 9:00 AM APPLICATIONS SUPPORT SPECIALIST [facility] 1 [place] [address] Burt Eastman MD [address] [address] COLONOSCOPY 04/09/2024 1:15 PM APPLICATIONS SUPPORT SPECIALIST Office Visit [facility] - Pulmonology & Sleep Medicine [facility] #2 [place] [address] Baron Vergara MD [address]2 [place] [address] Scheduled Procedures Name Priority Associated Diagnoses Date/Ti me COLONOSCOPY HISTORY OF COLON POLYPS 03/27/2024 8:30 AM APPLICATIONS SUPPORT SPECIALIST documented as of this encounter Results * EKG 12 LEAD (11/03/2020 1:20 PM CDT) Ventricular Rate BPM EXTERNAL EKG Atrial Rate BPM EXTERNAL EKG P-R Interval 130 ms EXTERNAL EKG QRS Duration 90 ms EXTERNAL EKG Q-T Duration 324 ms EXTERNAL EKG QTC CALCULATION 445 ms EXTERNAL EKG P [place] 37 degrees EXTERNAL EKG R [place] -15 degrees EXTERNAL EKG T [place] 37 degrees EXTERNAL EKG 11/03/2020 1:20 PM CDT Impressions EXTERNAL EKG - 11/04/2020 11:31 AM CDT Sinus tachycardia Left ventricular hypertrophy by voltage only Comparison Summary: No serial comparison made Summary: Abnormal ECG Confirmed by Heath Pickens [id number] on 11/04/2020 11:31:50 AM Narrative Procedure Note Lolita Joe MD - 11/04/2020 IMPRESSION: Sinus tachycardia Left ventricular hypertrophy by voltage only Comparison Summary: No serial comparison made Summary: Abnormal ECG Confirmed by Heath Pickens [id number] on 11/04/2020 11:31:50 AM us Daja Kern MD IMG ECG ORDERABLES Final Resu lt EXTERNAL EKG documented in this encounter Visit Diagnoses Diagnosis Tachycardia, unspecified- Primary Tachycardia, unspecified documented in this encounter Care Teams Methods Examiner Relationship Specialty Start Date End Date Daja Kern MD [address] [place] [address] PCP - General Internal Medicine 03/13/15 documented as of this encounter
--- OUTSIDE RECORDS SUMMARY | 2024-03-03 19:29 | XMS_ITS | Encounter Summary ---
Author Organization [facility] Address [address] [place] [address] Phone Care Team Providers Care Dumper Bulk System Name Role Phone Daja Kern MD Primary Care Provider [phone] Reason for Visit * Reason Comments Medication Refill Encounter Details Date Type Department Care Team (Late Contact Info) Description 05/07/2020 Refill [facility] #2 [place] [address] Damian Gallardo, DO [address] [address] Medication Refill Social History Tobacco Use Types [...] Miscellaneous Notes * Telephone Encounter - Eileen Shaver CMA - 05/08/2020 12:46 PM BOOKS BINDER Patient notified, verbalized understanding, future refills of Omeprazole to go through primary. S BINDER * Telephone Encounter - Damian Gallardo DO - 05/07/2020 3:02 PM CST Future refills with primary. S BINDER * Telephone Encounter - Eileen Shaver CMA - 05/07/2020 9:01 AM BOOKS BINDER Pharmacy requesting refill of: Requested Prescriptions Pending Prescriptions Disp Refills ??? omeprazole (PriLOSEC) 40 MG CAPSULE DELAYED RELEASE [Pharmacy Med Name: OMEPRAZOLE 40MG CAPSULES] 90 Capsule 3 Sig: TAKE 1 CAPSULE BY MOUTH ONCE DAILY Last fill: 04/09/2020 Patients last OV with GI: 02/06/[address] gallardo Next Office Visit with GI: None scheduled S BINDER documented in this encounter Plan of Treatment Upcoming Encounters Date Type Department Care Team (Late st Contact Info) Description 03/27/2024 8:30 AM BOOKS BINDER [facility] 1 [place] [address] Burt Eastman MD [address] [address] 03/27/2024 8:30 AM BOOKS BINDER - 03/27/2024 9:00 AM BOOKS BINDER [facility] 1 [place] [address] Burt Eastman MD [address] [address] COLONOSCOPY 04/09/2024 1:15 PM BOOKS BINDER [facility] - [place] [address] [place] [address] Baron Vergara MD [address]2 [place] [address] Scheduled Procedures Name Priority Associated Diagnoses Date/Ti me COLONOSCOPY HISTORY OF COLON POLYPS 03/27/2024 8:30 AM BOOKS BINDER documented as of this encounter Visit Diagnoses Not on filedocumented in this encounter Care Teams Dumper Bulk System Relationship Specialty Start Date End Date Daja Kern MD [address] [place] [address] PCP - General Internal Medicine 03/13/15 documented as of this encounter
--- OUTSIDE RECORDS SUMMARY | 2024-03-03 19:29 | XMS_ITS | Encounter Summary ---
Author Organization [facility] Address [address] [place] [address] Phone Care Team Providers Care Education Associate Name Role Phone Daja Kern MD Primary Care Provider [phone] Reason for Referral * Radiology Services (Routine) - Closed Specialty Diagnoses / Procedures Referred By Contac t Referred To Contact Radiology Diagnoses Encounter for screening mammogram for malignant neoplasm of breast Procedures KIMBERLY SCREENING BILATERAL DIGITAL W CAD W CHELSEA KIMBERLY SCREENING BILATERAL DIGITAL W CAD Lili Conroy MD Referral ID Status Reason Start Date Expiration Date Visits Re quested Visits Authorized [id number] Closed 07/10/2020 1 1 Encounter Details Date Type Department Care Team (Latest Contact Info) Description 07/10/2020 Transcribe Orders [facility] Scheduling 1 [place] [address] Lili Conroy MD Encounter for screening mammogram for malignant neoplasm [...] st Contact Info) Description 03/27/2024 8:30 AM SECONDARY SCHOOL TEACHER LIBRARIAN [facility] 1 [place] [address] Burt Eastman MD [address] [address] 03/27/2024 8:30 AM SECONDARY SCHOOL TEACHER LIBRARIAN - 03/27/2024 9:00 AM SECONDARY SCHOOL TEACHER LIBRARIAN [facility] 1 [place] [address] Burt Eastman MD [address] [address] COLONOSCOPY 04/09/2024 1:15 PM SECONDARY SCHOOL TEACHER LIBRARIAN Office Visit [facility] - Pulmonology & Sleep Medicine [facility] #2 [place] [address] Baron Vergara MD #2 [place] [address] Scheduled Procedures Name Priority Associated Diagnoses Date/Ti me COLONOSCOPY HISTORY OF COLON POLYPS 03/27/2024 8:30 AM SECONDARY SCHOOL TEACHER LIBRARIAN documented as of this encounter Results * KIMBERLY SCREENING BILATERAL DIGITAL W CAD W CHELSEA (07/29/2020 2:08 PM CDT) Anatomical Region Laterality Modality breast Bilateral Mammography 07/29/2020 1:19 PM CDT Narrative 07/30/2020 3:06 PM CDT - KIMBERLY SCREENING BILATERAL DIGITAL W CAD W CHELSEA BILATERAL DIGITAL SCREENING MAMMOGRAM 3D/2D WITH CAD WITH MEDIOLATERAL OBLIQUE CRANIOCAUDAL: 07/29/2020 The study was acquired using digital technology and interpreted from soft copy. ?? Current study was also evaluated with ICAD version 7.2. 2D digital mammographic views, as well as 3D digital tomosynthesis were performed in the CC and MLO projections. ?? CLINICAL: Routine screening. Patient has no complaints. No personal history of cancer. No family history of breast cancer. Due to patient body habitus, additional images were taken in an effort to obtain adequate breast tissue. ?? COMPARISONS: Comparison is made to exams dated: ??12/29/2018, 08/25/2015, and 06/26/2013 [facility]. ?? BREAST TISSUE:There are scattered fibroglandular densities in both breasts. ?? FINDINGS: No significant masses, calcifications, or other findings are seen in either breast. ?? There has been no significant interval change. IMPRESSION: BI-RAD 1 ??NEGATIVE There is no mammographic evidence of malignancy. A 1 year screening mammogram is recommended. ?? The patient has been or will be contacted. ?? The patient will be entered into a reminder system with a target due date of 1 year for her next screening exam. Electronically signed by: Nael Alvarenga M.D. ? ll/penrad:07/30/2020 14:39:40 ?? Edger Tailer: Tara Dunn RT(R)(M), [facility] letter sent: Normal Exam ?? [place] location: [facility] BI-RADS: 1 Negative Procedure Note Nael Alvarenga MD - 07/30/2020 - KIMBERLY SCREENING BILATERAL DIGITAL W CAD W CHELSEA BILATERAL DIGITAL SCREENING MAMMOGRAM 3D/2D WITH CAD WITH MEDIOLATERAL OBLIQUE CRANIOCAUDAL: 07/29/2020 The study was acquired using digital technology and interpreted from soft copy. Current study was also evaluated with ICAD version 7.2. 2D digital mammographic views, as well as 3D digital tomosynthesis were performed in the CC and MLO projections. CLINICAL: Routine screening. Patient has no complaints. No personal history of cancer. No family history of breast cancer. Due to patient body habitus, additional images were taken in an effort to obtain adequate breast tissue. COMPARISONS: Comparison is made to exams dated: 12/29/2018, 08/25/2015, and 06/26/2013 [facility]. BREAST TISSUE:There are scattered fibroglandular densities in both breasts. FINDINGS: No significant masses, calcifications, or other findings are seen in either breast. There has been no significant interval change. IMPRESSION: BI-RAD 1 NEGATIVE There is no mammographic evidence of malignancy. A 1 year screening mammogram is recommended. The patient has been or will be contacted. The patient will be entered into a reminder system with a target due date of 1 year for her next screening exam. Electronically signed by: Nael frances/macario:07/30/2020 14:39:40 Edger Tailer: Tara Dunn RT(R)(M), [facility]: Normal Exam [place] location: [facility] BI-RADS: 1 Negative us Lili Conroy MD IMG MAMMO ORDERABLES Fin al Result documented in this encounter Visit Diagnoses Diagnosis Encounter for screening mammogram for malignant neoplasm of breast- Primary Other screening mammogram Encounter for screening mammogram for malignant neoplasm of breast Other screening mammogram documented in this encounter Care Teams Education Associate Relationship Specialty Start Date End Date Daja Kern MD [address] [place] [id number] PCP - General Internal Medicine 03/13/15 documented as of this encounter
--- OUTSIDE RECORDS SUMMARY | 2024-03-03 19:29 | XMS_ITS | Encounter Summary ---
Author Organization [facility] Address [address] [place] [address] Phone Care Team Providers Care Nuclear Physicist Name Role Phone Daja Kern MD Primary Care Provider [phone] Reason for Referral * Radiology Services (Routine) - Closed Specialty Diagnoses / Procedures Referred By Ladi aguilar Referred To Contact Radiology Diagnoses Encounter for screening mammogram for malignant neoplasm of breast Procedures KIMBERLY SCREENING BILATERAL DIGITAL W CAD W CHELSEA KIMBERLY SCREENING BILATERAL DIGITAL W CAD Lili Conroy MD Referral ID Status Reason Start Date Expiration Date Visits Re quested Visits Authorized [id number] Closed 07/10/2020 1 1 Reason for Visit * Radiology Services (Routine) - Closed Specialty Diagnoses / Procedures Referred By Ladi aguilar Referred To Contact Radiology Diagnoses Encounter for screening mammogram for malignant neoplasm of breast Procedures KIMBERLY SCREENING BILATERAL DIGITAL W CAD W CHELSEA KIMBERLY SCREENING BILATERAL DIGITAL W CAD Lili Conroy MD Referral ID Status Reason Start Date Expiration Date Visits Re quested Visits Authorized [id number] Closed 07/10/2020 1 1 Encounter Details Date Type Department Care Team (Latest Contact Info) Description 07/29/2020 1:17 PM CDT - 07/29/2020 11:59 PM CDT [facility] [address] [place] [address] Lili Conroy MD Discharge Disposition: Discharged to home or Selfcare [...] this encounter Medications at Time of Discharge levothyroxine (SYNTHROID) 50 MCG TabletIndication s:Hypothyroidism Take 50 mcg by mouth daily. Indications: Underactive Thyroid 06/18/2018 traZODone (DESYREL) 50 MG Tablet Take 100 mg by mouth nightly. Aripiprazole 20 MG Tablet Take 20 mg by mouth daily. 3 baclofen (LIORESAL) 20 MG Tablet Take 20 mg by mouth 2 times daily as needed. 3 buPROPion (WELLBUTRIN) 300 MG TABLET SR 24 HR XL tablet Take 300 mg by mouth every morning. 1 Cyanocobalamin (VITAMIN B-12 IJ) by Injection route. Vitamin B-12 injection one time/month. 1 diphenhydrAMINE (BENADRYL) 50 MG Capsule Take 50 mg by mouth nightly as needed. 2 famotidine (PEPCID) 20 MG Tablet Take 2 Tabs by mouth 2 times daily. 180 Tab 3 02/06/2019 1 IRON PO Take 1 Tab by mouth daily. 1 losartan (COZAAR) 100 MG Tablet Take 100 mg by mouth daily. 1 naproxen (NAPROSYN) 500 MG Tablet Take 500 mg by mouth 2 times daily as needed. 1 omeprazole (PriLOSEC) 40 MG CAPSULE DELAYED RELEASE TAKE 1 CAPSULE BY MOUTH ONCE DAILY 90 Capsule 3 05/07/2020 2 pravastatin (PRAVACHOL) 20 MG Tablet Take 20 mg by mouth daily. 1 sertraline (ZOLOFT) 100 MG Tablet Take 150 mg by mouth daily. Take 100mg by mouth daily 3 simvastatin (ZOCOR) 10 MG Tablet Take 10 mg by mouth every evening. 12/13/2018 2 triamterene-hydr ochlorothiazide (MAXZIDE) 37.5-25 MG Tablet Take 1 Tab by mouth daily. 2 VITAMIN D PO Take by mouth. 02/21/20 2 1 documented as of this encounter Plan of Treatment Upcoming Encounters Date Type Department Care Team (Late st Contact Info) Description 03/27/2024 8:30 AM ORTHOTIST [facility] [address] [place] [address] Burt Eastman MD [address] [address] 03/27/2024 8:30 AM ORTHOTIST - 03/27/2024 9:00 AM ORTHOTIST [facility] 1 [place] [address] Burt Eastman MD [address] [address] COLONOSCOPY 04/09/2024 1:15 PM ORTHOTIST Office Visit [facility] - Pulmonology & Sleep Medicine [facility] #2 [place] [address] Baron Vergara MD #2 [place] [address] Scheduled Procedures Name Priority Associated Diagnoses Date/Ti me COLONOSCOPY HISTORY OF COLON POLYPS 03/27/2024 8:30 AM ORTHOTIST documented as of this encounter Procedures Procedure Name Priority Date/Time Associated Diagnosis Comments [facility] SCREENING BILATERAL DIGITAL W CAD W CHELSEA Routine 07/29/2020 2:08 PM CDT Encounter for screening mammogram for malignant neoplasm of breast documented in this encounter Results * KIMBERLY SCREENING BILATERAL [...] to exams dated: ??12/29/2018, 08/25/2015, and 06/26/2013 [facility]. ?? BREAST TISSUE:There are scattered fibroglandular densities [...] Electronically signed by: Nael Alvarenga M.D. ? juan daniel/penrad:07/30/2020 14:39:40 ?? Prism Measurer: Tara Dunn RT(R)(M), [facility] letter sent: Normal Exam ?? Reading location: [place] BI-RADS: 1 Negative Procedure Note Nael Alvarenga [...] to exams dated: 12/29/2018, 08/25/2015, [facility] BREAST TISSUE:There are scattered fibroglandular densities in [...] exam. Electronically signed by: Nael frances/macario:07/30/2020 14:39:40 Prism Measurer: Tara Dunn RT(R)(M), [facility] letter sent: Normal Exam Reading location: [facility] BI-RADS: 1 Negative us Lili Conroy MD IMG MAMMO ORDERABLES Fin al Result documented in this encounter Visit Diagnoses Diagnosis Encounter for screening mammogram for malignant neoplasm of breast Other screening mammogram documented in this encounter Care Teams Nuclear Physicist Relationship Specialty Start Date End Date Daja Kern MD [address] [place] [address] PCP - General Internal Medicine 03/13/15 documented as of this encounter
--- OUTSIDE RECORDS SUMMARY | 2024-03-03 19:29 | XMS_ITS | Encounter Summary ---
Author Organization [facility] [employer] [facility] Care Team Providers Care Food Stand Manager Name Role Phone Daja Kern MD Primary Care Provider [phone] Encounter Details Date Type Department Care Team (Latest Contact Info) Description 04/30/2021 Travel Social History Tobacco Use Types Packs/Day [...] have Coronavirus / COVID-19? No / Unsure 04/30/2021 1:47 PM LIEUTENANT FIRE FIGHTER documented as of this encounter Plan of Treatment Upcoming Encounters Date Type Department Care Team (Late st Contact Info) Description 03/27/2024 8:30 AM LIEUTENANT FIRE FIGHTER [facility] 1 [place] [phone] Burt Eastman MD [address] [address] 03/27/2024 8:30 AM LIEUTENANT FIRE FIGHTER - 03/27/2024 9:00 AM LIEUTENANT FIRE FIGHTER [facility] 1 [place] [address] Burt Eastman MD [address] [address] COLONOSCOPY 04/09/2024 1:15 PM LIEUTENANT FIRE FIGHTER Office Visit [facility] - Pulmonology & Sleep Medicine [facility] #2 [place] [address] Baron Vergara MD [address]2 [place] [address] Scheduled Procedures Name Priority Associated Diagnoses Date/Ti me COLONOSCOPY HISTORY OF COLON POLYPS 03/27/2024 8:30 AM LIEUTENANT FIRE FIGHTER documented as of this encounter Visit Diagnoses Not on filedocumented in this encounter Care Teams Food Stand Manager Relationship Specialty Start Date End Date Daja Kern MD [address] [place] [address] PCP - General Internal Medicine 03/13/15 documented as of this encounter
--- OUTSIDE RECORDS SUMMARY | 2024-03-03 19:29 | XMS_ITS | Encounter Summary ---
Author Organization [facility] [employer] [facility] Care Team Providers Care Whiskey Filterer Name Role Phone Daja Kern MD Primary Care Provider [phone] Encounter Details Date Type Department Care Team (Latest Contact Info) Description 11/03/2020 Travel Social History Tobacco Use Types Packs/Day [...] have Coronavirus / COVID-19? No / Unsure 11/03/2020 12:59 PM CDT documented as of this encounter Plan of Treatment Upcoming Encounters Date Type Department Care Team (Late st Contact Info) Description 03/27/2024 8:30 AM GUEST SERVICES [facility] 1 [place] [address] Burt Eastman MD [address] [address] 03/27/2024 8:30 AM GUEST SERVICES - 03/27/2024 9:00 AM GUEST SERVICES [facility] 1 [place] [address] Burt Eastman MD [address] [address] COLONOSCOPY 04/09/2024 1:15 PM GUEST SERVICES Office Visit [facility] - Pulmonology & Sleep Medicine [facility] [address] [place] [address] Baron Vergara MD [address]2 [place] [address] Scheduled Procedures Name Priority Associated Diagnoses Date/Ti me COLONOSCOPY HISTORY OF COLON POLYPS 03/27/2024 8:30 AM GUEST SERVICES documented as of this encounter Visit Diagnoses Not on filedocumented in this encounter Care Teams Whiskey Filterer Relationship Specialty Start Date End Date Daja Kern MD [address] [place] [address] PCP - General Internal Medicine 03/13/15 documented as of this encounter
--- OUTSIDE RECORDS SUMMARY | 2024-03-03 19:29 | XMS_ITS | Encounter Summary ---
Author Organization [facility] Address [address] [place] [address] Phone Care Team Providers Care Glass Beveler Name Role Phone Daja Kern MD Primary Care Provider [phone] Reason for Visit * Reason Comments Hypertension Encounter Details Date Type Department Care Team (Late st Contact Info) Description 12/31/2020 2:43 PM CDT - 12/31/2020 2:51 PM CDT Emergency [facility] Emergency 1 [place] [address] Discharge Disposition: LWBS Social History [...] have Coronavirus / COVID-19? No / Unsure 12/31/2020 2:45 PM CDT documented as of this encounter Last Filed Vital Signs Vital Sign Reading Time Taken Comments Blood Pressure 159/98 12/31/2020 2:46 PM CDT Pulse 120 12/31/2020 2:46 PM CDT Temperature 36.2 ??C (97.2 ??F) 12/31/2020 2:46 PM CD T Respiratory Rate 18 12/31/2020 2:46 PM CDT Oxygen Saturation 98% 12/31/2020 2:46 PM CDT Inhaled Oxygen Concentration - - Weight 120.2 kg (265 lb) 12/31/2020 2:46 PM CDT Height 157.5 cm (5' 2 ) 12/31/2020 2:46 PM CDT Body Mass Index 48.47 12/31/2020 2:46 PM CDT documented in this encounter Medications [...] 2 1 documented as of this encounter ED Notes * Dhara Smith RN - 12/31/2020 2:48 PM CDT Patient to triage after being sent by doctor at pain management. Patient states that they had a high blood pressure reading at the office and sent her to the ED. BP at this time is 159/98. After finding out her BP in triage, patient states that she is going to go. Denies having symptoms at this time. States she took her BP medication today and takes it regularly. documented in this encounter Plan of Treatment Upcoming Encounters Date Type Department Care Team (Late st Contact Info) Description 03/27/2024 8:30 AM WIRE TEMPERER [facility] 1 [place] [address] Burt Eastman MD [address] [address] 03/27/2024 8:30 AM WIRE TEMPERER - 03/27/2024 9:00 AM WIRE TEMPERER [facility] 1 [place] [address] Burt Eastman MD [address] [address] COLONOSCOPY 04/09/2024 1:15 PM WIRE TEMPERER [facility] & [facility] - [place] #2 [place] [address] Baron Vergara MD #[address] [place] [address] Scheduled Procedures Name Priority Associated Diagnoses Date/Ti me COLONOSCOPY HISTORY OF COLON POLYPS 03/27/2024 8:30 AM WIRE TEMPERER documented as of this encounter Visit Diagnoses Not on filedocumented in this encounter Care Teams Glass Beveler Relationship Specialty Start Date End Date Daja Kern MD [address] [place] [address] PCP - General Internal Medicine 03/13/15 documented as of this encounter
--- OUTSIDE RECORDS SUMMARY | 2024-03-03 19:29 | XMS_ITS | Encounter Summary ---
Author Organization [facility] Address [address] [place] [address] Phone Care Team Providers Care Ammonia Technician Name Role Phone Daja Kern MD Primary Care Provider [phone] Reason for Visit * Reason Comments Ear Pain Encounter Details Date Type Department Care Team (Late st Contact Info) Description 04/30/2021 1:50 PM GARAGE SUPERVISOR - 04/30/2021 2:14 PM GARAGE SUPERVISOR Emergency [facility] Emergency 1 [place] [address] Timoteo Link MD TMJ arthralgia Discharge Disposition: Discharged to home or Selfcare [...] COVID-19? No / Unsure 04/30/2021 1:47 PM GARAGE SUPERVISOR documented as of this encounter Last Filed Vital Signs Vital Sign Reading Time Taken Comments Blood Pressure 169/94 04/30/2021 1:48 PM GARAGE SUPERVISOR Pulse 92 04/30/2021 1:48 PM GARAGE SUPERVISOR Temperature 35.8 ??C (96.5 ??F) 04/30/2021 1:48 PM CS T Respiratory Rate 20 04/30/2021 1:48 PM GARAGE SUPERVISOR Oxygen Saturation 99% 04/30/2021 1:48 PM GARAGE SUPERVISOR Inhaled Oxygen Concentration - - Weight 115.7 kg (255 lb) 04/30/2021 1:48 PM GARAGE SUPERVISOR Height 157.5 cm (5' 2 ) 04/30/2021 1:48 PM GARAGE SUPERVISOR Body Mass Index 46.64 04/30/2021 1:48 PM GARAGE SUPERVISOR documented in this encounter Discharge Instructions * Attachments The following attachments cannot be sent through Care Everywhere. * Temporomandibular Joint Syndrome ([place]) documented in this encounter Medications at Time [...] HR Take by mouth daily. 01/31/2021 2 omeprazole (PriLOSEC) 40 MG CAPSULE DELAYED RELEASE TAKE 1 CAPSULE BY MOUTH ONCE DAILY 90 Capsule 3 05/07/2020 2 pregabalin (LYRICA) 75 MG Capsule Take 75 mg by mouth 2 times daily. 3 sertraline (ZOLOFT) 100 MG Tablet Take 150 mg by mouth daily. Take 100mg by mouth daily 3 simvastatin (ZOCOR) 10 MG Tablet Take 10 mg by mouth every evening. 12/13/2018 2 triamterene-hydr ochlorothiazide (MAXZIDE) 37.5-25 MG Tablet Take 1 Tab by mouth daily. 2 documented as of this encounter ED Notes * Jay Martinez RN - 04/30/2021 2:14 PM CST Patient discharged. Discharge instructions and patient educational material reviewed with patient; questions and concerns addressed; patient verbalizes understanding, using teach back. Patient was given 1 prescriptions. Patient was informed no drinking alcohol, driving or operating heavy machinery while taking narcotics or muscle relaxants. Patient discharged per ambulatory mode with self as responsible constitution party. GE SUPERVISOR * Timoteo Link MD - 04/30/2021 1:59 PM CST Chief Complaint Patient presents with ??? Ear Pain The patient is a 50-year-old female presents the emergency room with complaints of right ear discomfort for the past week. She states the pain is worsened when she opens her mouth. She denies any change in hearing or dizziness. Manipulation of the external ear structures not resultant discomfort. The pain is most pronounced in palpation near the angle of the jaw on the right. Patient has no mandibular molars on the right. She does have a history of TMJ dysfunction. She has been experiencing clicking and popping on opening her jaw. She denies fevers or chills. She has had nasal stuffiness and nasal drainage as well as frequent cough. Cough has been nonproductive. No current facility-administered medications for this encounter. [...] BY MOUTH ONCE DAILY 90 Capsule 3 ??? pregabalin (LYRICA) 75 MG Capsule Take [...] [facility] (Does not remember the DRKyung) ??? COLONOSCOPY N/A 11/16/2018 Procedure: COLONOSCOPY - POLYPS, BIOPSIES; Surgeon: Damian Gallardo DO; Location: [facility] GI [facility]; Service: Gastroenterology ??? EGD 2012? [facility] ??? UPPER GASTROINTESTINAL ENDOSCOPY N/A 02/06/2019 Procedure: EGD, SMALL BOWEL BIOSY, GASTRIC POLYP, SAMANTHA TEST; Surgeon: Damian Gallardo DO; Location: [facility] GI [facility]; Service: Gastroenterology ??? [...] Narrative ??? Not on file BP (!) 169/94 Pulse 92 Temp 96.5 ??F (35.8 ??C) (Tympanic) Resp 20 Ht 5' 2 (1.575 m) Wt 255 lb (115.7 kg) LMP 11/12/2019 SpO2 99% BMI 46.64 kg/m?? Review of Systems Constitutional: Negative. HENT: Positive for ear pain and postnasal drip. Negative for facial swelling and hearing loss. Respiratory: Positive for cough. Cardiovascular: Negative. Gastrointestinal: Negative. All other systems reviewed and are negative. Physical Exam Vitals and nursing note reviewed. Constitutional: General: She is not in acute distress. Appearance: Normal appearance. HENT: Head: Normocephalic and atraumatic. Right Ear: Tympanic membrane, ear canal and external ear normal. Left Ear: Tympanic membrane, ear canal and external ear normal. Mouth/Throat: Mouth: Mucous membranes are moist. Pharynx: Oropharynx is clear. Eyes: Extraocular Movements: Extraocular movements intact. Conjunctiva/sclera: Conjunctivae normal. Pupils: Pupils are equal, round, and reactive to light. Cardiovascular: Rate and Rhythm: Normal rate and regular rhythm. Heart sounds: Normal heart sounds. No murmur heard. Pulmonary: Effort: No respiratory distress. Breath sounds: Normal breath sounds. No wheezing or rales. Abdominal: Tenderness: There is no abdominal tenderness. Comments: Body mass index is 46.64 kg/m??. Musculoskeletal: General: Normal range of motion. Cervical back: Normal range of motion and neck supple. Right lower leg: No edema. Left lower leg: No edema. Skin: General: Skin is warm and dry. Neurological: General: No focal deficit present. Mental Status: She is alert and oriented to person, place, and time. Psychiatric: Mood and Affect: Mood normal. Behavior: Behavior normal. Procedures Imaging Results None Labs Reviewed - No data to display MDM Coding Clinical Impression 1. TMJ arthralgia 2. Earache on right The patient remained stable throughout their ED stay. My clinical impression was discussed with thepatient. I gave her the opportunity to ask questions, and addressed them as completely as possible given the information available at present. The therapeutic plan was discussed, instructions were given and the importance of primary care follow up was stressed and encouraged. The patient voiced understanding of the plan, indications to return, and the need for follow up. GE SUPERVISOR * Pari Delgado RN - 04/30/2021 1:49 PM CST Patient aqrrives to ed with right ear pain for one week. Denies injury. Denies drainage. GE SUPERVISOR documented in this encounter Plan of Treatment Upcoming Encounters Date Type Department Care Team (Late st Contact Info) Description 03/27/2024 8:30 AM GARAGE SUPERVISOR Hospital Encounter [facility] Gi Lab Periop 1 [place] [address] Burt Eastman MD [address] [address] 03/27/2024 8:30 AM GARAGE SUPERVISOR - 03/27/2024 9:00 AM GARAGE SUPERVISOR [facility] 1 [place] [address] Burt Eastman MD [address] [address] COLONOSCOPY 04/09/2024 1:15 PM GARAGE SUPERVISOR Office Visit [facility] - Pulmonology & Sleep Medicine [facility] #2 [place] [address] Baron Vergara MD #2 [place] [address] Scheduled Procedures Name Priority Associated Diagnoses Date/Ti me COLONOSCOPY HISTORY OF COLON POLYPS 03/27/2024 8:30 AM GARAGE SUPERVISOR documented as of this encounter Visit Diagnoses Diagnosis TMJ arthralgia- Primary Arthralgia of temporomandibular joint Earache on right Otalgia, unspecified documented in this encounter Care Teams Ammonia Technician Relationship Specialty Start Date End Date Daja Kern MD [address] [place], [place] [phone] PCP - General Internal Medicine 03/13/15 documented as of this encounter
--- OUTSIDE RECORDS SUMMARY | 2024-03-03 19:29 | XMS_ITS ---
Author Organization [facility] Address #1 [place] [address] Phone Care Team Providers Care Operations Director Name Role Phone Daja Kern MD Primary Care Provider [phone] Baron Vergara MD Unavailable Ambulatory Transitions of Care Status:Closed (Closed) Start date:05/22/2023 Enrollment date:05/24/2023 End date:05/30/2023 Close reason:Not eligible Related social drivers of health:Intimate Partner Violence, Social Connections, Alcohol Use, Financial Resource Strain, Depression, Stress, Physical Activity, Food Insecurity, Transportation Needs, Housing Stability, Utilities Continued Care and Services Coordination
--- OUTSIDE RECORDS SUMMARY | 2024-03-03 19:29 | XMS_ITS | Encounter Summary ---
Author Organization [facility] Address [address] [place] [address] Phone Care Team Providers Care Lead Sql Developer Name Role Phone Daja Kern MD Primary Care Provider [phone] Encounter Details Date Type Department Care Team (Late st Contact Info) Description 03/26/2019 Telephone [facility] #2 [place] [phone] Damian Gallardo, DO [address] [address] Social History Tobacco Use Types Packs/Day Years [...] * Telephone Encounter - Hanna Chao - 04/01/2019 8:54 AM CST Famotidine prior auth was denied, Pts chart notes listed a failure to a higher strength famotidine 40 MG 2 per day. Denial will be scanned into media. R COVERING PRINTER * Telephone Encounter - Hanna Chao - 03/28/2019 8:34 AM CST Cover my meds requested records, Sent in. R COVERING PRINTER * Telephone Encounter - Hanna Chao - 03/26/2019 3:52 PM CST Prior auth sent through cover my meds for famotidine. R COVERING PRINTER documented in this encounter Plan of Treatment Upcoming Encounters Date Type Department Care Team (Late st Contact Info) Description 03/27/2024 8:30 AM FLOOR COVERING PRINTER [facility] 1 [place] [address] Burt Eastman MD [address] [address] 03/27/2024 8:30 AM FLOOR COVERING PRINTER - 03/27/2024 9:00 AM FLOOR COVERING PRINTER [facility] Per[facility] 1 [place] [address] Burt Eastman MD [address] [address] COLONOSCOPY 04/09/2024 1:15 PM FLOOR COVERING PRINTER [facility] - [place] #2 [place] [phone] Baron Vergara MD #2 [place] [address] Scheduled Procedures Name Priority Associated Diagnoses Date/Ti me COLONOSCOPY HISTORY OF COLON POLYPS 03/27/2024 8:30 AM FLOOR COVERING PRINTER documented as of this encounter Visit Diagnoses Not on filedocumented in this encounter Care Teams Lead Sql Developer Relationship Specialty Start Date End Date Daja Kern MD [address] [facility] [address] [place] [address] PCP - General Internal Medicine 03/13/15 documented as of this encounter
--- OUTSIDE RECORDS SUMMARY | 2024-03-03 19:29 | XMS_ITS | Encounter Summary ---
Author Organization [facility] [employer] [facility] Care Team Providers Care Machinist Wood Name Role Phone Daja Kern MD Primary Care Provider [phone] Encounter Details Date Type Department Care Team (Latest Contact Info) Description 12/31/2020 Travel Social History Tobacco Use Types Packs/Day [...] Contact Info) Description 03/27/2024 8:30 AM AUTOMOTIVE VEHICLE INSPECTOR [facility] 1 [place] [address] Burt Eastman MD [address] [address] 03/27/2024 8:30 AM AUTOMOTIVE VEHICLE INSPECTOR - 03/27/2024 9:00 AM AUTOMOTIVE VEHICLE INSPECTOR [facility] 1 [place] [address] Burt Eastman MD [address] [address] COLONOSCOPY 04/09/2024 1:15 PM AUTOMOTIVE VEHICLE INSPECTOR Office Visit [facility] - Pulmonology & Sleep Medicine [facility] #2 [place] [address] Baron Vergara MD #2 [place] [address] Scheduled Procedures Name Priority Associated Diagnoses Date/Ti me COLONOSCOPY HISTORY OF COLON POLYPS 03/27/2024 8:30 AM AUTOMOTIVE VEHICLE INSPECTOR documented as of this encounter Visit Diagnoses Not on filedocumented in this encounter Care Teams Machinist Wood Relationship Specialty Start Date End Date Daja Kern MD [address] [place] [address] PCP - General Internal Medicine 03/13/15 documented as of this encounter
--- OUTSIDE RECORDS SUMMARY | 2024-03-03 19:29 | XMS_ITS | Encounter Summary ---
Author Organization [facility] Address [address] [place] [address] Phone Care Team Providers Care Vitreo Retinal Surgeon Name Role Phone Daja Kern MD Primary Care Provider [phone] Reason for Visit * Reason Comments Hip Pain Encounter Details Date Type Department Care Team ([facility] Contact Info) Description 01/14/2020 12:02 PM DEALER COMPLIANCE REPRESENTATIVE - 01/14/2020 1:26 PM DEALER COMPLIANCE REPRESENTATIVE Emergency [facility] Emergency [address] [place] [address] Mathew Batres, PAC [address] [place] [address] Left hip pain Discharge Disposition: Discharged to home or [...] have Coronavirus / COVID-19? No / Unsure 01/14/2020 12:06 PM DEALER COMPLIANCE REPRESENTATIVE documented as of this encounter Last Filed Vital Signs Vital Sign Reading Time Taken Comments Blood Pressure 103/78 01/14/2020 1:25 PM DEALER COMPLIANCE REPRESENTATIVE Pulse 90 01/14/2020 1:25 PM DEALER COMPLIANCE REPRESENTATIVE Temperature 36.5 ??C (97.7 ??F) 01/14/2020 12:[address] Respiratory Rate 20 01/14/2020 12:10 PM DEALER COMPLIANCE REPRESENTATIVE Oxygen Saturation 97% 01/14/2020 12:30 PM DEALER COMPLIANCE REPRESENTATIVE Inhaled Oxygen Concentration - - Weight 111.1 kg (245 lb) 01/14/2020 12:10 PM DEALER COMPLIANCE REPRESENTATIVE Height 157.5 cm (5' 2 ) 01/14/2020 12:10 PM DEALER COMPLIANCE REPRESENTATIVE Body Mass Index 44.81 01/14/2020 12:10 PM DEALER COMPLIANCE REPRESENTATIVE documented in this encounter Medications at Time [...] 2 times daily as needed. 1 omeprazole (PRILOSEC) 40 MG CAPSULE DELAYED RELEASE Take 1 Cap by mouth daily. 90 Cap 3 02/06/2019 1 pravastatin (PRAVACHOL) 20 MG Tablet Take 20 mg by mouth daily. 1 predniSONE (DELTASONE) 20 MG Tablet Take 1 Tab by mouth 2 times daily for 5 days. 10 Tab 01/14/2020 0 sertraline (ZOLOFT) 100 MG Tablet Take 150 mg by mouth daily. Take 100mg by mouth daily 3 simvastatin (ZOCOR) 10 MG Tablet Take 10 mg by mouth every evening. 12/13/2018 2 triamterene-hydr ochlorothiazide (MAXZIDE) 37.5-25 MG Tablet Take 1 Tab by mouth daily. 2 VITAMIN D PO Take by mouth. 02/21/20 2 1 documented as of this encounter ED Notes * Blake Holcomb RN - 01/14/2020 1:26 PM CST Patient discharged. Discharge instructions and patient educational material reviewed with patient; questions and concerns addressed; patient verbalizes understanding, using teach back. Patient was given 1 prescriptions. Patient discharged per ambulatory mode with self as responsible republican. ER COMPLIANCE REPRESENTATIVE * Blake Holcomb RN - 01/14/2020 1:21 PM CST Pt medicated per provider orders. Pt educated on intended effects and side effects of medication and verbalized understanding, able to provide teach back of education. ER COMPLIANCE REPRESENTATIVE * Blake Holcomb RN - 01/14/2020 12:57 PM CST PT to XRAY ER COMPLIANCE REPRESENTATIVE * Mathew Batres PAC - 01/14/2020 12:25 PM CST Chief Complaint Patient presents with ??? Hip Pain Alona Kemp is a 49 y.o. female who presents to the ED c/o left hip pain x 1 month. Patient denies injury. Treating with ultram from PCP without relief. History of lumbar and thoracic DDD and believes this is the cause of her left hip pain. Patient states she use crack cocaine last evening to relieve left hip pain. Past Medical History Positives No date: Adenomatous [...] use cpap 09/2018: SBO (small bowel obstruction) ([facility]) No date: Vitamin D deficiency No current facility-administered medications for this encounter. Current Outpatient Medications Medication Sig Dispense Refill ??? Aripiprazole 20 MG Tablet Take 20 mg by mouth daily. ??? baclofen (LIORESAL) 20 MG Tablet Take 20 mg by mouth 2 times daily as needed. ??? buPROPion (WELLBUTRIN) 300 MG TABLET SR 24 HR XL tablet Take 300 mg by mouth every morning. ??? Cyanocobalamin (VITAMIN B-12 IJ) by Injection route. Vitamin B-12 injection one time/month. ??? diphenhydrAMINE (BENADRYL) 50 MG Capsule Take 50 mg by mouth nightly as needed. ??? famotidine (PEPCID) 20 MG Tablet Take 2 Tabs by mouth 2 times daily. 180 Tab 3 ??? IRON PO Take 1 Tab by mouth daily. ??? levothyroxine (SYNTHROID) 50 MCG Tablet Take 50 mcg by mouth daily. Indications: Underactive Thyroid ??? losartan (COZAAR) 100 MG Tablet Take 100 mg by mouth daily. ??? naproxen (NAPROSYN) 500 MG Tablet Take 500 mg by mouth 2 times daily as needed. ??? omeprazole (PRILOSEC) 40 MG CAPSULE DELAYED RELEASE Take 1 Cap by mouth daily. 90 Cap 3 ??? pravastatin (PRAVACHOL) 20 MG Tablet Take 20 mg by mouth daily. ??? predniSONE (DELTASONE) 20 MG Tablet Take 1 Tab by mouth 2 times daily for 5 days. 10 Tab 0 ??? sertraline (ZOLOFT) 100 MG Tablet Take 150 mg by mouth daily. ??? simvastatin (ZOCOR) 10 MG Tablet Take 10 mg by mouth every evening. ??? traZODone (DESYREL) 50 MG Tablet Take 100 mg by mouth nightly. ??? triamterene-hydrochlorothiazide (MAXZIDE) 37.5-25 MG Tablet Take 1 Tab by mouth daily. ??? VITAMIN D PO Take by mouth. Allergies Allergen Reactions ??? Geodon [Ziprasidone Hcl] [...] ??? SBO (small bowel obstruction) ([facility]) 09/2018 ??? Vitamin D deficiency Past Surgical History: Procedure Laterality Date ??? SECTION 1994 ??? CHOLECYSTECTOMY 2005 laparoscopic ??? COLONOSCOPY [facility] (Does not remember the ) ??? COLONOSCOPY N/A 11/16/2018 Procedure: COLONOSCOPY - POLYPS, BIOPSIES; Surgeon: Dmaian Gallardo DO; Location: [facility]; Service: Gastroenterology ??? EGD 2012? [facility] ??? UPPER GASTROINTESTINAL ENDOSCOPY N/A 02/06/2019 Procedure: EGD, SMALL BOWEL BIOSY, GASTRIC POLYP, SAMANTHA TEST; Surgeon: Damian Gallardo DO; Location:[facility]; Service: Gastroenterology ??? WISDOM TOOTH EXTRACTION 1992 4 wisdom teeth removed. Social History Socioeconomic History ??? Marital status: Spouse name: Not on file ??? Number of children: Not on file ??? Years of education: Not on file ??? Highest education level: Not on file Occupational History ??? Not on file Social Needs ??? Financial resource strain: Not on file ??? Food insecurity Worry: Not on file Inability: Not on file ??? Transportation needs Medical: Not on file Non-medical: Not on file Tobacco Use ??? Smoking status: Never Smoker ??? Smokeless tobacco: Never Used Substance and Sexual Activity ??? Alcohol use: No ??? Drug use: Yes Types: Cocaine ??? Sexual activity: Not Currently Partners: Male Lifestyle ??? Physical activity Days per week: Not on file Minutes per session: Not on file ??? Stress: Not on file Relationships ??? Social connections Talks on phone: Not on file Gets together: Not on file Attends pentecostalism service: Not on file Active member of club or organization: Not on file Attends meetings of clubs or organizations: Not on file Relationship status: Not on file ??? Intimate partner violence Fear of current or ex partner: Not on file Emotionally abused: Not on file Physically abused: Not on file Forced sexual activity: Not on file Other Topics Concern ??? Not on file Social History Narrative ??? Not on file BP 103/76 Pulse 98 Temp 97.7 ??F (36.5 ??C) (Tympanic) Resp 20 Ht 5' 2 (1.575 m) Wt 245 lb (111.1 kg) LMP 11/12/2019 SpO2 97% BMI 44.81 kg/m?? Review of Systems Constitutional: Negative for chills, fatigue and fever. HENT: Negative for congestion and sore throat. Respiratory: Negative for cough, chest tightness, shortness of breath and wheezing. Cardiovascular: Negative for chest pain and palpitations. Gastrointestinal: Negative for abdominal pain, constipation, diarrhea, nausea and vomiting. Genitourinary: Negative for dysuria, frequency, hematuria and urgency. Musculoskeletal: Positive for arthralgias (left hip) and back pain. Skin: Negative for color change and wound. Neurological: Negative for dizziness, light-headedness and headaches. All other systems reviewed and are negative. Physical Exam Vitals signs and nursing note reviewed. Constitutional: General: She is not in acute distress. Appearance: She is well-developed. She is obese. She is not diaphoretic. HENT: Head: Normocephalic and atraumatic. Eyes: Pupils: Pupils are equal, round, and reactive to light. Neck: Musculoskeletal: Normal range of motion and neck supple. Thyroid: No thyromegaly. Cardiovascular: Rate and Rhythm: Normal rate and regular rhythm. Heart sounds: Normal heart sounds. No murmur. Pulmonary: Effort: Pulmonary effort is normal. No respiratory distress. Breath sounds: Normal breath sounds. No wheezing, rhonchi or rales. Chest: Chest wall: No tenderness. Abdominal: General: Bowel sounds are normal. There is no distension. Palpations: Abdomen is soft. There is no mass. Tenderness: There is no abdominal tenderness. There is no guarding or rebound. Musculoskeletal: General: Tenderness present. Left hip: She exhibits decreased range of motion, tenderness and bony tenderness. She exhibits no deformity. Skin: General: Skin is warm and dry. Coloration: Skin is not pale. Findings: No erythema or rash. Neurological: Mental Status: She is alert and oriented to person, place, and time. Cranial Nerves: No cranial nerve deficit. Psychiatric: Behavior: Behavior normal. XR HIP 2 VIEWS UNILATERAL LEFT Final Result IMPRESSION: 1. No acute fracture. 2. 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 Procedures Imaging Results XR HIP 2 VIEWS UNILATERAL LEFT (Final result) Result time 01/14/20 13:14:01 Procedure changed from XR HIP 2 VIEWS UNILATERAL RIGHT Final result by Lavelle Sanchez MD (01/14/20 13:14:01) Impression: IMPRESSION: 1. No acute fracture. 2. 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 Narrative: EXAM DESCRIPTION: XR HIP 2 VIEWS UNILATERAL LEFT REASON FOR STUDY: Left hip pain over the past month, worsening over the past 2-3 days. No recent injury. TECHNIQUE: AP and frog-leg/cross-table lateral view of the left hip. COMPARISON: No prior. FINDINGS: BONES/JOINTS: Normal mineralization. No acute fracture or dislocation. 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 Joint spaces are maintained. SOFT TISSUES: Unremarkable. OTHER: No other significant finding. THIS IS AN ELECTRONICALLY VERIFIED FINAL REPORT 01/14/2020 1:11 PM - Electronically signed by Lavelle Sanchez M.D. MJ: JAMES Report ID: [id number] Reading Location: [id number] XR HIP 2 VIEWS UNILATERAL RIGHT (Canceled) MDM Coding Clinical Impression 1. Left hip pain Given patient's admitted recreational drug use, I did not prescribe controlled substances. She willbe continued on oral steroid with instructions to follow up with PCP in 2-3 days. The patient remained stable throughout their ED [...] the need for follow up. Cosigned by Jadiel Longoria MD at 01/15/2020 5:58 AM DEALER COMPLIANCE REPRESENTATIVE ER COMPLIANCE REPRESENTATIVE ER COMPLIANCE REPRESENTATIVE * Niru Duarte RN - 01/14/2020 12:09 PM CST Patient presents to ED room 5B via [facility] from home with complaints of left hip pain onset 1 monthago becoming worse the past few days. Denies any known injuries. Given Tramadol by PCP in which patient states did not help with pain. Admits to using crack cocaine yesterday. ER COMPLIANCE REPRESENTATIVE * Snehal Rueda - 01/14/2020 12:02 PM CST Bed: [place] [id number] Expected date: 01/14/20 Expected time: 12:01 PM Means of arrival: Ambulance ([facility]) Comments: [facility] ER COMPLIANCE REPRESENTATIVE documented in this encounter Plan of Treatment Upcoming Encounters Date Type Department Care Team (Late st Contact Info) Description 03/27/2024 8:30 AM DEALER COMPLIANCE REPRESENTATIVE Hospital Encounter [facility] Periop [address] [place] [address] Burt Eastman MD [address] [address] 03/27/2024 8:30 AM DEALER COMPLIANCE REPRESENTATIVE - 03/27/2024 9:00 AM DEALER COMPLIANCE REPRESENTATIVE Surgery [facility]iop [address] [place] [address] Burt Eastman MD [address] [address] COLONOSCOPY 04/09/2024 1:15 PM DEALER COMPLIANCE REPRESENTATIVE Office Visit [facility] - Pulmonology & Sleep Medicine [facility] [address] [place] [address] Baron Vergara MD [address] [place] [address] Scheduled Procedures Name Priority Associated Diagnoses Date/Ti me COLONOSCOPY HISTORY OF COLON POLYPS 03/27/2024 8:30 AM DEALER COMPLIANCE REPRESENTATIVE documented as of this encounter Procedures Procedure Name Priority Date/Time Associated Diagnosis Comments XR HIP 2 VIEWS UNILATERAL LEFT STAT 01/14/2020 1:02 PM DEALER COMPLIANCE REPRESENTATIVE POCT URINE HCG () STAT 01/14/2020 12:38 PM DEALER COMPLIANCE REPRESENTATIVE documented in this encounter Results * XR HIP 2 VIEWS UNILATERAL LEFT (01/14/2020 1:02 PM DEALER COMPLIANCE REPRESENTATIVE) Anatomical Region Laterality Modality LOWER EXTREMITY, hip Left Digital Rad iography 01/14/2020 1:11 PM DEALER COMPLIANCE REPRESENTATIVE Impressions 01/14/2020 1:14 PM DEALER COMPLIANCE REPRESENTATIVE IMPRESSION: ?? 1. ??No acute fracture. 2. 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 Narrative 01/14/2020 1:14 PM DEALER COMPLIANCE REPRESENTATIVE EXAM DESCRIPTION: ?? XR HIP 2 VIEWS UNILATERAL LEFT REASON FOR STUDY: ?? Left hip pain over the past month, worsening over the past 2-3 days. ??No recent injury. TECHNIQUE: ?? AP and frog-leg/cross-table lateral view of the left hip. COMPARISON: ?? No prior. FINDINGS: ??BONES/JOINTS: ??Normal mineralization. ??No acute fracture or dislocation. 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 ??Joint spaces are maintained. SOFT TISSUES: ??Unremarkable. OTHER: ??No other significant finding. THIS IS AN ELECTRONICALLY VERIFIED FINAL REPORT 01/14/2020 1:11 PM - Electronically signed by Lavelle RAMIREZ: JAMES D: ??01/14/2020 1:11 PM T: ??01/14/2020 1:11 PM Report ID: [id number] Reading Location: ??[id number] Procedure Note Lavelle Sanchez MD - 01/14/2020 EXAM DESCRIPTION: XR HIP 2 VIEWS UNILATERAL LEFT REASON FOR STUDY: Left hip pain over the past month, worsening over the past 2-3 days. No recent injury. TECHNIQUE: AP and frog-leg/cross-table lateral view of the left hip. COMPARISON: No prior. FINDINGS: BONES/JOINTS: Normal mineralization. No acute fracture or dislocation. 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 Joint spaces are maintained. SOFT TISSUES: Unremarkable. OTHER: No other significant finding. THIS IS AN ELECTRONICALLY VERIFIED FINAL REPORT 01/14/2020 1:11 PM - Electronically signed by Lavelle RAMIREZ: JAMES Report ID: [id number] Reading Location: [id number] IMPRESSION: 1. No acute fracture. 2. 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 Mathew Batres [facility] IMG DIAGNOSTIC ORDER ARMANDO Final Result * POCT Urine HCG () (01/14/2020 12:38 PM DEALER COMPLIANCE REPRESENTATIVE) POC URINE Negative POC URINE CONTROL Climatologist Pass Urine 01/14/2020 12:3 8 PM DEALER COMPLIANCE REPRESENTATIVE Mathew Valderrama Gisel PAC POINT OF CARE TESTIN G (MANUAL) Final Result documented in this encounter Visit Diagnoses Diagnosis Left hip pain- Primary Pain in joint, pelvic region and thigh documented in this encounter Administered Medications Inactive Administered Medications - up to 3 most recent administrations Medication Order MAR Action Action Date Dose Rate Site methylPREDNISolone sodium succinate (Solu-MEDROL) injection 60 mg 60 mg, Intramuscular, ONCE, 1 dose, On e 01/14/20 at 1330 Given 01/14/2020 1:18 PM DEALER COMPLIANCE REPRESENTATIVE 60 mg Left Deltoid naproxen (NAPROSYN) tablet 500 mg 500 mg, Oral, ONCE, 1 dose, On 01/14/20 at 1330 Given 01/14/2020 1:18 PM DEALER COMPLIANCE REPRESENTATIVE 500 mg documented in this encounter Active and Recently Administered Medications Times are shown in DEALER COMPLIANCE REPRESENTATIVE. Scheduled Medication Order 01/12/2020 01/13/2020 01/14/2020 methylPREDNISolone sodium succinate (Solu-MEDROL) injection 60 mg (COMPLETED) 60 mg, Intramuscular, ONCE, 1 dose, On Mon01/14/20 at 1330 1318 (Given - Provid er: Blake Holcomb RN) naproxen (NAPROSYN) tablet 500 mg (COMPLETED) 500 mg, Oral, ONCE, 1 dose, On Mon01/14/20 at 1330 1318 (Given - Provid er: Blake Holcomb RN) documented in this encounter Care Teams Vitreo Retinal Surgeon Relationship Specialty Start Date End Date Daja Kern MD [address] [place] [address] PCP - General Internal Medicine 03/13/15 documented as of this encounter
--- OUTSIDE RECORDS SUMMARY | 2024-03-03 19:29 | XMS_ITS | Encounter Summary ---
Author Organization [facility] Care Team Providers Care Outsole Leveler Name Role Phone Daja Kern MD Primary Care Provider [phone] Encounter Details Date Type Department Care Team (Latest Contact Info) Description 01/14/2020 Travel Social History Tobacco Use Types Packs/Day [...] COVID-19? No / Unsure 01/14/2020 12:06 PM WHITE SIDEWALL TIRE BUFFER documented as of this encounter Plan of Treatment Upcoming Encounters Date Type Department Care Team (Late st Contact Info) Description 03/27/2024 8:30 AM WHITE SIDEWALL TIRE BUFFER Hospital [facility] [address] [place] [phone] Burt Eastman MD 2 [facility] [address] [address] 03/27/2024 8:30 AM WHITE SIDEWALL TIRE BUFFER - 03/27/2024 9:00 AM WHITE SIDEWALL TIRE BUFFER [facility] [address] [place] [address] Burt Eastman MD [address] [address] COLONOSCOPY 04/09/2024 1:15 PM WHITE SIDEWALL TIRE BUFFER Office Visit [facility] - Pulmonology & Sleep Medicine [facility] [address] [place] [address] Baron Vergara MD [address] [place] [address] Scheduled Procedures Name Priority Associated Diagnoses Date/Ti me COLONOSCOPY HISTORY OF COLON POLYPS 03/27/2024 8:30 AM WHITE SIDEWALL TIRE BUFFER documented as of this encounter Visit Diagnoses Not on filedocumented in this encounter Care Teams Outsole Leveler Relationship Specialty Start Date End Date Daja Kern MD [address] [place] [address] PCP - General Internal Medicine 03/13/15 documented as of this encounter
--- OUTSIDE RECORDS SUMMARY | 2024-03-03 19:29 | XMS_ITS | Encounter Summary ---
Author Organization [facility] Address [address] [place] [address] Phone Care Team Providers Care Field Reimbursement Manager Name Role Phone Daja Kern MD Primary Care Provider [phone] Reason for Referral * Radiology Services (Routine) - Closed Specialty Diagnoses / Procedures Referred By Ladi aguilar Referred To Contact Radiology Diagnoses Tachycardia, unspecified Procedures EKG 12 LEAD Daja Kern MD [address] [place] [address] Phone: tel: fax: Referral ID Status Reason Start Date Expiration Date Visits Re quested Visits Authorized [id number] Closed 10/22/2020 1 1 Reason for Visit * Radiology Services (Routine) - Closed Specialty Diagnoses / Procedures Referred By Ladi aguilar Referred To Contact Radiology Diagnoses Tachycardia, unspecified Procedures EKG 12 LEAD Daja Kern MD [address] [place] [address] Phone: tel: fax: Referral ID Status Reason Start Date Expiration Date Visits Re quested Visits Authorized [id number] Closed 10/22/2020 1 1 Encounter Details Date Type Department Care Team (Latest Contact Info) Description 11/03/2020 1:03 PM CDT - 11/03/2020 11:59 PM CDT Hospital Encounter [facility] Cardiology Services [address] [place] [phone] Daja Kern MD [address] [place] [address] Discharge Disposition: Discharged to home or Selfcare [...] st Contact Info) Description 03/27/2024 8:30 AM NUTRITION INTERN [facility] [address] [place] [address] Burt Eastman MD [address] [address] 03/27/2024 8:30 AM NUTRITION INTERN - 03/27/2024 9:00 AM NUTRITION INTERN [facility] [address] [place] [address] Burt Eastman MD [address] [address] COLONOSCOPY 04/09/2024 1:15 PM NUTRITION INTERN [facility] - [place] [address] [place] [address] Baron Vergara MD [address] [place] [address] Scheduled Procedures Name Priority Associated Diagnoses Date/Ti me COLONOSCOPY HISTORY OF COLON POLYPS 03/27/2024 8:30 AM NUTRITION INTERN documented as of this encounter Procedures Procedure Name Priority Date/Time Associated Diagnosis Comments EKG 12 LEAD Routine 11/03/2020 1:20 PM CDT Tachycardia, unspecified documented in this encounter Results * EKG 12 LEAD (11/03/2020 1:20 PM CDT) Ventricular Rate BPM EXTERNAL EKG Atrial Rate BPM EXTERNAL EKG P-R Interval 130 ms EXTERNAL EKG QRS Duration 90 ms EXTERNAL EKG Q-T Duration 324 ms EXTERNAL EKG QTC CALCULATION 445 ms EXTERNAL EKG P [place] 37 degrees EXTERNAL EKG R [place] -15 degrees EXTERNAL EKG T [place] 37 degrees EXTERNAL EKG 11/03/2020 1:20 PM CDT Impressions EXTERNAL EKG - 11/04/2020 11:31 AM CDT Sinus tachycardia Left ventricular hypertrophy by voltage only Comparison Summary: No serial comparison made Summary: Abnormal ECG Confirmed by Heath Pickens [id number] on 11/04/2020 11:31:50 AM Narrative Procedure Note Lolita Joe MD - 11/04/2020 IMPRESSION: Sinus tachycardia Left ventricular hypertrophy by voltage only Comparison Summary: No serial comparison made Summary: Abnormal ECG Confirmed by Heath Pickens [id number] on 11/04/2020 11:31:50 AM us Daja Kern MD IMG ECG ORDERABLES Final Resu lt EXTERNAL EKG documented in this encounter Visit Diagnoses Diagnosis Tachycardia, unspecified documented in this encounter Care Teams Field Reimbursement Manager Relationship Specialty Start Date End Date Daja Kern MD [address] [place] [address] PCP - General Internal Medicine 03/13/15 documented as of this encounter
--- OUTSIDE RECORDS SUMMARY | 2024-03-03 19:29 | XMS_ITS | Encounter Summary ---
Author Organization [facility] Address [address] [place] [address] Phone Care Team Providers Care Rag Cutting Machine Tender Name Role Phone Daja Carballo MD Primary Care Provider [phone] Reason for Visit * Reason Comments Nausea Diarrhea * Auth/Cert Specialty Diagnoses / Procedures Referred By Contac t Referred To Contact Diagnoses Small bowel obstruction (HCC) Generalized abdominal pain Referral ID Status Reason Start Date Expiration Date Visits Re quested Visits Authorized [id number] 1 1 Encounter Details Date Type Department Care Team (Latest Contact Info) Description 02/20/2021 2:30 PM EDGE GRINDER - 02/22/2021 5:15 PM EDGE GRINDER Hospital Encounter [facility] Med Surg [address] [place] [phone] Sushil Thrasher MD [address] [place] [address] Mj Infante MD Krishna, Naveen Kumar, MD [address] [place] [address] Alicia Romero MD [address] [place] [address] SBO (small bowel obstruction) (HCC) Discharge Disposition: Discharged to home or [...] COVID-19? No / Unsure 02/20/2021 2:32 PM EDGE GRINDER documented as of this encounter Last Filed Vital Signs Vital Sign Reading Time Taken Comments Blood Pressure 148/97 02/22/2021 2:54 PM EDGE GRINDER Pulse 91 02/22/2021 2:54 PM EDGE GRINDER Temperature 36.5 ??C (97.7 ??F) 02/22/2021 2:54 PM CS T Respiratory Rate 18 02/22/2021 2:54 PM EDGE GRINDER Oxygen Saturation 99% 02/22/2021 2:54 PM EDGE GRINDER Inhaled Oxygen Concentration - - Weight 119.2 kg (262 lb 12.8 oz) 02/20/2021 9:10 PM EDGE GRINDER Height 157.5 cm (5' 2 ) 02/20/2021 9:10 PM EDGE GRINDER Body Mass Index 48.07 02/20/2021 9:10 PM EDGE GRINDER documented in this encounter Discharge Summaries * Alicia Romero MD - 02/22/2021 3:34 PM CST [facility] DISCHARGE SUMMARY Name: Alona Kemp Age: 50 y.o. : 1970 Attending Physician: Alicia Romero MD Admission Date/Time: 02/20/2021 Expected Discharge Date: 02/22/2021 Primary Care Physician: DAJA CARBALLO MD Discharging Provider: Alicia Romero MD INSTRUCTIONS FOR PHYSICIANS ON FOLLOW UP AFTER DISCHARGE: Follow-up with PCP: DAJA CARBALLO MD in 1 week Recommended Tests/Labs to order at follow-up: none Pending Labs/Path/Imaging: none Discharge Instructions: Discharge Condition: improved Disposition: Home Diet: Regular Diet Activity: activity as tolerated Primary Discharge Diagnosis: SBO (small bowel obstruction) (HCC), hypertension, hyperlipidemia, BMI48.07, GERD, depression, hypothyroidism Discharge Diagnoses: As above Active Hospital Problems Diagnosis Date Noted ??? Morbid obesity with BMI of 45.0-49.9, adult ([facility]) [E66.01, Z68.42] 02/20/2021 ??? GERD (gastroesophageal reflux disease) [K21.9] ??? Hypertension [I10] ??? Hyperlipidemia [E78.5] ??? Depression [F32.A] ??? Hypothyroid [E03.9] ??? Bipolar disorder (HCC) [F31.9] Resolved Hospital Problems Diagnosis Date Noted Date Resolved ??? SBO (small bowel obstruction) ([facility]) [K56.609] 02/20/2021 02/22/2021 Admitting Diagnoses: As above HOSPITAL COURSE: Alona Kemp was admitted 02/20/2021 with SBO (small bowel obstruction) ([facility]) . Surgeries performed during stay: * No surgery found * Consults: Treatment Team: Consulting Physician: Sedrick Ramirez Jr., MD Patient was admitted on 02/20/2021, and was evaluated on 02/21/2021 for abdominal pains. Imaging study has identified small-bowel obstruction. Supportive care measures were initiated, and general surgery evaluation was obtained. Small-bowel follow-through procedure was performed, and obstruction was resolved. Patient had diet advanced, for which she was able to tolerate. Patient was deemed stableto be discharged home. Exam Day of Discharge: Temp Av.9 ??F (36.6 ??C) Min: 97.6 ??F (36.4 ??C) Max: 98.3 ??F (36.8 ??C) BP Min: 104/68 Max: 148/97 Pulse Av Min: 77 Max: 108 Heart Rate (Monitor) Av Min: 80 Max: 80 Resp Av.5 Min: 18 Max: 20 SpO2 Av.5 % Min: 97 % Max: 99 % General: alert, and in no distress. Neck: [...] Review: Lab Results Component Value Date WBC 6.08 02/22/2021 HEMOGLOBIN 11.9 (L) 02/22/2021 HEMATOCRIT 37.9 02/22/2021 PLATELETCNT 169 02/22/2021 MCV 95.2 02/22/2021 Lab Results Component Value Date SODIUM 142 02/22/2021 POTASSIUM 3.3 (L) 02/22/2021 CHLORIDE 108 02/22/2021 CO2VEN 23 02/22/2021 ANIONGAP 14.3 02/22/2021 GLUCOSE 80 02/22/2021 BUN 13 02/22/2021 CREATININE 0.63 02/22/2021 BCRATIO8 21 (H) 02/22/2021 TOTALPROTEIN 7.6 02/20/2021 ALBUMIN 4.0 02/20/2021 CALCIUM 8.3 (L) 02/22/2021 TBIL 0.3 02/20/2021 SGOTAST 15 02/20/2021 SGPTALT 23 02/20/2021 ALKALINEPHO 100 02/20/2021 GFRNA >60 02/22/2021 GFRA >60 02/22/2021 No results found for: GLUCOSEPOCT Lab Results Component Value Date INR 1.4 (H) 10/11/2018 PTP 16.8 (H) 10/11/2018 Lab Results Component Value Date HGBA1C 4.8 03/24/2017 Lab Results Component Value Date HDENTPKV65 251 08/25/2015 No results found for: CPK, CPKI, CKMB, CKMBNI, CKMBPOCT, CKMBRELINDX, TROPONINI, POCTRP Lab Results Component Value Date FERRITIN 18 08/25/2015 No components found for: FOLATE No results found for: PHARTERIAL, PO2ART, XIB5YMD, CO2ART, O2ART Lab Results Component Value Date LACTICA 0.6 02/22/2021 XR ABDOMINAL SERIES WITH CHEST VIEW Result Date: 02/21/2021 IMPRESSION: 1. Low lung volumes with mild patchy bibasilar airspace opacities, which is likely related to subsegmental atelectasis and scarring. No definite evidence of focal consolidation. 2. Redemonstration of small bowel dilatation, grossly similar to the prior study, and remains concerning for small bowel obstruction. Follow-up is recommended as clinically indicated. XR CHEST SINGLE VIEW PORTABLE Result Date: 02/20/2021 IMPRESSION: 1. No acute cardiopulmonary disease. 2. Nasogastric tube is not well seen distally, possibly coiled in the gastric body. XR SMALL BOWEL FOLLOW THROUGH Result Date: 02/22/2021 IMPRESSION: No evidence of small-bowel obstruction. Findings likely represent an ileus. CT ABDOMEN PELVIS W/ CONTRAST Result Date: 02/20/2021 IMPRESSION: Findings suspicious for small bowel obstruction with multiple sites transition within the right mid to lower quadrant. Recommend surgical consultation and at minimum subsequent follow-up CT. Small volume free fluid. Additional findings as above. At approximately 7:23 pm EDGE GRINDER on 02/20/2021 , initial attempt was made to contact the referring clinician; this case was discussed in detail with acknowledgement via telephone with Dr. Infante at 7:27 PM. DISCHARGE MEDICATION LIST: Medication List CONTINUE taking these medications Aripiprazole 20 MG Tabs baclofen 20 MG Tabs Commonly known as: LIORESAL Cymbalta 20 MG Cpep Generic drug: DULoxetine diclofenac 50 MG Tabs Commonly known as: CATAFLAM diphenhydrAMINE 50 MG Caps Commonly known as: BENADRYL irbesartan 150 MG Tabs Commonly known as: AVAPRO levothyroxine 50 MCG Tabs Commonly known as: SYNTHROID metoprolol Succinate 25 MG Tab-sr-24hr Commonly known as: TOPROL-XL omeprazole 40 MG Cap-del-rel Commonly known as: PriLOSEC TAKE 1 CAPSULE BY MOUTH ONCE DAILY pregabalin 75 MG Caps Commonly known as: LYRICA sertraline 100 MG Tabs Commonly known as: ZOLOFT simvastatin 10 MG Tabs Commonly known as: ZOCOR traZODone 50 MG Tabs Commonly known as: DESYREL triamterene-hydrochlorothiazide 37.5-25 MG Tabs Commonly known as: MAXZIDE Time spent on interview, examination, final orders, recommendations, and care coordination for thishospital discharge: Greater than 30 minutes spent in coordinating care--- 33 minutes Thank you very much for allowing the [facility] Adult Hospitalist Service to participate in the care of this patient. If you have any questions, please don't hesitate to call. Signed: Alicia Romero MD, 02/22/2021, 3:34 PM EDGE GRINDER GRINDER documented in this encounter Discharge Instructions * Attachments The following attachments cannot be sent through Care Everywhere. * Calorie Counting for Weight Loss (Macanese) documented in this encounter Medications at Time [...] mg by mouth nightly as needed. 2 metoprolol Succinate (TOPROL-XL) 25 MG TABLET [...] daily. 2 documented as of this encounter Progress Notes * Julito Choudhury MD - 02/22/2021 1:08 PM CST Small-bowel follow-through negative. Will DC NG tube and start her on clear liquids. If she tolerates, okay to discharge her home. D/w RN GRINDER * Julito Choudhury MD - 02/22/2021 10:11 AM CST ASSESSMENT: Small bowel obstruction, likely partial PLAN: Await small-bowel follow-through Advised patient to stop doing cocaine Cc: Partial small bowel obstruction SUBJECTIVE: Passing gas. Feels a bit better. Undergoing small-bowel follow-through. States that she smoked cocaine about 4 or 5 days ago. I advised her to stop doing this OBJECTIVE: BP 130/88 Pulse 77 Temp 97.9 ??F (36.6 ??C) (Tympanic) Resp 20 Ht 5' 2 (1.575 m) Wt 262 lb 12.8 oz (119.2 kg) LMP 11/12/2019 SpO2 97% BMI 48.07 kg/m?? I/O last 21 completed shifts (7 Days): In: 3890 [I.V.:3830; NG/GT:60] Out: 1550 [Other:1550] Gen nad Abd: obese, soft, mild d, min tender GRINDER documented in this encounter H&P Notes * Alicia Romero MD - 02/21/2021 8:35 AM CST [facility] ADMISSION HISTORY & PHYSICAL Aggregate [id number] time was spent discussing end-of-life care planning with patient/family and/or Power of Special Education Paraprofessional. Approximately 20 was spent. Discussed CPR, Intubation, treatment goals, and Quality of life/Intensity of care. Patient desires CPR-Full Treatment Chief Complaint: Abdominal pain Assessment/Plan: Active Hospital Problems Diagnosis Date Noted ??? SBO (small bowel obstruction) ([facility]) 02/20/2021 ??? Morbid obesity with BMI of 45.0-49.9, adult ([facility]) 02/20/2021 ??? GERD (gastroesophageal reflux disease) ??? Hypertension ??? Hyperlipidemia ??? Depression ??? Hypothyroid ??? Bipolar disorder ([facility]) Resolved Hospital Problems No resolved problems to display. Plan: 1. Small-bowel obstruction As seen on CT imaging NPO IV fluid NG tube with low intermittent suction Obstructive series General surgery consultation Pain management p.r.n. 2. GERD IV Pepcid while patient is NPO 3. Hypertension Hold oral home medications while patient is NPO IV hydralazine p.r.n. Will monitor vital signs closely and adjust management accordingly 4. Hyperlipidemia Pending fasting lipid panel Further adjustments management to be coordinated 5. Hypothyroidism Pending assessment a TSH and FT4 levels 6. Bipolar disorder/depression Hold oral home medication while patient is NPO 7. Disposition: Possible discharge home in 4 days 8. Code Status: Code Status: Full Code 4. VTE Prophylaxis: Lovenox 40mg Q24h Treatment Team: Consulting Physician: Sedrick Ramirez Jr., MD Thank you very much for allowing the [facility] Adult Hospitalist Service to participate in the care of this patient HPI: Alona Kemp is a 50 y.o. female who presented to [facility] with complaints of abdominal pain. Patient refers pain symptoms beginning over the past 24 hours. During this time, painsymptoms gradually worsening. Patient has experience abdominal distension emerge as well as pain symptoms coming in cycles, every 10-15 minutes. After which, pain symptoms typically resolve on their own. Unfortunately, pain symptoms becoming more intense prior to arrival in ER. Patient denies having chest pain, palpitations nor shortness of breath symptoms. Patient indicates with the placement ofNG tube, abdominal distension had begun to decrease, and pain symptoms began to improve. Patient has experience 1 similar event previously. In addition, patient has undergone cholecystectomy procedure and in remote past. Allergies: is allergic to geodon [ziprasidone hcl], risperdal [risperidone], topamax [topiramate], and sulfa antibiotics. As noted Home Medications: Prior to Admission Medications Prescriptions Last Dose Informant Patient Reported? Taking? Aripiprazole 20 MG Tablet 02/19/2021 at Unknown time Yes Yes Sig: Take 20 mg by mouth daily. DULoxetine (Cymbalta) [address] Particles 02/19/2021 at Unknown time Yes Yes Sig: Take 60 mg by mouth nightly. baclofen (LIORESAL) 20 MG Tablet 02/19/2021 at Unknown time Yes Yes Sig: Take 20 mg by mouth 2 times daily as needed. diclofenac (CATAFLAM) 50 MG Tablet 02/19/2021 at Unknown time Yes Yes Sig: Take 75 mg by mouth 2 times daily. diphenhydrAMINE (BENADRYL) 50 MG Capsule 02/13/2021 at Unknown time Yes Yes Sig: Take 50 mg by mouth nightly as needed. irbesartan (AVAPRO) 150 MG Tablet 02/19/2021 at Unknown time Yes Yes Sig: Take 150 mg by mouth daily. levothyroxine (SYNTHROID) 50 MCG Tablet 02/19/2021 at Unknown time Pharmacy Yes Yes Sig: Take 50 mcg by mouth daily. Indications: Underactive Thyroid metoprolol Succinate (TOPROL-XL) 25 MG TABLET SR 24 HR 02/19/2021 at Unknown time Yes Yes Sig: Take 25 mg by mouth daily. omeprazole (PriLOSEC) 40 MG CAPSULE DELAYED RELEASE 02/19/2021 at Unknown time No Yes Sig: TAKE 1 CAPSULE BY MOUTH ONCE DAILY pregabalin (LYRICA) 75 MG Capsule 02/19/2021 at Unknown time Yes Yes Sig: Take 75 mg by mouth 2 times daily. sertraline (ZOLOFT) 100 MG Tablet 02/19/2021 at Unknown time Yes Yes Sig: Take 150 mg by mouth daily. simvastatin (ZOCOR) 10 MG Tablet 02/19/2021 at Unknown time Yes Yes Sig: Take 10 mg by mouth every evening. traZODone (DESYREL) 50 MG Tablet 02/19/2021 at Unknown time Yes Yes Sig: Take 100 mg by mouth nightly. triamterene-hydrochlorothiazide (MAXZIDE) 37.5-25 MG Tablet 02/19/2021 at Unknown time Yes Yes Sig: Take 1 Tab by mouth daily. Facility-Administered Medications: None Past Medical History: She has a past medical history of Adenomatous colon polyp, Anxiety, Bipolar disorder ([facility]), Cocaine abuse ([facility]), DDD (degenerative disc disease), lumbar, Depression, GERD (gastroesophageal reflux disease), HLD (hyperlipidemia), HTN (hypertension), Hypothyroid, IBS (irritable bowel syndrome), Morbid obesity ([facility]), NAFLD (nonalcoholic fatty liver disease), Nephrocalcinosis, KWABENA (obstructive sleep apnea), SBO (small bowel obstruction) ([facility]) (09/2018), and Vitamin D deficiency. As noted Surgical History: has a past surgical history that includes Section (1994); Cholecystectomy (2004); EGD (2012?); Colonoscopy; [place] Tooth Extraction (1991); Colonoscopy (N/A, 11/16/2018); and Upper Gastrointestinal Endoscopy (N/A, 02/06/2019). As noted Social History: reports that she has never smoked. She has never used smokeless tobacco. She reports current drug use. Drug: Cocaine. She reports that she does not drink alcohol. As noted Family History: family history includes Depression in her brother and mother; Diabetes in her maternal uncle and mother; Hypertension in her mother; No Known Problems in her daughter; Obstructive Sleep Apnea in her brother. As noted Review of Systems: All systems reviewed and are negative except what is mentioned in HPI. Physical Exam: VITALS:Temp Av.1 ??F (36.7 ??C) Min: 97.7 ??F (36.5 ??C) Max: 98.3 ??F (36.8 ??C) BP Min: 103/55 Max: 129/85 Pulse Av.2 Min: 94 Max: 118 Heart Rate (Monitor) Av.5 Min: 80 Max: 95 Resp Av.5 Min: 16 Max: 20 SpO2 Av.9 % Min: 88 % Max: 97 % I/O last 3 completed shifts: In: 1848.3 [I.V.:1788.3; NG/GT:60] Out: 900 [Other:900] Stool Occurrence: 1 (02/21/21 0200) Weight: Wt Readings from Last 1 Encounters: 12/25/21 262 lb 12.8 oz (119.2 kg) General: alert, oriented and in no acute distress. Skin: normal coloration and turgor, no rashes. HEENT: normocephalic, atraumatic. Pupils equal, round and reactive to light. Extraocular movements intact. Oronasopharynx pink and moist, no lesion or exudate. Neck: Supple. No JVD, lymphadenopathy thyromegaly or carotid bruits auscultated. CVS: RRR, S1/S2 normal, no murmurs, gallops or rubs. Chest: clear to auscultation, no wheezes, rales or rhonchi, symmetric air entry and normal respiratory effort. Abdominal: [id number] abdominal distension, pain on palpation, no guarding, no increase in abdominal warmth, positive bowel sounds. Extremities: no edema, no clubbing or cyanosis. Neuro: CN 2-12 grossly intact, normal speech, no focal findings or movement disorder noted. Gait not tested.. Data Review: XR ABDOMINAL SERIES WITH CHEST VIEW Result Date: 02/21/2021 IMPRESSION: 1. Low lung volumes with mild patchy bibasilar airspace opacities, which is likely related to subsegmental atelectasis and scarring. No definite evidence of focal consolidation. 2. Redemonstration of small bowel dilatation, grossly similar to the prior study, and remains concerning for small bowel obstruction. Follow-up is recommended as clinically indicated. XR CHEST SINGLE VIEW PORTABLE Result Date: 02/20/2021 IMPRESSION: 1. No acute cardiopulmonary disease. 2. Nasogastric tube is not well seen distally, possibly coiled in the gastric body. CT ABDOMEN PELVIS W/ CONTRAST Result Date: 02/20/2021 IMPRESSION: Findings suspicious for small bowel obstruction with multiple sites transition within the right mid to lower quadrant. Recommend surgical consultation and at minimum subsequent follow-up CT. Small volume free fluid. Additional findings as above. At approximately 7:23 pm EDGE GRINDER on 02/20/2021 , initial attempt was made to contact the referring clinician; this case was discussed in detail with acknowledgement via telephone with Dr. Infante at 7:27 PM. Lab Results Component Value Date WBC 6.72 02/21/2021 HEMOGLOBIN 12.6 02/21/2021 HEMATOCRIT 40.6 02/21/2021 PLATELETCNT 249 02/21/2021 MCV 96.0 02/21/2021 Lab Results Component Value Date SODIUM 141 02/21/2021 POTASSIUM 3.3 (L) 02/21/2021 CHLORIDE 108 02/21/2021 CO2VEN 23 02/21/2021 ANIONGAP 13.3 02/21/2021 GLUCOSE 90 02/21/2021 BUN 22 (H) 02/21/2021 CREATININE 0.77 02/21/2021 BCRATIO8 29 (H) 02/21/2021 TOTALPROTEIN 7.6 02/20/2021 ALBUMIN 4.0 02/20/2021 CALCIUM 7.9 (L) 02/21/2021 TBIL 0.3 02/20/2021 SGOTAST 15 02/20/2021 SGPTALT 23 02/20/2021 ALKALINEPHO 100 02/20/2021 GFRNA >60 02/21/2021 GFRA >60 02/21/2021 No results found for: PHARTERIAL, PO2ART, BKW2XVP, CO2ART, O2ART No results found for: CPK, CPKI, CKMB, CKMBNI, CKMBPOCT, CKMBRELINDX, TROPONINI, POCTRP No results found for: AMYL, AMYLASE Lab Results Component Value Date LIPASE 31.6 02/20/2021 Lab Results Component Value Date CHOLESTEROL 131 02/21/2021 TRIGLYCRIDES 203 (H) 02/21/2021 HDLCHOLESTE 27.6 (L) 02/21/2021 LDL 63 02/21/2021 By: Alicia Romero MD, 02/21/2021, 4:48 PM EDGE GRINDER Primary Care Physician: DAJA CARBALLO MD GRINDER documented in this encounter Consult Notes * Sedrick Ramirez Jr., MD - 02/21/2021 3:07 PM CST Images from the original note were not included. General Surgery Consult Date of Consultation: 02/21/2021 Reason for Consult: 5 day history of abdominal pain HPI: 51 y/o presents to ER with 5 day history of belly pain . Positive association with nausea and vomiting. Work up included blood work and CT scan. Scan raised suspicion for small bowel obx. Note that patient reports similar type episode in 2019. Based on concern for small bowel obx, Surgery ws asked to consult. PMH: Past Medical History Positives Diagnosis Date ??? [...] obstruction) (HCC) 09/2018 ??? Vitamin D deficiency PSH: Past Surgical History: Procedure Laterality Date ??? SECTION 1994 ??? CHOLECYSTECTOMY 2005 laparoscopic ??? COLONOSCOPY [facility] (Does not remember the ) ??? COLONOSCOPY N/A 11/16/2018 Procedure: COLONOSCOPY - POLYPS, BIOPSIES; Surgeon: Damian Gallardo DO; Location: [facility]; Service: Gastroenterology ??? EGD 2012? [facility] ??? UPPER GASTROINTESTINAL ENDOSCOPY N/A 02/06/2019 Procedure: EGD, SMALL BOWEL BIOSY, GASTRIC POLYP, SAMANTHA TEST; Surgeon: Damian Gallardo DO; Location: [facility]; Service: Gastroenterology ??? WISDOM TOOTH EXTRACTION 1992 4 wisdom teeth removed. Medications: Current Facility-Administered Medications Medication ??? 0.9 % sodium chloride solution ??? acetaminophen (TYLENOL) suppository 650 mg ??? enoxaparin (LOVENOX) injection 40 mg ??? famotidine (PEPCID) injection 20 mg ??? HYDROmorphone (DILAUDID) injection 1 mg ??? ketorolac (TORADOL) injection 15 mg ??? metoclopramide (REGLAN) injection 5 mg ??? ondansetron (ZOFRAN) injection 4 mg ??? Prochlorperazine Edisylate (COMPAZINE) injection 5 mg Allergies: Allergies Description Type Start Date End Date Comment Verified Brand Specialist Risperidone Intolerance 09-Aug-2017 Severity: High Reactions: Other (see Comments) Comment: Violentand agitated. Jarvis Hopkins PAC ([facility]) Sulfa Antibiotics Allergy 01-Sep-2015 Severity: Medium Reactions: Hives Sandra Bautista RN Topiramate Intolerance 09-Aug-2017 Severity: High Reactions: Other (see Comments) Comment: Difficulty with speech and word finding. Jarvis Hopkins PAC ([facility]) Ziprasidone Hcl Unknown 09-Aug-2017 Severity: High Reactions: Other (see Comments) Comment: Abnormal mouth movements Jarvis Hopkins PAC (Phys[facility]) SH: Social History Socioeconomic History ??? Marital status: Spouse name: Not on file ??? Number of children: Not on file ??? Years of education: Not on file ??? Highest education level: Not on file Tobacco Use ??? Smoking status: Never Smoker ??? Smokeless tobacco: Never Used Vaping Use ??? Vaping Use: Never used Substance and Sexual Activity ??? Alcohol use: No ??? Drug use: Yes Types: Cocaine ??? Sexual activity: Not Currently Partners: Male FH: Family History Problem Relation Age of Onset ??? Depression Mother ??? Diabetes Mother ??? Hypertension Mother ??? Depression Brother ??? Obstructive Sleep Apnea Brother ??? No Known Problems Daughter ??? Diabetes Maternal Uncle Physical Exam: VITALS: BP 129/85 Pulse (!) 118 Temp 98.2 ??F (36.8 ??C) (Tympanic) Resp 18 Ht 5' 2 (1.575m) Wt 262 lb 12.8 oz (119.2 kg) LMP 11/12/2019 SpO2 95% BMI 48.07 kg/m?? I/O last 3 completed shifts: In: 1848.3 [I.V.:1788.3; NG/GT:60] Out: 900 [Other:900] EXAM ALERT AND ORIENTED AFEBRILE AND SABLE HEENT -- NORMACEPHALIC ; JOYCELYN NECK - SUPPLE ; NO BRUIT LUNGS - CLEAR TO AUSCULTATION HEART - REGULAR RATE AND RHYTHM ABDOMEN - OBESE HYPOACTIVE BOWEL SOUNDS NO PAIN ILLICITTED AT THIS EXAM ; NOTE PATIENT REPORTS IMPROVEMENT POST N/G TUBE PLACEMENT EXT - WNL NEURO - NO GROSS MOTOR OR SENSORY DEFICENT Labs: Lab Results Component Value Date WBC 6.72 02/21/2021 HEMOGLOBIN 12.6 02/21/2021 HEMATOCRIT 40.6 02/21/2021 PLATELETCNT 249 02/21/2021 MCV 96.0 02/21/2021 Lab Results Component Value Date CREATININE 0.77 02/21/2021 BUN 22 (H) 02/21/2021 GLUCOSE 90 02/21/2021 SODIUM 141 02/21/2021 POTASSIUM 3.3 (L) 02/21/2021 CHLORIDE 108 02/21/2021 Lab Results Component Value Date SGPTALT 23 02/20/2021 ALKALINEPHO 100 02/20/2021 Lab Results Component Value Date LIPASE 31.6 02/20/2021 Lab Results Component Value Date TOTALPROTEIN 7.6 02/20/2021 ALBUMIN 4.0 02/20/2021 Lab Results Component Value Date INR 1.4 (H) 10/11/2018 Imaging: XR ABDOMINAL SERIES WITH CHEST VIEW Result Date: 02/21/2021 IMPRESSION: 1. Low lung volumes with mild patchy bibasilar airspace opacities, which is likely related to subsegmental atelectasis and scarring. No definite evidence of focal consolidation. 2. Redemonstration of small bowel dilatation, grossly similar to the prior study, and remains concerning for small bowel obstruction. Follow-up is recommended as clinically indicated. XR CHEST SINGLE VIEW PORTABLE Result Date: 02/20/2021 IMPRESSION: 1. No acute cardiopulmonary disease. 2. Nasogastric tube is not well seen distally, possibly coiled in the gastric body. CT ABDOMEN PELVIS W/ CONTRAST Result Date: 02/20/2021 IMPRESSION: Findings suspicious for small bowel obstruction with multiple sites transition within the right mid to lower quadrant. Recommend surgical consultation and at minimum subsequent follow-up CT. Small volume free fluid. Additional findings as above. At approximately 7:23 pm EDGE GRINDER on 02/20/2021 , initial attempt was made to contact the referring clinician; this case was discussed in detail with acknowledgement via telephone with Dr. Infante at 7:27 PM. Other tests: PLAIN OBSTRUCTIVE SERIES -- SHOWS DILATED LOOPS OF SMALL LOOPS . THERE IS GAS IN THE COLON Assessment: Alona Kemp is a 50 y.o. y/o female presents with complaint of 5 days of midline abdominal pain. With the progression of time , she began experincing nausea and vomiting . On iveth flora, she reports the start of diarrhea . Based on the above , A decision to come to the ER was made. On arrival , blood work and CT were gotten. The CT was suspicious for small bowel Obx Complete problems addressed during this admission: Principal Problem: SBO (small bowel obstruction) ([facility]) Active Problems: GERD (gastroesophageal reflux disease) Hypertension Hyperlipidemia Bipolar disorder ([facility]) Depression Hypothyroid Morbid obesity with BMI of 45.0-49.9, adult ([facility]) Plan: CONTINUE N/G SUCTION SMALL BOWEL SERIES VIA N/G TUBE The risks, benefits and alternatives of the procedure have been explained to the patient and family. They wish to proceed with scheduled procedure at this time. Documentation for this visit on February 21 was completed using a template. I have seen and examined the patient. Everything documented was personally performed at this visit with the necessary additions, deletions and changes made as appropriate. By: Sedrick Ramirez Jr., MD, 02/21/2021, 3:08 PM EDGE GRINDER Primary Care Physician: DAJA CARBALLO MD GRINDER documented in this encounter ED Notes * Kit Gan RN - 02/20/2021 8:59 PM CST Pt transferred to floor, belongings sent with pt. Pt alert and oriented x 4 with respirations that are even and unlabored at time of discharge. GRINDER * Kit Gan RN - 02/20/2021 8:53 PM CST Pt medicated per provider orders. Pt educated on intended effects and side effects of medication and verbalized understanding, able to provide teach back of education. GRINDER * Kit Gan RN - 02/20/2021 7:53 PM CST Pt resting on stretcher with call light within Reach, pt denies needs at this time. GRINDER * Mj Infante MD - 02/20/2021 7:40 PM CST Chief Complaint Patient presents with ??? Nausea ??? Diarrhea HPI No current facility-administered medications for this encounter. [...] route. Vitamin B-12 injection one time/month. ??? diclofenac (CATAFLAM) 50 MG Tablet Take 50 mg by mouth 2 times daily. ??? diphenhydrAMINE (BENADRYL) 50 MG Capsule Take 50 mg by mouth nightly as needed. ??? DULoxetine (Cymbalta) [address] Particles Take 20 mg by mouth nightly. ??? famotidine (PEPCID) 20 MG Tablet Take [...] 2 times daily as needed. ??? omeprazole (PriLOSEC) 40 MG CAPSULE DELAYED RELEASE TAKE 1 CAPSULE BY MOUTH ONCE DAILY 90 Capsule 3 ??? pravastatin (PRAVACHOL) 20 MG Tablet Take 20 mg by mouth daily. ??? pregabalin (LYRICA) 75 MG Capsule Take [...] use cpap ??? SBO (small bowel obstruction) ([facility]) 09/2018 ??? Vitamin D deficiency Past Surgical History: Procedure Laterality Date ??? SECTION 1994 ??? CHOLECYSTECTOMY 2005 laparoscopic ??? COLONOSCOPY [facility] (Does not remember the ) ??? COLONOSCOPY N/A 11/16/2018 Procedure: COLONOSCOPY - POLYPS, BIOPSIES; Surgeon: Damian Gallardo DO; Location: [facility]; Service: Gastroenterology ??? EGD 2012? [facility] ??? UPPER GASTROINTESTINAL ENDOSCOPY N/A 02/06/2019 Procedure: EGD, SMALL BOWEL BIOSY, GASTRIC POLYP, SAMANTHA TEST; Surgeon: Damian Gallardo DO; Location: [facility]; Service: Gastroenterology ??? WISDOM TOOTH [...] Not on file Social Determinants of Health Social determinant risk not applicable to this patient. BP 99/61 Pulse 101 Temp 97.9 ??F (36.6 ??C) Resp 18 Ht 5' 2 (1.575 m) Wt 259 lb (117.5 kg) LMP 11/12/2019 SpO2 (!) 88% BMI 47.37 kg/m?? Review of Systems Physical Exam Procedures Imaging Results CT ABDOMEN PELVIS W/ CONTRAST (Final result) Result time 02/20/21 19:32:31 Final result by Garett Cuevas MD (02/20/21 19:32:31) Impression: IMPRESSION: Findings suspicious for small bowel obstruction with multiple sites transition within the right mid to lower quadrant. Recommend surgical consultation and at minimum subsequent follow-up CT. Small volume free fluid. Additional findings as above. At approximately 7:23 pm EDGE GRINDER on 02/20/2021 , initial attempt was made to contact the referring clinician; this case was discussed in detail with acknowledgement via telephone with Dr. Infante at 7:27 PM. Narrative: EXAM DESCRIPTION: CT ABDOMEN PELVIS W/ CONTRAST REASON FOR STUDY: Abdominal infection suspected Nausea, vomiting, diarrhea Duration = 2 days TECHNIQUE: CT scan of the abdomen and pelvis performed with intravenous and oral contrast using helical scanning technique with dynamic intravenous contrast injection. Reconstructed coronal and sagittal MPR images reviewed. All images stored on PACS. Automated exposure control was used as a dose optimization technique for this examination. CONTRAST TYPE/DOSE: 125 cc Isovue 370 injected through the left hand, 20 gauge IV COMPARISON: 10/06/2018 FINDINGS: LOWER CHEST: Bibasilar atelectatic change. Visualized lower mediastinum is unremarkable. LIVER: 0.8 cm hypodensity within the peripheral left hepatic lobe, unchanged from prior but too small to characterize. 3.4 cm hypodensity within the posterior right hepatic lobe, compatible with a cyst. No suspicious lesion. GALLBLADDER: Surgically absent. BILE DUCTS: No intrahepatic or extrahepatic ductal dilatation. SPLEEN: No focal lesions. PANCREAS: No identified cystic or solid masses. No significant calcifications. No adjacent inflammation or peripancreatic fluid collections. Pancreatic duct not dilated. ADRENALS: Unremarkable. KIDNEYS/URINARY TRACT: No identified significant cystic or solid masses. No visualized stones. No hydronephrosis or hydroureter. Symmetric enhancement. Bladder is partially decompressed, limiting evaluation. GI: Evaluation the gastrointestinal tract is limited by lack of distention and bowel prep. Esophagus is slightly distended with fluid. The stomach is significantly distended. Mild thickening the distal gastric wall. Diffuse dilatation of the small bowel measuring up to 3.7 cm with multiple sites of transition such as at the anterior right abdomen (axial image 133), and right lower quadrant (axial image 161). Colon is partially decompressed PERITONEUM: Small volume free fluid. RETROPERITONEUM: No mass or adenopathy. REPRODUCTIVE: No significant abnormality. VASCULATURE: No abdominal aortic aneurysm. MUSCULOSKELETAL: No acute or aggressive osseous lesion. Anterolisthesis of L5 on S1 by approximately 0.6 cm. Multilevel degenerative disc disease, severe at L5-S1. Bilateral L5 pars defects. OTHER: No additional significant abnormality. THIS IS AN ELECTRONICALLY VERIFIED FINAL REPORT 02/20/2021 7:29 PM - Electronically signed by Garett Cuevas M.D. BG: BG Report ID: [id number] Reading Location: [place] [address] Labs Reviewed CMP (COMPREHENSIVE METABOLIC PANEL) - Abnormal; Notable for the following components: Result Value POTASSIUM 3.4 (*) CO2, VENOUS 19 (*) GLUCOSE 106 (*) BUN 22 (*) BUN/CREATININE RATIO 24 (*) All other components within normal limits CBC WITH AUTO DIFFERENTIAL - Abnormal; Notable for the following components: WBC 13.70 (*) HEMATOCRIT (HCT) 48.7 (*) NEUTROPHILS 81.8 (*) LYMPHOCYTES 11.3 (*) ABSOLUTE NEUTROPHILS 11.20 (*) All other components within normal limits LACTIC ACID (LACTATE) - Normal LIPASE - Normal COMPLETE BLOOD COUNT (CBC) WITH DIFF Narrative: The following orders were created for panel order Complete Blood Count (CBC) WITH Diff. Procedure Abnormality Status --------- ------ CBC with Auto Differential[[id number]] Abnormal Final result Please view results for these tests on the individual orders. URINALYSIS REFLEX IF INDICATED BY ABNORMAL RESULTS POCT URINE HCG () MDM Number of Diagnoses or Management Options Generalized abdominal pain Small bowel obstruction (HCC) Diagnosis management comments: Spoke with hospitalist RIGO patient will be admitted to the service ofDr. Gongora,. With the diagnosis of small-bowel obstruction Reviewed: nursing note and vitals Interpretation: labs, CT scan, x-ray and ECG Total time providing critical care: < 30 minutes. This excludes time spent performing separatelyreportable procedures and services. Clinical Impression 1. Generalized abdominal pain 2. Small bowel obstruction (HCC) ED Course as of Feb 20 1941 Sat Feb 20, [id number] Care endorsed oncoming physician Dr. infante for further evaluation and final disposition. [JK] ED Course User Index [JK] Sushil Thrasher MD GRINDER GRINDER * Kit Gan RN - 02/20/2021 7:04 PM CST Patient is resting in room with call light at bedside. Patient informed about wait time and verbalizes understanding. Patient denies needs at this time and verbalizes understanding that RN will complete hourly rounding. GRINDER * Kit Gan RN - 02/20/2021 6:10 PM CST Pt medicated per provider orders. Pt educated on intended effects and side effects of medication and verbalized understanding, able to provide teach back of education. GRINDER * Kit Gan RN - 02/20/2021 5:11 PM CST Patient is resting in room with call light at bedside. Patient informed about wait time and verbalizes understanding. Patient denies needs at this time and verbalizes understanding that RN will complete hourly rounding. GRINDER * Kit Gan RN - 02/20/2021 4:21 PM CST Pt medicated per provider orders. Pt educated on intended effects and side effects of medication and verbalized understanding, able to provide teach back of education. GRINDER * Sushil Thrasher MD - 02/20/2021 4:02 PM CST Chief Complaint Patient presents with ??? Nausea ??? Diarrhea Patient is a 50-year-old white female with history of hypertension hyperlipidemia who presents secondary to abdominal pain. Patient endorses acute onset of abdominal pain over last week. Progressively worsening over last 24 hours. Associated nausea with vomiting and diarrhea. Has had 3 episodes of v omiting last 1 was this morning. Nonbloody nonbilious. Diarrhea is clear. Patient has had colitis in the past and endorses this feels like her prior events of colitis. Patient without any recent endoscopy or colonoscopy. Last colonoscopy was many years ago in a just demonstrated polyps. Patient hasalready had a cholecystectomy and a . Patient denies any abnormal foods are known COVID exposures. Patient has been vaccinated for COVID last 1 was less than a month ago. Denies any fever. Pain is moderate to severe sharp throughout her abdomen. Denies any vaginal complaints. Denies any urinary symptoms. No current facility-administered medications for this [...] route. Vitamin B-12 injection one time/month. ??? diclofenac (CATAFLAM) 50 MG Tablet Take 50 mg by mouth 2 times daily. ??? diphenhydrAMINE (BENADRYL) 50 MG Capsule Take 50 mg by mouth nightly as needed. ??? DULoxetine (Cymbalta) [address] Particles Take 20 mg by mouth nightly. ??? famotidine (PEPCID) 20 MG Tablet Take [...] 2 times daily as needed. ??? omeprazole (PriLOSEC) 40 MG CAPSULE DELAYED RELEASE TAKE 1 CAPSULE BY MOUTH ONCE DAILY 90 Capsule 3 ??? pravastatin (PRAVACHOL) 20 MG Tablet Take 20 mg by mouth daily. ??? pregabalin (LYRICA) 75 MG Capsule Take [...] [facility] (Does not remember the DRKy[facility]) ??? COLONOSCOPY N/A 11/16/2018 Procedure: COLONOSCOPY - POLYPS, BIOPSIES; Surgeon: Damian Gallardo DO; Location: [facility]; Service: Gastroenterology ??? EGD 2012? [facility] ??? UPPER GASTROINTESTINAL ENDOSCOPY N/A 02/06/2019 Procedure: EGD, SMALL BOWEL BIOSY, GASTRIC POLYP, SAMANTHA TEST; Surgeon: Damian Gallardo DO; Location: [facility]; Service: Gastroenterology ??? WISDOM TOOTH [...] Not on file Social Determinants of Health Social determinant risk not applicable to this patient. BP 133/78 Pulse (!) 118 Temp 97.9 ??F (36.6 ??C) Resp 18 Ht 5' 2 (1.575 m) Wt 259 lb (117.5 kg) LMP 11/12/2019 SpO2 99% BMI 47.37 kg/m?? Review of Systems All other systems reviewed and are negative. Physical Exam Vitals and nursing note reviewed. Constitutional: Comments: Patient is morbidly obese tearful laying supine in the stretcher. HENT: Head: Normocephalic. Nose: Nose normal. Mouth/Throat: Mouth: Mucous membranes are dry. Eyes: General: Right eye: No discharge. Extraocular Movements: Extraocular movements intact. Pupils: Pupils are equal, round, and reactive to light. Cardiovascular: Rate and Rhythm: Normal rate and regular rhythm. Pulses: Normal pulses. Heart sounds: No murmur heard. Pulmonary: Effort: Pulmonary effort is normal. No respiratory distress. Breath sounds: Normal breath sounds. Abdominal: General: There is no distension. Tenderness: There is abdominal tenderness. There is guarding. Comments: Abdomen diffusely tender with moderate rebound. No masses palpated. Diminished bowel sounds. No CVAT. Musculoskeletal: General: No swelling. Normal range of motion. Cervical back: Normal range of motion. No rigidity. Skin: General: Skin is warm. Capillary Refill: Capillary refill takes less than 2 seconds. Neurological: General: No focal deficit present. Mental Status: She is alert. Psychiatric: Mood and Affect: Mood normal. Procedures Imaging Results CT ABDOMEN PELVIS W/ CONTRAST (In process) Labs Reviewed CMP (COMPREHENSIVE METABOLIC PANEL) LACTIC ACID (LACTATE) LIPASE COMPLETE BLOOD COUNT (CBC) WITH DIFF Narrative: The following orders were created for panel order Complete Blood Count (CBC) WITH Diff. Procedure Abnormality Status --------- ------ CBC with Auto Differential[[id number]] Please view results for these tests on the individual orders. URINALYSIS REFLEX IF INDICATED BY ABNORMAL RESULTS POCT URINE HCG () CBC WITH AUTO DIFFERENTIAL MDM Number of Diagnoses or Management Options Generalized abdominal pain Small bowel obstruction (HCC) Diagnosis management comments: Results for orders placed or performed during the hospital encounterof 02/20/21 -SARS-COV-2 BY MOLECULAR: Specimen: Nasal; Other Result Value Ref Range SARSCOV2 NOT DETECTED (Reference Range for thi* -CMP (Comprehensive Metabolic Panel): Result Value Ref Range SODIUM 140 136 - 144 mmol/L POTASSIUM 3.4 (L) 3.5 - 5.1 mmol/L CHLORIDE 105 100 - 110 mmol/L CO2, VENOUS 19 (L) 22 - 32 mmol/L ANION GAP 19.4 8.0 - 20.0 mmol/L GLUCOSE 106 (H) 70 - 99 mg/dL BUN 22 (H) 6 - 20 mg/dL CREATININE, BLOOD 0.91 0.60 - 1.10 mg/dL BUN/CREATININE RATIO 24 (H) 12 - 20 ratio TOTAL PROTEIN 7.6 6.0 - 8.3 g/dL ALBUMIN 4.0 3.5 - 5.2 g/dL A/G RATIO 1.1 1.0 - 2.0 CALCIUM 9.7 8.9 - 10.3 mg/dL T BILI 0.3 <=1.2 mg/dL SGOT (AST) 15 <=32 U/L SGPT (ALT) 23 <=41 U/L ALKALINE PHOSPHATASE 100 35 - 105 U/L GFR, EST. NONAFRICAN >60 >=60 GFR, EST. >60 >=60 -Lactic Acid (Lactate) Serum: Result Value Ref Range LACTIC ACID 1.4 0.5 - 2.0 mmol/L -Lipase: Result Value Ref Range LIPASE 31.6 13 - 60 U/L -BMP with Ca, Total: Result Value Ref Range SODIUM 141 136 - 144 mmol/L POTASSIUM 3.3 (L) 3.5 - 5.1 mmol/L CHLORIDE 108 100 - 110 mmol/L CO2, VENOUS 23 22 - 32 mmol/L ANION GAP 13.3 8.0 - 20.0 mmol/L GLUCOSE 90 70 - 99 mg/dL BUN 22 (H) 6 - 20 mg/dL CREATININE, BLOOD 0.77 0.60 - 1.10 mg/dL BUN/CREATININE RATIO 29 (H) 12 - 20 ratio CALCIUM 7.9 (L) 8.9 - 10.3 mg/dL GFR, EST. NONAFRICAN >60 >=60 GFR, EST. >60 >=60 -Lipid Panel: Result Value Ref Range CHOLESTEROL 131 <=200 mg/dL TRIGLYCERIDES 203 (H) <150 mg/dL HDL CHOLESTEROL 27.6 (L) >40 mg/dL LDL 63 5 - 130 mg/dL VLDL 41 5 - 55 mg/dL CHOL/HDL RATIO 4.7 (H) 0.0 - 4.4 NON-HDL CHOLESTEROL 103.4 <130 mg/dL -Thyroid Stimulating Hormone (TSH): Result Value Ref Range TSH 1.490 0.270 - 4.200 mIU/L -BMP AM: Result Value Ref Range SODIUM 142 136 - 144 mmol/L POTASSIUM 3.3 (L) 3.5 - 5.1 mmol/L CHLORIDE 108 100 - 110 mmol/L CO2, VENOUS 23 22 - 32 mmol/L ANION GAP 14.3 8.0 - 20.0 mmol/L GLUCOSE 80 70 - 99 mg/dL BUN 13 6 - 20 mg/dL CREATININE, BLOOD 0.63 0.60 - 1.10 mg/dL BUN/CREATININE RATIO 21 (H) 12 - 20 ratio CALCIUM 8.3 (L) 8.9 - 10.3 mg/dL GFR, EST. NONAFRICAN >60 >=60 GFR, EST. >60 >=60 -Lactic Acid (Lactate): Result Value Ref Range LACTIC ACID 0.6 0.5 - 2.0 mmol/L -CBC with Auto Differential: Result Value Ref Range WBC 13.70 (H) 4.00 - 12.00 10(3)/mcL RBC 5.18 3.80 - 5.30 10(6)/mcL HEMOGLOBIN (HGB) 15.3 12.0 - 15.8 g/dL HEMATOCRIT (HCT) 48.7 (H) 36.0 - 47.0 % MCV 94.0 82.0 - 96.0 fL MCH 29.5 26.0 - 34.0 pg MCHC 31.4 31.0 - 36.0 g/dL PLATELET COUNT 342 140 - 440 10(3)/mcL RDW 13.6 11.8 - 15.5 % MPV 11.8 9.7 - 12.4 fL NEUTROPHILS 81.8 (H) 47.0 - 73.0 % LYMPHOCYTES 11.3 (L) 18.0 - 42.0 % MONOCYTES 5.6 4.0 - 12.0 % EOSINOPHILS 0.9 0.0 - 5.0 % BASOPHILS 0.4 0.0 - 1.0 % ABSOLUTE NEUTROPHILS 11.20 (H) 1.60 - 7.70 10(3)/mcL ABSOLUTE LYMPHOCYTES 1.55 1.30 - 3.20 10(3)/mcL ABSOLUTE MONOCYTES 0.77 0.20 - 1.00 10(3)/mcL ABSOLUTE EOSINOPHIL 0.13 0.00 - 0.40 10(3)/mcL ABSOLUTE BASOPHILS 0.05 0.00 - 0.10 10(3)/mcL NRBC PER 100 WBC 0 -CBC with Auto Differential: Result Value Ref Range WBC 6.72 4.00 - 12.00 10(3)/mcL RBC 4.23 3.80 - 5.30 10(6)/mcL HEMOGLOBIN (HGB) 12.6 12.0 - 15.8 g/dL HEMATOCRIT (HCT) 40.6 36.0 - 47.0 % MCV 96.0 82.0 - 96.0 fL MCH 29.8 26.0 - 34.0 pg MCHC 31.0 31.0 - 36.0 g/dL PLATELET COUNT 249 140 - 440 10(3)/mcL RDW 14.1 11.8 - 15.5 % MPV 11.7 9.7 - 12.4 fL NEUTROPHILS 73.2 (H) 47.0 - 73.0 % LYMPHOCYTES 18.2 18.0 - 42.0 % MONOCYTES 6.7 4.0 - 12.0 % EOSINOPHILS 1.6 0.0 - 5.0 % BASOPHILS 0.3 0.0 - 1.0 % ABSOLUTE NEUTROPHILS 4.92 1.60 - 7.70 10(3)/mcL ABSOLUTE LYMPHOCYTES 1.22 (L) 1.30 - 3.20 10(3)/mcL ABSOLUTE MONOCYTES 0.45 0.20 - 1.00 10(3)/mcL ABSOLUTE EOSINOPHIL 0.11 0.00 - 0.40 10(3)/mcL ABSOLUTE BASOPHILS 0.02 0.00 - 0.10 10(3)/mcL NRBC PER 100 WBC 0 -CBC with Auto Differential: Result Value Ref Range WBC 6.08 4.00 - 12.00 10(3)/mcL RBC 3.98 3.80 - 5.30 10(6)/mcL HEMOGLOBIN (HGB) 11.9 (L) 12.0 - 15.8 g/dL HEMATOCRIT (HCT) 37.9 36.0 - 47.0 % MCV 95.2 82.0 - 96.0 fL MCH 29.9 26.0 - 34.0 pg MCHC 31.4 31.0 - 36.0 g/dL PLATELET COUNT 169 140 - 440 10(3)/mcL RDW 13.7 11.8 - 15.5 % MPV 11.6 9.7 - 12.4 fL NEUTROPHILS 66.8 47.0 - 73.0 % LYMPHOCYTES 23.5 18.0 - 42.0 % MONOCYTES 6.3 4.0 - 12.0 % EOSINOPHILS 3.1 0.0 - 5.0 % BASOPHILS 0.3 0.0 - 1.0 % ABSOLUTE NEUTROPHILS 4.06 1.60 - 7.70 10(3)/mcL ABSOLUTE LYMPHOCYTES 1.43 1.30 - 3.20 10(3)/mcL ABSOLUTE MONOCYTES 0.38 0.20 - 1.00 10(3)/mcL ABSOLUTE EOSINOPHIL 0.19 0.00 - 0.40 10(3)/mcL ABSOLUTE BASOPHILS 0.02 0.00 - 0.10 10(3)/mcL NRBC PER 100 WBC 0 Critical Care Total time providing critical care: 30-74 minutes Total time providing critical care: 30-74 minutes. This excludes time spent performing separately reportable procedures and services. Clinical Impression 1. Generalized abdominal pain 2. Small bowel obstruction (HCC) ED Course as of Mar 09 616 Sat Feb 20, 2021 1801 Care endorsed oncoming physician Dr. infante for further evaluation and final disposition. [JK] ED Course User Index [JK] Sushil Thrasher MD GRINDER * Kit Gan RN - 02/20/2021 3:26 PM CST Patient is resting in room with call light at bedside. Patient informed about wait time and verbalizes understanding. Patient denies needs at this time and verbalizes understanding that RN will complete hourly rounding. GRINDER * Marisol Rooney RN - 02/20/2021 2:34 PM CST Patient presents to ed via [facility] with co diarrhea, vomiting that began yesterday. Patient co abdominal pain. States pain increased today. Denies known covid exposure. GRINDER * Juliana Pena - 02/20/2021 2:30 PM CST Bed: ED02-01 Expected date: 02/20/21 Expected time: 2:29 PM Means of arrival: Ambulance ([facility]) Comments: [id number] Abd pain, nausea/vomiting/diarrhea GRINDER documented in this encounter Miscellaneous Notes * Interdisciplinary - Sayra López RN - 02/22/2021 5:15 PM CST Pt condition stable on discharge. No nausea or emesis c/o. Discharged to home per family vehicle. Belongings sent with patient. GRINDER * Interdisciplinary - Dasia Coello RD - 02/22/2021 12:35 PM CST ASSESSMENT: Nutrition Assessment triggered by consult for obesity. PROBLEM: Overweight/obese related to elevated BMI as evidenced by BMI >40. Principal Problem: SBO (small bowel obstruction) (HCC) Past Medical History: Past Medical History Positives Diagnosis Date ??? [...] obstruction) (HCC) 09/2018 ??? Vitamin D deficiency Diet: DIET NPO EFFECTIVE NOW, NGT to suction Chew/swallow: no issues Intake Adequacy: decreased IV's: NaCL Skin/Wound: none Labs noted: 02/22/21-BS=80, K=3.3; 02/21/21-albumin=4.0, K=3.4 Meds noted: pepcid, zofran Education needs: discussed home diet Handout: Healthy Weight Loss; pinned-Calorie Counting for Wt Loss Height: Ht Readings from Last 1 Encounters: 02/20/21 5' 2 (1.575 m) Weight: Wt Readings from Last 1 Encounters: 02/20/21 262 lb 12.8 oz (119.2 kg) BMI weight range for height: 103-135# BMI: Body mass index is 48.07 kg/m??. Stated home wt: 259# EMR wt Hx: 245# [facility] 233# -[facility]2019 [facility]) These criteria indicative of obesity: BMI >40 NEEDS:(based on adjusted BW of 148#) Calories: 1700 (25kcal/kg) Protein: 67-80gm(1-1.2gm/kg) Fluid: 1700-2000ml GOAL: nutrition adequacy INTERVENTION: consult-surgery; NGT to suction; 02/22/21-NPO day #2; Pt has been getting weekly injections & these shots have been decreasing her appetite; She reports a 14# weight loss since injections started 2 months ago; eats 2-3 meals/day, but eatingless; Has increased exercise by walking more often; Avoids refined CHO (is easier now that she is living on her own); Eats limited amounts of fruits & avoids raw vegetables, due to GI issues; Pt states she wants to continue with weight decline once out of hospital, nutrition information provided. Reassess: 02/24/[address] GRINDER * Pb Santiago RN - 02/22/2021 5:00 AM CST Patient resting in bed, alarm active and audible. Pt complaints of pain medicated per MAR. Pt denies SOB per shift. IV fluids infusing per shift. NG to low intermittent suction. Call light in reach, will continue to monitor. GRINDER * Pb Santiago RN - 02/21/2021 5:00 AM CST Patient resting in bed, alarm active and audible. Pt complaints of pain medicated per MAR. Pt denies SOB per shift. NG tube to low intermittent suction. Pt complains of nausea, medicated per MAR. Unable to obtain morning labs, will notify oncoming RN. Call light in reach, will continue to monitor. GRINDER * Pb Santiago RN - 02/20/2021 9:00 PM CST Patient to floor, ambulated to restroom with SBA. Pt vomiting, will start NG. IV fluids initiated. Call light in reach, will continue to monitor. GRINDER documented in this encounter Plan of Treatment Upcoming Encounters Date Type Department Care Team (Late st Contact Info) Description 03/27/2024 8:30 AM EDGE GRINDER [facility] [address] [place] [address] Burt Eastman MD [address] [address] 03/27/2024 8:30 AM EDGE GRINDER - 03/27/2024 9:00 AM EDGE GRINDER [facility] [address] [place] [address] Burt Eastman MD [address] [address] COLONOSCOPY 04/09/2024 1:15 PM EDGE GRINDER Office Visit [facility] - Pulmonology & Sleep Medicine [facility] ([facility]3] [address] [place] [address] Baron Vergara MD [address] [place] [address] Scheduled Orders Name Type Priority Associated Diagnoses Orde r Schedule Pulse Oximetry, Spot PFT Routine WITH VITALS until discontinued starting 02/20/2021 Scheduled Procedures Name Priority Associated Diagnoses Date/Ti me COLONOSCOPY HISTORY OF COLON POLYPS 03/27/2024 8:30 AM EDGE GRINDER documented as of this encounter Procedures Procedure Name Priority Date/Time Associated Diagnosis Comments XR SMALL BOWEL FOLLOW THROUGH Routine 02/22/2021 11:53 AM EDGE GRINDER CBC WITH AUTO DIFFERENTIAL Routine 02/22/2021 7:50 AM EDGE GRINDER LACTIC ACID (LACTATE) Routine 02/22/2021 7:50 AM EDGE GRINDER COMPLETE BLOOD COUNT (CBC) WITH DIFF Routine 02/22/2021 7:50 AM EDGE GRINDER BASIC METABOLIC PANEL W/ CALCIUM TOTAL Routine 02/22/2021 7:50 AM EDGE GRINDER CBC WITH AUTO DIFFERENTIAL STAT 02/21/2021 10:55 AM [facility] GR[facility]ER THYROID STIMULATING HORMONE (TSH) STAT 02/21/2021 10:55 AM [facility] LIPID PANEL STAT 02/21/2021 10:55 AM [facility] COMPLETE BLOOD COUNT (CBC) WITH DIFF STAT 02/21/2021 10:55 AM [facility] BASIC METABOLIC PANEL W/ CALCIUM TOTAL STAT 02/21/2021 10:55 AM [facility] XR ABDOMINAL SERIES WITH CHEST VIEW Routine 02/21/2021 7:10 AM [facility] XR CHEST SINGLE VIEW PORTABLE STAT 02/20/2021 11:49 PM [facility]ER SARS-COV-2 BY MOLECULAR STAT 02/20/2021 7:[address] ABDOMEN PELVIS W/ CONTRAST STAT 02/20/2021 6:31 PM [facility] CBC WITH AUTO DIFFERENTIAL STAT 02/20/2021 4:48 PM [facility] LIPASE STAT 02/20/2021 4:48 PM [facility] LACTIC ACID (LACTATE) STAT 02/20/2021 4:48 PM [facility] CMP (COMPREHENSIVE METABOLIC PANEL) STAT 02/20/2021 4:48 PM [facility] COMPLETE BLOOD COUNT (CBC) WITH DIFF STAT 02/20/2021 4:48 PM [facility] documented in this encounter Results * XR SMALL BOWEL FOLLOW THROUGH (02/22/2021 11:53 AM [facility]ER) Anatomical Region Laterality Modality GI, Abdomen N/A Digital Radiogra phy 02/22/2021 12:5 4 PM [facility] Impressions 02/22/2021 12:56 PM [facility] IMPRESSION: ?? No evidence of small-bowel obstruction. ??Findings likely represent an ileus. Narrative 02/22/2021 12:56 PM [facility] EXAM DESCRIPTION: ?? XR SMALL BOWEL FOLLOW THROUGH REASON FOR STUDY: ?? small bowel obstruction COMPARISON: ?? None FLUOROSCOPY TIME/IMAGE COUNT: Fluoro Time: ?? None applicable Image Count: ?? 2 PROCEDURE: Initial activities director scouting image of abdomen acquired, followed by administration of ?? Gastrografin ??oral contrast. ??Serial radiographic images acquired. ??Fluoroscopic images recorded of the terminal ileum and other indicated areas. ??Compression spot images obtained where possible. ?? FINDINGS: Contrast is noted within the colon at 2 hours excluding obstruction. ??There is mild dilatation which may represent an ileus. THIS IS AN ELECTRONICALLY VERIFIED FINAL REPORT 02/22/2021 12:54 PM - Electronically signed by ??Chepe Cat M.D. NC: CHRISTY D: ??02/22/2021 12:54 PM T: ??02/22/2021 12:54 PM Report ID: [id number] Reading Location: ??[id number] Procedure Note Chepe Cat MD - 02/22/2021 EXAM DESCRIPTION: XR SMALL BOWEL FOLLOW THROUGH REASON FOR STUDY: small bowel obstruction COMPARISON: None FLUOROSCOPY TIME/IMAGE COUNT: Fluoro Time: None applicable Image Count: 2 PROCEDURE: Initial activities director scouting image of abdomen acquired, followed by administration of Gastrografin oral contrast. Serial radiographic images acquired. Fluoroscopic images recorded of the terminal ileum and other indicated areas. Compression spot images obtained where possible. FINDINGS: Contrast is noted within the colon at 2 hours excluding obstruction. There is mild dilatation which may represent an ileus. THIS IS AN ELECTRONICALLY VERIFIED FINAL REPORT 02/22/2021 12:54 PM - Electronically signed by Chepe Cat M.D. NC: CHRISTY Report ID: [id number] Reading Location: [id number] IMPRESSION: No evidence of small-bowel obstruction. Findings likely represent an ileus. Sedrick Ramirez Jr., MD IM FLUOROSCOPY ORDERABLES Final Result * (ABNORMAL) CBC with Auto Differential (02/22/2021 7:50 AM [facility]ER) Only the most recent of3 resultswithin the time period is included. WBC 6.08 4.00 - 12.00 10(3)/mcL 02/22/2021 8:[address] [facility] RBC 3.98 3.80 - 5.30 10(6)/mcL 02/22/2021 8:[address] [facility] HEMOGLOBIN (HGB) 11.9(L) 12.0 - 15.8 g/dL 02/22/2021 8:[address] [facility] HEMATOCRIT (HCT) 37.9 36.0 - 47.0 % 02/22/2021 8:[address] [facility] MCV 95.2 82.0 - 96.0 fL 02/22/2021 8:[address] [facility] MCH 29.9 26.0 - 34.0 pg 02/22/2021 8:[address] [facility] MCHC 31.4 31.0 - 36.0 g/dL 02/22/2021 8:[address] [facility] PLATELET COUNT 169 140 - 440 10(3)/mcL 02/22/2021 8:[address] [facility] RDW 13.7 11.8 - 15.5 % 02/22/2021 8:[address] [facility] MPV 11.6 9.7 - 12.4 fL 02/22/2021 8:[address] [facility] NEUTROPHILS 66.8 47.0 - 73.0 % 02/22/2021 8:01 AM [facility] LYMPHOCYTES 23.5 18.0 - 42.0 % 02/22/2021 8:[address] [facility] MONOCYTES 6.3 4.0 - 12.0 % 02/22/2021 8:[address] [facility] EOSINOPHILS 3.1 0.0 - 5.0 % 02/22/2021 8:01 AM [facility] BASOPHILS 0.3 0.0 - 1.0 % 02/22/2021 8:[address] [facility] ABSOLUTE NEUTROPHILS 4.06 1.60 - 7.70 10(3)/[facility] 02/22/2021 8:[address] [facility] ABSOLUTE LYMPHOCYTES 1.43 1.30 - 3.20 10(3)/[facility] 02/22/2021 8:[address] [facility] ABSOLUTE MONOCYTES 0.38 0.20 - 1.00 10(3)/[facility] 02/22/2021 8:[address] [facility] ABSOLUTE EOSINOPHIL 0.19 0.00 - 0.40 10(3)/[facility] 02/22/2021 8:[address] [facility] ABSOLUTE BASOPHILS 0.02 0.00 - 0.10 10(3)/[facility] 02/22/2021 8:[address] [facility] NRBC PER 100 WBC 0 02/23/20 8:[address] [facility] Blood BLOOD SPECIMEN / Unknown Venipuncture / Unknown 02/22/2021 7:50 AM [facility] 02/22/2021 7:57 AM [facility] us Alicia Sweet MD HEMATOLOGY ORDERABLES Final R esult [facility] [place] [address] * Lactic Acid (Lactate) (02/22/2021 7:50 AM [facility]) Only the most recent of2 resultswithin the time period is included. LACTIC ACID 0.6 0.5 - 2.0 mmol/L 02/22/2021 8:24 AM [facility] Blood Venipuncture / Unknown 02/22/2021 7:50 AM [facility] 02/22/2021 7:57 AM [facility] Alicia Sweet MD CHEMISTRY ORDERABLES Final Re sult [facility] [place] [address] * (ABNORMAL) BMP AM (02/22/2021 7:50 AM [facility]) Only the most recent of2 resultswithin the time period is included. SODIUM 142 136 - 144 mmol/L 02/22/2021 8:[address] [facility] POTASSIUM 3.3(L) 3.5 - 5.1 mmol/L 02/22/2021 8:[address] [facility] CHLORIDE 108 100 - 110 mmol/L 02/22/2021 8:[address] [facility] CO2, VENOUS 23 22 - 32 mmol/L 02/22/2021 8:[address] [facility] ANION GAP 14.3 8.0 - 20.0 mmol/L 02/22/2021 8:[address] [facility] GLUCOSE 80 70 - 99 mg/dL 02/22/2021 8:[address] [facility] BUN 13 6 - 20 mg/dL 02/22/2021 8:[address] [facility] CREATININE, BLOOD 0.63 0.60 - 1.10 mg/dL 02/22/2021 8:[address] [facility] BUN/CREATININE RATIO 21(H) 12 - 20 ratio 02/22/2021 8:[address] [facility] CALCIUM 8.3(L) 8.9 - 10.3 mg/dL 02/22/2021 8:35 AM [facility] GFR, EST. NONAFRICAN >60 >=60 02/22/2021 8:35 AM [facility] GFR, EST. >60 >=60 02/22/2021 8:35 AM [facility] Comment: Creatinine Clearance is the preferred criteria for selecting drug dose adjustments in renally impaired patients. ??The GFR is provided as additional pertinent clinical information. GFR is reported in mL/min/1.73 sq m. Blood BLOOD SPECIMEN / Unknown Venipuncture / Unknown 02/22/2021 7:50 AM [facility] 02/22/2021 7:57 AM [facility] Alicia Sweet MD CHEMISTRY ORDERABLES Final Re sult Performing Organization Address [facility]/ZIP Co de Phone Number [facility] [place] [address] * Thyroid Stimulating Hormone (TSH) (02/21/2021 10:55 AM ED[facility]ER) Pathologist [facility] TSH 1.490 0.270 - 4.200 mIU/L 02/21/2021 11:42 AM [facility] Blood Venipuncture / Unknown 02/21/2021 10:55 AM [facility] 02/21/2021 11:13 AM [facility] us Eleanor Whittaker APRN, CNP CHEMISTRY ORDERABLES Final Result Performing Organization Address [facility]/ZIP Co de Phone Number [facility] [place] [address] * (ABNORMAL) Lipid Panel (02/21/2021 10:55 AM [facility]ER) CHOLESTEROL 131 <=200 mg/dL 02/21/2021 11:35 AM [facility] TRIGLYCERIDES 203(H) <150 mg/dL 02/21/2021 11:35 AM [facility] HDL CHOLESTEROL 27.6(L) >40 mg/dL 11:35 AM [facility] LDL 63 5 - 130 mg/dL 02/21/2021 11:35 AM [facility] VLDL 41 5 - 55 mg/dL 02/21/2021 11:35 AM [facility] CHOL/HDL RATIO 4.7(H) 0.0 - 4.4 02/21/2021 11:35 AM [facility] NON-HDL CHOLESTEROL 103.4 <130 mg/dL 02/21/2021 11:35 AM [facility] Blood Venipuncture / Unknown 02/21/2021 10:55 AM [facility]ER 02/21/2021 11:12 AM [facility]ER us Eleanor Whittaker BLAST FURNACE SUPERVISOR, [employer]S PICKER CHEMISTRY ORDERABLES Final Result [facility] [place] [address] * XR ABDOMINAL SERIES WITH CHEST VIEW (02/21/2021 7:10 AM [facility]ER) Anatomical Region Laterality Modality Abdomen N/A Digital Radiogra phy 02/21/2021 7:18 AM [facility] Impressions 02/21/2021 7:21 AM [facility]ER IMPRESSION: ?? 1. ?? Low lung volumes with mild patchy bibasilar airspace opacities, which is likely related to subsegmental atelectasis and scarring. ?? No definite evidence of focal consolidation. 2. ?? Redemonstration of small bowel dilatation, grossly similar to the prior study, and remains concerning for small bowel obstruction. Follow-up is recommended as clinically indicated. Narrative 02/21/2021 7:21 AM [facility]ER EXAM DESCRIPTION: ?? XR ABDOMINAL SERIES WITH CHEST VIEW REASON FOR STUDY: ?? sbo ??patient was admitted on 02/20/2021 with diarrhea and vomiting, which began on 02/19/2021. ??Abdominal pain. TECHNIQUE: ??Frontal chest, supine abdomen and upright/decubitus ?? abdomen radiographic views acquired. COMPARISON: ?? 02/20/2021 FINDINGS: LUNGS/PLEURA: ?? There are low lung volumes. ??There are mild patchy bibasilar airspace opacities. ??There is no definite evidence of focal consolidation or pleural effusion. HEART/MEDIASTINUM: ?? The heart size is accentuated by low lung volumes. ??The pulmonary vasculature mediastinum are grossly stable. FREE-AIR: ?? There is no definite evidence of free air under the diaphragm. ?? BOWEL GAS PATTERN: ?? There is redemonstration of small bowel dilatation, which is grossly similar to the prior study. ??There is air and fecal debris noted in the colon. ??There is contrast noted in the urinary bladder, which is compatible with recent CT IV contrast administration.. ?? SOFT TISSUES: ?? No significant abnormal calcifications. ?? HARDWARE/LINES/TUBES: ?? Enteric tube is noted with its distal tip overlying the expected region of stomach. ??Postsurgical clips are noted in the right upper quadrant the abdomen. BONES: ?? No significant abnormality. OTHER: ?? No other significant finding. ?? THIS IS AN ELECTRONICALLY VERIFIED FINAL REPORT 02/21/2021 7:18 AM - Electronically signed by ??Sadia Montoya D.O. PS: PS D: ??02/21/2021 7:18 AM T: ??02/21/2021 7:18 AM Report ID: [id number] Reading Location: ??[id number] Procedure Note Sadia Montoya DO - 02/21/2021 EXAM DESCRIPTION: XR ABDOMINAL SERIES WITH CHEST VIEW REASON FOR STUDY: sbo patient was admitted on 02/20/2021 with diarrhea and vomiting, which began on 02/19/2021. Abdominal pain. TECHNIQUE: Frontal chest, supine abdomen and upright/decubitus abdomen radiographic views acquired. COMPARISON: 02/20/2021 FINDINGS: LUNGS/PLEURA: There are low lung volumes. There are mild patchy bibasilar airspace opacities. There is no definite evidence of focal consolidation or pleural effusion. HEART/MEDIASTINUM: The heart size is accentuated by low lung volumes. The pulmonary vasculature mediastinum are grossly stable. FREE-AIR: There is no definite evidence of free air under the diaphragm. BOWEL GAS PATTERN: There is redemonstration of small bowel dilatation, which is grossly similar to the prior study. There is air and fecal debris noted in the colon. There is contrast noted in the urinary bladder, which is compatible with recent CT IV contrast administration.. SOFT TISSUES: No significant abnormal calcifications. HARDWARE/LINES/TUBES: Enteric tube is noted with its distal tip overlying the expected region of stomach. Postsurgical clips are noted in the right upper quadrant the abdomen. BONES: No significant abnormality. OTHER: No other significant finding. THIS IS AN ELECTRONICALLY VERIFIED FINAL REPORT 02/21/2021 7:18 AM - Electronically signed by Sadia Montoya D.O. PS: PS Report ID: [id number] Reading Location: [id number] IMPRESSION: 1. Low lung volumes with mild patchy bibasilar airspace opacities, which is likely related to subsegmental atelectasis and scarring. No definite evidence of focal consolidation. 2. Redemonstration of small bowel dilatation, grossly similar to the prior study, and remains concerning for small bowel obstruction. Follow-up is recommended as clinically indicated. us Eleanor Whittaker APRN, DAVID IMG DIAGNOSTIC ORDERA BLES Final Result * XR CHEST SINGLE VIEW PORTABLE (02/20/2021 11:49 PM [facility]ER) Anatomical Region Laterality Modality Chest N/A Digital Radiogra phy 02/20/2021 11:5 6 PM [facility]ER Impressions 02/20/2021 11:59 PM [facility]ER IMPRESSION: 1. ?? No acute cardiopulmonary disease. 2. ??Nasogastric tube is not well seen distally, possibly coiled in the gastric body. Narrative 02/20/2021 11:59 PM [facility]ER EXAM DESCRIPTION: ?? XR CHEST SINGLE VIEW PORTABLE REASON FOR STUDY: ?? Status post nasogastric tube placement TECHNIQUE: ?? Frontal ??radiographic view of the chest acquired. COMPARISON: ?? None available. FINDINGS: LUNGS/PLEURA: ?? No focal consolidation or pneumothorax. No pleural effusion. HEART/MEDIASTINUM: ?? Heart size is normal. Normal mediastinal and hilar contours. HARDWARE/LINES/TUBES: ?? Nasogastric tube tip is now well seen, possibly coiled within the body of the stomach. BONES: ?? No acute findings. OTHER: ?? Marked distension of the stomach noted. THIS IS AN ELECTRONICALLY VERIFIED FINAL REPORT 02/20/2021 11:56 PM - Electronically signed by ??Lavelle Kim M.D. ML: ML D: ??02/20/2021 11:56 PM T: ??02/20/2021 11:56 PM Report ID: [id number] Reading Location: ??[id number] Procedure Note Lavelle Kim MD - 02/20/2021 EXAM DESCRIPTION: XR CHEST SINGLE VIEW PORTABLE REASON FOR STUDY: Status post nasogastric tube placement TECHNIQUE: Frontal radiographic view of the chest acquired. COMPARISON: None available. FINDINGS: LUNGS/PLEURA: No focal consolidation or pneumothorax. No pleural effusion. HEART/MEDIASTINUM: Heart size is normal. Normal mediastinal and hilar contours. HARDWARE/LINES/TUBES: Nasogastric tube tip is now well seen, possibly coiled within the body of the stomach. BONES: No acute findings. OTHER: Marked distension of the stomach noted. THIS IS AN ELECTRONICALLY VERIFIED FINAL REPORT 02/20/2021 11:56 PM - Electronically signed by Lavelle Kim M.D. ML: ML Report ID: [id number] Reading Location: [id number] IMPRESSION: 1. No acute cardiopulmonary disease. 2. Nasogastric tube is not well seen distally, possibly coiled in the gastric body. Eleanor Whittaker BLAST FURNACE SUPERVISOR, [employer]S PICKER IMG DIAGNOSTIC ORDERA BLES Final Result * SARS-COV-2 BY MOLECULAR (02/20/2021 7:46 PM EDGE GR[facility]ER) SARSCOV2 NOT DETECTED (Referenc e Range for this test is Not Detected) [facility] ID NOW 02/20/2021 8:15 PM [facility]ER [facility] Comment:This test was perfor med by a MOLECULAR, NON-PCR method Other NASAL STRUCTURE / Unknown Non-Phlebotomy Collection / Unknown 02/20/2021 7:46 PM [facility]ER 02/20/2021 7:51 PM [facility]ER Narrative [facility] - 02/20/2021 8:15 PM [facility]ER This test has been authorized by the [...] information for Clinicians can be found at: https://www.fda.gov/media/936584/download Additional information for Patients can be found at: https://www.fda.gov/media/388006/download Mj Infante MD MICROBIOLOGY - GENERAL ORDERA BLES Final Result Performing Organization Address City/State/[facility] Co de Phone Number [facility] [place] [address] * CT ABDOMEN PELVIS W/ CONTRAST (02/20/2021 6:31 PM ED[facility]ER) Anatomical Region Laterality Modality Abdomen N/A Computed Tomogra phy 02/20/2021 7:29 PM ED[facility]ER Impressions 02/20/2021 7:32 PM [facility]ER IMPRESSION: ?? Findings suspicious for small bowel obstruction with multiple sites transition within the right mid to lower quadrant. ?? Recommend surgical consultation and at minimum subsequent follow-up CT. Small volume free fluid. Additional findings as above. At approximately ??7:23 pm ??EDGE GRINDER on ??02/20/2021 , ??initial attempt was made to contact the referring clinician; this case was discussed in detail with acknowledgement via telephone with Dr. Infante at 7:27 PM. Narrative 02/20/2021 7:32 PM ED[facility]ER EXAM DESCRIPTION: ?? CT ABDOMEN PELVIS W/ CONTRAST REASON FOR STUDY: ?? Abdominal infection suspected Nausea, vomiting, diarrhea Duration = 2 days TECHNIQUE: CT scan of the abdomen and pelvis performed with intravenous and ? oral contrast using helical scanning technique with dynamic intravenous contrast injection. Reconstructed coronal and sagittal MPR images reviewed. All images stored on PACS. Automated exposure control was used as a dose optimization technique for this examination. CONTRAST TYPE/DOSE: 125 cc Isovue 370 injected through the left hand, 20 gauge IV COMPARISON: 10/06/2018 FINDINGS: LOWER CHEST: ?? Bibasilar atelectatic change. ?Visualized lower mediastinum is unremarkable. LIVER: ?? 0.8 cm hypodensity within the peripheral left hepatic lobe, unchanged from prior but too small to characterize. ??3.4 cm hypodensity within the posterior right hepatic lobe, compatible with a cyst. ??No suspicious lesion. GALLBLADDER: ?? Surgically absent. BILE DUCTS: ?? No intrahepatic or extrahepatic ductal dilatation. ?? SPLEEN: ?No focal lesions. PANCREAS: ?? No identified cystic or solid masses. No significant calcifications. No adjacent inflammation or peripancreatic fluid collections. Pancreatic duct not dilated. ADRENALS: ?? Unremarkable. KIDNEYS/URINARY TRACT: ?? No identified significant cystic or solid masses. No visualized stones. No hydronephrosis or hydroureter. Symmetric enhancement. ? Bladder is partially decompressed, limiting evaluation. GI: Evaluation the gastrointestinal tract is limited by lack of distention and bowel prep. ?Esophagus is slightly distended with fluid. ??The stomach is significantly distended. ??Mild thickening the distal gastric wall. ??Diffuse dilatation of the small bowel measuring up to 3.7 cm with multiple sites of transition such as at the anterior right abdomen (axial image 133), and right lower quadrant (axial image 161). ??Colon is partially decompressed PERITONEUM: ?? Small volume free fluid. RETROPERITONEUM: ?? No mass or adenopathy. REPRODUCTIVE: ?? No significant abnormality. VASCULATURE: ?? No abdominal aortic aneurysm. MUSCULOSKELETAL: ?? No acute or aggressive osseous lesion. ?? Anterolisthesis of L5 on S1 by approximately 0.6 cm. ??Multilevel degenerative disc disease, severe at L5-S1. ??Bilateral L5 pars defects. OTHER: ?? No additional significant abnormality. THIS IS AN ELECTRONICALLY VERIFIED FINAL REPORT 02/20/2021 7:29 PM - Electronically signed by ??Garett Cuevas M.D. BG: D: ??02/20/2021 7:29 PM T: ??02/20/2021 7:29 PM Report ID: [id number] Reading Location: ??[id number] Procedure Note Garett Cuevas MD - 02/20/2021 EXAM DESCRIPTION: CT ABDOMEN PELVIS W/ CONTRAST REASON FOR STUDY: Abdominal infection suspected Nausea, vomiting, diarrhea Duration = 2 days TECHNIQUE: CT scan of the abdomen and pelvis performed with intravenous and oral contrast using helical scanning technique with dynamic intravenous contrast injection. Reconstructed coronal and sagittal MPR images reviewed. All images stored on PACS. Automated exposure control was used as a dose optimization technique for this examination. CONTRAST TYPE/DOSE: 125 cc Isovue 370 injected through the left hand, 20 gauge IV COMPARISON: 10/06/2018 FINDINGS: LOWER CHEST: Bibasilar atelectatic change. Visualized lower mediastinum is unremarkable. LIVER: 0.8 cm hypodensity within the peripheral left hepatic lobe, unchanged from prior but too small to characterize. 3.4 cm hypodensity within the posterior right hepatic lobe, compatible with a cyst. No suspicious lesion. GALLBLADDER: Surgically absent. BILE DUCTS: No intrahepatic or extrahepatic ductal dilatation. SPLEEN: No focal lesions. PANCREAS: No identified cystic or solid masses. No significant calcifications. No adjacent inflammation or peripancreatic fluid collections. Pancreatic duct not dilated. ADRENALS: Unremarkable. KIDNEYS/URINARY TRACT: No identified significant cystic or solid masses. No visualized stones. No hydronephrosis or hydroureter. Symmetric enhancement. Bladder is partially decompressed, limiting evaluation. GI: Evaluation the gastrointestinal tract is limited by lack of distention and bowel prep. Esophagus is slightly distended with fluid. The stomach is significantly distended. Mild thickening the distal gastric wall. Diffuse dilatation of the small bowel measuring up to 3.7 cm with multiple sites of transition such as at the anterior right abdomen (axial image 133), and right lower quadrant (axial image 161). Colon is partially decompressed PERITONEUM: Small volume free fluid. RETROPERITONEUM: No mass or adenopathy. REPRODUCTIVE: No significant abnormality. VASCULATURE: No abdominal aortic aneurysm. MUSCULOSKELETAL: No acute or aggressive osseous lesion. Anterolisthesis of L5 on S1 by approximately 0.6 cm. Multilevel degenerative disc disease, severe at L5-S1. Bilateral L5 pars defects. OTHER: No additional significant abnormality. THIS IS AN ELECTRONICALLY VERIFIED FINAL REPORT 02/20/2021 7:29 PM - Electronically signed by Garett Cuevas M.D. BG: BG Report ID: [id number] Reading Location: [id number] IMPRESSION: Findings suspicious for small bowel obstruction with multiple sites transition within the right mid to lower quadrant. Recommend surgical consultation and at minimum subsequent follow-up CT. Small volume free fluid. Additional findings as above. At approximately 7:23 pm EDGE GRINDER on 02/20/2021 , initial attempt was made to contact the referring clinician; this case was discussed in detail with acknowledgement via telephone with Dr. Infante at 7:27 PM. us Sushil Thrasher MD IMG CT ORDERABLES Fin al Result * Lipase (02/20/2021 4:48 PM EDGE GRINDER) Pathologist [facility] LIPASE 31.6 13 - 60 U/L 02/20/2021 5:20 PM EDGE GRINDER [facility] Blood Venipuncture / Unknown 02/20/2021 4:48 PM EDGE GRINDER 02/20/2021 5:00 PM EDGE [facility]ER us Sushil Thrasher MD CHEMISTRY ORDERABLES Final Result [facility] [place] [address] * (ABNORMAL) CMP (Comprehensive Metabolic Panel) (02/20/2021 4:48 PM EDGE GRINDER) Pathologist [facility] SODIUM 140 136 - 144 mmol/L 02/20/2021 5:20 PM EDGE [facility]ER [facility] POTASSIUM 3.4(L) 3.5 - 5.1 mmol/L 02/20/2021 5:20 PM ED[facility]ER [facility] CHLORIDE 105 100 - 110 mmol/L 02/20/2021 5:20 PM EDGE GR[facility]ER [facility] CO2, VENOUS 19(L) 22 - 32 mmol/L 02/20/2021 5:20 PM ED[facility]ER [facility] ANION GAP 19.4 8.0 - 20.0 mmol/L 02/20/2021 5:[address] [facility] GLUCOSE 106(H) 70 - 99 mg/dL 02/20/2021 5:[address] [facility] BUN 22(H) 6 - 20 mg/dL 02/20/2021 5:[address] [facility] CREATININE, BLOOD 0.91 0.60 - 1.10 mg/dL 02/20/2021 5:[address] [facility] BUN/CREATININE RATIO 24(H) 12 - 20 ratio 02/20/2021 5:[address] [facility] [facility] TOTAL PROTEIN 7.6 6.0 - 8.3 g/dL 02/20/2021 5:[address] [facility] ALBUMIN 4.0 3.5 - 5.2 g/dL 02/20/2021 5:[address] [facility] Comment: The colormetric methods used for the determination of Albumin may lead to falsely elevated test results in patients suffering from renal failure or insufficiency due to interference with other proteins. A/G RATIO 1.1 1.0 - 2.0 02/20/2021 5:[address] [facility] CALCIUM 9.7 8.9 - 10.3 mg/dL 02/20/2021 5:[address] [facility] T BILI 0.3 <=1.2 mg/dL 02/20/2021 5:[address] [facility] SGOT (AST) 15 <=32 U/L 02/20/2021 5:[address] [facility] SGPT (ALT) 23 <=41 U/L 02/20/2021 5:[address] [facility] ALKALINE PHOSPHATASE 100 35 - 105 U/L 02/20/2021 5:[address] [facility] GFR, EST. NONAFRICAN >60 >=60 02/20/2021 5:[address] [facility] GFR, EST. >60 >=60 021 5:[address] [facility] Comment: Creatinine Clearance is the preferred criteria for selecting drug dose adjustments in renally impaired patients. ??The GFR is provided as additional pertinent clinical information. GFR is reported in mL/min/1.73 sq m. Blood Venipuncture / Unknown 02/20/2021 4:48 PM [facility] 02/20/2021 5:00 PM [facility] us Sushil Thrasher MD CHEMISTRY ORDERABLES Final Result [facility] [place] [address] documented in this encounter Visit Diagnoses Diagnosis SBO (small bowel obstruction) (HCC)- Primary Unspecified intestinal obstruction Generalized abdominal pain Abdominal pain, generalized Small bowel obstruction (HCC) Unspecified intestinal obstruction GERD (gastroesophageal reflux disease) Esophageal reflux Hypertension Unspecified essential hypertension Hyperlipidemia Other and unspecified hyperlipidemia Depression Depressive disorder, not elsewhere classified Hypothyroid Unspecified hypothyroidism Morbid obesity with BMI of 45.0-49.9, adult (HCC) Bipolar disorder (HCC) Bipolar disorder, unspecified documented in this encounter Administered Medications Inactive Administered Medications - up to 3 most recent administrations Medication Order MAR Action Action Date Dose Rate Site 0.9 % sodium chloride solution at 999 mL/hr, Intravenous, ONCE, 1 dose, On Mon02/20/21 at 1630 New Bag 02/20/2021 4:21 PM [facility] 999 mL/hr 0.9 % sodium chloride solution at 100 mL/hr, Intravenous, CONTINUOUS, Starting on 02/20/21 at 2030, Until 02/22/21 at 2000 New 02/22/2021 8:35 AM [facility] 100 mL/hr New 02/21/2021 9:18 PM [facility] 100 mL/hr New Bag 02/21/2021 5:04 AM [facility] 100 mL/hr acetaminophen (TYLENOL) suppository 650 mg 650 mg, Rectal, EVERY 4 HOURS PRN, Starting on 02/20/21 at 1953, Until 02/22/21 at 1999, Mild pain or more severe pain if patient requests, Fever, If patient is taking oral intake without complications and both PO/VT orders are active, administer through the oral route. ARIPiprazole (ABILIFY) tablet 20 mg 20 mg, Per NG tube, DAILY, First dose on 02/21/21 at 0900, Until Discontinued Given 02/21/2021 9:44 AM [facility] 20 mg diatrizoate meglumine-sodium (GASTROGRAFIN) 66-10 % solution 180 mL 180 mL, Oral, ONCE, 1 dose, On 02/22/21 at 1000 Given 02/22/2021 9:30 AM [facility] 180 mL dicyclomine (BENTYL) injection 20 mg 20 mg, Intramuscular, ONCE, 1 dose, On 02/20/21 at 1830 Given 02/20/2021 6:10 PM [facility] 20 mg Right Ventrogluteal enoxaparin (LOVENOX) injection 40 mg 40 mg, Subcutaneous, EVERY 12 HOURS SCHEDULED, First dose on 02/20/21 at 2100, Until DiscontinuedIndications:Prophyl axis of Venous Thromboembolism Given 02/22/2021 11:19 AM [facility] 40 mg Right Abdomen Given 02/21/2021 9:18 PM [facility] 40 mg Ri ght Abdomen Given 02/21/2021 9:45 AM [facility] 40 mg Ri ght Abdomen famotidine (PEPCID) injection 20 mg 20 mg, Intravenous, 2 TIMES DAILY, First dose on 02/20/21 at 2100, Until Discontinued, Indications: Symptomatic Gastroesophageal Reflux DiseaseIndications:Symptomatic Gastroesophageal Reflux Disease Given 02/22/2021 11:18 AM [facility] 20 mg Given 02/21/2021 9:18 PM [facility] 20 mg Given 02/21/2021 9:44 AM [facility] 20 mg hydrALAZINE (APRESOLINE) injection 5 mg 5 mg, Intravenous, EVERY 8 HOURS PRN, Starting on 02/21/21 at 1655, Until Mon02/22/21 at 2000, SBP x>160 OR DBP x>100 HYDROmorphone (DILAUDID) injection 1 mg 1 mg, Intravenous, EVERY 4 HOURS PRN, Starting on 02/21/21 at 1100, Until Mon02/22/21 at 2000, Moderate pain or more severe pain if patient requests, Severe pain, If pain not effectively managed, then contact provider to discuss possibly 1) adding scheduled opioid dosing or non-opioid pain treatments, 2) increasing dosage, or 3) changing to [employer] SUPER[employer]ENDENT. iopamidol (ISOVUE-370) 76 % injection 124 mL 124 mL, Intravenous, ONCE, 1 dose, On 02/20/21 at 1900 Given 02/20/2021 6:30 PM [facility] 124 mL ketorolac (TORADOL) injection 15 mg 15 mg, Intravenous, EVERY 6 HOURS PRN, Starting on 02/20/21 at 1958, Until 02/22/21 at 2000, Mild pain or more severe pain if patient requests Given 02/22/2021 11:18 AM [facility] 15 mg Given 02/22/2021 4:28 AM [facility] 15 mg Given 02/21/2021 10:25 PM [facility] 15 mg levothyroxine (SYNTHROID) tablet 50 mcg 50 mcg, Per NG tube, EVERY MORNING BEFORE BREAKFAST, First dose on 02/21/21 at 0730, Until DiscontinuedIndications:Hypothyroidism Given 02/21/2021 9:45 AM [facility] 50 mc g losartan (COZAAR) tablet 50 mg 50 mg, Per NG tube, DAILY, First dose on 02/21/21 at 0900, Until Discontinued Given 02/21/2021 9:45 AM [facility] 50 mg melatonin tablet 6 mg 6 mg, Oral, NIGHTLY PRN, Starting on 02/20/21 at 1953, Until 02/21/21 at 1101, Other, Sleep Given 02/21/2021 12:30 AM [facility] 6 mg metoclopramide (REGLAN) injection 5 mg 5 mg, Intravenous, EVERY 8 HOURS PRN, Starting on 02/21/21 at 1101, Until 02/22/21 at 2000, Nausea - 3rd line metoprolol Succinate (TOPROL-XL) XL tablet 25 mg 25 mg, Oral, DAILY, First dose on 02/21/21 at 0900, Until Discontinued, Do not crush. Given 02/21/2021 9:45 AM [facility] 25 mg morphine sulfate (PF) injection 4 mg 4 mg, Intravenous, ONCE, 1 dose, On 02/20/21 at 1630 Given 02/20/2021 4:20 PM [facility] 4 mg naproxen (NAPROSYN) tablet 500 mg 500 mg, Per NG tube, 2 TIMES DAILY, First dose on 02/20/21 at 2330, Until Discontinued Given 02/21/2021 9:45 AM [facility] 500 mg ondansetron (ZOFRAN) injection 4 mg 4 mg, Intravenous, ONCE, 1 dose, On 02/20/21 at 1630 Given 02/20/2021 4:19 PM [facility] 4 mg ondansetron (ZOFRAN) injection 4 mg 4 mg, Intravenous, EVERY 6 HOURS PRN, Starting on 02/20/21 at 1953, Until 02/22/21 at 2000, Nausea - 1st line, 1. First Line Antiemetic. 2. Use Injection only if patient unable to tolerate oral medications. Given 02/21/2021 1:09 AM [facility] 4 mg pregabalin (LYRICA) capsule 75 mg 75 mg, Per NG tube, 2 TIMES DAILY, First dose on 02/20/21 at 2330, Until Discontinued Given 02/21/2021 9:45 AM [facility] 75 mg Given 02/21/2021 12:28 AM [facility] 75 mg Prochlorperazine Edisylate (COMPAZINE) injection 5 mg 5 mg, Intravenous, EVERY 6 HOURS PRN, Starting on 02/20/21 at 1953, Until 02/22/21 at 2000, Nausea - 2nd line, Second Line Antiemetic Give if nausea/vomiting recurs after ondansetron. Given 02/20/2021 8:37 PM [facility] 5 mg sertraline (ZOLOFT) tablet 150 mg 150 mg, Per NG tube, DAILY, First dose on 02/21/21 at 0900, Until Discontinued Given 02/21/2021 9:45 AM [facility] 150 mg triamterene-hydrochlorothiazide (MAXZIDE) 37.5-25 MG per tablet 1 Tablet 1 Tablet, Per NG tube, DAILY, First dose on 02/21/21 at 0900, Until Discontinued Given 02/21/2021 9:45 AM [facility] 1 T ablet documented in this encounter Active and Recently Administered Medications Times are shown in [facility]. Scheduled Medication Order 02/20/2021 02/21/2021 02/22/2021 0.9 % sodium chloride solution (COMPLETED) at 999 mL/hr, Intravenous, ONCE, 1 dose, On 02/20/21 at 1630 1621 (New Bag - Provider: Kit Gan, AGUILA)2013 (Stopped - Provider: Kit Gan, AGUILA) ARIPiprazole (ABILIFY) tablet 20 mg (CANCELED) 20 mg, Per NG tube, DAILY, First dose on 02/21/21 at 0900, Until Discontinued 09 (Given - Provider: Sayra López RN) diatrizoate meglumine-sodium (GASTROGRAFIN) 66-10 % solution 180 mL (COMPLETED) 180 mL, Oral, ONCE, 1 dose, On 02/22/21 at 1000 0930 (Given - Provider: Ilya Hdz, RT(R) (CT) - Comment: Via NG tube) dicyclomine (BENTYL) injection 20 mg (COMPLETED) 20 mg, Intramuscular, ONCE, 1 dose, On 02/20/21 at 1830 1810 (Given - Provider: Kit Gan RN) enoxaparin (LOVENOX) injection 40 mg 40 mg, Subcutaneous, EVERY 12 HOURS SCHEDULED, First dose on 02/20/21 at 2100, Until Discontinued 2052 (Given - Provider: Kit Gan RN) 944 (Given - Provider: Sayra López RN)2117 (Given - Provider: Pb Rodriguez, AGUILA) 1118 (Given - Provider: Sayra López RN) famotidine (PEPCID) injection 20 mg 20 mg, Intravenous, 2 TIMES DAILY, First dose on 02/20/21 at 2100, Until Discontinued, Indications: Symptomatic Gastroesophageal Reflux Disease 2051 (Given - Provider: Kit Gan RN) 943 (Given - Provider: Sayra López RN)2117 (Given - Provider: Pb Rodriguez RN) 1117 (Given - Provider: Sayra López RN) iopamidol (ISOVUE-370) 76 % injection 124 mL (COMPLETED) 124 mL, Intravenous, ONCE, 1 dose, On 02/20/21 at 1900 1830 (Given - Provider: Maria Bruce, RTR) levothyroxine (SYNTHROID) tablet 50 mcg (CANCELED) 50 mcg, Per NG tube, EVERY MORNING BEFORE BREAKFAST, First dose on 02/21/21 at 0730, Until Discontinued 944 (Given - Provider: Sayra López RN) losartan (COZAAR) tablet 50 mg (CANCELED) 50 mg, Per NG tube, DAILY, First dose on 02/21/21 at 0900, Until Discontinued 944 (Given - Provider: Sayra López RN) metoprolol Succinate (TOPROL-XL) XL tablet 25 mg (CANCELED) 25 mg, Oral, DAILY, First dose on 02/21/21 at 0900, Until Discontinued, Do not crush. 0945 (Given - Provider: Sayra López RN) morphine sulfate (PF) injection 4 mg (COMPLETED) 4 mg, Intravenous, ONCE, 1 dose, On 02/20/21 at 1630 1620 (Given - Provider: Kit Gan RN) naproxen (NAPROSYN) tablet 500 mg (CANCELED) 500 mg, Per NG tube, 2 TIMES DAILY, First dose on 02/20/21 at 2330, Until Discontinued 2330 (Not Given - Provider: Pb Rodriguez RN - Reason: Patient/family refused) 0945 (Given - Provider: Sayra López RN) ondansetron (ZOFRAN) injection 4 mg (COMPLETED) 4 mg, Intravenous, ONCE, 1 dose, On 02/20/21 at 1630 1619 (Given - Provider: Kit Gan RN) pregabalin (LYRICA) capsule 75 mg (CANCELED) 75 mg, Per NG tube, 2 TIMES DAILY, First dose on 02/20/21 at 2330, Until Discontinued 0028 (Given - Provider: Pb Rodriguez RN)0945 (Given - Provider: Sayra López RN) sertraline (ZOLOFT) tablet 150 mg (CANCELED) 150 mg, Per NG tube, DAILY, First dose on 02/21/21 at 0900, Until Discontinued 0945 (Given - Provider: Sayra López RN) triamterene-hydrochlorothi azide (MAXZIDE) 37.5-25 MG per tablet 1 Tablet (CANCELED) 1 Tablet, Per NG tube, DAILY, First dose on 02/21/21 at 0900, Until Discontinued 0945 (Given - Provider: Sayra López RN) Continuous Medication Order 02/20/2021 02/21/2021 02/22/2021 0.9 % sodium chloride solution at 100 mL/hr, Intravenous, CONTINUOUS, Starting on 02/20/21 at 2030, Until 02/22/21 at 2000 2043 (New Bag - Provider: Kit Gan RN) 0502 (Stopped - Provider: Pb Rodriguez RN)0504 (New Bag - Provider: Pb Rodriguez RN)2118 (New Bag - Provider: Pb Rodriguez RN) 0835 (New Bag - Provider: Savanna Siu RN)1614 (Stopped - Provider: Sayra López, AGUILA) PRN Medication Order 02/20/2021 02/21/2021 02/22/2021 acetaminophen (TYLENOL) suppository 650 mg(Linked Group 1) 650 mg, Rectal, EVERY 4 HOURS PRN, Starting on 02/20/21 at 1953, Until 02/22/21 at 1999, Mild pain or more severe pain if patient requests, Fever, If patient is taking oral intake without complications and both PO/VT orders are active, administer through the oral route. hydrALAZINE (APRESOLINE) injection 5 mg 5 mg, Intravenous, EVERY 8 HOURS PRN, Starting on 02/21/21 at 1655, Until Mon02/22/21 at 1999, SBP x>160 OR DBP x>100 HYDROmorphone (DILAUDID) injection 1 mg 1 mg, Intravenous, EVERY 4 HOURS PRN, Starting on 02/21/21 at 1100, Until Mon02/22/21 at 2000, Moderate pain or more severe pain if patient requests, Severe pain, If pain not effectively managed, then contact provider to discuss possibly 1) adding scheduled opioid dosing or non-opioid pain treatments, 2) increasing dosage, or 3) changing to [employer] SU[employer]ENDENT. ketorolac (TORADOL) injection 15 mg 15 mg, Intravenous, EVERY 6 HOURS PRN, Starting on 02/20/21 at 1958, Until Mon02/22/21 at 1999, Mild pain or more severe pain if patient requests 0505 (Given - Provider: Pb Rodriguez RN)0944 (Given - Provider: Sayra López, AGUILA)2225 (Given - Provider: Pb Rodriguez RN) 0428 (Given - Provider: Bela Infante RN)1118 (Given - Provider: Sayra López RN) melatonin tablet 6 mg (CANCELED) 6 mg, Oral, NIGHTLY PRN, Starting on 02/20/21 at 1953, Until 02/21/21 at 1101, Other, Sleep 0030 (Given - Provider: Pb Rodriguez AGUILA) metoclopramide (REGLAN) injection 5 mg 5 mg, Intravenous, EVERY 8 HOURS PRN, Starting on 02/21/21 at 1101, Until 02/22/21 at 1999, Nausea - 3rd line ondansetron (ZOFRAN) injection 4 mg(Linked Group 2) 4 mg, Intravenous, EVERY 6 HOURS PRN, Starting on 02/20/21 at 1953, Until 02/22/21 at 1999, Nausea - 1st line, 1. First Line Antiemetic. 2. Use Injection only if patient unable to tolerate oral medications. 108 (Given - Provider: Pb Rodriguez RN) Prochlorperazine Edisylate (COMPAZINE) injection 5 mg 5 mg, Intravenous, EVERY 6 HOURS PRN, Starting on 02/20/21 at 1953, Until 02/22/21 at 1999, Nausea - 2nd line, Second Line Antiemetic Give if nausea/vomiting recurs after ondansetron. 2036 (Given - Provider: Kit Gan RN) Linked Groups Order Group 1: acetaminophen (TYLENOL) tablet 650 mg (CANCELED) 650 mg, Oral, EVERY 4 HOURS PRN, Starting on 02/20/21 at 1953, Until 02/21/21 at 1101, Mild pain or more severe pain if patient requests, Fever, If patient is taking oral intake without complications and both PO/VT orders are active, administer through the oral route. Or acetaminophen (TYLENOL) suppository 650 mgJump to med 650 mg, Rectal, EVERY 4 HOURS PRN, Starting on 02/20/21 at 1953, Until Mon02/22/21 at 1999, Mild pain or more severe pain if patient requests, Fever, If patient is taking oral intake without complications and both PO/VT orders are active, administer through the oral route. Group 2: ondansetron (ZOFRAN-ODT) disintegrating tablet 4 mg (CANCELED) 4 mg, Oral, EVERY 6 HOURS PRN, Starting on 02/20/21 at 1953, Until 02/21/21 at 1101, Nausea - 1st line, 1. First Line Antiemetic. 2. Use PO form unless unable to tolerate PO medications, then use Injection Or ondansetron (ZOFRAN) injection 4 mgJump to med 4 mg, Intravenous, EVERY 6 HOURS PRN, Starting on 02/20/21 at 1953, Until 02/22/21 at 2000, Nausea - 1st line, 1. First Line Antiemetic. 2. Use Injection only if patient unable to tolerate oral medications. 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
--- OUTSIDE RECORDS SUMMARY | 2024-03-03 19:36 | XMS_ITS | CONTINUITY OF CARE DOCUMENT ---
Author Name ruthruth Address Unknown Organization [facility] Address [address] [place] [address] Phone [phone] Care Team Providers Care Log Deck Tender Name Role Phone Kwabena QUICK, Ayush Unavailable [phone] ANDREA QUICK, AKI Unavailable [phone] LUIS QUICK, BALTAZAR Unavailable INSURANCE PROVIDERS Payer name Policy type / Coverage type [place] [employer] [place] [employer] (2) Medicaid [id number]
--- OUTSIDE RECORDS SUMMARY | 2024-03-03 19:36 | XMS_ITS | Data Portability ---
Author Organization [facility]IC[facility]URGRacielTooele H Address [address] [facility] [place] [address] Care Team Providers Care Reliability Technicians Name Role Phone DAJA CARBALLO Primary Care Provider TRUPTI MEJIA [facility] Assessment No assessment recorded. Plan of Treatment Reminders Order Date Submit Date Provider Last Modified By Organization Details Last Modified Time Details Appointments ANY 30 2024 01:00P M Daja Carballo MD Not available Not available Not available Lab HbA1c (hemoglob in A1c), blood 2023 024 nsuthan In-Office Order, Internal Use Only DO Not Attach Compendium DO Not Attach Compendium, Do Not Delete/merge, [id number] 06/01/2023 14:51:31 HbA1c (hemoglob in A1c), blood 2023 024 [facility], [address] [facility] [address], [place], [address], 11/01/2023 07:13:12 lipid panel, serum 2023 024 [facility], [address] [facility], [facility], [place], [address], 11/01/2023 07:13:11 CBC w/ auto diff 2023 024 [facility], [address] [facility] [address], [place], [address], 11/01/2023 07:13:14 CMP, serum or plasma 2023 024 [facility], [address], [place], [address], 11/01/2023 07:13:12 TSH, ultra-sen sitive, serum 2023 024 [facility], [address], [place], [address], 11/01/2023 07:13:13 vaginal pathogens panel, KOSTA+probe , vaginal fluid 2023 024 [facility], [address] [facility], [address], [place], [address], 10/04/2023 04:36:03 Referral gynecolog ic surgery referral - new postmenop ausal bleeding x1 week in patient with prior endometri al biopsy (2016) showing simple endometri al hyperplas ia without atypia. desires hysterect katharina. 2023 024 [facility], [address] [place] [address], [address], 02/02/2024 10:44:36 Procedures None recorded. Surgeries None recorded. Imaging MAMMO, screening , digital, bilateral 2023 [facility] [address] [place] [address], [address], 12/19/2023 11:22:25 Medication Orders metformin ER 500 mg tablet,ex tended release 24 hr 2023 [facility] [address] [place] [address] , [address], [place], [place], [id number], 06/22/2023 11:29:35 albuterol sulfate HFA 90 mcg/actua tion aerosol inhaler [address] , [address], [place], [place], [id number], 06/01/2023 14:26:23 irbesarta n 300 mg tablet 2023 024 [facility], [address] [place] [address] , [address], [place], [place], [id number], 09/29/2023 14:10:43 fluconazo le 150 mg tablet 2023 024 [id number], [address], [place], [place], [id number], 12/05/2023 15:24:46 nystatin 100,000 unit/gram topical powder 2023 [id number], [address], [place], [place], [id number], 10/02/2023 15:35:22 oxycodone 5 mg tablet 2023 024 [id number], [address], [place], [place], [id number], 01/19/2024 13:18:06 fluconazo le 150 mg tablet [email or web address] [facility]813[facility], [address], [place], [place], [id number], 01/19/2024 13:17:00 Patient TargetsNo targets recorded. Patient Instructions Encounter Date Encounter Id Patient Instructions Last Modified By Organization Details Last Modified Time 06/01/2023 [id number] A healthy lifestyle: care instructions nsuthan Not available 06/01/2023 14:25:14 a1c and f/u in2 month nsuthan Not available 06/01/2023 14:28:20 09/29/2023 [id number] f/u in 1 month nsuthan Not available 09/29/2023 12:16:54 12/05/2023 [id number] f/u in 4 month nsuthan Not available 12/05/2023 12:40:32 Reason for Referral Gynecologic Surgery Referral for Postmenopausal bleeding new postmenopausal bleeding x1 week in patient with prior endometrial biopsy (2016) showing simple endometrial hyperplasia without atypia. desires hysterectomy. Referring Physician: Trupti Mejia, Family Medicine, Encounter Date: 01/18/2024 Results Created Date Observation Date Name Description Value Unit Range Abnormal Flag Note LastModifiedBy Organization Detail LastModifiedTime 06/01/19 24 06/01/2023 HbA1c (hemo globi n A1c), blood HbA1c 7.8 Not Available In-Office Order Internal Use Only DO Not Attach Compendium DO Not Attach Compendium, Do Not Delete/merge, [id number] 06/01/2023 14:28:06 10/02/19 24 10/03/2023 NUSWA B VAGIN ITIS PLUS (VG+) atopobium vaginae LOW - 0 score Not Available [facility] ([facility]) [address] [place], [address], 10/04/2023 04:36:03 10/02/19 24 10/03/2023 NUSWA B VAGIN ITIS PLUS (VG+) bvab 2 LOW - 0 score Not Available [facility] ([facility]) [address] [place], [address], 10/04/2023 04:36:03 10/02/19 24 10/03/2023 NUSWA B VAGIN ITIS PLUS (VG+) megasphaera 1 LOW - 0 score Calcu late total score by juan luis g the 3 indiv idual bacte rial vagin osis (BV) marke r score s toget her. Total score is inter prete d as follo ws: Total score 0-1: Indic ates the absen ce of BV. Total score 2: Indet ermin ate for BV. Addit ional clini kathryn data shoul d be evalu ated to estab rima a diagn osis. Total score 3-6: Indic ates the prese nce of BV. Not Available [facility] ([facility]) [address] [facility], [place], [address], 10/04/2023 04:36:03 10/02/19 24 10/03/2023 NUSWA B VAGIN ITIS PLUS (VG+) sharon albicans, KOSTA NEGATI VE negati ve Not Available [facility] ([facility]) [address] [facility], [place], [address], 10/04/2023 04:36:03 10/02/19 24 10/03/2023 NUSWA B VAGIN ITIS PLUS (VG+) sharon glabrata, KOSTA NEGATI VE negati ve Not Available [facility] ([facility]) [address] [facility], [place], [address], 10/04/2023 04:36:03 10/02/19 24 10/04/2023 NUSWA B VAGIN ITIS PLUS (VG+) trich vag by KOSTA NEGATI VE negati ve Not Available [facility] ([facility]) [address] [facility], [place], [address], 10/04/2023 04:36:03 10/02/19 24 10/04/2023 NUSWA B VAGIN ITIS PLUS (VG+) chlamydia trachomatis, KOSTA NEGATI VE negati ve Not Available [facility] ([facility]) [address] [facility], [place], [address], 10/04/2023 04:36:03 10/02/19 24 10/04/2023 NUSWA B VAGIN ITIS PLUS (VG+) neisseria gonorrhoeae, KOSTA NEGATI VE negati ve Not Available [facility] ([facility]) [address] [place], [address], 10/04/2023 04:36:03 10/31/19 24 11/01/2023 LIPID PANEL cholesterol, total 139 mg/dL 100-19 9 Not Available [facility] ([facility]) [address] [place], [address], 11/01/2023 07:13:11 10/31/19 24 11/01/2023 LIPID PANEL triglyceride s 219 mg/dL 0-149 above high normal Not Available [facility] ([facility]) [address] [facility] [place], [address], 11/01/2023 07:13:11 10/31/19 24 11/01/2023 LIPID PANEL HDL cholesterol 36 mg/dL >39 below low normal Not Available [facility] ([facility]) [address] [place], [address], 11/01/2023 07:13:11 10/31/19 24 11/01/2023 LIPID PANEL VLDL cholesterol kathryn 36 mg/dL 5-40 Not Available [facility]) [address] [place], [address], 11/01/2023 07:13:11 10/31/19 24 11/01/2023 LIPID PANEL LDL chol calc ([facility]) 67 mg/dL 0-99 Not Available [facility]) [address] [place], [address], 11/01/2023 07:13:11 10/31/19 24 11/01/2023 COMP. METAB OLIC PANEL (14) glucose 131 mg/dL 70-99 above high normal Not Available [facility] ([facility]) [address] [place], [address], 11/01/2023 07:13:12 10/31/19 24 11/01/2023 COMP. METAB OLIC PANEL (14) BUN 12 mg/dL 6-24 Not Available [facility] ([facility]) [address] [place], [address], 11/01/2023 07:13:12 10/31/19 24 11/01/2023 COMP. METAB OLIC PANEL (14) creatinine 0.69 mg/dL 0.57-1 .00 Not Available [facility] ([facility]) [address], [place], [address], 11/01/2023 07:13:12 10/31/19 24 11/01/2023 COMP. METAB OLIC PANEL (14) eGFR 106 mL/mi n/1.7 3 >59 Not Available [facility] ([facility]) [address], [place], [address], 11/01/2023 07:13:12 10/31/19 24 11/01/2023 COMP. METAB OLIC PANEL (14) BUN/creatini ne ratio 17 9-23 Not Available [facility] ([facility]) [address] [facility], [place], [address], 11/01/2023 07:13:12 10/31/19 24 11/01/2023 COMP. METAB OLIC PANEL (14) sodium 137 mmol/ L 134-14 4 Not Available [facility] ([facility]) [address] [facility], [place], [address], 11/01/2023 07:13:12 10/31/19 24 11/01/2023 COMP. METAB OLIC PANEL (14) potassium 4.5 mmol/ L 3.5-5. 2 Not Available [facility] ([facility]) [address] [facility], [place], [address], 11/01/2023 07:13:12 10/31/19 24 11/01/2023 COMP. METAB OLIC PANEL (14) chloride 95 mmol/ L 96-106 below low normal Not Available [facility] ([place] [facility]) [address] [facility], [place], [address], 11/01/2023 07:13:12 10/31/19 24 11/01/2023 COMP. METAB OLIC PANEL (14) carbon dioxide, total 26 mmol/ L 20-29 Not Available [facility] ([place] [facility]) [address] [facility], [place], [address], 11/01/2023 07:13:12 10/31/19 24 11/01/2023 COMP. METAB OLIC PANEL (14) calcium 9.6 mg/dL 8.7-10 .2 Not Available [facility] ([place] [facility]) [address], [place], [address], 11/01/2023 07:13:12 10/31/19 24 11/01/2023 COMP. METAB OLIC PANEL (14) protein, total 7.0 g/dL 6.0-8. 5 Not Available [facility] ([facility]) [address] [facility], [place], [address], 11/01/2023 07:13:12 10/31/19 24 11/01/2023 COMP. METAB OLIC PANEL (14) albumin 4.2 g/dL 3.9-4. 9 Not Available [facility] ([facility]) [address] [facility], [place], [address], 11/01/2023 07:13:12 10/31/19 24 11/01/2023 COMP. METAB OLIC PANEL (14) globulin, total 2.8 g/dL 1.5-4. 5 Not Available [facility] ([facility]) [address] [facility], [place], [address], 11/01/2023 07:13:12 10/31/19 24 11/01/2023 COMP. METAB OLIC PANEL (14) bilirubin, total 0.4 mg/dL 0.0-1. 2 Not Available [facility] ([facility]) [address] [facility] [place], [address], 11/01/2023 07:13:12 10/31/19 24 11/01/2023 COMP. METAB OLIC PANEL (14) alkaline phosphatase 94 IU/L 44-121 Not Available [facility] ([facility]) [address] [facility], [place], [address], 11/01/2023 07:13:12 10/31/19 24 11/01/2023 COMP. METAB OLIC PANEL (14) AST (SGOT) 31 IU/L 0-40 Not Available [facility] ([facility]) [address] [facility], [place], [address], 11/01/2023 07:13:12 10/31/19 24 11/01/2023 COMP. METAB OLIC PANEL (14) ALT (SGPT) 41 IU/L 0-32 above high normal Not Available [facility] ([facility]) [address] [facility], [place], [address], 11/01/2023 07:13:12 10/31/19 24 11/01/2023 HEMOG LOBIN A1C hemoglobin A1C 7.5 % 4.8-5. 6 above high normal Predi abete s: 5.7 - 6.4 Diabe yumiko: >6.4 Glyce peter contr ol for adult s with diabe yumiko: <7.0 Not Available [facility] ([facility]) [address] [facility], [place], [address], 11/01/2023 07:13:12 10/31/19 24 11/01/2023 TSH TSH 2.480 uIU/m L 0.450- 4.500 Not Available [facility] ([facility]) [address] [facility], [place], [address], 11/01/2023 07:13:13 10/31/19 24 11/01/2023 CBC WITH DIFFE RENTI AL/PL ATELE T WBC 10.2 x10e3 /uL 3.4-10 .8 Not Available [facility] ([facility]) [address] [place], [address], 11/01/2023 07:13:14 10/31/19 24 11/01/2023 CBC WITH DIFFE RENTI AL/PL ATELE T RBC 4.58 x10e6 /uL 3.77-5 .28 Not Available [facility] ([facility]) [address] [place], [address], 11/01/2023 07:13:14 10/31/19 24 11/01/2023 CBC WITH DIFFE RENTI AL/PL ATELE T hemoglobin 13.5 g/dL 11.1-1 5.9 Not Available [facility] ([facility]) [address] [facility], [place], [address], 11/01/2023 07:13:14 10/31/19 24 11/01/2023 CBC WITH DIFFE RENTI AL/PL ATELE T hematocrit 42.8 % 34.0-4 6.6 Not Available [facility] ([facility]) [address] [facility], [place], [address], 11/01/2023 07:13:14 10/31/19 24 11/01/2023 CBC WITH DIFFE RENTI AL/PL ATELE T MCV 93 fL 79-97 Not Available [facility] ([facility]) [address] [facility], [place], [address], 11/01/2023 07:13:14 10/31/19 24 11/01/2023 CBC WITH DIFFE RENTI AL/PL ATELE T MCH 29.5 pg 26.6-3 3.0 Not Available [facility] ([facility]) [address] [facility], [place], [address], 11/01/2023 07:13:14 10/31/19 24 11/01/2023 CBC WITH DIFFE RENTI AL/PL ATELE T MCHC 31.5 g/dL 31.5-3 5.7 Not Available [facility] ([facility]) [address] [place], [address], 11/01/2023 07:13:14 10/31/19 24 11/01/2023 CBC WITH DIFFE RENTI AL/PL ATELE T RDW 13.0 % 11.7-1 5.4 Not Available [facility] ([facility]) [address] [place], [address], 11/01/2023 07:13:14 10/31/19 24 11/01/2023 CBC WITH DIFFE RENTI AL/PL ATELE T platelets 241 x10e3 /uL 150-45 0 Not Available [facility] ([facility]) [address] [facility], [place], [address], 11/01/2023 07:13:14 10/31/19 24 11/01/2023 CBC WITH DIFFE RENTI AL/PL ATELE T neutrophils 73 % notest ab. Not Available [facility] ([facility]) [address] [facility], [place], [address], 11/01/2023 07:13:14 10/31/19 24 11/01/2023 CBC WITH DIFFE RENTI AL/PL ATELE T lymphs 18 % notest ab. Not Available [facility] ([facility]) [address] [facility], [place], [address], 11/01/2023 07:13:14 10/31/19 24 11/01/2023 CBC WITH DIFFE RENTI AL/PL ATELE T monocytes 5 % notest ab. Not Available [facility] ([facility]) [address] [facility], [place], [address], 11/01/2023 07:13:14 10/31/19 24 11/01/2023 CBC WITH DIFFE RENTI AL/PL ATELE T eos 2 % notest ab. Not Available [facility] ([facility]) [address] [facility], [place], [address], 11/01/2023 07:13:14 10/31/19 24 11/01/2023 CBC WITH DIFFE RENTI AL/PL ATELE T basos 1 % notest ab. Not Available [facility] ([facility]) [address] [facility], [place], [address], 11/01/2023 07:13:14 10/31/19 24 11/01/2023 CBC WITH DIFFE RENTI AL/PL ATELE T neutrophils (absolute) 7.5 x10e3 /uL 1.4-7. 0 above high normal Not Available [facility] ([facility]) [address] [facility], [place], [address], 11/01/2023 07:13:14 10/31/19 24 11/01/2023 CBC WITH DIFFE RENTI AL/PL ATELE T lymphs (absolute) 1.9 x10e3 /uL 0.7-3. 1 Not Available [facility] ([facility]) [address] [facility], [place], [address], 11/01/2023 07:13:14 10/31/19 24 11/01/2023 CBC WITH DIFFE RENTI AL/PL ATELE T monocytes(ab solute) 0.5 x10e3 /uL 0.1-0. 9 Not Available [facility] ([facility]) [address] [facility], [place], [address], 11/01/2023 07:13:14 10/31/19 24 11/01/2023 CBC WITH DIFFE RENTI AL/PL ATELE T eos (absolute) 0.2 x10e3 /uL 0.0-0. 4 Not Available [facility] ([facility]) [address] [facility], [place], [address], 11/01/2023 07:13:14 10/31/19 24 11/01/2023 CBC WITH DIFFE RENTI AL/PL ATELE T baso (absolute) 0.1 x10e3 /uL 0.0-0. 2 Not Available [facility] ([facility]) [address] [place], [address], 11/01/2023 07:13:14 10/31/19 24 11/01/2023 CBC WITH DIFFE RENTI AL/PL ATELE T immature granulocytes 1 % notest ab. Not Available [facility] ([facility]) [address] [place], [address], 11/01/2023 07:13:14 10/31/19 24 11/01/2023 CBC WITH DIFFE RENTI AL/PL ATELE T immature grans (abs) 0.1 x10e3 /uL 0.0-0. 1 Not Available [facility] ([facility]) [address] [facility], [place], [address], 11/01/2023 07:13:14 11/21/19 24 11/21/2023 MAMMO , diagn ostic , digit al, bilat eral No observ ation record ed. [facility] [address] [place], [address], 11/27/2023 18:54:32 11/21/19 24 11/21/2023 US, epi t, unila teral No observ ation record ed. [facility] [address] [place], [address], 11/27/2023 18:54:32 12/19/19 24 12/19/2023 US, epi t, unila teral No observ ation record ed. [facility] [address] [place], [address], 12/26/2023 10:11:39 12/19/19 24 12/19/2023 MAMMO , diagn ostic , digit al, bilat eral No observ ation record ed. [facility] [address] [place], [address], 12/26/2023 10:11:40 Result Notes None recorded. Problems Name Problem SNOMED Code Status Onset Date Resolution Date Notes Provider Name and Address Organization Details Recorded Time History of colitis 429720553 Active 2018 Daja Carballo MD Attn: Helenain g,[address] [facility], [place], [address], [facility] 1 12:44:31 Lumbar radiculo sepideh 444616994 Active 2019 Daja Carballo MD Attn: Helenadawood phillips,[address] [facility], [place], [address], [place] [facility] 2 11:57:46 Type 2 diabetes mellitus 99260807 Active 2022 Daja Carballo MD Attn: Helenadawood phillips,[address] [facility], [place], [address], [place] [facility] 3 14:32:00 Chronic obstruct ivet pulmonar y disease 65366742 Active 2023 Daja Carballo MD Attn: Helenadawood phillips,[address] [facility], [place], [address], [place] [facility] 4 14:21:22 Acute urinary tract infectio n 544888795 Completed 01/22/2016 Daja Carballo MD Attn: Margo jacqueline,[address] [facility], [place], [address], [place] [facility] 6 13:12:30 Nephroca lcinosis 49979481 Active us of kidney- Daja Carballo MD Attn: Margo jacqueline,[address] [facility], [place], [address], [place] [facility] 2 11:57:47 Candidal intertri go 561541078 Active 2023 TRUPTI MEJIA MD Attn: Margo jacqueline,[address] [facility], [place], [address], [place] [facility] 4 14:43:44 Obesity 579879691 Completed 12/21/2016 Daja Carballo MD Attn: Margo jacqueline,[address] [facility], [place], [address], [place] [facility] 7 11:19:17 Cough 17354408 Completed 01/22/2016 Daja Carballo MD Attn: Margo phillips,[address] [facility] [place], [address], [place] - [facility] 6 13:12:37 Increase d frequenc y of urinatio n 778649706 Completed 01/22/2016 Daja Carballo MD Attn: Margo phillips,[address] [place], [address], [place] - [facility] 6 13:12:09 Essentia l hyperten estella 35408370 Active Daja Carballo MD Attn: Helenadawood phillips,[address] [place], [address], [place] [facility] 2 11:57:47 Morbid obesity 227715132 Active did not tolerate glp1 Daja Carballo MD Attn: Margo jacqueline,[address] [place], [address], [place] - [facility] 3 15:46:55 Irregula r periods 51556370 Active Rabia Jose null, [place] - [facility] 1 11:46:23 Vaginal discharg e 560991185 Completed 01/22/2016 Daja Carballo MD Attn: Margo jacqueline,[address] [facility], [place], [address], [place] - [facility] 6 13:12:17 Cyst of ovary 17539049 Active Rabia Jose null, [place] [facility] 1 11:46:23 Trichomo nal vulvovag initis 33624354 Active Rabia Jose null, [place] [facility] 1 11:46:23 Bacteria l vaginosi s 934620243 Completed 12/21/2016 Daja Carballo MD Attn: Margo jacqueline,[address] [facility], [place], [address], [place] [facility] 7 11:19:35 Menometr orrhagia 671436653 Active Rabia Jose [place], [place] [facility] 1 11:46:23 Endometr ial hyperpla patti 276205038 Active Rabia Jose null, [place] [facility] 1 11:46:23 Acute sinusiti s 50126643 Completed 01/22/2016 Djaa Carballo MD Attn: Margo phillips,[address] [facility], [place], [address], [place] [facility] 6 13:11:57 Hyperlip idemia 58414571 Active Daja Carballo MD Attn: Margo phillips,[address] [facility], [place], [address], [place] [facility] 2 11:57:47 Anemia 606336096 Active Rabia suarez, [place] [facility] 1 11:46:24 Hypothyr oidism 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 2015 Daja Carballo MD Attn: Helenadawood phillips,[address] [facility], [place], [address], [place] [facility] 2 11:57:46 Low back pain 167682251 Completed 201512/21/2016 Daja Carballo MD Attn: Margo phillips,[address] [facility], [place], [address], [place] [facility] 7 11:19:05 Macromas tia 658725447 Completed 201512/21/2016 Daja Carballo MD Attn: Margo phillips,[address] [facility], [place], [address], [place] [facility] 7 11:28:01 Hyperten sive disorder 47677089 Completed 01/22/2016 Daja Carballo MD Attn: Helenadawood g,[address] [facility], [place], [address], [place] [facility] 6 13:12:43 Gastroes ophageal reflux disease 400934287 Active Daja Carballo MD Attn: Helenadawood g,[address] [facility], [place], [address], [place] [facility] 2 11:57:47 Depressi ve disorder 23864973 Completed 02/03/2016 Daja Carballo MD Attn: Margo phillips,[address] [facility], [place], [address], [place] - [facility] 6 11:02:18 Anxiety 68173933 Completed 02/03/2016 Daja Carballo MD Attn: Margo phillips,[address] [facility], [place], [address], [place] - [facility] 6 11:02:52 Bipolar disorder 20946726 Active with substance use -psych Daja Carballo MD Attn: Margo phillips,[address] [facility], [place], [address], [place] - [facility] 2 14:55:47 Non-alco holic fatty liver 108458190 Active us 05/19-mild hepatomeg harjeet with steatosis Daja Carballo MD Attn: Margo phillips,[address] [place], [address], [place] - [facility] 3 10:12:40 Chronic back pain 722293452 Active MRI 09/15-ganga re narrowing with L5 root compressi on /T10-11 abnormali ty-seeing spine sx who is retired-r eferred again.-pt has apt with pain mx on 04/03/2020. Daja Carballo MD Attn: Helenadawood phillips,[address] [place], [address], [place] - [facility] 2 11:57:46 Hydronep hrosis 47285685 Completed 02/03/2016 Daja Carballo MD Attn: Helenadawood phillips,[address] [place], [address], [place] - [facility] 6 11:02:38 Obstruct ivet sleep apnea syndrome 54715473 Active 2016 on CPAP Daja Carballo MD Attn: Margo jacqueline,[address] [facility], [place], [address], [place] - [facility] 2 11:57:46 Problem Notes None recorded. Procedures Surgical History Date Name Laterality Status Provider Name and Address Organization Details Recorded Time 11/13/19 21 Date of Last Pap Smear completed Adeline Green MA [place] [facility] 11/24/2020 10:45:53 07/30/19 21 Most Recent Mammogram completed Adeline Green MA [facility] 11/12/2020 11:48:43 02/07/20 19 EGD completed JORDANA Barriga [place] - [facility] 02/06/2019 10:56:05 11/17/19 19 colonoscopy completed Daja Carballo MD Attn: Accounting, [address] [facility], [place], [address], [facility] - [facility] 01/10/2019 12:43:56 05/29/19 16 Endometrial Biopsy completed Lili Conroy [place] - [facility] 05/29/2015 14:41:29 02/27/19 08 Cholecystectomy completed Bailey Faulkner RN [place] - [facility] 03/10/2014 15:32:51 02/27/18 95 Caesarean Section completed Adeline Green [place] - [facility] 04/15/2015 10:39:11 Imaging Results Imaging Date Name Status LastModified by [facility] Details LastModified Time 11/21/2023 MAMMO, diagnostic, digital, bilateral completed [facility] [address] [place], [address], 11/27/2023 18:54:32 11/21/2023 US, breast, unilateral completed [facility] [address] [place], [address], 11/27/2023 18:54:32 12/19/2023 US, breast, unilateral completed [facility] [address] [place], [address], 12/26/2023 10:11:39 12/19/2023 MAMMO, diagnostic, digital, bilateral completed [facility] [address] [place], [address], 12/26/2023 10:11:40 Procedure Notes None recorded. Medical Equipment None Reported. Allergies Allergen ID Allergen Name Allergen Category Reaction Reaction Severity Criticality Documentation Date Start Date Code Code System Note Provider Name and Address Organization Details Recorded Time 88834 risperido ne medicatio n Not available Not available Not available 03/10/2014 59911 RxRed Faulkner RN null, [place] - [facility] 5 15:32:51 [id number] Geodon medicatio n Not available Not available Not available 03/10/2014 [id number] 4 RxRed Faulkner RN null, [facility] 5 15:32:51 [id number] Substance with sulfonami de structure and antibacte rial mechanism of action (substanc e) medicatio n Not available Not available Not available 02/05/2014 [id number] SNOMED Bailey Faulkner RN null, [facility] 4 16:51:50 Medications Name Sig Start Date Stop Date Status Note LastModified by Organization Details LastModified Time losartan 50 mg tablet Take 1 tablet every day by oral route for 30 days. active Not Available Not Available No t Available cyclobenz aprine 10 mg tablet Take 1 tablet every day by oral route at bedtime. 12/13 completed Not Available Not Available Not Available amoxicill in 500 mg capsule TAKE 1 CAPSULE BY MOUTH THREE TIMES DAILY FOR 10 DAYS FOR DENTAL INFECTIO N 09/28 completed Not Available Not Available Not Available methocarb jacqueline 500 mg tablet 03/31 completed Not Available Not Available Not Available magnesium 500 mg tablet Take 1 tablet every day by oral route. 11/09 completed Not Available Not Available Not Available prednison e 10 mg tablet active Not Available Not Available Not Available gabapenti n 600 mg tablet active Not Available Not Available Not Available doxycycli ne hyclate 100 mg capsule TAKE 1 CAPSULE BY MOUTH TWICE DAILY FOR 7 DAYS 11/16 completed Not Available Not Available Not Available benztropi ne 0.5 mg tablet active Not Available Not Available Not Available naproxen 375 mg tablet TAKE ONE TABLET BY MOUTH TWICE DAILY NEEDED FOR PAIN. TAKE WITH MEALS 06/19 completed not taking Not Available Not Available Not Available haloperid ol 5 mg tablet 10/31 /2023 completed not taking Not Available Not Available Not Available Saline Mist 0.65 % nasal spray aerosol 08/22 completed Not Available Not Available Not Available tizanidin e 2 mg tablet TAKE 1 TABLET BY MOUTH THREE TIMES DAILY 07/21 completed Not Available Not Available Not Available clindamyc in HCl 300 mg capsule Take 1 capsule twice a day by oral route. 02/02 completed Not Available Not Available Not Available albuterol sulfate 2.5 mg/3 mL (0.083 %) solution for nebulizat ion USE 3 ML VIA NEBULIZE R EVERY 6 HOURS NEEDED FOR WHEEZING active Not Available Not Available No t Available loperamid e 2 mg capsule TAKE 1 CAPSULE BY MOUTH EVERY 8 HOURS NEEDED FOR DIARRHEA 11/01 completed prn Not Available Not Available Not Available trazodone 50 mg tablet psych 08/22 completed Not Available Not Available Not Available azithromy lupe 250 mg tablet TAKE 1 TABLET BY MOUTH DAILY FOR 4 DAYS active Not Available Not Available No t Available tizanidin e 4 mg tablet Take 1 tablet twice a day by oral route. active Not Available Not Available No t Available fluconazo le 150 mg tablet Take 1 tablet every day by oral route for 1 day. 2023 active Not Available Not Available Not Avai lable benzonata te 200 mg capsule Take 1 capsule 3 times a day by oral route as needed. 01/02 completed Not Available Not Available Not Available metoprolo l succinate ER 50 mg tablet,ex tended release 24 hr TAKE 1 TABLET BY MOUTH DAILY active Not Available Not Available No t Available hydrocodo ne 5 mg-acetam inophen 325 mg tablet TAKE ONE TABLET BY MOUTH EVERY FOUR HOURS NEEDED FOR PAIN 07/21 completed Not Available Not Available Not Available Nystop 100,000 unit/gram topical powder APPLY TO THE AFFECTED AREA(S) BY TOPICAL ROUTE 2 TIMES PER DAY active Not Available Not Available No t Available senna 8.6 mg tablet TAKE 2 TABLETS BY MOUTH NIGHTLY NEEDED FOR CONSTIPA TION - 1ST LINE 05/31 completed Not Available Not Available Not Available fluconazo le 200 mg tablet TAKE 1 TABLET BY MOUTH ONCE NEEDED FOR SYMPTOMS 05/31 completed Not Available Not Available Not Available meloxicam 15 mg tablet Take 1 tablet every day by oral route as needed with meal for pain. 03/05 completed not taking Not Available Not Available Not Available phenazopy ridine 200 mg tablet 05/03 completed not taking Not Available Not Available Not Available prednison e 20 mg tablet TAKE 2 TABLETS BY MOUTH DAILY FOR 5 DAYS 04/18 completed Not Available Not Available Not Available dexametha sone 6 mg tablet TAKE 1 TABLET BY MOUTH DAILY AFTER BREAKFAS T FOR 7 DAYS 04/18 completed Not Available Not Available Not Available sertralin e 100 mg tablet TAKE 1 TABLET BY MOUTH EVERY DAY 04/18 completed reduced to 50mg Not Available Not Available Not Available simvastat in 10 mg tablet TAKE 1 TABLET BY MOUTH EVERY NIGHT AT BEDTIME active Not Available Not Available No t Available Doc-Q-Lac e 100 mg capsule Take 1 capsule twice a day by oral route. 06/23 completed Not Available Not Available Not Available terconazo le 0.8 % vaginal cream INSERT ONE APPLICAT ORFUL VAGINALL Y AT BEDTIME FOR 3 DAYS 06/22 completed Not Available Not Available Not Available metronida zole 500 mg tablet TAKE 1 TABLET BY MOUTH EVERY 12 HOURS 04/18 completed Not Available Not Available Not Available hydroxyzi ne HCl 50 mg tablet 03/31 completed not taking Not Available Not Available Not Available acetamino phen 300 mg-codein e 30 mg tablet Take 1 tablet every day by oral route as needed. active Not Available Not Available No t Available ciproflox acin 250 mg tablet Take 1 tablet every 12 hours by oral route for 5 days. 12/20 completed Not Available Not Available Not Available ciproflox acin 500 mg tablet Take 1 tablet every 12 hours by oral route for 7 days. 11/07 completed Not Available Not Available Not Available omeprazol e 40 mg capsule,d elayed release TAKE 1 CAPSULE BY MOUTH DAILY active Not Available Not Available No t Available tramadol 50 mg tablet TAKE 1 TABLET BY MOUTH EVERY 8 HOURS NEEDED FOR MODERATE TO SEVERE PAIN 08/22 completed not taking Not Available Not Available Not Available amoxicill in 500 mg tablet TAKE 1 TABLET BY MOUTH THREE TIMES DAILY FOR 7 DAYS 10/22 completed Not Available Not Available Not Available guaifenes in 200 mg tablet 08/22 completed Not Available Not Available Not Available levothyro xine 25 mcg tablet TAKE ONE TABLET BY MOUTH ONCE DAILY 04/02 completed Not Available Not Available Not Available baclofen 20 mg tablet TAKE 1 TABLET BY MOUTH THREE TIMES A DAY 12/27 completed not taking Not Available Not Available Not Available ketorolac 10 mg tablet TAKE 1 TABLET BY MOUTH EVERY 6 HOURS NEEDED FOR MODERATE TO SEVERE PAIN 04/18 completed not taking Not Available Not Available Not Available alprazola m 0.25 mg tablet psych active Not Available Not Available Not Available famotidin e 20 mg tablet TAKE ONE TABLET BY MOUTH TWICE DAILY 08/22 completed Not Available Not Available Not Available trazodone 100 mg tablet TAKE 1 TABLET BY MOUTH AT BEDTIME active Not Available Not Available No t Available phenazopy ridine 100 mg tablet 12/14 completed Not Available Not Available Not Available baclofen 10 mg tablet 09/23 completed Not Available Not Available Not Available benzonata te 100 mg capsule TAKE 1 CAPSULE BY MOUTH EVERY 8 HOURS FOR UP TO 10 DAYS NEEDED FOR COUGH 05/31 completed Not Available Not Available Not Available levothyro xine 50 mcg tablet TAKE 1 TABLET BY MOUTH DAILY ON A EMPTY STOMACH active Not Available Not Available No t Available cephalexi n 500 mg capsule TAKE 1 CAPSULE BY MOUTH TWICE DAILY FOR 10 DAYS 12/27 completed Not Available Not Available Not Available cyanocoba micheal (vit B-12) 1,000 mcg/mL injection solution 05/21 completed ins won't cover not taking Not Available Not Available Not Available trazodone 150 mg tablet psych 04/18 completed decrease d to 50mg Not Available Not Available Not Available oseltamiv ir 75 mg capsule TAKE 1 CAPSULE BY MOUTH TWICE DAILY FOR 5 DAYS 12/27 completed Not Available Not Available Not Available ferrous sulfate 325 mg (65 mg iron) tablet TAKE ONE TABLET BY MOUTH ONCE DAILY WITH FOOD 06/19 completed 01/03/20 20-pt states she hasn't been taking them for a while. D/c due to she hasn't had a menses in the last 3 months. Not Available Not Available Not Available nystatin 100,000 unit/gram topical cream APPLY EXTERNAL LY TO RIGHT BREAST THREE TIMES DAILY FOR 14 DAYS 09/28 completed Not Available Not Available Not Available ranitidin e 150 mg tablet TAKE ONE TABLET BY MOUTH TWICE DAILY 06/18 completed Not Available Not Available Not Available prednison e 50 mg tablet TAKE 1 TABLET BY MOUTH DAILY FOR 5 DAYS 07/08 completed Not Available Not Available Not Available lidocaine 5 % topical patch 09/28 completed PRN Not Available Not Available Not Available nicotine 21 mg/24 hr daily transderm al patch 08/22 completed Not Available Not Available Not Available megestrol 40 mg tablet Take 2 tablets every day by oral route. 06/23 completed Not Available Not Available Not Available gabapenti n 300 mg capsule TAKE ONE CAPSULE BY MOUTH TWICE A DAY active Not Available Not Available No t Available triamtere ne 37.5 mg-hydroc hlorothia zide 25 mg tablet TAKE 1 TABLET BY MOUTH DAILY active Not Available Not Available No t Available omeprazol e 20 mg capsule,d elayed release TAKE ONE CAPSULE BY MOUTH ONCE DAILY 12/14 completed Not Available Not Available Not Available diclofena c sodium 75 mg tablet,de layed release TAKE 1 TABLET BY MOUTH TWICE DAILY NEEDED 04/18 completed not taking Not Available Not Available Not Available folic acid 1 mg tablet TAKE 1 TABLET BY MOUTH DAILY 03/31 completed not taking Not Available Not Available Not Available hydroxyzi ne HCl 25 mg tablet active Not Available Not Available No t Available codeine 10 mg-guaife nesin 100 mg/5 mL oral liquid TAKE 5 ML BY MOUTH EVERY 8 HOURS NEEDED FOR COUGH 11/16 completed Not Available Not Available Not Available pravastat in 20 mg tablet TAKE ONE TABLET BY MOUTH ONCE DAILY 11/09 completed changed to simvasta tin Not Available Not Available Not Available hydrochlo rothiazid e 25 mg tablet TAKE 1 TABLET BY MOUTH DAILY active Not Available Not Available No t Available furosemid e 20 mg tablet TAKE 1 TABLET BY MOUTH DAILY 01/31 completed not taking Not Available Not Available Not Available metoprolo l succinate ER 25 mg tablet,ex tended release 24 hr TAKE 1 TABLET BY MOUTH DAILY 05/31 completed Not Available Not Available Not Available irbesarta n 150 mg tablet TAKE 1 TABLET BY MOUTH DAILY 09/28 completed Not Available Not Available Not Available levofloxa lupe 500 mg tablet 05/03 completed Not Available Not Available Not Available methylpre dnisolone 4 mg tablets in a dose pack FOLLOW PACKAGE DIRECTIO NS 08/22 completed Not Available Not Available Not Available albuterol sulfate HFA 90 mcg/actua tion aerosol inhaler INHALE 2 PUFFS THREE TIMES A DAY active Not Available Not Available No t Available Vitamin D2 1,250 mcg (50,000 unit) capsule Take 1 capsule( s) every week by oral route. 02/02 completed Not Available Not Available Not Available BD Luer-Francisco Syringe 3 mL 22 gauge x 1 use with vit b12 solution monthly 06/19 completed Not Available Not Available Not Available norethind janay (contrace ptive) 0.35 mg tablet active Not Available Not Available Not Available ketoconaz ole 2 % topical cream APPLY TOPICALL Y TO THE AFFECTED AREA TWICE DAILY 12/27 completed Not Available Not Available Not Available ondansetr on 4 mg disintegr ating tablet DISSOLVE 1 TABLET ON THE TONGUE EVERY 6 HOURS NEEDED FOR NAUSEA OR VOMITING - 1ST LINE active Not Available Not Available No t Available cefdinir 300 mg capsule TAKE 2 CAPSULES BY MOUTH DAILY FOR 6 DAYS active Not Available Not Available No t Available losartan 100 mg tablet TAKE ONE TABLET BY MOUTH ONCE DAILY 06/06 completed irbesart an Not Available Not Available Not Available fluticaso ne propionat e 50 mcg/actua tion nasal spray,yaz pension USE 2 INHALATI ONS ONCE DAILY IN EACH NOSTRIL active Not Available Not Available No t Available metformin ER 500 mg tablet,ex tended release 24 hr Take 2 tablets twice a day by oral route. active Not Available Not Available No t Available clotrimaz ole 1 % topical cream 11/07 completed Not Available Not Available Not Available sertralin e 50 mg tablet TAKE 1 TABLET BY MOUTH EVERY DAY 08/22 completed psych Not Available Not Available Not Available doxycycli ne hyclate 100 mg tablet TAKE 1 TABLET BY MOUTH TWICE DAILY 04/18 completed Not Available Not Available Not Available irbesarta n 300 mg tablet TAKE 1 TABLET BY MOUTH DAILY active Not Available Not Available No t Available loratadin e 10 mg tablet TAKE 1 TABLET BY MOUTH DAILY 01/31 completed not taking Not Available Not Available Not Available naproxen 500 mg tablet Take 1 tablet(s ) every day by oral route with meals. 05/31 completed Not Available Not Available Not Available diazepam 5 mg tablet TAKE 1 TABLET BY MOUTH EVERY 8 HOURS NEEDED 12/27 completed not taking Not Available Not Available Not Available amoxicill in 875 mg-potass ium clavulana te 125 mg tablet TAKE 1 TABLET BY MOUTH EVERY 12 HOURS 05/31 completed Not Available Not Available Not Available buspirone 15 mg tablet active Not Available Not Available Not Available oxycodone 5 mg tablet Take 1 tablet every 6-8 hours by oral route as needed for 5 days, for pain. active Not Available Not Available No t Available hydroxyzi ne pamoate 25 mg capsule psych 11/07 completed Not Available Not Available Not Available aripipraz ole 10 mg tablet TAKE ONE TABLET BY MOUTH EVERY DAY active Not Available Not Available No t Available aripipraz ole 15 mg tablet psych 01/31 completed Not Available Not Available Not Available aripipraz ole 20 mg tablet TAKE 1 TABLET BY MOUTH AT BEDTIME 01/28 completed Not Available Not Available Not Available bupropion HCl XL 300 mg 24 hr tablet, extended release TAKE 1 TABLET BY MOUTH EVERY DAY 10/22 completed not taking Not Available Not Available Not Available bupropion HCl XL 150 mg 24 hr tablet, extended release TAKE 1 TABLET BY MOUTH DAILY FOR 1 WEEK 11/12 completed Not Available Not Available Not Available nitrofura ntoin monohydra te/macroc rystals 100 mg capsule TAKE ONE CAPSULE BY MOUTH TWICE DAILY FOR 4 DAYS 09/28 completed Not Available Not Available Not Available duloxetin e 30 mg capsule,d elayed release active Not Available Not Available Not Available duloxetin e 60 mg capsule,d elayed release TAKE ONE CAPSULE BY MOUTH EVERY DAY IN THE MORNING active Not Available Not Available No t Available pregabali n 75 mg capsule TAKE 1 CAPSULE BY MOUTH TWICE DAILY 01/28 completed Not Available Not Available Not Available pregabali n 100 mg capsule TAKE 1 CAPSULE BY MOUTH THREE TIMES DAILY 11/16 completed Not Available Not Available Not Available pregabali n 150 mg capsule TAKE 1 CAPSULE BY MOUTH TWICE DAILY 08/22 completed Not Available Not Available Not Available chlorhexi dine gluconate 0.12 % mouthwash SWISH 15 ML AFTER BRUSHING TEETH. REPEAT TWICE DAILY UNTIL SYMPTOMS RESOLVE USE FOR 25 DAYS THEN DISCARD REMAINDE R 01/17 completed Not Available Not Available Not Available MagOx 12/13 completed 500 mg, 1 tablet every day Not Available Not Available Not Available BD Tuberculi n Syringe 1 mL 21 gauge x 1 INJECT WITH VIT B12 06/19 completed Not Available Not Available Not Available omeprazol e 20 mg tablet,de layed release 12/14 completed Not Available Not Available Not Available OneTouch Verio test strips active Not Available Not Available Not Available Abilify Maintena 400 mg intramusc ular suspensio n,extende d release psych active Not Available Not Available No t Available Trulicity 1.5 mg/0.5 mL subcutane ous pen injector INJECT 1.5MG SUBCUTAN EOUSLY EVERY WEEK 11/16 completed Not Available Not Available Not Available Trulicity 0.75 mg/0.5 mL subcutane ous pen injector Inject 0.75 mg every week by subcutan eous route. 01/28 completed Not Available Not Available Not Available OneTouch Verio Flex Meter active Not Available Not Available Not Available OneTouch Delica Plus Lancet 30 gauge active Not Available Not Available Not Available Daily-Vit e (with folic acid) 400 mcg tablet 08/22 completed Not Available Not Available Not Available gabapenti n ER 900 mg tablet,ex tended release 24 hr Take 1 tablet 3 times a day by oral route. 12/04 completed Not Available Not Available Not Available Vitals Date Recorded Body height Body mass index (BMI) Body weight Heart rate Respiratory rate Body temperature Oxygen saturation Oxygen saturation in Arterial blood by Pulse oximetry Systolic blood pressure Diastolic blood pressure Provider Name and Address Organization Details Last Updated DateTime 4 157.48 cm 50.3 kg/m2 013268. 9 g 94 /min 14 /min 97.3 [degF] 95 % 95 % 119 mm[Hg] 84 mm[Hg] Yolie Portillo [place] - [facility] 4 14:16:26 Date Recorded Body height Body mass index (BMI) Body weight Respiratory rate Body temperature Oxygen saturation Oxygen saturation in Arterial blood by Pulse oximetry Heart rate Systolic blood pressure Diastolic blood pressure Systolic blood pressure Diastolic blood pressure Provider Name and Address Organization Details Last Updated DateTime 4 157.48 cm 52.1 kg/m2 895304. 83 g 16 /min 97.2 [degF] 99 % 99 % 90 /min 180 mm[Hg] 128 mm[Hg] 168 mm[Hg] 122 mm[Hg] Rabia Jose [facility] 4 12:07:18 Date Recorded Body height Body mass index (BMI) Body weight Body temperature Oxygen saturation Oxygen saturation in Arterial blood by Pulse oximetry Heart rate Respiratory rate Systolic blood pressure Diastolic blood pressure Provider Name and Address Organization Details Last Updated DateTime 4 157.48 cm 51.4 kg/m2 116290. 82 g 98.7 [degF] 97 % 97 % 96 /min 16 /min 157 mm[Hg] 107 mm[Hg] Dhara Koroma MA [facility] 4 14:11:13 Date Recorded Body height Body mass index (BMI) Body weight Heart rate Respiratory rate Body temperature Oxygen saturation Oxygen saturation in Arterial blood by Pulse oximetry Systolic blood pressure Diastolic blood pressure Provider Name and Address Organization Details Last Updated DateTime 4 157.48 cm 52.1 kg/m2 954243. 18 g 99 /min 14 /min 97.3 [degF] 97 % 97 % 127 mm[Hg] 85 mm[Hg] Yolie Portillo MA [facility] 4 12:25:28 Date Recorded Body height Body mass index (BMI) Body weight Oxygen saturation Oxygen saturation in Arterial blood by Pulse oximetry Heart rate Body temperature Systolic blood pressure Diastolic blood pressure Provider Name and Address Organization Details Last Updated DateTime 4 157.48 cm 51.3 kg/m2 207720. 26 g 96 % 96 % 98 /min 97.9 [degF] 163 mm[Hg] 109 mm[Hg] Adeline Green MA [facility] 4 15:14:17 Social History Question Answer Notes LastModified by Organizat ion Details LastModified Time Tobacco Smoking Status Never Smoker Bailey Faulkner RN [facility], [facility] 03/10/2014 15:32:52 Do You Have An Advance Directive? No [email or web address] Information not available 01/03/2020 What Is Your Level Of Alcohol Consumption? None Information not available 04/15/2015 Are You Blind Or Do You Have Difficulty Seeing? Yes Glasses Information not available 01/05/2021 Is Blood Transfusion Acceptable In An Emergency? Yes Information not available 04/15/2015 What Is Your Level Of Caffeine Consumption? Moderate Information not available 01/28/2021 How Much Tobacco Do You Chew? None Information not available 04/15/2015 In The 14 Days Before Symptom Onset, Have You Had Close Contact With A Laboratory-confir med COVID-19 While That Case Was Ill? No Information not available 05/22/2019 In The 14 Days Before Symptom Onset, Have You Had Close Contact With A Person Who Is Under Investigation For COVID-19 While That Person Was Ill? No Information not available 05/22/2019 Have You Been To An Area Known To Be High Risk For COVID-19? No Information not available 05/22/2019 Are You Currently Employed? No Information not available 04/15/2015 Are You Deaf Or Do You Have Serious Difficulty Hearing? No [email or web address] Information not available 06/19/2020 What Type Of Diet Are You Following? REGULAR Information not available 04/18/2022 Which Illicit Or Recreational Drugs Have You Used? No Information not available 04/15/2015 Do You Or Have You Ever Used E-cigarettes Or Vape? Never Used Electronic Cigarettes Information not available 01/10/2019 Education 2 Year College Information not available 04/15/2015 What Is The Highest Grade Or Level Of School You Have Completed Or The Highest Degree You Have Received? [id number] [email or web address] Information not available 06/19/2020 What Is Your Occupation? Disability Information not available 12/21/2016 Are There Any Guns Present In Your Home? No Information not available 05/22/2019 Hard Of Hearing Or Deaf In One Or Both Ears? No Information not available 08/23/2019 Legally Blind In One Or Both Eyes? No Information no t available 08/23/2019 Live Alone Or With Others? Alone Information not available 04/15/2015 Marital Status Single Informatio n not available 12/21/2016 What Was The Date Of Your Most Recent Tobacco Screening? 01/18/2024 Information not available 01/18/2024 How Many Children Do You Have? 1 Information not available 04/15/2015 Performs Monthly Self-breast Exam? Yes Information no t available 04/15/2015 Do You Use Protection During Sex? Usually Information not available 03/19/2021 What Is Your Relationship Status? Single Information not available 04/15/2015 Do You Use Your Seat Belt Or Car Seat Routinely? Yes [email or web address] Information not available 06/19/2020 Seat Belts Used Routinely Yes Information not available 04/15/2015 Are You Sexually Active? Yes Information not available 04/15/2015 Smoke Alarm In Home Yes Information not available 05/22/2019 Do You Have Smoke And Carbon Monoxide Detectors In Your Home? Yes [email or web address] Information not available 06/19/2020 Do You Or Have You Ever Used Smokeless Tobacco? Never Used Smokeless Tobacco Information not available 01/10/2019 How Much Tobacco Do You Smoke? No Information not available 01/10/2019 General Stress Level Medium Information not available 01/22/2020 Do You Feel Stressed (tense, Restless, Nervous, Or Anxious, Or Unable To Sleep At Night)? [id number] [email or web address] Information not available 09/29/2023 Do You Use Any Illicit Or Recreational Drugs? No Hx Of Crack Cocaine Usage Information not available 12/05/2023 Do You Use Sunscreen Routinely? No Information not available 04/15/2015 Has Tobacco Cessation Counseling Been Provided? No Information not available 11/12/2020 Do You Or Have You Ever Used Any Other Forms Of Tobacco Or Nicotine? No Information not available 07/21/2020 Sex: Female Functional Status Question Answer Note LastModified by Organization D etails LastModified Time Are you able to care for yourself? Yes [email or web address] Information n ot available 06/19/2020 What is your exercise level? None Information not available 11/26/2019 Mental Status None recorded. Family History Relationship Description Onset Age of this Age Resolved Age Notes LastModified by Organization Details LastModified Time Mother Depressive disorder [email or web address] Not available 09/06 11:34:53 Mother Diabetes mellitus Not available 09/06 11:34:53 Mother Hypertensive disorder [email or web address] Not available 09/06 11:34:53 Brother Depressive disorder [email or web address] Not available 09/06 11:34:53 Father Epilepsy [email or web address] Not availab le 09/07/2015 11:34:53 Medical History Condition Response Coronary Artery Disease N Atrial Fibrillation N High Blood Pressure Y Breast Cancer N Kidney or Bladder Problems Y Thyroid Problems Y Lung Disease N Depression Y COPD N Blood Clots N GI Problems N Acne N Eating Disorder N Skin Problems N Breast Problem N Anemia N Anesthesia Complications N Heart Attack (CA) N Headaches/Migraines N Anxiety Disorder Y Ovarian Cancer N Diabetes N Muscle, Joint, or Bone Problems Y Blood Transfusions N Seizures/Epilepsy N Infertility N Polyps N Acid Reflux (GERD) Y Cancer N Stroke N Abuse/Domestic Violence N Asthma N Allergies Y Endometriosis Y High Cholesterol Y Hepatitis N Liver Disease N Heart Disease N Headaches N Pre-Eclampsia N Osteoporosis N Heart Failure N Gynecological History Statement/Question Response Abnormal Pap N On BCP's at Conception? N STIs/STDs Yes HPV Vaccine N Most Recent Mammogram 07/29/2020 Age at Menarche 14 Current Control Method Condoms Age at First Child 23 Frequency of Cycle (Q days) Sexually Active? Y Menses Monthly N Date of Last Pap Smear 11/12/2020 Sexual Problems? N LMP Unknown Desired Control Method Condoms Obstetrics History GPAL:G 1 P 1 0 0 1 Type Value Multiple Births 0 Full Term 1 Induced 0 Spontaneous 0 Premature 0 Living 1 Ectopics 0 Total 1 Immunizations Vaccine Type Date Status Note Provider Nam e and Address Organization Details Recorded Time Tdap 6 completed Not Available [facility] 03/16/2019 02:29:59 SARS-COV-2 (COVID-19) vaccine, UNSPECIFIED 1 completed Not Available [facility] 03/28/2023 01:29:51 SARS-COV-2 (COVID-19) vaccine, UNSPECIFIED 1 completed Not Available [facility] 03/28/2023 01:29:51 Tdap 3 completed Not Available [facility] 03/28/2023 01:29:51 Influenza, split virus, quadrivalent, preservative 6 completed Not Available [facility] 03/16/2019 02:39:52 Influenza, split virus, quadrivalent, preservative 7 completed Not Available [facility] 03/16/2019 02:34:24 Influenza, split virus, quadrivalent, preservative 8 completed Not Available [facility] 03/16/2019 02:49:55 Influenza, split virus, quadrivalent, preservative 1 completed Yolie Portillo [place], [place] [facility] 01/05/2021 15:44:33 Influenza, split virus, quadrivalent, preservative 3 completed Yolie Portillo [place], [place] [facility] 12/27/2022 15:18:10 Influenza, split virus, quadrivalent, preservative 5 completed Not Available [facility] 03/16/2019 02:32:11 Past Encounters Encounter ID Performer Location Encounter Start Date Encounter Closed Date Diagnosis/Indication Diagnosis SNOMED-CT Code Diagnosis ICD10 Code [id number] [facility] (Adult Med) [address] [place] [address] 03/10/2014 14:48:06 03/10/2014 16:32:00 Hypertensive disorder 43741519 Bipolar disorder 8252458 4 Non-alcoho lic fatty liver 170008586 Chronic back pain 819843 002 Hydronephrosis 55703886 [id number] Daja Carballo MD [facility] (Adult Med) [address] [facility] [place] [address] 05/15/2014 11:26:41 05/15/2014 12:45:04 Hypertensive disorder 06648716 Chronic back pain 726686 002 Acute urin veronique tract infection 956751317 [id number] [facility] (Adult Med) [address] [facility] [place] [address] 09/11/2014 11:16:12 09/11/2014 12:56:59 Hypertensive disorder 58591056 Non-alcoho lic fatty liver 006019278 Chronic back pain 062162 002 Acute urin veronique tract infection 227611014 Obesity [id number] [id number] [facility] [address] [place] [address] 01/05/2015 11:43:20 01/05/2015 13:16:44 Cough 80413311 R05 Increased frequency of urination 506670573 R35.0 Gastroesop hageal reflux disease 200077112 R12 [id number] [facility] [address] [place] [address] 02/16/2015 11:49:13 02/18/2015 11:06:30 Chronic back pain 010804864 M54.5 Essential hypertension 29679131 I10 Administra tion of influenza vaccine 78794255 Z23 Morbid obesity 954241612 E66.01 [id number] [facility] [address] [place] [address] 04/15/2015 09:44:10 04/15/2015 11:51:00 Irregular periods 29446791 N92.6 [id number] Daja Carballo MD [facility] (Adult Med) [address] [place] [address] 04/16/2015 10:26:28 04/16/2015 14:04:13 Essential hypertension 79943910 I10 Vitamin D deficiency 347 17812 E55.9 [id number] [facility] [address] [place] [address] 04/23/2015 10:35:20 04/23/2015 12:29:32 Irregular periods 21921790 N92.6 Vaginal discharge 615617 006 N89.8 [id number] Lili Kumar (COMMISSIONS SPECIALIST) [address] [place] [address] 05/13/2015 10:41:57 05/13/2015 12:27:16 Cyst of ovary 72296278 N83.20 Trichomona l vulvovaginitis 95022018 A59.01 Bacterial vaginosis 4197 31475 N76.0 Irregular periods 452206 07 N92.6 [id number] Lili Kumar (COMMISSIONS SPECIALIST) [address] [facility] [place] [address] 05/29/2015 11:32:48 05/29/2015 12:30:02 Irregular periods 76836150 N92.6 [id number] Lili Kumar (COMMISSIONS SPECIALIST) [address] [place] [address] 06/10/2015 09:53:19 06/10/2015 11:28:01 Gynecologic examination 36821041 Z01.419 Venereal d isease screening 678957226 Z11.3 Screening for malignant neoplasm of breast 163165791 Z12.39 Menometrorrhagia 7423032 08 N92.1 Endometria l hyperplasia 574253314 N85.00 [id number] Lili Kumar (COMMISSIONS SPECIALIST) [address] [facility] [place] [address] 06/24/2015 10:39:21 06/24/2015 12:13:14 Bacterial vaginosis 828302144 N76.0 [id number] MD José Pires (Adult Med) [address] [facility] [place] [address] 07/03/2015 11:54:24 07/03/2015 14:46:20 Acute sinusitis 50600967 J01.90 [id number] Lili Kumar (COMMISSIONS SPECIALIST) [address] [facility] [place] [address] 07/08/2015 13:32:31 07/08/2015 14:25:49 Trichomonal vulvovaginitis 29335664 A59.01 [id number] MD José Pires (Adult Med) [address] [facility] [place] [address] 08/13/2015 10:44:22 08/14/2015 10:03:20 Essential hypertension 54645006 I10 Vitamin D deficiency 347 76207 E55.9 Administra tion of diphtheria, pertussis, and tetanus vaccine 529062523 Z23 Morbid obesity 711455637 E66.01 Hyperlipidemia 03369744 E78.5 [id number] Lili Kumar (COMMISSIONS SPECIALIST) [address] [place] [address] 09/07/2015 10:59:48 10/28/2015 09:12:04 Anemia 595766422 D64.9 Endometria l hyperplasia 962920058 N85.00 [id number] [facility] [address] [place] [address] 02/03/2016 10:17:02 02/03/2016 12:14:05 Essential hypertension 53286710 I10 Hyperlipidemia 59403289 E78.5 Administra tion of influenza vaccine 54093562 Z23 Hypothyroidism 89918843 E03.9 Chronic back pain 391962 002 M54.5 Macromastia 146301425 N6 2 [id number] [facility] [address] [place] [address] 06/23/2016 10:49:44 06/23/2016 15:14:31 Essential hypertension 10870546 I10 Hyperlipidemia 10153112 E78.5 Hypothyroidism 40996312 E03.9 Chronic back pain 985209 002 M54.5 [id number] Lili Kumar (COMMISSIONS SPECIALIST) [address] [place] [address] 12/14/2016 14:23:32 12/16/2016 14:19:08 Venereal disease screening 736628579 Z11.3 Menorrhagia 728750438 N9 2.0 Dysuria 93692839 R30.0 Sterilizat ion requested 179791810 Z30.2 [id number] [facility] [address] [place] [address] 12/21/2016 10:47:29 12/26/2016 11:09:37 Administration of influenza vaccine 72740121 Z23 Essential hypertension 48348460 I10 Hyperlipidemia 76900525 E78.5 Hypothyroidism 79745828 E03.9 Gastroesop hageal reflux disease 160382932 R12 Obstructiv e sleep apnea syndrome 09462967 G47.33 [id number] Lili Kumar (COMMISSIONS SPECIALIST) [address] [place] [address] 12/21/2016 14:35:32 03/02/2017 14:12:15 Bacterial vaginosis 116742839 N76.0 Candidal vulvovaginitis 35788998 B37.3 Sterilizat ion requested 519489590 Z30.2 Venereal d isease screening 379927778 Z11.3 [id number] Damian Vasquez (COMMISSIONS SPECIALIST) [address] [place] [address] 02/02/2017 14:58:52 02/06/2017 12:58:31 Counseling for elective sterilization done 9773053305 53685 Z30.2 Morbid obesity 897754828 E66.01 Female sterilization 608 51203 Z30.2 [id number] MD José Pires (Adult Med) [address] [place] [address] 05/03/2017 10:46:09 05/04/2017 15:11:52 Essential hypertension 34334055 I10 Hyperlipidemia 29500843 E78.5 Hypothyroidism 08498361 E03.9 Chronic back pain 191654 002 M54.5 Acute urin veronique tract infection 566876205 N39.0 Anemia 093071560 D64.9 [id number] JORDANA Barriga (Adult Med) [address] [place] [address] 05/19/2017 12:21:44 05/19/2017 17:08:12 [id number] MD José Pires (Adult Med) [address] [place] [address] 08/16/2017 11:56:35 08/18/2017 15:16:44 Essential hypertension 45677276 I10 Hyperlipidemia 54479280 E78.5 Hypothyroidism 08840040 E03.9 Chronic back pain 083144 002 M54.10 Obstructiv e sleep apnea syndrome 12671583 G47.33 Bipolar disorder 1457527 4 F31.9 Anemia 677002342 D50.8 Serum zacarias min B12 below reference range 647796018 R79.89 [id number] MD José Pires (Adult Med) [address] [place] [address] 12/20/2017 11:46:57 12/21/2017 17:55:09 Administration of influenza vaccine 19063600 Z23 Essential hypertension 99580197 I10 Hypothyroidism 06572946 E03.9 Chronic back pain 710224 002 M54.10 Obstructiv e sleep apnea syndrome 00234163 G47.33 Bipolar disorder 0523649 4 F31.9 Anemia 304324568 D50.8 Serum zacarias min B12 below reference range 265356003 R79.89 Hyperlipidemia 52565092 E78.5 Morbid obesity 519670514 E66.01 [id number] MD Kenya Pireshalto (Adult Med) [address] [place] [address] 06/18/2018 14:37:00 06/19/2018 09:06:25 Essential hypertension 39518402 I10 Hyperlipidemia 58165166 E78.5 Hypothyroidism 58732128 E03.9 Bipolar disorder 2275853 4 F31.9 Gastroesop hageal reflux disease without esophagitis 766833172 K21.9 [id number] Lili Kumar (COMMISSIONS SPECIALIST) [address] [place] [address] 11/07/2018 15:21:05 11/08/2018 12:34:52 Large ovary 43836603 N83.8 [id number] MD Kenya Pires[facility]to (Adult Med) [address] [place] [address] 11/09/2018 10:36:11 11/12/2018 09:52:17 Essential hypertension 86961285 I10 Hyperlipidemia 08158043 E78.5 Hypothyroidism 65397292 E03.9 Constipation 38621750 K5 9.00 History of colitis 33031 9006 Z87.19 Chronic back pain 919369 002 M54.10 [id number] Lili Kumar (COMMISSIONS SPECIALIST) [address] [place] [address] 11/22/2018 11:45:11 11/23/2018 09:57:13 Cyst of ovary 77416804 N83.576 [id number] Lili Kumar (COMMISSIONS SPECIALIST) [address] [place] [address] 12/13/2018 11:28:58 12/14/2018 10:40:12 Gynecologic examination 15043862 Z01.411 Screening for malignant neoplasm of breast 214672060 Z12.39 Morbid obesity 501758542 E66.01 [id number] MD José Pires (Adult Med) [address] [place] [address] 01/10/2019 12:16:17 01/11/2019 09:43:49 Essential hypertension 98239489 I10 Hypothyroidism 59321677 E03.9 Hyperlipidemia 00295089 E78.5 Bipolar disorder 1997481 4 F31.9 Acute bronchitis 5887151 2 J20.9 Chronic back pain 682678 002 M54.10 [id number] [facility] [address] [place] [address] 05/22/2019 10:22:30 05/22/2019 14:47:45 Essential hypertension 89974801 I10 Hyperlipidemia 57491884 E78.5 Hypothyroidism 33089949 E03.9 Anemia 174292878 D50.8 Upper resp iratory infection 75615850 J06.9 [id number] [facility] [address] [place] [address] 08/23/2019 08:16:59 08/26/2019 06:32:17 Chronic back pain 547920889 M54.10 Essential hypertension 67178590 I10 Hyperlipidemia 96860781 E78.5 Hypothyroidism 08466959 E03.9 Obstructiv e sleep apnea syndrome 24253711 G47.33 [id number] [facility] [address] [place] [address] 11/26/2019 08:13:28 11/29/2019 13:47:13 Upper respiratory infection 08542508 J06.9 [id number] Caitlin Buenrostro APN, CRITICAL CARE [employer]-C [facility] (Adult Med) [address] [place] [address] 01/03/2020 12:28:46 01/06/2020 10:25:58 Acute sinusitis 09237460 J01.90 [id number] [facility] [address] [place] [address] 01/10/2020 08:19:38 01/13/2020 14:24:28 Chronic back pain 115222557 M54.16 Pain of le ft hip joint 7740211299 94710 M25.283 [id number] MD José Pires (Adult Med) [address] [place] [address] 01/22/2020 08:02:48 01/23/2020 22:39:10 Chronic back pain 088052429 M54.16 [id number] MD Kenya Pireshalto (Adult Med) [address] [place] [address] 03/05/2020 08:31:24 03/06/2020 05:19:22 Essential hypertension 32551501 I10 Hyperlipidemia 11301672 E78.5 Chronic back pain 460683 002 M54.16 Hypothyroidism 73973167 E03.9 Bipolar disorder 3917592 4 F31.9 [id number] MD José Pires (Adult Med) [address] [place] [address] 06/19/2020 08:11:53 06/22/2020 07:55:56 Essential hypertension 58467505 I10 Hyperlipidemia 23408951 E78.5 Chronic back pain 527401 002 M54.16 Hypothyroidism 41449049 E03.9 Bipolar disorder 2231104 4 F31.9 [id number] MD José Pires (Adult Med) [address] [place] [address] 07/21/2020 11:51:26 07/22/2020 13:15:29 Upper respiratory infection 05539037 J06.9 [id number] MD José Pires (Adult Med) [address] [place] [address] 10/22/2020 11:27:41 10/26/2020 17:46:06 Essential hypertension 10178060 I10 Hyperlipidemia 25791414 E78.5 Chronic back pain 374223 002 M54.16 Hypothyroidism 60374978 E03.9 Bipolar disorder 4654449 4 F31.9 Morbid obesity 040678976 E66.01 Tachycardia 2465806 R00. 0 [id number] Lili Kumar (COMMISSIONS SPECIALIST) [address] [place] [address] 11/12/2020 11:34:53 11/13/2020 12:42:58 Gynecologic examination 10865355 Z01.411 Venereal d isease screening 685883053 Z11.3 Body mass index 40+ - severely obese 736853094 Z68.42 Tinea corporis 16461486 B35.4 Screening for malignant neoplasm of breast 906630086 Z12.39 [id number] Lili Conroy Higbee (COMMISSIONS SPECIALIST) [address] [place] [address] 11/24/2020 08:11:25 11/25/2020 16:48:08 Gynecologic examination 75327390 Z01.411 Venereal d isease screening 459677915 Z11.3 Prediabetes 559447312 R7 3.03 [id number] MD Kenya Pireshalto (Adult Med) [address] [facility] [place] [address] 01/05/2021 12:05:04 01/07/2021 17:36:26 Administration of influenza vaccine 48828171 Z23 Essential hypertension 95915904 I10 Chronic back pain 125733 002 M54.16 Obstructiv e sleep apnea syndrome 67981432 G47.33 Morbid obesity 262320225 E66.01 [id number] MD Kenya Pireshalto (Adult Med) [address] [facility] [place] [address] 01/28/2021 11:57:00 01/29/2021 11:26:50 Essential hypertension 41803235 I10 Hyperlipidemia 72566999 E78.5 Hypothyroidism 41564009 E03.9 Chronic back pain 136362 002 M54.16 Bipolar disorder 1895706 4 F31.9 Morbid obesity 922883495 E66.01 [id number] MD José Rosen (COMMISSIONS SPECIALIST) [address] [facility] [place] [address] 03/19/2021 11:48:08 03/30/2021 09:06:55 Acute vaginitis 56324076 N76.0 Amenorrhea 64702448 N91. 2 [id number] ERNIE Flemingto (COMMISSIONS SPECIALIST) [address] [facility] [place] [address] 04/27/2021 15:35:54 04/28/2021 09:59:15 History of sexually transmitted disease 363338370 Z86.19 Exposure t o sexually transmissible disorder 705486559 Z20.2 Amenorrhea 80830287 N91. 2 [id number] ERNIE Fleming (COMMISSIONS SPECIALIST) [address] [place] [address] 06/22/2021 11:57:14 06/24/2021 07:20:44 Vaginal irritation 262130758 N89.8 Exposure t o sexually transmissible disorder 502692500 Z20.2 Intertrigo 95085637 L30. 4 Vaginal discharge 917353 006 N89.8 [id number] MD José Pires (Adult Med) [address] [place] [address] 07/08/2021 11:53:02 07/12/2021 11:11:00 Acute bronchitis 62127292 J20.9 [id number] MD José Pires (Adult Med) [address] [place] [address] 07/13/2021 11:38:47 07/14/2021 06:23:42 Essential hypertension 36987488 I10 Hyperlipidemia 11257370 E78.5 Chronic back pain 835885 002 M54.16 Hypothyroidism 33355901 E03.9 Morbid obesity 163711008 E66.01 Persistent cough 8541309 02 R05.3 [id number] [facility] [address] [place] [address] 11/16/2021 14:28:30 11/17/2021 12:18:59 Essential hypertension 42306788 I10 Chronic back pain 744466 002 M54.16 Bipolar disorder 4010349 4 F31.9 Hypothyroidism 24685316 E03.9 Obesity 253461589 E66.9 Hyperlipidemia 16435779 E78.5 [id number] MD José Pires (Adult Med) [address] [place] [address] 04/18/2022 13:57:55 04/21/2022 11:43:37 Essential hypertension 96179380 I10 Chronic back pain 331355 002 M54.16 Bipolar disorder 8823147 4 F31.9 Obstructiv e sleep apnea syndrome 63155419 G47.33 Hypothyroidism 03202952 E03.9 Hyperlipidemia 68234625 E78.5 Morbid obesity 744874923 E66.01 Difficulty walking 85172 2003 R26.2 Right uppe r quadrant pain 941386389 R10.11 [id number] [facility] [address] [place] [address] 08/22/2022 14:22:54 08/25/2022 10:50:34 Essential hypertension 03156010 I10 Hyperlipidemia 55148870 E78.5 Hypothyroidism 95074429 E03.9 Chronic back pain 456273 002 M54.16 Bipolar disorder 6332663 4 F31.9 Morbid obesity 608887117 E66.01 Allergic rhinitis 783491 04 J30.9 [id number] [facility] [address] [place] [address] 12/27/2022 14:12:29 12/28/2022 11:51:29 Administration of influenza vaccine 47713227 Z23 Essential hypertension 91794483 I10 Hyperlipidemia 06429833 E78.5 Hypothyroidism 65893310 E03.9 Chronic back pain 673649 002 M54.16 Bipolar disorder 1547012 4 F31.9 Morbid obesity 827681987 E66.01 Obstructiv e sleep apnea syndrome 26640501 G47.33 Ingrowing nail of toe of left foot 5474300095 9381336 L60.0 [id number] [facility] [address] [place] [address] 01/31/2023 13:48:55 02/02/2023 11:02:47 Morbid obesity 603866084 E66.01 Obstructiv e sleep apnea syndrome 71916006 G47.33 Type 2 nathen betes mellitus 32272992 E11.9 Dyspnea 070836728 R06.00 [id number] MD José Pires (Adult Med) [address] [place] [address] 03/31/2023 14:39:30 04/03/2023 14:15:15 Essential hypertension 11073685 I10 Chronic back pain 845250 002 M54.16 Lower urin veronique tract symptoms 363543853 R39.9 Morbid obesity 771238898 E66.01 [id number] [facility] [address] [place] [address] 06/01/2023 13:54:03 06/02/2023 17:04:47 Essential hypertension 46955831 I10 Chronic back pain 950367 002 M54.16 Bipolar disorder 3648074 4 F31.9 Obesity 284636320 E66.9 Chronic ob structive pulmonary disease 43443378 J44.9 Obstructiv e sleep apnea syndrome 98867376 G47.33 Type 2 nathen betes mellitus 45692662 E11.9 [id number] [facility] [address] [place] [address] 09/29/2023 11:52:08 10/05/2023 11:07:09 Essential hypertension 50827818 I10 Chronic back pain 897265 002 M54.16 Type 2 nathen betes mellitus 83988024 E11.9 Hypothyroidism 92086011 E03.9 Bipolar disorder 5963192 4 F31.9 [id number] MD Kenya RIZOhalto (COMMISSIONS SPECIALIST) [address] [place] [address] 10/02/2023 13:58:42 10/09/2023 09:10:46 Routine gynecologic examination done 4358785751 9101 Z01.419 Screening for malignant neoplasm of breast 148758330 Z12.31 History of polyp of colon 984587657 Z86.010 Candidal intertrigo 2661 88461 B37.2 Essential hypertension 22171562 I10 [id number] [facility] [address] [place] [address] 12/05/2023 11:39:12 12/08/2023 16:37:05 Essential hypertension 35226881 I10 Hyperlipidemia 13046464 E78.5 Type 2 nathen betes mellitus 74141842 E11.9 Bipolar disorder 2772057 4 F31.9 Hypothyroidism 65768998 E03.9 Chronic back pain 650301 002 M54.16 [id number] MD José RIZO (COMMISSIONS SPECIALIST) [address] [place] [address] 01/18/2024 14:47:20 01/22/2024 11:51:30 Postmenopausal bleeding 77755506 N95.0 Cramping pain 563443258 R52 Pruritus of vagina 29328 003 L29.3 Health Concerns Section Related Observation LastModified by Organization Detai ls LastModified Time None Recorded Concern Status LastModified by Organization Details LastModified Time None Recorded Advance Directives Directive N: Payers Encounter Date Sequence Insurance Name Policy Number Policy Wagner Covered Member ID Wagner Member ID Guarantor Name 06/01/2023 1 [facility] (MEDICAID HMO) [id number] Alona [place] [id number] Alona L Access Consultant 09/29/2023 1 [facility] (MEDICAID HMO) [id number] Alona Access Consultant [id number] Alona L [place] 10/02/2023 1 [facility] [place] ([place]) [id number] Alona Access Consultant [id number] Alona L [place] 12/05/2023 1 [facility] (MEDICAID HMO) [id number] Alona [place] [id number] Alona L [place] 01/18/2024 1 [facility] (MEDICAID HMO) [id number] 0003 Alona Access Consultant [id number] Alona L [place] Notes Date Note Type Note Provider Name and Address Organization Details Recorded Time 06/01/2023 text/html Back PainReporte d bypatient.Location:janell n radiating to the buttocks(hips); lumbar spine Quality:dull Severity:improving;mil d (1-4) Duration:chronic Onset/Timing:recurrent episode Context:prior back problems Aggravating Factors:movement/posit ioning Associated Symptoms:no fever; no weak limbs; no incontinence;numbness of the legs/feetNotes:pt stopped seeing pain mx, could not get back due to transportation issueHypertension F/UReported bypatient.Associated Symptoms:no dizziness; no chest pain; no edema Lifestyle:limiting/lien iding salt;not exercising regularly Medications:taking medications as directed; no side effects from medication Pt is here for hospital f/u for cough and congestion- pt was rxed with few rounds of antibioticpt sees psych for bipolar and taking meds as prescribed , pt said she is clean for last [address] . Daja Carballo MD Attn: Accounting,[address] [facility], [place], [address], [facility] 06/02/2023 16:01:09 09/29/2023 text/html Back PainReporte d bypatient.Location:janell n radiating to the buttocks(hips); lumbar spine Quality:dull Severity:improving;mil d (1-4) Duration:chronic Onset/Timing:recurrent episode Context:prior back problems Aggravating Factors:movement/posit ioning Associated Symptoms:no fever; no weak limbs; no incontinence;numbness of the legs/feetNotes:pt stopped seeing pain mx, could not get back due to transportation issueDiabetes F/UReported bypatient.Labs:last A1C result: 7.8 Context:not missing doses of medications; no side effects from medications Associated Symptoms:weight gain ( lbs)Hypertension F/UReported bypatient.Associated Symptoms:no dizziness; no chest pain; no edema Lifestyle:limiting/lien iding salt;not exercising regularly Medications:taking medications as directed; no side effects from medication Pt is here for hospital f/u for cough and congestion- pt was rxed with few rounds of antibioticpt sees psych for bipolar and taking meds as prescribed , pt said she is clean for last [address] . Daja Carballo MD Attn: Accounting,[address] [facility], [place], [address], [facility] 09/29/2023 14:12:24 10/02/2023 text/html Annual [facility] n- PCP: Joseph Carballo MD Concerns today- Abnormal vaginal discharge has been persistent since treatment for UTIs. Associated with vaginal itching and irritation. Infection risk- Prior testing for HIV? Neg in 2020- Prior testing for HepC? Neg in 2020- History of STIs? Trich- Currently having unprotected sex? Not currently Plans for - No menses since 2020. Patient would miss 1-2 months at a time before that. Reports hirsutism. Review of prior pelvic ultrasounds show persistently enlarged ovary size >10 mL consistent with polycystic ovary morphology. Cancer screenings- Breast cancer: Neg mammo (2020).- Cervical cancer: NILM, neg hr-HPV (05/2015 and 10/2020).- Colon cancer: Colonoscopy with polyp removal (2018); recommended 5 year repeat.- Lung cancer: Never smoker.- History of EMB on 05/29/15 with pathology result - Simple endometrial hyperplasia in the background of disordered proliferative endometrium. No atypia. TRUPTI MEJIA MD Attn: Accounting,[address] [facility], [place], [address], [facility] 10/02/2023 15:00:12 12/05/2023 text/html Back PainReporte d bypatient.Location:janell n radiating to the buttocks(hips); lumbar spine Quality:dull Severity:moderate (5-7) Duration:chronic Onset/Timing:recurrent episode Context:prior back problems Aggravating Factors:movement/posit ioning Associated Symptoms:no fever; no weak limbs; no incontinence;numbness of the legs/feetNotes:pt stopped seeing pain mx, could not get back due to transportation issueDiabetes F/UReported bypatient.Labs:last A1C result: 7.5 Context:not missing doses of medications; no side effects from medications Associated Symptoms:weight gain ( lbs)Hypertension F/UReported bypatient.Associated Symptoms:no dizziness; no chest pain; no edema Lifestyle:limiting/lien iding salt;not exercising regularly Medications:taking medications as directed; no side effects from medication Pt is here for hospital f/u for cough and congestion- pt was rxed with few rounds of antibioticpt sees psych for bipolar and taking meds as prescribed , pt said she is clean for last [address] drugs . Daja Carballo MD Attn: Accounting,[address] [facility], [place], [address], [facility] 12/05/2023 15:21:15 01/18/2024 text/html Postmenopausal bleeding- Has bright red bleeding from vagina after menopause for 5 years- Has needed to use pads. Noticed a spot on pad. Describes it as mucousy blood.- Has had sharp pain through low abdomen as well as crampy pain. Tylenol not helping. Cannot take ibuprofen due to GERD.- History of endometrial biopsy in 2016; path report showed: SIMPLE ENDOMETRIAL HYPERPLASIA IN THE BACKGROUND OF DISORDERED PROLIFERATIVE ENDOMETRIUM. NO ATYPIA. TRUPTI MEJIA MD Attn: Accounting,[address] [facility], [place], [address], [facility] [place] 01/19/2024 13:31:58 OBGyn Episode Ob Episode Information Episode Created Date Number of Fetuses Patient Bloodtype Patient rh Status Prepregnancy Weight lbs Domestic Partner Domestic Partner Phone Father Name Non Cdl Driver Status 04/15/19 16 1 CLOSED Fetus Data First Name Last Name Admitted to NICU Weight (g) Sex Living Outcome Pediatric Complications Fetus ID Race Codes Race Delivery Type [phone] F Full Term [id number] Sravani Calculation SRAVANI Calculation Method Initial Sravani Date Initial Exam Date Initial Exam Provider Initial Ultrasound Date Last Menstrual Period Date Ultra Sound Weeks Gestation Conception by IVF Embryo Age at Transfer Date of Transfer 0 Eighteen To Twenty Week Sravani Update Ultra Sound Date Fundal Height At Umbil Quickening Date Ultra Sound Latest Weeks Gestation Final Sravani Confirmed By Final Sravani Confirmed Date Final Sravani Date Ultra Sound Latest Days Gestation 0 0 Menstrual History Last Menstrual Date Menses Monthly On Bcp Conception Prior Menses Frequency Hcg Plus Date Menarche Onset Age Delivery Information Delivery Date Delivery Type Labor Anesthesia Weeks Gestation Incision Type Labor Labor Length Hrs Delivered By Post Complications Tubal Sterilization Discharge Date Comments 5 Discharge Information Feeding Method Contraceptive Method Maternal HG B and HCT Levels
--- OUTSIDE RECORDS SUMMARY | 2024-03-03 19:37 | XMS_ITS | Referral Summary ---
Author Organization [facility] Address [address] [place] [address] Care Team Providers Care Web Offset Press Feeder Name Role Phone Daja Kern MD Primary Care Provider Encounters Date Type Department Care Team Description 01/29/2024 8:43 AM WELFARE INVESTIGATOR - 01/29/2024 11:59 PM WELFARE INVESTIGATOR Hospital Encounter [facility] Emergency, Room R Discharge Disposition: Discharge to home or self care 01/10/2024 1:00 PM WELFARE INVESTIGATOR Therapy [facility] [place] [address] Dilcia Jolly, HANDYMAN Lumbar radiculopathy (Primary Dx); Deconditioned low back 01/04/2024 1:00 PM WELFARE INVESTIGATOR Therapy [facility] [place] [facility] [place] [address] Alvarado Limon, PT Lumbar radiculopathy (Primary Dx); Deconditioned low back 01/03/2024 12:29 PM WELFARE INVESTIGATOR - 01/03/2024 11:59 PM WELFARE INVESTIGATOR Hospital Encounter [facility] [address] [place], [place] [id number] Spondylolisthesis at L5-S1 level Discharge Disposition: Discharge to home or self care 01/03/2024 10:30 AM WELFARE INVESTIGATOR - 01/03/2024 11:59 PM WELFARE INVESTIGATOR Hospital Encounter [facility] [address] [place] [address] for Advanced Medicine [address] [place] [id number] Katrina Wilkes MD Spondylolisthesis at L5-S1 level (Primary Dx); Spinal stenosis of lumbar region with neurogenic claudication Discharge Disposition: Discharge to home or self care 12/26/2023 3:43 PM CDT - 12/26/2023 11:59 PM CDT Hospital Encounter [facility] Emergency, Room R Discharge Disposition: Discharge to home or self care 12/26/2023 5:07 AM CDT - 12/26/2023 11:59 PM CDT Hospital Encounter [facility] Emergency, Room R Discharge Disposition: Discharge to home or self care 12/26/2023 5:23 AM CDT - 12/26/2023 3:47 PM CDT Emergency [facility] Emergency Department [address] [place] [address] Ilya Mesa MD Bipolar affective disorder, current episode depressed, current episode severity unspecified (HCC) (Primary Dx); Acute cystitis without hematuria Discharge Disposition: Discharge to psych hospital or psych unit 12/20/2023 1:00 PM CDT Therapy [facility] Physical Therapy [place] [address] Alvarado Limon, PT Lumbar radiculopathy (Primary Dx); Deconditioned low back 12/18/2023 1:00 PM CDT Therapy [facility] Physical [place] [address] Alvarado Limon, PT Lumbar radiculopathy (Primary Dx); Deconditioned low back 12/12/2023 4:45 PM CDT Therapy [facility] [place] [address] Alvarado Limon, PT Lumbar radiculopathy (Primary Dx); Deconditioned low back 12/04/2023 Plan of Care Documentation [facility] [place] [address] 12/04/2023 2:30 PM CDT Therapy [facility] [place] [address] Alvarado Limon, PT Lumbar radiculopathy; Deconditioned low back from Last 3 Months Allergies Active Allergy Reactions Criticality Noted Date Comments Risperidone Other (See comments),Hives High 08/09/2017 Violent and agitated. Sulfa (Sulfonamide Antibiotics) Hives High 09/01/2015 Reaction: Hives, Topiramate Other (See comments),Hives High 08/09/2017 Difficulty with speech and word finding. Hydroxyzine Palpitations Low 01/03/2024 Ziprasidone Hives Medium 01/06/2023 Ziprasidone Hcl Other (See comments) High 08/09/2017 Abnormal mouth movements Medications irbesartan (AVAPRO) 150 mg tablet Take 1 tablet (150 mg total) by mouth daily 10/18/19 20 Active levothyroxine (SYNTHROID) 50 mcg tablet 11/12/19 20 Active omeprazole (PriLOSEC) 40 mg capsule Take 1 capsule (40 mg total) by mouth daily 02/07/20 19 Active simvastatin (ZOCOR) 10 mg tablet 11/12/19 20 Active traZODone (DESYREL) 100 mg tablet TK 1 T PO HS 09/24/19 20 Active albuterol HFA (PROVENTIL HFA,VENTOLIN HFA,PROAIR HFA) 90 mcg/actuation inhaler Inhale 2 puffs every 6 (six) hours as needed 02/11/20 22 Active benztropine (COGENTIN) 0.5 mg tablet 08/23/19 23 Active lidocaine (LIDODERM) 5 % 07/27/19 23 Active fluticasone propionate (FLONASE) 50 mcg/actuation nasal spray 2 sprays daily As needed 10/18/19 23 Active irbesartan-hydroch lorothiazide (AVALIDE) 150-12.5 mg per tablet daily Active DULoxetine DR (CYMBALTA) 60 mg capsule 10/18/19 23 Active metFORMIN XR (GLUCOPHAGE XR) 500 mg 24 hr tablet Take 1 tablet (500 mg total) by mouth daily with breakfast 03/07/19 24 Active loperamide (IMODIUM) 2 mg capsule Take 1 capsule (2 mg total) by mouth every 8 (eight) hours as needed for diarrhea 01/06/20 23 Active multivitamin with minerals tablet Take 1 tablet by mouth daily 01/07/20 23 Active Abilify Maintena 400 mg IM injection 02/11/20 23 Active triamterene-hydroC HLOROthiazide 37.5-25 mg per tablet 03/06/19 24 Active ondansetron ODT (ZOFRAN-ODT) 4 mg disintegrating tablet Take 1 tablet (4 mg total) by mouth every 6 (six) hours as needed 01/06/20 Active senna (SENOKOT) 8.6 mg tablet Take 2 tablets by mouth nightly as needed 01/06/20 23 Active ARIPiprazole (ABILIFY) 10 mg tablet Take 1 tablet (10 mg total) by mouth daily Active hydrOXYzine (ATARAX) 25 mg tablet 08/21/19 24 Active acetaminophen (TYLENOL) 500 mg tablet Take 2 tablets (1,000 mg total) by mouth every 6 (six) hours as needed for pain Active gabapentin (NEURONTIN) 600 mg tabletIndications: Lumbar radiculopathy TAKE 1 & 1/2 TABLETS BY MOUTH THREE TIMES A DAY 126 tablet 3 10/19/19 24 Active metoprolol XL (TOPROL-XL) 50 mg extended release tablet 10/24/19 24 Active irbesartan (AVAPRO) 300 mg tablet 10/24/19 24 Active tiZANidine (ZANAFLEX) 4 mg tablet TAKE 1 TABLET BY MOUTH TWICE A DAY 56 tablet 3 11/22/19 24 Active Additional Information Patient not taking.Reported on 01/03/2024 OneTouch Verio test strips strip 12/26/19 Active chlorhexidine (PERIDEX) 0.12 % oral rinse SWISH 15 ML AFTER BRUSHING TEETH. REPEAT TWICE DAILY UNTIL SYMPTOMS RESOLVE USE FOR 25 DAYS THEN DISCARD REMAINDER Active OneTouch Delica Plus Lancet 30 gauge misc 12/26/[address] (CYMBALTA) 30 mg capsule 01/01/20 24 Active gabapentin (NEURONTIN) 300 mg capsule 01/01/20 24 Active Active Problems Problem Noted Date Diagnosed Date Strain of calf muscle 02/22/2020 Adiposity 11/18/2011 Overview (06/03/2016): Obesity Hypersomnia 11/18/2011 Overview (06/03/2016): Hypersomnia Obstructive sleep apnea syndrome in adult 2011 Overview (06/03/2016): Obstructive sleep apnea syndrome in adult Hay fever 09/08/2011 Cough 09/08/2011 Sinusitis 09/08/2011 Allergic rhinitis due to pollen 09/08/2011 Chronic infection of sinus 09/08/2011 Social History Tobacco Use Types Packs/Day Years Used Date Smoking Tobacco: Never Passive Smoke Exposure: Current Smokeless Tobacco: Never Tobacco Cessation:Counseling Given: Not Answered Alcohol Use Standard Drinks/Week Comments No 0 (1 standard drink = 0.6 oz pur e alcohol) AUDIT-C Answer Date Recorded Q1: How often do you have a drink containing alcohol? Never 01/03/2024 Q2: How many drinks containi ng alcohol do you have on a typical day when you are drinking? Patient does not drink Q3: How often do you have si x or more drinks on one occasion? Never 01/03/2024 Hunger Vital Sign Answer Date Recorded Within the past 12 months, y ou worried that your food would run out before you got the money to buy more. Never true 08/26/19 23 Within the past 12 months, t he food you bought just didn't last and you didn't have money to get more. Never true 08/25/2022 Personal Safety Answer Date Recorded Have you ever been in or are you currently in a harmful physical or emotional relationship or is someone making you feel afraid or unsafe? Denies 12/26/2023 Comments No Sex and Gender Information Value Date Recorded Sex Assigned at Not on file Legal Sex Female 6:59 AM WELFARE INVESTIGATOR Gender Identity Not on file Sexual Orientation Not on file Last Filed Vital Signs Vital Sign Reading Time Taken Comments Blood Pressure 118/71 01/03/2024 11:05 AM WELFARE INVESTIGATOR Pulse 91 01/03/2024 11:05 AM WELFARE INVESTIGATOR Temperature 36.9 ??C (98.4 ??F) 01/03/2024 11:[address] Respiratory Rate 16 01/03/2024 11:05 AM WELFARE INVESTIGATOR Oxygen Saturation 94% 01/03/2024 11:05 AM WELFARE INVESTIGATOR Room air Inhaled Oxygen Concentration - - Weight 125.6 kg (277 lb) 01/03/2024 11:05 AM WELFARE INVESTIGATOR Height 157.5 cm (5' 2 ) 01/03/2024 11:05 AM WELFARE INVESTIGATOR Body Mass Index 50.66 01/03/2024 11:05 AM WELFARE INVESTIGATOR Plan of Treatment Not on file Goals Goal Patient Goal Type Associated Problems Recent Progress Patient-Stated? Author CCM Chronic Pain Care Plan Chronic Care Management Worsening(0 11/08/2023 2:01 PM CDT) Nidhi Benedict, RN Note: Problem: Chronic Pain Goals: 1. Minimize further functional decline 2. Maximize quality of life 3. Control pain Strategies: - Activity/exercise program recommendation - Conservative stepwise pain medicine strategy with multi-disciplinary approach - Recommend healthy lifestyle strategies and compensatory methods as needed Procedures Procedure Name Priority Date/Time Associated Diagnosis Comments XR LUMBAR SPINE AP LAT FLEX EX Schedule Routine, Read Routine (OP Routine) 01/03/2024 12:47 PM WELFARE INVESTIGATOR Spondylolisthesis at L5-S1 level ECG 12-LEAD Routine 12/26/2023 12:43 PM CDT POCT GLUCOSE DEVICE Routine 12/26/2023 5 :55 AM CDT EGFR STAT 12/26/2023 5:50 AM CDT HCG, URINE, QUALITATIVE STAT 12/26/2023 5:50 AM CDT URINALYSIS, MICROSCOPIC ONLY STAT 12/26/2023 5:50 AM CDT DIFFERENTIAL AUTO STAT 12/26/2023 5:5 0 AM CDT DRUGS OF ABUSE SCREEN, URINE WITHOUT CONFIRMATION STAT 12/26/2023 5:50 AM CDT ETHANOL STAT 12/26/2023 5:50 AM CDT THYROID FUNCTION CASCADE STAT 12/26/2023 5:50 AM CDT COMPREHENSIVE METABOLIC PANEL STAT 12/26/2023 5:50 AM CDT CBC WITH AUTO DIFFERENTIAL STAT 12/26/2023 5:50 AM CDT URINE CULTURE STAT 12/26/2023 5:50 AM CDT INFLUENZA A/B, RSV, AND COVID-19 PCR Routine 12/26/2023 5:50 AM CDT URINALYSIS AND REFLEX TO MICROSCOPIC AND CULTURE STAT 12/26/2023 5:50 AM CDT ACETAMINOPHEN LEVEL Add-On 12/26/2023 5 :49 AM CDT SALICYLATE LEVEL Add-On 12/26/2023 5:49 AM CDT from Last 3 Months Results * XR Spine Lumbar Ap Lat Flex Ext min 4 Views (01/03/2024 12:47 PM WELFARE INVESTIGATOR) Anatomical Region Laterality Modality L-spine N/A Computed Radiogr aphy 01/03/2024 12:5 0 PM WELFARE INVESTIGATOR Impressions 01/03/2024 12:50 PM WELFARE INVESTIGATOR 1. ??Severe L5-S1 spondylosis with grade 2 spondylolytic spondylolisthesis Electronically signed by: Shikha Barnes MD Narrative 01/03/2024 12:50 PM WELFARE INVESTIGATOR EXAMINATION: XR SPINE LUMBAR AP LAT FLEX EXT MIN 4 VIEWS HISTORY: ??Back pain. FINDINGS: Comparison is made to 09/16/2023. Unchanged L5-S1 destruction with grade 2 anterolisthesis, unchanged with bending. ??Findings may be degenerative or post infectious in etiology. ??Vertebral body heights and disc spaces otherwise preserved. ??Bilateral L5 pars defects. Procedure Note Shikha Barnes MD - 01/03/2024 EXAMINATION: XR SPINE LUMBAR AP LAT FLEX EXT MIN 4 VIEWS HISTORY: Back pain. FINDINGS: Comparison is made to 09/16/2023. Unchanged L5-S1 destruction with grade 2 anterolisthesis, unchanged with bending. Findings may be degenerative or post infectious in etiology. Vertebral body heights and disc spaces otherwise preserved. Bilateral L5 pars defects. IMPRESSION: 1. Severe L5-S1 spondylosis with grade 2 spondylolytic spondylolisthesis Electronically signed by: Shikha Barnes MD Toñito Rust DO IMG XR PROCEDURES Final Result * ECG 12 lead (12/26/2023 12:43 PM CDT) 12/26/2023 12:4 3 PM CDT Narrative [facility] - 12/27/2023 8:05 AM CDT Vent Rate: 87 bpm RR Interval: 682 msec IN Interval: 135 msec QRS Duration: 102 msec QT Interval: 368 msec QTC Interval: 413 msec P-R-T [place]: 34 - -14 - 26 degrees IMPRESSION: SINUS RHYTHM VOLTAGE CRITERIA FOR LVH ??[MEETS CRITERIA IN ONE OF: R(aVL), S(V1), R(V5), R(V5/V6)+S(V1)] ABNORMAL ECG No change compared to prior EKG Electronically Signed By: Ken Woods MD [facility] Ilya Mesa MD ECG ORDERABLES Fin al Result [facility] * POCT glucose (12/26/2023 5:55 AM CDT) Pathologist [facility] Glucose, POC 167 70 - 199 mg/dL Blood 12/26/2023 5:55 AM CDT 12/26/2023 5:55 AM CDT Notinfile Unknown LAB POCT ORDERABLES - DEVICE F inal Result [facility] ([facility]) [address] [facility] [place] [address] * Influenza A/B, RSV, and COVID-19 PCR Nasopharyngeal (12/26/2023 5:50 AM CDT) [facility] COVID-19 RNA Negative Negative Influenza A RNA Negative Negative [facility] ([facility]) Influenza B RNA Negative Negative [facility] RSV RNA Negative Negative [facility] ([facility] Comment: Interpretive data: Testing performed by [facility]. This test is performed using the Welcome Real-time Xpert Xpress CoV-2/Flu/RSV plus assay. This is a multiplex, real- time reverse transcriptase PCR assay intended for the qualitative detection of nucleic acid from SARS-CoV-2, influenza A, influenza B, and respiratory syncytial virus. This assay has been cleared by the [place] Food and Drug administration. The performance characteristics have been verified by the [facility]. ?? Results must be considered in the clinical context, and a negative result does not rule out infection. Interpretive Data last revised 2023 Nasopharyngeal 12/26/2023 5: 50 AM CDT 12/26/2023 5:54 AM CDT Narrative [facility] - 12/26/2023 6:43 AM CDT Is the Patient experiencing symptoms consistent with COVID?->No Gt Knox MD LAB MICROBIOLOGY - GENERAL O RDERABLES Final Result [facility] [address] [facility] [place] [address] * eGFR (12/26/2023 5:50 AM CDT) eGFR >90 >=60 mL/min/1. 73 m2 Comment: Interpretive Data Reference Interval Normal ?>/= 90 mL/min/1.73m2 Mildly decreased* ? 60 - 89 mL/min/1.73m2 Mildly to moderately decreased ?45 - 59 mL/min/1.73m2 Moderately to severely decreased ??30 - 44 mL/min/1.73m2 Severely decreased ?15 - 29 mL/min/1.73m2 Kidney Failure ?< 15 ??mL/min/1.73m2 *Relative to young adult level Estimated glomerular filtration rate is determined by the 2020 CKD-EPI equation recommended by the National Kidney Foundation (A Unifying Approach to GFR Estimation: Recommendations of the NKF-ASK Task Force on Reassessing the Inclusion of Race in Diagnosing Kidney Disease, JASN 2020). The CKD-EPI equation should not be used for patients with unstable renal function and has not been validated in children and those over 70. Current interpretive data was last reviewed 2020. Blood 12/26/2023 5:50 AM CDT 12/26/2023 5:54 AM CDT us Gt Knox MD LAB BLOOD ORDERABLES Final R esult [facility] [address] [facility] [place] [address] * Differential, auto (12/26/2023 5:50 AM CDT) Neutrophil abs 5.5 1.5 - 6.5 K/cumm Imm gran abs 0.0 0.0 - 0.1 K/cumm [facility]) Lymphocyte abs 2.2 0.8 - 3.3 K/cumm [facility]) Monocyte abs 0.5 0.2 - 0.8 K/cumm [facility]) Eosinophil abs 0.1 0.0 - 0.5 K/cumm [facility]) Basophil abs 0.0 0.0 - 0.1 K/cumm [facility] Neutrophil pct 66.0 % [facility] Comment: Interpretive Data Percent cell count reference ranges are not reported, since discordance with absolute values may lead to misinterpretation of CBC data. Current Interpretive Data was last revised on 2017. Imm gran pct 0.2 % [facility] Comment: Interpretive Data Percent cell count reference ranges are not reported, since discordance with absolute values may lead to misinterpretation of CBC data. Current Interpretive Data was last revised on 2017. Lymphocyte pct 25.9 % [facility] Comment: Interpretive Data Percent cell count reference ranges are not reported, since discordance with absolute values may lead to misinterpretation of CBC data. Current Interpretive Data was last revised on 2017. Monocyte pct 6.1 % [facility] Comment: Interpretive Data Percent cell count reference ranges are not reported, since discordance with absolute values may lead to misinterpretation of CBC data. Current Interpretive Data was last revised on 2017. Eosinophil pct 1.3 % [facility] Comment: Interpretive Data Percent cell count reference ranges are not reported, since discordance with absolute values may lead to misinterpretation of CBC data. Current Interpretive Data was last revised on 2017. Basophil pct 0.5 % [facility] Comment: Interpretive Data Percent cell count reference ranges are not reported, since discordance with absolute values may lead to misinterpretation of CBC data. Current Interpretive Data was last revised on 2017. Blood 12/26/2023 5:50 AM CDT 12/26/2023 5:54 AM CDT Gt Knox MD LAB BLOOD ORDERABLES Final R esult Performing Organization Address [facility] Co de Phone Number [facility] 1 [facility] [place] [address] * Thyroid Function [place] (12/26/2023 5:50 AM CDT) Pathologist [facility] TSH 3.42 0.30 - 4.20 mcIUnit/mL Blood 12/26/2023 5:50 AM CDT 12/26/2023 5:54 AM CDT tG Knox MD LAB BLOOD ORDERABLES Final R esult Performing Organization Address [facility] Co de Phone Number [facility] 1 [facility] [place] [address] * (ABNORMAL) Urinalysis reflex to microscopic and culture Urine (12/26/2023 5:50 AM CDT) Color, ur Yellow Yellow Clarity, ur Turbid(A) Clear [facility] Specific gravity, ur 1.017 1.003 - 1.030 [facility] pH, urine 6.5 [facility] Comment: Interpretive Data ? Urine pH is affected by diet, medications, systemic acid-base disturbances, and renal tubular function. ??pH may affect urinary stone formation. ??For example, urine pH below 6.0 may help reduce the tendency for calcium phosphate stones and pH greater than 6.0 may reduce the tendency for uric acid stone formation. Source: [facility] [place] Current Interpretive Data was last revised on 2017 Protein, ur ql Trace Negative [facility] Glucose, ur ql Negative Negative [facility] Ketones, ur Negative Negative [facility] Bilirubin, ur Negative Negative [facility] Blood, ur 1+(A) Negative [facility]) Urobilinogen, ur <2.0 <2.0 mg/dL [facility] Nitrite, ur Positive(A) Negative [facility]) Leukocyte esterase, ur 3+(A) Negative [facility]) UA reflex comment Reflex to microscopic UA will be performed. [facility] Urine 12/26/2023 5:50 AM CDT 12/26/2023 5:54 AM CDT Gt Knox MD LAB MICROBIOLOGY - GENERAL O RDERABLES Final Result [facility] ([place]) [address] [facility] [place] [address] * CBC with auto differential (12/26/2023 5:50 AM CDT) WBC 8.4 3.8 - 9.9 K/cumm Hgb 13.3 11.9 - 15.5 g/dL [facility] Hct 39.6 35.6 - 45.5 % [facility] Plt 207 150 - 400 K/cumm [facility] MPV 11.0 9.1 - 12.3 fL [facility] RBC 4.33 3.90 - 5.20 M/cumm [facility] MCV 91.5 81.3 - 96.4 fL [facility] MCH 30.7 27.1 - 33.3 pg [facility] MCHC 33.6 32.3 - 35.7 g/dL [facility] RDW CV 13.2 11.1 - 14.9 % [facility] RDW SD 43.4 35.7 - 48.1 fL [facility] NRBC abs 0.00 0.00 - 0.01 K/cumm [facility] Blood (Blood, Venous) 12/26/2023 5:50 AM CDT 12/26/2023 5:54 AM CDT Gt Knox MD LAB BLOOD ORDERABLES Final R esult [facility] [address] [facility] Department of Laboratories [place] [id number] * (ABNORMAL) Drugs of Abuse Screen, Urine without Confirmation (12/26/2023 5:50 AM CDT) [facility] Amphetamine, ur Not Detected CutOff 500ng/mL Comment: Interpretive Data - Amphetamines: ??Samples containing greater than 500 ng/mL d-methamphetamine ??or other cross-reacting amphetamine compounds are reported as positive. ??Amphetamine immunoassays are subject to significant false positive rates due to cross-reactivity of non-amphetamine drugs. Confirmatory testing required for definitive results. Current Interpretive Data was last reviewed 2022. Barbiturates, ur Not Detected CutOff 200ng/mL [facility] Comment: Interpretive Data - Barbiturates: ??Samples containing greater than 200 ng/mL secobarbital or other cross-reacting barbiturate compounds are reported as positive. ??False positive and false negative results are possible. Confirmatory testing required for definitive results. Current Interpretive Data was last reviewed 2022. Benzodiazepines, ur Not Detected CutOff 100ng/mL [facility] Comment: Interpretive Data - Benzodiazepines: ??Samples containing greater than 100 ng/mL nordiazepam or other cross-reacting compounds are reported as positive. False positive and false negative results are possible. Confirmatory testing required for definitive results. Current Interpretive Data was last reviewed 2022. Cannabinoids, ur Not Detected CutOff 50 ng/mL [facility] Comment: Interpretive Data - Cannabinoids: ??Samples containing greater than 50 ng/mL delta-9 THC -COOH or other cross-reacting compounds are reported as positive. ??False positive and false negative results are possible. ??Confirmatory testing required for definitive results. Current Interpretive Data was last reviewed 2022. Cocaine, ur Screen Positive, presumptive (A) CutOff 150ng/mL [facility] Comment: Interpretive Data - Cocaine: ??Samples containing greater than 150 ng/mL benzoylecgonine or other cross-reacting compounds are reported as positive. False positive and false negative results are possible. Confirmatory testing required for definitive results. Current Interpretive Data was last reviewed 2022. Fentanyl, Ur Not Detected CutOff 5 ng/mL [facility] Comment: Interpretive Data - Fentanyl: ??Samples containing greater than 5 ng/mL norfentanyl, fentanyl, or other cross-reacting fentanyl compounds are reported as positive. False positive and false negative results are possible. Confirmatory testing required for definitive results. Current Interpretive Data was last reviewed 2023. Methadone, ur Not Detected CutOff 300ng/mL [facility] ([place] Comment: Interpretive Data - Methadone: ??Samples containing greater than 300 ng/mL d,l-methadone or other cross-reacting compounds are reported as positive. ??False positive and false negative results are possible. Confirmatory testing required for definitive results. Current Interpretive Data was last reviewed 2022. Opiates, ur Not Detected CutOff 300ng/mL [facility] Comment: Interpretive Data - Opiates: ??Samples containing greater than 300 ng/mL morphine or other cross-reacting compounds are reported as positive. ??False positive and false negative results are possible. Confirmatory testing required for definitive results. Current Interpretive Data was last reviewed 2022. Oxycodone, ur Not Detected CutOff 100ng/mL [facility] Comment: Interpretive Data - Oxycodone: ??Samples containing greater than 100 ng/mL oxycodone or other cross-reacting compounds are reported as ??positive. ??False positive and false negative results are possible. Confirmatory testing required for definitive results. Current Interpretive Data was last reviewed 2022. Phencyclidine, ur Not Detected CutOff 25 ng/mL [facility] Comment: Interpretive Data - Phencyclidine: ??Samples containing greater than 25 ng/mL phencyclidine or other cross-reacting compounds are reported as positive. ??False positive and false negative results are possible. Confirmatory testing required for definitive results. Current Interpretive Data was last reviewed 2022. Urine Creatinine 114 mg/dL [facility] [facility] ([place] Comment: Interpretive Data Urine Creatinine: < 10 mg/dL is extremely dilute = or > 10 but < 20 mg/dL is dilute = or > 20 mg/dL is normal Current Interpretive Data was last revised on 2017. Urine 12/26/2023 5:50 AM CDT 12/26/2023 5:55 AM CDT Narrative LAITH [facility] ([place]) - 12/26/2023 6:44 AM CDT Drug of Abuse screening is performed by immunoassay for medical purposes only. ??This is not to be used for Pain Management purposes. Gt Knox MD LAB URINE ORDERABLES Final R esult Performing Organization Address City/[facility]/[place] Co de Phone Number LAITH [place] ([place]) [address] [facility] [place] [address] * hCG, urine, qualitative (12/26/2023 5:50 AM CDT) HCG, ur Negative Negative Urine 12/26/2023 5:50 AM CDT 12/26/2023 9:36 AM CDT Ilya Mesa MD LAB URINE ORDERABLE S Final Result Performing Organization Address City/[facility]/[place] Co de Phone Number LAITH [facility] ([place]) [address] [facility] [place] [address] * (ABNORMAL) Urinalysis, microscopic only (12/26/2023 5:50 AM CDT) WBC, ur 21-50(A) 0 - 5 /HPF RBC, ur 0-2 0 - 2 /HPF [facility] ([place]) Epithelial cells, squamous, ur 6-10(A) 0 - 5 /HPF [facility] ([place]) Bacteria, ur 3+(A) [facility] ([place]) Mucous, ur Present(A) [facility] ([place]) Culture Reflex Comment Reflex to urine culture will be performed. [facility] ([place]) Urine 12/26/2023 5:50 AM CDT 12/26/2023 5:54 AM CDT Gt Knox MD LAB URINE ORDERABLES Final R esult Performing Organization Address [facility]/[place] Co de Phone Number LAITH [facility] ([place]) [address] [facility] [place] [address] * (ABNORMAL) Urine culture Urine (12/26/2023 5:50 AM CDT) Report Final Report: Greater than or equal to 100,000 colonies/mL of Klebsiella pneumoniae Greater than or equal to 100,000 colonies/mL of Klebsiella pneumoniae #2 Greater than or equal to 100,000 colonies/mL of Escherichia coli (.) Comment:Testing performed by : [facility], 1 [facility], [place]., [address] Organism KLEBSIELLA PNEUMONIAE [facility] ([place]) Organism KLEBSIELLA PNEUMONIAE [facility] ([place]) Organism ESCHERICHIA COLI [facility] ([place]) Urine 12/26/2023 5:50 AM CDT 12/26/2023 9:30 AM CDT Narrative [facility] ([place]) - 12/29/2023 10:03 AM CDT Urine culture reflexed based upon urinalysis results. Testing performed by [facility] Laboratory ([phone]) Organism Antibiotic Method Susceptibility Klebsiella pneumoniae Ampicillin INTERPRETATION Resistant Klebsiella pneumoniae Cefazolin INTERPRETATION Susceptible Klebsiella pneumoniae Nitrofurantoin INTERPRETATION Susceptible Klebsiella pneumoniae Gentamicin INTERPRETATION Susceptible Klebsiella pneumoniae Trimethoprim with Sulfamethoxazole INTERPRETATION Susceptible Klebsiella pneumoniae Meropenem INTERPRETATION Susceptible Klebsiella pneumoniae Cefepime INTERPRETATION Susceptible Klebsiella pneumoniae Ciprofloxacin INTERPRETATION Susceptible Klebsiella pneumoniae Ceftazidime INTERPRETATION Susceptible Klebsiella pneumoniae Ceftriaxone INTERPRETATION Susceptible Klebsiella pneumoniae Piperacillin/Tazobactam INTERPRE TATION Susceptible Klebsiella pneumoniae Cephalexin INTERPRETATION Susceptible Klebsiella pneumoniae Cefuroxime-axetil INTERPRETATION Susceptible Klebsiella pneumoniae Cefdinir INTERPRETATION Susceptible Klebsiella pneumoniae Ampicillin INTERPRETATION Resistant Klebsiella pneumoniae Cefazolin INTERPRETATION Susceptible Klebsiella pneumoniae Nitrofurantoin INTERPRETATION Susceptible Klebsiella pneumoniae Gentamicin INTERPRETATION Susceptible Klebsiella pneumoniae Trimethoprim with Sulfamethoxazole INTERPRETATION Susceptible Klebsiella pneumoniae Meropenem INTERPRETATION Susceptible Klebsiella pneumoniae Cefepime INTERPRETATION Susceptible Klebsiella pneumoniae Ciprofloxacin INTERPRETATION Susceptible Klebsiella pneumoniae Ceftazidime INTERPRETATION Susceptible Klebsiella pneumoniae Ceftriaxone INTERPRETATION Susceptible Klebsiella pneumoniae Piperacillin/Tazobactam INTERPRE TATION Susceptible Klebsiella pneumoniae Cephalexin INTERPRETATION Susceptible Klebsiella pneumoniae Cefuroxime-axetil INTERPRETATION Susceptible Klebsiella pneumoniae Cefdinir INTERPRETATION Susceptible Escherichia coli Ampicillin INTERPRETATION Resistant Escherichia coli Cefazolin INTERPRETATION Susceptible Escherichia coli Nitrofurantoin INTERPRETATION Susceptible Escherichia coli Gentamicin INTERPRETATION Susceptible Escherichia coli Trimethoprim with Sulfamethoxazole INTERPRETATION Resistant Escherichia coli Meropenem INTERPRETATION Susceptible Escherichia coli Cefepime INTERPRETATION Susceptible Escherichia coli Ciprofloxacin INTERPRETATION Susceptible Escherichia coli Ceftazidime INTERPRETATION Susceptible Escherichia coli Ceftriaxone INTERPRETATION Susceptible Escherichia coli Piperacillin/Tazobactam INTERPRETATIO N Susceptible Escherichia coli Cephalexin INTERPRETATION Susceptible Escherichia coli Cefuroxime-axetil INTERPRETATION Susceptible Escherichia coli Cefdinir INTERPRETATION Susceptible us Gt Knox MD LAB MICROBIOLOGY - GENERAL O RDERABLES Final Result Performing Organization Address City/State/[place] Co de Phone Number LAITH [facility] [place] [address] [facility] [place] [address] * Ethanol (12/26/2023 5:50 AM CDT) Ethanol <10 <=10 mg/dL Comment: Interpretive Data Legal limit of intoxication > or = 80 mg/dL Levels > or = 400 mg/dL are potentially TOXIC. Current interpretive data was last revised on 2018. Blood 12/26/2023 5:50 AM CDT 12/26/2023 5:54 AM CDT us Gt Knox MD LAB BLOOD ORDERABLES Final R esult [facility] ([place]) [address] [facility] [place] [address] * (ABNORMAL) Comprehensive metabolic panel (12/26/2023 5:50 AM CDT) Sodium 138 135 - 145 mmol/L Potassium, pl 3.9 3.3 - 4.9 mmol/L [facility] ([place]) Chloride 99 97 - 110 mmol/L [facility] ([place]) CO2 27 22 - 32 mmol/L [facility] ([place]) Anion gap 12 2 - 15 mmol/L [facility] ([place]) BUN 13 6 - 25 mg/dL [facility] ([place]) Creatinine 0.59(L) 0.60 - 1.10 mg/dL [facility] ([place]) Glucose 166 70 - 199 mg/dL [facility] ([place]) Comment: Interpretive Data Fasting glucose >/= 126 mg/dl is diagnostic for diabetes. ?? Fasting is defined as no caloric intake for at least 8 hours. Fasting glucose between 100 mg/dl to 125 mg/dl is diagnostic of prediabetes. In a patient with classic symptoms of hyperglycemia or hyperglycemic crisis, a random glucose >/= 200 mg/dl is diagnostic for diabetes. In the absence of unequivocal hyperglycemia, results should be confirmed by repeat testing. The classification and Diagnosis of Diabetes Diabetes Care 2021; 46: S19-S40. Current interpretive data was last revised 2022. Calcium 8.8 8.5 - 10.3 mg/dL [facility] ([place]) Bilirubin, total 0.3 0.1 - 1.2 mg/dL [facility] ([place]) Protein, pl 7.5 6.5 - 8.5 g/dL [facility] ([place]) Albumin 4.0 3.5 - 5.0 g/dL [facility] ([place]) Alk phos 81 40 - 130 Units/L [facility] ([place]) ALT 33 7 - 45 Units/L [facility] ([place]) AST 21 10 - 45 Units/L [facility] ([place]) Blood 12/26/2023 5:50 AM CDT 12/26/2023 5:54 AM CDT us Gt Knox MD LAB BLOOD ORDERABLES Final R esult Performing Organization Address [facility]/[place] Co de Phone Number LAITH [place] ([place]) 1 [facility] [place] [address] * Acetaminophen level (12/26/2023 5:49 AM CDT) Acetaminophen <5 <=5 mcg/mL Comment: Markedly elevated levels of Acetaminophen and it's metabolites may lead to false low test results for cholesterol, HDL, triglycerides and uric acid with the manufacturers test methods used by our lab. Interpretive Data Significant hepatic injury may occur and treatment with n-acetyl cysteine is generally recommended if the acetaminophen level exceeds: 150 mcg/mL at 4 hours after ingestion ??75 mcg/mL at 8 hours after ingestion ??38 mcg/mL at 12 hours after ingestion ??19 mcg/mL at 16 hours after ingestion Consult toxicology or poison control ([phone]) for unknown ingestion time. Current interpretive data was last revised 2022. Blood 12/26/2023 5:49 AM CDT 12/26/2023 7:22 AM CDT us Ilya Mesa MD LAB BLOOD ORDERABLE S Final Result Performing Organization Address [facility]/[place] Co de Phone Number LAITH [place] ([place] 1 [facility] [place] [address] * Salicylate level (12/26/2023 5:49 AM CDT) Salicylate <5.0 <=5.0 mg/dL Comment: Interpretive Data Toxic: 30 mg/dL or greater. Current interpretive data was last revised 2022. Blood 12/26/2023 5:49 AM CDT 12/26/2023 7:22 AM CDT us Ilya Mesa MD LAB BLOOD ORDERABLE S Final Result [facility] [place]) [address] [facility] [place] [address] from Last 3 Months Insurance [facility] Care Teams Web Offset Press Feeder Relationship Specialty Start Date End Date Daja Kern MD [address] [address] [place] [id number] PCP - General 09/10/19
--- OUTSIDE RECORDS SUMMARY | 2024-03-03 19:37 | XMS_ITS | Encounter Summary ---
Author Organization [facility] Healthcare Address [address] [place] [address] Care Team Providers Care [employer] Name Role Phone Daja Kern MD Primary Care Provider [phone] Reason for Referral * MRI/CAT/PET Scan (Routine) - Closed Specialty Diagnoses / Procedures Referred By Contac t Referred To Contact Radiology Diagnoses Lumbar radiculopathy Procedures MRI Lumbar Spine WO Contrast Hipolito Parikh MD PhD [address] [place] [address] Phone: tel:[phone] fax: [address] [phone] Referral ID Status Reason Start Date Expiration Date Visits Re quested Visits Authorized [id number] Closed 09/04/2023 10/03/2024 1 1 Reason for Visit * MRI/CAT/PET Scan (Routine) - Closed Specialty Diagnoses / Procedures Referred By Contac t Referred To Contact Radiology Diagnoses Lumbar radiculopathy Procedures MRI Lumbar Spine WO Contrast Hipolito Parikh MD PhD [address] [place] [address] Phone: tel:[phone] fax: [address] [phone] Referral ID Status Reason Start Date Expiration Date Visits Re quested Visits Authorized [id number] Closed 09/04/2023 10/03/2024 1 1 Encounter Details Date Type Department Care Team (Latest Contact Info) Description 09/18/2023 10:53 AM CDT - 09/18/2023 11:59 PM CDT Hospital Encounter [facility] [address] [place] [address] Lumbar radiculopathy Discharge Disposition: Discharge to home or self care Social History Tobacco Use Types Packs/Day Years Used Date Smoking Tobacco: Never Passive Smoke Exposure: Current Smokeless Tobacco: Never Alcohol Use Standard Drinks/Week Comments No 0 (1 standard drink = 0.6 oz pur e alcohol) AUDIT-C Answer Date Recorded Q1: How often do you have a drink containing alcohol? Never 09/04/2023 Q2: How many drinks containi ng alcohol do you have on a typical day when you are drinking? Patient does not drink Q3: How often do you have si x or more drinks on one occasion? Never 09/04/2023 Hunger Vital Sign Answer Date Recorded Within [...] making you feel afraid or unsafe? Denies 03/27/2023 Comments No Sex and Gender Information Value Date Recorded Sex Assigned at Not on file Legal Sex Female 6:59 AM [employer] Gender Identity Not on file Sexual Orientation Not on file documented as of this encounter Medications at Time of Discharge Abilify Maintena 400 mg IM injection 02/10/2023 albuterol HFA (PROVENTIL HFA,VENTOLIN HFA,PROAIR HFA) 90 mcg/actuation inhaler Inhale 2 puffs every 6 (six) hours as needed 02/10/2022 ARIPiprazole (ABILIFY) 10 mg tablet Take 1 tablet (10 mg total) by mouth daily benztropine (COGENTIN) 0.5 mg tablet 08/22/[address] (CYMBALTA) 60 mg capsule 10/17/2022 fluticasone propionate (FLONASE) 50 mcg/actuation nasal spray 2 sprays daily As needed 10/17/2022 hydrOXYzine (ATARAX) 25 mg tablet 08/21/2023 irbesartan (AVAPRO) 150 mg tablet Take 1 tablet (150 mg total) by mouth daily 10/18/2019 irbesartan-hydrochlo rothiazide (AVALIDE) 150-12.5 mg per tablet daily levothyroxine (SYNTHROID) 50 mcg tablet 11/12/2019 lidocaine (LIDODERM) 5 % 07/26/2022 loperamide (IMODIUM) 2 mg capsule Take 1 capsule (2 mg total) by mouth every 8 (eight) hours as needed for diarrhea 01/05/2023 metFORMIN XR (GLUCOPHAGE XR) 500 mg 24 hr tablet Take 1 tablet (500 mg total) by mouth daily with breakfast 03/07/2023 multivitamin with minerals tablet Take 1 tablet by mouth daily 01/06/2023 omeprazole (PriLOSEC) 40 mg capsule Take 1 capsule (40 mg total) by mouth daily 02/06/2019 ondansetron ODT (ZOFRAN-ODT) 4 mg disintegrating tablet Take 1 tablet (4 mg total) by mouth every 6 (six) hours as needed 01/05/2023 senna (SENOKOT) 8.6 mg tablet Take 2 tablets by mouth nightly as needed 01/05/2023 simvastatin (ZOCOR) 10 mg tablet 11/12/2019 traZODone (DESYREL) 100 mg tablet TK 1 T PO HS 09/24/2019 triamterene-hydroCHL OROthiazide 37.5-25 mg per tablet 03/06/2023 gabapentin (NEURONTIN) 600 mg tabletIndications:Era mbar radiculopathy Take 1.5 tablets (900 mg total) by mouth 3 (three) times a day 135 tablet 09/04/2023 4 metoprolol XL (TOPROL-XL) 25 mg extended release tablet 2 tablets (50 mg total) daily 08/22/2022 4 nitrofurantoin monohydrate (MACROBID) 100 mg capsule Take 1 capsule (100 mg total) by mouth 2 (two) times a day 14 capsule 12/20/2022 4 tiZANidine (ZANAFLEX) 4 mg tablet Take 1 tablet (4 mg total) by mouth 2 (two) times a day 60 tablet 2 08/21/2023 4 documented as of this encounter Discharge Disposition Disposition Code Departure Means Destination Discharge to home or self care documented in this encounter Plan of Treatment Not on file documented as of this encounter Goals Goal Patient Goal Type Associated Problems Recent Progress Patient-Stated? Author CCM Chronic Pain Care Plan Chronic Care Management Worsening(0 11/08/2023 2:01 PM CDT) No Nidhi Angelo RN Note: Problem: Chronic Pain Goals: 1. Minimize further functional decline 2. Maximize quality of life 3. Control pain Strategies: - Activity/exercise program recommendation - Conservative stepwise pain medicine strategy with multi-disciplinary approach - Recommend healthy lifestyle strategies and compensatory methods as needed documented as of this encounter Procedures Procedure Name Priority Date/Time Associated Diagnosis Comments MRI LUMBAR SPINE WO CONTRAST Schedule Routine, Read Routine (OP Routine) 09/18/2023 11:34 AM CDT Lumbar radiculopathy documented in this encounter Results * MRI Lumbar Spine WO Contrast (09/18/2023 11:34 AM CDT) Anatomical Region Laterality Modality Spine N/A Magnetic Resonan ce 09/18/2023 12:3 9 PM CDT Narrative 09/18/2023 12:43 PM CDT EXAM DESCRIPTION: ?? MRI LUMBAR SPINE WO CONTRAST REASON FOR STUDY: Chronic nontraumatic lower back pain, with pain and tingling radiating down the bilateral legs, 10 years, though progressively increasing. ?? Difficulty walking. ??No provided history of inciting and/or aggravating events. ??No provided past medical or surgical history. ?? TECHNIQUE: ??Sagittal and axial imaging of the lumbar spine includes T1, T2, STIR sequences. ?? Images saved to PACS. COMPARISON: ?? Relevant portions of CT abdomen pelvis without contrast 12/20/2022. FINDINGS: SEGMENTATION: ?? No lumbosacral transitional anatomy. ??The lowest fully formed intervertebral disc level is labeled L5-S1. ALIGNMENT: ?? Redemonstration of grade 1 anterolisthesis L5 on S1 in association with bilateral L5 pars interarticularis defects. VERTEBRAE: ?? No MR evidence of acute-subacute fracture. ??Vertebral body heights unchanged. ??Spondylosis to include robust endplate degenerative changes at L5-S1 correlating with robust sclerotic and erosive endplate degenerative changes on prior CT imaging. ?? Tiny hemangioma L3 vertebral body. DISC HEIGHT: ?? Vacuum disc phenomenon, intervertebral disc desiccation, and loss of intervertebral disc height at L5-S1. HARDWARE: ?? None in the lumbar spine. CORD/CAUDA: ?? Normal in size and signal intensity with conus medullaris termination at L2, noting there is a component of epidural lipomatosis. LOWER THORACIC: ?? Incompletely imaged. ??No stenosis demonstrated. INDIVIDUAL DISC LEVELS: L1-2: ?? No diffuse disc bulge or focal herniation. ??Bilateral hypertrophic facet arthropathy. ??No spinal canal stenosis. ??No neural foraminal stenosis. L2-3: ?? No diffuse disc bulge or focal herniation. ??Bilateral hypertrophic facet arthropathy. ??No spinal canal stenosis. ??No neural foraminal stenosis. L3-4: ?? No diffuse disc bulge or focal herniation. ??Bilateral hypertrophic facet arthropathy. ??No spinal canal stenosis. ??No neural foraminal stenosis. L4-5: ?? No diffuse disc bulge or focal herniation. ??Bilateral hypertrophic facet arthropathy. ??No spinal canal stenosis. ??No neural foraminal stenosis. L5-S1: ?? Uncovering of the intervertebral disc, posterior osteophytosis, and annular disc bulge. ??Bilateral hypertrophic facet arthropathy. ??No spinal canal stenosis, noting epidural lipomatosis narrows the residual thecal sac at this level. ??Severe bilateral neural foraminal stenosis, noting combination of inferior pedicular surface, osteophytosis/disc, and arthropathic facet contact with exiting bilateral L5 nerve roots. SACRUM: ?? Visualized upper sacrum intact. VISUALIZED UPPER ABDOMEN: ?? Partial incidental visualization of posterior right hepatic lobe cyst better evaluated on prior abdominopelvic CT imaging. OTHER: ?? No other significant findings. IMPRESSION: ??Constellation of spondylolisthesis, spondylolysis, spondylosis, degenerative disc disease, and a component of epidural lipomatosis of the lumbar spine as detailed level by level above, maximal at L5-S1. THIS IS AN ELECTRONICALLY VERIFIED FINAL REPORT 09/18/2023 12:43 PM - Electronically signed by ??Sawyer Ramirez M.D. TIGN: TING D: ??09/18/2023 12:43 PM T: ??09/18/2023 12:43 PM Report ID: [id number] Reading Location: ??[id number] Procedure Note Sawyer Ramirez MD - 09/18/2023 EXAM DESCRIPTION: MRI LUMBAR SPINE WO CONTRAST REASON FOR STUDY: Chronic nontraumatic lower back pain, with pain andtingling radiating down the bilateral legs, 10 years, though progressivelyincreasing. Difficulty walking. No provided history of inciting and/or aggravating events. No provided past medical or surgical history. TECHNIQUE: Sagittal and axial imaging of the lumbar spine includes T1,T2, STIR sequences. Images saved to PACS. COMPARISON: Relevant portions of CT abdomen pelvis without contrast 12/20/2022. FINDINGS: SEGMENTATION: No lumbosacral transitional anatomy. The lowest fullyformed intervertebral disc level is labeled L5-S1. ALIGNMENT: Redemonstration of grade 1 anterolisthesis L5 on S1 in association with bilateral L5 pars interarticularis defects. VERTEBRAE: No MR evidence of acute-subacute fracture. Vertebral body heights unchanged. Spondylosis to include robust endplate degenerative changes at L5-S1 correlating with robust sclerotic and erosive endplate degenerative changes on prior CT imaging. Tiny hemangioma L3 vertebralbody. DISC HEIGHT: Vacuum disc phenomenon, intervertebral disc desiccation,and loss of intervertebral disc height at L5-S1. HARDWARE: None in the lumbar spine. CORD/CAUDA: Normal in size and signal intensity with conus medullaris termination at L2, noting there is a component of epidural lipomatosis. LOWER THORACIC: Incompletely imaged. No stenosis demonstrated. INDIVIDUAL DISC LEVELS: L1-2: No diffuse disc bulge or focal herniation. Bilateral hypertrophic facet arthropathy. No spinal canal stenosis. No neural foraminalstenosis. L2-3: No diffuse disc bulge or focal herniation. Bilateral hypertrophic facet arthropathy. No spinal canal stenosis. No neural foraminalstenosis. L3-4: No diffuse disc bulge or focal herniation. Bilateral hypertrophic facet arthropathy. No spinal canal stenosis. No neural foraminalstenosis. L4-5: No diffuse disc bulge or focal herniation. Bilateral hypertrophic facet arthropathy. No spinal canal stenosis. No neural foraminalstenosis. L5-S1: Uncovering of the intervertebral disc, posterior osteophytosis,and annular disc bulge. Bilateral hypertrophic facet arthropathy. No spinal canal stenosis, noting epidural lipomatosis narrows the residual thecalsac at this level. Severe bilateral neural foraminal stenosis, notingcombination of inferior pedicular surface, osteophytosis/disc, and arthropathic facetcontact with exiting bilateral L5 nerve roots. SACRUM: Visualized upper sacrum intact. VISUALIZED UPPER ABDOMEN: Partial incidental visualization of posterior right hepatic lobe cyst better evaluated on prior abdominopelvic CTimaging. OTHER: No other significant findings. IMPRESSION: Constellation of spondylolisthesis, spondylolysis, spondylosis,degenerative disc disease, and a component of epidural lipomatosis of the lumbar spineas detailed level by level above, maximal at L5-S1. THIS IS AN ELECTRONICALLY VERIFIED FINAL REPORT 09/18/2023 12:43 PM - Electronically signed by Sawyer Ramirez M.D. TING: TING Report ID: [id number] Reading Location: [place] [address] Hipolito Parikh MD PhD IMG MRI PROCEDURES Radha l Result documented in this encounter Visit Diagnoses Diagnosis Lumbar radiculopathy Thoracic or lumbosacral neuritis or radiculitis, unspecified documented in this encounter Care Teams [employer] Intern[employer] Relationship Specialty Start Date End Date Daja Kern MD [address] [place] [address] PCP - General 09/10/19 documented as of this encounter
--- OUTSIDE RECORDS SUMMARY | 2024-03-03 19:37 | XMS_ITS | Encounter Summary ---
Author Organization [facility] Healthcare Address [address] [place] [address] Care Team Providers Care Nutrition Director Name Role Phone Daja Kern MD Primary Care Provider [phone] Reason for Referral * Diagnostic Imaging (Routine) - Pending Review Specialty Diagnoses / Procedures Referred By Contac t Referred To Contact Diagnoses Spondylolisthesis at L5-S1 level Procedures XR Spine Lumbar Ap Lat Flex Ext min 4 Views Toñito Rust DO [address] [address] Phone: tel: fax: [address] [phone] Referral ID Status Reason Start Date Expiration Date V isits Requested Visits Authorized [id number] Pending Review 01/03/2024 02/01/2025 1 1 T SECTION BLOWER Reason for Visit * Diagnostic Imaging (Routine) - Pending Review Specialty Diagnoses / Procedures Referred By Contac t Referred To Contact Diagnoses Spondylolisthesis at L5-S1 level Procedures XR Spine Lumbar Ap Lat Flex Ext min 4 Views Toñito Rust DO [address] [address] Phone: tel: fax: [address] [phone] Referral ID Status Reason Start Date Expiration Date V isits Requested Visits Authorized [id number] Pending Review 01/03/2024 02/01/2025 1 1 Encounter Details Date Type Department Care Team (Latest Contact Info) Description 01/03/2024 12:29 PM EIGHT SECTION BLOWER - 01/03/2024 11:59 PM EIGHT SECTION BLOWER Hospital Encounter [facility] [address] [place] [address] Spondylolisthesis at L5-S1 level Discharge Disposition: Discharge [...] on file Legal Sex Female 6:59 AM EIGHT SECTION BLOWER Gender Identity Not on file Sexual Orientation Not on file documented as of this encounter Medications at Time of Discharge Abilify Maintena 400 mg IM injection 02/10/2023 acetaminophen (TYLENOL) 500 mg tablet Take 2 tablets (1,000 mg total) by mouth every 6 (six) hours as needed for pain albuterol HFA (PROVENTIL HFA,VENTOLIN HFA,PROAIR HFA) 90 mcg/actuation inhaler Inhale 2 puffs every 6 (six) hours as needed 02/10/2022 ARIPiprazole (ABILIFY) 10 mg tablet Take 1 tablet (10 mg total) by mouth daily benztropine (COGENTIN) 0.5 mg tablet 08/22/2022 chlorhexidine (PERIDEX) 0.12 % oral rinse SWISH 15 ML AFTER BRUSHING TEETH. REPEAT TWICE DAILY UNTIL SYMPTOMS RESOLVE USE FOR 25 DAYS THEN DISCARD REMAINDER DULoxetine DR (CYMBALTA) 30 mg capsule 01/01/[address] (CYMBALTA) 60 mg capsule 10/17/2022 fluticasone propionate (FLONASE) 50 mcg/actuation nasal spray 2 sprays daily As needed 10/17/2022 gabapentin (NEURONTIN) 300 mg capsule 01/01/2024 gabapentin (NEURONTIN) 600 mg tabletIndications:Era mbar radiculopathy TAKE 1 & 1/2 TABLETS BY MOUTH THREE TIMES A DAY 126 tablet 3 10/19/2023 hydrOXYzine (ATARAX) 25 mg tablet 08/21/2023 irbesartan (AVAPRO) 150 mg tablet Take 1 tablet (150 mg total) by mouth daily 10/18/2019 irbesartan (AVAPRO) 300 mg tablet 10/24/2023 irbesartan-hydrochlo rothiazide (AVALIDE) 150-12.5 mg per tablet daily levothyroxine (SYNTHROID) 50 mcg tablet 11/12/2019 lidocaine (LIDODERM) 5 % 07/26/2022 loperamide (IMODIUM) 2 mg capsule Take 1 capsule (2 mg total) by mouth every 8 (eight) hours as needed for diarrhea 01/05/2023 metFORMIN XR (GLUCOPHAGE XR) 500 mg 24 hr tablet Take 1 tablet (500 mg total) by mouth daily with breakfast 03/07/2023 metoprolol XL (TOPROL-XL) 50 mg extended release tablet 10/24/2023 multivitamin with minerals tablet Take 1 tablet by mouth daily 01/06/2023 omeprazole (PriLOSEC) 40 mg capsule Take 1 capsule (40 mg total) by mouth daily 02/06/2019 ondansetron ODT (ZOFRAN-ODT) 4 mg disintegrating tablet Take 1 tablet (4 mg total) by mouth every 6 (six) hours as needed 01/05/2023 OneTouch Delica Plus Lancet 30 gauge misc 12/26/2023 OneTouch Verio test strips strip 12/26/2023 senna (SENOKOT) 8.6 mg tablet Take 2 tablets by mouth nightly as needed 01/05/2023 simvastatin (ZOCOR) 10 mg tablet 11/12/2019 tiZANidine (ZANAFLEX) 4 mg tablet TAKE 1 TABLET BY MOUTH TWICE A DAY 56 tablet 3 11/22/2023 traZODone (DESYREL) 100 mg tablet TK 1 T PO HS 09/24/2019 triamterene-hydroCHL OROthiazide 37.5-25 mg per tablet 03/06/2023 documented as of this encounter Discharge Disposition Disposition Code Departure Means Destination Discharge to home or self care documented in this encounter Plan of Treatment Not on file documented as of this encounter Goals Goal Patient Goal Type Associated Problems Recent Progress Patient-Stated? Author CCM Chronic Pain Care Plan Chronic Care Management Worsening(0 11/08/2023 2:01 PM CDT) Nidhi Benedict RN Note: Problem: Chronic Pain Goals: 1. [...] Read Routine (OP Routine) 01/03/2024 12:47 PM EIGHT SECTION BLOWER Spondylolisthesis at L5-S1 level documented in this encounter Results * XR Spine Lumbar Ap Lat Flex Ext min 4 Views (01/03/2024 12:47 PM EIGHT SECTION BLOWER) Anatomical Region Laterality Modality L-spine N/A Computed Radiogr aphy 01/03/2024 12:5 0 PM EIGHT SECTION BLOWER Impressions 01/03/2024 12:50 PM EIGHT SECTION BLOWER 1. ??Severe L5-S1 spondylosis with grade 2 spondylolytic spondylolisthesis Electronically signed by: Shikha Barnes MD Narrative 01/03/2024 12:50 PM EIGHT SECTION BLOWER EXAMINATION: XR SPINE LUMBAR AP LAT FLEX [...] spondylolisthesis Electronically signed by: Shikha Barnes MD [facility] Rust DO IMG XR PROCEDURES Final Result documented in this encounter Visit Diagnoses Diagnosis Spondylolisthesis at L5-S1 level documented in this encounter Care Teams Nutrition Director Relationship Specialty Start Date End Date Daja Kern MD [address] [place] [address] PCP - General 09/10/19 documented as of this encounter
--- OUTSIDE RECORDS SUMMARY | 2024-03-03 19:37 | XMS_ITS | Continuity of Care Document ---
Author Organization [facility] Address [address] [place] [address] Care Team Providers Care Pipe Joints Supervisor Name Role Phone DAJA CARBALLO Primary Care Provider ERINN WANG Community Development Technician Assessment No assessment recorded. Plan of Treatment Reminders Order Date Submit Date Provider Last Modified By Organization Details Last Modified Time Details Appointments ANY 30 025 01:00PM Daja Carballo MD Not available Not available Not available Lab None record ed. Referral None record ed. Procedures None record ed. Surgeries None record ed. Imaging None record ed. Medication Orders None record ed. Patient TargetsNo targets recorded. Patient Instructions Encounter Date Encounter Id Patient Instructions Last Modified By Organization Details Last Modified Time 12/05/2023 [id number] f/u in 4 month nsuthan Not available 12/05/2023 12:40:32 Reason for Referral None Reported. Results Created Date Observation Date Name Description Value Unit Range Abnormal Flag Note LastModifiedBy Organization Detail LastModifiedTime 11/21/1911/21/2023 MAMMO , diagn ostic , digit al, bilat eral No observ ation record ed[facility] [address] [facility] [place], [address], 11/27/2023 18:54:32 11/21/19 24 11/21/2023 , micki esposito No observ ation record ed. GIOVANNY [facility] [address] [place], [address], 11/27/2023 18:54:32 12/19/19 24 12/19/2023 US, breas t, unila teral No observ ation record ed. jaden [facility] [address] [place], [address], 12/26/2023 10:11:39 12/19/19 24 12/19/2023 MAMMO , diagn ostic , digit al, bilat eral No observ ation record ed. [facility]aden [facility] [address] [place], [address], 12/26/2023 10:11:40 Result Notes None recorded. Problems Name Problem SNOMED Code Status Onset Date Resolution Date Notes Provider Name and Address Organization Details Recorded Time History of colitis 812185441 Active 2018 Daja Carballo MD Attn: Margo phillips,[address] [place], [address], [place] [facility] 1 12:44:31 Lumbar radiculo sepideh 692245701 Active 2019 Daja Carballo MD Attn: Margo phillips,[address] [place], [address], [place] [facility] 2 11:57:46 Type 2 diabetes mellitus 01324119 Active 2022 Daja Carballo MD Attn: Margo phillips,[address] [place], [address] 3 14:32:00 Chronic obstruct ivet pulmonar y disease 91748500 Active 2023 Daja Carballo MD Attn: Margo phillips,[address] [place], [address] [facility] 4 14:21:22 Acute urinary tract infectio n 745519498 Completed 01/22/2016 Daja Carballo MD Attn: Margo phillips,[address] [place], [address], [place] [facility] 6 13:12:30 Nephroca lcinosis 05041561 Active us of kidney- Daja Carballo MD Attn: Margo phillips,[address] [facility], [place], [address], [place] [facility] 2 11:57:47 Candidal intertri go 154501900 Active 2023 ERINN WANG MD Attn: Margo phillips,[address] [facility], [place], [address], [place] [facility] 4 14:43:44 Obesity 901844229 Completed 12/21/2016 Daja Carballo MD Attn: Margo phillips,[address] [place], [address], [place] [facility] 7 11:19:17 Cough 56047494 Completed 01/22/2016 Daja Carballo MD Attn: Margo phillips,[address] [facility], [place], [address], [place] [facility] 6 13:12:37 Increase d frequenc y of urinatio n 716016112 Completed 01/22/2016 Daja Carballo MD Attn: Margo phillips,[address] [facility], [place], [address], [place] [facility] 6 13:12:09 Essentia l hyperten estella 36464416 Active Daja Carballo MD Attn: [place] phillips,[address] [facility], [place], [address], [place] [facility] 2 11:57:47 Morbid obesity 627967764 Active did not tolerate glp1 Daja Carballo MD Attn: Helen[place] phillips,[address] [place], [address], [place] [facility] 3 15:46:55 Irregula r periods 13950734 Active Rabia suarez, [place] [facility] 1 11:46:23 Vaginal discharg e 191939440 Completed 01/22/2016 Daja Carballo MD Attn: Margo phillips,[address] [place], [address], [place] [facility] 6 13:12:17 Cyst of ovary 82215892 Active Rabia Garcia null[place] [facility] 1 11:46:23 Trichomo nal vulvovag initis 46248711 Active Rabia Tate null[place] [facility] 1 11:46:23 Bacteria l vaginosi s 613611480 Completed 12/21/2016 Daja Carballo MD Attn: Margo phillips,[address] [place], [address], [place] [facility] 7 11:19:35 Menometr orrhagia 733184153 Active Rabia Garcia null[place] [facility] 1 11:46:23 Endometr ial hyperpla patti 343165451 Active Rabia Garcia [place] [facility] 1 11:46:23 Acute sinusiti s 89136915 Completed 01/22/2016 Daja Carballo MD Attn: Margo phillips,[address] [place], [address] [facility] 6 13:11:57 Hyperlip idemia 37813768 Active Daja Carballo MD Attn: Margo phillips,[address] [place], [address], [place] [facility] 2 11:57:47 Anemia 456642653 Active Rabia Gacria null[place] [facility] 1 11:46:24 Hypothyr oidism 17887835 Active 2015 Daja Carballo MD Attn: Margo phillips,[address] [place], [address], [place] [facility] 2 11:57:46 Low back pain 690509785 Completed 201512/21/2016 Daja Carballo MD Attn: [address] [place], [address], [place] [facility] 7 11:19:05 Macromas tia 902824331 Completed 201512/21/2016 Daja Carballo MD Attn: Margo jacqueline,[address] [place], [address], [place] [facility] 7 11:28:01 Hyperten sive disorder 02331862 Completed 01/22/2016 Daja Carballo MD Attn: Margo phillips,[address] [place], [address], [place] [facility] 6 13:12:43 Gastroes ophageal reflux disease 782569315 Active Daja Carballo MD Attn: Margo phillips,[address] [place], [address], [place] [facility] 2 11:57:47 Depressi ve disorder 62535124 Completed 02/03/2016 Daja Carballo MD Attn: Margo jacqueline,[address] [place], [address], [place] [facility] 6 11:02:18 Anxiety 55620961 Completed 02/03/2016 Daja Carballo MD Attn: Margo phillips,[address] [place], [address], [place] [facility] 6 11:02:52 Bipolar disorder 69799311 Active with substance use -psych Daja Carballo MD Attn: Margo phillips,[address] [place], [address], [place] [facility] 2 14:55:47 Non-alco holic fatty liver 035541326 Active us 05/19-mild hepatomeg harjeet with steatosis Daja Carballo MD Attn: Margo phillips,[address] [place], [address], [place] [facility] 3 10:12:40 Chronic back pain 533901987 Active MRI 09/15-ganga re narrowing with L5 root compressi on /T10-11 abnormali ty-seeing spine sx who is retired-r eferred again.-pt has apt with pain mx on 04/03/2020. Daja Carballo MD Attn: Margo g,[address] [facility], [place], [address], [facility] - [facility] 2 11:57:46 Hydronep hrosis 90377429 Completed 02/03/2016 Daja Carballo MD Attn: Accountdawood g,[address] [facility], [place], [address], [facility] - [facility] 6 11:02:38 Obstruct ivet sleep apnea syndrome 73068184 Active 2016 on CPAP Daja Carballo MD Attn: Accountdawood g,[address] [facility], [place], [address], [facility] - [facility] 2 11:57:46 Problem Notes None recorded. Procedures Surgical History Date Name Laterality Status Provider Name and Address Organization Details Recorded Time 11/13/19 21 Date of Last Pap Smear completed Adeline Green MA [facility] 11/24/2020 10:45:53 07/30/19 21 Most Recent Mammogram completed Adeline Green MA [facility] 11/12/2020 11:48:43 02/07/20 19 EGD completed JORDANA Barriga [facility] 02/06/2019 10:56:05 11/17/19 19 colonoscopy completed Daja Carballo MD Attn: Accounting, [address] [facility], [place], [address], [facility] - [facility] 01/10/2019 12:43:56 05/29/19 16 Endometrial Biopsy completed Lili Conroy [facility] 05/29/2015 14:41:29 02/27/19 08 Cholecystectomy completed Bailey Faulkner RN [place] 03/10/2014 15:32:51 02/27/18 95 Caesarean Section completed Adeline Green [facility] 04/15/2015 10:39:11 Imaging Results None recorded. Procedure Notes None recorded. Medical Equipment None Reported. Allergies Allergen ID Allergen Name Allergen Category Reaction Reaction Severity Criticality Documentation Date Start Date Code Code System Note Provider Name and Address Organization Details Recorded Time 61115 risperido ne medicatio n Not available Not available Not available 03/10/2014 36114 RxRed Faulkner RN null, [facility] 5 15:32:51 91456 Geodon medicatio n Not available Not available Not available 03/10/2014 76729 4 Rosy Faulkner RN null, [facility] 5 15:32:51 7760 Substance with sulfonami de structure and antibacte rial mechanism of action (substanc e) medicatio n Not available Not available Not available 02/05/2014 15015 8003 SNOMED Bailey Faulkner RN null, [facility] 4 16:51:50 Medications Name Sig Start Date [...] Not Available haloperid ol 5 mg tablet 12/27 completed not taking Not Available Not [...] a dose pack FOLLOW PACKAGE DIRECTIO NS 06/26 /2023 completed Not Available Not Available Not Available [...] completed Not Available Not Available Not Available [email or web address] janay (contrace ptive) 0.35 mg tablet active [...] Updated DateTime 4 157.48 cm 52.1 kg/m2 810526. 18 g 99 /min 14 /min 97.3 [degF] 97 % 97 % 127 mm[Hg] 85 mm[Hg] Yolie Portillo MA [place] 4 12:25:28 Social History Question Answer Notes LastModified by Organizat ion Details LastModified Time Tobacco Smoking Status Never Smoker Bailey Faulkner RN null, [place] 03/10/2014 15:32:52 Do You Have An Advance [...] Do You Have Serious Difficulty Hearing? No [email or web address] Information not available 06/19/2020 What Type Of [...] Or The Highest Degree You Have Received? BX59053-7 [email or web address] Information not available 06/19/2020 What Is Your [...] Seat Belt Or Car Seat Routinely? Yes Information not available 06/19/2020 Seat Belts Used Routinely Yes Information not available 04/15/2015 Are You Sexually Active? Yes Information not available 04/15/2015 Smoke Alarm In Home Yes Information not available 05/22/2019 Do You Have Smoke And Carbon Monoxide Detectors In Your Home? Yes [email or web address] Information not available 06/19/2020 Do You Or Have You Ever Used Smokeless Tobacco? Never Used Smokeless Tobacco Information not available 01/10/2019 How Much Tobacco Do You Smoke? No Information not available 01/10/2019 General Stress Level Medium [email or web address] Information not available 01/22/2020 Do You Feel Stressed (tense, Restless, Nervous, Or Anxious, Or Unable To Sleep At Night)? LS3553-1 [email or web address] Information not available 09/29/2023 Do You [...] you able to care for yourself? Yes [email or web address] Information n ot available 06/19/2020 What is your exercise level? None Information not available 11/26/2019 Mental Status None recorded. Family History Relationship Description Onset Age of this Age Resolved Age Notes LastModified by Organization Details LastModified Time Mother Depressive disorder [email or web address] Not available 09/06 11:34:53 Mother Diabetes mellitus [email or web address] Not available 09/06 11:34:53 Mother Hypertensive disorder [email or web address] Not available 09/06 11:34:53 Brother Depressive disorder [email or web address] Not available 09/06 11:34:53 Father Epilepsy [email or web address] Not availab le 09/07/2015 11:34:53 Medical History Condition Response Coronary Artery Disease N Atrial Fibrillation N High Blood Pressure Y Depression Y COPD N Blood Clots N Headaches/Migraines N Anxiety Disorder Y Muscle, Joint, or Bone Problems Y Infertility N Polyps N Acid Reflux (GERD) Y Cancer N Stroke N Headaches N Kidney or Bladder Problems Y Acne N Eating Disorder N Skin Problems N Asthma N Allergies Y Hepatitis N Breast Cancer N Lung Disease N Breast Problem N Anesthesia Complications N Endometriosis Y High Cholesterol Y Liver Disease N Thyroid Problems Y GI Problems N Anemia N Heart Attack ([place]) N Ovarian Cancer N Diabetes N Blood Transfusions N Seizures/Epilepsy N Abuse/Domestic Violence N Heart Disease N Pre-Eclampsia N Osteoporosis N Heart Failure [...] Recorded Time Tdap 6 completed Not Available [facility] 03/16/2019 02:29:59 SARS-COV-2 (COVID-19) vaccine, UNSPECIFIED 1 completed Not Available [facility] 03/28/2023 01:29:51 SARS-COV-2 (COVID-19) vaccine, UNSPECIFIED 1 completed Not Available [facility] 03/28/2023 01:29:51 Tdap 3 completed Not Available [facility] 03/28/2023 01:29:51 Influenza, split virus, quadrivalent, preservative 6 completed Not Available [facility] 03/16/2019 02:39:52 Influenza, split virus, quadrivalent, preservative 7 completed Not Available [facility] 03/16/2019 02:34:24 Influenza, split virus, quadrivalent, preservative 8 completed Not Available [facility] 03/16/2019 02:49:55 Influenza, split virus, quadrivalent, preservative 1 completed Yolie Portillo MA null, [facility] 01/05/2021 15:44:33 Influenza, split virus, quadrivalent, preservative 3 completed Yolie Portillo MA null, [place] [facility] [place] 12/27/2022 15:18:10 Influenza, split virus, quadrivalent, preservative 5 completed Not Available [facility] 03/16/2019 02:32:11 Past Encounters Encounter ID Performer Location Encounter Start Date Encounter Closed Date Diagnosis/Indication Diagnosis SNOMED-CT Code Diagnosis ICD10 Code [id number] Daja Carballo MD [facility] ([facility]) [address] [place] [address] 12/05/2023 11:39:12 12/08/2023 16:37:05 Essential hypertension 94898998 I10 Hyperlipidemia 99480176 E78.5 Type 2 nathen betes mellitus 94849242 E11.9 Bipolar disorder 4544435 4 F31.9 Hypothyroidism 74222223 E03.9 Chronic back pain 272388 002 M54.16 Health Concerns Section Related Observation LastModified by Organization Detai ls LastModified Time None Recorded Concern Status LastModified by Organization Details LastModified Time None Recorded Payers Encounter Date Sequence Insurance Name Policy Number Policy Wagner Covered Member ID Wagner Member ID Guarantor Name 12/05/2023 1 [facility] (MEDICAID HMO) [id number] Alona Hog Man [id number] Alona Tsai Hog Man Notes Date Note Type Note Provider Name and Address Organization Details Recorded Time 12/05/2023 text/html Back PainReporte d bypatient.Location:p ain radiating to the buttocks(hips); lumbar spine Quality:dull Severity:moderate (5-7) Duration:chronic Onset/Timing:recurre nt episode Context:prior back problems Aggravating Factors:movement/pos itioning Associated Symptoms:no fever; no weak limbs; no incontinence;numbnes s of the legs/feetNotes:pt stopped seeing pain mx, could not get back due to transportation issueDiabetes F/UReported bypatient.Labs:last A1C result: 7.5 Context:not missing doses of medications; no side effects from medications Associated Symptoms:weight gain ( lbs)Hypertension F/UReported bypatient.Associated Symptoms:no dizziness; no chest pain; no edema Lifestyle:limiting/a voiding salt;not exercising regularly Medications:taking medications as directed; no side effects from medication Pt is here for hospital f/u for cough and congestion- pt was rxed with few rounds of antibioticpt sees psych for bipolar and taking meds as prescribed , pt said she is clean for last [address] . Daja Carballo MD Attn: [address] [place], [address], [place] [facility] 12/05/2023 15:21:15 OBGyn Episode No OBEpisode recorded.
--- OUTSIDE RECORDS SUMMARY | 2024-03-03 19:37 | XMS_ITS | Encounter Summary ---
Author Organization [facility] Healthcare Address [address] [place] [address] Care Team Providers Care Cork Slabs Sawyer Name Role Phone Daja Kern MD Primary Care Provider [phone] Reason for Visit * Reason Onset Date Comments PMC Preprocedure 09/22/2023 Encounter Details Date Type Department Care Team (Late st Contact Info) Description 09/22/2023 Telephone [facility] [address] [facility] [address] [place] [address] Katrina Wilkes MD [address] [place] [address] [facility] Preprocedure Social History Tobacco Use Types Packs/Day Years [...] on file 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 Author CCM Chronic Pain Care Plan Chronic Care Management Worsening(0 11/08/2023 2:01 PM CDT) No Nidhi Angelo, AGUILA Note: Problem: Chronic Pain Goals: 1. Minimize further functional decline 2. Maximize quality of life 3. Control pain Strategies: - Activity/exercise program recommendation - Conservative stepwise pain medicine strategy with multi-disciplinary approach - Recommend healthy lifestyle strategies and compensatory methods as needed documented as of this encounter Visit Diagnoses Not on filedocumented in this encounter Care Teams Cork Slabs Sawyer Relationship Specialty Start Date End Date Daja eKrn MD [address] [place] [address] PCP - General 09/10/19 documented as of this encounter
--- OUTSIDE RECORDS SUMMARY | 2024-03-03 19:37 | XMS_ITS | Encounter Summary ---
Author Organization [facility] Healthcare Address [address] [place] [address] Care Team Providers Care [employer] Supervisor Name Role Phone Daja Kern MD Primary Care Provider [phone] Encounter Details Date Type Department Care Team (Latest Contact Info) Description 12/26/2023 3:43 PM CDT - 12/26/2023 11:59 PM CDT Hospital Encounter [facility] Emergency, Room R Discharge Disposition: Discharge to home or self care Social History Tobacco Use Types Packs/Day Years Used Date Smoking Tobacco: Never Passive Smoke Exposure: Current Smokeless Tobacco: Never Alcohol Use Standard Drinks/Week Comments No 0 (1 standard drink = 0.6 oz pur e alcohol) AUDIT-C Answer Date Recorded Q1: How often do you have a drink containing alcohol? Never 11/08/2023 Q2: How many drinks containi ng alcohol do you have on a typical day when you are drinking? Patient does not drink Q3: How often do you have si x or more drinks on one occasion? 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
--- OUTSIDE RECORDS SUMMARY | 2024-03-03 19:37 | XMS_ITS | Encounter Summary ---
Author Organization [facility] Healthcare Address [address] [place] [address] Care Team Providers Care Travel Pt Name Role Phone Daja Kern MD Primary Care Provider [phone] Reason for Visit * Reason Comments PT Treatment * Consultation (Routine) - Authorized Specialty Diagnoses / Procedures Referred By Contac t Referred To Contact Physical Therapy Diagnoses Lumbar radiculopathy Deconditioned low back Ander Jules, ADITYA [address] [facility] [address] [place] [address] Phone: tel: fax: [facility] [place] [address] Phone: tel: fax: Referral ID Status Reason Start Date Expiration Date Visits Requested Visits Authorized [id number] Authorized Evaluate and Treat 11/08/2023 12/07/2024 24 13 Encounter Details Date Type Department Care Team (Late st Contact Info) Description 01/10/2024 1:00 PM ADDICTIONS RECOVERY SPECIALIST Therapy [facility] [place] [address] Dilcia Jolly PTA Lumbar radiculopathy (Primary Dx); Deconditioned low back Social History Tobacco Use Types Packs/Day Years [...] on file Legal Sex Female 6:59 AM ADDICTIONS RECOVERY SPECIALIST Gender Identity Not on file Sexual Orientation Not on file documented as of this encounter Progress Notes * Dilcia Jolly, AERIAL PLANTING AND CULTIVATION MANAGER - 01/10/2024 1:00 PM CST Physical Therapy Visit 01/10/24 Alona Tsai Draughtsman 1970, female [id number] Diagnosis Plan 1. Lumbar radiculopathy 2. Deconditioned low back Ander Jules, ADITYA [address] [place] [address] Subjective: Alona reports continued pain in her low back and left hip. Pain: 4-5/10 low back Objective: Treatment Provided: Moist heat to low back Manual stretching to low back LTR Bridges SLR Hip adduction with ball squeeze Hip abduction with blue T-band Standing heel raises x 15 Hip abduction x 15 audie Marching x 15 audie Nu step x 8 min Access Code: [email or web address] URL: [email or web address] Date: 12/18/2023 Prepared by: Alvarado Limon Exercises - Supine Bridge - 2 x daily - 7 x weekly - 1 sets - 15 reps - Supine Lower Trunk Rotation - 2 x daily - 7 x weekly - 1 sets - 15 reps - Supine Active Straight Leg Raise - 2 x daily - 7 x weekly - 1 sets - 15 reps - Supine Hip Adduction Isometric with Ball - 2 x daily - 7 x weekly - 1 sets - 15 reps - Hooklying Clamshell with Resistance - 2 x daily - 7 x weekly - 1 sets - 15 reps - Standing Hip Abduction with Counter Support - 2 x daily - 7 x weekly - 1 sets - 15 reps - Heel Raises with Counter Support - 2 x daily - 7 x weekly - 1 sets - 15 reps - Standing March with Counter Support - 2 x daily - 7 x weekly - 1 sets - 15 reps Assessment: Tolerated treatment fairly well. She was able to tolerate general conditioning on the nu step Plan: Plan to continue as tolerated. Start Time: 1305 End Time: 1345 Dilcia Jolly PTA [employer]IONS RECOVERY SPECIALIST documented in this encounter Plan of Treatment Not on file documented as of this encounter Goals Goal Patient Goal Type Associated Problems Recent Progress Patient-Stated? Author CCM Chronic Pain Care Plan Chronic Care Management Worsening(0 11/08/2023 2:01 PM CDT) Nidhi Benedict, AGUILA Note: Problem: Chronic Pain Goals: 1. Minimize further functional decline 2. Maximize quality of life 3. Control pain Strategies: - Activity/exercise program recommendation - Conservative stepwise pain medicine strategy with multi-disciplinary approach - Recommend healthy lifestyle strategies and compensatory methods as needed documented as of this encounter Visit Diagnoses Diagnosis Lumbar radiculopathy- Primary Thoracic or lumbosacral neuritis or radiculitis, unspecified Deconditioned low back documented in this encounter Care Teams Travel Pt Relationship Specialty Start Date End Date Daja Kern MD [address] [place] [address] PCP - General 09/10/19 documented as of this encounter
--- OUTSIDE RECORDS SUMMARY | 2024-03-03 19:37 | XMS_ITS | Encounter Summary ---
Author Organization [facility] Healthcare Address [address] [place] [address] Care Team Providers Care Billiard Parlor Manager Name Role Phone Daja Kern MD Primary Care Provider [phone] Reason for Visit * Reason Onset Date Comments PMC Preprocedure 04/26/2023 Encounter Details Date Type Department Care Team (Late st Contact Info) Description 04/26/2023 Telephone [facility] [address] [facility] [address] [place] [address] Katrina Wilkes MD [address] [place] [address] [facility] Preprocedure Social History Tobacco Use Types Packs/Day Years Used Date Smoking Tobacco: Never Passive Smoke Exposure: Current Smokeless Tobacco: Never Alcohol Use Standard Drinks/Week Comments No 0 (1 standard drink = 0.6 oz pur e alcohol) AUDIT-C Answer Date Recorded Q1: How often do you have a drink containing alcohol? Never 03/15/2023 Q2: How many drinks containi ng alcohol do you have on a typical day when you are drinking? Patient does not drink Q3: How often do you have si x or more drinks on one occasion? Never 03/15/2023 Hunger Vital Sign Answer Date Recorded Within [...] on file Legal Sex Female 6:59 AM CUSTOMS OFFICER Gender Identity Not on file Sexual Orientation Not on file documented as of this encounter Miscellaneous Notes * Telephone Encounter - Alona Brown RN - 04/26/2023 12:45 PM CST Pre Procedure instructions sent through my chart OMS OFFICER documented in this encounter Plan of Treatment [...] on filedocumented in this encounter Care Teams Billiard Parlor Manager Relationship Specialty Start Date End Date Daja Kern MD [address] [place] [address] PCP - General 09/10/19 documented as of this encounter
--- OUTSIDE RECORDS SUMMARY | 2024-03-03 19:37 | XMS_ITS | Encounter Summary ---
Author Organization [facility] Healthcare Address [address] [place] [address] Care Team Providers Care Museum Exhibit Technician Name Role Phone Daja Kern MD Primary Care Provider [phone] Reason for Referral * Diagnostic Imaging (Routine) - Closed Specialty Diagnoses / Procedures Referred By Contac t Referred To Contact Diagnoses Lumbar radiculopathy Procedures Imaging Lumbar/Sacral Selective Nerve Root INJ (TFE) Bilateral (50945) Hipolito Parikh MD PhD [address] [address] Phone: tel:[phone] fax: [address] [address] Referral ID Status Reason Start Date Expiration Date Visits Re quested Visits Authorized [id number] Closed 09/04/2023 10/03/2024 1 1 Reason for Visit * Reason Comments Back Pain Down lt leg * Diagnostic Imaging (Routine) - Closed Specialty Diagnoses / Procedures Referred By Contac t Referred To Contact Diagnoses Lumbar radiculopathy Procedures Imaging Lumbar/Sacral Selective Nerve Root INJ (TFE) Bilateral (01088) Hipolito Parikh MD PhD [address] [address] Phone: tel:[phone] fax: [address] [address] Referral ID Status Reason Start Date Expiration Date Visits Re quested Visits Authorized [id number] Closed 09/04/2023 10/03/2024 1 1 Encounter Details Date Type Department Care Team (Latest Contact Info) Description 09/27/2023 9:30 AM CDT - 09/27/2023 11:59 PM CDT Hospital Encounter [facility] [address] [facility] [address] [place] [address] Katrina Wilkes MD [address] [place] [address] Lumbar radiculopathy Discharge Disposition: Discharge to home or self care Social History Tobacco Use Types Packs/Day Years Used Date Smoking Tobacco: Never Passive Smoke Exposure: Current Smokeless Tobacco: Never Alcohol Use Standard Drinks/Week Comments No 0 (1 standard drink = 0.6 oz pur e alcohol) AUDIT-C Answer Date Recorded Q1: How often do you have a drink containing alcohol? Never 09/27/2023 Q2: How many drinks containi ng alcohol do you have on a typical day when you are drinking? Patient does not drink Q3: How often do you have si x or more drinks on one occasion? 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 Gender Identity Not on file Sexual Orientation Not on file documented as of this encounter Last Filed Vital Signs Vital Sign Reading Time Taken Comments Blood Pressure 137/104 09/27/2023 12:34 PM CDT Pulse 74 09/27/2023 12:34 PM CDT Temperature 36.6 ??C (97.8 ??F) 09/27/2023 9:47 AM CD T Respiratory Rate 18 09/27/2023 12:34 PM CDT Oxygen Saturation 98% 09/27/2023 12:34 PM CDT Inhaled Oxygen Concentration - - Weight 127 kg (280 lb) 09/27/2023 9:47 AM CDT Height 157.5 cm (5' 2 ) 09/27/2023 9:47 AM CDT Body Mass Index 51.21 09/27/2023 9:47 AM CDT documented in this encounter Discharge Instructions * Discharge Instructions* Fatou Gonzalez RN - 09/27/2023 9:39 AM CDT [facility] PATIENT EDUCATION POST-PROCEDURE INFORMATION SHEET After this procedure you may have: Dizziness Numbness in extremities Weakness in extremities These symptoms generally wear off in 6-8 hours, but are almost always gone by the next morning. A small amount of bruising, bleeding, swelling at the injection site(s). It is recommended you apply ice packs for 20 minutes every 1-2 hours for the first 24 hours. After 24 hours, if you still have discomfort, you may use a heating pad. Do not sit or lie on top of heating pad. Do not leave ice or heat on for more than 20 minutes at a time. Stand up slowly from a sitting or lying position today to prevent feeling dizzy or lightheaded. Limit activity today, which includes no driving. You may resume your normal activity and driving the next day after your procedure. You may take a shower. No tub bath, swimming pool, hot tub, etc., for 24 hours. You have received two (2) medications in your injection today. The first is a numbing medicine. This medicine may give you quick pain relief that may wear off before tomorrow. The second medicine is a steroid which may take 2-7 days to start working. You may also have some extra soreness at the injection site. After the numbing medicine wears off, your pain may return until the steroid starts working. If you have any questions or problems, please call the Pain Management Center at . For emergencies after 4:00 p.m., you should call the hospital packer operator automatic at and ask tospeak with the Pain Service doctor internet salesperson. [facility] ([facility]) DISCHARGE INSTRUCTIONS MEDICATIONS: [x] Continue your current home medications Start: [x] Notify your pharmacy for refill(s) 7 days before you are out of your medication. PROCEDURE at today's visit: lumbar selective nerve root injection DIET: [x] Resume normal diet [] See [facility] Post Discharge Procedure Information Sheet ACTIVITY: [] Resume normal activity [x] See [facility] Post Discharge Procedure Information Sheet REFERRALS: Physical Therapy [] [facility] ([phone]) [] [facility] ([employer]ag[employer]) [] [facility] ([phone]) Option 1 [] [facility] (Graded Motor Imagery) [] [facility] ([phone]) [] Other: Behavior Medicine [] Pain Psychologist, [facility] Please call to schedule appointment [phone] or [phone] Diagnostic Test(s): May get Radiographs performed in Radiation/X-Ray 6th floor, [address]. [] Please call to schedule MRI or CT scan at [phone] [] Please call to schedule EMG at [phone] EDUCATION provided on the following: [] Spinal Cord Stimulator Education and DVD. Vendor: FOLLOW UP APPOINTMENTS: [] Return as needed [x] Follow up appointment: in 6 weeks with ADITYA Mcdaniel We will contact you the next business day to obtain: [] An update on your condition [] Your Pain diary scores [] Procedure at your next visit : INSTRUCTIONS before your next procedure: [] See [facility] Pre-Procedure Information Sheet [] Do not eat or drink for six (6) hours before the time/date of the procedure. [] Inquire with your prescribing provider if ok to hold blood thinner for ( ) days before procedure. [] Blood work required 2 hours before procedure: [] Crusher Plant Operator needed for next procedure [] Pre Procedure instructions will be sent through [employer] or by phone two working days prior to procedure. *Need help with [employer]? Call [phone]. Patient provided information and repeated back with understanding. If you need to reach us: For any questions about your procedure, please call the Pain Management Center [phone] (M-F) (8am-4pm) If you need urgent attention after 5 pm and weekends: Call the [facility] Home Energy Rater at [phone] and ask for the Pain Service doctor internet salesperson. documented in this encounter Medications at Time [...] tablets (50 mg total) daily 08/22/2022 4 tiZANidine (ZANAFLEX) 4 mg tablet Take 1 tablet (4 mg total) by mouth 2 (two) times a day 60 tablet 2 08/21/2023 4 documented as of this encounter Discharge Disposition Disposition Code Departure Means Destination Discharge to home or self care documented in this encounter H&P Notes * Hardeep Sanchez MD - 09/27/2023 9:30 AM CDT The patient is seen before her B/L L5 LSNR. Patient reports no changes to her pain since the last clinic visit. Medical history, allergies, and blood thinner status were reviewed. Consent was obtained. Patient feels at baseline today and there has been no major changes to her medical history. Hardeep Sanchez MD, PhD PGY-3 Anesthesiology Cosigned by Katrina Wileks MD at 09/27/2023 12:49 PM CDT Source Note - Hipolito Parikh MD PhD - 09/04/2023 10:30 AM CDT Patient Name: Alona Kemp : 1970 Today's Date: 08/25/2022 PCP: Daja Kern MD Referring: Katrina Wilkes MD Chief Complaint Patient presents with Back Pain HPI - historical info Alona Kemp is a 52 y.o. year old female referred by Katrina Wilkes MD for consultation regarding evaluation and treatment recommendation for management of Her back pain. Patient was initially seen at the [facility] on 08/25/2022. Patient's Medical Office Specialist, David from [facility] attended today's visit. She presents with low back pain. Radiation: lateral legs to knee and then anteriorly to feet L > R Numbness: tops of feet Weakness: legs Saddle Anesthesia: denies Bowel/Bladder incontinence: denies Her pain began 6-7 years and has progressed in past couple of years. Pain started after no incitingevent. The pain is described as continuous, throbbing, shooting, stabbing, cramping, gnawing, hot-burning, aching, heavy, tender, tiring-exhausting, sickening, fearful, and punishing-cruel. Can walk 5-10 minutes, must sit down due to increased back and leg pain. Denies falls, but feels like left leg will give out. Her pain at its best-worse level is 3-10/10, respectively. Pain right now is 7/10 on the numeric pain scale. Pain is worse during morning. Pain is better during midday. Provocative factors include lifting, standing, bending, weather/temperature changes, stress, cough, sneezing, and straining. Alleviating factors include sitting, lying, heat, ice, and massage. Her pain greatly interferes with ADL's. Will be moving into mother's home for assistance. Physical therapy: Years ago, did not help. Does not perform HEP. Past/ current meds: Baclofen- does not help Pregabalin- does not help Trazodone- helps with sleep Prior interventional therapies: Previous interventional injections with Dr. Marty Holcomb with [facility] 1-2 years ago Imagin09/10/2019 Lumbar Spine MRI LOWER THORACIC: There is signal abnormality noted within the dorsal aspect of the spinal canal at T10-11 with suspected intramedullary T2 signal hyperintensity of the adjacent spinal cord. This is only observed on the sagittal sequence as axial images were not acquired through this level. Dedicated thoracic MRI is recommended (preferably with and without contrast). INDIVIDUAL DISC LEVELS: L1-2: Unremarkable. L2-3: Unremarkable. L3-4: Unremarkable. L4-5: Unremarkable. L5-S1: Unroofed disc material and facet arthropathy without spinal canal stenosis. Severe foraminal narrowing with compression of the L5 nerve roots bilaterally. IMPRESSION: 1. 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 Progressive and now severe disc degeneration resulting in severe bilateral foraminal stenosis and compression of the L5 nerve roots. 2. No spinal canal stenosis. 3. There is suspected cord signal abnormality at T10-11. Dedicated thoracic MRI is recommended 11/07/2019 Thoracic Spine MRI IMPRESSION: 1. Compromised evaluation, specifically sagittal STIR and axial T2 sequences with these sequences nondiagnostic for evaluation of the spinal cord. 2. Spinal cord normal in size and grossly normal in signal intensity without overt evidence of T2 signal abnormality on sagittal sequence, to include at the level of T10-11. 3. If clinically warranted, MRI of the thoracic spine without and with contrast can be performed on a closed bore magnet for evaluation of previously questioned lower thoracic cord signal abnormality. 4. Otherwise, mild spondylosis of the thoracic spine without spinal canal stenosis or neural foraminal stenosis. 11/18/2019 Thoracic Spine MRI COMPARISON: Thoracic spine MRI dated 11/07/2019 and lumbar spine MRI dated 09/10/2019. ALIGNMENT: Anterior posterior alignment is maintained. VERTEBRAE: No acute compression fracture in the thoracic spine. Minor scattered endplate degenerative changes and marginal spurring. HARDWARE: None in the spine. CORD: Grossly within normal limits, assessment is limited by artifact. There is no convincing T2 hyperintense cord signal alteration reproduced on 2 separate sequences including at the T10-T11 level. THORACIC DISCS: T6-T7: There is a posterior disc protrusion eccentric to the left indenting the ventral thecal sac. Dorsal CSF cleft is maintained and the neural foramen is patent. T10-T11: No significant disc bulge. Thickened ligamentum flavum indents the dorsal thecal sac. Neural foramen are patent. At the remainder of the thoracic levels no significant disc bulge, spinal canal or neural foraminal narrowing. LOWER CERVICAL: Incompletely imaged. No high-grade spinal canal narrowing. UPPER LUMBAR: Incompletely imaged. No high-grade spinal canal narrowing. IMPRESSION: Overall similar examination when compared to the previous MRI of 11/07/2019 as above. Prior surgical treatment/ evaluation: Per Dr. Higuera's 11/21/2019 note: This is a 48-year-old white female who presents with a 10 year history of recalcitrant low back pain. She is on disability for history of depression. He describes pain radiating into the left buttockand lateral thigh. She denies any lower extremity numbness or weakness or bowel or bladder difficulties. Her low back pain is more less constant. She has had some physical therapy and some injectionsin the past but it has been quite some time. Her pain tends to be worse with activity and walking. She is taking gabapentin for this as well as a muscle relaxer. She has used a TENS unit in the past but is does not have 1 now. ASSESSMENT: Morbid obesity with grade 1 isthmic spondylolisthesis L5-S1 and soft tissue hypersensitivity PLAN: TENS unit and Pain Service referral and a bariatric surgery consult INTERVAL HISTORY (09/04/2023) Patient returns to the clinic for a f/u visit for ongoing back pain. Patient has a history of DM, reportedly well controlled. Patient underwent LESI on 11/04/2022. Patient reports 80% pain relief with significant functional improvement and ADLs. At the last visit we discussed bilateral L5 LSNR. Patient reports low back pain start about 1 month ago. Pain is radiating down bilateral leg, L>R. Patient also reports subjective weakness, numbness/tingling down her leg. Pain worse with walking.Legs give out. Today, the pain is described as noted below: Pain Assessment Pain Score: 9 Pain Location: Back (Lumbar) Pain Radiating Towards: bilateral low back, hips and legs Pain Descriptors: Tightness, Sharp, Aching ( pinched nerve ) Pain Frequency: Constant/continuous Pain Onset: Ongoing Clinical Progression: Gradually worsening Patient's Stated Pain Goal: No pain She denies any changes in the characteristics of symptoms compared to last visit. Denies any new weakness, numbness, or bowel and bladder incontinence. Patient is currently tolerating medications listed below as prescribed. Reports benefit without side effects such as sedation or feeling groggy. Pain Medications Abilify Maintena 400 mg IM injection ARIPiprazole (ABILIFY) 10 mg tablet Take 1 tablet (10 mg total) by mouth daily DULoxetine DR ECHEVERRIAALTA) 60 mg capsule tiZANidine (ZANAFLEX) 4 mg tablet Take 1 tablet (4 mg total) by mouth 2 (two) times a day traZODone (DESYREL) 100 mg tablet TK 1 T PO HS gabapentin (NEURONTIN) 600 mg tablet Take 1.5 tablets (900 mg total) by mouth 3 (three) times a day Results Allergies Allergen Reactions Risperidone Other (See comments) and Hives Violent and agitated. Sulfa (Sulfonamide Antibiotics) Hives Reaction: Hives, Topiramate Other (See comments) and Hives Difficulty with speech and word finding. Ziprasidone Hcl Other (See comments) Abnormal mouth movements Ziprasidone Hives Past Medical History: Diagnosis Date Anemia Anxiety 1989 Arthritis Bipolar disorder ([facility] 2021 Depression Diabetes mellitus ([facility]) 2023 Fractures Gastric reflux Hypercholesteremia Hypertension Irritable bowel syndrome 2019 Low back pain 2002 Morbid obesity ([facility]) 2001 Sleep apnea 2009 Substance abuse ([facility]) ([facility]) 1992 Thyroid disease Type 2 diabetes mellitus ([facility]) 2023 Past Surgical History: Procedure Laterality Date SECTION CHOLECYSTECTOMY Social History Tobacco Use Smoking status: Never Passive exposure: Current Smokeless tobacco: Never Substance and Sexual Activity Drug use: Not Currently Types: Cocaine Comment: 2x/month Sexual activity: Not Currently Alcohol Use: Not At Risk (09/04/2023) AUDIT-C Frequency of Alcohol Consumption: Never Average Number of Drinks: Patient does not drink Frequency of Binge Drinking: Never Family History Problem Relation Age of Onset Hypertension Mother Anxiety disorder Mother Diabetes Mother Arthritis Mother Depression Mother Obesity Mother Mental illness Father Obesity Father HOME MEDICATIONS : Abilify Maintena 400 mg IM injection albuterol HFA (PROVENTIL HFA,VENTOLIN HFA,PROAIR HFA) 90 mcg/actuation inhaler ARIPiprazole (ABILIFY) 10 mg tablet benztropine (COGENTIN) 0.[address] (CYMBALTA) 60 mg capsule fluticasone propionate (FLONASE) 50 mcg/actuation nasal spray irbesartan (AVAPRO) 150 mg tablet irbesartan-hydrochlorothiazide (AVALIDE) 150-12.5 mg per tablet levothyroxine (SYNTHROID) 50 mcg tablet lidocaine (LIDODERM) 5 % loperamide (IMODIUM) 2 mg capsule metFORMIN XR (GLUCOPHAGE XR) 500 mg 24 hr tablet metoprolol XL (TOPROL-XL) 25 mg extended release tablet multivitamin with minerals tablet nitrofurantoin monohydrate (MACROBID) 100 mg capsule omeprazole (PriLOSEC) 40 mg capsule ondansetron ODT (ZOFRAN-ODT) 4 mg disintegrating tablet senna (SENOKOT) 8.6 mg tablet simvastatin (ZOCOR) 10 mg tablet tiZANidine (ZANAFLEX) 4 mg tablet traZODone (DESYREL) 100 mg tablet triamterene-hydroCHLOROthiazide 37.5-25 mg per tablet gabapentin (NEURONTIN) 600 mg tablet gabapentin (NEURONTIN) 600 mg tablet Review of Systems Intake form reviewed, unremarkable for any new, acute, and significant life- threatening or concerning symptoms. Other pertinent ROS symptoms as noted in the HPI/Interval history. Physical Exam Vitals: 09/04/23 1012 BP: (!) 155/106 Pulse: 93 Resp: 14 Temp: 97.7 ??F (36.5 ??C) SpO2: 96% Weight: 127 kg (280 lb) Height: 157.5 cm (5' 2 ) Body mass index is 51.21 kg/m??. Physical Exam GENERAL: Well-appearing, no apparent distress, appears stated age. HEENT: Normocephalic, EOMI, nares patent, trachea midline. CARDIOVASCULAR: Well-perfused extremities. RESPIRATORY: Non-labored breathing. ABDOMINAL: Normal external appearance. PYSCH: Pleasant, normal affect, euthymic mood. SKIN: Overall warm and dry. NEURO/MSK: Alert & oriented. Cognition intact. Sensory exam to light touch- Lower Extremities Dermatome Right Left L2 Normal Normal L3 Normal Normal L4 Normal Dull L5 Normal Dull S1 Normal Normal S2 Normal Normal Some facet tenderness audie; lumbar facet loading positive bilaterally SI joint tenderness, OFE, Cordova's, Compression tests positive bilaterally Assessment Encounter Diagnoses Name Primary? Lumbar radiculopathy Yes Sacroiliitis (HCC) The above note documents my personal evaluation of this patient. In addition, I have reviewed and confirmed with the patient and nurse the supportive information documented in today's scanned PatientHealth Questionnaire and Office Note. Plan 1. Intervention: Given the signs and symptoms of lumbar radiculopathy with positive symptoms on dural tension maneuver such as SLR/Slump test, we will proceed with LSNR at L5 at future visit. Given the signs and symptoms consistent with sacroiliitis and positive symptoms upon provocative test including Srikanth finger/OFE/Gaenslen's/sacral distraction/thigh thrust/sacral compression, we will proceed with bilateral SI joint injection at future visit. R/B/A discussed, including but not limited to bleeding, infection, and possible nerve injury/paralysis. Alternatives (risks) include: medication management (dependency), no intervention (increased pain). Patient understand risks/benefits/alternatives and agrees to proceed with injection. 2. Medications: a. Opioids: Opioids are not indicated at this current time. b. Adjuvants: I reviewed the current therapy with the patient today. Patient to continue with the current therapy. We increased her gabapentin to 900 TID Today. 3. Imaging: Due to the patient's symptoms, we will obtain imaging of L-spine MRI 4. Referral: No referrals needed at this current time., Encourage weight loss, and I will refer thepatient to physical therapy once pain is somewhat manageable; this will give the patient the best chance of continuing to do physical therapy and home exercise program in the future. 5. Follow-up: At the next possible visit for the procedure listed above. Hipolito Parikh MD PhD Clinical Fellow, Pain Management Department of Anesthesiology [facility] [place] 09/04/23 Cosigned by Katrina Wilkes MD at 09/05/2023 10:44 AM CDT documented in this encounter Miscellaneous Notes * Op Note - Katrina Wilkes MD - 09/27/2023 9:30 AM CDT SURGEON: Katrina Wilkes MD ASSISTING: Hardeep Sanchez MD PhD NAME OF PROCEDURE: Lumbar Transforaminal Epidural Steroid Injection (Selective Nerve Root Injection) at Bilateral L5-S1 PREPROCEDURAL DIAGNOSES: Lumbar radiculopathy POSTPROCEDURAL DIAGNOSES: Lumbar radiculopathy INDICATION FOR PROCEDURE: Patient has persistent pain radiating to bilateral lower extremity that is refractory to conservative therapy. INFORMED CONSENT: After reviewing the procedure with the patient, informed consent to proceed with the injection was obtained. A procedural permit was also signed. DESCRIPTION OF PROCEDURE: The patient was placed in the prone position on the fluoroscopy table. Fluoroscopy was used to identify the right L5-S1 level(s). The lumbar area was prepped with chlorhexadine solution and draped with sterile towels. Sterile technique was used throughout. At each needle entry point for the injection, the skin and subcutaneous tissues were infiltrated with 1% lidocaine. A 22-gauge B - bevel spinal needle was introduced and positioned with fluoroscopic imaging. The needle was advanced to the posterior margin of the neural foramen at each level. Needle positioning wasverified with AP and lateral fluoroscopic images under live fluoroscopy. Radiographic contrast (Omni paque 300) was injected via extension tubing (volume 0.5 ml.), with injected contrast being spread in the anticipated path of the nerve root. There was no spread of contrast into the spinal canal. There was no intra-vascular spread of contrast. Radiographic contrast was seen to spread into the epidural space. 2 cc of a solution containing 2 cc of 0.25% Bupivacaine and 2 cc of dexamethasone 4 mg/cc was injected at each level, resulting in dispersion of the previously injected contrast. No paresthesias wereencountered during needle placement or injection of the solution. Same procedure was repeated on the opposite side Operative Findings: The procedure was completed as planned. Complications: There were no apparent complication. Estimated Blood Loss: None Intraoperative Fluids: None Specimens: None Dr. Katrina Wilkes performed the entire procedure. DISPOSITION: Patient discharged home in stable condition. Katrina Wilkes MD documented in this encounter Plan of Treatment [...] Procedure Name Priority Date/Time Associated Diagnosis Comments PAIN MGMT IMAGING LUMBAR/SACRAL SELECTIVE NERVE ROOT INJ (TFE) BILATERAL Schedule Routine, Read Routine (OP Routine) 09/27/2023 12:25 PM CDT Lumbar radiculopathy documented in this encounter Results * Imaging Lumbar/Sacral Selective Nerve Root INJ (TFE) Bilateral (75169) (09/27/2023 12:25 PM CDT) Narrative [facility] - 09/27/2023 12:25 PM CDT The images from this study are not interpreted by Radiology. ??Please refer to the physician's procedure / OR operative note. Hipolito Parikh MD PhD IMG PAIN MGMT PROCEDURE S Final Result Performing Organization Address City/State/[facility] Co de Phone Number [facility] documented in this encounter Visit Diagnoses Diagnosis Lumbar radiculopathy Thoracic or lumbosacral neuritis or radiculitis, unspecified documented in this encounter Administered Medications Inactive Administered Medications - up to 3 most recent administrations Medication Order MAR Action Action Date Dose Rate Site BUPivacaine (MARCAINE) 0.25 % (2.5 mg/mL) preservative free injection As needed, Starting on Mon09/27/23 at 1222, Intra-Op Given 09/27/2023 12:22 PM CDT 2 mL dexAMETHasone (DECADRON) 4 mg/mL injection Administer over 2 Minutes, As needed, Starting on Mon09/27/23 at 1222, Intra-Op Given 09/27/2023 12:22 PM CDT 8 mg iohexoL (OMNIPAQUE) 300 mg iodine/mL injection solution As needed, Starting on Mon09/27/23 at 1221, Intra-Op Given 09/27/2023 12:21 PM CDT 1.25 mL lidocaine (PF) (XYLOCAINE) 10 mg/mL (1 %) preservative free injection As needed, Starting on Mon09/27/23 at 1217, Intra-Op Given 09/27/2023 12:17 PM CDT 5 mL documented in this encounter Discontinued Medications Medication Sig Discontinue Reason Start Date End Da te nitrofurantoin monohydrate (MACROBID) 100 mg capsule Take 1 capsule (100 mg total) by mouth 2 (two) times a day Therapy completed 12/20/2022 09/27/2023 documented as of this encounter Historical Medications * This list may reflect changes made after this encounter. acetaminophen (TYLENOL) 500 mg tablet Take 2 tablets (1,000 mg total) by mouth every 6 (six) hours as needed for pain hydrOXYzine (ATARAX) 25 mg tablet 08/21/2023 added in this encounter Care Teams Museum Exhibit Technician Relationship Specialty Start Date End Date Daja Kern MD [address] [place] [address] [place] [id number] PCP - General 09/10/19 documented as of this encounter
--- OUTSIDE RECORDS SUMMARY | 2024-03-03 19:37 | XMS_ITS | Clinical Summary ---
Author Organization [facility] Address [address] [place] [address] Care Team Providers Care Radio Engineer Name Role Phone Daja Kern MD Primary Care Provider [phone] Allergies Active Allergy Reactions Criticality Noted Date [...] every 6 (six) hours as needed 01/06/20 23 Active senna (SENOKOT) 8.6 mg tablet Take [...] 01/03/2024 OneTouch Verio test strips strip 12/26/19 24 Active chlorhexidine (PERIDEX) 0.12 % oral rinse [...] pollen 09/08/2011 Chronic infection of sinus 09/08/2011 Encounters Date Type Department Care Team Description 01/29/2024 8:43 AM BRAND ACTIVATION MANAGER - 01/29/2024 11:59 PM BRAND ACTIVATION MANAGER Hospital Encounter [facility] Emergency, Room R Discharge Disposition: Discharge to home or self care 01/10/2024 1:00 PM BRAND ACTIVATION MANAGER Therapy [facility] [place] [address] Dilcia Jolly ADVERTISING AGENCY MANAGER Lumbar radiculopathy (Primary Dx); Deconditioned low back 01/04/2024 1:00 PM BRAND ACTIVATION MANAGER Therapy [facility] [place] [address] Alvarado Limon, PT Lumbar radiculopathy (Primary Dx); Deconditioned low back 01/03/2024 12:29 PM BRAND ACTIVATION MANAGER - 01/03/2024 11:59 PM BRAND ACTIVATION MANAGER Hospital Encounter [facility] [address] [place] [address] Spondylolisthesis at L5-S1 level Discharge Disposition: Discharge to home or self care 01/03/2024 10:30 AM BRAND ACTIVATION MANAGER - 01/03/2024 11:59 PM BRAND ACTIVATION MANAGER Hospital Encounter [facility] [place] [facility] [address] [facility] [address] [place] [id number] Katrina Wilkes MD Spondylolisthesis at L5-S1 level (Primary Dx); Spinal stenosis of lumbar region with neurogenic claudication Discharge Disposition: Discharge to home or self care 12/26/2023 3:43 PM CDT - 12/26/2023 11:59 PM CDT Hospital Encounter [facility] Emergency, Room R Discharge Disposition: Discharge to home or self care 12/26/2023 5:23 AM CDT - 12/26/2023 3:47 PM CDT Emergency [facility] Emergency Department [address] [place] [address] Ilya Mesa MD Bipolar affective disorder, current episode depressed, current episode severity unspecified (HCC) (Primary Dx); Acute cystitis without hematuria Discharge Disposition: Discharge to psych hospital or psych unit 12/26/2023 5:07 AM CDT - 12/26/2023 11:59 PM CDT Hospital Encounter [facility] Emergency, Room R Discharge Disposition: Discharge to home or self care 12/20/2023 1:00 PM CDT Therapy [facility] [place] [address] Alvarado Limon, PT Lumbar radiculopathy (Primary Dx); Deconditioned low back 12/18/2023 1:00 PM CDT Therapy [facility] [place] [address] Alvarado Limon, PT Lumbar radiculopathy (Primary Dx); Deconditioned low back 12/12/2023 4:45 PM CDT Therapy [facility] [place] [address] Alvarado Limon, PT Lumbar radiculopathy (Primary Dx); Deconditioned low back 12/04/2023 2:30 PM CDT Therapy [facility] [place] [address] Alvarado Limon, PT Lumbar radiculopathy; Deconditioned low back 12/04/2023 Plan of Care Documentation [facility] [place] - [place] [address] from Last 3 Months Surgical History Surgery Date Site/Laterality Comments SECTION CHOLECYSTECTOMY Medical History Medical History Date Comments Anemia Depression Gastric reflux Hypercholesteremia Hypertension Thyroid disease Arthritis Anxiety 1989 Bipolar disorder ([facility]) 2021 Type 2 diabetes mellitus ([facility]) 2023 Irritable bowel syndrome 2019 Low back pain 2002 Morbid obesity ([facility]) 2001 Sleep apnea 2009 Diabetes mellitus ([facility]) 2023 Substance abuse ([facility]) ([facility]) 1992 Fractures Low back pain Family History Medical History Relation Name Comments Mental illness Father Feng Cruz Obesity Father Feng Cruz Anxiety disorder Mother Lyla Jolly Arthritis Mother Lyla Jolly Depression Mother Lyla Jolly Diabetes Mother Lyla Jolly Hypertension Mother Lyla Jolly Obesity Mother Lyla Jolly Relation Name Status Comments Father Feng Cruz Mother Lyla Jolly Social History Tobacco Use Types Packs/Day Years [...] on file Legal Sex Female 6:59 AM BRAND ACTIVATION MANAGER Gender Identity Not on file Sexual Orientation Not on file Obstetrics History Last Filed Vital Signs Vital Sign Reading Time Taken Comments Blood Pressure 118/71 01/03/2024 11:05 AM BRAND ACTIVATION MANAGER Pulse 91 01/03/2024 11:05 AM BRAND ACTIVATION MANAGER Temperature 36.9 ??C (98.4 ??F) 01/03/2024 11:[address] Respiratory Rate 16 01/03/2024 11:05 AM BRAND ACTIVATION MANAGER Oxygen Saturation 94% 01/03/2024 11:05 AM BRAND ACTIVATION MANAGER Room air Inhaled Oxygen Concentration - - Weight 125.6 kg (277 lb) 01/03/2024 11:05 AM BRAND ACTIVATION MANAGER Height 157.5 cm (5' 2 ) 01/03/2024 11:05 AM BRAND ACTIVATION MANAGER Body Mass Index 50.66 01/03/2024 11:05 AM BRAND ACTIVATION MANAGER Plan of Treatment Health Maintenance Due Date Last Done Comments Cervical Cancer Screening 1972 Colon Cancer Screening-Colonoscopy 1972 Depression Screening 1972 Hepatitis C Screening 1972 Pneumococcal vaccine <65 (1 of 2 - PCV) 1978 Hepatitis B Screening 1990 Regular Well Visit/Exam 18-64 1990 Zoster Vaccine (1 of 2) 2022 Influenza Vaccine (#1) 2023 3, 01/05/2021, 12/20/2017, Additional history exists Breast Cancer Screening-Mammogram 11/15/2024 11/16/2023, 11/16/2023, 07/29/2020, Additional history exists DTaP/Tdap/Td Vaccine (3 - Td or Tdap) 06/22/2032 06/22/2022, 08/13/2015 Goals Goal Patient Goal Type Associated Problems [...] Read Routine (OP Routine) 01/03/2024 12:47 PM BRAND ACTIVATION MANAGER Spondylolisthesis at L5-S1 level ECG 12-LEAD Routine [...] Ext min 4 Views (01/03/2024 12:47 PM BRAND ACTIVATION MANAGER) Anatomical Region Laterality Modality L-spine N/A Computed Radiogr aphy 01/03/2024 12:5 0 PM BRAND ACTIVATION MANAGER Impressions 01/03/2024 12:50 PM BRAND ACTIVATION MANAGER 1. ??Severe L5-S1 spondylosis with grade 2 spondylolytic spondylolisthesis Electronically signed by: Shikha Barnes MD Narrative 01/03/2024 12:50 PM BRAND ACTIVATION MANAGER EXAMINATION: XR SPINE LUMBAR AP LAT FLEX [...] CDT) 12/26/2023 12:4 3 PM CDT Narrative [facility] - 12/27/2023 8:05 AM CDT Vent Rate: 87 bpm RR Interval: 682 msec WI Interval: 135 msec QRS Duration: 102 msec QT Interval: 368 msec QTC Interval: 413 msec P-R-T Pearce: 34 - -14 - 26 degrees IMPRESSION: SINUS RHYTHM VOLTAGE CRITERIA FOR LVH ??[MEETS CRITERIA IN ONE OF: R(aVL), S(V1), R(V5), R(V5/V6)+S(V1)] ABNORMAL ECG No change compared to prior EKG Electronically Signed By: Ken Woods MD MHB Ilya Mesa MD ECG ORDERABLES Fin al Result [facility] * POCT glucose (12/26/2023 5:55 AM CDT) Glucose, POC 167 70 - 199 mg/dL Blood 12/26/2023 5:55 AM CDT 12/26/2023 5:55 AM CDT Notinfile Unknown LAB POCT ORDERABLES - DEVICE F inal Result Performing Organization Address City/[facility]/ZIP Co de Phone Number [facility] ([place]) 1 [facility] Department [place] [address] * Influenza A/B, RSV, and COVID-19 PCR Nasopharyngeal (12/26/2023 5:50 AM CDT) [facility] COVID-19 RNA Negative Negative Influenza A RNA Negative Negative [facility] ([place]) Influenza B RNA Negative Negative [facility] ([place]) RSV RNA Negative Negative [facility]) Comment: Interpretive data: Testing performed by [facility]. This test is performed using the [employer]ogi Xpert Xpress CoV-2/Flu/RSV plus assay. This is a multiplex, real- time reverse transcriptase PCR assay intended for the qualitative detection of nucleic acid from SARS-CoV-2, influenza A, influenza B, and respiratory syncytial virus. This assay has been cleared by the [place] Food and Drug administration. The performance characteristics have been verified by the [facility]. ?? Results must be considered in the clinical context, and a negative result does not rule out infection. Interpretive Data last revised 2023 Nasopharyngeal 12/26/2023 5: 50 AM CDT 12/26/2023 5:54 AM CDT Narrative [facility] ([place]) - 12/26/2023 6:43 AM CDT Is the Patient experiencing symptoms consistent with COVID?->No Gt Knox MD LAB MICROBIOLOGY - GENERAL O RDERABLES Final Result [facility] ([place]) 1 [facility] Department [place] [address] * eGFR (12/26/2023 5:50 AM CDT) eGFR [...] of Race in Diagnosing Kidney Disease, JASN 202). The CKD-EPI equation should not be used for patients with unstable renal function and has not been validated in children and those over 70. Current interpretive data was last reviewed 2020. Blood 12/26/2023 5:50 AM CDT 12/26/2023 5:54 AM CDT Gt Knox MD LAB BLOOD ORDERABLES Final R esult [facility] ([place]) 1 [facility] Department [place] [address] * Differential, auto (12/26/2023 5:50 AM CDT) Neutrophil abs 5.5 1.5 - 6.5 K/cumm Imm gran abs 0.0 0.0 - 0.1 K/cumm [facility] ([place]) Lymphocyte abs 2.2 0.8 - 3.3 K/cumm [facility] ([place]) Monocyte abs 0.5 0.2 - 0.8 K/cumm [facility] ([place]) Eosinophil abs 0.1 0.0 - 0.5 K/cumm [facility] ([place]) Basophil abs 0.0 0.0 - 0.1 K/cumm [facility] ([place]) Neutrophil pct 66.0 % [facility] ([place]) Comment: Interpretive Data Percent cell count reference ranges are not reported, since discordance with absolute values may lead to misinterpretation of CBC data. Current Interpretive Data was last revised on 2017. Imm gran pct 0.2 % [facility] ([place]) Comment: Interpretive Data Percent cell count reference ranges are not reported, since discordance with absolute values may lead to misinterpretation of CBC data. Current Interpretive Data was last revised on 2017. Lymphocyte pct 25.9 % [facility] ([place]) Comment: Interpretive Data Percent cell count reference ranges are not reported, since discordance with absolute values may lead to misinterpretation of CBC data. Current Interpretive Data was last revised on 2017. Monocyte pct 6.1 % [facility] ([place]) Comment: Interpretive Data Percent cell count reference [...] revised on 2017. Basophil pct 0.5 % [facility] ([place]) Comment: Interpretive Data Percent cell count reference ranges are not reported, since discordance with absolute values may lead to misinterpretation of CBC data. Current Interpretive Data was last revised on 2017. Blood 12/26/2023 5:50 AM CDT 12/26/2023 5:54 AM CDT Gt Knox MD LAB BLOOD ORDERABLES Final R esult [facility] ([place]) [address] [place] [address] * Thyroid Function Singer (12/26/2023 5:50 AM CDT) TSH 3.42 0.30 - 4.20 mcIUnit/mL Blood 12/26/2023 5:50 AM CDT 12/26/2023 5:54 AM CDT Gt Knox MD LAB BLOOD ORDERABLES Final R esult Performing Organization Address City/[facility] Co de Phone Number [facility] ([place]) [address] [place] [address] * (ABNORMAL) Urinalysis reflex to microscopic and culture Urine (12/26/2023 5:50 AM CDT) Color, ur Yellow Yellow Clarity, ur Turbid(A) Clear [facility] ([place]) Specific gravity, ur 1.017 1.003 - 1.030 [facility] ([place]) pH, urine 6.5 [facility] ([place]) Comment: Interpretive Data ? Urine pH is affected by diet, medications, systemic acid-base disturbances, and renal tubular function. ??pH may affect urinary stone formation. ??For example, urine pH below 6.0 may help reduce the tendency for calcium phosphate stones and pH greater than 6.0 may reduce the tendency for uric acid stone formation. Source: [facility] [employer] Current Interpretive Data was last revised on [...] AM CDT us Gt Knox MD LAB MICROBIOLOGY - GENERAL O RDERABLES Final Result [facility] ([place]) 1 [facility] Department [place] [address] * CBC with auto differential (12/26/2023 5:50 AM CDT) WBC 8.4 3.8 - 9.9 K/cumm Hgb 13.3 11.9 - 15.5 g/dL [facility] ([place]) Hct 39.6 35.6 - 45.5 % [facility] ([place]) Plt 207 150 - 400 K/cumm [facility] ([place]) MPV 11.0 9.1 - 12.3 fL [facility] ([place]) RBC 4.33 3.90 - 5.20 M/cumm [facility] ([place]) MCV 91.5 81.3 - 96.4 fL [facility] ([place]) MCH 30.7 27.1 - 33.3 pg [facility] ([place]) MCHC 33.6 32.3 - 35.7 g/dL [facility] ([place]) RDW CV 13.2 11.1 - 14.9 % [facility] ([place]) RDW SD 43.4 35.7 - 48.1 fL [facility] ([place]) NRBC abs 0.00 0.00 - 0.01 K/cumm [facility] ([place]) Blood (Blood, Venous) 12/26/2023 5:50 AM CDT 12/26/2023 5:54 AM CDT Gt Knox MD LAB BLOOD ORDERABLES Final R esult [facility] ([place]) 1 [facility] Department [place] [address] * (ABNORMAL) Drugs of Abuse Screen, Urine without Confirmation (12/26/2023 5:50 AM CDT) Pathologist [facility] Amphetamine, ur Not Detected CutOff 500ng/mL Comment: Interpretive Data - Amphetamines: ??Samples containing greater than 500 ng/mL d-methamphetamine ??or other cross-reacting amphetamine compounds are reported as positive. ??Amphetamine immunoassays are subject to significant false positive rates due to cross-reactivity of non-amphetamine drugs. Confirmatory testing required for definitive results. Current Interpretive Data was last reviewed 2022. Barbiturates, ur Not Detected CutOff 200ng/mL [facility] ([place]) Comment: Interpretive Data - Barbiturates: ??Samples containing greater than 200 ng/mL secobarbital or other cross-reacting barbiturate compounds are reported as positive. ??False positive and false negative results are possible. Confirmatory testing required for definitive results. Current Interpretive Data was last reviewed 2022. Benzodiazepines, ur Not Detected CutOff 100ng/mL [facility] ([place]) Comment: Interpretive Data - Benzodiazepines: ??Samples containing greater than 100 ng/mL nordiazepam or other cross-reacting compounds are reported as positive. False positive and false negative results are possible. Confirmatory testing required for definitive results. Current Interpretive Data was last reviewed 2022. Cannabinoids, ur Not Detected CutOff 50 ng/mL [facility] ([place]) Comment: Interpretive Data - Cannabinoids: [...] 2022. Oxycodone, ur Not Detected CutOff 100ng/mL [facility] ([place]) Comment: Interpretive Data - Oxycodone: ??Samples containing greater than 100 ng/mL oxycodone or other cross-reacting compounds are reported as ??positive. ??False positive and false negative results are possible. Confirmatory testing required for definitive results. Current Interpretive Data was last reviewed 2022. Phencyclidine, ur Not Detected CutOff 25 ng/mL [facility] ([place]) Comment: Interpretive Data - Phencyclidine: ??Samples containing greater than 25 ng/mL phencyclidine or other cross-reacting compounds are reported as positive. ??False positive and false negative results are possible. Confirmatory testing required for definitive results. Current Interpretive Data was last reviewed 2022. Urine Creatinine 114 mg/dL [facility] ([place]) Comment: Interpretive Data Urine Creatinine: < 10 mg/dL is extremely dilute = or > 10 but < 20 mg/dL is dilute = or > 20 mg/dL is normal Current Interpretive Data was last revised on 2017. Urine 12/26/2023 5:50 AM CDT 12/26/2023 5:55 AM CDT Narrative [facility] ([place]) - 12/26/2023 6:44 AM CDT Drug of Abuse screening is performed by immunoassay for medical purposes only. ??This is not to be used for Pain Management purposes. Gt Knox MD LAB URINE ORDERABLES Final R esult Performing Organization Address [facility] Co de Phone Number [facility] ([place]) 1 [facility] [place] [address] * hCG, urine, qualitative (12/26/2023 5:50 AM CDT) HCG, ur Negative Negative Urine 12/26/2023 5:50 AM CDT 12/26/2023 9:36 AM CDT Ilya Mesa MD LAB URINE ORDERABLE S Final Result Performing Organization Address [facility] de Phone Number [facility] ([place]) 1 [facility] [place] [address] * (ABNORMAL) Urinalysis, microscopic only (12/26/2023 5:50 AM CDT) WBC, ur 21-50(A) 0 - 5 /HPF RBC, ur 0-2 0 - 2 /HPF [facility] ([place]) Epithelial cells, squamous, ur 6-10(A) 0 - 5 /HPF [facility] ([place]) Bacteria, ur 3+(A) [facility] ([place]) Mucous, ur Present(A) [facility] ([place]) Culture Reflex Comment Reflex to urine culture will be performed. [facility] ([place]) Urine 12/26/2023 5:50 AM CDT 12/26/2023 5:54 AM CDT Gt Knox MD LAB URINE ORDERABLES Final R esult [facility] ([place]) 1 [facility] Department [place] [address] * (ABNORMAL) Urine culture Urine (12/26/2023 5:50 AM CDT) Report Final Report: Greater than or equal to 100,000 colonies/mL of Klebsiella pneumoniae Greater than or equal to 100,000 colonies/mL of Klebsiella pneumoniae #2 Greater than or equal to 100,000 colonies/mL of Escherichia coli (.) Comment:Testing performed by : [facility], 1 [facility] [address] Organism KLEBSIELLA PNEUMONIAE [facility] ([place]) Organism KLEBSIELLA PNEUMONIAE [facility] ([place]) Organism ESCHERICHIA COLI [facility] ([place]) Urine 12/26/2023 5:50 AM CDT 12/26/2023 9:30 AM CDT Narrative [facility] ([place]) - 12/29/2023 10:03 AM CDT Urine culture reflexed based upon urinalysis results. Testing performed by [facility] Laboratory ([phone]) Organism Antibiotic Method Susceptibility Klebsiella pneumoniae Ampicillin [...] INTERPRETATION Susceptible Escherichia coli Cefdinir INTERPRETATION Susceptible Gt Knox MD LAB MICROBIOLOGY - GENERAL O RDERABLES Final Result Performing Organization Address City/[facility]/ZIP Co de Phone Number [facility] ([place]) [address] [place] [address] [place] [address] * Ethanol (12/26/2023 5:50 AM CDT) Ethanol <10 <=10 mg/dL Comment: Interpretive Data Legal limit of intoxication > or = 80 mg/dL Levels > or = 400 mg/dL are potentially TOXIC. Current interpretive data was last revised on 2018. Blood 12/26/2023 5:50 AM CDT 12/26/2023 5:54 AM CDT Gt Knox MD LAB BLOOD ORDERABLES Final R esult [facility] ([place]) 1 [facility] [place] [address] * (ABNORMAL) Comprehensive metabolic panel (12/26/2023 5:50 AM CDT) Sodium 138 135 - 145 mmol/L Potassium, pl 3.9 3.3 - 4.9 mmol/L [facility] ([place]) Chloride 99 97 - 110 mmol/L [...] 81 40 - 130 Units/L [facility] ([place]) ALT 33 7 - 45 Units/L [facility] ([place]) AST 21 10 - 45 Units/L [facility] ([place]) Blood 12/26/2023 5:50 AM CDT 12/26/2023 5:54 AM CDT us Gt Knox MD LAB BLOOD ORDERABLES Final R esult [facility] ([place]) 1 [facility] Department [place] [address] * Acetaminophen level (12/26/2023 5:49 AM CDT) [...] after ingestion Consult toxicology or poison control ([phone]) for unknown ingestion time. Current interpretive data was last revised 2022. Blood 12/26/2023 5:49 AM CDT 12/26/2023 7:22 AM CDT Ilya Mesa MD LAB BLOOD ORDERABLE S Final Result Performing Organization Address [facility] Co de Phone Number [facility] ([place]) 1 [facility] [place] [address] * Salicylate level (12/26/2023 5:49 AM CDT) Salicylate <5.0 <=5.0 mg/dL Comment: Interpretive Data Toxic: 30 mg/dL or greater. Current interpretive data was last revised 2022. Blood 12/26/2023 5:49 AM CDT 12/26/2023 7:22 AM CDT Ilya Mesa MD LAB BLOOD ORDERABLE S Final Result Performing Organization Address City/[facility]/ZIP Co de Phone Number [facility] ([place]) 1 [facility] [place] [address] from Last 3 Months Insurance [facility] Care Teams Radio Engineer Relationship Specialty Start Date End Date Daja Kern MD [address] [place] [address] [place] [id number] PCP - General 09/10/19
--- OUTSIDE RECORDS SUMMARY | 2024-03-03 19:37 | XMS_ITS | Continuity of Care Document ---
Author Organization José HERNANDEZ (CAMPUS POLICE OFFICER) Address [address] [place] [address] Care Team Providers Care District Plant Engineer Name Role Phone DAJA CARBALLO Primary Care Provider [phone] TRUPTI MEJIA Senior Care Manager Assessment No assessment recorded. Plan of Treatment Reminders Order Date Submit Date Provider Last Modified By Organization Details Last Modified Time Details Appointments ANY 30 2024 01:00P M Daja Carballo MD Not available Not available Not available Lab None recorded. Referral gynecolog ic surgery referral - new postmenop ausal bleeding x1 week in patient with prior endometri al biopsy (2016) showing simple endometri al hyperplas ia without atypia. desires hysterect katharina. 2023 024 [facility], [address] [place] [address], [address], 02/02/2024 10:44:36 Procedures None recorded. Surgeries None recorded. Imaging None recorded. Medication Orders oxycodone 5 mg tablet 2023 024 [id number], [address], [place], [place], [id number], 01/19/2024 13:18:06 fluconazo le 150 mg tablet 2023 024 [email or web address] [facility] #[id number], [address], [place], [place], [id number], 01/19/2024 13:17:00 Patient TargetsNo targets recorded. Patient InstructionsNo instructions recorded. Reason for Referral Gynecologic Surgery Referral for Postmenopausal bleeding new postmenopausal bleeding x1 week in patient with prior endometrial biopsy (2016) showing simple endometrial hyperplasia without atypia. desires hysterectomy. Referring Physician: Trupti Mejia, Family Medicine, Encounter Date: 01/18/2024 Results Created Date Observation Date Name Description Value Unit Range Abnormal Flag Note LastModifiedBy Organization Detail LastModifiedTime 12/19/1912/19/2023 US, breas t, unila teral No observ ation record ed. [facility] [address] [place], [address], 12/26/2023 10:11:39 12/19/1912/19/2023 MAMMO , diagn ostic , digit al, bilat eral No observ ation record ed. [facility] [address] [place], [address], 12/26/2023 10:11:40 Result Notes None recorded. Problems Name Problem SNOMED Code Status Onset Date Resolution Date Notes Provider Name and Address Organization Details Recorded Time History of colitis 440262184 Active 2018 Daja Carballo MD Attn: Margo phillips,[address] [facility], [place], [address], [place] [facility] 1 12:44:31 Lumbar radiculo sepideh 717642896 Active 2019 Daja Carballo MD Attn: Margo phillips,[address] [facility], [place], [address], [place] [facility] 2 11:57:46 Type 2 diabetes mellitus 30930827 Active 2022 Daja Carballo MD Attn: Margo phillips,[address] [facility], [place], [address], [place] [facility] 3 14:32:00 Chronic obstruct ivet pulmonar y disease 51686567 Active 2023 Daja Carballo MD Attn: Margo g,[address] [facility], [place], [address], [place] [facility] 4 14:21:22 Acute urinary tract infectio n 906814494 Completed 01/22/2016 Daja Carballo MD Attn: Margo g,[address] [facility], [place], [address], [place] [facility] 6 13:12:30 Nephroca lcinosis 54444440 Active us of kidney- Daja Carballo MD Attn: Accountdawood g,[address] [facility], [place], [address], [place] [facility] 2 11:57:47 Candidal intertri go 640543297 Active 2023 TRUPTI MEJIA MD Attn: Accountdawood g,[address] [facility], [place], [address], [place] [facility] 4 14:43:44 Obesity 749743336 Completed 12/21/2016 Daja Carballo MD Attn: Margo g,[address] [facility], [place], [address], [place] [facility] 7 11:19:17 Cough 69844724 Completed 01/22/2016 Daja Carballo MD Attn: Margo g,[address] [facility], [place], [address], [place] [facility] 6 13:12:37 Increase d frequenc y of urinatio n 357178094 Completed 01/22/2016 Daja Carballo MD Attn: Accountdawood g,[address] [facility], [place], [address], [place] [facility] 6 13:12:09 Essentia l hyperten estella 33835207 Active Daja Carballo MD Attn: Accountdawood g,[address] [facility], [place], [address], [place] [facility] 2 11:57:47 Morbid obesity 739048443 Active did not tolerate glp1 Daja Carballo MD Attn: Helenadaowod phillips,[address] [facility], [place], [address], [place] [facility] 3 15:46:55 Irregula r periods 63347545 Active Rabia Garcia null, [place] [facility] 1 11:46:23 Vaginal discharg e 564654232 Completed 01/22/2016 Daja Carballo MD Attn: Margo jacqueline,[address] [facility], [place], [address], [place] [facility] 6 13:12:17 Cyst of ovary 82679167 Active Rabia Jose [place] [facility] 1 11:46:23 Trichomo nal vulvovag initis 17558426 Active Rabia Jose [place] [facility] 1 11:46:23 Bacteria l vaginosi s 852997888 Completed 12/21/2016 Daja Carballo MD Attn: Margo jacqueline,[address] [facility], [place], [address], [place] [facility] 7 11:19:35 Menometr orrhagia 263280258 Active Rabia [place] [facility] 1 11:46:23 Endometr ial hyperpla patti 262260406 Active Rabia Tate [place] [facility] 1 11:46:23 Acute sinusiti s 97064503 Completed 01/22/2016 Daja Carballo MD Attn: Margo jacqueline,[address] [facility], [place], [address], [place] [facility] 6 13:11:57 Hyperlip idemia 84443824 Active Daja Carballo MD Attn: Helenadawood phillips,[address] [place], [address], [place] [facility] 2 11:57:47 Anemia 932210961 Active Rabia [place] [facility] 1 11:46:24 Hypothyr oidism 22051433 Active 2015 Daja Carballo MD Attn: Margo phillips,[address] [place], [address], [place] [facility] 2 11:57:46 Low back pain 580302729 Completed 201512/21/2016 Daja Carballo MD Attn: Margo phillips,[address] [place] [address], [address], [place] [facility] 7 11:19:05 Macromas tia 486359597 Completed 201512/21/2016 Daja Carballo MD Attn: Margo jacqueline,[address] [place] [address], [address], [place] [facility] 7 11:28:01 Hyperten sive disorder 98496472 Completed 01/22/2016 Daja Carballo MD Attn: Margo phillips,[address] [place], [address], [place] [facility] 6 13:12:43 Gastroes ophageal reflux disease 764406750 Active Daja Carballo MD Attn: Margo phillips,[address] [place], [address], [place] [facility] 2 11:57:47 Depressi ve disorder 21082998 Completed 02/03/2016 Daja Carballo MD Attn: Margo phillips,[address] [place], [address], [place] [facility] 6 11:02:18 Anxiety 26004116 Completed 02/03/2016 Daja Carballo MD Attn: Margo phillips,[address] [place] [address], [address], [place] [facility] 6 11:02:52 Bipolar disorder 29941446 Active with substance use -psych Daja Carblalo MD Attn: Margo phillips,[address] [place] [address], [address], [place] [facility] 2 14:55:47 Non-alco holic fatty liver 144366356 Active us 05/19-mild hepatomeg harjeet with steatosis Daja Carballo MD Attn: Margo phillips,[address] [facility], [place], [address], [place] [facility] 3 10:12:40 Chronic back pain 078332915 Active MRI 09/15-ganga re narrowing with L5 root compressi on /T10-11 abnormali ty-seeing spine sx who is retired-r eferred again.-pt has apt with pain mx on 04/03/2020. Daja Carballo MD Attn: Margo phillips,[address] [facility], [place], [address], [facility] - [facility] 2 11:57:46 Hydronep hrosis 06839249 Completed 02/03/2016 Daja Carballo MD Attn: Helenadawood phillips,[address] [facility], [place], [address], [facility] - [facility] 6 11:02:38 Obstruct ivet sleep apnea syndrome 41348637 Active 2016 on CPAP Daja Carballo MD Attn: Margo phillips,[address] [facility], [place], [address], [facility] - [facility] 2 11:57:46 Problem Notes None recorded. Procedures Surgical History Date Name Laterality Status Provider Name and Address Organization Details Recorded Time 11/13/19 Date of Last Pap Smear completed Adeline Green [place] - [place] 11/24/2020 10:45:53 07/30/19 21 Most Recent Mammogram completed Adeline Green [place] - [facility] 11/12/2020 11:48:43 02/07/20 19 EGD completed JORDANA Barriga [place] - [place] 02/06/2019 10:56:05 11/17/19 19 colonoscopy completed Daja Carballo MD Attn: Ladarius, [address] [place], [address], [facility] 01/10/2019 12:43:56 05/29/19 16 Endometrial Biopsy completed Lili Conroy [facility] 05/29/2015 14:41:29 02/27/19 08 Cholecystectomy completed Bailey Faulkner RN [facility] 03/10/2014 15:32:51 02/27/18 95 Caesarean Section completed Adeline Green [facility] 04/15/2015 10:39:11 Imaging Results None recorded. Procedure Notes None recorded. Medical Equipment None Reported. Allergies Allergen ID Allergen Name Allergen Category Reaction Reaction Severity Criticality Documentation Date Start Date Code Code System Note Provider Name and Address Organization Details Recorded Time 17280 risperido ne medicatio n Not available Not available Not available 03/10/2014 56227 RxNorm AGUILA Power, [facility] 5 15:32:51 98256 Geodon medicatio n Not available Not available Not available 03/10/2014 66537 4 RxAGUILA Saunders, [facility] 5 15:32:51 7760 Substance with sulfonami de structure and antibacte rial mechanism of action (substanc e) medicatio n Not available Not available Not available 02/05/2014 90720 8003 SNOMED Bailey Faulkner RN null, [facility] 4 16:51:50 Medications Name Sig Start Date [...] active Not Available Not Available Not Available Abilijanuary Maintena 400 mg intramusc ular suspensio n,extende [...] Updated DateTime 4 157.48 cm 51.3 kg/m2 769169. 26 g 96 % 96 % 98 /min 97.9 [degF] 163 mm[Hg] 109 mm[Hg] Adeline Green [place] - [facility] 4 15:14:17 Social History Question Answer Notes LastModified by Organizat ion Details LastModified Time Tobacco Smoking Status Never Smoker Bailey Faulkner RN null, [place] [facility] 03/10/2014 15:32:52 Do You Have An Advance [...] Do You Have Serious Difficulty Hearing? No [email or web address] Information not available 06/19/2020 What Type Of [...] Or The Highest Degree You Have Received? LV53568-0 [email or web address] Information not available 06/19/2020 What Is Your [...] Seat Belt Or Car Seat Routinely? Yes [email or web address] Information not available 06/19/2020 Seat Belts Used Routinely Yes Information not available 04/15/2015 Are You Sexually Active? Yes Information not available 04/15/2015 Smoke Alarm In Home Yes Information not available 05/22/2019 Do You Have Smoke And Carbon Monoxide Detectors In Your Home? Yes [email or web address] Information not available 06/19/2020 Do You Or Have You Ever Used Smokeless Tobacco? Never Used Smokeless Tobacco Information not available 01/10/2019 How Much Tobacco Do You Smoke? No Information not available 01/10/2019 General Stress Level Medium [email or web address] Information not available 01/22/2020 Do You Feel Stressed (tense, Restless, Nervous, Or Anxious, Or Unable To Sleep At Night)? TT9989-1 [email or web address] Information not available 09/29/2023 Do You [...] you able to care for yourself? Yes [email or web address] Information n ot available 06/19/2020 What is your exercise level? None Information not available 11/26/2019 Mental Status None recorded. Family History Relationship Description Onset Age of this Age Resolved Age Notes LastModified by Organization Details LastModified Time Mother Depressive disorder [email or web address] Not available 09/06 11:34:53 Mother Diabetes mellitus [email or web address] Not available 09/06 11:34:53 Mother Hypertensive disorder [email or web address] Not available 09/06 11:34:53 Brother Depressive disorder Not available 09/06 11:34:53 Father Epilepsy [email or web address] Not availab le 09/07/2015 11:34:53 Medical History Condition Response Coronary Artery Disease N High Blood Pressure Y Atrial Fibrillation N Breast Cancer N Thyroid Problems Y Kidney or Bladder Problems Y Lung Disease N Blood Clots N COPD N Depression Y GI Problems N Acne N Skin Problems N Breast Problem N Eating Disorder N Anemia N Anesthesia Complications N Heart Attack ([place]) N Headaches/Migraines N Ovarian Cancer N Diabetes N Anxiety Disorder Y Muscle, Joint, or Bone Problems Y Blood Transfusions N Seizures/Epilepsy N Polyps N Infertility N Acid Reflux (GERD) Y Cancer N Stroke N Abuse/Domestic Violence N Allergies Y Asthma N Endometriosis Y High Cholesterol Y Hepatitis N [...] Recorded Time Tdap 6 completed Not Available [facility] 03/16/2019 02:29:59 SARS-COV-2 (COVID-19) vaccine, UNSPECIFIED 1 completed Not Available [facility] 03/28/2023 01:29:51 SARS-COV-2 (COVID-19) vaccine, UNSPECIFIED 1 completed Not Available [facility] 03/28/2023 01:29:51 Tdap 3 completed Not Available [facility] 03/28/2023 01:29:51 Influenza, split virus, quadrivalent, preservative 6 completed Not Available [facility] 03/16/2019 02:39:52 Influenza, split virus, quadrivalent, preservative 7 completed Not Available [facility] 03/16/2019 02:34:24 Influenza, split virus, quadrivalent, preservative 8 completed Not Available [facility] 03/16/2019 02:49:55 Influenza, split virus, quadrivalent, preservative 1 completed KEO Thmoas, [place] - [place] 01/05/2021 15:44:33 Influenza, split virus, quadrivalent, preservative 3 completed Yolie Portillo [place] null, [place] [facility] 12/27/2022 15:18:10 Influenza, split virus, quadrivalent, preservative 5 completed Not Available [facility] 03/16/2019 02:32:11 Past Encounters Encounter ID Performer Location Encounter Start Date Encounter Closed Date Diagnosis/Indication Diagnosis SNOMED-CT Code Diagnosis ICD10 Code Diagnosis Note [id number] MD José RIZO (CAMPUS POLICE OFFICER) [address] [place] [address] 01/18/2024 14:47:20 01/22/2024 11:51:30 Postmenopausal bleeding 40571792 N95.0 - Postmenopa usal bleeding with prior history of endometria l biopsy showing simple endometria l hyperplasi a without atypia- Patient interested in hysterecto my rather than repeat endometria l biopsy. If endo Bx needed, would like this done under sedation due to pain with last procedure. Referred to RETINA SUBSPECIALIST for further evaluation and treatment. Cramping pain 544733623 R52 - Unable to use NSAIDs due to GI side effects- Pain not controlled with Tylenol, so will provide short course of oxycodone 5 mg q6-8h PRN for pain Pruritus of vagina 54270 003 L29.3 - Will treat empiricall y for yeast infection with fluconazol e 150 mg once Health Concerns Section Related Observation LastModified by Organization Detai ls LastModified Time None Recorded Concern Status LastModified by Organization Details LastModified Time None Recorded Payers Encounter Date Sequence Insurance Name Policy Number Policy Wagner Covered Member ID Wagner Member ID Guarantor Name 01/18/2024 1 [facility] (MEDICAID HMO) [id number] Alona [place] [id number] Alona Tsai Rolling Machine Tender Notes Date Note Type Note Provider Name and Address Organization Details Recorded Time 01/18/2024 text/html Postmenopausal bleeding- Has bright red [...] ENDOMETRIUM. NO ATYPIA. TRUPTI MEJIA MD Attn: [address]ing[address] [place], [address], [facility] 01/19/2024 13:31:58 OBGyn Episode No OBEpisode recorded.
--- OUTSIDE RECORDS SUMMARY | 2024-03-03 19:37 | XMS_ITS | Encounter Summary ---
Author Organization [facility] Healthcare Address [address] [place] [address] Care Team Providers Care Bushing Press Operator Name Role Phone Daja Kern MD Primary Care Provider [phone] Reason for Visit * Reason Comments PT Initial Eval * Consultation (Routine) - Authorized Specialty Diagnoses / Procedures Referred By Contac t Referred To Contact Physical Therapy Diagnoses Lumbar radiculopathy Deconditioned low back Ander Jules, ADITYA [address] [facility] [address] [place] [address] Phone: tel: fax: [facility] [place] [address] Phone: tel: fax: Referral ID Status Reason Start Date Expiration Date Visits Requested Visits Authorized [id number] Authorized Evaluate and Treat 11/08/2023 12/07/2024 24 13 Encounter Details Date Type Department Care Team (Late st Contact Info) Description 12/04/2023 2:30 PM CDT Therapy [facility] [place] [address] Alvarado Limon, PT Lumbar radiculopathy; Deconditioned low back Social History Tobacco Use [...] on file Legal Sex Female 6:59 AM GEOMORPHOLOGIST Gender Identity Not on file Sexual Orientation Not on file documented as of this encounter Progress Notes * Alvarado Limon, PT - 12/04/2023 2:30 PM CDT Physical Therapy Evaluation 12/04/2023 Alona Eulalio [place] 1970 52 y.o. female Ander Jules NP [address] [place] [address] ICD-10-CM 1. Lumbar radiculopathy M54.16 Ambulatory referral order to Physical Therapy - 2. Deconditioned low back R29.898 Ambulatory referral order to Physical Therapy - PT Initial Eval Subjective History of Present Illness: Alona presents to PT evaluation with complaints of low back pain. She reports it has been ongoing for many years. She reports she had physical therapy in the past as well asinjections without success. She reports constant low back pain that radiates down the L LE. She complains of tingling and burning down to her bettencourt and L foot as well as pain into her L knee. She usesa walker or cane for mobility at all times. She complains of constant pain. Current Symptoms: She complains of pain in the low back and going down the left leg. Pain: Pain location: Low back Current Pain Ratin/10 At worst Pain Ratin/10 At best Pain Ratin/10 Aggravating Factors: standing, walking, being up on feet in general Alleviating Factors: sit down, medication, heat Patient Goals: She would like to eliminate her back pain. Objective Inspection: No obvious deformities noted in low back. Lumbar AROM: Flexion 50 Extension 15 Side bending Right 25 Side bending Left 25 Lower Extremity Strength: Left Right Hip Flexion 4-/5 5/5 Hip Extension 4-/5 5/5 Hip Abduction 4-/5 5/5 Hip Adduction 4-/5 5/5 Knee Extension 4-/5 5/5 Knee Flexion 4/5 5/5 Ankle DF 5/5 5/5 Ankle PF 5/5 5/5 Palpation: There is tenderness to palpation of the left lumbar paraspinals and over the left SIJ. Special Testing: Leg Length: Equal Treatment Provided: Moist heat to low back Manual stretching to low back LTR Bridges Patient requires skilled therapy to restore prior level of function utilizing the treatment and modalities described in this plan of Care. Following the evaluation and extensive patient education regarding diagnosis, prognosis, and treatment goals, the patient (parent/guardian, power of small business representative dewey) actively participated in the creation of the current goals and agrees to the current treatment plan. Assessment/Plan Alona was seen this date for initial evaluation of her low back. She reports discomfort in her low back and down her left leg. She displays decreased lumbar range of motion. There is tenderness to palpation of the lumbar paraspinals and over the left SIJ. There is decreased strength noted in the leftlower extremity. Impairments: activity tolerance, endurance, muscle length, lacks appropriate home exercise program,flexibility, abnormal gait, abnormal or restricted ROM, decreased mobility, impaired physical strength, pain with function. STG: Patient to be independent with HEP. NEW Patient to decrease pain level to 0-2/10. NEW LTG: Patient to increase range of motion as tolerated. NEW Patient to increase strength as tolerated. NEW Patient to return to prior level of function and self care. NEW Planned modality interventions: cryotherapy, ultrasound, thermotherapy (Hydrocollator packs), interferential current Planned therapy interventions: abdominal trunk stabilization, functional ROM exercises, manual therapy, neuromuscular re-education, spinal/joint mobilization, therapeutic activities, strengthening, joint mobilization, gait training, endurance training, flexibility, home exercise program, soft tissue mobilization, stretching. Assessment Prognosis: fair Plan Start time: 1428 End time: 1515 Therapy options: will be seen for skilled therapy services Frequency: 2 x/week Duration in visits: 12 visits Discussed with: patient JEANIE Cuevas documented in this encounter Plan of Treatment [...] of this encounter Visit Diagnoses Diagnosis Lumbar radiculopathy Thoracic or lumbosacral neuritis or radiculitis, unspecified Deconditioned low back documented in this encounter Orders Outpatient Referral Count Last Ordered Date Fir st Ordered Date AMB REFERRAL ORDER TO PHYSICAL THERAPY 1 documented in this encounter Care Teams Bushing Press Operator Relationship Specialty Start Date End Date Daja Kern MD [address] [place] [address] PCP - General 09/10/19 documented as of this encounter
--- OUTSIDE RECORDS SUMMARY | 2024-03-03 19:37 | XMS_ITS | Encounter Summary ---
Author Organization [facility] Healthcare Address [address] [place] [address] Care Team Providers Care Family Caseworker Name Role Phone Daja Kern MD Primary Care Provider Encounter Details Date Type Department Care Team (Latest Contact Info) Description 01/29/2024 8:43 AM CUT TOBACCO BULKER - 01/29/2024 11:59 PM CUT TOBACCO BULKER Hospital Encounter [facility] Emergency, Room [...] on file Legal Sex Female 6:59 AM CUT TOBACCO BULKER Gender Identity Not on file Sexual Orientation [...] on filedocumented in this encounter Care Teams Family Caseworker Relationship Specialty Start Date End Date Daja Kern MD [address] [place] [address] PCP - General 09/10/19 documented as of this encounter
--- OUTSIDE RECORDS SUMMARY | 2024-03-03 19:37 | XMS_ITS | Encounter Summary ---
Author Organization [facility] Healthcare Address [address] [place] [address] Care Team Providers Care Wet Process Miller Head Name Role Phone Daja Kern MD Primary Care Provider Reason for Referral * Diagnostic Imaging (Routine) - Pending Review Specialty Diagnoses / Procedures Referred By Contac t Referred To Contact Diagnoses Spondylolisthesis at L5-S1 level Procedures XR Spine Lumbar Ap Lat Flex Ext min 4 Views Toñito Rust DO Formerly [facility], [id number] [facility] [address] [place] [address] Phone: tel: fax: [address] [address] Referral ID Status Reason Start Date Expiration Date V isits Requested Visits Authorized [id number] Pending Review 01/03/2024 02/01/2025 1 1 INCT POLICE SERGEANT Reason for Visit * Reason Comments Back Pain Encounter Details Date Type Department Care Team (Latest Contact Info) Description 01/03/2024 10:30 AM PRECINCT POLICE SERGEANT - 01/03/2024 11:59 PM PRECINCT POLICE SERGEANT Hospital Encounter [facility] [address] [facility] [address] [place] [address] Katrina Wilkes MD [address] [place] [address] Spondylolisthesis at L5-S1 level (Primary Dx); Spinal [...] on file Legal Sex Female 6:59 AM PRECINCT POLICE SERGEANT Gender Identity Not on file Sexual Orientation Not on file documented as of this encounter Last Filed Vital Signs Vital Sign Reading Time Taken Comments Blood Pressure 118/71 01/03/2024 11:05 AM PRECINCT POLICE SERGEANT Pulse 91 01/03/2024 11:05 AM PRECINCT POLICE SERGEANT Temperature 36.9 ??C (98.4 ??F) 01/03/2024 11:[address] Respiratory Rate 16 01/03/2024 11:05 AM PRECINCT POLICE SERGEANT Oxygen Saturation 94% 01/03/2024 11:05 AM PRECINCT POLICE SERGEANT Room air Inhaled Oxygen Concentration - - Weight 125.6 kg (277 lb) 01/03/2024 11:05 AM PRECINCT POLICE SERGEANT Height 157.5 cm (5' 2 ) 01/03/2024 11:05 AM PRECINCT POLICE SERGEANT Body Mass Index 50.66 01/03/2024 11:05 AM PRECINCT POLICE SERGEANT documented in this encounter Discharge Instructions * Patient Instructions* Elana Godinez RN - 01/03/2024 10:30 AM PRECINCT POLICE SERGEANT [facility] ([facility] DISCHARGE INSTRUCTIONS MEDICATIONS: [x] Continue your current home medications Start: [] Notify your pharmacy for refill(s) 7 days before you are out of your medication. [] Opioid (Narcotic) Agreement signed and patient received copy. [] Side Effects of Opioid Medications given to patient Resume blood thinner: NA Discontinue: DIET: [x] Resume normal diet [] See [facility] Post Discharge Procedure Information Sheet ACTIVITY: [x] Resume normal activity [] See [facility] Post Discharge Procedure Information Sheet REFERRALS: Physical Therapy [] [facility] ([phone]) [] [facility] ([employer]) [] [facility] ([phone]) Option 1 [] [facility] ([employer]) [] [facility] ([phone]) [] Other: Behavior Medicine [] Pain Psychologist, [facility] Pain Psychology Please call to schedule appointment [phone] or [phone] Diagnostic Test(s): May get Radiographs performed in Radiation/X-Ray 6th floor, [address]. EDUCATION provided on the following: [] Spinal Cord Stimulator Education and DVD. Vendor: FOLLOW UP APPOINTMENTS: [x] Return as needed [] Follow up appointment: We will contact you the next day to obtain: [] An update on your condition [] Your Pain diary scores [] Procedure at your next visit : INSTRUCTIONS before your next procedure: [] See [facility] Pre-Procedure Information Sheet [] Do not eat or drink for six (6) hours before the time/date of the procedure. [] Inquire with your prescribing provider if ok to hold blood thinner for ( ) days before procedure. [] Blood work required 2 hours before procedure: [] Length Control Tester needed for next procedure [] Pre Procedure instructions will be sent through Fuzz or by phone two working days prior to procedure. *Need help with Fuzz? Call [phone]. Patient provided information and repeated back with understanding. If you need to reach us: For any questions about your procedure, please call the Pain Management Center [phone] (M-F) (8am-4pm) If you need urgent attention after 5 pm and weekends: Call the [facility] Fresh Foods Cake Decorator at [phone] and ask for the Pain Service doctor supervisor steel division. INCT POLICE SERGEANT INCT POLICE SERGEANT INCT POLICE SERGEANT INCT POLICE SERGEANT documented in this encounter Medications at Time [...] or self care documented in this encounter Progress Notes * Toñito Rust, DO - 01/03/2024 10:30 AM CST Patient Name: Alona Kemp : 1970 Today's Date: 11/08/2023 PCP: Daja Kern MD Referring: Katrina Wilkes MD Chief Complaint Patient presents with Back Pain HPI HISTORICAL INFO: Alona Kemp is a 51 y.o. year old female referred by Daja Kern MD for consultation regarding evaluation and treatment recommendation for management of Her back pain. Patient was initially seen at the [facility] on 08/25/2022. Patient's Model Maker Apprentice, David from [facility] attended today's visit. She presents with low [...] include sitting, lying, heat, ice, and massage. Pain Assessment Pain Score: 7 Patient's Stated Pain Goal: 3 Pain Location: Back (Lumbar) Pain Radiating Towards: low back to left leg down to left foot Pain Descriptors: (throbbing, shooting, stabbing, cramping, hot-burning, aching, heavy, tender, tiring, sickening, fearful, punishing) Pain Frequency: Constant/continuous Pain Onset: Ongoing Her pain greatly interferes with ADL's. Will be moving into mother's home for assistance. Physical therapy: Years ago, did not help. Does not perform HEP. Past/ current meds: Baclofen- does not help Pregabalin- does not help Trazodone- helps with sleep Prior interventional therapies: Previous interventional injections with Dr. Marty Holcomb with [facility] 1-2 years ago She has history of following psychiatric disorder: anxiety and depression Substance abuse history Imagin09/10/2019 Lumbar Spine MRI LOWER THORACIC: There [...] and a bariatric surgery consult INTERVAL HISTORY (01/03/2024): Alona Kemp returns to clinic today. She presents for ongoing management of back pain and leg pain. Leg pain is worse than back pain, limits her standing and walking. She is accompanied by her inspector canned food reconditioning today. Patient notes she has back pain most of the time. Has pain into left leg when standing up which is radicular in nature. When she walks her back starts to hurt and notes both her legs get tired. States that both the back pain and legs feel tired. Notes that she gets a sensation of heaviness more so than leg pain. Notes that when she goes shopping has difficulty carrying groceries, notes she now uses a riding shopping cart but does note when she would use a regular shopping cart it would help fora minute to flex forward. Reports it was going to be over a year before she is seen by weight management so she did not schedule. 02/07/2023 12:19 PM 09/04/2023 10:00 AM 09/27/2023 10:00 AM 11/08/2023 2:03 PM 01/03/2024 11:17 AM MODIFIED OSWESTRY LOW BACK PAIN QUESTIONNAIRE Section 1 - Pain Intensity 4 - Pain medication provides me with little relief from pain 4 - Pain medication provides me with little relief from pain 3 - Pain medication provides me with moderate relief from pain 3 - Pain medication provides me with moderate relief from pain 3 - Pain medication provides me with moderate relief from pain Section 2 - Personal Care (e.g., washing, dressing) 3 - I need help, but I am able to manage most of my personal care 2 - It is painful to take care of myself, and I am slow and careful 2 - It is painful to take care of myself, and I am slow and careful 1 - I can take care of myself normally, but it increases my pain 1 - I can take care of myself normally, but it increases my pain Section 3 - Lifting 4 - I can lift only very light weights 5 - I cannot lift or carry anything at all 5 - I cannot lift or carry anything at all 4 - I can lift only very light weights 4 - I can lift only very light weights Section 4 - Walking 4 - I can walk only with crutches or a cane 4 - I can walk only with crutches or a cane 4 - I can walk only with crutches or a cane 4 - I can walk only with crutches or a cane 4 -I can walk only with crutches or a cane Section 5 - Sitting 2 - Pain prevents me from sitting for more than 1 hour 1 - I can sit in my favorite chair for as long as I like 1 - I can sit in my favorite chair for as long as I like 2 - Pain prevents me from sitting for more than 1 hour 2 - Pain prevents me from sitting for more than 1 hour Section 6 - Standing 4 - Pain prevents me from standing for more than 10 minutes 5 - Pain prevents me from standing at all 5 - Pain prevents me from standing at all 4 - Pain prevents me from standingfor more than 10 minutes 4 - Pain prevents me from standing for more than 10 minutes Section 7 - Sleeping 1 - I can sleep well only using pain medication 4 - Even when I take medication, I sleep less than 2 hours 1 - I can sleep well only using pain medication 2 - Even when I take medication, I sleep less than 6 hours 2 - Even when I take medication, I sleep less than 6 hours Section 8 - Social Life 4 - Pain has restricted my social life to my home 5 - I have hardly any social life because of pain 5 - I have hardly any social life because of pain 4 - Pain has restricted my social life to my home 3 - Pain prevents me from going out very often Section 9 - Traveling 1 - I can travel anywhere, but it increases my pain 4 - My pain restricts my travel to short necessary journeys under 1/2 hour 4 - My pain restricts my travel to short necessaryjourneys under 1/2 hour 5 - My pain prevents all travel except for visits to the physician/therapist or hospital 2 - My pain restricts my travel over 2 hours Section 10 - Employment/Homemaking 4 - Pain prevents me from doing even light duties 3 - Pain prevents me from doing anything but light duties 2 - I can perform most of my homemaking/job duties, but pain prevents me from performing more physically stressful activities (e.g., lifting, vacuuming) 4 -Pain prevents me from doing even light duties 3 - Pain prevents me from doing anything but light duties Modified Oswestry Low Back Pain Score 31 37 32 33 28 Percentage 62 74 64 66 56 Last visit we did the following: Intervention: 09/27/23 Bilateral L5-S1 TFESI provided 70% relief x 3 weeks then with gradual return to baseline pain she experienced significant improvement in function, for lumbar radiculopathy. Given the signs and symptoms consistent with sacroiliitis and positive symptoms upon provocative test including Srikanth finger/OFE/Gaenslen's/sacral distraction/thigh thrust/sacral compression, we will proceed with bilateral SI joint injection at future visit. Medication adjustments: We increased her gabapentin to 900 TID Today. Referrals: No referrals needed at this current time., Encourage weight loss, and I will refer the patient to physical therapy once pain is somewhat manageable; this will give the patient the best chance of continuing to do physical therapy and home exercise program in the future The patient treatment is significantly limited by social determinants of health, housing, insurancecoverage and transportation. She is taking gabapentin 900mg TID without side effects, though tizanidine causes drowsiness. She denies any side effects to current pain medications. Current Pain meds: Pain Medications Abilify Maintena 400 mg IM injection acetaminophen (TYLENOL) 500 mg tablet Take 2 tablets (1,000 mg total) by mouth every 6 (six) hours as needed for pain ARIPiprazole (ABILIFY) 10 mg tablet Take 1 tablet (10 mg total) by mouth daily DULoxetine DR (CYMBALTA) [address] (CYMBALTA) 60 mg capsule gabapentin (NEURONTIN) 300 mg capsule gabapentin (NEURONTIN) 600 mg tablet TAKE 1 & 1/2 TABLETS BY MOUTH THREE TIMES A DAY traZODone (DESYREL) 100 mg tablet TK 1 T PO HS tiZANidine (ZANAFLEX) 4 mg tablet TAKE 1 TABLET BY MOUTH TWICE A DAY Results: 09/20/23 Lumbar Spine MRI INDIVIDUAL DISC LEVELS: L1-2: No diffuse disc bulge or focal herniation. Bilateral hypertrophic facet arthropathy. No spinal canal stenosis. No neural foraminal stenosis. L2-3: No diffuse disc bulge or focal herniation. Bilateral hypertrophic facet arthropathy. No spinal canal stenosis. No neural foraminal stenosis. L3-4: No diffuse disc bulge or focal herniation. Bilateral hypertrophic facet arthropathy. No spinal canal stenosis. No neural foraminal stenosis. L4-5: No diffuse disc bulge or focal herniation. Bilateral hypertrophic facet arthropathy. No spinal canal stenosis. No neural foraminal stenosis. L5-S1: Uncovering of the intervertebral disc, posterior osteophytosis, and annular disc bulge. Bilateral hypertrophic facet arthropathy. No spinal canal stenosis, noting epidural lipomatosis narrows the residual thecal sac at this level. Severe bilateral neural foraminal stenosis, noting combination of inferior pedicular surface, osteophytosis/disc, and arthropathic facet contact with exiting bilateral L5 nerve roots. SACRUM: Visualized upper sacrum intact. VISUALIZED UPPER ABDOMEN: Partial incidental visualization of posterior right hepatic lobe cyst better evaluated on prior abdominopelvic CT imaging. OTHER: No other significant findings. IMPRESSION: Constellation of spondylolisthesis, spondylolysis, spondylosis, degenerative disc disease, and a component of epidural lipomatosis of the lumbar spine as detailed level by level above, maximal at L5-S1. Physical Exam Vitals: 01/03/24 1105 BP: 118/71 Pulse: 91 Resp: 16 Temp: 98.4 ??F (36.9 ??C) SpO2: 94% Comment: Room air Weight: 125.6 kg (277 lb) Height: 157.5 cm (5' 2 ) Body mass index is 50.66 kg/m??. Physical Exam GENERAL: Well-developed and well nourished. PSYCHOLOGICAL: Alert and oriented. Cooperative, normal stated mood, congruent affect. HENT: Normocephalic, atraumatic. Hearing adequate for conversation. EYES: Non-icteric sclera. ABDOMEN: Non-distended RESPIRATORY: Non-labored breathing. No audible cough or wheeze. CARDIOVASCULAR: No edema. Bilateral lower extremities are warm and well perfused. SKIN: No rashes or open wounds noted NEUROLOGIC: Sensation: Intact to light touch to bilateral UE and LE, except 4/5 bilateral hip flexors. Strength: 5/5 bilateral lower and upper extremities Gait: wheelchair today Spine Lumbar/Pelvis Limited ROM with extension. Flexion slightly limited and feels a pull to posterior thights when ranging. Palpation: Tenderness along bilateral paraspinal Special Tests: SLR on left equivocal today. Pain did appear to travel laterally and into the top of her ankle but not into foot. Assessment The above note documents my personal evaluation of this patient. In addition, I have reviewed and confirmed with the patient and nurse the supportive information documented in today's scanned PatientHealth Questionnaire and Office Note. Encounter Diagnoses Name Primary? Spondylolisthesis at L5-S1 level Yes Spinal stenosis of lumbar region with neurogenic claudication Axial low back pain with neurogenic claudication. Grade 2 spondylolisthesis at L5-S1. Plan: 1. Interventions: Not a good candidate for vertiflex given spondylolisthesis and canal stenosis is at L5-S1 2. Medications: No changes at this time 3. Imaging/Diagnostic/Labs: Ordered Flex/Ex imaging of lumbar spine today. 4. Referral/Referral notes: We will refer the patient to physical therapy for evaluation and treatment as well as a home exercise program. Will discuss potential options for endoscopic surgery. 5. Follow-up: As needed pending establishing with neurosurgery Toñito Rust DO PGY3 PM&R Resident Division of Physical Medicine and Rehabilitation [facility] [employer] Cosigned by Katrina Wilkes MD at 01/08/2024 4:05 PM PRECINCT POLICE SERGEANT INCT POLICE SERGEANT Associated attestation - Katrina Wilkes MD - 01/08/2024 4:05 PM PRECINCT POLICE SERGEANT I have seen and examined the patient. I agree with the findings and plan of care as documented in the resident/fellow's note. Patient has a complex condition requiring ongoing longitudinal care. documented in this encounter Nursing Notes * Nathaly Ferrer RN - 01/03/2024 10:30 AM CST Level 3 Escorted patient to exam room. Obtained vital signs. Reviewed patient's allergies and current medications. Obtained and verified patient's detailed medical/surgical history. Confirmed the reason for visit with the patient. Obtained the following screening assessments: [x] Modified Oswestry Low Back Pain Questionnaire [] PMC Intake Questionnaire [x] PMC Follow up Questionnaire [] Fall Risk Assessment (Cee, Jeannine Rueda, Pete) [] Depression/Anxiety Assessment (GAD7, PHQ-9, Dorsey Suicide, Garsia Depression) [] Disability Scale [] CAGE [] SOAPP-R Additional tasks included: [] Random medication adherence check (pill verification by two nurses) [] Work/school note written [] Wound/skin check/dressing change [] Pain assessment for more than one site [] Coordination of a specialty referral or imaging study (stat MRI for same day) [] Anticoagulant therapy coordination on day of visit [] Monitoring or assistance in patient physical exam or assessment [x] Discharge instructions Vital Signs Temp: 98.4 ??F (36.9 ??C) Pulse: 91 Resp: 16 BP: 118/71 SpO2: 94 % (Room air) Post-visit transport confirmed with the patient. Total time spent for patient care, education, and care coordination was approximately 21-30 minutes. INCT POLICE SERGEANT documented in this encounter Plan of Treatment [...] as needed documented as of this encounter Results * XR Spine Lumbar Ap Lat Flex Ext min 4 Views (01/03/2024 12:47 PM PRECINCT POLICE SERGEANT) Anatomical Region Laterality Modality L-spine N/A Computed Radiogr aphy 01/03/2024 12:5 0 PM PRECINCT POLICE SERGEANT Impressions 01/03/2024 12:50 PM PRECINCT POLICE SERGEANT 1. ??Severe L5-S1 spondylosis with grade 2 spondylolytic spondylolisthesis Electronically signed by: Shikha Barnes MD Narrative 01/03/2024 12:50 PM PRECINCT POLICE SERGEANT EXAMINATION: XR SPINE LUMBAR AP LAT FLEX [...] by: Shikha Barnes MD Toñito Rust DO [facility] XR PROCEDURES Final Result documented in this encounter Visit Diagnoses Diagnosis Spondylolisthesis at L5-S1 level- Primary Spinal stenosis of lumbar region with neurogenic claudication Spondylolisthesis at L5-S1 level documented in this encounter Historical Medications * This list may reflect changes made after this encounter. gabapentin (NEURONTIN) 300 mg capsule 01/01/[address] (CYMBALTA) 30 mg capsule 01/01/2024 OneTouch Delica Plus Lancet 30 gauge misc 12/26/2023 chlorhexidine (PERIDEX) 0.12 % oral rinse SWISH 15 ML AFTER BRUSHING TEETH. REPEAT TWICE DAILY UNTIL SYMPTOMS RESOLVE USE FOR 25 DAYS THEN DISCARD REMAINDER OneTouch Verio test strips strip 12/26/2023 added in this encounter Care Teams Wet Process Miller Head Relationship Specialty Start Date End Date Daja Kern MD [address] [place] [address] PCP - General 09/10/19 documented as of this encounter
--- OUTSIDE RECORDS SUMMARY | 2024-03-03 19:37 | XMS_ITS | Encounter Summary ---
Author Organization [facility] Healthcare Address [address] [place] [address] Care Team Providers Care Corn Cooker Name Role Phone Daja Kern MD Primary Care Provider [phone] Reason for Visit * Reason Comments PT Treatment * Consultation (Routine) - Authorized Specialty Diagnoses / Procedures Referred By Contac t Referred To Contact Physical Therapy Diagnoses Lumbar radiculopathy Deconditioned low back Ander Jules, ADITYA [address] 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 Lumbar radiculopathy 2. Deconditioned low back Ander Jules, ADITYA [address] [place] [address] Subjective: Alona reports continued pain in her low back and left hip. She reports that she has not been using her cane the past couple of days. Pain: 4-07/06 Objective: Treatment Provided: Moist heat to low back Manual stretching to low back LTR Bridges SLR Hip adduction with ball squeeze Hip abduction with blue T-band Standing heel raises Hip abduction Marching Access Code: [email or web address] URL: [email or web address] Date: 12/18/2023 Prepared by: Alvarado Limon Exercises [...] 15 reps Assessment: Tolerated treatment fairly well. Patient was too fatigued to add exercise bike on this date. Plan: Plan to continue as tolerated. Start Time: 1258 End Time: 1328 Alvarado Limon PT documented in this encounter Plan of Treatment [...] back documented in this encounter Care Teams Corn Cooker Relationship Specialty Start Date End Date Daja Kern MD [address] [place] [address] PCP - General 09/10/19 documented as of this encounter
--- OUTSIDE RECORDS SUMMARY | 2024-03-03 19:37 | XMS_ITS | Encounter Summary ---
Author Organization [facility] Healthcare Address [address] [place] [address] Care Team Providers Care Manager Banquet Name Role Phone Daja Kern MD Primary Care Provider Encounter Details Date Type Department Care Team (Late st Contact Info) Description 12/04/2023 Plan of Care Documentation [facility] [place] [address] Social History Tobacco Use Types Packs/Day Years [...] on file Legal Sex Female 6:59 AM SULPHATE TESTER Gender Identity Not on file Sexual Orientation [...] on filedocumented in this encounter Care Teams Manager Banquet Relationship Specialty Start Date End Date Daja Kern MD [address] [place] [address] PCP - General 09/10/19 documented as of this encounter
--- OUTSIDE RECORDS SUMMARY | 2024-03-03 19:37 | XMS_ITS | Encounter Summary ---
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 Gender Identity Not on file Sexual Orientation Not on file documented as of this encounter Medications at Time of Discharge Fahad Maintena 400 mg IM injection 02/10/2023 albuterol HFA (PROVENTIL HFA,VENTOLIN HFA,PROAIR HFA) 90 mcg/actuation inhaler Inhale 2 puffs every 6 (six) hours as needed 02/10/2022 benztropine (COGENTIN) 0.5 mg tablet 08/22/[address] (CYMBALTA) 60 mg capsule 10/17/2022 fluticasone propionate (FLONASE) 50 mcg/actuation nasal spray 2 sprays daily As needed 10/17/2022 irbesartan (AVAPRO) 150 mg tablet Take 1 [...] (NEURONTIN) 600 mg tabletIndications:Era mbar radiculopathy Take 1 tablet (600 mg total) by mouth 3 (three) times a day 90 capsule 3 05/03/2023 4 metoprolol XL (TOPROL-XL) 25 mg extended release tablet 2 tablets (50 mg total) daily 08/22/2022 4 nitrofurantoin monohydrate (MACROBID) 100 mg capsule Take 1 capsule (100 mg total) by mouth 2 (two) times a day 14 capsule 12/20/2022 4 tiZANidine (ZANAFLEX) 4 mg tablet Take 1 tablet (4 mg total) by mouth 2 (two) times a day 60 tablet 2 05/08/2023 4 documented as of this encounter Discharge [...] on filedocumented in this encounter Care Teams Sales Service Coordinator Relationship Specialty Start Date End Date Daja Kern MD [address] [place] [address] PCP - General 09/10/19 documented as of this encounter
--- OUTSIDE RECORDS SUMMARY | 2024-03-03 19:37 | XMS_ITS | Encounter Summary ---
Author Organization [facility] Healthcare Address [address] [place] [address] Care Team Providers Care Experimental Mechanic Name Role Phone Daja Kern MD Primary Care Provider [phone] Reason for Visit * Reason Onset Date Comments spk w/nurse 08/08/2023 Encounter Details Date Type Department Care Team (Late st Contact Info) Description 08/08/2023 Telephone [facility] [address] [facility] [address] [place] [address] Katrina Wilkes MD [address] [place] [address] spk w/nurse Social History Tobacco Use Types Packs/Day Years [...] on file Legal Sex Female 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 Informed on-call physician's response. *pt verbalized understanding *Changed appt to FU w/ Dr. Wilkes. *Offered earlier appt date and time w/ Dr. Wilkes; pt refused and would like to keep 7.24 appt dateand time for transportation purposes. * Telephone Encounter - Joy Malik RN - 08/08/2023 4:[address] Wilkes pt. *Spoke extensively w/ pt. Pt concerned w/ increasing episodes of her left leg giving out. *Pt c/o increased weakness and pain in B/L legs; left worse than right. *radiates from left hip down to left foot *described as nerve pain, dull, aching, sharp, & tingling *pt taking 600mg gabapentin TID; pt states not helpful at all *heating pad helpful *PT helpful in the past; injections not helpful *home exercises becoming increasing more difficult d/t increased pain Pt requesting new MRI and PT orders *Pt has FU scheduled for 7824 w/ Dr. Mendez. *Advised pt to cont utilizing cane for stable mobility *Advised pt if symptom worsen or become unbearable to visit urgent care or ED\ Dr. Ramon, please advise. Thank you! documented in this encounter Plan of Treatment [...] on filedocumented in this encounter Care Teams Experimental Mechanic Relationship Specialty Start Date End Date Daja Kern MD [address] [place] [address] PCP - General 09/10/19 documented as of this encounter
--- OUTSIDE RECORDS SUMMARY | 2024-03-03 19:37 | XMS_ITS | Encounter Summary ---
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 * Telephone Encounter - Amado Orourke - 11/20/2023 10:10 AM CDT DIRECT REFERRAL FOR DR Enciso PLEASE REVIEW THANKS * Telephone Encounter - Amado Orourke - 11/20/2023 10:03 AM CDT Department of Neurological Surgery at [facility] Spine Intake 11/20/23 Alona Tavarezter 1970 [id number] Daja Kern MD Are you a New or Returning Pt? new Referring physician Referred to: Dr. Enciso Second Opinion: No Insurance: [employer] [facility] Send Letter to PCP for Insurance Auth: Yes Litigation: the act, process, or practice of settling a dispute in a court of law. No Has the patient had spinal surgery within the last year? No Diagnosis: M54.16 (ICD-10-CM) - Lumbar radiculopathy M48.062 (ICD-10-CM) - Spinal stenosis of lumbar region with neurogenic claudication Location (Spinal Area): Lumbar Imaging Done within Last Year: Yes List ALL MRI: Month 2023 Imaging Location: [facility] FAX Records Requested: In [facility] HT: 5 FT 2 WT: 285 BMI: 51 Weakness: Yes Numbness: Yes Spinal Pain: lower back and both leg(s) Loss of bowel or bladder control: No Duration of symptoms: 5 YEARS Spine surgery - within last 10 years: No Location: FAX Records Requested: Physical therapy within last year No Location: FAX Records Requested: Pain Management (Injections) within last year Yes Location: [facility] FAX Records Requested: In [facility] Are you a current smoker on nicotine: No Reason for visit: New Pt Appt Date: Time: Location: Provider Routed: MD Review: Sent for Review by clinical team Remind pt to arrive 45 min early for xrays: Yes Patient Informed about possible wait time to be seen by Providers: Yes ???Please expect your total visit time to be approximately 2-4 hours for a new patient visit or surgical consultation. This time will involve x-ray imaging, processing, interpretation, evaluation by Providers team, and consultation with Doctor. Please expect that during this time you may be waitingin between x-rays, evaluation by Provider's team, and consultation with Doctor. This wait time is necessary for a thorough review, analysis, and interpretation of your clinical history, radiological studies, current condition, and formulation of a clinical plan. We ask for your patience and know that while you are waiting, your care is being actively planned?? * Telephone Encounter - Johana Navas - 11/16/2023 3:46 PM CDT 2nd attempt - no answer, unable to LVM * Telephone Encounter - Johana Navas - 11/13/2023 8:59 AM CDT 1st attempt - patient asked for a call back documented in this encounter Plan of Treatment [...] on filedocumented in this encounter Care Teams Internet Sourcer Relationship Specialty Start Date End Date Daja Kern MD [address] [place] [id number] PCP - General 09/10/19 documented as of this encounter
--- OUTSIDE RECORDS SUMMARY | 2024-03-03 19:37 | XMS_ITS | Encounter Summary ---
Author Organization [facility] Healthcare Address [address] [place] [address] Care Team Providers Care Blogs Manager Name Role Phone Daja Kern MD Primary Care Provider [phone] Reason for Visit * Reason Comments PT Treatment * Consultation (Routine) - Authorized Specialty Diagnoses / Procedures Referred By Contac t Referred To Contact Physical Therapy Diagnoses Lumbar radiculopathy Deconditioned low back Ander Jules, ADITYA [address] [facility] [address] [place] [address] Phone: tel: fax: [facility] Physical [place] [address] Phone: tel: fax: Referral ID Status Reason Start Date Expiration Date Visits Requested Visits Authorized [id number] Authorized Evaluate and Treat 11/08/2023 12/07/2024 24 13 Encounter Details Date Type Department Care Team (Late st Contact Info) Description 01/04/2024 1:00 PM LOGISTICS DIRECTOR Therapy [facility] [place] [address] Alvarado Limon, PT Lumbar radiculopathy (Primary Dx); [...] on file Legal Sex Female 6:59 AM 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 Lumbar radiculopathy 2. Deconditioned low back Ander Jules, ADITYA [address] [place] [address] Subjective: Alona reports continued pain in her low back and left hip. Pain: 4-5/10 Objective: Treatment Provided: Moist heat to low back Manual stretching to low back LTR Bridges SLR Hip adduction with ball squeeze Hip abduction with blue T-band Standing heel raises Hip abduction Marching Access Code: [email or web address] URL: [email or web address] Date: 12/18/2023 Prepared by: Alvarado Limon Exercises [...] as tolerated. Start Time: 1258 End Time: 1330 Alvarado Limon PT STICS DIRECTOR documented in this encounter Plan of Treatment [...] back documented in this encounter Care Teams Blogs Manager Relationship Specialty Start Date End Date Daja Kern MD [address] [place] [address] PCP - General 09/10/19 documented as of this encounter
--- OUTSIDE RECORDS SUMMARY | 2024-03-03 19:37 | XMS_ITS | Encounter Summary ---
Author Organization [facility] Address [address] [place] [address] Care Team Providers Care Top Lift And Automatic Window Repairer Name Role Phone Daja Kern MD Primary Care Provider [phone] Reason for Referral * Consultation (Routine) - Closed Specialty Diagnoses / Procedures Referred By Contac t Referred To Contact Neurosurgery Diagnoses Lumbar radiculopathy Spinal stenosis of lumbar region with neurogenic claudication Ander Jules NP [address] [place] [address] Phone: tel: fax: Imtiaz Enciso MD PhD [address] [place] [address] Phone: tel: fax: Referral ID Status Reason Start Date Expiration Date V isits Requested Visits Authorized [id number] Closed Specialty Services Required 11/10/2023 12/09/2024 1 1 Question Answer Please select the performing region: [facility] (All Locations) [167] To provider: IMTIAZ ENCISO [[id number]] # of visits: [address] Katrina Wilkes is referring this patient for consideration of endoscopic surgery. I have place an referral to weight management. L5-S1: Uncovering of the intervertebral disc, posterior osteophytosis, and annular disc bulge. Bilateral hypertrophic facet arthropathy. No spinal canal stenosis, noting epidural lipomatosis narrows the residual thecal sac at this level. Severe bilateral neural foraminal stenosis, noting combination of inferior pedicular surface, osteophytosis/disc, and arthropathic facet contact with exiting bilateral L5 nerve roots. * Consultation (Routine) - Authorized Specialty Diagnoses / Procedures Referred By Ladi aguilar Referred To Contact Physical Therapy Diagnoses Lumbar radiculopathy Deconditioned low back Ander Jules NP [address] [place] [address] Phone: tel: fax: [facility] [place] [address] Phone: tel: fax: Referral ID Status Reason Start Date Expiration Date Visits Requested Visits Authorized [id number] Authorized Evaluate and Treat 11/08/2023 12/07/2024 24 13 Question Answer PTRFR PT Evaluate and Treat Therapy options discussed with patient? Yes Location provided for therapy services is: Patient requested/Patient preferred Please select the performing region: [facility] [[id number]] Please select the performing department: [facility] OP PT [[id number]] # of visits: 24 * Consultation (Routine) - Closed Specialty Diagnoses / Procedures Referred By Ladi aguilar Referred To Contact Weight Management Diagnoses BMI 50.0-59.9, adult (HCC) Ander Jules NP [address] [place] [address] Phone: tel: fax: [facility] (All Locations) Referral ID Status Reason Start Date Expiration Date V isits Requested Visits Authorized [id number] Closed Specialty Services Required 11/08/2023 12/07/2024 1 1 Question Answer Please select the performing region: [facility] (All Locations) [167] # of visits: 1 Reason for Visit * Reason Comments Back Pain Low back down left l eg Encounter Details Date Type Department Care Team (Latest Contact Info) Description 11/08/2023 1:45 PM CDT - 11/08/2023 11:59 PM CDT Hospital Encounter [facility] [address] [facility] [place] [facility] [address] [place] [address] Ander Jules NP [address] [place] [address] BMI 50.0-59.9, adult (HCC) (Primary Dx); Lumbar radiculopathy; Deconditioned low back; Spinal stenosis of lumbar region with neurogenic [...] on file Legal Sex Female 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 Gender Identity Not on file Sexual Orientation Not on file documented as of this encounter Last Filed Vital Signs Vital Sign Reading Time Taken Comments Blood Pressure 157/80 11/08/2023 1:59 PM CDT Pulse 99 11/08/2023 1:59 PM CDT Temperature 36.7 ??C (98 ??F) 11/08/2023 1:59 PM CDT Respiratory Rate 10 11/08/2023 1:59 PM CDT Oxygen Saturation 95% 11/08/2023 1:59 PM CDT Inhaled Oxygen Concentration - - Weight 127 kg (280 lb) 11/08/2023 1:59 PM CDT Height 157.5 cm (5' 2 ) 11/08/2023 1:59 PM CDT Body Mass Index 51.21 11/08/2023 1:59 PM CDT documented in this encounter Discharge Instructions * Patient Instructions* Candy Goff RN - 11/08/2023 2:00 PM CDT [facility] ([facility]) DISCHARGE INSTRUCTIONS MEDICATIONS: [x] Continue your current home medications Start: [x] Notify your pharmacy for refill(s) 7 days before you are out of your medication. [] Opioid (Narcotic) Agreement signed and patient received copy. [] Side Effects of Opioid Medications given to patient Resume blood thinner: On Discontinue: PROCEDURE at today's visit: follow up with ADITYA Mcdaniel DIET: [x] Resume normal diet ACTIVITY: [x] Resume normal activity REFERRALS: weight management Physical Therapy @ [facility] EDUCATION provided on the following: [] Spinal Cord Stimulator Education and DVD. Vendor: FOLLOW UP APPOINTMENTS: [x] Follow up appointment: 3 months *Need help with MyChart? Call [phone]. Patient provided information and repeated back with understanding. If you need to reach us: For any questions about your procedure, please call the Pain Management Center [phone] (M-F) (8am-4pm) If you need urgent attention after 5 pm and weekends: Call the [facility] Service Attendant Cafeteria at [phone] and ask for the Pain Service doctor television antenna installer. documented in this encounter Medications at Time [...] triamterene-hydroCHL OROthiazide 37.5-25 mg per tablet 03/06/2023 tiZANidine (ZANAFLEX) 4 mg tablet Take 1 tablet (4 mg total) by mouth 2 (two) times a day 60 tablet 2 08/21/2023 4 documented as of this encounter Discharge Disposition Disposition Code Departure Means Destination Discharge to home or self care documented in this encounter Progress Notes * Ander Jules NP - 11/08/2023 2:00 PM CDT Patient Name: Alona Kemp : 1970 Today's Date: 11/08/2023 PCP: Daja Kern MD Referring: Andre Jules, * Chief Complaint Patient presents with Back Pain Low back down left leg HPI HISTORICAL INFO: Alona Kemp is a 51 y.o. year old female referred by Daja Kern MD for consultation regarding evaluation and treatment recommendation for management of Her back pain. Patient was initially seen at the [facility] on 08/25/2022. Patient's Metals Analyst, David from [facility] attended today's visit. She presents with low [...] interventional injections with Dr. Marty Holcomb with [facility] 1-2 years ago She [...] and a bariatric surgery consult INTERVAL HISTORY (11/08/2023): Alona Kemp returns to clinic today. She presents for ongoing management of back pain and leg pain. Leg pain is worse than back pain, limits her standing and walking. She is accompanied by her emergency department director today. 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 States she usually avoids socializing due to her pain. She currently lives with her parents and has a goal to improve her function so she can move into a place of her own. Has not seen physical therapy. Discussed aqua therapy, states transportation and the cost of a health club membership is financially difficult. Started bariatric surgical evaluation and process. HgbA1c 6.9% on 05/01/23. Pain is at back L > R. Radiation: buttocks and bilateral legs L > R laterally to knee then anterior to top of feet Numbness: left calf- burning pain Weakness: bilateral legs L > R- feels like they will give out Bowel/Bladder incontinence: denies Pain Assessment Pain Score: 5 - Moderate pain Patient's Stated Pain Goal: 1 Pain Location: Back (Lumbar) Pain Radiating Towards: left leg Pain Descriptors: Aching, Radiating, Sharp, Tightness, Burning, Shooting, Throbbing, Discomfort Pain Frequency: With movement/cough Pain Onset: Ongoing 02/07/2023 12:19 PM 09/04/2023 10:00 AM 09/27/2023 10:00 AM 11/08/2023 2:03 PM MODIFIED OSWESTRY LOW BACK PAIN QUESTIONNAIRE Section [...] me from standingfor more than 10 minutes Section 7 - [...] restricted my social life to my home Section 9 - Traveling 1 - I can travel anywhere, but it increases my pain 4 - My pain restricts my travel to short necessary journeys under 1/2 hour 4 - My pain restricts my travel to short necessaryjourneys under 1/2 hour 5 - My pain prevents all travel except for visits to the physician/therapist or hospital Section 10 - Employment/Homemaking 4 - Pain prevents me from doing even light duties 3 - Pain prevents me from doing anything but light duties 2 - I can perform most of my homemaking/job duties, but pain prevents me from performing more physically stressful activities (e.g., lifting, vacuuming) 4 -Pain prevents me from doing even light duties Modified Oswestry Low Back Pain Score 31 37 32 33 Percentage 62 74 64 66 Last visit we did the following: Intervention: [...] total) by mouth daily DULoxetine DR (CYMBALTA) 60 mg capsule gabapentin (NEURONTIN) 600 mg tablet TAKE 1 & 1/2 TABLETS BY MOUTH THREE TIMES A DAY tiZANidine (ZANAFLEX) 4 mg tablet Take 1 tablet (4 mg total) by mouth 2 (two) times a day traZODone (DESYREL) 100 mg tablet TK 1 T PO HS Results: 09/20/23 Lumbar Spine MRI INDIVIDUAL DISC [...] above, maximal at L5-S1. Physical Exam Vitals: 11/08/23 1359 BP: 157/80 Pulse: 99 Resp: 10 Temp: 98 ??F (36.7 ??C) SpO2: 95% Weight: 127 kg (280 lb) Height: 157.5 cm (5' 2 ) Body mass index is 51.21 kg/m??. Physical Exam GENERAL: Well-developed and well [...] upper extremities Gait: wheelchair today Spine Lumbar/Pelvis Palpation: Tenderness along bilateral paraspinal Special Tests: SLR positive bilaterally Reflexes Upper Extremity: Morales's: negative bilaterally Assessment The above note documents my personal evaluation of this patient. In addition, I have reviewed and confirmed with the patient and nurse the supportive information documented in today's scanned PatientHealth Questionnaire and Office Note. Encounter Diagnoses Name Primary? BMI 50.0-59.9, adult (HCC) Yes Lumbar radiculopathy Deconditioned low back Plan: 1. Interventions: No intervention at this time . May consider Vertiflex in the future. Patient willcome back to see Dr. Wilkes to discuss the procedure. 2. Medications: no changes at this time 3. Imaging/Diagnostic/Labs: Reviewed imaging today with patient. No further imaging needed at this current time. 4. Referral/Referral notes: We will refer the patient to physical therapy for evaluation and treatment as well as a home exercise program. Referral placed to Neurosurgery for consideration of endoscopic surgery. Referral placed to weight management for BMI 51.21 5. Follow-up: with Dr. Wilkes to discuss Vertiflex with patient Ander Jorge A AGNP-C Assessment and plan of care reviewed with Dr. Wilkes. Addendum: Called patient to discuss follow up plan. Patient verbalized understanding and eager to see Dr. Wilkes to discuss possible Vertiflex procedure. Patient aware referral placed to NSGY. Cosigned by Katrina Wilkes MD at 12/01/2023 3:50 PM CDT * Candy Goff, RN - 11/08/2023 2:00 PM CDT Level 3 Escorted patient to exam room. Obtained vital signs. Reviewed patient's allergies and current medications. Obtained and verified patient's detailed medical/surgical history. Confirmed the reason for visit with the patient. Obtained the following screening assessments: [x] Modified Oswestry Low Back Pain Questionnaire [] PMC Intake Questionnaire [x] PMC Follow up Questionnaire [] Fall Risk Assessment (Cee, Pete Grey) [] Depression/Anxiety Assessment (GAD7, PHQ-9, Mead Suicide, Garsia Depression) [] Disability Scale [] CAGE [] SOAPP-R Additional tasks included: [] Random medication adherence check (pill verification by two nurses) [] Work/school note written [] Wound/skin check/dressing change [x] Pain assessment for more than one site [] Coordination of a specialty referral or imaging study (stat MRI for same day) [] Anticoagulant therapy coordination on day of visit [] Monitoring or assistance in patient physical exam or assessment [x] Education on referrals to PT and weight management Vital Signs Temp: 98 ??F (36.7 ??C) Pulse: 99 Resp: 10 BP: 157/80 SpO2: 95 % Post-visit transport confirmed with the patient. Total time spent for patient care, education, and care coordination was approximately 21-30 minutes. documented in this encounter Plan of Treatment Scheduled Referrals Name Type Priority Associated Diagnoses Orde r Schedule Ambulatory referral to Weight Management Outpatient Referral Routine BMI 50.0-59.9, adult (HCC) Expected: 11/22/2023 (Approximate), Expires: 11/07/2024 Ambulatory referral order to Physical Therapy - Outpatient Referral Routine Lumbar radiculopathy Deconditioned low back Expected: 11/22/2023 (Approximate), Expires: 11/07/2024 Ambulatory referral to Neurosurgery Outpatient Referral Routine Lumbar radiculopathy Spinal stenosis of lumbar region with neurogenic claudication Expected: 11/24/2023 (Approximate), Expires: 11/09/2024 documented as of this encounter Goals Goal [...] as of this encounter Visit Diagnoses Diagnosis BMI 50.0-59.9, adult (HCC)- Primary Lumbar radiculopathy Thoracic or lumbosacral neuritis or radiculitis, unspecified Deconditioned low back Spinal stenosis of lumbar region with neurogenic claudication documented in this encounter Discontinued Medications Medication Sig Discontinue Reason Start Date End Da te metoprolol XL (TOPROL-XL) 25 mg extended release tablet 2 tablets (50 mg total) daily Alternate therapy 08/22/2022 11/08/2023 documented as of this encounter Historical Medications * This list may reflect changes made after this encounter. Medication Sig Dispense Quantity Refills Last Filled Start D ate End Date irbesartan (AVAPRO) 300 mg tablet 10/24/2023 metoprolol XL (TOPROL-XL) 50 mg extended release tablet 10/24/2023 added in this encounter Care Teams Top Lift And Automatic Window Repairer Relationship Specialty Start Date End Date Daja Kern MD [address] [place] [address] PCP - General 09/10/19 documented as of this encounter
--- OUTSIDE RECORDS SUMMARY | 2024-03-03 19:37 | XMS_ITS | Encounter Summary ---
Author Organization [facility] Address [address] [place] [address] Care Team Providers Care Curling Machine Operator Name Role Phone Daja Kern MD Primary Care Provider [phone] Reason for Visit * Reason Comments PT Treatment * Consultation (Routine) - Authorized Specialty Diagnoses / Procedures Referred By Contac t Referred To Contact Physical Therapy Diagnoses Lumbar radiculopathy Deconditioned low back Ander Jules, ADITYA [address] [facility] [address] [place] [address] Phone: tel: fax: [facility] [place] [address] Phone: tel: fax: Referral ID Status Reason Start Date Expiration Date Visits Requested Visits Authorized [id number] Authorized Evaluate and Treat 11/08/2023 12/07/2024 24 13 Encounter Details Date Type Department Care Team (Late st Contact Info) Description 12/20/2023 1:00 PM CDT Therapy [facility] [place] [address] Alvarado Limon, PT Lumbar radiculopathy (Primary Dx); [...] on file Legal Sex Female 6:59 AM DIRECTOR INBOUND SALES Gender Identity Not on file Sexual Orientation Not on file documented as of this encounter Progress Notes * Alvarado Limon, PT - 12/20/2023 1:00 PM CDT Physical Therapy Visit 12/20/23 Alona Tsai Managed Services Sales Consultant 1970, female [id number] Diagnosis Plan 1. Lumbar radiculopathy 2. Deconditioned low back Ander Jules, ADITYA [address] [place] [address] Subjective: Alona reports continued pain in her low back and left hip. She reports that she has not been using her cane the past couple of days. Pain: 4-07/06 Objective: Treatment Provided: Moist heat to low back Manual stretching to low back LTR Bridges SLR Hip adduction with ball squeeze Hip abduction with blue T-band Standing heel raises Hip abduction Marching Access Code: [email or web address] URL: [email or web address] Date: 12/18/2023 Prepared by: Alvarado Limon Exercises [...] Plan to continue as tolerated. Start Time: 1253 End Time: 1321 Alvarado Limon PT documented in this encounter [...] back documented in this encounter Care Teams Curling Machine Operator Relationship Specialty Start Date End Date Daja Kern MD [address] [place] [address] PCP - General 09/10/19 documented as of this encounter
--- OUTSIDE RECORDS SUMMARY | 2024-03-03 19:37 | XMS_ITS | Encounter Summary ---
Author Organization [facility] Healthcare Address [address] [place] [address] Care Team Providers Care Critical Care Specialist Name Role Phone Daja Kern MD Primary Care Provider [phone] Reason for Visit * Reason Comments Suicidal Ideation Encounter Details Date Type Department Care Team (Late st Contact Info) Description 12/26/2023 5:23 AM CDT - 12/26/2023 3:47 PM CDT Emergency [facility] Emergency Department [address] [place] [address] Ilya Mesa MD [address] [facility] [place] [address] Bipolar affective disorder, current episode depressed, current episode severity unspecified (HCC) (Primary Dx); Acute cystitis without hematuria Discharge Disposition: Discharge to psych hospital or psych unit Social History Tobacco Use Types Packs/Day Years [...] on file 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 Gender Identity Not on file Sexual Orientation Not on file documented as of this encounter Last Filed Vital Signs Vital Sign Reading Time Taken Comments Blood Pressure 146/71 12/26/2023 11:45 AM CDT Pulse 86 12/26/2023 2:30 PM CDT Temperature 35.6 ??C (96 ??F) 12/26/2023 5:24 AM CDT Respiratory Rate 20 12/26/2023 6:21 AM CDT Oxygen Saturation 95% 12/26/2023 2:30 PM CDT Inhaled Oxygen Concentration - - Weight 129.3 kg (285 lb) 12/26/2023 5:24 AM CDT Height 157 cm (5' 1.81 ) 12/26/2023 5:24 AM CDT Body Mass Index 52.45 12/26/2023 5:24 AM CDT documented in this encounter Medications [...] Discharge Disposition Disposition Code Departure Means Destination Comment s Discharge to psych hospital or psych unit [facility] documented in this encounter Consult Notes * Alexander Garrett, NEPHROLOGIST - 12/26/2023 7:43 AM CDTAssociated Order(s): CONSULT TO BEHAVIORAL HEALTH [facility] Behavioral Health [facility] Services ([facility]) [facility] Initial Assessment Date: 12/26/23 Assessment Start time: 756 Assessment End time: 819 Patient Name: Alona Kemp Preferred Name: Alona Preferred Pronouns: she/her/hers Legal Status: Patient is own legal guardian. Date of : 1970 Information Source: Patient Chief Complaint: Suicidal Ideation [facility] consultation was requested by Ilya Mesa MD for SI . Presenting Problem:Patient is being seen due to her report of suicidal ideations with intention andplan. Zena been so depressed over the past week. History of Present Illness/Summary Patient arrived to the ED via EMS. Alona Kemp is a 53 y.o. single White female who is Alert and oriented x4. Patient has a past psychiatric history of depression and bipolar. Patient reports compliance with her psychotropic medications. Patient presents as tearful as she shared with this [facility], I've just been so depressed this past week. I can't do this anymore. Patient stated that her medical condition has played a role in her depressed mood. Patient admits to suicidal thoughts with current plan to overdose on medication. Patient denies homicidal thoughts. Patient denies paranoia. Patient denies delusions. Patient denies hallucinations. Patient denies alcohol use. UDS positive for cocaine There is no petition/certificate related to this encounter to review for patient at [facility]. Recommendations: /DO Mesa and [facility] discussed patient disposition. Based on the clinical presentation of suicidalthoughts with intent and plan, the patient does meet criteria for inpatient psychiatric admission. ~ [facility] will begin bed search for inpatient admission. Plan of Care: Patient will be admitted. ~Patient is currently voluntary for inpatient psychiatric admission. ~Patient is appropriate to participate in an inpatient psychiatric milieu. ~[facility] has discussed admission with patient including the bed search process, transportation, estimated length of stay, and inpatient treatment process and expectations. ~Patient/Guardian is not agreeable to be placed at: [place]. ~Patient/Guardian is only agreeable for placement at: within [address] of [facility]. ~[facility] will start the search for psychiatric bed placement at this time. Care Plan while remaining in hospital: Patient Strengths: Medication compliance, Stable housing, and Awareness of substance use issues Patient Coping Mechanisms: Other: Petting her cat Patient Triggers: Feeling overwhelmed/high stress and Physical illness Distractions and things that may help: Coloring books/magazines/books, Allow patient to call family/friend if appropriate and does not cause issues, PRN medications, if available, if change in behavior are noticed, Be specific on time frames and follow them, and Give options when possible What staff can do proactively: For Depression: ~ Make time to listen to patient and use empathy ~ Discourage sleeping during the day and use sleep hygiene to encourage sleep at night ~ Encourage completion of ADL's ~ Monitor for suicidal risk ~ If increased risk for suicide, follow C-SSRS guidelines ~ Engage patient in a therapeutic relationship ~ Monitor eating patterns and encourage nutritional intake ~ Include family in care if patient agreeable Psychiatric History and Symptoms Mental Health Treatment: (Inpatient/outpatient, when, where, and how many admissions in past year): Patient's most recent admission was to 2022 in [place]. Patient has a past psychiatric history of bipolar. Patient is followed by [facility] for psychiatry. Patient is not currently receiving any outpatient group treatment. Next appointment with psychiatrist: 12/26/23 Telehealth Alona Vaughn Next appointment with therapist/counselor: Gardener Name, Agency and Phone number: 10/29/23 David Pacheco Current suicidal ideation: Patient admits to suicidal thoughts with current plan to overdose on medication. Previous suicide attempt(s): Patient has no previous suicide attempts. Suicidal Ideation in the past month? Yes SAFE-T Protocol with C-SSRS ([place] Risk and Protective Factors) - Recent Step 1: Identify Risk Factors: [place] Suicide Severity Rating Scale (Recent Screener) Initial Screening: Reassessment (as needed): Is the patient being treated today because it is known or suspected that they prepared, started, ortried to end their life? Yes Yes Is the patient able to appropriately answer questions? Yes Information obtained from: Patient 1. In the past month, have you wished you were or that you could go to sleep and not wake up? Yes Yes 2. In the past month, have you actually had any thoughts of killing yourself? Yes Yes 3. In the past month, have you been thinking about how you might kill yourself? Yes Yes 4. In the past month, have you had these thoughts and had some intention of acting on them? Yes Yes 5. In the past month, have you started to work out or worked out the details of how to kill yourself and do you intend to carry out this plan? Yes 6. Have you ever done anything, started to do anything, or prepared to do anything to end your life? Yes Yes 6b. Was this within the past three months? Yes Suicide Risk Level: High Activating Events: chronic medical comorbidities Treatment History: history of mental illness and prior psychiatric hospitalizations Clinical Status: major depressive episode and chronic physical pain or other acute medical problem (e.g. 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 disorders) Access to lethal methods (specifically about the presence or absence of a firearm in the home or ease of accessing): No Step 2: Identify Protective Factors (Protective factors may not counteract significant acute suicide risk factors): Internal: no psychotic symptoms, no prior suicide attempts, no prior history of violence, and medication compliance External: living with family, disability income, no access to firearms, established outpatient psychiatrist [facility], and no history of physical/sexual abuse Step 3: Specific Questioning about Thoughts, Plans, and Suicidal Intent (see Step 1 for Ideation Severity and Behavior): C-SSRS Suicidal Ideation Intensity (with respect to the most severe ideation 1-5 identified above) Month Frequency In the past month, how many times have you had these thoughts? (4) Daily or almost daily Duration When you have the thoughts how long do they last? (1) Fleeting - few seconds or minutes Controllability Could/can you stop thinking about killing yourself or wanting to if you want to? (4) Can control thoughts with a lot of difficulty Deterrents Are there things - anyone or anything (e.g., family, latter day, pain of ) - that stopped you from wanting to or acting on thoughts of suicide? (3) Uncertain that deterrents stopped you Reasons for Ideation What sort of reasons did you have for thinking about wanting to or killing yourself? Was it to end the pain or stop the way you were feeling (in other words you couldn???t go on livingwith this pain or how you were feeling) or was it to get attention, revenge or a reaction from others? Or both? (4) Mostly to end or stop the pain (you couldn't go on living with the pain or how you were feeling) Total Suicidal Ideation Intensity Score* (add values of selected answers above) *Score can range from 2- 25: -Low: 2-5 -Moderate: 6-10 -Moderately Severe: 11-15 -Severe: 16-20 -Very Severe: 21-25 16 Step 4: Guidelines to Determine Level of Risk and Develop Interventions to LOWER Risk Level: Assessment of risk level is based on clinical judgment after completing steps 1-3. The Suicide Ideation Intensity Score does not directly correlate to Suicide Risk. The Suicide Ideation Intensity score must be used in conjunction with clinical judgment to determine risk stratification. Initial Risk Stratification Suggested Interventions High Suicide Risk Suicidal ideation with intent or intent with plan in past month (C-SSRS Suicidal Ideation #4 or #5) OR Suicidal behavior within past 3 months (C-SSRS Suicidal Behavior) High Suicide Precautions 1:1 observation All belongings secured Hospital attire Elopement precautions Minimize environment risk in room Moderate-High Suicide Risk Suicidal ideation with method WITHOUT plan, intent or behavior in past month (C- SSRS Suicidal Ideation #3) OR Multiple risk factors and few protective factors Moderate-High Suicide Precautions Patient sitter not required May keep items evaluated as safe, other belongings secured Hospital attire Minimize environment risk in room Moderate-Low Suicide Risk Suicidal behavior more than 3 months ago (C-SSRS Suicidal Behavior Lifetime) OR Multiple risk factors and few protective factors Moderate-Low Suicide Precautions Resources given to patient Nursing handoff precautions Low Suicide Risk Wish to or Suicidal Ideation WITHOUT method, intent, plan or behavior (C- SSRS Suicidal Ideation#1 or #2) OR Modifiable risk factors and strong protective factors OR No reported history of Suicidal Ideation or Behavior Low Suicide Precautions Resources given to patient Step 5: Assessment and Plan: Updated Risk Level: High Suicide Risk Rationale for risk level decision and actions taken: Inpatient Psych Risk factors include: history of mental illness, depression, current suicidal ideation with intent and plan, prior psychiatric hospitalizations, history of illicit substance use, and chronic medical comorbidities Has patient's risk level changed from initial C-SSRS? No Self-Harm: Denies Violent behavior: Denied Homicidal Ideation: Denied Mood Symptoms: depressed, irritable, hopelessness/helplessness, and fatigue. Frequency/Time Frame: often Sleep: Disrupted. Patient reports getting 5 hours of sleep in a 24-hour period. Appetite: WNL. Weight changes: Weight Change: No changes Psychotic Symptoms: Patient denies paranoia. Patient denies delusions. Patient denies hallucinations. Insight (into psychotic symptoms): N\A Anxiety Symptoms: Denies Trauma: Traumatic/Stressful life events: [] Natural disaster [] Human made disaster [] Serious accident or injury [] of a spouse, child, close friend or family member [] Life threatening illness [] Being kidnapped or taken hostage [] Involved in combat war [] Lived in war affected area [] [place] responsible for the serious injury or of another person [] Sexual assault [x] None of the above Describe: (include timeline and if seeking treatment currently): NA Abuse: Physical: Denies; Emotional/Mental: Denies; Sexual: Denies; Neglect: Denies; Exploitation: Denies Symptoms of Trauma or Abuse: Denies Mental Status Exam Appearance/hygiene: appropriate Behavior: alert, cooperative, tearful, and with poor eye contact Psychomotor: normal/no abnormality Speech: of normal rate and rhythm Thought process: linear and goal-directed and coherent Thought content: suicidal ideations Perception: no hallucinations. Patient does not appear to be responding to internal stimuli. Affect: sad and depressed which is congruent with their overall presentation. Mood: Pt states mood is: I just want to go to sleep and never wake up Insight: fair Judgement: poor Intellectual Functioning: WNL Medical History Patient Active Problem List Diagnosis Date Noted Strain of calf muscle 02/22/2020 Adiposity 11/18/2011 Hypersomnia 11/18/2011 Obstructive sleep apnea syndrome in adult 11/18/2011 Hay fever 09/08/2011 Cough 09/08/2011 Sinusitis 09/08/2011 Allergic rhinitis due to pollen 09/08/2011 Chronic infection of sinus 09/08/2011 Assistive Medical Devices: cane Performs ADL's: Yes Independent PCP: Daja Kern MD Allergies Allergies Allergen Reactions Risperidone Other (See comments) and Hives Violent and agitated. Sulfa (Sulfonamide Antibiotics) Hives Reaction: Hives, Topiramate Other (See comments) and Hives Difficulty with speech and word finding. Ziprasidone Hcl Other (See comments) Abnormal mouth movements Ziprasidone Hives Medications: Patient in the Emergency Room: Prior to Admission medications Medication Sig Start Date End Date Taking? Authorizing Provider Abilify Maintena 400 mg IM injection 02/10/23 Pedro Stafford MD acetaminophen (TYLENOL) 500 mg tablet Take 2 tablets (1,000 mg total) by mouth every 6 (six) hours as needed for pain Pedro Stafford MD albuterol HFA (PROVENTIL HFA,VENTOLIN HFA,PROAIR HFA) 90 mcg/actuation inhaler Inhale 2 puffs every6 (six) hours as needed 02/10/22 Pedro Stafford MD ARIPiprazole (ABILIFY) 10 mg tablet Take 1 tablet (10 mg total) by mouth daily Pedro Stafford MD benztropine (COGENTIN) 0.5 mg tablet 08/22/22 Pedro Stafford MD DULox[address] DR (CYMBALTA) 60 mg capsule 10/17/22 Pedro Stafford MD fluticasone propionate (FLONASE) 50 mcg/actuation nasal spray 2 sprays daily As needed 10/17/22 Pedro Stafford MD gabapentin (NEURONTIN) 600 mg tablet TAKE 1 & 1/2 TABLETS BY MOUTH THREE TIMES A DAY 10/19/23 Home Santos MD hydrOXYzine (ATARAX) 25 mg tablet 08/21/23 Pedro Stafford MD irbesartan (AVAPRO) 150 mg tablet Take 1 tablet (150 mg total) by mouth daily 10/18/19 Pedro Stafford MD irbesartan (AVAPRO) 300 mg tablet 10/24/23 Pedro Stafford MD irbesartan-hydrochlorothiazide (AVALIDE) 150-12.5 mg per tablet daily Pedro Stafford MD levothyroxine (SYNTHROID) 50 mcg tablet 11/12/19 Pedro Stafford MD lidocaine (LIDODERM) 5 % 07/26/22 Pedro Stafford MD loperamide (IMODIUM) 2 mg capsule Take 1 capsule (2 mg total) by mouth every 8 (eight) hours as needed for diarrhea 01/05/23 Pedro Stafford MD metFORMIN XR (GLUCOPHAGE XR) 500 mg 24 hr tablet Take 1 tablet (500 mg total) by mouth daily with breakfast 03/07/23 Pedro Stafford MD metoprolol XL (TOPROL-XL) 50 mg extended release tablet 10/24/23 Pedro Stafford MD multivitamin with minerals tablet Take 1 tablet by mouth daily 01/06/23 Pedro Stafford MD omeprazole (PriLOSEC) 40 mg capsule Take 1 capsule (40 mg total) by mouth daily 02/06/19 Pedro Stafford MD ondansetron ODT (ZOFRAN-ODT) 4 mg disintegrating tablet Take 1 tablet (4 mg total) by mouth every 6(six) hours as needed 01/05/23 Pedro Stafford MD senna (SENOKOT) 8.6 mg tablet Take 2 tablets by mouth nightly as needed 01/05/23 Pedro Stafford MD simvastatin (ZOCOR) 10 mg tablet 11/12/19 Pedro Stafford MD tiZANidine (ZANAFLEX) 4 mg tablet TAKE 1 TABLET BY MOUTH TWICE A DAY 11/22/23 Home Santos MD traZODone (DESYREL) 100 mg tablet TK 1 T PO HS 09/24/19 Pedro Stafford MD triamterene-hydroCHLOROthiazide 37.5-25 mg per tablet 03/06/23 Pedro Stafford MD Medication Compliant: Patient reports they are compliant with their medication(s). Medication(s) Reviewed with Patient: No Pharmacy: [address] [facility] [address] [facility] [id number] Social/Family History Alona Kemp is a 53 y.o. Single White female. Patient's gender assigned at was female and currently identifies as a female. Patient prefers she/her/hers pronouns. Patient currently resides with mother. Patient has one child. Patient completed 15 years of school. Patient is able to read and write. Patient states her faith preference is non-spiritism Patient is on disability. Patient denies any financial issues. Patient has never served in the armed forces. Patient denies any legal issues. There is no current involvement with [facility] or [facility]. Patient reports family history of mental illness: Paternal side of family - history of unknown. Maternal side of family - history of unknown. Patient denies any family history of suicide attempts/ by suicide. Patient denies any family history of substance use. Substance Screening Smoking Status: Denies Substance Use: Patient denies alcohol use. Patient admits to using cocaine UDS positive for cocaine Additional Assessments: Behavioral Health Integration Services [facility] Intake Assessment Addendum Substance Use Alcohol Amphetamine Cannabis Cocaine Cocaine Type: Crack Age Started: 21 Amount: $50 Frequency: once per month Last Use: 12/25/23 Hallucinogens Inhalants Opiate/Opiate Like PCP Sedatives/Hypnotics Over The Counter Assessment Withdrawal History Symptoms Problems Associated with Chemical Use Based on the first part of the assessment, cyrus those criteria present. You may need to ask furtherquestions to clarify the presence of a particular criteria. CRITERIA FOR A PROVISIONAL DIAGNOSIS: Three or more are required for a referral to treatment. and [place] Suicide Severity Rating Scale (Recent Screener) [place] Suicide Severity Rating Scale (Recent Screener) 1. In the past month, have you wished you were or that you could go to sleep and not wake up?:Yes 2. In the past month, have you actually had any thoughts of killing yourself?: Yes 3. In the past month, have you been thinking about how you might kill yourself?: Yes 4. In the past month, have you had these thoughts and had some intention of acting on them?: Yes 5. In the past month, have you started to work out or worked out the details of how to kill yourself and do you intend to carry out this plan?: Yes 6. Have you ever done anything, started to do anything, or prepared to do anything to end your life?: Yes 6b. Was this within the past three months?: Yes Suicide Risk Level: High Thank you for the opportunity to participate in this patient's care. Alexander Garrett, [facility] Behavioral Health [facility] This was a telepsych/telemedicine visit with Alona Kemp which took place via real-time video connection with [employer]. During the visit, I was located at my residence, and the patient was located at [facility] in the [facility]. My visit with the patient started at 0757 and ended at 0820. After being given an opportunity to ask questions about and discuss this type of visit, the patientand/or guardian verbally consented to proceeding with the video visit. The patient and/or guardian understands that they may be billed and/or responsible for any applicable copayments. The patient and/or guardian agrees to participate in a psychiatric assessment service via Interactive Video Conferencing with a Qualified Mental Health Professional. Patient and/or guardian understands that their privacy and confidentiality will be protected at all times and all reasonable and appropriate measures will be made to eliminate all confidentiality risks. Patient and/or guardian understands that the s ervices they receive are part of the patient's hospital record. Patient and/or guardian is aware that the [facility] and Hospital Staff will have access to the patient's relevant medical information including psychiatric and/or psychological information, alcohol and/or drug use and mental health records. Patient and/or guardian understands this consent is part of the patient's medical record. documented in this encounter ED Notes * Reta White - 12/26/2023 1:22 PM CDT Behavioral Health Integration (BHI) Navigator Note Behavioral Health Navigator spoke with Jeana at [facility]. Dr. James accepted patient to room TBD. Nursing can call report to [phone]. Behavioral Health Navigator provided AGUILA Bishop and MD [facility] admission information. Patient is Voluntary for admission. I will no longer be following patient. Please reach out to [phone] with any questions. Hospital Address: [place] [address] Reta White Behavioral Health Navigator * Reta White - 12/26/2023 9:30 AM CDT Behavioral Health Integration (BHI) Navigator Note Patient Vital Signs for the past 24 hrs: BP MAP (mmHg) Temp Pulse Resp SpO2 Height Weight 12/26/23 0829 (!) 134/104 -- -- 101 -- -- -- -- 12/26/23 0621 122/79 -- -- 100 20 98 % -- -- 12/26/23 0530 (!) 149/113 122 -- 110 -- 96 % -- -- 12/26/23 0524 (!) 149/113 -- (!) 35.6 ??C (96 ??F) 104 20 98 % 157 cm (5' 1.81 ) 129.3 kg (285 lb) CBC: Lab Results Component Value Date WBC 8.4 12/26/2023 HGB 13.3 12/26/2023 HCT 39.6 12/26/2023 LABPLAT 207 12/26/2023 RBC 4.33 12/26/2023 MCV 91.5 12/26/2023 MCH 30.7 12/26/2023 MCHC 33.6 12/26/2023 RDWCV 13.2 12/26/2023 RDWSD 43.4 12/26/2023 NRBCABS 0.00 12/26/2023 Metabolic Panel: Lab Results Component Value Date SODIUM 138 12/26/2023 POTASSIUM 3.9 12/26/2023 CHLORIDE 99 12/26/2023 CO2 27 12/26/2023 ANIONGAP 12 12/26/2023 BUNSER 13 12/26/2023 CREATININE 0.59 (L) 12/26/2023 GLUCOSE 167 12/26/2023 CALCIUM 8.8 12/26/2023 PROT 7.5 12/26/2023 BILITOT 0.3 12/26/2023 ALBUMIN 4.0 12/26/2023 ALKPHOS 81 12/26/2023 ALT 33 12/26/2023 AST 21 12/26/2023 TSH/T4: Lab Results Component Value Date TSH 3.42 12/26/2023 Urinalysis: Lab Results Component Value Date COLORU Yellow 12/26/2023 CLARITYU Turbid (A) 12/26/2023 SPECGRAVU 1.017 12/26/2023 PHURINE 6.5 12/26/2023 PROTURQL Trace 12/26/2023 GLUCOSEUR Negative 12/26/2023 BLOODUR 1+ (A) 12/26/2023 UROBILINOGEN <2.0 12/26/2023 NITRITEU Positive (A) 12/26/2023 LEUKESTUR 3+ (A) 12/26/2023 UARFLXCMNT Reflex to microscopic UA will be performed. 12/26/2023 WBCU 21-50 (A) 12/26/2023 RBCU 0-2 12/26/2023 EPISQUAMU 6-10 (A) 12/26/2023 MUCUSU Present (A) 12/26/2023 Drug of Abuse: Lab Results Component Value Date AMPHETUR Not Detected 12/26/2023 BARBITURATE Not Detected 12/26/2023 LABBENZUR Not Detected 12/26/2023 CANNABINOIDS Not Detected 12/26/2023 COCAINE Screen Positive, presumptive (A) 12/26/2023 FENTUR Not Detected 12/26/2023 LABOPIA Not Detected 12/26/2023 OXYCODONE Not Detected 12/26/2023 PCPUR Not Detected 12/26/2023 METHADONE Not Detected 12/26/2023 Lab Results Component Value Date ACTMNPHEN <5 12/26/2023 SALICYLATE <5.0 12/26/2023 Alcohol level: Lab Results Component Value Date ETOH <10 12/26/2023 COVID: Lab Results Component Value Date [id number] Negative 12/26/2023 Influenza A/B, RSV: Lab Results Component Value Date FLUAPCR Negative 12/26/2023 FLUBPCR Negative 12/26/2023 RSVPCR Negative 12/26/2023 Reta White Behavioral Health Navigator * Ilya Mesa MD - 12/26/2023 6:09 AM CDT HPI Chief Complaint Patient presents with ??? Suicidal Ideation Patient is a 53-year-old woman with a history of bipolar disorder, diabetes, hypertension, hyperlipidemia, and extreme obesity who presents with suicidal thoughts. Onset approximately 1 week ago. Having thoughts of overdosing. Reports multiple stressors in her life. Lives with her mother. Does report some dysuria and frequency. Denies fever, chills, chest pain, dyspnea, abdominal pain, nausea, vomiting, or other complaints. Denies access to any firearms. Patient History: Patient Active Problem List Diagnosis Date Noted ??? Strain of calf muscle 02/22/2020 ??? Adiposity 11/18/2011 ??? Hypersomnia 11/18/2011 ??? Obstructive sleep apnea syndrome in adult 11/18/2011 ??? Hay fever 09/08/2011 ??? Cough 09/08/2011 ??? Sinusitis 09/08/2011 ??? Allergic rhinitis due to pollen 09/08/2011 ??? Chronic infection of sinus 09/08/2011 Past Medical History: Diagnosis Date ??? Anemia ??? Anxiety 1989 ??? Arthritis ??? Bipolar disorder (HCC) 2021 ??? Depression ??? Diabetes mellitus (HCC) 2023 ??? Fractures ??? Gastric reflux ??? Hypercholesteremia ??? Hypertension ??? Irritable bowel syndrome 2019 ??? Low back pain 2002 ??? Morbid obesity (HCC) 2001 ??? Sleep apnea 2008 ??? Substance abuse ([facility]/HCC) (HCC) 1992 ??? Thyroid disease ??? Type 2 diabetes mellitus (HCC) 2023 Past Surgical History: Procedure Laterality Date ??? SECTION ??? CHOLECYSTECTOMY Family History Problem Relation Age of Onset ??? Hypertension Mother ??? Anxiety disorder Mother ??? Diabetes Mother ??? Arthritis Mother ??? Depression Mother ??? Obesity Mother ??? Mental illness Father ??? Obesity Father Social History Tobacco Use ??? Smoking status: Never Passive exposure: Current ??? Smokeless tobacco: Never Substance and Sexual Activity ??? Alcohol use: No ??? Drug use: Not Currently Types: Cocaine Comment: 2x/month ??? Sexual activity: Not Currently Social History Social History Narrative ??? Not on file Review of Systems Review of Systems Constitutional: Negative for chills and fever. HENT: Negative for congestion, rhinorrhea and sore throat. Eyes: Negative for visual disturbance. Respiratory: Negative for cough and shortness of breath. Cardiovascular: Negative for chest pain. Gastrointestinal: Negative for abdominal pain, constipation, diarrhea, nausea and vomiting. Genitourinary: Positive for dysuria, frequency and urgency. Musculoskeletal: Negative for myalgias. Skin: Negative for rash. Neurological: Negative for seizures, syncope and headaches. Psychiatric/Behavioral: Positive for dysphoric mood and suicidal ideas. Negative for confusion. Physical Exam ED Triage Vitals [12/26/23 0524] Temp Pulse Resp BP SpO2 (!) 35.6 ??C (96 ??F) 104 20 (!) 149/113 98 % Temp src Heart Rate Source Patient Position BP Location FiO2 (%) -- -- -- -- -- Height Height Method Weight Weight Method 1.57 m (5' 1.81 ) -- 129.3 kg (285 lb) -- Physical Exam Vitals and nursing note reviewed. Constitutional: General: She is not in acute distress. Appearance: She is not ill-appearing or diaphoretic. HENT: Head: Normocephalic and atraumatic. Mouth/Throat: Mouth: Mucous membranes are moist. Eyes: General: No scleral icterus. Extraocular Movements: Extraocular movements intact. Cardiovascular: Rate and Rhythm: Normal rate and regular rhythm. Pulmonary: Effort: Pulmonary effort is normal. No respiratory distress. Abdominal: General: There is no distension. Musculoskeletal: General: No swelling. Normal range of motion. Cervical back: Normal range of motion. Skin: General: Skin is warm and dry. Findings: No rash. Neurological: General: No focal deficit present. Mental Status: She is alert and oriented to person, place, and time. Mental status is at baseline. Psychiatric: Comments: Mood depressed Affect dysphoric Speech normal FOT logical, coherent COT + SI, no HI/AVH Insight good Judgement good Cognition grossly normal MDM Medical Decision Making 53-year-old woman with a history of bipolar disorder, diabetes, hypertension, hyperlipidemia, extreme obesity who presents with suicidal thoughts. Suspect depressed episode of bipolar disorder. Otherconsiderations include major depressive disorder. Doubt substance induced mood disorder. Doubt other emergent condition. Plan: Screening labs, empiric antibiotics, psychiatric evaluation Amount and/or Complexity of Data Reviewed Labs: ordered. Decision-making details documented in ED Course. Risk Prescription drug management. Decision regarding hospitalization. Diagnosis or treatment significantly limited by social determinants of health. ED Course as of 12/26/23 1329 Time: 12/25 604 Comment: CBC unremarkable By: Ilya Mesa MD Time: 12/25 613 Value: Nitrite, ur(!): Positive Comment: Is having urinary symptoms, will treat By: Ilya Mesa MD Time: 12/25 616 Comment: Medically stable for psychiatric evaluation and treatment at this time By: Ilya Mesa MD Time: 12/25 632 Comment: CMP unremarkable By: Ilya Mesa MD Time: 12/25 632 Value: Ethanol: <10 Comment: (Reviewed) By: Ilya Mesa MD Time: 12/25 632 Value: TSH: 3.42 Comment: Normal By: Ilya Mesa MD Time: 12/25 644 Value: Cocaine(!): Screen Positive, presumptive Comment: (Reviewed) By: Ilya Mesa MD Time: 12/25 644 Value: COVID-19 RNA: Negative Comment: (Reviewed) By: Ilya Mesa MD Time: 12/25 644 Value: Influenza A RNA: Negative Comment: (Reviewed) By: Ilya Mesa MD Time: 12/26 743 Value: Salicylates: <5.0 Comment: (Reviewed) By: Ilya Mesa MD Time: 12/26 743 Value: Acetaminophen: <5 Comment: (Reviewed) By: Ilya Mesa MD Time: 12/25 820 Comment: [facility] evaluated. Will seek voluntary admission. By: Ilya Mesa MD Time: 12/25 944 Value: HCG, ur: Negative Comment: (Reviewed) By: Ilya Mesa MD Time: 12/25 132 Comment: Accepted at [facility] By: Ilya Mesa MD Final diagnoses: Bipolar affective disorder, current episode depressed, current episode severity unspecified (HCC) Acute cystitis without hematuria Ilya Mesa MD 12/26/23 0617 * Liz Lee NP - 12/26/2023 5:23 AM CDT Pt is a 53 yo female brought by EMS to ER from home c/c of suicidal ideation. Pt reports being depressed. States she wanted to harm self by taking pills. Pt lives at home with her mother. Reports that she sees [facility] for Psych/depression. Pt had a low blood sugar per EMS who gave her oral glucose, she also became nausea and they gave her zofran PO. * Nidhi Bonilla RN - 12/26/2023 5:23 AM CDT Bed: ED15 Expected date: Expected time: Means of arrival: Comments: 70 Nidhi Bonilla RN 12/26/23 0523 documented in this encounter Plan of Treatment [...] Procedure Name Priority Date/Time Associated Diagnosis Comments ECG 12-LEAD Routine 12/26/2023 12:43 PM CDT POCT GLUCOSE DEVICE Routine 12/26/2023 5 :55 AM CDT INFLUENZA A/B, RSV, AND COVID-19 PCR Routine 12/26/2023 5:50 AM CDT EGFR STAT 12/26/2023 5:50 AM CDT DIFFERENTIAL AUTO STAT 12/26/2023 5:5 0 AM CDT THYROID FUNCTION CASCADE STAT 12/26/2023 5:50 AM CDT URINALYSIS AND REFLEX TO MICROSCOPIC AND CULTURE STAT 12/26/2023 5:50 AM CDT CBC WITH AUTO DIFFERENTIAL STAT 12/26/2023 5:50 AM CDT DRUGS OF ABUSE SCREEN, URINE WITHOUT CONFIRMATION STAT 12/26/2023 5:50 AM CDT HCG, URINE, QUALITATIVE STAT 12/26/2023 5:50 AM CDT URINALYSIS, MICROSCOPIC ONLY STAT 12/26/2023 5:50 AM CDT URINE CULTURE STAT 12/26/2023 5:50 AM CDT ETHANOL STAT 12/26/2023 5:50 AM CDT COMPREHENSIVE METABOLIC PANEL STAT 12/26/2023 5:50 AM CDT ACETAMINOPHEN LEVEL Add-On 12/26/2023 5 :49 AM CDT SALICYLATE LEVEL Add-On 12/26/2023 5:49 AM CDT documented in this encounter Results * ECG 12 lead (12/26/2023 12:43 PM CDT) 12/26/2023 12:4 3 PM CDT Narrative [facility] - 12/27/2023 8:05 AM CDT Vent Rate: 87 bpm RR Interval: 682 msec NE Interval: 135 msec QRS Duration: 102 msec QT Interval: 368 msec QTC Interval: 413 msec P-R-T [place]: 34 - -14 - 26 degrees IMPRESSION: SINUS RHYTHM VOLTAGE CRITERIA FOR LVH ??[MEETS CRITERIA IN ONE OF: R(aVL), S(V1), R(V5), R(V5/V6)+S(V1)] ABNORMAL ECG No change compared to prior EKG Electronically Signed By: Ken Woods MD [facility] Ilya Mesa MD ECG ORDERABLES Fin al Result [facility] * POCT glucose (12/26/2023 5:55 AM CDT) Pathologist [facility] Glucose, POC 167 70 - 199 mg/dL Blood 12/26/2023 5:55 AM CDT 12/26/2023 5:55 AM CDT Notinfile Unknown LAB POCT ORDERABLES - DEVICE F inal Result [facility] ([place]) 1 [facility] Department [place] [address] * eGFR (12/26/2023 5:50 AM CDT) Pathologist [facility] eGFR >90 >=60 mL/min/1. 73 m2 Comment: [...] ORDERABLES Final R esult Performing Organization Address City/[facility]/ZIP Co de Phone Number [facility] ([place]) 1 [facility] Department [place] [address] * hCG, urine, qualitative (12/26/2023 5:50 AM CDT) HCG, ur Negative Negative Urine 12/26/2023 5:50 AM CDT 12/26/2023 9:36 AM CDT us Ilya Mesa MD LAB URINE ORDERABLE S Final Result [facility] ([place]) 1 [facility] Department [place] [address] * (ABNORMAL) Urine culture Urine (12/26/2023 5:50 AM CDT) Report Final Report: Greater than or equal to 100,000 colonies/mL of Klebsiella pneumoniae Greater than or equal to 100,000 colonies/mL of Klebsiella pneumoniae #2 Greater than or equal to 100,000 colonies/mL of Escherichia coli (.) Comment:Testing performed by : [facility], [address] [place]., [address] Organism KLEBSIELLA PNEUMONIAE [facility] ([place]) Organism KLEBSIELLA PNEUMONIAE [facility] ([place]) Organism ESCHERICHIA COLI [facility] ([place]) Urine 12/26/2023 5:50 AM CDT 12/26/2023 9:30 AM CDT Narrative [facility] ([place]) - 12/29/2023 10:03 AM CDT Urine culture reflexed based upon urinalysis results. Testing performed by [facility] ([phone]) Organism Antibiotic Method Susceptibility Klebsiella pneumoniae Ampicillin [...] O RDERABLES Final Result Performing Organization Address [facility]/ZIP Co de Phone Number [facility] ([place]) 1 [facility] Department [place] [address] * (ABNORMAL) Urinalysis, microscopic only (12/26/2023 5:50 AM CDT) WBC, ur 21-50(A) 0 - 5 /HPF RBC, ur 0-2 0 - 2 /HPF [facility] ([place]) Epithelial cells, squamous, ur 6-10(A) 0 - 5 /HPF [facility] ([place]) Bacteria, ur 3+(A) [facility] ([place]) Mucous, ur Present(A) [facility] ([place]) Culture Reflex Comment Reflex to urine culture will be performed. [facility] ([place]) Urine 12/26/2023 5:50 AM CDT 12/26/2023 5:54 AM CDT Gt Knox MD LAB URINE ORDERABLES Final R esult Performing Organization Address [facility]/ZIP Co de Phone Number [facility] 1 [facility] [place] [address] * Differential, auto (12/26/2023 5:50 AM CDT) [...] revised on 2017. Basophil pct 0.5 % [facility] ([place]) Comment: Interpretive Data Percent cell count reference ranges are not reported, since discordance with absolute values may lead to misinterpretation of CBC data. Current Interpretive Data was last revised on 2017. Blood 12/26/2023 5:50 AM CDT 12/26/2023 5:54 AM CDT us Gt Knox MD LAB BLOOD ORDERABLES Final R esult [facility] ([place]) 1 [facility] Department [place] [address] * Influenza A/B, RSV, and COVID-19 PCR Nasopharyngeal (12/26/2023 5:50 AM CDT) COVID-19 RNA Negative Negative Influenza A RNA Negative Negative [facility] ([place]) Influenza B RNA Negative Negative [facility] ([place]) RSV RNA Negative Negative [facility] Comment: Interpretive data: Testing performed by [facility]. This test is performed using the [employer] Xpert Xpress CoV-2/Flu/RSV plus assay. This is a multiplex, real- time reverse transcriptase PCR assay intended for the qualitative detection of nucleic acid from SARS-CoV-2, influenza A, influenza B, and respiratory syncytial virus. This assay has been cleared by the [place] Food and Drug administration. The performance characteristics have been verified by the [facility]. ?? Results must be considered in the clinical context, and a negative result does not rule out infection. Interpretive Data last revised 2023 Nasopharyngeal 12/26/2023 5: 50 AM CDT 12/26/2023 5:54 AM CDT Narrative [facility] - 12/26/2023 6:43 AM CDT Is the Patient experiencing symptoms consistent with COVID?->No Gt Knox MD LAB MICROBIOLOGY - GENERAL O RDERABLES Final Result [facility]) 1 [facility] Department [place] [address] * (ABNORMAL) Urinalysis reflex to microscopic and culture Urine (12/26/2023 5:50 AM CDT) Pathologist [facility] Color, ur Yellow Yellow Clarity, ur Turbid(A) Clear [facility] ([place]) Specific gravity, ur 1.017 1.003 - 1.030 [facility] pH, urine 6.5 [facility]) Comment: Interpretive Data ? Urine pH is affected by diet, medications, systemic acid-base disturbances, and renal tubular function. ??pH may affect urinary stone formation. ??For example, urine pH below 6.0 may help reduce the tendency for calcium phosphate stones and pH greater than 6.0 may reduce the tendency for uric acid stone formation. Source: [employer] Current Interpretive Data was last revised on 2017 Protein, ur ql Trace Negative [facility]) Glucose, ur ql Negative Negative [facility]) Ketones, ur Negative Negative [facility] ([place]) Bilirubin, ur Negative Negative [facility]) Blood, ur 1+(A) Negative [facility]) Urobilinogen, ur <2.0 <2.0 mg/dL [facility] ([place]) Nitrite, ur Positive(A) Negative [facility] ([place]) Leukocyte esterase, ur 3+(A) Negative [facility] ([place]) UA reflex comment Reflex to microscopic UA will be performed. [facility] ([place]) Urine 12/26/2023 5:50 AM CDT 12/26/2023 5:54 AM CDT Gt Knox MD LAB MICROBIOLOGY - GENERAL O RDERABLES Final Result [facility] ([place]) 1 [facility] Department [place] [address] * (ABNORMAL) Drugs of Abuse Screen, Urine without Confirmation (12/26/2023 5:50 AM CDT) Amphetamine, ur Not Detected CutOff 500ng/mL Comment: Interpretive Data - Amphetamines: ??Samples containing greater than 500 ng/mL d-methamphetamine ??or other cross-reacting amphetamine compounds are reported as positive. ??Amphetamine immunoassays are subject to significant false positive rates due to cross-reactivity of non-amphetamine drugs. Confirmatory testing required for definitive results. Current Interpretive Data was last reviewed 2022. Barbiturates, ur Not Detected CutOff 200ng/mL [facility] ([place]) Comment: Interpretive Data - Barbiturates: [...] Not Detected CutOff 25 ng/mL [facility] ([place]) Comment: Interpretive Data - Phencyclidine: ??Samples containing greater than 25 ng/mL phencyclidine or other cross-reacting compounds are reported as positive. ??False positive and false negative results are possible. Confirmatory testing required for definitive results. Current Interpretive Data was last reviewed 2022. Urine Creatinine 114 mg/dL [facility] ([place]) Comment: Interpretive Data Urine Creatinine: < 10 mg/dL is extremely dilute = or > 10 but < 20 mg/dL is dilute = or > 20 mg/dL is normal Current Interpretive Data was last revised on 2017. Urine 12/26/2023 5:50 AM CDT 12/26/2023 5:55 AM CDT Narrative [facility] ([place]) - 12/26/2023 6:44 AM CDT Drug of Abuse screening is performed by immunoassay for medical purposes only. ??This is not to be used for Pain Management purposes. Gt Knox MD LAB URINE ORDERABLES Final R esult [facility] ([place]) 1 [facility] Department [place] [address] * Ethanol (12/26/2023 5:50 AM CDT) Ethanol <10 <=10 mg/dL Comment: Interpretive Data Legal limit of intoxication > or = 80 mg/dL Levels > or = 400 mg/dL are potentially TOXIC. Current interpretive data was last revised on 2018. Blood 12/26/2023 5:50 AM CDT 12/26/2023 5:54 AM CDT Gt Knox MD LAB BLOOD ORDERABLES Final R esult [facility] ([place]) 1 [facility] Department [place] [place] [address] * Thyroid Function [place] (12/26/2023 5:50 AM CDT) TSH 3.42 0.30 - 4.20 mcIUnit/mL Blood 12/26/2023 5:50 AM CDT 12/26/2023 5:54 AM CDT Gt Knox MD LAB BLOOD ORDERABLES Final R esult Performing Organization Address City/[facility] Co de Phone Number [facility] ([place]) 1 [facility] Department [place] [address] * (ABNORMAL) Comprehensive metabolic panel (12/26/2023 5:50 AM CDT) Pathologist [facility] Sodium 138 135 - 145 mmol/L Potassium, pl 3.9 3.3 - 4.9 mmol/L [facility]) Chloride 99 97 - 110 mmol/L [facility] CO2 27 22 - 32 mmol/L [facility]) Anion gap 12 2 - 15 mmol/L [facility]) BUN 13 6 - 25 mg/dL [facility] Creatinine 0.59(L) 0.60 - 1.10 mg/dL [facility]) Glucose 166 70 - 199 mg/dL [facility] ([place]) Comment: Interpretive Data Fasting glucose [...] MD LAB BLOOD ORDERABLES Final R esult [facility] ([place]) 1 [facility] Department [place] [address] * CBC with auto differential (12/26/2023 5:50 [...] NRBC abs 0.00 0.00 - 0.01 K/cumm [facility] ([place]) Blood (Blood, Venous) 12/26/2023 5:50 AM CDT 12/26/2023 5:54 AM CDT us Gt Knox MD LAB BLOOD ORDERABLES Final R esult Performing Organization Address [facility] Co de Phone Number [facility] ([place]) 1 [facility] [place] [address] * Acetaminophen level (12/26/2023 5:49 AM CDT) [...] after ingestion Consult toxicology or poison control ([phone]) for unknown ingestion time. Current interpretive data was last revised 2022. Blood 12/26/2023 5:49 AM CDT 12/26/2023 7:22 AM CDT us Ilya Mesa MD LAB BLOOD ORDERABLE S Final Result Performing Organization Address [facility] Co de Phone Number [facility] ([place]) 1 [facility] [place] [address] * Salicylate level (12/26/2023 5:49 AM CDT) Salicylate <5.0 <=5.0 mg/dL Comment: Interpretive Data Toxic: 30 mg/dL or greater. Current interpretive data was last revised 2022. Blood 12/26/2023 5:49 AM CDT 12/26/2023 7:22 AM CDT us Ilya Mesa MD LAB BLOOD ORDERABLE S Final Result [facility] [place]) 6 [facility] Department of Laboratories [place], [place] [id number] documented in this encounter Visit Diagnoses Diagnosis Bipolar affective disorder, current episode depressed, current episode severity unspecified (HCC)- Primary Acute cystitis without hematuria documented in this encounter Administered Medications Inactive Administered Medications - up to 3 most recent administrations Medication Order MAR Action Action Date Dose Rate Site DULoxetine DR (CYMBALTA) extended release capsule 60 mg 60 mg, oral, Daily, First dose on Mon12/26/23 at 0900, Capsule may be opened and contents mixed with applesauce or apple juice ONLY. Do not crush or chew capsule Given 12/26/2023 8:29 AM CDT 60 mg hydroCHLOROthiazide tablet 12.5 mg 12.5 mg, oral, Daily, First dose on Mon12/26/23 at 0900 Given 12/26/2023 8:29 AM CDT 12.5 mg hydrOXYzine (ATARAX) tablet 50 mg 50 mg, oral, Once, On Mon12/26/23 at 0938, For 1 dose Given 12/26/2023 9:48 AM CDT 50 mg irbesartan (AVAPRO) tablet 150 mg 150 mg, oral, Every 24 hours, First dose on Mon12/26/23 at 0900 Given 12/26/2023 8:29 AM CDT 150 mg levothyroxine (SYNTHROID) tablet 50 mcg 50 mcg, oral, Daily (early AM), First dose on Mon12/26/23 at 0620, Administer on an empty stomach, preferably 30 minutes before breakfast. Take 4 hours apart from antacids, iron and calcium products. Separate from tube feeds, if applicable. Given 12/26/2023 8:29 AM CDT 50 mcg metoprolol XL (TOPROL-XL) extended release tablet 50 mg 50 mg, oral, Daily, First dose on Mon12/26/23 at 0900, Tablets that are scored may be split, but do not crush, chew, dissolve, open or otherwise manipulate tablet/capsule. Given 12/26/2023 8:29 AM CDT 50 mg nitrofurantoin monohydrate (MACROBID) capsule 100 mg 100 mg, oral, 2 times daily, First dose on Mon12/26/23 at 0616, For 5 days, Take with food, Indications: Urinary Tract/Genitourinary InfectionIndications:Urinary Tract/Genitourinary Infection Given 12/26/2023 8:29 AM CDT 100 mg documented in this encounter Active and Recently Administered Medications Times are shown in CDT. Scheduled Medication Order 12/24/2023 12/25/2023 12/26/[address] (CYMBALTA) extended release capsule 60 mg 60 mg, oral, Daily, First dose on Mon12/26/23 at 0900, Capsule may be opened and contents mixed with applesauce or apple juice ONLY. Do not crush or chew capsule 828 (Given - Provid er: Bela Giles RN) hydroCHLOROthiazide tablet 12.5 mg(Linked Group 1) 12.5 mg, oral, Daily, First dose on Mon12/26/23 at 0900 08 (Given - Provid er: Bela Giles RN) hydrOXYzine (ATARAX) tablet 50 mg (COMPLETED) 50 mg, oral, Once, On Mon12/26/23 at 0938, For 1 dose 0948 (Given - Provid er: Bela Giles RN) irbesartan (AVAPRO) tablet 150 mg(Linked Group 1) 150 mg, oral, Every 24 hours, First dose on Mon12/26/23 at 0900 08 (Given - Provid er: Bela Giles RN) levothyroxine (SYNTHROID) tablet 50 mcg 50 mcg, oral, Daily (early AM), First dose on Mon12/26/23 at 0620, Administer on an empty stomach, preferably 30 minutes before breakfast. Take 4 hours apart from antacids, iron and calcium products. Separate from tube feeds, if applicable. 828 (Given - Provid er: Bela Giles RN) metoprolol XL (TOPROL-XL) extended release tablet 50 mg 50 mg, oral, Daily, First dose on Mon12/26/23 at 0900, Tablets that are scored may be split, but do not crush, chew, dissolve, open or otherwise manipulate tablet/capsule. 08 (Given - Provid er: Bela Giles RN) nitrofurantoin monohydrate (MACROBID) capsule 100 mg 100 mg, oral, 2 times daily, First dose on Mon12/26/23 at 0616, For 5 days, Take with food, Indications: Urinary Tract/Genitourinary Infection 08 (Given - Provid er: Bela Giles RN) traZODone (DESYREL) tablet 100 mg 100 mg, oral, Nightly, First dose on Mon12/26/23 at 2100 Linked Groups Order Group 1: irbesartan (AVAPRO) tablet 150 mgJump to med 150 mg, oral, Every 24 hours, First dose on Mon12/26/23 at 0900 And hydroCHLOROthiazide tablet 12.5 mgJump to med 12.5 mg, oral, Daily, First dose on Mon12/26/23 at 0900 documented in this encounter Orders Medications Ordered That Jose Alberto ht Not Have Been Administered Count Last Ordered Date First Ordered Date metFORMIN XR (GLUCOPHAGE XR) tablet 500 mg 1 12/26/2023 traZODone (DESYREL) tablet 100 mg 1 024 Consult Count Last Ordered Date First Orde red Date CONSULT TO BEH[facility]IORAL HEALTH [facility] 1 024 documented in this encounter Care Teams Critical Care Specialist Relationship Specialty Start Date End Date Daja Kern MD [address] [place] [address] PCP - General 09/10/19 documented as of this encounter
--- OUTSIDE RECORDS SUMMARY | 2024-03-03 19:37 | XMS_ITS | Encounter Summary ---
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
--- OUTSIDE RECORDS SUMMARY | 2024-03-03 19:37 | XMS_ITS | Encounter Summary ---
Author Organization [facility] Healthcare Address [address] [place] [address] Care Team Providers Care Heel Packer Name Role Phone Daja Kern MD Primary Care Provider [phone] Reason for Visit * Reason Comments PT Treatment * Consultation (Routine) - Authorized Specialty Diagnoses / Procedures Referred By Contac t Referred To Contact Physical Therapy Diagnoses Lumbar radiculopathy Deconditioned low back Ander Jules, ADITYA [address] [facility] [address] [place] [address] Phone: tel: fax: [facility] [place] [address] Phone: tel: fax: Referral ID Status Reason Start Date Expiration Date Visits Requested Visits Authorized [id number] Authorized Evaluate and Treat 11/08/2023 12/07/2024 24 13 Encounter Details Date Type Department Care Team (Late st Contact Info) Description 12/12/2023 4:45 PM CDT Therapy [facility] [place] [address] Alvarado Limon, PT Lumbar radiculopathy (Primary Dx); [...] on file 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 Lumbar radiculopathy 2. Deconditioned low back Ander Jules, ADITYA [address] [place] [address] Subjective: Alona reports continued pain in her low back and left hip. Pain: 4-5/10 Objective: Treatment Provided: Moist heat to low back Manual stretching to low back LTR Bridges SLR Hip adduction with ball squeeze Hip abduction with blue T-band Assessment: Tolerated treatment fairly well. Plan: Plan to continue as tolerated. Start Time: 1632 End Time: 1700 Alvarado Limon PT documented in this encounter [...] back documented in this encounter Care Teams Heel Packer Relationship Specialty Start Date End Date Daja Kern MD [address] [place] [address] PCP - General 09/10/19 documented as of this encounter
--- OUTSIDE RECORDS SUMMARY | 2024-03-03 19:37 | XMS_ITS | Encounter Summary ---
Author Organization [facility] Healthcare Address [address] [place] [address] Care Team Providers Care Groundskeeper Name Role Phone Daja Kern MD Primary Care Provider [phone] Reason for Referral * Diagnostic Imaging (Routine) - Closed Specialty Diagnoses / Procedures Referred By Contac t Referred To Contact Diagnoses Lumbar radiculopathy Procedures Imaging Lumbar/Sacral Selective Nerve Root INJ (TFE) Bilateral (37324) Hipolito Parikh MD PhD [address] [place] [address] Phone: tel:[phone] fax: [address] [phone] Referral ID Status Reason Start Date Expiration Date Visits Re quested Visits Authorized [id number] Closed 09/04/2023 10/03/2024 1 1 * MRI/CAT/PET Scan (Routine) - Closed Specialty Diagnoses / Procedures Referred By Contac t Referred To Contact Radiology Diagnoses Lumbar radiculopathy Procedures MRI Lumbar Spine WO Contrast Hipolito Parikh MD PhD [address] [place] [address] Phone: tel:[phone] fax: [address] [phone] Referral ID Status Reason Start Date Expiration Date Visits Re quested Visits Authorized [id number] Closed 09/04/2023 10/03/2024 1 1 Reason for Visit * Reason Comments Back Pain Encounter Details Date Type Department Care Team (Latest Contact Info) Description 09/04/2023 9:49 AM CDT - 09/04/2023 11:59 PM CDT Hospital Encounter [facility] [address] [facility] [address] [place] [address] Katrina Wilkes MD [address] [place] [address] Lumbar radiculopathy (Primary Dx); Sacroiliitis (HCC) Discharge Disposition: Discharge to home or self [...] on file Legal Sex 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 Gender Identity Not on file Sexual Orientation Not on file documented as of this encounter Last Filed Vital Signs Vital Sign Reading Time Taken Comments Blood Pressure 155/106 09/04/2023 10:12 AM CDT Pulse 93 09/04/2023 10:12 AM CDT Temperature 36.5 ??C (97.7 ??F) 09/04/2023 10:12 AM C DT Respiratory Rate 14 09/04/2023 10:12 AM CDT Oxygen Saturation 96% 09/04/2023 10:12 AM CDT Inhaled Oxygen Concentration - - Weight 127 kg (280 lb) 09/04/2023 10:12 AM CDT Height 157.5 cm (5' 2 ) 09/04/2023 10:12 AM CDT Body Mass Index 51.21 09/04/2023 10:12 AM CDT documented in this encounter Discharge Instructions * Patient Instructions* Leida Vargas RN - 09/04/2023 10:30 AM CDT [facility] DISCHARGE INSTRUCTIONS MEDICATIONS: [x] Continue your current home medications Start: Gabapentin 900 three times a day Dosing Schedule For: 1 tablet 3 times a day Week Morning Noon Bedtime 1 600 mg 600 mg 900 mg 2 900 mg 600 mg 900 mg 3 900 mg 900 mg 900 mg [x] Notify your pharmacy for refill(s) 7 days before you are out of your medication. [] Opioid (Narcotic) Agreement signed and patient received copy. [] Side Effects of Opioid Medications given to patient Today's visit: follow up DIET: [x] Resume normal diet [] See [facility] Post Discharge Procedure Information Sheet ACTIVITY: [x] Resume normal activity [] See [facility] Post Discharge Procedure Information Sheet REFERRALS: Physical Therapy [] [facility] ([phone]) [] [facility]) [] [facility] ([phone]) Option 1 [] [facility]) [] [facility] ([phone]) [] Other: Behavior Medicine [] Pain Psychologist, [facility] Please call to schedule appointment [phone] or [phone] Diagnostic Test(s): May get Radiographs performed in Radiation/X-Ray 6th floor, [address]. Lumbar MRI [x] Please call to schedule MRI or CT scan at [phone] [] Please call to schedule EMG at [phone] EDUCATION provided on the following: [] Spinal Cord Stimulator Education and DVD. Vendor: FOLLOW UP APPOINTMENTS: [] Return as needed [] Follow up appointment: We will contact you the next business day to obtain: [] An update on your condition [] Your Pain diary scores [x] Procedure at your next visit : LSNR at L5 INSTRUCTIONS before your next procedure: [] See [facility] Pre-Procedure Information Sheet [] Do not eat or drink for six (6) hours before the time/date of the procedure. [] Inquire with your prescribing provider if ok to hold blood thinner for ( ) days before procedure. [] Blood work required 2 hours before procedure: [x] Direct Entry Midwife needed for next procedure [x] Pre Procedure instructions will be sent through [employer] or by phone two working days prior to procedure. *Need help with [employer]ink? Call [phone]. Patient provided information and repeated back with understanding. If you need to reach us: For any questions about your procedure, please call the Pain Management Center [phone] (M-F) (8am-4pm) If you need urgent attention after 5 pm and weekends: Call the [facility] Steward at [phone] and ask for the Pain Service doctor loss prevention associate. documented in this encounter Medications at Time [...] 08/21/2023 4 documented as of this encounter Ordered Prescriptions Prescription Sig Dispense Quantity Refills Last Filled Start Date End Date gabapentin (NEURONTIN) 600 mg tabletIndications:Eulalio umbar radiculopathy Take 1.5 tablets (900 mg total) by mouth 3 (three) times a day 135 tablet 09/04/2023 4 documented in this encounter Discharge Disposition Disposition Code Departure Means Destination Discharge to home or self care documented in this encounter Progress Notes * Hipolito Parikh MD PhD - 09/04/2023 10:30 [...] pain. Patient was initially seen at the [facility] on 08/25/2022. Patient's High School Director, David from [facility] attended today's visit. She presents with low [...] interventional injections with Dr. Marty Holcomb with [facility] 1-2 years ago Imagin09/10/2019 [...] daily DULoxetine DR (CYMBALTA) 60 mg capsule tiZANidine (ZANAFLEX) 4 mg [...] Date Anemia Anxiety 1989 Arthritis Bipolar disorder ([facility]) 2021 Depression Diabetes mellitus ([facility]) 2023 Fractures Gastric reflux Hypercholesteremia Hypertension Irritable bowel syndrome 2019 Low back pain 2002 Morbid obesity ([facility]) 2001 Sleep apnea 2009 Substance abuse ([facility]) ([facility]) 1992 Thyroid disease Type 2 diabetes mellitus ([facility]) 2023 Past Surgical History: Procedure Laterality Date [...] loading positive bilaterally SI joint tenderness, OFE, Phoenix's, Compression tests positive bilaterally Assessment Encounter Diagnoses [...] Clinical Fellow, Pain Management Department of Anesthesiology [facility] [place] 09/04/23 Cosigned by Katrina Wilkes MD at 09/05/2023 10:44 AM CDT Associated attestation - Katrina Wilkes MD - 09/05/2023 10:44 AM CDT I have seen and examined the patient. I agree with the findings and plan of care as documented in the resident/fellow's note. * Leida Vargas RN - 09/04/2023 10:30 AM CDT Escorted patient to exam room. Obtained vital signs. Reviewed patient's allergies and current medications. Obtained and verified patient's detailed medical/surgical history. Confirmed the reason for visit with the patient. Obtained the following screening assessments: [x] Modified Oswestry Low Back Pain Questionnaire [] PMC Intake Questionnaire [] PMC Follow up Questionnaire [] Fall Risk Assessment (Jeannine Mike Steadi) [] Depression/Anxiety Assessment (GAD7, PHQ-9, Orem Suicide, Garsia Depression) [] Disability Scale [] [...] assistance in patient physical exam or assessment Vital Signs Temp: 97.7 ??F (36.5 ??C) Pulse: 93 Resp: 14 BP: (!) 155/106 SpO2: 96 % Post-visit transport confirmed with the patient. [...] documented as of this encounter Results * Imaging Lumbar/Sacral Selective Nerve Root INJ (TFE) Bilateral (59561) (09/27/2023 12:25 PM CDT) Narrative [facility] - 09/27/2023 12:25 PM CDT The images from this study are not interpreted by Radiology. ??Please refer to the physician's procedure / OR operative note. us Hipolito Parikh MD PhD IMG PAIN MGMT PROCEDURE S Final Result [facility] * MRI Lumbar Spine WO Contrast (09/18/2023 [...] 12:43 PM - Electronically signed by ??Sawyer MAGUIRE: TING D: ??09/18/2023 12:43 PM T: ??09/18/2023 12:43 PM Report ID: [id number] Reading Location: ??[id number] Procedure Note Sawyer Ramirez MD - 09/18/2023 [...] Sawyer Ramirez M.D. TING: TING Report ID: [id number] Reading Location: [place] [address] Hipolito Parikh MD PhD IMG MRI PROCEDURES Radha l Result documented in this encounter Visit Diagnoses Diagnosis Lumbar radiculopathy- Primary Thoracic or lumbosacral neuritis or radiculitis, unspecified Sacroiliitis (HCC) Sacroiliitis, not elsewhere classified Lumbar radiculopathy Thoracic or lumbosacral neuritis or radiculitis, unspecified Lumbar radiculopathy Thoracic or lumbosacral neuritis or radiculitis, unspecified documented in this encounter Discontinued Medications Medication Sig Discontinue Reason Start Date End Da te gabapentin (NEURONTIN) 600 mg tabletIndications:Lumbar radiculopathy Take 1 tablet (600 mg total) by mouth 3 (three) times a day 08/21/2023 09/04/2023 documented as of this encounter Historical Medications * This list may reflect changes made after this encounter. ARIPiprazole (ABILIFY) 10 mg tablet Take 1 tablet (10 mg total) by mouth daily added in this encounter Care Teams Groundskeeper Relationship Specialty Start Date End Date Daja Kern MD [address] [place] [address] PCP - General 09/10/19 documented as of this encounter
--- OUTSIDE RECORDS SUMMARY | 2024-03-03 19:38 | XMS_ITS | Encounter Summary ---
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 (HCC) There may be grammatical errors in this note due to use of voice recognition software. DISPOSITION:DISCHARGED Lily Villarreal MD 06/01/222302 Lily Villarreal MD 06/02/22 190 * Iker Langston RN - 06/01/2022 7:27 PM CDT Arrived by EMS with suicidal ideations. Plan was to take every drug she could find. Admits to crackcocaine use 2 days ago. Asking for detox help also. * Jose Phipps RN - 06/01/2022 7:23 PM CDT Bed: ED14 Expected date: Expected time: Means of arrival: Comments: Jose Rojo RN 06/01/221922 documented in this encounter Miscellaneous Notes * ED Re-evaluation Note - Alida Denton MD - 06/01/2022 11:11 PM CDT ED Re-evaluation ED Course as of 06/02/22 0607 Time: 06/01 2300 Comment: Patient is medically cleared for psychiatric evaluation By: Lily Villarreal MD Time: 06/02 2303 Comment: Patient care turned over to Dr. Denton at end of shift psychiatric evaluation pending. By: Lily Villarreal MD Time: 06/01 9526 Value: ECG 12 lead Comment: Normal sinus rhythm with a normal rate of 97, normal intervals, left axis deviation, possible incomplete right bundle, normal in nonspecific ST segments T-waves. No STEMI or equivalent appreciated. No previous for comparison available By: Alida Denton MD Time: 06/02 9 Comment: The patient was evaluated by psych who recommends voluntary inpatient placement. She will begin looking for an accepting facility when the patient's urine has resulted. By: Alida Denton MD Time: 06/02 558 Comment: Dr. Thornton at [facility] accepted the patient for transfer By: Alida Denton MD Time: 06/02 601 Value: Epithelial cells, squamous, ur(!): 6-10 Comment: The patient, when asked specifically about UTI symptoms does say that she is having some dysuria for about the last week. No vomiting or fever. On abdominal exam she has no pain or rebound or guarding. Patient has reassuring vital signs. Out of abundance of caution will treat for possible cystitis By: Alida Denton MD Time: 06/02 601 Value: Nitrite, ur: Negative Comment: UA is contaminated and nondiagnostic By: Alida Denton MD Impression: 1. Suicidal ideations 2. Medical clearance for psychiatric admission 3. Abnormal urinalysis 4. Cocaine use 5. BMI 45.0-49.9, adult (HCC) Disposition: Transfer Alida Denton MD 06/02/22 0608 documented in this encounter Plan of Treatment Not on file documented as of this encounter Procedures Procedure Name Priority Date/Time Associated Diagnosis Comments POCT HCG, URINE Routine 06/02/2022 3:34 AM CDT URINALYSIS AND REFLEX TO MICROSCOPIC AND CULTURE STAT 06/02/2022 12:15 AM CDT DRUGS OF ABUSE SCREEN, URINE WITHOUT CONFIRMATION STAT 06/02/2022 12:15 AM CDT URINALYSIS, MICROSCOPIC ONLY STAT 06/02/2022 12:15 AM CDT URINE CULTURE STAT 06/02/2022 12:15 AM CDT ECG 12-LEAD STAT 06/01/2022 11:15 PM CDT COVID-19 CORONAVIRUS RNA Routine 06/01/2022 9:37 PM CDT EGFR STAT 06/01/2022 9:37 PM CDT DIFFERENTIAL AUTO STAT 06/01/2022 9:3 7 PM CDT THYROID FUNCTION CASCADE STAT 06/01/2022 9:37 PM CDT CBC WITH AUTO DIFFERENTIAL STAT 06/01/2022 9:37 PM CDT ETHANOL STAT 06/01/2022 9:37 PM CDT ACETAMINOPHEN LEVEL STAT 06/01/2022 9 :37 PM CDT SALICYLATE LEVEL STAT 06/01/2022 9:37 PM CDT COMPREHENSIVE METABOLIC PANEL STAT 06/01/2022 9:37 PM CDT XR CHEST 1 VIEW ED 06/01/2022 9:11 PM CDT documented in this encounter Results * POCT hCG, urine (06/02/2022 3:34 AM CDT) HCG, ur, POC Negative Lot Number [id number] QC Backgroud Clear Acceptable QC Control Line Acceptable Urine 06/02/2022 3:34 AM CDT us Lily Villarreal MD POINT OF CARE TEST ORDERABLES Final Result * (ABNORMAL) Urine culture Urine (06/02/2022 12:15 AM CDT) Report Final Report: Greater than or equal to 100,000 colonies/mL of Escherichia coli (.) [facility] CROW[facility] (TAN) Comment:Testing performed by : [facility], [address] [place]., [address] Organism ESCHERICHIA COLI [facility] CROW[facility] (TAN) Urine 06/02/2022 12:1 5 AM CDT 06/02/2022 3:32 AM CDT Narrative LA[facility] CROWLEY (TAN) - 06/05/2022 2:14 PM CDT Urine culture reflexed based upon urinalysis results. Testing performed by [facility] Microbiology Laboratory ([phone]) Organism Antibiotic Method Susceptibility Escherichia coli Ampicillin INTERPRETATION Resistant Escherichia coli Cefazolin INTERPRETATION Susceptible Escherichia coli Nitrofurantoin INTERPRETATION Susceptible Escherichia coli Gentamicin INTERPRETATION Susceptible Escherichia coli Trimethoprim with Sulfamethoxazole IN TERPRETATION Resistant Escherichia coli Meropenem INTERPRETATION Susceptible Escherichia coli Cefepime INTERPRETATION Susceptible Escherichia coli Ciprofloxacin INTERPRETATION Susceptible Escherichia coli Ceftazidime INTERPRETATION Susceptible Escherichia coli Ceftriaxone INTERPRETATION Susceptible Escherichia coli Piperacillin/Tazobactam INTERPRETATIO N Susceptible Escherichia coli Cephalexin INTERPRETATION Susceptible Escherichia coli Cefuroxime-axetil INTERPRETATION Susceptible Escherichia coli Cefdinir INTERPRETATION Susceptible us Lily Villarreal MD LAB MICROBIOLOGY - GENERAL ORDERABLES Final Result [facility] CROW[facility] (TAN) 1 [facility] Department [place] [address] * (ABNORMAL) Urinalysis, microscopic only (06/02/2022 12:15 AM CDT) WBC, ur 11-20(A) 0 - 5 /HPF [facility] ([facility]) RBC, ur 0-2 0 - 2 /HPF [facility] ([place]) Epithelial cells, squamous, ur 6-10(A) 0 - 5 /HPF [facility] ([place]) Bacteria, ur 4+(A) [facility] ([place]) Mucous, ur Present(A) [facility] (TAN) Culture Reflex Comment Reflex to urine culture will be performed. [facility] ([place]) Urine 06/02/2022 12:1 5 AM CDT 06/02/2022 12:17 AM CDT Lily Villarreal MD LAB URINE ORDERABLE S Final Result [facility] ([place]) 1 [facility] Department [place] [address] * (ABNORMAL) Urinalysis reflex to microscopic and culture Urine (06/02/2022 12:15 AM CDT) Color, ur Yellow Yellow [facility] ([place]) Clarity, ur Turbid(A) Clear [facility] ([place]) Specific gravity, ur 1.020 1.003 - 1.030 [facility] ([place]) pH, urine 7.0 [facility] ([place]) Protein, ur ql Trace Negative [facility] ([place]) Glucose, ur ql Negative Negative [facility] ([place]) Ketones, ur Negative Negative [facility] ([place]) Bilirubin, ur Negative Negative [facility] ([place]) Blood, ur Negative Negative [facility] ([place]) Urobilinogen, ur 2.0(A) <2.0 mg/dL [facility] ([place]) Nitrite, ur Negative Negative [facility] ([place]) Leukocyte esterase, ur 2+(A) Negative [facility] ([place]) UA reflex comment Reflex to microscopic UA will be performed. [facility] ([place]) Urine 06/02/2022 12:1 5 AM CDT 06/02/2022 12:17 AM CDT Narrative [facility] ([facility]) - 06/02/2022 12:44 AM CDT ?? Urine pH is affected by diet, medications, systemic acid-base disturbances, and renal tubular function. ??pH may affect urinary stone formation. ??For example, urine pH below 6.0 may help reduce the tendency for calcium phosphate stones and pH greater than 6.0 may reduce the tendency for uric acid stone formation. Source: [employer]. Last revised 03-09-2017 Lily Villarreal MD LAB MICROBIOLOGY - GENERAL ORDERABLES Final Result LAITH KEO (TAN) 1 [facility] Department [place] [address] * (ABNORMAL) Drugs of Abuse Screen, Urine without Confirmation (06/02/2022 12:15 AM CDT) Pathologist [facility] Amphetamine, ur Not Detected CutOff 500ng/mL LA[facility] CROWLEY (TAN) Comment: Interpretive Data - Amphetamines: ??Samples containing greater than 500 ng/mL d-methamphetamine ??or other cross-reacting amphetamine compounds are reported as positive. ??Amphetamine immunoassays are subject to significant false positive rates due to cross-reactivity of non-amphetamine drugs. Current Interpretive Data was last reviewed 2018. Barbiturates, ur Not Detected CutOff 200ng/mL [facility] CROW[facility] (TAN) Comment: Interpretive Data - Barbiturates: ??Samples containing greater than 200 ng/mL secobarbital or other cross-reacting barbiturate compounds are reported as positive. ??False positive and false negative results are possible. Current Interpretive Data was last reviewed 2018. Benzodiazepines, ur Not Detected CutOff 100ng/mL LA[facility] CROW[facility] (TAN) Comment: Interpretive Data - Benzodiazepines: ??Samples containing greater than 100 ng/mL nordiazepam or other cross-reacting compounds are reported as positive. ?? False positive and false negative results are possible. ?? Current Interpretive Data was last reviewed 2018. Cannabinoids, ur Not Detected CutOff 50 ng/mL [facility] ([facility]) Comment: Interpretive Data - Cannabinoids: ??Samples containing greater than 50 ng/mL delta-9 THC -COOH or other cross-reacting compounds are reported as positive. ??False positive and false negative results are possible. ?? Current Interpretive Data was last reviewed 2018. Cocaine, ur Detected(A) CutOff 150ng/mL [facility] ([facility]) Comment: Interpretive Data - Cocaine: ??Samples containing greater than 150 ng/mL benzoylecgonine or other cross-reacting compounds are reported as positive. False positive and false negative results are possible. Current Interpretive Data was last reviewed 2018. Fentanyl, Ur Not Detected Cutoff 1 ng/mL [facility] (T[facility]) Comment: Interpretive Data - Fentanyls: ??Samples containing greater than 1 ng/mL fentanyl or other cross-reacting fentanyl compounds are reported as detected. ??False positive and false negative results are possible. Current Interpretive Data was last reviewed 2018. Methadone, ur Not Detected CutOff 300ng/mL [facility] (T[facility]) Comment: Interpretive Data - Methadone: ??Samples containing greater than 300 ng/mL d,l-methadone or other cross-reacting compounds are reported as positive. ??False positive and false negative results are possible. Current Interpretive Data was last reviewed 2018. Opiates, ur Not Detected CutOff 300ng/mL [facility] (T[facility]) Comment: Interpretive Data - Opiates: ??Samples containing greater than 300 ng/mL morphine or other cross-reacting compounds are reported as positive. ??False positive and false negative results are possible. Current Interpretive Data was last reviewed 2018. Oxycodone, ur Not Detected CutOff 100ng/mL [facility] (T[facility]) Comment: Interpretive Data - Oxycodone: ??Samples containing greater than 100 ng/mL oxycodone or other cross-reacting compounds are reported as positive. ??False positive and false negative results are possible. ?? Current Interpretive Data was last reviewed 2018. Phencyclidine, ur Not Detected CutOff 25 ng/mL [facility] ([facility]) Comment: Interpretive Data - Phencyclidine: ??Samples containing greater than 25 ng/mL phencyclidine or other cross-reacting compounds are reported as positive. ??False positive and false negative results are possible. ?? Current Interpretive Data was last reviewed 2018. Urine Creatinine 146 mg/dL [facility] (TAN) Comment: Interpretive Data Urine Creatinine: < 10 mg/dL is extremely dilute = or > 10 but < 20 mg/dL is dilute = or > 20 mg/dL is normal Current Interpretive Data was last revised on 2017. Urine 06/02/2022 12:1 5 AM CDT 06/02/2022 12:17 AM CDT Narrative [facility] (T[facility]) - 06/02/2022 12:43 AM CDT Drug of Abuse screening is performed by immunoassay for medical purposes only. ??This is not to be used for Pain Management purposes. Lily Villarreal MD LAB URINE ORDERABLE S Final Result Performing Organization Address City/[facility]/ZIP Co de Phone Number [facility] ([place] 1 [facility] Department [place] [address] * ECG 12 lead (06/01/2022 11:15 PM CDT) 06/01/2022 11:1 5 PM CDT Narrative [facility] - 06/02/2022 8:45 AM CDT Vent Rate: 97 bpm RR Interval: 615 msec [place] Interval: 128 msec QRS Duration: 93 msec QT Interval: 363 msec QTC Interval: 418 msec P-R-T [place]: 135 - -28 - 126 degrees SINUS RHYTHM POSSIBLE LEFT ATRIAL ENLARGEMENT ??[-0.1mV P-WAVE IN V1/V2] BORDERLINE LEFT AXIS DEVIATION ??[QRS AXIS < -20] POSSIBLE RIGHT VENTRICULAR CONDUCTION DELAY ??[RSR (QR) IN V1/V2] LEFT VENTRICULAR HYPERTROPHY AND ST-T CHANGE ??[VOLTAGE CRITERIA PLUS ST/T ABNORMALITY] ABNORMAL ECG Electronically Signed By: Jabari Mills MD Lily Villarreal MD ECG ORDERABLES Fin al Result Performing Organization Address [facility] Co de Phone Number [facility] * eGFR (06/01/2022 9:37 PM CDT) eGFR 99 mL/min/1. 73 m2 LA[facility] KEO (TAN) Comment: Interpretive Data Reference Interval Normal ?>/= [...] interpretive data was last reviewed 2020. Blood 06/01/2022 9:37 PM CDT 06/01/2022 9:38 PM CDT Lily Villarreal MD LAB BLOOD ORDERABLE S Final Result [facility] ([place]) 1 [facility] Department of Laboratories [place], [place] [id number] * (ABNORMAL) Differential, auto (06/01/2022 9:37 PM CDT) Neutrophil abs 7.3(H) 1.7 - 6.5 K/cumm [facility] ([facility]) Imm gran abs 0.1 0.0 - 0.1 K/cumm [facility] ([place]) Lymphocyte abs 1.5 0.8 - 3.3 K/cumm [facility] ([place]) Monocyte abs 0.5 0.2 - 0.8 K/cumm [facility] ([place]) Eosinophil abs 0.2 0.0 - 0.5 K/cumm [facility] ([place]) Basophil abs 0.0 0.0 - 0.1 K/cumm [facility] ([place]) Neutrophil pct 76.3 % [facility] (TAN) Comment: Interpretive Data Percent cell count reference ranges are not reported, since discordance with absolute values may lead to misinterpretation of CBC data. Current Interpretive Data was last revised on 2017. Imm gran pct 0.5 % [facility] ([facility]) Comment: Interpretive Data Percent cell count reference ranges are not reported, since discordance with absolute values may lead to misinterpretation of CBC data. Current Interpretive Data was last revised on 2017. Lymphocyte pct 15.4 % [facility] ([facility]) Comment: Interpretive Data Percent cell count reference ranges are not reported, since discordance with absolute values may lead to misinterpretation of CBC data. Current Interpretive Data was last revised on 2017. Monocyte pct 5.0 % [facility] ([place]) Comment: Interpretive Data Percent cell count reference ranges are not reported, since discordance with absolute values may lead to misinterpretation of CBC data. Current Interpretive Data was last revised on 2017. Eosinophil pct 2.5 % [facility] ([facility]) Comment: Interpretive Data Percent cell count reference ranges are not reported, since discordance with absolute values may lead to misinterpretation of CBC data. Current Interpretive Data was last revised on 2017. Basophil pct 0.3 % [facility] ([place]) Comment: Interpretive Data Percent cell count reference ranges are not reported, since discordance with absolute values may lead to misinterpretation of CBC data. Current Interpretive Data was last revised on 2017. Blood 06/01/2022 9:37 PM CDT 06/01/2022 9:38 PM CDT Lily Villarreal MD LAB BLOOD ORDERABLE S Final Result LA[facility] CROW[facility] (TAN) 1 [facility] Department [place] [address] * COVID-19 Coronavirus RNA Nasopharyngeal (06/01/2022 9:37 PM CDT) COVID-19 RNA Negative Negative [facility] (TAN) Nasopharyngeal 06/01/2022 9: 37 PM CDT 06/01/2022 9:38 PM CDT Narrative [facility] (TAN) - 06/01/2022 10:10 PM CDT Is the patient experiencing any symptoms consistent with COVID (eg. Fever, cough, shortness of breath)?->No What is the reason for testing?->Screening prior to admission to [facility] unit??(Rapid) ??Interpretive data: Synonyms for this test include: PCR and NAAT . ??This test is performed using the [employer] Xpert Xpress plus assay. This is a real-time RT-PCR test intended for the qualitative detection of nucleic acid from the SARS-CoV-2. This assay has been reviewed by the FDA for Emergency Use Authorization (EUA). The performance characteristics have been verified by the performing laboratory. Results must be considered in the clinical context and a negative result does not rule out infection. Interpretive data last revised July 28, 2021. ??Interpretive data: Synonyms for this test include: PCR and NAAT . ??This test is performed using the Ze[employer] Xpert Xpress plus assay. This is a real-time RT-PCR test intended for the qualitative detection of nucleic acid from the SARS-CoV-2. This assay has been reviewed by the FDA for Emergency Use Authorization (EUA). The performance characteristics have been verified by the performing laboratory. Results must be considered in the clinical context and a negative result does not rule out infection. Interpretive data last revised July 28, 2021. Lily Villarreal MD LAB MICROBIOLOGY - GENERAL ORDERABLES Final Result LA[facility] CROWLEY (TAN) 1 [facility] Department [place] [address] * Salicylate level (06/01/2022 9:37 PM CDT) Salicylate <5.0 4.0 - 29.0 mg/dL LAITH CROWLEY (TAN) Comment: Interpretive Data Therapeutic range: ??4-29 mg/dl ?? Toxic: ?30-70 mg/dl ? Lethal: ? Greater than 70 mg/dl Current interpretive data was last revised on 2014. Blood 06/01/2022 9:37 PM CDT 06/01/2022 9:38 PM CDT Lily Villarreal MD LAB BLOOD ORDERABLE S Final Result LA[facility] CROWLEY (TAN) 1 [facility] [place] [address] * Acetaminophen level (06/01/2022 9:37 PM CDT) Acetaminophen <15.0 10.0 - 30.0 mcg/mL LAITH CROWLEY (TAN) Comment: Markedly elevated levels of Acetaminophen and it's metabolites may lead to false low test results for cholesterol, HDL, triglycerides and uric acid with the manufacturers test methods used by our lab. Interpretive Data Toxic if greater than 150 mcg/ml at 4 hrs after ingestion Toxic if greater than 50 mcg/ml at 12 hrs after ingestion Current interpretive data was last revised on 2014 Blood 06/01/2022 9:37 PM CDT 06/01/2022 9:38 PM CDT us Lily Villarreal MD LAB BLOOD ORDERABLE S Final Result Performing Organization Address [facility] Co de Phone Number LAITH CROWLEY (TAN) 1 [facility] [place] [place] [address] * TSH reflex to free T4 (06/01/2022 9:37 PM CDT) TSH 1.45 0.30 - 4.20 mcIUnit/mL LA[facility] CROW[facility] (TAN) Blood 06/01/2022 9:37 PM CDT 06/01/2022 9:38 PM CDT Lily Villarreal MD LAB BLOOD ORDERABLE S Final Result [facility] KEO (TAN) 1 [facility] [place] [address] * (ABNORMAL) Comprehensive metabolic panel (06/01/2022 9:37 PM CDT) Sodium 142 135 - 145 mmol/L [facility] ([facility]) Potassium, pl 3.5 3.3 - 4.9 mmol/L [facility] ([facility]) Chloride 102 97 - 110 mmol/L [facility] ([place]) CO2 33(H) 22 - 32 mmol/L [facility] ([place]) Anion gap 7 2 - 15 mmol/L [facility] ([place]) BUN 13 8 - 25 mg/dL [facility] ([place]) Creatinine 0.74 0.60 - 1.10 mg/dL [facility] ([facility]) Glucose 132 70 - 199 mg/dL [facility] ([place]) [...] classification and Diagnosis of Diabetes Diabetes Care 202; 46: S19-S40. Current interpretive data was last revised 2022. Calcium 8.9 8.5 - 10.3 mg/dL [facility] ([place]) Bilirubin, total 0.2 0.1 - 1.2 mg/dL [facility] ([place]) Protein, pl 6.7 6.5 - 8.5 g/dL [facility] ([place]) Albumin 3.6 3.5 - 5.0 g/dL [facility] ([place]) Alk phos 86 40 - 130 Units/L [facility] ([place]) ALT 13 7 - 45 Units/L [facility] ([facility]) AST 13 10 - 45 Units/L [facility] ([place]) Blood 06/01/2022 9:37 PM CDT 06/01/2022 9:38 PM CDT us Lily Villarreal MD LAB BLOOD ORDERABLE S Final Result [facility] ([place]) 1 [facility] Department [place] [address] * (ABNORMAL) CBC with auto differential (06/01/2022 9:37 PM CDT) WBC 9.5 3.8 - 9.9 K/cumm [facility] ([place]) Hgb 13.2 11.9 - 15.5 g/dL [facility] ([place]) Hct 41.7 35.6 - 45.5 % [facility] ([place]) Plt 222 150 - 400 K/cumm [facility] ([place]) MPV 11.6 9.1 - 12.3 fL [facility] ([place]) RBC 4.46 3.90 - 5.20 M/cumm [facility] ([place]) MCV 93.5 81.3 - 96.4 fL [facility] ([place]) MCH 29.6 27.1 - 33.3 pg [facility] ([place]) MCHC 31.7(L) 32.3 - 35.7 g/dL [facility] ([place]) RDW CV 14.1 11.1 - 14.9 % [facility] ([place]) RDW SD 47.4 35.7 - 48.1 fL [facility] ([place]) NRBC abs 0.00 0.00 - 0.01 K/cumm [facility] ([place]) Blood (Blood, Venous) 06/01/2022 9:37 PM CDT 06/01/2022 9:38 PM CDT us Lily Villarreal MD LAB BLOOD ORDERABLE S Final Result [facility] CROW[facility] ([place]) 1 [facility] [place] [address] * Ethanol (06/01/2022 9:37 PM CDT) Ethanol <10 <=10 mg/dL [facility] (T[facility]) Comment: Interpretive Data Legal limit of intoxication > or = 80 mg/dL Levels > or = 400 mg/dL are potentially TOXIC. Current interpretive data was last revised on 2018. Blood 06/01/2022 9:37 PM CDT 06/01/2022 9:38 PM CDT us Lily Villarreal MD LAB BLOOD ORDERABLE S Final Result [facility] ([place]) 1 [facility] Department [place] [address] * XR Chest 1 Vw Portable (06/01/2022 9:11 PM CDT) Anatomical Region Laterality Modality Body, Chest N/A Computed Radiogr aphy 06/01/2022 9:15 PM CDT Narrative 06/01/2022 9:17 PM CDT EXAM DESCRIPTION: ?? XR CHEST 1 VIEW REASON FOR STUDY: ?? Medical clearance ?? Arrived by EMS with suicidal ideations. Plan was to take every drug she could find. Admits to crack cocaine use 2 days ago. Asking for detox help also ?? TECHNIQUE: ?? Frontal ??radiographic view of the chest acquired. COMPARISON: ?? 12/24/2010, 11/18/2019 FINDINGS: LUNGS/PLEURA: Slight bibasilar atelectasis. ??The lungs are otherwise clear. ?? No focal consolidation or pneumothorax. No pleural effusion. HEART/MEDIASTINUM: ?? Heart size is normal. Normal mediastinal and hilar contours. HARDWARE/LINES/TUBES: ?? None. BONES: ?? No acute findings. IMPRESSION: 1. ?? No acute cardiopulmonary abnormality. THIS IS AN ELECTRONICALLY VERIFIED FINAL REPORT 06/01/2022 9:17 PM - Electronically signed by ??Nela August M.D. AT: AT D: ??06/01/2022 9:17 PM T: ??06/01/2022 9:17 PM Report ID: [id number] Reading Location: ??[id number] Procedure Note Nela August MD - 06/01/2022 EXAM DESCRIPTION: XR CHEST 1 VIEW REASON FOR STUDY: Medical clearance Arrived by EMS with suicidal ideations. Plan was to take every drug shecould find. Admits to crack cocaine use 2 days ago. Asking for detox help also TECHNIQUE: Frontal radiographic view of the chest acquired. COMPARISON: 12/24/2010, 11/18/2019 FINDINGS: LUNGS/PLEURA: Slight bibasilar atelectasis. The lungs are otherwiseclear. No focal consolidation or pneumothorax. No pleural effusion. HEART/MEDIASTINUM: Heart size is normal. Normal mediastinal and hilar contours. HARDWARE/LINES/TUBES: None. BONES: No acute findings. IMPRESSION: 1. No acute cardiopulmonary abnormality. THIS IS AN ELECTRONICALLY VERIFIED FINAL REPORT 06/01/2022 9:17 PM - Electronically signed by Nela August M.D. AT: AT Report ID: [id number] Reading Location: [place] [address] Lily Villarreal MD IMG XR PROCEDURES F inal Result documented in this encounter Visit Diagnoses Diagnosis Suicidal ideations- Primary Medical clearance for psychiatric admission Abnormal urinalysis Other nonspecific finding on examination of urine Cocaine use BMI 45.0-49.9, adult (HCC) documented in this encounter Administered Medications Inactive Administered Medications - up to 3 most recent administrations Medication Order MAR Action Action Date Dose Rate Site cefTRIAXone (ROCEPHIN) 250 mg/mL intramuscular injection 500 mg 500 mg, intramuscular, Once, On Natalie 06/02/22 at 0608, For 1 dose, Dilute vial with 1.8 mL of sterile water for a concentration of 250 mg/mL., Indications: Urinary Tract/Genitourinary InfectionIndications:Urinary Tract/Genitourinary Infection Given 06/02/2022 6:22 AM CDT 500 mg Right Deltoid diazePAM (VALIUM) tablet 10 mg 10 mg, oral, Once, On Natalie 06/02/22 at 1359, For 1 dose Given 06/02/2022 2:22 PM CDT 10 mg diazePAM (VALIUM) tablet 5 mg 5 mg, oral, Once, On Mon06/01/22 at 2230, For 1 dose Given 06/01/2022 10:57 PM CDT 5 mg hydrOXYzine (VISTARIL) capsule 50 mg 50 mg, oral, Once, On Natalie 06/02/22 at 1325, For 1 dose Given 06/02/2022 1:38 PM CDT 50 mg ketorolac (TORADOL) 30 mg/mL (1 mL) injection 30 mg 30 mg, intramuscular, Once, On Mon06/01/22 at 2230, For 1 dose Given 06/01/2022 10:57 PM CDT 30 mg Right Deltoid documented in this encounter Active and Recently Administered Medications Times are shown in CDT. Scheduled Medication Order 05/31/2022 06/01/2022 06/02/2022 cefTRIAXone (ROCEPHIN) 250 mg/mL intramuscular injection 500 mg (COMPLETED) 500 mg, intramuscular, Once, On Natalie 06/02/22 at 0608, For 1 dose, Dilute vial with 1.8 mL of sterile water for a concentration of 250 mg/mL., Indications: Urinary Tract/Genitourinary Infection 0622 (Given - Provid er: Joy Chan RN) diazePAM (VALIUM) tablet 10 mg (COMPLETED) 10 mg, oral, Once, On Natalie 06/02/22 at 1359, For 1 dose 1422 (Given - Provid er: Tamanna Licona RN) diazePAM (VALIUM) tablet 5 mg (COMPLETED) 5 mg, oral, Once, On Mon06/01/22 at 2230, For 1 dose 2257 (Given - Provider: Joy Chan RN) hydrOXYzine (VISTARIL) capsule 50 mg (COMPLETED) 50 mg, oral, Once, On Natalie 06/02/22 at 1325, For 1 dose 1338 (Given - Provid er: Tamanna Licona RN) ketorolac (TORADOL) 30 mg/mL (1 mL) injection 30 mg (COMPLETED) 30 mg, intramuscular, Once, On Mon06/01/22 at 2230, For 1 dose 2257 (Given - Provider: Joy Chan RN) documented in this encounter Orders Consult Count Last Ordered Date First Orde red Date CONSULT TO [facility] 1 023 documented in this encounter Care Teams Home Theatre Technician Relationship Specialty Start Date End Date Daja Kern MD [address] [place] [address] PCP - General 09/10/19 documented as of this encounter
--- OUTSIDE RECORDS SUMMARY | 2024-03-03 19:38 | XMS_ITS | Encounter Summary ---
Author Organization [facility] Healthcare Address [address] [place] [address] Care Team Providers Care Cylinder Head Assembler Name Role Phone Daja Kern MD Primary Care Provider [phone] Reason for Visit * Reason Comments Back Pain Low back pain Leg Pain Burning in left calf Encounter Details Date Type Department Care Team (Latest Contact Info) Description 02/07/2023 11:43 AM WARP DYEING VAT TENDER - 02/07/2023 11:59 PM [facility] Hospital Encounter [facility] [address] [place] [address] Katrina Wilkes MD [address] [facility] [address] [place] [address] Lumbar radiculopathy Discharge Disposition: Discharge to home or self care Social History Tobacco Use Types Packs/Day Years Used Date Smoking Tobacco: Never Passive Smoke Exposure: Current Smokeless Tobacco: Never Alcohol Use Standard Drinks/Week Comments No 0 (1 standard drink = 0.6 oz pur e alcohol) AUDIT-C Answer Date Recorded Q1: How often do you have a drink containing alcohol? Monthly or less 02/07/2023 Q2: How many drinks containi ng alcohol do you have on a typical day when you are drinking? Patient does not drink Q3: How often do you have si x or more drinks on one occasion? Never 02/07/2023 Hunger Vital Sign Answer Date Recorded Within the past 12 months, y ou worried that your food would run out before you got the money to buy more. Never true 08/26/19 23 Within the past 12 months, t he food you bought just didn't last and you didn't have money to get more. Never true 08/25/2022 Personal Safety Answer Date Recorded Getting School Help Needed Denies 02/07 Comments No Sex and Gender Information Value Date Recorded Sex Assigned at Not on file Legal Sex Female 6:59 AM WARP DYEING VAT TENDER Gender Identity Not on file Sexual Orientation Not on file documented as of this encounter Last Filed Vital Signs Vital Sign Reading Time Taken Comments Blood Pressure 156/96 02/07/2023 12:18 PM WARP DYEING VAT TENDER Pulse 92 02/07/2023 12:18 PM WARP DYEING VAT TENDER Temperature 36.5 ??C (97.7 ??F) 02/07/2023 12:[address] Respiratory Rate 18 02/07/2023 12:18 PM WARP DYEING VAT TENDER Oxygen Saturation 96% 02/07/2023 12:18 PM WARP DYEING VAT TENDER Inhaled Oxygen Concentration - - Weight 127 kg (280 lb) 02/07/2023 12:18 PM WARP DYEING VAT TENDER Height 157.5 cm (5' 2 ) 02/07/2023 12:18 PM WARP DYEING VAT TENDER Body Mass Index 51.21 02/07/2023 12:18 PM WARP DYEING VAT TENDER documented in this encounter Discharge Instructions * Patient Instructions* Nathaly Ferrer RN - 02/07/2023 12:15 PM WARP DYEING VAT TENDER [facility] DISCHARGE INSTRUCTIONS MEDICATIONS: [x] Continue your current home medications Start: Increase Gabapentin to 600 mg three times a day [] Notify your pharmacy for refill(s) 7 days before you are out of your medication. [] Opioid (Narcotic) Agreement signed and patient received copy. [] Side Effects of Opioid Medications given to patient Resume blood thinner: NA Discontinue: DIET: [x] Resume normal diet [] See [facility] Post Discharge Procedure Information Sheet ACTIVITY: [x] Resume normal activity [] See [facility] Post Discharge Procedure Information Sheet REFERRALS: Physical Therapy [] [facility] Therapy ([phone]) [] [facility] (Graded [employer]ag[employer]) [] [facility] ([phone]) Option 1 [] [facility] (Graded [employer] Imag[employer]) [] [facility] ([phone]) [] Other: Behavior Medicine [] Pain Psychologist, [facility] Pain Psychology Please call to schedule appointment [phone] or [phone] Diagnostic Test(s): May get Radiographs performed in Radiation/X-Ray 6th floor, [address]. [] Please call to schedule MRI or CT scan at [phone] [] Please call to schedule EMG at [phone] EDUCATION provided on the following: [] Spinal Cord Stimulator Education and DVD. Vendor: FOLLOW UP APPOINTMENTS: [] Return as needed [] Follow up appointment: We will contact you the next business day to obtain: [] An update on your condition [] Your Pain diary scores [x] Procedure at your next visit : LUMBAR SELECTIVE NERVE ROOT INJECTION [facility] PATIENT EDUCATION PRE-PROCEDURE INFORMATION SHEET What is a lumbar selective nerve root injection? A lumbar selective nerve root injection is a block to treat pin in your back and legs. Nerves that travel from your back to your legs can become swollen or irritated and can cause pain in these areas. A local anesthetic (numbing medication) and a steroid medication will be placed above the area where the nerves come out of your spine. These medications can help decrease the inflammation (swelling) of the nerves, helping to relieve your pain. What should I do before my procedure? Let your doctor or nurse know if you are taking any blood thinners (this includes Aggrenox, Coumadin, Effient, Eliquis, Lovenox, Plavix, Pletal, Pradaxa, Ticlid or Xarelto). You may eat, drink and take your medications as usual. Bring someone with you to drive you home. An X-ray machine will be used during the procedure. Let your doctor or nurse know if there is any chance you may be . What should I expect during my procedure? Your procedure will be done on an x-ray table while you are awake. A security installation sales technician will be taking x-rays. A nurse will monitor your blood pressure, breathing and heart rate. Your doctor will use a local anesthetic to numb the area. What should I expect after my procedure? A nurse will monitor you for a brief time. You may feel sore at the injection site. You may feel lightheaded or dizzy, or have numbness or weakness in your legs. These symptoms will generally wear off in 6-8 hours, and are almost always gone by the next morning. If you have any questions before your procedure, please call the Pain Management Center at and ask to speak to a nurse. INSTRUCTIONS before your next procedure: [x] See [facility] Pre-Procedure Information Sheet [] Do not eat or drink for six (6) hours before the time/date of the procedure. [] Inquire with your prescribing provider if ok to hold blood thinner for ( ) days before procedure. [] Blood work required 2 hours before procedure: [x] Dance Teacher needed for next procedure [x] Pre Procedure instructions will be sent through [facility] or by phone two working days prior to procedure. *Need help with [facility]? Call [phone]. Patient provided information and repeated back with understanding. If you need to reach us: For any questions about your procedure, please call the Pain Management Center [phone] (M-F) (8am-4pm) If you need urgent attention after 5 pm and weekends: Call the [facility] Insurance Instructor at [phone] and ask for the Pain Service doctor hvac installation technician. DYEING VAT TENDER DYEING VAT TENDER DYEING VAT TENDER DYEING VAT TENDER DYEING VAT TENDER documented in this encounter Medications at Time [...] (eight) hours as needed for diarrhea 01/05/2023 multivitamin with minerals tablet Take 1 tablet [...] tablet TK 1 T PO HS 09/24/2019 ARIPiprazole (ABILIFY) 20 mg tablet TK 1 T PO HS 10/22/2019 4 gabapentin (NEURONTIN) 300 mg capsuleIndications:N europathic Pain Take 2 capsules (600 mg total) by mouth 3 (three) times a day 180 capsule 1 02/07/2023 3 haloperidoL (HALDOL) 5 mg tablet 07/26/2022 4 metoprolol XL (TOPROL-XL) 25 mg extended release tablet 2 tablets (50 mg total) daily 08/22/2022 4 naproxen (NAPROSYN) 500 mg tablet 10/17/2022 4 nitrofurantoin monohydrate (MACROBID) 100 mg capsule Take 1 capsule (100 mg total) by mouth 2 (two) times a day 14 capsule 12/20/2022 4 tiZANidine (ZANAFLEX) 4 mg tablet Take 1 tablet (4 mg total) by mouth 2 (two) times a day 60 tablet 2 02/07/2023 4 documented as of this encounter Ordered Prescriptions Prescription Sig Dispense Quantity Refills Last Filled Start Date End Date tiZANidine (ZANAFLEX) 4 mg tablet Take 1 tablet (4 mg total) by mouth 2 (two) times a day 60 tablet 2 02/07/2023 4 gabapentin (NEURONTIN) 300 mg capsuleIndications :Neuropathic Pain Take 2 capsules (600 mg total) by mouth 3 (three) times a day 180 capsule 1 02/07/2023 3 documented in this encounter Discharge Disposition Disposition Code Departure Means Destination Discharge to home or self care documented in this encounter Progress Notes * Ike Stephens, DO - 02/07/2023 12:15 PM CST Patient Name: Alona Kemp : 1970 Today's Date: 08/25/2022 PCP: Daja Kern MD Referring: Daja Kern MD Chief Complaint Patient presents with Back Pain Low back pain Leg Pain Burning in left calf HPI Alona Kemp is a 52 y.o. year old female referred by Daja Kern MD for consultation regarding evaluation and treatment recommendation for management of Her back pain. Patient was initially seen at the [facility] on 08/25/2022. Patient's Instrument Installer, David from [facility] attended today's visit. She presents with [...] interventional injections with Dr. Marty Holcomb with [facility] 1-2 years ago Imagin09/10/2019 [...] Service referral and a bariatric surgery consult Pain Medications ARIPiprazole (ABILIFY) 20 mg tablet TK 1 T PO HS DULoxetine DR (CYMBALTA) 60 mg capsule haloperidoL (HALDOL) 5 mg tablet naproxen (NAPROSYN) 500 mg tablet traZODone (DESYREL) 100 mg tablet TK 1 T PO HS gabapentin (NEURONTIN) 300 mg capsule Take 2 capsules (600 mg total) by mouth 3 (three) times a day tiZANidine (ZANAFLEX) 4 mg tablet Take 1 tablet (4 mg total) by mouth 2 (two) times a day INTERVAL HISTORY (02/07/2023) Patient returns to the clinic for a f/u visit for ongoing lumbar radicular pain. Today, the pain isdescribed as noted below: Pain Assessment Pain Score: 9 Pain Location: Back (Lumbar) Pain Radiating Towards: hips & left leg Pain Descriptors: Burning, Sharp, Throbbing Pain Frequency: Constant/continuous Clinical Progression: Gradually worsening Patient's Stated Pain Goal: 2 She denies any changes in the characteristic or severity of symptoms compared to last visit. Deniesany recent trauma, falls, or bowel or bladder incontinence. She was last seen in October for L5-S1 interlaminar epidural steroid injection which provided 75% relief for 3 weeks. Since then, she states that her symptoms have returned to baseline. She denies any new weakness of her lower extremities . Pain continues to radiate down the bilateral legs to her feet, and is worse on the left side. Pain Medications ARIPiprazole (ABILIFY) 20 mg tablet TK 1 T PO HS DULoxetine DR (CYMBALTA) 60 mg capsule haloperidoL (HALDOL) 5 mg tablet naproxen (NAPROSYN) 500 mg tablet traZODone (DESYREL) 100 mg tablet TK 1 T PO HS gabapentin (NEURONTIN) 300 mg capsule Take 2 capsules (600 mg total) by mouth 3 (three) times a day tiZANidine (ZANAFLEX) 4 mg tablet Take 1 tablet (4 mg total) by mouth 2 (two) times a day Tolerating medications without side effects such as sedation or feeling groggy. Results Allergies Allergen Reactions Risperidone Other (See comments) and Hives Violent and agitated. Sulfa (Sulfonamide Antibiotics) Hives Reaction: Hives, Topiramate Other (See comments) and Hives Difficulty with speech and word finding. Ziprasidone Hcl Other (See comments) Abnormal mouth movements Ziprasidone Hives Past Medical History: Diagnosis Date Anemia Arthritis Depression Gastric reflux Hypercholesteremia Hypertension Thyroid disease Past Surgical History: Procedure Laterality Date SECTION CHOLECYSTECTOMY Social History Tobacco Use Smoking status: Never Passive exposure: Current Smokeless tobacco: Never Substance and Sexual Activity Drug use: Not Currently Types: Crack cocaine Comment: 2x/month Sexual activity: Defer Alcohol Use: Not At Risk (02/07/2023) AUDIT-C Frequency of Alcohol Consumption: Monthly or less Average Number of Drinks: Patient does not drink Frequency of Binge Drinking: Never Family History Problem Relation Age of Onset Hypertension Mother Anxiety disorder Mother Diabetes Mother Arthritis Mother HOME MEDICATIONS : albuterol HFA (PROVENTIL HFA,VENTOLIN HFA,PROAIR HFA) 90 mcg/actuation inhaler ARIPiprazole (ABILIFY) 20 mg tablet benztropine (COGENTIN) 0.[address] (CYMBALTA) 60 mg capsule fluticasone propionate (FLONASE) 50 mcg/actuation nasal spray haloperidoL (HALDOL) 5 mg tablet irbesartan (AVAPRO) 150 mg tablet irbesartan-hydrochlorothiazide (AVALIDE) 150-12.5 mg per tablet levothyroxine (SYNTHROID) 50 mcg tablet metoprolol XL (TOPROL-XL) 25 mg extended release tablet naproxen (NAPROSYN) 500 mg tablet nitrofurantoin monohydrate (MACROBID) 100 mg capsule omeprazole (PriLOSEC) 40 mg capsule simvastatin (ZOCOR) 10 mg tablet traZODone (DESYREL) 100 mg tablet gabapentin (NEURONTIN) 300 mg capsule gabapentin (NEURONTIN) 300 mg capsule lidocaine (LIDODERM) 5 % tiZANidine (ZANAFLEX) 4 mg tablet Review of Systems Intake form reviewed, unremarkable for any new, acute, and significant life- threatening or concerning symptoms. Other pertinent ROS symptoms as noted in the HPI/Interval history. Physical Exam Vitals: 02/07/23 1218 BP: 156/96 Pulse: 92 Resp: 18 Temp: 97.7 ??F (36.5 ??C) SpO2: 96% [...] Dull S1 Normal Normal S2 Normal Normal Assessment Encounter Diagnosis Name Primary? Lumbar radiculopathy The above note documents my personal evaluation of this patient. In addition, I have reviewed and confirmed with the patient and nurse the supportive information documented in today's scanned PatientHealth Questionnaire and Office Note. Plan 1. Intervention: For given her ongoing bilateral lumbar radicular pain and transient relief with her interlaminar epidural steroid injection in the past, we discussed the rationale for bilateral L5 transforaminal steroid injection at her next visit. She is agreeable to proceeding with this. 2. Medications: Increase gabapentin to 600 mg t.i.d., given good efficacy with her neuropathic painwithout side effects. Discontinue methocarbamol given the in efficacy, and start tizanidine 4 mg b.i.d.. We discussed the side effects of these medications, especially the increased likelihood of sedation from combining these agents. She expressed understanding and all questions were answered. 3. Imaging: No further imaging needed at this current time. CT of the abdomen pelvis was reviewed from 12/16, and was notable for grade 1 anterolisthesis of L5 on S1. 4. Referral: Will refer to physical therapy once pain is better controlled., Encourage HEP, Encourage weight loss, and We will refer the patient to NSGY specialty clinic for surgical consultation. 5. Follow-up: Next available for b/l L5 TFESI Ike Stephens D.O. Clinical Fellow in Pain Medicine, PGY-5 Department of Anesthesiology [facility] in [facility] *Please note that parts of this note were generated using [id number] software; appeals court associate justice errors may arise. Cosigned by Katrina Wilkes MD at 02/11/2023 12:36 PM WARP DYEING VAT TENDER DYEING VAT TENDER DYEING VAT TENDER Associated attestation - Katrina Wilkes MD - 02/11/2023 12:36 PM WARP DYEING VAT TENDER I have seen and examined the patient. I agree with the findings and plan of care as documented in the resident/fellow's note. documented in this encounter Miscellaneous Notes * Addendum Note - Katrina Wilkes MD - 02/07/2023 12:15 PM CSTEncounter addended by: Katrina Wilkes MD on: 02/11/2023 12:36 PM Actions taken: Cosign clinical note with attestation, Level of Service modified DYEING VAT TENDER documented in this encounter Plan of Treatment [...] Start Date End Da te gabapentin (NEURONTIN) 300 mg capsuleIndications:Neuro pathic Pain Take 1 capsule (300 mg total) by mouth 3 (three) times a day 01/12/2023 02/07/2023 documented as of this encounter Care Teams Cylinder Head Assembler Relationship Specialty Start Date End Date Daja Kern MD [address] [place] [address] PCP - General 09/10/19 documented as of this encounter
--- OUTSIDE RECORDS SUMMARY | 2024-03-03 19:38 | XMS_ITS | Encounter Summary ---
Author Organization [facility] Healthcare Address [address] [place] [address] Care Team Providers Care Biology Intern Name Role Phone Daja Kern MD Primary Care Provider [phone] Encounter Details Date Type Department Care Team (Latest Contact Info) Description 06/22/2022 1:00 PM CDT - 06/22/2022 11:59 PM CDT Hospital Encounter [facility] [...] on file Legal Sex Female 6:59 AM RECEIVABLE CLERK Gender Identity Not on file Sexual Orientation [...] 11/12/2019 3 documented as of this encounter Discharge Disposition Disposition Code Departure Means Destination Discharge to home or self care documented in this encounter Plan of Treatment Not on file documented as of this encounter Visit Diagnoses Not on filedocumented in this encounter Care Teams Biology Intern Relationship Specialty Start Date End Date Daja Kern MD [address] [place] [address] PCP - General 09/10/19 documented as of this encounter
--- OUTSIDE RECORDS SUMMARY | 2024-03-03 19:38 | XMS_ITS | Encounter Summary ---
Author Organization [facility] Healthcare Address [address] [place] [address] Care Team Providers Care Snow Plow Operator Name Role Phone Daja Kern MD Primary Care Provider [phone] Encounter Details Date Type Department Care Team (Late st Contact Info) Description 12/20/2022 Documentation [facility] Warm Hand Off Program [address] [place], [place] [phone] Hector Solitario Social History Tobacco Use Types Packs/Day Years Used Date Smoking Tobacco: Never Smokeless Tobacco: Never Alcohol Use Standard Drinks/Week Comments No 0 (1 standard drink = 0.6 oz pur e alcohol) AUDIT-C Answer Date Recorded Q1: How often do you have a drink containing alcohol? Never 11/04/2022 Q2: How many drinks containi ng alcohol do you have on a typical day when you are drinking? Patient does not drink Frequency of Binge Drinking Not on file 09/2022 Hunger Vital Sign Answer Date Recorded Within the past 12 months, y ou worried that your food would run out before you got the money to buy more. Never true 08/26/19 23 Within the past 12 months, t he food you bought just didn't last and you didn't have money to get more. Never true 08/25/2022 Comments No Sex and Gender Information Value Date Recorded Sex Assigned at Not on file Legal Sex Female 6:59 AM JUNIOR ESTIMATOR Gender Identity Not on file Sexual Orientation Not on file documented as of this encounter Progress Notes * Hector Solitario - 12/20/2022 9:00 PM CDT Brief Screening Consults placed for Warm Hand-Off Reason consult placed: EMERGENCY DEPARTMENT consult Substance: Crank/Cocaine Length of use: last year+ Last use: 12/17/22 Screenings PHQ: PHQ-2 Total Score (If total score is 3 or more points, staff should administer the PHQ-9): 6 DAST: Drug Abuse Screening Test (DAST) Score: 0=No problems reported, 1-2=Low level(Monitor, re-assess at a later date), 3-5=Moderate level(Further investigation), 6-8=Substantial level(Intensive assessment), 9-10=Severe level(Intensive assessment): 6 AUDIT: denies Encounter PEER RANCH MANAGER met with Pt in the EMERGENCY DEPARTMENT in response to WHO consult request. PEER RANCH MANAGER introduced self to Pt and explained services available through the [facility] program. Pt stated primary substance of use is crack/cocaine. Pt stated she last used on 12/17/22. Pt s tates she goes on a 3 day binge of $700 of product roughly once a month with consistent use till she runs out of substance. Pt denies any other substance use at this time. Pt states she has no hx with any form of substance abuse treatment services or recovery support. Pt notes she has a medical condition of high Blood Pressure. Pt states she is currently living at her mothers home in [facility]. Pt states she is unemployed but is receiving disability. Pt states she has long hx however with addressing psychiatric treatment and services. Pt states sheis diagnosed with Bipolar, Anxiety, and Depression Disorders. Pt states she is currently engaged with treatment services to address mental health concerns through [facility] in [place]. PEER RANCH MANAGER discussed with Pt current treatment options which are available to her. Given that Pt has not used Crack/Cocaine within last three days Pt at this time may not meet requirements for an inpatient treatment say for detox within a hospital facility. PEER RANCH MANAGER and Pt discussed services through [facility] crisis Unit in [facility]. PEER RANCH MANAGER explained program and treatment to address co-occurring disorders for substance abuse and mental health for two week IP treatment. Pt stated she would call her counselor through [facility] in the morning to see about scheduling Pt for a MH bed for Pt on the Crisis unit. {T stated she is aware of contact number to outreach in the morning PEER RANCH MANAGER informed Pt she would provide contact information to EMERGENCY DEPARTMENT staff to provide to Pt. PEER RANCH MANAGER also encouraged Pt to reach out to [facility] if in need or hospital records from this evening faxed to [employer]. Readiness to Change [x]Aware of the need to change []Reluctant to agree to treatment []Unaware of and not interested in the need to change []Rejecting the need to change []Does not identify as having a substance use issue documented in this encounter Plan of Treatment [...] on filedocumented in this encounter Care Teams Snow Plow Operator Relationship Specialty Start Date End Date Daja Kern MD [address] [place] [address] PCP - General 09/10/19 documented as of this encounter
--- OUTSIDE RECORDS SUMMARY | 2024-03-03 19:38 | XMS_ITS | Encounter Summary ---
Author Organization [facility] Healthcare Address [address] [place] [address] Care Team Providers Care Environmental Advisor Name Role Phone Daja Kern MD Primary Care Provider [phone] Reason for Visit * Reason Comments Hypertension Had BP reading of 16 0/127 at bariatric surgeon's this morning, denies headache and vision changes. Encounter Details Date Type Department Care Team (Late st Contact Info) Description 03/27/2023 1:27 PM ADJUNCT INSTRUCTOR OF WOMEN'S STUDIES - 03/27/2023 2:28 PM ADJUNCT INSTRUCTOR OF WOMEN'S STUDIES [facility] Emergency Department [id number] [place] [address] Hypertension, unspecified type (Primary Dx); Chronic low back pain without sciatica, unspecified back pain laterality Discharge Disposition: Discharge to home or self [...] on file Legal Sex Female 6:59 AM ADJUNCT INSTRUCTOR OF WOMEN'S STUDIES Gender Identity Not on file Sexual Orientation Not on file documented as of this encounter Last Filed Vital Signs Vital Sign Reading Time Taken Comments Blood Pressure 119/83 03/27/2023 1:45 PM ADJUNCT INSTRUCTOR OF WOMEN'S STUDIES Pulse 104 03/27/2023 1:45 PM ADJUNCT INSTRUCTOR OF WOMEN'S STUDIES Temperature 36.7 ??C (98 ??F) 03/27/2023 12:21 PM ADJUNCT INSTRUCTOR OF WOMEN'S STUDIES Respiratory Rate 19 03/27/2023 1:45 PM ADJUNCT INSTRUCTOR OF WOMEN'S STUDIES Oxygen Saturation 95% 03/27/2023 1:45 PM ADJUNCT INSTRUCTOR OF WOMEN'S STUDIES Inhaled Oxygen Concentration - - Weight 125.6 kg (277 lb) 03/27/2023 12:21 PM ADJUNCT INSTRUCTOR OF WOMEN'S STUDIES Height 157.5 cm (5' 2 ) 03/27/2023 12:21 PM ADJUNCT INSTRUCTOR OF WOMEN'S STUDIES Body Mass Index 50.66 03/27/2023 12:21 PM ADJUNCT INSTRUCTOR OF WOMEN'S STUDIES documented in this encounter Discharge Instructions * Discharge Instructions* Sonia Davila PA - 03/27/2023 2:13 PM ADJUNCT INSTRUCTOR OF WOMEN'S STUDIES You were seen today in the emergency department after a office visit with minimally invasive surgery due to elevated blood pressure. Your blood pressure reading the office was 160/127. While in the emergency department your blood pressure was lower, on arrival was 148/105 and then decreased to 119/83. Your blood pressure could likely have been elevated due to pain or stress. You should get a blood pressure cuff and check daily, record your values and follow-up with your primary care. Return emergency department for evaluation if you develop chest pain, difficulty breathing, headache, blurred vision in the setting of an elevated blood pressure. NCT INSTRUCTOR OF WOMEN'S STUDIES * Attachments The following attachments cannot be sent through Care Everywhere. * Hypertension, Established (Chadian) documented in this encounter Medications at Time [...] 37.5-25 mg per tablet 03/06/2023 gabapentin (NEURONTIN) 300 mg capsuleIndications:N europathic Pain Take 2 capsules (600 mg total) by mouth 3 (three) times a day 180 capsule 1 02/08/2023 metoprolol XL (TOPROL-XL) 25 mg extended release [...] 02/07/2023 4 documented as of this encounter Discharge Disposition Disposition Code Departure Means Destination Comment s Discharge to home or self care documented in this encounter ED Notes * Sonia Davila PA - 03/27/2023 2:28 PM CST HPI Chief Complaint Patient presents with Hypertension Had BP reading of 160/127 at bariatric surgeon's this morning, denies headache and vision changes. 52-year-old female past medical history of anemia, bipolar disorder, IBS, hypertension, diabetes presents to the emergency department due to elevated blood pressure reading in her minimally invasive surgery office appointment today. Patient's blood pressure is 160/127. She denies any associated chest pain, difficulty breathing, headache or vision changes. Patient reportedly felt irritable, was angry while in the appointment but otherwise is asymptomatic. She has been compliant with her blood pressure medications. She does report some pain in her back and her left foot which is chronic. She took her gabapentin but otherwise no other pain medication today. Patient History: Patient Active Problem List Diagnosis Date Noted Strain of calf muscle 02/22/2020 Adiposity 11/18/2011 Hypersomnia 11/18/2011 Obstructive sleep apnea syndrome in adult 11/18/2011 Hay fever 09/08/2011 Cough 09/08/2011 Sinusitis 09/08/2011 Allergic rhinitis due to pollen 09/08/2011 Chronic infection of sinus 09/08/2011 Past Medical History: Diagnosis Date Anemia Anxiety 1989 Arthritis Bipolar disorder ([facility]) 2021 Depression Diabetes mellitus ([facility]) 2023 Gastric reflux Hypercholesteremia Hypertension Irritable bowel syndrome 2019 Low back pain 2002 Morbid obesity ([facility]) 2001 Sleep apnea 2009 Substance abuse ([facility]) ([facility]) 1992 Thyroid disease Type 2 diabetes mellitus ([facility]) 2023 Past Surgical History: Procedure Laterality Date SECTION CHOLECYSTECTOMY Family History Problem Relation Age of Onset Hypertension Mother Anxiety disorder Mother Diabetes Mother Arthritis Mother Depression Mother Obesity Mother Mental illness Father Obesity Father Social History Tobacco Use Smoking status: Never Passive exposure: Current Smokeless tobacco: Never Substance and Sexual Activity Alcohol use: No Drug use: Not Currently Types: Cocaine Comment: 2x/month Sexual activity: Not Currently Social History Social History Narrative Not on file Review of Systems Review of Systems Constitutional: Negative for fever. Eyes: Negative for visual disturbance. Respiratory: Negative for cough and shortness of breath. Cardiovascular: Negative for chest pain and palpitations. Gastrointestinal: Negative for abdominal pain, constipation, diarrhea, nausea and vomiting. Genitourinary: Negative for dysuria. Musculoskeletal: Negative for arthralgias. Skin: Negative for wound. Neurological: Negative for dizziness and headaches. All other systems reviewed and are negative. Physical Exam ED Triage Vitals [03/27/23 1221] Temp Pulse Resp BP SpO2 36.7 ??C (98 ??F) 115 18 (!) 148/105 96 % Temp src Heart Rate Source Patient Position BP Location FiO2 (%) -- -- -- -- -- Height Height Method Weight Weight Method 1.575 m (5' 2 ) -- 125.6 kg (277 lb) -- Physical Exam Vitals and nursing note reviewed. Constitutional: General: She is not in acute distress. Appearance: She is not toxic-appearing or diaphoretic. HENT: Head: Normocephalic and atraumatic. Eyes: Conjunctiva/sclera: Conjunctivae normal. Cardiovascular: Rate and Rhythm: Normal rate and regular rhythm. Pulses: Normal pulses. Heart sounds: No murmur heard. Pulmonary: Effort: Pulmonary effort is normal. No respiratory distress. Breath sounds: No wheezing, rhonchi or rales. Abdominal: Palpations: Abdomen is soft. Tenderness: There is no abdominal tenderness. There is no guarding or rebound. Musculoskeletal: Cervical back: Neck supple. Right lower leg: No edema. Left lower leg: No edema. Skin: General: Skin is warm. Capillary Refill: Capillary refill takes less than 2 seconds. Neurological: Mental Status: She is alert and oriented to person, place, and time. Psychiatric: Mood and Affect: Mood normal. Behavior: Behavior normal. Thought Content: Thought content normal. MDM Medical Decision Making Differential: Hypertension, chronic pain Plan: 52-year-old female past medical history anemia, bipolar disorder, IBS, hypertension, diabetespresents to the emergency department due to elevated blood pressure reading in her minimally invasive surgery office appointment today. Patient denies chest pain, difficulty breathing, headache or vision changes. On exam, patient is well-appearing and in no signs of acute distress. On arrival bloodpressure improved to 148/105. Cardiac exam with regular rate rhythm. Lungs are clear to auscultation bilaterally. As patient is asymptomatic and blood pressure not in range of hypertensive crisis will defer laboratory workup or intervention. Pain likely due to stress of doctor appointment as well as pain. Plan for discharge with patient to monitor blood pressure at home discussed return precautions Amount and/or Complexity of Data Reviewed External Data Reviewed: notes. Details: Minimally invasive surgery appointment this morning blood pressure recorded is 160/127. Mentioned in patient being confused at appointment. Risk Prescription drug management. ED Course as of 03/27/231923 Time: 03/27 1350 Comment: BP 160/127 at Minimally invasive surgery office By: Sonia Davila PA Time: 03/27 1424 Comment: Blood pressure improved 119/83. Patient is asymptomatic at this time. Discussed that workup is not required at this time indoors intervention blood pressure. Encouraged patient to check blood pressure at home and by a cough and a pharmacy. Discussed strict return precautions. Patient agreeable to discharge plan. By: Sonia Davila PA Final diagnoses: Hypertension, unspecified type Chronic low back pain without sciatica, unspecified back pain laterality Sonia Davila PA 03/27/231923 NCT INSTRUCTOR OF WOMEN'S STUDIES * Deneen Liao RN - 03/27/2023 12:20 PM CST Had BP reading of 160/127 at bariatric surgeon's this morning, denies headache and vision changes. She is 148/105 in triage. She notes 7/10 foot pain currently and has not had anything for pain. She took her HTN meds AGRONOMY SPECIALIST. NCT INSTRUCTOR OF WOMEN'S STUDIES documented in this encounter Plan of Treatment [...] as of this encounter Visit Diagnoses Diagnosis Hypertension, unspecified type- Primary Chronic low back pain without sciatica, unspecified back pain laterality documented in this encounter Administered Medications Inactive Administered Medications - up to 3 most recent administrations Medication Order MAR Action Action Date Dose Rate Site ketorolac (TORADOL) 15 mg/mL injection 15 mg 15 mg, intramuscular, Once, On Mon03/27/23 at 1351, For 1 dose Given 03/27/2023 2:01 PM ADJUNCT INSTRUCTOR OF WOMEN'S STUDIES 15 mg Left Deltoid lidocaine (LIDODERM) 5 % patch 1 patch 1 patch, transdermal, Administer over 12 Hours, Every 24 hours, First dose on Mon03/27/23 at 1351, Do not cover the holes on the top side of the patch., Apply to affected area: back Medication Applied 03/27/2023 2:01 PM ADJUNCT INSTRUCTOR OF WOMEN'S STUDIES 1 patch Back documented in this encounter Active and Recently Administered Medications Times are shown in ADJUNCT INSTRUCTOR OF WOMEN'S STUDIES. Scheduled Medication Order 03/25/2023 03/26/2023 03/27/2023 ketorolac (TORADOL) 15 mg/mL injection 15 mg (COMPLETED) 15 mg, intramuscular, Once, On Mon03/27/23 at 1351, For 1 dose 1401 (Given - Provid er: Anjum Meño Sánchez, RN) lidocaine (LIDODERM) 5 % patch 1 patch 1 patch, transdermal, Administer over 12 Hours, Every 24 hours, First dose on 03/27/23 at 1351, Do not cover the holes on the top side of the patch., Apply to affected area: back 1401 (Medication Tory lied - Provider: Anjum Sánchez RN)1428 (Due: Medication Removed - Provider: Automatic Discharge Provider - Comment: Time automatically adjusted from order being discontinued) documented in this encounter Orders Medications Ordered That Jose Alberto ht Not Have Been Administered Count Last Ordered Date First Ordered Date ketorolac (TORADOL) 15 mg/mL injection 15 mg 1 03/27/2023 documented in this encounter Care Teams Environmental Advisor Relationship Specialty Start Date End Date Daja Kern MD [address] [place] [address] PCP - General 09/10/19 documented as of this encounter
--- OUTSIDE RECORDS SUMMARY | 2024-03-03 19:38 | XMS_ITS | Encounter Summary ---
Author Organization [facility] Healthcare Address [address] [place] [address] Care Team Providers Care Hazard Waste Handler Name Role Phone Daja Kern MD Primary Care Provider Reason for Visit * Reason Onset Date Comments Insurance Predetermination 09/12/2022 Encounter Details Date Type Department Care Team (Late st Contact Info) Description 09/12/2022 Telephone [facility] [address] [place] [address] Ander Jules NP [address] [place], [place] [id number] Insurance Predetermination Social History Tobacco Use Types Packs/Day Years Used Date Smoking Tobacco: Never Smokeless Tobacco: Never Alcohol Use Standard Drinks/Week Comments No 0 (1 standard drink = 0.6 oz pur e alcohol) Hunger Vital Sign Answer Date Recorded Within [...] on file Legal Sex Female 6:59 AM GEAR STRAIGHTENER Gender Identity Not on file Sexual Orientation Not on file documented as of this encounter Miscellaneous Notes * Telephone Encounter - Ander Jules NP - 09/15/2022 8:35 AM CDT Reviewed previous lumbar spine MRI with Dr. Wilkes. Will proceed with GER[facility]. Please call patient to schedule next available with Dr. Wilkes. Jonas Welsh * Telephone Encounter - Echo Stevenson - 09/12/2022 11:21 AM CDT Images from the original note were not included. Corrected note Auth Denied DOS- 09/22/22 Facility auth is under- KEO QUICK Auth is under- Ander Jules NP. PO Contacted - [phone] Left vm with P2P info. Reschedule Flag added? No Escalation Email sent? No CPT code(s)- 66758 Insurance Name(s)- [employer] Auth Status- Denied Payer/3rd Constitution Party Contacted - [facility] [phone] Armando BobbyKyung Reference/ Options for overturning denial - p2p/reconsideration with [facility] [phone] within 5 business days of denial date 09/07/2022Thursday 09/14 is last day to do P2P, decision is immediate. Reconsideration completed by Pre-Arrival- No addt'l info available to submit Additional details - Unable to speak to nurse reviewer. Denial Rationale- documented in this encounter Plan of Treatment [...] on filedocumented in this encounter Care Teams Hazard Waste Handler Relationship Specialty Start Date End Date Daja Kern MD [address] [place] [address] PCP - General 09/10/19 documented as of this encounter
--- OUTSIDE RECORDS SUMMARY | 2024-03-03 19:38 | XMS_ITS | Encounter Summary ---
Author Organization [facility] Healthcare Address [address] [place] [address] Care Team Providers Care Train Control Technician Name Role Phone Daja Kern MD Primary Care Provider [phone] Reason for Referral * Diagnostic Imaging (Routine) - Closed Specialty Diagnoses / Procedures Referred By Contac t Referred To Contact Diagnoses Lumbar radiculopathy Procedures Imaging Lumbar/Caudal Epidural Steroid INJ ([id number]) Ander Jules NP Phone: tel: fax: [address] [phone] Referral ID Status Reason Start Date Expiration Date Visits Re quested Visits Authorized [id number] Closed 11/04/2022 05/05/2023 1 1 Reason for Visit * Reason Comments Back Pain * Diagnostic Imaging (Routine) - Closed Specialty Diagnoses / Procedures Referred By Contac t Referred To Contact Diagnoses Lumbar radiculopathy Procedures Imaging Lumbar/Caudal Epidural Steroid INJ (89713) Ander Jules NP Phone: tel: fax: [address] [phone] Referral ID Status Reason Start Date Expiration Date Visits Re quested Visits Authorized [id number] Closed 11/04/2022 05/05/2023 1 1 Encounter Details Date Type Department Care Team (Latest Contact Info) Description 11/04/2022 12:55 PM CDT - 11/04/2022 11:59 PM CDT Hospital Encounter [facility] [address] [facility] [address] [place] [address] Katrina Wilkes MD [address] [place] [address] Lumbar radiculopathy Discharge Disposition: Discharge to home [...] on file Legal 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 Gender Identity Not on file Sexual Orientation Not on file documented as of this encounter Last Filed Vital Signs Vital Sign Reading Time Taken Comments Blood Pressure 153/100 11/04/2022 2:15 PM CDT pt without adverse sx Pulse 94 11/04/2022 1:59 PM CDT Temperature 36.5 ??C (97.7 ??F) 11/04/2022 1 2:57 PM CDT Respiratory Rate 18 11/04/2022 1:59 PM CDT Oxygen Saturation 98% 11/04/2022 1:5 9 PM CDT Inhaled Oxygen Concentration - - Weight - - Height - - Body Mass Index - - documented in this encounter Discharge Instructions * Discharge Instructions* Dasia Leal RN - 11/04/2022 12:59 PM CDT [facility] PATIENT EDUCATION POST-PROCEDURE [...] 4:00 p.m., you should call the hospital feeder operator automatic at and ask tospeak with the Pain Service doctor ribbon hand. PAIN MANAGEMENT CENTER ([facility]) DISCHARGE INSTRUCTIONS MEDICATIONS: [x] Continue your current home medications Start: [x] Notify your pharmacy for refill(s) 7 days before you are out of your medication. [] Opioid (Narcotic) Agreement signed and patient received copy. [] Side Effects of Opioid Medications given to patient Resume blood thinner: On Discontinue: PROCEDURE at today's visit: lumbar epidural steroid injection DIET: [x] Resume normal diet [] See [facility] Post Discharge Procedure Information Sheet ACTIVITY: [] Resume normal activity [x] See [facility] Post Discharge Procedure Information Sheet REFERRALS: Physical Therapy [] [facility] ([phone]) [] [facility] ([employer]) [] [facility] ([phone]) Option 1 [] [facility] (Graded Motor Imagery) [] [facility] ([phone]) [] Other: Behavior Medicine [] Pain Psychologist, [facility] Pain Psychology Please call to schedule appointment [phone] or [phone] Diagnostic Test(s): May get Radiographs performed in [...] INSTRUCTIONS before your next procedure: [] See [facility] Pre-Procedure Information Sheet [] Do not eat or drink for six (6) hours before the time/date of the procedure. [] Inquire with your prescribing provider if ok to hold blood thinner for ( ) days before procedure. [] Blood work required 2 hours before procedure: [] Center Machine Set Up Operator needed for next procedure [] Pre Procedure instructions will be sent through Slingbox or by phone two working days prior to procedure. *Need help with Slingbox? Call [phone]. Patient provided information and repeated back with understanding. If you need to reach us: For any questions about your procedure, please call the Pain Management Center [phone] ([phone]) (8am-4pm) If you need urgent attention after 5 pm and weekends: Call the [facility] Fire Marshal at [phone] and ask for the Pain Service doctor ribbon hand. documented in this encounter Medications at Time [...] (150 mg total) by mouth daily 10/18/2019 irbesartan-hydroc hlorothiazide (AVALIDE) 150-12.5 mg per tablet daily levothyroxine (SYNTHROID) 50 mcg tablet 11/12/2019 lidocaine (LIDODERM) 5 % 07/26/2022 omeprazole (PriLOSEC) 40 mg capsule Take 1 capsule (40 mg total) by mouth daily 02/06/2019 simvastatin (ZOCOR) 10 mg tablet 11/12/2019 traZODone (DESYREL) 100 mg tablet TK 1 T PO HS 09/24/2019 ARIPiprazole (ABILIFY) 20 mg tablet TK 1 T PO HS 10/22/2019 03/15/2023 gabapentin (NEURONTIN) 300 mg capsuleIndication s:Neuropathic Pain Take 1 capsule (300 mg total) by mouth 3 (three) times a day 90 capsule 1 08/25/2022 01/12/2023 haloperidoL (HALDOL) 5 mg tablet 07/26/2022 03/15/2023 metoprolol XL (TOPROL-XL) 25 mg extended release tablet 2 tablets (50 mg total) daily 08/22/2022 11/08/2023 naproxen (NAPROSYN) 500 mg tablet 10/17/2022 03/15/2023 documented as of this encounter Discharge Disposition Disposition Code Departure Means Destination Discharge to home or self care documented in this encounter Progress Notes * Katrina Wilkes MD - 11/04/2022 1:00 PM CDT Patient Name: Alona Kemp : 1970 Today's Date: 08/25/2022 PCP: Daja Kern MD Referring: Ander Jules, * Chief Complaint Patient presents with Back Pain HPI Alona Kemp is a 51 y.o. year old female referred by Ander Jules, * for consultation regarding evaluation and treatment recommendation for management of Her back pain. Patient was initially seen at the [facility] on 08/25/2022. Patient's Laundry Washer, David from [facility] attended today's visit. She presents with [...] HS gabapentin (NEURONTIN) 300 mg capsule Take 1 capsule (300 mg total) by mouth 3 (three) times a day Interval history Pain Assessment Pain Score: 9 Patient's Stated Pain Goal: 3 Pain Location: Back (Lumbar) Pain Radiating Towards: radiates to the hips bilaterally and left leg Pain Descriptors: Aching, Burning, Shooting Pain Frequency: Constant/continuous The patient is seen before her L5-S1 LES. Patient reports no changes to her pain since the last clinic visit. Medical history, allergies, and blood thinner status were reviewed. Consent was obtained.Patient feels at baseline today and there has been no major changes to her medical history. Reviewed her MRI lumbar spine. She has history of following psychiatric disorder: anxiety and depression She is receiving disability compensation now: No. She is involved in a law suit because of pain or injury: No. She is in contact with a shotgun shell reprinting unit operator because of pain or injury: No. Results Allergies Allergen Reactions Risperidone Other (See comments) Violent and agitated. Sulfa (Sulfonamide Antibiotics) Hives Reaction: Hives, Topiramate Other (See comments) Difficulty with speech and word finding. Ziprasidone Hcl Other (See comments) Abnormal mouth movements Past Medical History: Diagnosis Date Anemia Arthritis Depression Gastric reflux Hypercholesteremia Hypertension Thyroid disease Past Surgical History: Procedure Laterality Date SECTION CHOLECYSTECTOMY Social History Tobacco Use Smoking status: Never Smokeless tobacco: Never Substance and Sexual Activity Drug use: Not Currently Types: Crack cocaine Comment: 2x/month Sexual activity: Defer Alcohol Use: Not At Risk (11/04/2022) AUDIT-C Frequency of Alcohol Consumption: Never Average Number of Drinks: Patient does not drink Frequency of Binge Drinking: Not on file Family History Problem Relation Age of Onset [...] 50 mcg tablet lidocaine (LIDODERM) 5 % metoprolol XL (TOPROL-XL) 25 mg extended release tablet naproxen (NAPROSYN) 500 mg tablet omeprazole (PriLOSEC) 40 mg capsule simvastatin (ZOCOR) 10 mg tablet traZODone (DESYREL) [address] (CYMBALTA) 30 mg capsule gabapentin (NEURONTIN) 300 mg capsule Review of Systems Review of Systems Constitutional: Weight gain HENT: Positive for rhinorrhea and tinnitus. Nose pain Nose congestion Eyes: Positive for photophobia. Respiratory: Positive for shortness of breath. Asthma Cardiovascular: High blood pressure Gastrointestinal: Heartburn Endocrine: Thyroid disease Musculoskeletal: Positive for arthralgias, joint swelling and myalgias. Psychiatric/Behavioral: Irritability Depression Anxiety All other systems reviewed and are negative. Physical Exam Vitals: 11/04/22 1257 11/04/22 1339 11/04/22 1347 BP: 143/96 156/93 150/98 Pulse: 82 84 80 Resp: 18 16 17 Temp: 97.7 ??F (36.5 ??C) SpO2: 97% 96% 98% There is no height or weight on file to calculate BMI. Physical Exam GENERAL: In no acute distress. Well-developed and well nourished. PSYCHOLOGICAL: Alert and oriented. Cooperative, normal stated mood, congruent affect. HENT: Normocephalic, atraumatic. Hearing adequate for conversation. EYES: Non-icteric sclera. ABDOMEN: Non-distended RESPIRATORY: Non-labored breathing. No audible cough or wheeze. CARDIOVASCULAR: No edema. Bilateral lower extremities are warm and well perfused. SKIN: No rashes or open wounds involving posterior torso, posterior pelvis, lower extremities. NEUROLOGIC: Sensation: Intact to light touch to bilateral UE and LE 5/5 strength in bilateral lower and upper extremities Able to heel walk, unable to toe or tandem walk Antalgic gait, uses walker at times Spine Cervical Palpation: Negative tenderness along bilateral paraspinal Thoracic Palpation: Negative tenderness along bilateral paraspinal Lumbar/Pelvis Palpation: Tenderness along bilateral paraspinal ROM: decreased Special Tests: SLR positive on left Facet tenderness: moderate bilaterally Lumbar facet loading: positive bilaterally OFE test: positive bilaterally Gaenslen's test: positive bilaterally SI joint compression positive bilaterally L > R GTB: Positive on left SIJ: TTP bilaterally Reflexes Upper Extremity: Morales's: negative bilaterally Lower Extremity: Clonus: negative bilaterally Patellar Tendon (L4): +2 bilateral Assessment Encounter Diagnosis Name Primary? Lumbar radiculopathy The above note documents my personal evaluation of this patient. In addition, I have reviewed and confirmed with the patient and nurse the supportive information documented in today's scanned PatientHealth Questionnaire and Office Note. Plan 1. Intervention: proceed with LES at L5-S1 today. 2. Medications: Medications reviewed. Gabapentin 300mg TID w/ weekly titration. Discontinue baclofen (patient reports not taking for > than 2 weeks). Methocarbamol 500mg TID with weekly titration,wait to start medication after 2 weeks of Gabapentin . 3. Imaging: No further imaging needed at this current time 4. Referral: Will refer to physical therapy once pain is better controlled., Encourage HEP, Encourage weight loss, and We will refer the patient to NSGY specialty clinic for surgical consultation. 5. Follow-up: In 4-6 weeks for re-evaluation of the above regimen. Katrina Wilkes MD documented in this encounter Miscellaneous Notes * Op Note - Katrina Wilkes MD - 11/04/2022 1:00 PM CDT NAME OF PROCEDURE: Lumbar Epidural Steroid Injection at L5-S1, under fluoroscopy. SURGEON: Katrina Wilkes MD CLASSROOM TECHNOLOGY TECHNICIAN SURGEON: CLASSROOM TECHNOLOGY TECHNICIAN SURGEON: None PREPROCEDURAL DIAGNOSES: Other chronic pain Lumbar radiculopathy Lumbar foraminal stenosis Lumbago POSTPROCEDURAL DIAGNOSES: Other chronic pain Lumbar radiculopathy Lumbar foraminal stenosis Lumbago INDICATION FOR PROCEDURE: Low back pain to the leftLE INFORMED CONSENT: After reviewing the procedure with the patient, informed consent to proceed with the injection was obtained. A procedural permit was also signed. DESCRIPTION OF PROCEDURE: The patient was placed in the prone position, and fluoroscopy was used toidentify the L5-S1 level. The lumbar area was prepped with chlorhexidine solution and draped with sterile drape (prep and drape materials from the epidural kit). Sterile technique was used throughout. At the needle entry point, the skin and subcutaneous tissues were infiltrated with 1% lidocaine. An 18-gauge Tuohy needle was advanced to the epidural space, using the loss of resistance technique. Omnipaque 300 X 0.5 ml. was injected, resulting in distribution of contrast in the epidural space from L5 to S1. No paresthesias were encountered during needle placement. With the needle in the epidural space, aspiration was negative for blood or other fluid. Methylprednisolone, 80 mg., lidocaine, 15 mg., and epinephrine, 5 mcg., (total volume 3 ml.) were injected through the Tuohy needle. The injected local anesthetic and steroid resulted in dispersion of the previously injected contrast. Operative Findings: The procedure was completed as planned. Complications: There were no apparent complication. Estimated Blood Loss: None Intraoperative Fluids: None Specimens: None DISPOSITION: Home in stable condition documented in this encounter Plan of Treatment [...] Date/Time Associated Diagnosis Comments PAIN MGMT IMAGING LUMBAR/CAUDAL EPIDURAL STEROID INJ Schedule Routine, Read Routine (OP Routine) 11/04/2022 1:54 PM CDT Lumbar radiculopathy documented in this encounter Results * Imaging Lumbar/Caudal Epidural Steroid INJ (23381) (11/04/2022 1:54 PM CDT) Narrative [facility] - 11/04/2022 1:54 PM CDT The images from this study are not interpreted by Radiology. ??Please refer to the physician's procedure / OR operative note. Ander Jules NP IMG PAIN MGMT PROCEDURE S Final Result [facility] documented in this encounter Visit Diagnoses Diagnosis Lumbar radiculopathy Thoracic or lumbosacral neuritis or radiculitis, unspecified documented in this encounter Administered Medications Inactive Administered Medications - up to 3 most recent administrations Medication Order MAR Action Action Date Dose Rate Site iohexoL (OMNIPAQUE) 300 mg iodine/mL injection solution As needed, Starting on Mon11/04/22 at 1346, Intra-Op Given 11/04/2022 1:45 PM CDT 1 mL lidocaine PF (XYLOCAINE) 10 mg/mL (1 %) preservative free injection As needed, Starting on Mon11/04/22 at 1346, Intra-Op Given 11/04/2022 1:45 PM CDT 3 mL lidocaine-EPINEPHrine (XYLOCAINE with EPI) 1.5 %-1:200,000 preservative free injection As needed, Starting on Mon11/04/22 at 1346, Intra-Op Given 11/04/2022 1:46 PM CDT 2 mL methylPREDNISolone acetate (DEPO-medrol) injection As needed, Starting on Mon11/04/22 at 1346, Intra-Op Given 11/04/2022 1:45 PM CDT 80 mg sodium chloride 0.9% solution As needed, Starting on Mon11/04/22 at 1346, Intra-Op Given 11/04/2022 1:45 PM CDT 1 mL documented in this encounter Discontinued Medications Medication Sig Discontinue Reason Start Date End Da te DULoxetine DR (CYMBALTA) 30 mg capsule 3 11/04/2022 documented as of this encounter Historical Medications * This list may reflect changes made after this encounter. DULoxetine DR (CYMBALTA) 60 mg capsule 10/17/2022 irbesartan-hydroc hlorothiazide (AVALIDE) 150-12.5 mg per tablet daily fluticasone propionate (FLONASE) 50 mcg/actuation nasal spray 2 sprays daily As needed 10/17/2022 naproxen (NAPROSYN) 500 mg tablet 10/17/2022 03/15/2023 added in this encounter Care Teams Train Control Technician Relationship Specialty Start Date End Date Daja Kern MD [address] [place] [address] PCP - General 09/10/19 documented as of this encounter
--- OUTSIDE RECORDS SUMMARY | 2024-03-03 19:38 | XMS_ITS | Encounter Summary ---
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 Gender Identity Not on file Sexual Orientation [...] 300 mg 24 hr tablet 11/11/[address] (CYMBALTA) 30 mg capsule 07/04/2022 3 gabapentin (NEURONTIN) 300 mg capsule TK [...] as needed for muscle spasms Collaborating physician Jadeil Gan MD 20 tablet 02/22/2020 3 triamterene-hydr oCHLOROthiazide 37.5-25 mg per tablet 11/12/2019 3 documented as of this encounter Discharge Disposition Disposition Code Departure Means Destination Discharge to home or self care documented in this encounter Plan of Treatment Not on file documented as of this encounter Visit Diagnoses Not on filedocumented in this encounter Care Teams Ribbing Machine Operator Relationship Specialty Start Date End Date Daja Kern MD [address] [place] [address] PCP - General 09/10/19 documented as of this encounter
--- OUTSIDE RECORDS SUMMARY | 2024-03-03 19:38 | XMS_ITS | Encounter Summary ---
Author Organization [facility] Healthcare Address [address] [place] [address] Care Team Providers Care Principal Java Software Engineer Name Role Phone Daja Kern MD Primary Care Provider [phone] Encounter Details Date Type Department Care Team (Latest Contact Info) Description 09/06/2021 10:01 PM CDT - 09/06/2021 11:59 PM CDT Hospital Encounter [facility] Discharge Disposition: Discharge to home or self care Social History Tobacco Use Types Packs/Day Years Used Date Smoking Tobacco: Never Smokeless Tobacco: Never Alcohol Use Standard Drinks/Week Comments No 0 (1 standard drink = 0.6 oz pur e alcohol) Comments No Sex and Gender Information Value Date Recorded Sex Assigned at Not on file 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
--- OUTSIDE RECORDS SUMMARY | 2024-03-03 19:38 | XMS_ITS | Encounter Summary ---
Author Organization [facility] Healthcare Address [address] [place] [address] Care Team Providers Care Tank Pumper Panelboard Name Role Phone Daja Kern MD Primary Care Provider [phone] Encounter Details Date Type Department Care Team (Latest Contact Info) Description 02/13/2022 9:17 PM WELL LOGGER - 02/13/2022 11:59 PM WELL LOGGER Hospital Encounter [facility] Emergency, Room [...] on file Legal Sex Female 6:59 AM WELL LOGGER Gender Identity Not on file Sexual Orientation [...] on filedocumented in this encounter Care Teams Tank Pumper Panelboard Relationship Specialty Start Date End Date Daja Kern MD [address] [place], [place] [id number] PCP - General 09/10/19 documented as of this encounter
--- OUTSIDE RECORDS SUMMARY | 2024-03-03 19:38 | XMS_ITS | Encounter Summary ---
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 Author [facility] Chronic Pain Care Plan Chronic Care Management [...] on filedocumented in this encounter Care Teams Voice Writing Reporter Relationship Specialty Start Date End Date Daja Kern MD [address] [place] [address] PCP - General 09/10/19 documented as of this encounter
--- OUTSIDE RECORDS SUMMARY | 2024-03-03 19:38 | XMS_ITS | Encounter Summary ---
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
--- OUTSIDE RECORDS SUMMARY | 2024-03-03 19:38 | XMS_ITS | Encounter Summary ---
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
--- OUTSIDE RECORDS SUMMARY | 2024-03-03 19:38 | XMS_ITS | Encounter Summary ---
Author Organization [facility] Healthcare Address [address] [place] [address] Care Team Providers Care Stock Digger Name Role Phone Daja Kern MD Primary Care Provider [phone] Encounter Details Date Type Department Care Team (Latest Contact Info) Description 06/01/2022 7:08 PM CDT - 06/01/2022 11:59 PM CDT Hospital Encounter [facility] [...] on file Legal Sex Female 6:59 AM SADDLE STITCH OPERATOR Gender Identity Not on file Sexual [...] on filedocumented in this encounter Care Teams Stock Digger Relationship Specialty Start Date End Date Daja Kern MD [address] [place] [address] PCP - General 09/10/19 documented as of this encounter
--- OUTSIDE RECORDS SUMMARY | 2024-03-03 19:38 | XMS_ITS | Encounter Summary ---
Author Organization [facility] Healthcare Address [address] [place] [address] Care Team Providers Care Corporate Communications Specialist Name Role Phone Daja Kern MD Primary Care Provider [phone] Reason for Referral * Diagnostic Imaging (Routine) - Closed Specialty Diagnoses / Procedures Referred By Contac t Referred To Contact Diagnoses Lumbar radiculopathy Procedures Imaging Lumbar/Caudal Epidural Steroid INJ ([id number]) Ander Jules NP Phone: tel: fax: [facility] [address] [place] [address] Referral ID Status Reason Start Date Expiration Date Visits Re quested Visits Authorized [id number] Closed 11/04/2022 05/05/2023 1 1 Encounter Details Date Type Department Care Team (Late st Contact Info) Description 09/20/[address] 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 She can call [facility] and schedule the appointment. Thanks Jonas * Carrie Jeffrey - 09/20/2022 3:42 PM CDT Done documented in this encounter Plan of Treatment [...] as of this encounter Results * Imaging Lumbar/Caudal Epidural Steroid INJ ([id number]) (11/04/2022 1:54 PM CDT) Narrative [facility] - 11/04/2022 1:54 PM CDT The images from this study are not interpreted by Radiology. ??Please refer to the physician's procedure / OR operative note. Ander NorwoodGretchenShweta BANK SECRECY ACT OFFICER IMG PAIN MGMT PROCEDURE S Final Result [facility] documented in this encounter Visit Diagnoses Diagnosis Lumbar radiculopathy- Primary Thoracic or lumbosacral neuritis or radiculitis, unspecified Lumbar radiculopathy Thoracic or lumbosacral neuritis or radiculitis, unspecified documented in this encounter Care Teams Corporate Communications Specialist Relationship Specialty Start Date End Date Daja Kern MD [address] [place] [address] PCP - General 09/10/19 documented as of this encounter
--- OUTSIDE RECORDS SUMMARY | 2024-03-03 19:38 | XMS_ITS | Encounter Summary ---
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
--- OUTSIDE RECORDS SUMMARY | 2024-03-03 19:38 | XMS_ITS | Encounter Summary ---
Author Organization [facility] Address [address] [facility] [address] [place] [address] Phone Care Team Providers Care Hay Farmer Name Role Phone Daja Kern MD Primary Care Provider [phone] Reason for Visit * Consultation (Routine) - Authorized Specialty Diagnoses / Procedures Referred By Contac t Referred To Contact Minimally Invasive Surgery Diagnoses Bariatric surgery status Daja Kern MD [address] [address] Phone: tel: fax: Anjali Godwin NP [address] [facility] [phone] [place] [address] Phone: tel: fax: Referral ID Status Reason Start Date Expiration Date Visits Requested Visits Authorized [id number] Authorized Specialty Services Required 03/15/2023 04/13/2024 12 12 Encounter Details Date Type Department Care Team (Late st Contact Info) Description 03/27/2023 11:00 AM GYMNASIUM TEACHER Office Visit [facility] Minimally Invasive Surgery [facility] Building [address] [place] [address] Anjali Godwin NP [address] [facility] [phone] [place] [address] BMI 50.0-59.9, adult (HCC) (Primary Dx); Confusion; Tachycardia; Uncontrolled hypertension Social History Tobacco Use Types Packs/Day Years [...] on file 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 Gender Identity Not on file Sexual Orientation Not on file documented as of this encounter Last Filed Vital Signs Vital Sign Reading Time Taken Comments Blood Pressure 160/127 03/27/2023 10:56 AM GYMNASIUM TEACHER Pulse 128 03/27/2023 10:56 AM GYMNASIUM TEACHER Temperature - - Respiratory Rate - - Oxygen Saturation 96% 03/27/2023 10: 56 AM GYMNASIUM TEACHER Inhaled Oxygen Concentration - - Weight 125.9 kg (277 lb 9.6 oz) 024 10:56 AM GYMNASIUM TEACHER Height 157.5 cm (5' 2 ) 03/27/2023 10:5 6 AM GYMNASIUM TEACHER Body Mass Index 50.77 03/27/2023 10:56 AM GYMNASIUM TEACHER documented in this encounter Progress Notes * Anjali Godwin NP - 03/27/2023 11:00 AM CST [facility] Metabolic & Weight Loss Surgery New Patient Consultation/ Evaluation Medical Obesity Management Reason for Consultation: The patient is seen in consultation for evaluation of medical problems caused by, seriously aggravated by, obesity. Requesting Provider: Daja Kern HPI: Patient presents to the clinic today to discuss weight loss options.Patient has uncontrolled blood pressure. She states she did take her blood pressure medication this morning. Patient's heart rate tachycardic and regular at this time. Patient states she does not have a headache or vision changes. Patient states she does feel confused. Review of Systems Positive for uncontrolled hypertension, tachycardia and confusion. PHYSICAL EXAMINATION: Ht: 157.5 cm (5' 2 ) Wt: 125.9 kg (277 lb 9.6 oz) BMI: Body mass index is 50.77 kg/m??. BP (!) 160/127 Pulse (!) 128 Ht 157.5 cm (5' 2 ) Wt 125.9 kg (277 lb 9.6 oz) SpO2 96% BMI50.77 kg/m?? Patient negative for: Weight gain and fatty tissue deposits at the midsection and upper back, cam facies, and between the shoulders. Negative for: purple striae on the skin of the abdomen, thighs, breasts and arms. Negative for: thinning, fragile skin that bruises easily or slow healing of cuts oracne. Constitutional: Well nourished, NAD. HENT: Head normocephalic, atraumatic, no evidence of abnormalities. No gross nasal drainage. Mouth: oral mucosa pink and moist. Neck: Soft supple without masses. Trachea midline. Eyes: Sclera clear. Conjunctivae wnl. No lid abrasions/lacerations. Respiratory: CTA. No use of accessory muscles. Good respiratory effort. Cardiovascular: tachycardic and regular Psychiatric: patient states she feels confused Extremities: slight tremor of right hand noted My total encounter time on 03/27/2023 was 15 minutes which was spent in the activities documented inthe note. This includes time spent prior to the visit and after the visit in direct care of the patient. This time does not include time spent in any separate reportable services. Anjali Godwin NP ASIUM TEACHER documented in this encounter Plan of Treatment [...] Diagnoses Diagnosis BMI 50.0-59.9, adult (HCC)- Primary Confusion Unspecified psychosis Tachycardia Unspecified tachycardia Uncontrolled hypertension documented in this encounter Orders Outpatient Referral Count Last Ordered Date Fir st Ordered Date AMB REFERRAL TO MINIMALLY INVASIVE SURGERY 1 03/27/2023 documented in this encounter Care Teams Hay Farmer Relationship Specialty Start Date End Date Daja Kern MD [address] [place] [address] PCP - General 09/10/19 documented as of this encounter
--- OUTSIDE RECORDS SUMMARY | 2024-03-03 19:38 | XMS_ITS | Encounter Summary ---
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
--- OUTSIDE RECORDS SUMMARY | 2024-03-03 19:38 | XMS_ITS | Encounter Summary ---
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 Notizza. Last revised 03-09-2017 us Alida Denton MD LAB MICROBIOLOGY - GENER AL ORDERABLES Final Result LAITH CROWLEY (TAN) 1 [facility] Department [place] [address] * (ABNORMAL) Drugs of Abuse Screen, Urine without Confirmation (07/20/2022 11:34 PM CDT) Amphetamine, ur Not Detected CutOff 500ng/mL [facility] (TAN) Comment: Interpretive Data - Amphetamines: ??Samples containing greater than 500 ng/mL d-methamphetamine ??or other cross-reacting amphetamine compounds are reported as positive. ??Amphetamine immunoassays are subject to significant false positive rates due to cross-reactivity of non-amphetamine drugs. Current Interpretive Data was last reviewed 2018. Barbiturates, ur Not Detected CutOff 200ng/mL [facility] (TAN) Comment: Interpretive Data - Barbiturates: ??Samples containing greater than 200 ng/mL secobarbital or other cross-reacting barbiturate compounds are reported as positive. ??False positive and false negative results are possible. Current Interpretive Data was last reviewed 2018. Benzodiazepines, ur Not Detected CutOff 100ng/mL [facility] [...] reviewed 2018. Cocaine, ur Detected(A) CutOff 150ng/mL [facility] (TAN) Comment: Interpretive Data - Cocaine: ??Samples containing greater than 150 ng/mL benzoylecgonine or other cross-reacting compounds are reported as positive. False positive and false negative results are possible. Current Interpretive Data was last reviewed 2018. Fentanyl, Ur Not Detected Cutoff 1 ng/mL [facility] (TAN) Comment: Interpretive Data - Fentanyls: ??Samples containing greater than 1 ng/mL fentanyl or other cross-reacting fentanyl compounds are reported as detected. ??False positive and false negative results are possible. Current Interpretive Data was last reviewed 2018. Methadone, ur Not Detected CutOff 300ng/mL LAITH CROWLEY (TAN) Comment: Interpretive Data - Methadone: ??Samples containing greater than 300 ng/mL d,l-methadone or other cross-reacting compounds are reported as positive. ??False positive and false negative results are possible. Current Interpretive Data was last reviewed 2018. Opiates, ur Not Detected CutOff 300ng/mL LAITH CROW[facility] (TAN) Comment: Interpretive Data - Opiates: ??Samples containing greater than 300 ng/mL morphine or other cross-reacting compounds are reported as positive. ??False positive and false negative results are possible. Current Interpretive Data was last reviewed 2018. Oxycodone, ur Not Detected CutOff 100ng/mL LAITH CROW[facility] (TAN) Comment: Interpretive Data - Oxycodone: ??Samples containing greater than 100 ng/mL oxycodone or other cross-reacting compounds are reported as positive. ??False positive and false negative results are possible. ?? Current Interpretive Data was last reviewed 2018. Phencyclidine, ur Not Detected CutOff 25 ng/mL LAITH CROWLEY (TAN) Comment: Interpretive Data - Phencyclidine: ??Samples containing greater than 25 ng/mL phencyclidine or other cross-reacting compounds are reported as positive. ??False positive and false negative results are possible. ?? Current Interpretive Data was last reviewed 2018. Urine Creatinine 118 mg/dL TAL CROW[facility] (TAN) Comment: Interpretive Data Urine Creatinine: < 10 mg/dL is extremely dilute = or > 10 but < 20 mg/dL is dilute = or > 20 mg/dL is normal Current Interpretive Data was last revised on 2017. Urine 07/20/2022 11:3 4 PM CDT 07/20/2022 11:38 PM CDT Narrative LA[facility] CROW[facility] (TAN) - 07/21/2022 12:01 AM CDT Drug of Abuse screening is performed by immunoassay for medical purposes only. ??This is not to be used for Pain Management purposes. us Alida Denton MD LAB URINE ORDERABLES Fin al Result Performing Organization Address City/[facility]/ZIP Co de Phone Number LAITH CROWLEY (ERHARD) 1 [facility] [place] [address] * eGFR (07/20/2022 11:21 PM CDT) eGFR 113 mL/min/1. 73 m2 LAITH CROWLEY (ERHARD) Comment: Interpretive Data Reference Interval Normal ?>/= [...] interpretive data was last reviewed 2020. Blood 07/20/2022 11:2 1 PM CDT 07/20/2022 11:25 PM CDT us Alida Denton MD LAB BLOOD ORDERABLES Fin al Result Performing Organization Address City/[facility]/ZIP Co de Phone Number LAITH CROWLEY (ERHARD) 1 [facility] [place] [address] * Differential, auto (07/20/2022 11:21 PM CDT) Neutrophil abs 5.2 1.7 - 6.5 K/cumm [facility] (TAN) Imm gran abs 0.0 0.0 - 0.1 K/cumm [facility] ([place]) Lymphocyte abs 1.7 0.8 - 3.3 K/cumm [facility] (TAN) Monocyte abs 0.4 0.2 - 0.8 K/cumm [facility] ([facility]) Eosinophil abs 0.2 0.0 - 0.5 K/cumm [facility] (TAN) Basophil abs 0.0 0.0 - 0.1 K/cumm [facility] ([facility]) Neutrophil pct 69.1 % [facility] (TAN) Comment: Interpretive Data Percent cell count reference ranges are not reported, since discordance with absolute values may lead to misinterpretation of CBC data. Current Interpretive Data was last revised on 2017. Imm gran pct 0.4 % [facility] (TAN) Comment: Interpretive Data Percent cell count reference ranges are not reported, since discordance with absolute values may lead to misinterpretation of CBC data. Current Interpretive Data was last revised on 2017. Lymphocyte pct 22.3 % [facility] (TAN) Comment: Interpretive Data Percent cell count reference ranges are not reported, since discordance with absolute values may lead to misinterpretation of CBC data. Current Interpretive Data was last revised on 2017. Monocyte pct 5.7 % [facility] (TAN) Comment: Interpretive Data Percent cell count reference ranges are not reported, since discordance with absolute values may lead to misinterpretation of CBC data. Current Interpretive Data was last revised on 2017. Eosinophil pct 2.2 % [facility] (TAN) Comment: Interpretive [...] Data was last revised on 2017. Blood 07/20/2022 11:2 1 PM CDT 07/20/2022 11:25 PM CDT Alida Denton MD LAB BLOOD ORDERABLES Fin al Result Performing Organization Address [facility] Co de Phone Number LAITH CROWLEY (ERHARD) 1 [facility] [place] [address] * Influenza A/B, RSV, and COVID-19 PCR Nasopharyngeal (07/20/2022 11:21 PM CDT) COVID-19 RNA Negative Negative [facility] (TAN) Influenza A RNA Negative Negative [facility] (TAN) Influenza B RNA Negative Negative [facility] (TAN) RSV RNA Negative Negative [facility] (TAN) Comment: Interpretive data: This test is performed using the [employer] Xpert Xpress CoV-2/Flu/RSV plus assay. This is a multiplex, real-time reverse transcriptase PCR assay intended for the qualitative detection of nucleic acid from SARS-CoV-2, influenza A, influenza B, and respiratory syncytial virus. This assay has been reviewed by the FDA for Emergency Use Authorization (EUA). The performance characteristics have been verified by the performing laboratory. Results must be considered in the clinical context, and a negative result does not rule out infection. Interpretive Data last revised 2021. Nasopharyngeal 07/20/2022 11 :21 PM CDT 07/20/2022 11:25 PM CDT Narrative [facility] (TAN) - 07/21/2022 12:15 AM CDT Is the Patient experiencing symptoms consistent with COVID?->No Reason for testing?->Bed placement or semi-private room Alida Denton MD LAB MICROBIOLOGY - GENER AL ORDERABLES Final Result Performing Organization Address [facility]/ZIP Co de Phone Number LAITH CROWLEY (TAN) 1 [place] [address] * Ethanol (07/20/2022 11:21 PM CDT) Ethanol <10 <=10 mg/dL [facility] (TAN) Comment: Interpretive Data Legal limit of intoxication > or = 80 mg/dL Levels > or = 400 mg/dL are potentially TOXIC. Current interpretive data was last revised on 2018. Blood 07/20/2022 11:2 1 PM CDT 07/20/2022 11:25 PM CDT Alida Denton MD LAB BLOOD ORDERABLES Fin al Result Performing Organization Address City/[facility]/ZIP Co de Phone Number [facility] (ERHARD) 1 [facility] [place] [address] * TSH reflex to free T4 (07/20/2022 11:21 PM CDT) [facility] TSH 1.76 0.30 - 4.20 mcIUnit/mL [facility] (TAN) Blood 07/20/2022 11:2 1 PM CDT 07/20/2022 11:25 PM CDT Alida Denton MD LAB BLOOD ORDERABLES Fin al Result Performing Organization Address City/[facility] Co de Phone Number [facility] (ERHARD) [address] [place] [address] [place] [address] * (ABNORMAL) Comprehensive metabolic panel (07/20/2022 11:21 PM CDT) [facility] Sodium 140 135 - 145 mmol/L [facility] (TAN) Potassium, pl 3.6 3.3 - 4.9 mmol/L [facility] (TAN) Chloride 101 97 - 110 mmol/L [facility] (TAN) CO2 27 22 - 32 mmol/L [facility] (TAN) Anion gap 12 2 - 15 mmol/L [facility] (TAN) BUN 14 8 - 25 mg/dL [facility] (TAN) Creatinine 0.54(L) 0.60 - 1.10 mg/dL [facility] (TAN) Glucose 154 70 - 199 mg/dL [facility] (TAN) Comment: Interpretive Data Fasting glucose >/= [...] interpretive data was last revised 2022. Calcium 9.4 8.5 - 10.3 mg/dL [facility] (TAN) Bilirubin, total 0.2 0.1 - 1.2 mg/dL [facility] (TAN) Protein, pl 7.0 6.5 - 8.5 g/dL [facility] (TAN) Albumin 3.8 3.5 - 5.0 g/dL [facility] (TAN) Alk phos 90 40 - 130 Units/L [facility] (TAN) ALT 12 7 - 45 Units/L [facility] (TAN) AST 10 10 - 45 Units/L [facility] (TAN) Blood 07/20/2022 11:2 1 PM CDT 07/20/2022 11:25 PM CDT us Alida Denton MD LAB BLOOD ORDERABLES Fin al Result [facility] (TAN) 1 [facility] Department [place] [address] * CBC with auto differential (07/20/2022 11:21 PM CDT) WBC 7.6 3.8 - 9.9 K/cumm [facility] (TAN) Hgb 13.6 11.9 - 15.5 g/dL [facility] (TAN) Hct 41.8 35.6 - 45.5 % [facility] (TAN) Plt 243 150 - 400 K/cumm [facility] (TAN) MPV 11.9 9.1 - 12.3 fL [facility] (TAN) RBC 4.66 3.90 - 5.20 M/cumm [facility] (TAN) MCV 89.7 81.3 - 96.4 fL [facility] (TAN) MCH 29.2 27.1 - 33.3 pg [facility] (TAN) MCHC 32.5 32.3 - 35.7 g/dL [facility] (TAN) RDW CV 14.0 11.1 - 14.9 % [facility] (TAN) RDW SD 45.3 35.7 - 48.1 fL [facility] (TAN) NRBC abs 0.00 0.00 - 0.01 K/cumm [facility] (TAN) Blood (Blood, Venous) 07/20/2022 11:21 PM CDT 07/20/2022 11:25 PM CDT us Alida Denton MD LAB BLOOD ORDERABLES Fin al Result Performing Organization Address City/State/[facility] Co de Phone Number LAITH CROWLEY (ERHARD) 1 [facility] Department [place] [address] documented in this encounter Visit Diagnoses Diagnosis Suicidal ideation- Primary documented in this encounter Administered Medications Inactive Administered Medications - up to 3 most recent administrations Medication Order MAR Action Action Date Dose Rate Site hydrOXYzine (VISTARIL) capsule 25 mg 25 mg, oral, 3 times daily PRN, itching, anxiety, Starting on Natalie 07/21/22 at 0520 Given 07/21/2022 6:54 AM CDT 25 mg polyethylene glycol (MIRALAX) packet 17 g 17 g, oral, 3 times daily PRN, constipation, Starting on Natalie 07/21/22 at 0217, Indications: constipationIndications:constipatio n documented in this encounter Active and Recently Administered Medications Times are shown in CDT. PRN Medication Order 07/19/2022 07/20/2022 07/21/2022 hydrOXYzine (VISTARIL) capsule 25 mg 25 mg, oral, 3 times daily PRN, itching, anxiety, Starting on Natalie 07/21/22 at 0520 0654 (Given - Provid er: Jenn Barragan RN) polyethylene glycol (MIRALAX) packet 17 g 17 g, oral, 3 times daily PRN, constipation, Starting on Natalie 07/21/22 at 0217, Indications: constipation documented in this encounter Orders Medications Ordered That Jose Alberto ht Not Have Been Administered Count Last Ordered Date First Ordered Date polyethylene glycol (MIRALAX) packet 17 g 1 07/21/2022 Nursing Count Last Ordered Date First Orde red Date MISCELLANEOUS NURSING CARE ORDER (SPECIFY) 1 07/20/2022 Consult Count Last Ordered Date First Orde red Date CONSULT TO [facility] 1 023 documented in this encounter Care Teams Crime Specialist Relationship Specialty Start Date End Date Daja Kern MD [address] [place] [address] PCP - General 09/10/19 documented as of this encounter
--- OUTSIDE RECORDS SUMMARY | 2024-03-03 19:38 | XMS_ITS | Encounter Summary ---
Author Organization [facility] Healthcare Address [address] [place] [address] Care Team Providers Care Bricklayer Name Role Phone Daja Kern MD Primary Care Provider [phone] Encounter Details Date Type Department Care Team (Late st Contact Info) Description 07/07/2022 6:07 PM CDT - 07/07/2022 6:21 PM CDT Emergency [facility] Emergency Department 1 [place] [address] Discharge Disposition: Left without being seen Social History Tobacco Use Types Packs/Day Years Used Date Smoking Tobacco: Never Smokeless Tobacco: Never Alcohol Use Standard Drinks/Week Comments No 0 (1 standard drink = 0.6 oz pur e alcohol) Comments No Sex and Gender Information Value Date Recorded Sex Assigned at Not on file 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
--- OUTSIDE RECORDS SUMMARY | 2024-03-03 19:38 | XMS_ITS | Encounter Summary ---
Author Organization [facility] Healthcare Address [address] [place] [address] Care Team Providers Care Maint Mechanic Name Role Phone Daja Kern MD Primary Care Provider [phone] Reason for Referral * Consultation (Routine) - Closed Specialty Diagnoses / Procedures Referred By Ladi aguilar Referred To Contact Physical Therapy Diagnoses Lumbar radiculopathy Ander Jules NP Phone: tel: fax: [address] [phone] Referral ID Status Reason Start Date Expiration Date V isits Requested Visits Authorized [id number] Closed Specialty Services Required 09/20/2022 10/20/2023 24 24 Question Answer PTRFR PT Evaluate and Treat Therapy options discussed with patient? Yes Location provided for therapy services is: Patient requested/Patient preferred Please select the performing region: [facility] [[id number]] # of visits: 24 Comments Please evaluate and provide treatment (1: Therapeutic exercise, 2: posture corrections, 3:patterns during functional activities, and 4: conditioning activities) and home exercise program for chronic low back pain. Encounter Details Date Type Department Care Team (Late st Contact Info) Description 09/20/2022 Telephone 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 She can call [facility] and schedule the appointment. Thanks Jonas documented in this encounter Plan of Treatment Scheduled Referrals Name Type Priority Associated Diagnoses Orde r Schedule Ambulatory referral order to Physical Therapy - Outpatient Referral Routine Lumbar radiculopathy Expected: 10/04/2022 (Approximate), Expires: 09/21/2023 documented as of this encounter Goals Goal [...] unspecified documented in this encounter Care Teams Maint Mechanic Relationship Specialty Start Date End Date Daja Kern MD [address] [place] [address] PCP - General 09/10/19 documented as of this encounter
--- OUTSIDE RECORDS SUMMARY | 2024-03-03 19:38 | XMS_ITS | Encounter Summary ---
Author Organization [facility] Healthcare Address [address] [place] [address] Care Team Providers Care Milk Tester Name Role Phone Daja Kern MD Primary Care Provider [phone] Reason for Visit * Reason Comments PT Initial Eval * Consultation (Routine) - Closed Specialty Diagnoses / Procedures Referred By Contac t Referred To Contact Physical Therapy Diagnoses Lumbar radiculopathy Ander Jules NP Phone: tel: fax: [address] [phone] Referral ID Status Reason Start Date Expiration Date V isits Requested Visits Authorized [id number] Closed Specialty Services Required 09/20/2022 10/20/2023 24 24 Encounter Details Date Type Department Care Team (Late st Contact Info) Description 10/25/2022 1:00 PM CDT Therapy [facility] [place] [address] Yaima Fisher, PT Lumbar radiculopathy (Primary Dx) Social History Tobacco [...] on file 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 female Ander Jules, ADITYA [address] [place] [address] ICD-9-CM ICD-10-CM 1. Lumbar radiculopathy 724.4 M54.16 Ambulatory referral order to Physical Therapy [...] all times. She complains of constant pain. X-rays were mostly recently performed in 2019 to her lumbar spine that demonstrated severe disc degeneration at L5. She reports that she needs PT prior to MRI. Pain: Pain location: L low back Current Pain Ratin/10 At worst Pain Ratin/10 At best Pain Ratin/10 Aggravating Factors: weight-bearing activities Alleviating Factors: heat, nothing Function: Prior Level of Function: Patient lives with her family. She does not work and is on disability. Shereports that she sleeps on an air mattress. Current Functional Level: She reports she often cries with self-care activities due to pain. She has help from family due to pain. Patient Goals: To get MRI. Objective Posture and Gait: ambulation with w/w; Lumbar AROM: 25% restricted and painful throughout Lower Extremity Strength: Left Right Hip Flexion 4-/5 4/5 Hip Extension 4-/5 4/5 Hip Abduction 4-/5 4/5 Hip Adduction 4-/5 4/5 Knee Extension 4-/5 4/5 Knee Flexion 4/5 4/5 Ankle DF 5/5 4/5 Ankle PF 5/5 4/5 Lower Extremity Flexibility: minimal tolerance to assessment; moderate restriction throughout Palpation: tenderness to palpation of L low back and SIJ Joint Accessory Motion: hypomobile throughout low back Special Tests: [place] Distraction: (-) SI Cluster: (-) L SLR: (+) L[place]: 56% disability Treatment Provided: MHP to L low back Gentle manual stretching HEP: Forward flexion stretch SKTC SLR Seated LAQ Assessment/Plan Assessment Impairments: abnormal gait, decreased mobility, lacks appropriate home exercise program, pain with function, endurance, flexibility, edema, impaired physical strength, abnormal or restricted ROM, activity tolerance Assessment details: Alona is a 51 year-old female that presents to PT evaluation with chronic low back pain. She is in severe pain and has limited tolerance to assessment activities. She has radicular symptoms to her L LE. She has a significant history of failed conservative treatment including previous PT and injections. She would benefit from skilled PT in order to attempt to address pain and restore PLOF. Prognosis: fair Goals LTG 1:: Patient will be independent and compliant with HEP. LTG 2:: Patient will reduce maximal pain levels to <6/10 in order to tolerate standing > 10 minutes. LTG 3:: Patient will improve L LE strength >1/2 grade from initial evaluation in order to improve her ability to perform transitional movements. Plan Start time: 1300 End time: 1340 Therapy options: will be seen for skilled therapy services Planned modality interventions: thermotherapy (hydrocollator packs), interferential current Planned therapy interventions: abdominal trunk stabilization, home exercise program, neuromuscular re-education, strengthening, stretching, soft tissue mobilization, functional ROM exercises, gait training, manual therapy, flexibility Frequency: 1 x/week Duration in visits: 6 visits Duration in weeks: 6 weeks Discussed with: patient Yaima Fisher PT, DPT documented in this encounter Plan of Treatment [...] or radiculitis, unspecified documented in this encounter Orders Outpatient Referral Count Last Ordered Date st Ordered Date AMB REFERRAL ORDER TO PHYSICAL THERAPY 1 documented in this encounter Care Teams Milk Tester Relationship Specialty Start Date End Date Daja Kern MD [address] [place] [address] PCP - General 09/10/19 documented as of this encounter
--- OUTSIDE RECORDS SUMMARY | 2024-03-03 19:38 | XMS_ITS | Encounter Summary ---
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
--- OUTSIDE RECORDS SUMMARY | 2024-03-03 19:38 | XMS_ITS | Encounter Summary ---
Author Organization [facility] Address [address] [place] [address] Care Team Providers Care Assortment Planner Name Role Phone Daja Kern MD Primary Care Provider [phone] Reason for Visit * Reason Comments Addiction Problem Dizziness Encounter Details Date Type Department Care Team (Late st Contact Info) Description 12/20/2022 6:02 PM CDT - 12/20/2022 9:50 PM CDT Emergency [facility] Emergency Department [address] [place] [address] Kit Yeager MD [address] [place] [address] Acute cystitis without hematuria (Primary Dx); Cocaine abuse (HCC) Discharge Disposition: Discharge to home or [...] on file 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 Gender Identity Not on file Sexual Orientation Not on file documented as of this encounter Last Filed Vital Signs Vital Sign Reading Time Taken Comments Blood Pressure 107/70 12/20/2022 8:45 PM CDT Pulse 86 12/20/2022 8:45 PM CDT Temperature 36.6 ??C (97.9 ??F) 12/20/2022 5:26 PM CD T Respiratory Rate 21 12/20/2022 8:45 PM CDT Oxygen Saturation 91% 12/20/2022 8:45 PM CDT Inhaled Oxygen Concentration - - Weight 124.7 kg (275 lb) 12/20/2022 5:26 PM CDT Height 157.5 cm (5' 2 ) 12/20/2022 5:26 PM CDT Body Mass Index 50.3 12/20/2022 5:26 PM CDT documented in this encounter Discharge Instructions * Discharge Instructions* Kit Yeager MD - 12/20/2022 9:23 PM CDT Take antibiotics as directed. Follow-up with [facility] [phone]. Avoid drug use. * Attachments The following attachments cannot be sent through Care Everywhere. * Cocaine And Crack Abuse (Algerian) * Bladder Infection, Female (Adult) (Algerian) documented in this encounter Medications at Time [...] naproxen (NAPROSYN) 500 mg tablet 10/17/2022 03/15/2023 nitrofurantoin monohydrate (MACROBID) 100 mg capsule Take 1 capsule (100 mg total) by mouth 2 (two) times a day 14 capsule 12/20/2022 09/27/2023 documented as of this encounter Ordered Prescriptions Prescription Sig Dispense Quantity Refills Last Filled Start Date End Date nitrofurantoin monohydrate (MACROBID) 100 mg capsule Take 1 capsule (100 mg total) by mouth 2 (two) times a day 14 capsule 12/20/2022 4 documented in this encounter Discharge Disposition Disposition Code Departure Means Destination Comment s Discharge to home or self care documented in this encounter ED Notes * Kit Yeager MD - 12/20/2022 6:15 PM CDT HPI Chief Complaint Patient presents with Addiction Problem Dizziness Patient having weakness and vertigo for 3 days. She has trouble walking to the bathroom. No fever. No chills. No chest pain. She has some shortness of breath and some edema on the left. She has nausea. She thinks she has yeast infection. She has been having a headache and a mild cough. She did crack cocaine 3 days in a row. She is depressed but not suicidal. Also having right upper quadrant pain. She has some dysuria. Patient History: Patient Active Problem List Diagnosis Date Noted Strain of calf muscle 02/22/2020 Adiposity 11/18/2011 Hypersomnia 11/18/2011 Obstructive sleep apnea syndrome in adult 11/18/2011 Hay fever 09/08/2011 Cough 09/08/2011 Sinusitis 09/08/2011 Allergic rhinitis due to pollen 09/08/2011 Chronic infection of sinus 09/08/2011 Past Medical History: Diagnosis Date Anemia Arthritis Depression Gastric reflux Hypercholesteremia Hypertension Thyroid disease Past Surgical History: Procedure Laterality Date SECTION CHOLECYSTECTOMY Family History Problem Relation Age of Onset Hypertension Mother Anxiety disorder Mother Diabetes Mother Arthritis Mother Social History Tobacco Use Smoking status: Never Smokeless tobacco: Never Substance and Sexual Activity Alcohol use: No Drug use: Yes Types: Crack cocaine Comment: 2x/month Sexual activity: Defer Social History Social History Narrative Not on file Review of Systems Review of Systems Constitutional: Negative for chills and fever. HENT: Negative for congestion, rhinorrhea and sore throat. Eyes: Negative for pain. Respiratory: Positive for cough and shortness of breath. Cardiovascular: Positive for leg swelling. Negative for chest pain. Gastrointestinal: Positive for abdominal pain and nausea. Negative for diarrhea and vomiting. Genitourinary: Positive for dysuria. Negative for difficulty urinating. Musculoskeletal: Negative for myalgias. Skin: Negative for rash. Neurological: Positive for dizziness and headaches. Psychiatric/Behavioral: Negative for behavioral problems. Physical Exam ED Triage Vitals [12/20/22 1726] Temp Pulse Resp BP SpO2 36.6 ??C (97.9 ??F) 96 16 125/73 97 % Temp src Heart Rate Source Patient Position BP Location FiO2 (%) Temporal -- -- -- -- Height Height Method Weight Weight Method 1.575 m (5' 2 ) Stated 124.7 kg (275 lb) Stated Physical Exam Vitals and nursing note reviewed. Constitutional: General: She is not in acute distress. Appearance: She is well-developed. Comments: Nonorthostatic HENT: Head: Normocephalic and atraumatic. Eyes: Conjunctiva/sclera: Conjunctivae normal. Cardiovascular: Rate and Rhythm: Normal rate and regular rhythm. Heart sounds: No murmur heard. Pulmonary: Effort: Pulmonary effort is normal. No respiratory distress. Breath sounds: Normal breath sounds. Abdominal: Palpations: Abdomen is soft. Tenderness: There is abdominal tenderness (RUQ). Musculoskeletal: General: No swelling. Cervical back: Neck supple. Skin: General: Skin is warm and dry. Capillary Refill: Capillary refill takes less than 2 seconds. Neurological: General: No focal deficit present. Mental Status: She is alert and oriented to person, place, and time. Sensory: No sensory deficit. Motor: No weakness. Psychiatric: Comments: Depressed mood Labs Reviewed URINALYSIS AND REFLEX TO MICROSCOPIC AND CULTURE - Abnormal Result Value Color, ur Yellow Clarity, ur Turbid (*) Specific gravity, ur 1.008 pH, urine 6.5 Protein, ur ql Negative Glucose, ur ql Negative Ketones, ur Negative Bilirubin, ur Negative Blood, ur Negative Urobilinogen, ur <2.0 Nitrite, ur Negative Leukocyte esterase, ur 3+ (*) UA reflex comment Reflex to microscopic UA will be performed. COMPREHENSIVE METABOLIC PANEL - Abnormal Sodium 137 Potassium, pl 3.9 Chloride 100 CO2 27 Anion gap 10 BUN 9 Creatinine 0.56 (*) Glucose 141 Calcium 9.0 Bilirubin, total <0.2 Protein, pl 6.7 Albumin 3.6 Alk phos 90 ALT 14 AST 10 DRUGS OF ABUSE SCREEN, URINE WITHOUT CONFIRMATION - Abnormal Amphetamine, ur Not Detected Barbiturates, ur Not Detected Benzodiazepines, ur Not Detected Cannabinoids, ur Not Detected Cocaine, ur Screen Positive, presumptive (*) Fentanyl, Ur Not Detected Methadone, ur Not Detected Opiates, ur Not Detected Oxycodone, ur Not Detected Phencyclidine, ur Not Detected Urine Creatinine 53 Narrative: Drug of Abuse screening is performed by immunoassay for medical purposes only. This is not to be used for Pain Management purposes. CBC WITH AUTO DIFFERENTIAL - Abnormal WBC 11.7 (*) Hgb 12.4 Hct 39.6 Plt 249 MPV 11.5 RBC 4.12 MCV 96.1 MCH 30.1 MCHC 31.3 (*) RDW CV 14.0 RDW SD 49.3 (*) NRBC abs 0.00 DIFFERENTIAL AUTO - Abnormal Neutrophil abs 8.3 (*) Imm gran abs 0.1 Lymphocyte abs 2.2 Monocyte abs 0.7 Eosinophil abs 0.3 Basophil abs 0.0 Neutrophil pct 71.2 Imm gran pct 0.7 Lymphocyte pct 19.0 Monocyte pct 6.2 Eosinophil pct 2.6 Basophil pct 0.3 URINALYSIS, MICROSCOPIC ONLY - Abnormal WBC, ur 6-10 (*) RBC, ur 0-2 Epithelial cells, squamous, ur 11-20 (*) Bacteria, ur 4+ (*) Culture Reflex Comment Value: Reflex conditions for urine culture (WBC >10) not met. GRAM STAIN YEAST Direct Specimen Exam Value: Stain: No Yeast or Fungal elements seen TROPONIN T HIGH-SENSITIVITY SERIES (BASELINE, 2HR, 4HR, 6HR) Trop T hs [address] Head WO Contrast Final Result CT Abdomen Pelvis WO Contrast Final Result MDM Medical Decision Making Patient presents with dizziness, weakness, abdominal pain, dysuria. Recent crack cocaine use. Amount and/or Complexity of Data Reviewed Labs: ordered. Details: Urine drug screen: Positive cocaine. Urine shows infection. White blood cells 11.7. Radiology: ordered. Details: CT head: Nothing acute CT abdomen: Nephrocalcinosis ECG/medicine tests: ordered and independent interpretation performed. Details: EKG: Sinus rhythm, rate 94, nonspecific ST, T-wave changes Discussion of management or test interpretation with external provider(s): Differential diagnosis: Dehydration, UTI, cocaine abuse, abdominal infection. Patient given IV fluids. She has UTI which canbe treated as an outpatient. Discussed with [facility]. They will follow-up with patient tomorrow. Risk Prescription drug management. Final diagnoses: Acute cystitis without hematuria Cocaine abuse ([facility]) Kit Yeager MD 12/20/222126 Kit Yeager MD 12/20/222130 * Taylor Reyez RN - 12/20/2022 5:24 PM CDT Pt presents with complaints of weakness and dizziness. Pt states I can hardly walk. I can't even get myself to the toilet sometime. And I'm really depressed . Pt reports symptoms started 3 days ago.Pt denies any recent illness. Pt has not contacted PCP. Pt admits I was smoking crack for 3 days. I need to go into rehab. I need help and I don't know what to do or where to start . Pt also adds that she thinks she has a yeast infection. documented in this encounter Miscellaneous Notes * ED Procedure Note - Kit Yeager MD - 12/20/2022 6:19 PM CDTAssociated Order(s): ECG 12 lead Procedure ECG 12 lead Date/Time: 12/20/2022 6:19 PM Performed by: Kit Yeager MD Authorized by: Kit Yeager MD Rate: ECG rate: 94 ECG rate assessment: normal Rhythm: Rhythm: sinus rhythm ST segments: ST segments: Non-specific T waves: T waves: non-specific Interpretation: Interpretation: abnormal Kit Yeager MD 12/20/221818 documented in this encounter Plan of Treatment [...] Name Priority Date/Time Associated Diagnosis Comments URINALYSIS AND REFLEX TO MICROSCOPIC AND CULTURE STAT 12/20/2022 7:40 PM CDT DRUGS OF ABUSE SCREEN, URINE WITHOUT CONFIRMATION STAT 12/20/2022 7:40 PM CDT URINALYSIS, MICROSCOPIC ONLY STAT 12/20/2022 7:[address] HEAD WO CONTRAST ED 12/20/2022 7 :[address] ABDOMEN PELVIS WO CONTRAST ED 12/20/2022 7:07 PM CDT DIFFERENTIAL AUTO STAT 12/20/2022 6:3 0 PM CDT GRAM STAIN YEAST Routine 12/20/2022 6:30 PM CDT CBC WITH AUTO DIFFERENTIAL STAT 12/20/2022 6:30 PM CDT TROPONIN T HIGH-SENSITIVITY SERIES (BASELINE, 2HR, 4HR, 6HR) STAT 12/20/2022 5:41 PM CDT EGFR STAT 12/20/2022 5:41 PM CDT COMPREHENSIVE METABOLIC PANEL STAT 12/20/2022 5:41 PM CDT ECG 12-LEAD STAT 12/20/2022 5:35 PM CDT documented in this encounter Results * (ABNORMAL) Urinalysis, microscopic only (12/20/2022 7:40 PM CDT) WBC, ur 6-10(A) 0 - 5 /HPF [facility] ([place]) RBC, ur 0-2 0 - 2 /HPF [facility] ([place]) Epithelial cells, squamous, ur 11-20(A) 0 - 5 /HPF [facility] ([place]) Bacteria, ur 4+(A) [facility] ([place]) Culture Reflex Comment Reflex conditions for urine culture (WBC >10) not met. [facility] ([place]) Urine 12/20/2022 7:40 PM CDT 12/20/2022 7:48 PM CDT Kit Yeager MD LAB URINE ORDERABLES Final R esult Performing Organization Address City/[facility]/ZIP Co de Phone Number [facility] (TAN) 1 [facility] [place] [address] * (ABNORMAL) Urinalysis reflex to microscopic and culture Urine (12/20/2022 7:40 PM CDT) Color, ur Yellow Yellow [facility] ([place]) Clarity, ur Turbid(A) Clear [facility] ([place]) Specific gravity, ur 1.008 1.003 - 1.030 [facility] ([place]) pH, [...] tendency for uric acid stone formation. Source: [facility] ibeatyou Current Interpretive Data was last revised on 2017 Protein, ur ql Negative Negative [facility] ([place]) Glucose, ur ql Negative Negative [facility] ([place]) Ketones, ur Negative Negative [facility] ([place]) Bilirubin, ur Negative Negative [facility] ([place]) Blood, ur Negative Negative [facility] ([place]) Urobilinogen, ur <2.0 <2.0 mg/dL [facility] ([place]) Nitrite, ur Negative Negative [facility] ([place]) Leukocyte esterase, ur 3+(A) Negative [facility] ([place]) UA reflex comment Reflex to microscopic UA will be performed. [facility] ([place]) Urine 12/20/2022 7:40 PM CDT 12/20/2022 7:48 PM CDT us Kit Yeager MD LAB MICROBIOLOGY - GENERAL O RDERABLES Final Result Performing Organization Address City/[facility]/ZIP Co de Phone Number [facility] (TAN) 1 [facility] [place] [address] * (ABNORMAL) Drugs of Abuse Screen, Urine without Confirmation (12/20/2022 7:40 PM CDT) [facility] Amphetamine, ur Not Detected CutOff 500ng/mL [facility] [...] last reviewed 2022. Fentanyl, Ur Not Detected Cutoff 1 ng/mL [facility] ([place]) Comment: Interpretive Data - Fentanyl: ??Samples containing greater than 1 ng/mL fentanyl or other cross-reacting fentanyl compounds are reported as positive. ??False positive and false negative results are possible. Confirmatory testing required for definitive results. Current Interpretive Data was last reviewed 2022. Methadone, ur Not Detected CutOff 300ng/mL [facility] [...] Data was last reviewed 2022. Urine Creatinine 53 mg/dL [facility] (T[facility]) Comment: Interpretive Data Urine Creatinine: < 10 mg/dL is extremely dilute = or > 10 but < 20 mg/dL is dilute = or > 20 mg/dL is normal Current Interpretive Data was last revised on 2017. Urine 12/20/2022 7:40 PM CDT 12/20/2022 7:48 PM CDT Narrative [facility] ([place]) - 12/20/2022 8:16 PM CDT Drug of Abuse screening is performed by immunoassay for medical purposes only. ??This is not to be used for Pain Management purposes. Kit Yeager MD LAB URINE ORDERABLES Final R esult [facility] ([place]) 1 [facility] [place] [address] * CT Abdomen Pelvis WO Contrast (12/20/2022 7:07 PM CDT) Anatomical Region Laterality Modality Body N/A Computed Tomogra phy 12/20/2022 7:18 PM CDT Narrative 12/20/2022 7:27 PM CDT EXAM DESCRIPTION: ?? CT ABDOMEN PELVIS WO CONTRAST REASON FOR STUDY: ?? Abdominal pain, acute, nonlocalized ?? Patient having generalized weakness and vertigo for 3 days. ??She has trouble walking to the bathroom. ??No fever. ??No chills. ??No chest pain. ??She has some shortness of breath. ??She has nausea. ??She thinks she has yeast infection. ?? She has been having a ?? headache and a mild cough. ??She did crack cocaine 3 days in a row. ??She is depressed but not suicidal. ??Also having right upper quadrant pain. History of cholecystectomy. ? TECHNIQUE: CT scan of the abdomen and pelvis performed without intravenous and without ??oral contrast using helical scanning technique. Reconstructed coronal and sagittal MPR images reviewed. All images stored on PACS. Automated exposure control was used as a dose optimization technique for this examination. COMPARISON: ?? 11/18/2019, 09/10/2019, 09/28/2011, 08/21/2009 REFERENCE: Per ACR white paper recommendations, unless otherwise specified no follow-up imaging is recommended for incidental renal and adrenal lesions per consensus recommendations based on imaging criteria. Further lab evaluation could be pursued based on clinical findings. FINDINGS: The sensitivity for detection of visceral lesions is diminished without the use of intravenous contrast. LOWER CHEST: ?? Mild subsegmental atelectasis. ??No pleural effusion. ??Imaged portions of the heart are normal. LIVER: ?? Normal size. ??There is a hypoattenuating lesion with lobulated borders in the posterior right hepatic lobe measuring up to 35 mm which likely reflects a cyst considering Hounsfield unit characteristics. ??Additional subcentimeter hypoattenuating lesions within the liver are present which are too small to characterize on this noncontrast CT study. GALLBLADDER: ?? Prior cholecystectomy. BILE DUCTS: ?? No intrahepatic or extrahepatic ductal dilatation. SPLEEN: ?? Normal size. ??No focal lesions. ?? A splenule is present. PANCREAS: ?? No identified cystic or solid masses. ??No significant calcifications. No adjacent inflammation or peripancreatic fluid collections. Pancreatic duct not dilated. ADRENALS: ?? Normal. KIDNEYS/URINARY TRACT: There is hyperattenuation of bilateral renal pyramids which can be seen with medullary nephrocalcinosis. ??Nonobstructive punctate bilateral renal calculi. ?? No identified significant cystic or solid masses. No hydronephrosis or hydroureter. ?Urinary bladder is unremarkable. ?? There is a 7 mm calcified structure which abuts the superior margin of the urinary bladder which could reflect a region of fat necrosis. GI: ?? The stomach is normal. ??The small bowel and colon are normal in course and caliber with no evidence of obstruction or inflammation. ??Colonic diverticulosis with no CT evidence of acute diverticulitis. ??Normal appendix. PERITONEUM: ?? No ascites or free air. ?? No lymphadenopathy. RETROPERITONEUM: ?? No mass or adenopathy. REPRODUCTIVE: ?? No significant abnormality. VASCULATURE: ?? No abdominal aortic aneurysm. MUSCULOSKELETAL: ?? No acute fractures or aggressive osseous lesions. ??Chronic bilateral L5 pars interarticularis defects with grade 1 anterolisthesis of L5 on S1 with severe degenerative disc disease at this level. IMPRESSION: 1. ??Colonic diverticulosis. ??No CT evidence of acute diverticulitis. 2. ??Hyperattenuation of bilateral renal pyramids which can be seen with medullary nephrocalcinosis. Nonobstructive punctate bilateral renal calculi. ?? No hydronephrosis or hydroureter. 3. Chronic bilateral L5 pars interarticularis defects with grade 1 anterolisthesis of L5 on S1 with severe degenerative disc disease at this level. THIS IS AN ELECTRONICALLY VERIFIED FINAL REPORT 12/20/2022 7:27 PM - Electronically signed by ??Nela August M.D. AT: AT D: ??12/20/2022 7:27 PM T: ??12/20/2022 7:27 PM Report ID: [id number] Reading Location: ??[id number] Procedure Note Nela August MD - 12/20/2022 EXAM DESCRIPTION: CT ABDOMEN PELVIS WO CONTRAST REASON FOR STUDY: Abdominal pain, acute, nonlocalized Patient having generalized weakness and vertigo for 3 days. She hastrouble walking to the bathroom. No fever. No chills. No chest pain. She hassome shortness of breath. She has nausea. She thinks she has yeast infection. She has been having a headache and a mild cough. She did crack cocaine3 days in a row. She is depressed but not suicidal. Also having rightupper quadrant pain. History of cholecystectomy. TECHNIQUE: CT scan of the abdomen and pelvis performed without intravenousand without oral contrast using helical scanning technique. Reconstructed coronal and sagittal MPR images reviewed. All images stored on PACS.Automated exposure control was used as a dose optimization technique for this examination. COMPARISON: 11/18/2019, 09/10/2019, 09/28/2011, 08/21/2009 REFERENCE: Per ACR white paper recommendations, unless otherwise specifiedno follow-up imaging is recommended for incidental renal and adrenal lesionsper consensus recommendations based on imaging criteria. Further labevaluation could be pursued based on clinical findings. FINDINGS: The sensitivity for detection of visceral lesions is diminished withoutthe use of intravenous contrast. LOWER CHEST: Mild subsegmental atelectasis. No pleural effusion.Imaged portions of the heart are normal. LIVER: Normal size. There is a hypoattenuating lesion with lobulated borders in the posterior right hepatic lobe measuring up to 35 mm whichlikely reflects a cyst considering Hounsfield unit characteristics. Additional subcentimeter hypoattenuating lesions within the liver are present whichare too small to characterize on this noncontrast CT study. GALLBLADDER: Prior cholecystectomy. BILE DUCTS: No intrahepatic or extrahepatic ductal dilatation. SPLEEN: Normal size. No focal lesions. A splenule is present. PANCREAS: No identified cystic or solid masses. No significant calcifications. No adjacent inflammation or peripancreatic fluidcollections. Pancreatic duct not dilated. ADRENALS: Normal. KIDNEYS/URINARY TRACT: There is hyperattenuation of bilateral renalpyramids which can be seen with medullary nephrocalcinosis. Nonobstructivepunctate bilateral renal calculi. No identified significant cystic or solidmasses. No hydronephrosis or hydroureter. Urinary bladder is unremarkable.There is a 7 mm calcified structure which abuts the superior margin of theurinary bladder which could reflect a region of fat necrosis. GI: The stomach is normal. The small bowel and colon are normal incourse and caliber with no evidence of obstruction or inflammation. Colonic diverticulosis with no CT evidence of acute diverticulitis. Normalappendix. PERITONEUM: No ascites or free air. No lymphadenopathy. RETROPERITONEUM: No mass or adenopathy. REPRODUCTIVE: No significant abnormality. VASCULATURE: No abdominal aortic aneurysm. MUSCULOSKELETAL: No acute fractures or aggressive osseous lesions.Chronic bilateral L5 pars interarticularis defects with grade 1 anterolisthesis ofL5 on S1 with severe degenerative disc disease at this level. IMPRESSION: 1. Colonic diverticulosis. No CT evidence of acute diverticulitis. 2. Hyperattenuation of bilateral renal pyramids which can be seen with medullary nephrocalcinosis. Nonobstructive punctate bilateral renalcalculi. No hydronephrosis or hydroureter. 3. Chronic bilateral L5 pars interarticularis defects with grade 1 anterolisthesis of L5 on S1 with severe degenerative disc disease at this level. THIS IS AN ELECTRONICALLY VERIFIED FINAL REPORT 12/20/2022 7:27 PM - Electronically signed by Nela August M.D. AT: AT Report ID: [id number] Reading Location: [id number] us Kit Yeager MD IMG CT PROCEDURES Final Resu lt * CT Head WO Contrast (12/20/2022 7:07 PM CDT) Anatomical Region Laterality Modality Head and Neck N/A Computed Tomogra phy 12/20/2022 7:14 PM CDT Narrative 12/20/2022 7:16 PM CDT EXAM DESCRIPTION: CT HEAD WO CONTRAST REASON FOR STUDY: Dizziness, persistent/recurrent, cardiac or vascular cause suspected ?? Patient having generalized weakness and vertigo for 3 days. ??She has trouble walking to the bathroom. ??No fever. ??No chills. ??No chest pain. ??She has some shortness of breath. ??She has nausea. ??She thinks she has yeast infection. ?? She has been having a ?? headache and a mild cough. ??She did crack cocaine 3 days in a row. ??She is depressed but not suicidal. ??Also having right upper quadrant pain. History of cholecystectomy. ? TECHNIQUE: Axial images acquired through the brain without intravenous contrast. ??Images stored on PACS. ?? Automated exposure control was used as a dose optimization technique for this examination. COMPARISON: None available FINDINGS: BRAIN: ?? No hemorrhage, edema or mass effect. No recent infarct. ?Normal white matter. ? EXTRA-AXIAL SPACES: ?? No fluid collections. No masses. CALVARIUM: ?? No fracture. SINUSES/MASTOIDS: ?? No fluid or mucosal thickening. ORBITS: ?? No significant abnormality. OTHER: ?? No other significant abnormality. IMPRESSION: No acute intracranial findings. THIS IS AN ELECTRONICALLY VERIFIED FINAL REPORT 12/20/2022 7:16 PM - Electronically signed by ??Anjum Avila M.D. KN: MOISÉS D: ??12/20/2022 7:16 PM T: ??12/20/2022 7:16 PM Report ID: [id number] Reading Location: ??[id number] Procedure Note Anjum Avila MD - 12/20/2022 EXAM DESCRIPTION: CT HEAD WO CONTRAST REASON FOR STUDY: Dizziness, persistent/recurrent, cardiac or vascularcause suspected Patient having generalized weakness and vertigo for 3 days. She hastrouble walking to the bathroom. No fever. No chills. No chest pain. She hassome shortness of breath. She has nausea. She thinks she has yeast infection. She has been having a headache and a mild cough. She did crack cocaine3 days in a row. She is depressed but not suicidal. Also having rightupper quadrant pain. History of cholecystectomy. TECHNIQUE: Axial images acquired through the brain without intravenous contrast. Images stored on PACS. Automated exposure control was used asa dose optimization technique for this examination. COMPARISON: None available FINDINGS: BRAIN: No hemorrhage, edema or mass effect. No recent infarct. Normal white matter. EXTRA-AXIAL SPACES: No fluid collections. No masses. CALVARIUM: No fracture. SINUSES/MASTOIDS: No fluid or mucosal thickening. ORBITS: No significant abnormality. OTHER: No other significant abnormality. IMPRESSION: No acute intracranial findings. THIS IS AN ELECTRONICALLY VERIFIED FINAL REPORT 12/20/2022 7:16 PM - Electronically signed by Anjum Avila M.D. KN: MOISÉS Report ID: [id number] Reading Location: [place] [address] Kit Yeager MD IMG CT PROCEDURES Final Resu lt * (ABNORMAL) Differential, auto (12/20/2022 6:30 PM CDT) Neutrophil abs 8.3(H) 1.7 - 6.5 K/cumm [facility] ([facility]) Imm gran abs 0.1 0.0 - 0.1 K/cumm [facility] ([place]) Lymphocyte abs 2.2 0.8 - 3.3 K/cumm [facility] ([place]) Monocyte abs 0.7 0.2 - 0.8 K/cumm [facility] ([place]) Eosinophil abs 0.3 0.0 - 0.5 K/cumm [facility] ([place]) Basophil abs 0.0 0.0 - 0.1 K/cumm [facility] ([place]) Neutrophil pct 71.2 % [facility] ([place]) Comment: Interpretive Data Percent cell count reference ranges are not reported, since discordance with absolute values may lead to misinterpretation of CBC data. Current Interpretive Data was last revised on 2017. Imm gran pct 0.7 % [facility] ([facility]) Comment: Interpretive Data Percent cell count reference ranges are not reported, since discordance with absolute values may lead to misinterpretation of CBC data. Current Interpretive Data was last revised on 2017. Lymphocyte pct 19.0 % [facility] ([facility]) Comment: Interpretive Data Percent cell count reference ranges are not reported, since discordance with absolute values may lead to misinterpretation of CBC data. Current Interpretive Data was last revised on 2017. Monocyte pct 6.2 % [facility] ([place]) Comment: Interpretive Data Percent cell count reference ranges are not reported, since discordance with absolute values may lead to misinterpretation of CBC data. Current Interpretive Data was last revised on 2017. Eosinophil pct 2.6 % [facility] ([facility]) Comment: Interpretive [...] Data was last revised on 2017. Blood 12/20/2022 6:30 PM CDT 12/20/2022 6:32 PM CDT Kit Yeager MD LAB BLOOD ORDERABLES Final R esult [facility] ([place]) 1 [facility] [place] [address] * (ABNORMAL) CBC with auto differential (12/20/2022 6:30 PM CDT) WBC 11.7(H) 3.8 - 9.9 K/cumm [facility] ([facility]) Hgb 12.4 11.9 - 15.5 g/dL [facility] ([facility]) Comment: Interpretive Data A reference range for this assay has not been established for patients with an unknown legal sex. Please refer to the laboratory test catalog for established sex-specific reference intervals. Current interpretive data was last revised on 2022. Hct 39.6 35.6 - 45.5 % [facility] ([facility]) Comment: Interpretive Data A reference range for this assay has not been established for patients with an unknown legal sex. Please refer to the laboratory test catalog for established sex-specific reference intervals. Current interpretive data was last revised on 2022. Plt 249 150 - 400 K/cumm [facility] ([place]) MPV 11.5 9.1 - 12.3 fL [facility] ([place]) RBC 4.12 3.90 - 5.20 M/cumm [facility] ([facility]) Comment: Interpretive Data A reference range for this assay has not been established for patients with an unknown legal sex. Please refer to the laboratory test catalog for established sex-specific reference intervals. Current interpretive data was last revised on 2022. MCV 96.1 81.3 - 96.4 fL [facility] ([place]) MCH 30.1 27.1 - 33.3 pg [facility] ([facility]) MCHC 31.3(L) 32.3 - 35.7 g/dL [facility] ([place]) RDW CV 14.0 11.1 - 14.9 % [facility] ([place]) RDW SD 49.3(H) 35.7 - 48.1 fL [facility] ([place]) NRBC abs 0.00 0.00 - 0.01 K/cumm [facility] ([place]) Blood 12/20/2022 6:30 PM CDT 12/20/2022 6:32 PM CDT Kit Yeager MD LAB BLOOD ORDERABLES Final R esult [facility] ([place]) 1 [facility] [place] [address] * Gram stain yeast Vaginal (12/20/2022 6:30 PM CDT) Direct Specimen Exam Stain: No Yeast or Fungal elements seen [facility] ([facility]) Vaginal 12/20/2022 6:30 PM CDT 12/20/2022 7:37 PM CDT us Kit Yeager MD LAB MICROBIOLOGY - GENERAL O RDERABLES Final Result Performing Organization Address City/[facility]/ZIP Co de Phone Number [facility] ([place]) 1 [facility] [place] [address] * eGFR (12/20/2022 5:41 PM CDT) eGFR 111 mL/min/1. 73 m2 [facility] ([place]) Comment: Interpretive Data Reference Interval Normal ?>/= [...] interpretive data was last reviewed 2020. Blood 12/20/2022 5:41 PM CDT 12/20/2022 5:46 PM CDT us Jadiel Gan MD LAB BLOOD ORDERABLES Final Result [facility] ([place]) 1 [facility] [place] [address] * Troponin T high-sensitivity series (baseline, 2hr, 4hr, 6hr) (12/20/2022 5:41 PM CDT) Trop T hs 8 <=14 ng/L [facility] ([facility]) Comment: Interpretive Data For further hscTnT resources including the diagnostic algorithm and an aid in interpretation, copy and paste this link: https://nrl.testcatalog.org/show/hsTrop Current Interpretive Data last revised 2020. Blood 12/20/2022 5:41 PM CDT 12/20/2022 5:46 PM CDT us Kit Yeager MD LAB BLOOD ORDERABLES Final R esult [facility] ([place]) 1 [facility] [place] [address] * (ABNORMAL) Comprehensive metabolic panel (12/20/2022 5:41 PM CDT) Sodium 137 135 - 145 mmol/L [facility] ([facility]) Potassium, pl 3.9 3.3 - 4.9 mmol/L [facility] ([facility]) Chloride 100 97 - 110 mmol/L [facility] ([facility]) CO2 27 22 - 32 mmol/L [facility] ([facility]) Anion gap 10 2 - 15 mmol/L [facility] ([facility]) BUN 9 6 - 25 mg/dL [facility] ([facility]) Creatinine 0.56(L) 0.60 - 1.10 mg/dL [facility] ([facility]) Glucose 141 70 - 199 mg/dL [facility] Comment: Interpretive Data Fasting glucose [...] interpretive data was last revised 2022. Calcium 9.0 8.5 - 10.3 mg/dL [facility] Bilirubin, total <0.2 0.1 - 1.2 mg/dL [facility] Protein, pl 6.7 6.5 - 8.5 g/dL [facility] ([facility]) Albumin 3.6 3.5 - 5.0 g/dL [facility] ([facility]) Alk phos 90 40 - 130 Units/L [facility] ([facility]) ALT 14 7 - 45 Units/L [facility] ([facility]) AST 10 10 - 45 Units/L [facility] Blood 12/20/2022 5:41 PM CDT 12/20/2022 5:46 PM CDT Kit Yeager MD LAB BLOOD ORDERABLES Final R esult Performing Organization Address [facility] de Phone Number [facility] (TAN) 1 [facility] Department [place] [address] * ECG 12 lead (12/20/2022 5:35 PM CDT) 12/20/2022 5:35 PM CDT Narrative [facility] - 12/21/2022 8:08 AM CDT Vent Rate: 94 bpm RR Interval: 636 msec CO Interval: 118 msec QRS Duration: 102 msec QT Interval: 354 msec QTC Interval: 406 msec P-R-T [employer]: 4 - -15 - 17 degrees IMPRESSION: SINUS RHYTHM WITH SHORT CO INTERVAL VOLTAGE CRITERIA FOR LVH ??[MEETS CRITERIA IN ONE OF: R(aVL), S(V1), R(V5), R(V5/V6)+S(V1)] ABNORMAL ECG No change from prior EKG Electronically Signed By: Jabari Mills MD Kit Yeager MD ECG ORDERABLES Final Result Performing Organization Address [facility] Co de Phone Number [facility] documented in this encounter Visit Diagnoses Diagnosis Acute cystitis without hematuria- Primary Cocaine abuse (HCC) Nondependent cocaine abuse, unspecified documented in this encounter Administered Medications Inactive Administered Medications - up to 3 most recent administrations Medication Order MAR Action Action Date Dose Rate Site fluconazole (DIFLUCAN) tablet 200 mg 200 mg, oral, Once, On 12/20/22 at 1854, For 1 dose, Indications: Skin/Soft Tissue InfectionIndications:Skin/Soft Tissue Infection Given 12/20/2022 7:32 PM CDT 200 mg ondansetron (ZOFRAN) injection 4 mg 4 mg, intravenous, Administer over 2 Minutes, Once, On 12/20/22 at 1814, For 1 dose Given 12/20/2022 6:26 PM CDT 4 mg sodium chloride 0.9% bolus 1,000 mL 1,000 mL, intravenous, Once, On 12/20/22 at 1814, For 1 dose New Bag 12/20/2022 6:26 PM CDT 1,000 mL documented in this encounter Active and Recently Administered Medications Times are shown in CDT. Scheduled Medication Order 12/18/2022 12/19/2022 12/20/2022 fluconazole (DIFLUCAN) tablet 200 mg (COMPLETED) 200 mg, oral, Once, On 12/20/22 at 1854, For 1 dose, Indications: Skin/Soft Tissue Infection 193 (Given - Provid er: Cookie David RN) ondansetron (ZOFRAN) injection 4 mg (COMPLETED) 4 mg, intravenous, Administer over 2 Minutes, Once, On 12/20/22 at 1814, For 1 dose 1826 (Given - Provid er: Nasima Dunn, AGUILA) sodium chloride 0.9% bolus 1,000 mL (COMPLETED) 1,000 mL, intravenous, Once, On 12/20/22 at 1814, For 1 dose 182 (New Bag - Prov ider: Nasima Dunn, RN)2150 (Stopped - Provider: Karoline Esteban RN) documented in this encounter Care Teams Assortment Planner Relationship Specialty Start Date End Date Daja Kern MD [address] [place] [address] PCP - General 09/10/19 documented as of this encounter
--- OUTSIDE RECORDS SUMMARY | 2024-03-03 19:38 | XMS_ITS | Encounter Summary ---
Author Organization [facility] Healthcare Address [address] [place] [address] Care Team Providers Care Sales Enablement Manager Name Role Phone Daja Kern MD Primary Care Provider [phone] Encounter Details Date Type Department Care Team (Latest Contact Info) Description 01/07/2023 8:44 AM CHORE WORKER - 01/07/2023 11:59 PM CHORE WORKER Hospital Encounter [facility] Emergency, Room [...] on file Legal Sex Female 6:59 AM CHORE WORKER Gender Identity Not on file Sexual Orientation [...] (NEURONTIN) 300 mg capsuleIndications:N europathic Pain Take 1 capsule (300 mg total) by mouth 3 (three) times a day 90 capsule 1 08/25/2022 3 haloperidoL (HALDOL) 5 mg tablet 07/26/2022 4 metoprolol XL (TOPROL-XL) 25 mg extended release tablet 2 tablets (50 mg total) daily 08/22/2022 4 naproxen (NAPROSYN) 500 mg tablet 10/17/2022 4 nitrofurantoin monohydrate (MACROBID) 100 mg capsule Take 1 capsule (100 mg total) by mouth 2 (two) times a day 14 capsule 12/20/2022 4 documented as of this encounter Discharge [...] filedocumented in this encounter Care Teams Sales Enablement Manager Relationship Specialty Start Date End Date Daja Kern MD [address] [place] [address] PCP - General 09/10/19 documented as of this encounter
--- OUTSIDE RECORDS SUMMARY | 2024-03-03 19:38 | XMS_ITS | Encounter Summary ---
Author Organization [facility] Healthcare Address [address] [place] [address] Care Team Providers Care Production Drilling Machine Operator Name Role Phone Daja Kern MD Primary Care Provider [phone] Reason for Referral * Consultation (Routine) - Closed Specialty Diagnoses / Procedures Referred By Contac t Referred To Contact Pain Management Diagnoses Lumbar radiculopathy Daja Kern MD [address] [place] [address] Phone: tel: fax: [address] [phone] Referral ID Status Reason Start Date Expiration Date V isits Requested Visits Authorized [id number] Closed Specialty Services Required 07/13/2022 08/12/2023 1 1 Question Answer Please select the performing region: [facility] [152] # of visits: 1 Reason for Visit * Consultation (Routine) - Closed Specialty Diagnoses / Procedures Referred By Contac t Referred To Contact Pain Management Diagnoses Lumbar radiculopathy Daja Kern MD [address] [place] [address] Phone: tel: fax: [address] [phone] Referral ID Status Reason Start Date Expiration Date V isits Requested Visits Authorized [id number] Closed Specialty Services Required 07/13/2022 08/12/2023 1 1 Encounter Details Date Type Department Care Team (Latest Contact Info) Description 08/25/2022 12:30 PM CDT - 08/25/2022 11:59 PM CDT Hospital Encounter [facility] the [facility] [address] [facility] [address] [place] [address] Ander Jules NP [address] [place] [address] Lumbar radiculopathy Discharge Disposition: Discharge to home [...] on file Legal Sex Female 6:59 AM PATIENT SUPPORT SPECIALIST Gender Identity Not on file Sexual Orientation Not on file documented as of this encounter Last Filed Vital Signs Vital Sign Reading Time Taken Comments Blood Pressure 160/118 08/25/2022 1:12 PM CDT Pulse 114 08/25/2022 1:12 PM CDT Temperature 37 ??C (98.6 ??F) 08/25/2022 1:12 PM CDT Respiratory Rate 20 08/25/2022 1:12 PM CDT Oxygen Saturation 93% 08/25/2022 1:12 PM CDT Inhaled Oxygen Concentration - - Weight 120.6 kg (265 lb 12.8 oz) 08/25/2022 1:12 PM CDT Height 157.5 cm (5' 2 ) 08/25/2022 1:12 PM CDT Body Mass Index 48.62 08/25/2022 1:12 PM CDT documented in this encounter Discharge Instructions * Patient Instructions* Rosemarie Kat RN - 08/25/2022 1:00 PM CDT [facility] DISCHARGE INSTRUCTIONS MEDICATIONS: [x] Continue your current home medications Stop: baclofen Start: Methocarbamol 500mg, three times a day. Titrate per the below Wait to start med after 2 weeks of gabapentin Dosing Schedule For: Methocarbamol Week Morning Noon Bedtime 1 500mg 2 500mg 500mg 3 500mg 500mg 500mg Start: gabapentin 300mg, three times a day. Titrate per the below Dosing Schedule For: Gabapentin Week Morning Noon Bedtime 1 300mg 2 300mg 300mg 3 300mg 300mg 300mg [x] Notify your pharmacy for refill(s) 7 days before you are out of your medication. DIET: [x] Resume normal diet [] See [facility] Post Discharge Procedure Information Sheet ACTIVITY: [x] Resume normal activity [] See [facility] Post Discharge Procedure Information Sheet REFERRALS: Neurosurgery at the [facility] - call [phone] to schedule your appointment Diagnostic Test(s): Lumbar MRI EDUCATION provided on the following: [] Spinal Cord Stimulator Education and DVD. Vendor: FOLLOW UP APPOINTMENTS: [] Return as needed [x] Follow up appointment: *Need help with MyChart? Call [phone]. Patient provided information and repeated back with understanding. If you need to reach us: For any questions about your procedure, please call the Pain Management Center [phone] (M-F) (8am-4pm) If you need urgent attention after 5 pm and weekends: Call the [facility] [employer] Thru 12 Visiting Teacher at [phone] and ask for the Pain Service doctor owner professional engineer. * Attachments The following attachments cannot be sent through Care Everywhere. * Gabapentin (By mouth) (Dominican) * Methocarbamol (By mouth) (Dominican) documented in this encounter Medications at Time of Discharge albuterol HFA (PROVENTIL HFA,VENTOLIN HFA,PROAIR HFA) 90 mcg/actuation inhaler Inhale 2 puffs every 6 (six) hours as needed 02/10/2022 benztropine (COGENTIN) 0.5 mg tablet 08/22/2022 irbesartan (AVAPRO) 150 mg tablet Take 1 tablet (150 mg total) by mouth daily 10/18/2019 levothyroxine (SYNTHROID) 50 mcg tablet 11/12/2019 lidocaine (LIDODERM) 5 % 07/26/2022 omeprazole (PriLOSEC) 40 mg capsule Take 1 capsule (40 mg total) by mouth daily 02/06/2019 simvastatin (ZOCOR) 10 mg tablet 11/12/2019 traZODone (DESYREL) 100 mg tablet TK 1 T PO HS 09/24/2019 methocarbamoL (ROBAXIN) 500 mg tabletIndications :Muscle Spasm Take 1 tablet (500 mg total) by mouth 3 (three) times a day 90 tablet 1 08/25/2022 10/24/2022 ARIPiprazole (ABILIFY) 20 mg tablet TK 1 T PO HS 10/22/2019 03/15/[address] (CYMBALTA) 30 mg capsule 07/04/2022 11/04/2022 gabapentin (NEURONTIN) 300 mg capsuleIndication s:Neuropathic Pain Take 1 capsule (300 mg total) by mouth 3 (three) times a day 90 capsule 1 08/25/2022 01/12/2023 haloperidoL (HALDOL) 5 mg tablet 07/26/2022 03/15/2023 metoprolol XL (TOPROL-XL) 25 mg extended release tablet 2 tablets (50 mg total) daily 08/22/2022 11/08/2023 documented as of this encounter Ordered Prescriptions Prescription Sig Dispense Quantity Refills Last Filled Start Date End Date methocarbamoL (ROBAXIN) 500 mg tabletIndications: Muscle Spasm Take 1 tablet (500 mg total) by mouth 3 (three) times a day 90 tablet 1 08/25/2022 3 gabapentin (NEURONTIN) 300 mg capsuleIndications :Neuropathic Pain Take 1 capsule (300 mg total) by mouth 3 (three) times a day 90 capsule 1 08/25/2022 3 documented in this encounter Discharge Disposition Disposition Code Departure Means Destination Discharge to home or self care documented in this encounter Progress Notes * Ander Jules NP - 08/25/2022 1:00 PM CDT Patient Name: Alona Kemp : 1970 Today's Date: 08/25/2022 PCP: Daja Kern MD Referring: Daja Kern MD No chief complaint on file. HPI Alona Kemp is a 51 y.o. year old female referred by Daja Kern MD for consultation regarding evaluation and treatment recommendation for management of Her back pain. Patient was initially seen at the [facility] on 08/25/2022. Patient's Mitten Sewer, David from [facility] attended today's visit. She presents [...] interventional injections with Dr. Marty Holcomb with [facility] 1-2 years ago Imagin09/10/2019 [...] mg tablet TK ONE T PO TID DULoxetine DR (CYMBALTA) 30 mg capsule haloperidoL (HALDOL) 5 mg tablet traZODone (DESYREL) 100 mg tablet TK 1 T PO HS She has history of following psychiatric disorder: anxiety and depression She is receiving disability compensation now: No. She is involved in a law suit because of pain or injury: No. She is in contact with a first aid director because of pain or injury: No. Results [...] 2x/month Sexual activity: Defer Alcohol Use: Not on file Family History Problem Relation Age of Onset Hypertension Mother Anxiety disorder Mother Diabetes Mother Arthritis Mother HOME MEDICATIONS : albuterol HFA (PROVENTIL HFA,VENTOLIN HFA,PROAIR HFA) 90 mcg/actuation inhaler ARIPiprazole (ABILIFY) 20 mg tablet baclofen (LIORESAL) 20 mg tablet benztropine (COGENTIN) 0.[address] (CYMBALTA) 30 mg capsule haloperidoL (HALDOL) 5 mg tablet irbesartan (AVAPRO) 150 mg tablet levothyroxine (SYNTHROID) 50 mcg tablet lidocaine (LIDODERM) 5 % metoprolol XL (TOPROL-XL) 25 mg extended release tablet omeprazole (PriLOSEC) 40 mg capsule simvastatin (ZOCOR) 10 mg tablet traZODone (DESYREL) 100 mg tablet buPROPion XL (WELLBUTRIN XL) 300 mg 24 hr tablet gabapentin (NEURONTIN) 300 mg capsule HYDROcodone-acetaminophen (NORCO) 5-325 mg per tablet naproxen (NAPROSYN) 375 mg tablet sertraline (ZOLOFT) 100 mg tablet sertraline (ZOLOFT) 50 mg tablet tiZANidine (ZANAFLEX) 2 mg tablet triamterene-hydroCHLOROthiazide 37.5-25 mg per tablet Review of Systems Review of Systems Constitutional: Weight gain HENT: Positive for rhinorrhea and tinnitus. Nose pain Nose congestion Eyes: Positive for photophobia. Respiratory: Positive for shortness of breath. Asthma Cardiovascular: High blood pressure Gastrointestinal: Heartburn Endocrine: Thyroid disease Musculoskeletal: Positive for arthralgias, joint swelling and myalgias. Psychiatric/Behavioral: Irritability Depression Anxiety All other systems reviewed and are negative. Physical Exam Vitals: 08/25/22 1312 BP: (!) 160/118 Pulse: 114 Resp: 20 Temp: 98.6 ??F (37 ??C) SpO2: 93% Weight: 120.6 kg (265 lb 12.8 oz) Height: 157.5 cm (5' 2 ) Body mass index is 48.62 kg/m??. Physical Exam GENERAL: In no acute distress. [...] +2 bilateral Assessment Encounter Diagnosis Name Primary? Radiculopathy, lumbar region The above note documents my personal evaluation of this patient. In addition, I have reviewed and confirmed with the patient and nurse the supportive information documented in today's scanned PatientHealth Questionnaire and Office Note. Plan 1. Intervention: none at this time. Requested previous interventional pain records. 2. Medications: Medications reviewed. Gabapentin 300mg TID w/ weekly titration. Discontinue baclofen (patient reports not taking for > than 2 weeks). Methocarbamol 500mg TID with weekly titration,wait to start medication after 2 weeks of Gabapentin . 3. Imaging: Due to the patient's symptoms, we will obtain imaging of lumbar spine MRI at [facility] 4. Referral: Will refer to physical therapy once pain is better controlled., Encourage HEP, Encourage weight loss, and We will refer the patient to NSGY specialty clinic for surgical consultation. 5. Follow-up: In 4-6 weeks for re-evaluation of the above regimen. Assessment and plan of care shared with Dr. Chung Jules AGNP-C Cosigned by Katrina Wilkes MD at 08/26/2022 1:00 PM CDT documented in this encounter Plan of Treatment Scheduled Referrals Name Type Priority Associated Diagnoses Orde r Schedule Ambulatory referral to Pain Management Outpatient Referral Routine Lumbar radiculopathy Once for 1 Occurrences starting 08/25/2022 until 08/25/2022 documented as of this encounter Goals Goal [...] Discontinue Reason Start Date End Da te naproxen (NAPROSYN) 375 mg tablet Take 1 tablet (375 mg total) by mouth 2 (two) times a day with meals P.r.n. pain. Collaborating physician Jadiel Gan MD 02/22/2020 08/25/2022 buPROPion XL (WELLBUTRIN XL) 300 mg 24 hr tablet 11/11/2019 08/25/2022 gabapentin (NEURONTIN) 300 mg capsule TK ONE C PO BID 08/14/2019 08/25/2022 HYDROcodone-acetamino phen (NORCO) 5-325 mg per tabletIndications:Jason n Take 1 tablet by mouth every 4 (four) hours as needed for pain 06/30/2020 08/25/2022 sertraline (ZOLOFT) 100 mg tablet TK 1 T PO QD 09/24/2019 08/25/2022 sertraline (ZOLOFT) 50 mg tablet TK 1 T PO QD 09/24/2019 08/25/2022 tiZANidine (ZANAFLEX) 2 mg tablet Take 1 tablet (2 mg total) by mouth every 8 (eight) hours as needed for muscle spasms Collaborating physician Jadiel Gan MD 02/22/2020 08/25/2022 triamterene-hydroCHLO ROthiazide 37.5-25 mg per tablet 11/12/2019 08/25/2022 baclofen (LIORESAL) 20 mg tablet TK ONE T PO TID Alternate therapy 10/22/2019 08/25/2022 documented as of this encounter Historical Medications * This list may reflect changes made after this encounter. lidocaine (LIDODERM) 5 % 07/26/2022 benztropine (COGENTIN) 0.5 mg tablet 08/22/2022 albuterol HFA (PROVENTIL HFA,VENTOLIN HFA,PROAIR HFA) 90 mcg/actuation inhaler Inhale 2 puffs every 6 (six) hours as needed 02/10/2022 metoprolol XL (TOPROL-XL) 25 mg extended release tablet 2 tablets (50 mg total) daily 08/22/2022 11/08/2023 haloperidoL (HALDOL) 5 mg tablet 07/26/2022 03/15/[address] (CYMBALTA) 30 mg capsule 07/04/2022 11/04/2022 added in this encounter Care Teams Production Drilling Machine Operator Relationship Specialty Start Date End Date Daja Kern MD [address] [place] [id number] PCP - General 09/10/19 documented as of this encounter
--- OUTSIDE RECORDS SUMMARY | 2024-03-03 19:39 | XMS_ITS | Encounter Summary ---
Author Organization [facility] Healthcare Address [address] [place] [address] Care Team Providers Care It Systems Analyst Consultant Name Role Phone Daja Kern MD Primary Care Provider [phone] Encounter Details Date Type Department Care Team (Late st Contact Info) Description 05/30/2011 3:55 PM CDT - 05/30/2011 6:47 PM CDT Hospital Encounter [facility] Jadiel Gan MD [address] [facility] [address] [place] [address] Other extrapyramidal disease and abnormal movement disorders; Antidepressants causing adverse effect in therapeutic use Social History Tobacco Use Types Packs/Day Years Used Date Smoking Tobacco: Never Assessed Comments Unknown Sex and Gender Information Value Date Recorded Sex Assigned at Not on file 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
--- OUTSIDE RECORDS SUMMARY | 2024-03-03 19:39 | XMS_ITS | Encounter Summary ---
Author Organization [facility] Address [address] [place] [address] Phone Care Team Providers Care Practice Management Consultant Name Role Phone Daja Kern MD Primary Care Provider [phone] Encounter Details Date Type Department Care Team (Late st Contact Info) Description 11/28/2019 Telephone [facility] [address] [place] [address] Medical Office Building [address] [place] [address] Liz Martinez BS Social History Tobacco Use Types Packs/Day Years Used Date Smoking Tobacco: Never Smokeless Tobacco: Never Alcohol Use Standard Drinks/Week Comments No 0 (1 standard drink = 0.6 oz pur e alcohol) Comments Unknown Sex and Gender Information Value Date Recorded Sex Assigned at Not on file Legal Sex Female 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 Patient stated that she did not have a ride. I explained that I could schedule the patient via Zoom. Patient stated that she would passon making an appointment. documented in this encounter Plan of Treatment Not on file documented as of this encounter Visit Diagnoses Not on filedocumented in this encounter Care Teams Practice Management Consultant Relationship Specialty Start Date End Date Daja Kern MD [address] [place] [address] PCP - General 09/10/19 documented as of this encounter
--- OUTSIDE RECORDS SUMMARY | 2024-03-03 19:39 | XMS_ITS | Encounter Summary ---
Author Organization [facility] Healthcare Address [address] [place] [address] Care Team Providers Care Cable Engineer Outside Plant Name Role Phone Daja Kern MD Primary Care Provider [phone] Encounter Details Date Type Department Care Team (Latest Contact Info) Description 02/20/2021 1:55 PM BUILDING INSULATION SUPERVISOR - 02/20/2021 11:59 PM BUILDING INSULATION SUPERVISOR Hospital Encounter [facility] Discharge Disposition: [...] on file Legal Sex Female 6:59 AM BUILDING INSULATION SUPERVISOR Gender Identity Not on file Sexual [...] on filedocumented in this encounter Care Teams Cable Engineer Outside Plant Relationship Specialty Start Date End Date Daja Kern MD [address] [place] [address] PCP - General 09/10/19 documented as of this encounter
--- OUTSIDE RECORDS SUMMARY | 2024-03-03 19:39 | XMS_ITS | Encounter Summary ---
Author Organization [facility] Healthcare Address [address] [place] [address] Care Team Providers Care Rf Test Engineer Name Role Phone Daja Kern MD Primary Care Provider [phone] Encounter Details Date Type Department Care Team (Latest Contact Info) Description 09/28/2011 8:18 AM CDT - 09/28/2011 11:59 PM CDT Hospital Encounter [facility] Talia Flores Other specified disorders of liver; Other chronic nonalcoholic liver disease Social History Tobacco Use Types Packs/Day Years Used Date Smoking Tobacco: Never Assessed Comments Unknown Sex and Gender Information Value Date Recorded Sex Assigned at Not on file 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
--- OUTSIDE RECORDS SUMMARY | 2024-03-03 19:39 | XMS_ITS | Encounter Summary ---
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
--- OUTSIDE RECORDS SUMMARY | 2024-03-03 19:39 | XMS_ITS | Encounter Summary ---
Author Organization [facility] Healthcare Address [address] [place] [address] Care Team Providers Care Set Key Driver Name Role Phone Daja Kern MD Primary Care Provider [phone] Encounter Details Date Type Department Care Team (Late st Contact Info) Description 10/14/2012 7:42 PM CDT - 10/14/2012 9:15 PM CDT Hospital Encounter [facility] Wendy Moore MD [address] [place] [address] [place] [address] Acute pharyngitis; Viral infection in conditions classified elsewhere and of unspecified site; Acute upper respiratory infection Social History Tobacco Use Types Packs/Day Years Used Date Smoking Tobacco: Never Assessed Alcohol Use Standard Drinks/Week Comments No 0 (1 standard drink = 0.6 oz pur e alcohol) Comments Unknown Sex and Gender Information Value Date Recorded Sex Assigned at Not on file 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 Gender Identity Not on file Sexual Orientation Not on file documented as of this encounter Plan of Treatment Not on file documented as of this encounter Procedures Procedure Name Priority Date/Time Associated Diagnosis Comments DISCHARGE CUMULATIVE SUMMARY ADDENDUM Routine 10/17/2012 12:26 AM CDT THROAT SWAB STREPTOCOCCUS RAPID ANTIGEN GROUP A Routine 10/14/2012 9:00 PM CDT MICROBIOLOGY SUMMARY Routine 10/14/2012 12:00 AM CDT DISCHARGE LABORATORY CUMULATIVE REPORT Routine 10/14/2012 12:00 AM CDT documented in this encounter Results * Discharge Cumulative Summary Addendum (10/17/2012 12:26 AM CDT) 10/17/2012 12:2 6 AM CDT Narrative HISTORICAL RESULTS - 10/17/2012 12:26 AM CDT Patient No: [id number] ? [facility] Patient Name: ALONA KEMP ? [facility] Age: 41 YRS ?: 1970 ?Sex:F ?[address] )[id number] ?? Adm Dt: 10/14/2012 ?[place], [place] ??[address] Created: 10/17/2012 ??0026 ?? Pt. Type: E ? Discharge Dt: 10/14/2012 ? Pathologists: Radha Choe MD Admit Attend Dr: WENDY JOHNSON MD ?MICRO - RESPIRATORY THROAT BETA ONLY ?Collected: 10/14/12 2100 ? Received: 10/14/122117 Source: THROAT ?Started: 10/14/122117 ? PRELIMINARY REPORT ?10/15/12838 ? NEGATIVE NO BETA-HEMOLYTIC STREPTOCOCCI CULTURED ? FINAL REPORT ?10/16/12626 ? NEGATIVE NO BETA-HEMOLYTIC STREPTOCOCCI CULTURED ?? END OF CHART ? Page: ?? 1 us Historical Provider MD LAB MICROBIOLOGY - GENERA L ORDERABLES Final Result Performing Organization Address [facility] Co de Phone Number HISTORICAL RESULTS * Throat swab Streptococcus Rapid Antigen Group A (10/14/2012 9:00 PM CDT) Strep A ag oropharyngeal Negative NEGATIVE HISTORICAL RESULTS Throat 10/14/2012 9:00 PM CDT Angela Mark PA LAB BLOOD ORDERABLES Final Result Performing Organization Address [facility] Co de Phone Number HISTORICAL RESULTS * Discharge Laboratory Cumulative Report (10/14/2012 12:00 AM CDT) 10/14/2012 Narrative HISTORICAL RESULTS - 10/15/2012 12:24 AM CDT Patient No: [id number] ? [facility] Patient Name: ALONA KEMP ? [facility] Age: 41 YRS ?: 1970 ?Sex:F ?[address] )[id number] ?? Adm Dt: 10/14/2012 ?[place], [place] ??[address] Created: 10/15/2012 ??0024 ?? Pt. Type: E ? Discharge Dt: 10/14/2012 ? Pathologists: Radha Choe MD Admit DrKyung Attend Dr: WENDY JOHNSON MD ? SEROLOGY ?Collection Date: ?10/14/12 ?Collection Time: ?2100 ? Ref Range: ?? Units: [PRESENT] ?CONTROL LINE ? PRESENT [NEGATIVE] ?GRP A BETA STR ?NEGATIVE ?? END OF CHART ? Page: ?? 1 us Historical Provider MD LAB BLOOD ORDERABLES Radha l Result HISTORICAL RESULTS * Microbiology Summary (10/14/2012 12:00 AM CDT) 10/14/2012 Narrative HISTORICAL RESULTS - 10/17/2012 12:29 AM CDT ? [facility] ?CLINICAL LABORATORIES ? MICROBIOLOGY REPORT PATIENT NAME: ??ALONA KEMP ? MED RECORD#: ??[id number] BIRTHDATE: ??1970 ?? AGE: ??41 YRS SEX: F ?PATIENT#: ? [id number] ADMITTING DR: ??WENDY JOHNSON MD ? ATTENDING DR: ??WENDY JOHNSON MD ?ACCESSION#: ?? [id number] CREATED: ??10/17/12 ?? 0025 ? ADMIT DATE: ?? 10/14/12 ?MICRO - RESPIRATORY THROAT BETA ONLY ?Collected: 10/14/12 2100 ? Received: 10/14/122117 Source: THROAT ?Started: 10/14/122117 ?10/15/12 0839 ? NEGATIVE NO BETA-HEMOLYTIC STREPTOCOCCI CULTURED ?10/16/12 06 ? NEGATIVE NO BETA-HEMOLYTIC STREPTOCOCCI CULTURED ?? END OF CHART us Historical Provider LAB MICROBIOLOGY - GENERA L ORDERABLES Final Result HISTORICAL RESULTS documented in this encounter Visit Diagnoses Diagnosis Acute pharyngitis Viral infection in conditions classified elsewhere and of unspecified site Acute upper respiratory infection Acute upper respiratory infections of unspecified site documented in this encounter Care Teams Set Key Driver Relationship Specialty Start Date End Date Daja Kern MD [address] [place] [address] PCP - General 03/29/12 08/22/17 documented as of this encounter
--- OUTSIDE RECORDS SUMMARY | 2024-03-03 19:39 | XMS_ITS | Encounter Summary ---
Author Organization [facility] Healthcare Address [address] [place] [address] Care Team Providers Care Handkerchief Folder Name Role Phone Daja Kern MD Primary Care Provider [phone] Encounter Details Date Type Department Care Team (Latest Contact Info) Description 01/14/2020 11:39 AM A/C TECHNICIAN - 01/14/2020 11:59 PM A/C TECHNICIAN Hospital Encounter [facility] Discharge Disposition: [...] on file Legal Sex Female 6:59 AM A/C TECHNICIAN Gender Identity Not on file Sexual [...] TK 1 T PO HS 10/22/2019 03/15/2023 baclofen (LIORESAL) 20 mg tablet TK ONE T PO TID 10/22/2019 08/25/2022 buPROPion XL (WELLBUTRIN XL) 300 mg 24 hr tablet 11/11/2019 08/25/2022 gabapentin (NEURONTIN) 300 mg capsule TK ONE C PO BID 08/14/2019 08/25/2022 naproxen (NAPROSYN) 500 mg tablet Take 500 mg by mouth 2 (two) times a day as needed 02/22/2020 sertraline (ZOLOFT) 100 mg tablet TK 1 T PO QD 09/24/2019 08/25/2022 sertraline (ZOLOFT) 50 mg tablet TK 1 T PO QD 09/24/2019 08/25/2022 triamterene-hydro CHLOROthiazide 37.5-25 mg per tablet 11/12/2019 08/25/2022 documented as of this encounter Discharge Disposition Disposition Code Departure Means Destination Discharge to home or self care documented in this encounter Plan of Treatment Not on file documented as of this encounter Visit Diagnoses Not on filedocumented in this encounter Care Teams Handkerchief Folder Relationship Specialty Start Date End Date Daja Kern MD [address] [place] [address] PCP - General 09/10/19 documented as of this encounter
--- OUTSIDE RECORDS SUMMARY | 2024-03-03 19:39 | XMS_ITS | Encounter Summary ---
Author Organization [facility] Address [address] [place] [address] Care Team Providers Care Cleaner Wall Name Role Phone Bev Carballo MD Primary Care Provider [phone] Reason for Referral * Diagnostic Imaging (Routine) - Closed Specialty Diagnoses / Procedures Referred By Contac t Referred To Contact Radiology Diagnoses Radiculopathy, site unspecified Procedures MRI Lumbar Spine WO Contrast Bev Carballo MD [address] [place] [address] Phone: tel: fax: [address] [phone] Referral ID Status Reason Start Date Expiration Date Visits Re quested Visits Authorized [id number] Closed 08/27/2019 03/07/2021 1 1 Reason for Visit * Diagnostic Imaging (Routine) - Closed Specialty Diagnoses / Procedures Referred By Contac t Referred To Contact Radiology Diagnoses Radiculopathy, site unspecified Procedures MRI Lumbar Spine WO Contrast Bev Carballo MD [address] [place] [address] Phone: tel: fax: [address] [phone] Referral ID Status Reason Start Date Expiration Date Visits Re quested Visits Authorized [id number] Closed 08/27/2019 03/07/2021 1 1 Encounter Details Date Type Department Care Team (Latest Contact Info) Description 09/10/2019 12:04 PM CDT - 09/10/2019 11:59 PM CDT Hospital Encounter [facility] [address] [place] [address] Bev Carballo MD [address] [place] [address] Radiculopathy, site unspecified Discharge Disposition: Discharge to home or self care Social History Tobacco Use Types Packs/Day Years Used Date Smoking Tobacco: Never Alcohol Use Standard Drinks/Week Comments No 0 (1 standard drink = 0.6 oz pur e alcohol) Comments Unknown Sex and Gender Information Value Date Recorded Sex Assigned at Not on file 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 Gender Identity Not on file Sexual Orientation Not on file documented as of this encounter Medications at Time of Discharge omeprazole (PriLOSEC) 40 mg capsule Take 1 capsule (40 mg total) by mouth daily 02/06/2019 gabapentin (NEURONTIN) 300 mg capsule TK ONE C PO BID 08/14/2019 08/25/2022 documented as of this encounter Discharge Disposition Disposition Code Departure Means Destination Discharge to home or self care documented in this encounter Plan of Treatment Not on file documented as of this encounter Procedures Procedure Name Priority Date/Time Associated Diagnosis Comments MRI LUMBAR SPINE WO CONTRAST Schedule Routine, Read Routine (OP Routine) 09/10/2019 12:46 PM CDT Radiculopathy, site unspecified documented in this encounter Results * MRI Lumbar Spine WO Contrast (09/10/2019 12:46 PM CDT) Anatomical Region Laterality Modality Spine N/A Magnetic Resonan ce 09/10/2019 11:4 1 AM CDT Impressions 09/10/2019 4:56 PM CDT 1. 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 ??Progressive and now severe disc degeneration resulting in severe bilateral foraminal stenosis and compression of the L5 nerve roots. 2. ??No spinal canal stenosis. 3. ??There is suspected cord signal abnormality at T10-11. ??Dedicated thoracic MRI is recommended. THIS IS AN ELECTRONICALLY VERIFIED FINAL REPORT 09/10/2019 4:53 PM - Electronically signed by Lisandro Werner D.O. : D: ??09/10/2019 4:53 PM T: ??09/10/2019 4:53 PM Report ID: [id number] Reading Location: ??[id number] Narrative 09/10/2019 4:56 PM CDT [facility] ?Imaging Result Name: ALONA KEMP ? Ordering Phys: BEV CARBALLO Age: 48 ?Date of : 1970 ? Accession Number: [id number] Date of Service: 09/10/2019 ??Gender: F EXAM DESCRIPTION: ?? MRI LUMBAR SPINE WO CONTRAST REASON FOR STUDY: ?? Radiculopathy, site unspecifiedDx: Radiculopathy, site unspecifiedlow back and Left leg painDuration: 15 years TECHNIQUE: ?? Sagittal and Axial imaging includes T1, T2, STIR sequences. COMPARISON: ?? Lumbar MRI 05/31/2010. ??SEGMENTATION: ??No transitional anatomy. The lowest well-developed disc space is labeled L5-S1. 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 VERTEBRAE: ??There is no compression fracture. ??No abnormal marrow replacement. DISC HEIGHT: ??Progressive and now severe disc degeneration at L5-S1 with accompanying type 1 Modic discogenic endplate signal changes. HARDWARE: ??None in the spine. CORD/CAUDA: ??Terminates at L1 and is unremarkable. ??No cord tethering lesion is identified. LOWER THORACIC: ??There is signal abnormality noted within the dorsal aspect of the spinal canal at T10-11 with suspected intramedullary T2 signal hyperintensity of the adjacent spinal cord. ??This is only observed on the sagittal sequence as axial images were not acquired through this level. Dedicated thoracic MRI is recommended (preferably with and without contrast). INDIVIDUAL DISC LEVELS: L1-2: ??Unremarkable. L2-3: ??Unremarkable. L3-4: ??Unremarkable. L4-5: ??Unremarkable. L5-S1: ??Unroofed disc material and facet arthropathy without spinal canal stenosis. ??Severe foraminal narrowing with compression of the L5 nerve roots bilaterally. SACRUM: ??Visualized upper sacrum intact. VISUALIZED UPPER ABDOMEN: ??No significant abnormality. OTHER: ??No other significant findings. Procedure Note Lisandro Werner DO - 09/10/2019 [facility] Imaging Result Name: PAINTER ALONA Eulalio Ordering Phys: BEV CARBALLO Age: 48 Date of : 1970 Accession Number: [id number] Date of Service: 09/10/2019 Gender: F EXAM DESCRIPTION: MRI LUMBAR SPINE WO CONTRAST REASON FOR STUDY: Radiculopathy, site unspecifiedDx: Radiculopathy,site unspecifiedlow back and Left leg painDuration: 15 years TECHNIQUE: Sagittal and Axial imaging includes T1, T2, STIR sequences. COMPARISON: Lumbar MRI 05/31/2010. SEGMENTATION: No transitional anatomy. The lowest well-developed disc space is labeled L5-S1. ALIGNMENT: L5 spondylolysis with grade 1 L5-S1 spondylolisthesismeasuring 6 mm. VERTEBRAE: There is no compression fracture. No abnormal marrowreplacement. DISC HEIGHT: Progressive and now severe disc degeneration at L5-S1 with accompanying type 1 Modic discogenic endplate signal changes. HARDWARE: None in the spine. CORD/CAUDA: Terminates at L1 and is unremarkable. No cord tetheringlesion is identified. LOWER THORACIC: There is signal abnormality noted within the dorsalaspect of the spinal canal at T10-11 with suspected intramedullary T2 signal hyperintensity of the adjacent spinal cord. This is only observed onthe sagittal sequence as axial images were not acquired through this level. Dedicated thoracic MRI is recommended (preferably with and withoutcontrast). INDIVIDUAL DISC LEVELS: L1-2: Unremarkable. L2-3: Unremarkable. L3-4: Unremarkable. L4-5: Unremarkable. L5-S1: Unroofed disc material and facet arthropathy without spinalcanal stenosis. Severe foraminal narrowing with compression of the L5 nerveroots bilaterally. SACRUM: Visualized upper sacrum intact. VISUALIZED UPPER ABDOMEN: No significant abnormality. OTHER: No other significant findings. IMPRESSION: 1. 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 Progressiveand now severe disc degeneration resulting in severe bilateral foraminalstenosis and compression of the L5 nerve roots. 2. No spinal canal stenosis. 3. There is suspected cord signal abnormality at T10-11. Dedicatedthoracic MRI is recommended. THIS IS AN ELECTRONICALLY VERIFIED FINAL REPORT 09/10/2019 4:53 PM - Electronically signed by Lisandro Werner D.O. : Report ID: [id number] Reading Location: [place] [address] Bev Carballo MD IMG MRI PROCEDURES Final Resu lt documented in this encounter Visit Diagnoses Diagnosis Radiculopathy, site unspecified documented in this encounter Care Teams Cleaner Wall Relationship Specialty Start Date End Date Bev Carballo MD [address] [place] [address] PCP - General 09/10/19 documented as of this encounter
--- OUTSIDE RECORDS SUMMARY | 2024-03-03 19:39 | XMS_ITS | Encounter Summary ---
Author Organization [facility] Address [address] [place] [address] Phone Care Team Providers Care Trolley Operator Name Role Phone Daja Kern MD Primary Care Provider [phone] Encounter Details Date Type Department Care Team (Late st Contact Info) Description 09/12/2019 Telephone [facility] Neurosurgery [address] [facility] Advanced Medicine 6th [place] [address] [place] [address] Elana Bell BS Social History Tobacco Use Types Packs/Day Years Used Date Smoking Tobacco: Never Alcohol Use Standard Drinks/Week Comments No 0 (1 standard drink = 0.6 oz pur e alcohol) Comments Unknown Sex and Gender Information Value Date Recorded Sex Assigned at Not on file 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 Can you please call her back and document and name/number of where you're transferring her in these notes in case she calls back. #[phone]. * Telephone Encounter - Niru Packer CNA - 10/01/2019 4:07 PM CDT Spoke to pt she stated I remember you transferred me but nothing happened, they haven't called meback . Made her aware to leave a and someone from that office will you call regarding your referral Just an FYI * Telephone Encounter - Mindi Lee - 10/01/2019 3:40 PM CDT Patient called and LMOM about her referral. I called her back and told her she talked to you last week and you transferred her to [facility]. She doesn't recall that or who she talked to nothing happened when she transferred me . Can you call her back and provide the name/# of who should she talk to and document in chart in case she calls again? Thanks, DMG * Telephone Encounter - Niru Packer CNA - 09/25/2019 2:40 PM CDT Faxed records to [facility] and transferred pt * Telephone Encounter - Tonya Arteaga RMA - 09/24/2019 7:11 PM CDT Patient called the office and LM regarding her referral to * Telephone Encounter - Elana Bell BS - 09/12/2019 1:25 PM CDT New patient records and referral received. THO. documented in this encounter Plan of Treatment Not on file documented as of this encounter Visit Diagnoses Not on filedocumented in this encounter Care Teams Trolley Operator Relationship Specialty Start Date End Date Daja Kern MD [address] [place] [address] PCP - General 09/10/19 documented as of this encounter
--- OUTSIDE RECORDS SUMMARY | 2024-03-03 19:39 | XMS_ITS | Encounter Summary ---
Author Organization [facility] Address [address] [place] [address] Care Team Providers Care Validation Consultant Name Role Phone Daja Kern MD Primary Care Provider [phone] Reason for Referral * Diagnostic Imaging (Routine) - Closed Specialty Diagnoses / Procedures Referred By Contac t Referred To Contact Radiology Diagnoses Thoracic spine pain Procedures MRI Thoracic Spine WO Contrast Adelso Higuera MD [address] [place] [address] [address] [place] [address] Phone: tel: fax: [address] [address] Referral ID Status Reason Start Date Expiration Date Visits Re quested Visits Authorized [id number] Closed 10/22/2019 11/20/2020 1 1 Encounter Details Date Type Department Care Team (Late st Contact Info) Description 10/22/2019 Orders Only [facility] Orthopedics and Sports Medicine [address] [place] [id number] Adelso Higuera MD [address] [place] [address] [address] [place] [address] Thoracic spine pain (Primary Dx) Social History Tobacco Use Types Packs/Day Years Used Date Smoking Tobacco: Never Alcohol Use Standard Drinks/Week Comments No 0 (1 standard drink = 0.6 oz pur e alcohol) Comments Unknown Sex and Gender Information Value Date Recorded Sex Assigned at Not on file 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 ??Compromised evaluation, specifically sagittal STIR and axial T2 sequences with these sequences nondiagnostic for evaluation of the spinal cord. 2. ??Spinal cord normal in size and grossly normal in signal intensity without overt evidence of T2 signal abnormality on sagittal sequence, to include at the level of T10-11. 3. ??If clinically warranted, MRI of the thoracic spine without and with contrast can be performed on a closed bore magnet for evaluation of previously questioned lower thoracic cord signal abnormality. 4. ??Otherwise, mild spondylosis of the thoracic spine without spinal canal stenosis or neural foraminal stenosis. THIS IS AN ELECTRONICALLY VERIFIED FINAL REPORT 11/07/2019 12:56 PM - Electronically signed by Sawyer Ramirez M.D. TING: TING D: ??11/07/2019 12:56 PM T: ??11/07/2019 12:56 PM Report ID: [id number] Reading Location: ??[id number] Narrative 11/07/2019 1:00 PM CDT [facility] ?Imaging Result Name: ALONA KEMP ? Ordering Phys: ADELSO HIGUERA Age: 48 ?Date of : 1970 ? Accession Number: [id number] Date of Service: 11/07/2019 ??Gender: F EXAM DESCRIPTION: ?? MRI THORACIC SPINE WO CONTRAST REASON FOR STUDY: ?? Chronic back pain times 10 years. ??Question of cord signal abnormality at T10-11 on August 2019 MRI lumbar spine. TECHNIQUE: ??Sagittal and axial imaging of the thoracic spine includes T1, T2, STIR and gradient echo sequences. ??Compromised evaluation, specifically sagittal STIR and axial T2 sequences with these sequences nondiagnostic for evaluation of the spinal cord. COMPARISON: ?? Relevant portions of MRI lumbar spine without contrast 09/10/2019 and 05/31/2010 ??ALIGNMENT: ??Normal. VERTEBRAE: ??No MR evidence of acute-subacute fracture. ??Vertebral body heights maintained. ??Mild spondylosis. ??Marrow signal grossly within normal limits. HARDWARE: ??None in the thoracic spine. CORD: ??Normal in size and grossly normal in signal intensity without overt evidence of T2 signal abnormality on sagittal sequence, to include at the level of T10-11 THORACIC DISCS T1-T12: ??No diffuse disc bulge or focal herniation. ??No spinal canal stenosis. ??No neural foraminal stenosis. SOFT TISSUES: ??No gross evidence of acute abnormality. LOWER CERVICAL: ??Incompletely imaged. No significant spinal stenosis or neuroforaminal stenosis. UPPER LUMBAR: ??Please reference August 2019 MRI lumbar spine for evaluation. OTHER: ??No other significant abnormality. Procedure Note Sawyer Ramirez MD - 11/07/2019 [facility] Imaging Result Name: ALONA KEMP Ordering Phys: ADELSO HIGUERA Age: 48 Date of : 1970 Accession Number: [id number] Date of Service: 11/07/2019 Gender: F EXAM DESCRIPTION: MRI THORACIC SPINE WO CONTRAST REASON FOR STUDY: Chronic back pain times 10 years. Question of cordsignal abnormality at T10-11 on August 2019 MRI lumbar spine. TECHNIQUE: Sagittal and axial imaging of the thoracic spine includes T1,T2, STIR and gradient echo sequences. Compromised evaluation, specifically sagittal STIR and axial T2 sequences with these sequences nondiagnosticfor evaluation of the spinal cord. COMPARISON: Relevant portions of MRI lumbar spine without contrast 09/10/2019 and 05/31/2010 ALIGNMENT: Normal. VERTEBRAE: No MR evidence of acute-subacute fracture. Vertebral bodyheights maintained. Mild spondylosis. Marrow signal grossly within normallimits. HARDWARE: None in the thoracic spine. CORD: Normal in size and grossly normal in signal intensity withoutovert evidence of T2 signal abnormality on sagittal sequence, to include atthe level of T10-11 THORACIC DISCS T1-T12: No diffuse disc bulge or focal herniation. Nospinal canal stenosis. No neural foraminal stenosis. SOFT TISSUES: No gross evidence of acute abnormality. LOWER CERVICAL: Incompletely imaged. No significant spinal stenosis or neuroforaminal stenosis. UPPER LUMBAR: Please reference August 2019 MRI lumbar spine forevaluation. OTHER: No other significant abnormality. IMPRESSION: 1. Compromised evaluation, specifically sagittal STIR and axial [id number] with these sequences nondiagnostic for evaluation of the spinal cord. 2. Spinal cord normal in size and grossly normal in signal intensitywithout overt evidence of T2 signal abnormality on sagittal sequence, to includeat the level of T10-11. 3. If clinically warranted, MRI of the thoracic spine without and with contrast can be performed on a closed bore magnet for evaluation ofpreviously questioned lower thoracic cord signal abnormality. 4. Otherwise, mild spondylosis of the thoracic spine without spinalcanal stenosis or neural foraminal stenosis. THIS IS AN ELECTRONICALLY VERIFIED FINAL REPORT 11/07/2019 12:56 PM - Electronically signed by Sawyer Ramirez M.D. TING: TING Report ID: [id number] Reading Location: [place] [address] Adelso Higuera MD IMG MRI PROCEDURES Final Result documented in this encounter Visit Diagnoses Diagnosis Thoracic spine pain- Primary Pain in thoracic spine Thoracic spine pain Pain in thoracic spine documented in this encounter Care Teams Validation Consultant Relationship Specialty Start Date End Date Daja Kern MD [address] [place] [address] PCP - General 09/10/19 documented as of this encounter
--- OUTSIDE RECORDS SUMMARY | 2024-03-03 19:39 | XMS_ITS | Encounter Summary ---
Author Organization 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 - 03/01/2011 11:59 PM SENIOR TELECOMMUNICATIONS ENGINEER Hospital Encounter [facility] [place], [place] Lump or mass in breast Social History Tobacco Use Types Packs/Day Years Used Date Smoking Tobacco: Never Assessed Comments Unknown Sex and Gender Information Value Date Recorded Sex Assigned at Not on file 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
--- OUTSIDE RECORDS SUMMARY | 2024-03-03 19:39 | XMS_ITS | Encounter Summary ---
Author Organization [facility] Healthcare Address [address] [place] [address] Care Team Providers Care District Manager Primary Care Sales Name Role Phone Daja Kern MD Primary Care Provider [phone] Encounter Details Date Type Department Care Team (Late st Contact Info) Description 05/30/2011 3:27 PM CDT - 05/30/2011 11:59 PM CDT Hospital Encounter [facility] Other malaise and fatigue; Anxiety state Social History Tobacco Use Types Packs/Day Years Used Date Smoking Tobacco: Never Assessed Comments Unknown Sex and Gender Information Value Date Recorded Sex Assigned at Not on file 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
--- OUTSIDE RECORDS SUMMARY | 2024-03-03 19:39 | XMS_ITS | Encounter Summary ---
Author Organization [facility] Healthcare Address [address] [place] [address] Care Team Providers Care Soda Fountain Operator Name Role Phone Daja Kern MD Primary Care Provider [phone] Encounter Details Date Type Department Care Team (Late st Contact Info) Description 10/23/2011 2:25 PM CDT - 10/23/2011 8:40 PM CDT Hospital Encounter [facility] Kalen Jennings MD [address] [place], [place] [id number] Suicidal ideation; Bipolar I disorder, most recent episode depressed (CMS/HCC) (HCC); Abrasion or friction burn of lower arm; Suicide and self-inflicted injury by cutting and piercing instrument (HCC); Unspecified place of occurrence; Hypothyroidism; Essential hypertension; Pure hypercholesterolemia; Tobacco use disorder Social History Tobacco Use Types Packs/Day Years Used Date Smoking Tobacco: Never Assessed Comments Unknown Sex and Gender Information Value Date Recorded Sex Assigned at Not on file 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 Gender Identity Not on file Sexual Orientation Not on file documented as of this encounter Plan of Treatment Not on file documented as of this encounter Visit Diagnoses Diagnosis Suicidal ideation Bipolar I disorder, most recent episode depressed (CMS/HCC) (HCC) Bipolar I disorder, most recent episode (or current) depressed, unspecified Abrasion or friction burn of lower arm Suicide and self-inflicted injury by cutting and piercing instrument (HCC) Suicide and self-inflicted injury by cutting and piercing instrument Unspecified place of occurrence Hypothyroidism Unspecified hypothyroidism Essential hypertension Unspecified essential hypertension Pure hypercholesterolemia Tobacco use disorder documented in this encounter Care Teams Soda Fountain Operator Relationship Specialty Start Date End Date Daja Kern MD [address] [place] [id number] PCP - General 07/02/08 11/17/11 documented as of this encounter
--- OUTSIDE RECORDS SUMMARY | 2024-03-03 19:39 | XMS_ITS | Encounter Summary ---
Author Organization [facility] Healthcare Address [address] [place] [address] Care Team Providers Care Clinical Staff Educator Name Role Phone Unknown, Jamison Primary Care Provider Unavail able Encounter Details Date Type Department Care Team (Latest Contact Info) Description 10/02/2018 8:00 AM CDT - 10/02/2018 11:59 PM CDT Hospital Encounter [facility] [...] on file Legal Sex Female 6:59 AM RN WOUND CARE Gender Identity Not on file Sexual Orientation Not on file documented as of this encounter Discharge Disposition Disposition Code Departure Means Destination Discharge to home or self care documented in this encounter Plan of Treatment Not on file documented as of this encounter Visit Diagnoses Not on filedocumented in this encounter Care Teams Clinical Staff Educator Relationship Specialty Start Date End Date UnknownJamison PCP - General 08/23/17 09/09/19 documented as of this encounter
--- OUTSIDE RECORDS SUMMARY | 2024-03-03 19:39 | XMS_ITS | Encounter Summary ---
Author Organization [facility] Address [address] [place] [address] Care Team Providers Care Motorcycle Builder Name Role Phone Daja Kern MD Primary Care Provider [phone] Reason for Referral * Diagnostic Imaging (Routine) - Closed Specialty Diagnoses / Procedures Referred By Contac t Referred To Contact Radiology Diagnoses Pain in thoracic spine Procedures MRI Thoracic Spine WO Contrast Adelso Higuera MD [address] [place] [address] [address] [place] [address] Phone: tel: fax: [address] [phone] Referral ID Status Reason Start Date Expiration Date Visits Re quested Visits Authorized [id number] Closed 11/14/2019 12/13/2020 1 1 Reason for Visit * Diagnostic Imaging (Routine) - Closed Specialty Diagnoses / Procedures Referred By Contac t Referred To Contact Radiology Diagnoses Pain in thoracic spine Procedures MRI Thoracic Spine WO Contrast Adelso Higuera MD [address] [place] [address] [address] [place] [address] Phone: tel: fax: [address] [phone] Referral ID Status Reason Start Date Expiration Date Visits Re quested Visits Authorized [id number] Closed 11/14/2019 12/13/2020 1 1 Encounter Details Date Type Department Care Team (Latest Contact Info) Description 11/18/2019 1:46 PM CDT - 11/18/2019 11:59 PM CDT Hospital Encounter [facility] [address] [place] [address] Adelso Higuera MD [address] [place] [address] Pain in thoracic spine Discharge Disposition: Discharge to home or self care Social History Tobacco Use Types Packs/Day Years Used Date Smoking Tobacco: Never Alcohol Use Standard Drinks/Week Comments No 0 (1 standard drink = 0.6 oz pur e alcohol) Comments Unknown Sex and Gender Information Value Date Recorded Sex Assigned at Not on file 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 Overall similar examination when compared to the previous MRI of 11/07/2019 as above. THIS IS AN ELECTRONICALLY VERIFIED FINAL REPORT 11/18/2019 4:22 PM - Electronically signed by Lonny Romero D.O. AP: AP D: ??11/18/2019 4:22 PM T: ??11/18/2019 4:22 PM Report ID: [id number] Reading Location: ??[id number] Narrative 11/18/2019 4:25 PM CDT [facility] ?Imaging Result Name: LITHOPLATE MAKERALONA ? Ordering Phys: ADELSO HIGUERA Age: 48 ?Date of : 1970 ? Accession Number: [id number] Date of Service: 11/18/2019 ??Gender: F EXAM DESCRIPTION: ?? MRI THORACIC SPINE WO CONTRAST REASON FOR STUDY: ?low / mid back painDuration: 10 years TECHNIQUE: ??Sagittal and Axial imaging includes T1, T2, STIR and gradient echo sequences. COMPARISON: ?? Thoracic spine MRI dated 11/07/2019 and lumbar spine MRI dated 09/10/2019. ??ALIGNMENT: ??Anterior posterior alignment is maintained. VERTEBRAE: ??No acute compression fracture in the thoracic spine. ??Minor scattered endplate degenerative changes and marginal spurring. HARDWARE: ??None in the spine. CORD: ??Grossly within normal limits, assessment is limited by artifact. ??There is no convincing T2 hyperintense cord signal alteration reproduced on 2 separate sequences including at the T10-T11 level. THORACIC DISCS: T6-T7: There is a posterior disc protrusion eccentric to the left indenting the ventral thecal sac. ??Dorsal CSF cleft is maintained and the neural foramen is patent. T10-T11: No significant disc bulge. ??Thickened ligamentum flavum indents the dorsal thecal sac. ??Neural foramen are patent. At the remainder of the thoracic levels no significant disc bulge, spinal canal or neural foraminal narrowing. LOWER CERVICAL: ??Incompletely imaged. No high-grade spinal canal narrowing. UPPER LUMBAR: ??Incompletely imaged. ??No high-grade spinal canal narrowing. Procedure Note Lonny Romero DO - 11/18/2019 [facility] Imaging Result Name: ALONA KEMP Ordering Phys: ADELSO HIGUERA Age: 48 Date of : 1970 Accession Number: [id number] Date of Service: 11/18/2019 Gender: F EXAM DESCRIPTION: MRI THORACIC SPINE WO CONTRAST REASON FOR STUDY: low / mid back painDuration: 10 years TECHNIQUE: Sagittal and Axial imaging includes T1, T2, STIR and gradientecho sequences. COMPARISON: Thoracic spine MRI dated 11/07/2019 and lumbar spine MRIdated 09/10/2019. ALIGNMENT: Anterior posterior alignment is maintained. VERTEBRAE: No acute compression fracture in the thoracic spine. Minor scattered endplate degenerative changes and marginal spurring. HARDWARE: None in the spine. CORD: Grossly within normal limits, assessment is limited by artifact.There is no convincing T2 hyperintense cord signal alteration reproduced on 2 separate sequences including at the T10-T11 level. THORACIC DISCS: T6-T7: There is a posterior disc protrusion eccentric to the leftindenting the ventral thecal sac. Dorsal CSF cleft is maintained and the neuralforamen is patent. T10-T11: No significant disc bulge. Thickened ligamentum flavum indentsthe dorsal thecal sac. Neural foramen are patent. At the remainder of the thoracic levels no significant disc bulge,spinal canal or neural foraminal narrowing. LOWER CERVICAL: Incompletely imaged. No high-grade spinal canalnarrowing. UPPER LUMBAR: Incompletely imaged. No high-grade spinal canalnarrowing. IMPRESSION: Overall similar examination when compared to the previous MRI of 11/07/2019 as above. THIS IS AN ELECTRONICALLY VERIFIED FINAL REPORT 11/18/2019 4:22 PM - Electronically signed by Lonny Romero D.O. AP: AP Report ID: [id number] Reading Location: [place] [address] Adelso Higuera MD IMG MRI PROCEDURES Final Result documented in this encounter Visit Diagnoses Diagnosis Pain in thoracic spine documented in this encounter Care Teams Motorcycle Builder Relationship Specialty Start Date End Date Daja Kern MD [address] [place] [address] PCP - General 09/10/19 documented as of this encounter
--- OUTSIDE RECORDS SUMMARY | 2024-03-03 19:39 | XMS_ITS | Encounter Summary ---
Author Organization [facility] Healthcare Address [address] [place] [address] Care Team Providers Care Operations Manager Station Name Role Phone Daja Kern MD Primary Care Provider [phone] Encounter Details Date Type Department Care Team (Late st Contact Info) Description 08/09/2011 6:48 PM CDT - 08/09/2011 11:59 PM CDT Hospital Encounter [facility] [place]ia [place] Obstructive sleep apnea Social History Tobacco Use Types Packs/Day Years Used Date Smoking Tobacco: Never Assessed Comments Unknown Sex and Gender Information Value Date Recorded Sex Assigned at Not on file 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
--- OUTSIDE RECORDS SUMMARY | 2024-03-03 19:39 | XMS_ITS | Encounter Summary ---
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 - 02/17/2011 11:59 PM LABORER LABORATORY Hospital Encounter [facility] Amish Mcintosh Screening for malignant neoplasm of cervix Social History Tobacco Use Types Packs/Day Years Used Date Smoking Tobacco: Never Assessed Comments Unknown Sex and Gender Information Value Date Recorded Sex Assigned at Not on file Legal Sex Female 6:59 AM LABORER 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
--- OUTSIDE RECORDS SUMMARY | 2024-03-03 19:39 | XMS_ITS | Encounter Summary ---
Author Organization [facility] Healthcare Address [address] [place] [address] Care Team Providers Care Medical Laboratory Assistant Name Role Phone Daja Kern MD Primary Care Provider [phone] Encounter Details Date Type Department Care Team (Latest Contact Info) Description 11/09/2011 5:05 PM CDT - 11/14/2011 7:00 PM CDT Hospital Encounter [place] [address] [address] Severe manic bipolar I disorder with psychotic features (CMS/HCC) (HCC); Suicidal ideation; Other and unspecified hyperlipidemia; Essential hypertension; Hypothyroidism; Personal history of noncompliance with medical treatment, presenting hazards to health; Obesity; Esophageal reflux Social History Tobacco Use Types Packs/Day Years Used Date Smoking Tobacco: Never Assessed Comments Unknown Sex and Gender Information Value Date Recorded Sex Assigned at Not on file Legal Sex Female 6:59 AM VIRTUAL ASSISTANT Gender Identity Not on file Sexual Orientation Not on file documented as of this encounter Last Filed Vital Signs Vital Sign Reading Time Taken Comments Blood Pressure 108/62 11/14/2011 6:02 AM CDT Pulse 92 11/14/2011 6:02 AM CDT Temperature - - Respiratory Rate - - Oxygen Saturation - - Inhaled Oxygen Concentration - - Weight 78.5 kg (173 lb) 11/10/2011 2:58 AM CDT Height 157.5 cm (5' 2.01 ) 11/10/2011 2:58 AM CD T Body Mass Index 31.63 11/10/2011 2:58 AM CDT documented in this encounter Plan of Treatment Not on file documented as of this encounter Visit Diagnoses Diagnosis Severe manic bipolar I disorder with psychotic features (CMS/HCC) (HCC) Bipolar I disorder, most recent episode (or current) manic, severe, specified as with psychotic behavior Suicidal ideation Other and unspecified hyperlipidemia Essential hypertension Unspecified essential hypertension Hypothyroidism Unspecified hypothyroidism Personal history of noncompliance with medical treatment, presenting hazards to health Obesity Obesity, unspecified Esophageal reflux documented in this encounter Care Teams Medical Laboratory Assistant Relationship Specialty Start Date End Date Daja Kern MD [address] [place] [address] PCP - General 07/02/08 11/17/11 documented as of this encounter
--- OUTSIDE RECORDS SUMMARY | 2024-03-03 19:39 | XMS_ITS | Encounter Summary ---
Author Organization [facility] Healthcare Address [address] [place] [address] Care Team Providers Care Cooperative Extension Agent Name Role Phone Daja Kern MD Primary Care Provider [phone] Encounter Details Date Type Department Care Team (Late st Contact Info) Description 10/23/2011 1:47 PM CDT - 10/23/2011 11:59 PM CDT Hospital Encounter [facility] Suicidal ideation Social History Tobacco Use Types Packs/Day Years Used Date Smoking Tobacco: Never Assessed Comments Unknown Sex and Gender Information Value Date Recorded Sex Assigned at Not on file Legal Sex Female 6:59 AM LABOR SERVICE 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
--- OUTSIDE RECORDS SUMMARY | 2024-03-03 19:39 | XMS_ITS | Encounter Summary ---
Author Organization [facility] Healthcare Address [address] [place] [address] Care Team Providers Care Research And Evaluation Analyst Name Role Phone Daja Kern MD Primary Care Provider [phone] Encounter Details Date Type Department Care Team (Late st Contact Info) Description 02/25/2011 1:54 PM MICROBIOLOGICAL LAB TECHNICIAN - 02/25/2011 11:59 PM MICROBIOLOGICAL LAB TECHNICIAN Hospital Encounter [facility] CLINCONV Barchugova, Talia Cervicalgia; Pain in joint, shoulder region Social History Tobacco Use Types Packs/Day Years Used Date Smoking Tobacco: Never Assessed Comments Unknown Sex and Gender Information Value Date Recorded Sex Assigned at Not on file Legal Sex Female 6:59 AM MICROBIOLOGICAL LAB TECHNICIAN Gender Identity Not on file Sexual Orientation Not on file documented as of this encounter Plan of Treatment Not on file documented as of this encounter Visit Diagnoses Diagnosis Cervicalgia Pain in joint, shoulder region documented in this encounter Care Teams Research And Evaluation Analyst Relationship Specialty Start Date End Date Daja Kern MD [address] [place] [address] PCP - General 07/02/08 11/17/11 documented as of this encounter
--- OUTSIDE RECORDS SUMMARY | 2024-03-03 19:39 | XMS_ITS | Encounter Summary ---
Author Organization [facility] Healthcare Address [address] [place] [address] Care Team Providers Care Investigator Internal Revenue Name Role Phone Unknown, Jamison Primary Care Provider Unavail able Encounter Details Date Type Department Care Team (Latest Contact Info) Description 08/23/2017 1:45 PM CDT - 08/23/2017 11:59 PM CDT Hospital Encounter [facility] [...] on file Legal Sex Female 6:59 AM CLINICAL TRAINING COORDINATOR Gender Identity Not on file Sexual Orientation Not on file documented as of this encounter Discharge Disposition Disposition Code Departure Means Destination Discharge to home or self care documented in this encounter Plan of Treatment Not on file documented as of this encounter Visit Diagnoses Not on filedocumented in this encounter Care Teams Investigator Internal Revenue Relationship Specialty Start Date End Date UnknownJamison PCP - General 08/23/17 09/09/19 documented as of this encounter
--- OUTSIDE RECORDS SUMMARY | 2024-03-03 19:39 | XMS_ITS | Encounter Summary ---
Author Organization [facility] Address [address] [place] [address] Care Team Providers Care Geographic Information Systems Engineer Name Role Phone Daja Kern MD Primary Care Provider [phone] Reason for Referral * Diagnostic Imaging (Routine) - Closed Specialty Diagnoses / Procedures Referred By Contac t Referred To Contact Radiology Diagnoses Pain in thoracic spine Procedures MRI Thoracic Spine WO Contrast Adelso Higuera MD [address] [place] [address] Phone: tel: fax: [address] [phone] Referral ID Status Reason Start Date Expiration Date Visits Re quested Visits Authorized [id number] Closed 11/14/2019 12/13/2020 1 1 Encounter Details Date Type Department Care Team (Late st Contact Info) Description 11/14/2019 Orders Only [facility] Orthopedics and Sports Medicine [address] [place] [id number] Adelso Higuera MD [address] [place] [address] Pain in thoracic spine (Primary Dx) Social History Tobacco Use Types Packs/Day Years Used Date Smoking Tobacco: Never Alcohol Use Standard Drinks/Week Comments No 0 (1 standard drink = 0.6 oz pur e alcohol) Comments Unknown Sex and Gender Information Value Date Recorded Sex Assigned at Not on file Legal Sex Female 6:59 AM 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 Ordering Phys: ADELSO HIGUERA Age: 48 ?Date of : 1970 ? Accession Number: [id number] Date of Service: 11/18/2019 ??Gender: F EXAM [...] Procedure Note Lonny Romero DO - 11/18/2019 [facility] Imaging Result Name: ALONA KEMP Ordering Phys: ADELSO CACERESEL Age: 48 Date of : 1970 Accession Number: [id number] Date of Service: 11/18/2019 Gender: F EXAM [...] Lonny Romero D.O. AP: AP Report ID: [id number] Reading Location: [place] [address] Adelso Higuera MD IMG MRI PROCEDURES Final Result documented in this encounter Visit Diagnoses Diagnosis Pain in thoracic spine- Primary Pain in thoracic spine documented in this encounter Care Teams Geographic Information Systems Engineer Relationship Specialty Start Date End Date Daja Kern MD [address] [place] [address] PCP - General 09/10/19 documented as of this encounter
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
--- OUTSIDE RECORDS SUMMARY | 2024-03-03 19:39 | XMS_ITS | Encounter Summary ---
Author Organization [facility] Healthcare Address [address] [place] [address] Care Team Providers Care Anthropology Lecturer Name Role Phone Daja Kern MD Primary Care Provider [phone] Reason for Referral * Diagnostic Imaging (Routine) - Closed Specialty Diagnoses / Procedures Referred By Contac t Referred To Contact Radiology Diagnoses Thoracic spine pain Procedures MRI Thoracic Spine WO Contrast Adelso Higuera MD [address] [place] [address] [address] [place] [address] Phone: tel: fax: [address] [phone] Referral ID Status Reason Start Date Expiration Date Visits Re quested Visits Authorized [id number] Closed 10/22/2019 11/20/2020 1 1 Reason for Visit * Diagnostic Imaging (Routine) - Closed Specialty Diagnoses / Procedures Referred By Contac t Referred To Contact Radiology Diagnoses Thoracic spine pain Procedures MRI Thoracic Spine WO Contrast Adelso Higuera MD [address] [place] [address] [address] [place] [address] Phone: tel: fax: [address] [phone] Referral ID Status Reason Start Date Expiration Date Visits Re quested Visits Authorized [id number] Closed 10/22/2019 11/20/2020 1 1 Encounter Details Date Type Department Care Team (Latest Contact Info) Description 11/07/2019 10:54 AM CDT - 11/07/2019 11:59 PM CDT Hospital Encounter [facility] [address] [place] [address] Adelso Higuera MD [address] [place] [address] Thoracic spine pain Discharge Disposition: Discharge to home or self care Social History Tobacco Use Types Packs/Day Years Used Date Smoking Tobacco: Never Alcohol Use Standard Drinks/Week Comments No 0 (1 standard drink = 0.6 oz pur e alcohol) Comments Unknown Sex and Gender Information Value Date Recorded Sex Assigned at Not on file Legal Sex Female 6:59 AM DIVISION SERGEANT Gender Identity Not on file Sexual Orientation Not on file documented as of this encounter Medications at Time of Discharge irbesartan (AVAPRO) 150 mg tablet Take 1 tablet (150 mg total) by mouth daily 10/18/2019 omeprazole (PriLOSEC) 40 mg capsule Take 1 capsule (40 mg total) by mouth daily 02/06/2019 traZODone (DESYREL) 100 mg tablet TK 1 T PO HS 09/24/2019 ARIPiprazole (ABILIFY) 20 mg tablet TK 1 T PO HS 10/22/2019 03/15/2023 baclofen (LIORESAL) 20 mg tablet TK ONE T PO TID 10/22/2019 08/25/2022 gabapentin (NEURONTIN) 300 mg capsule TK ONE C PO BID 08/14/2019 08/25/2022 sertraline (ZOLOFT) 100 mg tablet TK 1 T PO QD 09/24/2019 08/25/2022 sertraline (ZOLOFT) 50 mg tablet TK 1 T PO QD 09/24/2019 08/25/2022 documented as of this encounter Discharge Disposition Disposition Code Departure Means Destination Discharge to home or self care documented in this encounter Plan of Treatment Not on file documented as of this encounter Procedures Procedure Name Priority Date/Time Associated Diagnosis Comments MRI THORACIC SPINE WO CONTRAST Schedule Routine, Read Routine (OP Routine) 11/07/2019 11:58 AM CDT Thoracic spine pain documented in this encounter Results * MRI [...] PM T: ??11/07/2019 12:56 PM Report ID: [id number] Reading Location: ??[id number] Narrative 11/07/2019 1:00 PM CDT [facility] ?Imaging Result Name: ALONA KEMP ? Ordering Phys: ADELSO HIGUERA Age: 48 ?Date of : 1970 ? Accession Number: [id number] Date of Service: 11/07/2019 ??Gender: F EXAM [...] Procedure Note Sawyer Ramirez MD - 11/07/2019 [facility] Imaging Result Name: ALONA KEMP Ordering Phys: ADELSO HIGUERA Age: 48 Date of : 1970 Accession Number: [id number] Date of Service: 11/07/2019 Gender: F EXAM [...] Compromised evaluation, specifically sagittal STIR and axial [id number] with these sequences nondiagnostic for evaluation of [...] Sawyer Ramirez M.D. TING: TING Report ID: [id number] Reading Location: [place] [address] Adelso Higuera MD IMG MRI PROCEDURES Final Result documented in this encounter Visit Diagnoses Diagnosis Thoracic spine pain Pain in thoracic spine documented in this encounter Care Teams Anthropology Lecturer Relationship Specialty Start Date End Date Daja Kern MD [address] [place] [address] PCP - General 09/10/19 documented as of this encounter
--- OUTSIDE RECORDS SUMMARY | 2024-03-03 19:39 | XMS_ITS | Encounter Summary ---
Author Organization [facility] Healthcare Address [address] [place] [address] Care Team Providers Care Windshield Installer Name Role Phone Daja Kern MD Primary Care Provider [phone] Encounter Details Date Type Department Care Team (Late st Contact Info) Description 02/26/2012 8:05 AM DELINEATOR - 02/26/2012 11:59 PM DELINEATOR Hospital Encounter [facility]INCON[facility] Other depressive disorder; Suicidal ideation Social History Tobacco Use Types Packs/Day Years Used Date Smoking Tobacco: Never Assessed Comments Unknown Sex and Gender Information Value Date Recorded Sex Assigned at Not on file Legal Sex Female 6:59 AM DELINEATOR Gender Identity Not on file Sexual Orientation Not on file documented as of this encounter Plan of Treatment Not on file documented as of this encounter Visit Diagnoses Diagnosis Other depressive disorder Suicidal ideation documented in this encounter Care Teams Windshield Installer Relationship Specialty Start Date End Date Daja Kern MD [address] [place] [address] PCP - General 11/18/11 03/28/12 documented as of this encounter
--- OUTSIDE RECORDS SUMMARY | 2024-03-03 19:39 | XMS_ITS | Encounter Summary ---
Author Organization [facility] Address [address] [place] [address] Care Team Providers Care Senior Payroll Manager Name Role Phone Daja Kern MD Primary Care Provider [phone] Reason for Visit * Reason Comments Pain Pain * Consultation (Routine) - Closed Specialty Diagnoses / Procedures Referred By Contac t Referred To Contact Orthopedic Surgery Diagnoses Chronic radicular lumbar pain Daja Kern MD [address] [place] [address] Phone: tel: fax: Adelso Higuera MD [address] [place] [address] [address] [place] [address] Phone: tel: fax: Referral ID Status Reason Start Date Expiration Date V isits Requested Visits Authorized [id number] Closed Specialty Services Required 10/18/2019 11/16/2020 1 1 Encounter Details Date Type Department Care Team (Late st Contact Info) Description 11/21/2019 2:15 PM CDT Office Visit [facility] Orthopedics and Sports Medicine [address] [place] [address] Adelso Higuera MD [address] [place] [address] [address] [place] [id number] DDD (degenerative disc disease), lumbar (Primary Dx); Chronic radicular lumbar pain; Spinal stenosis of lumbar region with neurogenic claudication; Morbid obesity with BMI of 45.0-49.9, adult ([facility]) Social History Tobacco Use Types Packs/Day Years Used Date Smoking Tobacco: Never Smokeless Tobacco: Never Alcohol Use Standard Drinks/Week Comments No 0 (1 standard drink = 0.6 oz pur e alcohol) Comments Unknown Sex and Gender Information Value Date Recorded Sex Assigned at Not on file Legal Sex Female 6:59 AM CLERICAL AND OFFICE SUPPORT WORKERS Gender Identity Not on file Sexual Orientation Not on file documented as of this encounter Last Filed Vital Signs Vital Sign Reading Time Taken Comments Blood Pressure - - Pulse - - Temperature - - Respiratory Rate - - Oxygen Saturation - - Inhaled Oxygen Concentration - - Weight 113.4 kg (250 lb) 11/21/2019 1:25 PM CDT Height 157.5 cm (5' 2 ) 11/21/2019 1:25 PM CDT Body Mass Index 45.73 11/21/2019 1:25 PM CDT documented in this encounter Progress Notes * Adelso Higuera MD - 11/21/2019 2:15 PM CDT Patient ID: Alona Kemp : 1970 DOS: 11/21/2019 ASSESSMENT: Morbid obesity with grade 1 isthmic spondylolisthesis L5-S1 and soft tissue hypersensitivity PLAN: TENS unit and Pain Service referral and a bariatric surgery consult Thank you Dr. Kern for referring Alona Kemp for consultation for low back pain. It was my pleasure to evaluate your patient. Counseling and coordination of care with review of test results and imaging required greater than 50% of the patient/family encounter. Total time wete-na-vxie was 20 minutes. Chief Complaint: Chief Complaint Patient presents with ??? Lumbar Spine - Pain ??? Thoracic Spine - Pain HPI: This is a 48-year-old white female who presents with a 10 year history of recalcitrant low back pain. She is on disability for history of depression. He describes pain radiating into the left buttock and lateral thigh. She denies any lower extremity numbness or weakness or bowel or bladder difficulties. Her low back pain is more less constant. She has had some physical therapy and some injections in the past but it has been quite some time. Her pain tends to be worse with activity and walking. She is taking gabapentin for this as well as a muscle relaxer. She has used a TENS unit in the past but is does not have 1 now. PAST MEDICAL HISTORY: ALLERGIES: Allergies Allergen Reactions ??? Risperidone Other (See comments) Violent and agitated. ??? Sulfa (Sulfonamide Antibiotics) Hives Reaction: Hives, ??? Topiramate Other (See comments) Difficulty with speech and word finding. ??? Ziprasidone Hcl Other (See comments) Abnormal mouth movements MEDICATIONS: Current Outpatient Medications Medication Sig Dispense Refill ??? ARIPiprazole (ABILIFY) 20 mg tablet TK 1 T PO HS ??? baclofen (LIORESAL) 20 mg tablet TK ONE T PO TID ??? buPROPion XL (WELLBUTRIN XL) 300 mg 24 hr tablet No current facility-administered medications for this visit. reviewed in chart by me SOCIAL HISTORY: Social History Social History Narrative ??? Not on file reviewed in chart by me FAMILY HISTORY: Reviewed in chart by me REVIEW OF SYSTEMS: Constitutional: Negative for chills and diaphoresis. HEENT: Negative for congestion and sinus pain. Eyes: Negative for discharge and visual disturbance. Respiratory: Negative for choking, chest tightness and stridor. Cardiovascular: Negative for chest pain and palpitations. Gastrointestinal: Negative for blood in stool and nausea. Endocrine: Negative for polydipsia and polyphagia. Skin: Negative for color change. Hematological: Negative for adenopathy. Psychiatric/Behavioral: Negative for hallucinations and self-injury. PHYSICAL EXAMINATION: Patient Vital Signs for the past 24 hrs: Height Weight 11/21/19 1325 157.5 cm (5' 2 ) 113.4 kg (250 lb) Constitutional: The patient is alert and oriented x3. Examination of gait and station demonstrates normal gait. Skin: Inspection of the skin and subcutaneous areas does not manifest any masses or significant swelling. HEENT: The pupils appear equal and round and tracked normally. There is no evidence of a any facialasymmetry. There are no neck masses palpable today. Pulmonary: The patient is breathing normally with no significant effort demonstrated or distress. Chest wall is symmetric and nontender. Vascular: Pulses appear 1+ in the upper and lower extremities and symmetric. Capillary refill is normal today with nailbeds pink in the upper and lower extremities. Capillary refill is normal. Upper extremities: Demonstrate a full free range of motion of the shoulders elbows wrists and hands. No gross asymmetry. Shoulders: No evidence of any winging or atrophy. Impingement sign is negative bilaterally. Apprehension sign is negative bilaterally. Elbows: No evidence of any asymmetry. Tinel's testing over the cubital tunnel and posterior interosseous nerve her both negative. The lateral epicondyles are nontender bilaterally. Wrist and hands: Show no evidence of any swelling or asymmetry. Lower extremities: Standing limb alignment is normal. Hips: Show a negative logroll bilaterally. Trochanters are nontender. Knees: Demonstrate normal alignment. There is no evidence of any effusion. Range of motion is full.Aram sign negative and anterior posterior stress testing and Rachel sign negative bilaterally.No sign of laxity to varus or valgus stress testing. The patellofemoral joint tracks normally without pain. Ankle: Normal range of motion with no evidence of hind mid or forefoot deformity. Neurologic: Hztfab-sp-onmc and rapid alternating movements appear normal. Deep tendon reflexes are 2+ in the upper extremities and 2+ in the lower extremities. Four extremities examined. Morales's reflexes are absent. Babinski's are downgoing bilaterally. Sensation appears intact to the upper and lower extremities. Motor function is 5/5 to all muscle groups in the upper and lower extremities. Four extremities were examined Neck: Range of motion of the cervical spine is not limited in all planes. There is no tenderness atthe midline Lumbar spine: Range of motion of the lumbar spine is markedly limited in all planes in large part due to the patient's body habitus. There is no tenderness at the midline VITALS: Patient Vital Signs for the past 24 hrs: Height Weight 11/21/19 1325 157.5 cm (5' 2 ) 113.4 kg (250 lb) RADIOGRAPHIC: MRI: Thoracic spine is reviewed and is within normal limits. Lumbar spine demonstrates a spondylolysis of L5 with grade 1 spondylolisthesis with severe disc space narrowing and foraminal stenosis bilaterally. OTHER: LILLY Higuera MD FACS Spinal Surgery documented in this encounter Miscellaneous Notes * Addendum Note - Joy Cali MA - 11/21/2019 2:15 PM CDTAddended by: JOY CALI on: 11/21/2019 01:56 PM Modules accepted: Orders documented in this encounter Plan of Treatment Not on file documented as of this encounter Visit Diagnoses Diagnosis DDD (degenerative disc disease), lumbar- Primary Degeneration of lumbar or lumbosacral intervertebral disc Chronic radicular lumbar pain Spinal stenosis of lumbar region with neurogenic claudication Morbid obesity with BMI of 45.0-49.9, adult (HCC) documented in this encounter Historical Medications * This list may reflect changes made after this encounter. traZODone (DESYREL) 100 mg tablet TK 1 T PO HS 09/24/2019 simvastatin (ZOCOR) 10 mg tablet 11/12/2019 omeprazole (PriLOSEC) 40 mg capsule Take 1 capsule (40 mg total) by mouth daily 02/06/2019 levothyroxine (SYNTHROID) 50 mcg tablet 11/12/2019 irbesartan (AVAPRO) 150 mg tablet Take 1 tablet (150 mg total) by mouth daily 10/18/2019 triamterene-hydro CHLOROthiazide 37.5-25 mg per tablet 11/12/2019 08/25/2022 sertraline (ZOLOFT) 50 mg tablet TK 1 T PO QD 09/24/2019 08/25/2022 sertraline (ZOLOFT) 100 mg tablet TK 1 T PO QD 09/24/2019 08/25/2022 naproxen (NAPROSYN) 500 mg tablet Take 500 mg by mouth 2 (two) times a day as needed 02/22/2020 gabapentin (NEURONTIN) 300 mg capsule TK ONE C PO BID 08/14/2019 08/25/2022 buPROPion XL (WELLBUTRIN XL) 300 mg 24 hr tablet 11/11/2019 08/25/2022 baclofen (LIORESAL) 20 mg tablet TK ONE T PO TID 10/22/2019 08/25/2022 ARIPiprazole (ABILIFY) 20 mg tablet TK 1 T PO HS 10/22/2019 03/15/2023 added in this encounter Orders General Supply Count Last Ordered Date First Or dered Date TENS UNIT 1 11/21/2019 Outpatient Referral Count Last Ordered Date Fir st Ordered Date AMB REFERRAL TO ORTHOPEDIC SURGERY 1 2019 documented in this encounter Care Teams Senior Payroll Manager Relationship Specialty Start Date End Date Daja Kern MD [address] [place], [place] [id number] PCP - General 09/10/19 documented as of this encounter
--- OUTSIDE RECORDS SUMMARY | 2024-03-03 19:39 | XMS_ITS | Encounter Summary ---
Author Organization [facility] Facility Care Team Providers Care Print Support Specialist Name Role Phone Daja Kern MD Primary Care Provider [phone] Encounter Details Date Type Department Care Team (Late st Contact Info) Description 10/13/2011 12:15 PM CDT Hospital Encounter [facility] Beena Lawrence MD [address] [address] Chronic sinusitis; Cough; Allergic rhinitis Social History Tobacco Use Types Packs/Day Years Used Date Smoking Tobacco: Never Assessed Comments Unknown Sex and Gender Information Value Date Recorded Sex Assigned at Not on file Legal Sex Female 6:59 AM STOCKING INSPECTOR Gender Identity Not on file Sexual Orientation Not on file documented as of this encounter Plan of Treatment Not on file documented as of this encounter Visit Diagnoses Diagnosis Chronic sinusitis Unspecified sinusitis (chronic) Cough Allergic rhinitis Allergic rhinitis, cause unspecified documented in this encounter Care Teams Print Support Specialist Relationship Specialty Start Date End Date Daja Kern MD [address] [place] [address] PCP - General 07/02/08 11/17/11 documented as of this encounter
--- OUTSIDE RECORDS SUMMARY | 2024-03-03 19:39 | XMS_ITS | Encounter Summary ---
Author Organization [facility] Healthcare Address [address] [place] [address] Care Team Providers Care Automatic Silk Screen Printer Name Role Phone Daja Kern MD Primary Care Provider [phone] Reason for Visit * Reason Comments Leg Pain Encounter Details Date Type Department Care Team (Late st Contact Info) Description 02/22/2020 3:15 PM CARTON REPAIRER - 02/22/2020 3:45 PM CARTON REPAIRER Emergency [facility] Emergency Department [address] [place] [address] Strain of calf muscle, left, initial encounter (Primary Dx) Discharge Disposition: Discharge to home or self care Social History Tobacco Use Types Packs/Day Years Used Date Smoking Tobacco: Never Smokeless Tobacco: Never Alcohol Use Standard Drinks/Week Comments No 0 (1 standard drink = 0.6 oz pur e alcohol) Comments No Sex and Gender Information Value Date Recorded Sex Assigned at Not on file Legal Sex Female 6:59 AM CARTON REPAIRER Gender Identity Not on file Sexual Orientation Not on file documented as of this encounter Last Filed Vital Signs Vital Sign Reading Time Taken Comments Blood Pressure 160/96 02/22/2020 2:14 PM CARTON REPAIRER Pulse 100 02/22/2020 2:14 PM CARTON REPAIRER Temperature 36.4 ??C (97.6 ??F) 02/22/2020 2:14 PM CS T Respiratory Rate 20 02/22/2020 2:14 PM CARTON REPAIRER Oxygen Saturation 95% 02/22/2020 2:14 PM CARTON REPAIRER Inhaled Oxygen Concentration - - Weight 111.1 kg (245 lb) 02/22/2020 2:14 PM CARTON REPAIRER Height 157.5 cm (5' 2 ) 02/22/2020 2:14 PM CARTON REPAIRER Body Mass Index 44.81 02/22/2020 2:14 PM CARTON REPAIRER documented in this encounter Discharge Diagnoses Diagnosis Strain of other muscle(s) and tendon(s) of posterior muscle group at lower leg level, left leg, initial encounter - STRAIN OF OTHER MUSCLE(S) AND TENDON(S) OF POSTERIOR MUSCLE GROUP AT LOWER LEG LEVEL, LEFT LEG, INIT Exposure to other specified factors, initial encounter - EXPOSURE TO OTHER SPECIFIED FACTORS, INITIAL ENCOUNTER Activity, unspecified - ACTIVITY, UNSPECIFIED Unspecified place or not applicable - UNSPECIFIED PLACE OR NOT APPLICABLE Unspecified external cause status - UNSPECIFIED EXTERNAL CAUSE STATUS Disorder of thyroid, unspecified - DISORDER OF THYROID, UNSPECIFIED Essential (primary) hypertension - ESSENTIAL (PRIMARY) HYPERTENSION Unspecified essential hypertension Pure hypercholesterolemia, unspecified - PURE HYPERCHOLESTEROLEMIA, UNSPECIFIED Gastro-esophageal reflux disease without esophagitis - GASTRO-ESOPHAGEAL REFLUX DISEASE WITHOUT ESOPHAGITIS documented in this encounter Discharge Instructions * Attachments The following attachments cannot be sent through Care Everywhere. * Muscle Strain, Extremity ([place]) documented in this encounter Medications at Time [...] TK ONE C PO BID 08/14/2019 3 naproxen (NAPROSYN) 375 mg tablet Take [...] Refills Last Filled Start Date End Date naproxen (NAPROSYN) 375 mg tablet Take 1 tablet (375 mg total) by mouth 2 (two) times a day with meals P.r.n. pain. Collaborating physician Jadiel Gan MD 20 tablet 02/22/2020 08/26/19 23 tiZANidine (ZANAFLEX) 2 mg tablet Take 1 tablet (2 mg total) by mouth every 8 (eight) hours as needed for muscle spasms Collaborating physician Jadiel Gan MD 20 tablet 02/22/2020 08/26/19 23 documented in this encounter Discharge Disposition Disposition Code Departure Means Destination Discharge to home or self care documented in this encounter ED Notes * Isacc Chao PA - 02/22/2020 3:23 PM CST HPI Chief Complaint Patient presents with ??? Leg Pain 49-year-old female presents with chief complaint of left calf pain and swelling. Onset 1 month ago.Worse over the past week. Getting an intermittent pain she describes is a severe charley horse. Aggravated by activity. Pain is worse at night. Noted swelling over the past few days. Denies chest pain or shortness of breath. Denies history of DVT or PE, coughing up blood, active cancer treatment past 6 months, being bed ridden greater than 3 days, major surgery in the past 4 weeks, or recent immobilization. Patient History: Patient Active Problem List Diagnosis Date Noted ??? Strain of calf muscle 02/22/2020 ??? Adiposity 11/18/2011 Class: Chronic ??? Hypersomnia 11/18/2011 Class: Chronic ??? Obstructive sleep apnea syndrome in adult 11/18/2011 Class: Chronic ??? Hay fever 09/08/2011 Class: Chronic ??? Cough 09/08/2011 Class: Chronic ??? Sinusitis 09/08/2011 Class: Chronic ??? Allergic rhinitis due to pollen 09/08/2011 Class: Chronic ??? Chronic infection of sinus 09/08/2011 Class: Chronic Past Medical History: Diagnosis Date ??? Anemia ??? Depression ??? Gastric reflux ??? Hypercholesteremia ??? Hypertension ??? Thyroid disease Past Surgical History: Procedure Laterality Date ??? SECTION ??? CHOLECYSTECTOMY Family History Problem Relation Age of Onset ??? Diabetes Mother ??? Arthritis Mother Social History Tobacco Use ??? Smoking status: Never Smoker ??? Smokeless tobacco: Never Used Substance Use Topics ??? Alcohol use: No ??? Drug use: Never Social History Social History Narrative ??? Not on file Review of Systems Review of Systems All other systems reviewed negative. All available allergies, past medical history, past surgical history, social history, and medications reviewed from the medical record, nursing notes, and with patient Physical Exam ED Triage Vitals [02/22/20 1414] Temp Pulse Resp BP SpO2 36.4 ??C (97.6 ??F) 100 20 160/96 95 % Temp src Heart Rate Source Patient Position BP Location FiO2 (%) Temporal -- -- -- -- Physical Exam Vitals signs and nursing note reviewed. Constitutional: Appearance: Normal appearance. HENT: Head: Normocephalic. Right Ear: Ear canal and external ear normal. Left Ear: Ear canal and external ear normal. Nose: Nose normal. Mouth/Throat: Mouth: Mucous membranes are moist. Pharynx: Oropharynx is clear. Eyes: Conjunctiva/sclera: Conjunctivae normal. Pupils: Pupils are equal, round, and reactive to light. Neck: Musculoskeletal: Normal range of motion. Cardiovascular: Rate and Rhythm: Normal rate and regular rhythm. Pulses: Normal pulses. Heart sounds: Normal heart sounds. Pulmonary: Effort: Pulmonary effort is normal. Breath sounds: Normal breath sounds. Musculoskeletal: Normal range of motion. Comments: Left leg exam - full active range of motion throughout. Tenderness to the calf region with mild fullness compared to the right calf. Negative for erythema or warmth. Intact motor and sensory throughout. Skin: General: Skin is warm and dry. Neurological: General: No focal deficit present. Mental Status: She is alert and oriented to person, place, and time. Psychiatric: Mood and Affect: Mood normal. Behavior: Behavior normal. Thought Content: Thought content normal. Judgment: Judgment normal. [facility] ED Course as of Feb 22 1528 Time: 02/21 1522 Comment: Discussed with pt all findings as well as plan of care. Pt understands and is agreeable with plan for discharge. All questions and concerns addressed By: Isacc Chao PA Final diagnoses: Strain of calf muscle, left, initial encounter Isacc Chao PA 02/22/201526 Isacc Chao PA 02/22/201527 Cosigned by Jelani Cline MD at 02/22/2020 6:44 PM CARTON REPAIRER ON REPAIRER ON REPAIRER ON REPAIRER Associated attestation - Jelani Cline MD - 02/22/2020 6:44 PM CARTON REPAIRER ED Attestation Based on the medical record the care appears appropriate. * Lashae Torres RN - 02/22/2020 2:12 PM CST 49 y.o. female pt to ED with L leg pain. Reports pain began 1 month ago, but over the past week it is now localized to L calf. ON REPAIRER documented in this encounter Miscellaneous Notes * ED Triage Provider Note - Isacc Chao PA - 02/22/2020 2:13 PM CARTON REPAIRER 49-year-old female presents with chief complaint of left calf pain and swelling. Onset 1 month ago.Worse over the past week. Getting an intermittent pain she describes is a severe charley horse. Aggravated by activity. Pain is worse at night. Noted swelling over the past few days. Denies chest pain or shortness of breath. Denies history of DVT or PE, coughing up blood, active cancer treatment past 6 months, being bed ridden greater than 3 days, major surgery in the past 4 weeks, or recent immobilization. ON REPAIRER documented in this encounter Plan of Treatment Not on file documented as of this encounter Procedures Procedure Name Priority Date/Time Associated Diagnosis Comments EGFR STAT 02/22/2020 2:17 PM CARTON REPAIRER DIFFERENTIAL AUTO STAT 02/22/2020 2:1 7 PM CARTON REPAIRER CBC WITH AUTO DIFFERENTIAL STAT 02/22/2020 2:17 PM CARTON REPAIRER APTT STAT 02/22/2020 2:17 PM CARTON REPAIRER PROTIME-INR STAT 02/22/2020 2:17 PM CARTON REPAIRER D-DIMER, QUANTITATIVE STAT 02/22/2020 2:17 PM CARTON REPAIRER COMPREHENSIVE METABOLIC PANEL STAT 02/22/2020 2:17 PM CARTON REPAIRER documented in this encounter Results * eGFR (02/22/2020 2:17 PM CARTON REPAIRER) eGFR 112 mL/min/1.7 3 m2 [facility] ([place]) Comment: Interpretive Data Reference Interval Normal ?>/= 90 mL/min/1.73m2 Mildly decreased* ? 60 - 89 mL/min/1.73m2 Mildly to moderately decreased ?45 - 59 mL/min/1.73m2 Moderately to severely decreased ??30 - 44 mL/min/1.73m2 Severely decreased ?15 - 29 mL/min/1.73m2 Kidney Failure ?< 15 ??mL/min/1.73m2 *Relative to young adult level If -Greek multiply value by 1.16. Estimated glomerular filtration rate is determined by the CKD-EPI equation recommended by the National Kidney Foundation (KDIGO 2012 Clinical Practice Guideline for the Evaluation and Management of Chronic Kidney Disease. Kidney Intnl Suppl Feb 2012;3:1). The CKD-EPI equation should not be used for patients with unstable renal function and has not been validated in children and those over 70. Current interpretive data was last reviewed 2015. Blood specimen (specimen) 02/22/2020 2:17 PM CARTON REPAIRER 02/22/2020 2:23 PM CARTON REPAIRER Isacc [facility] LAB BLOOD ORDERABLES Final R esult [facility] ([place]) 1 [facility] Department [place] [address] * Differential, auto (02/22/2020 2:17 PM CARTON REPAIRER) Neutrophil abs 5.0 1.7 - 6.5 K/cumm [facility] ([place]) Imm gran abs 0.0 0.0 - 0.1 K/cumm [facility] ([place]) Lymphocyte abs 1.4 0.8 - 3.3 K/cumm [facility] ([place]) Monocyte abs 0.5 0.2 - 0.8 K/cumm [facility] ([place]) Eosinophil abs 0.2 0.0 - 0.5 K/cumm [facility] ([place]) Basophil abs 0.0 0.0 - 0.1 K/cumm [facility] ([place]) Neutrophil pct 70.0 % [facility] ([place]) Comment: Interpretive Data Percent cell count reference ranges are not reported, since discordance with absolute values may lead to misinterpretation of CBC data. Current Interpretive Data was last revised on 2017. Imm gran pct 0.4 % [facility] ([place]) Comment: Interpretive Data Percent cell count reference ranges are not reported, since discordance with absolute values may lead to misinterpretation of CBC data. Current Interpretive Data was last revised on 2017. Lymphocyte pct 19.2 % [facility] ([place]) Comment: Interpretive Data Percent cell count reference ranges are not reported, since discordance with absolute values may lead to misinterpretation of CBC data. Current Interpretive Data was last revised on 2017. Monocyte pct 6.8 % [facility] ([place]) Comment: Interpretive Data Percent cell count reference ranges are not reported, since discordance with absolute values may lead to misinterpretation of CBC data. Current Interpretive Data was last revised on 2017. Eosinophil pct 3.2 % [facility] ([place] Comment: Interpretive Data Percent cell count reference ranges are not reported, since discordance with absolute values may lead to misinterpretation of CBC data. Current Interpretive Data was last revised on 2017. Basophil pct 0.4 % [facility] ([place]) Comment: Interpretive Data Percent cell count reference ranges are not reported, since discordance with absolute values may lead to misinterpretation of CBC data. Current Interpretive Data was last revised on 2017. Blood specimen (specimen) 02/22/2020 2:17 PM CARTON REPAIRER 02/22/2020 2:23 PM CARTON REPAIRER us Isacc [facility] LAB BLOOD ORDERABLES Final R esult [facility] ([place]) 1 [facility] Department [place] [address] * aPTT (02/22/2020 2:17 PM CARTON REPAIRER) aPTT 28 25 - 37 sec [facility] ([place]) Comment: Interpretive data Heparin therapeutic range: 60-94 seconds Range based on correlation with therapeutic heparin activity range of 0.3-0.7 units/ml. Current interpretive data was last revised on 2019. Blood specimen (specimen) 02/22/2020 2:17 PM CARTON REPAIRER 02/22/2020 2:23 PM CARTON REPAIRER Isacc [facility] LAB BLOOD ORDERABLES Final R esult [facility] [place] 1 [facility] Department [place] [address] * Protime-INR (02/22/2020 2:17 PM CARTON REPAIRER) PT 12.2 9.5 - 13.[address] [facility] INR 1.1 0.9 - 1.[address] [facility] ([place]) Comment: Interpretive data Oral anticoagulant therapeutic ranges: Venous thromboembolism prophylaxis or treatment: 2.0-3.0 CARDIOLOGY Standard range: 2.0-3.0 High-intensity range: 2.5-3.5 Refer to indication-specific guidelines for appropriate target ranges for prosthetic heart valve replacement. Current interpretive data was last revised on 2019. Blood specimen (specimen) 02/22/2020 2:17 PM CARTON REPAIRER 02/22/2020 2:23 PM CARTON REPAIRER Isacc [facility] LAB BLOOD ORDERABLES Final R esult [facility] ([place]) 1 [facility] [place] [address] * D-dimer, quantitative (02/22/2020 2:17 PM CARTON REPAIRER) D-Dimer 241 <=499 ng/mL FEU [facility] ([place]) Comment: Interpretive data FDA approved the D-dimer, in conjunction with a low or moderate pretest probability score, to exclude venous thromboembolic events (VTE) (PE and DVT) in outpatients when the D-dimer result is < 500 ng/ml FEU. ?? Evidence supports using an age-adjusted D-dimer cut-off for outpatients older than 50 (age x 10) to improve specificity without sacrificing sensitivity. Example: age 68, VTE cut-off 680 ng/ml FEU. References; Schmargareth HT et al. Brit Med J. 2013;346:f2492. Maranda MARTINEZ et al. Annals Int Med. 2015;163:701-11. Current interpretive data was last revised on 2019. Blood specimen (specimen) 02/22/2020 2:17 PM CARTON REPAIRER 02/22/2020 2:23 PM CARTON REPAIRER Isacc [facility] LAB BLOOD ORDERABLES Final R esult [facility] ([place]) 1 [facility] Department [place] [address] * (ABNORMAL) Comprehensive metabolic panel (02/22/2020 2:17 PM CARTON REPAIRER) Sodium 136 135 - 145 mmol/L [facility] ([place]) Potassium, pl 3.9 3.3 - 4.9 mmol/L [facility] ([place]) Chloride 102 97 - 110 mmol/L [facility] ([place]) CO2 25 22 - 32 mmol/L [facility] ([place]) Anion gap 9 2 - 15 mmol/L [facility] ([place]) BUN 13 8 - 25 mg/dL [facility] ([place]) Creatinine 0.55(L) 0.60 - 1.10 mg/dL [facility] ([place]) Glucose 85 70 - 199 mg/dL [facility] ([place]) [...] classification and Diagnosis of Diabetes Diabetes Care 2017;40 (Suppl. 1):S11. Current interpretive data was last revised 2017. Calcium 9.6 8.5 - 10.3 mg/dL [facility] ([place]) Bilirubin, total 0.2 0.1 - 1.2 mg/dL [facility] ([place]) Protein, pl 7.0 6.5 - 8.5 g/dL [facility] ([place]) Albumin 4.1 3.5 - 5.0 g/dL [facility] ([place]) Alk phos 69 40 - 130 Units/L [facility] ([place]) ALT 14 7 - 45 Units/L [facility] ([place]) AST 13 10 - 45 Units/L [facility] ([place]) Blood specimen (specimen) 02/22/2020 2:17 PM CARTON REPAIRER 02/22/2020 2:23 PM CARTON REPAIRER Isacc [facility] LAB BLOOD ORDERABLES Final R esult [facility] ([place]) 1 [facility] Department [place] [address] * CBC with auto differential (02/22/2020 2:17 PM CARTON REPAIRER) WBC 7.1 3.8 - 9.9 K/cumm [facility] ([place]) Hgb 13.0 11.9 - 15.5 g/dL [facility] ([place]) Hct 39.8 35.6 - 45.5 % [facility] ([place]) Plt 214 150 - 400 K/cumm [facility] ([place]) MPV 11.2 9.1 - 12.3 fL [facility]) RBC 4.36 3.90 - 5.20 M/cumm [facility] ([place]) MCV 91.3 81.3 - 96.4 fL [facility] ([place]) MCH 29.8 27.1 - 33.3 pg [facility] ([place]) MCHC 32.7 32.3 - 35.7 g/dL [facility] ([place]) RDW CV 13.1 11.1 - 14.9 % [facility] ([place]) RDW SD 43.9 35.7 - 48.1 fL [facility] ([place]) NRBC abs 0.00 0.00 - 0.01 K/cumm [facility] ([place]) Blood specimen (specimen) 02/22/2020 2:17 PM CARTON REPAIRER 02/22/2020 2:23 PM CARTON REPAIRER Isacc [facility] LAB BLOOD ORDERABLES Final R esult [facility] ([place]) [address] [facility] Department [place] [address] documented in this encounter Visit Diagnoses Diagnosis Strain of calf muscle, left, initial encounter- Primary Strain of calf muscle documented in this encounter Discontinued Medications Medication Sig Discontinue Reason Start Date End Da te naproxen (NAPROSYN) 500 mg tablet Take 500 mg by mouth 2 (two) times a day as needed 02/22/2020 documented as of this encounter Care Teams Automatic Silk Screen Printer Relationship Specialty Start Date End Date Daja Kern MD [address] [place] [address] PCP - General 09/10/19 documented as of this encounter
--- OUTSIDE RECORDS SUMMARY | 2024-03-03 19:39 | XMS_ITS | Encounter Summary ---
Author Organization [facility] Healthcare Address [address] [place] [address] Care Team Providers Care Report Specialist Name Role Phone Daja Kern MD Primary Care Provider [phone] Encounter Details Date Type Department Care Team (Late st Contact Info) Description 12/01/2011 6:43 PM CDT - 12/01/2011 11:59 PM CDT Hospital Encounter [facility] Fabiana Ji MD [address] [place] [address] [address] [address] Obstructive sleep apnea Social History Tobacco Use Types Packs/Day Years Used Date Smoking Tobacco: Never Assessed Comments Unknown Sex and Gender Information Value Date Recorded Sex Assigned at Not on file Legal Sex Female 6:59 AM PRESIDING STEWARD Gender Identity Not on file Sexual Orientation Not on file documented as of this encounter Plan of Treatment Not on file documented as of this encounter Visit Diagnoses Diagnosis Obstructive sleep apnea Obstructive sleep apnea (adult) (pediatric) documented in this encounter Care Teams Report Specialist Relationship Specialty Start Date End Date Daja Kern MD [address] [place] [address] PCP - General 11/18/11 03/28/12 documented as of this encounter
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
--- OUTSIDE RECORDS SUMMARY | 2024-03-03 19:39 | XMS_ITS | Encounter Summary ---
Author Organization [facility] Healthcare Address [address] [place] [address] Care Team Providers Care Model Maker Scale Name Role Phone Unknown, Jamison Primary Care Provider Unavail able Encounter Details Date Type Department Care Team (Latest Contact Info) Description 09/26/2018 12:42 PM CDT - 09/26/2018 11:59 PM CDT Hospital Encounter [facility] [...] on file Legal Sex Female 6:59 AM REEL CART OPERATOR Gender Identity Not on file Sexual Orientation Not on file documented as of this encounter Discharge Disposition Disposition Code Departure Means Destination Discharge to home or self care documented in this encounter Plan of Treatment Not on file documented as of this encounter Visit Diagnoses Not on filedocumented in this encounter Care Teams Model Maker Scale Relationship Specialty Start Date End Date UnknownJamison PCP - General 08/23/17 09/09/19 documented as of this encounter
--- OUTSIDE RECORDS SUMMARY | 2024-03-03 19:39 | XMS_ITS | Encounter Summary ---
Author Organization [facility] Healthcare Address [address] [place] [address] Care Team Providers Care Casting Machine Control Board Operator Name Role Phone Daja Kern MD Primary Care Provider [phone] Encounter Details Date Type Department Care Team (Late st Contact Info) Description 12/07/2010 12:16 AM CDT - 12/07/2010 11:59 PM CDT Hospital Encounter [facility]INCON[facility] Special screening examination for other specified viral diseases; Other vitamin B12 deficiency anemia; Other abnormal glucose Social History Tobacco Use Types Packs/Day Years Used Date Smoking Tobacco: Never Assessed Comments Unknown Sex and Gender Information Value Date Recorded Sex Assigned at Not on file Legal Sex Female 6:59 AM VEHICLE 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
--- OUTSIDE RECORDS SUMMARY | 2024-03-03 19:39 | XMS_ITS | Encounter Summary ---
Author Organization [facility] Healthcare Address [address] [place] [address] Care Team Providers Care Recording Engineer Name Role Phone Daja Kern MD Primary Care Provider Encounter Details Date Type Department Care Team (Late st Contact Info) Description 12/24/2010 5:23 PM CDT - 12/24/2010 6:57 PM CDT Hospital Encounter [facility] Wendy Estrella MD [address] [place] [address] Acute bronchitis; Acute upper respiratory infection Social History Tobacco Use Types Packs/Day Years Used Date Smoking Tobacco: Never Assessed Comments Unknown Sex and Gender Information Value Date Recorded Sex Assigned at Not on file Legal Sex Female 6:59 AM 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
--- OUTSIDE RECORDS SUMMARY | 2024-03-03 19:39 | XMS_ITS | Encounter Summary ---
Author Organization [facility] Healthcare Address [address] [place] [address] Care Team Providers Care Alum Mixer Name Role Phone Daja Kern MD Primary Care Provider [phone] Encounter Details Date Type Department Care Team (Late st Contact Info) Description 03/22/2011 1:45 PM BIG DATA SOFTWARE ENGINEER - 04/14/2011 11:59 PM BIG DATA SOFTWARE ENGINEER Hospital Encounter [facility]INT[facility] Moreau Encounter for other physical therapy; Cervicalgia; Pain in joint, shoulder region Social History Tobacco Use Types Packs/Day Years Used Date Smoking Tobacco: Never Assessed Comments Unknown Sex and Gender Information Value Date Recorded Sex Assigned at Not on file Legal Sex Female 6:59 AM BIG DATA SOFTWARE ENGINEER Gender Identity Not on file Sexual Orientation Not on file documented as of this encounter Plan of Treatment Not on file documented as of this encounter Visit Diagnoses Diagnosis Encounter for other physical therapy Cervicalgia Pain in joint, shoulder region documented in this encounter Care Teams Alum Mixer Relationship Specialty Start Date End Date Daja Kern MD [address] [place] [address] PCP - General 07/02/08 11/17/11 documented as of this encounter
--- OUTSIDE RECORDS SUMMARY | 2024-03-03 19:39 | XMS_ITS | Encounter Summary ---
Author Organization [facility] Healthcare Address [address] [place] [address] Care Team Providers Care Licensing Court Magistrate Name Role Phone Daja Kern MD Primary Care Provider [phone] Encounter Details Date Type Department Care Team (Late st Contact Info) Description 05/16/2014 2:47 AM CDT - 05/16/2014 11:59 PM CDT Hospital Encounter [facility] Suicidal ideation Social History Tobacco Use Types Packs/Day Years Used Date Smoking Tobacco: Never Alcohol Use Standard Drinks/Week Comments No 0 (1 standard drink = 0.6 oz pur e alcohol) Comments Unknown Sex and Gender Information Value Date Recorded Sex Assigned at Not on file Legal Sex Female 6:59 AM DIRECTOR EDUCATIONAL RADIO Gender Identity Not on file Sexual Orientation Not on file documented as of this encounter Plan of Treatment Not on file documented as of this encounter Visit Diagnoses Diagnosis Suicidal ideation documented in this encounter Care Teams Licensing Court Magistrate Relationship Specialty Start Date End Date Daja Kern MD [address] [place] [address] PCP - General 03/29/12 08/22/17 documented as of this encounter
--- OUTSIDE RECORDS SUMMARY | 2024-03-03 19:39 | XMS_ITS | Encounter Summary ---
Author Organization [facility] Healthcare Address [address] [place] [address] Care Team Providers Care Supercalender Operator Helper Name Role Phone Daja Kern MD Primary Care Provider [phone] Encounter Details Date Type Department Care Team (Late st Contact Info) Description 08/27/2010 12:01 AM CDT - 08/27/2010 11:59 PM CDT Hospital Encounter [facility] [place] Abdominal pain Social History Tobacco Use Types Packs/Day Years Used Date Smoking Tobacco: Never Assessed Comments Unknown Sex and Gender Information Value Date Recorded Sex Assigned at Not on file Legal Sex Female 6:59 AM SUPERVISOR WINDING DEPARTMENT Gender Identity Not on file Sexual Orientation Not on file documented as of this encounter Plan of Treatment Not on file documented as of this encounter Visit Diagnoses Diagnosis Abdominal pain Abdominal pain, unspecified site documented in this encounter Care Teams Supercalender Operator Helper Relationship Specialty Start Date End Date Daja Kern MD [address] [place] [address] PCP - General 07/02/08 11/17/11 documented as of this encounter
--- OUTSIDE RECORDS SUMMARY | 2024-03-03 19:39 | XMS_ITS | Encounter Summary ---
Author Organization [facility] Healthcare Address [address] [place] [address] Care Team Providers Care Inspector Circuitry Negative Name Role Phone Daja Kern MD Primary Care Provider [phone] Encounter Details Date Type Department Care Team (Late st Contact Info) Description 03/04/2011 1:37 PM STITCH CLEANER - 03/04/2011 1:55 PM STITCH CLEANER Hospital Encounter [facility]INCON[facility] Wendy Estrella MD [address] [address] Acute bronchitis Social History Tobacco Use Types Packs/Day Years Used Date Smoking Tobacco: Never Assessed Comments Unknown Sex and Gender Information Value Date Recorded Sex Assigned at Not on file Legal Sex Female 6:59 AM STITCH CLEANER Gender Identity Not on file Sexual Orientation Not on file documented as of this encounter Plan of Treatment Not on file documented as of this encounter Visit Diagnoses Diagnosis Acute bronchitis documented in this encounter Care Teams Inspector Circuitry Negative Relationship Specialty Start Date End Date Daja Kern MD [address] [place] [address] PCP - General 07/02/08 11/17/11 documented as of this encounter
--- OUTSIDE RECORDS SUMMARY | 2024-03-03 19:39 | XMS_ITS | Encounter Summary ---
Author Organization [facility] Healthcare Address [address] [place] [address] Care Team Providers Care Fan Blade Truer Name Role Phone Daja Kern MD Primary Care Provider [phone] Encounter Details Date Type Department Care Team (Late st Contact Info) Description 09/13/2012 9:15 PM CDT - 09/13/2012 10:40 PM CDT Hospital Encounter [facility] Wendy Moore MD [address] [place] [address] [place] [address] Urinary tract infection; Essential hypertension; Hypothyroidism Social History Tobacco Use Types Packs/Day Years Used Date Smoking Tobacco: Never Assessed Alcohol Use Standard Drinks/Week Comments No 0 (1 standard drink = 0.6 oz pur e alcohol) Comments Unknown Sex and Gender Information Value Date Recorded Sex Assigned at Not on file Legal Sex Female 6:59 AM SHREDDED FILLER MACHINE WRAPPER LAYER Gender Identity Not on file Sexual Orientation Not on file documented as of this encounter Plan of Treatment Not on file documented as of this encounter Procedures Procedure Name Priority Date/Time Associated Diagnosis Comments DISCHARGE CUMULATIVE SUMMARY ADDENDUM Routine 09/17/2012 12:21 AM CDT URINE MICROSCOPY Routine 09/13/2012 9:47 PM CDT URINE CHORIONIC GONADOTROPIN (HCG) Routine 09/13/2012 9:47 PM CDT URINALYSIS Routine 09/13/2012 9:47 PM CDT MICROBIOLOGY SUMMARY Routine 09/13/2012 12:00 AM CDT DISCHARGE LABORATORY CUMULATIVE REPORT Routine 09/13/2012 12:00 AM CDT documented in this encounter Results * Discharge Cumulative Summary Addendum (09/17/2012 12:21 AM CDT) 09/17/2012 12:2 1 AM CDT Narrative HISTORICAL RESULTS - 09/17/2012 12:21 AM CDT Patient No: [id number] ? [facility] Patient Name: ALONA KEMP ? [facility] Healthcare Age: 41 YRS ?: 1970 ?Sex:F ?[address] )[id number] ?? Adm Dt: 09/13/2012 ?[place], [place] ??[address] Created: 09/17/2012 ??0021 ?? Pt. Type: E ? Discharge Dt: 09/13/2012 ? Pathologists: Radha Choe MD Admit Attend Dr: WENDY ESTRELLA MD ? MICRO - URINE URINE CULTURE ? Collected: 09/13/122146 ? Received: 09/13/122227 Source: CLEAN CATCH URINE ? Started: 09/14/12 040 ? PRELIMINARY REPORT ?09/15/1242 ? GREATER THAN 100, 000 CFU/ml GRAM NEGATIVE RODS ? (IDENTIFICATION AND SENSITIVITIES TO FOLLOW) ? FINAL REPORT ?09/16/12 0653 ? GREATER THAN 100, 000 CFU/ml ESCHERICHIA COLI ?(SENSITIVITIES PERFORMED) SUSCEPTIBILITY TESTING E COLI ? EZ EZ INTERP ? ___ ?AMPICILLIN ? <=8 ?S ?CEFAZOLIN ?<=8 ?S ?CEPHALOTHIN ? 16 ?I ?CIPROFLOXACIN ?<=1 ?S ?NITROFURANTOIN ?<=32 ?S ?TETRACYCLINE ? <=4 ?S ?TOBRAMYCIN ? <=4 ?S ?TRIMETH/SULF ?<=2/38 ?S ?? END OF CHART ? Page: ?? 1 [facility] Provider MD LAB MICROBIOLOGY - GENERA L ORDERABLES Final Result Performing Organization Address [facility] de Phone Number HISTORICAL RESULTS * Urine chorionic gonadotropin (HCG) (09/13/2012 9:47 PM CDT) HCG, ur Negative NEGATIVE HISTORICAL RESULTS Urine 09/13/2012 9:47 PM CDT Result [facility] Wendy Estrella MD LAB BLOOD ORDERABLES Final Result Performing Organization Address [facility] de Phone Number HISTORICAL RESULTS * (ABNORMAL) Urinalysis (09/13/2012 9:47 PM CDT) Color, ur YELLOW YELLOW HISTORICAL RESULTS Clarity, ur CLOUDY(A) CLEAR HISTORIC AL RESULTS Specific gravity, ur 1.008 1.000 - 1.030 gu HISTORICAL RESULTS Leukocyte esterase, ur LARGE(A) NEGATIVE HISTORICAL RESULTS Nitrites, ur Negative NEGATIVE HISTORI ROSALIO RESULTS pH, ur 6.5 6.0 HISTORICAL RESULTS Protein, ur 30 NEGATIVE HISTORIC AL RESULTS Glucose, ur Negative NEGATIVE HISTORIC AL RESULTS Ketones, ur Negative NEGATIVE HISTORIC AL RESULTS Urobilinogen, quant, ur 0.2 0.2 - 1.0 mg/dl HISTORICAL RESULTS Bilirubin, ur Negative NEGATIVE HISTOR ICAL RESULTS U Blood MODERATE(A) NEGATIVE HISTORIC AL RESULTS Urine 09/13/2012 9:47 PM CDT Wendy Estrella MD LAB BLOOD ORDERABLES Final Result Performing Organization Address [facility] de Phone Number HISTORICAL RESULTS * (ABNORMAL) Urine microscopy (09/13/2012 9:47 PM CDT) WBC, ur >100(A) 0 - 2 /hpf HISTORICA L RESULTS RBC, ur 0 - 2 0 - 5 /hpf HISTORICA L RESULTS Epithelial cells, ur 2 - 5(A) 0 - 2 /hpf HISTORICAL RESULTS Bacteria, ur 2+(A) NEGATIVE /hpf HISTORICAL RESULTS Hyaline casts 2 - 5 0 - 4 /lpf HISTO RICAL RESULTS Crystals, ur Negative NEGATIVE HISTORI ROSALIO RESULTS Yeast, ur Negative NEGATIVE HISTORICAL RESULTS Pathological casts, ur Negative NEGATIVE HISTORICAL RESULTS Urine 09/13/2012 9:47 PM CDT us Wendy Estrella MD LAB BLOOD ORDERABLES Final Result HISTORICAL RESULTS * Microbiology Summary (09/13/2012 12:00 AM CDT) 09/13/2012 Narrative HISTORICAL RESULTS - 09/17/2012 12:23 AM CDT ? [facility] ?CLINICAL LABORATORIES ? MICROBIOLOGY REPORT PATIENT NAME: ??ALONA KEMP ? MED RECORD#: ??[id number] BIRTHDATE: ??1970 ?? AGE: ??41 YRS SEX: F ?PATIENT#: ? [id number] ADMITTING DR: ??WENDY ESTRELLA MD ? ATTENDING DR: ??WENDY ESTRELLA MD ?ACCESSION#: ?? [id number] CREATED: ??09/17/12 ?? 0020 ? ADMIT DATE: ?? 09/13/12 ? MICRO - URINE URINE CULTURE ? Collected: 09/13/12 2147 ? Received: 09/13/128 Source: CLEAN CATCH URINE ? Started: 09/14/12 0404 ?09/15/12741 ? GREATER THAN 100, 000 CFU/ml GRAM NEGATIVE RODS ? (IDENTIFICATION AND SENSITIVITIES TO FOLLOW) ?09/16/12 0653 ? GREATER THAN 100, 000 CFU/ml ESCHERICHIA COLI ?(SENSITIVITIES PERFORMED) E COLI ? EZ EZ INTERP ? ___ ?AMPICILLIN ? <=8 ?S ?CEFAZOLIN ?<=8 ?S ?CEPHALOTHIN ? 16 ?I ?CIPROFLOXACIN ?<=1 ?S ?NITROFURANTOIN ?<=32 ?S ?TETRACYCLINE ? <=4 ?S ?TOBRAMYCIN ? <=4 ?S ?TRIMETH/SULF ?<=2/38 ?S ?? END OF CHART us Historical Provider MD LAB MICROBIOLOGY - GENERA L ORDERABLES Final Result HISTORICAL RESULTS * Discharge Laboratory Cumulative Report (09/13/2012 12:00 AM CDT) 09/13/2012 Narrative HISTORICAL RESULTS - 09/14/2012 12:25 AM CDT Patient No: [id number] ? [facility] Patient Name: ALONA KEMP ? [facility] Age: 41 YRS ?: 1970 ?Sex:F ?[address] )[id number] ?? Adm Dt: 09/13/2012 ?[place], [place] ??[address] Created: 09/14/2012 ??0025 ?? Pt. Type: E ? Discharge Dt: 09/13/2012 ? Pathologists: Radha Choe MD Admit Dr. Rider Dr: WENDY ESTRELLA MD ? [place] ?Collection Date: ?07/18/13 ?Collection Time: ?2147 ? Ref Range: ?? Units: [NEGATIVE] ?U ? NEGATIVE ?URINALYSIS ?Collection Date: ?07/18/13 ?Collection Time: ?2147 ? Ref Range: ?? Units: [YELLOW] ? U COLOR ? YELLOW ??[CLEAR] ? U APPEARANCE ?CLOUDY * [1.000-1.030] ? U SPEC GRAVITY ? 1.008 [NEGATIVE] ?U LEUKO ESTRASE ?LARGE * [NEGATIVE] ?U NITRITE ? NEGATIVE ?? [6.0] ?U PH ? 6.5 [NEGATIVE] ?U PROTEIN ? 30 [NEGATIVE] ?U GLUCOSE ? NEGATIVE [NEGATIVE] ?U KETONES ? NEGATIVE [0.2- 1.0] ?UROBILINOGEN ? 0.2 [NEGATIVE] ?U BILIRUBIN ? NEGATIVE [NEGATIVE] ?U BLOOD ? MODERATE * ?? [0-2] ?U WBC ? >100 * ?? [0-5] ?U RBC ?0-2 ?? [0-2] ?U EPI CELLS ?2-5 * [NEGATIVE] ?U BACTERIA ?2+ * ?U YEASTS ?NEGATIVE ?? [0-4] ?U HYALINE CASTS ?2-5 [NEGATIVE] ?U CRYSTALS ?NEGATIVE [NEGATIVE] ?U PATH CASTS ?NEGATIVE Footnotes and Symbols: * = Abnormal ?? END OF CHART ? Page: ?? 1 us Historical Provider LAB BLOOD ORDERABLES Radha l Result HISTORICAL RESULTS documented in this encounter Visit Diagnoses Diagnosis Urinary tract infection Urinary tract infection, site not specified Essential hypertension Unspecified essential hypertension Hypothyroidism Unspecified hypothyroidism documented in this encounter Care Teams Fan Blade Truer Relationship Specialty Start Date End Date Daja Kern MD [address] [place] [address] PCP - General 03/29/12 08/22/17 documented as of this encounter
--- OUTSIDE RECORDS SUMMARY | 2024-03-03 19:39 | XMS_ITS | Encounter Summary ---
Author Organization [facility] Healthcare Address [address] [place] [address] Care Team Providers Care Stoker Installation Mechanic Name Role Phone Daja Kern MD Primary Care Provider [phone] Reason for Visit * Reason Comments Leg Pain Encounter Details Date Type Department Care Team (Late st Contact Info) Description 06/30/2020 12:03 PM CDT - 06/30/2020 12:44 PM CDT Emergency [facility] Emergency Department [address] [place] [address] Left sided sciatica (Primary Dx) Discharge Disposition: Discharge to home or self care Social History Tobacco Use Types Packs/Day Years Used Date Smoking Tobacco: Never Smokeless Tobacco: Never Alcohol Use Standard Drinks/Week Comments No 0 (1 standard drink = 0.6 oz pur e alcohol) Comments No Sex and Gender Information Value Date Recorded Sex Assigned at Not on file Legal Sex Female 6:59 AM CLINICAL SAFETY MANAGER Gender Identity Not on file Sexual Orientation Not on file documented as of this encounter Last Filed Vital Signs Vital Sign Reading Time Taken Comments Blood Pressure 169/89 06/30/2020 12:07 PM CDT Pulse 99 06/30/2020 11:59 AM CDT Temperature 36.3 ??C (97.4 ??F) 06/30/2020 1 1:59 AM CDT Respiratory Rate 18 06/30/2020 11:5 9 AM CDT Oxygen Saturation 100% 06/30/2020 11: 59 AM CDT Inhaled Oxygen Concentration - - Weight 111.1 kg (244 lb 14.9 oz) 2020 11:59 AM CDT Height 157.5 cm (5' 2.01 ) 06/30/2020 1 1:59 AM CDT Body Mass Index 44.79 06/30/2020 11:59 AM CDT documented in this encounter Discharge Diagnoses Diagnosis Sciatica, left side - SCIATICA, LEFT SIDE Gastro-esophageal reflux disease without esophagitis - GASTRO-ESOPHAGEAL REFLUX DISEASE WITHOUT ESOPHAGITIS Pure hypercholesterolemia, unspecified - PURE HYPERCHOLESTEROLEMIA, UNSPECIFIED Essential (primary) hypertension - ESSENTIAL (PRIMARY) HYPERTENSION Unspecified essential hypertension Disorder of thyroid, unspecified - DISORDER OF THYROID, UNSPECIFIED Anemia, unspecified - ANEMIA, UNSPECIFIED Major depressive disorder, single episode, unspecified - MAJOR DEPRESSIVE DISORDER, SINGLE EPISODE, UNSPECIFIED Family history of arthritis - FAMILY HISTORY OF ARTHRITIS Family history of diabetes mellitus - FAMILY HISTORY OF DIABETES MELLITUS documented in this encounter Discharge Instructions * Discharge Instructions* Nikki Amaya NP - 06/30/2020 12:33 PM CDT Use over the counter Tylenol and Motrin per manufacturers guidelines for relief of pain and fever. Follow up with Dr. Kern without fail. Start prednisone on 07/01/20 * Attachments The following attachments cannot be sent through Care Everywhere. * Sciatica (AfterCare(R) Instructions(ER/ED)) (Iraqi) documented in this encounter Medications at Time of Discharge irbesartan (AVAPRO) 150 mg tablet Take 1 tablet (150 mg total) by mouth daily 10/18/2019 levothyroxine (SYNTHROID) 50 mcg tablet 11/12/2019 omeprazole (PriLOSEC) 40 mg capsule Take 1 capsule (40 mg total) by mouth daily 02/06/2019 simvastatin (ZOCOR) 10 mg tablet 11/12/2019 traZODone (DESYREL) 100 mg tablet TK 1 T PO HS 09/24/2019 predniSONE (DELTASONE) 20 mg tablet Take 3 tablets (60 mg) by mouth daily for 4 days Start on 07/01/20 12 tablet 06/30/2020 1 ARIPiprazole (ABILIFY) 20 mg tablet TK 1 [...] Refills Last Filled Start Date End Date HYDROcodone-acetam inophen (NORCO) 5-325 mg per tabletIndications: Pain Take 1 tablet by mouth every 4 (four) hours as needed for pain 12 tablet 06/30/2020 3 predniSONE (DELTASONE) 20 mg tablet Take 3 tablets (60 mg) by mouth daily for 4 days Start on 07/01/20 12 tablet 06/30/2020 1 documented in this encounter Discharge Disposition Disposition Code Departure Means Destination Discharge to home or self care documented in this encounter ED Notes * Nikki Amaya NP - 06/30/2020 12:44 PM CDT HPI Chief Complaint Patient presents with ??? Leg Pain 49 y.o. year old female with PMHX : No date: Anemia No date: Depression No date: Gastric reflux No date: Hypercholesteremia No date: Hypertension No date: Thyroid disease; accompanied by self presents to ED with c/o Leg Pain Denies fever, chills, nausea, vomiting, diarrhea, SOB, CP, numbness, tingling. Patient presents to the emergency room for evaluation of left leg cramping. Patient reports it feels like her foot is pulling up. Reports 3 days in duration. Reports taking muscle relaxers, tylenol, aleve with no relief. Denies injury. No other complaint at this time. Patient History: Patient Active Problem List Diagnosis [...] for chills and fever. HENT: Negative for ear pain and sore throat. Eyes: Negative for pain and visual disturbance. Respiratory: Negative for cough and shortness of breath. Cardiovascular: Negative for chest pain and palpitations. Gastrointestinal: Negative for abdominal pain and vomiting. Genitourinary: Positive for flank pain. Negative for dysuria and hematuria. Musculoskeletal: Negative for arthralgias and back pain. Skin: Negative for color change and rash. Neurological: Negative for seizures and syncope. All other systems reviewed and are negative. Physical Exam ED Triage Vitals Temp Pulse Resp BP SpO2 06/30/20 1159 06/30/20 1159 06/30/20 1159 06/30/20 1207 06/30/20 1159 36.3 ??C (97.4 ??F) 99 18 169/89 100 % Temp src Heart Rate Source Patient Position BP Location FiO2 (%) 06/30/20 1159 -- -- -- -- Temporal Physical Exam Vitals and nursing note reviewed. Constitutional: General: She is awake. She is not in acute distress. Appearance: Normal appearance. She is well-developed. She is not ill-appearing, toxic-appearing or diaphoretic. HENT: Head: Normocephalic and atraumatic. Right Ear: Hearing and external ear normal. Left Ear: Hearing and external ear normal. Nose: Nose normal. Mouth/Throat: Lips: [place]. Mouth: Mucous membranes are moist. Eyes: General: Lids are normal. Conjunctiva/sclera: Conjunctivae normal. Cardiovascular: Rate and Rhythm: Normal rate and regular rhythm. Pulses: Normal pulses. No decreased pulses. Heart sounds: Normal heart sounds. No murmur. Pulmonary: Effort: Pulmonary effort is normal. No respiratory distress. Breath sounds: Normal breath sounds and air entry. No stridor, decreased air movement or transmitted upper airway sounds. No decreased breath sounds, wheezing, rhonchi or rales. Abdominal: General: Bowel sounds are normal. There is no distension. Palpations: Abdomen is soft. Tenderness: There is no abdominal tenderness. There is no guarding. Musculoskeletal: Cervical back: Normal, full passive range of motion without pain, normal range of motion and neck supple. Thoracic back: Normal. Comments: No tenderness with palpation to spinous processes Tenderness with palpation over left buttocks and posteriorly down left leg to foot. Negative straight leg raises. Distal sensation intact, capillary refill less than 2 seconds, pedal pulse 2+. Skin: General: Skin is warm and dry. Neurological: Mental Status: She is alert, oriented to person, place, and time and easily aroused. Psychiatric: Behavior: Behavior is cooperative. MDM MDM Final diagnoses: Left sided sciatica Nikki Amaya NP 07/01/202100 Cosigned by Lily Villarreal MD at 07/02/2020 4:26 PM CDT * Anjali Casas RN - 06/30/2020 12:00 PM CDT Patient presents to the emergency room for evaluation of left leg cramping. Patient reports it feels like her foot is pulling up. Reports 3 days in duration. Reports taking muscle relaxers, tylenol, aleve with no relief. NAD documented in this encounter Plan of Treatment Not on file documented as of this encounter Visit Diagnoses Diagnosis Left sided sciatica- Primary Sciatica documented in this encounter Administered Medications Inactive Administered Medications - up to 3 most recent administrations Medication Order MAR Action Action Date Dose Rate Site HYDROcodone-acetaminophen (NORCO) 5-325 mg per tablet 1 tablet 1 tablet, oral, Once, On Mon06/30/20 at 1206, For 1 dose, Indications: PainIndications:Pain Given 06/30/2020 12:10 PM CDT 1 tablet predniSONE (DELTASONE) tablet 60 mg 60 mg, oral, Once, On Mon06/30/20 at 1206, For 1 dose Given 06/30/2020 12:10 PM CDT 60 mg documented in this encounter Active and Recently Administered Medications Times are shown in CDT. Scheduled Medication Order 06/28/2020 06/29/2020 06/30/2020 HYDROcodone-acetaminophen (NORCO) 5-325 mg per tablet 1 tablet (COMPLETED) 1 tablet, oral, Once, On Mon06/30/20 at 1206, For 1 dose, Indications: Pain 1210 (Given - Provid er: Veronika Díaz RN) predniSONE (DELTASONE) tablet 60 mg (COMPLETED) 60 mg, oral, Once, On Tu06/30/20 at 1206, For 1 dose 1210 (Given - Provid er: Veronika Díaz RN) documented in this encounter Care Teams Stoker Installation Mechanic Relationship Specialty Start Date End Date Daja Kern MD [address] [place] [address] PCP - General 09/10/19 documented as of this encounter
--- OUTSIDE RECORDS SUMMARY | 2024-03-03 19:39 | XMS_ITS | Encounter Summary ---
Author Organization [facility] Healthcare Address [address] [place] [address] Care Team Providers Care Bullion Weigher Name Role Phone Daja Kern MD Primary Care Provider [phone] Encounter Details Date Type Department Care Team (Latest Contact Info) Description 11/09/2011 4:19 PM CDT - 11/09/2011 11:59 PM CDT Hospital Encounter [facility]CON[facility] Nonpsychotic mental disorder Social History Tobacco Use Types Packs/Day Years Used Date Smoking Tobacco: Never Assessed Comments Unknown Sex and Gender Information Value Date Recorded Sex Assigned at Not on file Legal Sex Female 6:59 AM RAMP ATTENDANT Gender Identity Not on file Sexual Orientation Not on file documented as of this encounter Plan of Treatment Not on file documented as of this encounter Visit Diagnoses Diagnosis 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
--- OUTSIDE RECORDS SUMMARY | 2024-03-03 19:39 | XMS_ITS | Encounter Summary ---
Author Organization [facility] Healthcare Address [address] [place] [address] Care Team Providers Care Food Service Representative Name Role Phone Daja Kern MD Primary Care Provider [phone] Encounter Details Date Type Department Care Team (Late st Contact Info) Description 03/30/2011 8:48 PM BULLET ASSEMBLY PRESS OPERATOR - 03/30/2011 11:59 PM BULLET ASSEMBLY PRESS OPERATOR Hospital Encounter [facility] Talia Flores Danielle Leigh, ADITYA [address] [place] [address] [place] [address] Urinary frequency Social History Tobacco Use Types Packs/Day Years Used Date Smoking Tobacco: Never Assessed Comments Unknown Sex and Gender Information Value Date Recorded Sex Assigned at Not on file Legal Sex Female 6:59 AM BULLET ASSEMBLY PRESS OPERATOR Gender Identity Not on file Sexual Orientation Not on file documented as of this encounter Plan of Treatment Not on file documented as of this encounter Visit Diagnoses Diagnosis Urinary frequency documented in this encounter Care Teams Food Service Representative Relationship Specialty Start Date End Date Daja Kern MD [address] [place] [address] PCP - General 07/02/08 11/17/11 documented as of this encounter
--- OUTSIDE RECORDS SUMMARY | 2024-03-03 19:40 | XMS_ITS | Encounter Summary ---
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) (HCC); Benign essential hypertension; Other acute embolism veins; Deep transverse arrest Social History Tobacco Use Types Packs/Day Years Used Date Smoking Tobacco: Never Assessed Comments Unknown Sex and Gender Information Value Date Recorded Sex Assigned at Not on file Legal Sex Female 6:59 AM FAGOT HEATER HELPER Gender Identity Not on file Sexual Orientation Not on file documented as of this encounter Plan of Treatment Not on file documented as of this encounter Visit Diagnoses Diagnosis Other acute embolism veins Acute venous embolism and thrombosis of other specified veins Benign essential hypertension Essential hypertension, benign Deep transverse arrest Deep transverse arrest and persistent occipitoposterior position during labor and delivery, unspecified as to episode of care documented in this encounter
--- OUTSIDE RECORDS SUMMARY | 2024-03-03 19:40 | XMS_ITS | Encounter Summary ---
Author Organization [facility] Healthcare Address [address] [place] [address] Care Team Providers Care Pharmacy Assistant Name Role Phone Daja Kern MD Primary Care Provider [phone] Encounter Details Date Type Department Care Team (Late st Contact Info) Description 06/27/2010 12:01 AM CDT - 07/23/2010 11:06 AM CDT Hospital Encounter [facility] Encounter for other physical therapy; Low back pain Social History Tobacco Use Types Packs/Day Years Used Date Smoking Tobacco: Never Assessed Comments Unknown Sex and Gender Information Value Date Recorded Sex Assigned at Not on file Legal Sex Female 6:59 AM VOLUNTEER SPECIALIST Gender Identity Not on file Sexual Orientation Not on file documented as of this encounter Plan of Treatment Not on file documented as of this encounter Visit Diagnoses Diagnosis Encounter for other physical therapy Low back pain Lumbago documented in this encounter Care Teams Pharmacy Assistant Relationship Specialty Start Date End Date Daja Kern MD [address] [place] [address] PCP - General 07/02/08 11/17/11 documented as of this encounter
--- OUTSIDE RECORDS SUMMARY | 2024-03-03 19:40 | XMS_ITS | Encounter Summary ---
Author Organization [facility] Healthcare Address [address] [place] [address] Care Team Providers Care Curtain Fitter Name Role Phone Unavailable Primary Care Provider Unavailabl e Encounter Details Date Type Department Care Team (Late st Contact Info) Description 12/18/2006 7:43 PM CDT - 12/18/2006 8:53 PM CDT Hospital En[place] [address] [place] [id number] Social History Tobacco Use Types Packs/Day Years Used Date Smoking Tobacco: Never Assessed Comments Unknown Sex and Gender Information Value Date Recorded Sex Assigned at Not on file Legal Sex Female 6:59 AM TAKER AWAY Gender Identity Not on file Sexual Orientation Not on file documented as of this encounter Plan of Treatment Not on file documented as of this encounter Visit Diagnoses Not on filedocumented in this encounter
--- OUTSIDE RECORDS SUMMARY | 2024-03-03 19:40 | XMS_ITS | Encounter Summary ---
Author Organization [facility] Healthcare Address [address] [place] [address] Care Team Providers Care Stone Setter Apprentice Name Role Phone Daja Kern MD Primary Care Provider [phone] Encounter Details Date Type Department Care Team (Late st Contact Info) Description 04/20/2009 8:58 PM CRAYON SAWYER - 04/20/2009 11:59 PM CRAYON SAWYER Hospital Encounter [facility] CLINCONV Social History Tobacco Use Types Packs/Day Years Used Date Smoking Tobacco: Never Assessed Comments Unknown Sex and Gender Information Value Date Recorded Sex Assigned at Not on file Legal Sex Female 6:59 AM CRAYON SAWYER Gender Identity Not on file Sexual Orientation Not on file documented as of this encounter Plan of Treatment Not on file documented as of this encounter Visit Diagnoses Not on filedocumented in this encounter Care Teams Stone Setter Apprentice Relationship Specialty Start Date End Date Daja Kern MD [address] [place], [place] [id number] PCP - General 07/02/08 11/17/11 documented as of this encounter
--- OUTSIDE RECORDS SUMMARY | 2024-03-03 19:40 | XMS_ITS | Encounter Summary ---
Author Organization [facility] Healthcare Address [address] [place] [address] Care Team Providers Care Silicator Name Role Phone Unavailable Primary Care Provider Unavailabl e Encounter Details Date Type Department Care Team (Late st Contact Info) Description 04/23/2008 3:10 PM TIME STUDY ENGINEER - 04/23/2008 11:59 PM TIME STUDY ENGINEER Hospital Encounter [facility] CLINCONV Social History Tobacco Use Types Packs/Day Years Used Date Smoking Tobacco: Never Assessed Comments Unknown Sex and Gender Information Value Date Recorded Sex Assigned at Not on file Legal Sex Female 6:59 AM TIME STUDY ENGINEER Gender Identity Not on file Sexual Orientation Not on file documented as of this encounter Plan of Treatment Not on file documented as of this encounter Visit Diagnoses Not on filedocumented in this encounter
--- OUTSIDE RECORDS SUMMARY | 2024-03-03 19:40 | XMS_ITS | Encounter Summary ---
Author Organization [facility] Healthcare Address [address] [place] [address] Care Team Providers Care Electrolysis Engineer Name Role Phone Unavailable Primary Care Provider Unavailabl e Encounter Details Date Type Department Care Team (Late st Contact Info) Description 08/11/2006 5:09 PM CDT - 08/11/2006 11:59 PM CDT Hospital Encounter [facility] CLINCON[facility] Social History Tobacco Use Types Packs/Day Years Used Date Smoking Tobacco: Never Assessed Comments Unknown Sex and Gender Information Value Date Recorded Sex Assigned at Not on file Legal Sex Female 6:59 AM POLICE SERGEANT PRECINCT Gender Identity Not on file Sexual Orientation Not on file documented as of this encounter Plan of Treatment Not on file documented as of this encounter Visit Diagnoses Not on filedocumented in this encounter
--- OUTSIDE RECORDS SUMMARY | 2024-03-03 19:40 | XMS_ITS | Encounter Summary ---
Author Organization [facility] Healthcare Address [address] [place] [address] Care Team Providers Care History Faculty Member Name Role Phone Daja Kern MD Primary Care Provider [phone] Encounter Details Date Type Department Care Team (Late st Contact Info) Description 06/24/2009 7:25 AM CDT - 06/24/2009 9:35 AM CDT Hospital Encounter [facility] CLIN[facility] Timoteo Link MD [address] [place] [address] [place] [address] [id number] Pain in joint, pelvic region and thigh; Essential hypertension; Hypothyroidism; Esophageal reflux Social History Tobacco Use Types Packs/Day Years Used Date Smoking Tobacco: Never Assessed Comments Unknown Sex and Gender Information Value Date Recorded Sex Assigned at Not on file Legal Sex Female 6:59 AM FLY RAIL OPERATOR Gender Identity Not on file Sexual Orientation Not on file documented as of this encounter Plan of Treatment Not on file documented as of this encounter Visit Diagnoses Diagnosis Pain in joint, pelvic region and thigh Essential hypertension Unspecified essential hypertension Hypothyroidism Unspecified hypothyroidism Esophageal reflux documented in this encounter Care Teams History Faculty Member Relationship Specialty Start Date End Date Daja Kern MD [address] [place] [address] PCP - General 07/02/08 11/17/11 documented as of this encounter
--- OUTSIDE RECORDS SUMMARY | 2024-03-03 19:40 | XMS_ITS | Encounter Summary ---
Author Organization [facility] Healthcare Address [address] [place] [address] Care Team Providers Care Manager Academic Name Role Phone Daja Kern MD Primary Care Provider [phone] Encounter Details Date Type Department Care Team (Late st Contact Info) Description 08/21/2009 11:43 AM CDT - 08/21/2009 11:59 PM CDT Hospital Encounter [facility] [address] [address] Screening for other and unspecified respiratory condition; History of recurrent pneumonia Social History Tobacco Use Types Packs/Day Years Used Date Smoking Tobacco: Never Assessed Comments Unknown Sex and Gender Information Value Date Recorded Sex Assigned at Not on file Legal Sex Female 6:59 AM DATABASE ADMINISTRATION ASSOCIATE Gender Identity Not on file Sexual Orientation Not on file documented as of this encounter Plan of Treatment Not on file documented as of this encounter Visit Diagnoses Diagnosis Screening for other and unspecified respiratory condition History of recurrent pneumonia Personal history of pneumonia (recurrent) documented in this encounter Care Teams Manager Academic Relationship Specialty Start Date End Date Daja Kern MD [address] [place] [address] PCP - General 07/02/08 11/17/11 documented as of this encounter
--- OUTSIDE RECORDS SUMMARY | 2024-03-03 19:40 | XMS_ITS | Encounter Summary ---
Author Organization [facility] Healthcare Address [address] [place] [address] Care Team Providers Care Corsetier Name Role Phone Daja Kern MD Primary Care Provider [phone] Encounter Details Date Type Department Care Team (Late st Contact Info) Description 10/09/2008 10:03 AM CDT - 10/09/2008 11:59 PM CDT Hospital Encounter [facility] Gilberto Breen MD [address] [address] Bipolar affective disorder (HCC); Hypothyroidism Social History Tobacco Use Types Packs/Day Years Used Date Smoking Tobacco: Never Assessed Comments Unknown Sex and Gender Information Value Date Recorded Sex Assigned at Not on file Legal Sex Female 6:59 AM WOUND CARE COORDINATOR Gender Identity Not on file Sexual Orientation Not on file documented as of this encounter Plan of Treatment Not on file documented as of this encounter Visit Diagnoses Diagnosis Bipolar affective disorder (HCC) Bipolar disorder, unspecified Hypothyroidism Unspecified hypothyroidism documented in this encounter Care Teams Corsetier Relationship Specialty Start Date End Date Daja Kern MD [address] [place], [place] [id number] PCP - General 07/02/08 11/17/11 documented as of this encounter
--- OUTSIDE RECORDS SUMMARY | 2024-03-03 19:40 | XMS_ITS | Encounter Summary ---
Author Organization [facility] Healthcare Address [address] [place] [address] Care Team Providers Care Work Counselor Name Role Phone Daja Kern MD Primary Care Provider [phone] Encounter Details Date Type Department Care Team (Late st Contact Info) Description 08/25/2008 12:01 AM CDT - 08/25/2008 11:59 PM CDT Hospital Encounter [facility] [address] [address] Chest pain; Palpitations Social History Tobacco Use Types Packs/Day Years Used Date Smoking Tobacco: Never Assessed Comments Unknown Sex and Gender Information Value Date Recorded Sex Assigned at Not on file Legal Sex Female 6:59 AM MACHINE MAINTENANCE SUPERVISOR Gender Identity Not on file Sexual Orientation Not on file documented as of this encounter Plan of Treatment Not on file documented as of this encounter Visit Diagnoses Diagnosis Chest pain Unspecified chest pain Palpitations documented in this encounter Care Teams Work Counselor Relationship Specialty Start Date End Date Daja Kern MD [address] [place] [address] PCP - General 07/02/08 11/17/11 documented as of this encounter
--- OUTSIDE RECORDS SUMMARY | 2024-03-03 19:40 | XMS_ITS | Encounter Summary ---
Author Organization [facility] Healthcare Address [address] [place] [address] Care Team Providers Care Lace Winder Name Role Phone Daja Kern MD Primary Care Provider [phone] Encounter Details Date Type Department Care Team (Latest Contact Info) Description 09/25/2008 12:01 AM CDT - 09/25/2008 11:59 PM CDT Hospital Encounter [facility] [address] [address] Nonspecific (abnormal) findings on radiological and other examination of other intrathoracic organs Social History Tobacco Use Types Packs/Day Years Used Date Smoking Tobacco: Never Assessed Comments Unknown Sex and Gender Information Value Date Recorded Sex Assigned at Not on file Legal Sex Female 6:59 AM AIR CONDITIONING SUPERVISOR Gender Identity Not on file Sexual Orientation Not on file documented as of this encounter Plan of Treatment Not on file documented as of this encounter Visit Diagnoses Diagnosis Nonspecific (abnormal) findings on radiological and other examination of other intrathoracic organs documented in this encounter Care Teams Lace Winder Relationship Specialty Start Date End Date Daja Kern MD [address] [place] [address] PCP - General 07/02/08 11/17/11 documented as of this encounter
--- OUTSIDE RECORDS SUMMARY | 2024-03-03 19:40 | XMS_ITS | Encounter Summary ---
Author Organization [facility] Healthcare Address [address] [place] [address] Care Team Providers Care Social Security Benefits Interviewer Name Role Phone Unavailable Primary Care Provider Unavailabl e Encounter Details Date Type Department Care Team (Late st Contact Info) Description 06/19/2008 12:01 AM CDT - 06/19/2008 11:59 PM CDT Hospital Encounter [facility] [address] [facility] [address] [place] [address] Abnormal weight gain; Other dyspnea and respiratory abnormality; Other malaise and fatigue; Obstructive sleep apnea; Periodic limb movement disorder Social History Tobacco Use Types Packs/Day Years Used Date Smoking Tobacco: Never Assessed Comments Unknown Sex and Gender Information Value Date Recorded Sex Assigned at Not on file Legal Sex Female 6:59 AM SENIOR CYBER INTELLIGENCE ANALYST Gender Identity Not on file Sexual Orientation Not on file documented as of this encounter Plan of Treatment Not on file documented as of this encounter Visit Diagnoses Diagnosis Abnormal weight gain Other dyspnea and respiratory abnormality Other malaise and fatigue Obstructive sleep apnea Obstructive sleep apnea (adult) (pediatric) Periodic limb movement disorder documented in this encounter
--- OUTSIDE RECORDS SUMMARY | 2024-03-03 19:40 | XMS_ITS | Encounter Summary ---
Author Organization [facility] Healthcare Address [address] [place] [address] Care Team Providers Care Machine Feeder Name Role Phone Daja Kern MD Primary Care Provider [phone] Encounter Details Date Type Department Care Team (Late st Contact Info) Description 05/31/2010 12:01 AM CDT - 05/31/2010 11:59 PM CDT Hospital Encounter [facility] Social History Tobacco Use Types Packs/Day Years Used Date Smoking Tobacco: Never Assessed Comments Unknown Sex and Gender Information Value Date Recorded Sex Assigned at Not on file Legal Sex Female 6:59 AM GUN STOCK MAKER Gender Identity Not on file Sexual Orientation Not on file documented as of this encounter Plan of Treatment Not on file documented as of this encounter Visit Diagnoses Not on filedocumented in this encounter Care Teams Machine Feeder Relationship Specialty Start Date End Date Daja Kern MD [address] [place], [place] [id number] PCP - General 07/02/08 11/17/11 documented as of this encounter
--- OUTSIDE RECORDS SUMMARY | 2024-03-03 19:40 | XMS_ITS | Encounter Summary ---
Author Organization [facility] Healthcare Address [address] [place] [address] Care Team Providers Care Yarn Sorter Name Role Phone Daja Kern MD Primary Care Provider [phone] Encounter Details Date Type Department Care Team (Late st Contact Info) Description 09/04/2009 11:56 AM CDT - 09/04/2009 11:59 PM CDT Hospital Encounter [facility]IN[facility] Social History Tobacco Use Types Packs/Day Years Used Date Smoking Tobacco: Never Assessed Comments Unknown Sex and Gender Information Value Date Recorded Sex Assigned at Not on file Legal Sex Female 6:59 AM SUGAR CANE PLANTER MACHINE OPERATOR Gender Identity Not on file Sexual Orientation Not on file documented as of this encounter Plan of Treatment Not on file documented as of this encounter Visit Diagnoses Not on filedocumented in this encounter Care Teams Yarn Sorter Relationship Specialty Start Date End Date Daja Kern MD [address] [place], [place] [id number] PCP - General 07/02/08 11/17/11 documented as of this encounter
--- OUTSIDE RECORDS SUMMARY | 2024-03-03 19:40 | XMS_ITS | Encounter Summary ---
Author Organization [facility] Healthcare Address [address] [place] [address] Care Team Providers Care License Clerk Name Role Phone Unavailable Primary Care Provider Unavailabl e Encounter Details Date Type Department Care Team (Late st Contact Info) Description 05/01/2006 12:28 AM EPIC WILLOW SPECIALIST - 05/01/2006 11:59 PM EPIC WILLOW SPECIALIST Hospital Encounter [facility]INCON[facility] Social History Tobacco Use Types Packs/Day Years Used Date Smoking Tobacco: Never Assessed Comments Unknown Sex and Gender Information Value Date Recorded Sex Assigned at Not on file Legal Sex Female 6:59 AM EPIC WILLOW SPECIALIST Gender Identity Not on file Sexual Orientation Not on file documented as of this encounter Plan of Treatment Not on file documented as of this encounter Visit Diagnoses Not on filedocumented in this encounter
--- OUTSIDE RECORDS SUMMARY | 2024-03-03 19:40 | XMS_ITS | Encounter Summary ---
Author Organization [facility] Healthcare Address [address] [place] [address] Care Team Providers Care Plate Put In Worker Name Role Phone Daja Kern MD Primary Care Provider [phone] Encounter Details Date Type Department Care Team (Late st Contact Info) Description 09/28/2009 10:58 AM CDT - 09/28/2009 2:37 PM CDT Hospital Encounter [facility] Erich Larsen MD [address] [facility] [address] [place] [address] [place] [address] [address] Major depressive disorder, single episode Social History Tobacco Use Types Packs/Day Years Used Date Smoking Tobacco: Never Assessed Comments Unknown Sex and Gender Information Value Date Recorded Sex Assigned at Not on file Legal Sex Female 6:59 AM ADZING AND BORING MACHINE OPERATOR Gender Identity Not on file Sexual Orientation Not on file documented as of this encounter Plan of Treatment Not on file documented as of this encounter Visit Diagnoses Diagnosis Major depressive disorder, single episode Major depressive disorder, single episode, unspecified documented in this encounter Care Teams Plate Put In Worker Relationship Specialty Start Date End Date Daja Kern MD [address] [place], [place] [id number] PCP - General 07/02/08 11/17/11 documented as of this encounter
--- OUTSIDE RECORDS SUMMARY | 2024-03-03 19:40 | XMS_ITS | Encounter Summary ---
Author Organization [facility] Healthcare Address [address] [place] [address] Care Team Providers Care Outside Sales Associate Name Role Phone Unavailable Primary Care Provider Unavailabl e Encounter Details Date Type Department Care Team (Late st Contact Info) Description 12/19/2007 10:15 AM CDT - 12/19/2007 2:15 PM CDT Hospital Encounter [facility] Jadiel Gan MD [address] [facility] [address] [address] [place] [address] [place] [address] [facility] [address] [place], [place] [id number] Social History Tobacco Use Types Packs/Day Years Used Date Smoking Tobacco: Never Assessed Comments Unknown Sex and Gender Information Value Date Recorded Sex Assigned at Not on file Legal Sex Female 6:59 AM FIELD APPLICATION ENGINEER Gender Identity Not on file Sexual Orientation Not on file documented as of this encounter Plan of Treatment Not on file documented as of this encounter Visit Diagnoses Not on filedocumented in this encounter
--- OUTSIDE RECORDS SUMMARY | 2024-03-03 19:40 | XMS_ITS | Encounter Summary ---
Author Organization [facility] Healthcare Address [address] [place] [address] Care Team Providers Care Collar Band Creaser Name Role Phone Daja Kern MD Primary Care Provider [phone] Encounter Details Date Type Department Care Team (Late st Contact Info) Description 06/10/2010 9:41 AM CDT - 06/26/2010 11:59 PM CDT Hospital Encounter [facility] Encounter for other physical therapy; Low back pain Social History Tobacco Use Types Packs/Day Years Used Date Smoking Tobacco: Never Assessed Comments Unknown Sex and Gender Information Value Date Recorded Sex Assigned at Not on file Legal Sex Female 6:59 AM MANAGER CULTURE Gender Identity Not on file Sexual Orientation Not on file documented as of this encounter Plan of Treatment Not on file documented as of this encounter Visit Diagnoses Diagnosis Encounter for other physical therapy Low back pain Lumbago documented in this encounter Care Teams Collar Band Creaser Relationship Specialty Start Date End Date Daja Kern MD [address] [place] [address] PCP - General 07/02/08 11/17/11 documented as of this encounter
--- OUTSIDE RECORDS SUMMARY | 2024-03-03 19:40 | XMS_ITS | Encounter Summary ---
Author Organization [facility] Healthcare Address [address] [place] [address] Care Team Providers Care Merchant Miller Name Role Phone Unavailable Primary Care Provider Unavailabl e Encounter Details Date Type Department Care Team (Late st Contact Info) Description 02/07/2007 2:17 PM SALESPERSON SURGICAL APPLIANCES - 02/07/2007 6:55 PM SALESPERSON SURGICAL APPLIANCES Hospital [place] [address] [facility] [address] [place] [address] [place] [address] [facility] [address] [place] [address] Social History Tobacco Use Types Packs/Day Years Used Date Smoking Tobacco: Never Assessed Comments Unknown Sex and Gender Information Value Date Recorded Sex Assigned at Not on file Legal Sex Female 6:59 AM SALESPERSON SURGICAL APPLIANCES Gender Identity Not on file Sexual Orientation Not on file documented as of this encounter Plan of Treatment Not on file documented as of this encounter Visit Diagnoses Not on filedocumented in this encounter
--- OUTSIDE RECORDS SUMMARY | 2024-03-03 19:40 | XMS_ITS | Encounter Summary ---
Author Organization [facility] Healthcare Address [address] [place] [address] Care Team Providers Care Ict Business Analyst Name Role Phone Unavailable Primary Care Provider Unavailabl e Encounter Details Date Type Department Care Team (Late st Contact Info) Description 12/25/2007 6:27 AM CDT - 12/25/2007 11:59 PM CDT Hospital Encounter [facility]INCON[facility] Social History Tobacco Use Types Packs/Day Years Used Date Smoking Tobacco: Never Assessed Comments Unknown Sex and Gender Information Value Date Recorded Sex Assigned at Not on file Legal Sex Female 6:59 AM RAILROAD BRAKEMAN Gender Identity Not on file Sexual Orientation Not on file documented as of this encounter Plan of Treatment Not on file documented as of this encounter Visit Diagnoses Not on filedocumented in this encounter
--- OUTSIDE RECORDS SUMMARY | 2024-03-03 19:40 | XMS_ITS | Encounter Summary ---
Author Organization [facility] Healthcare Address [address] [place] [address] Care Team Providers Care Category Planner Name Role Phone Daja Kern MD Primary Care Provider [phone] Encounter Details Date Type Department Care Team (Late st Contact Info) Description 06/09/2010 10:03 AM CDT - 06/09/2010 11:59 PM CDT Hospital Encounter [facility]INCON[facility] Kaleigh Shepard MD [address] [place] [address] Encounter for long-term (current) use of other medications Social History Tobacco Use Types Packs/Day Years Used Date Smoking Tobacco: Never Assessed Comments Unknown Sex and Gender Information Value Date Recorded Sex Assigned at Not on file Legal Sex Female 6:59 AM INTERNATIONAL BROADCAST MUSIC LIBRARIAN Gender Identity Not on file Sexual Orientation Not on file documented as of this encounter Plan of Treatment Not on file documented as of this encounter Visit Diagnoses Diagnosis Encounter for long-term (current) use of other medications documented in this encounter Care Teams Category Planner Relationship Specialty Start Date End Date Daja Kern MD [address] [place] [address] PCP - General 07/02/08 11/17/11 documented as of this encounter
--- OUTSIDE RECORDS SUMMARY | 2024-03-03 19:40 | XMS_ITS | Encounter Summary ---
Author Organization [facility] Healthcare Address [address] [place] [address] Care Team Providers Care Manager Architecture Name Role Phone Daja Kern MD Primary Care Provider [phone] Encounter Details Date Type Department Care Team (Latest Contact Info) Description 08/07/2009 3:30 AM CDT - 08/13/2009 4:15 PM CDT Hospital Encounter [facility] CLINCONKee Hughes, Burak Jerome MD [address] [place] [address] Pneumonia due to infectious organism; Body mass index 40 and over, adult; Hyposmolality and/or hyponatremia; Asthma with exacerbation; Pneumonia due to other gram-negative bacteria (HCC); Pneumonia due to Streptococcus pneumoniae (CMS/HCC) (HCC); Methicillin resistant Staphylococcus aureus pneumonia (HCC); Morbid obesity (HCC); Hypothyroidism; Other and unspecified hyperlipidemia; Bipolar affective disorder (HCC); Anxiety state; Other abnormal glucose; 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 Social History Tobacco Use Types Packs/Day Years Used Date Smoking Tobacco: Never Assessed Comments Unknown Sex and Gender Information Value Date Recorded Sex Assigned at Not on file Legal Sex Female 6:59 AM PRIVATE SECURITY GUARD Gender Identity Not on file Sexual Orientation Not on file documented as of this encounter Plan of Treatment Not on file documented as of this encounter Visit Diagnoses Diagnosis Pneumonia due to infectious organism Body mass index 40 and over, adult Hyposmolality and/or hyponatremia Asthma with exacerbation Unspecified asthma, with exacerbation Pneumonia due to other gram-negative bacteria (HCC) Pneumonia due to other gram-negative bacteria Pneumonia due to Streptococcus pneumoniae (CMS/HCC) (HCC) Pneumonia due to unspecified Streptococcus Methicillin resistant Staphylococcus aureus pneumonia (HCC) Methicillin resistant pneumonia due to Staphylococcus aureus Morbid obesity (HCC) Morbid obesity Hypothyroidism Unspecified hypothyroidism Other and unspecified hyperlipidemia Bipolar affective disorder (HCC) Bipolar disorder, unspecified Anxiety state Anxiety state, unspecified Other abnormal glucose 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
--- OUTSIDE RECORDS SUMMARY | 2024-03-03 19:40 | XMS_ITS | Encounter Summary ---
Author Organization [facility] Healthcare Address [address] [place] [address] Care Team Providers Care Constitutional Law Professor Name Role Phone Daja Kern MD Primary Care Provider [phone] Encounter Details Date Type Department Care Team (Late st Contact Info) Description 01/13/2010 12:01 AM OPEN HEARTH LABORER - 01/13/2010 11:59 PM OPEN HEARTH LABORER Hospital Encounter [facility] [address] [address] Low back pain; Asthma Social History Tobacco Use Types Packs/Day Years Used Date Smoking Tobacco: Never Assessed Comments Unknown Sex and Gender Information Value Date Recorded Sex Assigned at Not on file Legal Sex Female 6:59 AM OPEN HEARTH LABORER Gender Identity Not on file Sexual Orientation Not on file documented as of this encounter Plan of Treatment Not on file documented as of this encounter Visit Diagnoses Diagnosis Low back pain Lumbago Asthma Unspecified asthma documented in this encounter Care Teams Constitutional Law Professor Relationship Specialty Start Date End Date Daja Kern MD [address] [place] [address] PCP - General 07/02/08 11/17/11 documented as of this encounter
--- OUTSIDE RECORDS SUMMARY | 2024-03-03 19:40 | XMS_ITS | Encounter Summary ---
Author Organization [facility] Healthcare Address [address] [place] [address] Care Team Providers Care Studio Set Up Worker Name Role Phone Daja Kern MD Primary Care Provider [phone] Encounter Details Date Type Department Care Team (Late st Contact Info) Description 02/09/2009 6:15 PM FORM MAKER PLASTER - 02/09/2009 9:00 PM FORM MAKER PLASTER Hospital Encounter [facility] CLINCONV Jadiel Gan MD [address] [facility] [address] [place] [address] [place] [address] [facility] [address] [place], [place] [id number] Other dyspnea and respiratory abnormality Social History Tobacco Use Types Packs/Day Years Used Date Smoking Tobacco: Never Assessed Comments Unknown Sex and Gender Information Value Date Recorded Sex Assigned at Not on file Legal Sex Female 6:59 AM FORM MAKER PLASTER Gender Identity Not on file Sexual Orientation Not on file documented as of this encounter Plan of Treatment Not on file documented as of this encounter Visit Diagnoses Diagnosis Other dyspnea and respiratory abnormality documented in this encounter Care Teams Studio Set Up Worker Relationship Specialty Start Date End Date Daja Kern MD [address] [place] [address] PCP - General 07/02/08 11/17/11 documented as of this encounter
--- OUTSIDE RECORDS SUMMARY | 2024-03-03 19:40 | XMS_ITS | Encounter Summary ---
Author Organization [facility] Healthcare Address [address] [place] [address] Care Team Providers Care Flour Worker Name Role Phone Daja Kern MD Primary Care Provider [phone] Encounter Details Date Type Department Care Team (Late st Contact Info) Description 12/22/2008 5:11 PM CDT - 12/22/2008 11:59 PM CDT Hospital Encounter [facility]INCON[facility] Social History Tobacco Use Types Packs/Day Years Used Date Smoking Tobacco: Never Assessed Comments Unknown Sex and Gender Information Value Date Recorded Sex Assigned at Not on file Legal Sex Female 6:59 AM TERRAZZO TILE MAKER Gender Identity Not on file Sexual Orientation Not on file documented as of this encounter Plan of Treatment Not on file documented as of this encounter Visit Diagnoses Not on filedocumented in this encounter Care Teams Flour Worker Relationship Specialty Start Date End Date Daja Kern MD [address] [place], [place] [id number] PCP - General 07/02/08 11/17/11 documented as of this encounter
--- OUTSIDE RECORDS SUMMARY | 2024-03-03 19:40 | XMS_ITS | Encounter Summary ---
Author Organization [facility] Care Team Providers Care Manager Continuous Improvement Name Role Phone Daja Kern MD Primary Care Provider [phone] Encounter Details Date Type Department Care Team (Late st Contact Info) Description 12/23/2008 - 02/26/2009 11:59 PM GREASE PRESS HELPER Hospital Encounter [facility] CLINCONV Social History Tobacco Use Types Packs/Day Years Used Date Smoking Tobacco: Never Assessed Comments Unknown Sex and Gender Information Value Date Recorded Sex Assigned at Not on file Legal Sex Female 6:59 AM GREASE PRESS HELPER Gender Identity Not on file Sexual Orientation Not on file documented as of this encounter Plan of Treatment Not on file documented as of this encounter Visit Diagnoses Not on filedocumented in this encounter Care Teams Manager Continuous Improvement Relationship Specialty Start Date End Date Daja Kern MD [address] [place] [address] PCP - General 07/02/08 11/17/11 documented as of this encounter
--- OUTSIDE RECORDS SUMMARY | 2024-03-03 19:40 | XMS_ITS | Encounter Summary ---
Author Organization [facility] Healthcare Address [address] [place] [address] Care Team Providers Care Waxed Bag Machine Operator Name Role Phone Daja Kern MD Primary Care Provider [phone] Encounter Details Date Type Department Care Team (Late st Contact Info) Description 08/15/2009 5:34 AM CDT - 08/15/2009 7:38 AM CDT Hospital Encounter [place] [address] [address] Cough; Pneumonia due to infectious organism; Other specified chronic obstructive airways disease; Essential hypertension; Hypothyroidism; Mixed hyperlipidemia; Anxiety state Social History Tobacco Use Types Packs/Day Years Used Date Smoking Tobacco: Never Assessed Comments Unknown Sex and Gender Information Value Date Recorded Sex Assigned at Not on file Legal Sex Female 6:59 AM HYDRAMATIC MECHANIC Gender Identity Not on file Sexual Orientation Not on file documented as of this encounter Plan of Treatment Not on file documented as of this encounter Visit Diagnoses Diagnosis Cough Pneumonia due to infectious organism Other specified chronic obstructive airways disease Essential hypertension Unspecified essential hypertension Hypothyroidism Unspecified hypothyroidism Mixed hyperlipidemia Anxiety state Anxiety state, unspecified documented in this encounter Care Teams Waxed Bag Machine Operator Relationship Specialty Start Date End Date Daja Kern MD [address] [place] [address] PCP - General 07/02/08 11/17/11 documented as of this encounter
--- OUTSIDE RECORDS SUMMARY | 2024-03-03 19:40 | XMS_ITS | Encounter Summary ---
Author Organization [facility] Healthcare Address [address] [place] [address] Care Team Providers Care Boiler Plant Operator Name Role Phone Unavailable Primary Care Provider Unavailabl e Encounter Details Date Type Department Care Team (Late st Contact Info) Description 01/09/2007 10:20 AM MOTOR BRAKEMAN - 01/09/2007 1:55 PM MOTOR BRAKEMAN Hospital Encounter [place] [address] [place] [id number] Social History Tobacco Use Types Packs/Day Years Used Date Smoking Tobacco: Never Assessed Comments Unknown Sex and Gender Information Value Date Recorded Sex Assigned at Not on file Legal Sex Female 6:59 AM MOTOR BRAKEMAN Gender Identity Not on file Sexual Orientation Not on file documented as of this encounter Plan of Treatment Not on file documented as of this encounter Visit Diagnoses Not on filedocumented in this encounter
--- OUTSIDE RECORDS SUMMARY | 2024-03-03 19:40 | XMS_ITS | Encounter Summary ---
Author Organization [facility] Healthcare Address [address] [place] [address] Care Team Providers Care Plastics Fabricator Name Role Phone Unavailable Primary Care Provider Unavailabl e Encounter Details Date Type Department Care Team (Late st Contact Info) Description 03/13/2008 4:02 PM BROOM MAKER - 03/13/2008 8:40 PM BROOM MAKER Hospital Encounter [facility] [place] [address] [id number] Bipolar affective disorder (HCC) Social History Tobacco Use Types Packs/Day Years Used Date Smoking Tobacco: Never Assessed Comments Unknown Sex and Gender Information Value Date Recorded Sex Assigned at Not on file Legal Sex Female 6:59 AM BROOM MAKER Gender Identity Not on file Sexual Orientation Not on file documented as of this encounter Plan of Treatment Not on file documented as of this encounter Visit Diagnoses Diagnosis Bipolar affective disorder (HCC) Bipolar disorder, unspecified documented in this encounter
--- OUTSIDE RECORDS SUMMARY | 2024-03-03 19:40 | XMS_ITS | Encounter Summary ---
Author Organization [facility] Healthcare Address [address] [place] [address] Care Team Providers Care Scale Attendant Name Role Phone Daja Kern MD Primary Care Provider [phone] Encounter Details Date Type Department Care Team (Latest Contact Info) Description 08/27/2009 1:58 PM CDT - 08/27/2009 11:59 PM CDT Hospital Encounter [facility]IN[facility] Pure hypercholesterolemia Social History Tobacco Use Types Packs/Day Years Used Date Smoking Tobacco: Never Assessed Comments Unknown Sex and Gender Information Value Date Recorded Sex Assigned at Not on file Legal Sex Female 6:59 AM FULL STACK PHP DEVELOPER Gender Identity Not on file Sexual Orientation Not on file documented as of this encounter Plan of Treatment Not on file documented as of this encounter Visit Diagnoses Diagnosis Pure hypercholesterolemia documented in this encounter Care Teams Scale Attendant Relationship Specialty Start Date End Date Daja Kern MD [address] [place], [place] [id number] PCP - General 07/02/08 11/17/11 documented as of this encounter
--- OUTSIDE RECORDS SUMMARY | 2024-03-03 19:40 | XMS_ITS | Encounter Summary ---
Author Organization [facility] Healthcare Address [address] [place] [address] Care Team Providers Care Passenger Service Supervisor Name Role Phone Daja Kern MD Primary Care Provider Encounter Details Date Type Department Care Team (Late st Contact Info) Description 06/28/2010 1:56 PM CDT - 06/28/2010 11:59 PM CDT Hospital Encounter [facility]INCON[facility] Dietary counseling and surveillance; Obesity; Weight loss Social History Tobacco Use Types Packs/Day Years Used Date Smoking Tobacco: Never Assessed Comments Unknown Sex and Gender Information Value Date Recorded Sex Assigned at Not on file Legal Sex Female 6:59 AM EMBROIDERY CUTTER Gender Identity Not on file Sexual Orientation Not on file documented as of this encounter Plan of Treatment Not on file documented as of this encounter Visit Diagnoses Diagnosis Dietary counseling and surveillance Obesity Obesity, unspecified Weight loss Loss of weight documented in this encounter Care Teams Passenger Service Supervisor Relationship Specialty Start Date End Date Daja Kern MD [address] [place] [address] PCP - General 07/02/08 11/17/11 documented as of this encounter
--- OUTSIDE RECORDS SUMMARY | 2024-03-03 19:40 | XMS_ITS | Encounter Summary ---
Author Organization [facility] Healthcare Address [address] [place] [address] Care Team Providers Care Multimedia Technician Name Role Phone Unavailable Primary Care Provider Unavailabl e Encounter Details Date Type Department Care Team (Late st Contact Info) Description 05/21/2008 2:14 PM CDT - 05/21/2008 11:59 PM CDT Hospital Encounter [facility] CLINCON[facility] Social History Tobacco Use Types Packs/Day Years Used Date Smoking Tobacco: Never Assessed Comments Unknown Sex and Gender Information Value Date Recorded Sex Assigned at Not on file Legal Sex Female 6:59 AM DIAMOND GRADER Gender Identity Not on file Sexual Orientation Not on file documented as of this encounter Plan of Treatment Not on file documented as of this encounter Visit Diagnoses Not on filedocumented in this encounter
--- OUTSIDE RECORDS SUMMARY | 2024-03-03 19:40 | XMS_ITS | Encounter Summary ---
Author Organization [facility] Healthcare Address [address] [place] [address] Care Team Providers Care Cloth Weigher Name Role Phone Unavailable Primary Care Provider Unavailabl e Encounter Details Date Type Department Care Team (Late st Contact Info) Description 05/01/2006 7:18 AM HARDWOOD FLOOR LAYER - 05/01/2006 11:59 PM HARDWOOD FLOOR LAYER Hospital Encounter [facility] CLINCONV Social History Tobacco Use Types Packs/Day Years Used Date Smoking Tobacco: Never Assessed Comments Unknown Sex and Gender Information Value Date Recorded Sex Assigned at Not on file Legal Sex Female 6:59 AM HARDWOOD FLOOR LAYER Gender Identity Not on file Sexual Orientation Not on file documented as of this encounter Plan of Treatment Not on file documented as of this encounter Visit Diagnoses Not on filedocumented in this encounter
--- OUTSIDE RECORDS SUMMARY | 2024-03-03 19:40 | XMS_ITS | Encounter Summary ---
Author Organization [facility] Healthcare Address [address] [place] [address] Care Team Providers Care Behavioral Services Tech Name Role Phone Unavailable Primary Care Provider Unavailabl e Encounter Details Date Type Department Care Team (Late st Contact Info) Description 03/21/2007 2:38 PM SCRUB WOMAN - 03/21/2007 10:50 PM SCRUB WOMAN Hospital Encounter [facility] CLINCONV Abi Glover MD [address] [facility] [address] [place] [address] [facility] [address] [place] [address] Social History Tobacco Use Types Packs/Day Years Used Date Smoking Tobacco: Never Assessed Comments Unknown Sex and Gender Information Value Date Recorded Sex Assigned at Not on file Legal Sex Female 6:59 AM SCRUB WOMAN Gender Identity Not on file Sexual Orientation Not on file documented as of this encounter Plan of Treatment Not on file documented as of this encounter Visit Diagnoses Not on filedocumented in this encounter
--- OUTSIDE RECORDS SUMMARY | 2024-03-03 19:40 | XMS_ITS | Encounter Summary ---
Author Organization [facility] Healthcare Address [address] [place] [address] Care Team Providers Care Industrial Gas Service Helper Name Role Phone Unavailable Primary Care Provider Unavailabl e Encounter Details Date Type Department Care Team (Late st Contact Info) Description 04/23/2008 2:52 PM RECORDIST CHIEF - 04/23/2008 11:59 PM RECORDIST CHIEF Hospital Encounter [facility] CLINCONV Social History Tobacco Use Types Packs/Day Years Used Date Smoking Tobacco: Never Assessed Comments Unknown Sex and Gender Information Value Date Recorded Sex Assigned at Not on file Legal Sex Female 6:59 AM RECORDIST CHIEF Gender Identity Not on file Sexual Orientation Not on file documented as of this encounter Plan of Treatment Not on file documented as of this encounter Visit Diagnoses Not on filedocumented in this encounter
--- OUTSIDE RECORDS SUMMARY | 2024-03-03 19:40 | XMS_ITS | Encounter Summary ---
Author Organization [facility] Healthcare Address [address] [place] [address] Care Team Providers Care Director Nursing Service Name Role Phone Unavailable Primary Care Provider Unavailabl e Encounter Details Date Type Department Care Team (Late st Contact Info) Description 01/09/2008 12:01 AM INDEPENDENT LIVING ADVISOR - 01/09/2008 11:59 PM INDEPENDENT LIVING ADVISOR Hospital Encounter [facility] CLINCONV Amish Mcintosh Social History Tobacco Use Types Packs/Day Years Used Date Smoking Tobacco: Never Assessed Comments Unknown Sex and Gender Information Value Date Recorded Sex Assigned at Not on file Legal Sex Female 6:59 AM INDEPENDENT LIVING ADVISOR Gender Identity Not on file Sexual Orientation Not on file documented as of this encounter Plan of Treatment Not on file documented as of this encounter Visit Diagnoses Not on filedocumented in this encounter
--- OUTSIDE RECORDS SUMMARY | 2024-03-03 19:40 | XMS_ITS | Encounter Summary ---
Author Organization [facility] Healthcare Address [address] [place] [address] Care Team Providers Care Information Systems Planner Name Role Phone Daja Kern MD Primary Care Provider [phone] Encounter Details Date Type Department Care Team (Late st Contact Info) Description 01/01/2009 10:53 AM TAMALE MACHINE FEEDER - 01/01/2009 11:59 PM TAMALE MACHINE FEEDER Hospital Encounter [facility] CLINCONV Other depressive disorder Social History Tobacco Use Types Packs/Day Years Used Date Smoking Tobacco: Never Assessed Comments Unknown Sex and Gender Information Value Date Recorded Sex Assigned at Not on file Legal Sex Female 6:59 AM TAMALE MACHINE FEEDER Gender Identity Not on file Sexual Orientation Not on file documented as of this encounter Plan of Treatment Not on file documented as of this encounter Visit Diagnoses Diagnosis Other depressive disorder documented in this encounter Care Teams Information Systems Planner Relationship Specialty Start Date End Date Daja Kern MD [address] [place], [place] [id number] PCP - General 07/02/08 11/17/11 documented as of this encounter
--- OUTSIDE RECORDS SUMMARY | 2024-03-03 19:40 | XMS_ITS | Encounter Summary ---
Author Organization [facility] Healthcare Address [address] [place] [address] Care Team Providers Care Manager Market Intelligence Name Role Phone Unavailable Primary Care Provider Unavailabl e Encounter Details Date Type Department Care Team (Late st Contact Info) Description 09/16/2007 4:07 PM CDT - 09/16/2007 7:03 PM CDT Hospital Encounter [facility] CLINCONV Jadiel Gan MD [address] [place] [address] [place] [address] [facility] [address] [place], [place] [id number] Social History Tobacco Use Types Packs/Day Years Used Date Smoking Tobacco: Never Assessed Comments Unknown Sex and Gender Information Value Date Recorded Sex Assigned at Not on file Legal Sex Female 6:59 AM EVP OF PRODUCTS & CO FOUNDER Gender Identity Not on file Sexual Orientation Not on file documented as of this encounter Plan of Treatment Not on file documented as of this encounter Visit Diagnoses Not on filedocumented in this encounter
--- OUTSIDE RECORDS SUMMARY | 2024-03-03 19:43 | XMS_ITS ---
Author Organization [facility] Address [address] [place] [address] Care Team Providers Care Systems Software Designer Name Role Phone Roderick Alona Primary Care Provider [phone] REASON FOR VISIT Injection Medications Medication SIG (Take, Route, Frequency, Duration) Notes Start Date End Date Status metFORMIN HCl 1000 mg BID Acti ve Benzonatate 100 MG 1 capsule as needed Orally Three times a day for 7 days Unknown Levothyroxine Sodium 50 MCG 1 tablet in the morning on an empty stomach Orally Once a day PCP Unknown Baclofen 20 MG 1 tablet Administer without regards to meals as needed Orally Twice a day PCP Unknown DULoxetine HCl 30 MG 1 capsule every morning Orally Once a day for 60 days 01/09/2024 Active Omeprazole 40 MG 1 capsule 30 minutes before morning meal Orally Once a day PCP Unknown DULoxetine HCl 60 MG 1 capsule every morning Orally Once a day for 60 days compliance packs please Active Benztropine Mesylate 0.5 MG 1 tablet at bedtime Orally Once a day for 60 days compliance packs please Active traZODone HCl 100 MG 1 tablet at bedtime Orally Once a day for 60 days compliance packs please Active Abilify Maintena 400 MG as directed Intramuscular once for 28 days compliance packs please Active Simvastatin 5 MG 2 tablets in the evening Orally Once a day PCP Unknown Triamterene-HCTZ 37.5-25 MG 1 tablet in the morning Orally Once a day PCP Unknown Irbesartan-hydroCHLO ROthiazide 150-12.5 MG 1 tablet Orally Once a day PCP Unknown Social History Sex Assigned At : Social History Observation Description Sex Assigned At Female Vital Signs Weight 277.2 lbs 02/06/2024 Height 62 in 02/06/2024 BMI 50.7 kg/m2 02/06/2024 Blood pressure systolic 130 mm Hg 02/06/20 24 Blood pressure diastolic 88 mm Hg 024 Heart Rate 97 /min 02/06/2024 Oximetry 94 % 02/06/2024 Temperature 98.7 degrees Fahrenheit 02/06/20 24 Respiratory Rate 20 /min 02/06/2024 Encounters Encounter Location Date Provider Diagnosis [facility] [address] [place] [address] 02/06/2024 Alona Vaughn Bipolar 1 disorder F31.9 Assessments Encounter Date Diagnosis (ICD Code) Assessment Notes Treatment Notes Treatment Clinical Notes Section Notes 02/06/2024 Bipolar 1 disorder (ICD-10 - F31.9) Plan Of Treatment Next Appt Details Provider Name:Alona Vaughn, 0 03/06/2024 11:20:00 AM[facility] [address] [facility] [place], [address], Medications Administered Medication Instructions Date of Administration Dosage Notes Abilify Maintena 02/06/2024 400 mg Patient tolerated well Progress Notes * Alona KEMPDOB:1970 ( 53 yo F)Acc No.[id number]:02/06/2024 Progress Note Patient:?Alona KEMP Provider:?LIZZETTE Mac :1970???Age:53 Y???Sex:Female D ate:02/06/2024 Phone: Address:[facility] [address], [facility], [id number] Check In:11:21 AM [employer] Subjective: * Chief Complaints: * ???Injection * Medical History:? * Surgical History:? * Hospitalization/Major Diagno stic Procedure:? * Medications:?TakingmetFORMIN HCl , Notes to Pharmacist: 1000 mg BIDAbilify Maintena 400 MG Prefilled Syringe as directed Intramuscular once , Notes to Pharmacist: compliance packs pleasetraZODone HCl 100 MG Tablet 1 tablet at bedtime Orally Once a day , Notes to Pharmacist: compliance packs pleaseBenztropine Mesylate 0.5 MG Tablet 1 tablet at bedtime Orally Once a day , Notes to Pharmacist: compliance packs pleaseDULoxetine HCl 60 MG Capsule Delayed Release Particles 1 capsule every morning Orally Once a day , Notes to Pharmacist: compliance packs pleaseDULoxetine HCl 30 MG Capsule Delayed Release Particles 1 capsule every morning Orally Once a day Taking metFORMIN HCl , Notes to Pharmacist: 1000 mg BIDTaking Abilify Maintena 400 MG Prefilled Syringe as directed Intramuscular once , Notes to Pharmacist: compliance packs pleaseTaking traZODone HCl 100 MG Tablet 1 tablet at bedtime Orally Once a day , Notes to Pharmacist: compliance packs pleaseTaking Benztropine Mesylate 0.5 MG Tablet 1 tablet at bedtime Orally Once a day , Notes to Pharmacist: compliance packs pleaseTaking DULoxetine HCl 60 MG Capsule Delayed Release Particles 1 capsule every morning Orally Once a day , Notes to Pharmacist: compliance packs pleaseTaking DULoxetine HCl 30 MG Capsule Delayed Release Particles 1 capsule every morning Orally Once a day UnknownBenzonatate 100 MG Capsule 1 capsule as needed Orally Three times a day Baclofen 20 MG Tablet 1 tablet Administer without regards to meals as needed Orally Twice a day , Notes to Pharmacist: ALIALevothyroxine Sodium 50 MCG Tablet 1 tablet in the morning on an empty stomach Orally Once a day , Notes to Pharmacist: PCPIrbesartan-hydroCHLOROthiazide 150-12.5 MG Tablet 1 tablet Orally Once a day , Notes to Pharmacist: PCPTriamterene-HCTZ 37.5-25 MG Tablet 1 tablet in the morning Orally Once a day , Notes to Pharmacist: PCPSimvastatin 5 MG Tablet 2 tablets in the evening Orally Once a day , Notes to Pharmacist: PCPOmeprazole 40 MG Capsule Delayed Release 1 capsule 30 minutes before morning meal Orally Once a day , Notes to Pharmacist: Belkis Benzonatate 100 MG Capsule 1 capsule as needed Orally Three times a day Unknown Baclofen 20 MG Tablet 1 tablet Administer without regards to meals as needed Orally Twice a day , Notes to Pharmacist: PCPSanketnowjohnson Levothyroxine Sodium 50 MCG Tablet 1 tablet in the morning on an empty stomach Orally Once a day , Notes to Pharmacist: PCPUnknown Irbesartan-hydroCHLOROthiazide 150-12.5 MG Tablet 1 tablet Orally Once a day , Notes to Pharmacist: PCPUnknowjohnson Triamterene-HCTZ 37.5-25 MG Tablet 1 tablet in the morning Orally Once a day , Notes to Pharmacist: PCPUnknown Simvastatin 5 MG Tablet 2 tablets in the evening Orally Once a day , Notes to Pharmacist: PCPUnknown Omeprazole 40 MG Capsule Delayed Release 1 capsule 30 minutes before morning meal Orally Once a day , Notes to Pharmacist: PCP Objective: * Vitals:?Initials: kg, Wt:277 .2, Ht: 62, BMI:50.7, BP:130/88, HR:97, Oxygen sat %:94, Temp:98.7, RR:20, LMP: n/a, Pain scale:2. Assessment: * Assessment: 1.?Bipolar 1 disorder - F31. 9??? Plan: * Treatment: * Therapeutic Injections:? Abilify Maintena : 400 mg (Dose No:1) (Route: Intramuscular) given by Betsey Ashford on right deltoid * Procedure Codes:?62078 THER/ PROPH/DIAG INJ, SC/IM * * [employer] Sign off status: Completed true * Provider:?LIZZETTE Mac Date:?01/27 Generated for Ugo jaeger/Bernie/Lyndonitting on:?03/03/2024 07:42 PM [employer]
--- OUTSIDE RECORDS SUMMARY | 2024-03-03 19:43 | XMS_ITS ---
Author Organization [facility] Address [address] [place] [address] Care Team Providers Care Dobby Looms Pegger Name Role Phone Alona Vaughn Primary Care Provider REASON FOR VISIT Injection Medications Medication SIG (Take, Route, Frequency, Duration) Notes Start Date End Date Status Abilify Maintena 400 MG as directed Intramuscular once for 28 days compliance packs please Active Omeprazole 40 MG 1 capsule 30 minutes before morning meal Orally Once a day PCP Unknown Simvastatin 5 MG 2 tablets in the evening Orally Once a day PCP Unknown Triamterene-HCTZ 37.5-25 MG 1 tablet in the morning Orally Once a day PCP Unknown Irbesartan-hydroCHLO ROthiazide 150-12.5 MG 1 tablet Orally Once a day PCP Unknown Levothyroxine Sodium 50 MCG 1 tablet in the morning on an empty stomach Orally Once a day PCP Unknown Baclofen 20 MG 1 tablet Administer without regards to meals as needed Orally Twice a day PCP Unknown Benzonatate 100 MG 1 capsule as needed Orally Three times a day for 7 days Unknown DULoxetine HCl 30 MG 1 capsule every morning Orally Once a day for 60 days 01/09/2024 Active metFORMIN HCl 1000 mg BID Acti ve DULoxetine HCl 60 MG 1 capsule every morning Orally Once a day for 60 days compliance packs please Active Benztropine Mesylate 0.5 MG 1 tablet at bedtime Orally Once a day for 60 days compliance packs please Active traZODone HCl 100 MG 1 tablet at bedtime Orally Once a day for 60 days compliance packs please Active Social History Sex Assigned At : Social History Observation Description Sex Assigned At Female Encounters Encounter Location Date Provider Diagnosis [address] [place] [address] 01/31/2024 Alona Vaughn Plan Of Treatment Next Appt Details Provider Name:Alona Vaughn, 0 03/06/2024 11:20:00 AM[facility] [address] [facility] [place], [address], Progress Notes * Alona KEMPDOB:1970 ( 53 yo F)Acc No.[id number]:01/31/2024 UNLOCKED PROGRESS NOTE Progress Note Patient:?Alona KEMP Provider:?Alona Vaughn, ANP-BC :1970???Age:53 Y???Sex:Female D ate:01/31/2024 Phone: Address:[facility] [address], [facility], [phone] Subjective: * Chief Complaints: * ???1. Injection. * Medical History:? * Medications:?Taking metFORMI N HCl , Notes to Pharmacist: 1000 mg BID, Taking Abilify Maintena 400 MG Prefilled Syringe as directed Intramuscular once , Notes to Pharmacist: compliance packs please, Taking traZODone HCl 100 MG Tablet 1 tablet at bedtime Orally Once a day , Notes to Pharmacist: compliance packs please, Taking Benztropine Mesylate 0.5 MG Tablet 1 tablet at bedtime Orally Once a day , Notes to Pharmacist: compliance packs please, Taking DULoxetine HCl 60 MG Capsule Delayed Release Particles 1 capsule every morning Orally Once a day , Notes to Pharmacist: compliance packs please, Taking DULoxetine HCl 30 MG Capsule Delayed Release Particles 1 capsule every morning Orally Once a day , Unknown Benzonatate 100 MG Capsule 1 capsule as needed Orally Three times a day , Unknown Baclofen 20 MG Tablet 1 tablet Administer without regards to meals as needed Orally Twice a day , Notes to Pharmacist: PCP, Unknown Levothyroxine Sodium 50 MCG Tablet 1 tablet in the morning on an empty stomach Orally Once a day , Notes to Pharmacist: PCP, Unknown Irbesartan-hydroCHLOROthiazide 150-12.5 MG Tablet 1 tablet Orally Once a day , Notes to Pharmacist: PCP, Unknown Triamterene-HCTZ 37.5-25 MG Tablet 1 tablet in the morning Orally Once a day , Notes to Pharmacist: PCP, Unknown Simvastatin 5 MG Tablet 2 tablets in the evening Orally Once a day , Notes to Pharmacist: PCP, Unknown Omeprazole 40 MG Capsule Delayed Release 1 capsule 30 minutes before morning meal Orally Once a day , Notes to Pharmacist: PCP Objective: * Vitals:? Assessment: Plan: * Treatment: * * Electronic signature of Alona Vaughn , [id number] on 03/03/2024 at 07:42 PM [employer]TER Sign off status: Pending * Provider:?TAURUS MacBC Date:?05/2023 Generated for Ugo jaeger/Bernie/Ara on:?03/03/2024 07:42 PM [employer]
--- OUTSIDE RECORDS SUMMARY | 2024-03-03 19:43 | XMS_ITS ---
Author Organization [facility] Address [address] [place] [address] Care Team Providers Care Manufacturing Clerk Name Role Phone Roderick Alona Primary Care Provider [phone] Allergies Allergen (clinical drug ingredient) Drug/Non Drug Allergy documented on EMR Reaction Allergy Type Onset Date Status risperidone risperiDONE violent behavior Drug Allergy Active Substance with sulfonamide structure and antibacterial mechanism of action (substance) Sulfa Antibiotics hives Drug Allergy Active ziprasidone Ziprasidone Muscle Spasms Drug Allergy Active REASON FOR VISIT follow up from hospital Medications Medication SIG (Take, Route, Frequency, Duration) Notes Start Date End Date Status Benzonatate 100 MG 1 capsule as needed Orally Three times a day for 7 days Unknown Baclofen 20 MG 1 tablet Administer without regards to meals as needed Orally Twice a day PCP Unknown Levothyroxine Sodium 50 MCG 1 tablet in the morning on an empty stomach Orally Once a day PCP Unknown Irbesartan-hydroCHLO ROthiazide 150-12.5 MG 1 tablet Orally Once a day PCP Unknown DULoxetine HCl 30 MG 1 capsule every morning Orally Once a day for 60 days 01/09/2024 Active Benztropine Mesylate 0.5 MG 1 tablet at bedtime Orally Once a day for 60 days compliance packs please Active DULoxetine HCl 60 MG 1 capsule every morning Orally Once a day for 60 days compliance packs please Active traZODone HCl 100 MG 1 tablet at bedtime Orally Once a day for 60 days compliance packs please Active metFORMIN HCl 1000 mg BID Acti ve Omeprazole 40 MG 1 capsule 30 minutes before morning meal Orally Once a day PCP Unknown Abilify Maintena 400 MG as directed Intramuscular once for 28 days compliance packs please Active Triamterene-HCTZ 37.5-25 MG 1 tablet in the morning Orally Once a day PCP Unknown Simvastatin 5 MG 2 tablets in the evening Orally Once a day PCP Unknown Social History Sex Assigned At : Social History Observation Description Sex Assigned At Female Section Notes: no ETOH/tobacco/ cannabis/ t ried cocaine in the past , no other street drugs Encounters Encounter Location Date Provider Diagnosis [facility] [address] [place] [address] 01/09/2024 Alona Vaughn Bipolar 1 disorder F31.9 Assessments Encounter Date Diagnosis (ICD Code) Assessment Notes Treatment Notes Treatment Clinical Notes Section Notes 01/09/2024 Bipolar 1 disorder (ICD-10 - F31.9) TC to [facility] in and confirmed duloxetine 90 mg Q AM was sent in compliance packs. Continue: duloxetine 60 mg and 30 mg Q AM Aripiprazole Maintenna 400mg IMQ 30 day next due 01/29/24 trazadone 100mg QHS (sleep) benztropine 0.5 mg QHS (side effects restless legs) stopped hydroxyzine 01/09/2024 Other Encouraged to call for sooner PCP appt--client with reported BP while hospitalized and call [facility] to [facility] current [facility]. Offered [facility] program at [facility]. Discussed her occasional crack cocaine use is causing her mood to become low and unstable AND the general risk to using any street drug. I will go to the [place] program. I really don't do it much and I can stay away from him. Plan Of Treatment Medication Medication Name Sig Start Date Stop Date Notes DULoxetine HCl 30 MG 1 capsule every mor carlos Orally Once a day for 60 days 01/09/2024 hydrOXYzine HCl 25 MG one or two tablet as needed for anxious distress Orally twice a day Benztropine Mesylate 0.5 MG 1 tablet at bedtime Orally Once a day for 60 days compliance packs please DULoxetine HCl 60 MG 1 capsule every mor carlos Orally Once a day for 60 days compliance packs please traZODone HCl 100 MG 1 tablet at bedtime Orally Once a day for 60 days compliance packs please Abilify Maintena 400 MG as directed Intramuscular once for 28 days compliance packs please Treatment Notes Assessment Notes Bipolar 1 disorder TC to [facility] in and confirmed duloxetine 90 mg Q AM was sent in compliance packs. Continue: duloxetine 60 mg and 30 mg Q AM Aripiprazole Maintenna 400mg IMQ 30 day next due 01/29/24 trazadone 100mg QHS (sleep) benztropine 0.5 mg QHS (side effects restless legs) stopped hydroxyzine Other Encouraged to call for sooner PCP appt--client with reported BP while hospitalized and call today [facility] to address current infection. Offered [facility] program at [facility]. Discussed her occasional crack cocaine use is causing her mood to become low and unstable AND the general risk to using any street drug. I will go to the [place] [facility] program. I really don't do it much and I can stay away from him. Next Appt Details Follow Up: 4 Weeks, Reason: Provider Name:Alona Vaughn, 0 03/06/2024 11:20:00 AM, [address], [place], [address], Progress Notes * Alona KEMPDOB:1970 ( 53 yo F)Acc No.[id number]:01/09/2024 Patient:?Alona KEMP Provider:?Alona Vaughn, SEUN-BC :1970???Age:53 Y???Sex:Female D ate:01/09/2024 Phone: Address:[facility] [id number] Check In:09:22 AM CSTCheck O ut:10:05 AM VENDOR MANAGER Subjective: * Chief Complaints: * ???Follow up from hospital * HPI: ???Psych F/U:?Patient presents for psychiatric follow-up visit. Alona was inpatient from 12/25 to 12/31/22 with suicidal ideation. She also had a UTI and had used cocaine the day before her admit. [facility] provider decreased her duloxetine to 90 mg Q AM? during her stay--was using 60 mg? BID in compliance packs prior to this. She was due for her abilify Maiintenna injection on 12/29? and statesTommy gave this while she was there. ?Denies : Depression (10 = most depressed).?Denies : Anxiety (10 = most anxious)?stopped PRN hydroyxzine. States she had palpitations while hospitalized and her BP was high.?.?Denies : Suicidal ideation:.?Denies : Homicidal ideation:.?Denies : Hallucinations.?Changes since last visit?:?Alona had a bladder infection and took Macrobid while in the hospital. And now is having bloody vaginal discharge and see's [facility] for Women's [facility]. Got a new pack of meds yesterday from [facility] is not [facility] what dose of duloxetine is in the packs--i.e. if [facility] received new order from hosp. . She is not been to her PCP since 11/20 but states her BP was high while hospitalizated but does not have FU until February. She feels that the bladder infection is now resolved but that was the cause of the increased depression/suicidality. Now that's its gone, I feel great!. Plans IOP at [facility]. Has intake on 01/11/24 and the program is three days a week in the a.m.?.?Sleep:? No problem. I take the trazadone and I m out - Appropriate sleep.?Appetite?Appropriate appetite T2DM. does comfort eat.?.?Medical concerns or hospitalizations??T2DM, HTN, hyperlipidemia, obesity.?Therapy??Starts IOP on .?.?Depression Screening:?PHQ-9?Little interest or pleasure in doing things?Not at all ?Feeling down, depressed, or hopeless?Not at all ?Trouble falling or staying asleep, or sleeping too much?Not at all ?Feeling tired or having little energy?Nearly every day ?Poor appetite or overeating?Not at all ?Feeling bad about yourself or that you are a failure, or have let yourself or your family down?Not at all ?Trouble concentrating on things, such as reading the newspaper or watching television?Several days ?Moving or speaking so slowly that other people could have noticed; or the opposite, being so fidgety or restless that you have been moving around a lot more than usual?Not at all ?Thoughts that you would be better off or of hurting yourself in some way?Not at all ?Total Score?4 ?Interpretation?Minimal Depression * ROS:?Psych ROS:?Constitutional?Denies,?All systems negative unless indicated otherwise..?Eyes?Reports,?irritation with seasonal allergies.?Ears/Nose/Mouth/Throat?Reports,?seasonal allergies.?Respiratory?Denies.?Allergic/Immunologic?Denies.?Cardiovascular?Denie s,?dizziness, syncope, palpitations..?GI?Denies,?denies nausea, vomiting, abdominal pain or jaundice.??Reports,?dysuria, itching.?Musculoskeletal?Denies,?tics, tremors, abnormal motor movements..?Neurological Denies.?Integumentary?Denies.?Endocrine?Denies.?He matological/Ly mphatic?Denies,?bleeding, excessive bruising.?*PSYCH ROS2:?mood swings?Denies.?Thoughts of self harm?Denies.?Denies?Homicidal thoughts.?Behavior concerns?Denies.?Disruptive behavior?Denies.?sleeping more than usual?Denies.?Denies?Auditory/visual hallucinations.?Denies?Delusions.?Denies?Depressed mood.?Denies?Difficulty sleeping.?Denies?Loss of appetite.?Denies?Suicidal thoughts.? * Medical History:? * Surgical History:?cholecyste ctomy 2006c-section 1994 * Hospitalization/Major Diagno stic Procedure:?most recent for psychiatric care [address] [place] [address] Unit (2-3 days). ateway- Depression 05/2022suicidal ideation 12/20 * Family History:?Father: unkn own, diagnosed with Schizophrenia, unspecified.?Mother: alive, diagnosed with Diabetes mellitus without mention of complication, type II or unspecified type, not stated as uncontrolled, Unspecified essential hypertension.?1 brother(s) - healthy. 1 daughter(s) - healthy. .? Mother as HTN, Diabetes, Depression. Daughter was given up for adoption. Has depression. * Social History:?Primary Social History:?Living Arrangement?Living Arrangement:?Independent Living ?Alcohol Use?Alcohol Use Frequency:?Never ?Illicit Substance Usage?Illicit Substance Usage:?No ?Employment Status?Employment Status:?Unemployed ???no ETOH/tobacco/ cannabis/ tried cocaine in the past , no other street drugs. * Medications:?TakingmetFORMIN HCl , Notes to Pharmacist: 1000 mg BIDhydrOXYzine HCl 25 MG Tablet one or two tablet as needed for anxious distress Orally twice a day Abilify Maintena 400 MG Prefilled Syringe as [...] MG Capsule Delayed Release Particles 1 capsule Orally Twice a day , Notes to Pharmacist: compliance packs pleaseTaking metFORMIN HCl , Notes to Pharmacist: 1000 mg BIDTaking hydrOXYzine HCl 25 MG Tablet one or two tablet as needed for anxious distress Orally twice a day Taking Abilify Maintena 400 MG Prefilled Syringe [...] MG Capsule Delayed Release Particles 1 capsule Orally Twice a day , Notes to Pharmacist: compliance packs pleaseUnknownBenzonatate 100 MG Capsule 1 capsule as needed Orally Three times a day Baclofen 20 MG Tablet 1 tablet Administer without regards to meals as needed Orally Twice a day , Notes to Pharmacist: ALIALevothyroxine Sodium 50 MCG Tablet 1 tablet in the morning on an empty stomach Orally Once a day , Notes to Pharmacist: ALIAIrbesartan- hydroCHLOROthiazide 150-12.5 MG Tablet 1 tablet Orally Once [...] Twice a day , Notes to Pharmacist: ALIAUnknown Levothyroxine Sodium 50 MCG Tablet 1 tablet in the morning on an empty stomach Orally Once a day , Notes to Pharmacist: PCPUnknown Irbesartan-hydroCHLOROthiazide 150-12.5 MG Tablet 1 tablet Orally Once a day , Notes to Pharmacist: PCPUnknown Triamterene-HCTZ 37.5-25 MG Tablet 1 tablet in the morning Orally Once a day , Notes to Pharmacist: PCPUnknown Simvastatin 5 MG Tablet 2 tablets in the evening Orally Once a day , Notes to Pharmacist: ALIAUnknown Omeprazole 40 MG Capsule Delayed Release 1 capsule 30 minutes before morning meal Orally Once a day , Notes to Pharmacist: PCP * Allergies:?Sulfa Antibiotics : hives - Side EffectsrisperiDONE: violent behaviorZiprasidone: Muscle Spasms - Side Effectsno[Allergies Verified] Objective: * Vitals:? * Examination: ???Mental Status Exam: ?SENSORIUM AND COGNITION?Oriented to Person , Oriented to Place , Oriented to Time , Oriented to Situation.?ATTENTION AND CONCENTRATION?No deficits.?APPEARANCE?Phone interview - unable to determine appearance..?ATTITUDE AND BEHAVIOR?, Cooperative.?MEMORY?Grossly intact.?EYE CONTACT?Phone interview..?AFFECT?Broad/Full.?MOOD?Euthymic.?SPEECH QUANTITY?Appropriate.?SPEECH QUALITY?Spontaneous , Fluent , Appropriate volume.?THOUGHT PROCESS?Coherent and goal directed.?THOUGHT CONTENT?, Appropriate - WNL.?LANGUAGE?Appropriate- WNL.?MOTOR ACTIVITY?Phone interview..?SUICIDAL IDEATION?Denies suicidal ideation today,.?HOMICIDAL IDEATION?Denies homicidal ideation.?HALLUCINATIONS?Denies hallucinations.?INSIGHT?Fair.?JUDGMENT?Fair.?FUND OF KNOWLEDGE?Fair.?ABILITY TO PARTICIPATE IN TREATMENT?Moderate.?WILLINGNESS TO PARTICIPATE IN TREATMENT?Low on self efficacy.? Assessment: * Assessment: 1.?Bipolar 1 disorder - F31. 9 (Primary)??? Plan: * Treatment: 2.?Others? Notes: Encouraged to call for sooner PCP appt--client with reported BP while hospitalized and call today [facility] to address current infection. Offered [facility] program at [facility]. Discussed her occasional crack cocaine use is causing her mood to become low and unstable AND the general risk to using any street drug. I will go to the [place] [facility] program. I really don't do it much and I can stay away from him. ?? * Procedure Codes:? * Preventive Medicine:?SSRI Discussed possible side effects: GI upset, headache, decreased libido/anorgasmia, weight gain, signs of serotonin syndrome and risk of activation to suicidality SGA SE- Discussed risks, benefits and side effects. Discussed possible weight gain leading to lipid and glucose changes, involuntary movements, anticholinergic affects and rare CV events, NMS, Seizure. REviewed labs on 08/13/23 [facility]: CBC and CMP normal, normal GFR and liver studies, TSH,normal,. * Follow Up:?4 Weeks * * OR MANAGER Sign off status: Completed true * Provider:?SEUN Mac- Date:?12/28 Generated for Ugo jaeger/Bernie/Ara on:?03/03/2024 07:43 PM VENDOR MANAGER History and Physical Notes * HPI (History of Present Illness) Category Sub-Category Detail Notes Category Not es Depression Screening PHQ-9 Little inte rest or pleasure in doing things: Not at all Feeling down, depressed, or hopeless: No t at all Trouble falling or staying asleep, or sl eeping too much: Not at all Feeling tired or having little energy: N early every day Poor appetite or overeating: Not at all Feeling bad about yourself o r that you are a failure, or have let yourself or your family down: Not at all Trouble concentrating on thi ngs, such as reading the newspaper or watching television: Several days Moving or speaking so slowly that other people could have noticed; or the opposite, being so fidgety or restless that you have been moving around a lot more than usual: Not at all Thoughts that you would be b domingo off or of hurting yourself in some way: Not at all Total Score: 4 Interpretation: Minimal Depression Psych F/U Changes since last visit?: Alona ferreira ad a bladder infection and took Macrobid while in the hospital. And now is having bloody vaginal discharge and see's [facility] for Women's health. Got a new pack of meds yesterday from [facility] is not [facility] what dose of duloxetine is in the packs__i.e. if [facility] received new order from hosp. . She is not been to her PCP since 11/20 but states her BP was high while hospitalizated but does not have FU until February. She feels that the bladder infection is now resolved but that was the cause of the increased depression/suicidality. Now that's its gone, I feel great!. Plans IOP at [facility]. Has intake on 01/11/24 and the program is three days a week in the a.m. Sleep: No problem. I take the trazadone and I m out - Appropriate sleep Appetite Appropriate appetite T2DM. does comfort eat. Depression (10 = most depressed) Anxiety (10 = most anxious) stopped PRN hydroyxzine. States she had palpitations while hospitalized and her BP was high. Suicidal ideation: Homicidal ideation: Hallucinations Medical concerns or hospitalizations? T2 DM, HTN, hyperlipidemia, obesity Therapy? Starts IOP on 01/10. 24. Examination Category Sub-Category Detail Notes Category Not es Mental Status Exam SENSORIUM AND COGNITION Orien arnulfo to Person , Oriented to Place , Oriented to Time , Oriented to Situation ATTENTION AND CONCENTRATION No deficits APPEARANCE Phone interview - un able to determine appearance. ATTITUDE AND BEHAVIOR , Cooperative MEMORY Grossly intact EYE CONTACT Phone interview. AFFECT Broad/Full MOOD Euthymic SPEECH QUANTITY Appropriate SPEECH QUALITY Spontaneous , Fluent , Appropriate volume THOUGHT PROCESS Coherent and goal di rected THOUGHT CONTENT , Appropriate - WNL MOTOR ACTIVITY Phone interview. SUICIDAL IDEATION Denies suicidal idea tion today, HOMICIDAL IDEATION Denies homicidal cintia ation HALLUCINATIONS Denies hallucination s INSIGHT Fair JUDGMENT Fair FUND OF KNOWLEDGE Fair ABILITY TO PARTICIPATE IN TREATMENT Mode rate WILLINGNESS TO PARTICIPATE IN TREATMENT Low on self efficacy LANGUAGE Appropriate- WNL
--- OUTSIDE RECORDS SUMMARY | 2024-03-03 19:43 | XMS_ITS | Patient Health Record ---
Author Organization [facility] Address [address] [place] [address] Care Team Providers Care Exercise Equipment Repair Technician Name Role Phone Alona Vaughn Primary Care Provider [phone] Allergies Allergen (clinical drug ingredient) Drug/Non Drug Allergy documented on EMR Reaction Allergy Type Onset Date Status risperidone risperiDONE violent behavior Drug Allergy Active Substance with sulfonamide structure and antibacterial mechanism of action (substance) Sulfa Antibiotics hives Drug Allergy Active ziprasidone Ziprasidone Muscle Spasms Drug Allergy Active Reason For Referral No Information Medications Medication SIG (Take, Route, Frequency, Duration) Notes Start Date End Date Status Omeprazole 40 MG 1 capsule 30 minutes before morning meal Orally Once a day PCP Unknown Simvastatin 5 MG 2 tablets in the evening Orally Once a day PCP Unknown Triamterene-HCTZ 37.5-25 MG 1 tablet in the morning Orally Once a day PCP Unknown Irbesartan-hydroCHLO ROthiazide 150-12.5 MG 1 tablet Orally Once a day PCP Unknown metFORMIN HCl 1000 mg BID Acti ve [...] for 28 days compliance packs please Active Benzonatate 100 MG 1 capsule as needed [...] a day for 60 days 01/09/2024 Active Social History Tobacco Use: Social History Observation Description Date Details (start date - stop date) Never Smoker NA - NA Sex Assigned At : Social History Observation Description Sex Assigned At Female Dont use, Tobacco Use/Smoking Question Answer Notes Are you a nonsmoker Section Notes: no ETOH/tobacco/ cannabis/ t ried cocaine in the past , no other street drugs no ETOH/tobacco/ cannabis/ t ried cocaine in the past , no other street drugs no ETOH/tobacco/ cannabis/ t ried cocaine in the past , no other street drugs no ETOH/tobacco/ cannabis/ t ried cocaine in the past , no other street drugs no ETOH/tobacco/ cannabis/ t ried cocaine in the past , no other street drugs no ETOH/tobacco/ cannabis/ t ried cocaine in the past , no other street drugs no ETOH/tobacco/ cannabis/ t ried cocaine in the past , no other street drugs no ETOH/tobacco/ cannabis/ t ried cocaine in the past , no other street drugs no ETOH/tobacco/ cannabis/ t ried cocaine in the past , no other street drugs no ETOH/tobacco/ cannabis/ t ried cocaine in the past , no other street drugs no ETOH/tobacco/ cannabis/ t ried cocaine in the past , no other street drugs no ETOH/tobacco/ cannabis/ t ried cocaine in the past , no other street drugs no ETOH/tobacco/ cannabis/ t ried cocaine in the past , no other street drugs no ETOH/tobacco/ cannabis/ t ried cocaine in the past , no other street drugs no ETOH/tobacco/ cannabis/ t ried cocaine in the past , no other street drugs Problems Problem Type SNOMED Code ICD Code Onset Dates Problem Status W/U Status Risk Notes Problem Morbid obesity (disorder) (060038982) Morbid (severe) obesity due to excess calories (E66.01) Active confirmed Problem Bipolar 1 disorder (056033222) Bipolar 1 disorder (F31.9) Active confirmed Vital Signs Heart Rate 97 /min 02/06/2024 Temperature 98.7 degrees Fahrenheit 02/06/2024 Respiratory Rate 20 /min 02/06/2024 Oximetry 94 % 02/06/2024 Blood pressure diastolic 88 mm Hg 02/06/2024 Height 62 in 02/06/2024 Blood pressure systolic 130 mm Hg 02/06/2024 Weight 277.2 lbs 02/06/2024 BMI 50.7 kg/m2 02/06/2024 Encounters Encounter Location Date Provider Diagnosis [facility] [address] [place] [address] 09/05/2023 Alona Milford [address] [place] [address] 03/10/2023 Alona Roderick [address] [place] [address] 05/11/2023 Alona Milford Bipolar 1 disorder F31.9 [facility] [address] [place] [address] 06/13/2023 Alona Milford [facility] [address] [place] [address] 07/25/2023 Alona Roderick Bipolar 1 disorder F31.[address] [place] [address] 11/03/2023 Alona Milford Bipolar 1 disorder F31.[address] [place] [address] 03/15/2023 Alona Milford Bipolar 1 disorder F31.[address] [place] [address] 04/13/2023 Alona Roderick Bipolar 1 disorder F31.[address] [place] [address] 05/11/2023 Alona Roderick Bipolar 1 disorder F31.[address] [place] [address] 06/09/2023 Alona Roderick Bipolar 1 disorder F31.[address] [place] [address] 07/07/2023 Alona Roderick Bipolar 1 disorder F31.[address] [place] [address] 09/08/2023 Alona Roderick Bipolar 1 disorder F31.[address] [place] [address] 10/06/2023 Alona Roderick Bipolar 1 disorder F31.[address] [place] [address] 11/03/2023 Alona Roderick Bipolar 1 disorder F31.[address] [place] [address] 08/04/2023 Alona Milford Bipolar 1 disorder F31.[address] [place] [address] 12/01/2023 Alona Roderick Bipolar 1 disorder F31.[address] [place] [address] 02/06/2024 Alona Roderick Bipolar 1 disorder F31.9 [facility] [address] [address] 07/12/2023 Alona Milford Bipolar 1 disorder F31.9 [facility] [address] [place] [address] 03/14/2023 Alona Roderick Bipolar 1 disorder F31.9 [facility] [address] [place] [address] 05/23/2023 Alona Roderick Bipolar 1 disorder F31.9 [facility] [address] [place] [address] 11/30/2023 Alona Milford Bipolar 1 disorder F31.9 [facility] [address] [place] [address] 01/09/2024 Alona Roderick Bipolar 1 disorder F31.9 [facility] [address] [place] [address] 09/05/2023 Alona Roderick Bipolar 1 disorder F31.9 Assessments Encounter Date Diagnosis (ICD Code) Assessment Notes Treatment Notes Treatment Clinical Notes Section Notes 03/14/2023 Bipolar 1 disorder (ICD-10 - F31.9) 03/15/2023 Bipolar 1 disorder (ICD-10 - F31.9) 04/13/2023 Bipolar 1 disorder (ICD-10 - F31.9) 05/11/2023 Bipolar 1 disorder (ICD-10 - F31.9) 05/11/2023 Bipolar 1 disorder (ICD-10 - F31.9) 05/23/2023 Bipolar 1 disorder (ICD-10 - F31.9) 06/09/2023 Bipolar 1 disorder (ICD-10 - F31.9) 07/07/2023 Bipolar 1 disorder (ICD-10 - F31.9) 07/12/2023 Bipolar 1 disorder (ICD-10 - F31.9) 08/04/2023 Bipolar 1 disorder (ICD-10 - F31.9) 07/25/2023 Bipolar 1 disorder (ICD-10 - F31.9) 09/08/2023 Bipolar 1 disorder (ICD-10 - F31.9) 09/05/2023 Bipolar 1 disorder (ICD-10 - F31.9) Will continue augmentation of aripiprazole 10mg QD in addition to Maintenna 400mg IM for the next 30 days then reassess. Client may have been having mental status changes due to month-long UTI and symptoms of AH cleared within in 2 days of taking the PO aripiprazole 10 mg while inpt at [facility]. Client with urinary symptoms and a yeast injection today. Advised to call provider and ask for an appt so Culture/Exam can be performed. 10/06/2023 Bipolar 1 disorder (ICD-10 - F31.9) 11/03/2023 Bipolar 1 disorder (ICD-10 - F31.9) 11/03/2023 Bipolar 1 disorder (ICD-10 - F31.9) 11/30/2023 Bipolar 1 disorder (ICD-10 - F31.9) 12/01/2023 Bipolar 1 disorder (ICD-10 - F31.9) 01/09/2024 Bipolar 1 disorder (ICD-10 - F31.9) TC to [place] in and confirmed duloxetine 90 mg Q AM was sent in compliance packs. Continue: duloxetine 60 mg and 30 mg Q AM Aripiprazole Maintenna 400mg IMQ 30 day next due 01/29/24 trazadone 100mg QHS (sleep) benztropine 0.5 mg QHS (side effects restless legs) stopped hydroxyzine 02/06/2024 Bipolar 1 disorder (ICD-10 - F31.9) 03/14/2023 Other current medications: abilify maintenna 400 mg IM Q 4 weeks (mood stabilizer) next dosee due NOW duloxetine 60 mg BID (depression) benztropine 0.5 mg QHS (side effects--NMS) hydroxyzine 25 mg BID PRn (anixous distress) trazadone 100mg QHS PRN (sleep aid) Will request screening labs from PCP collected in 02/18. Encouraged her to ask David or one of the RN's at to show her the transportation number on her insurance card. 09/05/2023 Other Declines ROMELIA program 11/30/2023 Other Labs: 08/13/23 through [facility]: CBC and CMP are WNL wiht adequeate GFR > 60, and normal liver indices. A1C on 05/20 was 6.9 and client uses metformin BID. No HX of lipid panel this year but continues on simvastatin . 07/12/2023 Other discussed topamax for over eating behaviors I will think about it, I take a lot of pills. Discussed possible of group therapy to get out of the house its too far to [place] 01/09/2024 Other Encouraged to call for sooner PCP appt--client with reported BP while hospitalized and call today for [facility] provider at [facility] to address current infection. Offered [facility] program at [place]. Discussed her occasional crack cocaine use is causing her mood to become low and unstable AND the general risk to using any street drug. I will go to the [facility] program. I really don't do it much and I can stay away from him. Plan Of Treatment Next Appt Details Provider Name:Alona Vaughn, 0 03/06/2024 11:20:00 AM, [address] [facility] [address] , [place], [address], Insurance Providers Payer Name Payer Address Payer Phone Subscriber Number Group Number Insured Name Patient Relationship to Insured Coverage Start Date Coverage End Date [employer] [address] [place] [address] [id number] Alona Kemp Self - patient is the insured 2 [employer] [address] [place] [address] [id number] Alona Kemp Self - patient is the insured 3 Medications Administered Medication Instructions Date of Administration Dosage Notes Fahad Blandontena 07/11/2022 400 mg Patient tolerated well Fahad Blandontena 08/11/2022 400 mg Pt [place]tha w [place]. Fahad Blandontena 09/08/2022 400 mg Patient tolerated well Abilex Blandontena 10/11/2022 400 mg Pt madai ated injection well. Fahad Maintena 11/11/2022 400 mg Abilex [place] 12/16/2022 400 mg Pt madai ated injection well. Abilex Maintena 01/13/2023 400 mg Pt madai ated injection well. Abilex Maintena 02/10/2023 400 mg Pt madai ated injection well. Abilex Blandontena 03/15/2023 400 mg Pt madai ated injection well. Abilex Blandontena 04/13/2023 400 mg Pt madai ated injection well. Fahad Blandontena 05/11/2023 400 mg Pt madai ated procedure well. Fahad Blandontena 06/09/2023 400 mg Fahad Blandontena 07/07/2023 400 mg Fahad Blandontena 08/04/2023 400 mg Todd, AGUILA , Rachael Fraser 08/04/2023 02:55:16 PM CDT > pt tolerated well. Fahad Blandontena 09/08/2023 400 mg Pt martha w ell. Abilex Maintena 10/06/2023 400 mg Pt martha w ell. Fahad Blandontena 11/03/2023 400 mg Patient tolerated well Fahad Blandontena 12/01/2023 400 mg Pt madai ated well. Abilex Maintena 02/06/2024 400 mg Patient tolerated well Medical (General) History Medical History History ICD Code degenerative joint disease hypertension hyperlipidemia Hypothyroidism asthma developmental delay Surgical History Surgery Date(Month/Year) cholecystectomy 2005 1994 Hospitalization History Reason Date(Month/Year) suicidal ideation 12/20 [place]- Depression 05/2022 [facility] (2-3 days). 04/2022 most recent for psychiatric care 2018
--- OUTSIDE RECORDS SUMMARY | 2024-03-03 19:44 | XMS_ITS | CONTINUITY OF CARE DOCUMENT ---
Author Name ruthruth Address Unknown Organization [facility] Address [address] [place] [address] Phone [phone] Care Team Providers Care Mining Speculator Name Role Phone Kwabena QUICK, Ayush Unavailable ANDREA QUICK, AKI Unavailable [phone] LUIS QUICK, BALTAZAR Unavailable [phone] INSURANCE PROVIDERS Payer name Policy type / Coverage type [place] red democrat [place] [employer] [employer] (2) Medicaid [id number]
== END 2024-02-25 17:00 | disposition home or self-care (01) ==
PROVIDERS: Emergency Provider Nurse Practitioner Family; PCP Internal Medicine
DX: R30.0 Dysuria (principal); E11.9 Type 2 diabetes mellitus without complications; E78.5 Hyperlipidemia, unspecified; I10 Essential (primary) hypertension; E03.9 Hypothyroidism, unspecified; Z87.891 Personal history of nicotine dependence
CPT/HCPCS: 81003; 87086; 99213; G0463

== ENCOUNTER 2025-01-24 13:45 | Emergency (ER) | payer OTHER, SELFPAY ==
--- OUTSIDE RECORDS SUMMARY | 2024-12-12 05:40 | XMS_ITS ---
Author Organization [facility] Address [address] [place] [address] Care Team Providers Care Movie Writer Name Role Phone Alona Vaughn Primary Care Provider REASON FOR VISIT 4 week F/U Medications Medication SIG (Take, Route, Frequency, Duration) Notes Start Date End Date Status Abilify Maintena 400 MG as directed Intramuscular once; Duration: 28 days compliance packs please Active DULoxetine HCl 30 MG 1 capsule every morning Orally Once a day; Duration: 7 days Active lamoTRIgine 100 MG 1 and 1/2 tablet in morning Orally Once a day; Duration: 60 days Active traZODone HCl 100 MG 1 tablet at bedtime Orally Once a day; Duration: 60 days compliance packs please Active DULoxetine HCl 60 MG 1 capsule every morning Orally twice a day; Duration: 60 days compliance packs please Active Triamterene-HCTZ 37.5-25 MG 1 tablet in the morning Orally Once a day PCP Unknown Omeprazole 40 MG 1 capsule 30 minutes before morning meal Orally Once a day PCP Unknown Simvastatin 5 MG 2 tablets in the evening Orally Once a day PCP Unknown Irbesartan-hydroCHLO ROthiazide 150-12.5 MG 1 tablet Orally Once a day PCP Unknown Levothyroxine Sodium 50 MCG 1 tablet in the morning on an empty stomach Orally Once a day PCP Unknown DULoxetine HCl 30 MG 1 capsule in the evening Orally Once a day; Duration: 60 days 06/11/2024 Active metFORMIN HCl 1000 mg BID Acti ve Advair Diskus Active Baclofen 20 MG 1 tablet Administer without regards to meals as needed Orally Twice a day PCP Unknown Benzonatate 100 MG 1 capsule as needed Orally Three times a day; Duration: 7 days Unknown Benztropine Mesylate 0.5 MG 1 tablet at bedtime Orally Once a day; Duration: 60 days compliance packs please Active LORazepam 1 MG 1 tablet Orally Once a day; Duration: 30 days As needed for severe anxiety 11/13/2024 Active Social History Sex Assigned At : Social History Observation Description Sex Assigned At Female Encounters Encounter Location Date Provider Diagnosis [facility] [address] [place] [address] 12/12/2024 Alona Vaughn Plan Of Treatment Next Appt Details Provider Name:Alona Vaughn, 1 04/10/2024 01:40:00 PM, [address], [place], [address], Progress Notes * Alona KEMPDOB:1970 ( 54 yo F)Acc No.[id number]:12/12/2024 UNLOCKED PROGRESS NOTE Patient: Alona JIMÉNEZ Provider: Zulma Vaughn, ANP-CARLOS EDUARDO :1970 A ge:53 Y S ex:Female Date:12/12/2024 Phone: Address:[facility] [id number] Structured Data:Is there a n amada you would prefer we call you? (Nombre que prefiere usar) : No Check In:12:06 PM CREDIT BALANCE SPECIALIST Subjective: * Chief Complaints: * 1 . 4 week F/U. * HPI: P sych F/U: Patient presents for psychiatric follow-up visit. Subjective report: I am worrying about the surgery . ? Changes since last visit?: A my will have a hysterectomy and will have the inital appt to discuss the at [facility]. Her CSM is aware but can't be with her for the appt. She will pay her friend $50 to take her. Feels anxious i know I have to do it but I am scared about it. . Coping skills? petting my cat, calling friends. . Effectiveness of medications: S omewhat effective. Medication Adherence: h as routinely used Maintenna without interuption. Next dose scheduled. . Side effects to medications?: D enies side effects to medications. Sleep: A ppropriate sleep. Appetite A ppropriate appetite. Depression (10 = most depressed) I am scared about the cancer. Anxiety (10 = most anxious) I orazepam is helpful used all the 5 this month. . Anger/Irritability (10 is highest): 0 /10. Suicidal ideation: D enies suicidal ideation. no no I dont want to hurt myself.. Homicidal ideation: D enies homicidal ideation.. Hallucinations D enies hallucinations. Medical concerns or hospitalizations? u terine cancer. Will have hystectomy then may need continued treatment after patholoy report. . Therapy? Nelia Severino PCP at [facility], Stacia Kern but [facility] cares for mutual clients. Requested records in 09/20 but no reply as of 11/21. . * Medical History: * Medications: T aking DULoxetine HCl 30 MG Capsule Delayed Release Particles 1 capsule in the evening Orally Once a day , Taking Advair Diskus , Taking metFORMIN HCl , Notes to Pharmacist: 1000 mg BID, Taking DULoxetine HCl 30 MG Capsule Delayed Release Particles 1 capsule every morning Orally Once a day , Taking Abilify Maintena 400 MG Prefilled Syringe as directed Intramuscular once , Notes to Pharmacist: compliance packs please, Taking traZODone HCl 100 MG Tablet 1 tablet at bedtime Orally Once a day , Notes to Pharmacist: compliance packs please, Taking lamoTRIgine 100 MG Tablet 1 and 1/2 tablet in morning Orally Once a day , Taking DULoxetine HCl 60 MG Capsule Delayed Release Particles 1 capsule every morning Orally twice a day , Notes to Pharmacist: compliance packs please, Taking Benztropine Mesylate 0.5 MG Tablet 1 tablet at bedtime Orally Once a day , Notes to Pharmacist: compliance packs please, Taking LORazepam 1 MG Tablet 1 tablet Orally Once a day As needed for severe anxiety, Unknown Benzonatate 100 MG Capsule 1 capsule [...] , Notes to Pharmacist: PCP Objective: * Vitals: Assessment: Plan: * Treatment: * * Electronic signature of Alona Vaughn , [id number] on 01/24/2025 at 01:49 PM CREDIT BALANCE SPECIALIST Sign off status: Pending * Provider: Zulma jett V Morrison, ANP-BC Date: Generated for Ugo jaeger/Bernie/Ara on: 03/26/2024 01:49 PM CREDIT BALANCE SPECIALIST History and Physical Notes * HPI (History of Present Illness) Category Sub-Category Detail Notes Category Not es Psych F/U Changes since last visit?: Alona mooney ill have a hysterectomy and will have the inital appt to discuss the at [facility]. Her CSM is aware but can't be with her for the appt. She will pay her friend $50 to take her. Feels anxious i know I have to do it but I am scared about it. Effectiveness of medications: Somewhat e ffective Medication Adherence: has routinely used Maintenna without interuption. Next dose scheduled. Side effects to medications?: Denies breann e effects to medications Coping skills? petting my cat, call ing friends. Sleep: Appropriate sleep Appetite Appropriate appetite Depression (10 = most depressed) I am s cared about the cancer Anxiety (10 = most anxious) Iorazepam is helpful used all the 5 this month. Anger/Irritability (10 is highest): 0/10 Suicidal ideation: Denies suicidal idea tion. no no I dont want to hurt myself. Homicidal ideation: Denies homicidal cintia ation. Hallucinations Denies hallucination s Medical concerns or hospitalizations? ut erine cancer. Will have hystectomy then may need continued treatment after patholoy report. Therapy? Jaylin Severino PCP at [facility], [address] Dr. Kern but [facility] [facility] [facility] cares for mutual clients. Requested records in 09/20 but no reply as of 11/21. Subjective report: I am worrying about the surgery
[2025-01-24 13:49] VITALS: BP 144/80; PULSE 89; RESP 16; TEMP 36.6; O2SAT 97
--- OUTSIDE RECORDS SUMMARY | 2025-01-24 13:49 | XMS_ITS | Clinical Summary ---
Author Organization [facility] Address [address] [place] [address] Care Team Providers Care Field Insurance Sales Manager Name Role Phone Jaylin Severino SERVICE LINE COORDINATOR Primary Care Provider Allergies Active Allergy Reactions Criticality Noted Date Comments Risperidone Other (See comments),Hives High 08/09/2017 Violent and agitated. Sulfa (Sulfonamide Antibiotics) Hives High 09/01/2015 Topiramate Other (See comments),Hives High 08/09/2017 Difficulty with speech and word finding. Hydroxyzine Palpitations Low 01/03/2024 Ziprasidone Hcl Hives,Other (See comments) High 08/09/2017 Abnormal mouth movements Medications levothyroxine (SYNTHROID) 50 mcg tabletIndicatio ns:hypothyroidi sm Take 1 tablet (50 mcg total) by mouth product development manager before breakfast 11/12/19 20 Active omeprazole (PriLOSEC) 40 mg capsuleIndicati ons:GERD Take 1 capsule (40 mg total) by mouth every evening 02/07/20 19 Active traZODone (DESYREL) 100 mg tabletIndicatio ns:insomnia associated with depression Take 1.5 tablets (150 mg total) by mouth nightly 09/24/19 20 Active albuterol HFA (PROVENTIL HFA,VENTOLIN HFA,PROAIR HFA) 90 mcg/actuation inhalerIndicati ons:Chronic Obstructive Pulmonary Disease Inhale 2 puffs every 6 (six) hours as needed for wheezing or shortness of breath 02/11/20 22 Active benztropine (COGENTIN) 0.5 mg tabletIndicatio ns:Restless Leg Take 1 tablet (0.5 mg total) by mouth nightly 08/23/[address] (CYMBALTA) 60 mg capsuleIndicati ons:Anxiety with Depression Take 1 capsule (60 mg total) by mouth nightly 10/18/19 23 Active metFORMIN XR (GLUCOPHAGE XR) 500 mg 24 hr tabletIndicatio ns:type 2 diabetes mellitus Take 2 tablets (1,000 mg total) by mouth 2 (two) times a day 03/07/19 24 Active triamterene-hyd roCHLOROthiazid e 37.5-25 mg per tabletIndicatio ns:HTN Take 1 tablet/capsu le by mouth every morning 03/06/19 24 Active irbesartan (AVAPRO) 300 mg tabletIndicatio ns:hypertension Take 1 tablet (300 mg total) by mouth product development manager before breakfast 10/24/19 24 Active OneTouch Verio test strips strip 12/26/19 24 Active OneTouch Delica Plus Lancet 30 gauge misc 12/26/[address] (CYMBALTA) 30 mg capsuleIndicati ons:Anxiety with Depression Take 1 capsule (30 mg total) by mouth product development manager before breakfast 01/01/20 24 Active lamoTRIgine (LaMICtal) 100 mg tabletIndicatio ns:Depression associated with Bipolar Disorder Take 1 tablet (100 mg total) by mouth every morning Active acetaminophen (TYLENOL) 500 mg tabletIndicatio ns:Pain Take 2 tablets (1,000 mg total) by mouth every 6 (six) hours as needed for pain Active simvastatin (ZOCOR) 10 mg tabletIndicatio ns:hyperlipidem ia Take 1 tablet (10 mg total) by mouth nightly 12/10/19 25 Active glipiZIDE XL (GLUCOTROL XL) 5 mg 24 hr tabletIndicatio ns:type 2 diabetes mellitus Take 1 tablet (5 mg total) by mouth product development manager before breakfast 12/30/19 25 Active Januvia 50 mg tabletIndicatio ns:type 2 diabetes mellitus Take 1 tablet (50 mg total) by mouth product development manager before breakfast 12/30/19 25 Active metoprolol XL (TOPROL-XL) 50 mg extended release tabletIndicatio ns:hypertension Take 1 tablet (50 mg total) by mouth product development manager before breakfast 01/04/20 25 Active LORazepam (ATIVAN) 1 mg tabletIndicatio ns:Insomnia,anx iety Take 1 tablet (1 mg total) by mouth nightly Active metoprolol XL (TOPROL-XL) 100 mg 24 hr tablet Take 0.5 tablets (50 mg total) by mouth every morning 10/24/19 24 025 Discontinued loratadine 10 mg capsule Take 1 tablet by mouth every morning 025 Discontinued(Th erapy completed) Active Problems Patient Care Coordination No te Formatting of this note migh t be different from the original. 53yo w/ atypical endometrial hyperplasia with foci suspicious for well- differentiated endometrioid adenocarcinoma 09.25.24: Needs TTE, cardiac clearance prior to surgery Plan 12.18.24 - Review TTE, cardiology visit - Consent RATLH/BSO/SLNB pending above Problem Noted Date Diagnosed Date Endometrial cancer 12/20/2024 Endometrial cancer determined by uterine biopsy 12/18/2024 Abnormal electrocardiogram (ECG) (EKG) Overview (09/25/2024): Patient with a few months of intermittent chest pain which prompted PCP to obtain ECG. Patient reports it was abnormal, but she is not sure of the findings. She has established with a hall worker Stephan Wolfe and planned for TTE 10/2024. 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 - patient reports 7 years of amenorrhea and one episode of vaginal bleeding in January 2024 resolved with IV meds (possibly TXA vs IV estrogen, records not available) - has had history of AUB, with thickened EMS on TVUS and subsequent normal Embx some years ago(records not available) - TVUS 04/15/2024 showed normal sized uterus with 12mm endometrial stripe - endometrial biopsy with no atypia and fragments of endometrial polyp - FSH 1.0, estradiol 38 (elevated) most consistent with premenopause - Hsc ppy and LNG-IUD placement 07/2023, path atypical endometrial hyperplasia with foci suspicious for well-differentiated endometrioid adenocarcinoma - Cards work-up for pre-op stratification: 10/2024 echo w/findings as above (EF 50-55%, Grade I diastolic dysfunction, RA mildly enlarged, otherwise wnl). 12/18: --pt sxs unchanged. No sob, cp at rest. Stable abd discomfort. Light spotting unchanged since IUD 07/2024. --discussed results of echo. Will get stress test next week > cards to then pre- op stratify. Plan: --pt counseled and consented for RA-TL, BSO, SLNB ([place], Assistant Import Manager proc, blood) --fellow to [id number] --ED precautions discussed Assessment & Plan (09/25/2024 1:52 PM CDT): - patient currently undergoing workup for intermittent chest pain and abnormal EKG with TTE scheduled 10/2024 - recommend completion of this workup to inform surgical/anesthesia planning - return to clinic in 8 weeks with results of cardiac workup and to sign surgical consents - patient to reschedule appointment earlier if able to have TTE done sooner, she has clinic # to reschedule Assessment & Plan (05/07/2024 3:00 PM CDT): - reviewed pathology from endometrial biopsy with polyp - reviewed risks and benefits of removal. Risks reviewed included bleeding, infection, injury to surrounding structures including possible uterine perforation possibly requiring laparoscopy (<1% risk). Reviewed anticipated recovery and postoperative pain. - surgical consents signed and prep for case submitted 05/07 Assessment & Plan (03/25/2024 4:39 PM CASH POSTING CLERK): - patient reports 7 years of amenorrhea and one episode of vaginal bleeding in January resolved with IV meds - has had history of AUB, with thickened EMS on TVUS and subsequent normal Embx some years ago - discussed recommendation for return visit with TVUS and possible embx - patient concerned with pain control, plan for 1x toradol 10mg PO for her to coal picker at pharmacy and bring to appt, she will have someone with her to drive her (machine adjuster leader case trim), and ativan PO in clinic if embx completed - RTC 4-6 weeks with TVUS and for possible embx Vulvovaginal candidiasis 03/25/2024 Overview (09/25/2024): - treated in 02/2024 with minimal resolution in symptoms, and then spontaneous resolution - exam 09/25/2024 c/w vulvovaginal candidiasis, scant hyphae on wet prep - ordered for diflucan x 2 to preferred pharmacy - if symptoms don't improve with this treatment, recommend vaginitis panel and yeast culture at next visit for recurrent yeast like infections Assessment & Plan (03/25/2024 4:38 PM CASH POSTING CLERK): - + hyphae and buds on wet prep - diflucan 150mg x2 sent to preferred pharmacy with instructions on repeat dose Cervical cancer screening 03/25/2024 Overview (04/15/2024): 03/25/2024 NILM/HPV neg, next due 02/2029. Morbid obesity 11/18/2011 Overview (06/03/2016): Obesity Hypersomnia 11/18/2011 Overview (06/03/2016): Hypersomnia Obstructive sleep apnea syndrome in adult 2011 Overview (06/03/2016): Obstructive sleep apnea syndrome in adult Resolved Problems Problem Noted Date Diagnosed Date Resolved Date Strain of calf muscle 02/22/20202024 Hay fever 09/08/2011 04/15/2024 Cough 09/08/2011 04/15/2024 Sinusitis 09/08/2011 04/15/2024 Allergic rhinitis due to pollen 09/08/2011 04/15/2024 Chronic infection of sinus 09/08/2011 0 04/15/2024 Encounters Date Type Department Care Team Description 01/15/2025 2:30 PM CASH POSTING CLERK Pre-Admission Testing [facility] for Preoperative Assessment and Planning [facility] [address] [place] [id number] Endometrial cancer determined by uterine biopsy (HCC) 12/18/2024 12:30 PM CDT Office Visit [facility] [address] [place] [phone] Abnormal uterine bleeding due to atypical endometrial hyperplasia (Primary Dx) 12/18/2024 Orders Only [facility] [address] [place] [id number] Deb Talbert MD Endometrial cancer determined by uterine biopsy (HCC) (Primary Dx) 12/09/2024 7:19 AM CDT - 12/09/2024 11:59 PM CDT Hospital Encounter [facility] Emergency, Room R Discharge Disposition: Discharge to home or self care from Last 3 Months Surgical History Surgery Date Site/Laterality Comments SECTION CHOLECYSTECTOMY Medical History Medical History Date Comments Anemia Depression Gastric reflux Hypercholesteremia Hypertension Thyroid disease Arthritis Anxiety 1989 Bipolar disorder 2021 Type 2 diabetes mellitus 2023 Irritable bowel syndrome 2019 Low back pain 2002 Morbid obesity ([facility]) 2001 Sleep apnea 2009 Diabetes mellitus 2023 Substance abuse ([facility]) 1992 Fractures Low back pain Strain of calf muscle 02/22/2020 Chronic infection of sinus 09/08/2011 Cough 09/08/2011 Hay fever 09/08/2011 Allergic rhinitis due to pollen 09/08/2011 Sinusitis 09/08/2011 Family History Medical History Relation Name Comments Mental illness Father Feng Cruz Obesity Father Feng Cruz Anxiety disorder Mother Lyla Jolly Arthritis Mother Lyla Jolly Depression Mother Lyla Jolly Diabetes Mother Lyla Jolly Hypertension Mother Lyla Jolly Obesity Mother Lyla Jolly Anesthesia problems Neg Hx Relation Name Status Comments Father Feng Cruz Mother Lyla Jolly Social History Tobacco Use Types Packs/Day Years Used Date Smoking Tobacco: Never Passive Smoke Exposure: Current Smokeless Tobacco: Never Tobacco Cessation:Counseling Given: Not Answered Alcohol Use Standard Drinks/Week Comments Never 0 (1 standard drink = 0.6 oz pur e alcohol) Hunger Vital Sign Answer Date Recorded Within the past 12 months, y ou worried that your food would run out before you got the money to buy more. Never true 05/08/19 25 Within the past 12 months, t he food you bought just didn't last and you didn't have money to get more. Never true 05/07/2024 AUDIT-C Answer Date Recorded Q1: How often do you have a drink containing alcohol? Never 01/15/2025 Q2: How many drinks containi ng alcohol do you have on a typical day when you are drinking? Patient does not drink Q3: How often do you have si x or more drinks on one occasion? Never 01/15/2025 Personal Safety Answer Date Recorded Have you ever been in or are you currently in a harmful physical or emotional relationship or is someone making you feel afraid or unsafe? Denies 01/15/2025 Comments No Sex and Gender Information Value Date Recorded Sex Assigned at Not on file Legal Sex Female 6:59 AM CASH POSTING CLERK Gender Identity Not on file Sexual Orientation Not on file Obstetrics History Para Term AB IAB SAB Ectopic Multiple Livin g Live Births 1 1 1 0 0 1 Date Outcome GA Total Labor Labor/2nd/3rd Weight Sex Type Anes PTL Vibha A1 A5 Name Clin 2005 Term C-Secti on Last Filed Vital Signs Vital Sign Reading Time Taken Comments Blood Pressure 142/98 01/15/2025 3:58 PM CASH POSTING CLERK Pulse 88 01/15/2025 3:30 PM CASH POSTING CLERK Temperature 36.4 C (97.6 F) 12/18/2024 12:48 PM CDT Respiratory Rate 18 01/15/2025 3:30 PM CASH POSTING CLERK Oxygen Saturation 96% 01/15/2025 3:30 PM CASH POSTING CLERK Inhaled Oxygen Concentration - - Weight 122.8 kg (270 lb 11.6 oz) 01/15/2025 3:17 PM CASH POSTING CLERK Height 157.5 cm (5' 2) 01/15/2025 3:17 PM CASH POSTING CLERK Body Mass Index 49.52 01/15/2025 3:17 PM CASH POSTING CLERK Plan of Treatment Upcoming Encounters Date Type Department Care Team (Latest Contact Info) Description 01/28/2025 2:30 PM CASH POSTING CLERK Hospital Encounter [facility] Operating [address] [place] [phone] Erin Baron MD [address] [place] [address] 01/28/2025 2:30 PM CASH POSTING CLERK Anesthesia Event [facility] Operating [address] [place] [address] Germaine Magallon, ADITYA [address] [facility] [phone] [place], [place] [phone] 01/28/2025 2:30 PM CASH POSTING CLERK - 01/28/2025 5:24 PM CASH POSTING CLERK Surgery [facility] Operating [address] [place] [address] Erin Baron MD [address] [place], [place] [id number] XI HYSTERECTOMY - LAPAROSCOPIC ROBOTIC ASSISTED WITH POSSIBLE PELVIC WASHINGS Scheduled Procedures Name Priority Associated Diagnoses Date/Ti me XI HYSTERECTOMY - LAPAROSCOP IC ROBOTIC ASSISTED Endometrial cancer 01/28/2025 2:30 PM CASH POSTING CLERK XI SALPINGO/OOPHORECTOMY - LAPAROSCOPIC ROBOTIC ASSISTED Endometrial cancer 01/28/2025 2:30 PM CASH POSTING CLERK XI ROBOTIC SENTINEL LYMPH NODE Endometrial cancer 01/28/2025 2:30 PM CASH POSTING CLERK Health Maintenance Due Date Last Done Comments Colon Cancer Screening-Colonoscopy 1970 Depression Screening 1970 Hepatitis C Screening 1972 Hepatitis B Screening 1990 Pneumococcal vaccine <65 (1 of 2 - PCV) 12/16/1991 Zoster Vaccine (1 of 2) 2022 Covid-19 Vaccine (3 - 2024-2 6 season) 2024 02/10/2021, 02/10/2021, 08/05/2020, Additional history exists Influenza Vaccine (#1) 2024 , 12/27/2022, 01/05/2021, Additional history exists Breast Cancer Screening-Mammogram 11/15/2024 11/16/2023, 11/16/2023, 07/29/2020, Additional history exists Cervical Cancer Screening 03/25/2025 03/25/2024, Regular Well Visit/Exam 18-64 03/25/2025 03/25/2024 DTaP/Tdap/Td Vaccine (3 - Td or Tdap) [...] Name Priority Date/Time Associated Diagnosis Comments EGFR Routine 01/15/2025 5:01 PM CASH POSTING CLERK Endometrial cancer determined by uterine biopsy ([facility]) DIFFERENTIAL AUTO Routine 01/15/2025 5:0 1 PM CASH POSTING CLERK Endometrial cancer determined by uterine biopsy ([facility]) CBC WITH AUTO DIFFERENTIAL Routine 01/15/2025 5:01 PM CASH POSTING CLERK Endometrial cancer determined by uterine biopsy ([facility]) BASIC METABOLIC PANEL Routine 01/15/2025 5:01 PM CASH POSTING CLERK Endometrial cancer determined by uterine biopsy ([facility]) TYPE AND SCREEN 14 DAY Routine 01/15/2025 5:01 PM CASH POSTING CLERK Endometrial cancer determined by uterine biopsy ([facility]) POCT HEMOGLOBIN A1C Routine 01/15/2025 3 :50 PM CASH POSTING CLERK PAP AND HIGH RISK HPV, REFLEX TO GENOTYPING Routine 03/25/2024 3:08 PM CASH POSTING CLERK Cervical cancer screening from Last 3 Months or Most Recently Relevant to Health Maintenance Results * TYPE AND SCREEN 14 DAY (01/15/2025 5:01 PM CASH POSTING CLERK) ABO Rh A Positive Dashawn, indirect Negative [facility] Blood 01/15/2025 5:01 PM CASH POSTING CLERK 01/15/2025 5:59 PM CASH POSTING CLERK Narrative [facility] - 01/15/2025 6:48 PM CASH POSTING CLERK Has the patient had Daratumumab or Isatuximab in the past 6 months?->No Is this test being ordered in advance for a procedure?->Yes Expected date of procedure:->01/28/25 Has the patient been transfused in the past 3 months?->No Has the patient been in the past 3 months?->No Riki Louie MD LAB BLOOD BANK TEST ORD ERABLES Final Result Performing Organization Address [facility] Co de Phone Number [facility] [place] [address] * eGFR (01/15/2025 5:01 PM CASH POSTING CLERK) eGFR >90 >=60 mL/min/1. 73 m2 Comment: Interpretive Data Reference Interval Normal >/= 90 mL/min/1.73m2 Mildly decreased* 60 - 89 mL/min/1.73m2 Mildly to moderately decreased 45 - 59 mL/min/1.73m2 Moderately to severely decreased 30 - 44 mL/min/1.73m2 Severely decreased 15 - 29 mL/min/1.73m2 Kidney Failure < 15 mL/min/1.73m2 *Relative to young adult level Estimated glomerular [...] interpretive data was last reviewed 2020. Blood 01/15/2025 5:01 PM CASH POSTING CLERK 01/15/2025 5:53 PM CASH POSTING CLERK Riki Louie MD LAB BLOOD ORDERABLES Fi nal Result Performing Organization Address City/[facility]/ZIP Co de Phone Number [facility] Department [place] [address] * Differential, auto (01/15/2025 5:01 PM CASH POSTING CLERK) Neutrophil abs 5.98 1.50 - 6.50 K/cumm Imm gran abs 0.05 0.00 - 0.10 K/cumm [facility] Lymphocyte abs 1.86 0.80 - 3.30 K/cumm [facility] Monocyte abs 0.56 0.20 - 0.80 K/cumm [facility] Eosinophil abs 0.14 0.00 - 0.50 K[facility]cumm [facility] Basophil abs 0.03 0.00 - 0.10 K/cumm [facility] Neutrophil pct 69.4 % [facility] Comment: Interpretive Data Percent cell count reference ranges are not reported, since discordance with absolute values may lead to misinterpretation of CBC data. Current Interpretive Data was last revised on 2017. Imm gran pct 0.6 % [facility] Comment: Interpretive Data Percent cell count reference ranges are not reported, since discordance with absolute values may lead to misinterpretation of CBC data. Current Interpretive Data was last revised on 2017. Lymphocyte pct 21.6 % [facility] Comment: Interpretive Data Percent cell count reference ranges are not reported, since discordance with absolute values may lead to misinterpretation of CBC data. Current Interpretive Data was last revised on 2017. Monocyte pct 6.5 % [facility] Comment: Interpretive Data Percent cell count reference ranges are not reported, since discordance with absolute values may lead to misinterpretation of CBC data. Current Interpretive Data was last revised on 2017. Eosinophil pct 1.6 % [facility] Comment: Interpretive Data Percent cell count reference ranges are not reported, since discordance with absolute values may lead to misinterpretation of CBC data. Current Interpretive Data was last revised on 2017. Basophil pct 0.3 % [facility] Comment: Interpretive Data Percent cell count reference ranges are not reported, since discordance with absolute values may lead to misinterpretation of CBC data. Current Interpretive Data was last revised on 2017. Blood 01/15/2025 5:01 PM CASH POSTING CLERK 01/15/2025 5:54 PM CASH POSTING CLERK Riki Louie MD LAB BLOOD ORDERABLES Fi nal Result [facility] [place] [address] * CBC with auto differential (01/15/2025 5:01 PM CASH POSTING CLERK) [facility] WBC 8.62 3.80 - 9.90 K/cumm Hgb 13.1 11.9 - 15.5 g/dL [facility] Hct 40.3 35.6 - 45.5 % [facility] Plt 254 150 - 400 K/cumm [facility] MPV 11.8 9.1 - 12.3 fL [facility] RBC 4.57 3.90 - 5.20 M/cumm [facility] MCV 88.2 81.3 - 96.4 fL [facility] MCH 28.7 27.1 - 33.3 pg [facility] MCHC 32.5 32.3 - 35.7 g/dL [facility] RDW CV 13.8 11.1 - 14.9 % [facility] RDW SD 43.9 35.7 - 48.1 fL [facility] NRBC abs 0.00 0.00 - 0.01 K/cumm [facility] Blood 01/15/2025 5:01 PM CASH POSTING CLERK 01/15/2025 5:54 PM CASH POSTING CLERK Riki Louie MD LAB BLOOD ORDERABLES Fi nal Result Performing Organization Address City/[facility]/ZIP Co de Phone Number [facility] Department [place] [address] * (ABNORMAL) Basic metabolic panel (01/15/2025 5:01 PM CASH POSTING CLERK) [facility] Sodium 141 135 - 145 mmol/L Potassium, pl 3.9 3.3 - 4.9 mmol/L [facility] Chloride 101 97 - 110 mmol/L [facility] CO2 31 22 - 32 mmol/L [facility] Anion gap 9 2 - 15 mmol/L [facility] BUN 11 6 - 25 mg/dL [facility] Creatinine 0.59(L) 0.60 - 1.10 mg/dL [facility] Glucose 71 70 - 199 mg/dL [facility] Comment: Interpretive Data Fasting glucose >/= 126 mg/dl is diagnostic for diabetes. Fasting is defined as no caloric intake [...] interpretive data was last revised 2022. Calcium 9.6 8.5 - 10.3 mg/dL [facility] Blood 01/15/2025 5:01 PM CASH POSTING CLERK 01/15/2025 5:53 PM CASH POSTING CLERK Narrative [facility] - 01/15/2025 6:40 PM CASH POSTING CLERK Has the patient fasted?->No Riki Louie MD LAB BLOOD ORDERABLES Fi nal Result [facility] [place] [address] * (ABNORMAL) POCT hemoglobin A1c (01/15/2025 3:50 PM CASH POSTING CLERK) Hgb A1C, POC 6.8(H) 4.0 - 5.6 % Est Average Gluc POC 148 mg/dL [facility] Comment: The ADA recommends reporting an estimated Average Glucose (eAG) with all Hemoglobin A1c results using the equation derived from a study of 507 normal and diabetic adults. Minority populations were underrepresented and children were not included. (Diabetes Care 31:0783-6352, 2008). The eAG is not equivalent to a fasting glucose. Blood 01/15/2025 3:50 PM CASH POSTING CLERK 01/15/2025 3:50 PM CASH POSTING CLERK us Damian Harmon MD PhD POINT OF CARE TEST ORDERABLES Final Result [facility] [place] [address] * Pap and High Risk HPV and Genotyping (Cytology Component) (03/25/2024 3:08 PM CASH POSTING CLERK) Thin prep (Pap test) 03/25/2024 3:08 PM CASH POSTING CLERK 03/25/2024 5:33 PM CASH POSTING CLERK Narrative [facility]OLOGY [facility] - 04/01/2024 12:18 PM CASH POSTING CLERK EPIC results best viewed via link to PDF [facility] Karena Salazar [facility] [place] [address] Note to Patients: This report may contain a detailed description of human tissue sent by a health care provider to the laboratory for pathologic evaluation. The content of this report is essential for diagnosis and may provide important critical findings. This information may be unfamiliar to patients to review without a medical professional present. It is advised that the patient review this report in the presence of a health care provider who can answer questions and explain the details. CYTOPATHOLOGY REPORT FINAL Patient Name: ALONA GARRETT Gender: F : 1970 (Age: 53) Address: [address] [place] [id number] [facility] #: [id number] Service: UNKNOWN Location: Patient Type: [facility] SPECIMEN Taken: 03/25/2024 Received: 03/25/2024 Accessioned: 03/26/2024 Reported: 04/01/2024 Physician(s): Deneen Adamson M.D. FINAL INTERPRETATION SOURCE OF SPECIMEN Liquid based Thin Prep pap with HPV: STATEMENT OF ADEQUACY - Satisfactory for evaluation - Endocervical cells/transformation zone sample absent GENERAL CATEGORIZATION: - Negative for squamous intraepithelial lesion or malignancy Comments (Normal-Negative for High Risk HPV) HPV HR 16- Not detected HPV HR 18-Not detected HPV HR non 16/18- Not detected Interpretive Data Nucleic acid amplification for detection of high-risk Human Papilloma virus (HPV) is performed by the Sudha Yuliana 6800 HPV test. This assay specifically detects HPV- 16 and HPV-18 genotypes. The following HPV genotypes are detected as high-risk HPV: HPV-31, 33, 35, 39, 45, 51, 52, 56, 58, 59, 66, and 68. This assay has been approved by the [place] Food and Drug Administration for detection of HPV in cervical specimens collected by a physician using an endocervical brush/spatula or cervical broom and placed in the ThinPrep Pap Test PreservCyt collection containers. The performance characteristics of this test have been verified by the [facility] Molecular Infectious Disease laboratory. Correlate with reported cytology results, as applicable. Interpretive data last revised 22 lw/04/01/2024 12:18 MIKO Mendez MS(ASCP)RIGO Report Electronically Reviewed and Signed Out By MIKO Mendez MS(ASCP)RIGO 04/01/2024 12:18:53 Cervicovaginal Cytology (Pap Test) Disclaimer: The Pap test is a screening test used to detect cervical cancer and its precursors; it is not a diagnostic procedure. False negative and false positive results do occur. Pap test results should be interpreted in the context of pertinent clinical information and biopsy results as indicated. [facility] Clinical Laboratory Improvement Amendments (CLIA) mandate that cytologic and histologic results be correlated for laboratory software quality assurance engineer & improvement standards. FOR ALL HIGH-GRADE CASES we request submission of follow-up histological material and/or reports that have not been previously provided so that we may fulfill said required standards. Gross Description A. Liquid based Thin Prep pap with HPV: Cervical/vaginal - Screening ThinPrep Clinical Diagnosis and History Last Menstrual Period: unk Menstrual History: Irregular Cycles The patient is a 53 year old female with screening. Report Images and scanned documents, if included only viewable in PDF version The performance characteristics of some immunohistochemical stains, in-situ hybridization and fluorescence in-situ hybridization tests and immunophenotyping by flow cytometry cited in this report (if any) were determined by the Surgical Pathology Department at [facility] as part of an ongoing quality assurance test program manager program and in compliance with federally mandated regulations drawn from the Clinical Laboratory Improvement Act of 1988 (CLIA '88). Some of these tests rely on the use of analyte specific reagents and are subject to specific labeling requirements by the [place] Food and Drug Administration. Such diagnostic tests may only be performed in a facility that is certified by the Department of Health and Human Services as a high complexity laboratory under CLIA '88. The FDA has determined that such clearance or approval is not necessary. This test is used for clinical purposes. It should not be regarded as investigational or for research. Nevertheless, federal rules concerning the medical use of analyte specific reagents require that the following disclaimer be attached to the report: This test was developed and its performance characteristics determined by the Surgical Pathology Department of [facility]. It has not been cleared or approved by the [place]. S. Food and Drug Administration. Deneen Adamson MD LAB CYTOLOGY OR DERABLES Final Result PATHOLOGY [facility] [address] Floor [place], [place] [phone] from Last 3 Months or Most Recently Relevant to Health Maintenance Insurance [facility] Care Teams Field Insurance Sales Manager Relationship Specialty Start Date End Date Jaylin Severino NP PCP - General Nurse Practitioner 08/07/24
--- OUTSIDE RECORDS SUMMARY | 2025-01-24 13:49 | XMS_ITS | Encounter Summary ---
Author Organization [facility] Address [address] [place] [address] Phone Care Team Providers Care Pattern Data Operator Name Role Phone Daja Kern MD Primary Care Provider [phone] Baron Vergara MD Unavailable Jaylin Severino APRN, [facility] Primary Care Provider Encounter Details Date Type Department Care Team (Late st Contact Info) Description 06/29/2023 Transcribe Orders [facility] PULMONOLOGY [address] [facility] [place] [address] Baron Vergara MD [address] [place] [id number] Social History Tobacco Use Types Packs/Day Years Used Date Smoking Tobacco: Never Smokeless Tobacco: Never Alcohol Use Standard Drinks/Week Comments No 0 (1 standard drink = 0.6 oz pur e alcohol) [facility] Utilities Answer Date Recorded In the past 12 months has [employer] electric, gas, oil, or water company threatened to shut off services in your home? Patient declined 05/22/2023 Social Connection and Isolation Panel Answer Date Recorded In a typical week, how many times do you talk on the phone with family, friends, or neighbors? Patient declined 05/22/2023 How often do you get togethe r with friends or relatives? Patient declined 05/22/2023 How often do you attend caodaism or catholic serv ices? Patient declined 05/22/2023 Do you belong to any clubs o r organizations such as caodaism groups, unions, fraternal or athletic groups, or [...] medical care, and heating? Patient declined 05/22/2023 [facility] Occupat ional [facility] - Occupational Stress Questionnaire Answer Date Recorded [...] place to sleep or slept in a chcf (including now)? Patient declined 05/22/2023 Sexually Active [...] 19 01/29/2024 01/29/2024 01/29/2024 10:1 1 AM [employer]ER COVID - 19 06/07/2024 06/07/2024 06/07/2024 10:5 8 AM CDT documented as of this encounter Care Teams Pattern Data Operator Relationship Specialty Start Date End Date Daja Kern MD [address] [place] [address] PCP - General Internal Medicine 03/13/15 12/08/24 Jaylin Severino, COMMUNITY LIAISON OFFICER, MANAGER [employer] [address] [place] [address] PCP - General Advanced Practice Nurse 12/09/24 Baron Vergara MD [address] [place] [address] Consulting Physician Pulmonary Disease 06/26/23 documented as of this encounter
--- OUTSIDE RECORDS SUMMARY | 2025-01-24 13:49 | XMS_ITS | Clinical Summary ---
Author Organization [facility] Address [address] [place] [address] Phone Care Team Providers Care Child Custody Evaluator Name Role Phone Baron Vergara MD Unavailable Jaylin Severino APRN, FOOD COURT TEAM MEMBER Primary Care Provider Allergies Active Allergy Reactions [...] MG Tablet Take 300 mg by mouth every morning. 02/12/20 21 Active omeprazole (PriLOSEC) 40 MG CAPSULE DELAYED RELEASE Take 1 Capsule by mouth daily. 90 Capsule 06/03/19 22 Active metoprolol Succinate (TOPROL-XL) 25 MG TABLET SR 24 HR Take 50 mg by mouth every morning. Active triamterene-hydr ochlorothiazide (DYAZIDE) 37.5-25 MG Capsule Take 1 Capsule by mouth every morning. Active simvastatin (ZOCOR) 10 MG Tablet Take 10 mg by mouth every evening. Active benztropine (COGENTIN) 0.5 MG Tablet Take 0.5 mg by mouth nightly. Active miconazole 2 % Powder Apply on the groin region. 71 g 01/06/20 23 Active Additional Information Patient taking differently: Topical PRN, Apply on the groin region and under breast., Reported on 03/14/2024 ondansetron (ZOFRAN-ODT) 4 MG TABLET DISPERSIBLE Take 1 Tablet by mouth every 6 hours as needed for Nausea - 1st line (for nausea or vomiting). 10 Tablet 01/06/20 23 Active albuterol (PROVENTIL, VENTOLIN) (2.5 MG/3ML) 0.083% Nebulizer SolnIndications: Acute respiratory failure with hypoxia,Asthma exacerbation 3 mL by Nebulization route every [...] as needed for Wheezing or Cough. Active ondansetron (ZOFRAN-ODT) 4 MG TABLET DISPERSIBLE Take 1 Tablet by mouth every 8 hours as needed for Nausea - 1st line. 20 Tablet 12/10/19 25 Active Active Problems Problem Noted Date Diagnosed [...] 08/03/2021 Anxiety 08/03/2021 Type 2 diabetes mellitus, [facility] current use of insulin 08/03/2021 Dehydration [...] exacerbation 05/22/2023 05/22/2023 Asthma exacerbation 04/30/2023 05/02/19 24 Crack cocaine use 04/30/2023 10/03/2023 Morbid obesity 01/02/2023 06/26/2023 HLD (hyperlipidemia) 01/02/2023 024 Acute respiratory failure with hypoxia 02/08/2022 05/02/2023 SBO (small bowel obstruction) 02/20/2021 02/22/2021 Cocaine use 10/03/2018 10/03/2023 HTN (hypertension) Encounters Date Type Department Care Team Description 12/09/2024 7:39 AM CDT - 12/09/2024 11:22 AM CDT Emergency [facility] Emergency [address] [place] [address] Sushil Justin, Diarrhea Discharge Disposition: Discharged to home or Selfcare 12/09/2024 Travel 11/19/2024 1:55 PM CDT - 11/19/2024 11:59 PM CDT Hospital Encounter [facility] [address] [place] [address] Stephan Wolfe MD Discharge Disposition: Discharged to home or Selfcare 11/19/2024 Travel from Last 3 Months Immunizations Immunization Administration Dates Next Due Influenza,Split Virus,Trivalent,Injectable,PF TDAP Vaccine 06/22/2022 Family History Medical History Relation Name Comments Depression Brother Obstructive Sleep Apnea Brother No Known Problems Daughter Diabetes Maternal Uncle Cancer Mother skin Depression Mother Diabetes Mother Hypertension Mother Relation [...] Recorded In the past 12 months has [employer], gas, oil, or water [employer] threatened to shut off services in your home? Patient declined 01/29/2024 Social Connection and Isolation Panel Answer Date Recorded In a typical week, how many times do you talk on the phone with family, friends, or neighbors? Patient declined 01/29/2024 How often do you get togethe r with friends or relatives? Patient declined 01/29/2024 How often do you attend anabaptist or jew serv ices? Patient declined 01/29/2024 Do you belong to any clubs o r organizations such as anabaptist groups, unions, fraternal or athletic groups, or [...] medical care, and heating? Patient declined 01/29/2024 [facility] - Occupational [...] a alf (including now)? Patient declined 05/22/2023 Housing Stability [...] any time in the past 12 m [facility], were you homeless or living in a alf (including now)? Patient declined 01/29/2024 Sexually Active Control Partners Comments Yes None Male Comments No Sex and Gender Information Value Date Recorded Sex Assigned at Female 06/02/2023 1:39 AM CDT Legal Sex Female 11:06 PM CDT Gender Identity Female 06/02/2023 1:39 AM CDT Sexual Orientation Straight 06/02/2023 1: 39 AM CDT Last Filed Vital Signs Vital Sign Reading Time Taken Comments Blood Pressure 130/103 12/09/2024 11:00 AM CDT Pulse 122 12/09/2024 11:00 AM CDT Temperature 36.9 C (98.4 F) 12/09/2024 7:42 AM CDT Respiratory Rate 14 12/09/2024 11:0 0 AM CDT Oxygen Saturation 97% 12/09/2024 11: 00 AM CDT Inhaled Oxygen Concentration - - Weight 124.7 kg (274 lb 14.6 oz) 12/09/2024 7:42 AM CDT Height 157.5 cm (5' 2) 12/09/2024 7:42 AM CDT Body Mass Index 50.28 12/09/2024 7:42 AM CDT Plan of Treatment Health Maintenance Due Date Last Done Comments Diabetes: Eye Exam 1970 Diabetes: Foot Exam 1970 Hepatitis C Virus (HCV) Screening 1970 Hepatitis B Immunization (1 of 3 - 19+ 3-dose series) 12/16/1991 Pneumococcal Immunization (50+ years) (1 of 2 - PCV) 12/16/1991 Pap Smear 1993 Cervical Cancer Screening (CCS) 2002 HPV/Cotest 2002 Cologuard 2017 Immunochemical Fecal Occult Blood 2017 Respiratory Syncytial Virus (RSV) Immunization (Adult) (1 - Risk 50-74 years 1-dose series) 2022 Zoster Immunization (1 of 2) 2022 Diabetes: Hemoglobin A1c 07/29/2024 024, 05/01/2023, 02/13/2022, Additional history exists Influenza Immunization (#1) 10/28/20240 04/2023, 12/27/2022, 01/05/2021, Additional history exists SARS-COV-2 Immunization ( season) 2024 02/10/2021, 08/05/2020 Mammogram 11/15/2024 11/16/2023, 03/2020, 12/29/2018, Additional history exists Diabetes: Nephropathy Screening 12/09/2025 12/09/2024, 06/07/2024, 03/04/2024, Additional history exists Td Immunization Every 10 Years (Adults With 1 Tdap) 06/22/2032 06/22/2022, 08/13/2015 Colonoscopy 03/27/2034 03/27/2024, 02/28, 11/16/2018, Additional history exists Colorectal Cancer Screening 03/27/2034 DTaP/Tdap/Td Immunization Discontinued 06/22/2022, Discussion re Starting/Frequency of Mammograms Discontinued 11/16/2023, 07/29/2020, 12/29/2018, Additional history exists Human Papillomavirus (HPV) Immunization Aged Out No longer eligible based on patient's age to complete this topic Meningococcal Immunization (ACWY) Aged Out No longer eligible based on patient's age to complete this topic Rotavirus Immunization Aged Out No lo nger eligible based on patient's age to complete this topic Procedures Procedure Name Priority Date/Time Associated Diagnosis Comments CT ABDOMEN PELVIS W/ CONTRAST Stat with Interpretation 12/09/2024 9:24 AM CDT GOLD TOP TUBE STAT 12/09/2024 7:52 AM CDT BLUE TOP TUBE STAT 12/09/2024 7:52 AM CDT CBC WITH AUTO DIFFERENTIAL STAT 12/09/2024 7:52 AM CDT EXTRA TUBES STAT 12/09/2024 7:52 AM CDT LIPASE STAT 12/09/2024 7:52 AM CDT COMPLETE BLOOD COUNT (CBC) WITH DIFF STAT 12/09/2024 7:52 AM CDT CMP (COMPREHENSIVE METABOLIC PANEL) STAT 12/09/2024 7:52 AM CDT RHYTHM STRIP 12/09/2024 12:00 AM CDT ADULT TRANS THORACIC ECHO 2D COMPLETE Routine 11/19/2024 2:40 PM CDT ARTHUR (dyspnea on exertion) GI IMAGING - COLONOSCOPY Routine 03/27/2024 8:48 AM DIRECT CUSTOMER SERVICE REPRESENTATIVE HEMOGLOBIN A1C W/ ESTIMATED GLUCOSE STAT 01/29/2024 9:21 AM DIRECT CUSTOMER SERVICE REPRESENTATIVE KIMBERLY DIAG BILATERAL DIGITAL W CAD W CHELSEA Routine 11/16/2023 1:57 PM CDT Breast pain, left from Last 3 Months or Most Recently Relevant to Health Maintenance Results * CT ABDOMEN PELVIS W/ CONTRAST (12/09/2024 9:24 AM CDT) Anatomical Region Laterality Modality Abdomen N/A Computed Tomogra phy 12/09/2024 9:24 AM CDT Impressions 12/09/2024 9:55 AM CDT IMPRESSION: 1. Multiple fluid distended loops of small bowel without a discrete transition point to confirm the presence of an obstruction. Liquid stool throughout the colon. Findings are suggestive of enteritis. 2. Diverticulosis without evidence of diverticulitis. 3. Probable hepatic steatosis. Narrative 12/09/2024 9:55 AM CDT DICTATING PHYSICIAN: Hanna Jean M.D. - [facility] PROCEDURE: CT ABDOMEN PELVIS W/ CONTRAST DATE OF EXAM: 12/09/2024 9:24 AM DEMOGRAPHICS: 53 years, Female INDICATION: Right lower quadrant pain. Nausea and vomiting. COMPARISON: CT 01/29/24 TECHNIQUE: Contiguous axial slices of the abdomen and pelvis were submitted after the IV administration of contrast. Coronal and sagittal reformatted images were provided. DOSE OPTIMIZATION AND RADIATION EXPOSURE: Total DLP (mGy*cm) = 2718. Radiation dose reduction techniques were utilized. FINDINGS: Inferior chest: Lung bases are clear. Normal heart size. No pericardial or pleural effusion. Liver: Probable hepatic steatosis. Scattered hepatic cysts, unchanged Gallbladder and biliary tree: Cholecystectomy. No biliary duct dilation. Pancreas: Normal appearance of the pancreatic parenchyma. No duct dilation. Spleen: Unremarkable. Adrenals: Unremarkable. Kidneys/Ureters: Normal renal size and enhancement. No hydronephrosis. Multiple bilateral nonobstructing renal calculi. Urinary bladder: Unremarkable. Reproductive organs: IUD in place. Unchanged calcified structure between the anterior uterus and urinary bladder. Distal esophagus, Stomach and Small Bowel: Stomach is unremarkable. Duodenum follows normal anatomic course. Multiple fluid distended small bowel loops without a transition point. No significant wall thickening. Colon and Appendix: Descending and sigmoid colon diverticulosis. There is liquid stool throughout the colon. No significant wall thickening or pericolonic fat stranding. Normal appendix. Peritoneum/Mesentery: No free air, ascites, or organized fluid collection. Vasculature: Aorta is normal in caliber with mild aortoiliac atherosclerotic calcification. IVC is unremarkable. Patent splanchnic and hepatic vasculature. Lymphatic system: No lymphadenopathy. Retroperitoneum: Unremarkable. Abdominal/pelvic wall: Unremarkable. Bones: No suspicious osseous lesions. Bilateral L5 pars defects with advanced degenerative change at L5-S1 and grade 1 anterolisthesis. Procedure Note Hanna Jean MD - 12/09/2024 DICTATING PHYSICIAN: [facility]: CT ABDOMEN PELVIS W/ CONTRAST DATE OF EXAM: 12/09/2024 9:24 AM DEMOGRAPHICS: 53 years, Female INDICATION: Right lower quadrant pain. Nausea and vomiting. COMPARISON: CT 01/29/24 TECHNIQUE: Contiguous axial slices of the abdomen and pelvis weresubmitted after the IV administration of contrast. Coronal and sagittalreformatted images were provided. DOSE OPTIMIZATION AND RADIATION EXPOSURE: Total DLP (mGy*cm) = 2718.Radiation dose reduction techniques were utilized. FINDINGS: Inferior chest: Lung bases are clear. Normal heart size. No pericardial orpleural effusion. Liver: Probable hepatic steatosis. Scattered hepatic cysts, unchanged Gallbladder and biliary tree: Cholecystectomy. No biliary duct dilation. Pancreas: Normal appearance of the pancreatic parenchyma. No ductdilation. Spleen: Unremarkable. Adrenals: Unremarkable. Kidneys/Ureters: Normal renal size and enhancement. No hydronephrosis.Multiple bilateral nonobstructing renal calculi. Urinary bladder: Unremarkable. Reproductive organs: IUD in place. Unchanged calcified structure betweenthe anterior uterus and urinary bladder. Distal esophagus, Stomach and Small Bowel: Stomach is unremarkable.Duodenum follows normal anatomic course. Multiple fluid distended smallbowel loops without a transition point. No significant wall thickening. Colon and Appendix: Descending and sigmoid colon diverticulosis. There isliquid stool throughout the colon. No significant wall thickening orpericolonic fat stranding. Normal appendix. Peritoneum/Mesentery: No free air, ascites, or organized fluidcollection. Vasculature: Aorta is normal in caliber with mild aortoiliacatherosclerotic calcification. IVC is unremarkable. Patent splanchnic andhepatic vasculature. Lymphatic system: No lymphadenopathy. Retroperitoneum: Unremarkable. Abdominal/pelvic wall: Unremarkable. Bones: No suspicious osseous lesions. Bilateral L5 pars defects withadvanced degenerative change at L5-S1 and grade 1 anterolisthesis. IMPRESSION: 1. Multiple fluid distended loops of small bowel without a discretetransition point to confirm the presence of an obstruction. Liquid stoolthroughout the colon. Findings are suggestive of enteritis. 2. Diverticulosis without evidence of diverticulitis. 3. Probable hepatic steatosis. us Sushil Justin DO IMG CT ORDERABLES Final Result * Gold Top Tube (12/09/2024 7:52 AM CDT) Blood No Phlebotomy Charged / Unknown 12/09/2024 7:52 AM CDT 12/09/2024 7:56 AM CDT us Sushil Justin DO CHEMISTRY ORDERABLES Fi nal Result [facility] [address] [place] [address] * Blue Top Tube (12/09/2024 7:52 AM CDT) Blood No Phlebotomy Charged / Unknown 12/09/2024 7:52 AM CDT 12/09/2024 7:56 AM CDT us Sushil Zarco Nhan DO HEMATOLOGY ORDERABLES F inal Result [facility] [address] [place] [address] * (ABNORMAL) CBC with Auto Differential (12/09/2024 7:52 AM CDT) WBC 14.97(H) 4.00 - 12.00 10(3)/mcL 12/09/2024 7:59 AM CDT [facility] RBC 5.03 3.80 - 5.30 10(6)/mcL 12/09/2024 7:59 AM CDT [facility] HEMOGLOBIN (HGB) 14.8 12.0 - 15.8 g/dL 12/09/2024 7:59 AM CDT [facility] HEMATOCRIT (HCT) 46.6 36.0 - 47.0 % 12/09/2024 7:59 AM CDT [facility] MCV 92.6 82.0 - 96.0 fL 12/09/2024 7:59 AM CDT [facility] MCH 29.4 26.0 - 34.0 pg 12/09/2024 7:59 AM CDT [facility] MCHC 31.8 31.0 - 36.0 g/dL 12/09/2024 7:59 AM CDT [facility] PLATELET COUNT 337 140 - 440 10(3)/mcL 12/09/2024 7:59 AM CDT [facility] RDW 13.6 11.8 - 15.5 % 12/09/2024 7:59 AM CDT [facility] MPV 11.0 9.7 - 12.4 fL 12/09/2024 7:59 AM CDT [facility] NEUTROPHILS 84.6(H) 47.0 - 73.0 % 12/09/2024 7:59 AM CDT [facility] LYMPHOCYTES 9.2(L) 18.0 - 42.0 % 12/09/2024 7:59 AM CDT [facility] MONOCYTES 4.9 4.0 - 12.0 % 12/09/2024 7:59 AM CDT [facility] EOSINOPHILS 0.7 0.0 - 5.0 % 12/09/2024 7:59 AM CDT [facility] BASOPHILS 0.3 0.0 - 1.0 % 12/09/2024 7:59 AM CDT [facility] IMMATURE GRANULOCYTE 0.3 0.0 - 0.4 % 12/09/2024 7:59 AM CDT [facility] ABSOLUTE NEUTROPHILS 12.65(H) 1.60 - 7.70 10(3)/[facility] 12/09/2024 7:59 AM CDT [facility] ABSOLUTE LYMPHOCYTES 1.38 1.30 - 3.20 10(3)/[facility] 12/09/2024 7:59 AM CDT [facility] ABSOLUTE MONOCYTES 0.74 0.20 - 1.00 10(3)/[facility] 12/09/2024 7:59 AM CDT [facility] ABSOLUTE EOSINOPHIL 0.10 0.00 - 0.40 10(3)/[facility] 12/09/2024 7:59 AM CDT [facility] ABSOLUTE BASOPHILS 0.05 0.00 - 0.10 10(3)/[facility] 12/09/2024 7:59 AM CDT [facility] ABSOLUTE IMMATURE GRANULOCYTE 0.05(H) 0.00 - 0.03 10 (3) [facility]. 12/09/2024 7:59 AM CDT [facility] NRBC PER 100 WBC 0 12/10/19 7:59 AM [facility] Blood Venipuncture / Unknown 12/09/2024 7:52 AM CDT 12/09/2024 7:57 AM CDT us Sushil Justin DO HEMATOLOGY ORDERABLES F inal Result [facility] [address] [place] [address] * Lipase (12/09/2024 7:52 AM CDT) LIPASE 27 8 - 78 U/L 12/09/2024 8:25 AM CDT [facility] Blood Venipuncture / Unknown 12/09/2024 7:52 AM CDT 12/09/2024 7:57 AM CDT us Sushil Justin DO CHEMISTRY ORDERABLES Fi nal Result Performing Organization Address [facility] Co de Phone Number [facility] [address] [place] [address] * (ABNORMAL) CMP (Comprehensive Metabolic Panel) (12/09/2024 7:52 AM CDT) SODIUM 138 136 - 145 mmol/L 12/09/2024 8:25 AM CDT [facility] POTASSIUM 3.9 3.5 - 5.1 mmol/L 12/09/2024 8:25 AM CDT [facility] CHLORIDE 100 98 - 107 mmol/L 12/09/2024 8:25 AM CDT [facility] CO2, VENOUS 24 22 - 30 mmol/L 12/09/2024 8:25 AM CDT [facility] ANION GAP 17.9 <18.0 mmol/L 12/09/2024 8:25 AM CDT [facility] GLUCOSE 186(H) 70 - 99 mg/dL 12/09/2024 8:25 AM CDT [facility] BUN 21(H) 10 - 20 mg/dL 12/09/2024 8:25 AM CDT [facility] CREATININE, BLOOD 1.10(H) 0.60 - 1.00 mg/dL 12/09/2024 8:25 AM CDT [facility] BUN/CREATININE RATIO 19 12 - 20 ratio 12/09/2024 8:25 AM CDT [facility] TOTAL PROTEIN 8.8(H) 6.0 - 8.0 g/dL 12/09/2024 8:25 AM CDT [facility] ALBUMIN 5.0 3.5 - 5.0 g/dL 12/09/2024 8:25 AM CDT [facility] A/G RATIO 1.3 1.0 - 2.2 12/09/2024 8:25 AM T [facility] CALCIUM 11.1(H) 8.7 - 10.5 mg/dL 12/09/2024 8:25 AM CDT [facility] T BILI 0.4 0.2 - 1.2 mg/dL 12/09/2024 8:25 AM T [facility] SGOT (AST) 19 <43 U/L 12/09/2024 8:25 AM [facility] SGPT (ALT) 35 <56 U/L 12/09/2024 8:25 AM [facility] ALKALINE PHOSPHATASE 106 40 - 150 U/L 12/09/2024 8:25 AM [facility] GFR, ESTIMATED >60 >=60 12/09/2024 8:25 AM T [facility] Comment: Creatinine Clearance is the preferred criteria for selecting drug dose adjustments in renally impaired patients. The GFR is provided as additional pertinent clinical information. GFR is reported in mL/min/1.73 sq m. Calculation based on the 2020 Chronic Kidney Disease Epidemiology Collaboration (CKD-EPI) equation refit without adjustment for race. GFR, EST. >60 >=60 025 8:25 AM T [facility] Comment: Creatinine Clearance is the preferred criteria for selecting drug dose adjustments in renally impaired patients. The GFR is provided as additional pertinent clinical information. GFR is reported in mL/min/1.73 sq m. Calculation based on the 2009 Chronic Kidney Disease Epidemiology Collaboration (CKD-EPI). GFR, EST. NONAFRICAN 52(L) >=60 12/09/2024 8:25 AM CDT [facility] Comment: Creatinine Clearance is the preferred criteria for selecting drug dose adjustments in renally impaired patients. The GFR is provided as additional pertinent clinical information. GFR is reported in mL/min/1.73 sq m. Calculation based on the 2009 Chronic Kidney Disease Epidemiology Collaboration (CKD-EPI). Blood Venipuncture / Unknown 12/09/2024 7:52 AM CDT 12/09/2024 7:57 AM CDT us Sushil Justin DO CHEMISTRY ORDERABLES Fi nal Result Performing Organization Address [facility] Co de Phone Number [facility] [address] [place] [address] * RHYTHM STRIP (12/09/2024 12:00 AM CDT) 12/09/2024 us Provider Scan IMG ECG ORDERABLES Final Result Performing Organization Address [facility] Co de Phone Number RESULTING AGENCY * ADULT TRANS THORACIC ECHO 2D COMPLETE (11/19/2024 2:40 PM CDT) AV Peak Grad mmHg 7.73 mmHg RESULTING AGENCY Mean Aortic Valve Gradient (MAVG) 4 mmHg RESULTING AGENCY LV end nathen diam cm 4.8 cm RESULTING AGENCY LV end sys diam cm 3.3 cm RESULTING AGENCY Aortic Root Diam cm 3.1 cm RESULTING AGENCY LA vol index ml/m2 23 ml/m2 RESULTING AGENCY LVOT Peak Bj m/sec 1.08 m/sec RESULTING AGENCY AV Peak Bj m/sec 1.39 m/sec RESULTING AGENCY MV Mean Grad mmHg 1 mmHg RESULTING AGENCY E/A Ratio 0.73 RESULTING AGENCY E/E' 5 RESULTING AGENCY AV Area (VTI) cm2 2.76 cm2 RESULTING AGENCY SEPTUM DIASTOLIC CM 1 cm RESULTING AGENCY PW DIASTOLIC CM 1 cm RESU LTING AGENCY LA VOLUME 51 ml RESULTING AGENCY LV EF(estimated)% 53 RESULTING AGENCY Anatomical Region Laterality Modality CARDIO N/A Ultrasound Narrative 11/19/2024 3:50 PM CDT Transthoracic Echocardiography Report (TTE) Patient name PAINTER ALONA Moncada.O.B. 1970 Patient ID (UPI) [id number] Indications: Dyspnea on exertion. Study Date11/19/2024 Technical quality: Adequate Type of Study: TTE procedure: Adult Trans Thoracic Echo 2D Complete. Priority:RoutineHR: 82 bpmBP: 152/88 mmHg Conclusions Summary The left ventricle is normal in size. Wall thickness is normal. LV function is normal. There are no regional wall motion abnormalities. LV EF of 50-55%. Grade I diastolic dysfunction. Right atrium is mildly enlarged in size. Findings Mitral Valve The mitral valve is normal. No evidence of mitral stenosis. No significant mitral regurgitation. Aortic Valve The aortic valve is trileaflet with normal leaflet excursion. There is no evidence of aortic valve stenosis. There is no significant aortic valve insufficiency. Tricuspid Valve The tricuspid valve is normal. There is no evidence of tricuspid stenosis. There is no significant tricuspid regurgitation. There is no evidence of pulmonary hypertension. Pulmonic Valve The pulmonic valve structure appears normal. There is no evidence of pulmonic stenosis. There is no significant pulmonic valve regurgitation. Left Atrium The left atrium size is normal. Left Ventricle The left ventricle is normal in size. Wall thickness is normal. LV function is normal. There are no regional wall motion abnormalities. LV EF of 50-55%. Grade I diastolic dysfunction. Right Atrium Right atrium is mildly enlarged in size. Right Ventricle Normal right ventricular cavity size and normal systolic function. Pericardial Effusion The pericardium is normal. There is no pericardial effusion visualized. Miscellaneous Aortic root and proximal ascending aorta are normal in size. Atrial septum appears intact. IVC is normal in size and respiratory response. Valves Mitral Valve Peak E-Wave: 0.62 m/s Area (continuity): 3.76 cm^2 Peak A-Wave: 0.85 m/s Mean Velocity: 0.57 m/s Peak Gradient: 1.56 mmHg Mean Gradient: 1 mmHg Deceleration Time: 148 msec Tissue Doppler E' Velocity: 0.08 m/s E/E':5 E/A Ratio: 0.73 E/Lat E': 5 E/Med E':7.3 Aortic Valve Area (continuity): 2.76 cm^2 Mean Velocity: 0.93 m/s Area (VTI):2.76 cm^2 Mean Gradient: 4 mmHg Peak Velocity: 1.39 m/s AV VTI: 25.2 cm Peak Gradient: 7.73 mmHg Tricuspid Valve Peak E-Wave: 0.56 m/s Peak Gradient: 1.26 mmHg Pulmonic Valve Peak Velocity: 1.09 m/s Mean Velocity: 0.74 m/s Peak Gradient: 4.75 mmHg Mean Gradient: 3 mmHg LVOT Peak Velocity: 1.08 m/s Mean Velocity: 0.71 m/s Peak Gradient: 5 mmHg Mean Gradient: 2 mmHg LVOT Diameter: 2.1 cm LVOT VTI: 20.1 cm Stroke Volume: 70 ml Stroke Volume Index: 31.96 ml/m^2 Structures Left Ventricle Diastolic Dimension: 4.8 cm Systolic Dimension: 3.3 cm Septum Diastolic: 1 cm Septum Systolic: 1.4 cm PW Diastolic: 1 cm PW Systolic: 1.4 cm Diastolic Length: 30.1 cm Systolic Length: 18.1 cm EF Calculated: 54.43% CI: 2.61 l/min*m^2 CO: 5.71 l/min RWT: 0.42 LV EDV: 97 ml FS: 31.25 % LV EDV Index: 44 m^2 LV Length: 7.98 cm LV ESV: 44.2 ml LVOT Diameter: 2.1 cm LV ESV Index: 20 m^2 Global Longitudinal Strain:-15.8 Right Ventricle RVOT (PLAX) diameter:3.1 cm Tissue Doppler RV S': 13.4 TAPSE: 2.24 cm Left Atrium LA Systolic Pressure: 8.24 mmHg LA Area: 20.5 cm^2 LA Volume: 51 ml LA Index: 23ml/m^2 Right Atrium RA Area: 17.3 cm^2 Great Vessels Aorta Ascending Aorta: 3.4 cm Aorta Root:3.1 cm Ascending Aorta Index:1.55 cm/m^2 Demographics Age 53 Gender Female Race Height 62.01 in. Weight 275.01 lbs. BMI (BSA) 50.29 kg/m^2 (2.19 m^2) [employer] Adilia Pardo Interpreting Richard Referring Physician Jesus Physician Procedure Note Jesus Ramos MD - 11/19/2024 Transthoracic Echocardiography Report (TTE) Patient name PAINTER ALONA Tsai Micah 1970 Patient ID (UPI) [id number] Indications: Dyspnea on exertion. Study Date11/19/2024 Technical quality: Adequate Type of Study: TTE procedure: Adult Trans Thoracic Echo 2D Complete. Priority:RoutineHR: 82 bpmBP: 152/88 mmHg Conclusions Summary The left ventricle is normal in size. Wall thickness is normal. LV function is normal. There are no regional wall motion abnormalities. LV EF of 50-55%. Grade I diastolic dysfunction. Right atrium is mildly enlarged in size. Findings Mitral Valve The mitral valve is normal. No evidence of mitral stenosis. No significant mitral regurgitation. Aortic Valve The aortic valve is trileaflet with normal leaflet excursion. There is no evidence of aortic valve stenosis. There is no significant aortic valve insufficiency. Tricuspid Valve The tricuspid valve is normal. There is no evidence of tricuspid stenosis. There is no significant tricuspid regurgitation. There is no evidence of pulmonary hypertension. Pulmonic Valve The pulmonic valve structure appears normal. There is no evidence of pulmonic stenosis. There is no significant pulmonic valve regurgitation. Left Atrium The left atrium size is normal. Left Ventricle The left ventricle is normal in size. Wall thickness is normal. LV function is normal. There are no regional wall motion abnormalities. LV EF of 50-55%. Grade I diastolic dysfunction. Right Atrium Right atrium is mildly enlarged in size. Right Ventricle Normal right ventricular cavity size and normal systolic function. Pericardial Effusion The pericardium is normal. There is no pericardial effusion visualized. Miscellaneous Aortic root and proximal ascending aorta are normal in size. Atrial septum appears intact. IVC is normal in size and respiratory response. Valves Mitral Valve Peak E-Wave: 0.62 m/s Area (continuity): 3.76 cm^2 Peak A-Wave: 0.85 m/s Mean Velocity: 0.57 m/s Peak Gradient: 1.56 mmHg Mean Gradient: 1 mmHg Deceleration Time: 148 msec Tissue Doppler E' Velocity: 0.08 m/s E/E':5 E/A Ratio: 0.73 E/Lat E': 5 E/Med E':7.3 Aortic Valve Area (continuity): 2.76 cm^2 Mean Velocity: 0.93 m/s Area (VTI):2.76 cm^2 Mean Gradient: 4 mmHg Peak Velocity: 1.39 m/s AV VTI: 25.2 cm Peak Gradient: 7.73 mmHg Tricuspid Valve Peak E-Wave: 0.56 m/s Peak Gradient: 1.26 mmHg Pulmonic Valve Peak Velocity: 1.09 m/s Mean Velocity: 0.74 m/s Peak Gradient: 4.75 mmHg Mean Gradient: 3 mmHg LVOT Peak Velocity: 1.08 m/s Mean Velocity: 0.71 m/s Peak Gradient: 5 mmHg Mean Gradient: 2 mmHg LVOT Diameter: 2.1 cm LVOT VTI: 20.1 cm Stroke Volume: 70 ml Stroke Volume Index: 31.96 ml/m^2 Structures Left Ventricle Diastolic Dimension: 4.8 cm Systolic Dimension: 3.3 cm Septum Diastolic: 1 cm Septum Systolic: 1.4 cm PW Diastolic: 1 cm PW Systolic: 1.4 cm Diastolic Length: 30.1 cm Systolic Length: 18.1 cm EF Calculated: 54.43% CI: 2.61 l/min*m^2 CO: 5.71 l/min RWT: 0.42 LV EDV: 97 ml FS: 31.25 % LV EDV Index: 44 m^2 LV Length: 7.98 cm LV ESV: 44.2 ml LVOT Diameter: 2.1 cm LV ESV Index: 20 m^2 Global Longitudinal Strain:-15.8 Right Ventricle RVOT (PLAX) diameter:3.1 cm Tissue Doppler RV S': 13.4 TAPSE: 2.24 cm Left Atrium LA Systolic Pressure: 8.24 mmHg LA Area: 20.5 cm^2 LA Volume: 51 ml LA Index: 23ml/m^2 Right Atrium RA Area: 17.3 cm^2 Great Vessels Aorta Ascending Aorta: 3.4 cm Aorta Root:3.1 cm Ascending Aorta Index:1.55 cm/m^2 Demographics Age 53 Gender Female Race Height 62.01 in. Weight 275.01 lbs. BMI (BSA) 50.29 kg/m^2 (2.19 m^2) Honing Machine Operator Production Adilia Adair Ramos Referring Physician Jesus Physician Stephan Wolfe MD [facility] ECHO ORDERABLES Edited Resul t - Final * GI IMAGING - COLONOSCOPY (03/27/2024 8:48 AM DIRECT CUSTOMER SERVICE REPRESENTATIVE) Burt Eastman MD [facility] DIAGNOSTIC ORDERABLES Final Result * (ABNORMAL) Hemoglobin A1C w/ Estimated Glucose (01/29/2024 9:21 AM DIRECT CUSTOMER SERVICE REPRESENTATIVE) HGB-A1C 7.5(H) 4.0 - 6.0 % 01/29/2024 5:21 PM DIRECT CUSTOMER SERVICE REPRESENTATIVE [facility] Est Average Glucose 168.6 mg/dL 01/29/2024 5:21 PM DIRECT CUSTOMER SERVICE REPRESENTATIVE [facility] Blood Venipuncture / Unknown 01/29/2024 9:21 AM DIRECT CUSTOMER SERVICE REPRESENTATIVE 01/29/2024 9:30 AM DIRECT CUSTOMER SERVICE REPRESENTATIVE Narrative [facility] - 01/29/2024 5:21 PM DIRECT CUSTOMER SERVICE REPRESENTATIVE HEMOGLOBIN A1C: DIABETIC PATIENTS: WELL-CONTROLLED: 6.2 - 7.0 INTERMEDIATE WELL-CONTROLLED: 7.0 - 9.0 POORLY-CONTROLLED: >9.0 us Alicia Sweet MD CHEMISTRY ORDERABLES Final Re sult [facility] [address] [place] [address] * KIMBERLY DIAG BILATERAL DIGITAL W CAD [...] to exams dated: 12/29/2018, 07/29/2020, and 08/25/2015 [facility]. BREAST TISSUE:There are scattered areas of fibroglandular [...] signed by: Nael Alvarenga M.D. ll/:11/16/2023 14:35:56 Cook Fry(s): RT Maxine(R)(M), [facility]; SEBASTIAN Bonds, [facility] letter sent: Normal Exam Reading location: [place] [...] copy. Current study was also evaluated with [employer] version 7.2. 2D digital mammographic views, as [...] to exams dated: 12/29/2018, 07/29/2020, and 08/25/2015 [facility]. BREAST TISSUE:There are scattered areas of fibroglandular [...] signed by: Nael Alvarenga M.D. ll/:11/16/2023 14:35:56 Cook Fry(s): RT Maxine(R)(M), [facility]; SEBASTIAN Bonds, [facility] letter sent: Normal Exam Reading location: [place] OVERALL STUDY BIRADS: Category 1: Negative Trupti Mejia MD [facility] MAMMO ORDERABLES Final Re sult from Last [...] Agents on File Name Relationship Healthcare Agent [facility] Communication [facility] POA Care Teams Child Custody Evaluator Relationship Specialty Start Date End Date Jaylin Severino, GARDENER, FOOD COURT TEAM MEMBER [address] [place] [address] PCP - General Advanced Practice Nurse 12/09/24 Baron Vergraa MD [address] [place] [address] Consulting Physician Pulmonary Disease 06/26/23
--- OUTSIDE RECORDS SUMMARY | 2025-01-24 13:49 | XMS_ITS | Patient Health Record ---
Author Organization [facility] Address [address] [place] [address] Care Team Providers Care High Pressure Kettle Operator Name Role Phone Alona Vaughn Primary Care Provider Allergies Allergen (clinical drug ingredient) Drug/Non Drug [...] Duration) Notes Start Date End Date Status LORazepam 1 MG 1 tablet Orally Once a day; Duration: 30 days As needed at bedtime for sleep induction Active Triamterene-HCTZ 37.5-25 MG 1 tablet in the morning Orally Once a day PCP Unknown Benztropine Mesylate 0.5 MG 1 tablet at bedtime Orally Once a day; Duration: 60 days compliance packs please Active Irbesartan-hydroCHLO ROthiazide 150-12.5 MG 1 tablet Orally Once a day PCP Unknown DULoxetine HCl 60 MG 1 capsule every morning Orally twice a day; Duration: 60 days compliance packs please Active Levothyroxine Sodium 50 MCG 1 tablet in the morning on an empty stomach Orally Once a day PCP Unknown lamoTRIgine 100 MG 1 and 1/2 tablet in morning Orally Once a day; Duration: 60 days Active Baclofen 20 MG 1 tablet Administer without regards to meals as needed Orally Twice a day PCP Unknown traZODone HCl 150 MG 1 tablet at bedtime Orally Once a day; Duration: 60 days compliance packs please Active Benzonatate 100 MG 1 capsule as needed Orally Three times a day; Duration: 7 days Unknown Abilify Maintena 400 MG as directed Intramuscular once; Duration: 28 days compliance packs please Active metFORMIN HCl 1000 mg BID Acti ve Advair Diskus Active DULoxetine HCl 30 MG 1 capsule in the evening Orally Once a day; Duration: 60 days 06/11/2024 Active DULoxetine HCl 30 MG 1 capsule every morning Orally Once a day; Duration: 7 days Active Omeprazole 40 MG 1 capsule 30 [...] no other street drugs no ETOH/tobacco/ cannabis/ tried cocaine in the past [...] , no other street drugs no ETOH/tobacco/ cannabis crack cocaine in the past , no other street drugs no ETOH/tobacco/ cannabis crack cocaine in the past , no other street drugs no ETOH/tobacco/ cannabis crack cocaine in the past , no other street drugs no ETOH/tobacco/ cannabis crack cocaine in the past , no other street drugs no ETOH/tobacco/ cannabis/ t ried cocaine in the past , no other street drugs Problems Problem Type SNOMED Code ICD Code Onset Dates Problem Status W/U Status Risk Notes Problem Morbid obesity (disorder) (447021115) Morbid (severe) obesity due to excess calories (E66.01) Active confirmed Problem Bipolar 1 disorder (157703332) Bipolar 1 disorder (F31.9) Active confirmed Problem Anxiety state (427707527) Acute anxiety (F41.9) Active confirmed Vital Signs Heart Rate 88 /min 01/10/2025 Temperature 98.4 degrees Fahrenheit 01/10/2025 Respiratory Rate 17 /min 01/10/2025 Blood pressure diastolic 82 mm Hg 01/10/2025 Oximetry 96 % 01/10/2025 Height 62 in 10/18/2024 Blood pressure systolic 128 mm Hg 01/10/2025 Weight 272.2 lbs 01/10/2025 BMI 48.87 kg/m2 10/18/2024 Encounters Encounter Location Date Provider Diagnosis [address] [place] [address] 02/06/2024 Alona Mindoro Bipolar 1 disorder F31.[address] [place] [address] 03/06/2024 Alona Roderick Bipolar 1 disorder F31.9 [facility] [address] [address] 03/07/2024 Alona Roderick Bipolar 1 disorder F31.[address] [place] [address] 04/05/2024 Alona Roderick Bipolar 1 disorder F31.9 [facility] [address] [place] [address] 04/10/2024 Alona Roderick Bipolar 1 disorder F31.[address] [place] [address] 05/03/2024 Alona Roderick Bipolar 1 disorder F31.[address] [place] [address] 06/05/2024 Alona Roderick Bipolar 1 disorder F31.9 [facility] [address] [place] [address] 06/11/2024 Alona Mindoro Bipolar 1 disorder F31.[address] [place] [address] 07/26/2024 Alona Mindoro Bipolar 1 disorder F31.[address] [place] [address] 08/23/2024 Alona Mindoro Bipolar 1 disorder F31.9 [facility] [address] [place] [address] 09/12/2024 Alona Mindoro Bipolar 1 disorder F31.9 and Acute anxiety F41.[address] [place] [address] 09/20/2024 Alona Mindoro Bipolar 1 disorder F31.[address] [place] [address] 10/18/2024 Alona Mindoro Bipolar 1 disorder F31.9 [facility] [address] [place] [address] 11/13/2024 Alona Roderick Bipolar 1 disorder F31.9 and Acute anxiety F41.[address] [place] [address] 11/15/2024 Alona Roderick Bipolar 1 disorder F31.[address] [place] [address] 12/13/2024 Alona Roderick Bipolar 1 disorder F31.9 [facility] [address] [place] [address] 12/17/2024 Alona Mindoro Bipolar 1 disorder F31.9 and Acute anxiety F41.[address] [place] [address] 01/10/2025 Alona Roderick Bipolar disorder F31.9 [facility] [address] [place] [address] 01/16/2025 Alona Roderick Bipolar 1 disorder F31.9 and Acute anxiety F41.9 [facility] [address] [place] [address] 09/12/2024 Alona Roderick [facility] [address] [place] [address] 03/06/2024 Alona Mindoro [facility] [address] [place] [address] 03/08/2024 Alona Roderick Bipolar 1 disorder F31.9 [facility] [address] [place] [address] 03/08/2024 Alona Mindoro [address] [address] 04/05/2024 Alona Mindoro [address] [place] [address] 04/29/2024 Alona Prestons [facility] [address] [place] [address] 05/31/2024 Alona Roderick Bipolar 1 disorder F31.9 [facility] [address] [place] [address] 06/17/2024 Alona Prestons [facility] [address] [place] [address] 07/30/2024 Alona Mindoro [address] [place] [address] 11/08/2024 Alona Mindoro Bipolar 1 disorder F31.9 and Acute anxiety F41.9 Assessments Encounter Date Diagnosis (ICD Code) Assessment Notes Treatment Notes Treatment Clinical Notes Section Notes 02/06/2024 Bipolar 1 disorder (ICD-10 - F31.9) 03/06/2024 Bipolar 1 disorder (ICD-10 - F31.9) 03/07/2024 Bipolar 1 disorder (ICD-10 - F31.9) compliance packs. Continue: duloxetine 60 mg and 30 mg Q AM Aripiprazole Maintenna 400mg IMQ 30 day next due trazadone 100mg QHS (sleep) benztropine 0.5 mg QHS (side effects restless legs) start lamotrigine titration today Discussed benefits, side effects and risks including rare but life threatening skin rash. Discussed signs of rash, instructed to stop meds and call if any rash appears. Discussed need to slowly titrate up medication. Discussed need to call for instruction is 4 or more days of lamotrigine dose is missed. Asked NG RN to have client sign NICOLE for Dr. Estrada with next injection to review screening labs. informed [facility] of dog's demise and asked to check in regarding resources for family__the ground is frozen and they are unable to move the dogs' body 03/08/2024 Bipolar 1 disorder (ICD-10 - F31.9) 04/05/2024 Bipolar 1 disorder (ICD-10 - F31.9) 04/10/2024 Bipolar 1 disorder (ICD-10 - F31.9) 05/03/2024 Bipolar 1 disorder (ICD-10 - F31.9) 05/31/2024 Bipolar 1 disorder (ICD-10 - F31.9) 06/05/2024 Bipolar 1 disorder (ICD-10 - F31.9) 06/11/2024 Bipolar 1 disorder (ICD-10 - F31.9) increased lamotrigine to 150 mg Q AM 07/26/2024 Bipolar 1 disorder (ICD-10 - F31.9) 08/23/2024 Bipolar 1 disorder (ICD-10 - F31.9) 09/12/2024 Bipolar 1 disorder (ICD-10 - F31.9) Increased Cymbalta today. Providing PRN short term lorazepam for current anxiety RT new DX. Discussed respiratory depression, dependence and that this will be a short term agent.PDMP reviewed- no other controlled RX'es at this time. 09/12/2024 Acute anxiety (ICD-10 - F41.9) 09/20/2024 Bipolar 1 disorder (ICD-10 - F31.9) 10/18/2024 Bipolar 1 disorder (ICD-10 - F31.9) 11/08/2024 Bipolar 1 disorder (ICD-10 - F31.9) 11/13/2024 Bipolar 1 disorder (ICD-10 - F31.9) Providing PRN short term lorazepam for current anxiety RT new DX. Discussed respiratory depression, dependence and that this will be a short term agent.PDMP reviewed- no other controlled RX'es at this time. 11/15/2024 Bipolar 1 disorder (ICD-10 - F31.9) 12/13/2024 Bipolar 1 disorder (ICD-10 - F31.9) 12/17/2024 Bipolar 1 disorder (ICD-10 - F31.9) Providing PRN short term lorazepam for current anxiety RT new DX. Discussed respiratory depression, dependence and that this will be a short term agent.PDMP reviewed- no other controlled RX'es at this time. 01/10/2025 Bipolar disorder (ICD-10 - F31.9) 01/16/2025 Bipolar 1 disorder (ICD-10 - F31.9) Has RF through mid January. Alnoa agrees to an appt one week after her surgery to check on healing and mood. 01/16/2025 Acute anxiety (ICD-10 - F41.9) 12/17/2024 Acute anxiety (ICD-10 - F41.9) 11/13/2024 Acute anxiety (ICD-10 - F41.9) 11/08/2024 Acute anxiety (ICD-10 - F41.9) 11/13/2024 Other Discussed follo w up in 1 month due to stressor of surgery Plan Of Treatment Next Appt Details Provider Name:Alona Vaughn, 1 04/10/2024 01:40:00 PM, [address] [facility], [place], [address], Insurance Providers Payer Name Payer Address Payer Phone Subscriber Number Group Number Insured Name Patient Relationship to Insured Coverage Start Date Coverage End Date [facility] [address] [place] [address] [id number] Alona Self - patient is the insured 2 4 [place] [address] [place] [address] [id number] Alona Self - patient is the insured 5 5 [facility] [address] [place] [address] [id number] Alona Self - patient is the insured 5 [employer] [address] [place] [address] [id number] MorleyAlona Self - patient is the insured 3 4 [employer] [address] [place] [address] [id number] Security Compliance EngineerAlona Self - patient is the insured 5 5 [employer] [address] [place] [address] [id number] Alona Kemp Self - patient is the insured 5 Medications Administered Medication Instructions Date of Administration Dosage Notes Abilify Maintena 07/11/2022 400 mg Patient tolerated well Abilify Maintena 08/11/2022 400 mg Pt martha w ell. Abilify Maintena 09/08/2022 400 mg Patient tolerated well Abilify Maintena 10/11/2022 400 mg Pt madai ated injection well. Abilify Maintena 11/11/2022 400 mg Abilify Maintena 12/16/2022 400 mg Pt madai ated injection well. Abilify Maintena 01/13/2023 400 mg Pt madai ated injection well. Abilify Maintena 02/10/2023 400 mg Pt madai ated injection well. Abilify Maintena 03/15/2023 400 mg Pt madai ated injection well. Abilify Maintena 04/13/2023 400 mg Pt madai ated injection well. Abilify Maintena 05/11/2023 400 mg Pt madai ated procedure well. Abilify Maintena 06/09/2023 400 mg Abilify Maintena 07/07/2023 400 mg Abilify Maintena 08/04/2023 400 mg AGUILA Brooks , Rachael Fraser 08/04/2023 02:55:16 PM CDT > pt tolerated well. Abilify Maintena 09/08/2023 400 mg Pt martha w ell. Abilify Maintena 10/06/2023 400 mg Pt martha w ell. Abilify Maintena 11/03/2023 400 mg Patient tolerated well Abilify Maintena 12/01/2023 400 mg Pt madai ated well. Abilify Maintena 02/06/2024 400 mg Patient tolerated well Abilify Maintena 03/06/2024 400 mg Abilify Maintena 04/05/2024 400 mg Manufact by [employer] Pt martha well. Abilify Maintena 05/03/2024 400 mg Patient tolerated well Abilify Maintena 06/05/2024 400 mg Krystal Stanford RN 06/05/2024 02:52:12 PM CDT >patient tolerated well. Abilify Maintena 07/26/2024 400 mg Pt martha w ell. Sample used Abilify Maintena 08/23/2024 400 mg Patient tolerated injection well. Abilify Maintena 09/20/2024 400 mg Pt martha w ell. Abilify Maintena 10/18/2024 400 mg Pt madai ated injection well. Abilify Maintena 11/15/2024 400 mg Pt martha w ell. Abilify Maintena 12/13/2024 400 mg Pt martha w ell. Abilify Maintena 01/10/2025 400 mg Chris, Naila N 01/10/2025 02:02:37 PM FIRE PREVENTION FORESTER > PT. MARTHA WELL Medical (General) History Medical History History ICD Code degenerative joint disease hypertension hyperlipidemia Hypothyroidism asthma developmental delay Surgical History Surgery Date(Month/Year) cholecystectomy 2005 1994 Hospitalization History Reason Date(Month/Year) suicidal ideation 12/20 [facility] 05/2022 [facility] (2-3 days). 04/2022 most recent for psychiatric care 2018
--- OUTSIDE RECORDS SUMMARY | 2025-01-24 13:49 | XMS_ITS | Encounter Summary ---
Author Organization [facility] Address [address] [place] [address] Phone Care Team Providers Care Cloth Finishing Range Back Tender Name Role Phone Daja Kern MD Primary Care Provider [phone] Baron Vergara MD Unavailable Jaylin Severino APRN, HEALTH INFORMATION CODER Primary Care Provider Reason for Visit * Reason Comments Medication Refill Encounter Details Date Type Department Care Team (Late st Contact Info) Description 08/02/2021 Refill [facility] - G[facility]enterology - [place] [address] [place] [address] Breanna Joya Randa, PAC [address] [place] [address] Medication Refill Social History Tobacco Use Types [...] PM CDT documented as of this encounter Functional Status * Question Answer Date of Assessment Author Best Eye Response 4-->(E4) spontaneous 08/03/2021 2:15 PM CDT Jaylin Najera RN Best Verbal Response 5-->(V5) oriented 08/03/2021 2:15 PM CDT Jaylin Najera RN Best Motor Response 6-->(M6) obeys commands 08/03/2021 2:15 PM CDT Jaylin Najera RN Sharri Coma Scale Score 15 08/03/2021 2:15 PM CDT Jaylin Najera RN * Question Answer Date of Assessment Author Safety Factors ID band on;upper breann e rails raised x 2;call light in reach;wheels locked;bed in low position 08/04/2021 8:00 PM [facility] Pb Rodriguez RN * Question Answer Date of Assessment Author VTE Prevention/Management sequential compression devices on 08/04/2021 8:00 PM [facility] Pb Rodriguez RN * Question Answer Date of Assessment Author Pain Description aching 08/05/2021 2:14 AM [facility] Pb Rodriguez RN Word Pain Rating: Rest 2 - mild pain 2:14 AM [facility] Pb Rodriguez RN Word Pain Rating: Activity 2 - mild pain 08/05/2021 2:14 AM [facility] Pb Rodriguez RN Pain Management Interventions care clustered;pain management plan reviewed with patient/caregiver;pill ow support provided;quiet environment facilitated;relaxation techniques promoted 08/03/2021 10:40 PM [facility] Monika Redmond RN (0-10) Pain Rating: Activity 0 08/04/2021 3:20 PM CDT Maame Benjamin RN (0-10) Pain Rating: Rest 0 022 3:20 PM CDT Maame Benjamin RN * Question Answer Date of Assessment Author BP 126/82 08/05/2021 7:10 AM CDT Jose Mccord Temp 97.3 08/05/2021 7:10 AM CDT Jose Mccord Pulse 94 08/05/2021 7:10 AM CDT Jose Mccord Resp 18 08/05/2021 7:10 AM CDT Jose Mccord * Question Answer Date of Assessment Author SpO2 97 08/05/2021 7:10 AM CDT Jose Mccord * Question Answer Date of Assessment Author Heart Rate (Monitor) 93 08/04/2021 7:54 AM Christopher Sanchez, MARKET DEVELOPMENT EXECUTIVE * Question Answer Date of Assessment Author [address] 08/05/2021 12:58 PM CDT Rosina Loera RN * Question Answer Date of Assessment Author Urine 2 08/05/2021 12:58 PM [facility] Rosina Loera RN * Fall Risk Indicators Answer Date of Assessment Author 3-->polypharmacy 08/04/2021 8:00 PM CDT Azucena Rodriguez RN * Fall Risk Score Answer Date of Assessment Author 3 08/04/2021 8:00 PM CDT Aryan Rodriguez RN * Question Answer Date of Assessment Author Sensory Perception 4-->no impairment 08/04/2021 8:00 P M CDT Pb Rodriguez RN Friction and Shear 3-->no apparent problem 08/04/2021 8:00 PM [facility] Pb Rodriguez RN Moisture 4-->rarely moist 08/04/2021 8:00 PM CDT Pb Marcum RN Blas Score 21 08/04/2021 8:00 PM [facility] Pb Rodriguez RN Nutrition 3-->adequate 08/04/2021 8:00 PM [facility] Pb Rodriguez RN Activity 3-->walks occasionally 08/04/2021 8:00 PM CDT Pb Rodriguez, RN Mobility 4-->no limitation 08/04/2021 8:00 PM CDT Pb Rodriguez, RN * Question Answer Date of Assessment Author O2 Device None (Room air) 08/04/2021 8:26 PM CDT Angella Brown MARKET DEVELOPMENT EXECUTIVE documented as of this encounter Mental Status * Question Answer Entry Date Author Best Eye Response 4-->(E4) spontaneous 2:15 PM [facility] Jaylin Najera RN Best Verbal Response 5-->(V5) oriented 2:15 PM CDT Jaylin Najera RN Best Motor Response 6-->(M6) obeys commands 08/2021 2:15 PM CDT Jaylin Najera RN [place] Coma Scale Score 15 08/03/2021 2:15 PM CDT Jaylin Najera RN * Question Answer Entry Date Author Safety Factors ID band on;upper breann e rails raised x 2;call light in reach;wheels locked;bed in low position 08/04/2021 8:00 PM CDT Pb Rodriguez RN * Question Answer Entry Date Author VTE Prevention/Management sequential compression devices on 08/04/2021 8:00 PM CDT Pb Rodriguez RN * Question Answer Entry Date Author Pain Description aching 08/05/2021 2:14 AM CDT Pb Rodriguez RN Word Pain Rating: Rest 2 - mild pain 2:14 AM [facility] Pb Rodriguez RN Word Pain Rating: Activity 2 - mild pain 08/05 2:14 AM [facility] Pb Rodriguez RN Pain Management Interventions care clustered;pain management plan reviewed with patient/caregiver;romario w support provided;quiet environment facilitated;relaxation techniques promoted 08/03/2021 10:40 PM [facility] Monika Redmond RN (0-10) Pain Rating: Activity 0 08/04/2021 3:20 PM CDT Maame Benjamin RN (0-10) Pain Rating: Rest 0 022 3:20 PM CDT Maame Benjamin RN * Question Answer Entry Date Author BP 126/82 08/05/2021 7:10 AM CDT Jose Mccord Temp 97.3 08/05/2021 7:10 AM CDT Jose Mccord Pulse 94 08/05/2021 7:10 AM CDT Jose Mccord * Question Answer Entry Date Author SpO2 97 08/05/2021 7:10 AM CDT Jose Mccord * Fall Risk Indicators Answer Entry Date Author 3-->polypharmacy 08/04/2021 8:00 PM CDT Azucena Rodriguez RN * Fall Risk Score Answer Entry Date Author 3 08/04/2021 8:00 PM CDT Aryan Rodriguez RN * Question Answer Entry Date Author Sensory Perception 4-->no impairment 08/04/2021 8:00 P M CDT Pb Rodriguez RN Friction and Shear 3-->no apparent problem 08/04/2021 8:00 PM CDT Pb Rodriguez RN Moisture 4-->rarely moist 08/04/2021 8:00 PM CDT Pb Marcum RN Blas Score 21 08/04/2021 8:00 PM CDT Pb Rodriguez RN Nutrition 3-->adequate 08/04/2021 8:00 PM CDT Pb Rodriguez RN Activity 3-->walks occasionally 08/04/2021 8:00 PM [facility] Pb Rodriguez, RN Mobility 4-->no limitation 08/04/2021 8:00 PM CDT Pb Rodriguez RN * Question Answer Entry Date Author O2 Device None (Room air) 08/04/2021 8:26 PM CDT Angella Brown, MARKET DEVELOPMENT EXECUTIVE documented in this encounter Plan of Treatment Not on file documented as of this encounter Visit Diagnoses Not on filedocumented in this encounter Additional Health Concerns Infection Onset Date Last Indicated Resolved Time COVID - 19 02/08/2022 02/08/2022 02/08/2022 10:2 9 AM LINE ASSEMBLER AIRCRAFT Respiratory Rule-Out 02/08/2022 02/08/2022 023 12:16 AM LINE ASSEMBLER AIRCRAFT Influenza 02/08/2022 02/08/2022 02/15/2022 12:1 9 AM LINE ASSEMBLER AIRCRAFT COVID - 19 Confirmed 02/08/2022 02/08/2022 023 12:16 AM LINE ASSEMBLER AIRCRAFT COVID - 19 06/22/2022 06/22/2022 07/02/2022 12:1 6 AM CDT COVID - 19 09/10/2022 09/10/2022 09/20/2022 12:1 8 AM CDT Respiratory Rule-Out 09/10/2022 09/10/2022 023 12:18 AM CDT Influenza 09/10/2022 09/10/2022 09/17/2022 12:1 7 AM CDT COVID - 19 04/30/2023 04/30/2023 04/30/2023 4:09 PM LINE ASSEMBLER AIRCRAFT COVID - 19 05/21/2023 05/21/2023 05/21/2023 10:3 5 PM CDT COVID - 19 05/30/2023 05/30/2023 05/30/2023 2:08 PM CDT COVID - 19 07/17/2023 07/17/2023 07/17/2023 4:28 PM CDT COVID - 19 08/13/2023 08/13/2023 08/13/2023 3:59 PM CDT COVID - 19 01/29/2024 01/29/2024 01/29/2024 10:1 1 AM LINE ASSEMBLER AIRCRAFT COVID - 19 06/07/2024 06/07/2024 06/07/2024 10:5 8 AM CDT documented as of this encounter Care Teams Cloth Finishing Range Back Tender Relationship Specialty Start Date End Date Daja Kern MD [address] [place] [address] PCP - General Internal Medicine 03/13/15 12/08/24 Jaylin Severino, DRILLING MACHINE RUNNER, HEALTH INFORMATION CODER [address] [place] [address] PCP - General Advanced Practice Nurse 12/09/24 Baron Vergara MD [address] [place] [address] Consulting Physician Pulmonary Disease 06/26/23 documented as of this encounter
--- OUTSIDE RECORDS SUMMARY | 2025-01-24 13:49 | XMS_ITS | Encounter Summary ---
Author Organization [facility] Healthcare Address [address] [place] [address] Care Team Providers Care Electronics Tester Name Role Phone Daja Kren MD Primary Care Provider [phone] Jaylin Severino NP Primary Care Provider Reason for Visit * Reason Onset Date Comments PMC Preprocedure 09/22/2023 Encounter Details Date Type Department Care Team (Late st Contact Info) Description 09/22/2023 Telephone [facility] [address] [facility] [address] [place] [address] Katrina Wilkes MD [address] [facility] [address] [place], [place] [id number] PMC Preprocedure Social History Tobacco Use Types Packs/Day [...] on file Legal Sex Female 6:59 AM ACADEMIC COUNSELOR Gender Identity Not on file Sexual Orientation Not on file documented as of this encounter Plan of Treatment Upcoming Encounters Date Type Department Care Team (Latest Contact Info) Description 01/28/2025 2:30 PM ACADEMIC COUNSELOR Hospital Encounter [facility] [address] [place] [address] Erin Baron MD [address] [place] [address] 01/28/2025 2:30 PM ACADEMIC COUNSELOR Anesthesia Event [facility] [address] [place] [id number] Germaine Magallon, FACILITY REHAB DIRECTOR [address] [facility] [phone] [place] [address] 01/28/2025 2:30 PM ACADEMIC COUNSELOR - 01/28/2025 5:24 PM ACADEMIC COUNSELOR Surgery [facility] [address] [place] [id number] Erin Baron MD [address] [place] [address] XI HYSTERECTOMY - LAPAROSCOPIC ROBOTIC ASSISTED WITH POSSIBLE PELVIC WASHINGS Scheduled Procedures Name Priority Associated Diagnoses Date/Ti me XI HYSTERECTOMY - LAPAROSCOP IC ROBOTIC ASSISTED Endometrial cancer 01/28/2025 2:30 PM ACADEMIC COUNSELOR XI SALPINGO/OOPHORECTOMY - LAPAROSCOPIC ROBOTIC ASSISTED Endometrial cancer 01/28/2025 2:30 PM ACADEMIC COUNSELOR XI ROBOTIC SENTINEL LYMPH NODE Endometrial cancer 01/28/2025 2:30 PM ACADEMIC COUNSELOR documented as of this encounter Goals Goal [...] on filedocumented in this encounter Care Teams Electronics Tester Relationship Specialty Start Date End Date Daja Kern MD [address] [place] [address] PCP - General 09/10/19 08/06/24 Jaylin Severino NP [address] [place] [address] PCP - General Nurse Practitioner 08/07/24 documented as of this encounter
--- OUTSIDE RECORDS SUMMARY | 2025-01-24 13:49 | XMS_ITS ---
Author Organization [facility] Address [address] [place] [address] Care Team Providers Care Cafeteria Or Lunchroom Checker Name Role Phone Jaylin Severino NP Primary Care Provider Active Problems Patient Care Coordination No te [...] the findings. She has established with a metal spinner Stephan Wolfe and planned for TTE 10/2024. Discussed with patient safest path towards surgery is to finish this cardiac evaluation for safe surgical and anesthesia planning Plan - patient filled out records release form for metal spinner records, asked her to have TTE report [...] consented for RA-TL, BSO, SLNB ([place] Medicaid, Training Administrator proc, blood) --fellow to [id number] --ED precautions discussed Assessment & Plan (09/25/2024 [...] 05/07 Assessment & Plan (03/25/2024 4:39 PM RISK ADJUSTMENT SPECIALIST): - patient reports 7 years of amenorrhea and one episode of vaginal bleeding in January resolved with IV meds - has had history of AUB, with thickened EMS on TVUS and subsequent normal Embx some years ago - discussed recommendation for return visit with TVUS and possible embx - patient concerned with pain control, plan for 1x toradol 10mg PO for her to belt picker at pharmacy and bring to appt, she will have someone with her to drive her (case loader operator), and ativan PO in clinic if embx [...] infections Assessment & Plan (03/25/2024 4:38 PM RISK ADJUSTMENT SPECIALIST): - + hyphae and buds on wet prep - diflucan 150mg x2 sent to preferred pharmacy with instructions on repeat dose Cervical cancer screening 03/25/2024 Overview (04/15/2024): 03/25/2024 NILM/HPV neg, next due 02/2029. Morbid obesity 11/18/2011 Overview (06/03/2016): Obesity Hypersomnia 11/18/2011 Overview (06/03/2016): Hypersomnia Obstructive sleep apnea syndrome in adult 2011 Overview (06/03/2016): Obstructive sleep apnea syndrome in adult Current Treatment and Therapy Plans No current plan information found. Past Treatment and Therapy Plans No past plan information found. Lifetime Dose Tracking * Chemical Lifetime Dose Automatic Entry Manual Entr y Fluoro Time 0.8 minutes 0.8 minutes 0 minutes Air kerma at the reference point (Ka,r) 53.83 mGy 5 3.83 mGy 0 mGy Resolved Problems Problem Noted Date Diagnosed Date Resolved Date Strain of calf muscle 02/22/20202024 Hay fever 09/08/2011 04/15/2024 Cough 09/08/2011 04/15/2024 Sinusitis 09/08/2011 04/15/2024 Allergic rhinitis due to pollen 09/08/2011 04/15/2024 Chronic infection of sinus 09/08/2011 0 04/15/2024
[2025-01-24 14:04] LABS: EDUAAPPEAR Clear; EDUABILI Negative (Negative); EDUABLOOD Trace (Negative); EDUACOLOR1 Yellow; EDUAGLUCOSE Negative (Negative); EDUAKETONE Negative (Negative); EDUALEUKO 1+ (Negative); EDUANITRATE Negative (Negative); EDUAPH 7.0; EDUAPROTEIN Negative (Negative); EDUASPGRAVITY 1.010; EDUAUROBILI 0.2
--- NOTE | 2025-01-24 14:25 | ED.FEMALEGU ---
HPI - Female Genitourinary General Chief complaint: Urogenital-Female Stated complaint: Bladder infection Time Seen by Provider: 01/24/25 14:25 Source: patient Mode of arrival: ambulatory Limitations: no limitations History of Present Illness HPI Narrative: 54-year-old female presents with complaint of urinary frequency, urgency, dysuria for 1 week. Afebrile. Positive nausea. Patient scheduled for hysterectomy January 29. All systems reviewed and negative except as noted above. Related Data Home Medications ?Medication ?Instructions ?Recorded ?Confirmed ?Last Taken ?Type levothyroxine 50 mcg tablet 50 mcg PO DAILY 05/10/19 11/28/23 Unknown History simvastatin 10 mg tablet 10 mg PO DAILY 05/10/19 11/28/23 Unknown History trazodone 100 mg tablet 100 mg PO HS 05/10/19 11/28/23 Unknown History triamterene 37.5 1 tablet PO QAM 05/10/19 11/28/23 Unknown History mg-hydrochlorothiazide 25 mg tablet duloxetine 60 mg capsule,delayed 60 mg PO DAILY 07/02/21 11/28/23 Unknown History release (Cymbalta) omeprazole 40 mg capsule,delayed 40 mg PO DAILY 07/02/21 11/28/23 Unknown History release aripiprazole 400 mg intramuscular 400 mg IM MONTHLY 05/10/23 11/28/23 Unknown History suspension,extended release (Abilify Maintena) benztropine 0.5 mg tablet 0.5 mg PO DAILY 05/10/23 11/28/23 Unknown History gabapentin 600 mg tablet 600 mg PO TID 05/10/23 11/28/23 Unknown History metformin 500 mg tablet,extended 500 mg PO DAILY 05/10/23 11/28/23 Unknown History release 24 hr tizanidine 4 mg tablet 4 mg PO TID PRN Muscle Spasm 05/10/23 11/28/23 Unknown History metformin 500 mg tablet,extended mg PO 11/28/23 11/28/23 Unknown History release 24 hr Allergies Allergy/AdvReac Type Severity Reaction Status Date / Time Sulfa (Sulfonamide Allergy Unknown Hives / Verified 01/24/25 13:48 Antibiotics) Red Face PMFSH Past Medical History Medical History Arthritis Bipolar 1 disorder Chronic low back pain Depression GERD (gastroesophageal reflux disease) Hyperlipidemia Hypertension Hypothyroidism UTI (urinary tract infection) Vaginal yeast infection Surgical History Surgical History History of cholecystectomy Previous section Social History Social History Smoking status: Former smoker Living arrangements: with family Gender identity (if verbalized by the patient): Female Comments At time of signature, agree with nursing past medical, surgical, social and family history. There is no relevant family history pertinent to the presenting complaint. Exam Narrative: GENERAL: This is a well-nourished, well-developed patient, in no apparent distress. HEAD: normocephalic, atraumatic. EYES: PERRL. Sclera clear/white. Vision is grossly intact. EARS: External ears normal NOSE: External nose normal NECK: Neck supple, non-tender without lymphadenopathy, masses or thyromegaly. CARDIOVASCULAR: Regular rate and rhythm without murmurs, gallops, or rubs. RESPIRATORY: Clear to auscultation. Breath sounds equal bilaterally. No wheezes, rales, or rhonchi. SKIN: warm, Dry, intact with no suspicious lesions or rash, good texture and turgor. NEURO: awake, alert, and oriented to person, place and time. There were no obvious focal neurologic abnormalities. EXTREMITIES: No joint tenderness, effusion, or edema noted. Course Course Level of Care: Express Care Visit Vital Signs Vital signs: Vital Signs Temperature 36.6 C 01/24/25 13:49 Pulse Rate 89 01/24/25 13:49 Respiratory Rate 16 01/24/25 13:49 Blood Pressure 144/80 H 01/24/25 13:49 Pulse Oximetry 97 01/24/25 13:49 Oxygen Delivery Room Air 01/24/25 13:49 Temperature 36.6 C 01/24/25 13:49 Pulse Rate 89 01/24/25 13:49 Respiratory Rate 16 01/24/25 13:49 Blood Pressure 144/80 H 01/24/25 13:49 Pulse Oximetry 97 01/24/25 13:49 Oxygen Delivery Room Air 01/24/25 13:49 Reviewed MDM - Female Genitourinary MDM Narrative Medical decision making narrative: urinalysis 1+ leukocytes, trace blood. Will treat with antibiotic, recommend patient inform her surgeon she is taking antibiotic for UTI. Patient is well-appearing, nontoxic. Lab Data Labs: Lab Results 01/24/25 Range/Units 14:01 POC Urine Color Yellow POC Urine Clarity Clear POC Urine pH 7.0 POC Ur Specif Phelps 1.010 POC Urine Protein Negative (Negative) POC Ur Glucose (UA) Negative (Negative) POC Urine Ketones Negative (Negative) POC Urine Blood Trace (Negative) POC Urine Nitrite Negative (Negative) POC Urine Bilirubin Negative (Negative) POC Urine Urobilinogen 0.2 POC U Leukocyte Esteras 1+ (Negative) Discharge Plan Discharge Clinical Impression: Urinary tract infection Patient Disposition: Home Condition: Stable Instructions: Antibiotic Form, Urinary Tract Infection in Women (ED) Additional Instructions: Take antibiotic as prescribed until gone. Drink at least 64 oz water a day. Inform your surgeon that you are taking an antibiotic to treat a urinary tract infection prior to your surgery. Patient Language: Arabic Prescriptions: New amoxicillin-pot clavulanate [Augmentin] 500-125 mg tablet 1 tablet PO BID 5 Days Qty: 10 0RF No Action cefuroxime axetil 500 mg tablet 500 mg PO Q12H Qty: 14 0RF levothyroxine 50 mcg Tablet 50 mcg PO DAILY simvastatin 10 mg Tablet 10 mg PO DAILY trazodone 100 mg Tablet 100 mg PO HS triamterene-hydrochlorothiazid 37.5-25 mg Tablet 1 tablet PO QAM omeprazole 40 mg Capsule,Delayed Release(Dr/Ec) 40 mg PO DAILY duloxetine [Cymbalta] 60 mg Capsule,Delayed Release(Dr/Ec) 60 mg PO DAILY tizanidine 4 mg tablet 4 mg PO TID PRN (Reason: Muscle Spasm) metformin 500 mg tablet extended release 24 hr 500 mg PO DAILY benztropine 0.5 mg tablet 0.5 mg PO DAILY gabapentin 600 mg tablet 600 mg PO TID Abilify Maintena 400 mg suspension,extended rel recon 400 mg IM MONTHLY metformin 500 mg tablet extended release 24 hr PO Follow-up/Referrals: Mere,Jaylin Mares APRN [Primary Care Provider, Unknown] Time of Disposition: 14:33
== END 2025-01-24 14:38 | disposition home or self-care (01) ==
PROVIDERS: Emergency Provider Nurse Practitioner Family; PCP Nurse Practitioner Family
DX: N39.0 Urinary tract infection, site not specified (principal); I10 Essential (primary) hypertension; E03.9 Hypothyroidism, unspecified; E78.5 Hyperlipidemia, unspecified; K21.9 Gastro-esophageal reflux disease without esophagitis; M19.90 Unspecified osteoarthritis, unspecified site; F31.9 Bipolar disorder, unspecified; Z87.891 Personal history of nicotine dependence
CPT/HCPCS: 81003; 87077; 87086; 87186; 99213; G0463